=== PATIENT | female | born 1950 | race Caucasian/White ===

== ENCOUNTER → 2017-12-23 12:04 | Outpatient (CLI) | payer MEDICARE, OTHER, SELFPAY ==
--- NOTE | 2017-12-23 12:19 | CT_ITS ---
STUDY: CT ABDOMEN AND PELVIS WITHOUT CONTRAST REASON FOR EXAM: Female, 67 years old. History of hematuria and kidney stones. RADIATION DOSAGE (If Supplied By Facility): CTDIvol = ( 24.18 ) mGy, DLP = ( 1256.43 ) mGycm TECHNIQUE: Transaxial images were obtained from the dome of the diaphragm to the symphysis pubis without oral contrast, and without intravenous contrast. Sagittal and coronal images were reconstructed. Individualized dose optimization techniques were used for this CT. COMPARISON: None. FINDINGS: Focal scarring with bronchiectasis along the posterior medial aspect of the right lower lobe. The visualized portions of the heart are within normal limits. Normal liver. There are surgical clips in the gallbladder fossa consistent with a prior cholecystectomy. Normal spleen. Normal pancreas. There is a small, circumscribed, smooth, low attenuation right adrenal mass, consistent with an adrenal adenoma. This measures 1.2 cm. Normal left adrenal gland. Normal right kidney. Normal left kidney. Normal visualized stomach. Normal small intestine. There are multiple colonic diverticula consistent with diverticulosis. The appendix is visualized and appears normal. There is diffuse atherosclerotic calcification of the abdominal aorta and its major visceral branches, without a demonstrated aneurysm. Normal inferior vena cava. Normal retroperitoneum. Normal urinary bladder. There is absence of the uterus consistent with a prior hysterectomy. There is a small umbilical hernia containing fat. There are mild degenerative changes of the visualized lumbar spine. CT/Abdomen/Pelvis without Cont IMPRESSION: Scarring and bronchiectasis along the posterior medial aspect of the right lower lobe. Findings suggestive by 1.2 cm right adrenal adenoma. Sigmoid diverticulosis. Electronically Signed: Leobardo Mckenzie MD at 12:50 EDT Tel [phone], Service support ,
== END ==
PROVIDERS: Family Provider Nurse Practitioner; PCP Nurse Practitioner; Visit Provider Nurse Practitioner Gerontology
DX: R31.9 Hematuria, unspecified (principal)
CPT/HCPCS: 74176

== ENCOUNTER 2017-12-25 12:31 | Emergency (ER) | payer MEDICARE, OTHER, SELFPAY ==
[2017-12-25 12:33] VITALS: BP 170/63; PULSE 78; RESP 18; TEMP 37.6; O2SAT 91; BMI 42.9
--- NOTE | 2017-12-25 12:58 | RAD_ITS ---
STUDY: X-RAY CHEST REASON FOR EXAM: Female, 67 years old. Dyspnea and shortness of breath TECHNIQUE: Single view of the chest was obtained COMPARISON: 14/11/2016 chest radiograph. FINDINGS: No lung consolidation, pleural effusion or pneumothorax. Cardiac size mildly enlarged. Mild perihilar congestive changes. Apical lung scarring IMPRESSION: Cardiomegaly with mild perihilar congestive changes. Previously noted lung nodule is not well seen on this examination. Electronically Signed: Walter Corbin, at 14:22 EDT Tel , Service support , RAD/Chest 1 View (Portable)
--- NOTE | 2017-12-25 12:59 | EKG12_ITS ---
Test Reason : GEN ILLNESS Blood Pressure : / mmHG Vent. Rate : 072 BPM Atrial Rate : 072 BPM P-R Int : 156 ms QRS Dur : 092 ms QT Int : 424 ms P-R-T Axes : 020 -06 044 degrees QTc Int : 464 ms Normal sinus rhythm Normal ECG Confirmed by ROEL PURDY MD ([id number]), associate entertainment editor RUBI VILLATORO ([id number]) on 12/30/2017 3:06:27 PM Referred By: Yoselin Oconnell Confirmed By:ROEL PURDY MD
[2017-12-25] MEDS: Ketorolac 30 MG/ML Syringe IV (13:27)
[2017-12-25] MEDS: 0.9% Normal Saline 1,000 ML 150 ML IV (13:27)
[2017-12-25] MEDS: Ondansetron 4 MG/2 ML Vial IV (13:27)
[2017-12-25 13:39] LABS: Bacteria 0 SEEN /hpf (None Seen); Mucous, Urine 0 SEEN /hpf (<or=2+); White Blood Cells 0 SEEN /hpf (0-5)
[2017-12-25 13:41] LABS: Color, Urine Yellow (Yellow); Glucose, Dipstick 1000 mg/dl (Normal); Ketone-Dipstick Negative (Negative); Leukocyte Esterase-Dipstick 25 /ul (Negative); Nitrite-Dipstick Negative (Negative); Occult Blood-Urine Negative /ul (Negative); Protein-Dipstick 15 mg/dl (Negative); Urine Bilirubin Dipstick Negative (Negative); Urine Clarity Clear (Clear); Urine Urobilinogen Normal (Normal)
[2017-12-25 13:47] LABS: Carboxyhemoglobin Frac (CO) 2.1 % (0.0-1.5)
[2017-12-25 13:49] LABS: Red Blood Cells-Urine 0-5 SEEN /hpf (0-5); Squamous Epithelial Cells - UA 0-5 SEEN /hpf (5-10)
[2017-12-25 13:53] LABS: Absolute Lymphocyte Count 0.66 X10^3/ul (0.83-4.51); Absolute Neutrophil Count 11.5 X10^3/uL (2.0-7.7); Basophil# 0.02 X10^3/uL; Basophil% 0.2 % (0-1); Hematocrit 41.9 % (37-47); Hemoglobin 13.9 g/dl (12.0-15.0); Lymphocyte # 0.66 X10^3/ul (4.0); Lymphocyte % 5.1 % (19-41); Mean Corp Hgb Conc 33.2 g/gl (32-36); Mean Corpuscular Hgb 29.4 pg (27.0-32.0); Mean Corpuscular Volume 88.6 fL (81-99); Mean Platelet Vol. 11.3 fl (6.2-12.0); Monocyte# 0.72 X10^3/uL; Monocyte% 5.6 % (0-10); Neutrophil # 11.53 X10^3/uL (2.7-7.7); POSITIVE COUNT NO; POSITIVE DIFFERENTIAL NO; POSITIVE MORPHOLOGY NO; Platelet Count 252 K/mm3 (150-450); RBC Distribution Width CV 12.8 % (11.6-14.6); Red Blood Count 4.73 M/mm3 (4.2-5.4); White Blood Count 12.9 K/mm3 (4.4-11.0)
[2017-12-25 13:59] LABS: AST(SGOT) 25 U/L (15-37); Alanine Aminotransfer ALT/SGPT 32 U/L (13-56); Albumin, Serum 3.5 g/dL (3.2-5.0); Alkaline Phosphatase 154 U/L (45-117); Anion Gap 8 (5-15); BUN 12 mg/dL (7-18); BUN/Creat Ratio 16.6 RATIO (10-20); Bilirubin, Direct 0.13 mg/dL (0.00-0.30); Calcium,Total 9.8 mg/dL (8.5-10.1); Chloride 107 mmol/L (98-107); Creatinine, Serum 0.72 mg/dL (0.55-1.02); EST Glomerular Filtration Rate 86 mL/min (>60); Est Glom Filt Rate - Afr Amer 104 mL/min (>60); Estimated Creatinine Clearance 75.75 ml/min; Globulin 4.2 g/dL (2.2-4.2); Glucose 201 mg/dL (74-106); Lipase 126 U/L (73-393); Potassium 3.9 mmol/L (3.5-5.1); Protein, Total 7.7 g/dL (6.4-8.2); Sodium Level 140 mmol/L (136-145)
[2017-12-25 15:06] VITALS: BP 152/68; PULSE 72; RESP 15; O2SAT 95
--- NOTE | 2017-12-25 15:38 | ED.VISSUMM ---
- ER Visit Summary Date of Service: 12/25/17 Chief Complaint: Nausea, vomiting, diarrhea, headache History of Present Illness: The patient is a 67 F recently diagnosed with UTI 3 weeks ago. She is given a 10 day antibiotic. Patient states she has had nausea, vomiting, diarrhea since that time. She also complaining of headache. Patient was seen for follow-up 2 days ago and states her urine was not completely cleared but she was not given a new antibiotic. She was sent for a CT scan. This is reviewed and did not show any acute findings. Patient's mother is also ill and being seen in the. Patient is concerned for carbon monoxide exposure with both of them being ill. She states the fire department did check her house and had normal readings. Past history significant for asthma, COPD, sarcoidosis, diabetes, hypertension, high cholesterol, anxiety, and depression. Physical Examination: Blood pressure is 170/63, temperature 99.7, heart rate 78, respiratory rate 18, pulse ox 91% on room air. Patient sitting upright in bed in no acute distress. She is nontoxic appearing. Head neck examination is unremarkable. Heart is regular rate and rhythm. Lung sounds are diminished at bilateral bases. No wheezes or rhonchi noted. Abdomen is soft and nontender. Hypoactive bowel sounds are noted throughout. Test Results: Portable chest x-ray shows cardiomegaly with mild perihilar congestive changes. EKG is sinus at 72 with no sign of acute ischemia. There is nonspecific diffuse T-wave flattening. Last EKG available for comparison is from 2007. CBC was a white count 12.9 with 89% neutrophils. Chemistry studies reveal glucose of 201, otherwise normal values. LFTs and lipase are normal. Urinalysis shows 0-5 RBCs and 0-5 epithelials. No bacteria noted. Carboxyhemoglobin level is normal at 2.1. Emergency Department Course and Treatment: Patient was given IV fluids, Toradol, and Zofran. On repeat evaluation she reports her headache is significantly improved. Her nausea is also improved. Stool studies were ordered but patient has not been able to provide a sample while here. Repeat vital signs include a blood pressure 152/68 heart rate is 72. Her pulse ox is 95% on room air. At this time patient be discharged with a prescription for Zofran ODT. She is to follow-up with her primary care physician as soon as possible. Treatment Plan: [] Disposition: Discharge Impression: 1. Vomiting, improved 2. Cephalgia, improved This note was generated with [employer] dictation software. It may contain incorrect words, spelling, and punctuation that were not noted in review of the chart prior to signing ED Disposition - Plan for ED Patient: Chief Complaint: Nausea/Vomiting/Diarrhea Referrals: Dafne Jaime [Primary Care Provider] -
--- NOTE | 2017-12-25 15:42 | ED.DCSUM_ITS ---
- ER Visit Summary Date of Service: 12/25/17 Chief Complaint: Nausea, vomiting, diarrhea, headache History of Present Illness: The patient is a 67 F recently diagnosed with UTI 3 weeks ago. She is given a 10 day antibiotic. Patient states she has had nausea , vomiting, diarrhea since that time. She also complaining of headache. Patient was seen for follow-up 2 days ago and states her urine was not completely cleared but she was not given a new antibiotic. She was sent for a CT scan. This is reviewed and did not show any acute findings. Patient's mother is also ill and being seen in the. Patient is concerned for carbon monoxide exposure with both of them being ill. She states the fire department did check her house and had normal readings. Past history significant for asthma, COPD, sarcoidosis, diabetes, hypertension, high cholesterol, anxiety, and depression. Physical Examination: Blood pressure is 170/63, temperature 99.7, heart rate 78 , respiratory rate 18, pulse ox 91% on room air. Patient sitting upright in bed in no acute distress. She is nontoxic appearing. Head neck examination is unremarkable. Heart is regular rate and rhythm. Lung sounds are diminished at bilateral bases. No wheezes or rhonchi noted. Abdomen is soft and nontender. Hypoactive bowel sounds are noted throughout. Test Results: Portable chest x-ray shows cardiomegaly with mild perihilar congestive changes. EKG is sinus at 72 with no sign of acute ischemia. There is nonspecific diffuse T-wave flattening. Last EKG available for comparison is from 2007. CBC was a white count 12.9 with 89% neutrophils. Chemistry studies reveal glucose of 201, otherwise normal values. LFTs and lipase are normal. Urinalysis shows 0-5 RBCs and 0-5 epithelials. No bacteria noted. Carboxyhemoglobin level is normal at 2.1. Emergency Department Course and Treatment: Patient was given IV fluids, Toradol , and Zofran. On repeat evaluation she reports her headache is significantly improved. Her nausea is also improved. Stool studies were ordered but patient has not been able to provide a sample while here. Repeat vital signs include a blood pressure 152/68 heart rate is 72. Her pulse ox is 95% on room air. At this time patient be discharged with a prescription for Zofran ODT. She is to follow-up with her primary care physician as soon as possible. Treatment Plan: [] Disposition: Discharge Impression: 1. Vomiting, improved 2. Cephalgia, improved This note was generated with [employer] dictation software. It may contain incorrect words, spelling, and punctuation that were not noted in review of the chart prior to signing ED Disposition - Plan for ED Patient: Chief Complaint: Nausea/Vomiting/Diarrhea Referrals: Dafne Jaime [Primary Care Provider] -
--- NOTE | 2017-12-25 15:42 | ED.DEP ---
ED Disposition - Plan for ED Patient: Disposition: Home or Assisted Living Chief Complaint: Nausea/Vomiting/Diarrhea Instructions: ED Nausea Vomiting, ED Cephalgia Unspecified Prescriptions: Ondansetron [Zofran Odt] 4 mg PO Q8H PRN PRN #10 tablet PRN Reason: Nausea Referrals: Dafne Jaime [Primary Care Provider] - As soon as possible
== END 2017-12-25 16:12 | disposition home or self-care (01) ==
PROVIDERS: Emergency Provider Emergency Medicine; Family Provider Nurse Practitioner; PCP Nurse Practitioner
DX: R11.2 Nausea with vomiting, unspecified (principal); R51 Headache; R19.7 Diarrhea, unspecified; J44.9 Chronic obstructive pulmonary disease, unspecified; E11.9 Type 2 diabetes mellitus without complications; I10 Essential (primary) hypertension; E78.00 Pure hypercholesterolemia, unspecified; Z79.899 Other long term (current) drug therapy; Z87.891 Personal history of nicotine dependence
CPT/HCPCS: 71045; 80048; 80076; 81001; 82375; 83690; 85025; 93005; 96361; 96374; 96375; 99284; J7030; J2405

== ENCOUNTER 2018-01-22 19:58 | Emergency (ER) | payer MEDICARE, OTHER, SELFPAY ==
[2018-01-22 19:58] VITALS: BP 195/89; PULSE 99; RESP 18; TEMP 37.4; O2SAT 89; BMI 43.2
[2018-01-22 20:06] VITALS: O2SAT 94
--- NOTE | 2018-01-22 20:35 | EKG12_ITS ---
Test Reason : NAUSEA Blood Pressure : / mmHG Vent. Rate : 093 BPM Atrial Rate : 093 BPM P-R Int : 190 ms QRS Dur : 096 ms QT Int : 368 ms P-R-T Axes : 048 -16 027 degrees QTc Int : 457 ms Normal sinus rhythm Normal ECG Confirmed by ROEL PURDY MD ([id number]), design editor RUBI VILLATORO ([id number]) on 01/25/2018 3:09:19 PM Referred By: Confirmed By:ROEL PURDY MD
[2018-01-22] MEDS: 0.9% Normal Saline 1,000 ML 1000 ML IV (20:51)
[2018-01-22] MEDS: Ondansetron 4 MG/2 ML Vial IV (20:52)
[2018-01-22] MEDS: Ketorolac 30 MG/ML Syringe IV (20:52)
[2018-01-22 20:57] LABS: Absolute Lymphocyte Count 0.59 X10^3/ul (0.83-4.51); Absolute Neutrophil Count 8.8 X10^3/uL (2.0-7.7); Basophil# 0.02 X10^3/uL; Basophil% 0.2 % (0-1); Lymphocyte # 0.59 X10^3/ul (4.0); Lymphocyte % 6.1 % (19-41); Mean Corp Hgb Conc 33.3 g/gl (32-36); Mean Corpuscular Hgb 29.8 pg (27.0-32.0); Mean Corpuscular Volume 89.4 fL (81-99); Mean Platelet Vol. 11.1 fl (6.2-12.0); Monocyte# 0.28 X10^3/uL; Monocyte% 2.9 % (0-10); Neutrophil # 8.76 X10^3/uL (2.7-7.7); Neutrophil % 90.8 % (47-70); Platelet Count 233 K/mm3 (150-450); RBC Distribution Width CV 12.8 % (11.6-14.6); RBC Distribution Width SD 41.6 fl (35.1-43.9); White Blood Count 9.7 K/mm3 (4.4-11.0)
[2018-01-22 20:58] LABS: ALB/GLOB Ratio 0.8 RATIO (0.9-2.4); AST(SGOT) 21 U/L (15-37); Alanine Aminotransfer ALT/SGPT 24 U/L (13-56); Albumin, Serum 3.7 g/dL (3.2-5.0); Alkaline Phosphatase 122 U/L (45-117); Anion Gap 8 (5-15); BUN 13 mg/dL (7-18); BUN/Creat Ratio 16.9 RATIO (10-20); Calcium,Total 10.5 mg/dL (8.5-10.1); Chloride 102 mmol/L (98-107); Creatinine, Serum 0.77 mg/dL (0.55-1.02); Differential Indicated SCAN CRITERIA MET; EST Glomerular Filtration Rate 80 mL/min (>60); Est Glom Filt Rate - Afr Amer 97 mL/min (>60); Estimated Creatinine Clearance 68.19 ml/min; Globulin 4.4 g/dL (2.2-4.2); Glucose 203 mg/dL (74-106); Lipase 346 U/L (73-393); POSITIVE COUNT NO; POSITIVE DIFFERENTIAL YES; POSITIVE MORPHOLOGY NO; Potassium 3.8 mmol/L (3.5-5.1); Protein, Total 8.1 g/dL (6.4-8.2); Sodium Level 136 mmol/L (136-145)
[2018-01-22 21:07] LABS: Bacteria 0 SEEN /hpf (None Seen); Mucous, Urine 0 SEEN /hpf (<or=2+); Red Blood Cells-Urine 0 SEEN /hpf (0-5); Squamous Epithelial Cells - UA 0 SEEN /hpf (5-10)
[2018-01-22 21:13] LABS: Color, Urine Yellow (Yellow); Glucose, Dipstick Normal (Normal); Ketone-Dipstick 15 mg/dl (Negative); Leukocyte Esterase-Dipstick Negative /ul (Negative); Nitrite-Dipstick Negative (Negative); Occult Blood-Urine Negative /ul (Negative); Protein-Dipstick Negative (Negative); Specific Gravity, Urine 1.015 (1.002-1.030); Urine Bilirubin Dipstick Negative (Negative); Urine Clarity Clear (Clear); Urine Urobilinogen Normal (Normal)
[2018-01-22 21:35] LABS: White Blood Cells 0-5 SEEN /hpf (0-5)
[2018-01-22 21:37] LABS: Differential Comment SCANNED; Platelet Estimate ADEQUATE (ADEQ)
[2018-01-22 22:00] VITALS: BP 173/77; PULSE 94; RESP 17; O2SAT 95
[2018-01-22] MEDS: hydrALAZINE 20 MG/ML Vial IV (22:07)
[2018-01-22] MEDS: 0.9% Normal Saline 1,000 ML 125 ML IV (22:13)
[2018-01-22 22:14] VITALS: BP 148/71
--- NOTE | 2018-01-22 23:21 | ED.DCSUM_ITS ---
- ER Visit Summary Date of Service: 01/22/18 Chief Complaint: Headache and vomiting History of Present Illness: The patient is a 67 F who states that today when she got up she generally felt poor. She had a generalized headache felt nauseated. She states that she went to bed feeling okay. She notes some chills and some sweats felt like she might have some diarrhea noting very active bowel. The patient states that tonight she began retching. Squad was called. Patient notes her blood pressure is not controlled and she has been working with her doctor for this. Physical Examination: 195/89 temperature 99.4 heart rate of 99 respirations are 18 pulse ox 94% on 2 L Gen: Well-nourished well-developed patient is retching Head: Normocephalic atraumatic Eyes: Perrl EOMI ENT: TMs clear no rhinorrhea moist mucous membranes Neck: Supple no lymphadenopathy no JVD nontender CVS: Regular rate rhythm no murmurs normal S1-S2 Respiratory: No distress clear to auscultation bilaterally chest nontender Abdomen: Soft nontender nondistended normal bowel sounds no masses Back: Nontender Extremity: Nontender no edema Skin: Normal color no rash Neuro: alert orientated ?3 CN II-XII intact normal strength sensation reflexes cerebellar Test Results: CBC chemistries liver lipase negative. EKG sinus rhythm rate of 93 Emergency Department Course and Treatment: Patient received IV fluids Zofran Toradol and hydralazine. Her blood pressure is down. I think the patient is safe for discharge. Her headache is improved. She needs to speak with her doctor regarding blood pressure control. Impression: 1. Headache 2. Hypertension This note was generated with [employer] dictation software. It may contain incorrect words, spelling, and punctuation that were not noted in review of the chart prior to signing ED Disposition - Plan for ED Patient: Disposition: Home or Assisted Living Chief Complaint: Nausea/Vomiting Instructions: ED Hypertension Conf Out Of Control, ED Nausea Vomiting Prescriptions: Ondansetron [Zofran Odt] 4 mg PO Q8H PRN PRN #10 tab PRN Reason: Nausea Referrals: Dafne Jaime [Primary Care Provider] - As soon as possible
[2018-01-23] MEDS: Ondansetron 4 MG/2 ML Vial IV (00:20)
[2018-01-23 00:43] VITALS: BP 164/67; PULSE 82; RESP 18; O2SAT 96
== END 2018-01-23 00:44 | disposition home or self-care (01) ==
PROVIDERS: Emergency Provider Emergency Medicine; Family Provider Nurse Practitioner; PCP Nurse Practitioner
DX: I10 Essential (primary) hypertension (principal); R51 Headache; R11.2 Nausea with vomiting, unspecified; E78.00 Pure hypercholesterolemia, unspecified; E66.9 Obesity, unspecified; Z79.899 Other long term (current) drug therapy
CPT/HCPCS: 80053; 81001; 83690; 84484; 85025; 93005; 96361; 96374; 96375; 99285; J7030; A4216; J2405

== ENCOUNTER → 2018-05-05 06:51 | Outpatient (CLI) | payer MEDICARE, OTHER, SELFPAY ==
--- NOTE | 2018-05-05 12:57 | SPIR ---
Spirometry PFT Testing Spirometry PFT Testing: INTRODUCTION: The patient is a 67-year-old female that presents for spirometry testing secondary to a diagnosis of shortness of breath. Respiratory therapy reports good patient effort. Bronchodilators were used during testing. INTERPRETATION: Forced expiration spirometry demonstrates no evidence of a large airways obstructive ventilatory defect. There was no significant response to aerosolized bronchodilators. Spirograms are of good quality and plateau normally. IMPRESSION: Grossly normal spirometry testing.
== END ==
PROVIDERS: Family Provider Nurse Practitioner; PCP Nurse Practitioner; Visit Provider Nurse Practitioner
DX: J44.9 Chronic obstructive pulmonary disease, unspecified (principal)
CPT/HCPCS: 94060

== ENCOUNTER → 2018-05-06 14:13 | Outpatient (CLI) | payer MEDICARE, OTHER, SELFPAY ==
--- NOTE | 2018-05-06 14:20 | CT_ITS ---
STUDY: LOW DOSE CT LUNG CANCER SCREENING REASON FOR EXAM: Female, 67 years old. OBSTRUCTIVE PULMONARY DISEASE, PT STATED HX OF SMOKING UP TO 4 PACKS PER DAY X40+ years, QUIT [id number] AGO, COPD, ASTHMA RADIATION DOSAGE (If Supplied By Facility): CTDIvol = ( 3.40 ) mGy, DLP = ( 108.91 ) mGycm TECHNIQUE: No contrast was administered. Low dose technique was utilized (average mAS-38 and kVp 120). 1.25 mm axial source images with a slice interval of 1.25-mm were reconstructed in lung windows. 2.5 mm axial source images with a slice interval of 2.5-mm were reconstructed in lung windows. 5.0 mm axial source images with a slice interval of 5.0-mm were reconstructed in soft tissue windows. Nodule measured using lung windows on PACS and/or independent workstation with automated measurement of minimum and maximum diameter. Nodule measurement reported as average diameter rounded to the nearest whole number. Growth is defined as an increase ins size of greater than 1.5 mm. COMPARISON: None. NODULES: There is hyperinflation in both lungs suggesting COPD. There is no demonstrated pleural abnormality. Normal heart and pericardium. Normal mediastinum. Normal hilar regions. Normal unenhanced pulmonary arteries. Normal aorta arch and descending thoracic aorta. There are multi-level degenerative changes of the thoracic spine. There is no demonstrated abnormality of the visualized upper abdomen. CT/Chest without Contrast IMPRESSION: Lung-RADS category 2. Benign finding Recommendation: Routine screening CT scan in one year. IMPORTANT NOTES FOR USE: ACR Lung-RADS Version 1.0 Assessment Categories Release Date: October 23, 2013 Category: Coded 0-4 bases on nodule(s) with highest degree of suspicion. Negative screen is defined as categories 1 and 2; a positive screen is defined as categories 3 and 4. Category 3 and 4A nodules that are unchanged on interval CT should be coded as category 2, and individuals returned to screening in 12 months. Category 4X: Category 3 or 4 nodules with additional imaging findings that increase the suspicion of lung cancer, such as spiculation, GGN that doubles in size in 1 year, enlarged lymph notes, etc. Category Modifiers: S (significant finding unrelated to lung cancer) and C (prior history of treated lung cancer) may be added to the 0-4 Lung-RADS Electronically Signed: Marine Tolliver MD at 8:09 EST Tel , Service support ,
== END ==
PROVIDERS: Family Provider Nurse Practitioner; PCP Nurse Practitioner; Referring Provider Nurse Practitioner; Visit Provider Nurse Practitioner
DX: J44.9 Chronic obstructive pulmonary disease, unspecified (principal)
CPT/HCPCS: 71250

== ENCOUNTER → 2018-07-19 09:53 | Outpatient (CLI) | payer MEDICARE, OTHER, SELFPAY ==
--- NOTE | 2018-07-19 09:57 | BI_ITS ---
MAMMOGRAPHY - BILATERAL SCREENING REASON FOR EXAM: Female, 67 years old. Routine annual screening examination. PERTINENT HISTORY: Non-contributory. TECHNIQUE: Digital bilateral breast eris (3D mammographic acquisition) in the CC and MLO projections. 2-D mediolateral oblique (MLO) and craniocaudad (CC) views of both breasts were obtained. CAD: Full Field Digital Mammography with Computer Added Detection was performed. COMPARISON: Comparison is made with prior examination dated May 05, 2013 and April 12, 2012. FINDINGS: Breast Composition: There are scattered areas of fibroglandular density. There are no dominant masses or suspicious calcifications. Stable 5.5 mm well-defined nodule with a central fatty hilum in the mid slightly outer aspect of the right breast. This most likely represents a small lymph node. No other significant abnormalities are identified. There has been no significant change since the prior study. BI/SCREENING MAMM (CAD), BILAT IMPRESSION: Stable bilateral screening mammogram. Yearly follow-up mammogram recommended. (A) ASSESSMENT CATEGORY: BIRADS Category 2: Benign. A letter regarding these results will be sent to the patient by the facility within 30 days. Approximately 10% of breast cancers are not detected by mammography. A normal mammogram should not delay biopsy of a clinically suspicious abnormality. [id number] Electronically Signed: Leobardo Mckenzie MD at 12:35 EST Tel [phone], Service support ,
--- NOTE | 2018-07-19 10:20 | BD_ITS ---
STUDY: DUAL ENERGY X-RAY ABSORPTIOMETRY / DXA REASON FOR EXAM: Female, 67 years old. The patient is postmenopausal. Loss of height. TECHNIQUE: Bone Mineral Density (BMD) measurements of lumbar spine and bilateral hips were obtained. COMPARISON: Comparison is made with prior study dated April 12, 2012. FINDINGS: Lumbar Spine (L1-L4): g/cm2 (0.997) / T-score (-1.7) / Z-score (-0.1) Findings are suggestive of osteopenia with a moderate fracture risk. Left Femur Total: g/cm2 (1.033) / T-score (0.2) / Z-score (1.4) Left Femoral Neck: g/cm2 (0.930) / T-score (-0.8) / Z-score (0.7) Right Femur Total: g/cm2 (1.108) / T-score (0.8) / Z-score (2.0) Right Femoral Neck: g/cm2 (0.896) / T-score (-1.0) / Z-score (0.5) The T-Scores on the most recent prior examination were: Lumbar Spine (L1-L4): There has been worsening of bone density since the previous examination. Left Femur Total: which represents a worsening of 11%. Right Femur Total: which represents a worsening of 7.8%. BD/Dexa Bone Density Study IMPRESSION: The patient is considered osteopenic as outlined below according to World Arun Organization (WHO) criteria with a moderate fracture risk. There has been worsening of bone density since the previous examination. Reference Information: The T-score is the number of standard deviations above or below the standard which is normal for young adults at their peak bone mineral density. The World Health Organization (WHO) interprets the T-scores as follows: Above -1 Normal bone density Between -1 and -2.5 Osteopenia Equal to / or below -2.5 Osteoporosis As a practical clinical guideline, osteopenia may be graded as follows: Mild -1 through -1.5 Moderate -1.6 through -2.0 Severe -2.1 through -2.4 The Z-score is the number of standard deviations above or below age-matched controls. A Z-score of less than -1.5 would be considered abnormal. References: 1. NIH Osteoporosis and Related Bone Diseases http://www.osteo.org 2. International Society for Clinical Densitometry http://www.iscd.org 3. National Osteoporosis Foundation http://www.nof.org Electronically Signed: Leobardo Mckenzie MD at 11:25 EST Tel [phone], Service support ,
--- OUTSIDE RECORDS SUMMARY | 2018-09-20 11:46 | XMS RPT_ITS | Continuity of Care Document ---
:1950 Author Organization [facility] Address [address] [place] [address] Phone Care Team Providers Name Role Phone Addison LADONNADafne Unavailable Juan Catherine Unavailable Rogelio Granado Unavailable [facility] Unavailable Lindsey Cheek Unavailable Unavailable Gloria Hammer LPN Unavailable Unavailable Yuval Rodas Unavailable Unavailable SHIRA Larsen Unavailable Unavailable Unavailable Unavailable Problems Name Dates Details Acne (L70.9, 706.1) Status: Active Acute sinusitis (J01.90, 461.9) 16-Dec-2010 Status: Active Adrenal adenoma, right (D35.01, 227.0) Status: Active Allergic rhinitis (J30.9, 477.9) Status: Active Anxiety (F41.9, 300.00) Status: Active Anxiety (F41.9, 300.00) Status: Active Back pain (M54.9, 724.5) Comments: hurts with breathing inspirataion, will check ct and labs Status: Active Benign essential hypertension (I10, 401.1) Comments: chronic stable-continue present regimen Status: Active BMI 40.0-44.9, adult (Z68.41, V85.41) Status: Active BMI 45.0-49.9, adult (Z68.42, V85.42) Status: Active Bronchitis, acute (J20.9, 466.0) 15-Jul-2010 Status: Active Chronic obstructive pulmonary disease, unspecified COPD type (J44.9, 496) Comments: had PFTS in past. seen sibilia in past. Adding PFT's and to see Sibilia Status: Active Colon cancer screening (Renamed from Encounter for screening for malignant neoplasm of colon) (Z12.11, V76.51) Status: Active COPD with acute exacerbation (Renamed from Acute exacerbation of chronic obstructive airways disease) (J44.1, 491.21) Status: Active Cough (R05, 786.2) Status: Active Cough (R05, 786.2) Status: Active Cough (R05, 786.2) 25-Sep-2011 Status: Active Current nonsmoker (Z78.9, V49.89) Status: Active Deliveries (Parity) Comments: 3 Status: Active Depression (F32.9, 311) Comments: Broken hearted, Went to behavioral health she will go [facility], for counseling in 3 weeks, mom is home with her tho Status: Active Diabetes mellitus type II, controlled, with no complications (Renamed from Controlled type 2 diabetes mellitus without complication) (E11.9, 250.00) Comments: a1C improving to 6.3, continue current plan, unable to take victoza too expensive so quit taking, only on glyburide has medical mutual, not able to afford byetta. Allergic to Metformin.Has no more jardi ance left. Took mothers januvia for awhile.Adding victoza and glyburideNow sugars improving Status: Active DIABETES MELLITUS WITHOUT MENTION OF COMPLICATION; TYPE II OR UNSPECIFIED TYPE, NOT STATED UNCONTROLLED (E11.9, 250.00) Status: Active Diarrhea (R19.7, 787.91) Comments: BRAT diet take probiotic Status: Active Eczema (L30.9, 692.9) Status: Active Elevated blood pressure reading (R03.0, 796.2) Comments: on prednisone Status: Active Elevated WBC count (D72.829, 288.60) Status: Active Encounter for annual general medical examination with abnormal findings in adult (Z00.01, V70.0) Status: Active Encounter for gynecological examination without abnormal finding (Z01.419, V72.31) Status: Active Encounter for screening mammogram for breast cancer (Z12.31, V76.12) Status: Active Enlarged lymph nodes, unspecified (R59.1, 785.6) Status: Active Family history of aneurysm (Z82.49, V19.8) Status: Active Fatigue (R53.83, 780.79) Comments: Care taking of mother up at night q 2-3 hours feelings of exhaustion but sleep study machine helping Status: Active Folliculitis (L73.9, 704.8) Comments: get antibacterial soap, history of staph try chlorox bath Status: Active Hip pain, right (M25.551, 719.45) Status: Active Hypercalcemia (E83.52, 275.42) Comments: para thormone normal, check D, mammogram in process Jun Status: Active Hypercalcemia (E83.52, 275.42) Status: Active Hypercholesteremia (E78.00, 272.0) Comments: only on statin, not fenofibrate Status: Active Hypertension (I10, 401.9) Comments: stay on metoprolol and HctZ, take irbesartan 2 of 75mg Status: Active Hypoglycemia (E16.2, 251.2) Comments: came into Ov with nausea and not feeling well , BS was 66 was given glucose and IV fluid decreased victoza to .6. Status: Active Hypothyroidism (E03.9, 244.9) Comments: on synthroid Status: Active Low HDL (under 40) (E78.6, 272.5) Status: Active Meralgia paresthetica (G57.10, 355.1) Status: Active Nausea (R11.0, 787.02) Comments: in office BS 66, feeling nauseated, gave dextrose Status: Active Nausea & vomiting (R11.2, 787.01) Comments: suspect from mucus drainage Status: Active Need for prophylactic vaccination and inoculation against influenza (Z23, V04.81) Status: Active Nonsmoker (Z78.9, V49.89) Status: Active Nonsmoker (Z78.9, V49.89) Status: Active Obesity (E66.9, 278.00) Status: Active Osteopenia (M85.80, 733.90) Comments: improved Status: Active Other and unspecified hyperlipidemia (E78.5, 272.4) Status: Active Palpitations (R00.2, 785.1) Comments: doign better think anxiety -- keep working on diet and exercise Status: Active Postmenopausal (Renamed from Postmenopausal status) (Z78.0, V49.81) Status: Active Pregnancies () Comments: 3 Status: Active 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 exacerbation Status: Active Sciatica (M54.30, 724.3) Status: Active screening Status: Active screening Status: Active screening Status: Active Sleep apnea (G47.30, 780.57) Comments: seeing Sibilia to get cpap, quit breathing 109 times and turned blue with nasal cpap improving Status: Active Sleep disorder (G47.9, 780.50) Status: Active Unspecified asthma with (acute) exacerbation (J45.901, 493.92) Status: Active Unspecified Diagnosis Status: Active Unspecified Diagnosis Status: Active Unspecified Diagnosis Status: Active Unspecified Diagnosis Status: Active Unspecified Diagnosis Status: Active Unspecified Diagnosis Status: Active Urinary tract infection in female (N39.0, 599.0) Status: Active Vitamin D deficiency, unspecified (E55.9, 268.9) Comments: taking 2000 bid Status: Active Wheezing (R06.2, 786.07) Status: Active Medications Name Dates Details Albuterol Sulfate (2.5 MG/3ML) 0.083% Inhalation Nebulization Solution 1 (one) Nebulized Soln q 4-6 hours prn for 90 days Refills: 3 Ordered:18-Nov-2016 Dafne Jaime CNP, CNP, Mary E Start : 18-Nov-2016 Active CeleXA 40 MG Oral Tablet 1 (one) Tablet daily for 90 days Quantity: 90 {Tablet} Refills: 3 Ordered:17-May-2018 Dafne Jaime CNP, CNP, Mary E Start : 17-May-2018 Active Desoximetasone 0.05 % External Cream 1 Cream apply q 3 days sparingly prn for 90 days Quantity: 3 {Tube} Refills: 3 Ordered:19-Aug-2016 Dafne Jaime CNP, CNP, Mary E Start : 19-Aug-2016 Active Desoximetasone 0.05 % External Cream 1 Cream apply q 3 days sparingly prn for 90 days Quantity: 3 {Each} Refills: 1 Ordered:19-Aug-2016 Addison DOUGHERTY Dafne BOLDENpatrick DOUGHERTY Dafne Mota Start : 19-Aug-2016 Active FreeStyle Lancets Miscellaneous 1 (one) Misc Misc bid for 0 days Quantity: 180 {Strip} Refills: 3 Ordered:12-Jul-2017 Yuval Rodas Start : 12-Jul-2017 Active FreeStyle Lancets Miscellaneous 1 (one) Misc Misc bid for 0 days Quantity: 180 {QS} Refills: 3 Ordered:12-Jul-2017 Yuval Rodas Start : 12-Jul-2017 Active FreeStyle Lite Device 1 (one) Device Device bid for 0 days Quantity: 1 Kit Refills: 1 Ordered:12-Jul-2017 Yuval Rodas Start : 12-Jul-2017 Active FreeStyle Lite Test In Vitro Strip 1 (one) Strip bid for 0 days Quantity: 180 {Strip} Refills: 3 Ordered:12-Jul-2017 Addison DOUGHERTY Dafne Kriss DOUGHERTY Dafne Mota Start : 12-Jul-2017 Active FreeStyle Lite Test In Vitro Strip 1 (one) Strip bid for 0 days Quantity: 180 {Strip} Refills: 3 Ordered:12-Jul-2017 Addison DOUGHERTY Dafne Kriss DOUGHERTY Dafne Mota Start : 12-Jul-2017 Active GlyBURIDE 5 MG Oral Tablet 2 (two) Tablet BID for 90 days Quantity: 180 {QS} Refills: 3 Ordered:31-Dec-2017 Addison DOUGHERTY Dafne BOLDENpatrick DOUGHERTY Dafne Mota Start : 31-Dec-2017 Active GlyBURIDE 5 MG Oral Tablet 2 (two) Tablet BID for 0 days Quantity: 120 {Tablet} Refills: 6 Ordered:31-Dec-2017 Addison DOUGHERTY Dafne BOLDENpatrick DOUGHERTY Dafne Mota Start : 31-Dec-2017 Active HydroCHLOROthiazide 12.5 MG Oral Capsule 1 (one) Capsule qam for 90 days Quantity: 90 {Capsule} Refills: 3 Ordered:17-May-2018 Addison DOUGHERTY Dafne BOLDENpatrick DOUGHERTY Dafne Mota Start : 17-May-2018 Active Irbesartan 75 MG Oral Tablet 2 (two) Tablet qhs for 90 days Quantity: 90 {Tablet} Refills: 3 Ordered:17-May-2018 Dafne Jaime CNP, CNP, Mary E Start : 17-May-2018 Active Levothyroxine Sodium 150 MCG Oral Tablet 1 (one) Tablet daily for 90 days Quantity: 90 {Tablet} Refills: 3 Ordered:17-May-2018 Addison DOUGHERTY, Dafne Casper CNP Start : 17-May-2018 Active Levothyroxine Sodium 150 MCG Oral Tablet 1 (one) Tablet daily for 90 days Quantity: 90 {QS} Refills: 3 Ordered:17-May-2018 Dafne Jaime CNP, CNP, Mary E Start : 17-May-2018 Active Metoprolol Succinate ER 100 MG Oral Tablet Extended Release 24 Hour 1 (one) Tablet daily for 90 days Quantity: 90 {Tablet} Refills: 3 Ordered:17-May-2018 Dafne Jaime CNP, CNP, Mary E Start : 17-May-2018 Active Qvar 40 MCG/ACT Inhalation Aerosol Solution 2 (two) Puff Puff bid for 0 days Quantity: 1 {Inhaler} Refills: 3 Ordered:17-Feb-2016 Gloria Hammer LPN Start : 17-Feb-2016 Active Simvastatin 40 MG Oral Tablet 1 (one) Tablet daily for 90 days Quantity: 90 {Tablet} Refills: 3 Ordered:17-May-2018 Dafne Jaime CNP, CNP, Mary E Start : 17-May-2018 Active Simvastatin 40 MG Oral Tablet 1 (one) Tablet daily for 0 days Quantity: 90 {Tablet} Refills: 0 Ordered:17-May-2018 Dafne Jaime CNP, CNP, Mary E Start : 17-May-2018 Active Victoza 18 MG/3ML Subcutaneous Solution Pen-injector 0.6 Pre-filled Pen Syringe daily for 90 days Quantity: 1 {Box} Refills: 3 Ordered:17-May-2018 Dafne Jaime CNP, CNP, Mary E Start : 17-May-2018 Active Comments:take 0.6 Victoza 18 MG/3ML Subcutaneous Solution Pen-injector 0.6 Pre-filled Pen Syringe daily for 90 days Quantity: 1 {Box} Refills: 6 Ordered:17-May-2018 Dafne Jaime CNP, CNP, Mary E Start : 17-May-2018 Active Comments:Start 0.6mg x 1 week, then 1.2 x a week, then 1.8 daily Vitamin D3 Super Strength 2000 UNIT Oral Capsule 1 (one) Capsule bid for 90 days Quantity: 120 {Capsule} Refills: 0 Ordered:17-May-2018 Addison DOUGHERTY, Dafne Monterroso CNP, Dafne Mota Start : 17-May-2018 Active Accu-Chek Saira In Vitro Strip uad Strip bid for 0 days Quantity: 180 {Strip} Refills: 3 Ordered:27-Jan-2016 MARKIE Hayden Start : 24-Jan-2016 End : 27-Jan-2016 Inactive Accu-Chek Saira In Vitro Strip uad Strip bid for 0 days Quantity: 180 {QS} Refills: 3 Ordered:27-Jan-2016 MARKIE Hayden Start : 24-Jan-2016 End : 27-Jan-2016 Inactive AMOXIL, 875MG (Oral Tablet) 1 (one) Tablet Twice daily for 0 days Quantity: 28 {Tablet} Refills: 0 Ordered:14-Jun-2006 Belen Pickett Start : 14-Jun-2006 End : 20-Oct-2006 Inactive Atenolol 50 MG Oral Tablet 1 (one) Tablet one in am, 2 in pm for 90 days Quantity: 120 {Tablet} Refills: 3 Ordered:24-Mar-2017 Addison DOUGHERTY, Dafne Monterroso CNP, Dafne Mota Start : 24-Mar-2017 End : 24-Mar-2017 Inactive Atenolol 50 MG Oral Tablet 1 (one) Tablet one in am, 2 in pm for 90 days Quantity: 180 {Tablet} Refills: 3 Ordered:24-Mar-2017 Addison DOUGHERTY, Dafne Monterroso CNP, Dafne Mota Start : 24-Mar-2017 End : 24-Mar-2017 Inactive AUGMENTIN, 875-125MG (Oral Tablet) 1 (one) Tablet bid/PRN for 0 days Quantity: 28 {Tablet} Refills: 0 Ordered:01-Jul-2011 Ivanna Maddox Start : 31-Mar-2011 End : 01-Jul-2011 Inactive AVAPRO, 300MG (Oral Tablet) 1 Tablet Daily for 28 days Quantity: 28 {Tablet(s)} Refills: 0 Ordered:23-May-2007 Dary Solano Start : 23-May-2007 End : 23-May-2007 Inactive AVELOX, 400MG (Oral Tablet) 1 (one) Tablet Daily for 0 days Quantity: 10 {Tablet} Refills: 0 Ordered:16-Dec-2010 Virgen Real LPN Start : 15-Jul-2010 End : 16-Dec-2010 Inactive Bacitracin Zinc 500 UNIT/GM External Ointment 1 (one) Application Application daily as directed for 0 days Quantity: 5 {Applicator} Refills: 0 Ordered:19-Jan-2018 MARKIE Hayden Start : 12-Jul-2017 End : 19-Jan-2018 Inactive CEFADROXIL, 500MG (Oral Capsule) 1 (one) Capsule bid for 10 days Quantity: 20 {Capsule} Refills: 0 Ordered:15-Jun-2014 Tgezraalcon [employer]OOK SERVER, Dafne Kriss SPORTS BOOK SERVER, Radha Start : 15-Jun-2014 End : 25-Jun-2014 Inactive Cheratussin AC 100-10 MG/5ML Oral Solution 1 (one) Solution Solution 1-2 tsp every 6 hours prn for 0 days Quantity: 8 {Fluid_Ounce} Refills: 0 Ordered:27-Jan-2016 MARKIE Hayden Start : 19-Aug-2015 End : 27-Jan-2016 Inactive Comments:eight CIPRO, 500MG (Oral Tablet) 1 (one) Tablet bid for 0 days Quantity: 28 {Tablet} Refills: 0 Ordered:16-Dec-2010 Virgen Real LPN Start : 12-May-2010 End : 16-Dec-2010 Inactive CRESTOR, 10MG (Oral Tablet) 1 Tablet Daily for 28 days Quantity: 28 {Tablet} Refills: 0 Ordered:23-May-2007 Dary Solano Start : 23-May-2007 End : 23-May-2007 Inactive Comments: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 CRESTOR, 10MG (Oral Tablet) 1 tab Tablet qd for 0 days Refills: 0 Ordered:27-Jul-2008 Ivanna Maddox End : 27-Jul-2008 Inactive FENOFIBRATE MICRONIZED, 134MG (Oral Capsule) 1 qd for 0 days Refills: 0 Ordered:16-Dec-2010 Virgen Real LPN End : 16-Dec-2010 Inactive FLEXERIL, 10MG (Oral Tablet) 1 Tablet qhs prn for 0 days Quantity: 30 {Tablet} Refills: 0 Ordered:16-Dec-2010 Virgen Real LPN Start : 12-May-2010 End : 16-Dec-2010 Inactive FreeStyle Unistick II Lancets Miscellaneous 1 (one) Misc Misc bid for 0 days Quantity: 100 {Strip} Refills: 3 Ordered:19-Jan-2018 MARKIE Hayden Start : 27-Jan-2016 End : 19-Jan-2018 Inactive Irbesartan 75 MG Oral Tablet 1 (one) Tablet bid for 0 days Quantity: 180 {Tablet} Refills: 3 Ordered:09-Mar-2018 Addison DOUGHERTY, Dafne Monterroso CNP, Dafne Mota Start : 02-Feb-2018 End : 09-Mar-2018 Inactive Jardiance 10 MG Oral Tablet 1 (one) Tablet Tablet qam for 0 days Quantity: 30 {Tablet} Refills: 3 Ordered:31-Dec-2017 Addison DOUGHERTY, Dafne Monterroso CNP, Dafne Mota Start : 13-Oct-2017 End : 31-Dec-2017 Inactive Levaquin 500 MG Oral Tablet 1 Tablet qd for 10 days Quantity: 10 {Tablet} Refills: 0 Ordered:18-Nov-2016 Addison DOUGHERTY, Dafne Monterroso CNP, Dafne Mota Start : 18-Nov-2016 End : 28-Nov-2016 Inactive LEXAPRO, 10MG (Oral Tablet) 1 Tablet Daily for 0 days Quantity: 90 {Tablet} Refills: 3 Ordered:20-Oct-2006 Jackie Christina DO Start : 20-Oct-2006 End : 11-Apr-2007 Inactive Losartan Potassium 100 MG Oral Tablet 1 (one) Tablet daily for 0 days Quantity: 30 {Tablet} Refills: 3 Ordered:19-Jan-2018 MARKIE Hayden Start : 13-Oct-2017 End : 19-Jan-2018 Inactive MUCINEX, 600MG (Oral Tablet Extended Release 12 Hour) 1 (one) Tablet ER 12HR BID for 0 days Refills: 0 Ordered:19-Nov-2009 Ivanna Maddox Start : 19-Apr-2009 Inactive Nitrofurantoin Monohyd Macro 100 MG Oral Capsule 1 (one) Capsule PO BID for 10 days Quantity: 20 {Capsule} Refills: 0 Ordered:13-Dec-2017 Yoselin Oconnell Start : 13-Dec-2017 End : 23-Dec-2017 Inactive Ocuflox 0.3 % Ophthalmic Solution 1-2 Metric Drop Metric Drop Q 2hours x 2 days, and then QID x 5 days for 0 days Quantity: 1 {Bottle} Refills: 0 Ordered:19-Jan-2018 MARKIE Hayden Start : 09-Dec-2017 End : 19-Jan-2018 Inactive Pen [place] 31G X 6 MM Miscellaneous uad Misc bid for 90 days Refills: 3 Ordered:13-Oct-2017 Gloria Hammer LPN Start : 22-Jan-2016 End : 13-Oct-2017 Inactive PREDNISOLONE ACETATE, 1% (Ophthalmic Suspension) 2 (two) Drop(s) qid for 0 days Quantity: 1 {Tube(s)} Refills: 0 Ordered:25-Sep-2011 Virgen Real LPN Start : 28-Jul-2011 End : 25-Sep-2011 Inactive PREDNISONE (NIC), 10MG (Oral Tablet) 1 (one) Tablet Tablet UAD for 10 days Quantity: 20 {Tablet} Refills: 0 Ordered:19-Aug-2015 Addison DOUGHERTY, Dafne Monterroso CNP, Radha Start : 19-Aug-2015 End : 29-Aug-2015 Inactive Comments:2 tablets BID for 2 days1 tablet BID for 4 days1 tablet Qd for 4 days Prodigy Lancing Device Miscellaneous 1 (one) Misc Misc bid for 90 days Refills: 3 Ordered:27-Jan-2016 MARKIE Hayden Start : 22-Jan-2016 End : 27-Jan-2016 Inactive Comments:lancet device Prodigy No Coding Blood Gluc In Vitro Strip 1 (one) Strip Strip bid for 90 days Refills: 3 Ordered:27-Jan-2016 MARKIE Hayden Start : 22-Jan-2016 End : 27-Jan-2016 Inactive Prodigy Twist Top Lancets 28G Miscellaneous 1 (one) Misc Misc bid for 90 days Refills: 3 Ordered:27-Jan-2016 MARKIE Hayden Start : 22-Jan-2016 End : 27-Jan-2016 Inactive RELENZA DISKHALER, 5MG/BLISTER (Inhalation Aerosol Powder Breath Activated) 2 (two) Aero Pow Br Act Daily for 0 days Quantity: 1 {Aero_Pow_Br_Act} Refills: 0 Ordered:16-Dec-2010 Virgen Real LPN Start : 19-Apr-2009 End : 16-Dec-2010 Inactive Spiriva HandiHaler 18 MCG Inhalation Capsule 1 Capsule daily for 0 days Quantity: 90 {Capsule} Refills: 3 Ordered:27-Jan-2016 MARKIE Hayden Start : 24-Jan-2016 End : 27-Jan-2016 Inactive Spiriva HandiHaler 18 MCG Inhalation Capsule 1 Capsule daily for 90 days Quantity: 90 {Capsule} Refills: 3 Ordered:27-Jan-2016 MARKIE Hayden Start : 24-Jan-2016 End : 27-Jan-2016 Inactive TESSALON, 200MG (Oral Capsule) 1 (one) Capsule TID/PRN for 0 days Quantity: 30 {Capsule} Refills: 0 Ordered:19-Nov-2009 Ivanna Maddox Start : 22-Apr-2009 Inactive TRAZODONE HCL, 50MG (Oral Tablet) 1/2- 1 Tablet at hs prn for 0 days Quantity: 30 {Tablet} Refills: 3 Ordered:01-Jul-2011 Ivanna Maddox Start : 27-Aug-2010 End : 01-Jul-2011 Inactive TRICOR, 145MG (Oral Tablet) 1 tab qd for 0 days Refills: 0 Ordered:23-Oct-2008 Yoselin Larsen LPN End : 23-Oct-2008 Inactive TRICOR, 145MG (Oral Tablet) 1 Tablet daily for 0 days Quantity: 90 {Tablet} Refills: 3 Ordered:03-Feb-2012 Alisha Hanks LPN Start : 24-Aug-2011 End : 03-Feb-2012 Inactive VITAMIN D, [id number] (Oral Capsule) 1 (one) Capsule q week for 0 days Quantity: 12 {Capsule} Refills: 0 Ordered:19-Nov-2009 Ivanna Maddox Start : 19-Aug-2009 Inactive VITAMIN D3, 1000UNIT (Oral Tablet) 1 tab bid for 0 days Refills: 0 Ordered:19-Nov-2009 Kar Maddoxctive WELLBUTRIN XL, 150MG (Oral Tablet Extended Release 24 Hour) 1 Daily for 0 days Refills: 0 Ordered:27-Sep-2006 Anahi Alex DO End : 12-Mar-2006 Inactive Zithromax Z-Nic 250 MG Oral Tablet 1 (one) Tablet TAD for 0 days Quantity: 1 {Package} Refills: 0 Ordered:09-Dec-2017 Yuval Rodas Start : 13-Oct-2017 End : 09-Dec-2017 Inactive ACCU-CHEK (In Vitro Diagnostic Test) BID for 0 days Refills: 0 Ordered:06-Jul-2008 Ivanna Maddox Start : 06-Jul-2008 End : 06-Jul-2008 Discontinued Comments:This order discontinued per [facility]. ALBUTEROL, 90MCG/ACT (Inhalation Aerosol Solution) 2 Twice daily for 0 days Refills: 0 Ordered:27-Apr-2012 Ivanna Maddox End : 27-Apr-2012 Discontinued Comments:This order discontinued per [employer]. AMBIEN, 10MG (Oral Tablet) 1 Daily as needed for 0 days Refills: 0 Ordered:27-Sep-2006 Anahi Alex DO End : 11-Jun-2006 Discontinued Comments:Medication taken as needed. ASPIRIN, 325MG (Oral Tablet) 1 QD for 0 days Refills: 0 Ordered:26-Nov-2014 Ivanna Maddox End : 26-Nov-2014 Discontinued ASPIRIN, 75MG (Oral Tablet Chewable) for 0 days Refills: 0 Ordered:20-Oct-2006 Belen Pickett End : 20-Oct-2006 Discontinued Comments:wrong dose AVAPRO, 300MG (Oral Tablet) 1 tab Tablet qd for 90 days Quantity: 90 {Tablet} Refills: 1 Ordered:02-May-2013 Jackie Christina DO Start : 02-May-2013 End : 02-May-2013 Discontinued Dispense as Written Comments:MARVA DURHAM 10 MCG PEN, 10MCG/0.04ML (Subcutaneous Solution Pen-injector) 1 (one) Solution bid for 90 days Quantity: 3 {pen} Refills: 3 Ordered:27-Nov-2014 Ivanna Maddox Start : 04-Sep-2013 End : 27-Nov-2014 Discontinued BYVEL 5 MCG PEN, 5MCG/0.02ML (Subcutaneous Solution) 1 (one) Solution q 12 hr for 0 days Quantity: 3 {Solution} Refills: 3 Ordered:19-Aug-2009 Jackie Christina DO Start : 19-Aug-2009 End : 19-Aug-2009 Discontinued DIPHENHYDRAMINE HCL, 25MG (Oral Capsule) 1 Capsule qid for 0 days Quantity: 30 {Capsule} Refills: 0 Ordered:18-Mar-2012 Ivanna Maddox Start : 18-Mar-2012 End : 18-Mar-2012 Discontinued EFFEXOR, 75MG (Oral Tablet) 1 Daily for 0 days Refills: 0 Ordered:27-Sep-2006 Abi JHAVERI Anahi End : 12-Mar-2006 Discontinued Ergocalciferol 78636 UNIT Oral Capsule 1 (one) Capsule Capsule twice weekly for 0 days Quantity: 24 {QS} Refills: 0 Ordered:24-Mar-2017 Harman SILVA, Gloria Start : 21-Aug-2016 End : 24-Mar-2017 Discontinued Fenofibrate 160 MG Oral Tablet 1 (one) Tablet daily for 90 days Quantity: 90 {Tablet} Refills: 0 Ordered:10-Dec-2017 Yuval Rodas Start : 18-Oct-2017 End : 10-Dec-2017 Discontinued Fenofibrate 160 MG Oral Tablet 1 (one) Tablet daily for 90 days Quantity: 90 {Tablet} Refills: 3 Ordered:10-Dec-2017 Yuval Rodas Start : 18-Oct-2017 End : 10-Dec-2017 Discontinued Flovent HFA 110 MCG/ACT Inhalation Aerosol 2 Puff bid for 0 days Quantity: 3 {Inhaler} Refills: 2 Ordered:17-Feb-2016 Harman SILVA Gloria Start : 11-Feb-2016 End : 17-Feb-2016 Discontinued Flovent HFA 110 MCG/ACT Inhalation Aerosol 2 Puff bid for 90 days Quantity: 30 {QS} Refills: 3 Ordered:17-Feb-2016 Slanataliia SILVA, Gloria Start : 11-Feb-2016 End : 17-Feb-2016 Discontinued GUAIATUSSIN AC, 100-10MG/5ML (Oral Syrup) 1 Syrup TID prn for 0 days Quantity: 8 {Ounce(s)} Refills: 0 Ordered:18-Mar-2012 Ivanna Maddox Start : 18-Mar-2012 End : 18-Mar-2012 Discontinued Comments:eight ounces Ipratropium-Albuterol 0.5-2.5 (3) MG/3ML Inhalation Solution 1 (one) Solution Solution qid PRN for 0 days Quantity: 90 {QS} Refills: 3 Ordered:13-May-2016 Slarb RPG DEVELOPER, Gloria Start : 13-Feb-2016 End : 13-May-2016 Discontinued IRON, 345MG (PO Cap) for 0 days Refills: 0 Ordered:20-Oct-2006 Belen Pickett End : 20-Oct-2006 Discontinued LEVAQUIN, 500MG (Oral Tablet) 1 Tablet daily for 0 days Quantity: 14 {Tablet} Refills: 0 Ordered:18-Mar-2012 Ivanna Maddox Start : 18-Mar-2012 End : 18-Mar-2012 Discontinued LEVOXYL, 150MCG (Oral Tablet) 1 Tablet daily for 90 days Quantity: 90 {Tablet} Refills: 2 Ordered:01-Nov-2012 Raya Horne Start : 01-Nov-2012 End : 04-Aug-2013 Discontinued Comments:This order discontinued per [employer]. Losartan Potassium 50 MG Oral Tablet 1 (one) Tablet daily for 0 days Quantity: 30 {Tablet} Refills: 6 Ordered:31-Dec-2017 Dafne Jaime CNP, CNP Radha Start : 31-Dec-2017 End : 31-Dec-2017 Discontinued METFORMIN HCL, 500MG (Oral Tablet Extended Release 24 Hour) 3 (three) Tablet ER 24HR qd for 0 days Quantity: 90 {Tablet_ER_24HR} Refills: 3 Ordered:11-Jun-2006 Belen Pickett Start : 11-Jun-2006 End : 20-Oct-2006 Discontinued Comments:hives NASONEX, 50MCG/ACT (Nasal Suspension) 2 (two) Suspension prn for 0 days Quantity: 1 {Suspension} Refills: 0 Ordered:26-Nov-2014 Ivanna Maddox Start : 02-May-2013 End : 26-Nov-2014 Discontinued NIASPAN, 500MG (Oral Tablet Extended Release) 1 (one) Tablet ER QHS / HS for 0 days Quantity: 30 {Tablet_ER} Refills: 3 Ordered:19-Jan-2007 Ivanna Maddox Start : 19-Jan-2007 End : 18-Jul-2007 Discontinued PredniSONE 10 MG Oral Tablet 3 pills for 1 week Tablet 2 pills for 1 week 1 pill for 1 week for 0 days Quantity: 42 {Tablet} Refills: 0 Ordered:24-Mar-2017 Gloria Hammer LPN Start : 18-Nov-2016 End : 24-Mar-2017 Discontinued Comments:take with food in am PREDNISONE, 20MG (Oral Tablet) tad Tablet tad for 0 days Quantity: 20 {Tablet} Refills: 0 Ordered:26-Nov-2014 Ivanna Maddox Start : 31-Jul-2014 End : 26-Nov-2014 Discontinued Comments:2 tab bid for 2 days then 1 tab bid for 4 days then 1 tab qd for 4 days PRODIGY VOICE BLOOD GLUCOSE, w/Device (Kit) 1 (one) Kit daily for 0 days Quantity: 1 Kit Refills: 0 Ordered:31-May-2015 Farhan SHIRAVirgen Start : 29-May-2015 End : 31-May-2015 Discontinued PROMETHAZINE HCL, 25MG (Oral Tablet) 1 Tablet q6hrs prn for 0 days Quantity: 30 {Tablet} Refills: 0 Ordered:26-Nov-2014 Ivanna Maddox Start : 31-Mar-2013 End : 26-Nov-2014 Discontinued PROZAC, 40MG (Oral Capsule) 1 Daily for 0 days Refills: 0 Ordered:27-Sep-2006 Anahi Alex DO End : 12-Mar-2006 Discontinued RHINOCORT AQUA, 32MCG/ACT (Nasal Suspension) for 0 days Refills: 0 Ordered:27-Sep-2006 Anahi Alex DO End : 11-Jun-2006 Discontinued TOPROL XL, 50MG (Oral Tablet Extended Release 24 Hour) 1 Daily for 0 days Refills: 0 Ordered:27-Sep-2006 Anahi Alex DO End : 11-Jun-2006 Discontinued Tudorza Pressair 400 MCG/ACT Inhalation Aerosol Powder Breath Activated 1 (one) Puff bid for 0 days Quantity: 6 {Inhaler} Refills: 0 Ordered:13-May-2016 Slanataliia SILVAGloria Start : 11-Feb-2016 End : 13-May-2016 Discontinued VITAMIN D, 1000UNIT (Oral Tablet) 3 (three) Tablet qd for 0 days Quantity: 90 {Tablet} Refills: 0 Ordered:31-Jul-2013 Jackie Christina DO Start : 31-Jul-2013 End : 31-Jul-2013 Discontinued Allergies and Adverse Reactions Name Dates Details Erythromycin (Allergy) Status: Active Metformin HCl *ANTIDIABETICS* (Allergy) Status: Active Comments: Hives Sulfa Drugs (Allergy) Status: Active Past Medical History Name Dates Details Abdominal pain, acute, generalized (R10.84, 789.07) Status: Resolved as of 07-Dec-2008 Abdominal pain, acute, right upper quadrant (R10.11, 789.01) Comments: get ct Status: Resolved as of 07-Dec-2008 Abdominal Pain,RUQ (789.01) Status: Inactive as of 07-Apr-2017 Abnormal blood chemistry (R79.9, 790.6) Status: Inactive as of 07-Apr-2017 Abnormal glucose tolerance test (R73.09, 790.22) Status: Inactive as of 19-Nov-2009 Abnormal mammogram (R92.8, 793.80) Status: Resolved as of 22-Aug-2012 Acute conjunctivitis (H10.30, 372.00) Status: Resolved as of 19-Jan-2018 Acute exacerbation of COPD with asthma (J44.1, 493.22) 16-Dec-2010 Comments: resolved Status: Inactive as of 12-Jul-2017 Anemia (D64.9, 285.9) Status: Resolved as of 19-Aug-2009 AVULSION FRACTURE Comments: OF LAT MALLEOUSREV X-RAYS Status: Resolved as of 07-Dec-2008 BACKACHE, NOS (724.5) Status: Resolved as of 19-Jan-2018 BMI 40.0-44.9, adult (Z68.41, V85.41) Status: Inactive as of 24-Mar-2017 BMI 40.0-44.9, adult (Z68.41, V85.41) Status: Inactive as of 07-Apr-2017 BMI 45.0-49.9, adult (Z68.42, V85.42) Comments: workin diet and on victoza. Status: Inactive as of 24-Mar-2017 BMI 45.0-49.9, adult (Z68.42, V85.42) Status: Inactive as of 12-Jul-2017 Bronchitis (J40, 490) 25-Sep-2011 Comments: improving infection Status: Resolved as of 05-Apr-2012 Chest pain (R07.9, 786.59) Status: Resolved as of 09-Dec-2008 Chest pain (R07.9, 786.50) Status: Resolved as of 25-Feb-2015 Cough (R05, 786.2) Status: Inactive as of 24-Mar-2017 Dehydration (E86.0, 276.51) Status: Resolved as of 07-Dec-2008 Epistaxis (R04.0, 784.7) Status: Resolved as of 25-Feb-2015 Event monitor Status: Inactive as of 19-Nov-2009 event monitor Status: Inactive as of 07-Apr-2017 Fever, unspecified (R50.9, 780.60) Status: Resolved as of 27-Aug-2010 Flu (J11.1, 487.1) Comments: continue relenza until done Status: Resolved as of 07-May-2009 Hematuria (R31.9, 599.70) Status: Resolved as of 19-Jan-2018 leg cramps- hold crestor and tricorfor 2 weeks and call with update Status: Resolved as of 07-May-2009 Low back pain (M54.5, 724.2) Status: Resolved as of 18-Mar-2012 lung nodule - see above Status: Inactive as of 07-Apr-2017 Mastodynia (611.71) Status: Resolved as of 22-Aug-2012 Nausea (R11.0, 787.02) Status: Resolved as of 02-May-2013 Pain, flank, bilateral (R10.9, 789.09) Status: Resolved as of 19-Jan-2018 Pharyngitis, acute (J02.9, 462) 25-Sep-2009 Status: Resolved as of 19-Nov-2009 Prophylactic vaccination against streptococcus pneumoniae and influenza (Z23, V06.6) Status: Inactive as of 07-Dec-2008 Rash (R21, 782.1) Comments: sounds like by description may have been local foliculitis- now just excoritated- gave samples triple antiobitoic creme she is to call if no resolve Status: Resolved as of 07-Jan-2010 Redness of eye, left (H57.89, 379.93) Status: Resolved as of 19-Jan-2018 screen Status: Inactive as of 19-Nov-2009 screening Status: Inactive as of 07-Jan-2010 Serous conjunctivitis, unspecified laterality (H10.239, 372.01) Status: Resolved as of 18-Mar-2012 Shortness of breath on exertion (R06.02, 786.05) Status: Inactive as of 07-Apr-2017 SOB (shortness of breath) on exertion (R06.02, 786.05) Status: Resolved as of 02-May-2013 Staph infection (B95.8, 041.10) Status: Resolved as of 25-Feb-2015 Type 2 or unspecified type diabetes mellitus, uncontrolled (E11.65, 250.02) Comments: FBS 140. right now on victoza and glyyburide. talk with nurse today on diet. hga1c at goal need to loose weight. talk about diet sending to pulm rehab Status: Inactive as of 07-Apr-2017 Unspecified bacterial pneumonia (J15.9, 482.9) Comments: finish full course of antibiotics, clinical Status: Resolved as of 07-May-2009 Urinary frequency (R35.0, 788.41) Status: Resolved as of 19-Jan-2018 Urinary frequency (R35.0, 788.41) Status: Resolved as of 09-Dec-2008 Well woman exam with routine gynecological exam (Z01.419, V72.31) Status: Inactive as of 01-Jul-2011 Well woman exam with routine gynecological exam (Z01.419, V72.31) Status: Inactive as of 31-Jul-2013 Procedures Procedure Dates Details Cholecystectomy Completed Lung sx Completed Comments: 12-03-06 Date Value Details 19-Jul-2018 Dexa Bone Density Study Result: Comments: See Note; NOTES: [facility] Imaging Services [address] [place] [address] Dexa Bone Density Study MR#: [id number] Acct: [id number] Name: IMANI VINSON Rep #: [id number] : 1950 F 67 From: Leobardo Mckenzie MD PCP: Dafne Jaime NP Status: REG CLI Study: Dexa Bone Density Study Date of Exam: 07/19/18 Exam# [id number] Ordering Dr: Dafne Jaime LUNCHROOM FOOD SERVICE SUPERVISOR-Alcon STUDY: DU AL ENERGY X-RAY ABSORPTIOMETRY / DXA REASON FOR EXAM: Female, 67 years old. The patient is postmenopausal. Loss of height. TECHNIQUE: Bone Mineral Density (BMD) measurements of lumbar spine and bilate ral hips were obtained. COMPARISON: Comparison is made with prior study dated April 12, 2012. FINDINGS: Lumbar Spine (L1-L4): g/cm2 (0.997) / T-score (-1.7) / Z- score (-0.1) Findings are suggestive of osteopenia with a moderate fracture risk. Left Femur Total: g/cm2 (1.033) / T-score (0.2) / Z-score (1.4) Left Femoral Neck: g/cm2 (0.930) / T-score (-0.8) / Z-s core (0.7) Right Femur Total: g/cm2 (1.108) / T-score (0.8) / Z-score (2.0) Right Femoral Neck: g/cm2 (0.896) / T-score (-1.0) / Z-score (0.5) The T-Scores on the most recent prior examination were: L umbar Spine (L1-L4): There has been worsening of bone density since the previous examination. Left Femur Total: which represents a worsening of 11%. Right Femur Total: which represents a worsening of 7 .8%. BD/Dexa Bone Density Study IMPRESSION: The patient is considered osteopenic as outlined below according to World Arun Organization (WHO) cr iteria with a moderate fracture risk. There has been worsening of bone density since the previous examination. Reference Information: The T-score is the number of s tandard deviations above or below the standard which is normal for young adults at their peak bone mineral density. The World Health Organization (WHO) interprets the T-scores as follows: Above -1 Norm al bone density Between -1 and -2.5 Osteopenia Equal to / or below -2.5 Osteoporosis As a practical clinical guideline, osteopenia may be graded as follows: Mild - 1 through -1.5 Moderate -1.6 through - 2.0 Severe -2.1 through -2.4 The Z-score is the number of standard deviations above or below age-matched controls. A Z-score of less than -1.5 would be considered abnormal. References: 1. NIH Osteopor osis and Related Bone Diseases http://www.osteo.org 2. International Society for Clinical Densitometry http://www.iscd.org 3. National Osteoporosis Foundation http://www.nof.org Electronically Signed: Leobardo Mckenzie MD at 11:25 EST Tel [phone], Service support , CC: Dafne Jaime NP Roller Embosser: Signed 19-Jul-2018 SCREENING MAMM (CAD), BILAT Result: Comments: See Note; NOTES: [facility] Imaging Services [address] [place] [address] SCREENING MAMM (CAD), BILAT MR#: [id number] Acct: [id number] Name: IMANI VINSON Rep #: [id number] : 1950 F 67 From: Leobardo Mckenzie MD PCP: Dafne Jaime NP Status: REG CLI Study: SCREENING MAMM (CAD), BILAT Date of Exam: 07/19/18 Exam# [id number] Ordering Dr: Dafne Jaime LUNCHROOM FO[employer] SERVICE SUPERVISOR-Alcon M AMMOGRAPHY - BILATERAL SCREENING REASON FOR EXAM: Female, 67 years old. Routine annual screening examination. PERTINENT HISTORY: Non-contributory. TECHNIQUE: Digital bilateral breast eris (3D mammogr aphic acquisition) in the CC and MLO projections. 2-D mediolateral oblique (MLO) and craniocaudad (CC) views of both breasts were obtained. CAD: Full Field Digital Mammography with Computer Added Detect ion was performed. COMPARISON: Comparison is made with prior examination dated May 05, 2013 and April 12, 2012. FINDINGS: Breast Composition: There are scatte red areas of fibroglandular density. There are no dominant masses or suspicious calcifications. Stable 5.5 mm well-defined nodule with a central fatty hilum in the mid slightly outer aspect of the righ t breast. This most likely represents a small lymph node. No other significant abnormalities are identified. There has been no significant change since the prior study. ___ BI/SCREENING MAMM (CAD), BILAT IMPRESSION: Stable bilateral screening mammogram. Yearly follow-up mammogram recommended. (A) ASSESSMENT CAT EGORY: BIRADS Category 2: Benign. A letter regarding these results will be sent to the patient by the facility within 30 days. Approximately 10% of breast cancers are not detected by mammography. A nor mal mammogram should not delay biopsy of a clinically suspicious abnormality. [id number] Electronically Signed: Leobardo Mckenzie MD at 12:35 EST Tel [phone], Service support [phone], CC: Dafne Jaime NP Roller Embosser: Signed 06-May-2018 Chest without Contrast Result: Comments: See Note; NOTES: [facility] Imaging Services [address] [place] [id number] Chest without Contrast MR#: [id number] Acct: [id number] Name: IMANI VINSON Rep #: [id number] : 1950 F 67 From: Marine Tolliver MD PCP: Dafne Jaime NP Status: REG CLI Study: Chest without Contrast Date of Exam: 05/06/18 Exam# [id number] Ordering Dr: Dafne Jaime LUNCHROOM FOOD SERVICE SUPERVISOR-C STUDY: LOW DOSE CT LUNG CANCER SCREENING REASON FOR EXAM: Female, 67 years old. OBSTRUCTIVE PULMONARY DISEASE, PT STATED HX OF SMOKING UP TO 4 PACKS PER DAY X40+ years, QUIT [id number] AGO, COPD, ASTHMA RADIATION DOSAG E (If Supplied By Facility): CTDIvol = ( 3.40 ) mGy, DLP = ( 108.91 ) mGycm TECHNIQUE: No contrast was administered. Low dose technique was utilized (average mAS-38 and kVp 120). 1.25 mm axial source i mages with a slice interval of 1.25-mm were reconstructed in lung windows. 2.5 mm axial source images with a slice interval of 2.5-mm were reconstructed in lung windows. 5.0 mm axial source images with a slice interval of 5.0-mm were reconstructed in soft tissue windows. Nodule measured using lung windows on PACS and/or independent workstation with automated measurement of minimum and maximum diamete r. Nodule measurement reported as average diameter rounded to the nearest whole number. Growth is defined as an increase ins size of greater than 1.5 mm. COMPARISON: None. NODULES: There is hyperinflation in both lungs suggesting COPD. There is no demonstrated pleural abnormality. Normal heart and pericardium. Normal mediastinum. Normal hilar regions. Normal u nenhanced pulmonary arteries. Normal aorta arch and descending thoracic aorta. There are multi-level degenerative changes of the thoracic spine. There is no demonstrated abnormality of the visualized upper abdomen. CT/Chest without Contrast IMPRESSION: Lung-RADS category 2. Benign finding Recommendation: Routine screening CT scan in one year . IMPORTANT NOTES FOR USE: ACR Lung-RADS Version 1.0 Assessment Categories Release Date: October 23, 2013 Category: Coded 0-4 bases on nodule(s) with highest degree of suspicion. Negative screen is defin ed as categories 1 and 2; a positive screen is defined as categories 3 and 4. Category 3 and 4A nodules that are unchanged on interval CT should be coded as category 2, and individuals [facility] to [facility] in 12 months. Category 4X: Category 3 or 4 nodules with additional imaging findings that increase the suspicion of lung cancer, such as spiculation, GGN that doubles in size in 1 year, enlarged lym ph notes, etc. Category Modifiers: S (significant finding unrelated to lung cancer) and C (prior history of treated lung cancer) may be added to the 0-4 Lung-RADS Electronically Signed: Marine Tolliver MD at 8:09 EST Tel , Service support , CC: Dafne Jaime NP Roller Embosser: Signed 05-May-2018 Spirometry PFT Testing Result: Comments: See Note; NOTES: [facility] Pulmonary Services/Neurology [address] [place] [address] MR#: [id number] Acct: [id number] Name: IMANI VINSON Rep #: [id number] : 0 1950 67 From: Jordy Lion DO Referring Dr: Dafne Jaime NP Status: REG CLI Ordering Dr: Date: Location: N Sex: F C Spirometry PFT Testing Spirometry PFT Testing: INTRODUCTION: The patient is a 67-year-old female that presents for spirometry testing secondary to a diagnosis of shortness of breath. Respiratory therapy reports good patient effort. Bronchodilators were used during maverick ting. INTERPRETATION: Forced expiration spirometry demonstrates no evidence of a large airways obstructive ventilatory defect. There was no significant response to aerosolized bronchodilators. Spirogra ms are of good quality and plateau normally. IMPRESSION: Grossly normal spirometry testing. 05/05/18 1258 <Electronically signed by Jordy Lion DO> Date Jordy Lion DO CC: Date Dictated: 05/05/18 1257 Date Transcribed: 05/05/18 1257 Roller Embosser: WILVER Signed 25-Jan-2018 12 Lead Electrocardiogram Result: Comments: See Note; NOTES: [facility] Cardiovascular Services [address] [place] [address] 12 Lead EKG 01/22/184 MR#: [id number] Acct: [id number] Name: IMANI VINSON Naveen Re p #: [id number] : 1950 67 From: Ramiro Moreno MD Attending Dr: Status: DEP ER Ordering Dr: Tyson Hernandez DO Date: 01/22/18 Location: ED Sex: F C Admitted: Test Reason : NAUSEA Blood Pressure : / mmHG Vent. Rate : 093 BPM Atrial Rate : 093 BPM P-R Int : 190 ms QRS Dur : 096 ms QT Int : 368 ms P-R-T Axes : 048 -16 027 degrees QTc Int : 457 ms Normal sinus rhythm Normal ECG Confirmed by Elia UNGER MD, RAMIRO ([id number]), film or videotape editor RUBI VILLATORO ([id number]) on 01/25/2018 3:09:19 PM Referred By: Confirmed By:RAMIRO MORENO MD 01/25/18 1509 Date Ramiro Moreno MD CC: Dafne Jaime NP; Tyson Hernandez DO Signed 24-Jan-2018 Emergency Department Summary Result: Comments: See Note; NOTES: [facility] Medical Records Department [address] [place] [address] Emergency Department Summary 01/22/18 2318 MR#: [id number] Acct: [id number] Name: IMANI VINSON Rep #: [id number] : 1950 67 From: Tyson Hernandez DO PCP: Danfe Jaime NP Status: DEP ER - ER Visit Summary Date of Service: 01/22/18 Chief Complaint: Headache and vomiting His tory of Present Illness: The patient is a 67 F who states that today when she got up she generally felt poor. She had a generalized headache felt nauseated. She states that she went to bed feeling okay. She notes some chills and some sweats felt like she might have some diarrhea noting very active bowel. The patient states that tonight she began retching. Squad was called. Patient notes her blood pres sure is not controlled and she has been working with her doctor for this. Physical Examination: 195/89 temperature 99.4 heart rate of 99 respirations are 18 pulse ox 94% on 2 L Gen: Well-nourished well -developed patient is retching Head: Normocephalic atraumatic Eyes: Perrl EOMI ENT: TMs clear no rhinorrhea moist mucous membranes Neck: Supple no lymphadenopathy no JVD nontender CVS: Regular rate rhyt hm no murmurs normal S1-S2 Respiratory: No distress clear to auscultation bilaterally chest nontender Abdomen: Soft nontender nondistended normal bowel sounds no masses Back: Nontender Extremity: Nonten ana maría no edema Skin: Normal color no rash Neuro: alert orientated 3 CN II-XII intact normal strength sensation reflexes cerebellar Test Results: CBC chemistries liver lipase negative. EKG sinus rhythm r ate of 93 Emergency Department Course and Treatment: Patient received IV fluids Zofran Toradol and hydralazine. Her blood pressure is down. I think the patient is safe for discharge. Her headache is im proved. She needs to speak with her doctor regarding blood pressure control. Impression: 1. Headache 2. Hypertension This note was generated with ESBATech dictation software. It may contain incorrect words, spelling, and punctuation that were not noted in review of the chart prior to signing ED Disposition - Plan for ED Patient: Disposition: Home or Assisted Living Chief Complaint: Nausea/Vomitin g Instructions: ED Hypertension Conf Out Of Control, ED Nausea Vomiting Prescriptions: Ondansetron [Zofran Odt] 4 mg PO Q8H PRN PRN #10 tab PRN Reason: Nausea Referrals: Dafne Jaime [Primary Care Provide r] - As soon as possible What to do if you have Problems For any increased pain, shortness of breath, bleeding, nausea or vomiting, chest pain, or any unexpected problems, contact your Primary Care Provider. Call [facility] ([phone]) or report to the closest Emergency Room. Call 911 if necessary. 01/24/18 0026 <Electronically signed by Tyson Hernandez DO> Date _ Tyson Hernandez DO Cosigner Signature (If Indicated): Date CC: Dafne Jaime LUNCHROOM FOOD SERVICE SUPERVISOR 30-Dec-2017 12 Lead Electrocardiogram Result: Comments: See Note; NOTES: [facility] Cardiovascular Services [address] [place] [address] 12 Lead EKG 12/25/17 1326 MR#: [id number] Acct: [id number] Name: VINSONIMANISHAWNEE Tafyoa p #: [id number] : 1950 67 From: Ramiro Moreno MD Attending Dr: Status: DEP ER Ordering Dr: Ivanna Puri MD Date: 12/25/17 Location: ED Sex: F C Admitted: Test Reason : GEN ILLNESS Blood Press ure : / mmHG Vent. Rate : 072 BPM Atrial Rate : 072 BPM P-R Int : 156 ms QRS Dur : 092 ms QT Int : 424 ms P-R-T Axes : 020 -06 044 degrees QTc Int : 464 ms Normal sinus rhythm Normal ECG Confirme d by RAMIRO MORENO MD ([id number]), film or videotape editor RUBI VILLATORO ([id number]) on 12/30/2017 3:06:27 PM Referred By: Yoselin Oconnell Confirmed By:RAMIRO MORENO MD 12/30/17 1506 Date _ Ramiro Moreno MD CC: Dafne Jaime NP; Ivanna Puri MD Signed 25-Dec-2017 Emergency Department Summary Result: Comments: See Note; NOTES: [facility] Medical Records Department [address] [place] [address] Emergency Department Summary 12/25/17 1538 MR#: [id number] Acct: [id number] Name: IMANI VINSON Rep #: [id number] : 1950 67 From: Ivanna Puri MD PCP: Dafne Jaime NP Status: DEP ER - ER Visit Summary Date of Service: 12/25/17 Chief Complaint: Nausea, vomiting, diarrhe a, headache History of Present Illness: The patient is a 67 F recently diagnosed with UTI 3 weeks ago. She is given a 10 day antibiotic. Patient states she has had nausea, vomiting, diarrhea since that time. She also complaining of headache. Patient was seen for follow-up 2 days ago and states her urine was not completely cleared but she was not given a new antibiotic. She was sent for a CT scan. Thi s is reviewed and did not show any acute findings. Patient's mother is also ill and being seen in the. Patient is concerned for carbon monoxide exposure with both of them being ill. She states the fire department did check her house and had normal readings. Past history significant for asthma, COPD, sarcoidosis, diabetes, hypertension, high cholesterol, anxiety, and depression. Physical Examination: Blood pressure is 170/63, temperature 99.7, heart rate 78, respiratory rate 18, pulse ox 91% on room air. Patient sitting upright in bed in no acute distress. She is nontoxic appearing. Head neck examin ation is unremarkable. Heart is regular rate and rhythm. Lung sounds are diminished at bilateral bases. No wheezes or rhonchi noted. Abdomen is soft and nontender. Hypoactive bowel sounds are noted thro ughout. Test Results: Portable chest x-ray shows cardiomegaly with mild perihilar congestive changes. EKG is sinus at 72 with no sign of acute ischemia. There is nonspecific diffuse T-wave flattening. Last EKG available for comparison is from 2007. CBC was a white count 12.9 with 89% neutrophils. Chemistry studies reveal glucose of 201, otherwise normal values. LFTs and lipase are normal. Urinalysis shows 0-5 RBCs and 0-5 epithelials. No bacteria noted. Carboxyhemoglobin level is normal at 2.1. Emergency Department Course and Treatment: Patient was given IV fluids, Toradol, and Zofran. On repeat e valuation she reports her headache is significantly improved. Her nausea is also improved. Stool studies were ordered but patient has not been able to provide a sample while here. Repeat vital signs inc katerin rondon blood pressure 152/68 heart rate is 72. Her pulse ox is 95% on room air. At this time patient be discharged with a prescription for Zofran ODT. She is to follow-up with her primary care physician as soon as possible. Treatment Plan: [] Disposition: Discharge Impression: 1. Vomiting, improved 2. Cephalgia, improved This note was generated with ESBATech dictation software. It may contain inco rrect words, spelling, and punctuation that were not noted in review of the chart prior to signing ED Disposition - Plan for ED Patient: Chief Complaint: Nausea/Vomiting/Diarrhea Referrals: Yani Jaime [Primary Care Provider] - What to do if you have Problems For any increased pain, shortness of breath, bleeding, nausea or vomiting, chest pain, or any unexpected problems, contact your Primary Ca re Provider. Call [facility] ([phone]) or report to the closest Emergency Room. Call 911 if necessary. 12/25/17 1636 <Electronically signed by Ivanna Puri MD> Date Ivanna Puri MD Cosigner Signature (If Indicated): Date CC: Dafne Jaime NP 25-Dec-2017 Discharge Instruction Result: Comments: See Note; NOTES: [facility] Medical Records Department [address] [place] [address] Discharge Instruction 12/25/17 154 MR#: [id number] Acct: [id number] Name: IMANI VINSON Rep #: [id number] : 1950 67 From: Ivanna Puri MD PCP: Dafne Jaime NP Status: REG ER ED Disposition - Plan for ED Patient: Disposition: Home or Assisted Living Chief Complaint: Na usea/Vomiting/Diarrhea Instructions: ED Nausea Vomiting, ED Cephalgia Unspecified Prescriptions: Ondansetron [Zofran Odt] 4 mg PO Q8H PRN PRN #10 tablet PRN Reason: Nausea Referrals: Dafne Jaime [Primary Care Provider] - As soon as possible What to do if you have Problems For any increased pain, shortness of breath, bleeding, nausea or vomiting, chest pain, or any unexpected problems, contact your Primary Care Provider. Call [facility] ([phone]) or report to the closest Emergency Room. Call 911 if necessary. 12/25/17 1543 <Electronically signed by Ivanna Puri MD> D ate Ivanna Puri MD Cosigner Signature (If Indicated): Date CC: Dafne Jaime NP 25-Dec-2017 Chest 1 View (Portable) Result: Comments: See Note; NOTES: [facility] Imaging Services [address] [place] [address] Chest 1 View (Portable) MR#: [id number] Acct: [id number] Name: LEYDI VINSONSHAWNEE Hodge Rep #: [id number] : 1950 F 67 From: Walter Corbin MD PCP: Dafne Jaime NP Status: REG ER Study: Chest 1 View (Portable) Date of Exam: 12/25/17 Exam# [id number] Ordering Dr: Ivanna Puri MD STUDY: X-RAY CHEST REASON FOR EXAM: Female, 67 years old. Dyspnea and shortness of breath TECHNIQUE: Single view of the chest was obtained COMPARISON: 14/11/2016 chest radiograph. ___ FINDINGS: No lung consolidation, pleural effusion or pneumothorax. Cardiac size mildly enlarged. Mild perihilar congestive changes. Apical lung scarring IMPRESSION: Cardiomegaly with mild perihil ar congestive changes. Previously noted lung nodule is not well seen on this examination. Electronically Signed: Walter Corbin, at 14:22 EDT Tel , Service support [phone], RAD/Chest 1 View (Portable) CC: Dafne Jaime NP; Ivanna Puri MD Roller Embosser: Signed 23-Dec-2017 Abdomen/Pelvis without Cont Result: Comments: See Note; NOTES: [facility] Imaging Services [address] [place] [address] Abdomen/Pelvis without Cont MR#: [id number] Acct: [id number] Name: IMANI VINSON Naveen Rep #: [id number] : 1950 F 67 From: Leobardo Mckenzie MD PCP: Dafne Jaime NP Status: REG CLI Study: Abdomen/Pelvis without Cont Date of Exam: 12/23/17 Exam# [id number] Ordering Dr: Yoselin Oconnell [employer] STUDY: CT ABDOMEN AND PELVIS WITHOUT CONTRAST REASON FOR EXAM: Female, 67 years old. History of hematuria and kidney stones. RADIATION DOSAGE (If Supplied By Facility): CTDIvol = ( 24.18 ) mGy, DLP = ( 1256.43 ) mGycm TECHNIQUE: Transaxial images were obtained from the dome of the diaphragm to the symphysis pubis without oral contrast, and without intravenous contrast. Sagittal and coronal image s were reconstructed. Individualized dose optimization techniques were used for this CT. COMPARISON: None. FINDINGS: Focal scarring with bronchiectasis along the p osterior medial aspect of the right lower lobe. The visualized portions of the heart are within normal limits. Normal liver. There are surgical clips in the gallbladder fossa consistent with a prior ch olecystectomy. Normal spleen. Normal pancreas. There is a small, circumscribed, smooth, low attenuation right adrenal mass, consistent with an adrenal adenoma. This measures 1.2 cm. Normal left adrenal gland. Normal right kidney. Normal left kidney. Normal visualized stomach. Normal small intestine. There are multiple colonic diverticula consistent with diverticulosis. The appendix is visualized an d appears normal. There is diffuse atherosclerotic calcification of the abdominal aorta and its major visceral branches, without a demonstrated aneurysm. Normal inferior vena cava. Normal retroperitone um. Normal urinary bladder. There is absence of the uterus consistent with a prior hysterectomy. There is a small umbilical hernia containing fat. There are mild degenerative changes of the visualized lumbar spine. CT/Abdomen/Pelvis without Cont IMPRESSION: Scarring and bronchiectasis along the posterior medial aspect of the right lower lobe. Findings suggestive by 1.2 cm right adrenal adenoma. Sigmoid diverticulosis. Electronically Signed: Leobardo Mckenzie MD at 12:50 EDT Tel [phone], Service support , Fax CC: Dafne Jaime [employer]ICE SUPERVISOR; [employer] SUPER[employer]OR[employer] Oconnell Roller Embosser: Signed 12-Feb-2017 Chest without Contrast Result: Comments: See Note; NOTES: [facility] Imaging Services [address] [place] [address] Chest without Contrast MR#: [id number] Acct: [id number] Name: IMANI VINSON Rep #: [id number] : 1950 F 66 From: Ace Olivia DO PCP: Dafne Jaime Status: REG CLI Study: Chest without Contrast Date of Exam: 02/12/17 Exam# [id number] Ordering Dr: Rogelio Granado MD STUDY: CT CHES T WITHOUT CONTRAST REASON FOR EXAM: Female, 66 years old. Lung nodule, history of sarcoid. RADIATION DOSAGE (If Supplied By Facility): CTDIvol = ( 14.80 ) mGy, DLP = ( 478.52 ) mGycm TECHNIQUE: Trans axial imaging was performed without the administration of intravenous contrast material. Individualized dose optimization techniques were used for this CT. COMPARISON: 19 January 2017 PA and lateral ches t FINDINGS: Scattered punctate granulomatous changes predominantly within the lower lobes are noted. Within the region at the level of the lower thoracic spine carmelo g the superior endplate margin are multiple adjacent osteophytes likely corresponding to finding on plain film exam. There is no demonstrated pleural abnormality. Normal heart and pericardium. Normal mediastinum. Normal hilar regions. Normal unenhanced pulmonary arteries. Normal aorta arch and descending thoracic aorta. Normal osseous structures. There is no demonstrated abnormality of the visuali zed upper abdomen. CT/Chest without Contrast IMPRESSION: Granulomatous changes and multiple thoracic degenerative syndesmophyte formations likely corresponding to findings on plain film. No evidence of acute cardiopulmonary process or concerning lung nodule. Electronically Signed: Ace Olivia DO at 11:21 EDT Tel [phone], [employer] e support , CC: Dafne Jaime; Rogelio Granado MD Roller Embosser: Signed 19-Jan-2017 Chest PA and Lateral Result: Comments: See Note; NOTES: [facility] Imaging Services [address] [place] [address] Schuyler 4d Chest PA and Lateral MR#: [id number] Acct: [id number] Name: IMANI VINSON Rep #: [id number] : 1950 F 66 From: Leobardo Mckenzie MD PCP: Dafne Jaime Status: REG CLI Study: Chest PA and Lateral Date of Exam: 01/19/17 Exam# [id number] Ordering Dr: Rogelio Granado MD ST UDY: X-RAY CHEST REASON FOR EXAM: Female, 66 years old. COPD. Sarcoidosis. TECHNIQUE: PA and lateral views of the chest. COMPARISON: Comparison is made with prior study dated August 20, 2015. FINDINGS: Scattered calcified granulomas. On the lateral view, there is a 6.6 mm nodular density projected over the T11 vertebrae. This is not well seen on the frontal v iew. Correlation with a CT scan is recommended. There is no demonstrated pleural abnormality. Normal size heart. Normal mediastinum and arianne. Normal visualized pulmonary arteries. There is atherosclero tic calcification of the aortic arch with tortuosity. There are diffuse degenerative changes of the visualized thoracic spine. Normal visualized ribs, clavicles, and shoulders. There is no demonstrate d abnormality of the visualized soft tissue structures of the upper abdomen. RAD/Chest PA and Lateral IMPRESSION: Stable examination except for a 6.6 mm rounded nodular density overlying the posterior aspect of the thorax on the lateral view. Electronically Signed: Leobardo Mckenzie MD at 12:43 EDT Tel [phone], Service support [phone], CC: Dafne Jaime; Rogelio Granado MD Roller Embosser: Signed 17-Oct-2015 Spirometry ([id number]) Result: 20-Aug-2015 Chest PA and Lateral Result: Comments: See Note; NOTES: [facility] Imaging Services [address] [place] [address] Sch[address] 4d Chest PA and Lateral MR#: [id number] Acct: [id number] Name: IMANI FRASER Rep #: [id number] : 1950 F 64 From: Leobardo Mckenzie MD PCP: Jackie Christina DO Status: REG CLI Study: Chest PA and Lateral Date of Exam: 08/20/15 Exam# [id number] Ordering Dr: Dafne Jaime STUDY: X-RAY CHEST REASON FOR EXAM: Female, 64 years old. Cough. Shortness of breath. Wheezing and chest congestion. TECHNIQUE: PA and lateral views of the chest. COMPARISON: Comparison is made with prior study dated June 06, 2015. FINDINGS: Hyperinflation. Scattered calcified granulomas. There is no demonstrated pleural abnormality. Nor mal size heart. Normal mediastinum and arianne. Normal visualized pulmonary arteries. There is atherosclerotic calcification of the aortic arch with tortuosity. There are diffuse degenerative changes o f the visualized thoracic spine. Normal visualized ribs, clavicles, and shoulders. There is no demonstrated abnormality of the visualized soft tissue structures of the upper abdomen. IMPRESSION: Hyperinflation. No acute abnormality is seen. Electronically Signed: Leobardo Mckenzie MD at 13:08 EST Tel [phone], Service support [phone] , RAD/Chest PA and Lateral IMPRESSION: Hyperinflation. No acute abnormality is seen. Electronically Signed: Leobardo Mckenzie MD at 13:08 EST Tel [phone], Service support [phone], CC: Dafne Jaime; Jackie Christina DO Roller Embosser: Signed 06-Jun-2015 Chest PA and Lateral Result: Comments: See Note; NOTES: [facility] Imaging Services [address] [place] [address] Nicol[address] 4d Chest PA and Lateral MR#: [id number] Acct: [id number] Name: IMANI FRASER Rep #: [id number] : 1950 F 64 From: Leobardo Mckenzie MD PCP: Jackie Christina DO Status: REG CLI Study: Chest PA and Lateral Date of Exam: 06/06/15 Exam# [id number] Ordering Dr: Giovani Hutchins STUDY: X-RAY CHEST REASON FOR EXAM: Female, 64 years old. COPD. TECHNIQUE: PA and lateral views of the chest. COMPARISON: Comparison is made with prior study dated August 06, 2014. __ FINDINGS: Hyperinflation. Scattered calcified granulomas. There is no demonstrated pleural abnormality. There is borderline cardiomegaly. Normal mediastinum and arianne. Normal visualized pulmonary arteries. There is atherosclerotic calcification of the aortic arch . There are diffuse degenerative changes of the visualized thoracic spine. Normal visualized ri bs, clavicles, and shoulders. There is no demonstrated abnormality of the visualized soft tissue structures of the upper abdomen. IMPRESSION: Hyperinflation. Electronically Signed: Leobardo Mckenzie MD at 14:52 EST Tel [phone], Service support [phone], 0056 RAD/Chest PA and Lateral IMPRESSION: Hyp erinflation. Electronically Signed: Leobardo Mckenzie MD at 14:52 EST Tel [phone], Service support [phone], CC: Jackie Christina DO; Nga Hutchins Roller Embosser: Signed 06-Aug-2014 Chest PA and Lateral Result: Comments: See Note; NOTES: [facility] Imaging Services [address] [place] [address] Radiology Report MR#: [id number] Acct: [id number] Name: IMANI VINSON Rep #: [id number] : 1950 F 63 From: Leobardo Mckenzie MD PCP: Jackie Christina DO Status: REG CLI Study: Chest PA and Lateral Date of Exam: 08/06/14 Exam# [id number] Ordering Dr: Dafne Jaime STUDY: X-RAY CHEST REASON FOR EXAM: Female, 63 years old. Cough and chest congestion. TECHNIQUE: PA and lateral views of the chest. COMPARISON: None. FINDINGS: The graciela gs are clear and expanded. Calcified old granulomatous disease. There is no demonstrated pleural abnormality. Normal size heart. Normal mediastinum and arianne. Normal visualized pulmonary arteries. Th ere is atherosclerotic calcification of the aortic arch with tortuosity. There are diffuse degenerative changes of the visualized thoracic spine. Normal visualized ribs, clavicles, and shoulders. There is no demonstrated abnormality of the visualized soft tissue structures of the upper abdomen. IMPRESSION: No acute abnormality is seen. Electronically Si gned: Leobardo Mckenzie MD at 13:03 EST Tel [phone], Service support [phone], CC: Dafne Jaime; Jackie Christina DO Roller Embosser: Signed 05-May-2013 Bilat [employer]rn Digital & CAD Result: Comments: See Note; NOTES: [facility] Imaging Services [address] [place] [address] Breast Imaging Report MR#: [id number] Acct: [id number] Name: IMANI VINSON Rep #: [id number] : 1950 F 62 From: Leobardo Mckenzie MD PCP: Status: PRE CLI Exam# [id number] Ordering Dr: Jackie Christina DO MAMMOGRAPHY - BILATERAL SCREENING REASON FOR EXAM: Female, 62 years old. Routine annual screening examination. PERTINENT HISTORY: Non-contributory. TECHNIQUE: Digital examination. Mediolateral oblique (MLO) and craniocaudad (CC) views of both breasts were obtaine d. CAD: CAD was performed on this study. COMPARISON: Comparison is made with prior study dated April 12, 2012 and April 07, 2011. FINDINGS: The breast com position is composed of scattered fibroglandular tissues ranging from 25% to 50% of the breast. There are no dominant masses or suspicious calcifications. No other significant abnormalities are kylee ntified. There has been no significant change since the prior study. IMPRESSION: Stable bilateral screening mammogram. Yearly follow-up recommended. (A) ASSESSMENT CATEGORY: BIRADS Category 2: Benign finding(s). A letter regarding these results will be sent to the patient by the facility within 30 days. Approximately 1 0% of breast cancers are not detected by mammography. A normal mammogram should not delay biopsy of a clinically suspicious abnormality. Signed: Leobardo Mckenzie M.D. May 05, 2013 at 2:48:1 1 PM EST [phone] Electronically Signed GP/GP If you are the referring physician and would like to consult with the radiologist who provided this interpretation, please contact Leobardo thompson M.D. at [phone]. If this radiologist is unavailable, you will be directed to another radiologist to assist. If you are a patient with a question regarding this report, please contact you r referring physician directly. Professional Interpretation Provided By: [employer], Phone , These documents contain legally protected and confidential health inform ation intended only for the use of the individual or entity named above. If you are not the intended recipient, you are hereby notified that any disclosure, copying, distribution, or other use of thes e documents is strictly prohibited. If you have received this information in error, please notify the sender immediately and arrange for the return or destruction of these documents. CC: Jackie Christina DO Roller Embosser: Signed Immunization Name Dates Details Pneumococcal (2 years and up) on: 08-Jul-2006 Pneumococcal (2 years and up) on: 11-Apr-2007 Family History Unknown Family Member Name Dates Details Father Comments: HTN Status: Active Mother Comments: DM, HTN Status: Active Social History Name Dates Details No Drug Use Status: Active Non Drinker/No Alcohol Use Status: Active Tobacco use: Former smoker. Status: Active Tobacco Use Comments: Smokes 2.5 packs of cigarettes per day Status: Resolved Smoking Status Name Dates Details Former smoker Vital Signs Date Test Result Details :23 Temperature 97 f Comments: Method: Temporal Pulse 71 /min Comments: Pattern: Regular Respiration Rate 18 /min Comments: Pattern: Unlabored O2 SAT 98 % Comments: Room air BP Systolic 132 mm[Hg] Comments: Patient Position: Sitting; Cuff Location: Left Arm; Cuff Size: Standard BP Diastolic 80 mm[Hg] Comments: Patient Position: Sitting; Cuff Location: Left Arm; Cuff Size: Standard Weight 278 lb Height 65 in Body Mass Index Calculated 46.26 kg/m2 Body Surface Area Calculated 2.28 m2 :33 Temperature 98.6 f Comments: Method: Temporal Pulse 66 /min Comments: Pattern: Regular Respiration Rate 18 /min Comments: Pattern: Unlabored O2 SAT 98 % Comments: Room air BP Systolic 148 mm[Hg] Comments: Patient Position: Sitting; Cuff Location: Left Arm; Cuff Size: Standard BP Diastolic 72 mm[Hg] Comments: Patient Position: Sitting; Cuff Location: Left Arm; Cuff Size: Standard Weight 280.25 lb Height 65 in Body Mass Index Calculated 46.64 kg/m2 Body Surface Area Calculated 2.28 m2 :49 Temperature 98.5 f Comments: Method: Temporal Pulse 77 /min Comments: Pattern: Regular Respiration Rate 17 /min Comments: Pattern: Unlabored O2 SAT 96 % Comments: Room air BP Systolic 128 mm[Hg] Comments: Patient Position: Sitting; Cuff Location: Left Arm; Cuff Size: Standard BP Diastolic 70 mm[Hg] Comments: Patient Position: Sitting; Cuff Location: Left Arm; Cuff Size: Standard Weight 278.25 lb Height 65 in Body Mass Index Calculated 46.3 kg/m2 Body Surface Area Calculated 2.28 m2 :49 Pulse 88 /min Comments: Pattern: Regular Respiration Rate 19 /min Comments: Pattern: Labored O2 SAT 97 % Comments: Room air BP Systolic 146 mm[Hg] Comments: Patient Position: Sitting; Cuff Location: Left Arm; Cuff Size: Standard BP Diastolic 82 mm[Hg] Comments: Patient Position: Sitting; Cuff Location: Left Arm; Cuff Size: Standard Weight 275 lb Height 65 in Body Mass Index Calculated 45.76 kg/m2 Body Surface Area Calculated 2.26 m2 :45 Temperature 98.3 f Pulse 72 /min Comments: Pattern: Regular Respiration Rate 17 /min Comments: Pattern: Unlabored O2 SAT 98 % Comments: Room air BP Systolic 140 mm[Hg] Comments: Patient Position: Sitting; Cuff Location: Left Arm; Cuff Size: Standard BP Diastolic 78 mm[Hg] Comments: Patient Position: Sitting; Cuff Location: Left Arm; Cuff Size: Standard Weight 275 lb Height 65 in Body Mass Index Calculated 45.76 kg/m2 Body Surface Area Calculated 2.26 m2 :50 Temperature 97.4 f Comments: Method: Temporal Pulse 81 /min Comments: Pattern: Regular Respiration Rate 20 /min Comments: Pattern: Unlabored O2 SAT 94 % Comments: Room air BP Systolic 158 mm[Hg] Comments: Patient Position: Sitting; Cuff Location: Left Arm; Cuff Size: Standard BP Diastolic 70 mm[Hg] Comments: Patient Position: Sitting; Cuff Location: Left Arm; Cuff Size: Standard Weight 276.375 lb Height 65 in Body Mass Index Calculated 45.99 kg/m2 Body Surface Area Calculated 2.27 m2 :33 Weight 272.8 lb :57 Temperature 98.1 f Pulse 81 /min Comments: Pattern: Regular Respiration Rate 16 /min Comments: Pattern: Unlabored O2 SAT 97 % Comments: Room air BP Systolic 158 mm[Hg] Comments: Patient Position: Sitting; Cuff Location: Left Arm; Cuff Size: Standard BP Diastolic 78 mm[Hg] Comments: Patient Position: Sitting; Cuff Location: Left Arm; Cuff Size: Standard Weight 271 lb Height 65 in Body Mass Index Calculated 45.1 kg/m2 Body Surface Area Calculated 2.25 m2 :18 Temperature 97.2 f Pulse 73 /min Comments: Pattern: Regular Respiration Rate 17 /min Comments: Pattern: Unlabored O2 SAT 96 % Comments: Room air BP Systolic 172 mm[Hg] Comments: Patient Position: Sitting; Cuff Location: Left Arm; Cuff Size: Standard BP Diastolic 82 mm[Hg] Comments: Patient Position: Sitting; Cuff Location: Left Arm; Cuff Size: Standard Weight 271 lb Height 65 in Body Mass Index Calculated 45.1 kg/m2 Body Surface Area Calculated 2.25 m2 :32 Temperature 97.4 f Comments: Method: Temporal Pulse 72 /min Comments: Pattern: Regular Respiration Rate 18 /min Comments: Pattern: Unlabored O2 SAT 97 % Comments: Room air BP Systolic 144 mm[Hg] Comments: Patient Position: Sitting; Cuff Location: Left Arm; Cuff Size: Large BP Diastolic 94 mm[Hg] Comments: Patient Position: Sitting; Cuff Location: Left Arm; Cuff Size: Large Weight 272 lb Height 65 in Body Mass Index Calculated 45.26 kg/m2 Body Surface Area Calculated 2.25 m2 :50 Temperature 97.1 f Pulse 74 /min Comments: Pattern: Regular Respiration Rate 16 /min Comments: Pattern: Unlabored O2 SAT 95 % Comments: Room air BP Systolic 148 mm[Hg] Comments: Patient Position: Sitting; Cuff Location: Left Arm; Cuff Size: Standard BP Diastolic 82 mm[Hg] Comments: Patient Position: Sitting; Cuff Location: Left Arm; Cuff Size: Standard Weight 274 lb Height 65 in Body Mass Index Calculated 45.6 kg/m2 Body Surface Area Calculated 2.26 m2 :14 Temperature 98.9 f Pulse 63 /min Comments: Pattern: Regular Respiration Rate 17 /min Comments: Pattern: Unlabored O2 SAT 95 % Comments: Room air BP Systolic 166 mm[Hg] Comments: Patient Position: Sitting; Cuff Location: Left Arm; Cuff Size: Standard BP Diastolic 82 mm[Hg] Comments: Patient Position: Sitting; Cuff Location: Left Arm; Cuff Size: Standard Weight 274 lb Height 65 in Body Mass Index Calculated 45.6 kg/m2 Body Surface Area Calculated 2.26 m2 :23 Temperature 97.9 f Pulse 73 /min Comments: Pattern: Regular Respiration Rate 18 /min Comments: Pattern: Unlabored O2 SAT 97 % Comments: Room air BP Systolic 162 mm[Hg] Comments: Patient Position: Sitting; Cuff Location: Left Arm; Cuff Size: Standard BP Diastolic 82 mm[Hg] Comments: Patient Position: Sitting; Cuff Location: Left Arm; Cuff Size: Standard Weight 274 lb Height 65 in Body Mass Index Calculated 45.6 kg/m2 Body Surface Area Calculated 2.26 m2 :47 Temperature 98 f Pulse 68 /min Comments: Pattern: Regular O2 SAT 97 % Comments: Room air BP Systolic 140 mm[Hg] Comments: Patient Position: Sitting; Cuff Location: Left Arm; Cuff Size: Standard BP Diastolic 78 mm[Hg] Comments: Patient Position: Sitting; Cuff Location: Left Arm; Cuff Size: Standard Weight 274 lb Height 65 in Body Mass Index Calculated 45.6 kg/m2 Body Surface Area Calculated 2.26 m2 :34 Temperature 97.4 f Pulse 63 /min Comments: Pattern: Regular Respiration Rate 16 /min Comments: Pattern: Unlabored O2 SAT 97 % Comments: Room air BP Systolic 118 mm[Hg] Comments: Patient Position: Sitting; Cuff Location: Left Arm; Cuff Size: Standard BP Diastolic 80 mm[Hg] Comments: Patient Position: Sitting; Cuff Location: Left Arm; Cuff Size: Standard Weight 274 lb Height 65 in Body Mass Index Calculated 45.6 kg/m2 Body Surface Area Calculated 2.26 m2 :15 Temperature 97.6 f Pulse 88 /min Comments: Pattern: Regular Respiration Rate 16 /min Comments: Pattern: Unlabored O2 SAT 96 % Comments: Room air BP Systolic 146 mm[Hg] Comments: Patient Position: Sitting; Cuff Location: Left Arm; Cuff Size: Standard BP Diastolic 84 mm[Hg] Comments: Patient Position: Sitting; Cuff Location: Left Arm; Cuff Size: Standard Weight 276 lb Height 65 in Body Mass Index Calculated 45.93 kg/m2 Body Surface Area Calculated 2.27 m2 :31 Temperature 97.9 f Pulse 71 /min Comments: Pattern: Regular Respiration Rate 18 /min Comments: Pattern: Unlabored O2 SAT 97 % Comments: Room air BP Systolic 120 mm[Hg] Comments: Patient Position: Sitting; Cuff Location: Left Arm; Cuff Size: Standard BP Diastolic 78 mm[Hg] Comments: Patient Position: Sitting; Cuff Location: Left Arm; Cuff Size: Standard Weight 273.125 lb Height 65 in Body Mass Index Calculated 45.45 kg/m2 Body Surface Area Calculated 2.26 m2 [id number]:40 Temperature 97.1 f Pulse 68 /min Comments: Pattern: Regular Respiration Rate 18 /min Comments: Pattern: Unlabored O2 SAT 98 % Comments: Room air BP Systolic 124 mm[Hg] Comments: Patient Position: Sitting; Cuff Location: Left Arm; Cuff Size: Standard BP Diastolic 82 mm[Hg] Comments: Patient Position: Sitting; Cuff Location: Left Arm; Cuff Size: Standard Weight 265 lb Height 65 in Body Mass Index Calculated 44.1 kg/m2 Body Surface Area Calculated 2.23 m2 :07 Pulse 74 /min Comments: Pattern: Regular Respiration Rate 18 /min Comments: Pattern: Unlabored O2 SAT 97 % Comments: Room air BP Systolic 142 mm[Hg] Comments: Patient Position: Sitting; Cuff Location: Left Arm; Cuff Size: Large BP Diastolic 70 mm[Hg] Comments: Patient Position: Sitting; Cuff Location: Left Arm; Cuff Size: Large Weight 265 lb Height 65 in Body Mass Index Calculated 44.1 kg/m2 Body Surface Area Calculated 2.23 m2 :35 Temperature 97.4 f Pulse 79 /min Comments: Pattern: Regular Respiration Rate 16 /min Comments: Pattern: Unlabored O2 SAT 98 % Comments: Room air BP Systolic 124 mm[Hg] Comments: Patient Position: Sitting; Cuff Location: Left Arm; Cuff Size: Standard BP Diastolic 82 mm[Hg] Comments: Patient Position: Sitting; Cuff Location: Left Arm; Cuff Size: Standard Weight 265 lb Height 65 in Body Mass Index Calculated 44.1 kg/m2 Body Surface Area Calculated 2.23 m2 :47 Temperature 97.8 f Pulse 68 /min Comments: Pattern: Regular Respiration Rate 17 /min Comments: Pattern: Unlabored O2 SAT 98 % Comments: Room air BP Systolic 124 mm[Hg] Comments: Patient Position: Sitting; Cuff Location: Left Arm; Cuff Size: Standard BP Diastolic 80 mm[Hg] Comments: Patient Position: Sitting; Cuff Location: Left Arm; Cuff Size: Standard Weight 264 lb Height 65 in Body Mass Index Calculated 43.93 kg/m2 Body Surface Area Calculated 2.23 m2 :45 Temperature 98.2 f Pulse 72 /min Comments: Pattern: Regular Respiration Rate 16 /min Comments: Pattern: Unlabored O2 SAT 98 % Comments: Room air BP Systolic 134 mm[Hg] Comments: Patient Position: Sitting; Cuff Location: Left Arm; Cuff Size: Standard BP Diastolic 82 mm[Hg] Comments: Patient Position: Sitting; Cuff Location: Left Arm; Cuff Size: Standard Weight 260 lb Height 65 in Body Mass Index Calculated 43.27 kg/m2 Body Surface Area Calculated 2.21 m2 :39 Temperature 97 f Pulse 54 /min Comments: Pattern: Regular Respiration Rate 17 /min Comments: Pattern: Unlabored O2 SAT 98 % Comments: Room air BP Systolic 120 mm[Hg] Comments: Patient Position: Sitting; Cuff Location: Left Arm; Cuff Size: Standard BP Diastolic 78 mm[Hg] Comments: Patient Position: Sitting; Cuff Location: Left Arm; Cuff Size: Standard Weight 260 lb Height 65 in Body Mass Index Calculated 43.27 kg/m2 Body Surface Area Calculated 2.21 m2 :33 Temperature 98.2 f Comments: Method: Temporal Pulse 71 /min Comments: Pattern: Regular Respiration Rate 16 /min Comments: Pattern: Unlabored O2 SAT 95 % Comments: Room air BP Systolic 140 mm[Hg] Comments: Patient Position: Sitting; Cuff Location: Left Arm; Cuff Size: Standard BP Diastolic 70 mm[Hg] Comments: Patient Position: Sitting; Cuff Location: Left Arm; Cuff Size: Standard Weight 263 lb Height 65 in Body Mass Index Calculated 43.77 kg/m2 Body Surface Area Calculated 2.22 m2 :11 Pulse 68 /min Comments: Pattern: Regular Respiration Rate 17 /min Comments: Pattern: Unlabored O2 SAT 97 % Comments: Room air BP Systolic 128 mm[Hg] Comments: Patient Position: Sitting; Cuff Location: Left Arm; Cuff Size: Standard BP Diastolic 70 mm[Hg] Comments: Patient Position: Sitting; Cuff Location: Left Arm; Cuff Size: Standard Weight 272 lb Height 65 in Body Mass Index Calculated 45.26 kg/m2 Body Surface Area Calculated 2.25 m2 :21 Temperature 98.2 f Pulse 68 /min Comments: Pattern: Regular Respiration Rate 18 /min Comments: Pattern: Unlabored O2 SAT 98 % Comments: Room air BP Systolic 122 mm[Hg] Comments: Patient Position: Sitting; Cuff Location: Left Arm; Cuff Size: Standard BP Diastolic 80 mm[Hg] Comments: Patient Position: Sitting; Cuff Location: Left Arm; Cuff Size: Standard Weight 271.25 lb Height 65 in Body Mass Index Calculated 45.14 kg/m2 Body Surface Area Calculated 2.25 m2 :12 Temperature 98.6 f Pulse 64 /min Comments: Pattern: Regular Respiration Rate 16 /min Comments: Pattern: Unlabored O2 SAT 100 % Comments: Room air BP Systolic 116 mm[Hg] Comments: Patient Position: Sitting; Cuff Location: Left Arm; Cuff Size: Standard BP Diastolic 76 mm[Hg] Comments: Patient Position: Sitting; Cuff Location: Left Arm; Cuff Size: Standard Weight 268.5 lb Height 65 in Body Mass Index Calculated 44.68 kg/m2 Body Surface Area Calculated 2.24 m2 :26 Temperature 97.2 f Comments: Method: Tympanic Pulse 68 /min Comments: Pattern: Regular Respiration Rate 18 /min Comments: Pattern: Unlabored O2 SAT 98 % Comments: Room air BP Systolic 132 mm[Hg] Comments: Patient Position: Sitting; Cuff Location: Left Arm; Cuff Size: Standard BP Diastolic 78 mm[Hg] Comments: Patient Position: Sitting; Cuff Location: Left Arm; Cuff Size: Standard Weight 272 lb Height 65 in Body Mass Index Calculated 45.26 kg/m2 Body Surface Area Calculated 2.25 m2 :21 Temperature 97.8 f Pulse 68 /min Comments: Pattern: Regular Respiration Rate 20 /min Comments: Pattern: Unlabored O2 SAT 98 % Comments: Room air BP Systolic 118 mm[Hg] Comments: Patient Position: Sitting; Cuff Location: Left Arm; Cuff Size: Standard BP Diastolic 76 mm[Hg] Comments: Patient Position: Sitting; Cuff Location: Left Arm; Cuff Size: Standard Weight 272 lb Height 65 in Body Mass Index Calculated 45.26 kg/m2 Body Surface Area Calculated 2.25 m2 :09 Temperature 98.8 f Pulse 78 /min Comments: Pattern: Regular Respiration Rate 20 /min Comments: Pattern: Unlabored O2 SAT 98 % Comments: Room air BP Systolic 124 mm[Hg] Comments: Patient Position: Sitting; Cuff Location: Left Arm; Cuff Size: Standard BP Diastolic 82 mm[Hg] Comments: Patient Position: Sitting; Cuff Location: Left Arm; Cuff Size: Standard Weight 272 lb Height 65 in Body Mass Index Calculated 45.26 kg/m2 Body Surface Area Calculated 2.25 m2 :18 Temperature 98.5 f Comments: Method: Temporal Pulse 80 /min Comments: Pattern: Regular Respiration Rate 18 /min Comments: Pattern: Unlabored O2 SAT 95 % Comments: Room air BP Systolic 124 mm[Hg] Comments: Patient Position: Sitting; Cuff Location: Left Arm; Cuff Size: Standard BP Diastolic 76 mm[Hg] Comments: Patient Position: Sitting; Cuff Location: Left Arm; Cuff Size: Standard Weight 272 lb Height 65 in Body Mass Index Calculated 45.26 kg/m2 Body Surface Area Calculated 2.25 m2 :01 Temperature 97.9 f Comments: Method: Temporal Pulse 70 /min Comments: Pattern: Regular Respiration Rate 17 /min Comments: Pattern: Unlabored O2 SAT 97 % Comments: Room air BP Systolic 142 mm[Hg] Comments: Patient Position: Sitting; Cuff Location: Left Arm; Cuff Size: Standard BP Diastolic 82 mm[Hg] Comments: Patient Position: Sitting; Cuff Location: Left Arm; Cuff Size: Standard Weight 272 lb Height 65 in Body Mass Index Calculated 45.26 kg/m2 Body Surface Area Calculated 2.25 m2 :16 Temperature 98.2 f Comments: Method: Temporal Pulse 82 /min Comments: Pattern: Regular Respiration Rate 17 /min Comments: Pattern: Unlabored O2 SAT 96 % Comments: Room air BP Systolic 142 mm[Hg] Comments: Patient Position: Sitting; Cuff Location: Left Arm; Cuff Size: Large BP Diastolic 76 mm[Hg] Comments: Patient Position: Sitting; Cuff Location: Left Arm; Cuff Size: Large Weight 272 lb Height 65 in Body Mass Index Calculated 45.26 kg/m2 Body Surface Area Calculated 2.25 m2 :19 Temperature 97.4 f Comments: Method: Temporal Pulse 78 /min Comments: Pattern: Regular Respiration Rate 16 /min Comments: Pattern: Unlabored O2 SAT 96 % Comments: Room air BP Systolic 122 mm[Hg] Comments: Patient Position: Sitting; Cuff Location: Left Arm; Cuff Size: Large BP Diastolic 62 mm[Hg] Comments: Patient Position: Sitting; Cuff Location: Left Arm; Cuff Size: Large Weight 274 lb Height 65 in Body Mass Index Calculated 45.6 kg/m2 Body Surface Area Calculated 2.26 m2 :20 Temperature 96.3 f Pulse 85 /min Comments: Pattern: Regular Respiration Rate 18 /min Comments: Pattern: Unlabored O2 SAT 97 % Comments: Room air BP Systolic 132 mm[Hg] Comments: Patient Position: Sitting; Cuff Location: Left Arm; Cuff Size: Standard BP Diastolic 80 mm[Hg] Comments: Patient Position: Sitting; Cuff Location: Left Arm; Cuff Size: Standard Weight 271 lb Height 65 in Body Mass Index Calculated 45.1 kg/m2 Body Surface Area Calculated 2.25 m2 :32 Temperature 96.3 f Comments: Method: Oral Pulse 74 /min Comments: Pattern: Regular Respiration Rate 18 /min Comments: Pattern: Unlabored BP Systolic 134 mm[Hg] Comments: Patient Position: Sitting; Cuff Location: Left Arm; Cuff Size: Large BP Diastolic 80 mm[Hg] Comments: Patient Position: Sitting; Cuff Location: Left Arm; Cuff Size: Large Weight 274 lb Height 65 in Body Mass Index Calculated 45.6 kg/m2 Body Surface Area Calculated 2.26 m2 :33 Temperature 98 f Pulse 53 /min Comments: Pattern: Regular Respiration Rate 16 /min Comments: Pattern: Unlabored O2 SAT 98 % Comments: Room air BP Systolic 124 mm[Hg] Comments: Patient Position: Sitting; Cuff Location: Left Arm; Cuff Size: Standard BP Diastolic 82 mm[Hg] Comments: Patient Position: Sitting; Cuff Location: Left Arm; Cuff Size: Standard Weight 266 lb Height 65 in Body Mass Index Calculated 44.26 kg/m2 Body Surface Area Calculated 2.23 m2 :02 Temperature 96.3 f Comments: Method: Oral Pulse 78 /min Comments: Pattern: Regular Respiration Rate 18 /min O2 SAT 97 % Comments: Room air BP Systolic 132 mm[Hg] Comments: Patient Position: Sitting; Cuff Location: Left Arm; Cuff Size: Standard BP Diastolic 82 mm[Hg] Comments: Patient Position: Sitting; Cuff Location: Left Arm; Cuff Size: Standard Weight 266 lb Height 65 in Body Mass Index Calculated 44.26 kg/m2 Body Surface Area Calculated 2.23 m2 :36 Temperature 98.2 f Comments: Method: Oral Pulse 58 /min Comments: Pattern: Regular Respiration Rate 22 /min O2 SAT 98 % Comments: Room air BP Systolic 124 mm[Hg] Comments: Patient Position: Sitting; Cuff Location: Left Arm; Cuff Size: Standard BP Diastolic 70 mm[Hg] Comments: Patient Position: Sitting; Cuff Location: Left Arm; Cuff Size: Standard Weight 266 lb Height 65 in Body Mass Index Calculated 44.26 kg/m2 Body Surface Area Calculated 2.23 m2 :45 Temperature 99.6 f Comments: Method: Oral Pulse 69 /min Comments: Pattern: Regular Respiration Rate 18 /min Comments: Pattern: Unlabored O2 SAT 97 % Comments: Room air BP Systolic 122 mm[Hg] Comments: Patient Position: Sitting; Cuff Location: Left Arm; Cuff Size: Standard BP Diastolic 80 mm[Hg] Comments: Patient Position: Sitting; Cuff Location: Left Arm; Cuff Size: Standard Weight 266 lb Height 65 in Body Mass Index Calculated 44.26 kg/m2 Body Surface Area Calculated 2.23 m2 :48 Temperature 98.8 f Comments: Method: Oral Pulse 66 /min Comments: Pattern: Regular Respiration Rate 18 /min O2 SAT 96 % Comments: Room air BP Systolic 138 mm[Hg] Comments: Patient Position: Sitting; Cuff Location: Left Arm; Cuff Size: Standard BP Diastolic 84 mm[Hg] Comments: Patient Position: Sitting; Cuff Location: Left Arm; Cuff Size: Standard Weight 266 lb Height 65 in Body Mass Index Calculated 44.26 kg/m2 Body Surface Area Calculated 2.23 m2 :13 Temperature 98.2 f Pulse 68 /min Comments: Pattern: Regular Respiration Rate 18 /min Comments: Pattern: Unlabored BP Systolic 132 mm[Hg] Comments: Patient Position: Sitting; Cuff Location: Left Arm; Cuff Size: Large BP Diastolic 70 mm[Hg] Comments: Patient Position: Sitting; Cuff Location: Left Arm; Cuff Size: Large Weight 266 lb Height 65 in Body Mass Index Calculated 44.26 kg/m2 Body Surface Area Calculated 2.23 m2 :45 Temperature 98.5 f Pulse 72 /min Comments: Pattern: Regular Respiration Rate 18 /min Comments: Pattern: Unlabored BP Systolic 124 mm[Hg] Comments: Patient Position: Sitting; Cuff Location: Left Arm; Cuff Size: Large BP Diastolic 70 mm[Hg] Comments: Patient Position: Sitting; Cuff Location: Left Arm; Cuff Size: Large Weight 266 lb Height 65 in Body Mass Index Calculated 44.26 kg/m2 Body Surface Area Calculated 2.23 m2 :35 Temperature 98.7 f Comments: Method: Oral Pulse 72 /min Comments: Pattern: Regular Respiration Rate 18 /min O2 SAT 97 % Comments: Room air BP Systolic 130 mm[Hg] Comments: Patient Position: Sitting; Cuff Location: Left Arm; Cuff Size: Standard BP Diastolic 80 mm[Hg] Comments: Patient Position: Sitting; Cuff Location: Left Arm; Cuff Size: Standard Weight 268 lb Height 65 in Body Mass Index Calculated 44.6 kg/m2 Body Surface Area Calculated 2.24 m2 :54 Pulse 68 /min Comments: Pattern: Regular Respiration Rate 20 /min Comments: Pattern: Unlabored O2 SAT 96 % Comments: Room air BP Systolic 128 mm[Hg] Comments: Patient Position: Sitting; Cuff Location: Left Arm; Cuff Size: Large BP Diastolic 82 mm[Hg] Comments: Patient Position: Sitting; Cuff Location: Left Arm; Cuff Size: Large Weight 268 lb Height 65 in Body Mass Index Calculated 44.6 kg/m2 Body Surface Area Calculated 2.24 m2 :39 Temperature 98 f Pulse 76 /min Comments: Pattern: Regular Respiration Rate 18 /min Comments: Pattern: Unlabored BP Systolic 112 mm[Hg] Comments: Patient Position: Sitting; Cuff Location: Left Arm; Cuff Size: Large BP Diastolic 72 mm[Hg] Comments: Patient Position: Sitting; Cuff Location: Left Arm; Cuff Size: Large Weight 268 lb Height 65 in Body Mass Index Calculated 44.6 kg/m2 Body Surface Area Calculated 2.24 m2 :26 Temperature 97.7 f Pulse 64 /min Comments: Pattern: Regular Respiration Rate 18 /min Comments: Pattern: Unlabored BP Systolic 104 mm[Hg] Comments: Patient Position: Sitting; Cuff Location: Left Arm; Cuff Size: Large BP Diastolic 72 mm[Hg] Comments: Patient Position: Sitting; Cuff Location: Left Arm; Cuff Size: Large Weight 267 lb Height 65 in Body Mass Index Calculated 44.43 kg/m2 Body Surface Area Calculated 2.24 m2 :01 Temperature 98.7 f Comments: Method: Oral Pulse 64 /min Comments: Pattern: Regular Respiration Rate 17 /min BP Systolic 130 mm[Hg] Comments: Patient Position: Sitting; Cuff Location: Left Arm; Cuff Size: Standard BP Diastolic 78 mm[Hg] Comments: Patient Position: Sitting; Cuff Location: Left Arm; Cuff Size: Standard Weight 279 lb Height 65 in Body Mass Index Calculated 46.43 kg/m2 Body Surface Area Calculated 2.28 m2 :49 Temperature 98 f Pulse 88 /min Comments: Pattern: Regular Respiration Rate 18 /min Comments: Pattern: Labored O2 SAT 98 % Comments: Room air BP Systolic 132 mm[Hg] Comments: Patient Position: Sitting; Cuff Location: Left Arm; Cuff Size: Large BP Diastolic 84 mm[Hg] Comments: Patient Position: Sitting; Cuff Location: Left Arm; Cuff Size: Large Weight 279 lb Height 65 in Body Mass Index Calculated 46.43 kg/m2 Body Surface Area Calculated 2.28 m2 :42 Temperature 98.5 f Comments: Method: Oral Pulse 80 /min Comments: Pattern: Regular Respiration Rate 20 /min Comments: Pattern: Labored O2 SAT 99 % Comments: Room air BP Systolic 148 mm[Hg] Comments: Patient Position: Sitting; Cuff Location: Left Arm; Cuff Size: Large BP Diastolic 80 mm[Hg] Comments: Patient Position: Sitting; Cuff Location: Left Arm; Cuff Size: Large Weight 279 lb Height 65 in Body Mass Index Calculated 46.43 kg/m2 Body Surface Area Calculated 2.28 m2 :33 Temperature 97.5 f Pulse 68 /min Comments: Pattern: Regular Respiration Rate 18 /min Comments: Pattern: Unlabored BP Systolic 136 mm[Hg] Comments: Patient Position: Sitting; Cuff Location: Left Arm; Cuff Size: Large BP Diastolic 72 mm[Hg] Comments: Patient Position: Sitting; Cuff Location: Left Arm; Cuff Size: Large Weight 279 lb Height 65 in Body Mass Index Calculated 46.43 kg/m2 Body Surface Area Calculated 2.28 m2 :34 Temperature 97.7 f Pulse 72 /min Comments: Pattern: Regular Respiration Rate 18 /min Comments: Pattern: Unlabored BP Systolic 144 mm[Hg] Comments: Patient Position: Sitting; Cuff Location: Left Arm; Cuff Size: Large BP Diastolic 74 mm[Hg] Comments: Patient Position: Sitting; Cuff Location: Left Arm; Cuff Size: Large Weight 281 lb Height 65 in Body Mass Index Calculated 46.76 kg/m2 Body Surface Area Calculated 2.29 m2 :17 Temperature 97.6 f Pulse 64 /min Comments: Pattern: Regular Respiration Rate 18 /min Comments: Pattern: Unlabored BP Systolic 122 mm[Hg] Comments: Patient Position: Sitting; Cuff Location: Left Arm; Cuff Size: Large BP Diastolic 60 mm[Hg] Comments: Patient Position: Sitting; Cuff Location: Left Arm; Cuff Size: Large Weight 277 lb Height 65 in Body Mass Index Calculated 46.09 kg/m2 Body Surface Area Calculated 2.27 m2 :07 Pulse 70 /min Comments: Pattern: Regular Respiration Rate 20 /min Comments: Pattern: Unlabored O2 SAT 97 % Comments: Room air BP Systolic 120 mm[Hg] Comments: Patient Position: Sitting; Cuff Location: Left Arm; Cuff Size: Standard BP Diastolic 78 mm[Hg] Comments: Patient Position: Sitting; Cuff Location: Left Arm; Cuff Size: Standard Weight 278 lb Height 65 in Body Mass Index Calculated 46.26 kg/m2 Body Surface Area Calculated 2.28 m2 :00 Temperature 99.3 f Pulse 68 /min Comments: Pattern: Regular Respiration Rate 18 /min Comments: Pattern: Unlabored BP Systolic 124 mm[Hg] Comments: Patient Position: Sitting; Cuff Location: Left Arm; Cuff Size: Large BP Diastolic 76 mm[Hg] Comments: Patient Position: Sitting; Cuff Location: Left Arm; Cuff Size: Large Weight 278 lb Height 65 in Body Mass Index Calculated 46.26 kg/m2 Body Surface Area Calculated 2.28 m2 :38 Temperature 97.8 f Comments: Method: Oral Pulse 72 /min Comments: Pattern: Regular Respiration Rate 16 /min Comments: Pattern: Unlabored BP Systolic 127 mm[Hg] Comments: Patient Position: Sitting; Cuff Location: Left Arm; Cuff Size: Standard BP Diastolic 76 mm[Hg] Comments: Patient Position: Sitting; Cuff Location: Left Arm; Cuff Size: Standard Weight 270 lb Height 65 in Body Mass Index Calculated 44.93 kg/m2 Body Surface Area Calculated 2.25 m2 :13 Temperature 97.5 f Pulse 68 /min Comments: Pattern: Regular Respiration Rate 20 /min Comments: Pattern: Unlabored O2 SAT 97 % Comments: Room air BP Systolic 138 mm[Hg] Comments: Patient Position: Sitting; Cuff Location: Left Arm; Cuff Size: Large BP Diastolic 80 mm[Hg] Comments: Patient Position: Sitting; Cuff Location: Left Arm; Cuff Size: Large Weight 270 lb Height 65 in Body Mass Index Calculated 44.93 kg/m2 Body Surface Area Calculated 2.25 m2 :22 Temperature 97.2 f Comments: Method: Oral Pulse 73 /min Comments: Pattern: Regular Respiration Rate 20 /min Comments: Pattern: Unlabored O2 SAT 95 % Comments: Room air BP Systolic 126 mm[Hg] Comments: Patient Position: Sitting; Cuff Location: Left Arm; Cuff Size: Standard BP Diastolic 82 mm[Hg] Comments: Patient Position: Sitting; Cuff Location: Left Arm; Cuff Size: Standard Weight 271.125 lb Height 65 in Body Mass Index Calculated 45.12 kg/m2 Body Surface Area Calculated 2.25 m2 :49 Temperature 97.8 f Comments: Method: Oral Pulse 68 /min Comments: Pattern: Regular Respiration Rate 17 /min BP Systolic 120 mm[Hg] Comments: Patient Position: Sitting; Cuff Location: Left Arm; Cuff Size: Standard BP Diastolic 72 mm[Hg] Comments: Patient Position: Sitting; Cuff Location: Left Arm; Cuff Size: Standard Weight 271.125 lb Height 65 in Body Mass Index Calculated 45.12 kg/m2 Body Surface Area Calculated 2.25 m2 :26 Temperature 97.2 f Comments: Method: Oral Pulse 70 /min Comments: Pattern: Regular Respiration Rate 18 /min BP Systolic 122 mm[Hg] Comments: Patient Position: Sitting; Cuff Location: Left Arm; Cuff Size: Standard BP Diastolic 70 mm[Hg] Comments: Patient Position: Sitting; Cuff Location: Left Arm; Cuff Size: Standard Weight 271.125 lb Height 65 in Body Mass Index Calculated 45.12 kg/m2 Body Surface Area Calculated 2.25 m2 :30 Temperature 97.8 f Pulse 68 /min Comments: Pattern: Regular Respiration Rate 17 /min Comments: Pattern: Unlabored BP Systolic 122 mm[Hg] Comments: Patient Position: Sitting; Cuff Location: Left Arm; Cuff Size: Standard BP Diastolic 60 mm[Hg] Comments: Patient Position: Sitting; Cuff Location: Left Arm; Cuff Size: Standard Weight 271.125 lb Height 65 in Body Mass Index Calculated 45.12 kg/m2 Body Surface Area Calculated 2.25 m2 :54 Temperature 97.8 f Comments: Method: Oral Pulse 66 /min Comments: Pattern: Regular Respiration Rate 20 /min Comments: Pattern: Unlabored O2 SAT 98 % Comments: Room air BP Systolic 118 mm[Hg] Comments: Patient Position: Supine; Cuff Location: Left Arm; Cuff Size: Standard BP Diastolic 70 mm[Hg] Comments: Patient Position: Supine; Cuff Location: Left Arm; Cuff Size: Standard Weight 280 lb Height 65 in Body Mass Index Calculated 46.59 kg/m2 Body Surface Area Calculated 2.28 m2 :16 Temperature 98.4 f Comments: Method: Oral Pulse 68 /min Comments: Pattern: Regular Respiration Rate 20 /min Comments: Pattern: Unlabored O2 SAT 97 % Comments: Room air BP Systolic 122 mm[Hg] Comments: Patient Position: Sitting; Cuff Location: Left Arm; Cuff Size: Standard BP Diastolic 70 mm[Hg] Comments: Patient Position: Sitting; Cuff Location: Left Arm; Cuff Size: Standard Weight 280 lb Height 65 in Body Mass Index Calculated 46.59 kg/m2 Body Surface Area Calculated 2.28 m2 :51 Temperature 97.5 f Pulse 80 /min Comments: Pattern: Regular Respiration Rate 18 /min Comments: Pattern: Unlabored BP Systolic 120 mm[Hg] Comments: Patient Position: Sitting; Cuff Location: Left Arm; Cuff Size: Large BP Diastolic 66 mm[Hg] Comments: Patient Position: Sitting; Cuff Location: Left Arm; Cuff Size: Large Weight 280 lb Height 65 in Body Mass Index Calculated 46.59 kg/m2 Body Surface Area Calculated 2.28 m2 :06 Temperature 98.7 f Pulse 68 /min Comments: Pattern: Regular Respiration Rate 24 /min Comments: Pattern: Unlabored O2 SAT 96 % Comments: Room air BP Systolic 126 mm[Hg] Comments: Patient Position: Sitting; Cuff Location: Left Arm; Cuff Size: Large BP Diastolic 74 mm[Hg] Comments: Patient Position: Sitting; Cuff Location: Left Arm; Cuff Size: Large :59 Temperature 97.8 f Pulse 68 /min Comments: Pattern: Regular BP Systolic 122 mm[Hg] Comments: Patient Position: Sitting; Cuff Location: Left Arm; Cuff Size: Large BP Diastolic 72 mm[Hg] Comments: Patient Position: Sitting; Cuff Location: Left Arm; Cuff Size: Large :03 Temperature 96.6 f Pulse 80 /min Comments: Pattern: Regular Respiration Rate 18 /min Comments: Pattern: Unlabored BP Systolic 128 mm[Hg] Comments: Patient Position: Sitting; Cuff Location: Left Arm; Cuff Size: Standard BP Diastolic 72 mm[Hg] Comments: Patient Position: Sitting; Cuff Location: Left Arm; Cuff Size: Standard Weight 283 lb :21 Temperature 97.2 f Comments: Method: Oral Pulse 78 /min Comments: Pattern: Regular Respiration Rate 17 /min Comments: Pattern: Unlabored BP Systolic 126 mm[Hg] Comments: Patient Position: Sitting; Cuff Location: Left Arm; Cuff Size: Standard BP Diastolic 72 mm[Hg] Comments: Patient Position: Sitting; Cuff Location: Left Arm; Cuff Size: Standard Weight 280 lb :33 Temperature 97.3 f Comments: Method: Oral Pulse 70 /min Comments: Pattern: Regular Respiration Rate 17 /min Comments: Pattern: Unlabored BP Systolic 136 mm[Hg] Comments: Patient Position: Sitting; Cuff Location: Left Arm; Cuff Size: Standard BP Diastolic 74 mm[Hg] Comments: Patient Position: Sitting; Cuff Location: Left Arm; Cuff Size: Standard Weight 280 lb :33 Pulse 64 /min Comments: Pattern: Regular Respiration Rate 18 /min Comments: Pattern: Unlabored BP Systolic 116 mm[Hg] Comments: Patient Position: Sitting; Cuff Location: Left Arm; Cuff Size: Large BP Diastolic 66 mm[Hg] Comments: Patient Position: Sitting; Cuff Location: Left Arm; Cuff Size: Large Weight 280 lb :35 Temperature 96.8 f Pulse 64 /min Comments: Pattern: Regular Respiration Rate 18 /min Comments: Pattern: Unlabored BP Systolic 102 mm[Hg] Comments: Patient Position: Sitting; Cuff Location: Left Arm; Cuff Size: Large BP Diastolic 60 mm[Hg] Comments: Patient Position: Sitting; Cuff Location: Left Arm; Cuff Size: Large Weight 281 lb :38 Temperature 98.4 f Pulse 88 /min Comments: Pattern: Regular Respiration Rate 18 /min Comments: Pattern: Unlabored BP Systolic 118 mm[Hg] Comments: Patient Position: Sitting; Cuff Location: Left Arm; Cuff Size: Standard BP Diastolic 64 mm[Hg] Comments: Patient Position: Sitting; Cuff Location: Left Arm; Cuff Size: Standard :02 Temperature 97.9 f Pulse 72 /min Comments: Pattern: Regular Respiration Rate 18 /min Comments: Pattern: Unlabored BP Systolic 136 mm[Hg] Comments: Patient Position: Sitting; Cuff Location: Left Arm; Cuff Size: Standard BP Diastolic 80 mm[Hg] Comments: Patient Position: Sitting; Cuff Location: Left Arm; Cuff Size: Standard Weight 284 lb :02 Pulse 72 /min Comments: Pattern: Regular BP Systolic 124 mm[Hg] Comments: Patient Position: Sitting; Cuff Location: Left Arm; Cuff Size: Large BP Diastolic 86 mm[Hg] Comments: Patient Position: Sitting; Cuff Location: Left Arm; Cuff Size: Large Weight 0 lb Height 0 in Head Circumference 0.00 cm :17 Temperature 98.1 f Comments: Method: Undefined Pulse 72 /min Comments: Pattern: Regular Respiration Rate 18 /min Comments: Pattern: Undefined BP Systolic 122 mm[Hg] Comments: Patient Position: Sitting; Cuff Location: Left Arm; Cuff Size: Large BP Diastolic 70 mm[Hg] Comments: Patient Position: Sitting; Cuff Location: Left Arm; Cuff Size: Large Weight 279 lb Height 0 in Head Circumference 0.00 cm :54 Temperature 98.5 f Comments: Method: Oral Pulse 84 /min Comments: Pattern: Regular Respiration Rate 20 /min Comments: Pattern: Labored O2 SAT 96 % Comments: Room air BP Systolic 124 mm[Hg] Comments: Patient Position: Sitting; Cuff Location: Left Arm; Cuff Size: Large BP Diastolic 84 mm[Hg] Comments: Patient Position: Sitting; Cuff Location: Left Arm; Cuff Size: Large Weight 175 lb Height 67 in Body Mass Index Calculated 27.41 kg/m2 Body Surface Area Calculated 1.91 m2 Head Circumference 0.00 cm :38 Temperature 98.1 f Comments: Method: Oral Pulse 60 /min Comments: Pattern: Regular Respiration Rate 16 /min Comments: Pattern: Labored BP Systolic 130 mm[Hg] Comments: Patient Position: Sitting; Cuff Location: Left Arm; Cuff Size: Standard BP Diastolic 70 mm[Hg] Comments: Patient Position: Sitting; Cuff Location: Left Arm; Cuff Size: Standard Weight 175 lb Height 67 in Body Mass Index Calculated 27.41 kg/m2 Body Surface Area Calculated 1.91 m2 Head Circumference 0.00 cm :32 Temperature 99.9 f Comments: Method: Oral Pulse 74 /min Comments: Pattern: Regular Respiration Rate 16 /min Comments: Pattern: Unlabored O2 SAT 96 % Comments: Room air BP Systolic 118 mm[Hg] Comments: Patient Position: Supine; Cuff Location: Left Arm; Cuff Size: Standard BP Diastolic 78 mm[Hg] Comments: Patient Position: Supine; Cuff Location: Left Arm; Cuff Size: Standard Weight 0 lb Height 67 in Head Circumference 0.00 cm :24 Temperature 97.5 f Comments: Method: Undefined Pulse 80 /min Comments: Pattern: Regular Respiration Rate 18 /min Comments: Pattern: Undefined BP Systolic 134 mm[Hg] Comments: Patient Position: Sitting; Cuff Location: Left Arm; Cuff Size: Standard BP Diastolic 74 mm[Hg] Comments: Patient Position: Sitting; Cuff Location: Left Arm; Cuff Size: Standard Weight 276 lb Height 0 in Head Circumference 0.00 cm :59 Pulse 68 /min Comments: Pattern: Regular Respiration Rate 20 /min Comments: Pattern: Unlabored BP Systolic 122 mm[Hg] Comments: Patient Position: Sitting; Cuff Location: Left Arm; Cuff Size: Large BP Diastolic 78 mm[Hg] Comments: Patient Position: Sitting; Cuff Location: Left Arm; Cuff Size: Large Weight 278 lb Height 66.75 in Body Mass Index Calculated 43.87 kg/m2 Body Surface Area Calculated 2.32 m2 Head Circumference 0.00 cm :54 Temperature 98.2 f Comments: Method: Undefined Pulse 62 /min Comments: Pattern: Regular Respiration Rate 20 /min Comments: Pattern: Undefined O2 SAT 97 % Comments: Room air BP Systolic 132 mm[Hg] Comments: Patient Position: Sitting; Cuff Location: Left Arm; Cuff Size: Large BP Diastolic 80 mm[Hg] Comments: Patient Position: Sitting; Cuff Location: Left Arm; Cuff Size: Large Weight 0 lb Height 0 in Head Circumference 0.00 cm :04 Temperature 97.6 f Comments: Method: Undefined Pulse 66 /min Comments: Pattern: Regular Respiration Rate 18 /min Comments: Pattern: Undefined BP Systolic 124 mm[Hg] Comments: Patient Position: Sitting; Cuff Location: Left Arm; Cuff Size: Large BP Diastolic 76 mm[Hg] Comments: Patient Position: Sitting; Cuff Location: Left Arm; Cuff Size: Large Weight 272 lb Height 0 in Head Circumference 0.00 cm :17 Temperature 97.4 f Comments: Method: Oral Pulse 72 /min Comments: Pattern: Regular Respiration Rate 20 /min Comments: Pattern: Unlabored BP Systolic 122 mm[Hg] Comments: Patient Position: Sitting; Cuff Location: Right Arm; Cuff Size: Large BP Diastolic 78 mm[Hg] Comments: Patient Position: Sitting; Cuff Location: Right Arm; Cuff Size: Large Weight 272 lb Height 0 in Head Circumference 0.00 cm :26 Temperature 97.6 f Comments: Method: Undefined Pulse 68 /min Comments: Pattern: Regular Respiration Rate 18 /min Comments: Pattern: Undefined BP Systolic 138 mm[Hg] Comments: Patient Position: Sitting; Cuff Location: Right Arm; Cuff Size: Standard BP Diastolic 88 mm[Hg] Comments: Patient Position: Sitting; Cuff Location: Right Arm; Cuff Size: Standard Weight 278 lb Height 0 in Head Circumference 0.00 cm :24 Temperature 98.6 f Comments: Method: Undefined Pulse 56 /min Comments: Pattern: Regular Respiration Rate 18 /min Comments: Pattern: Undefined BP Systolic 116 mm[Hg] Comments: Patient Position: Sitting; Cuff Location: Right Arm; Cuff Size: Standard BP Diastolic 68 mm[Hg] Comments: Patient Position: Sitting; Cuff Location: Right Arm; Cuff Size: Standard Weight 288 lb Height 0 in Head Circumference 0.00 cm :58 Temperature 97.5 f Comments: Method: Oral Pulse 78 /min Comments: Pattern: Regular Respiration Rate 18 /min Comments: Pattern: Unlabored BP Systolic 118 mm[Hg] Comments: Patient Position: Sitting; Cuff Location: Left Arm; Cuff Size: Large BP Diastolic 80 mm[Hg] Comments: Patient Position: Sitting; Cuff Location: Left Arm; Cuff Size: Large Weight 0 lb Height 0 in Head Circumference 0.00 cm :32 Temperature 98 f Comments: Method: Undefined Pulse 78 /min Comments: Pattern: Regular Respiration Rate 18 /min Comments: Pattern: Undefined BP Systolic 110 mm[Hg] Comments: Patient Position: Standing; Cuff Location: Right Arm; Cuff Size: Large BP Diastolic 68 mm[Hg] Comments: Patient Position: Standing; Cuff Location: Right Arm; Cuff Size: Large Weight 288 lb Height 0 in Head Circumference 0.00 cm :38 Temperature 98.1 f Comments: Method: Oral Pulse 64 /min Comments: Pattern: Regular Respiration Rate 18 /min Comments: Pattern: Unlabored BP Systolic 116 mm[Hg] Comments: Patient Position: Sitting; Cuff Location: Right Arm; Cuff Size: Large BP Diastolic 66 mm[Hg] Comments: Patient Position: Sitting; Cuff Location: Right Arm; Cuff Size: Large Weight 290 lb Height 67 in Body Mass Index Calculated 45.42 kg/m2 Body Surface Area Calculated 2.37 m2 Head Circumference 0.00 cm :12 Temperature 98.1 f Comments: Method: Oral Pulse 68 /min Comments: Pattern: Regular Respiration Rate 20 /min Comments: Pattern: Unlabored BP Systolic 124 mm[Hg] Comments: Patient Position: Sitting; Cuff Location: Right Arm; Cuff Size: Large BP Diastolic 66 mm[Hg] Comments: Patient Position: Sitting; Cuff Location: Right Arm; Cuff Size: Large Weight 287 lb Height 67 in Body Mass Index Calculated 44.95 kg/m2 Body Surface Area Calculated 2.36 m2 Head Circumference 0.00 cm :00 Pulse 64 /min Comments: Pattern: Regular Respiration Rate 16 /min Comments: Pattern: Unlabored BP Systolic 124 mm[Hg] Comments: Patient Position: Sitting; Cuff Location: Left Arm; Cuff Size: Standard BP Diastolic 76 mm[Hg] Comments: Patient Position: Sitting; Cuff Location: Left Arm; Cuff Size: Standard Weight 291.0625 lb Height 67 in Body Mass Index Calculated 45.59 kg/m2 Body Surface Area Calculated 2.37 m2 Head Circumference 0.00 cm :09 Pulse 60 /min Comments: Pattern: Regular Respiration Rate 20 /min Comments: Pattern: Unlabored BP Systolic 138 mm[Hg] Comments: Patient Position: Sitting; Cuff Location: Left Arm; Cuff Size: Standard BP Diastolic 62 mm[Hg] Comments: Patient Position: Sitting; Cuff Location: Left Arm; Cuff Size: Standard Weight 295.4375 lb Height 67 in Body Mass Index Calculated 46.27 kg/m2 Body Surface Area Calculated 2.39 m2 Head Circumference 0.00 cm :30 Temperature 97 f Comments: Method: Oral Pulse 68 /min Comments: Pattern: Regular Respiration Rate 23 /min Comments: Pattern: Wheezing BP Systolic 134 mm[Hg] Comments: Patient Position: Sitting; Cuff Location: Left Arm; Cuff Size: Standard BP Diastolic 82 mm[Hg] Comments: Patient Position: Sitting; Cuff Location: Left Arm; Cuff Size: Standard Weight 293 lb Height 0 in Head Circumference 0.00 cm :13 Temperature 97.7 f Comments: Method: Oral Pulse 66 /min Comments: Pattern: Regular Respiration Rate 22 /min Comments: Pattern: Labored O2 SAT 98 % Comments: Room air BP Systolic 136 mm[Hg] Comments: Patient Position: Sitting; Cuff Location: Left Arm; Cuff Size: Standard BP Diastolic 84 mm[Hg] Comments: Patient Position: Sitting; Cuff Location: Left Arm; Cuff Size: Standard Weight 293 lb Height 0 in Head Circumference 0.00 cm :55 Temperature 98.2 f Comments: Method: Oral Pulse 76 /min Comments: Pattern: Regular Respiration Rate 24 /min Comments: Pattern: Wheezing O2 SAT 98 % Comments: Room air BP Systolic 136 mm[Hg] Comments: Patient Position: Sitting; Cuff Location: Right Arm; Cuff Size: Standard BP Diastolic 88 mm[Hg] Comments: Patient Position: Sitting; Cuff Location: Right Arm; Cuff Size: Standard Weight 0 lb Height 0 in Head Circumference 0.00 cm :38 Temperature 98.8 f Comments: Method: Oral Pulse 80 /min Comments: Pattern: Regular Respiration Rate 25 /min Comments: Pattern: Wheezing O2 SAT 98 % Comments: Room air BP Systolic 132 mm[Hg] Comments: Patient Position: Sitting; Cuff Location: Right Arm; Cuff Size: Standard BP Diastolic 76 mm[Hg] Comments: Patient Position: Sitting; Cuff Location: Right Arm; Cuff Size: Standard Weight 0 lb Height 0 in Head Circumference 0.00 cm :37 Temperature 97.7 f Comments: Method: Oral Pulse 68 /min Comments: Pattern: Regular Respiration Rate 20 /min Comments: Pattern: Unlabored BP Systolic 138 mm[Hg] Comments: Patient Position: Sitting; Cuff Location: Right Arm; Cuff Size: Large BP Diastolic 66 mm[Hg] Comments: Patient Position: Sitting; Cuff Location: Right Arm; Cuff Size: Large Weight 0 lb Height 0 in Head Circumference 0.00 cm :10 Temperature 98.4 f Comments: Method: Oral Pulse 72 /min Comments: Pattern: Regular Respiration Rate 20 /min Comments: Pattern: Unlabored BP Systolic 132 mm[Hg] Comments: Patient Position: Sitting; Cuff Location: Right Arm; Cuff Size: Large BP Diastolic 80 mm[Hg] Comments: Patient Position: Sitting; Cuff Location: Right Arm; Cuff Size: Large Weight 293.3125 lb Height 0 in Head Circumference 0.00 cm :15 Temperature 98.2 f Comments: Method: Oral Pulse 72 /min Comments: Pattern: Regular Respiration Rate 20 /min Comments: Pattern: Unlabored BP Systolic 120 mm[Hg] Comments: Patient Position: Sitting; Cuff Location: Left Arm; Cuff Size: Standard BP Diastolic 80 mm[Hg] Comments: Patient Position: Sitting; Cuff Location: Left Arm; Cuff Size: Standard Weight 291 lb Height 0 in Head Circumference 0.00 cm :11 Temperature 98.6 f Comments: Method: Oral Pulse 80 /min Comments: Pattern: Regular Respiration Rate 20 /min Comments: Pattern: Unlabored BP Systolic 146 mm[Hg] Comments: Patient Position: Sitting; Cuff Location: Right Arm; Cuff Size: Standard BP Diastolic 82 mm[Hg] Comments: Patient Position: Sitting; Cuff Location: Right Arm; Cuff Size: Standard Weight 0 lb Height 0 in Head Circumference 0.00 cm Results Date Description Value Details :00 CALCIFEDIOL (05776) Comments: PERFORMED BY: [employer] [place] [id number] Vitamin D, 25-Hydroxy 32.4 ng/mL (Normal) Range: 30.0-100.0 Comments: Vitamin D deficiency has been defined by the [place] ofMedicine and an Endocrine Society practice guideline as alevel of serum 25-OH vitamin D less than 20 ng/mL (1,2).The Endocrine Society went on to further define vitamin Dinsufficiency as a level between 21 and 29 ng/mL (2).1. IOM ([place] of Medicine). 2010. Dietary reference intakes for calcium and D. [place]: The National Academies Press.2. Eleni MF, Lorne NC, Dayron WALTON, et al. Evaluation, treatment, and prevention of vitamin D deficiency: an Endocrine Society clinical practice guideline. JCEM. 2010; 96(7):1911-30. 08-Gwe-850602:25 PARATHORMONE (83210) Comments: PATIENT NOT FASTINGPERFORMED BY: [employer]70 [employer] [place] [id number] PTH, Intact 36 pg/mL (Normal) Range: 15-65 8-Dby-183935:37 Lipid Panel (72995) Comments: PATIENT WAS FASTINGPERFORMED BY: [facility] SystemsCrownpoint Health Care FacilityJqyxkf2449 [facility] [id number] LDL/HDL Ratio 2.0 {ratio} (Normal) Range: 0.0-3.2 Comments: LDL/HDL Ratio Men Women 1/2 Avg.Risk 1.0 1.5 Av g.Risk 3.6 3.2 2X Avg.Risk 6.2 5.0 3X Avg.Risk 8.0 6.1 LDL Cholesterol Calc 94 mg/dL (Normal) Range: 0-99 VLDL Cholesterol Edgardo 37 mg/dL (Normal) Range: 5-40 HDL Cholesterol 46 mg/dL (Normal) Triglycerides 186 mg/dL (Abnormal) Range: 0-149 Cholesterol, Total 177 mg/dL (Normal) Range: 100-199 1-Oiw-294037:37 MICROALBUMIN: CREATININE RATIO Comments: PATIENT WAS FASTINGPERFORMED BY: [employer] Lxhjza3021 [facility] [id number] ([id number]) AND (25155) Alb/Creat Ratio 5.9 {mg/g_creat} (Normal) Range: 0.0-30.0 Comments: Normal: 0.0 - 30.0 Albuminuria: 31.0 - 300.0 Clinical albuminuria: >300.0 Albumin, Urine 7.5 ug/mL (Normal) Creatinine, Urine 127.1 mg/dL (Normal) 8-Rom-[id number]:37 TSH (45363) Comments: PATIENT WAS FASTINGPERFORMED BY: Evision SystemsVirtua VoorheesPqyjmp4930 [facility] [id number] TSH 1.970 {uIU/mL} (Normal) Range: 0.450-4.500 0-Iqy-818236:37 CBC, Platelets & Auto Diff Comments: PATIENT WAS FASTINGPERFORMED BY: Evision SystemsVirtua VoorheesQvvvyu1364 [facility] [id number] (80734) Immature Grans (Abs) 0.0 {x10E3/uL} (Normal) Range: 0.0-0.1 Immature Granulocytes 0 % (Normal) Baso (Absolute) 0.0 {x10E3/uL} (Normal) Range: 0.0-0.2 Eos (Absolute) 0.4 {x10E3/uL} (Normal) Range: 0.0-0.4 Monocytes(Absolute) 0.6 {x10E3/uL} (Normal) Range: 0.1-0.9 Lymphs (Absolute) 1.6 {x10E3/uL} (Normal) Range: 0.7-3.1 Neutrophils (Absolute) 4.5 {x10E3/uL} (Normal) Range: 1.4-7.0 Basos 1 % (Normal) Eos 6 % (Normal) Monocytes 9 % (Normal) Lymphs 22 % (Normal) Neutrophils 62 % (Normal) Platelets 315 {x10E3/uL} (Normal) Range: 150-379 RDW 13.9 % (Normal) Range: 12.3-15.4 MCHC 34.1 g/dL (Normal) Range: 31.5-35.7 MCH 30.7 pg (Normal) Range: 26.6-33.0 MCV 90 fL (Normal) Range: 79-97 Hematocrit 41.3 % (Normal) Range: 34.0-46.6 Hemoglobin 14.1 g/dL (Normal) Range: 11.1-15.9 RBC 4.60 {x10E6/uL} (Normal) Range: 3.77-5.28 WBC 7.1 {x10E3/uL} (Normal) Range: 3.4-10.8 6-Fzi-553586:37 Metabolic Panel, Comprehensive Comments: PATIENT WAS FASTINGPERFORMED BY: LabCoVirtua VoorheesHezkjx0706 [facility] [id number] (10887) ALT (SGPT) 14 [iU]/L (Normal) Range: 0-32 AST (SGOT) 14 [iU]/L (Normal) Range: 0-40 Alkaline Phosphatase 106 [iU]/L (Normal) Range: 39-117 Bilirubin, Total 0.3 mg/dL (Normal) Range: 0.0-1.2 A/G Ratio 1.7 (Normal) Range: 1.2-2.2 Globulin, Total 2.7 g/dL (Normal) Range: 1.5-4.5 Albumin 4.5 g/dL (Normal) Range: 3.6-4.8 Protein, Total 7.2 g/dL (Normal) Range: 6.0-8.5 Calcium 10.7 mg/dL (Abnormal) Range: 8.7-10.3 Carbon Dioxide, Total 26 mmol/L (Normal) Range: 20-29 Chloride 98 mmol/L (Normal) Range: 96-106 Potassium 4.6 mmol/L (Normal) Range: 3.5-5.2 Sodium 141 mmol/L (Normal) Range: 134-144 BUN/Creatinine Ratio 20 (Normal) Range: 12-28 eGFR If Africn Am 113 mL/min/1.73 (Normal) eGFR If NonAfricn Am 98 mL/min/1.73 (Normal) Creatinine 0.56 mg/dL (Abnormal) Range: 0.57-1.00 BUN 11 mg/dL (Normal) Range: 8-27 Glucose 98 mg/dL (Normal) Range: 65-99 :50 HgA1C , Office (16636) HgA1C , Office 6.4 % (Normal) Range: 4.6 - 7.1 :50 Blood Glucose , Office (01737) Blood Glucose , Office 137 (Normal) 3-Kmw-175462:51 CALCIFEDIOL (97148) Comments: PATIENT NOT FASTINGPERFORMED BY: [facility] Qpwwrs8270 [facility] [id number] Vitamin D, 25-Hydroxy 35.3 ng/mL (Normal) Range: 30.0-100.0 Comments: Vitamin D deficiency has been defined by the [place] ofMedicine and an Endocrine Society practice guideline as alevel of serum 25-OH vitamin D less than 20 ng/mL (1,2).The Endocrine Society went on to further define vitamin Dinsufficiency as a level between 21 and 29 ng/mL (2).1. IOM ([place] of Medicine). 2010. Dietary reference intakes for calcium and D. [place]: The National Academies Press.2. Eleni MF, Lorne [place], Dayron WALTON, et al. Evaluation, treatment, and prevention of vitamin D deficiency: an Endocrine Society clinical practice guideline. JCEM. 2010; 96(7):1911-30. 0-Ohs-328623:43 METANEPHRINES - URINE (38865) Comments: PATIENT NOT FASTINGPERFORMED BY: LabCoSarah [place] 247397 [facility] [id number] Metanephrine, U,24hr 120 {ug/24_hr} (Normal) Range: 45-290 Comments: (Hypertensive) >17 years 11 months: 35 - 460 Metanephrine, Ur 60 ug/L (Normal) Normetanephr.,U,24h 404 {ug/24_hr} (Normal) Range: 82-500 Comments: (Hypertensive) >17 years 11 months: 110 - 1050 Normetanephrine, Ur 202 ug/L (Normal) 1-Daz-723616:43 CATECHOLAMINES TOTAL, URINE Comments: PATIENT NOT FASTINGPERFORMED BY: [employer] [id number] Information: [id number] ([id number]) Dopamine, Ur, 24hr 356 {ug/24_hr} (Normal) Range: 0-510 Dopamine, Urine 178 ug/L (Normal) Norepinephrine,U,24h 78 {ug/24_hr} (Normal) Range: 0-135 Norepinephrine, Ur 39 ug/L (Normal) Epinephrine, U, 24hr 4 {ug/24_hr} (Normal) Range: 0-20 Epinephrine, Urine 2 ug/L (Normal) 2-Hxm-650224:43 URINE VMA (19236) Comments: PATIENT NOT FASTINGPERFORMED BY: [employer] [id number] VMA, Urine, 24hr 5.0 {mg/24_hr} (Normal) Range: 0.0-7.5 Comments: This test was developed and its performance characteristicsdetermined by [employer]. It has not been cleared or approvedby the Food and Drug Administration. VMA, Urine 2.5 mg/L (Normal) 06-Hgt-583132:44 URINE MEHREEN CULTURE-IDENTIFICATN Comments: PERFORMED BY: E[facility] SystemsVirtua VoorheesFjlkoh2286 [facility] [id number] Information: SRC:KAMI (78457) Result 1 MUG (Normal) Comments: Mixed urogenital flora1,000 Colonies/mL Urine Culture,Comprehensive Final report (Normal) 91-Udb-976195:41 Urinalysis, Office (57833) UA - LEUKOCYTE ESTERASE Moderate (Normal) UA - NITRITE Negative (Normal) URINE UROBILINGN SUNNY TIMED Normal mg/dL (Normal) UA - PROTEIN Negative mg/dL (Normal) UA - PH 6.0 (Normal) UA - BLOOD Hemolyzed Trace (Normal) UA - SPECIFIC GRAVITY 1.020 (Normal) UA - KETONES Negative mg/dL (Normal) UA - BILIRUBIN Negative (Normal) UA - GLUCOSE Negative (Normal) 50-Pjg-799920:10 CBC & PLATELETS (AUTO) Comments: PATIENT NOT FASTINGPERFORMED BY: LabCodeSquareVirtua VoorheesInngck2907 [facility] [id number] (29166) Platelets 270 {x10E3/uL} (Normal) Range: 150-379 RDW 13.8 % (Normal) Range: 12.3-15.4 MCHC 33.7 g/dL (Normal) Range: 31.5-35.7 MCH 29.7 pg (Normal) Range: 26.6-33.0 MCV 88 fL (Normal) Range: 79-97 Hematocrit 40.1 % (Normal) Range: 34.0-46.6 Hemoglobin 13.5 g/dL (Normal) Range: 11.1-15.9 RBC 4.54 {x10E6/uL} (Normal) Range: 3.77-5.28 WBC 6.8 {x10E3/uL} (Normal) Range: 3.4-10.8 28-Lsb-003988:10 RENAL FUNCTION PANEL (45787) Comments: PATIENT NOT FASTINGPERFORMED BY: LabCoVirtua VoorheesXezbzf9444 [facility] [id number] Albumin 3.8 g/dL (Normal) Range: 3.6-4.8 Phosphorus 2.2 mg/dL (Abnormal) Range: 2.5-4.5 Calcium 10.6 mg/dL (Abnormal) Range: 8.7-10.3 Carbon Dioxide, Total 26 mmol/L (Normal) Range: 20-29 Chloride 100 mmol/L (Normal) Range: 96-106 Potassium 3.9 mmol/L (Normal) Range: 3.5-5.2 Sodium 140 mmol/L (Normal) Range: 134-144 BUN/Creatinine Ratio 25 (Normal) Range: 12-28 eGFR If Africn Am 109 mL/min/1.73 (Normal) eGFR If NonAfricn Am 94 mL/min/1.73 (Normal) Creatinine 0.63 mg/dL (Normal) Range: 0.57-1.00 BUN 16 mg/dL (Normal) Range: 8-27 Glucose 133 mg/dL (Abnormal) Range: 65-99 08-Lor-693429:10 PARATHORMONE (40574) Comments: PATIENT NOT FASTINGPERFORMED BY: [facility] Cyrozp7560 [facility] [id number] PTH, Intact 32 pg/mL (Normal) Range: 15-65 90-Tro-923367:00 Urinalysis, Complete Comments: How was Urine Obtained? TECHNICAL SUPPORT SPECIALIST TO [facility] [address] [place], [address] MUCUS, URINE 0 SEEN {/hpf} (Normal) BACTERIA 0 SEEN {/hpf} (Normal) SQUAM EPI 0 SEEN {/hpf} (Normal) Range: 5-10 RBC-UA 0 SEEN {/hpf} (Normal) Range: 0-5 WBC 0-5 SEEN {/hpf} (Normal) Range: 0-5 LEUK ESTERASE Negative /ul (Normal) OCCULT BLOOD-UR Negative /ul (Normal) NITRITE UR Negative (Normal) UROBILI Normal mg/dL (Normal) PROT DIPSTX Negative mg/dL (Normal) pH UR 6.0 (Normal) Range: 5.0 - 8.0 SP.GR. DIPSTX 1.015 (Normal) Range: 1.002-1.030 KETONE UR 15 mg/dL (Abnormal) BILIRUBIN URINE Negative mg/dL (Normal) GLUCOSE, UR Normal mg/dL (Normal) CLARITY Clear (Normal) COLOR Yellow (Normal) 76-Qzi-627749:04 CBC W/Diff, Automated Comments: [facility] [address]snsfvaa6524 [facility] [place], [address] PLT EST ADEQUATE (Normal) SMEAR COMMENT SCANNED (Normal) Absolute Lymph 0.59 {X10_3/ul} (Abnormal) Range: 0.83-4.51 Absolute Neut 8.8 {X10_3/uL} (Abnormal) Range: 2.0-7.7 IM GRAN % 0.000 % (Normal) Range: 0.0-0.9 Comments: IG% - Immature Granulocytes (promyelocytes, myelocytes andmetamyelocytes) > 1% indicates that a LEFT SHIFT is Present. BASO% 0.2 % (Normal) Range: 0-1 EO% 0.0 % (Normal) Range: 0-5 MONO% 2.9 % (Normal) Range: 0-10 LY% 6.1 % (Abnormal) Range: 19-41 NEUT% 90.8 % (Abnormal) Range: 47-70 MPV 11.1 fL (Normal) Range: 6.2-12.0 PLT 233 K/mm3 (Normal) Range: 150-450 RDW SD 41.6 fL (Normal) Range: 35.1-43.9 RDW CV 12.8 % (Normal) Range: 11.6-14.6 MCHC 33.3 {g/gl} (Normal) Range: 32-36 MCH 29.8 pg (Normal) Range: 27.0-32.0 MCV 89.4 fL (Normal) Range: 81-99 HCT 42.0 % (Normal) Range: 37-47 HGB 14.0 g/dL (Normal) Range: 12.0-15.0 RBC 4.70 {M/mm3} (Normal) Range: 4.2-5.4 WBC 9.7 K/mm3 (Normal) Range: 4.4-11.0 88-Wos-393769:04 Comprehensive Metabolic Profil Comments: [facility] [address] [place], [address] GAP 8 (Normal) Range: 5-15 CO2 26.0 mmol/L (Normal) Range: 21.0-32.0 CL 102 mmol/L (Normal) Range: 98-107 K 3.8 mmol/L (Normal) Range: 3.5-5.1 NA 136 mmol/L (Normal) Range: 136-145 T BILI 0.60 mg/dL (Normal) Range: 0.20-1.00 ALT 24 U/L (Normal) Range: 13-56 ALK P 122 U/L (Abnormal) Range: 45-117 AST 21 U/L (Normal) Range: 15-37 CA 10.5 mg/dL (Abnormal) Range: 8.5-10.1 A/G 0.8 {RATIO} (Abnormal) Range: 0.9-2.4 GLOB 4.4 g/dL (Abnormal) Range: 2.2-4.2 ALB 3.7 g/dL (Normal) Range: 3.2-5.0 T PROT 8.1 g/dL (Normal) Range: 6.4-8.2 BUN/CRE 16.9 {RATIO} (Normal) Range: 10-20 Estimated CRCL 68.19 ml/min (Normal) EST GFR - AA 97 mL/min (Normal) Comments: GFR Calc EST GFR 80 mL/min (Normal) Comments: Non- GFR Calc CREAT,SERUM 0.77 mg/dL (Normal) Range: 0.55-1.02 Comments: The validity of the calculated GFR AND GFRAA in patients over70 years has not been determined. Clinical correlation isessential. BUN 13 mg/dL (Normal) Range: 7-18 GLU 203 mg/dL (Abnormal) Range: 74-106 Comments: Glucose result greater than or equal to 200 mg/dLsuggests DIABETES MELLITUS per A.D.A. criteria.Please note revised GLUCOSE reference range felmjtabt04/02/2018. 95-Yae-721247:04 Lipase Comments: [facility] [address]wrphk2995 [facility] [place], [place], [address] LIPASE 346 U/L (Normal) Range: 73-393 05-Qqk-329105:04 Troponin-I Comments: [place] [id number] [facility]. [place], [place], [address] TROPONIN-I < 0.015 ng/mL (Normal) Comments: TROPONIN-I EXPECTED VALUES <0.045 Negative 0.045 - 0.590 Consistent with Cardiac Damage > OR = 0.600 Critical Value Not every elevated troponin is indicative of PR. T hesevalues should be used with clinical judgement in examiningthe patient's clinical picture for diagnosis. To establisha diagnosis of PR versus myocardial injury, there must be ademonstrated rise and/ or fall in the troponin values, inaddition to ischemic symptoms, EKG changes, new regionalwall motion abnormality, and/or angiographical evidence. PLEASE NOTE: REFERENCE RANGES EDITED 11/08/1712-Jan-201882-Eir-390534:27 TSH (THYROID STIMULATING Comments: January 12; PATIENT WAS FASTINGPERFORMED BY: [facility]6370 [facility] [id number] HORMONE) (35149) TSH 1.920 {uIU/mL} (Normal) Range: 0.450-4.500 74-Dur-657909:27 CBC & PLATELETS (AUTO) Comments: after January 12; PATIENT WAS FASTINGPERFORMED BY: [address] [id number] Information: [id number] (76859) Platelets 288 {x10E3/uL} (Normal) Range: 150-379 RDW 13.8 % (Normal) Range: 12.3-15.4 MCHC 34.8 g/dL (Normal) Range: 31.5-35.7 MCH 30.8 pg (Normal) Range: 26.6-33.0 MCV 88 fL (Normal) Range: 79-97 Hematocrit 40.2 % (Normal) Range: 34.0-46.6 Hemoglobin 14.0 g/dL (Normal) Range: 11.1-15.9 RBC 4.55 {x10E6/uL} (Normal) Range: 3.77-5.28 WBC 6.2 {x10E3/uL} (Normal) Range: 3.4-10.8 17-Wed-986310:27 LIPID PANEL (35753) Comments: after January 12; PATIENT WAS FASTINGPERFORMED BY: [facility]vision SystemsJoel [place] [id number] [facility] [id number] LDL/HDL Ratio 2.1 {ratio} (Normal) Range: 0.0-3.2 Comments: LDL/HDL Ratio Men Women 1/2 Avg.Risk 1.0 1.5 Av g.Risk 3.6 3.2 2X Avg.Risk 6.2 5.0 3X Avg.Risk 8.0 6.1 LDL Cholesterol Calc 88 mg/dL (Normal) Range: 0-99 VLDL Cholesterol Edgardo 46 mg/dL (Abnormal) Range: 5-40 HDL Cholesterol 42 mg/dL (Normal) Triglycerides 230 mg/dL (Abnormal) Range: 0-149 Cholesterol, Total 176 mg/dL (Normal) Range: 100-199 18-Vkj-739052:27 HGB A1C (37195) Comments: do after January 12; PATIENT WAS FASTINGPERFORMED BY: [employer] [id number] Hemoglobin A1c 7.6 % (Abnormal) Range: 4.8-5.6 Comments: . Pre-diabetes: 5.7 - 6.4 Diabetes: >6.4 Glycemic control for adults with diabetes: <7.0 06-Opy-112282:30 Basic Metabolic Profile (BMP) Comments: [facility] [address] [place], [place], [id number] GAP 8 (Normal) Range: 5-15 CO2 25.0 mmol/L (Normal) Range: 21.0-32.0 CL 107 mmol/L (Normal) Range: 98-107 K 3.9 mmol/L (Normal) Range: 3.5-5.1 NA 140 mmol/L (Normal) Range: 136-145 CA 9.8 mg/dL (Normal) Range: 8.5-10.1 BUN/CRE 16.6 {RATIO} (Normal) Range: 10-20 Estimated CRCL 75.75 ml/min (Normal) EST GFR - AA 104 mL/min (Normal) Comments: GFR Calc EST GFR 86 mL/min (Normal) Comments: Non- GFR Calc CREAT,SERUM 0.72 mg/dL (Normal) Range: 0.55-1.02 Comments: The validity of the calculated GFR AND GFRAA in patients over70 years has not been determined. Clinical correlation isessential. BUN 12 mg/dL (Normal) Range: 7-18 GLU 201 mg/dL (Abnormal) Range: 74-106 Comments: Glucose result greater than or equal to 200 mg/dLsuggests DIABETES MELLITUS per A.D.A. criteria.Please note revised GLUCOSE reference range qhzvkirhs93/02/2018. 68-Wlh-352717:30 Carboxyhemoglobin Frac (CO) Comments: [facility] [address] [place], [place], [id number] COHb 2.1 % (Abnormal) Range: 0.0-1.5 Comments: * NON-SMOKER RANGE 1.6 - 5.0% * LIGHT SMOKER RANGE 5.1 - 9.0% * HEAVY SMOKER RANGE 86-Sya-768197:30 CBC W/Diff, Automated Comments: [facility] [address] [place], [place], [phone] Absolute Lymph 0.66 {X10_3/ul} (Abnormal) Range: 0.83-4.51 Absolute Neut 11.5 {X10_3/uL} (Abnormal) Range: 2.0-7.7 IM GRAN % 0.100 % (Normal) Range: 0.0-0.9 Comments: IG% - Immature Granulocytes (promyelocytes, myelocytes andmetamyelocytes) > 1% indicates that a LEFT SHIFT is Present. BASO% 0.2 % (Normal) Range: 0-1 EO% 0.0 % (Normal) Range: 0-5 MONO% 5.6 % (Normal) Range: 0-10 LY% 5.1 % (Abnormal) Range: 19-41 NEUT% 89.0 % (Abnormal) Range: 47-70 MPV 11.3 fL (Normal) Range: 6.2-12.0 PLT 252 K/mm3 (Normal) Range: 150-450 RDW SD 41.0 fL (Normal) Range: 35.1-43.9 RDW CV 12.8 % (Normal) Range: 11.6-14.6 MCHC 33.2 {g/gl} (Normal) Range: 32-36 MCH 29.4 pg (Normal) Range: 27.0-32.0 MCV 88.6 fL (Normal) Range: 81-99 HCT 41.9 % (Normal) Range: 37-47 HGB 13.9 g/dL (Normal) Range: 12.0-15.0 RBC 4.73 {M/mm3} (Normal) Range: 4.2-5.4 WBC 12.9 K/mm3 (Abnormal) Range: 4.4-11.0 81-Ztl-171975:30 Lipase Comments: [facility] [address] [place], [address] LIPASE 126 U/L (Normal) Range: 73-393 14-Iyw-760329:30 Liver Profile Comments: [facility] [address] [place], [address] D BILI 0.13 mg/dL (Normal) Range: 0.00-0.30 T BILI 0.50 mg/dL (Normal) Range: 0.20-1.00 ALT 32 U/L (Normal) Range: 13-56 ALK P 154 U/L (Abnormal) Range: 45-117 AST 25 U/L (Normal) Range: 15-37 GLOB 4.2 g/dL (Normal) Range: 2.2-4.2 ALB 3.5 g/dL (Normal) Range: 3.2-5.0 T PROT 7.7 g/dL (Normal) Range: 6.4-8.2 82-Yqy-060901:30 Urinalysis, Complete Comments: Order Date: 12/25/17How was Urine Obtained? CLEAN [facility] [address] [place], [place], [id number] MUCUS, URINE 0 SEEN {/hpf} (Normal) BACTERIA 0 SEEN {/hpf} (Normal) SQUAM EPI 0-5 SEEN {/hpf} (Normal) Range: 5-10 RBC-UA 0-5 SEEN {/hpf} (Normal) Range: 0-5 WBC 0 SEEN {/hpf} (Normal) Range: 0-5 LEUK ESTERASE 25 /ul (Abnormal) OCCULT BLOOD-UR Negative /ul (Normal) NITRITE UR Negative (Normal) UROBILI Normal mg/dL (Normal) PROT DIPSTX 15 mg/dL (Abnormal) pH UR 6.0 (Normal) Range: 5.0 - 8.0 SP.GR. DIPSTX 1.010 (Normal) Range: 1.002-1.030 KETONE UR Negative mg/dL (Normal) BILIRUBIN URINE Negative mg/dL (Normal) GLUCOSE, UR 1000 mg/dL (Abnormal) CLARITY Clear (Normal) COLOR Yellow (Normal) 55-Nnp-546907:17 Urinalysis, Office (55786) UA - LEUKOCYTE ESTERASE Negative (Normal) UA - NITRITE Negative (Normal) URINE UROBILINGN SUNNY TIMED Normal mg/dL (Normal) UA - PROTEIN Negative mg/dL (Normal) UA - PH 5.0 (Normal) Comments: 5.5 UA - BLOOD Hemolyzed Trace (Normal) UA - SPECIFIC GRAVITY 1.005 (Normal) UA - KETONES Negative mg/dL (Normal) UA - BILIRUBIN Negative (Normal) UA - GLUCOSE 500 (Abnormal) 07-Yzu-378146:15 URINE MEHREEN CULTURE-SUNNY COL Comments: PATIENT NOT FASTINGPERFORMED BY: TARAS [facility] Ztwhbn6633 [facility] [id number] Information: SRC:UC COUNT ([id number]) Result 1 MUG (Normal) Comments: Mixed urogenital flora10,000-25,000 colony forming units per mL Urine Final report (Normal) Culture,Comprehensive 20-Osb-810472:48 URINE MEHREEN CULTURE-IDENTIFICATN Comments: PATIENT NOT FASTINGPERFORMED BY: [employer] Lqhhck5620 [facility] [id number] Information: SRC:UC (85302) Antimicrobial MIHEAD (Normal) Comments: S = Susceptible; I = Intermediate; R = Resistant P = Positive; N = Negative MICS are expressed in micrograms per mL Antibiotic RSLT#1 RSLT#2 RS Susceptibility LT#3 RSLT#4Amoxicillin/Clavulanic Acid SAmpicillin RCefepime SCeftriaxone SCefuroxime SCiprofloxacin SErtapenem SGentamicin SImipenem SLevofloxacin SMeropenem SNitrofurantoin SPipera cillin/Tazobactam STetracycline RTobramycin STrimethoprim/Sulfa R Result 1 Escherichia coli Comments: Greater than 100,000 colony forming units per mL (Abnormal) Urine Final report Culture,Comprehensive (Abnormal) 55-Vvl-624360:24 Urinalysis, Office (82528) UA - LEUKOCYTE ESTERASE Small (Normal) UA - NITRITE Negative (Normal) URINE UROBILINGN SUNNY TIMED Normal mg/dL (Normal) UA - PROTEIN Trace mg/dL (Normal) UA - PH 6 (Abnormal) UA - BLOOD Hemolyzed Large (Normal) UA - SPECIFIC GRAVITY 1.015 (Normal) UA - KETONES Negative mg/dL (Normal) UA - BILIRUBIN Negative (Normal) UA - GLUCOSE 500 (Abnormal) 72-Btb-561130:33 Blood Glucose , Office (95304) Blood Glucose , Office 159 (Normal) 04-Akc-355861:33 HgA1C , Office (50015) HgA1C , Office 7.0 % (Normal) Range: 4.6 - 7.1 79-Pzt-858750:10 CBC, Platelets & Auto Diff Comments: PATIENT WAS FASTINGPERFORMED BY: [employer] Chkxin9338 [facility] [id number] (78829) Immature Grans (Abs) 0.0 {x10E3/uL} (Normal) Range: 0.0-0.1 Immature Granulocytes 0 % (Normal) Baso (Absolute) 0.1 {x10E3/uL} (Normal) Range: 0.0-0.2 Eos (Absolute) 0.5 {x10E3/uL} (Abnormal) Range: 0.0-0.4 Monocytes(Absolute) 0.7 {x10E3/uL} (Normal) Range: 0.1-0.9 Lymphs (Absolute) 1.5 {x10E3/uL} (Normal) Range: 0.7-3.1 Neutrophils (Absolute) 4.3 {x10E3/uL} (Normal) Range: 1.4-7.0 Basos 1 % (Normal) Eos 7 % (Normal) Monocytes 10 % (Normal) Lymphs 21 % (Normal) Neutrophils 61 % (Normal) Platelets 333 {x10E3/uL} (Normal) Range: 150-379 RDW 13.8 % (Normal) Range: 12.3-15.4 MCHC 34.0 g/dL (Normal) Range: 31.5-35.7 MCH 30.1 pg (Normal) Range: 26.6-33.0 MCV 89 fL (Normal) Range: 79-97 Hematocrit 42.1 % (Normal) Range: 34.0-46.6 Hemoglobin 14.3 g/dL (Normal) Range: 11.1-15.9 RBC 4.75 {x10E6/uL} (Normal) Range: 3.77-5.28 WBC 7.0 {x10E3/uL} (Normal) Range: 3.4-10.8 62-Eys-177414:10 HGB A1C (90409) Comments: PATIENT WAS FASTINGPERFORMED BY: [employer] [facility] [id number] Hemoglobin A1c 7.4 % (Abnormal) Range: 4.8-5.6 Comments: . Pre-diabetes: 5.7 - 6.4 Diabetes: >6.4 Glycemic control for adults with diabetes: <7.0 29-Okk-529968:10 LIPID PANEL (82136) Comments: PATIENT WAS FASTINGPERFORMED BY: [employer] [facility] [id number] LDL/HDL Ratio 2.4 {ratio} (Normal) Range: 0.0-3.2 Comments: LDL/HDL Ratio Men Women 1/2 Avg.Risk 1.0 1.5 Av g.Risk 3.6 3.2 2X Avg.Risk 6.2 5.0 3X Avg.Risk 8.0 6.1 LDL Cholesterol Calc 107 mg/dL (Abnormal) Range: 0-99 VLDL Cholesterol Edgardo 28 mg/dL (Normal) Range: 5-40 HDL Cholesterol 45 mg/dL (Normal) Triglycerides 138 mg/dL (Normal) Range: 0-149 Cholesterol, Total 180 mg/dL (Normal) Range: 100-199 55-Oha-970733:10 Metabolic Panel, Comprehensive Comments: PATIENT WAS FASTINGPERFORMED BY: TARAS [facility] Hjjbhu5356 [facility] [id number] (30004) ALT (SGPT) 15 [iU]/L (Normal) Range: 0-32 AST (SGOT) 20 [iU]/L (Normal) Range: 0-40 Alkaline Phosphatase 84 [iU]/L (Normal) Range: 39-117 Bilirubin, Total 0.3 mg/dL (Normal) Range: 0.0-1.2 A/G Ratio 1.6 (Normal) Range: 1.2-2.2 Globulin, Total 2.7 g/dL (Normal) Range: 1.5-4.5 Albumin 4.3 g/dL (Normal) Range: 3.6-4.8 Protein, Total 7.0 g/dL (Normal) Range: 6.0-8.5 Calcium 10.4 mg/dL (Abnormal) Range: 8.7-10.3 Carbon Dioxide, Total 24 mmol/L (Normal) Range: 18-29 Chloride 101 mmol/L (Normal) Range: 96-106 Potassium 5.0 mmol/L (Normal) Range: 3.5-5.2 Sodium 140 mmol/L (Normal) Range: 134-144 BUN/Creatinine Ratio 18 (Normal) Range: 12-28 eGFR If Africn Am 107 mL/min/1.73 (Normal) eGFR If NonAfricn Am 93 mL/min/1.73 (Normal) Creatinine 0.67 mg/dL (Normal) Range: 0.57-1.00 BUN 12 mg/dL (Normal) Range: 8-27 Glucose 141 mg/dL (Abnormal) Range: 65-99 72-Cpu-781240:10 MICROALBUMIN: CREATININE RATIO Comments: PATIENT WAS FASTINGPERFORMED BY: [facility] CorporationM[facility] Center6370 [facility] [id number] (03160) AND (45302) Alb/Creat Ratio <3.8 {mg/g_creat} (Normal) Range: 0.0-30.0 Albumin, Urine <3.0 ug/mL (Normal) Creatinine, Urine 78.1 mg/dL (Normal) 43-Myg-843473:10 TSH (02733) Comments: PATIENT WAS FASTINGPERFORMED BY: [facility] SystemsCrownpoint Health Care FacilityBnbwmk2699 [facility] [id number] TSH 2.160 {uIU/mL} (Normal) Range: 0.450-4.500 90-Rye-608824:10 URINALYSIS W/O MICRO (15110) Comments: PATIENT WAS FASTINGPERFORMED BY: [facility] SystemsVirtua VoorheesYmadkf1040 [facility] [id number] Microscopic Examination MICNIP (Normal) Comments: Microscopic not indicated and not performed. Nitrite, Urine Negative (Normal) Urobilinogen,Semi-Qn 0.2 mg/dL (Normal) Range: 0.2-1.0 Bilirubin Negative (Normal) Occult Blood Negative (Normal) Ketones Negative (Normal) Glucose 3+ (Abnormal) Protein Negative (Normal) WBC Esterase Negative (Normal) Appearance Clear (Normal) Urine-Color Yellow (Normal) pH 5.5 (Normal) Range: 5.0-7.5 Specific [place] >=1.030 (Abnormal) Range: 1.005-1.030 90-Aej-742447:17 HGB A1C (47699) Comments: today; PATIENT NOT FASTINGPERFORMED BY: [facility] CorporationM[facility] Center6370 [facility] [id number] Hemoglobin A1c 7.4 % (Abnormal) Range: 4.8-5.6 Comments: . Pre-diabetes: 5.7 - 6.4 Diabetes: >6.4 Glycemic control for adults with diabetes: <7.0 25-Zak-369095:14 TSH (THYROID STIMULATING Comments: PATIENT WAS FASTINGPERFORMED BY: [facility]6370 [facility] [id number] HORMONE) (85791) TSH 2.750 {uIU/mL} (Normal) Range: 0.450-4.500 :14 Lipid Panel (18659) Comments: PATIENT WAS FASTINGPERFORMED BY: [facility]6370 [facility] [id number] LDL/HDL Ratio 2.0 {ratio_units} (Normal) Range: 0.0-3.2 Comments: LDL/HDL Ratio Men Women 1/2 Avg.Risk 1.0 1.5 Av g.Risk 3.6 3.2 2X Avg.Risk 6.2 5.0 3X Avg.Risk 8.0 6.1 LDL Cholesterol Calc 96 mg/dL (Normal) Range: 0-99 VLDL Cholesterol Edgardo 22 mg/dL (Normal) Range: 5-40 HDL Cholesterol 49 mg/dL (Normal) Triglycerides 110 mg/dL (Normal) Range: 0-149 Cholesterol, Total 167 mg/dL (Normal) Range: 100-199 98-Tmj-054391:14 CALCIFEDIOL (22646) Comments: PATIENT WAS FASTINGPERFORMED BY: [facility]6370 [facility] [id number] Vitamin D, 25-Hydroxy 30.7 ng/mL (Normal) Range: 30.0-100.0 Comments: Vitamin D deficiency has been defined by the [place] ofMedicine and an Endocrine Society practice guideline as alevel of serum 25-OH vitamin D less than 20 ng/mL (1,2).The Endocrine Society went on to further define vitamin Dinsufficiency as a level between 21 and 29 ng/mL (2).1. IOM ([place] of Medicine). 2010. Dietary reference intakes for calcium and D. [place]: The National Academies Press.2. Eleni MF, Lorne MORTON, Dayron WALTON, et al. Evaluation, treatment, and prevention of vitamin D deficiency: an Endocrine Society clinical practice guideline. JCEM. 2010; 96(7):1911-30. 85-Ayc-130713:14 Metabolic Panel, Comprehensive Comments: PATIENT WAS FASTINGPERFORMED BY: [facility]6370 [facility] [id number] (81489) ALT (SGPT) 11 [iU]/L (Normal) Range: 0-32 AST (SGOT) 13 [iU]/L (Normal) Range: 0-40 Alkaline Phosphatase, S 65 [iU]/L (Normal) Range: 39-117 Bilirubin, Total 0.3 mg/dL (Normal) Range: 0.0-1.2 A/G Ratio 1.9 (Normal) Range: 1.2-2.2 Globulin, Total 2.2 g/dL (Normal) Range: 1.5-4.5 Albumin, Serum 4.2 g/dL (Normal) Range: 3.6-4.8 Protein, Total, Serum 6.4 g/dL (Normal) Range: 6.0-8.5 Calcium, Serum 9.9 mg/dL (Normal) Range: 8.7-10.3 Carbon Dioxide, Total 25 mmol/L (Normal) Range: 18-29 Chloride, Serum 102 mmol/L (Normal) Range: 96-106 Potassium, Serum 4.5 mmol/L (Normal) Range: 3.5-5.2 Sodium, Serum 143 mmol/L (Normal) Range: 134-144 BUN/Creatinine Ratio 23 (Normal) Range: 12-28 eGFR If Africn Am 108 mL/min/1.73 (Normal) eGFR If NonAfricn Am 94 mL/min/1.73 (Normal) Creatinine, Serum 0.66 mg/dL (Normal) Range: 0.57-1.00 BUN 15 mg/dL (Normal) Range: 8-27 Glucose, Serum 150 mg/dL (Abnormal) Range: 65-99 64-Fxg-160053:14 HGB A1C (65616) Comments: PATIENT WAS FASTINGPERFORMED BY: TARAS [facility]6370 [facility] [id number] Hemoglobin A1c 6.3 % (Abnormal) Range: 4.8-5.6 Comments: . Pre-diabetes: 5.7 - 6.4 Diabetes: >6.4 Glycemic control for adults with diabetes: <7.0; ADDENDA: OV 19-Jan-201712:28 Angiotensin Convert Enzyme Comments: [facility] (refer to report for specific site)refer to report for address and phone number JHONNY [phone] U/L (Normal) Range: 14-82 Comments: Performed at: - [facility] [id number] [place], [place] [id number] Director: Jarrell Collazo PhD, Phone: [phone]; ADDENDA: Dr Granado 78-Xgm-625604:28 Erythrocyte Sed Rate Comments: [facility] [address] [place], [place], [address] SED RATE 6 mm/h (Normal) Range: 0-30 57-Ljb-383533:35 CBC, Platelets & Auto Diff Comments: PATIENT NOT FASTINGPERFORMED BY: [facility] [address] [facility] [id number] (75396) Immature Grans (Abs) 0.0 {x10E3/uL} (Normal) Range: 0.0-0.1 Immature Granulocytes 0 % (Normal) Baso (Absolute) 0.1 {x10E3/uL} (Normal) Range: 0.0-0.2 Eos (Absolute) 0.3 {x10E3/uL} (Normal) Range: 0.0-0.4 Monocytes(Absolute) 0.5 {x10E3/uL} (Normal) Range: 0.1-0.9 Lymphs (Absolute) 1.7 {x10E3/uL} (Normal) Range: 0.7-3.1 Neutrophils (Absolute) 3.9 {x10E3/uL} (Normal) Range: 1.4-7.0 Basos 1 % (Normal) Eos 5 % (Normal) Monocytes 8 % (Normal) Lymphs 27 % (Normal) Neutrophils 59 % (Normal) Platelets 351 {x10E3/uL} (Normal) Range: 150-379 RDW 13.4 % (Normal) Range: 12.3-15.4 MCHC 33.2 g/dL (Normal) Range: 31.5-35.7 MCH 30.0 pg (Normal) Range: 26.6-33.0 MCV 90 fL (Normal) Range: 79-97 Hematocrit 41.3 % (Normal) Range: 34.0-46.6 Hemoglobin 13.7 g/dL (Normal) Range: 11.1-15.9 RBC 4.57 {x10E6/uL} (Normal) Range: 3.77-5.28 WBC 6.5 {x10E3/uL} (Normal) Range: 3.4-10.8 :35 HGB A1C (37425) Comments: PATIENT NOT FASTINGPERFORMED BY: [facility] CorporationM[facility] Center6370 [facility] [id number] Hemoglobin A1c 6.7 % (Abnormal) Range: 4.8-5.6 Comments: . Pre-diabetes: 5.7 - 6.4 Diabetes: >6.4 Glycemic control for adults with diabetes: <7.0 :35 Metabolic Panel, Basic Comments: PATIENT NOT FASTINGPERFORMED BY: [facility] SystemsVirtua VoorheesUnwxnq5223 [facility] [id number] (64414) Calcium, Serum 10.6 mg/dL (Abnormal) Range: 8.7-10.3 Carbon Dioxide, Total 24 mmol/L (Normal) Range: 18-29 Chloride, Serum 102 mmol/L (Normal) Range: 96-106 Potassium, Serum 4.4 mmol/L (Normal) Range: 3.5-5.2 Sodium, Serum 143 mmol/L (Normal) Range: 134-144 BUN/Creatinine Ratio 21 (Normal) Range: 12-28 eGFR If Africn Am 97 mL/min/1.73 (Normal) eGFR If NonAfricn Am 85 mL/min/1.73 (Normal) Creatinine, Serum 0.75 mg/dL (Normal) Range: 0.57-1.00 BUN 16 mg/dL (Normal) Range: 8-27 Glucose, Serum 85 mg/dL (Normal) Range: 65-99 :29 Microscopic Examination Comments: PATIENT WAS FASTINGPERFORMED BY: [facility]6370 [facility] [id number] Bacteria Few (Normal) Mucus Threads Present (Normal) Cast Type Hyaline casts (Normal) Casts Present {/lpf} (Abnormal) Epithelial Cells (non renal) 0-10 {/hpf} (Normal) Range: 0 - 10 RBC 0-2 {/hpf} (Normal) Range: 0 - 2 WBC 0-5 {/hpf} (Normal) Range: 0 - 5 :29 URINALYSIS (68030) Comments: PATIENT WAS FASTINGPERFORMED BY: [employer] Vzeuul0306 [facility] [id number] Microscopic Examination See below: (Normal) Comments: Microscopic was indicated and was performed. Nitrite, Urine Negative (Normal) Urobilinogen,Semi-Qn 0.2 mg/dL (Normal) Range: 0.2-1.0 Bilirubin Negative (Normal) Occult Blood Negative (Normal) Ketones Negative (Normal) Glucose Negative (Normal) Protein Trace (Normal) WBC Esterase 1+ (Abnormal) Appearance Clear (Normal) Urine-Color Yellow (Normal) pH 6.0 (Normal) Range: 5.0-7.5 Specific [place] 1.027 (Normal) Range: 1.005-1.030 :29 MICROALBUMIN: CREATININE RATIO Comments: PATIENT WAS FASTINGPERFORMED BY: [employer] Xzhkvf2006 [facility] [id number] (34276) AND (04575) Microalb/Creat Ratio 11.0 {mg/g_creat} (Normal) Range: 0.0-30.0 Microalbumin, Urine 29.4 ug/mL (Normal) Creatinine, Urine 266.4 mg/dL (Normal) :29 CALCIFEDIOL (95711) Comments: PATIENT WAS FASTINGPERFORMED BY: [employer] Lbhfgm1981 [facility] [id number] Vitamin D, 25-Hydroxy 29.5 ng/mL (Abnormal) Range: 30.0-100.0 Comments: Vitamin D deficiency has been defined by the [place] ofMedicine and an Endocrine Society practice guideline as alevel of serum 25-OH vitamin D less than 20 ng/mL (1,2).The Endocrine Society went on to further define vitamin Dinsufficiency as a level between 21 and 29 ng/mL (2).1. IOM ([place] of Medicine). 2010. Dietary reference intakes for calcium and D. [place]: The National Academies Press.2. Eleni MF, Lorne NC, Dayron WALTON, et al. Evaluation, treatment, and prevention of vitamin D deficiency: an Endocrine Society clinical practice guideline. JCEM. 2010; 96(7):7691-30. 14-Ksw-201577:29 Lipid Panel (12885) Comments: PATIENT WAS FASTINGPERFORMED BY: [facility] SystemsVirtua VoorheesNssnfp1573 [facility] [id number] LDL/HDL Ratio 1.9 {ratio_units} (Normal) Range: 0.0-3.2 Comments: LDL/HDL Ratio Men Women 1/2 Avg.Risk 1.0 1.5 Av g.Risk 3.6 3.2 2X Avg.Risk 6.2 5.0 3X Avg.Risk 8.0 6.1 LDL Cholesterol Calc 100 mg/dL (Abnormal) Range: 0-99 VLDL Cholesterol Edgardo 25 mg/dL (Normal) Range: 5-40 HDL Cholesterol 52 mg/dL (Normal) Triglycerides 125 mg/dL (Normal) Range: 0-149 Cholesterol, Total 177 mg/dL (Normal) Range: 100-199 61-Hii-739796:29 Metabolic Panel, Comprehensive Comments: PATIENT WAS FASTINGPERFORMED BY: [facility] SystemsVirtua VoorheesFpbffi7909 [facility] [id number] (13389) ALT (SGPT) 14 [iU]/L (Normal) Range: 0-32 AST (SGOT) 16 [iU]/L (Normal) Range: 0-40 Alkaline Phosphatase, S 77 [iU]/L (Normal) Range: 39-117 Bilirubin, Total 0.3 mg/dL (Normal) Range: 0.0-1.2 A/G Ratio 1.5 (Normal) Range: 1.1-2.5 Comments: Effective September 07, 2016 the reference interval for A/G Ratio will be changing to: Age Male Female 0 - 7 d ays 1.1 - 2.3 1.1 - 2.3 8 - 30 days 1.2 - 2.8 1.2 - 2.8 1 - 6 months 1.3 - 3.6 1.3 - 3.6 7 months - 5 years 1.5 - 2.6 1.5 - 2.6 > 5 years 1.2 - 2.2 1.2 - 2.2 Globulin, Total 2.8 g/dL (Normal) Range: 1.5-4.5 Albumin, Serum 4.2 g/dL (Normal) Range: 3.6-4.8 Protein, Total, Serum 7.0 g/dL (Normal) Range: 6.0-8.5 Calcium, Serum 10.6 mg/dL (Abnormal) Range: 8.7-10.3 Carbon Dioxide, Total 24 mmol/L (Normal) Range: 18-29 Chloride, Serum 100 mmol/L (Normal) Range: 96-106 Potassium, Serum 4.6 mmol/L (Normal) Range: 3.5-5.2 Sodium, Serum 143 mmol/L (Normal) Range: 134-144 BUN/Creatinine Ratio 21 (Normal) Range: 11-26 eGFR If Africn Am 108 mL/min/1.73 (Normal) eGFR If NonAfricn Am 94 mL/min/1.73 (Normal) Creatinine, Serum 0.67 mg/dL (Normal) Range: 0.57-1.00 BUN 14 mg/dL (Normal) Range: 8-27 Glucose, Serum 77 mg/dL (Normal) Range: 65-99 59-Nlx-699643:29 CBC, Platelets & Auto Diff Comments: PATIENT WAS FASTINGPERFORMED BY: [facility] Yksyxz6926 [facility] [id number] (96564) Immature Grans (Abs) 0.0 {x10E3/uL} (Normal) Range: 0.0-0.1 Immature Granulocytes 0 % (Normal) Baso (Absolute) 0.1 {x10E3/uL} (Normal) Range: 0.0-0.2 Eos (Absolute) 0.4 {x10E3/uL} (Normal) Range: 0.0-0.4 Monocytes(Absolute) 0.6 {x10E3/uL} (Normal) Range: 0.1-0.9 Lymphs (Absolute) 1.3 {x10E3/uL} (Normal) Range: 0.7-3.1 Neutrophils (Absolute) 4.3 {x10E3/uL} (Normal) Range: 1.4-7.0 Basos 1 % (Normal) Eos 7 % (Normal) Monocytes 9 % (Normal) Lymphs 19 % (Normal) Neutrophils 64 % (Normal) Platelets 384 {x10E3/uL} (Abnormal) Range: 150-379 RDW 13.3 % (Normal) Range: 12.3-15.4 MCHC 33.3 g/dL (Normal) Range: 31.5-35.7 MCH 30.2 pg (Normal) Range: 26.6-33.0 MCV 91 fL (Normal) Range: 79-97 Hematocrit 42.0 % (Normal) Range: 34.0-46.6 Hemoglobin 14.0 g/dL (Normal) Range: 11.1-15.9 RBC 4.64 {x10E6/uL} (Normal) Range: 3.77-5.28 WBC 6.6 {x10E3/uL} (Normal) Range: 3.4-10.8 :29 TSH (10135) Comments: PATIENT WAS FASTINGPERFORMED BY: [facility]6370 [facility] [id number] TSH 2.240 {uIU/mL} (Normal) Range: 0.450-4.500 :29 HGB A1C (13790) Comments: PATIENT WAS FASTINGPERFORMED BY: [facility] Yhzqyg8016 [facility] [id number] Hemoglobin A1c 6.7 % (Abnormal) Range: 4.8-5.6 Comments: . Pre-diabetes: 5.7 - 6.4 Diabetes: >6.4 Glycemic control for adults with diabetes: <7.0 :23 HGB A1C (90813) Comments: PATIENT NOT FASTINGPERFORMED BY: [facility]6370 [facility] [id number] Hemoglobin A1c 6.4 % (Abnormal) Range: 4.8-5.6 Comments: . Pre-diabetes: 5.7 - 6.4 Diabetes: >6.4 Glycemic control for adults with diabetes: <7.0 63-Zgl-177059:06 Blood Glucose , Office (88686) Blood Glucose , Office 84 (Normal) : Hemoglobin A1c 6.7 % (Abnormal) Comments: PATIENT NOT FASTINGPERFORMED BY: [facility]6370 [facility] [id number] Information: [id number] Range: 4.8-5.6 Comments: . Pre-diabetes: 5.7 - 6.4 Diabetes: >6.4 Glycemic control for adults with diabetes: <7.0 :13 HgA1C , Office (46929) HgA1C , Office 6.6 % (Normal) Range: 4.6 - 7.1 :07 Blood Glucose , Office (30525) Blood Glucose , Office 97 (Normal) :51 HgA1C , Office (91542) HgA1C , Office 6.9 % (Normal) Range: 4.6 - 7.1 :51 Blood Glucose , Office (58495) Blood Glucose , Office 129 (Normal) :35 Sputum Culture (97084) Comments: PATIENT NOT FASTINGPERFORMED BY: [employer] [facility] [id number] Information: [id number] Result 1 RRF (Normal) Comments: Routine respiratory marilin Lower Respiratory Culture Final report (Normal) :10 Rapid Flu (04783 x 2) Comments: neg Influenza A Ag neg (Normal) :31 Vitamin D Hydroxy (64176) Comments: PATIENT WAS FASTINGPERFORMED BY: [employer] Nujefa0352 [facility] [id number] Vitamin D, 25-Hydroxy 34.0 ng/mL (Normal) Range: 30.0-100.0 Comments: Vitamin D deficiency has been defined by the [place] ofTr[facility] [place] and an Endocrine Society practice guideline as alevel of serum 25-OH vitamin D less than 20 ng/mL (1,2).The Endocrine Society went on to further define vitamin Dinsufficiency as a level between 21 and 29 ng/mL (2).1. IOM ([place] of Medicine). 2010. Dietary reference intakes for calcium and D. [place]: The National Academies Press.2. Eleni MF, Lorne MORTON, Dayron WALTON, et al. Evaluation, treatment, and prevention of vitamin D deficiency: an Endocrine Society clinical practice guideline. JCEM. 2010; 96(7):1911-30. :31 Amylase (11940) Comments: PATIENT WAS FASTINGPERFORMED BY: [facility] [id number] Amylase, Serum 32 U/L (Normal) Range: 31-124 :31 Lipase ([id number]) Comments: PATIENT WAS FASTINGPERFORMED BY: [facility] [id number] Lipase, Serum 47 U/L (Normal) Range: 0-59 :31 LIPID PANEL ([id number]) Comments: PATIENT WAS FASTINGPERFORMED BY: [facility] [id number] LDL/HDL Ratio 1.7 {ratio_units} (Normal) Range: 0.0-3.2 Comments: LDL/HDL Ratio Men Women 1/2 Avg.Risk 1.0 1.5 Av g.Risk 3.6 3.2 2X Avg.Risk 6.2 5.0 3X Avg.Risk 8.0 6.1 LDL Cholesterol Calc 83 mg/dL (Normal) Range: 0-99 VLDL Cholesterol Edgardo 22 mg/dL (Normal) Range: 5-40 HDL Cholesterol 50 mg/dL (Normal) Comments: According to ATP-III Guidelines, HDL-C >59 mg/dL is considered anegative risk factor for CHD. Triglycerides 112 mg/dL (Normal) Range: 0-149 Cholesterol, Total 155 mg/dL (Normal) Range: 100-199 :31 TSH ([id number]) Comments: PATIENT WAS FASTINGPERFORMED BY: [facility] [id number] TSH 1.140 {uIU/mL} (Normal) Range: 0.450-4.500 :31 METABOLIC PANEL, Comments: PATIENT WAS FASTINGPERFORMED BY: [facility] [id number] Information: [id number] COMPREHENSIVE (24270) ALT (SGPT) 20 [iU]/L (Normal) Range: 0-32 AST (SGOT) 23 [iU]/L (Normal) Range: 0-40 Alkaline Phosphatase, S 66 [iU]/L (Normal) Range: 39-117 Bilirubin, Total 0.2 mg/dL (Normal) Range: 0.0-1.2 A/G Ratio 1.8 (Normal) Range: 1.1-2.5 Globulin, Total 2.5 g/dL (Normal) Range: 1.5-4.5 Albumin, Serum 4.5 g/dL (Normal) Range: 3.6-4.8 Protein, Total, Serum 7.0 g/dL (Normal) Range: 6.0-8.5 Calcium, Serum 10.5 mg/dL (Abnormal) Range: 8.7-10.3 Carbon Dioxide, Total 22 mmol/L (Normal) Range: 18-29 Chloride, Serum 101 mmol/L (Normal) Range: 97-108 Potassium, Serum 4.4 mmol/L (Normal) Range: 3.5-5.2 Sodium, Serum 141 mmol/L (Normal) Range: 134-144 BUN/Creatinine Ratio 17 (Normal) Range: 11-26 eGFR If Africn Am 108 mL/min/1.73 (Normal) eGFR If NonAfricn Am 94 mL/min/1.73 (Normal) Creatinine, Serum 0.69 mg/dL (Normal) Range: 0.57-1.00 BUN 12 mg/dL (Normal) Range: 8-27 Glucose, Serum 75 mg/dL (Normal) Range: 65-99 :12 HgA1C , Office (10381) HgA1C , Office 6.4 % (Normal) Range: 4.6 - 7.1 :21 HgA1C , Office (37438) HgA1C , Office 6.8 % (Normal) Range: 4.6 - 7.1 :21 Blood Glucose , Office (90023) Blood Glucose , Office 122 (Normal) :33 CBC W/Diff, Automated Comments: Test performed at:[facility] [address] [place] [address] Absolute Lymph 1.21 {X10_3/ul} (Normal) Range: 0.83-4.51 Absolute Neut 3.9 {X10_3/uL} (Normal) Range: 2.0-7.7 IM GRAN % 0.200 % (Normal) Range: 0.0-0.9 Comments: IG% - Immature Granulocytes (promyelocytes, myelocytes andmetamyelocytes) > 1% indicates that a LEFT SHIFT is Present. BASO% 0.8 % (Normal) Range: 0-1 EO% 5.0 % (Normal) Range: 0-5 MONO% 8.9 % (Normal) Range: 0-10 LY% 20.3 % (Normal) Range: 19-41 NEUT% 64.8 % (Normal) Range: 47-70 MPV 11.2 fL (Normal) Range: 6.2-12.0 PLT 330 K/mm3 (Normal) Range: 150-450 RDW SD 41.9 fL (Normal) Range: 35.1-43.9 RDW CV 12.6 % (Normal) Range: 11.6-14.6 MCHC 33.2 {g/gl} (Normal) Range: 32-36 MCH 30.3 pg (Normal) Range: 27.0-32.0 MCV 91.1 fL (Normal) Range: 81-99 HCT 39.7 % (Normal) Range: 37-47 HGB 13.2 g/dL (Normal) Range: 12.0-15.0 RBC 4.36 {M/mm3} (Normal) Range: 4.2-5.4 WBC 6.0 K/mm3 (Normal) Range: 4.4-11.0 67-Nxc-992409:33 Comprehensive Metabolic Profil Comments: Test performed at:[facility] [address] [place] [address] GAP 8 (Normal) Range: 5-15 CO2 28.0 mmol/L (Normal) Range: 21.0-32.0 CL 103 mmol/L (Normal) Range: 98-107 K 4.0 mmol/L (Normal) Range: 3.5-5.1 NA 139 mmol/L (Normal) Range: 136-145 T BILI 0.30 mg/dL (Normal) Range: 0.20-1.00 ALT 27 U/L (Normal) Range: 12-78 ALK P 61 U/L (Normal) Range: 50-136 AST 21 U/L (Normal) Range: 15-37 CA 9.8 mg/dL (Normal) Range: 8.5-10.1 A/G 1.1 {RATIO} (Normal) Range: 0.9-2.4 GLOB 3.4 g/dL (Normal) Range: 2.3-3.5 ALB 3.6 g/dL (Normal) Range: 3.4-5.0 T PROT 7.0 g/dL (Normal) Range: 6.4-8.2 BUN/CRE 17.3 {RATIO} (Normal) Range: 10-20 EST GFR - AA 101 mL/min (Normal) EST GFR 83 mL/min (Normal) CREAT,SERUM 0.75 mg/dL (Normal) Range: 0.55-1.20 Comments: Please note revised CREATININE reference range vhbneficc11/22/2015. BUN 13 mg/dL (Normal) Range: 7-18 GLU 84 mg/dL (Normal) Range: 70-110 76-Cec-393899:33 Lipid Profile Comments: Test performed at:[facility] [address] [facility] [place] [address] ; non-emergent till apt VLDL 24 mg/dL (Normal) Range: 5-40 LDL 80 mg/dL (Normal) Range: 0-130 HDL 43 mg/dL (Normal) Comments: Reference Range HDL <40 mg/dL Low HDL Cholesterol HDL >or= 60 mg/dL High HDL Cholesterol TRIG 119 mg/dL (Normal) Comments: Serum Triglycerides Reference Interval Normal <150 mg/dL Borderline high 150 - 199 mg/dL High 200 - 499 mg/dL Very High > or = 500 mg/dL CHOL 147 mg/dL (Normal) Comments: <200 mg/dL Desirable 200-240 mg/dL Borderline >240 mg/dL High Risk 27-Ndg-387035:33 Microalb:Creat Ratio,Random UR Comments: Test performed at:[facility] [address]ivtlk264[address] [facility] [place] [address] MALB:CREAT Test not performed {mg/g_CRE} (Normal) MICROALBUMIN,UR < 5.0 mg/L (Normal) UR CREAT 179.00 mg/dL (Normal) 98-Ecv-728943:33 Thyroid Stim Hormone (TSH) Comments: Test performed at:[facility] [address]qsu[address]vf[address] [facility] [place] [address] TSH 0.84 {uIU/mL} (Normal) Range: 0.358-3.74 09-Kcx-439396:33 Vitamin D,25 Hydroxy Comments: Test performed at:[facility] [address] [place], [place] [address] Vitamin D 25-OH 23.5 ng/mL (Normal) Comments: Vitamin D 25(OH) Status Range Deficiency <20 ng/mL (50nmol/L) Insuffciency 20 - 30 ng/mL (50 - 75 nmol/L) Sufficiency 30 - 100 ng/mL (75 - 250 nmol/L) Toxicity >100 ng/mL (>250 nmol/L) 3-Mdq-912429:34 HgA1C , Office (30529) HgA1C , Office 7.0 % (Normal) Range: 4.6 - 7.1 4-Acv-377871:00 CBC W/Diff, Automated Comments: Test performed at:[facility] [address] [place] [address] Absolute Lymph 2.03 {X10_3/ul} (Normal) Range: 0.83-4.51 Absolute Neut 6.1 {X10_3/uL} (Normal) Range: 2.0-7.7 IM GRAN % 0.300 % (Normal) Range: 0.0-0.9 Comments: IG% - Immature Granulocytes (promyelocytes, myelocytes andmetamyelocytes) > 1% indicates that a LEFT SHIFT is Present. BASO% 0.2 % (Normal) Range: 0-1 EO% 1.3 % (Normal) Range: 0-5 MONO% 7.9 % (Normal) Range: 0-10 LY% 22.4 % (Normal) Range: 19-41 NEUT% 67.9 % (Normal) Range: 47-70 MPV 11.1 fL (Normal) Range: 6.2-12.0 PLT 420 K/mm3 (Normal) Range: 150-450 RDW SD 39.8 fL (Normal) Range: 35.1-43.9 RDW CV 12.3 % (Normal) Range: 11.6-14.6 MCHC 34.5 {g/gl} (Normal) Range: 32-36 MCH 30.9 pg (Normal) Range: 27.0-32.0 MCV 89.6 fL (Normal) Range: 81-99 HCT 44.1 % (Normal) Range: 37-47 HGB 15.2 g/dL (Abnormal) Range: 12.0-15.0 RBC 4.92 {M/mm3} (Normal) Range: 4.2-5.4 WBC 9.1 K/mm3 (Normal) Range: 4.4-11.0 0-Mkw-714593:00 CK-MB Quantitative and Index Comments: 'TROP' Serial specimen #1, #2, #3, or #4: 1'CKMB' Serial Specimen #1, #2 or #3? 1Test performed at:[facility] [address] [place] [address] CPKMB 1.7 ng/mL (Normal) Range: 0.0-5.0 Comments: CK-MB and RI Interpretation MB Relative Index Non-AMI <or= 5 NA Indeterminate > 5 <or= 4 AMI > 5 > 4 CPK TOTAL 137 U/L (Normal) Range: 26-192 8-Cvt-484854:00 Myoglobin, Serum Comments: Test performed at:[facility] [address] [facility] [place] [address] Myoglobin, Ser 149 ng/mL (Abnormal) Range: 25-58 Comments: Performed at: [facility] [address] [id number] Director: Jonathan Majano PhD, Phone: [phone] Troponin-I Comments: 'TROP' Serial specimen #1, #2, #3, or #4: 1'CKMB' Serial Specimen #1, #2 or #3? 1Test performed at:[facility] [address] [place] [address] TROPONIN-I < 0.02 ng/mL (Normal) Comments: TROPONIN-I EXPECTED VALUES <0.05 NEGATIVE 0.06 - 0.59 AT RISK OF PR > OR = 0.60 SUGGEST PR 3-Ele-646561:46 Rapid Flu (64324 x 2) Influenza A Ag n (Normal) 89-Qxu-186837:30 Culture, Wound Comments: Test performed at:[facility] [address] [place] [address] CUW See Note (Normal) Comments: Gram StainGram Stain Rare Red Blood Cells Rare Gram positive rods Rare Gram positive cocci Rare White Blood Cells Wound CultureORGANISM 1: Staphylococcus aureusAmount Growth 1+ Stap hylococcus aureus: REACTION Benzylpenicillin NF 0.25 R Cefoxitin *NF - Clindamycin $$ <=0 .25 R Inducable Clindamycin Resistan + Erythromycin $ >=8 R Gentamicin $ <=0.5 S Levofloxacin $ 0.25 S Linezolid $$$$ 2 S Moxifloxicin *NF <=0.25 S Oxacillin NF 0.5 S Tigecycline $$$$ <=0.12 S Rifampin $$ <=0.5 S Tetracycline NF <=1 S Trimethoprim/Sulfametho $ <=10 S Vancomycin $ 1 S(NF) indicates non-formulary drug at [facility]. Approval by Infectious Disease Specialist required before non-formulary dr gerard may be ordered and/or dispensed. * CLSI guidelines does not recommend testing of cephalosporins. This interpretation is deduced from Beta- lactam/penicillin results. 43-Eke-948279:20 WCGLU 81 mg/dL (Normal) Range: 70-110 90-Qgd-496499:20 WCLIPID VLDL 34 mg/dL (Normal) Range: 5-40 LDL 99 mg/dL (Normal) Range: 0-130 HDL 45 mg/dL (Normal) Comments: Reference RangeHDL <40 mg/dL Low HDL CholesterolHDL >or= 60 mg/dL High HDL Cholesterol TRIG 171 mg/dL (Normal) Range: 0-199 Comments: Serum Triglycerides Reference IntervalNormal <150 mg/dLBorderline high 150 - 199 mg/dLHigh 200 - 499 mg/ dLVery High > or = 500 mg/dL CHOL 178 mg/dL (Normal) Comments: <200 mg/dL Rpzltcimx500-612 mg/dL Borderline>240 mg/dL High Risk 7-Vuv-635501:50 MUM < 0.80 AU (Normal) Range: 0.00-0.79 Comments: Negative < 0.80Borderline 0.80 - 1.20Positive > 1.20Note: The presence of IgM specific antibody should beinterpreted in conjunction with the patient's clinicalhistory and exposure risk when an acute infection issuspected.Performed at: [address] [id number] Director: Rafita Cruz MD, Phone: [phone] at: [place] [id number] [place] [id number] Director: Jj Caballero MD, Phone: [phone] 6-Ypj-678976:50 RUBEOG > 300.0 AU/mL (Normal) Comments: Negative <25.0Equivocal 25.0 - 29.9Positive >29.9Presence of antibodies to Rubeola is presumptive evidenceof immunity except when acute infection is suspected. 8-Rsv-348755:50 RUBG > 500.0 {IU/mL} (Normal) Comments: Antibody results Interpretation of Immune Status< 5 IU/ml Presumed Non-immune5 - < 10 IU/ml Equivocal> or = 10 IU/ml Presumed Immune :26 MICROALBUMIN: CREATININE RATIO Comments: PATIENT WAS FASTINGPERFORMED BY: [address] [id number] ([id number]) AND (72200) Microalb/Creat Ratio 3.9 {mg/g_creat} (Normal) Range: 0.0-30.0 Creatinine, Urine 177.5 mg/dL (Normal) Range: 15.0-278.0 Microalbumin, Urine 7.0 ug/mL (Normal) Range: 0.0-17.0 :26 CBC WITH MANUAL DIFF Comments: PATIENT WAS FASTINGPERFORMED BY: [address] [id number] Information: [id number] (79709) Immature Grans (Abs) 0.0 {x10E3/uL} (Normal) Range: 0.0-0.1 Immature Granulocytes 0 % (Normal) Range: 0-2 Baso (Absolute) 0.1 {x10E3/uL} (Normal) Range: 0.0-0.2 Eos (Absolute) 0.4 {x10E3/uL} (Normal) Range: 0.0-0.4 Monocytes(Absolute) 0.5 {x10E3/uL} (Normal) Range: 0.1-0.9 Lymphs (Absolute) 1.6 {x10E3/uL} (Normal) Range: 0.7-3.1 Neutrophils (Absolute) 3.4 {x10E3/uL} (Normal) Range: 1.4-7.0 Basos 1 % (Normal) Range: 0-3 Eos 6 % (Abnormal) Range: 0-5 Monocytes 9 % (Normal) Range: 4-12 Lymphs 27 % (Normal) Range: 14-46 Neutrophils 57 % (Normal) Range: 40-74 Platelets 357 {x10E3/uL} (Normal) Range: 155-379 RDW 13.7 % (Normal) Range: 12.3-15.4 MCHC 33.1 g/dL (Normal) Range: 31.5-35.7 MCH 30.5 pg (Normal) Range: 26.6-33.0 MCV 92 fL (Normal) Range: 79-97 Hematocrit 39.6 % (Normal) Range: 34.0-46.6 Hemoglobin 13.1 g/dL (Normal) Range: 11.1-15.9 RBC 4.30 {x10E6/uL} (Normal) Range: 3.77-5.28 WBC 6.0 {x10E3/uL} (Normal) Range: 3.4-10.8 :26 METABOLIC PANEL, COMPREHENSIVE Comments: PATIENT WAS FASTINGPERFORMED BY: [facility] Begbws5707 [facility] [id number] (08361) ALT (SGPT) 22 [iU]/L (Normal) Range: 0-32 AST (SGOT) 24 [iU]/L (Normal) Range: 0-40 Alkaline Phosphatase, S 52 [iU]/L (Normal) Range: 39-117 Bilirubin, Total 0.3 mg/dL (Normal) Range: 0.0-1.2 A/G Ratio 1.8 (Normal) Range: 1.1-2.5 Globulin, Total 2.4 g/dL (Normal) Range: 1.5-4.5 Albumin, Serum 4.2 g/dL (Normal) Range: 3.6-4.8 Protein, Total, Serum 6.6 g/dL (Normal) Range: 6.0-8.5 Calcium, Serum 10.0 mg/dL (Normal) Range: 8.6-10.2 Carbon Dioxide, Total 25 mmol/L (Normal) Range: 19-28 Chloride, Serum 102 mmol/L (Normal) Range: 97-108 Potassium, Serum 4.8 mmol/L (Normal) Range: 3.5-5.2 Sodium, Serum 140 mmol/L (Normal) Range: 134-144 BUN/Creatinine Ratio 15 (Normal) Range: 11-26 eGFR If Africn Am 103 mL/min/1.73 (Normal) eGFR If NonAfricn Am 89 mL/min/1.73 (Normal) Creatinine, Serum 0.73 mg/dL (Normal) Range: 0.57-1.00 BUN 11 mg/dL (Normal) Range: 8-27 Glucose, Serum 105 mg/dL (Abnormal) Range: 65-99 :26 Vitamin D Hydroxy (21916) Comments: PATIENT WAS FASTINGPERFORMED BY: [id number] [facility] [id number] Vitamin D, 25-Hydroxy 32.9 ng/mL (Normal) Range: 30.0-100.0 Comments: Vitamin D deficiency has been defined by the [place] [facility] [place] and an Endocrine Society practice guideline as alevel of serum 25-OH vitamin D less than 20 ng/mL (1,2).The Endocrine Society went on to further define vitamin Dinsufficiency as a level between 21 and 29 ng/mL (2).1. IOM ([place]argent of Medicine). 2010. Dietary reference intakes for calcium and D. [place]: The National Academies Press.2. Eleni MF, Lorne NC, Dayron WALTON, et al. Evaluation, treatment, and prevention of vitamin D deficiency: an Endocrine Society clinical practice guideline. JCEM. 2010; 96(7):1911-30. :26 LIPID PANEL (46064) Comments: PATIENT WAS FASTINGPERFORMED BY: [facility] Fkngkv[address] [facility] [id number] LDL/HDL Ratio 1.6 {ratio_units} (Normal) Range: 0.0-3.2 LDL Cholesterol Calc 74 mg/dL (Normal) Range: 0-99 HDL Cholesterol 46 mg/dL (Normal) Comments: According to ATP-III Guidelines, HDL-C >59 mg/dL is considered anegative risk factor for CHD. VLDL Cholesterol Edgardo 22 mg/dL (Normal) Range: 5-40 Triglycerides 112 mg/dL (Normal) Range: 0-149 Cholesterol, Total 142 mg/dL (Normal) Range: 100-199 :26 TSH (30852) Comments: PATIENT WAS FASTINGPERFORMED BY: Riskclick70 [facility] [id number] TSH 1.560 {uIU/mL} (Normal) Range: 0.450-4.500 4-Phu-537686:02 HgA1C , Office (00333) HgA1C , Office 6.6 % (Normal) Range: 4.6 - 7.1 1-Cjv-428009:41 HgA1C , Office (00384) HgA1C , Office 6.4 % (Normal) Range: 4.6 - 7.1 02-Hyb-632881:30 Microscopic Examination Comments: PATIENT WAS FASTINGPERFORMED BY: [id number] [facility] [id number] Bacteria Few (Normal) Mucus Threads Present (Normal) Epithelial Cells (non renal) 0-10 {/hpf} (Normal) Range: 0 - 10 RBC 0-3 {/hpf} (Normal) Range: 0 - 3 WBC 0-5 {/hpf} (Normal) Range: 0 - 5 55-Agr-122486:30 LIPID PANEL (92495) Comments: PATIENT WAS FASTINGPERFORMED BY: Page2Images6370 [facility] [id number] LDL/HDL Ratio 2.3 {ratio_units} (Normal) Range: 0.0-3.2 LDL Cholesterol Calc 103 mg/dL (Abnormal) Range: 0-99 VLDL Cholesterol Edgardo 30 mg/dL (Normal) Range: 5-40 HDL Cholesterol 45 mg/dL (Normal) Comments: According to ATP-III Guidelines, HDL-C >59 mg/dL is considered anegative risk factor for CHD. Cholesterol, Total 178 mg/dL (Normal) Range: 100-199 Triglycerides 148 mg/dL (Normal) Range: 0-149 70-Fpt-061106:30 Vitamin D Hydroxy (92283) Comments: PATIENT WAS FASTINGPERFORMED BY: [employer] Cnndyg8971 [facility] [id number] Vitamin D, 25-Hydroxy 35.6 ng/mL (Normal) Range: 30.0-100.0 Comments: Vitamin D deficiency has been defined by the [place]ent ofMedicine and an Endocrine Society practice guideline as alevel of serum 25-OH vitamin D less than 20 ng/mL (1,2).The Endocrine Society went on to further define vitamin Dinsufficiency as a level between 21 and 29 ng/mL (2).1. IOM ([place]argent of Medicine). 2010. Dietary reference intakes for calcium and D. [place]: The National Academies Press.2. Eleni MF, Lorne MORTON, Dayron WALTON, et al. Evaluation, treatment, and prevention of vitamin D deficiency: an Endocrine Society clinical practice guideline. JCEM. 2010; 96(7):1911-30. 41-Byk-545736:30 URINALYSIS, W/ MICRO (84784) Comments: PATIENT WAS FASTINGPERFORMED BY: Socialscope6370 [facility] [id number] Microscopic Examination See below: (Normal) Nitrite, Urine Negative (Normal) Bilirubin Negative (Normal) Urobilinogen,Semi-Qn 0.2 mg/dL (Normal) Range: 0.0-1.9 Occult Blood Negative (Normal) Ketones Negative (Normal) Glucose Negative (Normal) Protein Negative (Normal) WBC Esterase 1+ (Abnormal) Appearance Clear (Normal) Urine-Color Yellow (Normal) pH 5.5 (Normal) Range: 5.0-7.5 Specific [place] 1.017 (Normal) Range: 1.005-1.030 97-Pmz-328654:30 CBC WITH MANUAL DIFF Comments: PATIENT WAS FASTINGPERFORMED BY: Evision SystemsVirtua VoorheesNvnesz8335 [facility] [id number] Information: [id number] (57919) Immature Grans (Abs) 0.0 {x10E3/uL} (Normal) Range: 0.0-0.1 Immature Granulocytes 0 % (Normal) Range: 0-2 Baso (Absolute) 0.1 {x10E3/uL} (Normal) Range: 0.0-0.2 Eos (Absolute) 0.3 {x10E3/uL} (Normal) Range: 0.0-0.4 Monocytes(Absolute) 0.5 {x10E3/uL} (Normal) Range: 0.1-0.9 Lymphs (Absolute) 1.7 {x10E3/uL} (Normal) Range: 0.7-3.1 Neutrophils (Absolute) 3.6 {x10E3/uL} (Normal) Range: 1.4-7.0 Basos 2 % (Normal) Range: 0-3 Eos 5 % (Normal) Range: 0-5 Monocytes 8 % (Normal) Range: 4-12 Lymphs 27 % (Normal) Range: 14-46 Neutrophils 58 % (Normal) Range: 40-74 Platelets 382 {x10E3/uL} (Abnormal) Range: 155-379 RDW 13.3 % (Normal) Range: 12.3-15.4 MCHC 33.3 g/dL (Normal) Range: 31.5-35.7 MCH 30.4 pg (Normal) Range: 26.6-33.0 MCV 91 fL (Normal) Range: 79-97 Hematocrit 41.4 % (Normal) Range: 34.0-46.6 Hemoglobin 13.8 g/dL (Normal) Range: 11.1-15.9 RBC 4.54 {x10E6/uL} (Normal) Range: 3.77-5.28 WBC 6.2 {x10E3/uL} (Normal) Range: 3.4-10.8 60-Glu-188131:30 METABOLIC PANEL, COMPREHENSIVE Comments: PATIENT WAS FASTINGPERFORMED BY: LabCoVirtua VoorheesYndnxv2790 [facility] [id number] (44571) ALT (SGPT) 23 [iU]/L (Normal) Range: 0-32 Alkaline Phosphatase, S 67 [iU]/L (Normal) Range: 39-117 AST (SGOT) 23 [iU]/L (Normal) Range: 0-40 Bilirubin, Total 0.3 mg/dL (Normal) Range: 0.0-1.2 A/G Ratio 1.5 (Normal) Range: 1.1-2.5 Globulin, Total 2.9 g/dL (Normal) Range: 1.5-4.5 Albumin, Serum 4.3 g/dL (Normal) Range: 3.6-4.8 Protein, Total, Serum 7.2 g/dL (Normal) Range: 6.0-8.5 Calcium, Serum 10.7 mg/dL (Abnormal) Range: 8.6-10.2 Carbon Dioxide, Total 21 mmol/L (Normal) Range: 19-28 Chloride, Serum 100 mmol/L (Normal) Range: 97-108 Potassium, Serum 5.0 mmol/L (Normal) Range: 3.5-5.2 Sodium, Serum 139 mmol/L (Normal) Range: 134-144 BUN/Creatinine Ratio 19 (Normal) Range: 11-26 eGFR If Africn Am 91 mL/min/1.73 (Normal) eGFR If NonAfricn Am 79 mL/min/1.73 (Normal) Creatinine, Serum 0.81 mg/dL (Normal) Range: 0.57-1.00 BUN 15 mg/dL (Normal) Range: 8-27 Glucose, Serum 114 mg/dL (Abnormal) Range: 65-99 :35 HgA1C , Office (60684) HgA1C , Office 6.6 % (Normal) Range: 4.6 - 7.1 :41 Thin prep Pap (29102) Comments: Source.............VaginalNo. of containers..01 CYTYC Thin Prep VialPATIENT NOT FASTINGPERFORMED BY: Lab[address] [id number] Information: [id number] Pathologist provided ICD9: SPRCS (Normal) Comments: 627.3The Pap smear is a screening test designed to aid in the detection ofpremalignant and malignant conditions of the uterine cervix. It is not adiagnostic procedure and should not be used as the sole means of detectingcervical cancer. Both false-positive and false-negative reports do occur. .This liquid based ThinPrep(R) pap t est was screened with theuse of an image guided system.The HPV DNA reflex criteria were not met with this specimen resulttherefore, no HPV testing was performed. . See Note . (Normal) DIAGNOSIS: SPRCS (Normal) Comments: NEGATIVE FOR INTRAEPITHELIAL LESION AND MALIGNANCY.CELLULAR CHANGES ASSOCIATED WITH ATROPHY AND INFLAMMATION ARE PRESENT.Satisfactory for evaluation. No endocervical cells are present. This isconsiste nt with a history of hysterectomy.V72.31 ; Routine gynecological examinationGris Moreau Field Crop Farm Worker (ASCP) :36 VITAMIN B-12 (CYANOCOBALAMIN) Comments: PATIENT WAS FASTINGPERFORMED BY: [facility] TechnologiesUNC [facility] [id number] (28861) Vitamin B12 628 pg/mL (Normal) Range: 211-946 :36 LIPID PANEL (95475) Comments: PATIENT WAS FASTINGPERFORMED BY: Page2Images6370 [facility] [id number] LDL/HDL Ratio 2.2 {ratio_units} (Normal) Range: 0.0-3.2 LDL Cholesterol Calc 87 mg/dL (Normal) Range: 0-99 VLDL Cholesterol Edgardo 27 mg/dL (Normal) Range: 5-40 HDL Cholesterol 39 mg/dL (Abnormal) Comments: According to ATP-III Guidelines, HDL-C >59 mg/dL is considered anegative risk factor for CHD. Cholesterol, Total 153 mg/dL (Normal) Range: 100-199 Triglycerides 137 mg/dL (Normal) Range: 0-149 :36 Vitamin D Hydroxy (19313) Comments: PATIENT WAS FASTINGPERFORMED BY: [facility]CodeSquarerp Tqaebo9935 [facility] [id number] Vitamin D, 25-Hydroxy 31.1 ng/mL (Normal) Range: 30.0-100.0 Comments: Vitamin D deficiency has been defined by the [place]ent ofMedicine and an Endocrine Society practice guideline as alevel of serum 25-OH vitamin D less than 20 ng/mL (1,2).The Endocrine Society went on to further define vitamin Dinsufficiency as a level between 21 and 29 ng/mL (2).1. IOM (Sargent of Medicine). 2010. Dietary reference intakes for calcium and D. [place]: The National Academies Press.2. Eleni MF, Lorne MORTON, Dayron WALTON, et al. Evaluation, treatment, and prevention of vitamin D deficiency: an Endocrine Society clinical practice guideline. JCEM. 2010; 96(7):7331-30. :36 TSH (57983) Comments: PATIENT WAS FASTINGPERFORMED BY: [facility] Dbglvg4656 [facility] [facility] [place] [id number] TSH 1.510 {uIU/mL} (Normal) Range: 0.450-4.500 :36 MICROALBUMIN: CREATININE RATIO Comments: PATIENT WAS FASTINGPERFORMED BY: [facility] Vhcklx0431 [facility] [id number] (81256) AND (63083) Creatinine, Urine 212.6 mg/dL (Normal) Range: 15.0-278.0 Microalb/Creat Ratio 2.1 {mg/g_creat} (Normal) Range: 0.0-30.0 Microalbumin, Urine 4.5 ug/mL (Normal) Range: 0.0-17.0 :36 METABOLIC PANEL, Comments: PATIENT WAS FASTINGPERFORMED BY: [facility] Wcwciw4588 [facility] [id number] Information: [id number] COMPREHENSIVE (39487) ALT (SGPT) 23 [iU]/L (Normal) Range: 0-32 AST (SGOT) 25 [iU]/L (Normal) Range: 0-40 Alkaline Phosphatase, S 58 [iU]/L (Normal) Range: 42-107 Bilirubin, Total 0.3 mg/dL (Normal) Range: 0.0-1.2 A/G Ratio 1.6 (Normal) Range: 1.1-2.5 Globulin, Total 2.6 g/dL (Normal) Range: 1.5-4.5 Albumin, Serum 4.1 g/dL (Normal) Range: 3.6-4.8 Protein, Total, Serum 6.7 g/dL (Normal) Range: 6.0-8.5 Calcium, Serum 9.7 mg/dL (Normal) Range: 8.6-10.2 Carbon Dioxide, Total 20 mmol/L (Normal) Range: 19-28 Chloride, Serum 104 mmol/L (Normal) Range: 97-108 Potassium, Serum 4.5 mmol/L (Normal) Range: 3.5-5.2 Sodium, Serum 140 mmol/L (Normal) Range: 134-144 BUN/Creatinine Ratio 15 (Normal) Range: 11-26 eGFR If Africn Am 102 mL/min/1.73 (Normal) eGFR If NonAfricn Am 88 mL/min/1.73 (Normal) Creatinine, Serum 0.74 mg/dL (Normal) Range: 0.57-1.00 BUN 11 mg/dL (Normal) Range: 8-27 Glucose, Serum 160 mg/dL (Abnormal) Range: 65-99 [id number] BILAT SCRN DIGITAL & CAD Radiology Report See Note (Normal) Comments: MAMMOGRAPHY - BILATERAL SCREENING REASON FOR EXAM: Female, 61 years old. Routine annual screeningexamination. PERTINENT HISTORY: Non-contributory. TECHNIQUE: Digital examination. Med iolateral ob lique (MLO) andcraniocaudad (CC) views of both breasts were obtained. CAD: CAD wasperformed on this study. COMPARISON: Comparison is made with prior studies dated April 07nd October 16, 2008. FI NDINGS:The breast composition is composed of scattered fibroglandular densities. There are no dominant masses or suspicious calcifications. No other significant abnormalities are identified. There has been nosignificant change since the prior study. IMPRESSION:Stable bilateral screening mammogram. Yearly follow-up recommended. (A) ASSESSMENT CATEGORY:BIRADS Category 2: Benign finding(s). A lette r regarding these resultswill be sent to the patient by the facility within 30 days. Approximately 10% of breast cancers are not detected by mammography. Anormal mammogram should not delay biopsy of a clinically suspiciousabnormality. Signed:Leobardo Mckenzie M.D.April 12, 2012 at 10:58:16 AM [id number] Signed GP/GP If you are the referring physician and would like to consult w [facility] theradiologist who provided this interpretation, please contact Sudha Pritchett at [phone]. If this radiologist is unavailable, youwill be directed to another radiologist to assist. If you are a patient with a question regarding this report, pleasecontactyour referring physician directly. Professional Interpretation Provided By: Adilene, Phone , These documents contain legally protected and confidential healthinformation intended only for the use of the individual or entity namedabove. If you are not the intended recipient, you are hereby notifiedth atany disclosure, copying, distribution, or other use of these documents isstrictly prohibited. If you have received this information in error,pleasenotify the sender immediately and arrange for the ret urn or destructionofthese documents. Dictated on 04/12/12 0934 by Jonah HUTCHINSON,Steffenranscribed on 04/12/121101 by ITS IMPORTSign by Leoabrdo Mckenzie MD on 04/12/121102 Sign by: Leobardo Mckenzie MD 05-Yyd-85868:34 DEXA BONE DENSITY STUDY (HP) Radiology Report See Note (Normal) Comments: PROCEDURE: DUAL ENERGY X-RAY ABSORPTIOMETRY / DXA REASON FOR EXAM: Female, 61 years old. Osteopenia. TECHNIQUE: Bone Mineral Density (BMD) measurements of lumbar spine andbilateral hips were obtai deepak. COMPARISON: None. FINDINGS: Lumbar Spine (L1-L4): g/cm2 (1.157) / T-score (-0.1) / Z-score (1.0) Left Femur Total: g/cm2 (1.161) / T-score (1.2) / Z-score (2.1)Left Femoral Neck: g/cm2 (0.981) / T-score (-0.4) / Z-score (0.8)Right Femur Total: g/cm2 (1.202) / T-score (1.5) / Z-score (2.4)Right Femoral Neck: g/cm2 (1.024) / T- score (-0.1) / Z-score (1.1) IMPRESSION:The p atient is considered normal, as outlined below according to WorldHealth Organization (WHO) criteria. Fracture risk is low. Reference Information:The T-score is the number of standard deviations above o r below thestandard which is normal for young adults at their peak bone mineraldensity. The World Health Organization (WHO) interprets the T-scores asfollows: Above - 1 Normal bone densityBetwe en -1 and -2.5 OsteopeniaEqual to / or below -2.5 Osteoporosis As a practical clinical guideline, osteopenia may be graded as follows:Mild -1 through - 1.5Moderate -1.6 through -2.0Severe -2.1 thr ough -2.4 The Z-score is the number of standard deviations above or below age-matchedcontrols. A Z-score of less than -1.5 would be considered abnormal. References:1. NIH Osteoporosis and Related Bone Diseases http://www.osteo.org2. International Society for Clinical Densitometry http://www.iscd.org3. National Osteoporosis Foundation http://www.nof.org Signed:Leobardo Mckenzie M.D.April 12 2 at 12:31:08 PM [phone] Signed GP/GP If you are the referring physician and would like to consult with theradiologist who provided this interpretation, please contact Rashard thompson M.D. at [phone]. If this radiologist is unavailable, youwill be directed to another radiologist to assist. If you are a patient with a question regarding this report, pleasecontactyour refer ring physician directly. Professional Interpretation Provided By: [employer], Phone , These documents contain legally protected and confidential healthinformation intended only for the use of the individual or entity namedabove. If you are not the intended recipient, you are hereby notifiedthatany disclosure, copying, distribution, or other use of these documents isstric tly prohibited. If you have received this information in error,pleasenotify the sender immediately and arrange for the return or destructionofthese documents. Dictated on 04/12/12 1021 by Martin Kapoorscribed on 04/12/12 1234 by ITS IMPORTSign by Leobardo Mckenzie MD on 04/12/12 1235 Sign by: Jonah HUTCHINSONLeobardo 5-Uor-009508:25 HPV automatic Comments: Source.............Cervical;EndocervicalNo. of containers..01 CYTYC Thin Prep VialPATIENT NOT FASTINGPERFORMED BY: WB [facility] [address] [place] [id number] BY: Madi Hodge ([id number]) [facility] Jbplbaslka532 [facility] [place] [id number] Information: [id number] HPV, high-risk Negative Comments: This high-risk HPV test detects thirteen high- risk types(16/18/31/33/35/39/45/51/52/56/58/59/68) without differentiation. . (Normal) Note: PAPSMR (Normal) Comments: The Pap smear is a screening test designed to aid in the detection ofpremalignant and malignant conditions of the uterine cervix. It is not adiagnostic procedure and should not be used as the sole mean s of detectingcervical cancer. Both false-positive and false-negative reports do occur. .This liquid based ThinPrep(R) pap test w as screened with theuse of an image guided system. See Note . (Normal) DIAGNOSIS: SPRCS (Normal) Comments: NEGATIVE FOR INTRAEPITHELIAL LESION AND MALIGNANCY.CELLULAR CHANGES ASSOCIATED WITH ATROPHY ARE PRESENT.Satisfactory for evaluation. No endocervical cells are present. This isconsistent with a history of hysterectomy.V72.31 ; Routine gynecological examinationJenatalio Steven, [employer] Worker (ASCP) 52-Gbp-30005:37 Hemoglobin Glyclated (HGB A1C) Comments: PATIENT WAS FASTINGPERFORMED BY: [facility] Zsossw8777 [facility] [id number] ([id number]) Hemoglobin A1c 7.1 % (Abnormal) Range: 4.8-5.6 Comments: . Increased risk for diabetes: 5.7 - 6.4 Diabetes: >6.4 Glycemic control for adults with diabetes: <7.0 :37 TSH (19231) Comments: PATIENT WAS FASTINGPERFORMED BY: LabCoVirtua VoorheesMumjpq8623 [facility] [id number] TSH 1.790 {uIU/mL} (Normal) Range: 0.450-4.500 67-Ppk-15380:37 CBC WITH MANUAL DIFF Comments: PATIENT WAS FASTINGPERFORMED BY: LabCoVirtua VoorheesXcslrk1673 [facility] [id number] Information: [id number] (18047) Immature Grans (Abs) 0.0 {x10E3/uL} (Normal) Range: 0.0-0.1 Immature Granulocytes 0 % (Normal) Range: 0-2 Baso (Absolute) 0.1 {x10E3/uL} (Normal) Range: 0.0-0.2 Eos (Absolute) 0.3 {x10E3/uL} (Normal) Range: 0.0-0.4 Monocytes(Absolute) 0.6 {x10E3/uL} (Normal) Range: 0.1-1.0 Lymphs (Absolute) 1.5 {x10E3/uL} (Normal) Range: 0.7-4.5 Neutrophils (Absolute) 3.3 {x10E3/uL} (Normal) Range: 1.8-7.8 Basos 1 % (Normal) Range: 0-3 Eos 5 % (Normal) Range: 0-7 Monocytes 10 % (Normal) Range: 4-13 Lymphs 26 % (Normal) Range: 14-46 Neutrophils 58 % (Normal) Range: 40-74 Platelets 349 {x10E3/uL} (Normal) Range: 140-415 RDW 13.6 % (Normal) Range: 12.3-15.4 MCHC 34.4 g/dL (Normal) Range: 31.5-35.7 MCH 30.8 pg (Normal) Range: 26.6-33.0 MCV 90 fL (Normal) Range: 79-97 Hematocrit 38.4 % (Normal) Range: 34.0-46.6 Hemoglobin 13.2 g/dL (Normal) Range: 11.1-15.9 RBC 4.28 {x10E6/uL} (Normal) Range: 3.77-5.28 WBC 5.8 {x10E3/uL} (Normal) Range: 4.0-10.5 :37 MICROALBUMIN: CREATININE RATIO Comments: PATIENT WAS FASTINGPERFORMED BY: Riskclick70 [facility] [id number] ([id number]) AND (41681) Microalb/Creat Ratio 0.8 {mg/g_creat} (Normal) Range: 0.0-30.0 Microalbumin, Urine 1.4 ug/mL (Normal) Range: 0.0-17.0 Creatinine, Urine 183.1 mg/dL (Normal) Range: 15.0-278.0 :37 LIPID PANEL (94980) Comments: PATIENT WAS FASTINGPERFORMED BY: [facility]click70 [facility] [id number] LDL/HDL Ratio 1.4 {ratio_units} (Normal) Range: 0.0-3.2 LDL Cholesterol Calc 60 mg/dL (Normal) Range: 0-99 Comments: Please note reference interval change VLDL Cholesterol Edgardo 27 mg/dL (Normal) Range: 5-40 HDL Cholesterol 44 mg/dL (Normal) Comments: According to ATP-III Guidelines, HDL-C >59 mg/dL is considered anegative risk factor for CHD. Triglycerides 134 mg/dL (Normal) Range: 0-149 Comments: Please note reference interval change Cholesterol, Total 131 mg/dL (Normal) Range: 100-199 Comments: Please note reference interval change :37 METABOLIC PANEL, COMPREHENSIVE Comments: PATIENT WAS FASTINGPERFORMED BY: Page2Images6370 [facility] [id number] ([id number]) ALT (SGPT) 26 [iU]/L (Normal) Range: 0-40 AST (SGOT) 26 [iU]/L (Normal) Range: 0-40 Alkaline Phosphatase, S 61 [iU]/L (Normal) Range: 25-150 Bilirubin, Total 0.3 mg/dL (Normal) Range: 0.0-1.2 A/G Ratio 1.7 (Normal) Range: 1.1-2.5 Globulin, Total 2.5 g/dL (Normal) Range: 1.5-4.5 Albumin, Serum 4.2 g/dL (Normal) Range: 3.5-5.5 Protein, Total, Serum 6.7 g/dL (Normal) Range: 6.0-8.5 Calcium, Serum 10.3 mg/dL (Abnormal) Range: 8.7-10.2 Carbon Dioxide, Total 24 mmol/L (Normal) Range: 20-32 Chloride, Serum 101 mmol/L (Normal) Range: 97-108 Potassium, Serum 4.7 mmol/L (Normal) Range: 3.5-5.2 Sodium, Serum 139 mmol/L (Normal) Range: 134-144 BUN/Creatinine Ratio 18 (Normal) Range: 9-23 eGFR If Africn Am 95 mL/min/1.73 (Normal) eGFR If NonAfricn Am 82 mL/min/1.73 (Normal) Creatinine, Serum 0.79 mg/dL (Normal) Range: 0.57-1.00 BUN 14 mg/dL (Normal) Range: 6-24 Glucose, Serum 145 mg/dL (Abnormal) Range: 65-99 :37 Vitamin D Hydroxy (31136) Comments: PATIENT WAS FASTINGPERFORMED BY: Riskclick70 [place] [id number] Vitamin D, 25-Hydroxy 42.1 ng/mL (Normal) Range: 30.0-100.0 Comments: Vitamin D deficiency has been defined by the [place] ofMedicine and an Endocrine Society practice guideline as alevel of serum 25-OH vitamin D less than 20 ng/mL (1,2).The Endocrine Society went on to further define vitamin Dinsufficiency as a level between 21 and 29 ng/mL (2).1. IOM ([place]ent of Medicine). 2010. Dietary reference intakes for calcium and D. [place]: The National Academies Press.2. Eleni MF, Lorne NC, Dayron WALTON, et al. Evaluation, treatment, and prevention of vitamin D deficiency: an Endocrine Society clinical practice guideline. JCEM. 2010; 96(7):1911-30. :37 VITAMIN B-12 (CYANOCOBALAMIN) Comments: PATIENT WAS FASTINGPERFORMED BY: Riskclick70 [place] GmbH[place] [id number] (31956) Vitamin B12 1841 pg/mL (Abnormal) Range: 211-946 01-Lws-975047:56 CHEST WITH CONTRAST Radiology Report See Note (Normal) Comments: PROCEDURE: CT CHEST WITH CONTRAST REASON FOR EXAM: Female, 61 years old. History of sarcoidosis. RADIATION DOSAGE (If Supplied By Facility): CTDIvol = ( 31.31 ) mGy, DLP=( 1820.30 ) mGy cm TECHNIQUE : High resolution transaxial imaging was performed followingintravenous administration of 100ML ml of Isovue 300 contrast material. COMPARISON: September 21, 2008. FINDINGS: There is minimal fibrotic ch evaristo in the upper lung maharaj.. There is nodemonstrated pleural abnormality. Normal heart and pericardium. There is mild adenopathy noted in the mediastinum.. There is minimaladenopathy in both hilar regions.. Normal enhancement of the pulmonaryarteries. Normal enhanced thoracic aorta and visualized great vessels. Normal osseous structures. There is limited visualization of the liver, spleen, panc reas, adrenalglands, and abdominal aorta without a demonstrated abnormality. IMPRESSION:There is mild mediastinal adenopathy and slight hilar adenopathy andminimal fibrosis.. Signed:Marva HunterFebruary 11, 2012 at 3:53:06 PM [phone] Signed MV/MV If you are the referring physician and would like to consult with theradiologist who provided this interpretation, please co ntact Jackie No M.D. at . If this radiologist is unavailable, youwillbe directed to another radiologist to assist. If you are a patient with a question regarding this report, pleas econtactyour referring physician directly. Professional Interpretation Provided By: [employer], Phone , These documents contain legally protected and confidential healthin formation intended only for the use of the individual or entity namedabove. If you are not the intended recipient, you are hereby notifiedthatany disclosure, copying, distribution, or other use of these documents isstrictly prohibited. If you have received this information in error,pleasenotify the sender immediately and arrange for the return or destructionofthese documents. Dictated on 02/11/12 1 404 by RIGO HUTCHINSON,Chaitanyaanscribed on 02/11/121610 by ITS IMPORTSign by RIGO HUTCHINSON,JACKIE on 02/11/121611 Sign by: RIGO HUTCHINSONENZONENA 81-Kub-652387:22 CRE GFRAA 95 mL/min (Normal) GFR 78 mL/min (Normal) CREAT 0.8 mg/dL (Normal) Range: 0.6-1.0 :42 MICROALBUMIN: CREATININE RATIO Comments: PATIENT WAS FASTINGPERFORMED BY: [employer] Pkdyxw4322 [address] [facility] [id number] ([id number]) AND (24514) Creatinine, Urine 87.6 mg/dL (Normal) Range: 15.0-278.0 Microalb/Creat Ratio 1.1 {mg/g_creat} (Normal) Range: 0.0-30.0 Microalbumin, Urine 1.0 ug/mL (Normal) Range: 0.0-17.0 :42 VITAMIN B-12 (CYANOCOBALAMIN) Comments: PATIENT WAS FASTINGPERFORMED BY: Socialscope6370 [facility] [id number] ([id number]) Vitamin B12 1740 pg/mL (Abnormal) Range: 211-946 :42 CBC WITH MANUAL DIFF Comments: PATIENT WAS FASTINGPERFORMED BY: [employer] Obwnzh7226 [facility] [id number] Information: [id number] (38696) Immature Grans (Abs) 0.0 {x10E3/uL} (Normal) Range: 0.0-0.1 Immature Granulocytes 0 % (Normal) Range: 0-2 Baso (Absolute) 0.1 {x10E3/uL} (Normal) Range: 0.0-0.2 Eos (Absolute) 0.3 {x10E3/uL} (Normal) Range: 0.0-0.4 Monocytes(Absolute) 0.5 {x10E3/uL} (Normal) Range: 0.1-1.0 Lymphs (Absolute) 1.3 {x10E3/uL} (Normal) Range: 0.7-4.5 Neutrophils (Absolute) 3.2 {x10E3/uL} (Normal) Range: 1.8-7.8 Basos 2 % (Normal) Range: 0-3 Eos 6 % (Normal) Range: 0-7 Monocytes 10 % (Normal) Range: 4-13 Lymphs 24 % (Normal) Range: 14-46 Neutrophils 58 % (Normal) Range: 40-74 Platelets 383 {x10E3/uL} (Normal) Range: 140-415 RDW 13.1 % (Normal) Range: 12.3-15.4 MCHC 33.7 g/dL (Normal) Range: 31.5-35.7 MCH 30.2 pg (Normal) Range: 26.6-33.0 MCV 90 fL (Normal) Range: 79-97 Hematocrit 40.7 % (Normal) Range: 34.0-46.6 Hemoglobin 13.7 g/dL (Normal) Range: 11.1-15.9 RBC 4.54 {x10E6/uL} (Normal) Range: 3.77-5.28 WBC 5.5 {x10E3/uL} (Normal) Range: 4.0-10.5 53-Ecj-98166:42 Vitamin D Hydroxy (08382) Comments: PATIENT WAS FASTINGPERFORMED BY: [facility]6370 [facility] [id number] Vitamin D, 25-Hydroxy 32.2 ng/mL (Normal) Range: 30.0-100.0 Comments: Vitamin D deficiency has been defined by the [place]ent ofMedicine and an Endocrine Society practice guideline as alevel of serum 25-OH vitamin D less than 20 ng/mL (1,2).The Endocrine Society went on to further define vitamin Dinsufficiency as a level between 21 and 29 ng/mL (2).1. IOM ([place]ent of Medicine). 2010. Dietary reference intakes for calcium and D. [place]: The National Academies Press.2. Eleni MF, Lorne NC, Dayron WALTON, et al. Evaluation, treatment, and prevention of vitamin D deficiency: an Endocrine Society clinical practice guideline. JCEM. 2010; 96(7):1911-30. :42 LIPID PANEL (18567) Comments: PATIENT WAS FASTINGPERFORMED BY: Evision SystemsVirtua VoorheesOahheo4433 [facility] [id number] LDL/HDL Ratio 2.2 {ratio_units} (Normal) Range: 0.0-3.2 LDL Cholesterol Calc 92 mg/dL (Normal) Range: 0-99 VLDL Cholesterol Edgardo 31 mg/dL (Normal) Range: 5-40 HDL Cholesterol 41 mg/dL (Normal) Comments: According to ATP-III Guidelines, HDL-C >59 mg/dL is considered anegative risk factor for CHD. Triglycerides 155 mg/dL (Abnormal) Range: 0-149 Cholesterol, Total 164 mg/dL (Normal) Range: 100-199 :42 METABOLIC PANEL, COMPREHENSIVE Comments: PATIENT WAS FASTINGPERFORMED BY: E[facility] SystemsVirtua VoorheesOnwvgk9478 [facility] [id number] ([id number]) ALT (SGPT) 20 [iU]/L (Normal) Range: 0-32 AST (SGOT) 19 [iU]/L (Normal) Range: 0-40 Alkaline Phosphatase, S 67 [iU]/L (Normal) Range: 25-150 Bilirubin, Total 0.3 mg/dL (Normal) Range: 0.0-1.2 A/G Ratio 1.6 (Normal) Range: 1.1-2.5 Globulin, Total 2.7 g/dL (Normal) Range: 1.5-4.5 Albumin, Serum 4.3 g/dL (Normal) Range: 3.5-5.5 Protein, Total, Serum 7.0 g/dL (Normal) Range: 6.0-8.5 Calcium, Serum 10.1 mg/dL (Normal) Range: 8.7-10.2 Carbon Dioxide, Total 21 mmol/L (Normal) Range: 20-32 Chloride, Serum 101 mmol/L (Normal) Range: 97-108 Potassium, Serum 4.4 mmol/L (Normal) Range: 3.5-5.2 Sodium, Serum 136 mmol/L (Normal) Range: 134-144 BUN/Creatinine Ratio 23 (Normal) Range: 9-23 eGFR If Africn Am 110 mL/min/1.73 (Normal) eGFR If NonAfricn Am 95 mL/min/1.73 (Normal) Creatinine, Serum 0.70 mg/dL (Normal) Range: 0.57-1.00 BUN 16 mg/dL (Normal) Range: 6-24 Glucose, Serum 148 mg/dL (Abnormal) Range: 65-99 65-Krl-84003:42 TSH (34019) Comments: PATIENT WAS FASTINGPERFORMED BY: [employer] [facility]6370 [facility] [id number] TSH 2.140 {uIU/mL} (Normal) Range: 0.450-4.500 4-Hrf-890408:41 Urinalysis, Office (07240) UA - BILIRUBIN Negative (Normal) UA - BLOOD Negative (Normal) UA - GLUCOSE Negative (Normal) UA - KETONES Negative mg/dL (Normal) UA - LEUKOCYTE ESTERASE Negative (Normal) UA - NITRITE Negative (Normal) UA - PH 8.5 (Normal) UA - PROTEIN 30 mg/dL (Normal) UA - SPECIFIC GRAVITY 1.020 (Normal) URINE UROBILINGN SUNNY TIMED Normal mg/dL (Normal) 06-Mwe-124269:08 CULTURE, SPUTUM (54379) Comments: PATIENT NOT FASTINGPERFORMED BY: [employer] [facility]60 [employer]70 [facility] [id number] Information: SRC:SPT ADD [id number] Result 1 RRF (Normal) Comments: Routine respiratory marilin Lower Respiratory Culture Final report (Normal) 06-Jul-20119:24 CBCD,SMEAR DIFF RED CELL MORPH SeeNote {NORMAL} (Normal) Comments: Result: NORM C+C PLT EST SeeNote (Normal) Comments: Result: ADEQUATE EOS 6 % (Abnormal) Range: 0-5 MONOCYTE 4 % (Normal) Range: 0-10 LYMPH 25 % (Normal) Range: 19-41 SEGS 65 % (Normal) Range: 47-70 CELLS COUNTED 100 (Normal) ABSOLUTE NEUT 3.8 3/uL (Normal) Range: 2.0-7.7 PLT 308 K/mm3 (Normal) Range: 150-450 RDW 12.8 % (Normal) Range: 11.6-14.6 MCHC 34.4 g/dL (Normal) Range: 32-36 MCH 31.3 pg (Normal) Range: 27.0-32.0 MCV 90.9 fL (Normal) Range: 81-99 HCT 37.5 % (Normal) Range: 37-47 HGB 12.9 g/dL (Normal) Range: 12.0-16.0 RBC 4.12 {M/mm3} (Abnormal) Range: 4.2-5.4 WBC 5.5 K/mm3 (Normal) Range: 4.4-11.0 :24 COMP METABOLIC GAP 7 (Normal) Range: 5-15 CO2 27.0 mmol/L (Normal) Range: 21.0-32.0 CL 106 mmol/L (Normal) Range: 98-107 K 4.1 mmol/L (Normal) Range: 3.5-5.1 NA 140 mmol/L (Normal) Range: 136-145 T BILI 0.30 mg/dL (Normal) Range: 0.00-1.00 ALT 27 U/L (Normal) Range: 12-78 ALK P 68 U/L (Normal) Range: 50-136 AST 16 U/L (Normal) Range: 15-37 CA 8.9 mg/dL (Normal) Range: 8.5-10.1 A/G 0.9 {RATIO} (Normal) Range: 0.9-2.4 GLOB 3.8 g/dL (Normal) Range: 2.7-4.2 ALB 3.6 g/dL (Normal) Range: 3.4-5.0 T PROT 7.4 g/dL (Normal) Range: 6.4-8.2 BUN/CRE 21.3 {RATIO} (Abnormal) Range: 10-20 EST GFR - AA 95 mL/min (Normal) EST GFR 78 mL/min (Normal) CREAT,SERUM 0.8 mg/dL (Normal) Range: 0.6-1.0 BUN 17 mg/dL (Normal) Range: 7-18 GLU 154 mg/dL (Abnormal) Range: 70-110 Comments: Fasting Glucose result greater than or equal to 126 mg/dL suggests DIABETES MELLITUS per A.D.A. criteria. :24 LIPID VLDL 26 mg/dL (Normal) Range: 5-40 LDL 74 mg/dL (Normal) Range: 0-130 HDL 39 mg/dL (Abnormal) Comments: Reference Range HDL <40 mg/dL Low HDL Cholesterol HDL >or= 60 mg/dL High HDL Cholesterol TRIG 130 mg/dL (Normal) Comments: Serum Triglycerides Reference Interval Normal <150 mg/dL Borderline high 150 - 199 mg/dL High 200 - 499 mg/dL Very High > or = 500 mg/dL CHOL 139 mg/dL (Normal) Comments: <200 mg/dL Desirable 200-240 mg/dL Borderline >240 mg/dL High Risk :24 MICROALB:CRE UR MALB:CREAT 5.4 {mg/g_CRE} (Normal) MICROALBUMIN,UR 8.3 mg/L (Normal) UR CREAT 152.1 mg/dL (Normal) :24 TSH 1.09 {uIU/mL} (Normal) Range: 0.358-3.74 :24 VIT D,25 93940 37.4 ng/mL (Normal) Range: 30.0-100.0 Comments: Vitamin D deficiency has been defined by the Sargent ofMedicine and an Endocrine Society practice guideline as alevel of serum 25-OH vitamin D less than 20 ng/mL (1,2).The Endocrine Society went on to further define vitamin Dinsufficiency as a level between 21 and 29 ng/mL (2).1. IOM (Sargent of Medicine). 2011. Dietary reference intakes for calcium and D. [place]: The National Academies Press.2. Eleni MF, Lorne NC, Dayron WALTON, et al. Evaluation, treatment, and prevention of vitamin D deficiency: an Endocrine Society clinical practice guideline. JCEM. 2010; 96(7): 1911-30.Performed at: [facility] Lab[address] [id number] Director: Leigh Palomo MD, Phone: [phone] 9-Wvg-033113:43 Blood Glucose , Office (96381) Blood Glucose , Office 141 (Normal) 08-Kls-40689:08 BILAT SCRN DIGITAL & CAD Radiology Report See Note (Normal) Comments: MAMMOGRAPHY - BILATERAL SCREENING REASON FOR EXAM: Female, 60 years old. Routine annual screeningexamination. PERTINENT HISTORY: Non-contributory. TECHNIQUE: Digital examination. Med iolateral ob lique (MLO) andcraniocaudad (CC) views of both breasts were obtained. CAD: CAD wasperformed on this study. COMPARISON: Comparison is made with prior study dated April 09, 2008. FINDINGS:The breast c omposition is composed of scattered fibroglandular densities. There are no masses or suspicious microcalcifications. No other significant abnormalities are identified. There has been nosignificant elaine ge since the prior study. IMPRESSION:Normal bilateral screening mammogram. One year follow-up recommended. (A) ASSESSMENT CATEGORY:BIRADS Category 2: Benign finding(s). A letter regarding these resul tswill be sent to the patient by the facility within 30 days. Approximately 10% of breast cancers are not detected by mammography. Anormal mammogram should not delay biopsy of a clinically suspiciousab normality. Dictated on 04/07/11 0925 by Jonah HUTCHINSON,CirstinorieleTranscribed on 04/07/11 1031 by ITS IMPORTSign by Leobardo Mckenzie MD on 04/07/11 1032 Sign by: Leobardo Mckenzie MD 70-Gct-957892:03 Rapid Strep Test, Office (97806) Comments: neg Rapid Strep Test, Office Negative (Normal) 20-Tlz-208531:48 MEHREEN CULTURE-OTHER (97230) Comments: PATIENT NOT FASTINGPERFORMED BY: LabYvonne [place] [id number] [facility] [id number] Information: SRC:THRT [id number] Result 1 RRF (Normal) Comments: Routine respiratory marilin Upper Respiratory Culture Final report (Normal) 71-Uzj-911047:37 Rapid Strep Test, Office (95279) Rapid Strep Test, Office Negative (Normal) 53-Tsi-210260:05 Rapid Flu (98094 x 2) Influenza A Ag negative (Normal) 39-Rxe-89674:18 MICROALBUMIN: CREATININE RATIO Comments: PATIENT WAS FASTINGPERFORMED BY: LabCoJoel [place] [id number] [facility] [id number] ([id number]) AND (79212) Microalb/Creat Ratio 2.4 {mg/g_creat} (Normal) Range: 0.0-30.0 Microalbumin, Urine 4.6 ug/mL (Normal) Range: 0.0-17.0 Creatinine, Urine 189.1 mg/dL (Normal) Range: 15.0-278.0 :18 CBC WITH MANUAL DIFF Comments: PATIENT WAS FASTINGPERFORMED BY: LabCoVirtua VoorheesJmjofo4432 [facility] [id number] Information: [id number] (43331) Immature Grans (Abs) 0.0 {x10E3/uL} (Normal) Range: 0.0-0.1 Baso (Absolute) 0.1 {x10E3/uL} (Normal) Range: 0.0-0.2 Immature Granulocytes 0 % (Normal) Range: 0-1 Eos (Absolute) 0.4 {x10E3/uL} (Normal) Range: 0.0-0.4 Monocytes(Absolute) 0.7 {x10E3/uL} (Normal) Range: 0.1-1.0 Lymphs (Absolute) 1.3 {x10E3/uL} (Normal) Range: 0.7-4.5 Neutrophils (Absolute) 3.8 {x10E3/uL} (Normal) Range: 1.8-7.8 Basos 2 % (Normal) Range: 0-3 Eos 6 % (Normal) Range: 0-7 Monocytes 11 % (Normal) Range: 4-13 Lymphs 21 % (Normal) Range: 14-46 Neutrophils 60 % (Normal) Range: 40-74 Platelets 384 {x10E3/uL} (Normal) Range: 140-415 RDW 13.3 % (Normal) Range: 11.7-15.0 MCH 30.3 pg (Normal) Range: 27.0-34.0 MCHC 33.3 g/dL (Normal) Range: 32.0-36.0 MCV 91 fL (Normal) Range: 80-98 Hematocrit 41.1 % (Normal) Range: 34.0-44.0 Hemoglobin 13.7 g/dL (Normal) Range: 11.5-15.0 RBC 4.52 {x10E6/uL} (Normal) Range: 3.80-5.10 WBC 6.4 {x10E3/uL} (Normal) Range: 4.0-10.5 :18 METABOLIC PANEL, COMPREHENSIVE Comments: PATIENT WAS FASTINGPERFORMED BY: [facility]Co Ndflco1704 [address] [facility] [id number] ([id number]) ALT (SGPT) 21 [iU]/L (Normal) Range: 0-40 Alkaline Phosphatase, S 69 [iU]/L (Normal) Range: 25-150 AST (SGOT) 22 [iU]/L (Normal) Range: 0-40 A/G Ratio 1.5 (Normal) Range: 1.1-2.5 Bilirubin, Total 0.3 mg/dL (Normal) Range: 0.0-1.2 Globulin, Total 2.8 g/dL (Normal) Range: 1.5-4.5 Albumin, Serum 4.1 g/dL (Normal) Range: 3.5-5.5 Protein, Total, Serum 6.9 g/dL (Normal) Range: 6.0-8.5 Calcium, Serum 10.1 mg/dL (Normal) Range: 8.7-10.2 Carbon Dioxide, Total 23 mmol/L (Normal) Range: 20-32 Chloride, Serum 100 mmol/L (Normal) Range: 97-108 Potassium, Serum 4.6 mmol/L (Normal) Range: 3.5-5.2 BUN/Creatinine Ratio 14 (Normal) Range: 9-23 Comments: Please note reference interval change eGFR AfricanAmerican >59 mL/min/1.73 Comments: Note: Persistent reduction for 3 months or more in an eGFR<60 mL/min/1.73 m2 defines CKD. Patients with eGFR values>/=60 mL/min/1.73 m2 may also have CKD if evidence of persistentproteinuria is (Normal) present. Additional information may be found [email or web address]. Sodium, Serum 138 mmol/L (Normal) Range: 135-145 eGFR >59 mL/min/1.73 (Normal) Creatinine, Serum 0.93 mg/dL (Normal) Range: 0.57-1.00 BUN 13 mg/dL (Normal) Range: 6-24 Comments: Please note reference interval change Glucose, Serum 143 mg/dL (Abnormal) Range: 65-99 :18 Vitamin D Hydroxy (86786) Comments: PATIENT WAS FASTINGPERFORMED BY: [facility] Eahvrl1160 [facility] [id number] Vitamin D, 25-Hydroxy 38.2 ng/mL (Normal) Range: 32.0-100.0 Comments: Recent studies consider the lower limit of 32.0 ng/mL to be athreshold for optimal health.Tom SOLIS. J Nutr. 2004;135(2):317-22. :18 LIPID PANEL (41286) Comments: PATIENT WAS FASTINGPERFORMED BY: LabCoVirtua VoorheesYxukma2110 [facility] [id number] LDL Cholesterol Calc 69 mg/dL (Normal) Range: 0-99 LDL/HDL Ratio 1.7 {ratio_units} (Normal) Range: 0.0-3.2 HDL Cholesterol 40 mg/dL (Normal) Comments: According to ATP-III Guidelines, HDL-C >59 mg/dL is considered anegative risk factor for CHD. VLDL Cholesterol Edgardo 37 mg/dL (Normal) Range: 5-40 Cholesterol, Total 146 mg/dL (Normal) Range: 100-199 Triglycerides 184 mg/dL (Abnormal) Range: 0-149 :18 TSH (09030) Comments: PATIENT WAS FASTINGPERFORMED BY: [facility]6370 [facility] [id number] TSH 1.380 {uIU/mL} (Normal) Range: 0.450-4.500 :58 HgA1C , Office (01479) HgA1C , Office 6.4 % (Normal) Range: 4.6 - 7.1 :58 Blood Glucose , Office (80483) Blood Glucose , Office 146 (Normal) 97-Gnf-265083:43 L/S SPINE,MIN 4 VIEWS (MT) Radiology Report See Note (Normal) Comments: Exam Number: [id number] CLINICAL:The patient is a 59-year-old woman with a history of low back pain. Norecent injury. X-RAY EXAMINATION: LUMBAR SPINE TECHNIQUE:Five views (AP, Lateral, oblique and coned down lumbosacral) of thelumbar spine. COMPARISON: There is straightening June 14, 2008 FINDINGS:There is straightening of the lumbar l lordosis There is nodemonstrated scoliosis. There is normal ali gnment of the lumbarvertebrae. There is mild deformity of vertebral bodies related to the presence ofosteophytes.. Disk spaces are mildly decreased diffusely. This is similar to thatseen on the previous examination.. . There is mild degenerative changeof the facet joints.. There is no obvious abnormality of sacroiliac jointsthere is surgical clips in the right upper quadrant compatible withcholecystec laine. IMPRESSION:There degenerative changes of the lumbar spine. The appearance of thelumbar spine has not significantly changed compared to the previousexamination of June 14, 2008 Signed: Nilson Retana M.D.May 13, 2010 at 11:56:04 AM ESTElectronically Signed PM/PM As part of our Air Conditioning Manager Program, we request that surgical orpathologic correlation, or any additional supportive or discordantmedical history, laboratory or imaging studies be forwarded [facility], attention: Peer ReviewCoordinator. , , [address] [facility], [address] [place] [address]. Reported By: CHASTITY RETANA M.D. 58-Pyq-998957:28 Urinalysis, Office (72654) UA - BILIRUBIN Negative (Normal) UA - BLOOD Negative (Normal) UA - GLUCOSE Negative (Normal) UA - KETONES Negative mg/dL (Normal) UA - LEUKOCYTE ESTERASE Negative (Normal) UA - NITRITE Negative (Normal) UA - PH 6.0 (Normal) UA - PROTEIN Negative mg/dL (Normal) UA - SPECIFIC GRAVITY 1.025 (Normal) URINE UROBILINGN SUNNY TIMED 2 mg/dL (Normal) 06-Vfu-996647:46 Thin prep Pap (74076) Comments: Source.............VaginalLMP / Prev Treat...HystNo. of containers..01 CYTYC Thin Prep VialPERFORMED BY: [facility] [address] [id number] Information: [id number] Note: PAPSMR (Normal) Comments: The Pap smear is a screening test designed to aid in the detection ofpremalignant and malignant conditions of the uterine cervix. It is not adiagnostic procedure and should not be used as the sole mean s of detectingcervical cancer. Both false-positive and false-negative reports do occur..The HPV DNA reflex criteria were not met with this specimen resulttherefore, no HPV testing was performed.. See Note . (Normal) DIAGNOSIS: SPRCS (Normal) Comments: NEGATIVE FOR INTRAEPITHELIAL LESION AND MALIGNANCY.Satisfactory for evaluation. No endocervical cells are present. This isconsistent with a history of hysterectomy.V72.31 ; Routine gynecological exami [facility] Hospitalmarquez, [employer] Worker (ASCP) 79-Xda-173321:06 Vitamin D Hydroxy (72461) Comments: PATIENT WAS FASTINGPERFORMED BY: [facility] [id number] Vitamin D, 25-Hydroxy 26.5 ng/mL (Abnormal) Range: 32.0-100.0 Comments: Recent studies consider the lower limit of 32.0 ng/mL to be athreshold for optimal health.Tom SOLIS. J Nutr. 2004;135(2):317-22. 18-Eke-579610:06 LIPID PANEL (76820) Comments: PATIENT WAS FASTINGPERFORMED BY: [facility] [id number] LDL Cholesterol Calc 57 mg/dL (Normal) Range: 0-99 LDL/HDL Ratio 1.4 {ratio_units} (Normal) Range: 0.0-3.2 VLDL Cholesterol Edgardo 32 mg/dL (Normal) Range: 5-40 HDL Cholesterol 41 mg/dL (Normal) Comments: According to ATP-III Guidelines, HDL-C >59 mg/dL is considered anegative risk factor for CHD. Triglycerides 162 mg/dL (Abnormal) Range: 0-149 Cholesterol, Total 130 mg/dL (Normal) Range: 100-199 14-Egl-867828:06 METABOLIC PANEL, Comments: PATIENT WAS FASTINGPERFORMED BY: [employer] [facility] [id number] Information: ADD [id number] AND DRAW FEE 99 6660 COMPREHENSIVE (22817) ALT (SGPT) 23 [iU]/L (Normal) Range: 0-40 AST (SGOT) 26 [iU]/L (Normal) Range: 0-40 A/G Ratio 1.4 (Normal) Range: 1.1-2.5 Alkaline Phosphatase, S 70 [iU]/L (Normal) Range: 25-150 Bilirubin, Total 0.3 mg/dL (Normal) Range: 0.0-1.2 Albumin, Serum 4.2 g/dL (Normal) Range: 3.5-5.5 Calcium, Serum 9.8 mg/dL (Normal) Range: 8.7-10.2 Carbon Dioxide, Total 22 mmol/L (Normal) Range: 20-32 Chloride, Serum 103 mmol/L (Normal) Range: 97-108 Globulin, Total 3.0 g/dL (Normal) Range: 1.5-4.5 Potassium, Serum 4.7 mmol/L (Normal) Range: 3.5-5.2 Protein, Total, Serum 7.2 g/dL (Normal) Range: 6.0-8.5 BUN/Creatinine Ratio 21 (Normal) Range: 8-27 eGFR AfricanAmerican >59 mL/min/1.73 Comments: Note: Persistent reduction for 3 months or more in an eGFR<60 mL/min/1.73 m2 defines CKD. Patients with eGFR values>/=60 mL/min/1.73 m2 may also have CKD if evidence of persistentproteinuria is (Normal) present. Additional information may be found [email or web address]. Sodium, Serum 140 mmol/L (Normal) Range: 135-145 BUN 16 mg/dL (Normal) Range: 5-26 Creatinine, Serum 0.78 mg/dL (Normal) Range: 0.57-1.00 eGFR >59 mL/min/1.73 (Normal) Glucose, Serum 125 mg/dL (Abnormal) Range: 65-99 :20 HgA1C , Office (43095) HgA1C , Office 6.8 % (Normal) Range: 4.6 - 7.1 :20 Blood Glucose , Office (72830) Blood Glucose , Office 129 (Normal) 37-Nza-221781:38 Rapid Strep Test, Office (04133) Rapid Strep Test, Office Negative (Normal) 91-Hcd-777885:09 HgA1C , Office (63917) HgA1C , Office 6.9 % (Normal) Range: 4.6 - 7.1 94-Zvk-802594:09 Blood Glucose , Office (85478) Blood Glucose , Office 127 (Normal) :14 METABOLIC PANEL, COMPREHENSIVE Comments: PATIENT WAS FASTINGPERFORMED BY: LabCoVirtua VoorheesHyreml3316 [facility] [id number] (96302) Alkaline Phosphatase, S 60 [iU]/L (Normal) Range: 25-150 ALT (SGPT) 22 [iU]/L (Normal) Range: 0-40 AST (SGOT) 20 [iU]/L (Normal) Range: 0-40 Bilirubin, Total 0.2 mg/dL (Normal) Range: 0.1-1.2 A/G Ratio 1.4 (Normal) Range: 1.1-2.5 Albumin, Serum 4.2 g/dL (Normal) Range: 3.5-5.5 Calcium, Serum 10.1 mg/dL (Normal) Range: 8.7-10.2 Carbon Dioxide, Total 24 mmol/L (Normal) Range: 20-32 Globulin, Total 2.9 g/dL (Normal) Range: 1.5-4.5 Protein, Total, Serum 7.1 g/dL (Normal) Range: 6.0-8.5 BUN/Creatinine Ratio 25 (Normal) Range: 8-27 Chloride, Serum 103 mmol/L (Normal) Range: 97-108 Potassium, Serum 4.6 mmol/L (Normal) Range: 3.5-5.2 Sodium, Serum 139 mmol/L (Normal) Range: 135-145 BUN 20 mg/dL (Normal) Range: 5-26 Creatinine, Serum 0.80 mg/dL (Normal) Range: 0.57-1.00 eGFR >59 mL/min/1.73 (Normal) eGFR AfricanAmerican >59 mL/min/1.73 Comments: Note: Persistent reduction for 3 months or more in an eGFR<60 mL/min/1.73 m2 defines CKD. Patients with eGFR values>/=60 mL/min/1.73 m2 may also have CKD if evidence of persistentproteinuria is (Normal) present. Additional information may be found [email or web address]. Glucose, Serum 141 mg/dL (Abnormal) Range: 65-99 :14 CBC WITH MANUAL DIFF Comments: PATIENT WAS FASTINGPERFORMED BY: LabCoVirtua VoorheesYrzbqm1458 [facility] [id number] Information: [id number] (26289) Baso (Absolute) 0.0 {x10E3/uL} (Normal) Range: 0.0-0.2 Eos (Absolute) 0.0 {x10E3/uL} (Normal) Range: 0.0-0.4 Monocytes(Absolute) 0.4 {x10E3/uL} (Normal) Range: 0.1-1.0 Lymphs (Absolute) 1.7 {x10E3/uL} (Normal) Range: 0.7-4.5 Basos 0 % (Normal) Range: 0-3 Eos 0 % (Normal) Range: 0-7 Monocytes 9 % (Normal) Range: 4-13 Neutrophils (Absolute) 2.7 {x10E3/uL} (Normal) Range: 1.8-7.8 Lymphs 35 % (Normal) Range: 14-46 Neutrophils 56 % (Normal) Range: 40-74 Platelets 342 {x10E3/uL} (Normal) Range: 140-415 RDW 13.3 % (Normal) Range: 11.7-15.0 Hematocrit 37.1 % (Normal) Range: 34.0-44.0 MCH 31.1 pg (Normal) Range: 27.0-34.0 MCHC 34.6 g/dL (Normal) Range: 32.0-36.0 MCV 90 fL (Normal) Range: 80-98 Hemoglobin 12.8 g/dL (Normal) Range: 11.5-15.0 RBC 4.12 {x10E6/uL} (Normal) Range: 3.80-5.10 WBC 4.9 {x10E3/uL} (Normal) Range: 4.0-10.5 :14 MICROALBUMIN URINE QUANT Comments: PATIENT WAS FASTINGPERFORMED BY: [facility]6370 [facility] [id number] (60707) Microalb/Creat Ratio <.8 {mg/g_creat} (Normal) Range: 0.0-30.0 Microalbumin, Urine <1.0 ug/mL (Normal) Range: 0.0-17.0 Creatinine, Urine 124.3 mg/dL (Normal) Range: 15.0-278.0 :14 TSH (85867) Comments: PATIENT WAS FASTINGPERFORMED BY: [facility]6370 [facility] [id number] TSH 2.150 {uIU/mL} (Normal) Range: 0.450-4.500 Comments: Effective July 22, 2009, TSH reference interval for11 - 19 years will be changing to: 0.450 - 4.500 uIU/mLReference interval for all other ages will NOT be affected. :14 Vitamin D Hydroxy (97318) Comments: PATIENT WAS FASTINGPERFORMED BY: LabCodeSquareVirtua VoorheesIetbab2441 [facility] [id number] Vitamin D, 25-Hydroxy 26.6 ng/mL (Abnormal) Range: 32.0-100.0 Comments: Recent studies consider the lower limit of 32.0 ng/mL to be athreshold for optimal health.Tom SOLIS. J Nutr. 2004;135(2):317-22. :14 LIPID PANEL (65093) Comments: PATIENT WAS FASTINGPERFORMED BY: [facility]6370 [facility] [id number] HDL Cholesterol 42 mg/dL (Normal) Comments: According to ATP-III Guidelines, HDL-C >59 mg/dL is considered anegative risk factor for CHD. LDL Cholesterol Calc 100 mg/dL (Abnormal) Range: 0-99 LDL/HDL Ratio 2.4 {ratio_units} (Normal) Range: 0.0-3.2 Triglycerides 172 mg/dL (Abnormal) Range: 0-149 VLDL Cholesterol Edgardo 34 mg/dL (Normal) Range: 5-40 Cholesterol, Total 176 mg/dL (Normal) Range: 100-199 :07 HgA1C , Office (94756) HgA1C , Office 6.1 % (Normal) Range: 4.6 - 7.1 :07 Blood Glucose , Office (88569) Blood Glucose , Office 232 (Normal) 15-Peq-05920:25 Lower Respiratory Culture Comments: Clinical Information: SRC:SP PERFORMED BY: [facility]6370 [facility] [id number] Lower Respiratory Culture Final report (Normal) Result 1 RRF (Normal) Comments: Routine respiratory marilin :00 Influenza A, H1N1, RT PCR Comments: Clinical Information: SRC:NL PERFORMED BY: [place] [id number] [facility] [id number] Subtype Novel H1N1 by Negative (Normal) PCR Type Influenza A by Negative (Normal) PCR Viral Final report Comments: PERFORMED BY: Snatch that JerkyYvonne [place] 1046270 [facility] [id number] :00 Culture,Rapid,Influen (Normal) Comments: Negative:No Influenza A or B detected. za 92-Ehu-443672:29 CHEST, PA AND LATERAL (MT) Radiology Report See Note (Normal) Comments: Exam Number: [id number] CLINICAL:58-year-old woman with cough and shortness of breath. She also has fever. Symptoms for two days. X-RAY EXAMINATION: CHEST TECHNIQUE:PA and lateral views of the chest. C OMPARISON:Second September 2006 FINDINGS:The lungs are clear and fully expanded. There are no pleural effusions. The heart is normal in size and morphology. Normal visualized aortic arch and descending thoracic aorta. There is no demonstrated mediastinal or hilar abnormality. The visualized pulmonary arteries are normal, without pulmonary vascular congestion. The visualized osseous structures are un remarkable. IMPRESSION:No acute or active cardiopulmonary process. Reported By: ROSEMARIE ROBBINS M.D. 94-Dyz-137118:45 Rapid Strep Test, Office (29634) Comments: done ch Rapid Strep Test, Office Negative (Normal) 62-Sjp-815688:32 Rapid Flu (13220 x 2) Comments: done INFLUENZA IMMUNOASSY negative (Normal) DIRECT OPTICAL OBSERV :00 FLU A+B DIRECT See Note (Normal) Comments: Negative test results should be confirmed by culture. Order Rapid Viral Culture for Influenzae A+B (942019) if clinically indicated. INFLUENZA ANTIGEN,DIRECT Presumptive NEGATIVE for Influenza A/B Antigen (See Note) 56-Xnr-693238:04 METABOLIC PANEL, COMPREHENSIVE Comments: PATIENT WAS FASTINGPERFORMED BY: [employer] Ggeqza7707 [facility] [id number] (60088) A/G Ratio 1.6 (Normal) Range: 1.1-2.5 Albumin, Serum 4.4 g/dL (Normal) Range: 3.5-5.5 Alkaline Phosphatase, S 67 [iU]/L (Normal) Range: 25-150 ALT (SGPT) 27 [iU]/L (Normal) Range: 0-40 AST (SGOT) 29 [iU]/L (Normal) Range: 0-40 Bilirubin, Total 0.3 mg/dL (Normal) Range: 0.1-1.2 BUN 14 mg/dL (Normal) Range: 5-26 BUN/Creatinine Ratio 18 (Normal) Range: 8-27 Calcium, Serum 9.9 mg/dL (Normal) Range: 8.5-10.6 Carbon Dioxide, Total 22 mmol/L (Normal) Range: 20-32 Chloride, Serum 105 mmol/L (Normal) Range: 97-108 Creatinine, Serum 0.77 mg/dL (Normal) Range: 0.57-1.00 eGFR >59 mL/min/1.73 (Normal) eGFR AfricanAmerican >59 mL/min/1.73 Comments: Note: Persistent reduction for 3 months or more in an eGFR<60 mL/min/1.73 m2 defines CKD. Patients with eGFR values>/=60 mL/min/1.73 m2 may also have CKD if evidence of persistentproteinuria is (Normal) present. Additional information may be found [email or web address]. Globulin, Total 2.8 g/dL (Normal) Range: 1.5-4.5 Glucose, Serum 104 mg/dL (Abnormal) Range: 65-99 Potassium, Serum 4.9 mmol/L (Normal) Range: 3.5-5.2 Protein, Total, Serum 7.2 g/dL (Normal) Range: 6.0-8.5 Sodium, Serum 141 mmol/L (Normal) Range: 135-145 :04 MICROALBUMIN: CREATININE RATIO Comments: PATIENT WAS FASTINGPERFORMED BY: LabCodeSquareVirtua VoorheesHufaer5530 [facility] [id number] (32818) AND (27614) Creatinine, Urine 124.0 mg/dL (Normal) Range: 15.0-278.0 Microalb/Creat Ratio 1.5 {ug/mg_creat} (Normal) Range: 0.0-30.0 Microalbumin, Urine 1.9 ug/mL (Normal) Range: 0.0-17.0 84-Gdi-201707:04 LIPID PANEL (68654) Comments: PATIENT WAS FASTINGPERFORMED BY: [employer]6370 [address] [employer] EnergyDublin [place] [id number] Cholesterol, Total 155 mg/dL (Normal) Range: 100-199 HDL Cholesterol 44 mg/dL (Normal) Comments: According to ATP-III Guidelines, HDL-C >59 mg/dL is considered anegative risk factor for CHD. LDL Cholesterol Calc 89 mg/dL (Normal) Range: 0-99 LDL/HDL Ratio 2.0 {ratio_units} (Normal) Range: 0.0-3.2 Triglycerides 109 mg/dL (Normal) Range: 0-149 VLDL Cholesterol Edgardo 22 mg/dL (Normal) Range: 5-40 97-Ppi-161471:04 Vitamin D Hydroxy (54761) Comments: PATIENT WAS FASTINGPERFORMED BY: [employer] Ecdcfo6066 [address] [employer] Energyblin [place] [id number] Vitamin D, 25-Hydroxy 24.9 ng/mL (Abnormal) Range: 32.0-100.0 Comments: Recent studies consider the lower limit of 32.0 ng/mL to be athreshold for optimal health.Tom SOLIS. J Nutr. 2004;135(2):317-22. 48-Iaj-657332:04 C-REACTIVE PROTEIN (20484) Comments: PATIENT WAS FASTINGPERFORMED BY: [employer] [facility] Uppojr9105 [address] [facility]bl[facility] [place] [id number] C-Reactive Protein, Quant 4.4 mg/L (Normal) Range: 0.0-4.9 71-Jol-449172:04 CBC WITH MANUAL DIFF (63214) Comments: PATIENT WAS FASTINGClinical Information: ADD DRAW FEE 926519 ADD J 19178 PERFORMED BY: Snatch that JerkyCoGlideUtyawk9832 [address] [facility] Hospital[facility] PointeAdvasenseblin [place] [id number] Baso (Absolute) 0.1 {x10E3/uL} (Normal) Range: 0.0-0.2 Basos 1 % (Normal) Range: 0-3 Eos 0 % (Normal) Range: 0-7 Eos (Absolute) 0.0 {x10E3/uL} (Normal) Range: 0.0-0.4 Lymphs 31 % (Normal) Range: 14-46 Lymphs (Absolute) 1.6 {x10E3/uL} (Normal) Range: 0.7-4.5 Monocytes 9 % (Normal) Range: 4-13 Monocytes(Absolute) 0.5 {x10E3/uL} (Normal) Range: 0.1-1.0 Neutrophils 59 % (Normal) Range: 40-74 Neutrophils (Absolute) 3.0 {x10E3/uL} (Normal) Range: 1.8-7.8 Platelets 363 {x10E3/uL} (Normal) Range: 140-415 Hematocrit 38.7 % (Normal) Range: 34.0-44.0 Hemoglobin 13.3 g/dL (Normal) Range: 11.5-15.0 MCH 30.9 pg (Normal) Range: 27.0-34.0 MCHC 34.4 g/dL (Normal) Range: 32.0-36.0 MCV 90 fL (Normal) Range: 80-98 RBC 4.31 {x10E6/uL} (Normal) Range: 3.80-5.10 RDW 13.5 % (Normal) Range: 11.7-15.0 WBC 5.0 {x10E3/uL} (Normal) Range: 4.0-10.5 08-Uvd-377437:04 TSH (00463) Comments: PATIENT WAS FASTINGPERFORMED BY: LabCoVirtua VoorheesBsxnrr5102 [facility] [id number] TSH 1.151 {uIU/mL} (Normal) Range: 0.450-4.500 80-Oyn-683921:00 HgA1C , Office (97883) HgA1C , Office 6.2 % (Normal) Range: 4.6 - 7.1 48-Gra-510711:00 Blood Glucose , Office (09583) Blood Glucose , Office 132 (Normal) 23-Tqb-539241:39 ABDOMEN WITH IV CONTRAST Radiology Report See Note (Normal) Comments: Exam Number: [id number] CT ABDOMEN WITH CONTRAST CLINICAL STATEMENTRight upper quadrant abdominal pain. COMPARISON STUDIESNone. TECHNIQUERoutine CT of the abdomen was performed. The study was performed inconjunction with a CT of the chest which was dictated separately. FINDINGSThe lung bases are clear and the heart size is normal. Thegallbladder is surgically absent. The spleen is normal. The liver ismildly enlarged. The bile ducts appear within normal limits. Thepancreas is unremarkable. There is a small less than 1-cm noduleassociated with the right adrenal gland. This is unchanged comparedt o June 2006 and likely represents an incidental adenoma. Theabdominal vessels enhance appropriately. The aorta is mildlyatherosclerotic. The included segments of bowel are unremarkable. Evaluation of the bowel, however, is compromised by lack of oralcontrast. There is no intraabdominal mass or fluid collection. Thereare small mesenteric lymph nodes present which are not pathologicallyenlarged. IMPRESSION1. No acute process is shown in the upper abdomen.2. The liver appears mildly enlarged.3. The patient is status post cholecystectomy.4. There is a stable 10-mm right adrenal nodule likely related to anincidental adenoma. Reported By: EDILIA WHEELER M.D. 04-Enp-537520:38 CHEST WITH CONTRAST Radiology Report See Note (Normal) Comments: Exam Number: [id number] CT OF THE CHEST WITH CONTRAST. STATEMENTCough, shortness of breath, and right upper quadrant pain. COMPARISON STUDYChest CT October 18, 2006. TECHNIQUEFollowing the uneventful administration of 100 cc of Isovue 300,routine CT of the chest was performed. FINDINGSThe heart size is normal. There is no pericardial effusion. There ismild atherosclerotic calcification within t he aorta. The greatvessels enhance appropriately. The trachea and main bronchi arepatent. The esophagus is normal in course and caliber. There is amild pattern of mediastinal lymphadenopathy which i s improved comparedto the prior study. Thoracic inlet structures are unremarkable. Review of the lung parenchyma demonstrates stable bilateral calcifiedand noncalcified pulmonary nodules. These like ly are the sequela ofremote granulomatous disease. No acute infiltrate or consolidation. There is minimal biapical scarring. There is no pleural effusion. The chest wall structures appear intact. The re are mild degenerativechanges present in the dorsal spine. IMPRESSION No acute intrathoracic process. Stable bilateral pulmonary nodules likely from the presence of remotegranulomatous disease. N o acute superimposed process is shown. Mild interval improvement in mediastinal lymphadenopathy. Reported By: EDILIA WHEELER M.D. : ZEESHAN 35 U/L (Normal) Comments: LIVER FUNCTION: PLEASE CALL DR CHEN TAP PULLER FOR DR CHRISTINA. 46 Range: 25-115 74-Yzx-585299: C-REACTIVE PROT 13.74 mg/L (Abnormal) Comments: LIVER FUNCTION: PLEASE CALL DR CHEN TAP PULLER FOR DR CHRISTINA. 46 Range: 0.0-6.0 Comments: Test performed using the Dimension C-Reactive ProteinExtended Range assay method. This assay meets the AHA/CDC 2003 recommendations fordetermining patients at high risk for cardiovasculardisease. Reference: High risk CRP >3.0 mg/L :46 CBCD,SMEAR DIFF BAND 1 % (Normal) Range: 0-5 CELLS COUNTED 100 (Normal) EOS 7 % (Abnormal) Range: 0-5 HCT 39.0 % (Normal) Range: 37-47 HGB 13.4 g/dL (Normal) Range: 12.0-16.0 LYMPH 22 % (Normal) Range: 19-41 MCH 30.6 pg (Normal) Range: 27.0-32.0 MCHC 34.4 g/dL (Normal) Range: 32-36 MCV 89.1 fL (Normal) Range: 81-99 MONOCYTE 6 % (Normal) Range: 0-10 PLT 399 K/mm3 (Normal) Range: 150-450 PLT EST SeeNote (Normal) Comments: Result: ADEQUATE RBC 4.38 {M/mm3} (Normal) Range: 4.2-5.4 RDW 13.5 % (Normal) Range: 11.6-14.6 RED CELL MORPH SeeNote {NORMAL} (Normal) Comments: Result: NORM C+C SEGS 64 % (Normal) Range: 47-70 WBC 5.6 K/mm3 (Normal) Range: 4.4-11.0 :46 COMP METABOLIC Comments: LIVER FUNCTION: PLEASE CALL DR CHEN TAP PULLER FOR DR FUENTES A/G 1.2 {RATIO} (Normal) Range: 0.9-2.4 ALB 4.0 g/dL (Normal) Range: 3.4-5.0 ALK P 84 U/L (Normal) Range: 50-136 ALT 44 U/L (Normal) Range: 30-65 AST 28 U/L (Normal) Range: 15-37 BUN 12 mg/dL (Normal) Range: 7-18 BUN/CRE 13.3 {RATIO} (Normal) Range: 10-20 CA 9.5 mg/dL (Normal) Range: 8.5-10.1 CL 104 mmol/L (Normal) Range: 98-107 CO2 27.9 mmol/L (Normal) Range: 21.0-32.0 CREAT,SERUM 0.9 mg/dL (Normal) Range: 0.6-1.0 EST GFR 69 mL/min (Normal) EST GFR - AA 84 mL/min (Normal) GAP 8 (Normal) Range: 5-15 GLOB 3.4 g/dL (Normal) Range: 2.7-4.2 GLU 108 mg/dL (Normal) Range: 70-110 K 4.7 mmol/L (Normal) Range: 3.5-5.1 NA 140 mmol/L (Normal) Range: 136-145 T BILI 0.26 mg/dL (Normal) Range: 0.00-1.00 T PROT 7.4 g/dL (Normal) Range: 6.4-8.2 07-Fpf-468466:46 D-DIMER QUANT <200 ng/mL (Normal) Comments: NORMAL D-Dimer level indicates no DVT or PE. RESULTS CALLED TO DR CHEN 09/21/08 1704 RAD HOOD.REPORT READ BACK BY SAME . 84-Esw-327820:46 ESR SED RATE 29 mm/h (Normal) Range: 0-30 12-Smx-462009:46 LIPASE 239 U/L (Normal) Comments: LIVER FUNCTION: PLEASE CALL DR CHEN, TAP PULLER FOR DR CHRISTINA. Range: 114-286 09-Syj-804472:12 HgA1C , Office (49237) HgA1C , Office 6.1 % (Normal) Range: 4.6 - 7.1 83-Gop-039141:12 Blood Glucose , Office (06530) Blood Glucose , Office 116 (Normal) 90-Ixs-404600:48 Urine Culture,Comprehensive Comments: Clinical Information: SRC:UR PERFORMED BY: [facility]6370 [facility] [id number] Result 1 MUG (Normal) Comments: Mixed urogenital secsw028 Colonies/mL Urine Culture,Comprehensive Final report (Normal) 05-Eas-775767:31 L/S SPINE,MIN 4 VIEWS (MT) Radiology Report See Note (Normal) Comments: Exam Number: [id number] LUMBAR SPINE, 5 VIEWS CLINICAL STATEMENTFollow up bone density study, question compression of L5. COMPARISONBone Dexatometry May 03, 2008. 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 Vertebral body height andalignment appears maintained. Multilevel mild degenerative discchanges are present throughout the lumbar spine with end plateosteophyte formation present. There is mini mal concavity of the [id number] end plate likely secondary to degenerative change rather thana compression deformity. Anterior vertebral body height ismaintained. There is mild facet joint spondylosis . There isstraightening of lumbar lordosis. There is mild atheroscleroticcalcification of the aorta. IMPRESSION1. Mild multilevel degenerative disc changes present throughout theentire lumbar spine and lower dorsal spine with osteophyte formation. 2. Minimal end plate changes of the superior L5 vertebral body likelysecondary to degenerative disc change rather than compressiondeformity.3. Straig htened lumbar lordosis likely secondary to position orspasm. Reported By: EDILIA WHEELER M.D. [id number] METABOLIC PANEL, COMPREHENSIVE Comments: PATIENT WAS FASTINGPERFORMED BY: LabCoVirtua VoorheesRvmfbd5987 [facility] [id number] ([id number]) A/G Ratio 1.4 (Normal) Range: 1.1-2.5 Albumin, Serum 4.3 g/dL (Normal) Range: 3.5-5.5 Alkaline Phosphatase, S 73 [iU]/L (Normal) Range: 25-150 ALT (SGPT) 16 [iU]/L (Normal) Range: 0-40 AST (SGOT) 21 [iU]/L (Normal) Range: 0-40 Bilirubin, Total 0.2 mg/dL (Normal) Range: 0.1-1.2 BUN/Creatinine Ratio 19 (Normal) Range: 8-27 Calcium, Serum 10.0 mg/dL (Normal) Range: 8.5-10.6 Carbon Dioxide, Total 24 mmol/L (Normal) Range: 20-32 Chloride, Serum 103 mmol/L (Normal) Range: 97-108 Globulin, Total 3.0 g/dL (Normal) Range: 1.5-4.5 If -Vincentian >59 mL/min/1.73 Comments: Note: Persistent reduction for 3 months or more in an eGFR<60 mL/min/1.73 m2 defines CKD. Patients with eGFR values>/=60 mL/min/1.73 m2 may also have CKD if evidence of persistentproteinur ia is (Normal) present. Additional information may be found [email or web address]. Potassium, Serum 4.9 mmol/L (Normal) Range: 3.5-5.2 Protein, Total, Serum 7.3 g/dL (Normal) Range: 6.0-8.5 Sodium, Serum 140 mmol/L (Normal) Range: 135-145 BUN 15 mg/dL (Normal) Range: 5-26 Creatinine, Serum 0.80 mg/dL (Normal) Range: 0.57-1.00 Glom Filt Rate, Est >59 mL/min/1.73 (Normal) Glucose, Serum 136 mg/dL (Abnormal) Range: 65-99 39-Umw-36848:59 CBC WITH MANUAL DIFF ([id number]) Comments: PATIENT WAS FASTINGClinical Information: ADD DRAW FEE [id number] ADD J [id number] PERFORMED BY: LabCoVirtua VoorheesGsfkgx4646 [facility] [id number] Baso (Absolute) 0.0 {x10E3/uL} (Normal) Range: 0.0-0.2 Basos 0 % (Normal) Range: 0-3 Eos 2 % (Normal) Range: 0-7 Eos (Absolute) 0.1 {x10E3/uL} (Normal) Range: 0.0-0.4 Hematocrit 40.2 % (Normal) Range: 34.0-44.0 Hemoglobin 13.8 g/dL (Normal) Range: 11.5-15.0 Lymphs 24 % (Normal) Range: 14-46 Lymphs (Absolute) 1.6 {x10E3/uL} (Normal) Range: 0.7-4.5 MCH 30.3 pg (Normal) Range: 27.0-34.0 MCHC 34.3 g/dL (Normal) Range: 32.0-36.0 MCV 88 fL (Normal) Range: 80-98 Monocytes 8 % (Normal) Range: 4-13 Monocytes(Absolute) 0.5 {x10E3/uL} (Normal) Range: 0.1-1.0 Neutrophils 66 % (Normal) Range: 40-74 Neutrophils (Absolute) 4.4 {x10E3/uL} (Normal) Range: 1.8-7.8 Platelets 404 {x10E3/uL} (Normal) Range: 140-415 RBC 4.56 {x10E6/uL} (Normal) Range: 3.80-5.10 RDW 13.4 % (Normal) Range: 11.7-15.0 WBC 6.7 {x10E3/uL} (Normal) Range: 4.0-10.5 :59 HEPATIC FUNCTION PANEL Comments: PATIENT WAS FASTINGPERFORMED BY: [employer] [id number] [facility] [id number] ([id number]) Bilirubin, Direct 0.09 mg/dL (Normal) Range: 0.00-0.40 :59 LIPID PANEL ([id number]) Comments: PATIENT WAS FASTINGPERFORMED BY: [facility] [id number] [facility] [id number] Cholesterol, Total 156 mg/dL (Normal) Range: 100-199 HDL Cholesterol 43 mg/dL (Normal) Comments: According to ATP-III Guidelines, HDL-C >59 mg/dL is considered anegative risk factor for CHD. LDL Cholesterol Calc 77 mg/dL (Normal) Range: 0-99 LDL/HDL Ratio 1.8 {ratio_units} (Normal) Range: 0.0-3.2 Triglycerides 180 mg/dL (Abnormal) Range: 0-149 VLDL Cholesterol Edgardo 36 mg/dL (Normal) Range: 5-40 45-Ijn-191829:27 Urinalysis, Office (98121) UA - BILIRUBIN Negative (Normal) UA - BLOOD Non Hemolyzed Trace (Normal) UA - GLUCOSE Negative (Normal) UA - KETONES Negative mg/dL (Normal) UA - LEUKOCYTE ESTERASE Trace (Normal) UA - NITRITE Negative (Normal) UA - PH 5.0 (Normal) UA - PROTEIN Negative mg/dL (Normal) UA - SPECIFIC GRAVITY 1.025 (Normal) URINE UROBILINGN SUNNY TIMED Normal mg/dL (Normal) :58 DEXA BONE DENSITY STUDY () Radiology Report See Note (Normal) Comments: Exam Number: [id number] BONE DENSITOMETRY HISTORYOsteopenia. TECHNIQUE Bone densitometry of the lumbar spine and left hip was performed. Thebest criteria for evaluation of osteoporosis is the T-valu e, whichrepresents the comparison of the patient's bone mass to an expectedpeak bone mass. For most patients, the mean T-value of L1 through L4is used to evaluate the lumbar spine. Based on the newest WorldHealth Organization classifications, the hip is evaluated by utilizingthe lower of the T-value of the total hip or the T-value of thefemoral neck. FINDINGSIn this patient, the mean T-value of L1 through L4 is 0.5 which isnormal. Digital lateral view for evaluation of vertebral deformityonly raises the possibility of mild compression of the superior endplate of L5. The T value of the left fem oral neck is 0.2 which isnormal. The T-value of the total hip is 1.8 which is normal. IMPRESSIONBone densitometry of the lumbar spine and left hip is within normal limits. Reported By: CHASTITY RETANA M.D. :35 AORTA ULTRASOUND () Radiology Report See Note (Normal) Comments: Exam Number: [id number] ULTRASOUND OF ABDOMINAL AORTA HISTORYFamily history of aneurysm. High-resolution real-time sector images were obtained. The proximal aorta measures 2.7 x 2 cm which is normal. The mid aortameasures 1.8 x 2.3 cm which is normal. The distal aorta measures1.3 x 2 cm which is normal. The right proximal common iliac arterymeasures l0 x 15 mm and the left common iliac artery alison ures 9 x 16mm. The caliber is upper normal. IMPRESSION1. There is no aneurysmal dilatation of the abdominal aorta.2. Proximal iliac arteries are upper normal in size. Reported By: CHASTITY RETANA M.D. :06 URINE MEHREEN CULTURE-SUNNY COL Comments: PATIENT NOT FASTINGClinical Information: SRC:[facility] [id number] PERFORMED BY: [facility]in6370 [facility] [id number] COUNT ([id number]) Result 1 Proteus mirabilis Comments: 2,000 Colonies/mL (Normal) Result 2 BETAGB (Normal) Comments: Beta hemolytic Streptococcus, group B5,000 Colonies/mLPenicillin continues to be the drug of choice for infectionscaused by beta hemolytic streptococci in groups A,B,C and G.No penicillin resistance walton s been described among theseorganisms and surveillance for emerging resistance is notrecommended. (ANURAG Hooker. Clinical Microbiology Newsletter,1993; CLARA Washburn et al. Diagnostic Microbiology Bharath nfectious Disease, November,.) S = Susceptible; I = Intermediate; R = Resistant P = Positive; N = Negative MICS are expressed in micrograms per mL Antibioti c RSLT#1 RSLT#2 RSLT#3 RSLT#4Amoxicillin/Clavulanic Acid SAmpicillin SCefepime SCeftriaxone SCefuroxime SCephalothin SCiprofloxacin SGentamicin SImipenem SLevofloxacin SNitrofurantoin RPiperacillin/Tazobactam STetracycline RTobramycin STrimethoprim/Sulfa S Urine Final report (Normal) Culture,Comprehensive :19 HEPATIC FUNCTION PANEL Comments: PATIENT WAS FASTINGClinical Information: ADD DRAW FEE [id number] ADD J [id number] PERFORMED BY: [email or web address] [facility] [id number] ([id number]) Albumin, Serum 4.0 g/dL (Normal) Range: 3.5-5.5 Alkaline Phosphatase, S 91 [iU]/L (Normal) Range: 25-150 ALT (SGPT) 18 [iU]/L (Normal) Range: 0-40 AST (SGOT) 21 [iU]/L (Normal) Range: 0-40 Bilirubin, Direct 0.11 mg/dL (Normal) Range: 0.00-0.40 Bilirubin, Total 0.4 mg/dL (Normal) Range: 0.1-1.2 Protein, Total, Serum 6.8 g/dL (Normal) Range: 6.0-8.5 :19 LIPID PANEL ([id number]) Comments: PATIENT WAS FASTINGPERFORMED BY: [email or web address] [facility] [id number] Cholesterol, Total 159 mg/dL (Normal) Range: 100-199 HDL Cholesterol 41 mg/dL (Normal) Range: 40-59 Comments: EFFECTIVE APRIL 30, 2008 the reference interval for HDL-C will be changing to: >39 mg/dL LDL Cholesterol Calc 80 mg/dL (Normal) Range: 0-99 LDL/HDL Ratio 2.0 {ratio_units} (Normal) Range: 0.0-3.2 Triglycerides 192 mg/dL (Abnormal) Range: 0-149 VLDL Cholesterol Edgardo 38 mg/dL (Normal) Range: 5-40 85-Xzr-152713:08 Urinalysis, Office (90889) Comments: done km UA - BILIRUBIN Negative (Normal) UA - BLOOD Negative (Normal) UA - GLUCOSE Negative (Normal) UA - KETONES Negative mg/dL (Normal) UA - LEUKOCYTE ESTERASE Small (Normal) UA - NITRITE Negative (Normal) UA - PH 6.0 (Normal) UA - PROTEIN Negative mg/dL (Normal) UA - SPECIFIC GRAVITY 1.015 (Normal) URINE UROBILINGN SUNNY TIMED Normal mg/dL (Normal) 68-Qzk-58060:25 HgA1C , Office (81269) HgA1C , Office 5.7 % (Normal) Range: 4.6 - 7.1 85-Tvt-40586:25 Blood Glucose , Office (04412) Blood Glucose , Office 127 (Normal) 96-Bif-354879:47 UNILAT LT DIAG DIGITAL & CAD Radiology Report See Note (Normal) Comments: Exam Number: [id number] MAMMOGRAM, UNILATERAL LEFT DIAGNOSTIC DIGITAL AND CAD HISTORYLeft breast microcalcifications. Full field digital images were obtained in mediolateral oblique andcraniocaudal spot views. The current study is compared to the examinations of December 2000 andApril 09, 2008. There is moderately dense fibroglandular parenchyma present. There abner group of calcifications in the upper ou ter quadrant of the leftbreast. Most of these calcifications are coarse. Several of thesecalcifications can be seen on the examination of January 25, 2001. Although the number of calcifications has incre ased, thesecalcifications are most likely benign. For further evaluation, left6-month followup mammogram is recommended. IMPRESSIONThere is a group of calcifications in the upper outer quadrant of thel eft breast. Although the number of calcifications has increasedslightly, the calcifications are most likely benign. Left 6 monthfollowup mammogram is recommended. FINAL ASSESSMENTProbably benign. BIR ADs category 3. A letter regarding these results has been sent to the patient. This interpretation was rendered by a radiologist certified under theMammography Quality Standards Act of 1992 (MQSA). Th e mammograms werealso examined with computer-aided detection software ([employer], [employer] Reported By: CHASTITY RETANA M.D. :10 [facility] DIGITAL & CAD Radiology Report See Note (Normal) Comments: Exam Number: [id number] MAMMOGRAM, BILATERAL SCREENING DIGITAL AND CAD HISTORYRoutine screening. Full field digital images were obtained in mediolateral oblique andcraniocaudal projections. CAD images w ere reviewed. The current study is compared to the examination of December 2000. There is moderately dense fibroglandular parenchyma present. There isno skin thickening or retraction, architectural distort ion, ordominant mass. There are areas of asymmetric parenchymal densitywhich are stable. There is a group of calcifications in the upperouter quadrant of the left breast. There was only 1 calcificati on atthis location previously. For further evaluation, magnification spotviews and mediolateral oblique and craniocaudal projections arerecommended. IMPRESSIONThere is a cluster of calcifications in th e left breast for whichmagnification spot views are recommended. FINAL ASSESSMENTNeed additional imaging evaluation. BIRADS Category 0. A letter regarding these results has been sent to the patient. This interpretation was rendered by a radiologist certified under theMammography Quality Standards Act of 1992 (MQSA). The mammograms werealso examined with computer-aided detection software ([employer], [employer] Reported By: CHASTITY RETANA M.D. :36 HgA1C , Office (57941) HgA1C , Office 7.4 % (Abnormal) Range: 4.6 - 7.1 :36 Blood Glucose , Office (91649) Blood Glucose , Office 168 (Normal) :15 COMP METABOLIC A/G 1.1 {RATIO} (Normal) Range: 0.9-2.4 ALB 3.8 g/dL (Normal) Range: 3.4-5.0 ALK P 79 U/L (Normal) Range: 50-136 ALT 36 U/L (Normal) Range: 30-65 AST 19 U/L (Normal) Range: 15-37 BUN 17 mg/dL (Normal) Range: 7-18 BUN/CRE 18.9 {RATIO} (Normal) Range: 10-20 CA 9.5 mg/dL (Normal) Range: 8.5-10.1 CL 105 mmol/L (Normal) Range: 98-107 CO2 30.1 mmol/L (Normal) Range: 21.0-32.0 CREAT,SERUM 0.9 mg/dL (Normal) Range: 0.6-1.0 GAP 4 (Abnormal) Range: 5-15 GLOB 3.5 g/dL (Normal) Range: 2.7-4.2 GLU 170 mg/dL (Abnormal) Range: 70-110 Comments: Fasting Glucose result greater than or equal to 126 mg/dL suggests DIABETES MELLITUS per A.D.A. criteria. K 4.1 mmol/L (Normal) Range: 3.5-5.1 NA 139 mmol/L (Normal) Range: 136-145 T BILI 0.19 mg/dL (Normal) Range: 0.00-1.00 T PROT 7.3 g/dL (Normal) Range: 6.4-8.2 76-Tgb-930306:15 LIPID CHOL 165 mg/dL (Normal) Comments: <200 mg/dL Desirable 200-240 mg/dL Borderline >240 mg/dL High Risk HDL 37 mg/dL (Normal) Comments: Reference Range HDL <40 mg/dL Low HDL Cholesterol HDL >or= 60 mg/dL High HDL Cholesterol LDL 101 mg/dL (Normal) Range: 0-130 TRIG 137 mg/dL (Normal) Comments: Serum Triglycerides Reference Interval Normal <150 mg/dL Borderline high 150 - 199 mg/dL High 200 - 499 mg/dL Very High > or = 500 mg/dL VLDL 27 mg/dL (Normal) Range: 5-40 38-Vzl-737882:15 MICROALBUMIN,UR 6.7 mg/L (Normal) :15 TSH 1.71 {uIU/mL} (Normal) Range: 0.34-4.82 :46 CBC WITH MANUAL DIFF (85680) Comments: PATIENT NOT FASTINGClinical Information: ADD [id number] ADD [id number] PERFORMED BY: TARAS LabCoVirtua VoorheesRsmrgv7305 [facility] [id number] Baso (Absolute) 0.0 {x10E3/uL} (Normal) Range: 0.0-0.2 Basos 1 % (Normal) Range: 0-3 Eos 0 % (Normal) Range: 0-7 Eos (Absolute) 0.0 {x10E3/uL} (Normal) Range: 0.0-0.4 Hematocrit 41.3 % (Normal) Range: 34.0-44.0 Hemoglobin 14.3 g/dL (Normal) Range: 11.5-15.0 Lymphs 26 % (Normal) Range: 14-46 Lymphs (Absolute) 0.9 {x10E3/uL} (Normal) Range: 0.7-4.5 MCH 30.6 pg (Normal) Range: 27.0-34.0 MCHC 34.7 g/dL (Normal) Range: 32.0-36.0 MCV 88 fL (Normal) Range: 80-98 Monocytes 9 % (Normal) Range: 4-13 Monocytes(Absolute) 0.3 {x10E3/uL} (Normal) Range: 0.1-1.0 Neutrophils 64 % (Normal) Range: 40-74 Neutrophils (Absolute) 2.2 {x10E3/uL} (Normal) Range: 1.8-7.8 Platelets 298 {x10E3/uL} (Normal) Range: 140-415 RBC 4.66 {x10E6/uL} (Normal) Range: 3.80-5.10 RDW 13.5 % (Normal) Range: 11.7-15.0 WBC 3.4 {x10E3/uL} (Abnormal) Range: 4.0-10.5 :49 MYOCARD PERF SPECT REST/STRESS Radiology Report See Note (Normal) Comments: Exam Number: [id number] MYOCARDIAL PERFUSION SCAN TECHNIQUEThe patient was injected with 15 mCi of Tc99m Cardiolite andsubsequently rest SPECT Cardiolite nuclear imaging was obtained in thehorizontal karen g, vertical long, and short axes views. The patientunderwent pharmacologic (Adenosine) evaluation a peak heart rate of108 beats per minute (65 predicted maximum heart rate) with a peakblood pressure of 114/80 mmHg. The patient was injected with 44.8 mCiof Tc99m Cardiolite and subsequently rest SPECT Cardiolite nuclearimaging was obtained in the horizontal long, vertical long, and shortaxes views. G ated Cardiolite study at peak stress was obtained. INTERPRETATIONRest and stress SPECT Cardiolite nuclear imaging demonstratessignificant extracardiac/gastrointestinal tracer uptake and hepatictracer up take near the inferior segments. There appears to be at restareas of diminished tracer uptake in the mid to distalanterior/anteroseptal segments and status post stress diminishedtracer uptake, although less prominent, in similar areas. There isnotation of end systolic thickening and brightening and on the gatedCardiolite study myocardial thickening and inward wall motion. Theaforementioned changes appear somewhat similar on the resting andstress polar map images. The gated LVEF is 62%. The aforementionedchanges appear compatible with soft tissue attenuation/artifact whichappears somewhat more p rominent at rest as opposed to stress with nomyocardial perfusion changes considered diagnostic for stress inducedmyocardial ischemia. IMPRESSION1. Rest and stress SPECT Cardiolite nuclear imaging demo nstrates myocardial perfusion changes which appear compatible with soft tissue attenuation/artifact, potentially breast artifact, in portions of the anterior anteroseptal and apical areas with no myocardial perfusion changes considered diagnostic for stress induced myocardial ischemia. 2. The gated Cardiolite study reports an LVEF of 62%. Reported By: FLOR WEI M.D. :44 HgA1C , Office (67182) HgA1C , Office 7.2 % (Abnormal) Range: 4.6 - 7.1 :44 Blood Glucose , Office (73155) Blood Glucose , Office 141 (Normal) :48 HgA1C , Office (34360) HgA1C , Office 7.3 % (Abnormal) Range: 4.6 - 7.1 :47 Blood Glucose , Office (40024) Blood Glucose , Office 148 (Normal) :12 COMP METABOLIC A/G 1.0 {RATIO} (Normal) Range: 0.9-2.4 ALB 3.8 g/dL (Normal) Range: 3.4-5.0 ALK P 71 U/L (Normal) Range: 50-136 ALT 38 [iU]/L (Normal) Range: 30-65 AST 18 U/L (Normal) Range: 15-37 BUN 16 mg/dL (Normal) Range: 7-18 BUN/CRE 20.0 {RATIO} (Normal) Range: 10-20 CA 9.4 mg/dL (Normal) Range: 8.5-10.1 CL 106 mmol/L (Normal) Range: 98-107 CO2 25.9 mmol/L (Normal) Range: 21.0-32.0 Comments: Please Note Reference Interval Change CREAT,SERUM 0.8 mg/dL (Normal) Range: 0.6-1.0 GAP 9 (Normal) Range: 5-15 GLOB 3.8 g/dL (Normal) Range: 2.7-4.2 Comments: Please Note Reference Interval Change GLU 136 mg/dL (Abnormal) Range: 70-110 Comments: Fasting Glucose result greater than or equal to 126 mg/dL suggests DIABETES MELLITUS per A.D.A. criteria. K 3.9 mmol/L (Normal) Range: 3.5-5.1 NA 141 mmol/L (Normal) Range: 136-145 T BILI 0.35 mg/dL (Normal) Range: 0.00-1.00 T PROT 7.6 g/dL (Normal) Range: 6.4-8.2 54-Umy-099355:12 LIPID CHOL 171 mg/dL (Normal) Comments: <200 mg/dL Desirable 200-240 mg/dL Borderline >240 mg/dL High Risk HDL 37 mg/dL (Normal) Comments: Reference Range HDL <40 mg/dL Low HDL Cholesterol HDL >or= 60 mg/dL High HDL Cholesterol LDL 100 mg/dL (Normal) Range: 0-130 TRIG 168 mg/dL (Normal) Comments: Serum Triglycerides Reference Interval Normal <150 mg/dL Borderline high 150 - 199 mg/dL High 200 - 499 mg/dL Very High > or = 500 mg/dL VLDL 34 mg/dL (Normal) Range: 5-40 55-Zkx-407710:12 TSH 1.61 {uIU/mL} (Normal) Range: 0.34-4.82 :10 CBCD,SMEAR DIFF BASOPHIL 1 % (Normal) Range: 0-1 CELLS COUNTED 100 (Normal) EOS 6 % (Abnormal) Range: 0-5 HCT 40.2 % (Normal) Range: 37-47 HGB 13.8 Gm/dl (Normal) Range: 12.0-16.0 LYMPH 26 % (Normal) Range: 19-41 MCH 30.6 PG (Normal) Range: 27-32 MCHC 34.3 g/dL (Normal) Range: 32-36 MCV 89 fL (Normal) Range: 81-99 MONOCYTE 7 % (Normal) Range: 0-10 PLT 383 K/mm3 (Normal) Range: 150-450 PLT EST SeeNote (Normal) Comments: Result: ADEQUATE RBC 4.50 {M/mm3} (Normal) Range: 4.2-5.4 RDW 12.3 % (Normal) Range: 11.6-14.6 RED CELL MORPH SeeNote {NORMAL} (Normal) Comments: Result: NORM C+C SEGS 60 % (Normal) Range: 47-70 WBC 5.3 K/mm3 (Normal) Range: 4.4-11.0 :46 Blood Glucose , Office (85263) Blood Glucose , Office 163 (Normal) :24 HgA1C , Office (65249) HgA1C , Office 6.6 % (Normal) Range: 4.6 - 7.1 :24 Blood Glucose , Office (99036) Blood Glucose , Office low (Normal) :09 HgA1C , Office (81863) Comments: done HgA1C , Office 6.5 % (Normal) Range: 4.6 - 7.1 :09 Blood Glucose , Office (88220) Comments: done Blood Glucose , Office 161 (Normal) :37 CBCD,SMEAR DIFF BASOPHIL 3 % (Abnormal) Range: 0-1 CELLS COUNTED 100 (Normal) EOS 5 % (Normal) Range: 0-5 HCT 37.2 % (Normal) Range: 37-47 HGB 13.1 g/dL (Normal) Range: 12.0-16.0 LYMPH 34 % (Normal) Range: 19-41 MCH 30.5 pg (Normal) Range: 27.0-32.0 MCHC 35.2 g/dL (Normal) Range: 32-36 MCV 86.7 fL (Normal) Range: 81-99 MONOCYTE 7 % (Normal) Range: 0-10 PLT 360 K/mm3 (Normal) Range: 150-450 PLT EST SeeNote (Normal) Comments: Result: ADEQUATE RBC 4.28 {M/mm3} (Normal) Range: 4.2-5.4 RDW 13.5 % (Normal) Range: 11.6-14.6 RED CELL MORPH SeeNote {NORMAL} (Normal) Comments: Result: NORM C&C SEGS 51 % (Normal) Range: 47-70 WBC 4.5 K/mm3 (Normal) Range: 4.4-11.0 :37 COMP METABOLIC A/G 1.1 {RATIO} (Normal) Range: 0.9-2.4 ALB 3.6 g/dL (Normal) Range: 3.4-5.0 ALK P 71 U/L (Normal) Range: 50-136 ALT 41 [iU]/L (Normal) Range: 30-65 AST 22 U/L (Normal) Range: 15-37 BUN 18 mg/dL (Normal) Range: 7-18 BUN/CRE 22.5 {RATIO} (Abnormal) Range: 10-20 CA 8.9 mg/dL (Normal) Range: 8.5-10.1 CL 104 mmol/L (Normal) Range: 98-107 CO2 28.9 mmol/L (Normal) Range: 22.0-29.0 CREAT,SERUM 0.8 mg/dL (Normal) Range: 0.6-1.0 GAP 8 (Normal) Range: 5-15 GLOB 3.4 g/dL (Normal) Range: 2.3-3.5 GLU 134 mg/dL (Abnormal) Range: 70-110 Comments: Fasting Glucose result greater than or equal to 126 mg/dL suggests DIABETES MELLITUS per A.D.A. criteria. K 4.3 mmol/L (Normal) Range: 3.5-5.1 NA 141 mmol/L (Normal) Range: 136-145 T BILI 0.33 mg/dL (Normal) Range: 0.00-1.00 T PROT 7.0 g/dL (Normal) Range: 6.4-8.2 :37 LIPID LDL 75 mg/dL (Normal) Range: 0-130 VLDL 29 mg/dL (Normal) Range: 5-40 CHOL 139 mg/dL (Normal) Comments: <200 mg/dL Desirable 200-240 mg/dL Borderline >240 mg/dL High Risk HDL 35 mg/dL (Normal) Comments: Reference Range HDL <40 mg/dL Low HDL Cholesterol HDL >or= 60 mg/dL High HDL Cholesterol TRIG 143 mg/dL (Normal) Comments: Serum Triglycerides Reference Interval Normal <150 mg/dL Borderline high 150 - 199 mg/dL High 200 - 499 mg/dL Very High > or = 500 mg/dL :37 ROUTINE UA BILIRUBIN URINE SeeNote (Normal) Comments: Result: NEGATIVE CLARITY SeeNote (Normal) Comments: Result: SL CLOUDY COLOR YELLOW (Normal) GLUCOSE, UR SeeNote (Normal) Comments: Result: NEGATIVE KETONE UR SeeNote mg/dL (Normal) Comments: Result: NEGATIVE LEUK ESTERASE TRACE (Abnormal) NITRITE UR SeeNote (Normal) Comments: Result: NEGATIVE OCCULT BLOOD-UR SeeNote (Normal) Comments: Result: NEGATIVE pH UR 5.0 (Normal) Range: 5.0-8.0 PROT DIPSTX SeeNote (Normal) Comments: Result: NEGATIVE SP.GR. DIPSTX >=1.030 (Normal) Range: 1.002-1.030 UROBILI 0.2 EU/dl (Normal) Range: 0.2 - 1.0 :37 TSH 1.40 {uIU/mL} (Normal) Range: 0.34-4.82 :05 HgA1C , Office (96670) HgA1C , Office 7.2 % (Abnormal) Range: 4.6 - 7.1 :05 Blood Glucose , Office (41839) Blood Glucose , Office 114 (Normal) :35 BMP Comments: Precautions*: NOT APPLICABLE BUN 18 mg/dL (Normal) Range: 7-18 BUN/CRE 20.0 {RATIO} (Normal) Range: 10-20 CA 8.5 mg/dL (Normal) Range: 8.5-10.1 CL 105 mmol/L (Normal) Range: 98-107 CO2 28.1 mmol/L (Normal) Range: 22.0-29.0 CREAT,SERUM 0.9 mg/dL (Normal) Range: 0.6-1.0 GAP 7 (Normal) Range: 5-15 GLU 167 mg/dL (Abnormal) Range: 70-110 Comments: Fasting Glucose result greater than or equal to 126 mg/dL suggests DIABETES MELLITUS per A.D.A. criteria. K 4.3 mmol/L (Normal) Range: 3.5-5.1 NA 140 mmol/L (Normal) Range: 136-145 :35 CBC Comments: Precautions*: NOT APPLICABLE HCT 37.8 % (Normal) Range: 37-47 HGB 12.9 g/dL (Normal) Range: 12.0-16.0 MCH 30.0 pg (Normal) Range: 27.0-32.0 MCHC 34.2 g/dL (Normal) Range: 32-36 MCV 87.9 fL (Normal) Range: 81-99 PLT 329 K/mm3 (Normal) Range: 150-450 RBC 4.30 {M/mm3} (Normal) Range: 4.2-5.4 RDW 13.0 % (Normal) Range: 11.6-14.6 WBC 8.5 K/mm3 (Normal) Range: 4.4-11.0 :35 MG 2.6 mg/dL (Abnormal) Comments: Precautions*: NOT APPLICABLE Range: 1.5-2.2 :35 PHOS 3.5 mg/dL (Normal) Comments: Precautions*: NOT APPLICABLE Range: 2.5-4.9 :15 BMP Comments: COMMENTS: IN AMPrecautions*: NOT APPLICABLE BUN 16 mg/dL (Normal) Range: 7-18 BUN/CRE 20.0 {RATIO} (Normal) Range: 10-20 CA 9.0 mg/dL (Normal) Range: 8.5-10.1 CL 104 mmol/L (Normal) Range: 98-107 CO2 25.3 mmol/L (Normal) Range: 22.0-29.0 CREAT,SERUM 0.8 mg/dL (Normal) Range: 0.6-1.0 GAP 10 (Normal) Range: 5-15 GLU 212 mg/dL (Abnormal) Range: 70-110 Comments: Glucose result greater than or equal to 200 mg/dLsuggests DIABETES MELLITUS per A.D.A. criteria. K 4.0 mmol/L (Normal) Range: 3.5-5.1 NA 139 mmol/L (Normal) Range: 136-145 :15 CBC Comments: COMMENTS: IN AMPrecautions*: NOT APPLICABLE HCT 39.8 % (Normal) Range: 37-47 HGB 13.6 g/dL (Normal) Range: 12.0-16.0 MCH 30.2 pg (Normal) Range: 27.0-32.0 MCHC 34.2 g/dL (Normal) Range: 32-36 MCV 88.3 fL (Normal) Range: 81-99 PLT 339 K/mm3 (Normal) Range: 150-450 RBC 4.50 {M/mm3} (Normal) Range: 4.2-5.4 RDW 12.9 % (Normal) Range: 11.6-14.6 WBC 7.4 K/mm3 (Normal) Range: 4.4-11.0 6-Zqd-814737:14 CHEST, PA AND LATERAL Radiology Report See Note (Normal) Comments: Exam Number: [id number] CHEST, PA AND LATERAL HISTORYShortness of breath. FINDINGSCardiac configuration is normal. There is mild overinflation of thelungs. No acute infiltrate, effusion, or pneumothora x is identified. IMPRESSIONNo acute changes noted in the lungs. Reported By: FLOR CHOWDHURY M.D. 56-Bfu-563609:59 CHEST, PA AND LATERAL Radiology Report See Note (Normal) Comments: Exam Number: [id number] PA AND LATERAL CHEST HISTORY Being done for shortness of breath. FINDINGSCardiac configuration is upper limits of normal to mildly enlarged. No acute infiltrate, effusion, or pn eumothorax is identified.There are a few scattered densities in both lower lungs, thought to beold granulamatous changes and unchanged from 06/16/06. There are mildemphysematous changes. IMPRESSION1. Chronic changes. No acute infiltrate identified. Reported By: FLOR CHOWDHURY M.D. 77-Lxe-358530:59 JHONNY [address]959 59 U/L (Normal) Range: 12-68 Comments: Performed At: [facility] [place] [id number] 98-Gqs-513221:06 JHONNY [address] 61 U/L (Normal) Range: 12-68 84-Hgf-902188:06 REBECCA-D [id number] REBECCA-DIRECT 31 U/mL (Normal) Range: 0-99 Comments: Negative <100 Equivocal 100 - 120 Positive >120 20-Wzh-118176:06 C-REACTIVE PROT 7.75 mg/L (Abnormal) Range: 0.0-6.0 Comments: Test performed using the Dimension C-Reactive ProteinExtended Range assay method. This assay meets the AHA/CDC 2003 recommendations fordetermining patients at high risk for cardiovasculardisease. Reference: High risk CRP >3.0 mg/L 74-Kgi-946388:06 CBCD,SMEAR DIFF CELLS COUNTED 100 (Normal) EOS 2 % (Normal) Range: 0-5 HCT 37.9 % (Normal) Range: 37-47 HGB 12.8 g/dL (Normal) Range: 12.0-16.0 LYMPH 26 % (Normal) Range: 19-41 MCH 29.9 pg (Normal) Range: 27.0-32.0 MCHC 33.8 g/dL (Normal) Range: 32-36 MCV 88.4 fL (Normal) Range: 81-99 MONOCYTE 9 % (Normal) Range: 0-10 PLT 352 K/mm3 (Normal) Range: 150-450 PLT EST SeeNote (Normal) Comments: Result: ADEQUATE RBC 4.29 {M/mm3} (Normal) Range: 4.2-5.4 RDW 12.7 % (Normal) Range: 11.6-14.6 RED CELL MORPH SeeNote {NORMAL} (Normal) Comments: Result: NORM C&C SEGS 63 % (Normal) Range: 47-70 WBC 4.4 K/mm3 (Normal) Range: 4.4-11.0 75-Itx-773353:06 ESR SED RATE 5 mm/h (Normal) Range: 0-30 25-Ius-409788:06 HISTOPL [id number] SeeNote (Normal) Comments: Result: Negative [facility]formed At[facility] [id number] [place], [place] [id number] At: [address] [id number] 45-Dpx-715601:06 LDH 170 U/L (Normal) Range: 100-190 21-Mgi-352819:06 RA LATEX 6502 4.4 {IU/mL} (Normal) Range: 0.0-13.9 64-Srz-307408:49 CBCD,SMEAR DIFF CELLS COUNTED 100 (Normal) EOS 3 % (Normal) Range: 0-5 HCT 38.3 % (Normal) Range: 37-47 HGB 13.5 g/dL (Normal) Range: 12.0-16.0 LYMPH 32 % (Normal) Range: 19-41 MCH 30.5 pg (Normal) Range: 27.0-32.0 MCHC 35.1 g/dL (Normal) Range: 32-36 MCV 86.8 fL (Normal) Range: 81-99 MONOCYTE 3 % (Normal) Range: 0-10 PLT 347 K/mm3 (Normal) Range: 150-450 PLT EST SeeNote (Normal) Comments: Result: ADEQUATE RBC 4.42 {M/mm3} (Normal) Range: 4.2-5.4 RDW 12.9 % (Normal) Range: 11.6-14.6 RED CELL MORPH SeeNote {NORMAL} (Normal) Comments: Result: NORM C&C SEGS 62 % (Normal) Range: 47-70 WBC 5.2 K/mm3 (Normal) Range: 4.4-11.0 03-Vwa-303465:49 COMP METABOLIC A/G 1.0 {RATIO} (Normal) Range: 0.9-2.4 ALB 3.8 g/dL (Normal) Range: 3.4-5.0 ALK P 83 U/L (Normal) Range: 50-136 ALT 41 [iU]/L (Normal) Range: 30-65 AST 20 U/L (Normal) Range: 15-37 BUN 13 mg/dL (Normal) Range: 7-18 BUN/CRE 16.3 {RATIO} (Normal) Range: 10-20 CA 9.5 mg/dL (Normal) Range: 8.5-10.1 CL 102 mmol/L (Normal) Range: 98-107 CO2 27.7 mmol/L (Normal) Range: 22.0-29.0 CREAT,SERUM 0.8 mg/dL (Normal) Range: 0.6-1.0 GAP 7 (Normal) Range: 5-15 GLOB 4.0 g/dL (Abnormal) Range: 2.3-3.5 GLU 162 mg/dL (Abnormal) Range: 70-110 Comments: Fasting Glucose result greater than or equal to 126 mg/dL suggests DIABETES MELLITUS per A.D.A. criteria. K 4.1 mmol/L (Normal) Range: 3.5-5.1 NA 137 mmol/L (Normal) Range: 136-145 T BILI 0.30 mg/dL (Normal) Range: 0.00-1.00 T PROT 7.8 g/dL (Normal) Range: 6.4-8.2 :49 HGB A1C 8.8 % (Abnormal) Range: 4.0-6.3 Comments: The methodology of Hgb A1C has changed to Sanjay BehringDimension RXL. No significant changes in patientresults are expected. The reference range remains the same. :49 MICROALB:CRE UR MALB:CREAT 1.9 {mg/g_CRE} (Normal) MICROALBUMIN,UR 2.8 mg/L (Normal) UR CREAT 143.8 mg/dL (Normal) :49 ROUTINE UA BILIRUBIN URINE SeeNote (Normal) Comments: Result: NEGATIVE CLARITY CLEAR (Normal) COLOR YELLOW (Normal) GLUCOSE, UR SeeNote (Normal) Comments: Result: NEGATIVE KETONE UR SeeNote mg/dL (Normal) Comments: Result: NEGATIVE LEUK ESTERASE TRACE (Abnormal) NITRITE UR SeeNote (Normal) Comments: Result: NEGATIVE OCCULT BLOOD-UR SeeNote (Normal) Comments: Result: NEGATIVE pH UR 5.0 (Normal) Range: 5.0-8.0 PROT DIPSTX SeeNote (Normal) Comments: Result: NEGATIVE SP.GR. DIPSTX >=1.030 (Normal) Range: 1.002-1.030 UROBILI 0.2 EU/dl (Normal) Range: 0.2 - 1.0 :49 TSH 1.94 {uIU/mL} (Normal) Range: 0.34-4.82 :31 HgA1C , Office (59676) HgA1C , Office 7.9 % (Abnormal) Range: 4.6 - 7.1 :31 Blood Glucose , Office (00962) Blood Glucose , Office 302 (Normal) Plan of Care Name Dates Details Instructions Hypertension : Reviewed Lab Indication: Hypertension Nonsmoker : Follow up in 3 months Indication: Nonsmoker Nonsmoker : Eprescribed prescriptions (G8553) Indication: Nonsmoker BMI 45.0-49.9, adult : Follow up in 1 month Indication: BMI 45.0-49.9, adult Nonsmoker : Eprescribed prescriptions (G8553) Indication: Nonsmoker Back pain : Follow up when possible for new to medicare physical Indication: Back pain Nonsmoker : Eprescribed prescriptions (G8553) Indication: Nonsmoker BMI 45.0-49.9, adult : Follow up in 1month for new to medicare physical Indication: BMI 45.0-49.9, adult Nonsmoker : Eprescribed prescriptions (G8553) Indication: Nonsmoker BMI 45.0-49.9, adult : Follow up in 1 month Indication: BMI 45.0-49.9, adult BMI 45.0-49.9, adult : Eprescribed prescriptions (G8553) Indication: BMI 45.0-49.9, adult Nonsmoker : Follow up in 1 week Indication: Nonsmoker Nonsmoker : Eprescribed prescriptions (G8553) Indication: Nonsmoker Nonsmoker : Follow up in 2 days Indication: Nonsmoker Hypertension : Eprescribed prescriptions (G8553) Indication: Hypertension Nonsmoker : Follow up in 3 months Indication: Nonsmoker Hypothyroidism : Follow up in 3 weeks after labs Indication: Hypothyroidism Nausea : Eprescribed prescriptions (G8553) Indication: Nausea Pain, flank, bilateral : Follow up if no improvement or if symptoms worsen Indication: Pain, flank, bilateral Pain, flank, bilateral : Kidney Stones *: kidney stone Indication: Pain, flank, bilateral BMI 45.0-49.9, adult : Eprescribed prescriptions (G8553) Indication: BMI 45.0-49.9, adult Urinary tract infection in female : Urinary Tract Infection in Women *: bladder infection Indication: Urinary tract infection in female Current nonsmoker : Eprescribed prescriptions (G8553) Indication: Current nonsmoker Redness of eye, left : Follow up if no improvement or if symptoms worsen Indication: Redness of eye, left Acute conjunctivitis : *Conjunctivitis Education Indication: Acute conjunctivitis BMI 45.0-49.9, adult : Eprescribed prescriptions (G8553) Indication: BMI 45.0-49.9, adult Cough : Follow up in 3 monthsn for Welcome to Medicare PHysical Indication: Cough Diabetes mellitus type II, controlled, with no complications (Renamed from Controlled type 2 diabetes mellitus without complication) : Eprescribed prescriptions (G8553) Indication: Diabetes mellitus type II, controlled, with no complications (Renamed from Controlled type 2 diabetes mellitus without complication) Benign essential hypertension : Follow up in 3 months Indication: Benign essential hypertension Diabetes mellitus type II, controlled, with no complications (Renamed from Controlled type 2 diabetes mellitus without complication) : Eprescribed prescriptions (G8553) Indication: Diabetes mellitus type II, controlled, with no complications (Renamed from Controlled type 2 diabetes mellitus without complication) Current nonsmoker : Follow up in 3 months Indication: Current nonsmoker Sciatica : Reviewed Lab Indication: Sciatica Diabetes mellitus type II, controlled, with no complications (Renamed from Controlled type 2 diabetes mellitus without complication) : Reviewed Lab Indication: Diabetes mellitus type II, controlled, with no complications (Renamed from Controlled type 2 diabetes mellitus without complication) Vitamin D deficiency, unspecified : Reviewed Lab Indication: Vitamin D deficiency, unspecified Fatigue : Eprescribed prescriptions (G8553) Indication: Fatigue Benign essential hypertension : Follow up in 2 weeks for follow up Indication: Benign essential hypertension Benign essential hypertension : Follow up in 3 months for GEn Med Indication: Benign essential hypertension Type 2 or unspecified type diabetes mellitus, uncontrolled : Eprescribed prescriptions (G8553) Indication: Type 2 or unspecified type diabetes mellitus, uncontrolled Elevated blood pressure reading : Continue Current Prescription(s) Indication: Elevated blood pressure reading Elevated blood pressure reading : BP MONITORING - SELF Indication: Elevated blood pressure reading Current nonsmoker : Follow up if no improvement or if symptoms worsen Indication: Current nonsmoker Acute exacerbation of COPD with asthma : Continue Current Prescription(s) Indication: Acute exacerbation of COPD with asthma Nonsmoker : Follow up tomorrow, come as walk in for solumedrol Indication: Nonsmoker Cough : Eprescribed prescriptions (G8553) Indication: Cough Type 2 or unspecified type diabetes mellitus, uncontrolled : Follow up in 3 months Indication: Type 2 or unspecified type diabetes mellitus, uncontrolled Type 2 or unspecified type diabetes mellitus, uncontrolled : Eprescribed prescriptions (G8553) Indication: Type 2 or unspecified type diabetes mellitus, uncontrolled Type 2 or unspecified type diabetes mellitus, uncontrolled : Follow up in 3 months Indication: Type 2 or unspecified type diabetes mellitus, uncontrolled Type 2 or unspecified type diabetes mellitus, uncontrolled : Eprescribed prescriptions (G8553) Indication: Type 2 or unspecified type diabetes mellitus, uncontrolled Hypothyroidism : Follow up in 3 months Indication: Hypothyroidism Chronic obstructive pulmonary disease, unspecified COPD type : Follow up in 3 months Indication: Chronic obstructive pulmonary disease, unspecified COPD type Hypothyroidism : Follow up in 3 months Indication: Hypothyroidism Type 2 or unspecified type diabetes mellitus, uncontrolled : Follow up in 2 weeks Indication: Type 2 or unspecified type diabetes mellitus, uncontrolled Type 2 or unspecified type diabetes mellitus, uncontrolled : Eprescribed prescriptions (G8553) Indication: Type 2 or unspecified type diabetes mellitus, uncontrolled Acute exacerbation of COPD with asthma : Make follow up apt with Silas and Critical Care NurseMaximino on September 23 between 2- Indication: Acute exacerbation of COPD with asthma Acute exacerbation of COPD with asthma : Eprescribed prescriptions (G8553) Indication: Acute exacerbation of COPD with asthma Wheezing : Follow up in 1 week Indication: Wheezing Acute exacerbation of COPD with asthma : Eprescribed prescriptions (G8553) Indication: Acute exacerbation of COPD with asthma Cough : Follow up tomorrow, as needed Indication: Cough Cough : Follow up tomorrow, as needed Indication: Cough Acute exacerbation of COPD with asthma : Eprescribed prescriptions (G8553) Indication: Acute exacerbation of COPD with asthma Acute exacerbation of COPD with asthma : Eprescribed prescriptions (G8553) Indication: Acute exacerbation of COPD with asthma DIABETES MELLITUS WITHOUT MENTION OF COMPLICATION; TYPE II OR UNSPECIFIED TYPE, NOT STATED UNCONTROLLED : Eprescribed prescriptions (G8553) Indication: DIABETES MELLITUS WITHOUT MENTION OF COMPLICATION; TYPE II OR UNSPECIFIED TYPE, NOT STATED UNCONTROLLED Encounter for gynecological examination without abnormal finding : Self breast exam Indication: Encounter for gynecological examination without abnormal finding Encounter for gynecological examination without abnormal finding : *Well Female Maintenance ([facility]) Indication: Encounter for gynecological examination without abnormal finding Type 2 or unspecified type diabetes mellitus, uncontrolled : Eprescribed prescriptions (G8553) Indication: Type 2 or unspecified type diabetes mellitus, uncontrolled Type 2 or unspecified type diabetes mellitus, uncontrolled : Eprescribed prescriptions (G8553) Indication: Type 2 or unspecified type diabetes mellitus, uncontrolled Acute exacerbation of COPD with asthma : Follow up if no improvement or if symptoms worsen Indication: Acute exacerbation of COPD with asthma Wheezing : Follow up tomorrow, as needed Indication: Wheezing Cough : Follow up tomorrow with [facility] [place] Indication: Cough Unspecified asthma with (acute) exacerbation : Flu (Influenza) *: flu Indication: Unspecified asthma with (acute) exacerbation Unspecified asthma with (acute) exacerbation : Eprescribed prescriptions (G8553) Indication: Unspecified asthma with (acute) exacerbation Other and unspecified hyperlipidemia : Diet, Exercise, and Wt loss Indication: Other and unspecified hyperlipidemia Type 2 or unspecified type diabetes mellitus, uncontrolled : Diet, Exercise, and Wt loss Indication: Type 2 or unspecified type diabetes mellitus, uncontrolled Other and unspecified hyperlipidemia : Diet, Exercise, and Wt loss Indication: Other and unspecified hyperlipidemia Type 2 or unspecified type diabetes mellitus, uncontrolled : Diet, Exercise, and Wt loss Indication: Type 2 or unspecified type diabetes mellitus, uncontrolled Well woman exam with routine gynecological exam : Pap Test (Cervical Smear) *: cervical cancer Indication: Well woman exam with routine gynecological exam Well woman exam with routine gynecological exam : Self breast exam Indication: Well woman exam with routine gynecological exam Acute exacerbation of COPD with asthma : *Antibiotic Usage Education - Female Indication: Acute exacerbation of COPD with asthma Acute exacerbation of COPD with asthma : *Antibiotic Usage Education - Female Indication: Acute exacerbation of COPD with asthma Acute exacerbation of COPD with asthma : Solu Medrol Injection/ Education Indication: Acute exacerbation of COPD with asthma Type 2 or unspecified type diabetes mellitus, uncontrolled : Diet, Exercise, and Wt loss Indication: Type 2 or unspecified type diabetes mellitus, uncontrolled Hypertension : Diet, Exercise, and Wt loss Indication: Hypertension Other and unspecified hyperlipidemia : Diet, Exercise, and Wt loss Indication: Other and unspecified hyperlipidemia Anxiety : Anxiety: anxiety Indication: Anxiety Chronic obstructive pulmonary disease, unspecified COPD type : Chronic Obstructive Pulmonary Disease (COPD) *: breathing Indication: Chronic obstructive pulmonary disease, unspecified COPD type Well woman exam with routine gynecological exam : Pap Test (Cervical Smear) *: cervical cancer Indication: Well woman exam with routine gynecological exam Well woman exam with routine gynecological exam : Self breast exam Indication: Well woman exam with routine gynecological exam Well woman exam with routine gynecological exam : *Well Female Maintenance (KF) Indication: Well woman exam with routine gynecological exam Well woman exam with routine gynecological exam : Pap/Pelvic/Bimanual/Rectal/Breast Exam was done. Indication: Well woman exam with routine gynecological exam Chronic obstructive pulmonary disease, unspecified COPD type : Chronic Obstructive Pulmonary Disease (COPD) *: copd Indication: Chronic obstructive pulmonary disease, unspecified COPD type Acute exacerbation of COPD with asthma : *Antibiotic Usage Education - Female Indication: Acute exacerbation of COPD with asthma Cough : Follow up in 1 week Indication: Cough Bronchitis : *URI Treatment Indication: Bronchitis Bronchitis : *URI Symptoms Indication: Bronchitis Bronchitis : *Antibiotic Usage Education - Female Indication: Bronchitis Acute sinusitis : *Antibiotic Usage Education - Female Indication: Acute sinusitis Allergic rhinitis : *Antibiotic Usage Education - Female Indication: Allergic rhinitis Bronchitis, acute : *Antibiotic Usage Education - Female Indication: Bronchitis, acute Low back pain : Reviewed Diagnostic Tests Indication: Low back pain Low back pain : FOLLOW UP IN 2 WEEKS Indication: Low back pain Well woman exam with routine gynecological exam : *Colon Cancer Screening Indication: Well woman exam with routine gynecological exam Well woman exam with routine gynecological exam : *Well Female Maintenance (KF) Indication: Well woman exam with routine gynecological exam Well woman exam with routine gynecological exam : Pap/Pelvic/Bimanual/Rectal/Breast Exam was done. Indication: Well woman exam with routine gynecological exam Type 2 or unspecified type diabetes mellitus, uncontrolled : Diet, Exercise, and Wt loss Indication: Type 2 or unspecified type diabetes mellitus, uncontrolled Flu : Follow up if no improvement or worsening Indication: Flu Unspecified bacterial pneumonia : Reviewed Diagnostic Tests Indication: Unspecified bacterial pneumonia Bronchitis : *URI Treatment Indication: Bronchitis Bronchitis : Antibiotic Usage Education - Female Indication: Bronchitis Bronchitis : URI Symptoms Indication: Bronchitis Cough : Antibiotic Usage Education - Female Indication: Cough Other and unspecified hyperlipidemia : Diet and Exercise Indication: Other and unspecified hyperlipidemia BACKACHE, NOS : Antibiotic Usage Education - Female Indication: BACKACHE, NOS Diarrhea : Diarrhea Education Indication: Diarrhea Diarrhea : Abd Pain Red Flags Indication: Diarrhea Pharyngitis, acute : Antibiotic Usage Education - Female Indication: Pharyngitis, acute DIABETES MELLITUS WITHOUT MENTION OF COMPLICATION; TYPE II OR UNSPECIFIED TYPE, NOT STATED UNCONTROLLED : *Diabetes Education Indication: DIABETES MELLITUS WITHOUT MENTION OF COMPLICATION; TYPE II OR UNSPECIFIED TYPE, NOT STATED UNCONTROLLED Hypertension : Diet and Exercise Indication: Hypertension Hypothyroidism : Continue Current Prescription(s) Indication: Hypothyroidism Hypertension : Continue Current Prescription(s) Indication: Hypertension Depression : FOLLOW UP IN 3 MONTHS Indication: Depression Acute exacerbation of COPD with asthma : Solu Medrol Injection/ Education Indication: Acute exacerbation of COPD with asthma Unspecified bacterial pneumonia : Antibiotic Usage Education - Female Indication: Unspecified bacterial pneumonia SOB (shortness of breath) on exertion : Solu Medrol Injection/ Education Indication: SOB (shortness of breath) on exertion SOB (shortness of breath) on exertion : URI Symptoms Indication: SOB (shortness of breath) on exertion SOB (shortness of breath) on exertion : Antibiotic Usage Education - Female Indication: SOB (shortness of breath) on exertion Enlarged lymph nodes, unspecified : FOLLOW UP IN 3 MONTHS Indication: Enlarged lymph nodes, unspecified Acute sinusitis : FOLLOW UP - MAKE APPT AFTER DIAGNOSTIC TESTS Indication: Acute sinusitis Planned Observations Cologuard - Strool Based DNA Test, CRC SCREEN (15043)Indication: Colon cancer screening (Renamed from Encounter for screening for malignant neoplasm of colon) On: 31-Hcb-754209:45 Request Cologuard - Strool Based DNA Test, CRC SCREEN (19317)Indication: Colon cancer screening (Renamed from Encounter for screening for malignant neoplasm of colon) On: 13-Szp-333513:02 Request GLUCOSE (84225)Indication: Hypoglycemia On: 85-Hxr-930986:48 Request Cortisol,Urinary Free 24- Hour Urine (74918)Indication: Adrenal adenoma, right On: 20-Joo-648187:54 Request Catecholamines,24-Hour Urine (46951)Indication: Adrenal adenoma, right On: 42-Iog-393149:54 Request DHEA (DEHYDROEPIANDROSTERONE) (04019)Indication: Adrenal adenoma, right On: 84-Gkh-318529:51 Request METABOLIC PANEL, COMPREHENSIVE (02695)Indication: Adrenal adenoma, right On: 76-Pad-864852:51 Request LIPID PANEL (49676)Indication: Hypercholesteremia On: 07-Spn-37455:23 Request HGB A1C (98210)Indication: Diabetes mellitus type II, controlled, with no complications (Renamed from Controlled type 2 diabetes mellitus without complication) On: 17-Tuc-891662:00 Request Comments: Jun 2016 1 week before apt METABOLIC PANEL, COMPREHENSIVE (59256)Indication: Hypercalcemia On: 95-Qxp-264996:03 Request GLUCOSE (56904)Indication: Type 2 or unspecified type diabetes mellitus, uncontrolled On: 82-Nlu-983756:00 Request METABOLIC PANEL, COMPREHENSIVE (20696)Indication: Type 2 or unspecified type diabetes mellitus, uncontrolled On: :28 Request CALCIFEDIOL (11038)Indication: Vitamin D deficiency, unspecified On: :27 Request URINALYSIS, W/ MICRO (99958)Indication: Type 2 or unspecified type diabetes mellitus, uncontrolled On: :18 Request MICROALBUMIN: CREATININE RATIO (71651) AND (18266)Indication: Type 2 or unspecified type diabetes mellitus, uncontrolled On: :18 Request TSH (13243)Indication: Type 2 or unspecified type diabetes mellitus, uncontrolled On: :18 Request Lipid Panel (33795)Indication: Type 2 or unspecified type diabetes mellitus, uncontrolled On: :18 Request Metabolic Panel, Comprehensive (00363)Indication: Type 2 or unspecified type diabetes mellitus, uncontrolled On: :18 Request HGB A1C (88004)Indication: Type 2 or unspecified type diabetes mellitus, uncontrolled On: :14 Request Comments: 6.6 CBC W/AUTO DIFF WBC (98558)Indication: Hypertension On: 83-Gwj-897434:07 Request METABOLIC PANEL, COMPREHENSIVE (77176)Indication: Hypertension On: 27-Ukj-717446:07 Request Vitamin D Hydroxy (17835)Indication: Vitamin D deficiency, unspecified On: 79-Vte-876817:07 Request LIPID PANEL (24417)Indication: Other and unspecified hyperlipidemia On: 32-Iaa-760446:07 Request Vitamin D Hydroxy (51802)Indication: Vitamin D deficiency, unspecified On: :15 Request CBC with auto diff (70660)Indication: Hypertension On: :14 Request TSH (53384)Indication: Hypothyroidism On: :14 Request MICROALBUMIN: CREATININE RATIO (63228) AND (28278)Indication: Type 2 or unspecified type diabetes mellitus, uncontrolled On: :14 Request METABOLIC PANEL, COMPREHENSIVE (86354)Indication: Hypertension On: :14 Request LIPID PANEL (10865)Indication: Other and unspecified hyperlipidemia On: :13 Request MYOGLOBIN (65277)Indication: Chest pain On: :52 Request CPK MB FRACTION (57004)Indication: Chest pain On: :52 Request ASSAY, TROPONIN, QUANTITATIVE (aka Troponin I) (65497)Indication: Chest pain On: :52 Request CBC WITH MANUAL DIFF (09249)Indication: Acute exacerbation of COPD with asthma On: :52 Request CALCIFEDIOL (59892)Indication: Depression On: :50 Request Lipid Panel (98860)Indication: Other and unspecified hyperlipidemia On: :50 Request TSH (00427)Indication: Hypothyroidism On: :49 Request URINALYSIS (77357)Indication: Hypertension On: :49 Request CBC WITH MANUAL DIFF (23140)Indication: Hypertension On: :49 Request Metabolic Panel, Comprehensive (61608)Indication: Hypertension On: :49 Request CBC (AUTO) (40300)Indication: Hypercalcemia On: 6-Bpv-568755:06 Request UPEP (89724)Indication: Hypercalcemia On: 2-Mtb-420242:06 Request SPEP (31081)Indication: Hypercalcemia On: 2-Uwl-500272:06 Request SED RATE ERYTHROCYTE (17828)Indication: Hypercalcemia On: 5-Uql-174918:06 Request CALCIUM SERUM (78834)Indication: Hypercalcemia On: 5-Oix-092155:05 Request PARATHORMONE (49031)Indication: Hypercalcemia On: 9-Xqt-492761:05 Request FECAL OCCULT HGB ASSAY- tubes sent home (08360)Indication: Well woman exam with routine gynecological exam On: 84-Pnn-655059:54 Request HgA1C , Office (48448)Indication: Type 2 or unspecified type diabetes mellitus, uncontrolled On: 69-Tap-568843:45 Request CBC WITH MANUAL DIFF ([id number])Indication: Osteopenia On: 37-Uuy-758390:23 Request Vitamin D Hydroxy (53195)Indication: Vitamin D deficiency, unspecified On: 47-Cci-303493:22 Request TSH (32690)Indication: Hypothyroidism On: 51-Gwv-814008:22 Request METABOLIC PANEL, COMPREHENSIVE (96119)Indication: Sarcoidosis On: 75-Jfk-714230:21 Request Thin prep Pap (17251)Indication: Well woman exam with routine gynecological exam On: 0-Tvc-212659:16 Request FECAL OCCULT HGB ASSAY- tubes sent home (96735)Indication: Well woman exam with routine gynecological exam On: 8-Fco-996240:16 Request METABOLIC PANEL, COMPREHENSIVE (40505)Indication: Type 2 or unspecified type diabetes mellitus, uncontrolled On: 6-Raf-799179:14 Request CBC WITH MANUAL DIFF (07112)Indication: Type 2 or unspecified type diabetes mellitus, uncontrolled On: 6-Wve-504825:14 Request MICROALBUMIN: CREATININE RATIO (11076) AND (96616)Indication: Type 2 or unspecified type diabetes mellitus, uncontrolled On: 9-Nib-459158:14 Request Vitamin D Hydroxy (52726)Indication: Vitamin D deficiency, unspecified On: 9-Jfr-947790:14 Request METABOLIC PANEL, COMPREHENSIVE (00903)Indication: Benign essential hypertension On: 1-Znb-127123:14 Request TSH ([id number])Indication: Hypothyroidism On: 2-Qnq-816826:14 Request LIPID PANEL (39585)Indication: Other and unspecified hyperlipidemia On: 3-Jfb-656715:14 Request HgA1C , Office (38025)Indication: Type 2 or unspecified type diabetes mellitus, uncontrolled On: 3-Eue-605769:43 Request CBC WITH MANUAL DIFF ([id number])Indication: Benign essential hypertension On: 1-Wjg-364979:22 Request METABOLIC PANEL, COMPREHENSIVE (43372)Indication: Benign essential hypertension On: 8-Nma-239278:22 Request LIPID PANEL (89872)Indication: Other and unspecified hyperlipidemia On: 7-Sar-046599:22 Request MEHREEN CULTURE-OTHER (10190)Indication: Pharyngitis, acute On: 90-Ubi-439588:38 Request LIPID PANEL (73673)Indication: Other and unspecified hyperlipidemia On: :40 Request CBC WITH MANUAL DIFF ([id number])Indication: DIABETES MELLITUS WITHOUT MENTION OF COMPLICATION; TYPE II OR UNSPECIFIED TYPE, NOT STATED UNCONTROLLED On: :40 Request METABOLIC PANEL, COMPREHENSIVE (25913)Indication: DIABETES MELLITUS WITHOUT MENTION OF COMPLICATION; TYPE II OR UNSPECIFIED TYPE, NOT STATED UNCONTROLLED On: 44-Ztj-713249:40 Request Vitamin D Hydroxy (62133)Indication: Vitamin D deficiency, unspecified On: 90-Vwv-372393:38 Request CULTURE, SPUTUM (28748)Indication: Flu On: 57-Jxw-711149:45 Request nasal influenza swab (80040) F0Yhulmatsmk: Cough On: 3-Czn-256328:00 Request Rapid Flu (22717 x 2)Indication: Cough On: 5-Ror-078071:53 Request HEPATIC FUNCTION PANEL (15326)Indication: Other and unspecified hyperlipidemia On: :42 Request LIPID PANEL ([id number])Indication: Other and unspecified hyperlipidemia On: :42 Request Vitamin D Hydroxy (47331)Indication: Vitamin D deficiency, unspecified On: :41 Request Lipase (13346)Indication: Nausea On: :41 Request Amylase (81691)Indication: Nausea On: :41 Request C-REACTIVE PROTEIN (35678)Indication: SOB (shortness of breath) on exertion On: 76-Tlu-861300:39 Request SED RATE ERYTHROCYTE (31754)Indication: SOB (shortness of breath) on exertion On: :39 Request METABOLIC PANEL, COMPREHENSIVE (65527)Indication: SOB (shortness of breath) on exertion On: :39 Request CBC WITH MANUAL DIFF ([id number])Indication: SOB (shortness of breath) on exertion On: :39 Request D-Dimer (04044)Indication: SOB (shortness of breath) on exertion On: 68-Cny-004029:39 Request TSH ([id number])Indication: Hypothyroidism On: 59-Zab-668507:41 Request MICROALBUMIN: CREATININE RATIO (28706) AND ([id number])Indication: DIABETES MELLITUS WITHOUT MENTION OF COMPLICATION; TYPE II OR UNSPECIFIED TYPE, NOT STATED UNCONTROLLED On: 25-Wgs-051608:37 Request HEPATIC FUNCTION PANEL ([id number])Indication: Other and unspecified hyperlipidemia On: 39-Lrl-830856:37 Request LIPID PANEL ([id number])Indication: Other and unspecified hyperlipidemia On: 46-Zwv-116378:37 Request URINE MEHREEN CULTURE-SUNNY COL COUNT (47088)Indication: Urinary frequency On: 77-Pld-648563:05 Request URINE MEHREEN CULTURE-SUNNY COL COUNT ([id number])Indication: Urinary frequency On: 18-Puv-054623:05 Request URINE MEHREEN CULTURE-SUNNY COL COUNT ([id number])Indication: Urinary frequency On: 34-Noz-198702:05 Request URINE MEHREEN CULTURE-SUNNY COL COUNT ([id number])Indication: Urinary frequency On: :05 Request URINE MEHREEN CULTURE-SUNNY COL COUNT ([id number])Indication: Urinary frequency On: 35-Lhr-955053:05 Request URINE MEHREEN CULTURE-SUNNY COL COUNT ([id number])Indication: Urinary frequency On: :05 Request URINE MEHREEN CULTURE-SUNNY COL COUNT ([id number])Indication: Urinary frequency On: :05 Request MEHREEN CULTURE-OTHER ([id number])Indication: Family history of aneurysm On: 96-Bsp-191944:17 Request MICROALBUMIN URINE QUANT ([id number])Indication: Type 2 or unspecified type diabetes mellitus, uncontrolled On: 78-Qcj-53528:55 Request METABOLIC PANEL, COMPREHENSIVE (57045)Indication: Hypertension On: :54 Request TSH (08033)Indication: Hypothyroidism On: :54 Request LIPID PANEL ([id number])Indication: Other and unspecified hyperlipidemia On: :53 Request TSH ([id number])Indication: Hypothyroidism On: 83-Eow-249463:49 Request METABOLIC PANEL, COMPREHENSIVE ([id number])Indication: DIABETES MELLITUS WITHOUT MENTION OF COMPLICATION; TYPE II OR UNSPECIFIED TYPE, NOT STATED UNCONTROLLED On: 46-Kgw-575065:49 Request LIPID PANEL ([id number])Indication: DIABETES MELLITUS WITHOUT MENTION OF COMPLICATION; TYPE II OR UNSPECIFIED TYPE, NOT STATED UNCONTROLLED On: 71-Tjl-197534:49 Request CBC WITH MANUAL DIFF ([id number])Indication: Anemia On: :49 Request Rapid Strep Test, Office (83277)Indication: Pharyngitis, acute On: :27 Request Comments: neg HDL Cholesterol-Direct (66720)Indication: Low HDL (under 40) On: :41 Request Comments: DO IN 3 MO LIPID PANEL (41595)Indication: Other and unspecified hyperlipidemia On: 68-Bpv-983110:54 Request URINALYSIS W/O MICRO (59912)Indication: Hypertension On: :54 Request TSH ([id number])Indication: Hypothyroidism On: 52-Rnn-004288:54 Request METABOLIC PANEL, COMPREHENSIVE (29202)Indication: Hypertension On: 51-Lno-952922:54 Request CBC WITH MANUAL DIFF ([id number])Indication: Anemia On: :54 Request TSH ([id number])Indication: Hypothyroidism On: :59 Request URINALYSIS W/O MICRO ([id number])Indication: Type 2 or unspecified type diabetes mellitus, uncontrolled On: :59 Request CBC WITH MANUAL DIFF ([id number])Indication: Type 2 or unspecified type diabetes mellitus, uncontrolled On: :59 Request MICROALBUMIN: CREATININE RATIO (65964) AND ([id number])Indication: Type 2 or unspecified type diabetes mellitus, uncontrolled On: :58 Request METABOLIC PANEL, COMPREHENSIVE ([id number])Indication: Type 2 or unspecified type diabetes mellitus, uncontrolled On: :58 Request HgA1C , Office (45901)Indication: Abnormal glucose tolerance test On: 41-Qnr-410876:35 Request Blood Glucose , Office (65625)Indication: Abnormal glucose tolerance test On: 49-Fkp-093960:35 Request Planned Encounters Medical; 3 Month FU - On: 21-Sep-2018 13:30 [facility] Dafne Jaime CNP, CNP, Mary E Planned Procedures DEXA SCAN AXIAL SKELETON ([id number])By: On: 17-May-2018 Intent Dafne Jaime CNP, CNP, Mary E SCREENING DIGITAL TOMOSYNTHESIS OF On: 17-May-2018 Intent BREAST ([id number])By: Dafne Jaime CNP, CNP, Mary E CT - LDCT CHEST ( WITHOUT CONTRAST On: 02-May-2018 Intent )By: Dafne Jaime CNP, CNP, Mary E PFT - Before and After SpiroBy: On: 02-May-2018 Intent Dafne Jaime CNP, CNP, Mary E SIX MINUTE WALK TEST (10391)By: On: 20-Apr-2018 Intent Visit, Nurse SPIROMETRY PERFORMED ([id number])By: On: 20-Apr-2018 Intent Visit, Nurse SPIROMETRY PERFORMED ([id number])By: On: 20-Apr-2018 Intent Visit, Nurse INFUSION, NORMAL SALINE SOLUTION , On: 24-Jan-2018 Intent 1000 CC (Special Coverage Comments: lot:[id number]:IV right anticub dose:1000ml given by:carmen clemonsER, RPG DEVELOPER Instructions Apply. See MCM: 2049) (J7030)By: Dafne Jaime CNP, CNP, Mary E IV Needle placement (29986)By: On: 24-Jan-2018 Intent Dafne Jaime CNP, CNP, Mary E Radiology - Lumbar SpineBy: On: 23-Dec-[address] - Abdomen & Pelvis Stone On: 23-Dec-2017 Intent ProtocolBy: Yoselin Oconnell Comments: STAT R/O Kidney stones bilateral COMP EYE EXAMINATION, ESTAB PATIENT On: 09-Dec-2017 Intent (10701)By: Yoselin Oconnell Toradol Injection, 30 mg On: 12-Jul-2017 Intent (J1885)By: Dafne Jaime CNP, CNP, Mary E Toradol Injection, 30 mg On: 07-Apr-2017 Intent (J1885)By: Dafne Jaime CNP, CNP, Mary E Flu Vaccine (Quadrivalent) 13760Xw: On: 24-Mar-2017 Intent Dafne Jaime CNP, CNP, Mary E Toradol Injection, 30 mg On: 24-Mar-2017 Intent ([id number])By: Dafne Jaime CNP, CNP, Mary E Rocephin Injection, 2 Gram On: 18-Nov-2016 Intent ([id number])By: Dafne Jaime CNP, CNP, Mary E Aerosol Treatment ([id number])By: Addison On: 18-Nov-2016 Intent Dafne DOUGHERTY CNP, Mary E Solu -Medrol Injection, 125 mg On: 18-Nov-2016 Intent (J2930)By: Dafne Jaime CNP, CNP, Mary E MAMMOGRAM, SCREENING, BOTH BREAST On: 19-Aug-2016 Intent ([id number])By: CiesDafne rondon CNP, CNP, Mary E DEXA SCAN AXIAL SKELETON ([id number])By: On: 19-Aug-2016 Intent Dafne Jaime CNP, CNP, Mary E GROUP PULMONARY REHABILITATION WITH On: 11-Feb-2016 Intent EXERCISE ([id number])By: Dafne Jaime CNP, CNP, Mary E Six Minute Walk Assessment On: 17-Oct-2015 Intent ([id number])By: Visit, Nurse PFT - CompleteBy: Vanessa Chen MD On: 24-Sep-2015 Intent M Rocephin Injection, 2 Gram On: 21-Aug-2015 Intent (J0696)By: Dafne Jaime CNP Comments: IV 2 gramsright kuufaco10 guagetolerated welllot [id number] , Dafne SILVA CNP INFUSION, NORMAL SALINE SOLUTION , On: 21-Aug-2015 Intent 1000 CC (Special Coverage Instructions Apply. See MCM: 9) (J7030)By: Dafne Jaime CNP, CNP, Mary E Solu -Medrol Injection, 125 mg On: 21-Aug-2015 Intent (J2930)By: Dafne Jaime CNP Comments: lot [id number] 12/1824 [facility], Dafne SILVA CNP Radiology - ChestBy: Addison DOUGHERTY, On: 20-Aug-2015 Intent Dafne Durán CNP Comments: call results to MCiesa INFUSION, NORMAL SALINE SOLUTION , On: 20-Aug-2015 Intent 250 CC (J7050)By: Dafne Jaime CNP, CNP, Mary E Rocephin Injection, 2 Gram On: 20-Aug-2015 Intent (J0696)By: Dafne Jaime CNP Comments: IV 2 gramsright nepzkcs95 guagetolerated well, no redness notedlot [id number] 01/26/18asSHIRA CNP, Mary E Solu -Medrol Injection, 125 mg On: 20-Aug-2015 Intent (J2930)By: Dafne Jaime CNP Comments: SOLUMEDROLlot:[id number]:ite:lt glutroute:IMdose:125mgDEMICK, MA LADONNA, Dafne Mota Aerosol Treatment (96934)By: Deniserb On: 20-Aug-2015 Intent RPG DEVELOPER, Gloria Rocephin Injection, 2 Gram On: 19-Aug-2015 Intent (J0696)By: Dafne Jaime CNP Comments: [id number] hip, IM JM, ANNELIESE DOUGHERTY Radha Solu -Medrol Injection, 125 mg On: 19-Aug-2015 Intent (J2930)By: Dafne Jaime CNP Comments: [id number]-Y hip, IMDose-prefilled syringegiven by:DOUGLAS House signed LADONNA Dafne Mota Aerosol Treatment (76608)By: Harman On: 19-Aug-2015 Intent RPG DEVELOPER, Gloria Solu -Medrol Injection, 125 mg On: 07-Jun-2015 Intent (J2930)By: Giovani Hutchins MD Comments: [id number]-Y hip, IMDose-prefilled syringegiven by:ASHLY PERALES signed Rocephin Injection, 2 Gram On: 07-Jun-2015 Intent (J0696)By: Giovani Hutchins MD Comments: 2.9025667638e2 grams rocephin IV22G, 1 inchSite: existing lock flushed easily before and after and then d/c for the weekendTolerated: wellno redness or swelling, no s/s infiltrationML, RPG DEVELOPER INFUSION, NORMAL SALINE SOLUTION , On: 07-Jun-2015 Intent 250 CC (J7050)By: Giovani Hutchins MD INFUSION, NORMAL SALINE SOLUTION , On: 06-Jun-2015 Intent 250 CC (J7050)By: Giovani Hutchins MD Rocephin Injection, 2 Gram On: 06-Jun-2015 Intent (J0696)By: Giovani Hutchins MD Comments: [id number]. gramsIV Therapy xwjusfaay03O, 1 inchSite: R ac - lock flushed nicely and left in place for tomorrowTolerated: well x 1st attemptno redness or swelling, no s/s infiltrationML, RPG DEVELOPER Solu -Medrol Injection, 125 mg On: 06-Jun-2015 Intent (J2930)By: Giovani Hutchins MD Comments: [id number] hip, IMML, RPG DEVELOPER Radiology - ChestBy: Liset HUTCHINSON, On: 06-Jun-2015 Intent Giovani Comments: Acute execerbation of COPD?PNA Aerosol Treatment (66394)By: Liset On: 06-Jun-2015 Intent Giovani HUTCHINSON Overnight Pulse OX ([id number])By: Marquise On: 03-Jun-2015 Intent Jackie JHAVERI Six Minute Walk Assessment On: 29-May-2015 Intent ([id number])By: Jackie Christina DO Overnight Pulse OX (56604)By: Marquise On: 29-May-2015 Intent Jackie JHAVERI MAMMOGRAM, SCREENING, BOTH BREAST On: 03-May-2015 Intent ([id number])By: Jackie Christina DO Six Minute Walk Assessment On: 25-Feb-2015 Intent ([id number])By: Jackie Christina DO Overnight Pulse OX (30479)By: Marquise On: 25-Feb-2015 Jackie Mena DO BILATERAL MAMMOGRAMS ([id number])By: On: 26-Nov-2014 Intent Jackie Christina DO EKG (06664)By: Jackie Christina DO On: 26-Nov-2014 Intent Comments: ekg showed normal sinus rhythym, normal axis, no acute st/t wave changes twave inversion ant no change Solu -Medrol Injection, 125 mg On: 08-Aug-2014 Intent (J2930)By: Dafne Jaime CNP Comments: [id number], IMR hip, IMJM, ELECTRONIC CONTROLS REPAIRER SUPERVISOR SPORTS BOOK SERVERDafne Rocephin Injection, 2 Gram On: 08-Aug-2014 Intent (J0696)By: Dafne Jaime CNP Comments: 9.4817233885s7 grams IV R ac, x 1 attempt - tolerated well SHIRA Brito CNP, Mary E INFUSION, NORMAL SALINE SOLUTION , On: 08-Aug-2014 Intent 250 CC (J7050)By: Dafne Jaime CNP, CNP, Mary E IV Needle placement (31026)By: On: 07-Aug-2014 Intent Dafne Jaime CNP, CNP, Mary E Comments: 22G insyte initiated on 1st attempt w/o difficulty, no s/s redness, swelling infiltration, infusing on gravity pole at 38gtts/min, dsg dry intact, catheter removed intact- tolerated well- CTyler RPG DEVELOPER Solu -Medrol Injection, 125 mg On: 07-Aug-2014 Intent (J2930)By: Dafne Jaime CNP Comments: Lot:[id number]:12/2016Dose:125mgRoute:imSite:r armGiven By:Dafne Alejandro CNP INFUSION, NORMAL SALINE SOLUTION , On: 07-Aug-2014 Intent 250 CC (J7050)By: Dafne Jaime CNP, CNP, Mary E Rocephin Injection, 2 Gram On: 07-Aug-2014 Intent (J0696)By: Dafne Jaime CNP Comments: lot # [id number]- 02/26/2017site-R Median antecuberoute-IVdose- 2GCTyler RPG DEVELOPER Dafne DOUGHERTY Aerosol Treatment ([id number])By: Addison On: 07-Aug-2014 Intent Dafne DOUGHERTY CNP, Mary E Comments: ipitropium- tolerated well- CTyler RPG DEVELOPER Radiology - ChestBy: Addison DOUGHERTY, On: 06-Aug-2014 Intent Dafne Durán CNP Rocephin Injection, 2 Gram On: 06-Aug-2014 Intent (J0696)By: Dafne Jaime CNP, CNP, Mary E Solu -Medrol Injection, 125 mg On: 06-Aug-2014 Intent (J2930)By: Dafne Jaime CNP, CNP, Mary E Aerosol Treatment (04935)By: On: 31-Jul-2014 Intent Vanessa Chen MD Solu- Medrol Injection, 125mg On: 31-Jul-2014 Intent (J2930)By: Vanessa Chen MD Eprescribed prescriptions On: 31-Jul-2013 Intent (G8553)By: Ivanna Maddox Overnight Pulse OX ([id number])By: Fast On: 10-May-2013 Intent Jackie JHAVERI A Spirometry (55273)By: Marquise JHAVERI On: 02-May-2013 Intent Jackie Rondon Comments: good effort cure mild obst EKG (46967)By: Ivanna Maddox On: 02-May-2013 Intent Comments: ekg showed normal sinus rhythym, normal axis, no acute st/t wave changes no change in twave inversion ant Six Minute Walk Assessment On: 02-May-2013 Intent (51279)By: Jackie Christina DO Overnight Pulse OX (65694)By: Marquise On: 02-May-2013 Jackie Mena DO Eprescribed prescriptions On: 02-May-2013 Intent (G8553)By: Ivanna Maddox MAMMOGRAM, SCREENING, BOTH BREASTS On: 18-Apr-2013 Intent (42087)By: Jackie Christina DO Clinical Breast Examination On: 18-Apr-2013 Intent (G0101)By: Ivanna Maddox Solu- Medrol Injection, 125mg On: 26-Oct-2012 Intent (J2930)By: Jackie Christina DO Comments: Lot #[id number]-R hip, IMDose- prefilled syringegiven by:VANESA House signed Aerosol Treatment (58221)By: Marquise On: 26-Oct-2012 Jackie Mena DO Eprescribed prescriptions On: 26-Oct-2012 Intent (G8553)By: Ivanna Maddox Pulse Oximetry (13776)By: Tan On: 26-Oct-2012 Intent Ivanna Comments: 98% Spirometry (37186)By: Abi JHAVERI On: 06-Sep-2012 Rajesh Christian Comments: mild restrictive Aerosol Treatment (05604)By: Abi On: 06-Sep-2012 Anahi Mena DO Comments: done pt tolerated well. Albuterol 0.83%-- better a/e no wheeze Solu- Medrol Injection, 125mg On: 06-Sep-2012 Intent (J2930)By: Anahi Alex DO Comments: 2ml given im lt hip lot [id number] 04/11 Eprescribed prescriptions On: 06-Sep-2012 Intent (G8553)By: Anahi Alex DO Pulse Oximetry (95579)By: Abi On: 06-Sep-2012 Intent DO Anahi Eprescribed prescriptions On: 22-Aug-2012 Intent (G8553)By: Ivanna Maddox Overnight Pulse OX (73603)By: Marquise On: 03-May-2012 Jackie Mena DO Comments: Patient demonstrates understanding of how to operate macine. Alisha. Eprescribed prescriptions On: 27-Apr-2012 Intent (G8553)By: Ivanna Maddox Six Minute Walk Assessment On: 01-Apr-2012 Intent (78396)By: Virgen Real LPN PNEUM VAC ADLT/IMUMNOSPR, SBC/INTRM On: 18-Mar-2012 Intent (37341)By: Jackie Christina DO Comments: Lot:[id number]:08-10-13Dose:0.5 mLRoute: Site:[facility] By:FADIA signed PFT - CompleteBy: Jackie Christina DO On: 18-Mar-2012 Intent Six Minute Walk Assessment On: 18-Mar-2012 Intent ([id number])By: Jackie Christina DO Overnight Pulse OX (36874)By: Marquise On: 18-Mar-2012 Jackie eMna DO IMMUNIZ ADMNIN, 1 VAC, SNGL/COMBO On: 18-Mar-2012 Intent (18564)By: Jackie Christina DO DXA, BONE DENSITY, AXIAL SKELETON On: 18-Mar-2012 Intent (87174)By: Jackie Christina DO MAMMOGRAM, SCREENING, BOTH BREASTS On: 18-Mar-2012 Intent (17587)By: Jackie Christina DO CT - ChestBy: Jackie Christina DO On: 03-Feb-2012 Intent Solu- Medrol Injection, 125mg On: 30-Sep-2011 Intent (J2930)By: Jackie Christina DO Comments: Lot #[id number]-14/14Site-right [id number] by: Tiny Cox LPN Aerosol Treatment (46298)By: Marquise On: 30-Sep-2011 Intent Jackie JHAVERI Pulse Oximetry ([id number])By: Tan, On: 30-Sep-2011 Intent Ivanna Comments: 97% Solu -Medrol Injection, 125 mg On: 25-Sep-2011 Intent (J2930)By: Addison DOUGHERTYDafne Tggreg DOUGHERTY Dafne Mota Pulse Oximetry (28374)By: Addison On: 25-Sep-2011 Intent Dafne DOUGHERTY Tggreg DOUGHERTY Dafne Mota FLU VAC, SPLIT, >3 YEARS, INTRAMUSC On: 01-Jul-2011 Intent (78601)By: Ivanna Maddox Comments: work MAMMOGRAM, SCREENING, BOTH BREASTS On: 31-Mar-2011 Intent (57671)By: Jackie Christina DO Solu -Medrol Injection, 125 mg On: 31-Mar-2011 Intent (J2930)By: Jackie Christina DO Eprescribed prescriptions On: 31-Mar-2011 Intent (G8553)By: Jackie Christina DO Solu- Medrol Injection, 125mg On: 16-Dec-2010 Intent (J2930)By: Jackie Christina DO Comments: lot # [id number]- [id number]-VPPYGWanjwn-EUrapb- 2ML tolerated well CHenderson RPG DEVELOPER Aerosol Treatment (59072)By: Marquise On: 16-Dec-2010 Intent Jackie JHAVERI Comments: tolerated well Pulse Oximetry ([id number])By: Marquise JHAVERI On: 16-Dec-2010 Intent Jackie Rondon Comments: 96% on room air Eprescribed prescriptions On: 16-Dec-2010 Intent (G8553)By: Jackie Christina DO Pulse Oximetry (07552)By: Tan On: 15-Jul-2010 Intent Ivanna Comments: 96% TD Injection , IM (59506)By: Marquise On: 04-Jul-2010 Intent Jackie JHAVERI Comments: Lot #[id number]/12Site-R DltdDose 0.5mlgiven by: EKG (03509)By: Ivanna Maddox On: 04-Jul-2010 Intent Radiology - Lumbar SpineBy: Ciesa On: 12-May-2010 Intent Dafne DOUGHERTY TgDafne garza CNP MAMMOGRAM, SCREENING, BOTH BREASTS On: 19-Nov-2009 Intent (05705)By: Jackie Christina DO MAMMOGRAM, SCREENING, BOTH BREASTS On: 07-May-2009 Intent ([id number])By: Jackie Christina DO EKG (05842)By: Ivanna Maddox On: 07-May-2009 Intent Comments: ekg showed normal sinus rhythym, normal axis, no acute st/t wave changes Aerosol Treatment (61617)By: On: 22-Apr-2009 Intent Ivanna Aly Comments: post aerosol tx, pt states i can breath a whole lot better Radiology - Chest- PA and LatBy: On: 19-Apr-2009 Intent Anahi Alex DO Pulse Oximetry (04156)By: Addison On: 04-Apr-2009 Intent SPORTS BOOK SERVER, Radha Ciesa SPORTS BOOK SERVER, Radha Aerosol Treatment (81703)By: Marquise On: 21-Sep-[address] - ChestBy: Jackie Christina DO A On: 21-Sep-2008 Intent Comments: please also look at right upper quadrant- do stat and call wet read Pulse Oximetry (74079)By: Tan, On: 21-Sep-2008 Intent Ivanna Comments: 97% Radiology - Lumbar SpineBy: Marquise On: 14-Jun-2008 Intent Jackie JHAVERI A Comments: bone density suggest possible compression at l5 Ultrasound - AortaBy: Marquise JHAVERI, On: 24-Apr-2008 Intent Jackie Rondon Holter Moniter (36543)By: Marquise JHAVERI, On: 24-Apr-2008 Intent Jackie A EKG (34492)By: Jackie Christina DO On: 24-Apr-2008 Intent Comments: ekg showed normal sinus rhythym, normal axis, no acute st/t wave changes negative precordial t waves == no change DXA, BONE DENSITY, AXIAL SKELETON On: 24-Apr-2008 Intent (54657)By: Jackie Christina DO INFUSION, NORMAL SALINE SOLUTION , On: 09-Nov-2007 Intent 1000CC (Special Coverage Instructions Apply. See MCM: 2049) (J7050)By: Anahi Alex DO IV Needle placement (44342)By: On: 09-Nov-2007 Intent Anahi Alex DO Comments: PLACED 22 G R ANTECUBITAL - PT DENY WELLGOOD RETURN IV Infusion (88839)By: Abi JHAVERI, On: 09-Nov-2007 Intent Anahi Nuclear Stress Test/Stress On: 17-Oct-2007 Intent SPECT/AdenosineBy: Jackie Christina DO Nuclear Stress Test/Stress On: 18-Jul-2007 Intent SPECT/AdenosineBy: Jer Christina DOa Alcon EKG (14909)By: Jackie Christina DO On: 18-Jul-2007 Intent Comments: ekg showed normal sinus rhythym, normal axis, no acute st/t wave changes has neg twaves on precordium but are unchanged Pneumovax (06721)By: Marquise JHAVERI, On: 11-Apr-2007 Intent Jackie Rondon EKG (91963)By: Anahi Alex DO On: 19-Jan-2007 Intent Comments: NSR NONSPECIFIC CHANGES-- Pulse Oximetry (18118)By: Abi On: 24-Sep-2006 Intent Anahi JHAVERI Comments: 98% RA Aerosol Treatment (01838)By: Abi On: 24-Sep-2006 Anahi Mena DO Comments: AFTER AEROSOL STILL RHONCHOROUS AND WHEEZY THROUGHOUT BUT MORE AIR EXCHANGE AND PT FEEL IT HELPS Solu- Medrol Injection, 125mg On: 24-Sep-2006 Intent (J2930)By: Anahi Alex DO Rocephin Injection, 2 Gram On: 24-Sep-2006 Intent (J0696)By: Anahi Alex DO Comments: IM Solu- Medrol Injection, 125mg On: 23-Sep-2006 Intent (J2930)By: Anahi Alex DO Comments: Lot #: [id number] date: 04/05Amount given: 125 mg/2 mlRoute: IMSite given: Left glutealGiven by: Alcon Arrieta LPN Radiology - Chest- PA and LatBy: On: 23-Sep-2006 Intent Anahi Alex DO Aerosol Treatment (90029)By: Abi On: 23-Sep-2006 Anahi Mena DO Comments: after aerosol- diffuse wheeze and rhonchi lil softer-- more air exchange though Pulse Oximetry (64674)By: Armond RN, On: 23-Sep-2006 Intent Karen Comments: 98% PNEUM VAC ADLT/IMUMNOSPR, SBC/INTRM On: 08-Jul-2006 Intent (39927)By: MARKIE Hayden IMMUNIZ ADMNIN, 1 VAC, SNGL/COMBO On: 08-Jul-2006 Intent (66872)By: MARKIE Hayden Planned Medications INFUSION, NORMAL SALINE SOLUTION , 1000 CC Ordered: 24-Jan-2018 Pending Ciesa SPORTS BOOK SERVER, Radha Ciesa SPORTS BOOK SERVER, Radha INFUSION, NORMAL SALINE SOLUTION , 1000 CC Ordered: 21-Aug-2015 Pending Ciesa SPORTS BOOK SERVER, Radha Ciesa SPORTS BOOK SERVER, Radha INFUSION, NORMAL SALINE SOLUTION , 250 CC Ordered: 20-Aug-2015 Pending Ciesa SPORTS BOOK SERVER, Radha Ciesa SPORTS BOOK SERVER, Radha INFUSION, NORMAL SALINE SOLUTION , 250 CC Ordered: 07-Jun-2015 Pending Liset HUTCHINSON, Giovani INFUSION, NORMAL SALINE SOLUTION , 250 CC Ordered: 08-Aug-2014 Pending Ciesa SPORTS BOOK SERVER, Radha Ciesa SPORTS BOOK SERVER, Radha INFUSION, NORMAL SALINE SOLUTION , 250 CC Ordered: 07-Aug-2014 Pending Ciesa SPORTS BOOK SERVER, Radha Ciesa SPORTS BOOK SERVER, Radha INFUSION, NORMAL SALINE SOLUTION , 250 CC Ordered: 06-Jun-2015 Pending Giovani Hutchins MD INJECTION, CEFTRIAXONE SODIUM, PER 250 MG Ordered: 21-Aug-2015 Pending [employer], Radha Ciesa [employer], Radha INJECTION, CEFTRIAXONE SODIUM, PER 250 MG Ordered: 07-Jun-2015 Pending Giovani Hutchins MD INJECTION, CEFTRIAXONE SODIUM, PER 250 MG Ordered: 06-Jun-2015 Pending Giovani Hutchins MD INJECTION, CEFTRIAXONE SODIUM, PER 250 MG Ordered: 19-Aug-2015 Pending [employer], Radha C[employer]a [employer], Radha INJECTION, CEFTRIAXONE SODIUM, PER 250 MG Ordered: 08-Aug-2014 Pending [employer], Radha [employer], Radha INJECTION, CEFTRIAXONE SODIUM, PER 250 MG Ordered: 20-Aug-2015 Pending [employer], Radha [employer], Radha INJECTION, CEFTRIAXONE SODIUM, PER 250 MG Ordered: 07-Aug-2014 Pending [employer], Radha [employer], Radha INJECTION, CEFTRIAXONE SODIUM, PER 250 MG Ordered: 06-Aug-2014 Pending [employer], Radha [employer], Radha INJECTION, CEFTRIAXONE SODIUM, PER 250 MG Ordered: 18-Nov-2016 Pending [employer], Radha [employer], Radha INJECTION, KETOROLAC TROMETHAMINE, PER 15 MG Ordered: 24-Mar-2017 Pending [employer], Radha [employer], Radha INJECTION, KETOROLAC TROMETHAMINE, PER 15 MG Ordered: 07-Apr-2017 Pending [employer], Radha [employer]a [employer], Radha INJECTION, KETOROLAC TROMETHAMINE, PER 15 MG Ordered: 12-Jul-2017 Pending [employer], Radha [employer], Radha INJECTION, METHYLPREDNISOLONE SODIUM SUCCINATE, UP TO 125 MG Ordered: 18-Nov-2016 Pending [employer], Radha [employer], Radha INJECTION, METHYLPREDNISOLONE SODIUM SUCCINATE, UP TO 125 MG Ordered: 31-Mar-2011 Pending Fast DO, Jackie A INJECTION, METHYLPREDNISOLONE SODIUM SUCCINATE, UP TO 125 MG Ordered: 21-Aug-2015 Pending [employer], Radha [employer], Radha INJECTION, METHYLPREDNISOLONE SODIUM SUCCINATE, UP TO 125 MG Ordered: 25-Sep-2011 Pending [employer], Radha [employer], Radha INJECTION, METHYLPREDNISOLONE SODIUM SUCCINATE, UP TO 125 MG Ordered: 06-Aug-2014 Pending [employer], Radha C[employer], Radha INJECTION, METHYLPREDNISOLONE SODIUM SUCCINATE, UP TO 125 MG Ordered: 07-Jun-2015 Pending Giovani Hutchins MD INJECTION, METHYLPREDNISOLONE SODIUM SUCCINATE, UP TO 125 MG Ordered: 19-Aug-2015 Pending [employer], Dafne Mota [employer], Radha INJECTION, METHYLPREDNISOLONE SODIUM SUCCINATE, UP TO 125 MG Ordered: 31-Jul-2014 Pending Vanessa Chen MD INJECTION, METHYLPREDNISOLONE SODIUM SUCCINATE, UP TO 125 MG Ordered: 30-Sep-2011 Pending Fast DO, Jackie A INJECTION, METHYLPREDNISOLONE SODIUM SUCCINATE, UP TO 125 MG Ordered: 06-Jun-2015 Pending Giovani Hutchins MD INJECTION, METHYLPREDNISOLONE SODIUM SUCCINATE, UP TO 125 MG Ordered: 08-Aug-2014 Pending [employer], Radha [employer], Radha INJECTION, METHYLPREDNISOLONE SODIUM SUCCINATE, UP TO 125 MG Ordered: 06-Sep-2012 Pending Anahi Alex DO INJECTION, METHYLPREDNISOLONE SODIUM SUCCINATE, UP TO 125 MG Ordered: 07-Aug-2014 Pending Ciezraalcon DOUGHERTY Dafne Jaime CNP, Dafne Mota INJECTION, METHYLPREDNISOLONE SODIUM SUCCINATE, UP TO 125 MG Ordered: 26-Oct-2012 Pending Jackie Christina DO INJECTION, METHYLPREDNISOLONE SODIUM SUCCINATE, UP TO 125 MG Ordered: 20-Aug-2015 Pending Addison LADONNA, Dafne Jaime CNP, Dafne Mota INJECTION, METHYLPREDNISOLONE SODIUM SUCCINATE, UP TO 125 MG Ordered: 16-Dec-2010 Pending Jackie Christina DO Instructions Name Dates Details Nonsmoker : How to access health information online Indication: Nonsmoker Nonsmoker : How to access health information online - Detail Indication: Nonsmoker Nonsmoker : Patient Instructions Indication: Nonsmoker Nonsmoker : How to access health information online Indication: Nonsmoker Nonsmoker : How to access health information online - Detail Indication: Nonsmoker Nonsmoker : Patient Instructions Indication: Nonsmoker Nonsmoker : How to access health information online Indication: Nonsmoker Nonsmoker : How to access health information online - Detail Indication: Nonsmoker Nonsmoker : Patient Instructions Indication: Nonsmoker Nonsmoker : How to access health information online Indication: Nonsmoker Nonsmoker : How to access health information online - Detail Indication: Nonsmoker Nonsmoker : Patient Instructions Indication: Nonsmoker BMI 45.0-49.9, adult : How to access health information online Indication: BMI 45.0-49.9, adult BMI 45.0-49.9, adult : How to access health information online - Detail Indication: BMI 45.0-49.9, adult BMI 45.0-49.9, adult : Patient Instructions Indication: BMI 45.0-49.9, adult Nonsmoker : How to access health information online Indication: Nonsmoker Nonsmoker : How to access health information online - Detail Indication: Nonsmoker Nonsmoker : Patient Instructions Indication: Nonsmoker Hypertension : How to access health information online Indication: Hypertension Hypertension : How to access health information online - Detail Indication: Hypertension Nonsmoker : Patient Instructions Indication: Nonsmoker Nonsmoker : How to access health information online Indication: Nonsmoker Nonsmoker : How to access health information online - Detail Indication: Nonsmoker Nonsmoker : Patient Instructions Indication: Nonsmoker Nausea : How to access health information online Indication: Nausea Nausea : How to access health information online - Detail Indication: Nausea Hypothyroidism : Patient Instructions Indication: Hypothyroidism BMI 45.0-49.9, adult : How to access health information online Indication: BMI 45.0-49.9, adult BMI 45.0-49.9, adult : How to access health information online - Detail Indication: BMI 45.0-49.9, adult Hematuria : Patient Instructions Indication: Hematuria Current nonsmoker : How to access health information online Indication: Current nonsmoker Current nonsmoker : How to access health information online - Detail Indication: Current nonsmoker Urinary tract infection in female : Patient Instructions Indication: Urinary tract infection in female BMI 45.0-49.9, adult : How to access health information online Indication: BMI 45.0-49.9, adult BMI 45.0-49.9, adult : How to access health information online - Detail Indication: BMI 45.0-49.9, adult Redness of eye, left : Patient Instructions Indication: Redness of eye, left Diabetes mellitus type II, controlled, with no complications (Renamed from Controlled type 2 diabetes mellitus without complication) : How to access health information online Indication: Diabetes mellitus type II, controlled, with no complications (Renamed from Controlled type 2 diabetes mellitus without complication) Diabetes mellitus type II, controlled, with no complications (Renamed from Controlled type 2 diabetes mellitus without complication) : How to access health information online - Detail Indication: Diabetes mellitus type II, controlled, with no complications (Renamed from Controlled type 2 diabetes mellitus without complication) Diabetes mellitus type II, controlled, with no complications (Renamed from Controlled type 2 diabetes mellitus without complication) : Patient Instructions Indication: Diabetes mellitus type II, controlled, with no complications (Renamed from Controlled type 2 diabetes mellitus without complication) Diabetes mellitus type II, controlled, with no complications (Renamed from Controlled type 2 diabetes mellitus without complication) : How to access health information online Indication: Diabetes mellitus type II, controlled, with no complications (Renamed from Controlled type 2 diabetes mellitus without complication) Diabetes mellitus type II, controlled, with no complications (Renamed from Controlled type 2 diabetes mellitus without complication) : How to access health information online - Detail Indication: Diabetes mellitus type II, controlled, with no complications (Renamed from Controlled type 2 diabetes mellitus without complication) Diabetes mellitus type II, controlled, with no complications (Renamed from Controlled type 2 diabetes mellitus without complication) : Patient Instructions Indication: Diabetes mellitus type II, controlled, with no complications (Renamed from Controlled type 2 diabetes mellitus without complication) Fatigue : How to access health information online Indication: Fatigue Fatigue : How to access health information online - Detail Indication: Fatigue Fatigue : Patient Instructions Indication: Fatigue Type 2 or unspecified type diabetes mellitus, uncontrolled : How to access health information online Indication: Type 2 or unspecified type diabetes mellitus, uncontrolled Type 2 or unspecified type diabetes mellitus, uncontrolled : How to access health information online - Detail Indication: Type 2 or unspecified type diabetes mellitus, uncontrolled Type 2 or unspecified type diabetes mellitus, uncontrolled : Patient Instructions Indication: Type 2 or unspecified type diabetes mellitus, uncontrolled Current nonsmoker : How to access health information online Indication: Current nonsmoker Current nonsmoker : How to access health information online - Detail Indication: Current nonsmoker Current nonsmoker : Patient Instructions Indication: Current nonsmoker Cough : How to access health information online Indication: Cough Cough : How to access health information online - Detail Indication: Cough Cough : Patient Instructions Indication: Cough Type 2 or unspecified type diabetes mellitus, uncontrolled : How to access health information online Indication: Type 2 or unspecified type diabetes mellitus, uncontrolled Type 2 or unspecified type diabetes mellitus, uncontrolled : How to access health information online - Detail Indication: Type 2 or unspecified type diabetes mellitus, uncontrolled Type 2 or unspecified type diabetes mellitus, uncontrolled : Patient Instructions Indication: Type 2 or unspecified type diabetes mellitus, uncontrolled Benign essential hypertension : DISCONTINUED - BLD CNT, COMPL CBC W/AUTO DIFF WBC (00966) Indication: Benign essential hypertension Other and unspecified hyperlipidemia : DISCONTINUED - LIPID PANEL (55911) Indication: Other and unspecified hyperlipidemia Hypothyroidism : DISCONTINUED - TSH (36636) Indication: Hypothyroidism Other and unspecified hyperlipidemia : DISCONTINUED - LIPID PANEL (39732) Indication: Other and unspecified hyperlipidemia DIABETES MELLITUS WITHOUT MENTION OF COMPLICATION; TYPE II OR UNSPECIFIED TYPE, NOT STATED UNCONTROLLED : DISCONTINUED - MICROALBUMIN: CREATININE RATIO ([id number]) AND ([id number]) Indication: DIABETES MELLITUS WITHOUT MENTION OF COMPLICATION; TYPE II OR UNSPECIFIED TYPE, NOT STATED UNCONTROLLED DIABETES MELLITUS WITHOUT MENTION OF COMPLICATION; TYPE II OR UNSPECIFIED TYPE, NOT STATED UNCONTROLLED : DISCONTINUED - METABOLIC PANEL, COMPREHENSIVE ([id number]) Indication: DIABETES MELLITUS WITHOUT MENTION OF COMPLICATION; TYPE II OR UNSPECIFIED TYPE, NOT STATED UNCONTROLLED DIABETES MELLITUS WITHOUT MENTION OF COMPLICATION; TYPE II OR UNSPECIFIED TYPE, NOT STATED UNCONTROLLED : DISCONTINUED - CBC WITH MANUAL DIFF ([id number]) Indication: DIABETES MELLITUS WITHOUT MENTION OF COMPLICATION; TYPE II OR UNSPECIFIED TYPE, NOT STATED UNCONTROLLED DIABETES MELLITUS WITHOUT MENTION OF COMPLICATION; TYPE II OR UNSPECIFIED TYPE, NOT STATED UNCONTROLLED : DISCONTINUED - METABOLIC PANEL, COMPREHENSIVE ([id number]) Indication: DIABETES MELLITUS WITHOUT MENTION OF COMPLICATION; TYPE II OR UNSPECIFIED TYPE, NOT STATED UNCONTROLLED Type 2 or unspecified type diabetes mellitus, uncontrolled : How to access health information online Indication: Type 2 or unspecified type diabetes mellitus, uncontrolled Type 2 or unspecified type diabetes mellitus, uncontrolled : How to access health information online - Detail Indication: Type 2 or unspecified type diabetes mellitus, uncontrolled Type 2 or unspecified type diabetes mellitus, uncontrolled : Patient Instructions Indication: Type 2 or unspecified type diabetes mellitus, uncontrolled Type 2 or unspecified type diabetes mellitus, uncontrolled : How to access health information online Indication: Type 2 or unspecified type diabetes mellitus, uncontrolled Type 2 or unspecified type diabetes mellitus, uncontrolled : How to access health information online - Detail Indication: Type 2 or unspecified type diabetes mellitus, uncontrolled Type 2 or unspecified type diabetes mellitus, uncontrolled : Patient Instructions Indication: Type 2 or unspecified type diabetes mellitus, uncontrolled Acute exacerbation of COPD with asthma : How to access health information online Indication: Acute exacerbation of COPD with asthma Acute exacerbation of COPD with asthma : How to access health information online - Detail Indication: Acute exacerbation of COPD with asthma Acute exacerbation of COPD with asthma : Patient Instructions Indication: Acute exacerbation of COPD with asthma Acute exacerbation of COPD with asthma : How to access health information online Indication: Acute exacerbation of COPD with asthma Acute exacerbation of COPD with asthma : How to access health information online - Detail Indication: Acute exacerbation of COPD with asthma Acute exacerbation of COPD with asthma : Patient Instructions Indication: Acute exacerbation of COPD with asthma Cough : Patient Instructions Indication: Cough Acute exacerbation of COPD with asthma : How to access health information online Indication: Acute exacerbation of COPD with asthma Acute exacerbation of COPD with asthma : How to access health information online - Detail Indication: Acute exacerbation of COPD with asthma Acute exacerbation of COPD with asthma : Patient Instructions Indication: Acute exacerbation of COPD with asthma Acute exacerbation of COPD with asthma : How to access health information online Indication: Acute exacerbation of COPD with asthma Acute exacerbation of COPD with asthma : How to access health information online - Detail Indication: Acute exacerbation of COPD with asthma Acute exacerbation of COPD with asthma : Patient Instructions Indication: Acute exacerbation of COPD with asthma DIABETES MELLITUS WITHOUT MENTION OF COMPLICATION; TYPE II OR UNSPECIFIED TYPE, NOT STATED UNCONTROLLED : How to access health information online Indication: DIABETES MELLITUS WITHOUT MENTION OF COMPLICATION; TYPE II OR UNSPECIFIED TYPE, NOT STATED UNCONTROLLED DIABETES MELLITUS WITHOUT MENTION OF COMPLICATION; TYPE II OR UNSPECIFIED TYPE, NOT STATED UNCONTROLLED : How to access health information online - Detail Indication: DIABETES MELLITUS WITHOUT MENTION OF COMPLICATION; TYPE II OR UNSPECIFIED TYPE, NOT STATED UNCONTROLLED DIABETES MELLITUS WITHOUT MENTION OF COMPLICATION; TYPE II OR UNSPECIFIED TYPE, NOT STATED UNCONTROLLED : Patient Instructions Indication: DIABETES MELLITUS WITHOUT MENTION OF COMPLICATION; TYPE II OR UNSPECIFIED TYPE, NOT STATED UNCONTROLLED Encounter for gynecological examination without abnormal finding : How to access health information online Indication: Encounter for gynecological examination without abnormal finding Encounter for gynecological examination without abnormal finding : How to access health information online - Detail Indication: Encounter for gynecological examination without abnormal finding Encounter for gynecological examination without abnormal finding : Patient Instructions Indication: Encounter for gynecological examination without abnormal finding Type 2 or unspecified type diabetes mellitus, uncontrolled : How to access health information online Indication: Type 2 or unspecified type diabetes mellitus, uncontrolled Type 2 or unspecified type diabetes mellitus, uncontrolled : How to access health information online - Detail Indication: Type 2 or unspecified type diabetes mellitus, uncontrolled Type 2 or unspecified type diabetes mellitus, uncontrolled : Patient Instructions Indication: Type 2 or unspecified type diabetes mellitus, uncontrolled Type 2 or unspecified type diabetes mellitus, uncontrolled : Patient Instructions Indication: Type 2 or unspecified type diabetes mellitus, uncontrolled Unspecified asthma with (acute) exacerbation : How to access health information online Indication: Unspecified asthma with (acute) exacerbation Unspecified asthma with (acute) exacerbation : How to access health information online - Detail Indication: Unspecified asthma with (acute) exacerbation Unspecified asthma with (acute) exacerbation : Patient Instructions Indication: Unspecified asthma with (acute) exacerbation Staph infection : Patient Instructions Indication: Staph infection Type 2 or unspecified type diabetes mellitus, uncontrolled : Patient Instructions Indication: Type 2 or unspecified type diabetes mellitus, uncontrolled Type 2 or unspecified type diabetes mellitus, uncontrolled : DISCONTINUED - LIPID PANEL (76237) Indication: Type 2 or unspecified type diabetes mellitus, uncontrolled Type 2 or unspecified type diabetes mellitus, uncontrolled : Patient Instructions Indication: Type 2 or unspecified type diabetes mellitus, uncontrolled Allergic rhinitis : Patient Instructions Indication: Allergic rhinitis Well woman exam with routine gynecological exam : Patient Instructions Indication: Well woman exam with routine gynecological exam Wheezing : Patient Instructions Indication: Wheezing Acute exacerbation of COPD with asthma : Patient Instructions Indication: Acute exacerbation of COPD with asthma Hypertension : Patient Instructions Indication: Hypertension Chronic obstructive pulmonary disease, unspecified COPD type : Patient Instructions Indication: Chronic obstructive pulmonary disease, unspecified COPD type Well woman exam with routine gynecological exam : Patient Instructions Indication: Well woman exam with routine gynecological exam Meralgia paresthetica : Patient Instructions Indication: Meralgia paresthetica Encounters Annotation/Addendum On: 19-Jul-2018 12:32 [facility] End: 19-Jul-2018 12:33 Annotation/Addendum On: 08-Jul-2018 12:49 Encounter Diagnosis: Chronic obstructive pulmonary disease, unspecified COPD type End: 08-Jul-2018 12:51 [facility] Office Visit On: 22-Jun-2018 15:21 Encounter Reason: Follow up tests - Diagnostic tests include other (labs)., [ADDITIONAL REASON] Follow up for chronic medical issues - The patient feels well with no complaints End: 22-Jun-2018 16:03 , has decreased energy level and is sleeping well. Patient has been compliant with instructions. Current medication use: no side effects and compliant with dosing regimen. Patient sleeps 6 (broken) hour s per night. Nutrition: inappropriate diet and supplemental vitamins. The medical issues the patient is following up for include All identified problems below, blood sugar issues, depression, gastric re flux, high blood pressure, high cholesterol and hypothyroid. , [ADDITIONAL REASON] Hypertension - Note for Hypertension : still with BP at home diastolic 72-85 is better Systolic 157-187 Encounter Diagnosis: BMI 45.0-49.9, adult, Nonsmoker, Depression, Colon cancer screening (Renamed from Encounter for screening for malignant neoplasm of colon), Hypercalcemia, Chronic obstructive pulmonary disease, unspecified COPD type, Hypertension [facility] Office Visit On: 17-May-2018 14:32 Encounter Reason: Annual Medicare Exam - The patient had reviewed and updated the family history, medication/s, past medical history and social history. Yes the patient did have a mini mental status exam done today. The End: 17-May-2018 15:20 activities of daily living the patient needs help with are none. The patient has had urinary incontinence and driven in past 6 months, but the patient has not had fecal incontinence, missed or ran out o f medications to soon, fallen in the past 6 months, gotten lost, has a medalert necklace or bracelet, put area rugs through house or put handrails in bathroom. The patient has completed the following pr eventative measures: mammography (a few years ago and bone density). The patient does not have durable power of trial attorney or living will. The patient has noticed dissatisfaction with life, dropping activ ities and interests, feeling emptiness in life, getting bored, poor spirits most of time, feeling sad most of time, feeling helpless, staying at home rather than doing something new or going out, having problems with memory than others and lack of energy. Other providers contributing to the patient's care are purchasing analyst (dr. granado) and other: ([facility]- pt [facility] jun 01 2018). N ote for Annual Medicare Exam: Here for annual medicare examFeeling depressedEncounter Diagnosis: Nonsmoker, BMI 45.0-49.9, adult, Encounter for annual general medical examination with abnormal findings in adult, Hypercalcemia, Encounter for screening mammogram for breast cancer, Postmenopausal (Renamed from Postmenopausal status), Colon cancer screening (Renamed from Encounter for screening for malignant neoplasm of colon), Depression [facility] Office Visit On: 02-May-2018 11:33 Encounter Reason: Follow up for chronic medical issues - The patient feels well with no complaints, has decreased energy level and is sleeping well. Patient has been compliant with instructions. Current medication use: n End: 02-May-2018 12:47 o side effects and compliant with dosing regimen. Patient sleeps 6 hours per night. Nutrition: inappropriate diet and supplemental vitamins. The medical issues the patient is following up for include Al l identified problems below, blood sugar issues, depression, gastric reflux, high blood pressure, high cholesterol and hypothyroid. Note for Follow up for chronic medical issues: Has been using glucerna shakes for a meal.BP running 156/85 Encounter Diagnosis: Nonsmoker, BMI 45.0-49.9, adult, Diabetes mellitus type II, controlled, with no complications (Renamed from Controlled type 2 diabetes mellitus without complication), Chronic obstructive pulmonary disease, unspecified COPD type, Back pain [facility] Office Visit On: 20-Apr-2018 12:43 Encounter Reason: Nurse procedure visitEncounter Diagnosis: BMI 45.0-49.9, adult, Nonsmoker, Chronic obstructive pulmonary disease, unspecified COPD type End: 22-Apr-2018 14:45 [facility] Office Visit On: 09-Mar-2018 13:48 Encounter Reason: Follow up Meds - The patient feels well with minor complaints (tired and my allergies are real bad). Patient has been compliant with instructions. Current medication use: no side effects, compliant with End: 09-Mar-2018 15:09 dosing regimen and not considered effective by patient. Patient sleeps 4 (broken) hours per night.Encounter Diagnosis: Nonsmoker, BMI 45.0-49.9, adult, Hypertension [facility] Annotation/Addendum On: 02-Feb-2018 14:32 [facility] End: 02-Feb-2018 14:33 Office Visit On: 02-Feb-2018 12:36 Encounter Reason: Follow up acute care visit - The patient feeling better since last seen. Patient has been compliant with instructions. Current medication use: compliant with dosing regimen. Patient sleeps 7 hours per n End: 02-Feb-2018 14:30 ight. Impact of disease: emotional impact-mild. Nutrition: balanced diet and supplemental vitamins. The medical issues the patient is following up for include blood sugar issues and high blood pressure. Note for Follow up acute care visit: Following up from Jan 26 BP range at home 146/79 to 1175/90 has decreased victoza too without signs of hypoglycemia. Takes irbesartan in am and hctz and losartan at supper., [ADDITIONAL REASON] Follow up tests - Diagnostic tests include other. Date: (01/26/18). Encounter Diagnosis: Nonsmoker, BMI 45.0-49.9, adult, Hypertension, Vitamin D deficiency, unspecified [facility] Office Visit On: 26-Jan-2018 10:55 Encounter Reason: Follow up ER - Reason for hospitalization note: (nausea, HTN). Note for Follow up ER: took all 3 BP meds and it did not work, ongoing problem with BP and and Blood sugar. Taking boost.Took 3 BP meds t End: 26-Jan-2018 14:24 mamie at 10:52 BP 183/88 pulse 69 sugar 113Then in 2 hrs BP 181/101 pulse 71Encounter Diagnosis: BMI 45.0-49.9, adult, Nonsmoker, Hypertension, Adrenal adenoma, right, Hypercalcemia [facility] Office Visit On: 24-Jan-2018 14:39 Encounter Reason: Follow up ER - Reason for hospitalization note: (nausea, HTN). Note for Follow up ER: took all 3 BP meds and it did not workEncounter Diagnosis: Hypertension, BMI 45.0-49.9, adult, Nonsmoker, Hypercalcemia, Hypoglycemia, Nausea End: 24-Jan-2018 17:02 [facility] Office Visit On: 19-Jan-2018 13:31 Encounter Reason: Follow up acute care visit - Patient has been compliant with instructions. Current medication use: compliant with dosing regimen. Patient sleeps 7 hours per night. Impact of disease: emotional impact-mi End: 19-Jan-2018 14:30 ld. Nutrition: balanced diet and supplemental vitamins. The medical issues the patient is following up for include blood sugar issues and high blood pressure.Encounter Diagnosis: BMI 45.0-49.9, adult, Nonsmoker, Diabetes mellitus type II, controlled, with no complications (Renamed from Controlled type 2 diabetes mellitus without complication), Hypertension [facility] Office Visit On: 31-Dec-2017 13:06 Encounter Reason: Follow up ER - Reason for hospitalization note: (nausea). Current medication use: no side effects. The patient feels well with minor complaints, has decreased energy level and is sleeping well. Patient End: 31-Dec-2017 14:36 sleeps 5 hours per night. Note for Follow up ER: went to ER with 90 yo mother and both with viral illness. Was given IV fluid sent home. Mother was admitted then to F, [ADDITIONAL REASON] Diabetes Type II, Follow Up - Note for Follow up for diabetes type II: Has had uncontrolled BS and not able to afford victoza and Byetta. , [ADDITIONAL REASON] Hypertension - Note for Hypertension: was on atenolol and now off Encounter Diagnosis: BMI 45.0-49.9, adult, Nonsmoker, Nausea, Diabetes mellitus type II, controlled, with no complications (Renamed from Controlled type 2 diabetes mellitus without complication), Hypercholesteremia, Elevated WBC count, Hypertension, Depression, Hypothyroidism [facility] Annotation/Addendum On: 23-Dec-2017 14:48 Encounter Diagnosis: Adrenal adenoma, right, Back pain End: 23-Dec-2017 14:55 [facility] Office Visit On: 23-Dec-2017 11:01 Encounter Reason: Urinary Frequency - Management changes made at the last visit include adding medication. Symptoms include urinary frequency, urinary urgency, chills, low back pain and flank pain. The symptoms occur con End: 23-Dec-2017 11:46 stantly. The patient describes this as unchanged. Note for Urinary frequency: Still having urine frequency, urgency and now back pain on both sides with nausea. Lower abd pain. No blood in urine, vagi nal discharge or itching, fever or chills. Used her mothers Lidocaine back patch and that did not help.Encounter Diagnosis: Urinary frequency, BMI 45.0-49.9, adult, Current nonsmoker, Hematuria, Pain, flank, bilateral [facility] Office Visit On: 13-Dec-2017 14:22 Encounter Reason: Urinary Frequency - Symptoms include urinary frequency, urinary urgency and chills. Onset was 1 day(s) ago. Note for Urinary frequency: Symptoms started last night with urine frequency and urgency, ch End: 13-Dec-2017 15:21 ills with urination, strong odor. No blood in urine, vaginal discharge, itching, fever, abd pain or pressure, back pain, CP, SOB. Has tried drinking cranberry juice.Encounter Diagnosis: Urinary frequency, Current nonsmoker, BMI 45.0-49.9, adult, Urinary tract infection in female [facility] Lab Order On: 10-Dec-2017 7:21 Encounter Diagnosis: Hypercholesteremia End: 10-Dec-2017 7:24 [facility] Office Visit On: 09-Dec-2017 10:45 Encounter Reason: Eye Redness - Symptoms include eye redness, eye discharge and eye itching. Symptoms are located in the left eye. Onset was 4 week(s) ago. Note for Eye redness: Symptoms started about 2 weeks ago with End: 09-Dec-2017 11:32 red, itchy eye, feels like there is sand in it, crusted shut in the morning, left eyelid is red and swollen, blurry vision. Friend and friends both had pink eye right before my eye started getti ng red. Went to urgent care-was given gentamicin-not working. No pain, fever, chills, loss of vision, headache.Encounter Diagnosis: BMI 45.0-49.9, adult, Current nonsmoker, Redness of eye, left, Acute conjunctivitis [facility] Office Visit On: 13-Oct-2017 10:19 Encounter Reason: Follow up for chronic medical issues - The patient is sleeping poorly (Sees Dr. Granado). Patient has been compliant with instructions. Current medication use: no side effects and compliant with dosing End: 13-Oct-2017 11:42 regimen. Patient sleeps 6 (Very broken--cpap) hours per night. Nutrition: inappropriate diet and supplemental vitamins. The medical issues the patient is following up for include All identified problems below, blood sugar issues, depression, gastric reflux, high blood pressure, high cholesterol and hypothyroid.Encounter Diagnosis: Diabetes mellitus type II, controlled, with no complications (Renamed from Controlled type 2 diabetes mellitus without complication), Current nonsmoker, BMI 45.0-49.9, adult, Benign essential hypertension (401.1), Hypercholesteremia, Anxiety (300.00), Hypothyroidism, Cough [facility] Annotation/Addendum On: 13-Jul-2017 6:24 [facility] End: 13-Jul-2017 6:35 Office Visit On: 12-Jul-2017 14:06 Encounter Reason: Follow up for chronic medical issues - The patient feels well with minor complaints (spots on skin, right hip pain) and is sleeping poorly (Sees Dr. Granado). Patient has been compliant with instruction End: 12-Jul-2017 15:09 s. Current medication use: no side effects and compliant with dosing regimen. Patient sleeps 6 (Very broken--cpap) hours per night. Nutrition: inappropriate diet and supplemental vitamins. The medical i ssues the patient is following up for include All identified problems below, blood sugar issues, depression, gastric reflux, high blood pressure, high cholesterol and hypothyroid., [ADDITIONAL REASON] Hip Problem - Note for Hip problem: rt hip down rt thigh but not as bad as before , [ADDITIONAL REASON] Skin Lesions - Note for Skin lesions: new skin spots on abdomen and breast Encounter Diagnosis: Diabetes mellitus type II, controlled, with no complications (Renamed from Controlled type 2 diabetes mellitus without complication), Current nonsmoker, Hip pain, right, Folliculitis, Hypothyroidism, Benign essential hypertension (401.1) [facility] Office Visit On: 07-Apr-2017 12:45 Encounter Reason: Follow up tests - Diagnostic tests include other (labs)., [ADDITIONAL REASON] Sciatica - Note for Sciatica: Rt sided sciatica pain improved greatly with tordol. Encounter Diagnosis: BMI 45.0-49.9, adult, Fatigue, End: 07-Apr-2017 14:02 Current nonsmoker, Diabetes mellitus type II, controlled, with no complications (Renamed from Controlled type 2 diabetes mellitus without complication), Vitamin D deficiency, unspecified, Sciatica, Sleep apnea [facility] Office Visit On: 24-Mar-2017 13:01 Encounter Reason: Follow up for chronic medical issues - The patient feels well with minor complaints and is sleeping poorly (Sees Dr. Granado). Patient has been compliant with instructions. Current medication use: no si End: 24-Mar-2017 15:19 de effects and compliant with dosing regimen. Patient sleeps 6 (Very broken) hours per night. Nutrition: inappropriate diet and supplemental vitamins. The medical issues the patient is following up for include All identified problems below, blood sugar issues, depression, gastric reflux, high blood pressure, high cholesterol and hypothyroid. fasting blood sugars :. Note for Follow up for chronic medi edgardo issues: Has had sleep study with info of stop breathing. To get Cpap, [ADDITIONAL REASON] Sciatica - Note for Sciatica: rt sided burning rt leg down to lower calf Encounter Diagnosis: Vitamin D deficiency, unspecified, Type 2 or unspecified type diabetes mellitus, uncontrolled, BMI 40.0-44.9, adult, Sleep apnea, Sciatica, Hypothyroidism, Benign essential hypertension (401.1), Need for prophylactic vaccination and inoculation against influenza [facility] Lab Order On: 24-Nov-2016 16:56 Encounter Diagnosis: Hypercalcemia End: 24-Nov-2016 17:04 [facility] Office Visit On: 19-Nov-2016 11:00 Encounter Reason: Follow up acute care visit - The patient feels the same. Patient has been compliant with instructions.Encounter Diagnosis: BMI 40.0-44.9, adult, Current nonsmoker, Acute exacerbation of COPD with asthma, Cough, End: 19-Nov-2016 14:14 Elevated blood pressure reading [facility] Office Visit On: 18-Nov-2016 13:31 Encounter Reason: Follow up for chronic medical issues - The patient feels well with minor complaints (cough, sinus, fatigue). Patient has been compliant with instructions. Current medication use: no side effects and com End: 18-Nov-2016 14:18 pliant with dosing regimen. Patient sleeps 6 (Very broken) hours per night. Nutrition: inappropriate diet and supplemental vitamins. The medical issues the patient is following up for include All identi fied problems below, blood sugar issues, depression, gastric reflux, high blood pressure, high cholesterol and hypothyroid. fasting blood sugars :. Note for Follow up for chronic medical issues: bp up hasnt taken her bp meds until just few min ago- thinks tolerating victoza no sx in day- is takingat nightrange 88-150 fasting BS , [ADDITIONAL REASON] Cough - The cough is characterized as dry. The cough occurs all the time. The s ymptoms have been associated with headache, runny nose and wheezing, while the symptoms have not been associated with fever. Note for Cough : Everyone in household sick now I am sick , [ADDITIONAL REASON] Fatigue - Note for Fatigue: chronic fatigue Does not want to get out of bed , [ADDITIONAL REASON] Nausea - Note for Nausea: Worse nausea in am Encounter Diagnosis: BMI 40.0-44.9, adult, Benign essential hypertension (401.1), Nonsmoker, Cough, Type 2 or unspecified type diabetes mellitus, uncontrolled, COPD with acute exacerbation (Renamed from Acute exacerbation of chronic obstructive airways disease), Fatigue [facility] Lab Order On: 21-Aug-2016 13:27 Encounter Diagnosis: Vitamin D deficiency, unspecified, Type 2 or unspecified type diabetes mellitus, uncontrolled End: 21-Aug-2016 13:28 [facility] Annotation/Addendum On: 21-Aug-2016 12:26 Encounter Diagnosis: Vitamin D deficiency, unspecified End: 21-Aug-2016 12:30 [facility] Office Visit On: 19-Aug-2016 13:35 Encounter Reason: Follow up for chronic medical issues - The patient feels well with minor complaints (depression, sweating). Patient has been compliant with instructions. Current medication use: no side effects and comp End: 19-Aug-2016 14:05 liant with dosing regimen. Patient sleeps 6 hours per night. Nutrition: inappropriate diet and supplemental vitamins. The medical issues the patient is following up for include All identified problems b elow, blood sugar issues, depression, gastric reflux, high blood pressure, high cholesterol and hypothyroid. fasting blood sugars : (113-140). Note for Follow up for chronic medical issues: bp up hasn t taken her bp meds until just few min ago- thinks tolerating victoza no sx in day- is takingat nightrange 88-150 fasting BS Encounter Diagnosis: BMI 40.0-44.9, adult, Nonsmoker, Hypothyroidism, Type 2 or unspecified type diabetes mellitus, uncontrolled, Depression, Benign essential hypertension (401.1), Postmenopausal (Renamed from Postmenopausal status), Encounter for screening mammogram for breast cancer [facility] Office Visit On: 02-Jun-2016 13:22 [facility] End: 02-Jun-2016 13:24 Office Visit On: 13-May-2016 12:45 Encounter Reason: Follow up for chronic medical issues - The patient feels well with minor complaints (tiredness). Patient has been compliant with instructions. Current medication use: no side effects and compliant with End: 13-May-2016 14:24 dosing regimen. Patient sleeps 6 hours per night. Nutrition: inappropriate diet and supplemental vitamins. The medical issues the patient is following up for include All identified problems below, blood sugar issues, depression, gastric reflux, high blood pressure, high cholesterol and hypothyroid. fasting blood sugars : (130-150). Note for Follow up for chronic medical issues: bp up hasnt taken her bp meds until just few min ago- thinks tolerating victoza no sx in day- is takingat nightrange 88-150 fasting BS Encounter Diagnosis: Benign essential hypertension (401.1), Hypercholesteremia, Type 2 or unspecified type diabetes mellitus, uncontrolled, Anxiety (300.00), Vitamin D deficiency, unspecified, Current nonsmoker, BMI 40.0-44.9, adult, DIABETES MELLITUS WITHOUT MENTION OF COMPLICATION; TYPE II OR UNSPECIFIED TYPE, NOT STATED UNCONTROLLED (250.00), Other and unspecified hyperlipidemia (272.4), Hypothyroidism [facility] Phone Encounter On: 17-Feb-2016 13:03 Encounter Diagnosis: Acute exacerbation of COPD with asthma End: 17-Feb-2016 13:11 [facility] Office Visit On: 11-Feb-2016 13:08 Encounter Reason: Follow up acute care visit - The patient feeling better since last seen. Patient has been compliant with instructions.Encounter Diagnosis: Type 2 or unspecified type diabetes mellitus, uncontrolled, End: 11-Feb-2016 16:15 Chronic obstructive pulmonary disease, unspecified COPD type, Benign essential hypertension (401.1), Hypothyroidism [facility] Annotation/Addendum On: 27-Jan-2016 15:04 Encounter Diagnosis: Unspecified Diagnosis End: 27-Jan-2016 15:20 [facility] Office Visit On: 24-Jan-2016 14:32 Encounter Reason: Follow up for chronic medical issues - Patient has been compliant with instructions. Current medication use: no side effects and compliant with dosing regimen. Nutrition: inappropriate diet and suppleme End: 24-Jan-2016 15:22 ntal vitamins. The medical issues the patient is following up for include All identified problems below, blood sugar issues, depression, gastric reflux, high blood pressure, high cholesterol and hypothy roid. Note for Follow up for chronic medical issues: bp up hasnt taken her bp meds until just few min ago- thinks tolerating victoza no sx in day- is takingat nightEncounter Diagnosis: Type 2 or unspecified type diabetes mellitus, uncontrolled, Acute exacerbation of COPD with asthma, Benign essential hypertension (401.1), Anxiety, Hypothyroidism, Hypercholesteremia [facility] Office Visit On: 17-Oct-2015 11:09 Encounter Reason: Nurse procedure visit - Reason for visit: six minute walk test. Note for Nurse procedure visit: Pt is here for 6 min walk assessment d/t COPD and sob.Encounter Diagnosis: End: 17-Oct-2015 14:48 Chronic obstructive pulmonary disease, unspecified COPD type [facility] Annotation/Addendum On: 24-Sep-2015 16:21 Encounter Diagnosis: Unspecified Diagnosis End: 24-Sep-2015 16:48 [facility] Office Visit On: 24-Sep-2015 9:49 Encounter Reason: Follow up for diabetes/glucose intolerance - The patient feels well with minor complaints (some congestion back). Patient has been compliant with instructions. fasting blood sugars : (95-116).Encounter Diagnosis: End: 24-Sep-2015 16:05 Type 2 or unspecified type diabetes mellitus, uncontrolled, BMI 45.0-49.9, adult, Chronic obstructive pulmonary disease, unspecified COPD type [facility] Office Visit On: 28-Aug-2015 11:05 Encounter Reason: Follow up acute care visit - The patient feeling better since last seen (Now diarrhea) and improving. Patient has been compliant with instructions. Current medication use: no side effects and compliant End: 28-Aug-2015 11:38 with dosing regimen. Patient sleeps 5 (broken) hours per night. Nutrition: balanced diet. The medical issues the patient is following up for include asthma.Encounter Diagnosis: Acute exacerbation of COPD with asthma, Diarrhea (787.91) [facility] Visit On: 21-Aug-2015 11:18 Encounter Reason: Follow up acute care visit - The patient feeling better since last seen and improving. Patient has been compliant with instructions. Current medication use: no side effects and compliant with dosing reg End: 21-Aug-2015 12:37 imen. Patient sleeps 5 (broken) hours per night. Nutrition: inadequate caloric intake., [ADDITIONAL REASON] Follow up tests - Date: (ct scan). Encounter Diagnosis: Acute exacerbation of COPD with asthma, Wheezing (786.07) [facility] Office Visit On: 20-Aug-2015 11:13 Encounter Reason: Cough - The last clinic visit was 1 day(s) ago. Management changes made at the last visit include adding medication. Symptoms include cough, dyspnea, wheezing, runny nose and pleuritic chest pain. The c End: 20-Aug-2015 16:45 ough is described as non-productive. Cough onset was sudden 4 day(s) ago. There is no known event that preceded symptom onset. The cough occurs constantly. The episodes last for 3 days. Symptoms are reggie cribed as severe and unchanged. Symptoms are exacerbated by activity. Symptoms are not relieved by air conditioning, humidified air, warm drinks, warm weather, avoiding irritants, resting, lying down, s itting up, cough drops, cough medicine, acetaminophen, nonsteroidal anti-inflammatory drugs or inhaled bronchodilator use. Associated symptoms include headache. By report there is good compliance with t reatment. Pertinent medical history includes asthma and chronic obstructive pulmonary disease. Risk factors do not include exposure to an ill person, air pollution exposure, passive smoke exposure, smok ing, pets in the home, JHONNY inhibitor use, alcohol abuse, drug abuse, impaired immunity or missed immunizations. Previous presentation included a cough, a runny nose, dyspnea, a sore throat, muscle ache and pleuritic chest pain. Past treatment has included antibiotics. Note for Cough: similar to last time still fatigued Encounter Diagnosis: Acute exacerbation of COPD with asthma, Cough [facility] Office Visit On: 19-Aug-2015 15:33 Encounter Diagnosis: Cough End: 19-Aug-2015 15:34 [facility] Annotation/Addendum On: 19-Aug-2015 14:46 Encounter Diagnosis: Unspecified Diagnosis End: 19-Aug-2015 14:48 [facility] Office Visit On: 19-Aug-2015 14:06 Encounter Reason: Cough - The last clinic visit was 3 day(s) ago. Symptoms include cough, dyspnea, wheezing, runny nose and pleuritic chest pain. The cough is described as non-productive. Cough onset was sudden 3 day(s) End: 19-Aug-2015 14:46 ago. There is no known event that preceded symptom onset. The cough occurs constantly. The episodes last for 3 days. Symptoms are described as worsening. Symptoms are exacerbated by activity. Symptoms a re not relieved by air conditioning, humidified air, warm drinks, warm weather, avoiding irritants, resting, lying down, sitting up, cough drops, cough medicine, acetaminophen, nonsteroidal anti-inflamm atory drugs or inhaled bronchodilator use. Associated symptoms include headache. By report there is good compliance with treatment. Pertinent medical history includes asthma and chronic obstructive pulm onary disease. Risk factors do not include exposure to an ill person, air pollution exposure, passive smoke exposure, smoking, pets in the home, JHONNY inhibitor use, alcohol abuse, drug abuse, impaired im munity or missed immunizations. Previous presentation included a cough, a runny nose, dyspnea, a sore throat, muscle ache and pleuritic chest pain. Note for Cough: similar to last time Encounter Diagnosis: Cough, Acute exacerbation of COPD with asthma [facility] Office Visit On: 07-Jun-2015 8:28 Encounter Reason: Follow up acute care visit - The patient improving (aware cxr okay).Encounter Diagnosis: Acute exacerbation of COPD with asthma End: 07-Jun-2015 14:24 [facility] Office Visit On: 06-Jun-2015 10:54 Encounter Reason: Cough - Symptoms include cough and dyspnea. Cough onset was sudden 2 day(s) ago.Encounter Diagnosis: Acute exacerbation of COPD with asthma, Cough (786.2) End: 06-Jun-2015 15:06 [facility] Office Visit On: 03-Jun-2015 13:01 Encounter Diagnosis: Chronic obstructive pulmonary disease, unspecified COPD type End: 03-Jun-2015 13:27 [facility] Office Visit On: 29-May-2015 10:04 Encounter Reason: Follow up for chronic medical issues - The patient feels well with minor complaints (abdominal pain thats radiating thru to her back and around to the right side of abd- pt has a hx of different areas o End: 29-May-2015 21:18 f abdominal pain New complaint of skin lesions), has good energy level and is sleeping poorly. Patient has been compliant with instructions. Current medication use: no side effects and compliant with do sing regimen. Patient sleeps 6 hours per night. Nutrition: inappropriate diet and supplemental vitamins. The medical issues the patient is following up for include All identified problems below, blood s ugar issues, depression, gastric reflux, high blood pressure, high cholesterol and hypothyroid. Note for Follow up for chronic medical issues: bp up hasnt taken her bp meds until just few min ago- thi nks tolerating victoza no sx in day- is takingat night, [ADDITIONAL REASON] Abdominal Pain, Female - Note for Abdominal pain: has noticed on and off last 2 months- intermittent nausea- right upper radiating around back- bowels regular no blood doesnt have gb- happening 3-4 in am when gets up to go to bathroom- nearly daily - goes back to sleep and is ok- no vomit- appetite ok Encounter Diagnosis: Chronic obstructive pulmonary disease, unspecified COPD type, Benign essential hypertension (401.1), Hypothyroidism, Other and unspecified hyperlipidemia (272.4), DIABETES MELLITUS WITHOUT MENTION OF COMPLICATION; TYPE II OR UNSPECIFIED TYPE, NOT STATED UNCONTROLLED (250.00), Abdominal Pain,RUQ(789.01), Vitamin D deficiency, unspecified [facility] Office Visit On: 03-May-2015 9:14 Encounter Reason: Well Women Exam - The patient feels well with no complaints, has good energy level and is sleeping well. Pap smear: date of last pap: (03/2013). Contraceptive history: The patient is not using any metho End: 05-May-2015 21:46 d of contraception at this time. Patient does not exercise. The patient's libido is absent. The patient reports that she performs monthly self breast exam. Calcium intake includes 1200 mg with Vit D yaw ly supplement and 2 serving(s) milk daily. Previous evaluations: hysterectomy (partial hyster- still has ovaries). The patient denies the use of oral contraceptives or hormone replacement therapy. Menst ruation: Last menstrual period date: (post-arden). Note for Well Women Exam: got flu shot already- not had mammo so encoruage not due for bone density- we talked about colonoosocopy but she doesnt want to do becuase gets sick from anesthesia Encounter Diagnosis: Encounter for gynecological examination without abnormal finding, Encounter for screening mammogram for breast cancer [facility] Office Visit On: 25-Feb-2015 9:17 Encounter Reason: Follow up tests - Date: (02.18.2015)., [ADDITIONAL REASON] Follow up for chronic medical issues - The patient feels well with no complaints End: 25-Feb-2015 10:12 , has good energy level and is sleeping poorly. Patient has been compliant with instructions. Current medication use: no side effects and compliant with dosing regimen. Patient sleeps 6 hours per night. Nutrition: inappropriate diet and supplemental vitamins. The medical issues the patient is following up for include All identified problems below, blood sugar issues, depression, gastric reflux, high b lood pressure, high cholesterol and hypothyroid. Note for Follow up for chronic medical issues: bp is good and weight down 3 pounds and breathing stable and mood stable - toelrating victoza and numbrs better- no gerd Encounter Diagnosis: DIABETES MELLITUS WITHOUT MENTION OF COMPLICATION; TYPE II OR UNSPECIFIED TYPE, UNCONTROLLED (250.02), Hypothyroidism (244.9), Hypertension (401.0), Chronic Obstructive Pulmonary Disease (496.), Other and unspecified hyperlipidemia (272.4), Depression (311.), Unspecified vitamin D deficiency (268.9), Epistaxis (784.7), Chest pain, Staph infection [facility] Historical Summary On: 27-Nov-2014 16:34 Encounter Diagnosis: DIABETES MELLITUS WITHOUT MENTION OF COMPLICATION; TYPE II OR UNSPECIFIED TYPE, UNCONTROLLED (250.02) End: 27-Nov-2014 16:37 [facility] Office Visit On: 26-Nov-2014 11:23 Encounter Reason: Follow up for chronic medical issues - The patient feels well with minor complaints (Byetaa not covered anymore, needs alternative), has good energy level and is sleeping poorly (because she drinks too End: 26-Nov-2014 20:36 much fluids after 6pm and then gets up to bathroom at night). Patient has been compliant with instructions. Current medication use: no side effects and compliant with dosing regimen. Patient sleeps 6 (g ets up to the restroom at hs) hours per night. Nutrition: inappropriate diet. The medical issues the patient is following up for include All identified problems below, blood sugar issues, depression, ga stric reflux, high blood pressure, high cholesterol and hypothyroid. Note for Follow up for chronic medical issues: told her to talk with insurance and see what else cover in lieu of byeta- her mood g ood bp good - sugar little higher but not exercising like she should- no gerd and her breathingnot in a flareEncounter Diagnosis: DIABETES MELLITUS WITHOUT MENTION OF COMPLICATION; TYPE II OR UNSPECIFIED TYPE, UNCONTROLLED (250.02), Hypertension (401.0), Hypothyroidism (244.9), Chronic Obstructive Pulmonary Disease (496.), Other and unspecified hyperlipidemia (272.4), Depression (311.), Unspecified vitamin D deficiency (268.9), screening [facility] Office Visit On: 08-Aug-2014 10:30 Encounter Reason: Follow up acute care visit - The patient feeling better since last seen. Patient has been compliant with instructions. Current medication use: no side effects. Patient sleeps 6 hours per night. Impact o End: 08-Aug-2014 12:12 f disease: impact on recreation-mild. Nutrition: poor nutrition.Encounter Diagnosis: COPD WITH (ACUTE) EXACERBATION (491.21) [facility] Office Visit On: 07-Aug-2014 9:59 Encounter Reason: Follow up acute care visit - The patient feeling better since last seen and improving. Patient has been compliant with instructions. Current medication use: no side effects, compliant with dosing regime End: 07-Aug-2014 11:33 n and considered effective by patient. Patient sleeps 4 (broken) hours per night. The medical issues the patient is following up for include All identified problems below and other (copd).Encounter Diagnosis: COPD WITH (ACUTE) EXACERBATION (491.21), Cough (786.2), Wheezing (786.07) [facility] Office Visit On: 06-Aug-2014 9:29 Encounter Reason: Follow up acute care visit - The patient does not feel well, has decreased energy level and worsening. Patient has been compliant with instructions. Current medication use: no side effects, compliant wi End: 06-Aug-2014 10:30 th dosing regimen and not considered effective by patient. Patient sleeps 4 ( all broken ) hours per night. The medical issues the patient is following up for include All identified problems below and asthma.Encounter Diagnosis: COPD WITH (ACUTE) EXACERBATION (491.21), Chest pain, Cough (786.2), SARCOIDOSIS (135.) [facility] Annotation/Addendum On: 31-Jul-2014 11:25 Encounter Diagnosis: Unspecified Diagnosis End: 02-Aug-2014 8:18 [facility] Office Visit On: 31-Jul-2014 10:43 Encounter Reason: Cough - Symptoms include cough, wheezing, fever, runny nose and stuffy nose. The cough is described as barky, moist and productive. Cough onset was 2 day(s) ago. Symptoms are described as worsening. Ass End: 31-Jul-2014 11:11 ociated symptoms include postnasal drainage and headache. Current treatment includes antihistamines.Encounter Diagnosis: ASTHMA, UNSPECIFIED, WITH ACUTE EXACERBATION (493.92) [facility] Phone Encounter On: 24-Jul-2014 14:46 Encounter Diagnosis: Hypertension (401.0), Hypothyroidism (244.9), DIABETES MELLITUS WITHOUT MENTION OF COMPLICATION; TYPE II OR UNSPECIFIED TYPE, UNCONTROLLED (250.02), Other and unspecified hyperlipidemia (272.4), Depression (311.) End: 24-Jul-2014 14:50 [facility] Office Visit On: 15-Jun-2014 13:43 Encounter Reason: Skin Problems - The onset of the skin problems has been sudden and they have been occurring in a persistent pattern. The course has been increasing. The problem is characterized as a change in skin colo End: 15-Jun-2014 14:08 r. There has been associated itching and pain, while there has been no fever.Encounter Diagnosis: Staph infection [facility] Office Visit On: 31-Oct-2013 11:01 Encounter Reason: Follow up for chronic medical issues - The patient feels well with minor complaints (pt went off the asa cause was causing nose bleeds which since she has stopped it the bleeds have resolved. Wants to t End: 31-Oct-2013 11:49 alk about the measles outbreak.), has good energy level and is sleeping well. Patient has been compliant with instructions. Current medication use: no side effects and compliant with dosing regimen. Pat imelda sleeps 6 hours per night. Nutrition: inappropriate diet. The medical issues the patient is following up for include All identified problems below, blood sugar issues, depression, gastric reflux, hi gh blood pressure, high cholesterol and hypothyroid. Note for Follow up for chronic medical issues: No labs done for todays visit. States will do them this week.- she is walking and bp is good weight is stable- feels well and mood is good- sugar up little too much easter chocolate- breathing stable and palpitations- - last week 3 times- lasts for second- doing caffeine in chocolate- saw ent for nose bleeds- using saline and he took her off aspirin and has helpedEncounter Diagnosis: DIABETES MELLITUS WITHOUT MENTION OF COMPLICATION; TYPE II OR UNSPECIFIED TYPE, UNCONTROLLED (250.02), Chronic Obstructive Pulmonary Disease (496.), Unspecified vitamin D deficiency (268.9), Other and unspecified hyperlipidemia (272.4), Hypertension (401.0), Hypothyroidism (244.9), Epistaxis (784.7) [facility] Office Visit On: 31-Jul-2013 10:34 Encounter Reason: Follow up for chronic medical issues - The patient feels well with no complaints, has good energy level and is sleeping well. Patient has been compliant with instructions. Current medication use: no tatiana End: 31-Jul-2013 11:14 e effects and compliant with dosing regimen. Patient sleeps 6 hours per night. Nutrition: inappropriate diet. The medical issues the patient is following up for include All identified problems below, bl ood sugar issues, depression, gastric reflux, high blood pressure, high cholesterol and hypothyroid. Note for Follow up for chronic medical issues: weigth down 2 pounds bp is good- her lungs have been better- she isnt having the nosebleeds anym ore - mood acceptable sugar reasonable- not takng calcium supplement but is taking vit d and is drinkign water, [ADDITIONAL REASON] Follow up, Laboratory Test Results - Date: (07/28/13). Encounter Diagnosis: DIABETES MELLITUS WITHOUT MENTION OF COMPLICATION; TYPE II OR UNSPECIFIED TYPE, UNCONTROLLED (250.02), Hypertension (401.0), Hypothyroidism (244.9), Hypercalcemia(275.42), Chronic Obstructive Pulmonary Disease (496.), Unspecified vitamin D deficiency (268.9), Other and unspecified hyperlipidemia (272.4), Depression (311.) [facility] Office Visit On: 14-Jun-2013 11:27 Encounter Reason: Nurse procedure visit - Reason for visit: six minute walk test.[facility] End: 14-Jun-2013 11:51 Office Visit On: 22-May-2013 9:50 Encounter Reason: Nose bleeds - for the last week and a half and gets them several times a day always the left nostril and may last up to 1 hr long.Encounter Diagnosis: Epistaxis (784.7) End: 22-May-2013 11:00 [facility] Office Visit On: 10-May-2013 13:14 Encounter Reason: Nurse procedure visit - Reason for visit: overnight pulse oximetry.Encounter Diagnosis: COPD WITH (ACUTE) EXACERBATION (491.21) End: 10-May-2013 14:11 [facility] Office Visit On: 02-May-2013 10:31 Encounter Reason: Follow up for chronic medical issues - The patient feels well with minor complaints (cold or allergy symptoms- clear nasal drainage, watery eyes- suggested antihystamine and nasal spray- Avapro is no lo End: 02-May-2013 22:46 nger being made and she cant take the generic of it so needs alternative to avapro.), has good energy level and is sleeping well. Patient has been compliant with instructions. Current medication use: no side effects and compliant with dosing regimen. Patient sleeps 6 hours per night. Nutrition: inappropriate diet. The medical issues the patient is following up for include All identified problems below , blood sugar issues, depression, gastric reflux, high blood pressure, high cholesterol and hypothyroid. Note for Follow up for chronic medical issues: got flu vaccine- bp is good but wont be making a vapro so will need alternative - sugar reasonbale trying to keep on diet and exercise- breathing stable- and no gerd- mood been pretty good , [ADDITIONAL REASON] Follow up, Laboratory Test Results - Date: (04/03/13). Encounter Diagnosis: DIABETES MELLITUS WITHOUT MENTION OF COMPLICATION; TYPE II OR UNSPECIFIED TYPE, UNCONTROLLED (250.02), Allergic Rhinitis(477.9), Nausea (787.02), SOB (786.05), Other and unspecified hyperlipidemia (272.4), Unspecified vitamin D deficiency (268.9), Hypertension (401.0), Chronic Obstructive Pulmonary Disease (496.) [facility] Phone Encounter On: 19-Apr-2013 15:22 Encounter Diagnosis: Well Women Exam (V72.31)( Pap, Mammo, Routine Female and Dexa) (Renamed from Well Woman V72.31 (p,m,d)) End: 19-Apr-2013 15:23 [facility] Office Visit On: 18-Apr-2013 10:08 Encounter Reason: Well Women Exam - The patient feels well with no complaints, has good energy level and is sleeping well. Pap smear: date of last pap: (04/05/12). Contraceptive history: The patient is not using any metho End: 18-Apr-2013 11:04 d of contraception at this time. Patient exercises every other day. The patient's libido is absent. The patient reports that she does not perform monthly breast self exam. Calcium intake includes 1200 m g with Vit D daily supplement and >2 serving(s) milk daily. Previous evaluations: hysterectomy (partial hyster- still has ovaries). The patient denies the use of oral contraceptives or hormone replac ement therapy. Menstruation: Last menstrual period date: (post-arden).Encounter Diagnosis: Well Women Exam (V72.31)( Pap, Mammo, Routine Female and Dexa) (Renamed from Well Woman V72.31 (p,m,d)) [facility] Office Visit On: 31-Mar-2013 11:52 Encounter Reason: Nausea - Symptoms include nausea, while symptoms do not include emesis, regurgitation, abdominal pain, anorexia or bloating. Symptom onset was sudden 2 week(s) ago. There is no known event that preceded End: 31-Mar-2013 13:23 symptom onset. The symptoms occur postprandially. The patient describes this as moderate in severity and worsening. Associated symptoms include headache, while associated symptoms do not include diarrh ea, constipation, dehydration, dizziness or fatigue.Encounter Diagnosis: Nausea (787.02) [facility] Office Visit On: 26-Oct-2012 10:44 Encounter Reason: Cold Symptoms - Symptoms include nasal congestion, runny nose, hoarseness, productive cough (yellow), facial pressure, facial pain and headache, while symptoms do not include sore throat. Onset was sudd End: 27-Oct-2012 22:58 en 2 day(s) ago. The symptoms occur constantly. The patient describes this as moderate in severity and worsening. Associated symptoms include wheezing, shortness of breath, fatigue and diarrhea, while a ssociated symptoms do not include ear pain, nausea, vomiting, fever or chills. Current treatment includes cough suppressants (left over jewels-turigobertoin from previous time). Note for Cold symptoms: no itchy eyes or sneezing some watery eyes Encounter Diagnosis: Wheezing (786.07), COPD WITH (ACUTE) EXACERBATION (491.21), Allergic Rhinitis(477.9) [facility] Office Visit On: 06-Sep-2012 9:38 Encounter Reason: Cough - The last clinic visit was 3 day(s) ago. No changes in management were made at the last visit. Symptoms include cough, wheezing, runny nose and sore throat, while symptoms do not include stuffy n End: 06-Sep-2012 11:24 ose or vomiting. The cough is described as hacking and productive. Cough onset was sudden. There is no known event that preceded symptom onset. The cough occurs constantly. Symptoms are described as sev ere and worsening. Associated symptoms include postnasal drainage. The patient is not currently being treated for this problem. Note for Cough: admits to using rescue inhaler at least twice a dayEncounter Diagnosis: DIABETES MELLITUS WITHOUT MENTION OF COMPLICATION; TYPE II OR UNSPECIFIED TYPE, UNCONTROLLED (250.02), Wheezing (786.07), SOB (786.05), COPD WITH (ACUTE) EXACERBATION (491.21) [facility] Office Visit On: 22-Aug-2012 11:25 Encounter Reason: Follow up, Laboratory Test Results - Date: (08/19/12). Current symptoms/reason for visit include/s Follow up visit with no current symptoms. Note for Follow up to discuss laboratory test results: she i End: 22-Aug-2012 11:53 s feeling well good energy lungs have been better but she isnt watching diet as clse or doing exercise so bp and chol up - she is taking the meds - she is taking generic avapro- and bp up some so really have to work harder on diet and ex, [ADDITIONAL REASON] Follow up for chronic medical issues - The patient feels well with no complaints and is sleeping well. Nutrition: inappropriate diet. The medical issues the patient is following up for include blood sugar issues, depression, gastric reflux, high blood pressure, high cholesterol and hypothyroid. Note for Follow up for chronic medical issues: no gerd feeling well- occ teary but do ing ok- doesnt feel like needs to take more meds think sun will help- not getting much activity Encounter Diagnosis: Hypertension (401.0), Anxiety (300.00), SARCOIDOSIS (135.), Unspecified vitamin D deficiency (268.9), Hypothyroidism (244.9), SOB (786.05), Mastodynia (611.71), Wheezing (786.07), Other and unspecified hyperlipidemia (272.4), DIABETES MELLITUS WITHOUT MENTION OF COMPLICATION; TYPE II OR UNSPECIFIED TYPE, UNCONTROLLED (250.02), COPD WITH (ACUTE) EXACERBATION (491.21), Abnormal mammogram (793.80) [facility] Office Visit On: 03-May-2012 9:46 Encounter Reason: Nurse procedure visit - Reason for visit: overnight pulse oximetry.Encounter Diagnosis: Chronic Obstructive Pulmonary Disease (496.) End: 04-May-2012 20:20 [facility] Office Visit On: 27-Apr-2012 12:27 Encounter Reason: Follow up tests - Diagnostic tests include other (DEXA, labs) and PFTS. Date: (03/21/12). Follow up visit with no current symptoms. Note for Discuss procedure results: hadnt been using steroid inhaler End: 28-Apr-2012 20:05 she forgot about it - she occ short of breath comes and goes- not wheezing or coughing much at this point- not having lung pain nowEncounter Diagnosis: Chronic Obstructive Pulmonary Disease (496.), SARCOIDOSIS (135.), Osteopenia (733.90), Unspecified vitamin D deficiency (268.9), Hypothyroidism (244.9) [facility] Office Visit On: 05-Apr-2012 11:00 Encounter Diagnosis: Unspecified Diagnosis End: 05-Apr-2012 11:05 [facility] Office Visit On: 05-Apr-2012 10:12 Encounter Reason: Well Women Exam - The patient feels well with no complaints, has good energy level and is sleeping well. Pap smear: date of last pap: (12/2009). Contraceptive history: The patient is not using any method End: 05-Apr-2012 10:58 of contraception at this time. Patient exercises a daily (walks 3 blocks qd). The patient's libido is absent. The patient reports that she does not perform monthly breast self exam. Calcium intake incl udes 1200 mg with Vit D daily supplement and >2 serving(s) milk daily. Previous evaluations: hysterectomy (partial hyster- still has ovaries). The patient denies the use of oral contraceptives or hor ritu replacement therapy. Menstruation: Last menstrual period date: (post-arden). Note for Well Women Exam: has flu shot mammo and bone density set up- refuses colonsocopyEncounter Diagnosis: Well Women Exam (V72.31)( Pap, Mammo, Routine Female and Dexa) (Renamed from Well Woman V72.31 (p,m,d)) [facility] Office Visit On: 01-Apr-2012 12:03 Encounter Reason: Nurse procedure visit - Reason for visit: six minute walk test.Encounter Diagnosis: SARCOIDOSIS (135.), Chronic Obstructive Pulmonary Disease (496.) End: 01-Apr-2012 12:25 [facility] Office Visit On: 18-Mar-2012 11:52 Encounter Reason: Follow up tests - Diagnostic tests include CT scan (chest) and other (DEXA, Holter Monitor). Date: (02/11/12). Current symptoms include abdominal pain (right sided upper area under breast as before- no w End: 20-Mar-2012 21:17 orse). Note for Follow up tests: she didnt get labs will get next week- bp is good- ct reviewedEncounter Diagnosis: Meralgia paresthetica (355.1), SARCOIDOSIS (135.), Unspecified vitamin D deficiency (268.9), Benign essential hypertension (401.1) , DIABETES MELLITUS WITHOUT MENTION OF COMPLICATION; TYPE II OR UNSPECIFIED TYPE, UNCONTROLLED (250.02), Other and unspecified hyperlipidemia (272.4), Chronic Obstructive Pulmonary Disease (496.), screening, Osteopenia (733.90), Low back pain (724.2), Acute Conjuctivitis (372.01), Hypothyroidism (244.9) [facility] Office Visit On: 03-Feb-2012 14:27 Encounter Reason: Follow up Meds - The patient feels well with no complaints, has decreased energy level and is sleeping well (but broken up). Patient has been compliant with instructions. Current medication use: no side End: 04-Feb-2012 22:52 effects (I saw on TV that byetta could be linked to pancreatic cancer and wanted to learn more about it cause I have been on it quite a while -- that is what I wanted to discuss with her). Patient slee ps 7 (broken up -- helps with sleep aide) hours per night. Note for Follow up Meds: she has what sounds like meralgia paresthetica - she has burning not leg pain in lateral aspect of right thigh only when she walks- no weak has numb feet fromher dm but thought maybe was due to chol meds bt didnt get better so she will go back on talked about other o[ptions than byetta but she chooses to stay onEncounter Diagnosis: SARCOIDOSIS (135.), Meralgia paresthetica (355.1), DIABETES MELLITUS WITHOUT MENTION OF COMPLICATION; TYPE II OR UNSPECIFIED TYPE, UNCONTROLLED (250.02), Unspecified vitamin D deficiency (268.9), Other and unspecified hyperlipidemia (272.4), Benign essential hypertension (401.1), Hypothyroidism (244.9) [facility] Office Visit On: 30-Sep-2011 11:00 Encounter Reason: Follow up acute care visit - The patient does not feel well, has decreased energy level and worsening. Patient has been compliant with instructions. Current medication use: no side effects and compliant End: 04-Oct-2011 21:32 with dosing regimen. Patient sleeps 5 hours per night. The medical issues the patient is following up for include All identified problems below and URI. Note for Follow up acute care visit: Pt seen Marva moeller on wednesday and is still currently taking the Levaquin.- she is only doign breathing treatments twice a day-- still cough but dry- didnt take temp at home but sweats at night- wheezing cough sob fatig ue - chest tight hurts to cough- she acutally felt better until started tapering preedEncounter Diagnosis: BRONCHITIS, NOT SPECIFIED ACUTE OR CHRONIC (490.), COPD WITH (ACUTE) EXACERBATION (491.21) [facility] Office Visit On: 25-Sep-2011 9:15 Encounter Reason: Cough - The onset of the cough has been sudden. The cough is characterized as productive of mucoid sputum. The amount of sputum produced is scanty. The cough occurs all the time. The symptoms are aggra End: 25-Sep-2011 11:29 vated by supine posture. The symptoms have been associated with hoarseness, runny nose, sore throat and wheezing, while the symptoms have not been associated with fever or headache. the color of the sputum is yellowish.Encounter Diagnosis: Cough (786.2), SOB (786.05), Wheezing (786.07), BRONCHITIS, NOT SPECIFIED ACUTE OR CHRONIC (490.) [facility] Phone Encounter On: 11-Aug-2011 13:25 Encounter Diagnosis: Unspecified Diagnosis End: 11-Aug-2011 13:27 [facility] Office Visit On: 31-Jul-2011 9:42 Encounter Reason: Follow up acute care visit - The patient feeling better since last seen and improving. Patient has been compliant with instructions. Current medication use: no side effects, compliant with dosing regime End: 31-Jul-2011 10:00 n and considered effective by patient. The medical issues the patient is following up for include All identified problems below and other (conjunctivitis).Encounter Diagnosis: Acute Conjuctivitis (372.01) [facility] Office Visit On: 28-Jul-2011 9:19 Encounter Reason: Eye Redness - Symptoms include eye redness, eye pain, eye itching, eye burning, eye stinging and lacrimation. Symptoms are located in the left eye and right eye. Onset was sudden 2 month(s) ago. There i End: 28-Jul-2011 10:02 s no known event that preceded symptom onset. The symptoms occur constantly. The patient describes this as severe and worsening. Associated symptoms include photophobia, lid irritation, facial pain and facial redness, while associated symptoms do not include fever, headache or nausea. Presentation included eye pain, eye itching, lid swelling, facial rash and photophobia.Encounter Diagnosis: Acute Conjuctivitis (372.01) [facility] Office Visit On: 01-Jul-2011 14:30 Encounter Reason: Follow up for chronic medical issues - The patient feels well with no complaints, has good energy level and is sleeping well. Patient has been compliant with instructions. Current medication use: no tatiana End: 02-Jul-2011 20:42 e effects and compliant with dosing regimen. Patient sleeps 6 (with tylenol pm) hours per night. Nutrition: balanced diet, supplemental vitamins and low salt diet. The medical issues the patient is foll owing up for include All identified problems below, blood sugar issues, COPD, depression (anxiety), high blood pressure, hypothyroid and other (obesity, allergies).Encounter Diagnosis: DIABETES MELLITUS WITHOUT MENTION OF COMPLICATION; TYPE II OR UNSPECIFIED TYPE, UNCONTROLLED (250.02), Need for prophylactic vaccination and inoculation against influenza (V04.81), Unspecified vitamin D deficiency (268.9), Hypothyroidism (244.9), Other and unspecified hyperlipidemia (272.4), Benign essential hypertension (401.1), Eczema (692.9) [facility] Office Visit On: 31-Mar-2011 9:48 Encounter Reason: Cold Symptoms - Symptoms include nasal congestion, runny nose, sore throat, hoarseness, productive cough (yellow), facial pressure and facial pain, while symptoms do not include headache. Onset was sudd End: 31-Mar-2011 10:36 en 3 day(s) ago. The symptoms occur constantly. The patient describes this as moderate in severity and worsening. Associated symptoms include wheezing, shortness of breath and nausea, while associated s ymptoms do not include ear pain, vomiting, diarrhea, fever or chills. Current treatment includes non-prescription cold medication (mucinex).Encounter Diagnosis: COPD WITH (ACUTE) EXACERBATION (491.21), Acute sinusitis (461.9), screening [facility] Office Visit On: 16-Dec-2010 9:09 Encounter Reason: Sore throat - The onset of the sore throat has been sudden and has been occurring in a persistent pattern for 3 days. The course has been worsening. The symptoms have been associated with change in voic End: 16-Dec-2010 10:04 e, chills, cough (non productive), difficulty in swallowing, ear pain (bilatteral with clear drainage), recent contact with a person with sore throat, runny nose (clear) and sinus pain. Note for Sore t hroat: sick since wednesday- coughing alot - yellow sputum- not sob- not in chest yet- taking claritin with no helpEncounter Diagnosis: COPD WITH (ACUTE) EXACERBATION (491.21), Allergic Rhinitis(477.9), Acute sinusitis (461.9), Bronchitis,Acute (466.0) [facility] Office Visit On: 27-Aug-2010 10:37 Encounter Reason: Follow up Meds - The patient feels well with no complaints, has good energy level and is sleeping well (but broken up). Patient has been compliant with instructions. Current medication use: no side effe End: 27-Aug-2010 11:25 cts and compliant with dosing regimen. Patient sleeps 7 (broken up) hours per night. Note for Follow up Meds: Pt f/u on increasing celexa to 20mg qd and she states she sees alot of improvement in her anxiety issues. event monitor ok and palps improved with improve anxiety and no side effects- her vit d taking 2000 vit d bid - copugh bronchitis gone- and fever- still cant slep wake middle of night-cant stop thought, [ADDITIONAL REASON] Follow up, Laboratory Test Results - Date: (07/07/10). Encounter Diagnosis: SYMPTOM, FEVER, UNSPECIFIED (780.60), Symptom, Palpitations (785.1), Benign essential hypertension (401.1), Depression (311.), Other and unspecified hyperlipidemia (272.4), Hypothyroidism (244.9), Unspecified vitamin D deficiency (268.9) [facility] Office Visit On: 15-Jul-2010 11:59 Encounter Reason: Cold Symptoms - Symptoms include nasal congestion, runny nose, sore throat, hoarseness, productive cough, facial pressure and facial pain, while symptoms do not include headache. Onset was sudden 3 day( End: 15-Jul-2010 12:39 s) ago. 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 The symptoms occur constantly. The patient describes this as moderate in severity and worsening. A ssociated symptoms include wheezing, shortness of breath, nausea, fever and chills, while associated symptoms do not include ear pain, vomiting or diarrhea. Current treatment includes non-prescription c old medication (mucinex). Note for Cold Symptoms: Pt also has body ache.- low grade temp - alot of yellow phlegm- sore throat no walton- alot off cough- little sobEncounter Diagnosis: SYMPTOM, FEVER, UNSPECIFIED (780.60), Bronchitis,Acute (466.0) [facility] Office Visit On: 07-Jul-2010 8:47 Encounter Reason: Pt is here to get an Event monitor - d/t palpitationsEncounter Diagnosis: Symptom, Palpitations (785.1), event monitor End: 07-Jul-2010 11:45 [facility] Office Visit On: 04-Jul-2010 9:56 Encounter Reason: Follow up for chronic medical issues - The patient feels well with minor complaints (increased depression- thinks maybe needs to increase meds), has good energy level and is sleeping poorly (ongoing iss End: 04-Jul-2010 11:24 ue). Patient has been compliant with instructions. Current medication use: no side effects and compliant with dosing regimen. Patient sleeps 6 (with tylenol pm) hours per night. Nutrition: inappropriate diet, supplemental vitamins and low salt diet. The medical issues the patient is following up for include All identified problems below, blood sugar issues, COPD, depression (anxiety), high blood press ure, hypothyroid and other (obesity, allergies). Note for Follow up for chronic medical issues: she struggled some with holidaay and stress of recent move- no si- -she did start exercising though wit h treadmill- her back feeling better and didnt get mammo so encourage- her brathing has been good and shesaid she is done doing ct of chestEncounter Diagnosis: DIABETES MELLITUS WITHOUT MENTION OF COMPLICATION; TYPE II OR UNSPECIFIED TYPE, UNCONTROLLED (250.02), Benign essential hypertension (401.1), Unspecified vitamin D deficiency (268.9), Other and unspecified hyperlipidemia (272.4), Hypothyroidism (244.9), Chronic Obstructive Pulmonary Disease (496.), Depression (311.), Low back pain (724.2), Symptom, Palpitations (785.1) [facility] Office Visit On: 26-May-2010 10:14 Encounter Reason: Follow up acute care visit - The patient feeling better since last seen and improving. Patient has been compliant with instructions. Current medication use: no side effects, compliant with dosing regime End: 26-May-2010 12:18 n and considered effective by patient. Patient sleeps 6 hours per night. The medical issues the patient is following up for include All identified problems below and other (low back pain ).Encounter Diagnosis: Low back pain (724.2) [facility] Office Visit On: 12-May-2010 10:23 Encounter Reason: Flank pain - The onset of the flank pain has been sudden and has been occurring in a persistent pattern for 1 week. The course has been constant. The flank pain is described as moderate. The quality of End: 12-May-2010 11:05 the flank pain is described as a dull ache. The flank pain is described as being located in both flanks. The flank pain does not radiate. The symptoms have been associated with nausea, while the symptom s have not been associated with chills, diarrhea, dysuria, fever, frequency or hematuria.Encounter Diagnosis: Low back pain (724.2), Hypothyroidism (244.9) [facility] Phone Encounter On: 10-Feb-2010 18:12 [facility] End: 10-Feb-2010 18:13 Office Visit On: 07-Jan-2010 10:26 Encounter Reason: Well Women Exam - The patient feels well with no complaints ,has good energy level and is sleeping well. Pap smear: date of last pap: (over 4 years ago). Contraceptive history: The patient is not using End: 07-Jan-2010 11:02 any method of contraception at this time. Patient exercises a daily (walks 3 blocks qd). The patient's libido is absent. The patient reports that she does not perform monthly breast self exam. Previous evaluations: hysterectomy (partial hyster- still has ovaries). The patient denies the use of oral contraceptives or hormone replacement therapy. Encounter Diagnosis: Well Women Exam (V72.31)( Pap, Mammo, Routine Female and Dexa) (Renamed from Well Woman V72.31 (p,m,d)), Hypothyroidism (244.9) [facility] Office Visit On: 19-Nov-2009 9:17 Encounter Reason: Follow up for chronic medical issues - The patient feels well with minor complaints (rash on back of left thigh) ,has good energy level and is sleeping well. Patient has been compliant with instructions End: 19-Nov-2009 10:04 . Current medication use: no side effects and compliant with dosing regimen. Patient sleeps 6 (with tylenol pm) hours per night. Nutrition: balanced diet ,supplemental vitamins and low salt diet. The me dical issues the patient is following up for include All identified problems below ,blood sugar issues ,COPD ,depression (anxiety) ,high blood pressure ,hypothyroid and other (obesity, allergies). fasti ng blood sugars : (140's to 150's). Note for Follow up for chronic medical issues: breathing has shanon good and so is allergies- she is seeing Dr Pickett every 2 mos- for feet and is trying to exercise - she is trying to watch diet- bp is good, [ADDITIONAL REASON] Rash - The onset of the rash has been sudden and has been occurring in a persistent pattern for 2 weeks. The course has been increasing. The rash is characterized as red ,crusty and flat. The rash was first seen on the lower extremity (back of left thigh). There has been no progression. There has been associated itching and pain (sore), while there has been no chills ,fever or los s of sensation. Note for Rash: started like hive- itchy initially itchy - was using betadine on Encounter Diagnosis: DIABETES MELLITUS WITHOUT MENTION OF COMPLICATION; TYPE II OR UNSPECIFIED TYPE, UNCONTROLLED (250.02), Hypertension (401.0), Hypothyroidism (244.9), Chronic Obstructive Pulmonary Disease (496.), Depression (311.), Symptom, Palpitations (785.1), Unspecified vitamin D deficiency (268.9), Other and unspecified hyperlipidemia (272.4), screening, Rash (782.1) [facility] Office Visit On: 25-Sep-2009 15:34 Encounter Reason: Sore throat - The onset of the sore throat has been sudden and has been occurring in a persistent pattern for 2 days. The course has been worsening. The symptoms have been associated with change in voic End: 25-Sep-2009 16:20 e ,chills ,cough ,difficulty in swallowing ,purulent sputum (yellow to hernandez) ,recent contact with a person with sore throat ,runny nose ,sinus pain and swelling of neck glands, while the symptoms have not been associated with ear pain or fever. Encounter Diagnosis: ACUTE PHARYNGITIS (462.) [facility] Office Visit On: 19-Aug-2009 12:02 Encounter Reason: Follow up for chronic medical issues - The patient feels well with no complaints ,has good energy level and is sleeping well. Patient has been compliant with instructions. Current medication use: no tatiana End: 19-Aug-2009 22:31 e effects and compliant with dosing regimen. Patient sleeps 6 (with tylenol pm) hours per night. Nutrition: inappropriate diet ,supplemental vitamins and low salt diet. The medical issues the patient is following up for include All identified problems below ,blood sugar issues ,COPD ,depression (anxiety) ,high blood pressure ,hypothyroid and other (obesity, allergies). fasting blood sugars : (140's to 150's). Note for Follow up for chronic medical issues: event monitor didnt work - she tried to call them and they havent got back to her- taking tylenol pm to sleep and helps some- has only been taki ng one simvistatin and one vit d-- she has been breathing good no cough or wheeze, [ADDITIONAL REASON] Follow up, Laboratory Test Results - Date: (07/17/09). Encounter Diagnosis: DIABETES MELLITUS WITHOUT MENTION OF COMPLICATION; TYPE II OR UNSPECIFIED TYPE, UNCONTROLLED (250.02), Unspecified vitamin D deficiency (268.9), DIABETES MELLITUS WITHOUT MENTION OF COMPLICATION; TYPE II OR UNSPECIFIED TYPE, NOT STATED UNCONTR OLLED (250.00), Other and unspecified hyperlipidemia (272.4), Benign essential hypertension (401.1), Hypothyroidism (244.9), Anemia (285.9), Symptom, Palpitations (785.1), Chronic Obstructive Pulmonary Disease (496.) [facility] Historical Summary On: 24-Jul-2009 10:47 [facility] End: 24-Jul-2009 10:51 Office Visit On: 07-Jun-2009 11:38 Encounter Diagnosis: Symptom, Palpitations (785.1), Event monitor End: 07-Jun-2009 12:12 [facility] Office Visit On: 07-May-2009 11:04 Encounter Reason: Follow up for chronic medical issues - The patient feels well with no complaints ,has good energy level and is sleeping well. Patient has been compliant with instructions. Current medication use: no tatiana End: 07-May-2009 12:07 e effects and compliant with dosing regimen. Patient sleeps 6 (with tylenol pm) hours per night. Nutrition: inappropriate diet ,supplemental vitamins and low salt diet. The medical issues the patient is following up for include All identified problems below ,blood sugar issues ,COPD ,depression (anxiety) ,high blood pressure ,hypothyroid and other (obesity, allergies). fasting blood sugars : (110's to 120's). Note for Follow up for chronic medical issues: she is sleeping ok and mood is good and bp is good- and she is feeling better from the pneumoniaEncounter Diagnosis: DIABETES MELLITUS WITHOUT MENTION OF COMPLICATION; TYPE II OR UNSPECIFIED TYPE, NOT STATED UNCONTROLLED (250.00), Hypothyroidism (244.9), Hypertension (401.0), vitamin d deficiency, Other and unspecified hyperlipidemia (272.4), Chronic Obstructive Pulmonary Disease (496.), Anxiety (300.00), Osteopenia (733.90), Symptom, Palpitations (785.1), screen [facility] Office Visit On: 22-Apr-2009 15:52 Encounter Reason: Nausea - The onset of the nausea has been sudden and has been occurring in a persistent pattern for 2 days. The course has been constant. The nausea has no relationship to meals. The symptoms have no ag End: 22-Apr-2009 17:16 gravating factors. The symptoms have no relieving factors. The symptoms have been associated with fever and headache, while the symptoms have not been associated with diarrhea or vomiting (needs to). No te for Nausea: fever this am of 99.1, night before was 99.8. no vomiting just severe nausea. DENIES SHORTNESS OF BREATH. coughing up yellow-green sputum and blowing out nose.- showed me this in a napk in. has a headache to back of head and low back pain, both sides. drinking diet sprite, caffeine free diet pepsi, had some scrambled eggs this am with her byetta. Has not been able to check blood sugars past 2 days has not had the energy had some broth last night. sugar prior to this was 112-134. no diarrhea. NO tylenol today. states is urinating a darker yellow but a little less.Encounter Diagnosis: FLU (487.1), Nausea/Vomiting (787.01), Bacterial pneumonia, unspecified (482.9), Hypothyroidism (244.9) [facility] Office Visit On: 19-Apr-2009 11:32 Encounter Diagnosis: Cough (786.2), ACUTE PHARYNGITIS (462.), FLU (487.1), SARCOIDOSIS (135.) End: 19-Apr-2009 12:14 [facility] Office Visit On: 04-Apr-2009 10:52 Encounter Reason: Flu like symptoms - The onset of the flu like symptoms has been sudden and they have been occurring in a persistent pattern for days. The course has been increasing. The flu like symptoms are described End: 04-Apr-2009 12:26 as severe. Note for Flu like symptoms: Son diagnosed with [id number] Diagnosis: BRONCHITIS, NOT SPECIFIED ACUTE OR CHRONIC (490.), Cough (786.2), SOB (786.05) [facility] Office Visit On: 07-Dec-2008 9:24 Encounter Reason: Follow up Meds - The patient feels well with no complaints ,has good energy level and is sleeping well. Patient has been compliant with instructions. Current medication use: no side effects and complian End: 09-Dec-2008 19:29 t with dosing regimen. Patient sleeps 6 hours per night. Note for Follow up Meds: f/u on celexa-- she likes the celexa is sleepign all night - her mood is good- sheis happy - with this, [ADDITIONAL REASON] Follow up, Laboratory Test Results - Date: (10/23/08). Encounter Diagnosis: vitamin d deficiency, Other and unspecified hyperlipidemia (272.4), Sleep disorder (780.50), Depression (311.), Mastodynia (611.71), Acne (706.1), Premenstrual tension syndromes (625.4), SYMPTOMS INVOLVING URINARY SYSTEM; URINARY FREQUENCY (788.41), COPD WITH (ACUTE) EXACERBATION (491.21), Chest pain (786.59) [facility] Historical Summary On: 24-Oct-2008 17:50 [facility] End: 24-Oct-2008 17:51 Office Visit On: 23-Oct-2008 9:57 Encounter Reason: Follow up for chronic medical issues - The patient feels well with minor complaints ,has decreased energy level and is sleeping poorly. Patient has been compliant with instructions. Current medication u End: 23-Oct-2008 10:55 se: no side effects and compliant with dosing regimen. Patient sleeps 5 hours per night. Nutrition: balanced diet and supplemental vitamins. The medical issues the patient is following up for include Al l identified problems below ,blood sugar issues ,high blood pressure and high cholesterol. Note for Follow up for chronic medical issues: her sob and cough and abd pain and nausea resolved- bp looks g ood but weight up becuase didnt exercise while sick- breathing is good and just had pfts and sees Vannesa this month and seeing her foot doctor too, [ADDITIONAL REASON] Fatigue - The onset of the fatigue has been gradual and has been occurring in a persistent pattern for months. The course has been constant. The fatigue occurs all the time. Note for Fatigue: she cant stay asleep and so getting poor rest- up aand down -- having trouble shutting d own her brain- has racing thoughts-mood is good during the day Encounter Diagnosis: DIABETES MELLITUS WITHOUT MENTION OF COMPLICATION; TYPE II OR UNSPECIFIED TYPE, NOT STATED UNCONTROLLED (250.00), Chronic Obstructive Pulmonary Disease (496.), Hypothyroidism (244.9), Anxiety (300.00), Anemia (285.9), Hypertension (401.0), Abnormal blood chemistry (790.6), Other and unspecified hyperlipidemia (272.4), Osteopenia (733.90) [facility] Office Visit On: 21-Sep-2008 11:54 Encounter Reason: Cough - The onset of the cough has been sudden (yesterday). The cough is characterized as productive of mucopurulent sputum. The amount of sputum produced is scanty. The cough occurs all the time. The s End: 23-Sep-2008 18:31 ymptoms are aggravated by supine posture, but not by meals. The symptoms have been associated with hoarseness ,runny nose ,sore throat and wheezing, while the symptoms have not been associated with feve r or headache. the color of the sputum is yellowish. Note for Cough: hasnt taken temp - is sob- not much productive sputum yellow-- nausea- no wheezeEncounter Diagnosis: SOB (786.05), Cough (786.2), Abdominal Pain,RUQ(789.01), Nausea (787.02) [facility] Office Visit On: 27-Jul-2008 11:04 Encounter Reason: Follow up for chronic medical issues - The patient feels well with no complaints ,has good energy level and is sleeping poorly. Patient has been compliant with instructions. Current medication use: no s End: 27-Jul-2008 11:41 kylee effects and compliant with dosing regimen. Patient sleeps 5 hours per night. Nutrition: balanced diet ,supplemental vitamins and low salt diet. The medical issues the patient is following up for inc karlie All identified problems below ,blood sugar issues ,cardiac issues (palpitations) ,COPD ,depression (anxiety) ,high blood pressure ,high cholesterol ,hypothyroid ,osteoporosis/osteopenia and other ( sarcoidosis, low hdl, obesity, allergic rhintiis, anemia). fasting blood sugars : (110's) and evening sugars : (130's). Note for Follow up for chronic medical issues: saw Vannesa-- for her sarcoid and has followup cxr- and lab and pfts set up- apparently they removed the lung lesions when they did the surgery per pt-- he wants her to do exercise at [facility] and has her set up for activiity an loo ks fine to do-- her bp is good and wt is stable- mood has been better - back pain is better- breathing is better, [ADDITIONAL REASON] Follow up, Laboratory Test Results - Date: (07/23/08). Encounter Diagnosis: DIABETES MELLITUS WITHOUT MENTION OF COMPLICATION; TYPE II OR UNSPECIFIED TYPE, NOT STATED UNCONTROLLED (250.00), Other and unspecified hyperlipidemia (272.4), Depression (311.), Hypothyroidism (244.9), Chronic Obstructive Pulmonary Disease (496.), Anemia (285.9) [facility] Historical Summary On: 06-Jul-2008 8:38 [facility] End: 06-Jul-2008 8:40 Historical Summary On: 05-Jul-2008 16:26 [facility] End: 05-Jul-2008 16:33 Office Visit On: 14-Jun-2008 10:14 Encounter Reason: Follow up tests - Diagnostic tests include other (DEXA, Holter Monitor). Date: (05/01/08). Current symptoms include other (right flank discomfort). Note for Follow up tests: urine sx got better then wh End: 14-Jun-2008 11:00 en off the drug came back with low back pain - no dysuria but freq- wt down 23 pounds in 11/2 years and trying - bp is better- last year fell and hurt back- wonders if had compression back then- as her bone density is normal and is wondering if that is issue so will get xray on back- doesnt always have palpitations- lately not had- told if comes more freq - will remonuitor herEncounter Diagnosis: Hypertension (401.0), BACKACHE, NOS (724.5), Symptom, Palpitations (785.1), Other and unspecified hyperlipidemia (272.4) [facility] Office Visit On: 24-Apr-2008 9:22 Encounter Reason: Follow up for chronic medical issues - The patient feels well with no complaints ,has good energy level and is sleeping poorly (going to bathroom ). Patient has been compliant with instructions. Current End: 24-Apr-2008 13:10 medication use: no side effects and compliant with dosing regimen. Patient sleeps 5 hours per night. Nutrition: balanced diet ,supplemental vitamins and low salt diet. The medical issues the patient is following up for include All identified problems below ,blood sugar issues ,COPD (sob) ,depression (anxiety) ,high blood pressure ,high cholesterol ,hypothyroid and other (sarcoidosis, allergic rhiniti s, obesity). fasting blood sugars : (110's) ,evening sugars : (50's 90's) and weight :. Note for Follow up for chronic medical issues: wt down 10 pounds and trying 0- she is exercising-- she is off tr icor-- and leg crasmps are gone-- she still hasnt gone back to [facility] and needs to - she will make appt -- mood has been good- had screenaing ankle bone density and was abnormal-- per pt dad from ruptured aortic aneurysm, [ADDITIONAL REASON] Follow up, Diagnostic Procedure Results - Diagnostic tests include mammography (diag). Date: (04/11/08). , [ADDITIONAL REASON] Urinary problems - The onset of the urinary problems has been gradual and they h ave been occurring in a persistent pattern for years. The course has been increasing. The urinary problems are described as moderate. The urinary problem is characterized as frequency. There has been no associated fever / chills ,back pain ,nausea or blood in urine. Encounter Diagnosis: DIABETES MELLITUS WITHOUT MENTION OF COMPLICATION; TYPE II OR UNSPECIFIED TYPE, UNCONTROLLED (250.02), Osteopenia (733.90), Chronic Obstructive Pulmonary Disease (496.), Hypothyroidism (244.9), Depression (311.), Other and unspecified hyperlipidemia (272.4), Abnormal mammogram (793.80), Symptom, Palpitations (785.1), family hx of aneurysm, SYMPTOMS INVOLVING URINARY SYSTEM; URINARY FREQUENCY (788.41) [facility] Office Visit On: 23-Jan-2008 9:24 Encounter Reason: Follow up for chronic medical issues - The patient feels well with minor complaints (leg cramps) ,has good energy level and is sleeping well. Patient has been compliant with instructions. Current medica End: 23-Jan-2008 10:01 tion use: no side effects and compliant with dosing regimen. The medical issues the patient is following up for include All identified problems below ,blood sugar issues ,COPD ,depression (anxiety) ,hig h blood pressure ,high cholesterol ,hypothyroid and other (allergic rhinitis, anemia, sarcoidosis). fasting blood sugars : (150's to 170's). Note for Follow up for chronic medical issues: her wt is st able- she is trying to lose wt and having difficulty-- she is exercising-- she is doing the gazelle 25-30 min 3 x a day - diarrhea is gone and mood is stable-- , [ADDITIONAL REASON] Follow up, Laboratory Test Results - Date: (01/14/08). , [ADDITIONAL REASON] Cramping of legs - The leg cramping began suddenly and has been occurring for 8 days. The symptoms have been occurring in an intermittent pattern. The symptoms are described as a cr amping and are moderate in severity. The symptoms occur at night. There is involvement of the left calf and right calf. There are no precipitating factors. Aggravating factors include lying flat. Relief is provided by massage and other (stretching). There has been no associated chest pain ,fatigue ,numbness and tingling in toes ,calf swelling ,cough ,fever or chills. Note for Cramping of legs: when cramps - she does stretching exercises and helps- Encounter Diagnosis: DIABETES MELLITUS WITHOUT MENTION OF COMPLICATION; TYPE II OR UNSPECIFIED TYPE, UNCONTROLLED (250.02), Hypothyroidism (244.9), Diarrhea (787.91), Depression (311.), Anemia (285.9), Chronic Obstructive Pulmonary Disease (496.), Other and unspecified hyperlipidemia (272.4), SARCOIDOSIS (135.), leg cramps- hold crestor and tricorfor 2 weeks and call with update [facility] Office Visit On: 09-Nov-2007 10:53 Encounter Reason: Diarrhea - The onset of the diarrhea has been sudden and has been occurring in a persistent pattern for 3 weeks. The course has been constant. The stools are watery and mixed with blood (blood from hemo End: 09-Nov-2007 12:40 rrhoid.). The volume of the stools is large. The symptoms have been associated with abdominal pain (on right side.) ,fever (wednesday) ,nausea and weakness. Encounter Diagnosis: Diarrhea (787.91), Dehydration(276.51), Abdominal Pain,General (789.07) [facility] Office Visit On: 17-Oct-2007 9:32 Encounter Reason: Follow up for chronic medical issues - The patient feels well with no complaints ,has good energy level and is sleeping well. Patient has been compliant with instructions. Current medication use: no tataina End: 17-Oct-2007 10:04 e effects and compliant with dosing regimen. Nutrition: inappropriate diet ,supplemental vitamins and low salt diet. The medical issues the patient is following up for include All identified problems be low ,blood sugar issues ,COPD ,depression ,high blood pressure ,high cholesterol ,hypothyroid and other (obesity, anemia, allergic rhinitis). fasting blood sugars : (180's). 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: she is seeing Sibilia for her sarcoid and things are stable- she is exercsing and taking all her meds-- but her bp is good and her sugars are up a bitEncounter Diagnosis: DIABETES MELLITUS WITHOUT MENTION OF COMPLICATION; TYPE II OR UNSPECIFIED TYPE, UNCONTROLLED (250.02), Hypertension (401.0), Hypothyroidism (244.9), Other and unspecified hyperlipidemia (272.4), Depression (311.), Dyspnea, On Exertion (786.09) [facility] Office Visit On: 18-Jul-2007 9:37 Encounter Reason: Follow up for chronic medical issues - The patient feels well with no complaints ,has good energy level and is sleeping well. Patient has been compliant with instructions. Current medication use: no tatiana End: 18-Jul-2007 22:24 e effects and compliant with dosing regimen. Nutrition: inappropriate diet and no supplemental vitamins & iron. The medical issues the patient is following up for include All identified problems bel ow ,blood sugar issues ,COPD ,depression (anxiety) ,high blood pressure ,hypothyroid and other (anemia, obesity). fasting blood sugars : (140's to 175) and evening sugars : (120's to 130's). Note for Mayte curtmayo up for chronic medical issues: she couldnt take metformin - it gave her hives-- she cant afford any meds that isnt generic and she doesnt want to take insulin-- she doeswnt exercise regularly at home- no muscle weakness, [ADDITIONAL REASON] Follow up, Laboratory Test Results - Date: (07/11/07). Encounter Diagnosis: DIABETES MELLITUS WITHOUT MENTION OF COMPLICATION; TYPE II OR UNSPECIFIED TYPE, UNCONTROLLED (250.02), SARCOIDOSIS (135.), Dyspnea, On Exertion (786.09) , Benign essential hypertension (401.1), Hypothyroidism (244.9), Depression (311.), Other and unspecified hyperlipidemia (272.4) [facility] Phone Encounter On: 23-May-2007 15:37 Encounter Diagnosis: Other and unspecified hyperlipidemia (272.4), Benign essential hypertension (401.1) End: 23-May-2007 15:43 [facility] Office Visit On: 11-Apr-2007 10:12 Encounter Reason: Follow up for chronic medical issues - The patient feels well with minor complaints (sore throat) ,has good energy level and is sleeping poorly. Patient has been compliant with instructions. Current med End: 11-Apr-2007 10:53 ication use: no side effects and non-compliant with dosing regimen. Nutrition: balanced diet ,no supplemental vitamins & iron and low salt diet. The medical issues the patient is following up for in clude All identified problems below ,blood sugar issues ,COPD ,depression ,high blood pressure ,high cholesterol ,hypothyroid and other (sob, cp, anxiety). fasting blood sugars : (113 to 123). Note for Follow up for chronic medical issues: has dx of sarcoid- and went to pulm rehab for 12 weeks- no cancer- her breathign is alot better - she is not having routine low blood sugars and feels well- mood is good and off the lexapro - she weaned off and doing fine- she is forgetting niaspan- she also is having trouble falling asleep, [ADDITIONAL REASON] Sore throat - The onset of the sore throat has been sudden and has been occurrin g in a persistent pattern for 2 days. The course has been worsening. The symptoms have been associated with change in voice ,post-nasal drip ,runny nose ,sinus pain and swelling of neck glands, while th e symptoms have not been associated with chest pain ,chills ,cough ,difficulty in swallowing ,ear pain or fever. Encounter Diagnosis: DIABETES MELLITUS WITHOUT MENTION OF COMPLICATION; TYPE II OR UNSPECIFIED TYPE, NOT STATED UNCONTROLLED (250.00) , Hypothyroidism (244.9), ACUTE PHARYNGITIS (462.), Sleep disorder (780.50), SARCOIDOSIS (135.), Chronic Obstructive Pulmonary Disease (496.), Anemia (285.9) [facility] Historical Summary On: 17-Feb-2007 15:09 [facility] End: 17-Feb-2007 15:15 Office Visit On: 19-Jan-2007 14:00 Encounter Reason: Follow up for chronic medical issues - The patient feels well with minor complaints (wants her right ankle looked at also ) ,has good energy level and is sleeping well. Patient has been compliant with i End: 19-Jan-2007 16:38 nstructions. Current medication use: no side effects and compliant with dosing regimen. Patient sleeps 6 hours per night. Nutrition: balanced diet and no supplemental vitamins & iron. The medical is sues the patient is following up for include All identified problems below ,blood sugar issues ,COPD ,high blood pressure and high cholesterol. fasting blood sugars : (158 in am). Encounter Diagnosis: DIABETES MELLITUS WITHOUT MENTION OF COMPLICATION; TYPE II OR UNSPECIFIED TYPE, NOT STATED UNCONTROLLED (250.00), AVULSION FRACTURE, SARCOIDOSIS (135.), Hypertension (401.0), Low HDL (272.5), Hypothyroidism (244.9), Depression (311.), Chronic Obstructive Pulmonary Disease (496.) [facility] Office Visit On: 20-Oct-2006 12:05 Encounter Reason: Follow up for chronic medical issues - The patient feels well with no complaints ,has good energy level and is sleeping well. Patient has been compliant with instructions. Current medication use: no tatiana End: 20-Oct-2006 12:56 e effects. Patient sleeps 6 hours per night. Impact of disease: no overall impact. Nutrition: balanced diet. The medical issues the patient is following up for include All identified problems below ,blo od sugar issues ,depression ,high blood pressure ,high cholesterol and hypothyroid. fasting blood sugars : (176, 179) and evening sugars : (142). Note for Follow up for chronic medical issues: was hos pitalized for copd exac and she feels well breathing back to normal- mood is good - bs low 100--seeing sibilia and just had another cat scan to followup on lymph nodes- she dropped the lexapro to 10 mg and feels betterEncounter Diagnosis: DIABETES MELLITUS WITHOUT MENTION OF COMPLICATION; TYPE II OR UNSPECIFIED TYPE, UNCONTROLLED (250.02), Hypertension (401.0), Anxiety (300.00), Chronic Obstructive Pulmonary Disease (496.), Depression (311.), Hypothyroidism (244.9), Anemia (285.9) , Other and unspecified hyperlipidemia (272.4) [facility] Office Visit On: 04-Oct-2006 13:22 Encounter Reason: Follow up hospital - Reason for ER visit: pneumonia. The patient feels well with minor complaints (excessive fatigue) ,has decreased energy level and is sleeping well (with trazadone). Patient has been End: 04-Oct-2006 14:02 compliant with instructions. Current medication use: no side effects ,compliant with dosing regimen and considered effective by patient. Patient sleeps 6 hours per night. Impact of disease: no overall i mpact. Nutrition: balanced diet. The hospital results of the chest X-ray were Note for Follow up hospital: has appt with [facility] Diagnosis: COPD WITH (ACUTE) EXACERBATION (491.21), Bacterial pneumonia, unspecified (482.9), SOB (786.05) [facility] Office Visit On: 27-Sep-2006 10:11 Encounter Reason: Follow up acute care visit - The patient does not feel well ,has decreased energy level and worsening. Patient has been compliant (doing breathing tx q4h, prednisone feels no better) with instructions. End: 27-Sep-2006 11:14 Current medication use: no side effects and compliant with dosing regimen. Patient sleeps 4 (broken) hours per night. Impact of disease: no overall impact. Nutrition: balanced diet. The medical issues t he patient is following up for include All identified problems below and other (bronchitis). Encounter Diagnosis: COPD WITH (ACUTE) EXACERBATION (491.21), Bacterial pneumonia, unspecified (482.9), SOB (786.05), Hypertension (401.0), Hypothyroidism (244.9), DIABETES MELLITUS WITHOUT MENTION OF COMPLICATION; TYPE II OR UNSPECIFIED TYPE, UNCONTROLLED (250.02) [facility] Office Visit On: 24-Sep-2006 9:55 Encounter Reason: Follow up acute care visit - The patient feeling better since last seen. Patient has been compliant with instructions. Current medication use: experiencing side effects (Prednisone causing restlessness) End: 24-Sep-2006 16:44 . Patient sleeps 4 hours per night. Nutrition: balanced diet. The medical issues the patient is following up for include other (Exacerbated COPD, acute bronchitis). Encounter Diagnosis: COPD WITH (ACUTE) EXACERBATION (491.21), Bacterial pneumonia, unspecified (482.9) [facility] Historical Summary On: 23-Sep-2006 8:38 Encounter Reason: Cough - The onset of the cough has been acute. The cough is characterized as dry. The cough occurs all the time. The symptoms have been associated with dyspnea ,fever and wheezing. Encounter Diagnosis: End: 23-Sep-2006 10:10 COPD WITH (ACUTE) EXACERBATION (491.21), Bronchitis,Acute (466.0), SOB (786.05) [facility] Office Visit On: 26-Jul-2006 12:37 Encounter Reason: Follow up tests - Diagnostic tests include other (PET SCAN ). Date: (07/19/06- in emr.). , [ADDITIONAL REASON] Cough - The onset of the cough has been sudden. The cough is characterized as pr End: 26-Jul-2006 13:14 oductive of mucoid sputum. The amount of sputum produced is scanty. The cough occurs mainly at night. The symptoms are aggravated by supine posture. The symptoms have been associated with runny nose and sore throat, while the symptoms have not been associated with fever ,headache ,hoarseness or wheezing. the color of the sputum is yellowish. Note for Cough: for 4 days- night sweats x2 but no fever documented Encounter Diagnosis: SYMPTOMS INVOLVING CARDIOVASCULAR SYSTEM; ENLARGEMENT OF LYMPH NODES (785.6), Bronchitis,Acute (466.0) [facility] Historical Summary On: 08-Jul-2006 8:50 Encounter Diagnosis: Prophylactic vaccination against Streptococcus pneumoniae (V03.82) End: 08-Jul-2006 8:51 [facility] Office Visit On: 07-Jul-2006 10:10 Encounter Reason: Follow up tests - Diagnostic tests include CT scan (chest). Date: (07/06/06). Follow up visit with no current symptoms. Encounter Diagnosis: SYMPTOMS INVOLVING CARDIOVASCULAR SYSTEM; ENLARGEMENT OF LYMPH NODES (785.6), End: 07-Jul-2006 11:04 lung nodule - see above [facility] Historical Summary On: 05-Jul-2006 18:41 [facility] End: 05-Jul-2006 18:41 Office Visit On: 11-Jun-2006 11:13 Encounter Reason: Follow up for chronic medical issues - The patient feels well with minor complaints (Pt c/o sinus issues x 1 week). Patient has been compliant with instructions. Current medication use: no side effects. End: 14-Jun-2006 7:03 Patient sleeps 7 hours per night. Nutrition: inappropriate diet (pt states she knows that she is not eating the way she should.). The medical issues the patient is following up for include All identifi ed problems below ,blood sugar issues ,COPD ,depression ,high blood pressure and other (Elev Globulin fraction). Note for Follow up for chronic medical issues: doing better - sleeping better - now on trazadone and feeling better - ended up staying at the same place- got flu shot- she is not watching her diet or exercsing and her bs are going up, [ADDITIONAL REASON] Sinus pain - The onset of the pain has been acute and has been occurring in a pe rsistent pattern for 1 weeks. The course has been constant. The pain is characterized as moderate and a dull ache. The pain is experienced later in the day. The pain is described as being located in the right side. The symptoms are aggravated by bright light and reading. The symptoms have been associated with tenderness over sinuses. Encounter Diagnosis: Acute sinusitis (461.9), DIABETES MELLITUS WITHOUT MENTION OF COMPLICATION; TYPE II OR UNSPECIFIED TYPE, UNCONTROLLED (250.02), Benign essential hypertension (401.1), Chest pain (786.59), Chronic Obstructive Pulmonary Disease (496.), Depression (311.), Hypothyroidism (244.9) [facility] Historical Summary On: 30-Apr-2006 11:52 Encounter Diagnosis: Hypertension (401.0) End: 30-Apr-2006 11:54 [facility] Office Visit On: 12-Mar-2006 11:06 Encounter Reason: Follow up for chronic medical issues - The patient does not feel well (depressed,anxiety) ,has decreased energy level and is sleeping poorly. Patient has been compliant with instructions. Current medica End: 15-Mar-2006 8:34 tion use: experiencing side effects (went off antidepressants without tapering off of them.). Patient sleeps 3 hours per night. Nutrition: poor nutrition. The medical issues the patient is following up for include blood sugar issues ,depression ,high blood pressure and high cholesterol. , [ADDITIONAL REASON] Depression - The onset of the depression has been gradual and has been occurring in a persistent pattern for hours. The course has been increasing. The depression is described as feeling blue ,sad ,nervous and tired. 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 Note for Depression: pt has been to crisis center 3x recently. , [ADDITIONAL REASON] Anxiety - The onset of the anxiety has been sudden and has been occurring in a p ersistent pattern for hours. The course has been increasing. The anxiety is characterized as nervousness. The symptoms have been associated with chest pain ,feeling of sadness ,headache ,insomnia ,nause a ,panic attack ,suicidal thoughts and sweating. Encounter Diagnosis: Abnormal Glucose Tolerance Test (790.29) [facility] Historical Summary On: 11-Mar-2006 14:51 [facility] End: 11-Mar-2006 15:12 Payers MedicareMedical [facility]; a guarantor
--- OUTSIDE RECORDS SUMMARY | 2018-09-20 11:49 | XMS RPT_ITS | Continuity of Care Document ---
:1950 Author Organization [facility] Address [address] [place] [address] Phone Care Team Providers Name Role Phone Addison LADONNADafne Unavailable Juan Catherine Unavailable Rogelio Granado Unavailable [facility] Unavailable Lindsey Cheek Unavailable Unavailable Gloria Hammer [...] days Quantity: 1 {Box} Refills: 3 Ordered:17-May-2018 aDfne Jaime CNP, CNP, Mary E Start : [...] Quantity: 20 {Capsule} Refills: 0 Ordered:15-Jun-2014 Tgezraalcon DIVISION OPERATIONS MANAGER, Dafne Kriss DIVISION OPERATIONS MANAGER, Radha Start : 15-Jun-2014 End : 25-Jun-2014 [...] Inactive Comments:05/23/07 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, 10MG (Oral Tablet) 1 tab Tablet [...] : 09-Dec-2017 End : 19-Jan-2018 Inactive [place] 31G X 6 MM Miscellaneous uad Misc [...] 24-Aug-2011 End : 03-Feb-2012 Inactive VITAMIN D, [id number] (Oral Capsule) 1 (one) Capsule q week [...] JHAVERI Anahi End : 12-Mar-2006 Discontinued Ergocalciferol 96816 UNIT Oral Capsule 1 (one) Capsule Capsule twice weekly for 0 days Quantity: 24 {QS} Refills: 0 Ordered:24-Mar-2017 Harman SILVA, Glorai Start : 21-Aug-2016 End : 24-Mar-2017 Discontinued [...] Quantity: 90 {QS} Refills: 3 Ordered:13-May-2016 Slarb HELMET HAT PUNCHER, Gloria Start : 13-Feb-2016 End : 13-May-2016 [...] sx Completed Comments: 12-03-06 Date Value Details 06-May-2018 Chest without Contrast Result: Comments: See Note; NOTES: [facility] Imaging Services [address] [place] [address] Chest without Contrast MR#: [id number] Acct: [id number] Name: IMANI VINSON Rep #: [id number] : 1950 F 67 From: Marine Tolliver MD PCP: Dafne Jaime NP Status: REG CLI Study: Chest without Contrast Date of Exam: 05/06/18 Exam# [id number] Ordering Dr: Dafne Jaime SOFTWARE IMPLEMENTATION PROJECT MANAGER-C STUDY: LOW DOSE CT LUNG CANCER SCREENING REASON FOR EXAM: Female, 67 years old. OBSTRUCTIVE PULMONARY DISEASE, PT STATED HX OF SMOKING UP TO 4 PACKS PER DAY X40+ years, QUIT S20MARTZ AGO, COPD, ASTHMA RADIATION DOSAG E (If [...] as category 2, and individuals returned to [facility] in 12 months. Category 4X: Category [...] Service support , CC: Dafne Jaime NP Tobacco Baler: Signed 05-May-2018 Spirometry PFT Testing Result: Comments: See Note; NOTES: [facility] Pulmonary Services/Neurology [address] [place] [address] MR#: [id number] Acct: [id number] Name: IMANI VINSON Rep #: [id number] : 0 1950 67 From: Jordy Lion DO Referring Dr: Dafne Jaime NP Status: REG CLI Ordering Dr: Date: Location: [facility] Sex: F C Spirometry PFT Testing Spirometry [...] Dictated: 05/05/18 1257 Date Transcribed: 05/05/18 1257 Tobacco Baler: DB Signed 25-Jan-2018 12 Lead Electrocardiogram Result: Comments: See Note; NOTES: [facility] Cardiovascular Services [address] [place] [address] 12 Lead EKG 01/22/184 MR#: [id number] Acct: [id number] Name: IMANI VINSON Re p #: [id number] : 1950 67 From: Ramiro Moreno MD [...] Normal sinus rhythm Normal ECG Confirmed by RAMIRO MONSON MD ([id number]), make up editor RUBI VILLATORO (56) on 01/25/2018 3:09:19 PM Referred By: Confirmed By:RAMIRO MORENO MD 01/25/18 1509 Date Ramiro Moreno MD CC: Dafne Jaime NP; Tyson Hernandez DO Signed 24-Jan-2018 Emergency Department Summary Result: Comments: See Note; NOTES: [facility] Medical Records Department [address] [facility] [place] [address] Emergency Department Summary 01/22/18 2318 MR#: [id number] Acct: [id number] Name: IMANI VINSON Rep #: [id number] : 1950 67 From: Tyson Hernandez DO PCP: Dafne Jaime NP Status: DEP ER [...] 2. Hypertension This note was generated with [employer] dictation software. It may contain incorrect words, [...] your Primary Care Provider. Call [facility] ([phone]) or report to the closest Emergency Room. Call 911 if necessary. 01/24/18 0026 <Electronically signed by Tyson Hernandez DO> Date _ Tyson Hernandez DO Cosigner Signature (If Indicated): Date CC: Dafne Jaime SOFTWARE IMPLEMENTATION PROJECT MANAGER 30-Dec-2017 12 Lead Electrocardiogram Result: Comments: See Note; NOTES: [facility] Cardiovascular Services [address] [place] [address] 12 Lead EKG 12/25/17 1326 MR#: [id number] Acct: [id number] Name: IMANI VINSON p #: [id number] : 1950 67 From: Ramiro Moreno MD [...] Confirme d by RAMIRO MORENO MD ([id number]), make up editor RUBI VILLATORO (56) on 12/30/2017 3:06:27 PM Referred By: Yoselin Oconnell Confirmed By:RAMIRO MORENO MD 12/30/17 1506 Date _ Ramiro Moreno MD CC: Dafne Jaime NP; Ivanna Puri MD Signed 25-Dec-2017 Emergency Department Summary Result: Comments: See Note; NOTES: [facility] Medical Records Department [address] [place] [address] Emergency Department Summary 12/25/17 1538 MR#: [id number] Acct: [id number] Name: IMANI VINSON Rep #: [id number] : 1950 67 From: Ivanna Puri MD [...] Cephalgia, improved This note was generated with [employer] dictation software. It may contain inco rrect [...] contact your Primary Ca re Provider. Call [facility] ([phone]) or report to the closest Emergency Room. Call 911 if necessary. 12/25/17 1636 <Electronically signed by Ivanna Puri MD> Date Ivanna Puri MD Cosigner Signature (If Indicated): Date CC: Dafne Jaime NP 25-Dec-2017 Discharge Instruction Result: Comments: See Note; NOTES: [facility] Medical Records Department [address] [place] [address] Discharge Instruction 12/25/17 1542 MR#: [id number] Acct: [id number] Name: IMANI VINSON Rep #: [id number] : 1950 67 From: Ivanna Puri MD [...] your Primary Care Provider. Call [facility] ([phone]) or report to the closest Emergency Room. Call 911 if necessary. 12/25/17 1543 <Electronically signed by Ivanna Puri MD> D ate Ivanna Puri MD Cosigner Signature (If Indicated): Date CC: Dafne Jaime NP 25-Dec-2017 Chest 1 View (Portable) Result: Comments: See Note; NOTES: [facility] Imaging Services [address] [place] [address] Chest 1 View (Portable) MR#: [id number] Acct: [id number] Name: IMANI VINSON Rep #: [id number] : 1950 F 67 From: Walter Corbin MD PCP: Dafne Jaime NP Status: REG ER Study: Chest 1 View (Portable) Date of Exam: 12/25/17 Exam# [id number] Ordering Dr: Ivanna Puri MD STUDY: X-RAY [...] at 14:22 EDT Tel , Service support [phone], RAD/Chest 1 View (Portable) CC: Dafne Jaime NP; Ivanna Puri MD Tobacco Baler: Signed 23-Dec-2017 Abdomen/Pelvis without Cont Result: Comments: See Note; NOTES: [facility] Imaging Services [address] [place] [address] Abdomen/Pelvis without Cont MR#: [id number] Acct: [id number] Name: IMANI VINSON Naveen Rep #: [id number] : 1950 F 67 From: Leobardo Mckenzie MD PCP: Dafne Jaime NP Status: REG CLI Study: Abdomen/Pelvis without Cont Date of Exam: 12/23/17 Exam# [id number] Ordering Dr: Yoselin Oconnell SOFTWARE IMPLEMENTATION PROJECT MANAGER-C STUDY: CT ABDOMEN AND PELVIS WITHOUT CONTRAST [...] Leobardo Mckenzie MD at 12:50 EDT Tel [phone], Service support , Fax CC: Dafne Jaime SOFTWARE IMPLEMENTATION PROJECT MANAGER; MARCO ANTONIO Oconnell Tobacco Baler: Signed 12-Feb-2017 Chest without Contrast Result: Comments: See Note; NOTES: [facility] Imaging Services [address] [place] [address] Chest without Contrast MR#: [id number] Acct: [id number] Name: IMANI VINSON Rep #: [id number] : 1950 F 66 From: Ace Olivia DO PCP: Dafne Jaime Status: REG CLI Study: Chest without Contrast Date of Exam: 02/12/17 Exam# [id number] Ordering Dr: Rogelio Granado MD STUDY: CT [...] Ace Olivia DO at 11:21 EDT Tel [phone], Venafi e support , CC: Dafne Jaime; Rogelio Granado MD Tobacco Baler: Signed 19-Jan-2017 Chest PA and Lateral Result: Comments: See Note; NOTES: [facility] Imaging Services [address] [place] [address] Verdana 4d Chest PA and Lateral MR#: [id number] Acct: [id number] Name: IMANI VINSON Rep #: [id number] : 1950 F 66 From: Leobardo Mckenzie MD PCP: Dafne Jaime Status: REG CLI Study: Chest PA and Lateral Date of Exam: 01/19/17 Exam# [id number] Ordering Dr: Rogelio Granado MD ST UDY: [...] Leobardo Mckenzie MD at 12:43 EDT Tel [phone], Service support [phone], CC: Dafne Jaime; Rogelio Granado MD Tobacco Baler: Signed 17-Oct-2015 Spirometry (60893) Result: 20-Aug-2015 Chest PA and Lateral Result: Comments: See Note; NOTES: [facility] Imaging Services [address] [place] [address] Verdana 4d Chest PA and Lateral MR#: [id number] Acct: [id number] Name: IMANI FRASER Rep #: [id number] : 1950 F 64 From: Leobardo Mckenzie MD PCP: Jackie Christina DO Status: REG CLI Study: Chest PA and Lateral Date of Exam: 08/20/15 Exam# [id number] Ordering Dr: Dafne Jaime STUDY: X-RAY CHEST [...] Leobardo Mckenzie MD at 13:08 EST Tel [phone], Service support [phone] , RAD/Chest PA and Lateral IMPRESSION: Hyperinflation. No acute abnormality is seen. Electronically Signed: Leobardo Mckenzie MD at 13:08 EST Tel [phone], Service support [phone], CC: Dafne Jaime; Jackie Christina DO Tobacco Baler: Signed 06-Jun-2015 Chest PA and Lateral Result: Comments: See Note; NOTES: [facility] Imaging Services [address] [place] [address] Verdana 4d Chest PA and Lateral MR#: [id number] Acct: [id number] Name: IMANI FRASER Rep #: [id number] : 1950 F 64 From: Leobardo Mckenzie MD PCP: Jackie Christina DO Status: REG CLI Study: Chest PA and Lateral Date of Exam: 06/06/15 Exam# [id number] Ordering Dr: Giovani Hutchins STUDY: X-RAY CHEST [...] Leobardo Mckenzie MD at 14:52 EST Tel [phone], Service support [phone], 0056 RAD/Chest PA and Lateral IMPRESSION: Hyp erinflation. Electronically Signed: Leobardo Mckenzie MD at 14:52 EST Tel [phone], Service support [phone], CC: Jackie Christina DO; Nga Hutchins Tobacco Baler: Signed 06-Aug-2014 Chest PA and Lateral Result: Comments: See Note; NOTES: [facility] Imaging Services [address] [place] [address] Radiology Report MR#: [id number] Acct: [id number] Name: IMANI VINSON Rep #: [id number] : 1950 F 63 From: Leobardo Mckenzie MD PCP: Jackie Christina DO Status: REG CLI Study: Chest PA and Lateral Date of Exam: 08/06/14 Exam# [id number] Ordering Dr: Dafne Jaime STUDY: X-RAY CHEST [...] Leobardo Mckenzie MD at 13:03 EST Tel [phone], Service support [phone], CC: Danfe Christina DO Tobacco Baler: Signed 05-May-2013 Bilat Scrn Digital & CAD Result: Comments: See Note; NOTES: [facility] Imaging Services [address] [place] [address] Breast Imaging Report MR#: [id number] Acct: [id number] Name: VINSONIMANI HAYWOOD Rep #: [id number] : 1950 F 62 From: Leobardo Mckenzie MD PCP: Status: PRE CLI Exam# [id number] Ordering Dr: Jackie Christina DO MAMMOGRAPHY - [...] 05, 2013 at 2:48:1 1 PM EST [phone] Electronically Signed GP/GP If you are the referring physician and would like to consult with the radiologist who provided this interpretation, please contact Leobardo thompson M.D. at [phone]. If this radiologist is unavailable, you will be directed to another radiologist to assist. If you are a patient with a question regarding this report, please contact you r referring physician directly. Professional Interpretation Provided By: [employer], Phone , These documents contain legally protected [...] of these documents. CC: Jackie Christina DO Tobacco Baler: Signed Immunization Name Dates Details Pneumococcal (2 [...] kg/m2 Body Surface Area Calculated 2.25 m2 48-Jmg-898622:32 Temperature 97.4 f Comments: Method: Temporal Pulse [...] kg/m2 Body Surface Area Calculated 2.26 m2 :40 Temperature 97.1 f Pulse 68 /min Comments: [...] Results Date Description Value Details :00 CALCIFEDIOL (55334) Comments: PERFORMED BY: [employer] [place] [id number] Vitamin D, 25-Hydroxy 32.4 ng/mL (Normal) Range: 30.0-100.0 Comments: Vitamin D deficiency has been defined by the [place] ofMedicine and an Endocrine Society practice guideline as alevel of serum 25-OH vitamin D less than 20 ng/mL (1,2).The Endocrine Society went on to further define vitamin Dinsufficiency as a level between 21 and 29 ng/mL (2).1. IOM ([place] of Medicine). 2010. Dietary reference intakes for calcium and D. [place]: The National Academies Press.2. Eleni MF, Lorne NC, Dayron WALTON, et al. Evaluation, treatment, and prevention of vitamin D deficiency: an Endocrine Society clinical practice guideline. JCEM. 2010; 96(7):1911-30. 93-Rlc-148144:25 PARATHORMONE (54496) Comments: PATIENT NOT FASTINGPERFORMED BY: [employer] [place] [id number] PTH, Intact 36 pg/mL (Normal) Range: 15-65 7-Ddp-347087:37 Lipid Panel (99788) Comments: PATIENT WAS FASTINGPERFORMED BY: [facility] MexicoJlzrpw7518 [facility] [id number] LDL/HDL Ratio 2.0 {ratio} (Normal) Range: 0.0-3.2 Comments: LDL/HDL Ratio Men Women 1/2 Avg.Risk 1.0 1.5 Av g.Risk 3.6 3.2 2X Avg.Risk 6.2 5.0 3X Avg.Risk 8.0 6.1 LDL Cholesterol Calc 94 mg/dL (Normal) Range: 0-99 VLDL Cholesterol Edgardo 37 mg/dL (Normal) Range: 5-40 HDL Cholesterol 46 mg/dL (Normal) Triglycerides 186 mg/dL (Abnormal) Range: 0-149 Cholesterol, Total 177 mg/dL (Normal) Range: 100-199 6-Fsl-458552:37 MICROALBUMIN: CREATININE RATIO Comments: PATIENT WAS FASTINGPERFORMED BY: [facility]Advanced [facility] Southern New MexicoCqueaf9384 [facility] [id number] (72632) AND (94105) Alb/Creat Ratio 5.9 {mg/g_creat} (Normal) Range: 0.0-30.0 Comments: Normal: 0.0 - 30.0 Albuminuria: 31.0 - 300.0 Clinical albuminuria: >300.0 Albumin, Urine 7.5 ug/mL (Normal) Creatinine, Urine 127.1 mg/dL (Normal) 3-Rfp-355921:37 TSH (22715) Comments: PATIENT WAS FASTINGPERFORMED BY: [facility] Southern New MexicoSldltl2270 [facility] [id number] TSH 1.970 {uIU/mL} (Normal) Range: 0.450-4.500 9-Rvu-660404:37 CBC, Platelets & Auto Diff Comments: PATIENT WAS FASTINGPERFORMED BY: [facility]imotoAdvanced [facility] Southern New MexicoVjhowz0338 [facility] [id number] (69904) Immature Grans (Abs) 0.0 {x10E3/uL} (Normal) Range: [...] 3.77-5.28 WBC 7.1 {x10E3/uL} (Normal) Range: 3.4-10.8 1-Bcw-382713:37 Metabolic Panel, Comprehensive Comments: PATIENT WAS FASTINGPERFORMED BY: [facility]6370 [facility] [id number] (51622) ALT (SGPT) 14 [iU]/L (Normal) Range: 0-32 [...] (Normal) Range: 65-99 :50 HgA1C , Office (41732) HgA1C , Office 6.4 % (Normal) Range: 4.6 - 7.1 :50 Blood Glucose , Office (11716) Blood Glucose , Office 137 (Normal) :51 CALCIFEDIOL (39054) Comments: PATIENT NOT FASTINGPERFORMED BY: [facility]6370 [facility] [id number] Vitamin D, 25-Hydroxy 35.3 ng/mL (Normal) Range: 30.0-100.0 Comments: Vitamin D deficiency has been defined by the [place] of[facility], [place] and an Endocrine Society practice guideline as alevel of serum 25-OH vitamin D less than 20 ng/mL (1,2).The Endocrine Society went on to further define vitamin Dinsufficiency as a level between 21 and 29 ng/mL (2).1. IOM ([place] of Medicine). 2010. Dietary reference intakes for calcium and D. [place]: The National Academies Press.2. Eleni MF, Lorne MORTON, Dayron WALTON, et al. Evaluation, treatment, and prevention of vitamin D deficiency: an Endocrine Society clinical practice guideline. JCEM. 2010; 96(7):1911-30. 5-Xll-561028:43 METANEPHRINES - URINE (44580) Comments: PATIENT NOT FASTINGPERFORMED BY: [address] [id number] Metanephrine, U,24hr 120 {ug/24_hr} (Normal) Range: 45-290 Comments: (Hypertensive) >17 years 11 months: 35 - 460 Metanephrine, Ur 60 ug/L (Normal) Normetanephr.,U,24h 404 {ug/24_hr} (Normal) Range: 82-500 Comments: (Hypertensive) >17 years 11 months: 110 - 1050 Normetanephrine, Ur 202 ug/L (Normal) 1-Apy-219890:43 CATECHOLAMINES TOTAL, URINE Comments: PATIENT NOT FASTINGPERFORMED BY: [address] [id number] Information: [id number] (40610) Dopamine, Ur, 24hr 356 {ug/24_hr} (Normal) Range: 0-510 Dopamine, Urine 178 ug/L (Normal) Norepinephrine,U,24h 78 {ug/24_hr} (Normal) Range: 0-135 Norepinephrine, Ur 39 ug/L (Normal) Epinephrine, U, 24hr 4 {ug/24_hr} (Normal) Range: 0-20 Epinephrine, Urine 2 ug/L (Normal) 1-Wvu-192530:43 URINE VMA (30342) Comments: PATIENT NOT FASTINGPERFORMED BY: [address] [id number] VMA, Urine, 24hr 5.0 {mg/24_hr} (Normal) Range: 0.0-7.5 Comments: This test was developed and its performance characteristicsdetermined by [employer]. It has not been cleared or approvedby the Food and Drug Administration. VMA, Urine 2.5 mg/L (Normal) 60-Mrd-529013:44 URINE MEHREEN CULTURE-IDENTIFICATN Comments: PERFORMED BY: TARAS [facility]6370 [facility] [id number] Information: SRC:KAMI (35725) Result 1 MUG (Normal) Comments: Mixed urogenital flora1,000 Colonies/mL Urine Culture,Comprehensive Final report (Normal) 46-Flz-507587:41 Urinalysis, Office (81504) UA - LEUKOCYTE ESTERASE Moderate (Normal) UA - NITRITE Negative (Normal) URINE UROBILINGN SUNNY TIMED Normal mg/dL (Normal) UA - PROTEIN Negative mg/dL (Normal) UA - PH 6.0 (Normal) UA - BLOOD Hemolyzed Trace (Normal) UA - SPECIFIC GRAVITY 1.020 (Normal) UA - KETONES Negative mg/dL (Normal) UA - BILIRUBIN Negative (Normal) UA - GLUCOSE Negative (Normal) 56-Hbf-610387:10 CBC & PLATELETS (AUTO) Comments: PATIENT NOT FASTINGPERFORMED BY: [employer] LabPandora.TVLourdes Medical Center of Burlington CountyVzoamn8192 [facility] [id number] (34579) Platelets 270 {x10E3/uL} (Normal) Range: 150-379 RDW 13.8 % (Normal) Range: 12.3-15.4 MCHC 33.7 g/dL (Normal) Range: 31.5-35.7 MCH 29.7 pg (Normal) Range: 26.6-33.0 MCV 88 fL (Normal) Range: 79-97 Hematocrit 40.1 % (Normal) Range: 34.0-46.6 Hemoglobin 13.5 g/dL (Normal) Range: 11.1-15.9 RBC 4.54 {x10E6/uL} (Normal) Range: 3.77-5.28 WBC 6.8 {x10E3/uL} (Normal) Range: 3.4-10.8 12-Qli-193405:10 RENAL FUNCTION PANEL (69018) Comments: PATIENT NOT FASTINGPERFORMED BY: [facility] Uqbzzm4066 [facility] [id number] Albumin 3.8 g/dL (Normal) Range: 3.6-4.8 Phosphorus [...] 8-27 Glucose 133 mg/dL (Abnormal) Range: 65-99 46-Qpt-607056:10 PARATHORMONE (85835) Comments: PATIENT NOT FASTINGPERFORMED BY: [facility] Ytavsj8059 [facility] [id number] PTH, Intact 32 pg/mL (Normal) Range: 15-65 00-Mhr-021166:00 Urinalysis, Complete Comments: How was Urine Obtained? PHARMACY SERVICES DIRECTOR [facility] [address] [place], [address] MUCUS, URINE 0 SEEN {/hpf} [...] (Normal) CLARITY Clear (Normal) COLOR Yellow (Normal) 82-Wee-227803:04 CBC W/Diff, Automated Comments: [facility] [address] [place], [address] PLT EST ADEQUATE (Normal) SMEAR [...] 4.2-5.4 WBC 9.7 K/mm3 (Normal) Range: 4.4-11.0 11-Uyb-542940:04 Comprehensive Metabolic Profil Comments: [facility] [address] [place], [address] GAP 8 (Normal) Range: 5-15 CO2 26.0 [...] A.D.A. criteria.Please note revised GLUCOSE reference range vohvekuek62/02/2018. 80-Ker-863451:04 Lipase Comments: [facility] Mvixwokrxr8769 [facility] [place], [place], [id number] LIPASE 346 U/L (Normal) Range: 73-393 16-Yly-459775:04 Troponin-I Comments: [facility] Jnrfapuopr9547 [facility]. [place], [place], [id number] TROPONIN-I < 0.015 ng/mL (Normal) Comments: TROPONIN-I EXPECTED VALUES <0.045 Negative 0.045 - 0.590 Consistent with Cardiac Damage > OR = 0.600 Critical Value Not every elevated troponin is indicative of NM. T hesevalues should be used with clinical judgement in examiningthe patient's clinical picture for diagnosis. To establisha diagnosis of NM versus myocardial injury, there must be ademonstrated rise and/ or fall in the troponin values, inaddition to ischemic symptoms, EKG changes, new regionalwall motion abnormality, and/or angiographical evidence. PLEASE NOTE: REFERENCE RANGES EDITED 11/08/1712-Jan-201816-Cvp-820318:27 TSH (THYROID STIMULATING Comments: January 12; PATIENT WAS FASTINGPERFORMED BY: TARAS [facility]6370 [facility] [id number] HORMONE) (39890) TSH 1.920 {uIU/mL} (Normal) Range: 0.450-4.500 79-Lyo-436823:27 CBC & PLATELETS (AUTO) Comments: after January 12; PATIENT WAS FASTINGPERFORMED BY: [place] 6163370 [facility] [id number] Information: [id number] (69487) Platelets 288 {x10E3/uL} (Normal) Range: 150-379 RDW 13.8 % (Normal) Range: 12.3-15.4 MCHC 34.8 g/dL (Normal) Range: 31.5-35.7 MCH 30.8 pg (Normal) Range: 26.6-33.0 MCV 88 fL (Normal) Range: 79-97 Hematocrit 40.2 % (Normal) Range: 34.0-46.6 Hemoglobin 14.0 g/dL (Normal) Range: 11.1-15.9 RBC 4.55 {x10E6/uL} (Normal) Range: 3.77-5.28 WBC 6.2 {x10E3/uL} (Normal) Range: 3.4-10.8 24-Tvn-926315:27 LIPID PANEL (39291) Comments: after January 12; PATIENT WAS FASTINGPERFORMED BY: [facility]6370 [facility] [id number] LDL/HDL Ratio 2.1 {ratio} (Normal) Range: 0.0-3.2 Comments: LDL/HDL Ratio Men Women 1/2 Avg.Risk 1.0 1.5 Av g.Risk 3.6 3.2 2X Avg.Risk 6.2 5.0 3X Avg.Risk 8.0 6.1 LDL Cholesterol Calc 88 mg/dL (Normal) Range: 0-99 VLDL Cholesterol Edgardo 46 mg/dL (Abnormal) Range: 5-40 HDL Cholesterol 42 mg/dL (Normal) Triglycerides 230 mg/dL (Abnormal) Range: 0-149 Cholesterol, Total 176 mg/dL (Normal) Range: 100-199 00-Par-475509:27 HGB A1C (37915) Comments: do after January 12; PATIENT WAS FASTINGPERFORMED BY: [facility] Yaizgv3076 [facility] [place] [id number] Hemoglobin A1c 7.6 % (Abnormal) Range: 4.8-5.6 Comments: . Pre-diabetes: 5.7 - 6.4 Diabetes: >6.4 Glycemic control for adults with diabetes: <7.0 77-Hcm-302854:30 Basic Metabolic Profile (BMP) Comments: [facility] [address] [place], [place], [id number] GAP 8 (Normal) Range: 5-15 CO2 25.0 [...] A.D.A. criteria.Please note revised GLUCOSE reference range xeitjxnlf21/02/2018. 49-Sks-374243:30 Carboxyhemoglobin Frac (CO) Comments: [facility] [address] [place], [place], [phone] COHb 2.1 % (Abnormal) Range: 0.0-1.5 Comments: * NON-SMOKER RANGE 1.6 - 5.0% * LIGHT SMOKER RANGE 5.1 - 9.0% * HEAVY SMOKER RANGE 88-Cmh-532310:30 CBC W/Diff, Automated Comments: [facility] [address] [place], [place], [phone] Absolute Lymph 0.66 {X10_3/ul} (Abnormal) Range: 0.83-4.51 [...] 4.2-5.4 WBC 12.9 K/mm3 (Abnormal) Range: 4.4-11.0 75-Drc-434081:30 Lipase Comments: [facility] [address] [place], [place], [phone] LIPASE 126 U/L (Normal) Range: 73-393 95-Eqc-773797:30 Liver Profile Comments: [facility] [address] [place], [place], [id number] D BILI 0.13 mg/dL (Normal) Range: 0.00-0.30 T BILI 0.50 mg/dL (Normal) Range: 0.20-1.00 ALT 32 U/L (Normal) Range: 13-56 ALK P 154 U/L (Abnormal) Range: 45-117 AST 25 U/L (Normal) Range: 15-37 GLOB 4.2 g/dL (Normal) Range: 2.2-4.2 ALB 3.5 g/dL (Normal) Range: 3.2-5.0 T PROT 7.7 g/dL (Normal) Range: 6.4-8.2 85-Bta-664264:30 Urinalysis, Complete Comments: Order Date: 12/25/17How was Urine Obtained? [facility] [address] [place], [place], [id number] MUCUS, URINE 0 SEEN {/hpf} (Normal) BACTERIA [...] (Abnormal) CLARITY Clear (Normal) COLOR Yellow (Normal) 21-Ahc-091536:17 Urinalysis, Office (60657) UA - LEUKOCYTE ESTERASE Negative (Normal) UA - NITRITE Negative (Normal) URINE UROBILINGN SUNNY TIMED Normal mg/dL (Normal) UA - PROTEIN Negative mg/dL (Normal) UA - PH 5.0 (Normal) Comments: 5.5 UA - BLOOD Hemolyzed Trace (Normal) UA - SPECIFIC GRAVITY 1.005 (Normal) UA - KETONES Negative mg/dL (Normal) UA - BILIRUBIN Negative (Normal) UA - GLUCOSE 500 (Abnormal) 93-Sqa-808430:15 URINE MEHREEN CULTURE-SUNNY COL Comments: PATIENT NOT FASTINGPERFORMED BY: Animoto Dahgyl7219 [facility] [id number] Information: SRC:UC COUNT (86512) Result 1 MUG (Normal) Comments: Mixed urogenital flora10,000-25,000 colony forming units per mL Urine Final report (Normal) Culture,Comprehensive 39-Kvj-571813:48 URINE MEHREEN CULTURE-IDENTIFICATN Comments: PATIENT NOT FASTINGPERFORMED BY: Animoto Zfhnqi0420 [facility] [id number] Information: SRC:UC (41578) Antimicrobial MIHEAD (Normal) Comments: S = Susceptible; [...] mL (Abnormal) Urine Final report Culture,Comprehensive (Abnormal) 91-Ffm-778143:24 Urinalysis, Office (88615) UA - LEUKOCYTE ESTERASE Small (Normal) UA - NITRITE Negative (Normal) URINE UROBILINGN SUNNY TIMED Normal mg/dL (Normal) UA - PROTEIN Trace mg/dL (Normal) UA - PH 6 (Abnormal) UA - BLOOD Hemolyzed Large (Normal) UA - SPECIFIC GRAVITY 1.015 (Normal) UA - KETONES Negative mg/dL (Normal) UA - BILIRUBIN Negative (Normal) UA - GLUCOSE 500 (Abnormal) 53-Idr-954876:33 Blood Glucose , Office (69143) Blood Glucose , Office 159 (Normal) 50-Vgt-293200:33 HgA1C , Office (14115) HgA1C , Office 7.0 % (Normal) Range: 4.6 - 7.1 81-Ktw-757487:10 CBC, Platelets & Auto Diff Comments: PATIENT WAS FASTINGPERFORMED BY: AnimotoLourdes Medical Center of Burlington CountyXhbkqy1799 [facility] [id number] (04872) Immature Grans (Abs) 0.0 {x10E3/uL} (Normal) Range: [...] 3.77-5.28 WBC 7.0 {x10E3/uL} (Normal) Range: 3.4-10.8 62-Opy-681965:10 HGB A1C (84754) Comments: PATIENT WAS FASTINGPERFORMED BY: [facility]6370 [facility] [id number] Hemoglobin A1c 7.4 % (Abnormal) Range: 4.8-5.6 Comments: . Pre-diabetes: 5.7 - 6.4 Diabetes: >6.4 Glycemic control for adults with diabetes: <7.0 11-Mmp-067148:10 LIPID PANEL (40351) Comments: PATIENT WAS FASTINGPERFORMED BY: i-driveCoLourdes Medical Center of Burlington CountyLyoaln3919 [facility] [id number] LDL/HDL Ratio 2.4 {ratio} (Normal) Range: 0.0-3.2 Comments: LDL/HDL Ratio Men Women 1/2 Avg.Risk 1.0 1.5 Av g.Risk 3.6 3.2 2X Avg.Risk 6.2 5.0 3X Avg.Risk 8.0 6.1 LDL Cholesterol Calc 107 mg/dL (Abnormal) Range: 0-99 VLDL Cholesterol Edgardo 28 mg/dL (Normal) Range: 5-40 HDL Cholesterol 45 mg/dL (Normal) Triglycerides 138 mg/dL (Normal) Range: 0-149 Cholesterol, Total 180 mg/dL (Normal) Range: 100-199 46-Gvd-222262:10 Metabolic Panel, Comprehensive Comments: PATIENT WAS FASTINGPERFORMED BY: ConnectSolutionslin6370 [facility] [id number] (52316) ALT (SGPT) 15 [iU]/L (Normal) Range: 0-32 [...] 8-27 Glucose 141 mg/dL (Abnormal) Range: 65-99 20-Pts-032065:10 MICROALBUMIN: CREATININE RATIO Comments: PATIENT WAS FASTINGPERFORMED BY: Animoto Pskupe4820 [facility] [id number] (85951) AND (39527) Alb/Creat Ratio <3.8 {mg/g_creat} (Normal) Range: 0.0-30.0 Albumin, Urine <3.0 ug/mL (Normal) Creatinine, Urine 78.1 mg/dL (Normal) 61-Tsu-485721:10 TSH (22099) Comments: PATIENT WAS FASTINGPERFORMED BY: Animoto Qclwnf1007 [facility] [id number] TSH 2.160 {uIU/mL} (Normal) Range: 0.450-4.500 69-Hut-835112:10 URINALYSIS W/O MICRO (29282) Comments: PATIENT WAS FASTINGPERFORMED BY: AnimotoLourdes Medical Center of Burlington CountyFigxsa2492 [facility] [id number] Microscopic Examination MICNIP (Normal) Comments: Microscopic not indicated and not performed. Nitrite, Urine Negative (Normal) Urobilinogen,Semi-Qn 0.2 mg/dL (Normal) Range: 0.2-1.0 Bilirubin Negative (Normal) Occult Blood Negative (Normal) Ketones Negative (Normal) Glucose 3+ (Abnormal) Protein Negative (Normal) WBC Esterase Negative (Normal) Appearance Clear (Normal) Urine-Color Yellow (Normal) pH 5.5 (Normal) Range: 5.0-7.5 Specific [place] >=1.030 (Abnormal) Range: 1.005-1.030 02-Lcr-131964:17 HGB A1C (65588) Comments: today; PATIENT NOT FASTINGPERFORMED BY: i-driveAspirus [facility] Hospital6370 [facility] [id number] Hemoglobin A1c 7.4 % (Abnormal) Range: 4.8-5.6 Comments: . Pre-diabetes: 5.7 - 6.4 Diabetes: >6.4 Glycemic control for adults with diabetes: <7.0 09-Pns-339910:14 TSH (THYROID STIMULATING Comments: PATIENT WAS FASTINGPERFORMED BY: [facility]6370 [facility] [id number] HORMONE) (53741) TSH 2.750 {uIU/mL} (Normal) Range: 0.450-4.500 75-Kzp-210094:14 Lipid Panel (28228) Comments: PATIENT WAS FASTINGPERFORMED BY: LabAspirus [facility] Hospital6370 [facility] [id number] LDL/HDL Ratio 2.0 {ratio_units} (Normal) Range: 0.0-3.2 Comments: LDL/HDL Ratio Men Women 1/2 Avg.Risk 1.0 1.5 Av g.Risk 3.6 3.2 2X Avg.Risk 6.2 5.0 3X Avg.Risk 8.0 6.1 LDL Cholesterol Calc 96 mg/dL (Normal) Range: 0-99 VLDL Cholesterol Edgardo 22 mg/dL (Normal) Range: 5-40 HDL Cholesterol 49 mg/dL (Normal) Triglycerides 110 mg/dL (Normal) Range: 0-149 Cholesterol, Total 167 mg/dL (Normal) Range: 100-199 88-Rsb-817142:14 CALCIFEDIOL (92240) Comments: PATIENT WAS FASTINGPERFORMED BY: [facility]6370 [facility] [id number] Vitamin D, 25-Hydroxy 30.7 ng/mL (Normal) Range: 30.0-100.0 Comments: Vitamin D deficiency has been defined by the [place] ofMedicine and an Endocrine Society practice guideline as alevel of serum 25-OH vitamin D less than 20 ng/mL (1,2).The Endocrine Society went on to further define vitamin Dinsufficiency as a level between 21 and 29 ng/mL (2).1. IOM ([place] of Medicine). 2010. Dietary reference intakes for calcium and D. [place]: The National Academies Press.2. Eleni MF, Lorne MORTON, Dayron WALTON, et al. Evaluation, treatment, and prevention of vitamin D deficiency: an Endocrine Society clinical practice guideline. JCEM. 2010; 96(7):1911-30. 42-Azt-447633:14 Metabolic Panel, Comprehensive Comments: PATIENT WAS FASTINGPERFORMED BY: LabCoLourdes Medical Center of Burlington CountyPduomj3270 [facility] [id number] (70727) ALT (SGPT) 11 [iU]/L (Normal) Range: 0-32 [...] Glucose, Serum 150 mg/dL (Abnormal) Range: 65-99 37-Mqu-339159:14 HGB A1C (21584) Comments: PATIENT WAS FASTINGPERFORMED BY: LabCoSemtek Innovative Solutions Lkndes5973 [facility] [id number] Hemoglobin A1c 6.3 % (Abnormal) Range: 4.8-5.6 Comments: . Pre-diabetes: 5.7 - 6.4 Diabetes: >6.4 Glycemic control for adults with diabetes: <7.0; ADDENDA: OV 19-Jan-201712:28 Angiotensin Convert Enzyme Comments: [facility] (refer to report for specific site)refer to report for address and phone number JHONNY [phone] U/L (Normal) Range: 14-82 Comments: Performed at: - [facility] [id number] Director: Jarrell Collazo PhD, Phone: [phone]; ADDENDA: Dr Granado 96-Piy-226543:28 Erythrocyte Sed Rate Comments: [facility] Ygsheohkdj[address] [place], [place], [address] SED RATE 6 mm/h (Normal) Range: 0-30 10-Mhw-988580:35 CBC, Platelets & Auto Diff Comments: PATIENT NOT FASTINGPERFORMED BY: Lab[address] [id number] (82570) Immature Grans (Abs) 0.0 {x10E3/uL} (Normal) Range: [...] {x10E3/uL} (Normal) Range: 3.4-10.8 :35 HGB A1C (98229) Comments: PATIENT NOT FASTINGPERFORMED BY: Animoto [employer] [facility] [id number] Hemoglobin A1c 6.7 % (Abnormal) Range: 4.8-5.6 Comments: . Pre-diabetes: 5.7 - 6.4 Diabetes: >6.4 Glycemic control for adults with diabetes: <7.0 :35 Metabolic Panel, Basic Comments: PATIENT NOT FASTINGPERFORMED BY: Animoto [employer] [facility] [id number] (55605) Calcium, Serum 10.6 mg/dL (Abnormal) Range: 8.7-10.3 [...] Glucose, Serum 85 mg/dL (Normal) Range: 65-99 51-Mek-871865:29 Microscopic Examination Comments: PATIENT WAS FASTINGPERFORMED BY: AnimotoLourdes Medical Center of Burlington CountyKwdtnb9990 [facility] [id number] Bacteria Few (Normal) Mucus Threads Present (Normal) Cast Type Hyaline casts (Normal) Casts Present {/lpf} (Abnormal) Epithelial Cells (non renal) 0-10 {/hpf} (Normal) Range: 0 - 10 RBC 0-2 {/hpf} (Normal) Range: 0 - 2 WBC 0-5 {/hpf} (Normal) Range: 0 - 5 :29 URINALYSIS (57736) Comments: PATIENT WAS FASTINGPERFORMED BY: Animoto [employer] [facility] [id number] Microscopic Examination See below: (Normal) Comments: Microscopic was indicated and was performed. Nitrite, Urine Negative (Normal) Urobilinogen,Semi-Qn 0.2 mg/dL (Normal) Range: 0.2-1.0 Bilirubin Negative (Normal) Occult Blood Negative (Normal) Ketones Negative (Normal) Glucose Negative (Normal) Protein Trace (Normal) WBC Esterase 1+ (Abnormal) Appearance Clear (Normal) Urine-Color Yellow (Normal) pH 6.0 (Normal) Range: 5.0-7.5 Specific [place] 1.027 (Normal) Range: 1.005-1.030 :29 MICROALBUMIN: CREATININE RATIO Comments: PATIENT WAS FASTINGPERFORMED BY: Animoto Yllaor3341 [facility] [id number] (63379) AND (74386) Microalb/Creat Ratio 11.0 {mg/g_creat} (Normal) Range: 0.0-30.0 Microalbumin, Urine 29.4 ug/mL (Normal) Creatinine, Urine 266.4 mg/dL (Normal) :29 CALCIFEDIOL (22744) Comments: PATIENT WAS FASTINGPERFORMED BY: Animoto Puwnmu5572 [facility] [id number] Vitamin D, 25-Hydroxy 29.5 ng/mL (Abnormal) Range: 30.0-100.0 Comments: Vitamin D deficiency has been defined by the [place] ofMedicine and an Endocrine Society practice guideline as alevel of serum 25-OH vitamin D less than 20 ng/mL (1,2).The Endocrine Society went on to further define vitamin Dinsufficiency as a level between 21 and 29 ng/mL (2).1. IOM ([place]elig[place] of Medicine). 2010. Dietary reference intakes for calcium and D. [place]: The National Academies Press.2. Eleni MF, Lorne MORTON, Dayron WALTON, et al. Evaluation, treatment, and prevention of vitamin D deficiency: an Endocrine Society clinical practice guideline. JCEM. 2010; 96(7):1911-30. 84-Anj-582823:29 Lipid Panel (74978) Comments: PATIENT WAS FASTINGPERFORMED BY: AnimotoLourdes Medical Center of Burlington CountyLrlveu4896 [facility] [id number] LDL/HDL Ratio 1.9 {ratio_units} (Normal) Range: 0.0-3.2 Comments: LDL/HDL Ratio Men Women 1/2 Avg.Risk 1.0 1.5 Av g.Risk 3.6 3.2 2X Avg.Risk 6.2 5.0 3X Avg.Risk 8.0 6.1 LDL Cholesterol Calc 100 mg/dL (Abnormal) Range: 0-99 VLDL Cholesterol Edgardo 25 mg/dL (Normal) Range: 5-40 HDL Cholesterol 52 mg/dL (Normal) Triglycerides 125 mg/dL (Normal) Range: 0-149 Cholesterol, Total 177 mg/dL (Normal) Range: 100-199 :29 Metabolic Panel, Comprehensive Comments: PATIENT WAS FASTINGPERFORMED BY: AnimotoLourdes Medical Center of Burlington CountyPkeagf7587 [facility] [id number] (80000) ALT (SGPT) 14 [iU]/L (Normal) Range: 0-32 [...] Glucose, Serum 77 mg/dL (Normal) Range: 65-99 33-Scc-967608:29 CBC, Platelets & Auto Diff Comments: PATIENT WAS FASTINGPERFORMED BY: LabCoLourdes Medical Center of Burlington CountyNytkqd9377 [facility] [id number] (07939) Immature Grans (Abs) 0.0 {x10E3/uL} (Normal) Range: [...] 6.6 {x10E3/uL} (Normal) Range: 3.4-10.8 :29 TSH (02214) Comments: PATIENT WAS FASTINGPERFORMED BY: i-driveAspirus [facility] Hospital6370 [facility] [id number] TSH 2.240 {uIU/mL} (Normal) Range: 0.450-4.500 :29 HGB A1C (85955) Comments: PATIENT WAS FASTINGPERFORMED BY: i-driveAspirus [facility] Hospital6370 [facility] [id number] Hemoglobin A1c 6.7 % (Abnormal) Range: 4.8-5.6 Comments: . Pre-diabetes: 5.7 - 6.4 Diabetes: >6.4 Glycemic control for adults with diabetes: <7.0 :23 HGB A1C (85120) Comments: PATIENT NOT FASTINGPERFORMED BY: LabAspirus Iron River Hospital6370 [facility] [id number] Hemoglobin A1c 6.4 % (Abnormal) Range: 4.8-5.6 Comments: . Pre-diabetes: 5.7 - 6.4 Diabetes: >6.4 Glycemic control for adults with diabetes: <7.0 18-Ikl-242119:06 Blood Glucose , Office (73015) Blood Glucose , Office 84 (Normal) : Hemoglobin A1c 6.7 % (Abnormal) Comments: PATIENT NOT FASTINGPERFORMED BY: LabAspirus [facility] Hospital6370 [facility] [id number] Information: [id number] [id number] 13 Range: 4.8-5.6 Comments: . Pre-diabetes: 5.7 - 6.4 Diabetes: >6.4 Glycemic control for adults with diabetes: <7.0 :13 HgA1C , Office (92057) HgA1C , Office 6.6 % (Normal) Range: 4.6 - 7.1 :07 Blood Glucose , Office (91147) Blood Glucose , Office 97 (Normal) :51 HgA1C , Office (68265) HgA1C , Office 6.9 % (Normal) Range: 4.6 - 7.1 :51 Blood Glucose , Office (68688) Blood Glucose , Office 129 (Normal) :35 Sputum Culture (55760) Comments: PATIENT NOT FASTINGPERFORMED BY: i-driveAspirus [facility] Hospital6370 [facility] [id number] Information: [id number] Result 1 RRF (Normal) Comments: Routine respiratory marilin Lower Respiratory Culture Final report (Normal) :10 Rapid Flu (94920 x 2) Comments: neg Influenza A Ag neg (Normal) :31 Vitamin D Hydroxy (79642) Comments: PATIENT WAS FASTINGPERFORMED BY: [facility] Bedbqz3091 [facility] [id number] Vitamin D, 25-Hydroxy 34.0 ng/mL (Normal) Range: 30.0-100.0 Comments: Vitamin D deficiency has been defined by the [place] ofMedicine and an Endocrine Society practice guideline as alevel of serum 25-OH vitamin D less than 20 ng/mL (1,2).The Endocrine Society went on to further define vitamin Dinsufficiency as a level between 21 and 29 ng/mL (2).1. IOM ([place] of Medicine). 2010. Dietary reference intakes for calcium and D. [place]: The National Academies Press.2. Eleni MF, Lorne MORTON, Dayron WALTON, et al. Evaluation, treatment, and prevention of vitamin D deficiency: an Endocrine Society clinical practice guideline. JCEM. 2010; 96(7):1911-30. :31 Amylase (87525) Comments: PATIENT WAS FASTINGPERFORMED BY: [facility]6370 [facility] [id number] Amylase, Serum 32 U/L (Normal) Range: 31-124 :31 Lipase (16832) Comments: PATIENT WAS FASTINGPERFORMED BY: [facility] [place] [address] [id number] Lipase, Serum 47 U/L (Normal) Range: 0-59 :31 LIPID PANEL (80595) Comments: PATIENT WAS FASTINGPERFORMED BY: [facility]6370 [facility] [id number] LDL/HDL Ratio 1.7 {ratio_units} (Normal) Range: 0.0-3.2 [...] 155 mg/dL (Normal) Range: 100-199 :31 TSH (13012) Comments: PATIENT WAS FASTINGPERFORMED BY: [facility]6370 [facility] [id number] TSH 1.140 {uIU/mL} (Normal) Range: 0.450-4.500 :31 METABOLIC PANEL, Comments: PATIENT WAS FASTINGPERFORMED BY: [facility]6370 [facility] [id number] Information: [id number] COMPREHENSIVE (30788) ALT (SGPT) 20 [iU]/L (Normal) Range: 0-32 [...] (Normal) Range: 65-99 :12 HgA1C , Office (66669) HgA1C , Office 6.4 % (Normal) Range: 4.6 - 7.1 :21 HgA1C , Office (78439) HgA1C , Office 6.8 % (Normal) Range: 4.6 - 7.1 :21 Blood Glucose , Office (84179) Blood Glucose , Office 122 (Normal) :33 CBC W/Diff, Automated Comments: Test performed at:[facility] [address]qk[address] [place], [place] [address] Absolute Lymph 1.21 {X10_3/ul} (Normal) Range: 0.83-4.51 [...] 4.2-5.4 WBC 6.0 K/mm3 (Normal) Range: 4.4-11.0 07-Kpr-143302:33 Comprehensive Metabolic Profil Comments: Test performed at:[facility] Mjliividwv64[address] [place] [address] GAP 8 (Normal) Range: 5-15 CO2 28.0 [...] Comments: Please note revised CREATININE reference range eindfhntm73/22/2015. BUN 13 mg/dL (Normal) Range: 7-18 GLU 84 mg/dL (Normal) Range: 70-110 49-Wzv-873072:33 Lipid Profile Comments: Test performed at:[facility] Gvifhnpapb2114 [facility] [place] [address] ; non-emergent till apt VLDL [...] 200-240 mg/dL Borderline >240 mg/dL High Risk 23-Lrp-426925:33 Microalb:Creat Ratio,Random UR Comments: Test performed at:[facility] Dzrabbvndp3446 [facility] [place] [address] MALB:CREAT Test not performed {mg/g_CRE} (Normal) MICROALBUMIN,UR < 5.0 mg/L (Normal) UR CREAT 179.00 mg/dL (Normal) 02-Hrz-003478:33 Thyroid Stim Hormone (TSH) Comments: Test performed at:[facility] Vhwyvgfhdc3291 [facility] [place] [address] TSH 0.84 {uIU/mL} (Normal) Range: 0.358-3.74 00-Ogt-062576:33 Vitamin D,25 Hydroxy Comments: Test performed at:[facility] Oopabcansk[address] [place] [address] Vitamin D 25-OH 23.5 ng/mL (Normal) Comments: Vitamin D 25(OH) Status Range Deficiency <20 ng/mL (50nmol/L) Insuffciency 20 - 30 ng/mL (50 - 75 nmol/L) Sufficiency 30 - 100 ng/mL (75 - 250 nmol/L) Toxicity >100 ng/mL (>250 nmol/L) 9-Vdb-135366:34 HgA1C , Office (54423) HgA1C , Office 7.0 % (Normal) Range: 4.6 - 7.1 :00 CBC W/Diff, Automated Comments: Test performed at:[facility] Omvktvwfgt9563 [facility] [place] [address] Absolute Lymph 2.03 {X10_3/ul} (Normal) [...] 4.2-5.4 WBC 9.1 K/mm3 (Normal) Range: 4.4-11.0 2-Tko-948242:00 CK-MB Quantitative and Index Comments: 'TROP' Serial specimen #1, #2, #3, or #4: 1'CKMB' Serial Specimen #1, #2 or #3? 1Test performed at:[facility] [address] [place] [address] CPKMB 1.7 ng/mL (Normal) Range: 0.0-5.0 Comments: CK-MB and RI Interpretation MB Relative Index Non-AMI <or= 5 NA Indeterminate > 5 <or= 4 AMI > 5 > 4 CPK TOTAL 137 U/L (Normal) Range: 26-192 9-Wrh-054081:00 Myoglobin, Serum Comments: Test performed at:[facility] [address]tr[address] [place] [address] Myoglobin, Ser 149 ng/mL (Abnormal) Range: 25-58 Comments: Performed at: - [facility] [id number] Director: Jonathan Majano PhD, Phone: [phone] 6-Qri-665439:00 Troponin-I Comments: 'TROP' Serial specimen #1, #2, #3, or #4: 1'CKMB' Serial Specimen #1, #2 or #3? 1Test performed at:[facility] Fvtzjxls[address] [place] [address] TROPONIN-I < 0.02 ng/mL (Normal) Comments: TROPONIN-I EXPECTED VALUES <0.05 NEGATIVE 0.06 - 0.59 AT RISK OF NM > OR = 0.60 SUGGEST NM 0-Whd-421803:46 Rapid Flu (22119 x 2) Influenza A Ag n (Normal) 52-Peb-695094:30 Culture, Wound Comments: Test performed at:[facility] [address] [place] [address] CUW See Note (Normal) Comments: Gram StainGram [...] $ 1 S(NF) indicates non-formulary drug at [facility]. Approval by Infectious Disease Specialist required before non-formulary dr gerard may be ordered and/or dispensed. * CLSI guidelines does not recommend testing of cephalosporins. This interpretation is deduced from Beta- lactam/penicillin results. 38-Eqf-485870:20 WCGLU 81 mg/dL (Normal) Range: 70-110 82-Lnv-004994:20 WCLIPID VLDL 34 mg/dL (Normal) Range: 5-40 [...] CHOL 178 mg/dL (Normal) Comments: <200 mg/dL Jxqvwvdij752-080 mg/dL Borderline>240 mg/dL High Risk 8-Oyv-622831:50 MUM < 0.80 AU (Normal) Range: 0.00-0.79 Comments: Negative < 0.80Borderline 0.80 - 1.20Positive > 1.20Note: The presence of IgM specific antibody should beinterpreted in conjunction with the patient's clinicalhistory and exposure risk when an acute infection issuspected.Performed at: [address] [id number] Director: Rafita Cruz MD, Phone: [phone] at: [address] [id number] Director: Jj Caballero MD, Phone: [phone] 0-Mks-479464:50 RUBEOG > 300.0 AU/mL (Normal) Comments: Negative <25.0Equivocal 25.0 - 29.9Positive >29.9Presence of antibodies to Rubeola is presumptive evidenceof immunity except when acute infection is suspected. :50 RUBG > 500.0 {IU/mL} (Normal) Comments: Antibody results Interpretation of Immune Status< 5 IU/ml Presumed Non-immune5 - < 10 IU/ml Equivocal> or = 10 IU/ml Presumed Immune 01-Nov-20139:26 MICROALBUMIN: CREATININE RATIO Comments: PATIENT WAS FASTINGPERFORMED BY: [address] [id number] (93566) AND (48890) Microalb/Creat Ratio 3.9 {mg/g_creat} (Normal) Range: 0.0-30.0 Creatinine, Urine 177.5 mg/dL (Normal) Range: 15.0-278.0 Microalbumin, Urine 7.0 ug/mL (Normal) Range: 0.0-17.0 :26 CBC WITH MANUAL DIFF Comments: PATIENT WAS FASTINGPERFORMED BY: [address] [id number] Information: [id number] (11312) Immature Grans (Abs) 0.0 {x10E3/uL} (Normal) Range: [...] PANEL, COMPREHENSIVE Comments: PATIENT WAS FASTINGPERFORMED BY: LabCoLourdes Medical Center of Burlington CountyNudwlx1998 [facility] [id number] (91579) ALT (SGPT) 22 [iU]/L (Normal) Range: 0-32 [...] (Abnormal) Range: 65-99 :26 Vitamin D Hydroxy (12044) Comments: PATIENT WAS FASTINGPERFORMED BY: [facility]6370 [place] [id number] Vitamin D, 25-Hydroxy 32.9 ng/mL (Normal) Range: 30.0-100.0 Comments: Vitamin D deficiency has been defined by the [place] ofMedicine and an Endocrine Society practice guideline as alevel of serum 25-OH vitamin D less than 20 ng/mL (1,2).The Endocrine Society went on to further define vitamin Dinsufficiency as a level between 21 and 29 ng/mL (2).1. IOM ([place] of Medicine). 2010. Dietary reference intakes for calcium and D. [place]: The National Academies Press.2. Eleni MF, Lorne [place], Dayron WALTON, et al. Evaluation, treatment, and prevention of vitamin D deficiency: an Endocrine Society clinical practice guideline. JCEM. 2010; 96(7):1911-30. :26 LIPID PANEL (77083) Comments: PATIENT WAS FASTINGPERFORMED BY: Seguricel70 [employer] BiotecnologiaNov[facility] [id number] LDL/HDL Ratio 1.6 {ratio_units} (Normal) Range: 0.0-3.2 LDL Cholesterol Calc 74 mg/dL (Normal) Range: 0-99 HDL Cholesterol 46 mg/dL (Normal) Comments: According to ATP-III Guidelines, HDL-C >59 mg/dL is considered anegative risk factor for CHD. VLDL Cholesterol Edgardo 22 mg/dL (Normal) Range: 5-40 Triglycerides 112 mg/dL (Normal) Range: 0-149 Cholesterol, Total 142 mg/dL (Normal) Range: 100-199 :26 TSH (50487) Comments: PATIENT WAS FASTINGPERFORMED BY: Seguricel70 [facility] [id number] TSH 1.560 {uIU/mL} (Normal) Range: 0.450-4.500 8-Gws-324016:02 HgA1C , Office (46605) HgA1C , Office 6.6 % (Normal) Range: 4.6 - 7.1 :41 HgA1C , Office (57408) HgA1C , Office 6.4 % (Normal) Range: 4.6 - 7.1 84-Hpv-698512:30 Microscopic Examination Comments: PATIENT WAS FASTINGPERFORMED BY: Seguricel70 [facility] [id number] Bacteria Few (Normal) Mucus Threads Present (Normal) Epithelial Cells (non renal) 0-10 {/hpf} (Normal) Range: 0 - 10 RBC 0-3 {/hpf} (Normal) Range: 0 - 3 WBC 0-5 {/hpf} (Normal) Range: 0 - 5 :30 LIPID PANEL (48861) Comments: PATIENT WAS FASTINGPERFORMED BY: Seguricel70 [facility] [id number] LDL/HDL Ratio 2.3 {ratio_units} (Normal) Range: 0.0-3.2 LDL Cholesterol Calc 103 mg/dL (Abnormal) Range: 0-99 VLDL Cholesterol Edgardo 30 mg/dL (Normal) Range: 5-40 HDL Cholesterol 45 mg/dL (Normal) Comments: According to ATP-III Guidelines, HDL-C >59 mg/dL is considered anegative risk factor for CHD. Cholesterol, Total 178 mg/dL (Normal) Range: 100-199 Triglycerides 148 mg/dL (Normal) Range: 0-149 90-Jyz-946841:30 Vitamin D Hydroxy (09443) Comments: PATIENT WAS FASTINGPERFORMED BY: Animoto Ffzuho4877 [facility] [id number] Vitamin D, 25-Hydroxy 35.6 ng/mL (Normal) Range: 30.0-100.0 Comments: Vitamin D deficiency has been defined by the [place] ofMedicine and an Endocrine Society practice guideline as alevel of serum 25-OH vitamin D less than 20 ng/mL (1,2).The Endocrine Society went on to further define vitamin Dinsufficiency as a level between 21 and 29 ng/mL (2).1. IOM ([place] of Medicine). 2010. Dietary reference intakes for calcium and D. [place]: The National Academies Press.2. Eleni MF, Lorne NC, Dayron WALTON, et al. Evaluation, treatment, and prevention of vitamin D deficiency: an Endocrine Society clinical practice guideline. JCEM. 2010; 96(7):1911-30. 22-Vgi-470729:30 URINALYSIS, W/ MICRO (44348) Comments: PATIENT WAS FASTINGPERFORMED BY: Animoto Ztdqyi5898 [facility] [id number] Microscopic Examination See below: (Normal) Nitrite, Urine Negative (Normal) Bilirubin Negative (Normal) Urobilinogen,Semi-Qn 0.2 mg/dL (Normal) Range: 0.0-1.9 Occult Blood Negative (Normal) Ketones Negative (Normal) Glucose Negative (Normal) Protein Negative (Normal) WBC Esterase 1+ (Abnormal) Appearance Clear (Normal) Urine-Color Yellow (Normal) pH 5.5 (Normal) Range: 5.0-7.5 Specific [place] 1.017 (Normal) Range: 1.005-1.030 98-Jjz-337229:30 CBC WITH MANUAL DIFF Comments: PATIENT WAS FASTINGPERFORMED BY: [facility]6370 [facility] [id number] Information: [id number] (63833) Immature Grans (Abs) 0.0 {x10E3/uL} (Normal) Range: [...] 3.77-5.28 WBC 6.2 {x10E3/uL} (Normal) Range: 3.4-10.8 97-Szn-651840:30 METABOLIC PANEL, COMPREHENSIVE Comments: PATIENT WAS FASTINGPERFORMED BY: LabCoLourdes Medical Center of Burlington CountyGcmjvt8482 [facility] [id number] (94216) ALT (SGPT) 23 [iU]/L (Normal) Range: 0-32 [...] (Abnormal) Range: 65-99 :35 HgA1C , Office (27521) HgA1C , Office 6.6 % (Normal) Range: 4.6 - 7.1 98-Uzs-148356:41 Thin prep Pap (94768) Comments: Source.............VaginalNo. of containers..01 CYTYC Thin Prep VialPATIENT NOT FASTINGPERFORMED BY: [facility] [address] [id number] Information: [id number] Pathologist provided ICD9: SPRCS (Normal) Comments: 627.3The [...] of hysterectomy.V72.31 ; Routine gynecological examinationGris Moreau Statistical Typist (ASCP) :36 VITAMIN B-12 (CYANOCOBALAMIN) Comments: PATIENT WAS FASTINGPERFORMED BY: [employer] Tlyxbt4166 [employer] Entertainmentin [place] [id number] (93278) Vitamin B12 628 pg/mL (Normal) Range: 211-946 :36 LIPID PANEL (81246) Comments: PATIENT WAS FASTINGPERFORMED BY: [employer] LabAssembly6370 [employer] Biotecnologiablin [place] [id number] LDL/HDL Ratio 2.2 {ratio_units} (Normal) Range: 0.0-3.2 LDL Cholesterol Calc 87 mg/dL (Normal) Range: 0-99 VLDL Cholesterol Edgardo 27 mg/dL (Normal) Range: 5-40 HDL Cholesterol 39 mg/dL (Abnormal) Comments: According to ATP-III Guidelines, HDL-C >59 mg/dL is considered anegative risk factor for CHD. Cholesterol, Total 153 mg/dL (Normal) Range: 100-199 Triglycerides 137 mg/dL (Normal) Range: 0-149 :36 Vitamin D Hydroxy (51222) Comments: PATIENT WAS FASTINGPERFORMED BY: [employer] [facility] Oxmtvm6507 Whale CommunicationsGood Hope Hospitalin [place] [id number] Vitamin D, 25-Hydroxy 31.1 ng/mL (Normal) Range: 30.0-100.0 Comments: Vitamin D deficiency has been defined by the [place] ofMedicine and an Endocrine Society practice guideline as alevel of serum 25-OH vitamin D less than 20 ng/mL (1,2).The Endocrine Society went on to further define vitamin Dinsufficiency as a level between 21 and 29 ng/mL (2).1. IOM (Seligman of Medicine). 2010. Dietary reference intakes for calcium and D. [place]: The National Academies Press.2. Eleni MF, Lorne MORTON, Dayron WALTON, et al. Evaluation, treatment, and prevention of vitamin D deficiency: an Endocrine Society clinical practice guideline. JCEM. 2010; 96(7):6241-30. :36 TSH (42965) Comments: PATIENT WAS FASTINGPERFORMED BY: [employer]6370 [employer] BiotecnologiaNovant Health Rehabilitation Hospital [id number] TSH 1.510 {uIU/mL} (Normal) Range: 0.450-4.500 :36 MICROALBUMIN: CREATININE RATIO Comments: PATIENT WAS FASTINGPERFORMED BY: Animoto Tglaih9380 [employer] BiotecnologiaNovant Health Rehabilitation Hospital [id number] (74421) AND (75973) Creatinine, Urine 212.6 mg/dL (Normal) Range: 15.0-278.0 Microalb/Creat Ratio 2.1 {mg/g_creat} (Normal) Range: 0.0-30.0 Microalbumin, Urine 4.5 ug/mL (Normal) Range: 0.0-17.0 :36 METABOLIC PANEL, Comments: PATIENT WAS FASTINGPERFORMED BY: Animoto Oefgey3357 [facility] [id number] Information: [id number] COMPREHENSIVE (75971) ALT (SGPT) 23 [iU]/L (Normal) Range: 0-32 [...] Glucose, Serum 160 mg/dL (Abnormal) Range: 65-99 31-Wne-53642:34 BILAT SCRN DIGITAL & CAD Radiology Report [...] Mckenzie M.D.April 12, 2012 at 10:58:16 AM [id number] Signed GP/GP If you are the referring physician and would like to consult w [facility] theradiologist who provided this interpretation, please contact Sudha Pritchett at [phone]. If this radiologist is unavailable, youwill be [...] HUTCHINSON,Steffenranscribed on 04/12/121101 by ITS IMPORTSign by Leobardo Mckenzie MD on 04/12/121102 Sign by: Leobardo Mckenzie MD 13-Sdi-11174:34 DEXA BONE DENSITY STUDY (HP) Radiology Report [...] Mckenzie M.D.April 12 2 at 12:31:08 PM [id number] Signed GP/GP If you are the referring physician and would like to consult with theradiologist who provided this interpretation, please contact Rashard thompson M.D. at [phone]. If this radiologist is unavailable, youwill be directed to another radiologist to assist. If you are a patient with a question regarding this report, pleasecontactyour refer ring physician directly. Professional Interpretation Provided By: Thatgamecompany, Phone , These documents contain legally protected [...] destructionofthese documents. Dictated on 04/12/12 1021 by Jonah Eubanks,CristinoriAbbeyranscribed on 10/16/12 1234 by ITS IMPORTSign by Leobardo Mckenzie MD on 04/12/12 1235 Sign by: Leobardo Mckenzie MD 7-Nze-694810:25 HPV automatic Comments: Source.............Cervical;EndocervicalNo. of containers..01 CYTYC Thin Prep VialPATIENT NOT FASTINGPERFORMED BY: WB [facility] Zuvbvposgb[address] [place] [id number] BY: =Stephanie Hodge (93635) [facility] Wjuekyjobb369 [facility] [place] [id number] Information: [id number] HPV, high-risk Negative Comments: This high-risk HPV [...] history of hysterectomy.V72.31 ; Routine gynecological examinationJenatalio Steven Statistical Typist (ASCP) 55-Oaq-72576:37 Hemoglobin Glyclated (HGB A1C) Comments: PATIENT WAS FASTINGPERFORMED BY: [facility] Hzwbrp8507 [facility] [id number] (37494) Hemoglobin A1c 7.1 % (Abnormal) Range: 4.8-5.6 Comments: . Increased risk for diabetes: 5.7 - 6.4 Diabetes: >6.4 Glycemic control for adults with diabetes: <7.0 :37 TSH (66598) Comments: PATIENT WAS FASTINGPERFORMED BY: [facility]6370 [facility] [id number] TSH 1.790 {uIU/mL} (Normal) Range: 0.450-4.500 :37 CBC WITH MANUAL DIFF Comments: PATIENT WAS FASTINGPERFORMED BY: LabAsp[facility]6370 [facility] [id number] Information: [id number] (81693) Immature Grans (Abs) 0.0 {x10E3/uL} (Normal) Range: [...] CREATININE RATIO Comments: PATIENT WAS FASTINGPERFORMED BY: AnimotoAdvanced Care Hospital of Southern New MexicoEcfgtv8670 [facility] [id number] (02007) AND (99188) Microalb/Creat Ratio 0.8 {mg/g_creat} (Normal) Range: 0.0-30.0 Microalbumin, Urine 1.4 ug/mL (Normal) Range: 0.0-17.0 Creatinine, Urine 183.1 mg/dL (Normal) Range: 15.0-278.0 :37 LIPID PANEL (97916) Comments: PATIENT WAS FASTINGPERFORMED BY: [employer] Azebju9188 [facility] [id number] LDL/HDL Ratio 1.4 {ratio_units} (Normal) Range: 0.0-3.2 [...] PANEL, COMPREHENSIVE Comments: PATIENT WAS FASTINGPERFORMED BY: AnimotoLourdes Medical Center of Burlington CountyTprwbo7540 [facility] [id number] (27904) ALT (SGPT) 26 [iU]/L (Normal) Range: 0-40 [...] (Abnormal) Range: 65-99 :37 Vitamin D Hydroxy (40467) Comments: PATIENT WAS FASTINGPERFORMED BY: TARAS LabCoLourdes Medical Center of Burlington CountyRssrpi5284 [facility] [id number] Vitamin D, 25-Hydroxy 42.1 ng/mL (Normal) Range: 30.0-100.0 Comments: Vitamin D deficiency has been defined by the [place] of[facility], [place] and an Endocrine Society practice guideline as alevel of serum 25-OH vitamin D less than 20 ng/mL (1,2).The Endocrine Society went on to further define vitamin Dinsufficiency as a level between 21 and 29 ng/mL (2).1. IOM (Seligman of Medicine). 2010. Dietary reference intakes for calcium and D. [place]: The National Academies Press.2. Eleni MF, Lorne MORTON, Dayron WALTON, et al. Evaluation, treatment, and prevention of vitamin D deficiency: an Endocrine Society clinical practice guideline. JCEM. 2010; 96(7):1911-30. :37 VITAMIN B-12 (CYANOCOBALAMIN) Comments: PATIENT WAS FASTINGPERFORMED BY: LabCoLourdes Medical Center of Burlington CountyZutgix0715 Shanita Martinez [place] [id number] (99330) Vitamin B12 1841 pg/mL (Abnormal) Range: 211-946 05-Afj-994924:56 CHEST WITH CONTRAST Radiology Report See Note [...] Signed:Marva HunterFebruary 11, 2012 at 3:53:06 PM [phone] Signed MV/MV If you are the referring physician and would like to consult with theradiologist who provided this interpretation, please co ntact Jackie Sierra M.D. at . If this radiologist is unavailable, youwillbe directed to another radiologist to assist. If you are a patient with a question regarding this report, pleas econtactyour referring physician directly. Professional Interpretation Provided By: [employer], Phone , These documents contain legally protected [...] on 02/11/121610 by ITS IMPORTSign by RIGO HUTCHINSONENZOTor on 02/11/121611 Sign by: JACKIE SIERRA MD 64-Aqb-306964:22 CRE GFRAA 95 mL/min (Normal) GFR 78 mL/min (Normal) CREAT 0.8 mg/dL (Normal) Range: 0.6-1.0 :42 MICROALBUMIN: CREATININE RATIO Comments: PATIENT WAS FASTINGPERFORMED BY: Animoto Npqfxz5585 Whale CommunicationsUNC Health Wayne [id number] (13352) AND (39741) Creatinine, Urine 87.6 mg/dL (Normal) Range: 15.0-278.0 Microalb/Creat Ratio 1.1 {mg/g_creat} (Normal) Range: 0.0-30.0 Microalbumin, Urine 1.0 ug/mL (Normal) Range: 0.0-17.0 :42 VITAMIN B-12 (CYANOCOBALAMIN) Comments: PATIENT WAS FASTINGPERFORMED BY: AnimotoAdvanced Care Hospital of Southern New MexicoZlzhiw2262 [facility] [id number] (41927) Vitamin B12 1740 pg/mL (Abnormal) Range: 211-946 :42 CBC WITH MANUAL DIFF Comments: PATIENT WAS FASTINGPERFORMED BY: AnimotoLourdes Medical Center of Burlington CountyJyondh5604 [facility] [id number] Information: [id number] (05779) Immature Grans (Abs) 0.0 {x10E3/uL} (Normal) Range: [...] 3.77-5.28 WBC 5.5 {x10E3/uL} (Normal) Range: 4.0-10.5 85-Lik-78227:42 Vitamin D Hydroxy (05253) Comments: PATIENT WAS FASTINGPERFORMED BY: [facility]6370 [facility] [id number] Vitamin D, 25-Hydroxy 32.2 ng/mL (Normal) Range: 30.0-100.0 Comments: Vitamin D deficiency has been defined by the [place] ofMedicine and an Endocrine Society practice guideline as alevel of serum 25-OH vitamin D less than 20 ng/mL (1,2).The Endocrine Society went on to further define vitamin Dinsufficiency as a level between 21 and 29 ng/mL (2).1. IOM (Seligman of Medicine). 2010. Dietary reference intakes for calcium and D. [place]: The National Academies Press.2. Eleni MF, Lorne MORTON, Dayron WALTON, et al. Evaluation, treatment, and prevention of vitamin D deficiency: an Endocrine Society clinical practice guideline. JCEM. 2010; 96(7):1911-30. :42 LIPID PANEL (28510) Comments: PATIENT WAS FASTINGPERFORMED BY: ConnectSolutionslin6370 [facility] [id number] LDL/HDL Ratio 2.2 {ratio_units} (Normal) Range: 0.0-3.2 [...] PANEL, COMPREHENSIVE Comments: PATIENT WAS FASTINGPERFORMED BY: LabCoBlooieJzolqg7786 [facility] [id number] (19808) ALT (SGPT) 20 [iU]/L (Normal) Range: 0-32 [...] Glucose, Serum 148 mg/dL (Abnormal) Range: 65-99 30-Lov-57488:42 TSH (98498) Comments: PATIENT WAS FASTINGPERFORMED BY: LabCoLourdes Medical Center of Burlington CountyNgazjf9822 [facility] [id number] TSH 2.140 {uIU/mL} (Normal) Range: 0.450-4.500 5-Abm-890606:41 Urinalysis, Office (98667) UA - BILIRUBIN Negative (Normal) UA - BLOOD Negative (Normal) UA - GLUCOSE Negative (Normal) UA - KETONES Negative mg/dL (Normal) UA - LEUKOCYTE ESTERASE Negative (Normal) UA - NITRITE Negative (Normal) UA - PH 8.5 (Normal) UA - PROTEIN 30 mg/dL (Normal) UA - SPECIFIC GRAVITY 1.020 (Normal) URINE UROBILINGN SUNNY TIMED Normal mg/dL (Normal) 54-Iui-307943:08 CULTURE, SPUTUM (99756) Comments: PATIENT NOT FASTINGPERFORMED BY: LabCoLourdes Medical Center of Burlington CountyLeevnq2991 [facility] [id number] Information: SRC:SPT ADD [id number] Result 1 RRF (Normal) Comments: Routine respiratory [...] {uIU/mL} (Normal) Range: 0.358-3.74 :24 VIT D,25 41251 37.4 ng/mL (Normal) Range: 30.0-100.0 Comments: Vitamin D deficiency has been defined by the [place] ofMedicine and an Endocrine Society practice guideline as alevel of serum 25-OH vitamin D less than 20 ng/mL (1,2).The Endocrine Society went on to further define vitamin Dinsufficiency as a level between 21 and 29 ng/mL (2).1. IOM (Seligman of Medicine). 2011. Dietary reference intakes for calcium and D. [place]: The National Academies Press.2. Eleni MF, Lorne [place], Dayron WALTON, et al. Evaluation, treatment, and prevention of vitamin D deficiency: an Endocrine Society clinical practice guideline. JCEM. 2010; 96(7): 1911-30.Performed at: [facility] Lab[address] [id number] Director: Leigh Palomo MD, Phone: [phone] 8-Leq-222769:43 Blood Glucose , Office (02323) Blood Glucose , Office 141 (Normal) 35-Mep-54861:08 BILAT SCRN DIGITAL & CAD Radiology Report [...] normality. Dictated on 04/07/11 0925 by Jonah HUTCHINSON,CristinorieleTranscribed on 04/07/11 1031 by ITS IMPORTSign by Leobardo Mckenzie MD on 04/07/11 1032 Sign by: Leobardo Mckenzie MD 42-Hfs-969502:03 Rapid Strep Test, Office (27459) Comments: neg Rapid Strep Test, Office Negative (Normal) 64-Jlu-663600:48 MEHREEN CULTURE-OTHER (05124) Comments: PATIENT NOT FASTINGPERFORMED BY: LabAspirus [facility] Hospital6370 [facility] [id number] Information: SRC:THRT [id number] Result 1 RRF (Normal) Comments: Routine respiratory marilin Upper Respiratory Culture Final report (Normal) 68-Wnz-321733:37 Rapid Strep Test, Office (77673) Rapid Strep Test, Office Negative (Normal) 61-Olh-030983:05 Rapid Flu (19609 x 2) Influenza A Ag negative (Normal) 28-Msa-12610:18 MICROALBUMIN: CREATININE RATIO Comments: PATIENT WAS FASTINGPERFORMED BY: LabCoLourdes Medical Center of Burlington CountyCmjzof4787 [facility] [id number] (36587) AND (79547) Microalb/Creat Ratio 2.4 {mg/g_creat} (Normal) Range: 0.0-30.0 Microalbumin, Urine 4.6 ug/mL (Normal) Range: 0.0-17.0 Creatinine, Urine 189.1 mg/dL (Normal) Range: 15.0-278.0 :18 CBC WITH MANUAL DIFF Comments: PATIENT WAS FASTINGPERFORMED BY: [facility]6370 [facility] [id number] Information: [id number] (32751) Immature Grans (Abs) 0.0 {x10E3/uL} (Normal) Range: [...] 3.80-5.10 WBC 6.4 {x10E3/uL} (Normal) Range: 4.0-10.5 76-Hor-58084:18 METABOLIC PANEL, COMPREHENSIVE Comments: PATIENT WAS FASTINGPERFORMED BY: [facility] Eqycrl4394 [facility] [id number] (85232) ALT (SGPT) 21 [iU]/L (Normal) Range: 0-40 [...] Glucose, Serum 143 mg/dL (Abnormal) Range: 65-99 64-Tpu-19224:18 Vitamin D Hydroxy (32818) Comments: PATIENT WAS FASTINGPERFORMED BY: [facility] Ztkfpe3585 [facility] [id number] Vitamin D, 25-Hydroxy 38.2 ng/mL (Normal) Range: 32.0-100.0 Comments: Recent studies consider the lower limit of 32.0 ng/mL to be athreshold for optimal health.Tom SOLIS. J Nutr. 2004;135(2):317-22. :18 LIPID PANEL (04647) Comments: PATIENT WAS FASTINGPERFORMED BY: LabCo Sjdeit5167 [facility] [id number] LDL Cholesterol Calc 69 mg/dL (Normal) Range: 0-99 LDL/HDL Ratio 1.7 {ratio_units} (Normal) Range: 0.0-3.2 HDL Cholesterol 40 mg/dL (Normal) Comments: According to ATP-III Guidelines, HDL-C >59 mg/dL is considered anegative risk factor for CHD. VLDL Cholesterol Edgardo 37 mg/dL (Normal) Range: 5-40 Cholesterol, Total 146 mg/dL (Normal) Range: 100-199 Triglycerides 184 mg/dL (Abnormal) Range: 0-149 :18 TSH (75566) Comments: PATIENT WAS FASTINGPERFORMED BY: [facility] Fpwcdg3326 [facility] [id number] TSH 1.380 {uIU/mL} (Normal) Range: 0.450-4.500 :58 HgA1C , Office (05215) HgA1C , Office 6.4 % (Normal) Range: 4.6 - 7.1 :58 Blood Glucose , Office (42941) Blood Glucose , Office 146 (Normal) 21-Uci-355811:43 L/S SPINE,MIN 4 VIEWS (MT) Radiology Report See Note (Normal) Comments: Exam Number: [id number] CLINICAL:The patient is a 59-year-old woman with [...] ESTElectronically Signed PM/PM As part of our Developmental Writing Instructor Program, we request that surgical orpathologic correlation, or any additional supportive or discordantmedical history, laboratory or imaging studies be forwarded [facility], attention: Peer ReviewCoordinator. , , [address] [address], [address] [place] [address]. Reported By: CHASTITY RETANA M.D. 39-Aas-066062:28 Urinalysis, Office (39709) UA - BILIRUBIN Negative (Normal) UA - BLOOD Negative (Normal) UA - GLUCOSE Negative (Normal) UA - KETONES Negative mg/dL (Normal) UA - LEUKOCYTE ESTERASE Negative (Normal) UA - NITRITE Negative (Normal) UA - PH 6.0 (Normal) UA - PROTEIN Negative mg/dL (Normal) UA - SPECIFIC GRAVITY 1.025 (Normal) URINE UROBILINGN SUNNY TIMED 2 mg/dL (Normal) 99-Ops-946311:46 Thin prep Pap (55467) Comments: Source.............VaginalLMP / Prev Treat...HystNo. of containers..01 CYTYC Thin Prep VialPERFORMED BY: [facility] [address] [id number] Information: [id number] Note: PAPSMR (Normal) Comments: The Pap smear [...] ; Routine gynecological exami [facility] Hospitalmarquez Statistical Typist (ASCP) 55-Abr-218610:06 Vitamin D Hydroxy (37383) Comments: PATIENT WAS FASTINGPERFORMED BY: [facility]63Foundshopping.comNovant Health Rehabilitation Hospital [id number] Vitamin D, 25-Hydroxy 26.5 ng/mL (Abnormal) Range: 32.0-100.0 Comments: Recent studies consider the lower limit of 32.0 ng/mL to be athreshold for optimal health.Tom SOLIS. J Nutr. 2004;135(2):317-22. 91-Mvo-868649:06 LIPID PANEL (00937) Comments: PATIENT WAS FASTINGPERFORMED BY: [facility]6370 [employer] Agro BiotecnologiaNovant Health Rehabilitation Hospital [id number] LDL Cholesterol Calc 57 mg/dL (Normal) Range: 0-99 LDL/HDL Ratio 1.4 {ratio_units} (Normal) Range: 0.0-3.2 VLDL Cholesterol Edgardo 32 mg/dL (Normal) Range: 5-40 HDL Cholesterol 41 mg/dL (Normal) Comments: According to ATP-III Guidelines, HDL-C >59 mg/dL is considered anegative risk factor for CHD. Triglycerides 162 mg/dL (Abnormal) Range: 0-149 Cholesterol, Total 130 mg/dL (Normal) Range: 100-199 36-Qtz-258069:06 METABOLIC PANEL, Comments: PATIENT WAS FASTINGPERFORMED BY: [employer] Ezekga0775 [facility] [id number] Information: ADD [id number] AND DRAW FEE 99 1060 COMPREHENSIVE (66795) ALT (SGPT) 23 [iU]/L (Normal) Range: 0-40 [...] (Abnormal) Range: 65-99 :20 HgA1C , Office (58167) HgA1C , Office 6.8 % (Normal) Range: 4.6 - 7.1 :20 Blood Glucose , Office (88718) Blood Glucose , Office 129 (Normal) :38 Rapid Strep Test, Office (64659) Rapid Strep Test, Office Negative (Normal) 83-Vze-462173:09 HgA1C , Office (69407) HgA1C , Office 6.9 % (Normal) Range: 4.6 - 7.1 50-Bch-080264:09 Blood Glucose , Office (46299) Blood Glucose , Office 127 (Normal) 19-Rro-45405:14 METABOLIC PANEL, COMPREHENSIVE Comments: PATIENT WAS FASTINGPERFORMED BY: LabCoLourdes Medical Center of Burlington CountyRatzix9782 [facility] [id number] (80683) Alkaline Phosphatase, S 60 [iU]/L (Normal) Range: [...] MANUAL DIFF Comments: PATIENT WAS FASTINGPERFORMED BY: LabCoLourdes Medical Center of Burlington CountyVdivaw2639 [facility] [id number] Information: [id number] (23513) Baso (Absolute) 0.0 {x10E3/uL} (Normal) Range: 0.0-0.2 [...] URINE QUANT Comments: PATIENT WAS FASTINGPERFORMED BY: LabCoLourdes Medical Center of Burlington CountyDpcsoc0415 [facility] [id number] (86781) Microalb/Creat Ratio <.8 {mg/g_creat} (Normal) Range: 0.0-30.0 Microalbumin, Urine <1.0 ug/mL (Normal) Range: 0.0-17.0 Creatinine, Urine 124.3 mg/dL (Normal) Range: 15.0-278.0 :14 TSH (86020) Comments: PATIENT WAS FASTINGPERFORMED BY: LabCoSemtek Innovative Solutions Yzgkfu1214 [facility] [id number] TSH 2.150 {uIU/mL} (Normal) Range: 0.450-4.500 Comments: Effective July 22, 2009, TSH reference interval for11 - 19 years will be changing to: 0.450 - 4.500 uIU/mLReference interval for all other ages will NOT be affected. :14 Vitamin D Hydroxy (67664) Comments: PATIENT WAS FASTINGPERFORMED BY: [employer] Dmsbxs2175 [facility] [id number] Vitamin D, 25-Hydroxy 26.6 ng/mL (Abnormal) Range: 32.0-100.0 Comments: Recent studies consider the lower limit of 32.0 ng/mL to be athreshold for optimal health.Tom SOLIS. J Nutr. 2004;135(2):317-22. :14 LIPID PANEL (29488) Comments: PATIENT WAS FASTINGPERFORMED BY: [employer] [facility] Dlbjxx3849 [facility] [id number] HDL Cholesterol 42 mg/dL (Normal) Comments: According to ATP-III Guidelines, HDL-C >59 mg/dL is considered anegative risk factor for CHD. LDL Cholesterol Calc 100 mg/dL (Abnormal) Range: 0-99 LDL/HDL Ratio 2.4 {ratio_units} (Normal) Range: 0.0-3.2 Triglycerides 172 mg/dL (Abnormal) Range: 0-149 VLDL Cholesterol Edgardo 34 mg/dL (Normal) Range: 5-40 Cholesterol, Total 176 mg/dL (Normal) Range: 100-199 13-Ayg-985072:07 HgA1C , Office (80389) HgA1C , Office 6.1 % (Normal) Range: 4.6 - 7.1 64-Tqo-462416:07 Blood Glucose , Office (34430) Blood Glucose , Office 232 (Normal) 70-Gce-23638:25 Lower Respiratory Culture Comments: Clinical Information: SRC:SP PERFORMED BY: i-driveAspirus Iron River Hospital6370 [facility] [id number] Lower Respiratory Culture Final report (Normal) Result 1 RRF (Normal) Comments: Routine respiratory marilin :00 Influenza A, H1N1, RT PCR Comments: Clinical Information: SRC:NL PERFORMED BY: [facility]6370 [facility] [id number] Subtype Novel H1N1 by Negative (Normal) PCR Type Influenza A by Negative (Normal) PCR Viral Final report Comments: PERFORMED BY: i-driveAspirus Iron [facility] Hospital6370 [facility] [id number] Culture,Rapid,Influen (Normal) Comments: Negative:No Influenza A or B detected. za 79-Prp-835624:29 CHEST, PA AND LATERAL (MT) Radiology Report See Note (Normal) Comments: Exam Number: [id number] CLINICAL:58-year-old woman with cough and shortness of breath. She also has fever. Symptoms for two days. X-RAY EXAMINATION: CHEST TECHNIQUE:PA and lateral views of the chest. C OMPARISON:Second of September 2006 FINDINGS:The lungs are clear and [...] cardiopulmonary process. Reported By: ROSEMARIE ROBBINS M.D. 55-Apq-161281:45 Rapid Strep Test, Office (63843) Comments: done ch Rapid Strep Test, Office Negative (Normal) 17-Pta-161361:32 Rapid Flu (67845 x 2) Comments: done INFLUENZA IMMUNOASSY negative (Normal) DIRECT OPTICAL OBSERV 04-Apr-20090:00 FLU A+B DIRECT See Note (Normal) Comments: Negative test results should be confirmed by culture. Order Rapid Viral Culture for Influenzae A+B ([id number]) if clinically indicated. INFLUENZA ANTIGEN,DIRECT Presumptive NEGATIVE for Influenza A/B Antigen (See Note) 22-Jxn-928107:04 METABOLIC PANEL, COMPREHENSIVE Comments: PATIENT WAS FASTINGPERFORMED BY: TARAS [employer]70 [facility] [id number] ([id number]) A/G Ratio 1.6 (Normal) Range: 1.1-2.5 Albumin, [...] Sodium, Serum 141 mmol/L (Normal) Range: 135-145 14-Rqs-869488:04 MICROALBUMIN: CREATININE RATIO Comments: PATIENT WAS FASTINGPERFORMED BY: [employer] [facility] [id number] (96949) AND (88151) Creatinine, Urine 124.0 mg/dL (Normal) Range: 15.0-278.0 Microalb/Creat Ratio 1.5 {ug/mg_creat} (Normal) Range: 0.0-30.0 Microalbumin, Urine 1.9 ug/mL (Normal) Range: 0.0-17.0 94-Mct-860269:04 LIPID PANEL (94663) Comments: PATIENT WAS FASTINGPERFORMED BY: Animoto Smbqyc9849 [facility] [id number] Cholesterol, Total 155 mg/dL (Normal) Range: 100-199 HDL Cholesterol 44 mg/dL (Normal) Comments: According to ATP-III Guidelines, HDL-C >59 mg/dL is considered anegative risk factor for CHD. LDL Cholesterol Calc 89 mg/dL (Normal) Range: 0-99 LDL/HDL Ratio 2.0 {ratio_units} (Normal) Range: 0.0-3.2 Triglycerides 109 mg/dL (Normal) Range: 0-149 VLDL Cholesterol Edgardo 22 mg/dL (Normal) Range: 5-40 62-Mtw-289238:04 Vitamin D Hydroxy (79118) Comments: PATIENT WAS FASTINGPERFORMED BY: [facility]driveAsp[facility]6370 [facility] [id number] Vitamin D, 25-Hydroxy 24.9 ng/mL (Abnormal) Range: 32.0-100.0 Comments: Recent studies consider the lower limit of 32.0 ng/mL to be athreshold for optimal health.Tom SOLIS. J Nutr. 2004;135(2):317-22. 46-Ffn-149588:04 C-REACTIVE PROTEIN (05066) Comments: PATIENT WAS FASTINGPERFORMED BY: [facility]-driveAsp[facility]6370 [facility] [id number] C-Reactive Protein, Quant 4.4 mg/L (Normal) Range: 0.0-4.9 45-Ndm-760413:04 CBC WITH MANUAL DIFF (79943) Comments: PATIENT WAS FASTINGClinical Information: ADD DRAW FEE [id number] ADD J 82639 PERFORMED BY: [facility]Asp[facility]6370 [facility] [id number] Baso (Absolute) 0.1 {x10E3/uL} (Normal) Range: 0.0-0.2 [...] 11.7-15.0 WBC 5.0 {x10E3/uL} (Normal) Range: 4.0-10.5 66-Kqt-318138:04 TSH (03772) Comments: PATIENT WAS FASTINGPERFORMED BY: LabCoLour[facility] of Burlington CountyCevvmm3942 [facility] [id number] TSH 1.151 {uIU/mL} (Normal) Range: 0.450-4.500 22-Kzd-724539:00 HgA1C , Office (98426) HgA1C , Office 6.2 % (Normal) Range: 4.6 - 7.1 57-Pbx-613658:00 Blood Glucose , Office (45721) Blood Glucose , Office 132 (Normal) 60-Oar-118420:39 ABDOMEN WITH IV CONTRAST Radiology Report See Note (Normal) Comments: Exam Number: [id number] CT ABDOMEN WITH CONTRAST CLINICAL STATEMENTRight upper [...] anincidental adenoma. Reported By: EDILIA WHEELER M.D. 59-Zbx-530045:38 CHEST WITH CONTRAST Radiology Report See Note (Normal) Comments: Exam Number: [id number] CT OF THE CHEST WITH CONTRAST. STATEMENTCough, [...] Comments: LIVER FUNCTION: PLEASE CALL DR CHEN, CLINICAL EVALUATOR FOR DR FUENTES 46 Range: 25-115 : C-REACTIVE PROT 13.74 mg/L (Abnormal) Comments: LIVER FUNCTION: PLEASE CALL DR CHEN CLINICAL EVALUATOR FOR DR FUENTES 46 Range: 0.0-6.0 Comments: Test performed using [...] METABOLIC Comments: LIVER FUNCTION: PLEASE CALL DR CHEN, CLINICAL EVALUATOR FOR DR CHRISTINA. A/G 1.2 {RATIO} (Normal) Range: 0.9-2.4 ALB [...] T PROT 7.4 g/dL (Normal) Range: 6.4-8.2 06-Eic-576014:46 D-DIMER QUANT <200 ng/mL (Normal) Comments: NORMAL D-Dimer level indicates no DVT or PE. RESULTS CALLED TO DR CHEN 09/21/08 1704 RAD HOOD.REPORT READ BACK BY SAME . 88-Hse-742075:46 ESR SED RATE 29 mm/h (Normal) Range: 0-30 :46 LIPASE 239 U/L (Normal) Comments: LIVER FUNCTION: PLEASE CALL DR CHEN, CLINICAL EVALUATOR FOR DR CHRISTINA. Range: 114-286 16-Eis-523260:12 HgA1C , Office (43410) HgA1C , Office 6.1 % (Normal) Range: 4.6 - 7.1 45-Pvf-369450:12 Blood Glucose , Office (65078) Blood Glucose , Office 116 (Normal) 51-Oan-282948:48 Urine Culture,Comprehensive Comments: Clinical Information: SRC:UR PERFORMED BY: [facility]6370 [facility] [id number] Result 1 MUG (Normal) Comments: Mixed urogenital gutbp299 Colonies/mL Urine Culture,Comprehensive Final report (Normal) 27-Olq-129762:31 L/S SPINE,MIN 4 VIEWS (MT) Radiology Report See Note (Normal) Comments: Exam Number: [id number] LUMBAR SPINE, 5 VIEWS CLINICAL STATEMENTFollow up bone density study, question compression of L5. COMPARISONBone Dexatometry May 03, 2008. 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 Vertebral body height andalignment appears maintained. Multilevel mild degenerative discchanges are present throughout the lumbar spine with end plateosteophyte formation present. There is mini mal concavity of the R6xmrydivo end plate likely secondary to degenerative change [...] position orspasm. Reported By: EDILIA WHEELER M.D. 14-Anw-14647:59 METABOLIC PANEL, COMPREHENSIVE Comments: PATIENT WAS FASTINGPERFORMED BY: [facility]6370 [facility] [id number] ([id number]) A/G Ratio 1.4 (Normal) Range: 1.1-2.5 Albumin, [...] Total 3.0 g/dL (Normal) Range: 1.5-4.5 If -[place] >59 mL/min/1.73 Comments: Note: Persistent reduction for [...] Glucose, Serum 136 mg/dL (Abnormal) Range: 65-99 26-Pmh-29310:59 CBC WITH MANUAL DIFF (09276) Comments: PATIENT WAS FASTINGClinical Information: ADD DRAW FEE 270863 ADD J 14338 PERFORMED BY: LabCoLourdes Medical Center of Burlington CountyDhpuvo8810 [facility] [id number] Baso (Absolute) 0.0 {x10E3/uL} (Normal) Range: 0.0-0.2 [...] FUNCTION PANEL Comments: PATIENT WAS FASTINGPERFORMED BY: AnimotoLourdes Medical Center of Burlington CountyUraqmd6138 [facility] [id number] (49793) Bilirubin, Direct 0.09 mg/dL (Normal) Range: 0.00-0.40 :59 LIPID PANEL (45362) Comments: PATIENT WAS FASTINGPERFORMED BY: AdlogixLourdes Medical Center of Burlington CountyYtqdwr9625 [facility] [id number] Cholesterol, Total 156 mg/dL (Normal) Range: 100-199 HDL Cholesterol 43 mg/dL (Normal) Comments: According to ATP-III Guidelines, HDL-C >59 mg/dL is considered anegative risk factor for CHD. LDL Cholesterol Calc 77 mg/dL (Normal) Range: 0-99 LDL/HDL Ratio 1.8 {ratio_units} (Normal) Range: 0.0-3.2 Triglycerides 180 mg/dL (Abnormal) Range: 0-149 VLDL Cholesterol Edgardo 36 mg/dL (Normal) Range: 5-40 44-Kaz-507045:27 Urinalysis, Office (67706) UA - BILIRUBIN Negative (Normal) UA - [...] Report See Note (Normal) Comments: Exam Number: [id number] BONE DENSITOMETRY HISTORYOsteopenia. TECHNIQUE Bone densitometry of [...] Report See Note (Normal) Comments: Exam Number: [id number] ULTRASOUND OF ABDOMINAL AORTA HISTORYFamily history of [...] in size. Reported By: CHASTITY RETANA M.D. 83-Qxw-601186:06 URINE MEHREEN CULTURE-SUNNY COL Comments: PATIENT NOT FASTINGClinical Information: SRC:SAE ROBERTO [id number] PERFORMED BY: [facility]allin6370 [facility] [id number] COUNT ([id number]) Result 1 Proteus mirabilis Comments: 2,000 Colonies/mL [...] PATIENT WAS FASTINGClinical Information: ADD DRAW FEE 557650 ADD J 76680 PERFORMED BY: Animoto Jsbmxf4574 [facility] [id number] ([id number]) Albumin, Serum 4.0 g/dL (Normal) Range: 3.5-5.5 Alkaline Phosphatase, S 91 [iU]/L (Normal) Range: 25-150 ALT (SGPT) 18 [iU]/L (Normal) Range: 0-40 AST (SGOT) 21 [iU]/L (Normal) Range: 0-40 Bilirubin, Direct 0.11 mg/dL (Normal) Range: 0.00-0.40 Bilirubin, Total 0.4 mg/dL (Normal) Range: 0.1-1.2 Protein, Total, Serum 6.8 g/dL (Normal) Range: 6.0-8.5 :19 LIPID PANEL (27821) Comments: PATIENT WAS FASTINGPERFORMED BY: TARAS [facility] Sxhpem8319 [facility] [id number] Cholesterol, Total 159 mg/dL (Normal) Range: 100-199 HDL Cholesterol 41 mg/dL (Normal) Range: 40-59 Comments: EFFECTIVE APRIL 30, 2008 the reference interval for HDL-C will be changing to: >39 mg/dL LDL Cholesterol Calc 80 mg/dL (Normal) Range: 0-99 LDL/HDL Ratio 2.0 {ratio_units} (Normal) Range: 0.0-3.2 Triglycerides 192 mg/dL (Abnormal) Range: 0-149 VLDL Cholesterol Edgardo 38 mg/dL (Normal) Range: 5-40 19-Dgt-045795:08 Urinalysis, Office (86734) Comments: done km UA - BILIRUBIN Negative (Normal) UA - BLOOD Negative (Normal) UA - GLUCOSE Negative (Normal) UA - KETONES Negative mg/dL (Normal) UA - LEUKOCYTE ESTERASE Small (Normal) UA - NITRITE Negative (Normal) UA - PH 6.0 (Normal) UA - PROTEIN Negative mg/dL (Normal) UA - SPECIFIC GRAVITY 1.015 (Normal) URINE UROBILINGN SUNNY TIMED Normal mg/dL (Normal) 55-Jzj-56446:25 HgA1C , Office (12165) HgA1C , Office 5.7 % (Normal) Range: 4.6 - 7.1 95-Pgj-36968:25 Blood Glucose , Office (43854) Blood Glucose , Office 127 (Normal) 64-Iqr-896542:47 UNILAT LT DIAG DIGITAL & CAD Radiology Report See Note (Normal) Comments: Exam Number: [id number] MAMMOGRAM, UNILATERAL LEFT DIAGNOSTIC DIGITAL AND CAD [...] mammograms werealso examined with computer-aided detection software ([employer] Reported By: CHASTITY RETANA M.D. 43-Tce-44347:10 BILAT SCRN DIGITAL & CAD Radiology Report See Note (Normal) Comments: Exam Number: [id number] MAMMOGRAM, BILATERAL SCREENING DIGITAL AND CAD HISTORYRoutine [...] mammograms werealso examined with computer-aided detection software ([employer], [employer] Reported By: CHASTITY RETANA M.D. :36 HgA1C , Office (76512) HgA1C , Office 7.4 % (Abnormal) Range: 4.6 - 7.1 :36 Blood Glucose , Office (20544) Blood Glucose , Office 168 (Normal) 10-Yyg-572535:15 COMP METABOLIC A/G 1.1 {RATIO} (Normal) Range: [...] T PROT 7.3 g/dL (Normal) Range: 6.4-8.2 :15 LIPID CHOL 165 mg/dL (Normal) Comments: <200 [...] mg/dL VLDL 27 mg/dL (Normal) Range: 5-40 :15 MICROALBUMIN,UR 6.7 mg/L (Normal) :15 TSH 1.71 {uIU/mL} (Normal) Range: 0.34-4.82 :46 CBC WITH MANUAL DIFF (00403) Comments: PATIENT NOT FASTINGClinical Information: ADD [id number] ADD [id number] PERFORMED BY: TARAS LabCoLourdes Medical Center of Burlington CountyTqptmz5023 [facility] [id number] Baso (Absolute) 0.0 {x10E3/uL} (Normal) Range: 0.0-0.2 [...] Report See Note (Normal) Comments: Exam Number: [id number] MYOCARDIAL PERFUSION SCAN TECHNIQUEThe patient was injected [...] FLOR WEI M.D. :44 HgA1C , Office (10573) HgA1C , Office 7.2 % (Abnormal) Range: 4.6 - 7.1 :44 Blood Glucose , Office (26340) Blood Glucose , Office 141 (Normal) :48 HgA1C , Office (31309) HgA1C , Office 7.3 % (Abnormal) Range: 4.6 - 7.1 :47 Blood Glucose , Office (11768) Blood Glucose , Office 148 (Normal) 31-Bsl-019585:12 COMP METABOLIC A/G 1.0 {RATIO} (Normal) Range: [...] T PROT 7.6 g/dL (Normal) Range: 6.4-8.2 :12 LIPID CHOL 171 mg/dL (Normal) Comments: <200 [...] mg/dL VLDL 34 mg/dL (Normal) Range: 5-40 94-Uca-228316:12 TSH 1.61 {uIU/mL} (Normal) Range: 0.34-4.82 :10 [...] Range: 4.4-11.0 :46 Blood Glucose , Office (34192) Blood Glucose , Office 163 (Normal) :24 HgA1C , Office (33864) HgA1C , Office 6.6 % (Normal) Range: 4.6 - 7.1 :24 Blood Glucose , Office (39243) Blood Glucose , Office low (Normal) :09 HgA1C , Office (69607) Comments: done HgA1C , Office 6.5 % (Normal) Range: 4.6 - 7.1 :09 Blood Glucose , Office (60753) Comments: done Blood Glucose , Office 161 [...] (Normal) Range: 0.34-4.82 :05 HgA1C , Office (66258) HgA1C , Office 7.2 % (Abnormal) Range: 4.6 - 7.1 :05 Blood Glucose , Office (46117) Blood Glucose , Office 114 (Normal) :35 [...] 3.5-5.1 NA 139 mmol/L (Normal) Range: 136-145 28-Sep-20066:15 CBC Comments: COMMENTS: IN AMPrecautions*: NOT APPLICABLE HCT 39.8 % (Normal) Range: 37-47 HGB 13.6 g/dL (Normal) Range: 12.0-16.0 MCH 30.2 pg (Normal) Range: 27.0-32.0 MCHC 34.2 g/dL (Normal) Range: 32-36 MCV 88.3 fL (Normal) Range: 81-99 PLT 339 K/mm3 (Normal) Range: 150-450 RBC 4.50 {M/mm3} (Normal) Range: 4.2-5.4 RDW 12.9 % (Normal) Range: 11.6-14.6 WBC 7.4 K/mm3 (Normal) Range: 4.4-11.0 9-Biv-330430:14 CHEST, PA AND LATERAL Radiology Report See Note (Normal) Comments: Exam Number: [id number] CHEST, PA AND LATERAL HISTORYShortness of breath. FINDINGSCardiac configuration is normal. There is mild overinflation of thelungs. No acute infiltrate, effusion, or pneumothora x is identified. IMPRESSIONNo acute changes noted in the lungs. Reported By: FLOR CHOWDHURY M.D. 83-Knw-655406:59 CHEST, PA AND LATERAL Radiology Report See Note (Normal) Comments: Exam Number: [id number] PA AND LATERAL CHEST HISTORY Being done for shortness of breath. FINDINGSCardiac configuration is upper limits of normal to mildly enlarged. No acute infiltrate, effusion, or pn eumothorax is identified.There are a few scattered densities in both lower lungs, thought to beold granulamatous changes and unchanged from 06/16/06. There are mildemphysematous changes. IMPRESSION1. Chronic changes. No acute infiltrate identified. Reported By: FLOR CHOWDHUYR M.D. 45-Zcw-485988:59 JHONNY 82880 59 U/L (Normal) Range: 12-68 Comments: Performed At: [address] [id number] 51-Zvz-761735:06 JHONNY 44633 61 U/L (Normal) Range: 12-68 27-Qyi-664393:06 REBECCA-D 309205 REBECCA-DIRECT 31 U/mL (Normal) Range: 0-99 Comments: Negative <100 Equivocal 100 - 120 Positive >120 23-Alf-886338:06 C-REACTIVE PROT 7.75 mg/L (Abnormal) Range: 0.0-6.0 Comments: Test performed using the Dimension C-Reactive ProteinExtended Range assay method. This assay meets the AHA/CDC 2003 recommendations fordetermining patients at high risk for cardiovasculardisease. Reference: High risk CRP >3.0 mg/L 33-Esz-355624:06 CBCD,SMEAR DIFF CELLS COUNTED 100 (Normal) EOS [...] 47-70 WBC 4.4 K/mm3 (Normal) Range: 4.4-11.0 03-Woh-022091:06 ESR SED RATE 5 mm/h (Normal) Range: 0-30 37-Gjw-279340:06 HISTOPL [id number] SeeNote (Normal) Comments: Result: Negative Performed At: [address] [id number] At: BNLabComarely [address] [id number] 00-Kri-784533:06 LDH 170 U/L (Normal) Range: 100-190 :06 RA LATEX 6502 4.4 {IU/mL} (Normal) Range: 0.0-13.9 17-Wig-575931:49 CBCD,SMEAR DIFF CELLS COUNTED 100 (Normal) EOS [...] 47-70 WBC 5.2 K/mm3 (Normal) Range: 4.4-11.0 :49 COMP METABOLIC A/G 1.0 {RATIO} (Normal) Range: [...] (Normal) Range: 0.34-4.82 :31 HgA1C , Office (47816) HgA1C , Office 7.9 % (Abnormal) Range: 4.6 - 7.1 :31 Blood Glucose , Office (13393) Blood Glucose , Office 302 (Normal) Plan [...] Make follow up apt with [facility] SpecialistMaximino on September 23 between 2-4 Indication: Acute exacerbation of COPD with asthma [...] Wheezing Cough : Follow up tomorrow with [facility] Indication: Cough Unspecified asthma with (acute) exacerbation [...] - Strool Based DNA Test, CRC SCREEN (78652)Indication: Colon cancer screening (Renamed from Encounter for screening for malignant neoplasm of colon) On: 61-Upx-427913:45 Request Cologuard - Strool Based DNA Test, CRC SCREEN (22526)Indication: Colon cancer screening (Renamed from Encounter for screening for malignant neoplasm of colon) On: 41-Ebt-487408:02 Request GLUCOSE (59908)Indication: Hypoglycemia On: 87-Ufw-482103:48 Request Cortisol,Urinary Free 24- Hour Urine (91571)Indication: Adrenal adenoma, right On: 33-Mqw-380487:54 Request Catecholamines,24-Hour Urine (72641)Indication: Adrenal adenoma, right On: 06-Iwj-223632:54 Request DHEA (DEHYDROEPIANDROSTERONE) (71728)Indication: Adrenal adenoma, right On: 85-Svf-029863:51 Request METABOLIC PANEL, COMPREHENSIVE (86583)Indication: Adrenal adenoma, right On: 70-Twn-262178:51 Request LIPID PANEL (98772)Indication: Hypercholesteremia On: 40-Jzn-23127:23 Request HGB A1C (67447)Indication: Diabetes mellitus type II, controlled, with no complications (Renamed from Controlled type 2 diabetes mellitus without complication) On: 24-Jfb-652176:00 Request Comments: Jun 2016 1 week before apt METABOLIC PANEL, COMPREHENSIVE (12330)Indication: Hypercalcemia On: 64-Nwq-717129:03 Request GLUCOSE (15760)Indication: Type 2 or unspecified type diabetes mellitus, uncontrolled On: 47-Blt-388421:00 Request METABOLIC PANEL, COMPREHENSIVE (11451)Indication: Type 2 or unspecified type diabetes mellitus, uncontrolled On: :28 Request CALCIFEDIOL (26943)Indication: Vitamin D deficiency, unspecified On: :27 Request URINALYSIS, W/ MICRO (60602)Indication: Type 2 or unspecified type diabetes mellitus, uncontrolled On: :18 Request MICROALBUMIN: CREATININE RATIO (91205) AND (69235)Indication: Type 2 or unspecified type diabetes mellitus, uncontrolled On: :18 Request TSH (32826)Indication: Type 2 or unspecified type diabetes mellitus, uncontrolled On: :18 Request Lipid Panel (86960)Indication: Type 2 or unspecified type diabetes mellitus, uncontrolled On: :18 Request Metabolic Panel, Comprehensive (75428)Indication: Type 2 or unspecified type diabetes mellitus, uncontrolled On: :18 Request HGB A1C (70711)Indication: Type 2 or unspecified type diabetes mellitus, uncontrolled On: 37-Yry-679547:14 Request Comments: 6.6 CBC W/AUTO DIFF WBC (57950)Indication: Hypertension On: 02-Lnl-174581:07 Request METABOLIC PANEL, COMPREHENSIVE (20397)Indication: Hypertension On: 66-Hrv-779122:07 Request Vitamin D Hydroxy (26642)Indication: Vitamin D deficiency, unspecified On: 37-Yzc-494881:07 Request LIPID PANEL (11811)Indication: Other and unspecified hyperlipidemia On: 96-Ozo-218268:07 Request Vitamin D Hydroxy (80714)Indication: Vitamin D deficiency, unspecified On: :15 Request CBC with auto diff (72170)Indication: Hypertension On: :14 Request TSH (55335)Indication: Hypothyroidism On: :14 Request MICROALBUMIN: CREATININE RATIO (68295) AND (80968)Indication: Type 2 or unspecified type diabetes mellitus, uncontrolled On: :14 Request METABOLIC PANEL, COMPREHENSIVE (24858)Indication: Hypertension On: :14 Request LIPID PANEL (23107)Indication: Other and unspecified hyperlipidemia On: 4-Vmz-273305:13 Request MYOGLOBIN (10669)Indication: Chest pain On: :52 Request CPK MB FRACTION (66300)Indication: Chest pain On: :52 Request ASSAY, TROPONIN, QUANTITATIVE (aka Troponin I) (90524)Indication: Chest pain On: :52 Request CBC WITH MANUAL DIFF (97844)Indication: Acute exacerbation of COPD with asthma On: :52 Request CALCIFEDIOL (01199)Indication: Depression On: 22-Jlh-984883:50 Request Lipid Panel (39705)Indication: Other and unspecified hyperlipidemia On: :50 Request TSH (50487)Indication: Hypothyroidism On: :49 Request URINALYSIS (52265)Indication: Hypertension On: :49 Request CBC WITH MANUAL DIFF (36979)Indication: Hypertension On: :49 Request Metabolic Panel, Comprehensive (28854)Indication: Hypertension On: :49 Request CBC (AUTO) (47189)Indication: Hypercalcemia On: 4-Fky-450210:06 Request UPEP (60249)Indication: Hypercalcemia On: 9-Iji-310452:06 Request SPEP (83592)Indication: Hypercalcemia On: 0-Tjm-033832:06 Request SED RATE ERYTHROCYTE (31566)Indication: Hypercalcemia On: 9-Ruq-478363:06 Request CALCIUM SERUM (26591)Indication: Hypercalcemia On: 9-Thk-794213:05 Request PARATHORMONE (79539)Indication: Hypercalcemia On: 5-Tap-134711:05 Request FECAL OCCULT HGB ASSAY- tubes sent home (82060)Indication: Well woman exam with routine gynecological exam On: 57-Akb-079986:54 Request HgA1C , Office (16334)Indication: Type 2 or unspecified type diabetes mellitus, uncontrolled On: 80-Nau-358268:45 Request CBC WITH MANUAL DIFF (76284)Indication: Osteopenia On: 22-Qhd-697259:23 Request Vitamin D Hydroxy (65773)Indication: Vitamin D deficiency, unspecified On: 87-Brz-063211:22 Request TSH (72930)Indication: Hypothyroidism On: 28-Ygt-120979:22 Request METABOLIC PANEL, COMPREHENSIVE (10710)Indication: Sarcoidosis On: 24-Rfr-912842:21 Request Thin prep Pap (62653)Indication: Well woman exam with routine gynecological exam On: 3-Hqs-245823:16 Request FECAL OCCULT HGB ASSAY- tubes sent home (80007)Indication: Well woman exam with routine gynecological exam On: 2-Wvm-874219:16 Request METABOLIC PANEL, COMPREHENSIVE (69565)Indication: Type 2 or unspecified type diabetes mellitus, uncontrolled On: 1-Mnu-912282:14 Request CBC WITH MANUAL DIFF (69858)Indication: Type 2 or unspecified type diabetes mellitus, uncontrolled On: 3-Ghg-587576:14 Request MICROALBUMIN: CREATININE RATIO (61171) AND (16350)Indication: Type 2 or unspecified type diabetes mellitus, uncontrolled On: 4-Xha-871964:14 Request Vitamin D Hydroxy (54393)Indication: Vitamin D deficiency, unspecified On: 7-Jlh-449019:14 Request METABOLIC PANEL, COMPREHENSIVE (95373)Indication: Benign essential hypertension On: 0-Xku-064981:14 Request TSH (99648)Indication: Hypothyroidism On: 4-Sil-746331:14 Request LIPID PANEL (83008)Indication: Other and unspecified hyperlipidemia On: 4-Jmk-672621:14 Request HgA1C , Office (51754)Indication: Type 2 or unspecified type diabetes mellitus, uncontrolled On: 7-Mse-245743:43 Request CBC WITH MANUAL DIFF (98254)Indication: Benign essential hypertension On: 3-Kll-523081:22 Request METABOLIC PANEL, COMPREHENSIVE (78082)Indication: Benign essential hypertension On: 0-Dhl-673827:22 Request LIPID PANEL (56477)Indication: Other and unspecified hyperlipidemia On: 5-Idx-886690:22 Request MEHREEN CULTURE-OTHER (04860)Indication: Pharyngitis, acute On: 73-Kbo-837196:38 Request LIPID PANEL (98069)Indication: Other and unspecified hyperlipidemia On: :40 Request CBC WITH MANUAL DIFF (87311)Indication: DIABETES MELLITUS WITHOUT MENTION OF COMPLICATION; TYPE II OR UNSPECIFIED TYPE, NOT STATED UNCONTROLLED On: :40 Request METABOLIC PANEL, COMPREHENSIVE (06865)Indication: DIABETES MELLITUS WITHOUT MENTION OF COMPLICATION; TYPE II OR UNSPECIFIED TYPE, NOT STATED UNCONTROLLED On: 23-Ges-580006:40 Request Vitamin D Hydroxy (41903)Indication: Vitamin D deficiency, unspecified On: 31-Gfs-789504:38 Request CULTURE, SPUTUM (64215)Indication: Flu On: 14-Lzb-307820:45 Request nasal influenza swab (07099) M1Dwxhawppfu: Cough On: 5-Qob-641949:00 Request Rapid Flu (25670 x 2)Indication: Cough On: 6-Rbu-664009:53 Request HEPATIC FUNCTION PANEL (91756)Indication: Other and unspecified hyperlipidemia On: :42 Request LIPID PANEL (48463)Indication: Other and unspecified hyperlipidemia On: :42 Request Vitamin D Hydroxy (73946)Indication: Vitamin D deficiency, unspecified On: :41 Request Lipase (09760)Indication: Nausea On: :41 Request Amylase (53348)Indication: Nausea On: 42-Qjc-871922:41 Request C-REACTIVE PROTEIN (28874)Indication: SOB (shortness of breath) on exertion On: :39 Request SED RATE ERYTHROCYTE (42881)Indication: SOB (shortness of breath) on exertion On: :39 Request METABOLIC PANEL, COMPREHENSIVE (26121)Indication: SOB (shortness of breath) on exertion On: :39 Request CBC WITH MANUAL DIFF (81885)Indication: SOB (shortness of breath) on exertion On: :39 Request D-Dimer (51821)Indication: SOB (shortness of breath) on exertion On: :39 Request TSH (40722)Indication: Hypothyroidism On: 71-Rrw-060083:41 Request MICROALBUMIN: CREATININE RATIO (31632) AND (01260)Indication: DIABETES MELLITUS WITHOUT MENTION OF COMPLICATION; TYPE II OR UNSPECIFIED TYPE, NOT STATED UNCONTROLLED On: 44-Ipo-982337:37 Request HEPATIC FUNCTION PANEL (03609)Indication: Other and unspecified hyperlipidemia On: 73-Qvx-143702:37 Request LIPID PANEL (37976)Indication: Other and unspecified hyperlipidemia On: 34-Qaa-999194:37 Request URINE MEHREEN CULTURE-SUNNY COL COUNT (40881)Indication: Urinary frequency On: 38-Frv-832549:05 Request URINE MEHREEN CULTURE-SUNNY COL COUNT (77958)Indication: Urinary frequency On: 17-Dfa-033906:05 Request URINE MEHREEN CULTURE-SUNNY COL COUNT (68414)Indication: Urinary frequency On: 02-Shc-656022:05 Request URINE MEHREEN CULTURE-SUNNY COL COUNT (21697)Indication: Urinary frequency On: 77-Ggh-598280:05 Request URINE MEHREEN CULTURE-SUNNY COL COUNT (79168)Indication: Urinary frequency On: 01-Oqs-917415:05 Request URINE MEHREEN CULTURE-SUNNY COL COUNT (92876)Indication: Urinary frequency On: 56-Mip-186972:05 Request URINE MEHREEN CULTURE-SUNNY COL COUNT (00022)Indication: Urinary frequency On: 79-Xvc-081905:05 Request MEHREEN CULTURE-OTHER (72534)Indication: Family history of aneurysm On: 87-Ogi-005851:17 Request MICROALBUMIN URINE QUANT (12739)Indication: Type 2 or unspecified type diabetes mellitus, uncontrolled On: 67-Rol-27015:55 Request METABOLIC PANEL, COMPREHENSIVE (89009)Indication: Hypertension On: 71-Yjn-62853:54 Request TSH ([id number])Indication: Hypothyroidism On: 04-Pdr-05009:54 Request LIPID PANEL ([id number])Indication: Other and unspecified hyperlipidemia On: 73-Bef-32568:53 Request TSH ([id number])Indication: Hypothyroidism On: 66-Idy-741900:49 Request METABOLIC PANEL, COMPREHENSIVE ([id number])Indication: DIABETES MELLITUS WITHOUT MENTION OF COMPLICATION; TYPE II OR UNSPECIFIED TYPE, NOT STATED UNCONTROLLED On: 00-Kxg-447143:49 Request LIPID PANEL ([id number])Indication: DIABETES MELLITUS WITHOUT MENTION OF COMPLICATION; TYPE II OR UNSPECIFIED TYPE, NOT STATED UNCONTROLLED On: 26-Hra-860001:49 Request CBC WITH MANUAL DIFF ([id number])Indication: Anemia On: 21-Xmk-545081:49 Request Rapid Strep Test, Office ([id number])Indication: Pharyngitis, acute On: 95-Dsf-402541:27 Request Comments: neg HDL Cholesterol-Direct ([id number])Indication: Low HDL (under 40) On: 23-Vtv-985111:41 Request Comments: DO IN 3 MO LIPID PANEL ([id number])Indication: Other and unspecified hyperlipidemia On: 51-Zhd-118250:54 Request URINALYSIS W/O MICRO ([id number])Indication: Hypertension On: :54 Request TSH ([id number])Indication: Hypothyroidism On: 30-Kwx-753070:54 Request METABOLIC PANEL, COMPREHENSIVE ([id number])Indication: Hypertension On: :54 Request CBC WITH MANUAL DIFF ([id number])Indication: Anemia On: :54 Request TSH ([id number])Indication: Hypothyroidism On: :59 Request URINALYSIS W/O MICRO ([id number])Indication: Type 2 or unspecified type diabetes mellitus, uncontrolled On: :59 Request CBC WITH MANUAL DIFF ([id number])Indication: Type 2 or unspecified type diabetes mellitus, uncontrolled On: 70-Oot-06487:59 Request MICROALBUMIN: CREATININE RATIO ([id number]) AND ([id number])Indication: Type 2 or unspecified type diabetes mellitus, uncontrolled On: 38-Olu-89522:58 Request METABOLIC PANEL, COMPREHENSIVE ([id number])Indication: Type 2 or unspecified type diabetes mellitus, uncontrolled On: 56-Bqv-68358:58 Request HgA1C , Office ([id number])Indication: Abnormal glucose tolerance test On: 19-Etf-326520:35 Request Blood Glucose , Office ([id number])Indication: Abnormal glucose tolerance test On: 84-Txz-857748:35 Request Planned Encounters Medical; 3 Month FU - On: 21-Sep-2018 13:30 [facility] Dafne Jaime CNP, CNP, Mary E Planned Procedures DEXA SCAN AXIAL SKELETON ([id number])By: On: 17-May-2018 Intent Dafne Jaime CNP, CNP, Mary E SCREENING DIGITAL TOMOSYNTHESIS OF On: 17-May-2018 Intent BREAST ([id number])By: Dafne Jaime CNP, CNP, Mary E CT - LDCT CHEST ( WITHOUT CONTRAST On: 02-May-2018 Intent )By: Dafne Jaime CNP, CNP, Mary E PFT - Before and After SpiroBy: On: 02-May-2018 Intent Dafne Jaime CNP, CNP, Mary E SIX MINUTE WALK TEST ([id number])By: On: 20-Apr-2018 Intent Visit, Nurse SPIROMETRY PERFORMED ([id number])By: On: 20-Apr-2018 Intent Visit, Nurse SPIROMETRY PERFORMED ([id number])By: On: 20-Apr-2018 Intent Visit, Nurse INFUSION, NORMAL SALINE SOLUTION , On: 24-Jan-2018 Intent 1000 CC (Special Coverage Comments: lot:[id number]:IV right anticub dose:1000ml given by:carmen Shay LPN Instructions Apply. See MCM: 2049) (J7030)By: Dafne Jaime CNP, CNP, Mary E IV Needle placement ([id number])By: On: 24-Jan-2018 Intent Dafne Jaime CNP, CNP, Mary E Radiology - Lumbar SpineBy: On: 23-Dec-[address] - Abdomen & Pelvis Stone On: 23-Dec-2017 Intent ProtocolBy: Yoselin Oconnell Comments: STAT R/O Kidney stones bilateral COMP EYE EXAMINATION, ESTAB PATIENT On: 09-Dec-2017 Intent ([id number])By: Yoselin Oconnell Toradol Injection, 30 mg On: 12-Jul-2017 Intent ([id number])By: Dafne Jaime CNP, CNP, Mary E Toradol Injection, 30 mg On: 07-Apr-2017 Intent ([id number])By: Dafne Jaime CNP, CNP, Mary E Flu Vaccine (Quadrivalent) [id number]: On: 24-Mar-2017 Intent Dafne Jaime CNP, CNP, Mary E Toradol Injection, 30 mg On: 24-Mar-2017 Intent ([id number])By: Dafne Jaime CNP, CNP, Mary E Rocephin Injection, 2 Gram On: 18-Nov-2016 Intent ([id number])By: Dafne Jaime CNP, CNP, Mary E Aerosol Treatment ([id number])By: Addison On: 18-Nov-2016 Intent Dafne DOUGHERTY CNP, Mary E Solu -Medrol Injection, 125 mg On: 18-Nov-2016 Intent ([id number])By: Dafne Jaime CNP, CNP, Mary E MAMMOGRAM, SCREENING, BOTH BREAST On: 19-Aug-2016 Intent ([id number])By: Dafne Jaime CNP, CNP, Mary E DEXA SCAN AXIAL SKELETON ([id number])By: On: 19-Aug-2016 Intent Dafne Jaime CNP, CNP, Mary E GROUP PULMONARY REHABILITATION WITH On: 11-Feb-2016 Intent EXERCISE ([id number])By: Dafne Jaime CNP, CNP, Mary E Six Minute Walk Assessment On: 17-Oct-2015 Intent ([id number])By: Visit, Nurse PFT - CompleteBy: Vanessa Chen MD On: 24-Sep-2015 Intent M Rocephin Injection, 2 Gram On: 21-Aug-2015 Intent (J0696)By: Dafne Jaime CNP Comments: IV 2 gramsright [id number] guagetolerated welllot [id number] , Dafne SILVA CNP INFUSION, NORMAL SALINE SOLUTION , On: 21-Aug-2015 Intent 1000 CC (Special Coverage Instructions Apply. See MCM: 2049) (J7030)By: Dafne Jaime CNP, CNP, Mary E Solu -Medrol Injection, 125 mg On: 21-Aug-2015 Intent (J2930)By: Dafne Jaime CNP Comments: lot [id number] 12/1824 mcgIMright gmas, Dafne SILVA CNP Radiology - ChestBy: Addison DOUGHERTY, On: 20-Aug-2015 Intent Dafne Durán CNP Comments: call results to MCiesa INFUSION, NORMAL SALINE SOLUTION , On: 20-Aug-2015 Intent 250 CC ([id number])By: Dafne Jaime CNP, CNP, Mary E Rocephin Injection, 2 Gram On: 20-Aug-2015 Intent (J0696)By: Dafne Jaime CNP Comments: IV 2 gramsright oavjadk99 guagetolerated well, no redness notedlot [id number] 01/26/18as, Dafne SILVA CNP Solu -Medrol Injection, 125 mg On: 20-Aug-2015 Intent (J2930)By: Dafne Jaime CNP Comments: SOLUMEDROLlot:[id number]:ite:lt glutroute:IMdose:125mgDEMICK, MA DIVISION OPERATIONS MANAGER, Dafne Mota Aerosol Treatment ([id number])By: Harman On: 20-Aug-2015 Intent HELMET HAT PUNCHER, Gloria Rocephin Injection, 2 Gram On: 19-Aug-2015 Intent (J0696)By: Dafne Jaime CNP Comments: [id number] hip, IM JM, ANNELIESE DOUGHERTY, Dafne Mota Solu -Medrol Injection, 125 mg On: 19-Aug-2015 Intent (J2930)By: Dafne Jaime CNP Comments: [id number]-N hip, IMDose-prefilled syringegiven by:DOUGLAS House signed Dafne DOUGHERTY Aerosol Treatment ([id number])By: Harman On: 19-Aug-2015 Intent HELMET HAT PUNCHER, Gloria Solu -Medrol Injection, 125 mg On: 07-Jun-2015 Intent (J2930)By: Giovani Hutchins MD Comments: [id number]-E hip, IMDose-prefilled syringegiven by:ASHLY PERALES signed Rocephin Injection, 2 Gram On: 07-Jun-2015 Intent (J0696)By: Giovani Hutchins MD Comments: 2.1135358711x2 grams rocephin IV22G, 1 inchSite: existing lock flushed easily before and after and then d/c for the weekendTolerated: wellno redness or swelling, no s/s infiltrationML, HELMET HAT PUNCHER INFUSION, NORMAL SALINE SOLUTION , On: 07-Jun-2015 Intent 250 CC ([id number])By: Giovani Hutchins MD INFUSION, NORMAL SALINE SOLUTION , On: 06-Jun-2015 Intent 250 CC ([id number])By: Giovani Hutchins MD Rocephin Injection, 2 Gram On: 06-Jun-2015 Intent (J0696)By: Giovani Hutchins MD Comments: 569290z0.00147 gramsIV Therapy izzmvaxmu05V, 1 inchSite: R ac - lock flushed nicely and left in place for tomorrowTolerated: well x 1st attemptno redness or swelling, no s/s infiltrationML, HELMET HAT PUNCHER Solu -Medrol Injection, 125 mg On: 06-Jun-2015 Intent (J2930)By: Giovani Hutchins MD Comments: [id number] hip, IMML, HELMET HAT PUNCHER Radiology - ChestBy: Liset HUTCHINSON, On: 06-Jun-2015 Intent Giovani Comments: Acute execerbation of COPD?PNA Aerosol Treatment (35950)By: Liset On: 06-Jun-2015 Intent Giovani HUTCHINSON Overnight Pulse OX ([id number])By: Marquise On: 03-Jun-2015 Intent Jackie JHAVERI Six Minute Walk Assessment On: 29-May-2015 Intent ([id number])By: Jackie Christina DO Overnight Pulse OX (90109)By: Marquise On: 29-May-2015 Intent Jackie JHAVERI MAMMOGRAM, SCREENING, BOTH BREAST On: 03-May-2015 Intent ([id number])By: Jackie Christina DO Six Minute Walk Assessment On: 25-Feb-2015 Intent ([id number])By: Jackie Christina DO Overnight Pulse OX (80129)By: Marquise On: 25-Feb-2015 Jackie Mena DO BILATERAL MAMMOGRAMS ([id number])By: On: 26-Nov-2014 Intent Jackie Christina DO EKG (59312)By: Jackie Christina DO On: 26-Nov-2014 Intent Comments: ekg showed normal sinus rhythym, normal axis, no acute st/t wave changes twave inversion ant no change Solu -Medrol Injection, 125 mg On: 08-Aug-2014 Intent (J2930)By: Dafne Jaime CNP Comments: [id number], IMR hip, IMJM, MAGISTRATE Dafne DOUGHERTY Rocephin Injection, 2 Gram On: 08-Aug-2014 Intent (J0696)By: Dafne Jaime CNP Comments: 9.6058462134u9 grams IV R ac, x 1 attempt - tolerated well SHIRA Brito CNP, Mary E INFUSION, NORMAL SALINE SOLUTION , On: 08-Aug-2014 Intent 250 CC (J7050)By: Dafne Jaime CNP, CNP, Mary E IV Needle placement (98709)By: On: 07-Aug-2014 Intent Dafne Jaime CNP, CNP, Mary E Comments: 22G insyte initiated on 1st attempt w/o difficulty, no s/s redness, swelling infiltration, infusing on gravity pole at 38gtts/min, dsg dry intact, catheter removed intact- tolerated well- CTyler HELMET HAT PUNCHER Solu -Medrol Injection, 125 mg On: 07-Aug-2014 Intent (J2930)By: Dafne Jaime CNP Comments: Lot:[id number]:12/2016Dose:125mgRoute:imSite:r armGiven By:Dafne Alejandro CNP INFUSION, NORMAL SALINE SOLUTION , On: 07-Aug-2014 Intent 250 CC (J7050)By: Dafne Jaime CNP, CNP Radha Rocephin Injection, 2 Gram On: 07-Aug-2014 Intent (J0696)By: Dafne Jaime CNP Comments: lot # [id number]- 02/26/2017site-R Median antecuberoute-IVdose- 2GCTyler HELMET HAT PUNCHER Dafne DOUGHERTY Aerosol Treatment ([id number])By: Addison On: 07-Aug-2014 Intent Dafne DOUGHERTY CNP Radha Comments: ipitropium- tolerated well- CTyler HELMET HAT PUNCHER Radiology - ChestBy: Addison DOUGHERTY, On: 06-Aug-2014 Intent Dafne Durán CNP Rocephin Injection, 2 Gram On: 06-Aug-2014 Intent (J0696)By: Dafne Jaime CNP, CNP, Mary E Solu -Medrol Injection, 125 mg On: 06-Aug-2014 Intent (J2930)By: Dafne Jaime CNP, CNP Radha Aerosol Treatment ([id number])By: On: 31-Jul-2014 Intent Vanessa Chen MD Solu- Medrol Injection, 125mg On: 31-Jul-2014 Intent (J2930)By: Vanessa Chen MD Eprescribed prescriptions On: 31-Jul-2013 Intent (G8553)By: Ivanna Maddox Overnight Pulse OX (46028)By: Marquise On: 10-May-2013 Jackie Mena DO Spirometry (13877)By: Marquise JHAVERI, On: 02-May-2013 Intent Jackie Rondon Comments: good effort cure mild obst EKG (86158)By: Ivanna Maddox On: 02-May-2013 Intent Comments: ekg showed normal sinus rhythym, normal axis, no acute st/t wave changes no change in twave inversion ant Six Minute Walk Assessment On: 02-May-2013 Intent (16864)By: Jackie Christina DO Overnight Pulse OX (97698)By: Marquise On: 02-May-2013 Jackie Mena DO Eprescribed prescriptions On: 02-May-2013 Intent (G8553)By: Ivanna Maddox MAMMOGRAM, SCREENING, BOTH BREASTS On: 18-Apr-2013 Intent ([id number])By: Jackie Christina DO Clinical Breast Examination On: 18-Apr-2013 Intent (G0101)By: Ivanna Maddox Solu- Medrol Injection, 125mg On: 26-Oct-2012 Intent (J2930)By: Jackie Christina DO Comments: Lot #[id number]-R hip, IMDose- prefilled syringegiven by:VANESA House signed Aerosol Treatment (71521)By: Marquise On: 26-Oct-2012 Jackie Mena DO Eprescribed prescriptions On: 26-Oct-2012 Intent (G8553)By: Ivanna Maddox Pulse Oximetry (71476)By: Tan On: 26-Oct-2012 Rajesh Goncalves Comments: 98% Spirometry (77271)By: Abi JHAVERI On: 06-Sep-2012 Rajesh Christian Comments: mild restrictive Aerosol Treatment (92428)By: Abi On: 06-Sep-2012 Anahi Mena DO Comments: done pt tolerated well. Albuterol 0.83%-- better a/e no wheeze Solu- Medrol Injection, 125mg On: 06-Sep-2012 Intent (J2930)By: Anahi Alex DO Comments: 2ml given im lt hip lot [id number] exp 04/11 Eprescribed prescriptions On: 06-Sep-2012 Intent (G8553)By: Anahi Alex DO Pulse Oximetry (79347)By: Abi On: 06-Sep-2012 Intent Anahi JHAVERI Eprescribed prescriptions On: 22-Aug-2012 Intent (G8553)By: Ivanna Maddox Overnight Pulse OX (15820)By: Marquise On: 03-May-2012 Jackie Mena DO Comments: Patient demonstrates understanding of how to operate [place]rivera. Alisha. Eprescribed prescriptions On: 27-Apr-2012 Intent (G8553)By: Ivanna Maddox Six Minute Walk Assessment On: 01-Apr-2012 Intent (09214)By: Virgen Real LPN PNEUM VAC ADLT/IMUMNOSPR, SBC/INTRM On: 18-Mar-2012 Intent (43405)By: Jackie Christina DO Comments: Lot:[id number]:08-10-13Dose:0.5 mLRoute: Site:[facility] By:FADIA signed PFT - CompleteBy: Jackie Christina DO On: 18-Mar-2012 Intent Six Minute Walk Assessment On: 18-Mar-2012 Intent (55432)By: Jackie Christina DO Overnight Pulse OX (76179)By: Marquise On: 18-Mar-2012 Jackie Mena DO IMMUNIZ ADMNIN, 1 VAC, SNGL/COMBO On: 18-Mar-2012 Intent (31168)By: Jackie Christina DO DXA, BONE DENSITY, AXIAL SKELETON On: 18-Mar-2012 Intent (88933)By: Jackie Christina DO MAMMOGRAM, SCREENING, BOTH BREASTS On: 18-Mar-2012 Intent (12364)By: Jackie Christina DO CT - ChestBy: Jackie Christina DO On: 03-Feb-2012 Intent Solu- Medrol Injection, 125mg On: 30-Sep-2011 Intent (J2930)By: Jackie Christina DO Comments: Lot #[id number]-right [id number] by: Tiny Cox LPN Aerosol Treatment (06829)By: Marquise On: 30-Sep-2011 Intent DO, Jackie A Pulse Oximetry (26806)By: Tan On: 30-Sep-2011 Intent Ivanna Comments: 97% Solu -Medrol Injection, 125 mg On: 25-Sep-2011 Intent (J2930)By: Dafne Jaime CNP, CNP Radha Pulse Oximetry (23629)By: Addison On: 25-Sep-2011 Intent LADONNA RadhaDafne Redd CNP FLU VAC, SPLIT, >3 YEARS, INTRAMUSC On: 01-Jul-2011 Intent (60464)By: Ivanna Maddox Comments: work MAMMOGRAM, SCREENING, BOTH BREASTS On: 31-Mar-2011 Intent (28523)By: Jackie Christina DO Solu -Medrol Injection, 125 mg On: 31-Mar-2011 Intent (J2930)By: Jackie Christina DO Eprescribed prescriptions On: 31-Mar-2011 Intent (G8553)By: Jackie Christina DO Solu- Medrol Injection, 125mg On: 16-Dec-2010 Intent (J2930)By: Jackie Christina DO Comments: lot # [id number]- [id number]-SENOCCtvllh-IVohqr- 2ML tolerated well CHenderson HELMET HAT PUNCHER Aerosol Treatment (25245)By: Marquise On: 16-Dec-2010 Jackie Mena DO Comments: tolerated well Pulse Oximetry (93332)By: Marquise JHAVERI On: 16-Dec-2010 Intent Jackie Rondon Comments: 96% on room air Eprescribed prescriptions On: 16-Dec-2010 Intent (G8553)By: Jackie Christina DO Pulse Oximetry (10901)By: Tan On: 15-Jul-2010 Intent Ivanna Comments: 96% TD Injection , IM (49658)By: Marquise On: 04-Jul-2010 Intent Jackie JHAVERI Comments: Lot #[id number]-2/12Site-R DltdDose 0.5mlgiven by:UDAY EKG (99029)By: Ivanna Maddox On: 04-Jul-2010 Intent Radiology - Lumbar SpineBy: Ciesa On: 12-May-2010 Intent LADONNA RadhaNakul Jaime CNP Radha MAMMOGRAM, SCREENING, BOTH BREASTS On: 19-Nov-2009 Intent (15613)By: Jackie Christina DO MAMMOGRAM, SCREENING, BOTH BREASTS On: 07-May-2009 Intent ([id number])By: Jackie Christina DO EKG (34307)By: Ivanna Maddox On: 07-May-2009 Intent Comments: ekg showed normal sinus rhythym, normal axis, no acute st/t wave changes Aerosol Treatment (37495)By: On: 22-Apr-2009 Intent Ivanna Aly Comments: post aerosol tx, pt states i can breath a whole lot better Radiology - Chest- PA and LatBy: On: 19-Apr-2009 Intent Anahi Alxe DO Pulse Oximetry (54311)By: Addison On: 04-Apr-2009 Intent LADONNA Radha Cigreg DIVISION OPERATIONS MANAGER, Radha Aerosol Treatment (26724)By: Marquise On: 21-Sep-[address] - ChestBy: Jackie Christina DO On: 21-Sep-2008 Intent Comments: please also look at right upper quadrant- do stat and call wet read Pulse Oximetry (28651)By: Tan, On: 21-Sep-2008 Intent Ivanna Comments: 97% Radiology - Lumbar SpineBy: Marquise On: 14-Jun-2008 Intent Jackie JHAVERI Comments: bone density suggest possible compression at l5 Ultrasound - AortaBy: Marquise JHAVERI, On: 24-Apr-2008 Intent Jackie Rondon Holter Moniter ([id number])By: Marquise JHAVERI, On: 24-Apr-2008 Intent Jackie A EKG (32478)By: Jackie Christina DO On: 24-Apr-2008 Intent Comments: ekg showed normal sinus rhythym, normal axis, no acute st/t wave changes negative precordial t waves == no change DXA, BONE DENSITY, AXIAL SKELETON On: 24-Apr-2008 Intent (87922)By: Jackie Christina DO INFUSION, NORMAL SALINE SOLUTION , On: 09-Nov-2007 Intent 1000CC (Special Coverage Instructions Apply. See MCM: 2049) (J7050)By: Anahi Alex DO IV Needle placement (91841)By: On: 09-Nov-2007 Intent Anahi Alex DO Comments: PLACED 22 G R ANTECUBITAL - PT DENY WELLGOOD RETURN IV Infusion (03399)By: Abi JHAVERI, On: 09-Nov-2007 Rajesh Christian Nuclear Stress Test/Stress On: 17-Oct-2007 Intent SPECT/AdenosineBy: Jackie Christina DO Nuclear Stress Test/Stress On: 18-Jul-2007 Intent SPECT/AdenosineBy: Jer Christina DOa A EKG (63309)By: Jackie Christina DO On: 18-Jul-2007 Intent Comments: ekg showed normal sinus rhythym, normal axis, no acute st/t wave changes has neg twaves on precordium but are unchanged Pneumovax (57028)By: Marquise JHAVERI, On: 11-Apr-2007 Intent Jackie Rondon EKG (77037)By: Anahi Alex DO On: 19-Jan-2007 Intent Comments: NSR NONSPECIFIC CHANGES-- Pulse Oximetry (68497)By: Abi On: 24-Sep-2006 Intent Anahi JHAVERI Comments: 98% RA Aerosol Treatment ([id number])By: Abi On: 24-Sep-2006 Anahi Mena DO Comments: [...] 23-Sep-2006 Intent Anahi Alex DO Aerosol Treatment (51583)By: Abi On: 23-Sep-2006 Anahi Mena DO Comments: after aerosol- diffuse wheeze and rhonchi lil softer-- more air exchange though Pulse Oximetry (41467)By: Armond RN, On: 23-Sep-2006 Intent Karen Comments: 98% PNEUM VAC ADLT/IMUMNOSPR, SBC/INTRM On: 08-Jul-2006 Intent (27622)By: MARKIE Hayden IMMUNIZ ADMNIN, 1 VAC, SNGL/COMBO On: 08-Jul-2006 Intent (40051)By: MARKIE Hayden Planned Medications INFUSION, NORMAL SALINE SOLUTION , 1000 CC Ordered: 24-Jan-2018 Pending Ciesa DIVISION OPERATIONS MANAGER, Radha Ciesa DIVISION OPERATIONS MANAGER, Radha INFUSION, NORMAL SALINE SOLUTION , 1000 CC Ordered: 21-Aug-2015 Pending Ciesa DIVISION OPERATIONS MANAGER, Radha Ciesa DIVISION OPERATIONS MANAGER, Radha INFUSION, NORMAL SALINE SOLUTION , 250 CC Ordered: 20-Aug-2015 Pending Ciesa DIVISION OPERATIONS MANAGER, Radha Ciesa DIVISION OPERATIONS MANAGER, Radha INFUSION, NORMAL SALINE SOLUTION , 250 CC Ordered: 07-Jun-2015 Pending Liset HUTCHINSON, Giovani INFUSION, NORMAL SALINE SOLUTION , 250 CC Ordered: 08-Aug-2014 Pending Ciesa DIVISION OPERATIONS MANAGER, Radha Ciesa DIVISION OPERATIONS MANAGER, Radha INFUSION, NORMAL SALINE SOLUTION , 250 CC Ordered: 07-Aug-2014 Pending Ciesa DIVISION OPERATIONS MANAGER, Radha Ciesa DIVISION OPERATIONS MANAGER, Radha INFUSION, NORMAL SALINE SOLUTION , 250 CC Ordered: 06-Jun-2015 Pending Giovani Hutchins MD INJECTION, CEFTRIAXONE SODIUM, PER 250 MG Ordered: 21-Aug-2015 Pending Ciesa DIVISION OPERATIONS MANAGER, Radha Ciesa DIVISION OPERATIONS MANAGER, Radha INJECTION, CEFTRIAXONE SODIUM, PER 250 MG Ordered: 07-Jun-2015 Pending Giovani Hutchins MD INJECTION, CEFTRIAXONE SODIUM, PER 250 MG Ordered: 06-Jun-2015 Pending Giovani Hutchins MD INJECTION, CEFTRIAXONE SODIUM, PER 250 MG Ordered: 19-Aug-2015 Pending Ciesa DIVISION OPERATIONS MANAGER, Radha Ciesa DIVISION OPERATIONS MANAGER, Radha INJECTION, CEFTRIAXONE SODIUM, PER 250 MG Ordered: 08-Aug-2014 Pending Ciesa DIVISION OPERATIONS MANAGER, Radha Ciesa DIVISION OPERATIONS MANAGER, Radha INJECTION, CEFTRIAXONE SODIUM, PER 250 MG Ordered: 20-Aug-2015 Pending Ciesa DIVISION OPERATIONS MANAGER, Radha Ciesa DIVISION OPERATIONS MANAGER, Radha INJECTION, CEFTRIAXONE SODIUM, PER 250 MG Ordered: 07-Aug-2014 Pending Ciesa DIVISION OPERATIONS MANAGER, Radha Ciesa DIVISION OPERATIONS MANAGER, Radha INJECTION, CEFTRIAXONE SODIUM, PER 250 MG Ordered: 06-Aug-2014 Pending Ciesa DIVISION OPERATIONS MANAGER, Radha Ciesa DIVISION OPERATIONS MANAGER, Radha INJECTION, CEFTRIAXONE SODIUM, PER 250 MG Ordered: 18-Nov-2016 Pending Tgesa DIVISION OPERATIONS MANAGER, Dafne Acevedoa DIVISION OPERATIONS MANAGER, Radha INJECTION, KETOROLAC TROMETHAMINE, PER 15 MG Ordered: 24-Mar-2017 Pending Ciesa DIVISION OPERATIONS MANAGER, Radha Tgesa DIVISION OPERATIONS MANAGER, Radha INJECTION, KETOROLAC TROMETHAMINE, PER 15 MG Ordered: 07-Apr-2017 Pending Ciesa DIVISION OPERATIONS MANAGER, Dafne Acevedoa DIVISION OPERATIONS MANAGER, Radha INJECTION, KETOROLAC TROMETHAMINE, PER 15 MG Ordered: 12-Jul-2017 Pending Ciesa DIVISION OPERATIONS MANAGER, Radha Ciesa DIVISION OPERATIONS MANAGER, Radha INJECTION, METHYLPREDNISOLONE SODIUM SUCCINATE, UP TO 125 MG Ordered: 18-Nov-2016 Pending Curtisa DIVISION OPERATIONS MANAGER, Radha Tgesa DIVISION OPERATIONS MANAGER, Radha INJECTION, METHYLPREDNISOLONE SODIUM SUCCINATE, UP TO 125 MG Ordered: 31-Mar-2011 Pending Marquise DO, Jackie A INJECTION, METHYLPREDNISOLONE SODIUM SUCCINATE, UP TO 125 MG Ordered: 21-Aug-2015 Pending Curtisa DIVISION OPERATIONS MANAGER, Dafne Acevedoa DIVISION OPERATIONS MANAGER, Radha INJECTION, METHYLPREDNISOLONE SODIUM SUCCINATE, UP TO 125 MG Ordered: 25-Sep-2011 Pending Ciesa DIVISION OPERATIONS MANAGER, Dafne Acevedoa DIVISION OPERATIONS MANAGER, Radha INJECTION, METHYLPREDNISOLONE SODIUM SUCCINATE, UP TO 125 MG Ordered: 06-Aug-2014 Pending Curtisa DIVISION OPERATIONS MANAGER, Radha Curtisa DIVISION OPERATIONS MANAGER, Radha INJECTION, METHYLPREDNISOLONE SODIUM SUCCINATE, UP TO 125 MG Ordered: 07-Jun-2015 Pending Giovani Hutchins MD INJECTION, METHYLPREDNISOLONE SODIUM SUCCINATE, UP TO 125 MG Ordered: 19-Aug-2015 Pending Ciezraa DIVISION OPERATIONS MANAGER, Dafne Acevedoa DIVISION OPERATIONS MANAGER, Radha INJECTION, METHYLPREDNISOLONE SODIUM SUCCINATE, UP TO 125 MG Ordered: 31-Jul-2014 Pending Kita HUTCHINSON, Vanessa M INJECTION, METHYLPREDNISOLONE SODIUM SUCCINATE, UP TO 125 MG Ordered: 30-Sep-2011 Pending Marquise DO, Jackie A INJECTION, METHYLPREDNISOLONE SODIUM SUCCINATE, UP TO 125 MG Ordered: 06-Jun-2015 Pending Giovani Hutchins MD INJECTION, METHYLPREDNISOLONE SODIUM SUCCINATE, UP TO 125 MG Ordered: 08-Aug-2014 Pending Ciesa DIVISION OPERATIONS MANAGER, Radha Ciesa DIVISION OPERATIONS MANAGER, Radha INJECTION, METHYLPREDNISOLONE SODIUM SUCCINATE, UP TO 125 MG Ordered: 06-Sep-2012 Pending Anahi Alex DO INJECTION, METHYLPREDNISOLONE SODIUM SUCCINATE, UP TO 125 MG Ordered: 07-Aug-2014 Pending Dafne Jaime CNP, CNP, Dafne Mota INJECTION, METHYLPREDNISOLONE SODIUM SUCCINATE, UP TO 125 MG Ordered: 26-Oct-2012 Pending Jackie Christina DO A INJECTION, METHYLPREDNISOLONE SODIUM SUCCINATE, UP TO 125 MG Ordered: 20-Aug-2015 Pending Addison DIVISION OPERATIONS MANAGERDafne CNP, Dafne Mota INJECTION, METHYLPREDNISOLONE SODIUM SUCCINATE, UP TO 125 MG Ordered: 16-Dec-2010 Pending Marquise DO Jackie A Instructions Name Dates Details Nonsmoker : How [...] BLD CNT, COMPL CBC W/AUTO DIFF WBC (70843) Indication: Benign essential hypertension Other and unspecified hyperlipidemia : DISCONTINUED - LIPID PANEL (38265) Indication: Other and unspecified hyperlipidemia Hypothyroidism : DISCONTINUED - TSH (81376) Indication: Hypothyroidism Other and unspecified hyperlipidemia : DISCONTINUED - LIPID PANEL (12571) Indication: Other and unspecified hyperlipidemia DIABETES MELLITUS WITHOUT MENTION OF COMPLICATION; TYPE II OR UNSPECIFIED TYPE, NOT STATED UNCONTROLLED : DISCONTINUED - MICROALBUMIN: CREATININE RATIO (39957) AND (52797) Indication: DIABETES MELLITUS WITHOUT MENTION OF COMPLICATION; TYPE II OR UNSPECIFIED TYPE, NOT STATED UNCONTROLLED DIABETES MELLITUS WITHOUT MENTION OF COMPLICATION; TYPE II OR UNSPECIFIED TYPE, NOT STATED UNCONTROLLED : DISCONTINUED - METABOLIC PANEL, COMPREHENSIVE (03120) Indication: DIABETES MELLITUS WITHOUT MENTION OF COMPLICATION; TYPE II OR UNSPECIFIED TYPE, NOT STATED UNCONTROLLED DIABETES MELLITUS WITHOUT MENTION OF COMPLICATION; TYPE II OR UNSPECIFIED TYPE, NOT STATED UNCONTROLLED : DISCONTINUED - CBC WITH MANUAL DIFF ([id number]) Indication: DIABETES MELLITUS WITHOUT MENTION OF COMPLICATION; TYPE II OR UNSPECIFIED TYPE, NOT STATED UNCONTROLLED DIABETES MELLITUS WITHOUT MENTION OF COMPLICATION; TYPE II OR UNSPECIFIED TYPE, NOT STATED UNCONTROLLED : DISCONTINUED - METABOLIC PANEL, COMPREHENSIVE ([id number]) Indication: DIABETES MELLITUS WITHOUT MENTION OF COMPLICATION; [...] mellitus, uncontrolled : DISCONTINUED - LIPID PANEL ([id number]) Indication: Type 2 or unspecified type diabetes [...] Instructions Indication: Meralgia paresthetica Encounters Annotation/Addendum On: 08-Jul-2018 12:49 Encounter Diagnosis: Chronic [...] patient does not have durable power of trust and estates attorney or living will. The patient has noticed dissatisfaction with life, dropping activ ities and interests, feeling emptiness in life, getting bored, poor spirits most of time, feeling sad most of time, feeling helpless, staying at home rather than doing something new or going out, having problems with memory than others and lack of energy. Other providers contributing to the patient's care are pipe bending machine operator (dr. granado) and other: ([facility]- pt see's eye jun 01 2018). N [...] effects and compliant with dosing regimen. Pat ient sleeps 6 hours per night. Nutrition: inappropriate [...] Current treatment includes cough suppressants (left over jewels-tussin from previous time). Note for Cold symptoms: [...] for Flu like symptoms: Son diagnosed with [id number] Diagnosis: BRONCHITIS, NOT SPECIFIED ACUTE OR CHRONIC [...] the patient is following up for inc lude All identified problems below ,blood sugar issues [...] he wants her to do exercise at [employer] and has her set up for activiity [...] instructions. Current medication use: no tatiana End: 17-Oct-2007 10:04 e effects and compliant with dosing regimen. Nutrition: inappropriate diet ,supplemental vitamins and low salt diet. The medical issues the patient is following up for include All identified problems be low ,blood sugar issues ,COPD ,depression ,high blood pressure ,high cholesterol ,hypothyroid and other (obesity, anemia, allergic rhinitis). fasting blood sugars : (180's). Note for Follow up for utilization review rn ayana medical issues: she is seeing Vannesa for her sarcoid and things are stable- [...] : (120's to 130's). Note for Mayte pastor up for chronic medical issues: she couldnt [...] for Follow up hospital: has appt with Vannesa Slaughter Diagnosis: COPD WITH (ACUTE) EXACERBATION (491.21), [...] dchild) ,depression in the past ,difficulty sleeping ,cash checker awakening ,episodes of spontaneous crying ,excessive sweating [...] Internal Medicine End: 11-Mar-2006 15:12 Payers MedicareMedical [employer] Vinson; a guarantor
--- OUTSIDE RECORDS SUMMARY | 2018-09-20 11:51 | XMS RPT_ITS | Continuity of Care Document ---
:1950 Author Organization [facility] Address [address] [place] [address] Phone Care Team Providers Name Role Phone Dafne Jaime CNP Unavailable Juan Catherine Unavailable Rogelio Granado Unavailable Lindsey Cheek Unavailable Unavailable Slarb SKI LIFT ATTENDANTGloria Unavailable Unavailable Yuval Rodas Unavailable Unavailable ROLLY LarsenN Yoselin Unavailable Unavailable Unavailable Unavailable Problems Name Dates [...] PFT's and to see Sibilia Status: Active COPD with acute exacerbation (Renamed from Acute exacerbation of chronic obstructive airways disease) (J44.1, 491.21) Status: Active Cough (R05, 786.2) 25-Sep-2011 Status: Active Cough (R05, 786.2) Status: Active Cough (R05, 786.2) Status: Active Current nonsmoker (Z78.9, V49.89) Status: Active Deliveries (Parity) Comments: 3 Status: Active Depression (F32.9, 311) Comments: chronic stable-continue present regimen Status: Active Diabetes mellitus type II, controlled, [...] count (D72.829, 288.60) Status: Active Encounter for gynecological examination without [...] (M25.551, 719.45) Status: Active Hypercalcemia (E83.52, 275.42) Status: Active Hypercalcemia (E83.52, 275.42) Status: Active [...] prn for 90 days Refills: 3 Ordered:18-Nov-2016 Addison DOUGHERTY Dafne Kriss DOUGHERTY Dafne Mota Start : 18-Nov-2016 Active CeleXA 40 MG Oral Tablet 1 (one) Tablet daily for 30 days Quantity: 30 {Tablet} Refills: 3 Ordered:08-Mar-2018 Addison DOUGHERTY Dafne Kriss DOUGHERTY Dafne Mota Start : 08-Mar-2018 Active Desoximetasone 0.05 % External Cream 1 Cream apply q 3 days sparingly prn for 90 days Quantity: 3 {Each} Refills: 1 Ordered:19-Aug-2016 Addison DOUGHERTY Dafne Kriss DOUGHERTY Dafne Mota Start : 19-Aug-2016 Active Desoximetasone 0.05 % External Cream 1 Cream apply q 3 days sparingly prn for 90 days Quantity: 3 {Tube} Refills: 3 Ordered:19-Aug-2016 Dafne Jaime CNP, CNP Dafne Mota Start : 19-Aug-2016 Active FreeStyle [...] {Strip} Refills: 3 Ordered:12-Jul-2017 Addison DOUGHERTY Dafne Lewalcon DOUGHERTY Dafne Mota Start : 12-Jul-2017 Active FreeStyle Lite Test In Vitro Strip 1 (one) Strip bid for 0 days Quantity: 180 {Strip} Refills: 3 Ordered:12-Jul-2017 Addison DOUGHERTY Dafne BOLDENpatrick DOUGHERTY Dafne Mota Start : 12-Jul-2017 Active GlyBURIDE 5 MG Oral Tablet 2 (two) Tablet BID for 0 days Quantity: 120 {Tablet} Refills: 6 Ordered:31-Dec-2017 Addison DOUGHERTY Dafne Lewalcon DOUGHERTY Dafne Mota Start : 31-Dec-2017 Active GlyBURIDE 5 MG Oral Tablet 2 (two) Tablet BID for 90 days Quantity: 180 {QS} Refills: 3 Ordered:31-Dec-2017 Addison DOUGHERTY Dafne Monterroso LADONNA Dafne Mota Start : 31-Dec-2017 Active HydroCHLOROthiazide 12.5 MG Oral Capsule 1 (one) Capsule qam for 0 days Quantity: 90 {Capsule} Refills: 3 Ordered:02-Feb-2018 Addison DOUGHERTY Dafne Lewalcon DOUGHERTY Dafne Mota Start : 02-Feb-2018 Active Irbesartan 75 MG Oral Tablet 2 (two) Tablet qhs for 0 days Quantity: 60 {Tablet} Refills: 11 Ordered:09-Mar-2018 Addison DOUGHERTY Dafne Monterroso LADONNA Dafne Mota Start : 09-Mar-2018 Active Levothyroxine Sodium 150 MCG Oral Tablet 1 (one) Tablet daily for 30 days Quantity: 30 {Tablet} Refills: 3 Ordered:11-Apr-2018 Addison DOUGHERTY Dafne Lewalcon DOUGHERTY Dafne Mota Start : 11-Apr-2018 Active Levothyroxine Sodium 150 MCG Oral Tablet 1 (one) Tablet daily for 90 days Quantity: 90 {QS} Refills: 3 Ordered:11-Apr-2018 Dafne Jaime CNP, CNP, Mary E Start : 11-Apr-2018 Active Metoprolol Succinate ER 100 MG Oral Tablet Extended Release 24 Hour 1 (one) Tablet daily for 0 days Quantity: 30 {Tablet} Refills: 3 Ordered:08-Mar-2018 Addison DOUGHERTY, Dafne Casper CNP Start : 08-Mar-2018 Active Qvar 40 MCG/ACT Inhalation Aerosol Solution 2 (two) Puff Puff bid for 0 days Quantity: 1 {Inhaler} Refills: 3 Ordered:17-Feb-2016 Deniserb SHIRAGloria Start : 17-Feb-2016 Active Simvastatin 40 MG Oral Tablet 1 (one) Tablet daily for 0 days Quantity: 90 {Tablet} Refills: 0 Ordered:28-Mar-2018 Addison DOUGHERTY, Dafne Casper CNP Start : 28-Mar-2018 Active Simvastatin 40 MG Oral Tablet 1 (one) Tablet daily for 30 days Quantity: 30 {Tablet} Refills: 3 Ordered:28-Mar-2018 Addison DOUGHERTY, Dafne Casper CNP Start : 28-Mar-2018 Active Victoza 18 MG/3ML Subcutaneous Solution Pen-injector 0.6 Pre-filled Pen Syringe daily for 90 days Quantity: 1 {Box} Refills: 3 Ordered:25-Jan-2018 Dafne Jaime CNP, CNP, Mary E Start : 25-Jan-2018 Active Comments:take 0.6 Victoza 18 MG/3ML Subcutaneous Solution Pen-injector 0.6 Pre-filled Pen Syringe daily for 90 days Quantity: 1 {Box} Refills: 6 Ordered:25-Jan-2018 Dafne Jaime CNP, CNP, Mary E Start : 25-Jan-2018 Active Comments:Start 0.6mg x 1 week, then 1.2 x a week, then 1.8 daily Vitamin D3 Super Strength 2000 UNIT Oral Capsule 1 (one) Capsule Capsule bid for 0 days Quantity: 60 {Capsule} Refills: 0 Ordered:02-Feb-2018 Addison DOUGHERTY, Dafne Casper CNP Start : 02-Feb-2018 Active Accu-Chek Saira In Vitro Strip uad [...] days Quantity: 120 {Tablet} Refills: 3 Ordered:24-Mar-2017 Curtisa FURNITURE UPHOLSTERER APPRENTICE, Dafne Lewa FURNITURE UPHOLSTERER APPRENTICE, Radha Start : 24-Mar-2017 End : 24-Mar-2017 Inactive Atenolol 50 MG Oral Tablet 1 (one) Tablet one in am, 2 in pm for 90 days Quantity: 180 {Tablet} Refills: 3 Ordered:24-Mar-2017 Ciezraa FURNITURE UPHOLSTERER APPRENTICE, [facility] Radha Start : 24-Mar-2017 End : 24-Mar-2017 Inactive [...] days Quantity: 20 {Capsule} Refills: 0 Ordered:15-Jun-2014 Addison DOUGHERTY, Dafne Monterroso LADONNA, Dafne Mota Start : 15-Jun-2014 End : 25-Jun-2014 Inactive [...] Inactive Comments:05/23/07 samples up front for pt pick up man/ko CRESTOR, 10MG (Oral Tablet) 1 tab Tablet [...] Ordered:09-Mar-2018 Addison DOUGHERTY, Dafne Monterroso CNP, Dafne Mtoa Start : 02-Feb-2018 End : 09-Mar-2018 Inactive [...] : 09-Dec-2017 End : 19-Jan-2018 Inactive Pen Oneill 31G X 6 MM Miscellaneous uad Misc [...] days Quantity: 20 {Tablet} Refills: 0 Ordered:19-Aug-2015 Tggreg FURNITURE UPHOLSTERER APPRENTICE, Dafne Kriss DOUGHERTY, Radha Start : 19-Aug-2015 End : 29-Aug-2015 [...] 24-Aug-2011 End : 03-Feb-2012 Inactive VITAMIN D, 47381BYOK (Oral Capsule) 1 (one) Capsule q week [...] Start : 04-Sep-2013 End : 27-Nov-2014 Discontinued BYETTA 5 MCG PEN, 5MCG/0.02ML (Subcutaneous Solution) 1 [...] Anahi Alex DO End : 12-Mar-2006 Discontinued Ergocalciferol 84415 UNIT Oral Capsule 1 (one) Capsule Capsule twice weekly for 0 days Quantity: 24 {QS} Refills: 0 Ordered:24-Mar-2017 Slarb Gloria SILVA Start : 21-Aug-2016 End : 24-Mar-2017 Discontinued [...] days Quantity: 3 {Inhaler} Refills: 2 Ordered:17-Feb-2016 Slarb SKI LIFT ATTENDANT, Gloria Start : 11-Feb-2016 End : 17-Feb-2016 Discontinued Flovent HFA 110 MCG/ACT Inhalation Aerosol 2 Puff bid for 90 days Quantity: 30 {QS} Refills: 3 Ordered:17-Feb-2016 Slarb SKI LIFT ATTENDANT, Gloria Start : 11-Feb-2016 End : 17-Feb-2016 Discontinued GUAIATUSSIN AC, 100-10MG/5ML (Oral Syrup) 1 Syrup TID prn for 0 days Quantity: 8 {Ounce(s)} Refills: 0 Ordered:18-Mar-2012 Ivanna Maddox Start : 18-Mar-2012 End : 18-Mar-2012 Discontinued Comments:eight ounces Ipratropium-Albuterol 0.5-2.5 (3) MG/3ML Inhalation Solution 1 (one) Solution Solution qid PRN for 0 days Quantity: 90 {QS} Refills: 3 Ordered:13-May-2016 Slarb SKI LIFT ATTENDANT, Gloria Start : 13-Feb-2016 End : 13-May-2016 [...] days Quantity: 30 {Tablet} Refills: 6 Ordered:31-Dec-2017 Addison FURNITURE UPHOLSTERER APPRENTICE, Dafne Monterroso FURNITURE UPHOLSTERER APPRENTICE, Dafne Mota Start : 31-Dec-2017 End : 31-Dec-2017 Discontinued METFORMIN HCL, 500MG (Oral Tablet Extended Release 24 Hour) 3 (three) Tablet ER 24HR qd for 0 days Quantity: 90 {Tablet_ER_24HR} Refills: 3 Ordered:11-Jun-2006 Piyush Belen Start : 11-Jun-2006 End : 20-Oct-2006 Discontinued [...] days Quantity: 1 Kit Refills: 0 Ordered:31-May-2015 Virgen Real LPN Start : 29-May-2015 End : 31-May-2015 Discontinued [...] days Quantity: 6 {Inhaler} Refills: 0 Ordered:13-May-2016 Slarb Gloria SILVA Start : 11-Feb-2016 End : 13-May-2016 Discontinued VITAMIN D, 1000UNIT (Oral Tablet) 3 (three) Tablet qd for 0 days Quantity: 90 {Tablet} Refills: 0 Ordered:31-Jul-2013 Marquise Jackie Start : 31-Jul-2013 End : 31-Jul-2013 Discontinued [...] as of 07-Apr-2017 Abnormal glucose tolerance test (R73.02, 790.22) Status: Inactive as of 19-Nov-2009 Abnormal [...] as of 07-Jan-2010 Redness of eye, left (H57.8, 379.93) Status: Resolved as of 19-Jan-2018 screen [...] sx Completed Comments: 12-03-06 Date Value Details 25-Jan-2018 12 Lead Electrocardiogram Result: Comments: See Note; NOTES: [facility] Cardiovascular Services [address] [place] [address] 12 Lead EKG 01/22/18 2044 MR#: [id number] Acct: [id number] Name: IMANI VINSON Lottie p #: [id number] : 1950 67 From: Ramiro Moreno MD [...] ECG Confirmed by Elia UNGER MD, RAMIRO ([id number]), graphics editor RUBI VILLATORO (56) on 01/25/2018 3:09:19 PM Referred By: Confirmed By:RAMIRO MORENO MD 01/25/18 1509 Date Ramiro Moreno MD CC: Dafne Jaime EKG MANAGER; Tyson Hernandez DO Signed 24-Jan-2018 Emergency Department Summary Result: Comments: See Note; NOTES: [facility] Medical Records Department [address] [place] [address] Emergency Department Summary 01/22/18 2318 MR#: [id number] Acct: [id number] Name: IMANI VINSON Rep #: [id number] : 1950 67 From: Tyson Hernandez DO [...] 2. Hypertension This note was generated with Valneva dictation software. It may contain incorrect words, [...] your Primary Care Provider. Call [facility] ([phone]) or report to the closest Emergency Room. Call 911 if necessary. 01/24/18 0026 <Electronically signed by Tyson Hernandez DO> Date _ Tyson Hernandez DO Cosigner Signature (If Indicated): Date CC: Dafne Jaime EKG MANAGER 30-Dec-2017 12 Lead Electrocardiogram Result: Comments: See Note; NOTES: [facility] Cardiovascular Services [address] [place] [address] 12 Lead EKG 12/25/17 1326 MR#: [id number] Acct: [id number] Name: IMANI VINSON Lottie leach #: [id number] : 1950 67 From: Ramiro Moreno MD [...] Confirme d by RAMIRO MORENO MD ([id number]), graphics editor RUBI VILLATORO (56) on 12/30/2017 3:06:27 PM Referred By: Yoselin Oconnell Confirmed By:RAMIRO MORENO MD 12/30/17 1506 Date _ Ramiro Moreno MD CC: Dafne Jaime NP; Ivanna Puri MD Signed 25-Dec-2017 Emergency Department Summary Result: Comments: See Note; NOTES: [facility] Medical Records Department [address] [place] [address] Emergency Department Summary 12/25/17 1538 MR#: [id number] Acct: [id number] Name: IMANI VINSON Rep #: [id number] : 1950 67 From: Ivanna Puri MD [...] Cephalgia, improved This note was generated with Valneva dictation software. It may contain inco rrect [...] contact your Primary Ca re Provider. Call [facility] ([phone]) or report to the closest Emergency Room. Call 911 if necessary. 12/25/17 1636 <Electronically signed by Ivanna Puri MD> Date Ivanna Puri MD Cosigner Signature (If Indicated): Date CC: Dafne Addison BRUNNER 25-Dec-2017 Discharge Instruction Result: Comments: See Note; NOTES: [facility] Medical Records Department [address] [facility] [place] [address] Discharge Instruction 12/25/17 1542 MR#: [id number] Acct: [id number] Name: IMANI VINSON Rep #: [id number] : 1950 67 From: Ivanna Puri MD [...] your Primary Care Provider. Call [facility] ([phone]) or report to the closest Emergency Room. Call 911 if necessary. 12/25/17 1543 <Electronically signed by Ivanna Puri MD> D ate Ivanna Puri MD Cosigner Signature (If Indicated): Date CC: Dafne Jaime NP 25-Dec-2017 Chest 1 View (Portable) Result: Comments: See Note; NOTES: [facility] Imaging Services [address] [place] [address] Chest 1 View (Portable) MR#: [id number] Acct: [id number] Name: IMANI VINSON Rep #: [id number] : 1950 F 67 From: Walter Corbin MD PCP: Dafne Jaime NP Status: REG ER Study: Chest 1 View (Portable) Date of Exam: 12/25/17 Exam# [id number] Ordering Dr: Ivanna Puri MD STUDY: X-RAY [...] seen on this examination. Electronically Signed: Walter Emerald, at 14:22 EDT Tel , Service support [phone], RAD/Chest 1 View (Portable) CC: Dafne Jaime NP; Ivanna Puri MD Rf Test Engineer: Signed 23-Dec-2017 Abdomen/Pelvis without Cont Result: Comments: See Note; NOTES: [facility] Imaging Services [address] [place] [address] Abdomen/Pelvis without Cont MR#: [id number] Acct: [id number] Name: IMANI VINSON Rep #: [id number] : 1950 F 67 From: Leobardo Mckenzie MD PCP: Dafne Jaime NP Status: REG CLI Study: Abdomen/Pelvis without Cont Date of Exam: 12/23/17 Exam# [id number] Ordering Dr: Yoselin Oconnell EKG MANAGER-C STUDY: CT ABDOMEN AND PELVIS WITHOUT [...] Leobardo Mckenzie MD at 12:50 EDT Tel [phone], Service support , Fax CC: Dafne Jaime NP; MARCO ANTONIO Oconnell Rf Test Engineer: Signed 12-Feb-2017 Chest without Contrast Result: Comments: See Note; NOTES: [facility] Imaging Services [address] [place] [address] Chest without Contrast MR#: [id number] Acct: [id number] Name: IMANI VINSON Naveen Rep #: [id number] : 1950 F 66 From: Ace Olivia DO PCP: Dafne Jaime Status: REG CLI Study: Chest without Contrast Date of Exam: 02/12/17 Exam# [id number] Ordering Dr: Rogelio Granado MD STUDY: CT [...] Ace Olivia DO at 11:21 EDT Tel [phone], [employer] e support , CC: Dafne Jaime; Rogelio Granado MD Rf Test Engineer: Signed 19-Jan-2017 Chest PA and Lateral Result: Comments: See Note; NOTES: [facility] Imaging Services [address] [place] [address] Verdana 4d Chest PA and Lateral MR#: [id number] Acct: [id number] Name: IMANI VINSON Rep #: [id number] : 1950 F 66 From: Leobardo Mckenzie MD PCP: Dafne Jaime Status: REG CLI Study: Chest PA and Lateral Date of Exam: 01/19/17 Exam# [id number] Ordering Dr: Rogelio Granado MD UDY: X-RAY CHEST REASON FOR EXAM: Female, [...] Leobardo Mckenzie MD at 12:43 EDT Tel [phone], Service support [phone], CC: Dafne Jaime; Rogelio Granado MD Rf Test Engineer: Signed 17-Oct-2015 Spirometry (80212) Result: 20-Aug-2015 Chest PA and Lateral Result: Comments: See Note; NOTES: [facility] Imaging Services [address] [place] [address] Verdana 4d Chest PA and Lateral MR#: [id number] Acct: [id number] Name: IMANI FRASER Rep #: [id number] : 1950 F 64 From: Leobardo Mckenzie MD PCP: Jackie Christina DO Status: REG CLI Study: Chest PA and Lateral Date of Exam: 08/20/15 Exam# [id number] Ordering Dr: Dafne Jaime STUDY: X-RAY CHEST [...] Leobardo Mckenzie MD at 13:08 EST Tel [phone], Service support [phone] , RAD/Chest PA and Lateral IMPRESSION: Hyperinflation. No acute abnormality is seen. Electronically Signed: Leobardo Mckenzie MD at 13:08 EST Tel [phone], Service support [phone], CC: Dafne Jaime; Jackie Christina DO Rf Test Engineer: Signed 06-Jun-2015 Chest PA and Lateral Result: Comments: See Note; NOTES: [facility] Imaging Services [address] [place] [address] Verdana 4d Chest PA and Lateral MR#: [id number] Acct: [id number] Name: IMANI FRASER Rep #: [id number] : 1950 F 64 From: Leobardo Mckenzie MD PCP: Jackie Christina DO Status: REG CLI Study: Chest PA and Lateral Date of Exam: 06/06/15 Exam# [id number] Ordering Dr: Giovani Hutchins STUDY: X-RAY CHEST [...] Leobardo Mckenzie MD at 14:52 EST Tel [phone], Service support [phone], 0056 RAD/Chest PA and Lateral IMPRESSION: Hyp erinflation. Electronically Signed: Leobardo Mckenzie MD at 14:52 EST Tel [phone], Service support [phone], CC: Jackie Hutchins Rf Test Engineer: Signed 06-Aug-2014 Chest PA and Lateral Result: Comments: See Note; NOTES: [facility] Imaging Services [address] [place] [address] Radiology Report MR#: [id number] Acct: [id number] Name: IMANI VINSON Rep #: [id number] : 1950 F 63 From: Leobardo Mckenzie MD PCP: Jackie Christina DO Status: REG CLI Study: Chest PA and Lateral Date of Exam: 08/06/14 Exam# [id number] Ordering Dr: Dafne Jaime STUDY: X-RAY CHEST [...] Leobardo Mckenzie MD at 13:03 EST Tel [phone], Service support [phone], CC: Dafne Jaime; Jackie Christina DO Rf Test Engineer: Signed 05-May-2013 Bilat [employer] Digital & CAD Result: Comments: See Note; NOTES: [facility] Imaging Services [address] [place] [address] Breast Imaging Report MR#: [id number] Acct: [id number] Name: IMANI VINSON Rep #: [id number] : 1950 F 62 From: Leobardo Mckenzie MD PCP: Status: PRE CLI Exam# [id number] Ordering Dr: Jackie Christina DO MAMMOGRAPHY - [...] 05, 2013 at 2:48:1 1 PM EST [phone] Electronically Signed GP/GP If you are the referring physician and would like to consult with the radiologist who provided this interpretation, please contact Leobardo thompson M.D. at [phone]. If this radiologist is unavailable, you will be directed to another radiologist to assist. If you are a patient with a question regarding this report, please contact you r referring physician directly. Professional Interpretation Provided By: [employer], Phone , These documents contain legally protected [...] of these documents. CC: Jackie Christina DO Rf Test Engineer: Signed Immunization Name Dates Details Pneumococcal (2 [...] smoker Vital Signs Date Test Result Details :49 Temperature 98.5 f Comments: Method: Temporal [...] kg/m2 Body Surface Area Calculated 2.23 m2 23-Anu-441288:47 Temperature 97.8 f Pulse 68 /min Comments: [...] kg/m2 Body Surface Area Calculated 2.23 m2 49-Wxg-145076:35 Temperature 98.7 f Comments: Method: Oral Pulse [...] Calculated 2.36 m2 Head Circumference 0.00 cm 10-Uch-827090:00 Pulse 64 /min Comments: Pattern: Regular Respiration [...] 0.00 cm Results Date Description Value Details :50 HgA1C , Office (66753) HgA1C , Office 6.4 % (Normal) Range: 4.6 - 7.1 :50 Blood Glucose , Office (97495) Blood Glucose , Office 137 (Normal) :51 CALCIFEDIOL (50376) Comments: PATIENT NOT FASTINGPERFORMED BY: [facility] [id number] Vitamin D, 25-Hydroxy 35.3 ng/mL (Normal) Range: 30.0-100.0 Comments: Vitamin D deficiency has been defined by the [place] ofMedicine and an Endocrine Society practice guideline as alevel of serum 25-OH vitamin D less than 20 ng/mL (1,2).The Endocrine Society went on to further define vitamin Dinsufficiency as a level between 21 and 29 ng/mL (2).1. IOM ([place] of Medicine). 2010. Dietary reference intakes for calcium and D. [place]: The National Academies Press.2. Eleni MF, Lorne MORTON, Dayron WALTON, et al. Evaluation, treatment, and prevention of vitamin D deficiency: an Endocrine Society clinical practice guideline. JCEM. 2010; 96(7):1911-30. 4-Sxl-157990:43 METANEPHRINES - URINE (28090) Comments: PATIENT NOT FASTINGPERFORMED BY: [address] [id number] Metanephrine, U,24hr 120 {ug/24_hr} (Normal) Range: 45-290 Comments: (Hypertensive) >17 years 11 months: 35 - 460 Metanephrine, Ur 60 ug/L (Normal) Normetanephr.,U,24h 404 {ug/24_hr} (Normal) Range: 82-500 Comments: (Hypertensive) >17 years 11 months: 110 - 1050 Normetanephrine, Ur 202 ug/L (Normal) 5-Xxi-844205:43 CATECHOLAMINES TOTAL, URINE Comments: PATIENT NOT FASTINGPERFORMED BY: [address] [id number] Information: [id number] (15692) Dopamine, Ur, 24hr 356 {ug/24_hr} (Normal) Range: 0-510 Dopamine, Urine 178 ug/L (Normal) Norepinephrine,U,24h 78 {ug/24_hr} (Normal) Range: 0-135 Norepinephrine, Ur 39 ug/L (Normal) Epinephrine, U, 24hr 4 {ug/24_hr} (Normal) Range: 0-20 Epinephrine, Urine 2 ug/L (Normal) 4-Bds-889776:43 URINE VMA (10441) Comments: PATIENT NOT FASTINGPERFORMED BY: [address] [id number] VMA, Urine, 24hr 5.0 {mg/24_hr} (Normal) Range: 0.0-7.5 Comments: This test was developed and its performance characteristicsdetermined by [employer] [employer] [facility]. It has not been cleared or approvedby the Food and Drug Administration. VMA, Urine 2.5 mg/L (Normal) 14-Gtm-752295:44 URINE MEHREEN CULTURE-IDENTIFICATN Comments: PERFORMED BY: [employer] [facility] [id number] Information: SRC:UC (46588) Result 1 MUG (Normal) Comments: Mixed urogenital flora1,000 Colonies/mL Urine Culture,Comprehensive Final report (Normal) 22-Hok-024469:41 Urinalysis, Office (05110) UA - LEUKOCYTE ESTERASE Moderate (Normal) UA - NITRITE Negative (Normal) URINE UROBILINGN SUNNY TIMED Normal mg/dL (Normal) UA - PROTEIN Negative mg/dL (Normal) UA - PH 6.0 (Normal) UA - BLOOD Hemolyzed Trace (Normal) UA - SPECIFIC GRAVITY 1.020 (Normal) UA - KETONES Negative mg/dL (Normal) UA - BILIRUBIN Negative (Normal) UA - GLUCOSE Negative (Normal) 87-Ieb-519048:10 CBC & PLATELETS (AUTO) Comments: PATIENT NOT FASTINGPERFORMED BY: [facility] [id number] (95748) Platelets 270 {x10E3/uL} (Normal) Range: 150-379 RDW 13.8 % (Normal) Range: 12.3-15.4 MCHC 33.7 g/dL (Normal) Range: 31.5-35.7 MCH 29.7 pg (Normal) Range: 26.6-33.0 MCV 88 fL (Normal) Range: 79-97 Hematocrit 40.1 % (Normal) Range: 34.0-46.6 Hemoglobin 13.5 g/dL (Normal) Range: 11.1-15.9 RBC 4.54 {x10E6/uL} (Normal) Range: 3.77-5.28 WBC 6.8 {x10E3/uL} (Normal) Range: 3.4-10.8 24-Djs-096713:10 RENAL FUNCTION PANEL (50383) Comments: PATIENT NOT FASTINGPERFORMED BY: [employer] Skmiwi3999 [facility] [id number] Albumin 3.8 g/dL (Normal) Range: 3.6-4.8 Phosphorus [...] 8-27 Glucose 133 mg/dL (Abnormal) Range: 65-99 55-Hmr-825774:10 PARATHORMONE (79035) Comments: PATIENT NOT FASTINGPERFORMED BY: [facility] [id number] [facility] [id number] PTH, Intact 32 pg/mL (Normal) Range: 15-65 23-Vqy-691761:00 Urinalysis, Complete Comments: How was Urine Obtained? MANAGER ANALYTICAL TO [facility] [address] [place], [place], [id number] MUCUS, URINE 0 SEEN {/hpf} (Normal) BACTERIA [...] (Normal) CLARITY Clear (Normal) COLOR Yellow (Normal) 37-Boe-828288:04 CBC W/Diff, Automated Comments: [facility] [address] [place], [place], [id number] PLT EST ADEQUATE (Normal) SMEAR COMMENT SCANNED [...] 4.2-5.4 WBC 9.7 K/mm3 (Normal) Range: 4.4-11.0 86-Fkx-604190:04 Comprehensive Metabolic Profil Comments: [facility] [id number] [place], [place], [id number] GAP 8 (Normal) Range: 5-15 CO2 26.0 [...] A.D.A. criteria.Please note revised GLUCOSE reference range fnjzhmpke49/02/2018. 98-Fhd-882683:04 Lipase Comments: [facility] [address] [facility]. [place], [place], [id number] LIPASE 346 U/L (Normal) Range: 73-393 82-Cul-991829:04 Troponin-I Comments: [facility] [address] [facility]. [place], [place], [id number] TROPONIN-I < 0.015 ng/mL (Normal) Comments: TROPONIN-I EXPECTED VALUES <0.045 Negative 0.045 - 0.590 Consistent with Cardiac Damage > OR = 0.600 Critical Value Not every elevated troponin is indicative of CO. T hesevalues should be used with clinical judgement in examiningthe patient's clinical picture for diagnosis. To establisha diagnosis of CO versus myocardial injury, there must be ademonstrated rise and/ or fall in the troponin values, inaddition to ischemic symptoms, EKG changes, new regionalwall motion abnormality, and/or angiographical evidence. PLEASE NOTE: REFERENCE RANGES EDITED 11/08/1712-Jan-201827-Kkh-049513:27 TSH (THYROID STIMULATING Comments: January 12; PATIENT WAS FASTINGPERFORMED BY: [facility] [id number] HORMONE) (07205) TSH 1.920 {uIU/mL} (Normal) Range: 0.450-4.500 54-Mtb-868537:27 CBC & PLATELETS (AUTO) Comments: after January 12; PATIENT WAS FASTINGPERFORMED BY: [employer] [facility] [id number] Information: [id number] (89042) Platelets 288 {x10E3/uL} (Normal) Range: 150-379 RDW 13.8 % (Normal) Range: 12.3-15.4 MCHC 34.8 g/dL (Normal) Range: 31.5-35.7 MCH 30.8 pg (Normal) Range: 26.6-33.0 MCV 88 fL (Normal) Range: 79-97 Hematocrit 40.2 % (Normal) Range: 34.0-46.6 Hemoglobin 14.0 g/dL (Normal) Range: 11.1-15.9 RBC 4.55 {x10E6/uL} (Normal) Range: 3.77-5.28 WBC 6.2 {x10E3/uL} (Normal) Range: 3.4-10.8 54-Xyf-582417:27 LIPID PANEL (79058) Comments: after January 12; PATIENT WAS FASTINGPERFORMED BY: [facility] [id number] LDL/HDL Ratio 2.1 {ratio} (Normal) Range: 0.0-3.2 Comments: LDL/HDL Ratio Men Women 1/2 Avg.Risk 1.0 1.5 Av g.Risk 3.6 3.2 2X Avg.Risk 6.2 5.0 3X Avg.Risk 8.0 6.1 LDL Cholesterol Calc 88 mg/dL (Normal) Range: 0-99 VLDL Cholesterol Edgardo 46 mg/dL (Abnormal) Range: 5-40 HDL Cholesterol 42 mg/dL (Normal) Triglycerides 230 mg/dL (Abnormal) Range: 0-149 Cholesterol, Total 176 mg/dL (Normal) Range: 100-199 34-Tvy-722881:27 HGB A1C (15101) Comments: do after January 12; PATIENT WAS FASTINGPERFORMED BY: [facility] Qhsngj7891 [facility] [id number] Hemoglobin A1c 7.6 % (Abnormal) Range: 4.8-5.6 Comments: . Pre-diabetes: 5.7 - 6.4 Diabetes: >6.4 Glycemic control for adults with diabetes: <7.0 95-Gxq-351315:30 Basic Metabolic Profile (BMP) Comments: [facility] [address] [place], [place], [address] GAP 8 (Normal) Range: 5-15 CO2 25.0 [...] A.D.A. criteria.Please note revised GLUCOSE reference range /02/2018. 72-Pru-990974:30 Carboxyhemoglobin Frac (CO) Comments: [facility] [address] [place], [place], [address] COHb 2.1 % (Abnormal) Range: 0.0-1.5 Comments: * NON-SMOKER RANGE 1.6 - 5.0% * LIGHT SMOKER RANGE 5.1 - 9.0% * HEAVY SMOKER RANGE :30 CBC W/Diff, Automated Comments: [facility] [address] [place], [place], [address] Absolute Lymph 0.66 {X10_3/ul} (Abnormal) Range: 0.83-4.51 [...] 4.2-5.4 WBC 12.9 K/mm3 (Abnormal) Range: 4.4-11.0 22-Xpc-515963:30 Lipase Comments: [facility] [address] [place], [place], [address] LIPASE 126 U/L (Normal) Range: 73-393 91-Fof-622287:30 Liver Profile Comments: [facility] [address], [address] D BILI 0.13 mg/dL (Normal) Range: 0.00-0.30 T BILI 0.50 mg/dL (Normal) Range: 0.20-1.00 ALT 32 U/L (Normal) Range: 13-56 ALK P 154 U/L (Abnormal) Range: 45-117 AST 25 U/L (Normal) Range: 15-37 GLOB 4.2 g/dL (Normal) Range: 2.2-4.2 ALB 3.5 g/dL (Normal) Range: 3.2-5.0 T PROT 7.7 g/dL (Normal) Range: 6.4-8.2 46-Ewp-201152:30 Urinalysis, Complete Comments: Order Date: 12/25/17How was Urine Obtained? CLEAN [facility] [address] [place], [address] MUCUS, URINE 0 SEEN {/hpf} [...] (Abnormal) CLARITY Clear (Normal) COLOR Yellow (Normal) 88-Epe-300457:17 Urinalysis, Office (01690) UA - LEUKOCYTE ESTERASE Negative (Normal) UA - NITRITE Negative (Normal) URINE UROBILINGN SUNNY TIMED Normal mg/dL (Normal) UA - PROTEIN Negative mg/dL (Normal) UA - PH 5.0 (Normal) Comments: 5.5 UA - BLOOD Hemolyzed Trace (Normal) UA - SPECIFIC GRAVITY 1.005 (Normal) UA - KETONES Negative mg/dL (Normal) UA - BILIRUBIN Negative (Normal) UA - GLUCOSE 500 (Abnormal) 29-Mzs-702534:15 URINE MEHREEN CULTURE-SUNNY COL Comments: PATIENT NOT FASTINGPERFORMED BY: [employer] LabKashmir Luxury Hairrp Sfddpb5355 G2 [facility] [id number] Information: SRC: COUNT ([id number]) Result 1 MUG (Normal) Comments: Mixed urogenital flora10,000-25,000 colony forming units per mL Urine Final report (Normal) Culture,Comprehensive 42-Aml-921976:48 URINE MEHREEN CULTURE-IDENTIFICATN Comments: PATIENT NOT FASTINGPERFORMED BY: [employer] [facility]rp Wavzxp0739 [facility]SimpleAt[facility] [id number] Information: SRC: ([id number]) Antimicrobial MIHEAD (Normal) Comments: S = Susceptible; [...] mL (Abnormal) Urine Final report Culture,Comprehensive (Abnormal) 68-Svm-195080:24 Urinalysis, Office (49754) UA - LEUKOCYTE ESTERASE Small (Normal) UA - NITRITE Negative (Normal) URINE UROBILINGN SUNNY TIMED Normal mg/dL (Normal) UA - PROTEIN Trace mg/dL (Normal) UA - PH 6 (Abnormal) UA - BLOOD Hemolyzed Large (Normal) UA - SPECIFIC GRAVITY 1.015 (Normal) UA - KETONES Negative mg/dL (Normal) UA - BILIRUBIN Negative (Normal) UA - GLUCOSE 500 (Abnormal) 58-Ley-356160:33 Blood Glucose , Office (12422) Blood Glucose , Office 159 (Normal) 02-Lgq-550134:33 HgA1C , Office (37206) HgA1C , Office 7.0 % (Normal) Range: 4.6 - 7.1 94-Lxj-043867:10 CBC, Platelets & Auto Diff Comments: PATIENT WAS FASTINGPERFORMED BY: LabCoCooper University HospitalHinjrc8975 [facility] [id number] ([id number]) Immature Grans (Abs) 0.0 {x10E3/uL} (Normal) Range: [...] 3.77-5.28 WBC 7.0 {x10E3/uL} (Normal) Range: 3.4-10.8 12-Vql-474110:10 HGB A1C (92417) Comments: PATIENT WAS FASTINGPERFORMED BY: [facility]6370 [facility] [id number] Hemoglobin A1c 7.4 % (Abnormal) Range: 4.8-5.6 Comments: . Pre-diabetes: 5.7 - 6.4 Diabetes: >6.4 Glycemic control for adults with diabetes: <7.0 67-Tcu-247191:10 LIPID PANEL (13124) Comments: PATIENT WAS FASTINGPERFORMED BY: [facility]6370 [facility] [id number] LDL/HDL Ratio 2.4 {ratio} (Normal) Range: 0.0-3.2 Comments: LDL/HDL Ratio Men Women 1/2 Avg.Risk 1.0 1.5 Av g.Risk 3.6 3.2 2X Avg.Risk 6.2 5.0 3X Avg.Risk 8.0 6.1 LDL Cholesterol Calc 107 mg/dL (Abnormal) Range: 0-99 VLDL Cholesterol Edgardo 28 mg/dL (Normal) Range: 5-40 HDL Cholesterol 45 mg/dL (Normal) Triglycerides 138 mg/dL (Normal) Range: 0-149 Cholesterol, Total 180 mg/dL (Normal) Range: 100-199 80-Wil-955675:10 Metabolic Panel, Comprehensive Comments: PATIENT WAS FASTINGPERFORMED BY: [facility]6370 [facility] [id number] ([id number]) ALT (SGPT) 15 [iU]/L (Normal) Range: 0-32 [...] 8-27 Glucose 141 mg/dL (Abnormal) Range: 65-99 29-Kfo-603240:10 MICROALBUMIN: CREATININE RATIO Comments: PATIENT WAS FASTINGPERFORMED BY: [facility] [id number] (59062) AND (28663) Alb/Creat Ratio <3.8 {mg/g_creat} (Normal) Range: 0.0-30.0 Albumin, Urine <3.0 ug/mL (Normal) Creatinine, Urine 78.1 mg/dL (Normal) 41-Ccj-112200:10 TSH (10220) Comments: PATIENT WAS FASTINGPERFORMED BY: [facility]6370 [facility] [id number] TSH 2.160 {uIU/mL} (Normal) Range: 0.450-4.500 15-Yxt-960276:10 URINALYSIS W/O MICRO (56165) Comments: PATIENT WAS FASTINGPERFORMED BY: [facility] [id number] Microscopic Examination MICNIP (Normal) Comments: Microscopic not indicated and not performed. Nitrite, Urine Negative (Normal) Urobilinogen,Semi-Qn 0.2 mg/dL (Normal) Range: 0.2-1.0 Bilirubin Negative (Normal) Occult Blood Negative (Normal) Ketones Negative (Normal) Glucose 3+ (Abnormal) Protein Negative (Normal) WBC Esterase Negative (Normal) Appearance Clear (Normal) Urine-Color Yellow (Normal) pH 5.5 (Normal) Range: 5.0-7.5 Specific Custer >=1.030 (Abnormal) Range: 1.005-1.030 15-Kuv-042703:17 HGB A1C (90987) Comments: today; PATIENT NOT FASTINGPERFORMED BY: [facility] Veprxu4460 [facility] [id number] Hemoglobin A1c 7.4 % (Abnormal) Range: 4.8-5.6 Comments: . Pre-diabetes: 5.7 - 6.4 Diabetes: >6.4 Glycemic control for adults with diabetes: <7.0 62-Ymw-427040:14 TSH (THYROID STIMULATING Comments: PATIENT WAS FASTINGPERFORMED BY: [facility] Gckdpf2077 [address] [facility] [place] [id number] HORMONE) (09614) TSH 2.750 {uIU/mL} (Normal) Range: 0.450-4.500 80-Phk-929908:14 Lipid Panel (54538) Comments: PATIENT WAS FASTINGPERFORMED BY: [facility] Fqxwcx5103 [facility] [id number] LDL/HDL Ratio 2.0 {ratio_units} (Normal) Range: 0.0-3.2 Comments: LDL/HDL Ratio Men Women 1/2 Avg.Risk 1.0 1.5 Av g.Risk 3.6 3.2 2X Avg.Risk 6.2 5.0 3X Avg.Risk 8.0 6.1 LDL Cholesterol Calc 96 mg/dL (Normal) Range: 0-99 VLDL Cholesterol Edgardo 22 mg/dL (Normal) Range: 5-40 HDL Cholesterol 49 mg/dL (Normal) Triglycerides 110 mg/dL (Normal) Range: 0-149 Cholesterol, Total 167 mg/dL (Normal) Range: 100-199 02-Oiy-777554:14 CALCIFEDIOL (67981) Comments: PATIENT WAS FASTINGPERFORMED BY: [facility] Bqsnkb0241 [facility] [id number] Vitamin D, 25-Hydroxy 30.7 ng/mL (Normal) Range: 30.0-100.0 Comments: Vitamin D deficiency has been defined by the [place] of[place]icine and an Endocrine Society practice guideline as alevel of serum 25-OH vitamin D less than 20 ng/mL (1,2).The Endocrine Society went on to further define vitamin Dinsufficiency as a level between 21 and 29 ng/mL (2).1. IOM ([place] of Medicine). 2010. Dietary reference intakes for calcium and D. [place]: The National Academies Press.2. Eleni MF, Lorne MORTON, Dayron WALTON, et al. Evaluation, treatment, and prevention of vitamin D deficiency: an Endocrine Society clinical practice guideline. JCEM. 2010; 96(7):1911-30. 23-Itx-570425:14 Metabolic Panel, Comprehensive Comments: PATIENT WAS FASTINGPERFORMED BY: LabCoCooper University HospitalIzdtdl6275 [facility] [id number] (93458) ALT (SGPT) 11 [iU]/L (Normal) Range: 0-32 [...] Glucose, Serum 150 mg/dL (Abnormal) Range: 65-99 86-Jjh-374467:14 HGB A1C (65907) Comments: PATIENT WAS FASTINGPERFORMED BY: [facility]6370 [facility] [id number] Hemoglobin A1c 6.3 % (Abnormal) Range: 4.8-5.6 Comments: . Pre-diabetes: 5.7 - 6.4 Diabetes: >6.4 Glycemic control for adults with diabetes: <7.0; ADDENDA: OV 19-Jan-201712:28 Angiotensin Convert Enzyme Comments: [facility] (refer to report for specific site)refer to report for address and phone number [phone] U/L (Normal) Range: 14-82 Comments: Performed at: [address] [id number] Director: Jarrell Collazo PhD, Phone: [phone]; ADDENDA: Dr Granado 32-Kag-237685:28 Erythrocyte Sed Rate Comments: [facility] [address] [place], [place], [address] SED RATE 6 mm/h (Normal) Range: 0-30 99-Wqc-979889:35 CBC, Platelets & Auto Diff Comments: PATIENT NOT FASTINGPERFORMED BY: Lab[address] [id number] (90512) Immature Grans (Abs) 0.0 {x10E3/uL} (Normal) Range: [...] 3.77-5.28 WBC 6.5 {x10E3/uL} (Normal) Range: 3.4-10.8 16-Hyg-697061:35 HGB A1C (33598) Comments: PATIENT NOT FASTINGPERFORMED BY: [facility]6370 [facility] [id number] Hemoglobin A1c 6.7 % (Abnormal) Range: 4.8-5.6 Comments: . Pre-diabetes: 5.7 - 6.4 Diabetes: >6.4 Glycemic control for adults with diabetes: <7.0 :35 Metabolic Panel, Basic Comments: PATIENT NOT FASTINGPERFORMED BY: amcure70 [facility] [id number] (38072) Calcium, Serum 10.6 mg/dL (Abnormal) Range: 8.7-10.3 [...] Glucose, Serum 85 mg/dL (Normal) Range: 65-99 71-Mhd-818699:29 Microscopic Examination Comments: PATIENT WAS FASTINGPERFORMED BY: [employer] CenterRehoboth McKinley Christian Health Care ServicesPezenm8927 [facility] [id number] Bacteria Few (Normal) Mucus Threads Present (Normal) Cast Type Hyaline casts (Normal) Casts Present {/lpf} (Abnormal) Epithelial Cells (non renal) 0-10 {/hpf} (Normal) Range: 0 - 10 RBC 0-2 {/hpf} (Normal) Range: 0 - 2 WBC 0-5 {/hpf} (Normal) Range: 0 - 5 :29 URINALYSIS (44230) Comments: PATIENT WAS FASTINGPERFORMED BY: [facility]Select [facility]6370 [facility] [id number] Microscopic Examination See below: (Normal) Comments: Microscopic was indicated and was performed. Nitrite, Urine Negative (Normal) Urobilinogen,Semi-Qn 0.2 mg/dL (Normal) Range: 0.2-1.0 Bilirubin Negative (Normal) Occult Blood Negative (Normal) Ketones Negative (Normal) Glucose Negative (Normal) Protein Trace (Normal) WBC Esterase 1+ (Abnormal) Appearance Clear (Normal) Urine-Color Yellow (Normal) pH 6.0 (Normal) Range: 5.0-7.5 Specific Custer 1.027 (Normal) Range: 1.005-1.030 :29 MICROALBUMIN: CREATININE RATIO Comments: PATIENT WAS FASTINGPERFORMED BY: [facility]6370 [facility] [id number] (07107) AND (36176) Microalb/Creat Ratio 11.0 {mg/g_creat} (Normal) Range: 0.0-30.0 Microalbumin, Urine 29.4 ug/mL (Normal) Creatinine, Urine 266.4 mg/dL (Normal) : CALCIFEDIOL (71529) Comments: PATIENT WAS FASTINGPERFORMED BY: [facility]6370 [facility] [id number] Vitamin D, 25-Hydroxy 29.5 ng/mL (Abnormal) Range: 30.0-100.0 Comments: Vitamin D deficiency has been defined by the [place] of[place]icine and an Endocrine Society practice guideline as alevel of serum 25-OH vitamin D less than 20 ng/mL (1,2).The Endocrine Society went on to further define vitamin Dinsufficiency as a level between 21 and 29 ng/mL (2).1. IOM ([place] of [place]). 2010. Dietary reference intakes for calcium and D. [place]: The National Academies Press.2. Eleni MF, Lorne MORTON, Dayron WALTON, et al. Evaluation, treatment, and prevention of vitamin D deficiency: an Endocrine Society clinical practice guideline. JCEM. 2010; 96(9):0441-30. 78-Xlk-245017:29 Lipid Panel (34231) Comments: PATIENT WAS FASTINGPERFORMED BY: [facility]tapAt[facility] [id number] LDL/HDL Ratio 1.9 {ratio_units} (Normal) Range: 0.0-3.2 [...] Panel, Comprehensive Comments: PATIENT WAS FASTINGPERFORMED BY: amcure70 G2 [facility]UNC [facility] [id number] (28542) ALT (SGPT) 14 [iU]/L (Normal) Range: 0-32 [...] Glucose, Serum 77 mg/dL (Normal) Range: 65-99 56-Ceo-539674:29 CBC, Platelets & Auto Diff Comments: PATIENT WAS FASTINGPERFORMED BY: LabCoCooper University HospitalEkofsd5089 [facility] [id number] (13069) Immature Grans (Abs) 0.0 {x10E3/uL} (Normal) Range: [...] 6.6 {x10E3/uL} (Normal) Range: 3.4-10.8 :29 TSH (96402) Comments: PATIENT WAS FASTINGPERFORMED BY: [employer] Ljtacu2463 [facility] [id number] TSH 2.240 {uIU/mL} (Normal) Range: 0.450-4.500 :29 HGB A1C (10348) Comments: PATIENT WAS FASTINGPERFORMED BY: [employer] [facility] CenterCooper University HospitalVljowy[address] [place] [address] [id number] Hemoglobin A1c 6.7 % (Abnormal) Range: 4.8-5.6 Comments: . Pre-diabetes: 5.7 - 6.4 Diabetes: >6.4 Glycemic control for adults with diabetes: <7.0 :23 HGB A1C (29086) Comments: PATIENT NOT FASTINGPERFORMED BY: [facility]WireSelect [facility]6370 [facility] [id number] Hemoglobin A1c 6.4 % (Abnormal) Range: 4.8-5.6 Comments: . Pre-diabetes: 5.7 - 6.4 Diabetes: >6.4 Glycemic control for adults with diabetes: <7.0 :06 Blood Glucose , Office (40344) Blood Glucose , Office 84 (Normal) : Hemoglobin A1c 6.7 % (Abnormal) Comments: PATIENT NOT FASTINGPERFORMED BY: [facility]6370 [facility] [id number] Information: [id number] Range: 4.8-5.6 Comments: . Pre-diabetes: 5.7 - 6.4 Diabetes: >6.4 Glycemic control for adults with diabetes: <7.0 :13 HgA1C , Office (38145) HgA1C , Office 6.6 % (Normal) Range: 4.6 - 7.1 :07 Blood Glucose , Office (58509) Blood Glucose , Office 97 (Normal) :51 HgA1C , Office (71695) HgA1C , Office 6.9 % (Normal) Range: 4.6 - 7.1 :51 Blood Glucose , Office (93029) Blood Glucose , Office 129 (Normal) 58-Avk-326060:35 Sputum Culture (87261) Comments: PATIENT NOT FASTINGPERFORMED BY: [address] [id number] Information: [id number] Result 1 RRF (Normal) Comments: Routine respiratory marilin Lower Respiratory Culture Final report (Normal) :10 Rapid Flu (85085 x 2) Comments: neg Influenza A Ag neg (Normal) 0-Axa-291078:31 Vitamin D Hydroxy (01721) Comments: PATIENT WAS FASTINGPERFORMED BY: LabSelect [facility]ty [facility]aw6370 [facility] [id number] Vitamin D, 25-Hydroxy 34.0 ng/mL (Normal) Range: 30.0-100.0 Comments: Vitamin D deficiency has been defined by the [place] of[place]icine and an Endocrine Society practice guideline as alevel of serum 25-OH vitamin D less than 20 ng/mL (1,2).The Endocrine Society went on to further define vitamin Dinsufficiency as a level between 21 and 29 ng/mL (2).1. IOM ([place] of [place]). 2010. Dietary reference intakes for calcium and D. [place]: The National Academies Press.2. Eleni MF, Lorne MORTON, Dayron WALTON, et al. Evaluation, treatment, and prevention of vitamin D deficiency: an Endocrine Society clinical practice guideline. JCEM. 2010; 96(7):1911-30. :31 Amylase (17623) Comments: PATIENT WAS FASTINGPERFORMED BY: [facility] Oxwjsn7136 [facility] [id number] Amylase, Serum 32 U/L (Normal) Range: 31-124 :31 Lipase (42174) Comments: PATIENT WAS FASTINGPERFORMED BY: LabKashmir Lux[facility] Hair Zhfsqd7560 [facility] [id number] Lipase, Serum 47 U/L (Normal) Range: 0-59 :31 LIPID PANEL (75888) Comments: PATIENT WAS FASTINGPERFORMED BY: LabKashmir [facility] Hairrp Orhizl9131 [facility] [id number] LDL/HDL Ratio 1.7 {ratio_units} (Normal) Range: 0.0-3.2 [...] 155 mg/dL (Normal) Range: 100-199 :31 TSH (71426) Comments: PATIENT WAS FASTINGPERFORMED BY: [facility] Ykfqnx1386 [facility] [id number] TSH 1.140 {uIU/mL} (Normal) Range: 0.450-4.500 :31 METABOLIC PANEL, Comments: PATIENT WAS FASTINGPERFORMED BY: [facility] Amrqis6424 Shanita MishraUNC Health Johnston [id number] Information: [id number] COMPREHENSIVE (78963) ALT (SGPT) 20 [iU]/L (Normal) Range: 0-32 [...] (Normal) Range: 65-99 :12 HgA1C , Office (62163) HgA1C , Office 6.4 % (Normal) Range: 4.6 - 7.1 :21 HgA1C , Office (39372) HgA1C , Office 6.8 % (Normal) Range: 4.6 - 7.1 :21 Blood Glucose , Office (22677) Blood Glucose , Office 122 (Normal) 00-Hmh-487333:33 CBC W/Diff, Automated Comments: Test performed at:[facility] [address]xfql[address] [place] [address] Absolute Lymph 1.21 {X10_3/ul} (Normal) [...] 4.2-5.4 WBC 6.0 K/mm3 (Normal) Range: 4.4-11.0 82-Pcl-958573:33 Comprehensive Metabolic Profil Comments: Test performed at:[facility] Z[address]gnblgljf[address] [place] [address] GAP 8 (Normal) Range: 5-15 CO2 28.0 [...] Comments: Please note revised CREATININE reference range ykkyuqqzh60/22/2015. BUN 13 mg/dL (Normal) Range: 7-18 GLU 84 mg/dL (Normal) Range: 70-110 94-Zom-100743:33 Lipid Profile Comments: Test performed at:[facility] [address] [place], [place] [address] ; non-emergent till apt VLDL 24 mg/dL [...] 200-240 mg/dL Borderline >240 mg/dL High Risk 59-Uft-529978:33 Microalb:Creat Ratio,Random UR Comments: Test performed at:[facility] Mcphloxpxd8538 [place] [address] MALB:CREAT Test not performed {mg/g_CRE} (Normal) MICROALBUMIN,UR < 5.0 mg/L (Normal) UR CREAT 179.00 mg/dL (Normal) 10-Foo-868775:33 Thyroid Stim Hormone (TSH) Comments: Test performed at:[facility] [address] [place] [address] TSH 0.84 {uIU/mL} (Normal) Range: 0.358-3.74 76-Ymz-009157:33 Vitamin D,25 Hydroxy Comments: Test performed at:[facility] Ehcyhdacta[address] [place] [address] Vitamin D 25-OH 23.5 ng/mL (Normal) Comments: Vitamin D 25(OH) Status Range Deficiency <20 ng/mL (50nmol/L) Insuffciency 20 - 30 ng/mL (50 - 75 nmol/L) Sufficiency 30 - 100 ng/mL (75 - 250 nmol/L) Toxicity >100 ng/mL (>250 nmol/L) 8-Cim-605434:34 HgA1C , Office (38476) HgA1C , Office 7.0 % (Normal) Range: 4.6 - 7.1 7-Mez-711557:00 CBC W/Diff, Automated Comments: Test performed at:[facility] [address] [place] [address] Absolute Lymph 2.03 {X10_3/ul} (Normal) Range: [...] 4.2-5.4 WBC 9.1 K/mm3 (Normal) Range: 4.4-11.0 7-Vwn-396014:00 CK-MB Quantitative and Index Comments: 'TROP' Serial specimen #1, #2, #3, or #4: 1'CKMB' Serial Specimen #1, #2 or #3? 1Test performed at:[facility] [address] [place] [address] CPKMB 1.7 ng/mL (Normal) Range: 0.0-5.0 Comments: CK-MB and RI Interpretation MB Relative Index Non-AMI <or= 5 NA Indeterminate > 5 <or= 4 AMI > 5 > 4 CPK TOTAL 137 U/L (Normal) Range: 26-192 2-Nji-698942:00 Myoglobin, Serum Comments: Test performed at:[facility] Mincmlpwws9974 [facility] [place] [address] Myoglobin, Ser 149 ng/mL (Abnormal) Range: 25-58 Comments: Performed at: [facility] Lab[address] [id number] Director: Jonathan Majano PhD, Phone: [phone] 2-Faw-000461:00 Troponin-I Comments: 'TROP' Serial specimen #1, #2, #3, or #4: 1'CKMB' Serial Specimen #1, #2 or #3? 1Test performed at:[facility] [address]lc[address] [place], [place] [address] TROPONIN-I < 0.02 ng/mL (Normal) Comments: TROPONIN-I EXPECTED VALUES <0.05 NEGATIVE 0.06 - 0.59 AT RISK OF CO > OR = 0.60 SUGGEST CO 1-Crx-147199:46 Rapid Flu (57465 x 2) Influenza A Ag n (Normal) 61-Hul-671567:30 Culture, Wound Comments: Test performed at:[facility] [address] [place] [address] CUW See Note (Normal) Comments: Gram StainGram [...] interpretation is deduced from Beta- lactam/penicillin results. 17-Bbu-787397:20 WCGLU 81 mg/dL (Normal) Range: 70-110 71-Wgp-436513:20 WCLIPID VLDL 34 mg/dL (Normal) Range: 5-40 [...] CHOL 178 mg/dL (Normal) Comments: <200 mg/dL Uxpcowahw461-951 mg/dL Borderline>240 mg/dL High Risk 9-Lpz-928417:50 MUM < 0.80 AU (Normal) Range: 0.00-0.79 Comments: Negative < 0.80Borderline 0.80 - 1.20Positive > 1.20Note: The presence of IgM specific antibody should beinterpreted in conjunction with the patient's clinicalhistory and exposure risk when an acute infection issuspected.Performed at: [facility] Photo [employer] [address] [id number] Director: Rafita Cruz MD, Phone: [phone] at: [facility] SkyWire[address] [id number] Director: Jj Caballero MD, Phone: [phone] 9-Odp-806728:50 RUBEOG > 300.0 AU/mL (Normal) Comments: Negative <25.0Equivocal 25.0 - 29.9Positive >29.9Presence of antibodies to Rubeola is presumptive evidenceof immunity except when acute infection is suspected. 8-Kpw-770134:50 RUBG > 500.0 {IU/mL} (Normal) Comments: Antibody results Interpretation of Immune Status< 5 IU/ml Presumed Non-immune5 - < 10 IU/ml Equivocal> or = 10 IU/ml Presumed Immune :26 MICROALBUMIN: CREATININE RATIO Comments: PATIENT WAS FASTINGPERFORMED BY: [facility] [id number] (56921) AND (33214) Microalb/Creat Ratio 3.9 {mg/g_creat} (Normal) Range: 0.0-30.0 Creatinine, Urine 177.5 mg/dL (Normal) Range: 15.0-278.0 Microalbumin, Urine 7.0 ug/mL (Normal) Range: 0.0-17.0 :26 CBC WITH MANUAL DIFF Comments: PATIENT WAS FASTINGPERFORMED BY: LabCoCooper University HospitalPakhap5529 [facility] [id number] Information: [id number] (14887) Immature Grans (Abs) 0.0 {x10E3/uL} (Normal) Range: [...] PANEL, COMPREHENSIVE Comments: PATIENT WAS FASTINGPERFORMED BY: [facility]CoCo[facility] HospitalZfeowj1548 [facility] [id number] (01252) ALT (SGPT) 22 [iU]/L (Normal) Range: 0-32 [...] Glucose, Serum 105 mg/dL (Abnormal) Range: 65-99 01-Nov-20139:26 Vitamin D Hydroxy (53219) Comments: PATIENT WAS FASTINGPERFORMED BY: [facility] [facility] [id number] Vitamin D, 25-Hydroxy 32.9 ng/mL (Normal) Range: 30.0-100.0 Comments: Vitamin D deficiency has been defined by the [place] [employer] and an Endocrine Society practice guideline as alevel of serum 25-OH vitamin D less than 20 ng/mL (1,2).The Endocrine Society went on to further define vitamin Dinsufficiency as a level between 21 and 29 ng/mL (2).1. IOM ([place] [employer]). 2010. Dietary reference intakes for calcium and D. [place]: The National Academies Press.2. Eleni CRAVEN, [place], Dayron WALTON, et al. Evaluation, treatment, and prevention of vitamin D deficiency: an Endocrine Society clinical practice guideline. JCEM. 2010; 96(7):1911-30. :26 LIPID PANEL (27850) Comments: PATIENT WAS FASTINGPERFORMED BY: [facility] [id number] [facility] [id number] LDL/HDL Ratio 1.6 {ratio_units} (Normal) Range: 0.0-3.2 LDL Cholesterol Calc 74 mg/dL (Normal) Range: 0-99 HDL Cholesterol 46 mg/dL (Normal) Comments: According to ATP-III Guidelines, HDL-C >59 mg/dL is considered anegative risk factor for CHD. VLDL Cholesterol Edgardo 22 mg/dL (Normal) Range: 5-40 Triglycerides 112 mg/dL (Normal) Range: 0-149 Cholesterol, Total 142 mg/dL (Normal) Range: 100-199 :26 TSH (70876) Comments: PATIENT WAS FASTINGPERFORMED BY: [employer] Vefroa5024 [facility] [id number] TSH 1.560 {uIU/mL} (Normal) Range: 0.450-4.500 6-Lwa-432856:02 HgA1C , Office (34682) HgA1C , Office 6.6 % (Normal) Range: 4.6 - 7.1 :41 HgA1C , Office (19673) HgA1C , Office 6.4 % (Normal) Range: 4.6 - 7.1 43-Pla-810432:30 Microscopic Examination Comments: PATIENT WAS FASTINGPERFORMED BY: [employer] Cdpfst3203 [facility] [id number] Bacteria Few (Normal) Mucus Threads Present (Normal) Epithelial Cells (non renal) 0-10 {/hpf} (Normal) Range: 0 - 10 RBC 0-3 {/hpf} (Normal) Range: 0 - 3 WBC 0-5 {/hpf} (Normal) Range: 0 - 5 :30 LIPID PANEL (60062) Comments: PATIENT WAS FASTINGPERFORMED BY: [employer] CenterCooper University HospitalSnwwwh0118 [facility] [id number] LDL/HDL Ratio 2.3 {ratio_units} (Normal) Range: 0.0-3.2 LDL Cholesterol Calc 103 mg/dL (Abnormal) Range: 0-99 VLDL Cholesterol Edgardo 30 mg/dL (Normal) Range: 5-40 HDL Cholesterol 45 mg/dL (Normal) Comments: According to ATP-III Guidelines, HDL-C >59 mg/dL is considered anegative risk factor for CHD. Cholesterol, Total 178 mg/dL (Normal) Range: 100-199 Triglycerides 148 mg/dL (Normal) Range: 0-149 63-Zfv-386838:30 Vitamin D Hydroxy (57176) Comments: PATIENT WAS FASTINGPERFORMED BY: [employer] Wjwaca0494 [facility] [id number] Vitamin D, 25-Hydroxy 35.6 ng/mL (Normal) Range: 30.0-100.0 Comments: Vitamin D deficiency has been defined by the [place] ofThe Metro[facility] Systemcine and an Endocrine Society practice guideline as alevel of serum 25-OH vitamin D less than 20 ng/mL (1,2).The Endocrine Society went on to further define vitamin Dinsufficiency as a level between 21 and 29 ng/mL (2).1. IOM ([place] of Medicine). 2010. Dietary reference intakes for calcium and D. [place]: The National Academies Press.2. Eleni MF, Lorne MORTON, Dayron WALTON, et al. Evaluation, treatment, and prevention of vitamin D deficiency: an Endocrine Society clinical practice guideline. JCEM. 2010; 96(7):1911-30. 87-Wnj-980546:30 URINALYSIS, W/ MICRO (74674) Comments: PATIENT WAS FASTINGPERFORMED BY: [facility]Co Jojqem1158 [facility] [id number] Microscopic Examination See below: (Normal) Nitrite, Urine Negative (Normal) Bilirubin Negative (Normal) Urobilinogen,Semi-Qn 0.2 mg/dL (Normal) Range: 0.0-1.9 Occult Blood Negative (Normal) Ketones Negative (Normal) Glucose Negative (Normal) Protein Negative (Normal) WBC Esterase 1+ (Abnormal) Appearance Clear (Normal) Urine-Color Yellow (Normal) pH 5.5 (Normal) Range: 5.0-7.5 Specific Custer 1.017 (Normal) Range: 1.005-1.030 :30 CBC WITH MANUAL DIFF Comments: PATIENT WAS FASTINGPERFORMED BY: [facility]6370 [facility] [id number] Information: [id number] (04041) Immature Grans (Abs) 0.0 {x10E3/uL} (Normal) Range: [...] 3.77-5.28 WBC 6.2 {x10E3/uL} (Normal) Range: 3.4-10.8 71-Hde-230500:30 METABOLIC PANEL, COMPREHENSIVE Comments: PATIENT WAS FASTINGPERFORMED BY: CB [facility] Ykdddi9614 Shanita MishraUnc [facility] [place] [place] [id number] (22400) ALT (SGPT) 23 [iU]/L (Normal) Range: 0-32 [...] (Abnormal) Range: 65-99 :35 HgA1C , Office (25541) HgA1C , Office 6.6 % (Normal) Range: 4.6 - 7.1 27-Aye-135323:41 Thin prep Pap (85686) Comments: Source.............VaginalNo. of containers..01 CYTYC Thin Prep VialPATIENT NOT FASTINGPERFORMED BY: [facility] [address] [facility] DAWNA [id number] Information: [id number] Pathologist provided ICD9: SPRCS (Normal) Comments: 627.3The [...] of hysterectomy.V72.31 ; Routine gynecological examinationGris Moreau Brake Repairer Bus (ASCP) :36 VITAMIN B-12 (CYANOCOBALAMIN) Comments: PATIENT WAS FASTINGPERFORMED BY: [employer] [place] [id number] (20199) Vitamin B12 628 pg/mL (Normal) Range: 211-946 :36 LIPID PANEL (17266) Comments: PATIENT WAS FASTINGPERFORMED BY: [employer] [place] [id number] LDL/HDL Ratio 2.2 {ratio_units} (Normal) Range: 0.0-3.2 LDL Cholesterol Calc 87 mg/dL (Normal) Range: 0-99 VLDL Cholesterol Edgardo 27 mg/dL (Normal) Range: 5-40 HDL Cholesterol 39 mg/dL (Abnormal) Comments: According to ATP-III Guidelines, HDL-C >59 mg/dL is considered anegative risk factor for CHD. Cholesterol, Total 153 mg/dL (Normal) Range: 100-199 Triglycerides 137 mg/dL (Normal) Range: 0-149 :36 Vitamin D Hydroxy (43752) Comments: PATIENT WAS FASTINGPERFORMED BY: [place] [id number] Vitamin D, 25-Hydroxy 31.1 ng/mL (Normal) Range: 30.0-100.0 Comments: Vitamin D deficiency has been defined by the [place] of[place]icine and an Endocrine Society practice guideline as alevel of serum 25-OH vitamin D less than 20 ng/mL (1,2).The Endocrine Society went on to further define vitamin Dinsufficiency as a level between 21 and 29 ng/mL (2).1. IOM ([place] of Medicine). 2010. Dietary reference intakes for calcium and D. [place]: The National Academies Press.2. Eleni MF, Lorne MORTON, Dayron WALTON, et al. Evaluation, treatment, and prevention of vitamin D deficiency: an Endocrine Society clinical practice guideline. JCEM. 2010; 96(7):1911-30. :36 TSH (35644) Comments: PATIENT WAS FASTINGPERFORMED BY: [employer] LabJumpLinc Vijdts8737 [employer] [id number] TSH 1.510 {uIU/mL} (Normal) Range: 0.450-4.500 :36 MICROALBUMIN: CREATININE RATIO Comments: PATIENT WAS FASTINGPERFORMED BY: [employer] [facility] Kfukzb6215 [employer] [id number] (43793) AND (38611) Creatinine, Urine 212.6 mg/dL (Normal) Range: 15.0-278.0 Microalb/Creat Ratio 2.1 {mg/g_creat} (Normal) Range: 0.0-30.0 Microalbumin, Urine 4.5 ug/mL (Normal) Range: 0.0-17.0 :36 METABOLIC PANEL, Comments: PATIENT WAS FASTINGPERFORMED BY: [employer] [facility] Ueaaum3070 [employer] [id number] Information: [id number] COMPREHENSIVE (01788) ALT (SGPT) 23 [iU]/L (Normal) Range: 0-32 [...] Glucose, Serum 160 mg/dL (Abnormal) Range: 65-99 75-Siv-53792:34 BILAT SCRN DIGITAL & CAD Radiology Report [...] Mckenzie M.D.April 12, 2012 at 10:58:16 AM [phone] Signed GP/GP If you are the referring physician and would like to consult w [facility] theradiologist who provided this interpretation, please contact Sudha Pritchett at [phone]. If this radiologist is unavailable, youwill be directed to another radiologist to assist. If you are a patient with a question regarding this report, pleasecontactyour referring physician directly. Professional Interpretation Provided By: [employer], Phone , These documents contain legally protected [...] destructionofthese documents. Dictated on 04/12/12 0934 by Steffen Mckenzie MDranscribed on 04/12/12 1102 by ITS IMPORTSign by Leobardo Mckenzie MD on 04/12/12 1103 Sign by: Leobardo Mckenzie MD 87-Vmi-96772:34 DEXA BONE DENSITY STUDY (HP) Radiology Report [...] Mckenzie M.D.April 12 2 at 12:31:08 PM [id number] Signed GP/GP If you are the referring physician and would like to consult with theradiologist who provided this interpretation, please contact Rashard thompson M.D. at [phone]. If this radiologist is unavailable, youwill be directed to another radiologist to assist. If you are a patient with a question regarding this report, pleasecontactyour refer ring physician directly. Professional Interpretation Provided By: [employer], Phone , These documents contain legally protected [...] destructionofthese documents. Dictated on 04/12/12 1021 by Steffen Kapoorranscribed on 04/12/12 1234 by ITS IMPORTSign by Leobardo Mckenzie MD on 04/12/12 1235 Sign by: Leobardo Mckenzie MD 0-Ble-173884:25 HPV automatic Comments: Source.............Cervical;EndocervicalNo. of containers..01 CYTYC Thin Prep VialPATIENT NOT FASTINGPERFORMED BY: WB [facility] [address] [place] [id number] BY: =G L (29451) [facility] Wmuysxwtou172 [facility] [place] [id number] Information: [id number] HPV, high-risk Negative Comments: This high-risk HPV [...] a history of hysterectomy.V72.31 ; Routine gynecological examinationJennifer [place], Brake Repairer Bus (ASCP) :37 Hemoglobin Glyclated (HGB A1C) Comments: PATIENT WAS FASTINGPERFORMED BY: [facility]6370 [facility] [id number] (03478) Hemoglobin A1c 7.1 % (Abnormal) Range: 4.8-5.6 Comments: . Increased risk for diabetes: 5.7 - 6.4 Diabetes: >6.4 Glycemic control for adults with diabetes: <7.0 :37 TSH (33132) Comments: PATIENT WAS FASTINGPERFORMED BY: [facility] Svhswt7863 [facility] [id number] TSH 1.790 {uIU/mL} (Normal) Range: 0.450-4.500 :37 CBC WITH MANUAL DIFF Comments: PATIENT WAS FASTINGPERFORMED BY: [facility]6370 [facility] [id number] Information: [id number] (87309) Immature Grans (Abs) 0.0 {x10E3/uL} (Normal) Range: [...] CREATININE RATIO Comments: PATIENT WAS FASTINGPERFORMED BY: [facility]tapAt[facility] [id number] (38098) AND (15245) Microalb/Creat Ratio 0.8 {mg/g_creat} (Normal) Range: 0.0-30.0 Microalbumin, Urine 1.4 ug/mL (Normal) Range: 0.0-17.0 Creatinine, Urine 183.1 mg/dL (Normal) Range: 15.0-278.0 :37 LIPID PANEL (15130) Comments: PATIENT WAS FASTINGPERFORMED BY: [employer] [facility] [id number] LDL/HDL Ratio 1.4 {ratio_units} (Normal) Range: 0.0-3.2 [...] PANEL, COMPREHENSIVE Comments: PATIENT WAS FASTINGPERFORMED BY: [facility] miradio.fmUNC Health Johnston [id number] (98561) ALT (SGPT) 26 [iU]/L (Normal) Range: 0-40 [...] Glucose, Serum 145 mg/dL (Abnormal) Range: 65-99 55-Cyy-13187:37 Vitamin D Hydroxy (34395) Comments: PATIENT WAS FASTINGPERFORMED BY: [facility]6370 [facility] [id number] Vitamin D, 25-Hydroxy 42.1 ng/mL (Normal) Range: 30.0-100.0 Comments: Vitamin D deficiency has been defined by the [place] ofMedicine and an Endocrine Society practice guideline as alevel of serum 25-OH vitamin D less than 20 ng/mL (1,2).The Endocrine Society went on to further define vitamin Dinsufficiency as a level between 21 and 29 ng/mL (2).1. IOM ([place] of Medicine). 2010. Dietary reference intakes for calcium and D. [place]: The National Academies Press.2. Eleni MF, Lorne [place], Dayron WALTON, et al. Evaluation, treatment, and prevention of vitamin D deficiency: an Endocrine Society clinical practice guideline. JCEM. 2010; 96(7):1911-30. 21-Wyu-73042:37 VITAMIN B-12 (CYANOCOBALAMIN) Comments: PATIENT WAS FASTINGPERFORMED BY: [facility]6370 [facility] [id number] (93312) Vitamin B12 1841 pg/mL (Abnormal) Range: 211-946 11-Uon-586295:56 CHEST WITH CONTRAST Radiology Report See Note [...] Signed:Marva HunterFebruary 11, 2012 at 3:53:06 PM [phone] Signed MV/MV If you are the referring [...] HUTCHINSON,Chaitanyaanscribed on 02/11/121610 by ITS IMPORTSign by JACKIE SIERRA MD on 02/11/121611 Sign by: JACKIE SIERRA MD 57-Tkg-417086:22 CRE GFRAA 95 mL/min (Normal) GFR 78 mL/min (Normal) CREAT 0.8 mg/dL (Normal) Range: 0.6-1.0 :42 MICROALBUMIN: CREATININE RATIO Comments: PATIENT WAS FASTINGPERFORMED BY: [employer] Bxgaaz0782 [facility]SimpleAt[facility] [id number] (94516) AND (79395) Creatinine, Urine 87.6 mg/dL (Normal) Range: 15.0-278.0 Microalb/Creat Ratio 1.1 {mg/g_creat} (Normal) Range: 0.0-30.0 Microalbumin, Urine 1.0 ug/mL (Normal) Range: 0.0-17.0 :42 VITAMIN B-12 (CYANOCOBALAMIN) Comments: PATIENT WAS FASTINGPERFORMED BY: amcure70 [facility]SimpleAt[facility] [id number] (31811) Vitamin B12 1740 pg/mL (Abnormal) Range: 211-946 :42 CBC WITH MANUAL DIFF Comments: PATIENT WAS FASTINGPERFORMED BY: amcure70 PaySimpleAt[facility] [id number] Information: [id number] (30866) Immature Grans (Abs) 0.0 {x10E3/uL} (Normal) Range: [...] 3.77-5.28 WBC 5.5 {x10E3/uL} (Normal) Range: 4.0-10.5 57-Bcb-67912:42 Vitamin D Hydroxy (42270) Comments: PATIENT WAS FASTINGPERFORMED BY: LabCoCooper University HospitalNgboql6596 [facility] [id number] Vitamin D, 25-Hydroxy 32.2 ng/mL (Normal) Range: 30.0-100.0 Comments: Vitamin D deficiency has been defined by the [place] ofMedicine and an Endocrine Society practice guideline as alevel of serum 25-OH vitamin D less than 20 ng/mL (1,2).The Endocrine Society went on to further define vitamin Dinsufficiency as a level between 21 and 29 ng/mL (2).1. IOM ([place] of [place]). 2010. Dietary reference intakes for calcium and D. [place]: The National AcademU*tique Press.2. Eleni MF, Lorne MORTON, Dayron WALTON, et al. Evaluation, treatment, and prevention of vitamin D deficiency: an Endocrine Society clinical practice guideline. JCEM. 2010; 96(7):1911-30. :42 LIPID PANEL (56644) Comments: PATIENT WAS FASTINGPERFORMED BY: amcure70 [facility] [id number] LDL/HDL Ratio 2.2 {ratio_units} (Normal) Range: 0.0-3.2 [...] PANEL, COMPREHENSIVE Comments: PATIENT WAS FASTINGPERFORMED BY: [employer]6370 [facility] [id number] (70430) ALT (SGPT) 20 [iU]/L (Normal) Range: 0-32 [...] Glucose, Serum 148 mg/dL (Abnormal) Range: 65-99 55-Rct-47172:42 TSH (14828) Comments: PATIENT WAS FASTINGPERFORMED BY: [employer] [facility] [id number] TSH 2.140 {uIU/mL} (Normal) Range: 0.450-4.500 9-Bce-182457:41 Urinalysis, Office (63224) UA - BILIRUBIN Negative (Normal) UA - BLOOD Negative (Normal) UA - GLUCOSE Negative (Normal) UA - KETONES Negative mg/dL (Normal) UA - LEUKOCYTE ESTERASE Negative (Normal) UA - NITRITE Negative (Normal) UA - PH 8.5 (Normal) UA - PROTEIN 30 mg/dL (Normal) UA - SPECIFIC GRAVITY 1.020 (Normal) URINE UROBILINGN SUNNY TIMED Normal mg/dL (Normal) 68-Pvt-446790:08 CULTURE, SPUTUM (31951) Comments: PATIENT NOT FASTINGPERFORMED BY: [employer] LabKashmir Luxury HairRehoboth McKinley Christian Health Care ServicesMnmsff9767 [facility] [id number] Information: SRC:SPT ADD [id number] Result 1 RRF (Normal) Comments: Routine respiratory [...] {uIU/mL} (Normal) Range: 0.358-3.74 :24 VIT D,25 72714 37.4 ng/mL (Normal) Range: 30.0-100.0 Comments: Vitamin D deficiency has been defined by the [place] ofThe [facility] Systemcine and an Endocrine Society practice guideline as alevel of serum 25-OH vitamin D less than 20 ng/mL (1,2).The Endocrine Society went on to further define vitamin Dinsufficiency as a level between 21 and 29 ng/mL (2).1. IOM ([place] of [place]). 2011. Dietary reference intakes for calcium and D. [place]: The National Academies Press.2. Eleni CRAVEN, Lorne MORTON, Dayron WALTON, et al. Evaluation, treatment, and prevention of vitamin D deficiency: an Endocrine Society clinical practice guideline. JCEM. 2010; 96(7): 1911-30.Performed at: [address], [place], [place] [address]Dwb Director: Leigh Palomo MD, Phone: [phone] 4-Hlr-088764:43 Blood Glucose , Office (66262) Blood Glucose , Office 141 (Normal) 98-Hfp-34227:08 BILAT SCRN DIGITAL & CAD Radiology Report [...] normality. Dictated on 04/07/11 0925 by Jonah HUTCHINSON,NailaeleTranscribed on 04/07/11 1031 by ITS IMPORTSign by Leobardo Mckenzie MD on 04/07/11 1032 Sign by: Leobardo Mckenzie MD 91-Udb-150642:03 Rapid Strep Test, Office (48410) Comments: neg Rapid Strep Test, Office Negative (Normal) 19-Vad-405167:48 MEHREEN CULTURE-OTHER (25495) Comments: PATIENT NOT FASTINGPERFORMED BY: [facility] Vhquqo7036 [facility] [id number] Information: SRC:THRT [id number] Result 1 RRF (Normal) Comments: Routine respiratory marilin Upper Respiratory Culture Final report (Normal) 77-Dma-218205:37 Rapid Strep Test, Office (68727) Rapid Strep Test, Office Negative (Normal) 79-Qbi-536702:05 Rapid Flu (92798 x 2) Influenza A Ag negative (Normal) :18 MICROALBUMIN: CREATININE RATIO Comments: PATIENT WAS FASTINGPERFORMED BY: [employer] CenterCooper University HospitalXepcnr5914 [facility] [id number] (42363) AND (39345) Microalb/Creat Ratio 2.4 {mg/g_creat} (Normal) Range: 0.0-30.0 Microalbumin, Urine 4.6 ug/mL (Normal) Range: 0.0-17.0 Creatinine, Urine 189.1 mg/dL (Normal) Range: 15.0-278.0 :18 CBC WITH MANUAL DIFF Comments: PATIENT WAS FASTINGPERFORMED BY: [employer] CenterCooper University HospitalRijcjm6444 [facility] [id number] Information: [id number] (45931) Immature Grans (Abs) 0.0 {x10E3/uL} (Normal) Range: [...] 3.80-5.10 WBC 6.4 {x10E3/uL} (Normal) Range: 4.0-10.5 74-Pgp-68721:18 METABOLIC PANEL, COMPREHENSIVE Comments: PATIENT WAS FASTINGPERFORMED BY: [facility]6370 [facility] [id number] (54394) ALT (SGPT) 21 [iU]/L (Normal) Range: 0-40 [...] (Abnormal) Range: 65-99 :18 Vitamin D Hydroxy (43520) Comments: PATIENT WAS FASTINGPERFORMED BY: amcure70 G2 [facility]dUNC [facility] [id number] Vitamin D, 25-Hydroxy 38.2 ng/mL (Normal) Range: 32.0-100.0 Comments: Recent studies consider the lower limit of 32.0 ng/mL to be athreshold for optimal health.Tom SOLIS. J Nutr. 2004;135(2):317-22. :18 LIPID PANEL (95038) Comments: PATIENT WAS FASTINGPERFORMED BY: G[employer]ness6370 PaySimpleAtrium [facility] [id number] LDL Cholesterol Calc 69 mg/dL (Normal) Range: 0-99 LDL/HDL Ratio 1.7 {ratio_units} (Normal) Range: 0.0-3.2 HDL Cholesterol 40 mg/dL (Normal) Comments: According to ATP-III Guidelines, HDL-C >59 mg/dL is considered anegative risk factor for CHD. VLDL Cholesterol Edgardo 37 mg/dL (Normal) Range: 5-40 Cholesterol, Total 146 mg/dL (Normal) Range: 100-199 Triglycerides 184 mg/dL (Abnormal) Range: 0-149 :18 TSH (05748) Comments: PATIENT WAS FASTINGPERFORMED BY: G[employer]ness6370 [facility] [id number] TSH 1.380 {uIU/mL} (Normal) Range: 0.450-4.500 :58 HgA1C , Office (36260) HgA1C , Office 6.4 % (Normal) Range: 4.6 - 7.1 :58 Blood Glucose , Office (00901) Blood Glucose , Office 146 (Normal) 72-Ylg-466482:43 L/S SPINE,MIN 4 VIEWS (MT) Radiology Report See Note (Normal) Comments: Exam Number: [id number] CLINICAL:The patient is a 59-year-old woman with [...] ESTElectronically Signed PM/PM As part of our Textile Machine Operator Program, we request that surgical orpathologic correlation, or any additional supportive or discordantmedical history, laboratory or imaging studies be forwarded [facility], attention: Peer ReviewCoordinator. , , [address] [address], [address] [place] [address]. Reported By: CHASTITY RETANA M.D. 58-Zcy-498544:28 Urinalysis, Office (75454) UA - BILIRUBIN Negative (Normal) UA - BLOOD Negative (Normal) UA - GLUCOSE Negative (Normal) UA - KETONES Negative mg/dL (Normal) UA - LEUKOCYTE ESTERASE Negative (Normal) UA - NITRITE Negative (Normal) UA - PH 6.0 (Normal) UA - PROTEIN Negative mg/dL (Normal) UA - SPECIFIC GRAVITY 1.025 (Normal) URINE UROBILINGN SUNNY TIMED 2 mg/dL (Normal) 72-Opd-803017:46 Thin prep Pap (09395) Comments: Source.............VaginalLMP / Prev Treat...HystNo. of containers..01 CYTYC Thin Prep VialPERFORMED BY: [facility] Akcecbinon209 [place] [facility] DAWNA [id number] Information: [id number] Note: PAPSMR (Normal) Comments: The Pap smear [...] history of hysterectomy.V72.31 ; Routine gynecological exami [facility] Luis, Brake Repairer Bus (ASCP) 22-Qeb-485124:06 Vitamin D Hydroxy (48330) Comments: PATIENT WAS FASTINGPERFORMED BY: [employer] Qbwkmj1220 [facility] [id number] Vitamin D, 25-Hydroxy 26.5 ng/mL (Abnormal) Range: 32.0-100.0 Comments: Recent studies consider the lower limit of 32.0 ng/mL to be athreshold for optimal health.Tom SOLIS. J Nutr. 2004;135(2):317-22. 33-Kpj-896124:06 LIPID PANEL (97012) Comments: PATIENT WAS FASTINGPERFORMED BY: LabKashmir [employer] Hair Qrhntk3947 [facility] SpringsTARGET BRAZILAtrium Health Waxhaw [id number] LDL Cholesterol Calc 57 mg/dL (Normal) Range: 0-99 LDL/HDL Ratio 1.4 {ratio_units} (Normal) Range: 0.0-3.2 VLDL Cholesterol Edgardo 32 mg/dL (Normal) Range: 5-40 HDL Cholesterol 41 mg/dL (Normal) Comments: According to ATP-III Guidelines, HDL-C >59 mg/dL is considered anegative risk factor for CHD. Triglycerides 162 mg/dL (Abnormal) Range: 0-149 Cholesterol, Total 130 mg/dL (Normal) Range: 100-199 71-Uof-435893:06 METABOLIC PANEL, Comments: PATIENT WAS FASTINGPERFORMED BY: TARAS [facility] Ymwqip2806 [facility] [id number] Information: ADD [id number] AND DRAW FEE 99 [id number] COMPREHENSIVE (15074) ALT (SGPT) 23 [iU]/L (Normal) Range: 0-40 [...] (Abnormal) Range: 65-99 :20 HgA1C , Office (58166) HgA1C , Office 6.8 % (Normal) Range: 4.6 - 7.1 :20 Blood Glucose , Office (58518) Blood Glucose , Office 129 (Normal) 69-Vlr-754931:38 Rapid Strep Test, Office (87835) Rapid Strep Test, Office Negative (Normal) :09 HgA1C , Office (00690) HgA1C , Office 6.9 % (Normal) Range: 4.6 - 7.1 :09 Blood Glucose , Office (07077) Blood Glucose , Office 127 (Normal) :14 METABOLIC PANEL, COMPREHENSIVE Comments: PATIENT WAS FASTINGPERFORMED BY: LabCoCooper University HospitalSsezpj2572 [facility] [id number] (40876) Alkaline Phosphatase, S 60 [iU]/L (Normal) Range: [...] Glucose, Serum 141 mg/dL (Abnormal) Range: 65-99 81-Ure-45840:14 CBC WITH MANUAL DIFF Comments: PATIENT WAS FASTINGPERFORMED BY: [facility]Select [facility]6370 [facility] [id number] Information: [id number] (60424) Baso (Absolute) 0.0 {x10E3/uL} (Normal) Range: 0.0-0.2 [...] URINE QUANT Comments: PATIENT WAS FASTINGPERFORMED BY: [employer] [facility] CenterCooper University HospitalSlbzrn1058 [facility] [id number] (18761) Microalb/Creat Ratio <.8 {mg/g_creat} (Normal) Range: 0.0-30.0 Microalbumin, Urine <1.0 ug/mL (Normal) Range: 0.0-17.0 Creatinine, Urine 124.3 mg/dL (Normal) Range: 15.0-278.0 :14 TSH (34968) Comments: PATIENT WAS FASTINGPERFORMED BY: [employer] Pcatvs2613 [facility] [id number] TSH 2.150 {uIU/mL} (Normal) Range: 0.450-4.500 Comments: Effective July 22, 2009, TSH reference interval for11 - 19 years will be changing to: 0.450 - 4.500 uIU/mLReference interval for all other ages will NOT be affected. :14 Vitamin D Hydroxy (48365) Comments: PATIENT WAS FASTINGPERFORMED BY: [employer] CenterCooper University HospitalAneecx6679 [facility] [id number] Vitamin D, 25-Hydroxy 26.6 ng/mL (Abnormal) Range: 32.0-100.0 Comments: Recent studies consider the lower limit of 32.0 ng/mL to be athreshold for optimal health.Tom SOLIS. J Nutr. 2004;135(2):317-22. :14 LIPID PANEL (07161) Comments: PATIENT WAS FASTINGPERFORMED BY: [employer] CenterCooper University HospitalKjbjtd8286 [facility] [id number] HDL Cholesterol 42 mg/dL (Normal) Comments: According to ATP-III Guidelines, HDL-C >59 mg/dL is considered anegative risk factor for CHD. LDL Cholesterol Calc 100 mg/dL (Abnormal) Range: 0-99 LDL/HDL Ratio 2.4 {ratio_units} (Normal) Range: 0.0-3.2 Triglycerides 172 mg/dL (Abnormal) Range: 0-149 VLDL Cholesterol Edgardo 34 mg/dL (Normal) Range: 5-40 Cholesterol, Total 176 mg/dL (Normal) Range: 100-199 :07 HgA1C , Office (84674) HgA1C , Office 6.1 % (Normal) Range: 4.6 - 7.1 :07 Blood Glucose , Office (80856) Blood Glucose , Office 232 (Normal) 82-Wie-27698:25 Lower Respiratory Culture Comments: Clinical Information: SRC:SP PERFORMED BY: [employer] Qzehbs9734 [facility] [id number] Lower Respiratory Culture Final report (Normal) Result 1 RRF (Normal) Comments: Routine respiratory marilin 89-Som-332342:00 Influenza A, H1N1, RT PCR Comments: Clinical Information: SRC:NL PERFORMED BY: [employer]6370 [facility] [id number] Subtype Novel H1N1 by Negative (Normal) PCR Type Influenza A by Negative (Normal) PCR Viral Final report Comments: PERFORMED BY: [employer] [address] [id number] Culture,Rapid,Influen (Normal) Comments: Negative:No Influenza A or B detected. 29-Lol-523972:29 CHEST, PA AND LATERAL (MT) Radiology Report See Note (Normal) Comments: Exam Number: [id number] CLINICAL:58-year-old woman with cough and shortness of [...] cardiopulmonary process. Reported By: ROSEMARIE ROBBINS M.D. 20-Dgw-336393:45 Rapid Strep Test, Office (16608) Comments: done Rapid Strep Test, Office Negative (Normal) 50-Tuv-797708:32 Rapid Flu (79429 x 2) Comments: done INFLUENZA IMMUNOASSY negative (Normal) DIRECT OPTICAL OBSERV 04-Apr-20090:00 FLU A+B DIRECT See Note (Normal) Comments: Negative test results should be confirmed by culture. Order Rapid Viral Culture for Influenzae A+B ([id number]) if clinically indicated. INFLUENZA ANTIGEN,DIRECT Presumptive NEGATIVE for Influenza A/B Antigen (See Note) 95-Fob-004395:04 METABOLIC PANEL, COMPREHENSIVE Comments: PATIENT WAS FASTINGPERFORMED BY: LabCoCooper [facility] HospitalGsrmro6054 [facility] [id number] (93313) A/G Ratio 1.6 (Normal) Range: 1.1-2.5 Albumin, [...] Sodium, Serum 141 mmol/L (Normal) Range: 135-145 97-Xke-085198:04 MICROALBUMIN: CREATININE RATIO Comments: PATIENT WAS FASTINGPERFORMED BY: [facility] Diehl51 GiveUNC [facility] [id number] (05614) AND (56376) Creatinine, Urine 124.0 mg/dL (Normal) Range: 15.0-278.0 Microalb/Creat Ratio 1.5 {ug/mg_creat} (Normal) Range: 0.0-30.0 Microalbumin, Urine 1.9 ug/mL (Normal) Range: 0.0-17.0 :04 LIPID PANEL (43195) Comments: PATIENT WAS FASTINGPERFORMED BY: [facility] [id number] Cholesterol, Total 155 mg/dL (Normal) Range: 100-199 HDL Cholesterol 44 mg/dL (Normal) Comments: According to ATP-III Guidelines, HDL-C >59 mg/dL is considered anegative risk factor for CHD. LDL Cholesterol Calc 89 mg/dL (Normal) Range: 0-99 LDL/HDL Ratio 2.0 {ratio_units} (Normal) Range: 0.0-3.2 Triglycerides 109 mg/dL (Normal) Range: 0-149 VLDL Cholesterol Edgardo 22 mg/dL (Normal) Range: 5-40 :04 Vitamin D Hydroxy (92256) Comments: PATIENT WAS FASTINGPERFORMED BY: [employer] Gxhusd2514 [facility] [id number] Vitamin D, 25-Hydroxy 24.9 ng/mL (Abnormal) Range: 32.0-100.0 Comments: Recent studies consider the lower limit of 32.0 ng/mL to be athreshold for optimal health.Tom SOLIS. J Nutr. 2004;135(2):317-22. :04 C-REACTIVE PROTEIN (01096) Comments: PATIENT WAS FASTINGPERFORMED BY: TARAS [employer]6370 [facility] [id number] C-Reactive Protein, Quant 4.4 mg/L (Normal) Range: 0.0-4.9 :04 CBC WITH MANUAL DIFF (34387) Comments: PATIENT WAS FASTINGClinical Information: ADD DRAW FEE 050150 ADD J [id number] PERFORMED BY: [employer] Qpgklp9528 [facility] [id number] Baso (Absolute) 0.1 {x10E3/uL} (Normal) Range: 0.0-0.2 [...] 11.7-15.0 WBC 5.0 {x10E3/uL} (Normal) Range: 4.0-10.5 36-Emj-456092:04 TSH (26496) Comments: PATIENT WAS FASTINGPERFORMED BY: [employer]70 [facility] [id number] TSH 1.151 {uIU/mL} (Normal) Range: 0.450-4.500 17-Fzw-880558:00 HgA1C , Office (45957) HgA1C , Office 6.2 % (Normal) Range: 4.6 - 7.1 53-Ybc-983944:00 Blood Glucose , Office (98423) Blood Glucose , Office 132 (Normal) 47-Evv-147091:39 ABDOMEN WITH IV CONTRAST Radiology Report See Note (Normal) Comments: Exam Number: [id number] CT ABDOMEN WITH CONTRAST CLINICAL STATEMENTRight upper [...] anincidental adenoma. Reported By: EDILIA WHEELER M.D. 79-Tfw-488362:38 CHEST WITH CONTRAST Radiology Report See Note (Normal) Comments: Exam Number: [id number] CT OF THE CHEST WITH CONTRAST. STATEMENTCough, [...] Comments: LIVER FUNCTION: PLEASE CALL DR CHEN, [employer] CAR MECH[employer]IC FOR DR FUENTES 46 Range: 25-115 96-Uew-281925: C-REACTIVE PROT 13.74 mg/L (Abnormal) Comments: LIVER FUNCTION: PLEASE CALL DR CHEN [employer] FOR DR FUENTES 46 Range: 0.0-6.0 Comments: Test performed using the Dimension C-Reactive ProteinExtended Range assay method. This assay meets the AHA/CDC 2003 recommendations fordetermining patients at high risk for cardiovasculardisease. Reference: High risk CRP >3.0 mg/L 82-Mky-526340:46 CBCD,SMEAR DIFF BAND 1 % (Normal) Range: [...] 47-70 WBC 5.6 K/mm3 (Normal) Range: 4.4-11.0 07-Uad-944475:46 COMP METABOLIC Comments: LIVER FUNCTION: PLEASE CALL DR CHEN, [employer]EIGN CAR MECH[employer]IC FOR DR CHRISTINA. A/G 1.2 {RATIO} (Normal) [...] T PROT 7.4 g/dL (Normal) Range: 6.4-8.2 :46 D-DIMER QUANT <200 ng/mL (Normal) Comments: NORMAL D-Dimer level indicates no DVT or PE. RESULTS CALLED TO DR CHEN 09/21/08 170RAD ARGUELLES.REPORT READ BACK BY SAME . 55-Sjq-552238:46 ESR SED RATE 29 mm/h (Normal) Range: 0-30 :46 LIPASE 239 U/L (Normal) Comments: LIVER FUNCTION: PLEASE CALL DR CHEN, [employer]EIGN CAR MECH[employer]IC FOR DR CHRISTINA. Range: 114-286 36-Oqd-072795:12 HgA1C , Office (68043) HgA1C , Office 6.1 % (Normal) Range: 4.6 - 7.1 37-Psx-794172:12 Blood Glucose , Office (03088) Blood Glucose , Office 116 (Normal) 26-Ezp-840384:48 Urine Culture,Comprehensive Comments: Clinical Information: SRC:UR PERFORMED BY: [facility] CenterCooper University HospitalXdbnnj9275 [facility] [id number] Result 1 MUG (Normal) Comments: Mixed urogenital Colonies/mL Urine Culture,Comprehensive Final report (Normal) 71-Fel-839199:31 L/S SPINE,MIN 4 VIEWS (MT) Radiology Report See Note (Normal) Comments: Exam Number: [id number] LUMBAR SPINE, 5 VIEWS CLINICAL STATEMENTFollow up bone density study, question compression of L5. COMPARISONBone Dexatometry May 03, 2008. 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 Vertebral body height andalignment appears maintained. Multilevel mild degenerative discchanges are present throughout the lumbar spine with end plateosteophyte formation present. There is mini mal concavity of the J4yqylpqii end plate likely secondary to degenerative change [...] position orspasm. Reported By: EDILIA WHEELER M.D. 96-Lse-96629:59 METABOLIC PANEL, COMPREHENSIVE Comments: PATIENT WAS FASTINGPERFORMED BY: [facility]WireSelect [facility] Hospital-Saginaw6370 [facility] [id number] (14672) A/G Ratio 1.4 (Normal) Range: 1.1-2.5 Albumin, [...] Total 3.0 g/dL (Normal) Range: 1.5-4.5 If -Bulgarian >59 mL/min/1.73 Comments: Note: Persistent reduction for [...] Glucose, Serum 136 mg/dL (Abnormal) Range: 65-99 93-Clu-43022:59 CBC WITH MANUAL DIFF (79784) Comments: PATIENT WAS FASTINGClinical Information: ADD DRAW FEE 483073 ADD J [id number] PERFORMED BY: Lab[address] [id number] Baso (Absolute) 0.0 {x10E3/uL} (Normal) Range: 0.0-0.2 [...] FUNCTION PANEL Comments: PATIENT WAS FASTINGPERFORMED BY: [facility] CenterCooper University HospitalVsrhti5805 [facility] [id number] (35707) Bilirubin, Direct 0.09 mg/dL (Normal) Range: 0.00-0.40 :59 LIPID PANEL (07307) Comments: PATIENT WAS FASTINGPERFORMED BY: [facility] CenterCooper University HospitalCcobkk5162 [facility] [id number] Cholesterol, Total 156 mg/dL (Normal) Range: 100-199 HDL Cholesterol 43 mg/dL (Normal) Comments: According to ATP-III Guidelines, HDL-C >59 mg/dL is considered anegative risk factor for CHD. LDL Cholesterol Calc 77 mg/dL (Normal) Range: 0-99 LDL/HDL Ratio 1.8 {ratio_units} (Normal) Range: 0.0-3.2 Triglycerides 180 mg/dL (Abnormal) Range: 0-149 VLDL Cholesterol Edgardo 36 mg/dL (Normal) Range: 5-40 47-Vhk-707114:27 Urinalysis, Office (88154) UA - BILIRUBIN Negative (Normal) UA - [...] Report See Note (Normal) Comments: Exam Number: [id number] BONE DENSITOMETRY HISTORYOsteopenia. TECHNIQUE Bone densitometry of [...] Report See Note (Normal) Comments: Exam Number: [id number] ULTRASOUND OF ABDOMINAL AORTA HISTORYFamily history of [...] in size. Reported By: CHASTITY RETANA M.D. 37-Tbl-629211:06 URINE MEHREEN CULTURE-SUNNY COL Comments: PATIENT NOT FASTINGClinical Information: SRC:UR ADD [id number] PERFORMED BY: Rayn Diehl miradio.fmUNC Health Johnston [id number] COUNT (64384) Result 1 Proteus mirabilis Comments: 2,000 Colonies/mL [...] STrimethoprim/Sulfa S Urine Final report (Normal) Culture,Comprehensive 25-Vuw-18222:19 HEPATIC FUNCTION PANEL Comments: PATIENT WAS FASTINGClinical Information: ADD DRAW FEE 451120 ADD J [id number] PERFORMED BY: [employer]ox miradio.fmUNC Health Johnston [id number] (51390) Albumin, Serum 4.0 g/dL (Normal) Range: 3.5-5.5 Alkaline Phosphatase, S 91 [iU]/L (Normal) Range: 25-150 ALT (SGPT) 18 [iU]/L (Normal) Range: 0-40 AST (SGOT) 21 [iU]/L (Normal) Range: 0-40 Bilirubin, Direct 0.11 mg/dL (Normal) Range: 0.00-0.40 Bilirubin, Total 0.4 mg/dL (Normal) Range: 0.1-1.2 Protein, Total, Serum 6.8 g/dL (Normal) Range: 6.0-8.5 :19 LIPID PANEL (96493) Comments: PATIENT WAS FASTINGPERFORMED BY: LabCoCooper University HospitalVzrsxv6458 [facility] [id number] Cholesterol, Total 159 mg/dL (Normal) Range: 100-199 HDL Cholesterol 41 mg/dL (Normal) Range: 40-59 Comments: EFFECTIVE APRIL 30, 2008 the reference interval for HDL-C will be changing to: >39 mg/dL LDL Cholesterol Calc 80 mg/dL (Normal) Range: 0-99 LDL/HDL Ratio 2.0 {ratio_units} (Normal) Range: 0.0-3.2 Triglycerides 192 mg/dL (Abnormal) Range: 0-149 VLDL Cholesterol Edgardo 38 mg/dL (Normal) Range: 5-40 75-Jby-159770:08 Urinalysis, Office (88457) Comments: done km UA - BILIRUBIN Negative (Normal) UA - BLOOD Negative (Normal) UA - GLUCOSE Negative (Normal) UA - KETONES Negative mg/dL (Normal) UA - LEUKOCYTE ESTERASE Small (Normal) UA - NITRITE Negative (Normal) UA - PH 6.0 (Normal) UA - PROTEIN Negative mg/dL (Normal) UA - SPECIFIC GRAVITY 1.015 (Normal) URINE UROBILINGN SUNNY TIMED Normal mg/dL (Normal) :25 HgA1C , Office (80614) HgA1C , Office 5.7 % (Normal) Range: 4.6 - 7.1 :25 Blood Glucose , Office (49195) Blood Glucose , Office 127 (Normal) 23-Ugx-170994:47 UNILAT LT DIAG DIGITAL & CAD Radiology Report See Note (Normal) Comments: Exam Number: [id number] MAMMOGRAM, UNILATERAL LEFT DIAGNOSTIC DIGITAL AND CAD [...] mammograms werealso examined with computer-aided detection software ([employer] Reported By: CHASTITY RETANA M.D. 51-Rgx-47307:10 [facility] DIGITAL & CAD Radiology Report See Note (Normal) Comments: Exam Number: [id number] MAMMOGRAM, BILATERAL SCREENING DIGITAL AND CAD HISTORYRoutine [...] mammograms werealso examined with computer-aided detection software ([employer] Reported By: CHASTITY RETANA M.D. :36 HgA1C , Office (96055) HgA1C , Office 7.4 % (Abnormal) Range: 4.6 - 7.1 :36 Blood Glucose , Office (71719) Blood Glucose , Office 168 (Normal) :15 [...] Range: 5-40 :15 MICROALBUMIN,UR 6.7 mg/L (Normal) 50-Nux-898521:15 TSH 1.71 {uIU/mL} (Normal) Range: 0.34-4.82 :46 CBC WITH MANUAL DIFF (69483) Comments: PATIENT NOT FASTINGClinical Information: ADD [id number] ADD [id number] PERFORMED BY: LabSelect [facility]ty Hospital-Saginaw6370 [facility] [id number] Baso (Absolute) 0.0 {x10E3/uL} (Normal) Range: 0.0-0.2 [...] Report See Note (Normal) Comments: Exam Number: [id number] MYOCARDIAL PERFUSION SCAN TECHNIQUEThe patient was injected [...] FLOR WEI M.D. :44 HgA1C , Office (50910) HgA1C , Office 7.2 % (Abnormal) Range: 4.6 - 7.1 :44 Blood Glucose , Office (03097) Blood Glucose , Office 141 (Normal) :48 HgA1C , Office (75732) HgA1C , Office 7.3 % (Abnormal) Range: 4.6 - 7.1 :47 Blood Glucose , Office (19508) Blood Glucose , Office 148 (Normal) :12 [...] mg/dL VLDL 34 mg/dL (Normal) Range: 5-40 :12 TSH 1.61 {uIU/mL} (Normal) Range: 0.34-4.82 74-Btf-031209:10 CBCD,SMEAR DIFF BASOPHIL 1 % (Normal) Range: [...] Range: 4.4-11.0 :46 Blood Glucose , Office (02849) Blood Glucose , Office 163 (Normal) :24 HgA1C , Office (33831) HgA1C , Office 6.6 % (Normal) Range: 4.6 - 7.1 :24 Blood Glucose , Office (44136) Blood Glucose , Office low (Normal) :09 HgA1C , Office (91518) Comments: done HgA1C , Office 6.5 % (Normal) Range: 4.6 - 7.1 :09 Blood Glucose , Office (67045) Comments: done Blood Glucose , Office 161 [...] (Normal) Range: 0.34-4.82 :05 HgA1C , Office (36876) HgA1C , Office 7.2 % (Abnormal) Range: 4.6 - 7.1 02-Qhd-675253:05 Blood Glucose , Office (24186) Blood Glucose , Office 114 (Normal) :35 [...] 11.6-14.6 WBC 7.4 K/mm3 (Normal) Range: 4.4-11.0 :14 CHEST, PA AND LATERAL Radiology Report See Note (Normal) Comments: Exam Number: [id number] CHEST, PA AND LATERAL HISTORYShortness of breath. FINDINGSCardiac configuration is normal. There is mild overinflation of thelungs. No acute infiltrate, effusion, or pneumothora x is identified. IMPRESSIONNo acute changes noted in the lungs. Reported By: FLOR CHOWDHURY M.D. 10-Vhr-763094:59 CHEST, PA AND LATERAL Radiology Report See Note (Normal) Comments: Exam Number: [id number] PA AND LATERAL CHEST HISTORY Being done [...] infiltrate identified. Reported By: FLOR CHOWDHURY M.D. 30-Ujv-956749:59 JHONNY 62691 59 U/L (Normal) Range: - Comments: Performed At: [address] [id number] 84-Zmd-747031:06 JHONNY [address]605 61 U/L (Normal) Range: -09-Jul-200610:06 REBECCA-D 490987 REBECCA-DIRECT 31 U/mL (Normal) Range: 0-99 Comments: Negative <100 Equivocal 100 - 120 Positive >120 51-Tuu-651775:06 C-REACTIVE PROT 7.75 mg/L (Abnormal) Range: 0.0-6.0 Comments: Test performed using the Dimension C-Reactive ProteinExtended Range assay method. This assay meets the AHA/CDC 2003 recommendations fordetermining patients at high risk for cardiovasculardisease. Reference: High risk CRP >3.0 mg/L 17-Daq-058405:06 CBCD,SMEAR DIFF CELLS COUNTED 100 (Normal) EOS [...] 47-70 WBC 4.4 K/mm3 (Normal) Range: 4.4-11.0 09-Uff-145981:06 ESR SED RATE 5 mm/h (Normal) Range: 0-30 69-Qym-047499:06 HISTOPL 474631 SeeNote (Normal) Comments: Result: Negative Performed At: [facility] Mrwzyb9829 [place], [place] [id number] At: [facility] [address] [id number] :06 LDH 170 U/L (Normal) Range: 100-190 59-Rtj-083143:06 RA LATEX 6502 4.4 {IU/mL} (Normal) Range: 0.0-13.9 :49 CBCD,SMEAR DIFF CELLS COUNTED 100 (Normal) EOS [...] methodology of Hgb A1C has changed to Wilkinson BehringDimension RXL. No significant changes in patientresults [...] (Normal) Range: 0.34-4.82 :31 HgA1C , Office (79477) HgA1C , Office 7.9 % (Abnormal) Range: 4.6 - 7.1 :31 Blood Glucose , Office (77818) Blood Glucose , Office 302 (Normal) Plan of Care Name Dates Details Instructions Back pain : Follow up when possible [...] Make follow up apt with [facility] EngineerMaxim[facility] on September 23 between 2-4 Indication: Acute [...] Wheezing Cough : Follow up tomorrow with [facility] Indication: Cough Unspecified asthma with (acute) [...] DIAGNOSTIC TESTS Indication: Acute sinusitis Planned Observations Lipid Panel (05858)Indication: Diabetes mellitus type II, controlled, with no complications (Renamed from Controlled type 2 diabetes mellitus without complication) On: :31 Request MICROALBUMIN: CREATININE RATIO (80942) AND (98403)Indication: Diabetes mellitus type II, controlled, with no complications (Renamed from Controlled type 2 diabetes mellitus without complication) On: :30 Request TSH (16604)Indication: Diabetes mellitus type II, controlled, with no complications (Renamed from Controlled type 2 diabetes mellitus without complication) On: :30 Request CBC, Platelets & Auto Diff (64705)Indication: Diabetes mellitus type II, controlled, with no complications (Renamed from Controlled type 2 diabetes mellitus without complication) On: :30 Request Metabolic Panel, Comprehensive (94578)Indication: Diabetes mellitus type II, controlled, with no complications (Renamed from Controlled type 2 diabetes mellitus without complication) On: 1-Hha-185891:30 Request GLUCOSE (68074)Indication: Hypoglycemia On: 24-Uct-586958:48 Request Cortisol,Urinary Free 24- Hour Urine (34244)Indication: Adrenal adenoma, right On: 62-Nwa-671476:54 Request Catecholamines,24-Hour Urine (51288)Indication: Adrenal adenoma, right On: 65-Aox-245387:54 Request DHEA (DEHYDROEPIANDROSTERONE) (15225)Indication: Adrenal adenoma, right On: 00-Dsd-800427:51 Request METABOLIC PANEL, COMPREHENSIVE (37615)Indication: Adrenal adenoma, right On: 11-Vox-773301:51 Request LIPID PANEL (79860)Indication: Hypercholesteremia On: 78-Ism-38240:23 Request HGB A1C (67318)Indication: Diabetes mellitus type II, controlled, with no complications (Renamed from Controlled type 2 diabetes mellitus without complication) On: 22-Gjx-581580:00 Request Comments: Jun 2016 1 week before apt METABOLIC PANEL, COMPREHENSIVE (71037)Indication: Hypercalcemia On: 58-Idg-753683:03 Request GLUCOSE (65656)Indication: Type 2 or unspecified type diabetes mellitus, uncontrolled On: 98-Rqj-930657:00 Request METABOLIC PANEL, COMPREHENSIVE (11103)Indication: Type 2 or unspecified type diabetes mellitus, uncontrolled On: 39-Qlf-109222:28 Request CALCIFEDIOL (27184)Indication: Vitamin D deficiency, unspecified On: :27 Request URINALYSIS, W/ MICRO (71428)Indication: Type 2 or unspecified type diabetes mellitus, uncontrolled On: 79-Hbz-382523:18 Request MICROALBUMIN: CREATININE RATIO (00219) AND (35527)Indication: Type 2 or unspecified type diabetes mellitus, uncontrolled On: 06-Muw-971182:18 Request TSH (66825)Indication: Type 2 or unspecified type diabetes mellitus, uncontrolled On: 87-Aov-884112:18 Request Lipid Panel (15564)Indication: Type 2 or unspecified type diabetes mellitus, uncontrolled On: 65-Mfg-415395:18 Request Metabolic Panel, Comprehensive (91377)Indication: Type 2 or unspecified type diabetes mellitus, uncontrolled On: 99-Dqg-397854:18 Request HGB A1C (59508)Indication: Type 2 or unspecified type diabetes mellitus, uncontrolled On: 49-Qcf-973009:14 Request Comments: 6.6 CBC W/AUTO DIFF WBC (83598)Indication: Hypertension On: :07 Request METABOLIC PANEL, COMPREHENSIVE (92531)Indication: Hypertension On: :07 Request Vitamin D Hydroxy (11778)Indication: Vitamin D deficiency, unspecified On: 70-Cvr-464577:07 Request LIPID PANEL (97492)Indication: Other and unspecified hyperlipidemia On: :07 Request Vitamin D Hydroxy (97344)Indication: Vitamin D deficiency, unspecified On: :15 Request CBC with auto diff (89021)Indication: Hypertension On: :14 Request TSH (07799)Indication: Hypothyroidism On: :14 Request MICROALBUMIN: CREATININE RATIO (83512) AND (93458)Indication: Type 2 or unspecified type diabetes mellitus, uncontrolled On: :14 Request METABOLIC PANEL, COMPREHENSIVE (04301)Indication: Hypertension On: :14 Request LIPID PANEL (27892)Indication: Other and unspecified hyperlipidemia On: :13 Request MYOGLOBIN (49481)Indication: Chest pain On: :52 Request CPK MB FRACTION (09514)Indication: Chest pain On: :52 Request ASSAY, TROPONIN, QUANTITATIVE (aka Troponin I) (22620)Indication: Chest pain On: :52 Request CBC WITH MANUAL DIFF (65667)Indication: Acute exacerbation of COPD with asthma On: 06-Aug-20149:52 Request CALCIFEDIOL (51386)Indication: Depression On: 85-Ore-876611:50 Request Lipid Panel (22812)Indication: Other and unspecified hyperlipidemia On: 82-Vym-081985:50 Request TSH (88993)Indication: Hypothyroidism On: 32-Tka-589236:49 Request URINALYSIS (19644)Indication: Hypertension On: 53-Psl-418590:49 Request CBC WITH MANUAL DIFF (77124)Indication: Hypertension On: 17-Tug-661180:49 Request Metabolic Panel, Comprehensive (02910)Indication: Hypertension On: 38-Cie-712798:49 Request CBC (AUTO) (83937)Indication: Hypercalcemia On: 9-Jpp-193179:06 Request UPEP (88805)Indication: Hypercalcemia On: 3-Ats-124026:06 Request SPEP (88913)Indication: Hypercalcemia On: 9-Dbo-805929:06 Request SED RATE ERYTHROCYTE (79971)Indication: Hypercalcemia On: 3-Jca-209092:06 Request CALCIUM SERUM (30551)Indication: Hypercalcemia On: 3-Xjx-098189:05 Request PARATHORMONE (55198)Indication: Hypercalcemia On: 4-Rfa-143182:05 Request FECAL OCCULT HGB ASSAY- tubes sent home (03198)Indication: Well woman exam with routine gynecological exam On: 20-Gfb-214824:54 Request HgA1C , Office (15865)Indication: Type 2 or unspecified type diabetes mellitus, uncontrolled On: 73-Lhj-214290:45 Request CBC WITH MANUAL DIFF (29875)Indication: Osteopenia On: 76-Hyj-824807:23 Request Vitamin D Hydroxy (55243)Indication: Vitamin D deficiency, unspecified On: 11-Urh-965074:22 Request TSH (22925)Indication: Hypothyroidism On: :22 Request METABOLIC PANEL, COMPREHENSIVE (28738)Indication: Sarcoidosis On: :21 Request Thin prep Pap (29943)Indication: Well woman exam with routine gynecological exam On: 9-Oju-045937:16 Request FECAL OCCULT HGB ASSAY- tubes sent home (78911)Indication: Well woman exam with routine gynecological exam On: 5-Hvz-216173:16 Request METABOLIC PANEL, COMPREHENSIVE (47247)Indication: Type 2 or unspecified type diabetes mellitus, uncontrolled On: 8-Lhv-256168:14 Request CBC WITH MANUAL DIFF (70927)Indication: Type 2 or unspecified type diabetes mellitus, uncontrolled On: 0-Dnc-639091:14 Request MICROALBUMIN: CREATININE RATIO (13652) AND (15903)Indication: Type 2 or unspecified type diabetes mellitus, uncontrolled On: 7-Hxd-718281:14 Request Vitamin D Hydroxy (58349)Indication: Vitamin D deficiency, unspecified On: 0-Rlg-166223:14 Request METABOLIC PANEL, COMPREHENSIVE (45680)Indication: Benign essential hypertension On: 3-Rqz-525895:14 Request TSH (10949)Indication: Hypothyroidism On: 5-Mij-525181:14 Request LIPID PANEL (18347)Indication: Other and unspecified hyperlipidemia On: 2-Ggb-225882:14 Request HgA1C , Office (16064)Indication: Type 2 or unspecified type diabetes mellitus, uncontrolled On: 9-Ywc-244966:43 Request CBC WITH MANUAL DIFF (06700)Indication: Benign essential hypertension On: 4-Qow-136831:22 Request METABOLIC PANEL, COMPREHENSIVE (55786)Indication: Benign essential hypertension On: 8-Uwp-605048:22 Request LIPID PANEL (10819)Indication: Other and unspecified hyperlipidemia On: 6-Oku-192022:22 Request MEHREEN CULTURE-OTHER (87919)Indication: Pharyngitis, acute On: 12-Pan-409636:38 Request LIPID PANEL (06537)Indication: Other and unspecified hyperlipidemia On: :40 Request CBC WITH MANUAL DIFF (67383)Indication: DIABETES MELLITUS WITHOUT MENTION OF COMPLICATION; TYPE II OR UNSPECIFIED TYPE, NOT STATED UNCONTROLLED On: :40 Request METABOLIC PANEL, COMPREHENSIVE (82825)Indication: DIABETES MELLITUS WITHOUT MENTION OF COMPLICATION; TYPE II OR UNSPECIFIED TYPE, NOT STATED UNCONTROLLED On: 82-Jwc-472739:40 Request Vitamin D Hydroxy (66011)Indication: Vitamin D deficiency, unspecified On: :38 Request CULTURE, SPUTUM (79986)Indication: Flu On: 34-Ywj-176902:45 Request nasal influenza swab (26715) E6Pptwpuzosc: Cough On: 5-Uyy-426272:00 Request Rapid Flu (47343 x 2)Indication: Cough On: 0-Rfl-458551:53 Request HEPATIC FUNCTION PANEL (84033)Indication: Other and unspecified hyperlipidemia On: 64-Tap-52861:42 Request LIPID PANEL (15034)Indication: Other and unspecified hyperlipidemia On: :42 Request Vitamin D Hydroxy (70112)Indication: Vitamin D deficiency, unspecified On: :41 Request Lipase (28694)Indication: Nausea On: 45-Wdr-298799:41 Request Amylase (33517)Indication: Nausea On: 89-Tdf-851679:41 Request C-REACTIVE PROTEIN (13717)Indication: SOB (shortness of breath) on exertion On: :39 Request SED RATE ERYTHROCYTE (43072)Indication: SOB (shortness of breath) on exertion On: :39 Request METABOLIC PANEL, COMPREHENSIVE (98139)Indication: SOB (shortness of breath) on exertion On: :39 Request CBC WITH MANUAL DIFF (17447)Indication: SOB (shortness of breath) on exertion On: 47-Nib-954966:39 Request D-Dimer (37912)Indication: SOB (shortness of breath) on exertion On: 74-Vor-867747:39 Request TSH (02831)Indication: Hypothyroidism On: 70-Iug-519611:41 Request MICROALBUMIN: CREATININE RATIO (84478) AND (74694)Indication: DIABETES MELLITUS WITHOUT MENTION OF COMPLICATION; TYPE II OR UNSPECIFIED TYPE, NOT STATED UNCONTROLLED On: 97-Crj-465372:37 Request HEPATIC FUNCTION PANEL (57916)Indication: Other and unspecified hyperlipidemia On: 39-Rig-388956:37 Request LIPID PANEL (85510)Indication: Other and unspecified hyperlipidemia On: 38-Dlp-979394:37 Request URINE MEHREEN CULTURE-SUNNY COL COUNT ([id number])Indication: Urinary frequency On: 64-Tcc-615288:05 Request URINE MEHREEN CULTURE-SUNNY COL COUNT ([id number])Indication: Urinary frequency On: 09-Twr-062136:05 Request URINE MEHREEN CULTURE-SUNNY COL COUNT ([id number])Indication: Urinary frequency On: 29-Izc-847549:05 Request URINE MEHREEN CULTURE-SUNNY COL COUNT ([id number])Indication: Urinary frequency On: 45-Bco-752573:05 Request URINE MEHREEN CULTURE-SUNNY COL COUNT ([id number])Indication: Urinary frequency On: 72-Fvt-547517:05 Request URINE MEHREEN CULTURE-SUNNY COL COUNT ([id number])Indication: Urinary frequency On: 79-Egg-584356:05 Request URINE MEHREEN CULTURE-SUNNY COL COUNT ([id number])Indication: Urinary frequency On: 08-Zpg-761722:05 Request MEHREEN CULTURE-OTHER ([id number])Indication: Family history of aneurysm On: 92-Uud-727146:17 Request MICROALBUMIN URINE QUANT ([id number])Indication: Type 2 or unspecified type diabetes mellitus, uncontrolled On: 83-Gle-75018:55 Request METABOLIC PANEL, COMPREHENSIVE ([id number])Indication: Hypertension On: :54 Request TSH ([id number])Indication: Hypothyroidism On: 37-Zff-92767:54 Request LIPID PANEL ([id number])Indication: Other and unspecified hyperlipidemia On: 91-Zsk-23684:53 Request TSH ([id number])Indication: Hypothyroidism On: 40-Nwa-851710:49 Request METABOLIC PANEL, COMPREHENSIVE ([id number])Indication: DIABETES MELLITUS WITHOUT MENTION OF COMPLICATION; TYPE II OR UNSPECIFIED TYPE, NOT STATED UNCONTROLLED On: 77-Bqc-874241:49 Request LIPID PANEL ([id number])Indication: DIABETES MELLITUS WITHOUT MENTION OF COMPLICATION; TYPE II OR UNSPECIFIED TYPE, NOT STATED UNCONTROLLED On: 20-Uxn-133941:49 Request CBC WITH MANUAL DIFF ([id number])Indication: Anemia On: :49 Request Rapid Strep Test, Office ([id number])Indication: Pharyngitis, acute On: 59-Xtd-024588:27 Request Comments: neg HDL Cholesterol-Direct ([id number])Indication: Low HDL (under 40) On: 36-Joh-450930:41 Request Comments: DO IN 3 MO LIPID PANEL ([id number])Indication: Other and unspecified hyperlipidemia On: :54 Request URINALYSIS W/O MICRO ([id number])Indication: Hypertension On: :54 Request TSH ([id number])Indication: Hypothyroidism On: :54 Request METABOLIC PANEL, COMPREHENSIVE ([id number])Indication: Hypertension On: :54 Request CBC WITH MANUAL DIFF ([id number])Indication: Anemia On: 24-Wic-652577:54 Request TSH ([id number])Indication: Hypothyroidism On: :59 Request URINALYSIS W/O MICRO ([id number])Indication: Type 2 or unspecified type diabetes mellitus, uncontrolled On: :59 Request CBC WITH MANUAL DIFF ([id number])Indication: Type 2 or unspecified type diabetes mellitus, uncontrolled On: :59 Request MICROALBUMIN: CREATININE RATIO ([id number]) AND ([id number])Indication: Type 2 or unspecified type diabetes mellitus, uncontrolled On: :58 Request METABOLIC PANEL, COMPREHENSIVE ([id number])Indication: Type 2 or unspecified type diabetes mellitus, uncontrolled On: :58 Request HgA1C , Office ([id number])Indication: Abnormal glucose tolerance test On: :35 Request Blood Glucose , Office ([id number])Indication: Abnormal glucose tolerance test On: 68-Gzw-465630:35 Request Planned Encounters Medical; [facility] Medicare Physical - On: 17-May-2018 14:30 [facility] CiDafne garza CNP, CNP, Mary E Planned Procedures CT - LDCT CHEST ( WITHOUT CONTRAST On: 02-May-2018 Intent )By: Dafne Jaime CNP, CNP, Mary E PFT - Before and After SpiroBy: On: 02-May-2018 Intent Dafne Jaime CNP, CNP, Mary E SIX MINUTE WALK TEST ([id number])By: On: 20-Apr-2018 Intent Visit, Nurse SPIROMETRY PERFORMED ([id number])By: On: 20-Apr-2018 Intent Visit, Nurse SPIROMETRY PERFORMED ([id number])By: On: 20-Apr-2018 Intent Visit, Nurse INFUSION, NORMAL SALINE SOLUTION , On: 24-Jan-2018 Intent 1000 CC (Special Coverage Comments: lot:[id number]:IV right anticub dose:1000ml given by:carmen Shay LPN Instructions Apply. See MCM: 2049) (J7030)By: Dafne Jaime CNP, CNP, Mary E IV Needle placement ([id number])By: On: 24-Jan-2018 Intent Dafne Jaime CNP, CNP, Mary E Radiology - Lumbar SpineBy: On: 23-Dec-[address] - Abdomen & Pelvis Stone On: 23-Dec-2017 Intent ProtocolBy: Yoselin Oconnell Comments: STAT R/O Kidney stones bilateral COMP EYE EXAMINATION, ESTAB PATIENT On: 09-Dec-2017 Intent ([id number])By: Yoselin Oconnell Toradol Injection, 30 mg On: 12-Jul-2017 Intent ([id number])By: Dafne Jaime CNP, CNP, Mary E Toradol Injection, 30 mg On: 07-Apr-2017 Intent ([id number])By: Dafne Jaime CNP, CNP, Mary E Flu Vaccine (Quadrivalent) 75232Nc: On: 24-Mar-2017 Intent Dafne Jaime CNP, CNP, Mary E Toradol Injection, 30 mg On: 24-Mar-2017 Intent ([id number])By: Dafne Jaime CNP, CNP, Mary E Rocephin Injection, 2 Gram On: 18-Nov-2016 Intent ([id number])By: Dafne Jaime CNP, CNP, Mary E Aerosol Treatment ([id number])By: Addison On: 18-Nov-2016 Intent Dafne DOUGHERTY CNP, Mary E Solu -Medrol Injection, 125 mg On: 18-Nov-2016 Intent ([id number])By: Dafne Jaime CNP, CNP, Mary E MAMMOGRAM, SCREENING, BOTH BREAST On: 19-Aug-2016 Intent ([id number])By: Dafne Jaime CNP, CNP, Mary E DEXA SCAN AXIAL SKELETON ([id number])By: On: 19-Aug-2016 Intent Dafne Jaime CNP, CNP, Mary E GROUP PULMONARY REHABILITATION WITH On: 11-Feb-2016 Intent EXERCISE ([id number])By: Dafne Jaime CNP, CNP, Mary E Six Minute Walk Assessment On: 17-Oct-2015 Intent ([id number])By: Visit, Nurse PFT - CompleteBy: Vanessa Chen MD On: 24-Sep-2015 Intent M Rocephin Injection, 2 Gram On: 21-Aug-2015 Intent ([id number])By: Dafne Jaime CNP Comments: IV 2 gramsright [id number] guagetolerated welllot [id number] 02/12as, Dafne SILVA CNP INFUSION, NORMAL SALINE SOLUTION , On: 21-Aug-2015 Intent 1000 CC (Special Coverage Instructions Apply. See MCM: 2049) (J7030)By: Dafne Jaime CNP, CNP, Mary E Solu -Medrol Injection, 125 mg On: 21-Aug-2015 Intent (J2930)By: Dafne Jaime CNP Comments: lot [id number] 12/1824 mcgIMright gmas, SKI LIFT ATTENDANT Dafne DOUGHERTY Radiology - ChestBy: Addison DOUGHERTY, On: 20-Aug-2015 Intent Dafne Durán CNP Comments: call results to MCiesa INFUSION, NORMAL SALINE SOLUTION , On: 20-Aug-2015 Intent 250 CC ([id number])By: Dafne Jaime CNP, CNP, Mary E Rocephin Injection, 2 Gram On: 20-Aug-2015 Intent (J0696)By: Dafne Jaime CNP Comments: IV 2 gramsright [id number] guagetolerated well, no redness notedlot [id number] 01/26/18asSHIRA CNP Radha Solu -Medrol Injection, 125 mg On: 20-Aug-2015 Intent (J2930)By: Dafne Jaime CNP Comments: SOLUMEDROLlot:[id number]:ite:lt glutroute:IMdose:125mgDEMICK, LINDA DOUGHERTY Radha Aerosol Treatment ([id number])By: Slarb On: 20-Aug-2015 Intent SKI LIFT ATTENDANT, Gloria Rocephin Injection, 2 Gram On: 19-Aug-2015 Intent ([id number])By: Dafne Jaime CNP Comments: [id number] hip, IM JM, ANNELIESE DOUGHERTY Radha Solu -Medrol Injection, 125 mg On: 19-Aug-2015 Intent (J2930)By: Dafne Jaime CNP Comments: [id number]-H hip, IMDose-prefilled syringegiven by:DOUGLAS House signed LADONNA Dafne Mota Aerosol Treatment ([id number])By: Harman On: 19-Aug-2015 Intent SKI LIFT ATTENDANT, Gloria Solu -Medrol Injection, 125 mg On: 07-Jun-2015 Intent ([id number])By: Giovani Hutchins MD Comments: [id number]-W hip, IMDose-prefilled syringegiven by:ASHLY PERALES signed Rocephin Injection, 2 Gram On: 07-Jun-2015 Intent (J0696)By: Giovani Hutchins MD Comments: 2.7317617140r2 grams rocephin IV22G, 1 inchSite: existing lock flushed easily before and after and then d/c for the weekendTolerated: wellno redness or swelling, no s/s infiltrationML, SKI LIFT ATTENDANT INFUSION, NORMAL SALINE SOLUTION , On: 07-Jun-2015 Intent 250 CC ([id number])By: Giovani Hutchins MD INFUSION, NORMAL SALINE SOLUTION , On: 06-Jun-2015 Intent 250 CC ([id number])By: Giovani Hutchins MD Rocephin Injection, 2 Gram On: 06-Jun-2015 Intent (J0696)By: Giovani Hutchins MD Comments: [id number] gramsIV Therapy vrhdzhqcn34F, 1 inchSite: R ac - lock flushed nicely and left in place for tomorrowTolerated: well x 1st attemptno redness or swelling, no s/s infiltrationML, SKI LIFT ATTENDANT Solu -Medrol Injection, 125 mg On: 06-Jun-2015 Intent (J2930)By: Giovani Hutchins MD Comments: [id number] hip, IMML, SKI LIFT ATTENDANT Radiology - ChestBy: Liset HUTCHINSON, On: 06-Jun-2015 Intent Giovani Comments: Acute execerbation of COPD?PNA Aerosol Treatment (84753)By: Liset On: 06-Jun-2015 Intent Giovani HUTCHINSON Overnight Pulse OX ([id number])By: Marquise On: 03-Jun-2015 Jackie Mena DO Six Minute Walk Assessment On: 29-May-2015 Intent (77868)By: Jackie Christina DO Overnight Pulse OX ([id number])By: Marquise On: 29-May-2015 Jackie Mena DO MAMMOGRAM, SCREENING, BOTH BREAST On: 03-May-2015 Intent ([id number])By: Jackie Christina DO Six Minute Walk Assessment On: 25-Feb-2015 Intent ([id number])By: Jackie Christina DO Overnight Pulse OX ([id number])By: Marquise On: 25-Feb-2015 Jackie Mena DO BILATERAL MAMMOGRAMS ([id number])By: On: 26-Nov-2014 Intent Jackie Christina DO EKG (55616)By: Jackie Christina DO On: 26-Nov-2014 Intent Comments: ekg showed normal sinus rhythym, normal axis, no acute st/t wave changes twave inversion ant no change Solu -Medrol Injection, 125 mg On: 08-Aug-2014 Intent (J2930)By: Dafne Jaime CNP Comments: [id number], IMR hip, IMJM, CONCRETE BOOM PUMP OPERATOR Dafne DOUGHERTY Rocephin Injection, 2 Gram On: 08-Aug-2014 Intent (J0696)By: Dafne Jaime CNP Comments: 9.0433064678g7 grams IV R ac, x 1 attempt - tolerated well Alisha, SKI LIFT ATTENDANT Dafne DOUGHERTY INFUSION, NORMAL SALINE SOLUTION , On: 08-Aug-2014 Intent 250 CC (J7050)By: Dafne Jaime CNP, CNP, Mary E IV Needle placement (76676)By: On: 07-Aug-2014 Intent Dafne Jaime CNP, CNP, Mary E Comments: 22G insyte initiated on 1st attempt w/o difficulty, no s/s redness, swelling infiltration, infusing on gravity pole at 38gtts/min, dsg dry intact, catheter removed intact- tolerated well- CTyler SKI LIFT ATTENDANT Solu -Medrol Injection, 125 mg On: 07-Aug-2014 Intent (J2930)By: Dafne Jaime CNP Comments: Lot:[id number]:12/2016Dose:125mgRoute:imSite:r armGiven By:FADIA signed Dafne DOUGHERTY INFUSION, NORMAL SALINE SOLUTION , On: 07-Aug-2014 Intent 250 CC (J7050)By: Dafne Jaime CNP, CNP, Mary E Rocephin Injection, 2 Gram On: 07-Aug-2014 Intent (J0696)By: Dafne Jaime CNP Comments: lot # [id number]- 02/26/2017site-R Median antecuberoute-IVdose- 2GCTyler SKI LIFT ATTENDANT Dfane DOUGHERTY Aerosol Treatment ([id number])By: Addison On: 07-Aug-2014 Intent Dafne DOUGHERTY CNP, Mary E Comments: ipitropium- tolerated well- CTyler SKI LIFT ATTENDANT Radiology - ChestBy: Addison DOUGHERTY, On: 06-Aug-2014 Intent Dafne Durán CNP Rocephin Injection, 2 Gram On: 06-Aug-2014 Intent (J0696)By: Dafne Jaime CNP, CNP, Mary E Solu -Medrol Injection, 125 mg On: 06-Aug-2014 Intent (J2930)By: Dafne Jaime CNP, CNP, Mary E Aerosol Treatment ([id number])By: On: 31-Jul-2014 Intent Vanessa Chen MD Solu- Medrol Injection, 125mg On: 31-Jul-2014 Intent (J2930)By: Vanessa Chen MD Eprescribed prescriptions On: 31-Jul-2013 Intent (G8553)By: Ivanna Maddox Overnight Pulse OX (07808)By: Marquise On: 10-May-2013 Intent Jackie JHAVERI Spirometry ([id number])By: Marquise JHAEVRI, On: 02-May-2013 Intent Jackie Rondon Comments: good effort cure mild obst EKG (74782)By: Ivanna Maddox On: 02-May-2013 Intent Comments: ekg showed normal sinus rhythym, normal axis, no acute st/t wave changes no change in twave inversion ant Six Minute Walk Assessment On: 02-May-2013 Intent ([id number])By: Jackie Christina DO Overnight Pulse OX (22075)By: Marquise On: 02-May-2013 Jackie Mena DO Eprescribed prescriptions On: 02-May-2013 Intent (G8553)By: Ivanna Maddox MAMMOGRAM, SCREENING, BOTH BREASTS On: 18-Apr-2013 Intent ([id number])By: Jackie Christina DO Clinical Breast Examination On: 18-Apr-2013 Intent (G0101)By: Ivanna Maddox Solu- Medrol Injection, 125mg On: 26-Oct-2012 Intent (J2930)By: Jackie Christina DO Comments: Lot #[id number]-R hip, IMDose- prefilled syringegiven by:VANESA House signed Aerosol Treatment (74304)By: Marquise On: 26-Oct-2012 Jackie Mena DO Eprescribed prescriptions On: 26-Oct-2012 Intent (G8553)By: Ivanna Maddox Pulse Oximetry (36793)By: Tan On: 26-Oct-2012 Rajesh Goncalves Comments: 98% Spirometry (70268)By: Abi JHAVERI On: 06-Sep-2012 Rajesh Christian Comments: mild restrictive Aerosol Treatment (30630)By: Abi On: 06-Sep-2012 Anahi Mena DO Comments: done pt tolerated well. Albuterol 0.83%-- better a/e no wheeze Solu- Medrol Injection, 125mg On: 06-Sep-2012 Intent (J2930)By: Anahi Alex DO Comments: 2ml given im lt hip lot [id number] exp 04/11 Eprescribed prescriptions On: 06-Sep-2012 Intent (G8553)By: Anahi Alex DO Pulse Oximetry (98591)By: Abi On: 06-Sep-2012 Anahi Mena DO Eprescribed prescriptions On: 22-Aug-2012 Intent (G8553)By: Ivanna Maddox Overnight Pulse OX (53493)By: Marquise On: 03-May-2012 Jackie Mena DO Comments: Patient demonstrates understanding of how to operate macine. Alisha. Eprescribed prescriptions On: 27-Apr-2012 Intent (G8553)By: Ivanna Maddox Six Minute Walk Assessment On: 01-Apr-2012 Intent (05795)By: Virgen Real LPN PNEUM VAC ADLT/IMUMNOSPR, SBC/INTRM On: 18-Mar-2012 Intent ([id number])By: Jackie Christina DO Comments: Lot:[id number]:08-10-13Dose:0.5 mLRoute: Site:[facility] By:FADIA signed PFT - CompleteBy: Jackie Christina DO On: 18-Mar-2012 Intent Six Minute Walk Assessment On: 18-Mar-2012 Intent (60170)By: Jackie Christina DO Overnight Pulse OX (86095)By: Marquise On: 18-Mar-2012 Jackie Mena DO IMMUNIZ ADMNIN, 1 VAC, SNGL/COMBO On: 18-Mar-2012 Intent (53421)By: Jackie Christina DO DXA, BONE DENSITY, AXIAL SKELETON On: 18-Mar-2012 Intent ([id number])By: Jackie Christina DO MAMMOGRAM, SCREENING, BOTH BREASTS On: 18-Mar-2012 Intent (16529)By: Jackie Christina DO CT - ChestBy: Jackie Christina DO On: 03-Feb-2012 Intent Solu- Medrol Injection, 125mg On: 30-Sep-2011 Intent (J2930)By: Jackie Christina DO Comments: Lot #[id number]-right [id number] by: Tiny Cox, SKI LIFT ATTENDANT Aerosol Treatment (35412)By: Marquise On: 30-Sep-2011 Jackie Mena DO Pulse Oximetry (99475)By: Tan On: 30-Sep-2011 Intent Ivanna Comments: 97% Solu -Medrol Injection, 125 mg On: 25-Sep-2011 Intent (J2930)By: Addison DOUGHERTY, Dafne Acevedoa LADONNA, Radha Pulse Oximetry ([id number])By: Addison On: 25-Sep-2011 Intent FURNITURE UPHOLSTERER APPRENTICE, Radha Tgezraa FURNITURE UPHOLSTERER APPRENTICE, Radha FLU VAC, SPLIT, >3 YEARS, INTRAMUSC On: 01-Jul-2011 Intent (62293)By: Ivanna Maddox Comments: work MAMMOGRAM, SCREENING, BOTH BREASTS On: 31-Mar-2011 Intent (89748)By: Jackie Christina DO Solu -Medrol Injection, 125 mg On: 31-Mar-2011 Intent (J2930)By: Jackie Christina DO Eprescribed prescriptions On: 31-Mar-2011 Intent (G8553)By: Jackie Christina DO Solu- Medrol Injection, 125mg On: 16-Dec-2010 Intent (J2930)By: Jackie Christina DO Comments: lot # [id number]- [id number]-HBFITAjeueu-SQgodb- 2ML tolerated well Lenny SKI LIFT ATTENDANT Aerosol Treatment (62972)By: Marquise On: 16-Dec-2010 Intent Jackie JHAVERI Comments: tolerated well Pulse Oximetry ([id number])By: Marquise JHAVERI On: 16-Dec-2010 Intent Jackie Rondon Comments: 96% on room air Eprescribed prescriptions On: 16-Dec-2010 Intent (G8553)By: Jackie Christina DO Pulse Oximetry (32612)By: Tan On: 15-Jul-2010 Intent Ivanna Comments: 96% TD Injection , IM (19873)By: Marquise On: 04-Jul-2010 Intent Jackie JHAVERI Comments: Lot #[id number]/12Site-R DltdDose 0.5mlgiven by:UDAY EKG (54628)By: Ivanna Maddox On: 04-Jul-2010 Intent Radiology - Lumbar SpineBy: Addison On: 12-May-2010 Intent Dafne DOUGHERTY CNP, Dafne Mota MAMMOGRAM, SCREENING, BOTH BREASTS On: 19-Nov-2009 Intent ([id number])By: Jer Christina DOa A MAMMOGRAM, SCREENING, BOTH BREASTS On: 07-May-2009 Intent (29765)By: Marquise JHAVERI Jackie A EKG (22936)By: Ivanna Maddox On: 07-May-2009 Intent Comments: ekg showed normal sinus rhythym, normal axis, no acute st/t wave changes Aerosol Treatment (43713)By: On: 22-Apr-2009 Intent Ivanna Aly Comments: post aerosol tx, pt states i can breath a whole lot better Radiology - Chest- PA and LatBy: On: 19-Apr-2009 Intent Anahi Alex DO Pulse Oximetry (14548)By: Addison On: 04-Apr-2009 Intent Dafne DOUGHERTY CNP, Mary E Aerosol Treatment (07086)By: Marquise On: 21-Sep-[address] - ChestBy: Jackie Christina DO A On: 21-Sep-2008 Intent Comments: please also look at right upper quadrant- do stat and call wet read Pulse Oximetry (45173)By: Tan On: 21-Sep-2008 Intent Ivanna Comments: 97% Radiology - Lumbar SpineBy: Marquise On: 14-Jun-2008 Intent DO Jackie A Comments: bone density suggest possible compression at l5 Ultrasound - AortaBy: Marquise JHAVERI, On: 24-Apr-2008 Intent Jackie A Holter Moniter (88401)By: Marquise JHAVERI, On: 24-Apr-2008 Intent Jackie A EKG (90604)By: Jackie Christina DO A On: 24-Apr-2008 Intent Comments: ekg showed normal sinus rhythym, normal axis, no acute st/t wave changes negative precordial t waves == no change DXA, BONE DENSITY, AXIAL SKELETON On: 24-Apr-2008 Intent (36796)By: Jackie Christina DO INFUSION, NORMAL SALINE SOLUTION , On: 09-Nov-2007 Intent 1000CC (Special Coverage Instructions Apply. See MCM: 2049) (J7050)By: Anahi Alex DO IV Needle placement (53333)By: On: 09-Nov-2007 Intent Anahi Alex DO Comments: PLACED 22 G R ANTECUBITAL - PT DENY WELLGOOD RETURN IV Infusion (90025)By: Abi JHAVERI, On: 09-Nov-2007 Intent Anahi Nuclear Stress Test/Stress On: 17-Oct-2007 Intent SPECT/AdenosineBy: Jackie Christina DO Nuclear Stress Test/Stress On: 18-Jul-2007 Intent SPECT/AdenosineBy: Jackie Christina DO EKG (06664)By: Jackie Christina DO On: 18-Jul-2007 Intent Comments: ekg showed normal sinus rhythym, normal axis, no acute st/t wave changes has neg twaves on precordium but are unchanged Pneumovax (80423)By: Marquise JHAVERI, On: 11-Apr-2007 Intent Jackie Rondon EKG (15312)By: Anahi Alex DO On: 19-Jan-2007 Intent Comments: NSR NONSPECIFIC CHANGES-- Pulse Oximetry (18212)By: Abi On: 24-Sep-2006 Anahi Mena DO Comments: 98% RA Aerosol Treatment (25174)By: Abi On: 24-Sep-2006 Anahi Mena DO Comments: AFTER AEROSOL STILL RHONCHOROUS AND WHEEZY THROUGHOUT BUT MORE AIR EXCHANGE AND PT FEEL IT HELPS Solu- Medrol Injection, 125mg On: 24-Sep-2006 Intent (J2930)By: Aanhi Alex DO Rocephin Injection, 2 Gram On: 24-Sep-2006 Intent (J0696)By: Anahi Alex DO Comments: IM Solu- Medrol Injection, 125mg On: 23-Sep-2006 Intent (J2930)By: Anahi Alex DO Comments: Lot #: [id number] date: 04/05Amount given: 125 mg/2 mlRoute: IMSite given: Left glutealGiven by: Alcon Arrieta LPN Radiology - Chest- PA and LatBy: On: 23-Sep-2006 Intent Anahi Alex DO Aerosol Treatment (30643)By: Abi On: 23-Sep-2006 Intent Anahi JHAVERI Comments: after aerosol- diffuse wheeze and rhonchi lil softer-- more air exchange though Pulse Oximetry (40389)By: Armond RN, On: 23-Sep-2006 Intent Karen Comments: 98% PNEUM VAC ADLT/IMUMNOSPR, SBC/INTRM On: 08-Jul-2006 Intent (68053)By: MARKIE Hayden IMMUNIZ ADMNIN, 1 VAC, SNGL/COMBO On: 08-Jul-2006 Intent (63667)By: MARKIE Hayden Planned Medications INFUSION, NORMAL SALINE SOLUTION , 1000 CC Ordered: 24-Jan-2018 Pending Ciesa FURNITURE UPHOLSTERER APPRENTICE, Radha Ciesa FURNITURE UPHOLSTERER APPRENTICE, Radha INFUSION, NORMAL SALINE SOLUTION , 1000 CC Ordered: 21-Aug-2015 Pending Ciesa FURNITURE UPHOLSTERER APPRENTICE, Radha Ciesa FURNITURE UPHOLSTERER APPRENTICE, Radha INFUSION, NORMAL SALINE SOLUTION , 250 CC Ordered: 20-Aug-2015 Pending Ciesa FURNITURE UPHOLSTERER APPRENTICE, Radha Ciesa FURNITURE UPHOLSTERER APPRENTICE, Radha INFUSION, NORMAL SALINE SOLUTION , 250 CC Ordered: 07-Jun-2015 Pending Liset HUTCHINSON Giovani INFUSION, NORMAL SALINE SOLUTION , 250 CC Ordered: 08-Aug-2014 Pending Ciesa FURNITURE UPHOLSTERER APPRENTICE, Radha Ciesa FURNITURE UPHOLSTERER APPRENTICE, Radha INFUSION, NORMAL SALINE SOLUTION , 250 CC Ordered: 07-Aug-2014 Pending Ciesa FURNITURE UPHOLSTERER APPRENTICE, Radha Ciesa FURNITURE UPHOLSTERER APPRENTICE, Radha INFUSION, NORMAL SALINE SOLUTION , 250 CC Ordered: 06-Jun-2015 Pending Giovani Hutchins MD INJECTION, CEFTRIAXONE SODIUM, PER 250 MG Ordered: 21-Aug-2015 Pending Ciesa FURNITURE UPHOLSTERER APPRENTICE, Radha Ciesa FURNITURE UPHOLSTERER APPRENTICE, Radha INJECTION, CEFTRIAXONE SODIUM, PER 250 MG Ordered: 07-Jun-2015 Pending Giovani Hutchins MD INJECTION, CEFTRIAXONE SODIUM, PER 250 MG Ordered: 06-Jun-2015 Pending Giovani Hutchins MD INJECTION, CEFTRIAXONE SODIUM, PER 250 MG Ordered: 19-Aug-2015 Pending Ciesa FURNITURE UPHOLSTERER APPRENTICE, Radha Ciesa FURNITURE UPHOLSTERER APPRENTICE, Radha INJECTION, CEFTRIAXONE SODIUM, PER 250 MG Ordered: 08-Aug-2014 Pending Ciesa FURNITURE UPHOLSTERER APPRENTICE, Radha Ciesa FURNITURE UPHOLSTERER APPRENTICE, Radha INJECTION, CEFTRIAXONE SODIUM, PER 250 MG Ordered: 20-Aug-2015 Pending Curtisa FURNITURE UPHOLSTERER APPRENTICEDafneesa FURNITURE UPHOLSTERER APPRENTICE, Radha INJECTION, CEFTRIAXONE SODIUM, PER 250 MG Ordered: 07-Aug-2014 Pending Curtisa FURNITURE UPHOLSTERER APPRENTICE, Dafne Acevedoa FURNITURE UPHOLSTERER APPRENTICE, Radha INJECTION, CEFTRIAXONE SODIUM, PER 250 MG Ordered: 06-Aug-2014 Pending Tgesa FURNITURE UPHOLSTERER APPRENTICE, Dafne Masesa FURNITURE UPHOLSTERER APPRENTICE, Radha INJECTION, CEFTRIAXONE SODIUM, PER 250 MG Ordered: 18-Nov-2016 Pending Curtisa FURNITURE UPHOLSTERER APPRENTICE, Dafne Acevedoa FURNITURE UPHOLSTERER APPRENTICE, Radha INJECTION, KETOROLAC TROMETHAMINE, PER 15 MG Ordered: 24-Mar-2017 Pending Tgesa FURNITURE UPHOLSTERER APPRENTICE, Dafne Mota Ciesa FURNITURE UPHOLSTERER APPRENTICE, Radha INJECTION, KETOROLAC TROMETHAMINE, PER 15 MG Ordered: 07-Apr-2017 Pending Curtisa FURNITURE UPHOLSTERER APPRENTICE, Dafne Acevedoa FURNITURE UPHOLSTERER APPRENTICE, Radha INJECTION, KETOROLAC TROMETHAMINE, PER 15 MG Ordered: 12-Jul-2017 Pending Curtisa FURNITURE UPHOLSTERER APPRENTICEDafnea FURNITURE UPHOLSTERER APPRENTICE, Radha INJECTION, METHYLPREDNISOLONE SODIUM SUCCINATE, UP TO 125 MG Ordered: 18-Nov-2016 Pending Curtisa FURNITURE UPHOLSTERER APPRENTICEDafnea FURNITURE UPHOLSTERER APPRENTICE, Radha INJECTION, METHYLPREDNISOLONE SODIUM SUCCINATE, UP TO 125 MG Ordered: 31-Mar-2011 Pending Fast DO, Jackie A INJECTION, METHYLPREDNISOLONE SODIUM SUCCINATE, UP TO 125 MG Ordered: 21-Aug-2015 Pending Curtisa Dafne DOUGHERTYa FURNITURE UPHOLSTERER APPRENTICE, Radha INJECTION, METHYLPREDNISOLONE SODIUM SUCCINATE, UP TO 125 MG Ordered: 25-Sep-2011 Pending Curtisa FURNITURE UPHOLSTERER APPRENTICEDafnea FURNITURE UPHOLSTERER APPRENTICE, Radha INJECTION, METHYLPREDNISOLONE SODIUM SUCCINATE, UP TO 125 MG Ordered: 06-Aug-2014 Pending Curtisa FURNITURE UPHOLSTERER APPRENTICEDafnea FURNITURE UPHOLSTERER APPRENTICE, Radha INJECTION, METHYLPREDNISOLONE SODIUM SUCCINATE, UP TO 125 MG Ordered: 07-Jun-2015 Pending Liset HUTCHINSON, Giovani INJECTION, METHYLPREDNISOLONE SODIUM SUCCINATE, UP TO 125 MG Ordered: 19-Aug-2015 Pending Tgesa FURNITURE UPHOLSTERER APPRENTICE, Dafne Mota Ciezraa FURNITURE UPHOLSTERER APPRENTICE, Radha INJECTION, METHYLPREDNISOLONE SODIUM SUCCINATE, UP TO 125 MG Ordered: 31-Jul-2014 Pending Kita HUTCHINSON, Vanessa Durham INJECTION, METHYLPREDNISOLONE SODIUM SUCCINATE, UP TO 125 MG Ordered: 30-Sep-2011 Pending Fast DO, Jackie A INJECTION, METHYLPREDNISOLONE SODIUM SUCCINATE, UP TO 125 MG Ordered: 06-Jun-2015 Pending Giovani Hutchins MD INJECTION, METHYLPREDNISOLONE SODIUM SUCCINATE, UP TO 125 MG Ordered: 08-Aug-2014 Pending Ciezraa FURNITURE UPHOLSTERER APPRENTICE Radha Ciezraa FURNITURE UPHOLSTERER APPRENTICE, Radha INJECTION, METHYLPREDNISOLONE SODIUM SUCCINATE, UP TO 125 MG Ordered: 06-Sep-2012 Pending Ailin Alex DOhleen INJECTION, METHYLPREDNISOLONE SODIUM SUCCINATE, UP TO 125 MG Ordered: 07-Aug-2014 Pending Ciesa FURNITURE UPHOLSTERER APPRENTICE, Radha Ciesa FURNITURE UPHOLSTERER APPRENTICE, Radha INJECTION, METHYLPREDNISOLONE SODIUM SUCCINATE, UP TO 125 MG Ordered: 26-Oct-2012 Pending Fast DO, Jackie A INJECTION, METHYLPREDNISOLONE SODIUM SUCCINATE, UP TO 125 MG Ordered: 20-Aug-2015 Pending Ciesa FURNITURE UPHOLSTERER APPRENTICE, Dafne Mota Ciezraa FURNITURE UPHOLSTERER APPRENTICE, Radha INJECTION, METHYLPREDNISOLONE SODIUM SUCCINATE, UP TO 125 MG Ordered: 16-Dec-2010 Pending Fast DO, Jackie A Instructions Name Dates Details Nonsmoker [...] BLD CNT, COMPL CBC W/AUTO DIFF WBC (33085) Indication: Benign essential hypertension Other and unspecified hyperlipidemia : DISCONTINUED - LIPID PANEL (50694) Indication: Other and unspecified hyperlipidemia Hypothyroidism : DISCONTINUED - TSH (31628) Indication: Hypothyroidism Other and unspecified hyperlipidemia : DISCONTINUED - LIPID PANEL (37851) Indication: Other and unspecified hyperlipidemia DIABETES MELLITUS WITHOUT MENTION OF COMPLICATION; TYPE II OR UNSPECIFIED TYPE, NOT STATED UNCONTROLLED : DISCONTINUED - MICROALBUMIN: CREATININE RATIO (41087) AND (19516) Indication: DIABETES MELLITUS WITHOUT MENTION OF COMPLICATION; TYPE II OR UNSPECIFIED TYPE, NOT STATED UNCONTROLLED DIABETES MELLITUS WITHOUT MENTION OF COMPLICATION; TYPE II OR UNSPECIFIED TYPE, NOT STATED UNCONTROLLED : DISCONTINUED - METABOLIC PANEL, COMPREHENSIVE ([id number]) Indication: DIABETES MELLITUS WITHOUT MENTION OF COMPLICATION; TYPE II OR UNSPECIFIED TYPE, NOT STATED UNCONTROLLED DIABETES MELLITUS WITHOUT MENTION OF COMPLICATION; TYPE II OR UNSPECIFIED TYPE, NOT STATED UNCONTROLLED : DISCONTINUED - CBC WITH MANUAL DIFF ([id number]) Indication: DIABETES MELLITUS WITHOUT MENTION OF COMPLICATION; TYPE II OR UNSPECIFIED TYPE, NOT STATED UNCONTROLLED DIABETES MELLITUS WITHOUT MENTION OF COMPLICATION; TYPE II OR UNSPECIFIED TYPE, NOT STATED UNCONTROLLED : DISCONTINUED - METABOLIC PANEL, COMPREHENSIVE ([id number]) Indication: DIABETES MELLITUS WITHOUT MENTION OF COMPLICATION; [...] mellitus, uncontrolled : DISCONTINUED - LIPID PANEL ([id number]) Indication: Type 2 or unspecified type diabetes [...] : Patient Instructions Indication: Meralgia paresthetica Encounters Office Visit On: 02-May-2018 11:33 Encounter Reason: [...] The symptoms occur con End: 23-Dec-2017 11:46 caio. The patient describes this as unchanged. Note [...] 22:52 effects (I saw on TV that carolina could be linked to pancreatic cancer and [...] back on talked about other o[ptions than carolina but she chooses to stay onEncounter Diagnosis: [...] ,supplemental vitamins and low salt diet. The ut dical issues the patient is following up [...] for Flu like symptoms: Son diagnosed with [id number] Diagnosis: BRONCHITIS, NOT SPECIFIED ACUTE OR CHRONIC [...] he wants her to do exercise at [employer] and has her set up for activiity [...] : (180's). 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
--- OUTSIDE RECORDS SUMMARY | 2018-09-20 11:54 | XMS RPT_ITS | Continuity of Care Document ---
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 CRESTOR, 10MG (Oral Tablet) 1 tab Tablet [...] : 09-Dec-2017 End : 19-Jan-2018 Inactive Pen [place] 31G X 6 MM Miscellaneous uad Misc [...] 24-Aug-2011 End : 03-Feb-2012 Inactive VITAMIN D, 30496IQSL (Oral Capsule) 1 (one) Capsule q week [...] JHAVERI Anahi End : 12-Mar-2006 Discontinued Ergocalciferol 48624 UNIT Oral Capsule 1 (one) Capsule Capsule [...] Quantity: 90 {QS} Refills: 3 Ordered:13-May-2016 Slarb INTERNET WEBMASTER, Gloria Start : 13-Feb-2016 End : 13-May-2016 Discontinued IRON, 345MG (PO Cap) for 0 days Refills: 0 Ordered:20-Oct-2006 Belen Pickett End : 20-Oct-2006 Discontinued LEVAQUIN, 500MG (Oral Tablet) 1 Tablet daily for 0 days Quantity: 14 {Tablet} Refills: 0 Ordered:18-Mar-2012 Iavnna Maddox Start : 18-Mar-2012 End : 18-Mar-2012 [...] without Contrast Result: Comments: See Note; NOTES: [facility] Imaging Services [address] [place] [address] Chest without Contrast MR#: [id number] Acct: [id number] Name: IMANI VINSON Rep #: [id number] : 1950 F 67 From: Marine Tolliver MD PCP: Dafne Jaime NP Status: REG CLI Study: Chest without Contrast Date of Exam: 05/06/18 Exam# [id number] Ordering Dr: Dafne Jaime CAPACITOR PACK PRESS OPERATOR-C STUDY: LOW DOSE CT LUNG CANCER SCREENING REASON FOR EXAM: Female, 67 years old. OBSTRUCTIVE PULMONARY DISEASE, PT STATED HX OF SMOKING UP TO 4 PACKS PER DAY X40+ years, QUIT [id number] AGO, COPD, ASTHMA RADIATION DOSAG E (If [...] as category 2, and individuals returned to [facility] in 12 months. Category 4X: Category 3 [...] Tel , Service support , CC: Dafne Jiame NP Property Inspector: Signed 05-May-2018 Spirometry PFT Testing Result: Comments: See Note; NOTES: [facility] Pulmonary Services/Neurology [address] [place] [address] MR#: [id number] Acct: [id number] Name: IMANI VINSON Rep #: [id number] : 0 1950 67 From: Jordy Lion DO Referring Dr: Dafne Jaime NP Status: REG CLI Ordering Dr: Date: Location: [facility] Sex: F C Spirometry PFT Testing Spirometry [...] Dictated: 05/05/18 1257 Date Transcribed: 05/05/18 1257 Property Inspector: DB Signed 25-Jan-2018 12 Lead Electrocardiogram Result: Comments: See Note; NOTES: [facility] Cardiovascular Services [address] [place] [address] 12 Lead EKG 01/22/184 MR#: [id number] Acct: [id number] Name: IMANI VINSON Re p #: [id number] : 1950 67 From: Ramiro Moreno MD [...] ECG Confirmed by RAMIRO MONSON MD ([id number]), society editor RUBI VILLATORO ([id number]) on 01/25/2018 3:09:19 PM Referred By: Confirmed By:RAMIRO MORENO MD 01/25/18 1509 Date Ramiro Moreno MD CC: Dafne Jaime NP; Tyson Hernandez DO Signed 24-Jan-2018 Emergency Department Summary Result: Comments: See Note; NOTES: [facility] Medical Records Department [address] [place] [address] Emergency Department Summary 01/22/18 2318 MR#: [id number] Acct: [id number] Name: IMANI VINSON Rep #: [id number] : 1950 67 From: Tyson Hernandez DO [...] 2. Hypertension This note was generated with [employer] dictation software. It may contain incorrect words, [...] your Primary Care Provider. Call [facility] ([phone]) or report to the closest Emergency Room. Call 911 if necessary. 01/24/18 0026 <Electronically signed by Tyson Hernandez DO> Date _ Tyson Hernandez DO Cosigner Signature (If Indicated): Date CC: Dafne Jaime CAPACITOR PACK PRESS OPERATOR 30-Dec-2017 12 Lead Electrocardiogram Result: Comments: See Note; NOTES: [facility] Cardiovascular Services [address] [place] [address] 12 Lead EKG 12/25/17 1326 MR#: [id number] Acct: [id number] Name: IMANI VINSON p #: [id number] : 1950 67 From: Ramiro Moreno MD [...] Confirme d by RAMIRO MORENO MD ([id number]), society editor RUBI VILLATORO (56) on 12/30/2017 3:06:27 PM Referred By: Yoselin Oconnell Confirmed By:RAMIRO MORENO MD 12/30/17 1506 Date _ Ramiro Moreno MD CC: Dafne Jaime NP; Ivanna Puri MD Signed 25-Dec-2017 Emergency Department Summary Result: Comments: See Note; NOTES: [facility] Medical Records Department [address] [place] [address] Emergency Department Summary 12/25/17 1538 MR#: [id number] Acct: [id number] Name: IMANI VINSON Rep #: [id number] : 1950 67 From: Ivanna Puri MD [...] Cephalgia, improved This note was generated with [employer] dictation software. It may contain inco rrect [...] contact your Primary Ca re Provider. Call [facility] ([phone]) or report to the closest Emergency Room. Call 911 if necessary. 12/25/17 1636 <Electronically signed by Ivanna Puri MD> Date Ivanna Puri MD Cosigner Signature (If Indicated): Date CC: Dafne Jaime NP 25-Dec-2017 Discharge Instruction Result: Comments: See Note; NOTES: [facility] Medical Records Department [address] [place] [address] Discharge Instruction 12/25/17 1542 MR#: [id number] Acct: [id number] Name: IMANI VINSON Rep #: [id number] : 1950 67 From: Ivanna Puri MD [...] your Primary Care Provider. Call [facility] ([phone]) or report to the closest Emergency Room. Call 911 if necessary. 12/25/17 1543 <Electronically signed by Ivanna Puri MD> D ate Ivanna Puri MD Cosigner Signature (If Indicated): Date CC: Dafne Jaime NP 25-Dec-2017 Chest 1 View (Portable) Result: Comments: See Note; NOTES: [facility] Imaging Services [address] [place] [address] Chest 1 View (Portable) MR#: [id number] Acct: [id number] Name: IMANI VINSON Rep #: [id number] : 1950 F 67 From: Walter Corbin MD PCP: Dafne Jaime NP Status: REG ER Study: Chest 1 View (Portable) Date of Exam: 12/25/17 Exam# [id number] Ordering Dr: Ivanna Puri MD STUDY: X-RAY [...] at 14:22 EDT Tel , Service support [phone], RAD/Chest 1 View (Portable) CC: Dafne Jaime NP; Ivanna Puri MD Property Inspector: Signed 23-Dec-2017 Abdomen/Pelvis without Cont Result: Comments: See Note; NOTES: [facility] Imaging Services [address] [place] [address] Abdomen/Pelvis without Cont MR#: [id number] Acct: [id number] Name: IMANI VINSON Naveen Rep #: [id number] : 1950 F 67 From: Leobardo Mckenzie MD PCP: Dafne Jaime NP Status: REG CLI Study: Abdomen/Pelvis without Cont Date of Exam: 12/23/17 Exam# [id number] Ordering Dr: Yoselin Oconnell CAPACITOR PACK PRESS OPERATOR-C STUDY: CT ABDOMEN AND PELVIS WITHOUT CONTRAST [...] Leobardo Mckenzie MD at 12:50 EDT Tel [phone], Service support , Fax CC: Dafne Jaime CAPACITOR PACK PRESS OPERATOR; MARCO ANTONIO Oconnell Property Inspector: Signed 12-Feb-2017 Chest without Contrast Result: Comments: See Note; NOTES: [facility] Imaging Services [address] [place] [address] Chest without Contrast MR#: [id number] Acct: [id number] Name: IMANI VINSON Rep #: [id number] : 1950 F 66 From: Ace Olivia DO PCP: Dafne Jaime Status: REG CLI Study: Chest without Contrast Date of Exam: 02/12/17 Exam# [id number] Ordering Dr: Rogelio Granado MD STUDY: CT [...] Ace Olivia DO at 11:21 EDT Tel [phone], [employer] e support , CC: Dafne Jaime; Rogelio Granado MD Property Inspector: Signed 19-Jan-2017 Chest PA and Lateral Result: Comments: See Note; NOTES: [facility] Imaging Services [address] [place] [address] Verdana 4d Chest PA and Lateral MR#: [id number] Acct: [id number] Name: IMANI VINSON Rep #: [id number] : 1950 F 66 From: Leobardo Mckenzie MD PCP: Dafne Jaime Status: REG CLI Study: Chest PA and Lateral Date of Exam: 01/19/17 Exam# [id number] Ordering Dr: Rogelio Granado MD ST UDY: [...] Leobardo Mckenzie MD at 12:43 EDT Tel [phone], Service support [phone], CC: Dafne Jaime; Rogelio Granado MD Property Inspector: Signed 17-Oct-2015 Spirometry (75020) Result: 20-Aug-2015 Chest PA and Lateral Result: Comments: See Note; NOTES: [facility] Imaging Services [address] [place] [address] Verdana 4d Chest PA and Lateral MR#: [id number] Acct: [id number] Name: IMANI FRASER Rep #: [id number] : 1950 F 64 From: Leobardo Mckenzie MD PCP: Jackie Christina DO Status: REG CLI Study: Chest PA and Lateral Date of Exam: 08/20/15 Exam# [id number] Ordering Dr: Dafne Jaime STUDY: X-RAY CHEST [...] Leobardo Mckenzie MD at 13:08 EST Tel [phone], Service support [phone] , RAD/Chest PA and Lateral IMPRESSION: Hyperinflation. No acute abnormality is seen. Electronically Signed: Leobardo Mckenzie MD at 13:08 EST Tel [phone], Service support [phone], CC: Dafne Jaime; Jackie Christina DO Property Inspector: Signed 06-Jun-2015 Chest PA and Lateral Result: Comments: See Note; NOTES: [facility] Imaging Services [address] [place] [address] Verdana 4d Chest PA and Lateral MR#: [id number] Acct: [id number] Name: IMANI FRASER Rep #: [id number] : 1950 F 64 From: Leobardo Mckenzie MD PCP: Jackie Christina DO Status: REG CLI Study: Chest PA and Lateral Date of Exam: 06/06/15 Exam# [id number] Ordering Dr: Giovani Hutchins STUDY: X-RAY CHEST [...] Leobardo Mckenzie MD at 14:52 EST Tel [phone], Service support [phone], 0056 RAD/Chest PA and Lateral IMPRESSION: Hyp erinflation. Electronically Signed: Leobardo Mckenzie MD at 14:52 EST Tel [phone], Service support [phone], CC: Jackie Christina DO; Nga Hutchins Property Inspector: Signed 06-Aug-2014 Chest PA and Lateral Result: Comments: See Note; NOTES: [facility] Imaging Services [address] [place] [address] Radiology Report MR#: [id number] Acct: [id number] Name: IMANI VINSON Rep #: [id number] : 1950 F 63 From: Leobardo Mckenzie MD PCP: Jackie Christina DO Status: REG CLI Study: Chest PA and Lateral Date of Exam: 08/06/14 Exam# [id number] Ordering Dr: Dafne Jaime STUDY: X-RAY CHEST [...] Leobardo Mckenzie MD at 13:03 EST Tel [phone], Service support [phone], CC: Dafne Christina DO Property Inspector: Signed 05-May-2013 Bilat Scrn Digital & CAD Result: Comments: See Note; NOTES: [facility] Imaging Services [address] [place] [address] Breast Imaging Report MR#: [id number] Acct: [id number] Name: VINSONIMANI HAYWOOD Rep #: [id number] : 1950 F 62 From: Leobardo Mckenzie MD PCP: Status: PRE CLI Exam# [id number] Ordering Dr: Jackie Christina DO MAMMOGRAPHY - [...] 05, 2013 at 2:48:1 1 PM EST [phone] Electronically Signed GP/GP If you are the referring physician and would like to consult with the radiologist who provided this interpretation, please contact Leobardo thompson M.D. at [phone]. If this radiologist is unavailable, you will be directed to another radiologist to assist. If you are a patient with a question regarding this report, please contact you r referring physician directly. Professional Interpretation Provided By: [employer], Phone , These documents contain legally protected [...] of these documents. CC: Jackie Christina DO Property Inspector: Signed Immunization Name Dates Details Pneumococcal (2 [...] kg/m2 Body Surface Area Calculated 2.25 m2 53-Ica-173084:32 Temperature 97.4 f Comments: Method: Temporal Pulse [...] 0.00 cm Results Date Description Value Details 41-Evw-018501:25 PARATHORMONE (68692) Comments: PATIENT NOT FASTINGPERFORMED BY: [employer] [facility] [id number] PTH, Intact 36 pg/mL (Normal) Range: 15-65 2-Wsm-117793:37 Lipid Panel (40251) Comments: PATIENT WAS FASTINGPERFORMED BY: [employer] [facility] [id number] LDL/HDL Ratio 2.0 {ratio} (Normal) Range: 0.0-3.2 Comments: LDL/HDL Ratio Men Women 1/2 Avg.Risk 1.0 1.5 Av g.Risk 3.6 3.2 2X Avg.Risk 6.2 5.0 3X Avg.Risk 8.0 6.1 LDL Cholesterol Calc 94 mg/dL (Normal) Range: 0-99 VLDL Cholesterol Edgardo 37 mg/dL (Normal) Range: 5-40 HDL Cholesterol 46 mg/dL (Normal) Triglycerides 186 mg/dL (Abnormal) Range: 0-149 Cholesterol, Total 177 mg/dL (Normal) Range: 100-199 6-Gti-081702:37 MICROALBUMIN: CREATININE RATIO Comments: PATIENT WAS FASTINGPERFORMED BY: [facility] [facility] [id number] (38540) AND (17772) Alb/Creat Ratio 5.9 {mg/g_creat} (Normal) Range: 0.0-30.0 Comments: Normal: 0.0 - 30.0 Albuminuria: 31.0 - 300.0 Clinical albuminuria: >300.0 Albumin, Urine 7.5 ug/mL (Normal) Creatinine, Urine 127.1 mg/dL (Normal) 4-Ztg-793138:37 TSH (75134) Comments: PATIENT WAS FASTINGPERFORMED BY: [facility] [facility] [id number] TSH 1.970 {uIU/mL} (Normal) Range: 0.450-4.500 9-Bgp-082341:37 CBC, Platelets & Auto Diff Comments: PATIENT WAS FASTINGPERFORMED BY: [facility] [facility] [id number] (84980) Immature Grans (Abs) 0.0 {x10E3/uL} (Normal) Range: [...] 3.77-5.28 WBC 7.1 {x10E3/uL} (Normal) Range: 3.4-10.8 0-Hll-600462:37 Metabolic Panel, Comprehensive Comments: PATIENT WAS FASTINGPERFORMED BY: [facility]Co[facility] CenterGhtexb0195 [facility] [id number] (16716) ALT (SGPT) 14 [iU]/L (Normal) Range: 0-32 [...] 8-27 Glucose 98 mg/dL (Normal) Range: 65-99 5-Vnr-210076:50 HgA1C , Office (94534) HgA1C , Office 6.4 % (Normal) Range: 4.6 - 7.1 5-Exr-328451:50 Blood Glucose , Office (97685) Blood Glucose , Office 137 (Normal) 5-Zmy-243533:51 CALCIFEDIOL (97426) Comments: PATIENT NOT FASTINGPERFORMED BY: [facility] Wnzely[address] [place] [id number] Vitamin D, 25-Hydroxy 35.3 ng/mL (Normal) Range: 30.0-100.0 Comments: Vitamin D deficiency has been defined by the [place] ofMedicine and an Endocrine Society practice guideline as alevel of serum 25-OH vitamin D less than 20 ng/mL (1,2).The Endocrine Society went on to further define vitamin Dinsufficiency as a level between 21 and 29 ng/mL (2).1. IOM ([place] of Medicine). 2010. Dietary reference intakes for calcium and D. [place]: The National Academies Press.2. Eleni MF, Lorne MORTON, Dayron WALTON, et al. Evaluation, treatment, and prevention of vitamin D deficiency: an Endocrine Society clinical practice guideline. JCEM. 2010; 96(7):1911-30. 0-Pxl-570183:43 METANEPHRINES - URINE (70714) Comments: PATIENT NOT FASTINGPERFORMED BY: [facility]Co[facility] 874[address] [facility] [id number] Metanephrine, U,24hr 120 {ug/24_hr} (Normal) Range: 45-290 Comments: (Hypertensive) >17 years 11 months: 35 - 460 Metanephrine, Ur 60 ug/L (Normal) Normetanephr.,U,24h 404 {ug/24_hr} (Normal) Range: 82-500 Comments: (Hypertensive) >17 years 11 months: 110 - 1050 Normetanephrine, Ur 202 ug/L (Normal) 0-Fxq-145538:43 CATECHOLAMINES TOTAL, URINE Comments: PATIENT NOT FASTINGPERFORMED BY: [address] [id number] Information: [id number] (16097) Dopamine, Ur, 24hr 356 {ug/24_hr} (Normal) Range: 0-510 Dopamine, Urine 178 ug/L (Normal) Norepinephrine,U,24h 78 {ug/24_hr} (Normal) Range: 0-135 Norepinephrine, Ur 39 ug/L (Normal) Epinephrine, U, 24hr 4 {ug/24_hr} (Normal) Range: 0-20 Epinephrine, Urine 2 ug/L (Normal) 8-Ncq-379114:43 URINE VMA (98449) Comments: PATIENT NOT FASTINGPERFORMED BY: [address] [id number] VMA, Urine, 24hr 5.0 {mg/24_hr} (Normal) Range: 0.0-7.5 Comments: This test was developed and its performance characteristicsdetermined by [employer]. It has not been cleared or approvedby the Food and Drug Administration. VMA, Urine 2.5 mg/L (Normal) 01-Uju-466146:44 URINE MEHREEN CULTURE-IDENTIFICATN Comments: PERFORMED BY: [facility]vePalisades [facility] CenterJbldqm4[address] [facility] [id number] Information: SRC:UC (58662) Result 1 MUG (Normal) Comments: Mixed urogenital flora1,000 Colonies/mL Urine Culture,Comprehensive Final report (Normal) 14-Eai-095867:41 Urinalysis, Office (67555) UA - LEUKOCYTE ESTERASE Moderate (Normal) UA - NITRITE Negative (Normal) URINE UROBILINGN SUNNY TIMED Normal mg/dL (Normal) UA - PROTEIN Negative mg/dL (Normal) UA - PH 6.0 (Normal) UA - BLOOD Hemolyzed Trace (Normal) UA - SPECIFIC GRAVITY 1.020 (Normal) UA - KETONES Negative mg/dL (Normal) UA - BILIRUBIN Negative (Normal) UA - GLUCOSE Negative (Normal) 77-Ctn-710166:10 CBC & PLATELETS (AUTO) Comments: PATIENT NOT FASTINGPERFORMED BY: [facility]vePalisades Medical CenterDtetlb3091 [facility] [id number] (59755) Platelets 270 {x10E3/uL} (Normal) Range: 150-379 RDW 13.8 % (Normal) Range: 12.3-15.4 MCHC 33.7 g/dL (Normal) Range: 31.5-35.7 MCH 29.7 pg (Normal) Range: 26.6-33.0 MCV 88 fL (Normal) Range: 79-97 Hematocrit 40.1 % (Normal) Range: 34.0-46.6 Hemoglobin 13.5 g/dL (Normal) Range: 11.1-15.9 RBC 4.54 {x10E6/uL} (Normal) Range: 3.77-5.28 WBC 6.8 {x10E3/uL} (Normal) Range: 3.4-10.8 52-Kld-084127:10 RENAL FUNCTION PANEL (70984) Comments: PATIENT NOT FASTINGPERFORMED BY: [facility] [facility] [id number] Albumin 3.8 g/dL (Normal) Range: 3.6-4.8 Phosphorus [...] 8-27 Glucose 133 mg/dL (Abnormal) Range: 65-99 02-Kmr-997606:10 PARATHORMONE (51540) Comments: PATIENT NOT FASTINGPERFORMED BY: [facility] [facility] [id number] PTH, Intact 32 pg/mL (Normal) Range: 15-65 45-Atw-121060:00 Urinalysis, Complete Comments: How was Urine Obtained? DIRECTOR OF ENGINEERING TO [facility] [address] [place], [address] MUCUS, URINE 0 SEEN {/hpf} (Normal) BACTERIA [...] (Normal) CLARITY Clear (Normal) COLOR Yellow (Normal) 90-Zrt-332860:04 CBC W/Diff, Automated Comments: [facility] [address] [place], [address] PLT EST ADEQUATE (Normal) SMEAR COMMENT SCANNED [...] 4.2-5.4 WBC 9.7 K/mm3 (Normal) Range: 4.4-11.0 28-Fis-468052:04 Comprehensive Metabolic Profil Comments: [facility] [address] [place], [place], [id number] GAP 8 (Normal) Range: 5-15 CO2 26.0 [...] A.D.A. criteria.Please note revised GLUCOSE reference range lfqkyibjl23/02/2018. 90-Tyk-485274:04 Lipase Comments: [facility] [address] [place], [address] LIPASE 346 U/L (Normal) Range: 73-393 44-Qws-553128:04 Troponin-I Comments: [facility] [address] [place], [address] TROPONIN-I < 0.015 ng/mL (Normal) Comments: TROPONIN-I EXPECTED VALUES <0.045 Negative 0.045 - 0.590 Consistent with Cardiac Damage > OR = 0.600 Critical Value Not every elevated troponin is indicative of ID. T hesevalues should be used with clinical judgement in examiningthe patient's clinical picture for diagnosis. To establisha diagnosis of ID versus myocardial injury, there must be ademonstrated rise and/ or fall in the troponin values, inaddition to ischemic symptoms, EKG changes, new regionalwall motion abnormality, and/or angiographical evidence. PLEASE NOTE: REFERENCE RANGES EDITED 11/08/1712-Jan-201895-Oyw-066544:27 TSH (THYROID STIMULATING Comments: January 12; PATIENT WAS FASTINGPERFORMED BY: [employer] [facility] [id number] HORMONE) (59464) TSH 1.920 {uIU/mL} (Normal) Range: 0.450-4.500 15-Cck-637705:27 CBC & PLATELETS (AUTO) Comments: after January 12; PATIENT WAS FASTINGPERFORMED BY: [employer] [facility] [id number] Information: [id number] (45354) Platelets 288 {x10E3/uL} (Normal) Range: 150-379 RDW 13.8 % (Normal) Range: 12.3-15.4 MCHC 34.8 g/dL (Normal) Range: 31.5-35.7 MCH 30.8 pg (Normal) Range: 26.6-33.0 MCV 88 fL (Normal) Range: 79-97 Hematocrit 40.2 % (Normal) Range: 34.0-46.6 Hemoglobin 14.0 g/dL (Normal) Range: 11.1-15.9 RBC 4.55 {x10E6/uL} (Normal) Range: 3.77-5.28 WBC 6.2 {x10E3/uL} (Normal) Range: 3.4-10.8 32-Nak-775263:27 LIPID PANEL (53126) Comments: after January 12; PATIENT WAS FASTINGPERFORMED BY: SvervePalisades Medical CenterUykkbo68[address] [facility] [id number] LDL/HDL Ratio 2.1 {ratio} (Normal) Range: 0.0-3.2 Comments: LDL/HDL Ratio Men Women 1/2 Avg.Risk 1.0 1.5 Av g.Risk 3.6 3.2 2X Avg.Risk 6.2 5.0 3X Avg.Risk 8.0 6.1 LDL Cholesterol Calc 88 mg/dL (Normal) Range: 0-99 VLDL Cholesterol Edgardo 46 mg/dL (Abnormal) Range: 5-40 HDL Cholesterol 42 mg/dL (Normal) Triglycerides 230 mg/dL (Abnormal) Range: 0-149 Cholesterol, Total 176 mg/dL (Normal) Range: 100-199 85-Sut-672123:27 HGB A1C (08244) Comments: do after January 12; PATIENT WAS FASTINGPERFORMED BY: [facility] HospitalMicrobio PharmaPalisades Medical CenterKovnxp24[address] [facility] [id number] Hemoglobin A1c 7.6 % (Abnormal) Range: 4.8-5.6 Comments: . Pre-diabetes: 5.7 - 6.4 Diabetes: >6.4 Glycemic control for adults with diabetes: <7.0 45-Szt-460802:30 Basic Metabolic Profile (BMP) Comments: [facility] [address] [place], [address] GAP 8 (Normal) Range: 5-15 CO2 25.0 [...] A.D.A. criteria.Please note revised GLUCOSE reference range mehvfixun53/02/2018. 46-Bxp-830595:30 Carboxyhemoglobin Frac (CO) Comments: [facility] [address] [place], [place], [id number] COHb 2.1 % (Abnormal) Range: 0.0-1.5 Comments: * NON-SMOKER RANGE 1.6 - 5.0% * LIGHT SMOKER RANGE 5.1 - 9.0% * HEAVY SMOKER RANGE 98-Yhk-996990:30 CBC W/Diff, Automated Comments: [facility] [address]ow[address]agth[address]188 [facility] [place], [place], [address] Absolute Lymph 0.66 {X10_3/ul} (Abnormal) Range: 0.83-4.51 [...] 4.2-5.4 WBC 12.9 K/mm3 (Abnormal) Range: 4.4-11.0 56-Ghe-654092:30 Lipase Comments: [facility] [address] [place], [place], [phone] LIPASE 126 U/L (Normal) Range: 73-393 97-Cpb-540975:30 Liver Profile Comments: [facility] [address] [place], [place], [phone] D BILI 0.13 mg/dL (Normal) Range: 0.00-0.30 T BILI 0.50 mg/dL (Normal) Range: 0.20-1.00 ALT 32 U/L (Normal) Range: 13-56 ALK P 154 U/L (Abnormal) Range: 45-117 AST 25 U/L (Normal) Range: 15-37 GLOB 4.2 g/dL (Normal) Range: 2.2-4.2 ALB 3.5 g/dL (Normal) Range: 3.2-5.0 T PROT 7.7 g/dL (Normal) Range: 6.4-8.2 87-Tud-126743:30 Urinalysis, Complete Comments: Order Date: 12/25/17How was Urine Obtained? [facility] [address] [place] [address], [id number] MUCUS, URINE 0 SEEN {/hpf} (Normal) BACTERIA [...] (Abnormal) CLARITY Clear (Normal) COLOR Yellow (Normal) 46-Hio-278231:17 Urinalysis, Office (38165) UA - LEUKOCYTE ESTERASE Negative (Normal) UA - NITRITE Negative (Normal) URINE UROBILINGN SUNNY TIMED Normal mg/dL (Normal) UA - PROTEIN Negative mg/dL (Normal) UA - PH 5.0 (Normal) Comments: 5.5 UA - BLOOD Hemolyzed Trace (Normal) UA - SPECIFIC GRAVITY 1.005 (Normal) UA - KETONES Negative mg/dL (Normal) UA - BILIRUBIN Negative (Normal) UA - GLUCOSE 500 (Abnormal) 15-Mnx-503688:15 URINE MEHREEN CULTURE-SUNNY COL Comments: PATIENT NOT FASTINGPERFORMED BY: [facility] [id number] Information: SRC:UC COUNT (59569) Result 1 MUG (Normal) Comments: Mixed urogenital flora10,000-25,000 colony forming units per mL Urine Final report (Normal) Culture,Comprehensive 24-Cwa-800434:48 URINE MEHREEN CULTURE-IDENTIFICATN Comments: PATIENT NOT FASTINGPERFORMED BY: [employer] LabMicrobio Pharmarp Ykowxc8527 [facility]imoLev[facility] [id number] Information: SRC:UC (64396) Antimicrobial MIHEAD (Normal) Comments: S = Susceptible; [...] mL (Abnormal) Urine Final report Culture,Comprehensive (Abnormal) 01-Aia-603999:24 Urinalysis, Office (85541) UA - LEUKOCYTE ESTERASE Small (Normal) UA - NITRITE Negative (Normal) URINE UROBILINGN SUNNY TIMED Normal mg/dL (Normal) UA - PROTEIN Trace mg/dL (Normal) UA - PH 6 (Abnormal) UA - BLOOD Hemolyzed Large (Normal) UA - SPECIFIC GRAVITY 1.015 (Normal) UA - KETONES Negative mg/dL (Normal) UA - BILIRUBIN Negative (Normal) UA - GLUCOSE 500 (Abnormal) 31-Efa-409547:33 Blood Glucose , Office (66237) Blood Glucose , Office 159 (Normal) 10-Enj-633592:33 HgA1C , Office (62412) HgA1C , Office 7.0 % (Normal) Range: 4.6 - 7.1 98-Nmo-992931:10 CBC, Platelets & Auto Diff Comments: PATIENT WAS FASTINGPERFORMED BY: [facility] Hhzwrj6585 [facility] [id number] (60108) Immature Grans (Abs) 0.0 {x10E3/uL} (Normal) Range: [...] 3.77-5.28 WBC 7.0 {x10E3/uL} (Normal) Range: 3.4-10.8 61-Sql-759745:10 HGB A1C (50286) Comments: PATIENT WAS FASTINGPERFORMED BY: TARAS Copiny [facility] [id number] Hemoglobin A1c 7.4 % (Abnormal) Range: 4.8-5.6 Comments: . Pre-diabetes: 5.7 - 6.4 Diabetes: >6.4 Glycemic control for adults with diabetes: <7.0 :10 LIPID PANEL (98879) Comments: PATIENT WAS FASTINGPERFORMED BY: TARAS Copiny [facility] [id number] LDL/HDL Ratio 2.4 {ratio} (Normal) Range: 0.0-3.2 Comments: LDL/HDL Ratio Men Women 1/2 Avg.Risk 1.0 1.5 Av g.Risk 3.6 3.2 2X Avg.Risk 6.2 5.0 3X Avg.Risk 8.0 6.1 LDL Cholesterol Calc 107 mg/dL (Abnormal) Range: 0-99 VLDL Cholesterol Edgardo 28 mg/dL (Normal) Range: 5-40 HDL Cholesterol 45 mg/dL (Normal) Triglycerides 138 mg/dL (Normal) Range: 0-149 Cholesterol, Total 180 mg/dL (Normal) Range: 100-199 :10 Metabolic Panel, Comprehensive Comments: PATIENT WAS FASTINGPERFORMED BY: [employer] [facility] [id number] (21675) ALT (SGPT) 15 [iU]/L (Normal) Range: 0-32 [...] 8-27 Glucose 141 mg/dL (Abnormal) Range: 65-99 85-Gia-690684:10 MICROALBUMIN: CREATININE RATIO Comments: PATIENT WAS FASTINGPERFORMED BY: Sverve Irzsnk2128 [facility] [id number] (42112) AND (55654) Alb/Creat Ratio <3.8 {mg/g_creat} (Normal) Range: 0.0-30.0 Albumin, Urine <3.0 ug/mL (Normal) Creatinine, Urine 78.1 mg/dL (Normal) 69-Nsz-710686:10 TSH (15627) Comments: PATIENT WAS FASTINGPERFORMED BY: [email or web address]]Hysyup6778 [address] [facility] [id number] TSH 2.160 {uIU/mL} (Normal) Range: 0.450-4.500 67-Tnc-154797:10 URINALYSIS W/O MICRO (79376) Comments: PATIENT WAS FASTINGPERFORMED BY: SvervePalisades Medical CenterObkonx6345 [facility] [id number] Microscopic Examination MICNIP (Normal) Comments: Microscopic not indicated and not performed. Nitrite, Urine Negative (Normal) Urobilinogen,Semi-Qn 0.2 mg/dL (Normal) Range: 0.2-1.0 Bilirubin Negative (Normal) Occult Blood Negative (Normal) Ketones Negative (Normal) Glucose 3+ (Abnormal) Protein Negative (Normal) WBC Esterase Negative (Normal) Appearance Clear (Normal) Urine-Color Yellow (Normal) pH 5.5 (Normal) Range: 5.0-7.5 Specific [place] >=1.030 (Abnormal) Range: 1.005-1.030 21-Wag-826968:17 HGB A1C (95057) Comments: today; PATIENT NOT FASTINGPERFORMED BY: SvervePalisades Medical CenterSibnyy2199 [facility] [id number] Hemoglobin A1c 7.4 % (Abnormal) Range: 4.8-5.6 Comments: . Pre-diabetes: 5.7 - 6.4 Diabetes: >6.4 Glycemic control for adults with diabetes: <7.0 65-Iml-408839:14 TSH (THYROID STIMULATING Comments: PATIENT WAS FASTINGPERFORMED BY: Bio[facility]ivC[place] 0279270 [facility] [id number] HORMONE) (83084) TSH 2.750 {uIU/mL} (Normal) Range: 0.450-4.500 16-Uky-023535:14 Lipid Panel (08609) Comments: PATIENT WAS FASTINGPERFORMED BY: [employer] [id number] LDL/HDL Ratio 2.0 {ratio_units} (Normal) Range: 0.0-3.2 Comments: LDL/HDL Ratio Men Women 1/2 Avg.Risk 1.0 1.5 Av g.Risk 3.6 3.2 2X Avg.Risk 6.2 5.0 3X Avg.Risk 8.0 6.1 LDL Cholesterol Calc 96 mg/dL (Normal) Range: 0-99 VLDL Cholesterol Edgardo 22 mg/dL (Normal) Range: 5-40 HDL Cholesterol 49 mg/dL (Normal) Triglycerides 110 mg/dL (Normal) Range: 0-149 Cholesterol, Total 167 mg/dL (Normal) Range: 100-199 36-Wzz-173376:14 CALCIFEDIOL (15851) Comments: PATIENT WAS FASTINGPERFORMED BY: [facility] [facility] [id number] Vitamin D, 25-Hydroxy 30.7 ng/mL (Normal) Range: 30.0-100.0 Comments: Vitamin D deficiency has been defined by the [place] ofMedicine and an Endocrine Society practice guideline as alevel of serum 25-OH vitamin D less than 20 ng/mL (1,2).The Endocrine Society went on to further define vitamin Dinsufficiency as a level between 21 and 29 ng/mL (2).1. IOM ([place] of Medicine). 2010. Dietary reference intakes for calcium and D. [place]: The National Academies Press.2. Eleni MF, Lorne MORTON, Dayron WALTON, et al. Evaluation, treatment, and prevention of vitamin D deficiency: an Endocrine Society clinical practice guideline. JCEM. 2010; 96(7):1911-30. 56-Mrm-548613:14 Metabolic Panel, Comprehensive Comments: PATIENT WAS FASTINGPERFORMED BY: [facility] HospitalCoPalisades Medical CenterGfaujt9615 [facility] [id number] (44050) ALT (SGPT) 11 [iU]/L (Normal) Range: 0-32 [...] Glucose, Serum 150 mg/dL (Abnormal) Range: 65-99 20-Ttw-103070:14 HGB A1C (68135) Comments: PATIENT WAS FASTINGPERFORMED BY: [address] [id number] Hemoglobin A1c 6.3 % (Abnormal) Range: 4.8-5.6 Comments: . Pre-diabetes: 5.7 - 6.4 Diabetes: >6.4 Glycemic control for adults with diabetes: <7.0; ADDENDA: OV 19-Jan-201712:28 Angiotensin Convert Enzyme Comments: [facility] (refer to report for specific site)refer to report for address and phone number JHONNY [phone] 51 U/L (Normal) Range: 14-82 Comments: Performed at: [address] [id number] Director: Jarrell Collazo PhD, Phone: [phone]; ADDENDA: Dr Granado 62-Eib-822839:28 Erythrocyte Sed Rate Comments: [facility] Nmoemoeddm[address] [place], [address] SED RATE 6 mm/h (Normal) Range: 0-30 81-Thl-786143:35 CBC, Platelets & Auto Diff Comments: PATIENT NOT FASTINGPERFORMED BY: [address] [id number] (30780) Immature Grans (Abs) 0.0 {x10E3/uL} (Normal) Range: [...] 3.77-5.28 WBC 6.5 {x10E3/uL} (Normal) Range: 3.4-10.8 39-Ack-603119:35 HGB A1C (94086) Comments: PATIENT NOT FASTINGPERFORMED BY: LabMicrobio PharmaPalisades Medical CenterZpeqon1254 [facility] [id number] Hemoglobin A1c 6.7 % (Abnormal) Range: 4.8-5.6 Comments: . Pre-diabetes: 5.7 - 6.4 Diabetes: >6.4 Glycemic control for adults with diabetes: <7.0 :35 Metabolic Panel, Basic Comments: PATIENT NOT FASTINGPERFORMED BY: LabMicrobio PharmaAmanda Ville [id number] [facility] [id number] (09749) Calcium, Serum 10.6 mg/dL (Abnormal) Range: 8.7-10.3 [...] Microscopic Examination Comments: PATIENT WAS FASTINGPERFORMED BY: [facility] [id number] Bacteria Few (Normal) Mucus Threads Present (Normal) Cast Type Hyaline casts (Normal) Casts Present {/lpf} (Abnormal) Epithelial Cells (non renal) 0-10 {/hpf} (Normal) Range: 0 - 10 RBC 0-2 {/hpf} (Normal) Range: 0 - 2 WBC 0-5 {/hpf} (Normal) Range: 0 - 5 :29 URINALYSIS (31562) Comments: PATIENT WAS FASTINGPERFORMED BY: [employer] [facility] [id number] Microscopic Examination See below: (Normal) Comments: Microscopic was indicated and was performed. Nitrite, Urine Negative (Normal) Urobilinogen,Semi-Qn 0.2 mg/dL (Normal) Range: 0.2-1.0 Bilirubin Negative (Normal) Occult Blood Negative (Normal) Ketones Negative (Normal) Glucose Negative (Normal) Protein Trace (Normal) WBC Esterase 1+ (Abnormal) Appearance Clear (Normal) Urine-Color Yellow (Normal) pH 6.0 (Normal) Range: 5.0-7.5 Specific [place] 1.027 (Normal) Range: 1.005-1.030 :29 MICROALBUMIN: CREATININE RATIO Comments: PATIENT WAS FASTINGPERFORMED BY: [employer] [facility] [id number] (06087) AND (97150) Microalb/Creat Ratio 11.0 {mg/g_creat} (Normal) Range: 0.0-30.0 Microalbumin, Urine 29.4 ug/mL (Normal) Creatinine, Urine 266.4 mg/dL (Normal) :29 CALCIFEDIOL (89300) Comments: PATIENT WAS FASTINGPERFORMED BY: [facility] [facility] [id number] Vitamin D, 25-Hydroxy 29.5 ng/mL (Abnormal) Range: 30.0-100.0 Comments: Vitamin D deficiency has been defined by the [place] ofMedicine and an Endocrine Society practice guideline as alevel of serum 25-OH vitamin D less than 20 ng/mL (1,2).The Endocrine Society went on to further define vitamin Dinsufficiency as a level between 21 and 29 ng/mL (2).1. IOM ([place] of Medicine). 2010. Dietary reference intakes for calcium and D. [place]: The National Academies Press.2. Eleni MF, Lorne NC, Dayron WALTON, et al. Evaluation, treatment, and prevention of vitamin D deficiency: an Endocrine Society clinical practice guideline. JCEM. 2010; 96(7):1911-30. :29 Lipid Panel (46530) Comments: PATIENT WAS FASTINGPERFORMED BY: [facility] [facility] [id number] LDL/HDL Ratio 1.9 {ratio_units} (Normal) Range: 0.0-3.2 Comments: LDL/HDL Ratio Men Women 1/2 Avg.Risk 1.0 1.5 Av g.Risk 3.6 3.2 2X Avg.Risk 6.2 5.0 3X Avg.Risk 8.0 6.1 LDL Cholesterol Calc 100 mg/dL (Abnormal) Range: 0-99 VLDL Cholesterol Edgardo 25 mg/dL (Normal) Range: 5-40 HDL Cholesterol 52 mg/dL (Normal) Triglycerides 125 mg/dL (Normal) Range: 0-149 Cholesterol, Total 177 mg/dL (Normal) Range: 100-199 45-Epx-097188:29 Metabolic Panel, Comprehensive Comments: PATIENT WAS FASTINGPERFORMED BY: LabCoPalisades Medical CenterAwzjog1137 [facility] [id number] (54370) ALT (SGPT) 14 [iU]/L (Normal) Range: 0-32 [...] Glucose, Serum 77 mg/dL (Normal) Range: 65-99 54-Uhv-666635:29 CBC, Platelets & Auto Diff Comments: PATIENT WAS FASTINGPERFORMED BY: SvervePalisades Medical CenterRhxmqk4461 [facility] [id number] (96629) Immature Grans (Abs) 0.0 {x10E3/uL} (Normal) Range: [...] 3.77-5.28 WBC 6.6 {x10E3/uL} (Normal) Range: 3.4-10.8 96-Nnl-485370:29 TSH (00027) Comments: PATIENT WAS FASTINGPERFORMED BY: LabCoPalisades Medical CenterIcgawr3906 [facility] [id number] TSH 2.240 {uIU/mL} (Normal) Range: 0.450-4.500 :29 HGB A1C (54594) Comments: PATIENT WAS FASTINGPERFORMED BY: [facility]Det[facility] [facility] [id number] Hemoglobin A1c 6.7 % (Abnormal) Range: 4.8-5.6 Comments: . Pre-diabetes: 5.7 - 6.4 Diabetes: >6.4 Glycemic control for adults with diabetes: <7.0 :23 HGB A1C (73648) Comments: PATIENT NOT FASTINGPERFORMED BY: [place] 7419670 [facility] [id number] Hemoglobin A1c 6.4 % (Abnormal) Range: 4.8-5.6 Comments: . Pre-diabetes: 5.7 - 6.4 Diabetes: >6.4 Glycemic control for adults with diabetes: <7.0 :06 Blood Glucose , Office (15212) Blood Glucose , Office 84 (Normal) : Hemoglobin A1c 6.7 % (Abnormal) Comments: PATIENT NOT FASTINGPERFORMED BY: [employer] [id number] Information: [id number] [id number] Range: 4.8-5.6 Comments: . Pre-diabetes: 5.7 - 6.4 Diabetes: >6.4 Glycemic control for adults with diabetes: <7.0 :13 HgA1C , Office (79256) HgA1C , Office 6.6 % (Normal) Range: 4.6 - 7.1 :07 Blood Glucose , Office (28698) Blood Glucose , Office 97 (Normal) :51 HgA1C , Office (51507) HgA1C , Office 6.9 % (Normal) Range: 4.6 - 7.1 :51 Blood Glucose , Office (15807) Blood Glucose , Office 129 (Normal) :35 Sputum Culture (20940) Comments: PATIENT NOT FASTINGPERFORMED BY: [address] [id number] Information: [id number] Result 1 RRF (Normal) Comments: Routine respiratory marilin Lower Respiratory Culture Final report (Normal) 47-Ipk-744576:10 Rapid Flu (00466 x 2) Comments: neg Influenza A Ag neg (Normal) 4-Orl-795819:31 Vitamin D Hydroxy (08135) Comments: PATIENT WAS FASTINGPERFORMED BY: eTukTuk[address] [place] [id number] Vitamin D, 25-Hydroxy 34.0 ng/mL (Normal) Range: 30.0-100.0 Comments: Vitamin D deficiency has been defined by the [place] ofMedicine and an Endocrine Society practice guideline as alevel of serum 25-OH vitamin D less than 20 ng/mL (1,2).The Endocrine Society went on to further define vitamin Dinsufficiency as a level between 21 and 29 ng/mL (2).1. IOM ([place] of Medicine). 2010. Dietary reference intakes for calcium and D. [place]: The National Academies Press.2. Eleni MF, Lorne MORTON, Dayron WALTON, et al. Evaluation, treatment, and prevention of vitamin D deficiency: an Endocrine Society clinical practice guideline. JCEM. 2010; 96(7):1911-30. 5-Prc-511794:31 Amylase (63415) Comments: PATIENT WAS FASTINGPERFORMED BY: [employer] Rwszvg2708 [place] [id number] Amylase, Serum 32 U/L (Normal) Range: 31-124 2-Uqx-842135:31 Lipase (27215) Comments: PATIENT WAS FASTINGPERFORMED BY: [employer] Vlpjic4893 [address] [place] [id number] Lipase, Serum 47 U/L (Normal) Range: 0-59 5-Ckv-309132:31 LIPID PANEL (40658) Comments: PATIENT WAS FASTINGPERFORMED BY: [employer] Xpmhyb6650 [address] [place] [id number] LDL/HDL Ratio 1.7 {ratio_units} (Normal) Range: 0.0-3.2 [...] Cholesterol, Total 155 mg/dL (Normal) Range: 100-199 1-Bpd-707739:31 TSH (57916) Comments: PATIENT WAS FASTINGPERFORMED BY: [facility] Tfxmhw3839 [facility] [id number] TSH 1.140 {uIU/mL} (Normal) Range: 0.450-4.500 :31 METABOLIC PANEL, Comments: PATIENT WAS FASTINGPERFORMED BY: LabCoPalisades Medical CenterLebcyo1651 [facility] [id number] Information: [id number] COMPREHENSIVE (54166) ALT (SGPT) 20 [iU]/L (Normal) Range: 0-32 [...] (Normal) Range: 65-99 :12 HgA1C , Office (45565) HgA1C , Office 6.4 % (Normal) Range: 4.6 - 7.1 :21 HgA1C , Office (12547) HgA1C , Office 6.8 % (Normal) Range: 4.6 - 7.1 :21 Blood Glucose , Office (97018) Blood Glucose , Office 122 (Normal) :33 CBC W/Diff, Automated Comments: Test performed at:[facility] Ijfutrjwdt[address] [place], [place] [id number] Absolute Lymph 1.21 {X10_3/ul} (Normal) Range: 0.83-4.51 [...] 4.2-5.4 WBC 6.0 K/mm3 (Normal) Range: 4.4-11.0 47-Afd-536531:33 Comprehensive Metabolic Profil Comments: Test performed at:[facility] Tbexfrhfhh3306 [facility]. [place], [place] [id number] GAP 8 (Normal) Range: 5-15 CO2 28.0 [...] Comments: Please note revised CREATININE reference range zhodndeox45/22/2015. BUN 13 mg/dL (Normal) Range: 7-18 GLU 84 mg/dL (Normal) Range: 70-110 92-Wkk-586174:33 Lipid Profile Comments: Test performed at:[facility] Iclbrxyovr5379 [facility] [place] [address] ; non-emergent till apt VLDL [...] 200-240 mg/dL Borderline >240 mg/dL High Risk 17-Xnf-163194:33 Microalb:Creat Ratio,Random UR Comments: Test performed at:[facility] Qofxtgfaiw[address] [place] [address] MALB:CREAT Test not performed {mg/g_CRE} (Normal) MICROALBUMIN,UR < 5.0 mg/L (Normal) UR CREAT 179.00 mg/dL (Normal) 83-Tpi-770206:33 Thyroid Stim Hormone (TSH) Comments: Test performed at:[facility] V[address] [place] [address] TSH 0.84 {uIU/mL} (Normal) Range: 0.358-3.74 78-Gqw-891883:33 Vitamin D,25 Hydroxy Comments: Test performed at:[facility] Azhzjbrryt[address] [place] [address] Vitamin D 25-OH 23.5 ng/mL (Normal) Comments: Vitamin D 25(OH) Status Range Deficiency <20 ng/mL (50nmol/L) Insuffciency 20 - 30 ng/mL (50 - 75 nmol/L) Sufficiency 30 - 100 ng/mL (75 - 250 nmol/L) Toxicity >100 ng/mL (>250 nmol/L) 8-Usc-979343:34 HgA1C , Office (64912) HgA1C , Office 7.0 % (Normal) Range: 4.6 - 7.1 0-Slw-938066:00 CBC W/Diff, Automated Comments: Test performed at:[facility] Asniuaeeeu0628 [facility] [place] [address] Absolute Lymph 2.03 {X10_3/ul} (Normal) [...] 4.2-5.4 WBC 9.1 K/mm3 (Normal) Range: 4.4-11.0 7-Mdd-130851:00 CK-MB Quantitative and Index Comments: 'TROP' Serial specimen #1, #2, #3, or #4: 1'CKMB' Serial Specimen #1, #2 or #3? 1Test performed at:[facility] Vqyuvfnteu9324 [facility] [place] [address] CPKMB 1.7 ng/mL (Normal) Range: 0.0-5.0 Comments: CK-MB and RI Interpretation MB Relative Index Non-AMI <or= 5 NA Indeterminate > 5 <or= 4 AMI > 5 > 4 CPK TOTAL 137 U/L (Normal) Range: 26-192 9-Goa-668868:00 Myoglobin, Serum Comments: Test performed at:[facility] [address] [place], [place] [id number] Myoglobin, Ser 149 ng/mL (Abnormal) Range: 25-58 Comments: Performed at: [facility] Lab[address] [id number] Director: Jonathan Majano PhD, Phone: [phone] 6-Ytd-359269:00 Troponin-I Comments: 'TROP' Serial specimen #1, #2, #3, or #4: 1'CKMB' Serial Specimen #1, #2 or #3? 1Test performed at:[facility] [address] [place] [address] TROPONIN-I < 0.02 ng/mL (Normal) Comments: TROPONIN-I EXPECTED VALUES <0.05 NEGATIVE 0.06 - 0.59 AT RISK OF ID > OR = 0.60 SUGGEST ID 2-Xwd-[id number]:46 Rapid Flu (68897 x 2) Influenza A Ag n (Normal) 58-Wfa-374413:30 Culture, Wound Comments: Test performed at:[facility] [address] [place] [address] CUW See Note (Normal) Comments: Gram StainGram [...] $ 1 S(NF) indicates non-formulary drug at [facility]. Approval by Infectious Disease Specialist required before non-formulary dr gerard may be ordered and/or dispensed. * CLSI guidelines does not recommend testing of cephalosporins. This interpretation is deduced from Beta- lactam/penicillin results. 27-Qlv-536375:20 WCGLU 81 mg/dL (Normal) Range: 70-110 87-Tka-167310:20 WCLIPID VLDL 34 mg/dL (Normal) Range: 5-40 [...] CHOL 178 mg/dL (Normal) Comments: <200 mg/dL Ljhrprirz277-823 mg/dL Borderline>240 mg/dL High Risk 5-Lek-477359:50 MUM < 0.80 AU (Normal) Range: 0.00-0.79 Comments: Negative < 0.80Borderline 0.80 - 1.20Positive > 1.20Note: The presence of IgM specific antibody should beinterpreted in conjunction with the patient's clinicalhistory and exposure risk when an acute infection issuspected.Performed at: - [employer] [id number] Director: Rafita Cruz MD, Phone: [phone] at: [facility] Lab[address] [id number] Director: Jj Caballero MD, Phone: [phone] 1-Yjz-769320:50 RUBEOG > 300.0 AU/mL (Normal) Comments: Negative <25.0Equivocal 25.0 - 29.9Positive >29.9Presence of antibodies to Rubeola is presumptive evidenceof immunity except when acute infection is suspected. 8-Cyn-541971:50 RUBG > 500.0 {IU/mL} (Normal) Comments: Antibody results Interpretation of Immune Status< 5 IU/ml Presumed Non-immune5 - < 10 IU/ml Equivocal> or = 10 IU/ml Presumed Immune :26 MICROALBUMIN: CREATININE RATIO Comments: PATIENT WAS FASTINGPERFORMED BY: SvervePalisades Medical CenterVrwirh0674 [facility] [id number] (01023) AND (50251) Microalb/Creat Ratio 3.9 {mg/g_creat} (Normal) Range: 0.0-30.0 Creatinine, Urine 177.5 mg/dL (Normal) Range: 15.0-278.0 Microalbumin, Urine 7.0 ug/mL (Normal) Range: 0.0-17.0 :26 CBC WITH MANUAL DIFF Comments: PATIENT WAS FASTINGPERFORMED BY: SvervePalisades Medical CenterRfcdyu8082 [facility] [id number] Information: [id number] (18247) Immature Grans (Abs) 0.0 {x10E3/uL} (Normal) Range: [...] 3.77-5.28 WBC 6.0 {x10E3/uL} (Normal) Range: 3.4-10.8 01-Nov-20139:26 METABOLIC PANEL, COMPREHENSIVE Comments: PATIENT WAS FASTINGPERFORMED BY: LabCoPalisades Medical CenterPytcfe2098 [facility] [id number] (71760) ALT (SGPT) 22 [iU]/L (Normal) Range: 0-32 [...] (Abnormal) Range: 65-99 :26 Vitamin D Hydroxy (39853) Comments: PATIENT WAS FASTINGPERFORMED BY: e[employer]ukTuk[address] [facility] [id number] Vitamin D, 25-Hydroxy 32.9 ng/mL (Normal) Range: 30.0-100.0 Comments: Vitamin D deficiency has been defined by the [place] ofMccullough-Hyde Memorial Hospitalcine and an Endocrine Society practice guideline as alevel of serum 25-OH vitamin D less than 20 ng/mL (1,2).The Endocrine Society went on to further define vitamin Dinsufficiency as a level between 21 and 29 ng/mL (2).1. IOM ([place] of Medicine). 2010. Dietary reference intakes for calcium and D. [place]: The National Academies Press.2. Eleni MF, Lorne MORTON, Dayron WALTON, et al. Evaluation, treatment, and prevention of vitamin D deficiency: an Endocrine Society clinical practice guideline. JCEM. 2010; 96(7):1911-30. :26 LIPID PANEL (14083) Comments: PATIENT WAS FASTINGPERFORMED BY: eTukTuk[address] [facility] [id number] LDL/HDL Ratio 1.6 {ratio_units} (Normal) Range: 0.0-3.2 LDL Cholesterol Calc 74 mg/dL (Normal) Range: 0-99 HDL Cholesterol 46 mg/dL (Normal) Comments: According to ATP-III Guidelines, HDL-C >59 mg/dL is considered anegative risk factor for CHD. VLDL Cholesterol Edgardo 22 mg/dL (Normal) Range: 5-40 Triglycerides 112 mg/dL (Normal) Range: 0-149 Cholesterol, Total 142 mg/dL (Normal) Range: 100-199 :26 TSH (36736) Comments: PATIENT WAS FASTINGPERFORMED BY: e[employer]uk[employer]uk[address] [facility] [id number] TSH 1.560 {uIU/mL} (Normal) Range: 0.450-4.500 2-Jgt-050217:02 HgA1C , Office (42758) HgA1C , Office 6.6 % (Normal) Range: 4.6 - 7.1 7-Yiz-619187:41 HgA1C , Office (82075) HgA1C , Office 6.4 % (Normal) Range: 4.6 - 7.1 27-Fsr-781895:30 Microscopic Examination Comments: PATIENT WAS FASTINGPERFORMED BY: [facility] [facility] [id number] Bacteria Few (Normal) Mucus Threads Present (Normal) Epithelial Cells (non renal) 0-10 {/hpf} (Normal) Range: 0 - 10 RBC 0-3 {/hpf} (Normal) Range: 0 - 3 WBC 0-5 {/hpf} (Normal) Range: 0 - 5 94-Uos-511732:30 LIPID PANEL (37773) Comments: PATIENT WAS FASTINGPERFORMED BY: SvervePalisades Medical CenterYzjszp1962 [facility] [id number] LDL/HDL Ratio 2.3 {ratio_units} (Normal) Range: 0.0-3.2 LDL Cholesterol Calc 103 mg/dL (Abnormal) Range: 0-99 VLDL Cholesterol Edgardo 30 mg/dL (Normal) Range: 5-40 HDL Cholesterol 45 mg/dL (Normal) Comments: According to ATP-III Guidelines, HDL-C >59 mg/dL is considered anegative risk factor for CHD. Cholesterol, Total 178 mg/dL (Normal) Range: 100-199 Triglycerides 148 mg/dL (Normal) Range: 0-149 71-Zzl-594337:30 Vitamin D Hydroxy (45972) Comments: PATIENT WAS FASTINGPERFORMED BY: [facility] Kwaukp1428 [facility] [id number] Vitamin D, 25-Hydroxy 35.6 ng/mL (Normal) Range: 30.0-100.0 Comments: Vitamin D deficiency has been defined by the [place] ofMedicine and an Endocrine Society practice guideline as alevel of serum 25-OH vitamin D less than 20 ng/mL (1,2).The Endocrine Society went on to further define vitamin Dinsufficiency as a level between 21 and 29 ng/mL (2).1. IOM ([place] of Medicine). 2010. Dietary reference intakes for calcium and D. [place]: The National Academies Press.2. Eleni MF, Lorne MORTON, Dayron WALTON, et al. Evaluation, treatment, and prevention of vitamin D deficiency: an Endocrine Society clinical practice guideline. JCEM. 2010; 96(7):1911-30. 03-Fbc-615091:30 URINALYSIS, W/ MICRO (06963) Comments: PATIENT WAS FASTINGPERFORMED BY: SvervePalisades Medical CenterPcnafy3371 [facility] [id number] Microscopic Examination See below: (Normal) Nitrite, Urine Negative (Normal) Bilirubin Negative (Normal) Urobilinogen,Semi-Qn 0.2 mg/dL (Normal) Range: 0.0-1.9 Occult Blood Negative (Normal) Ketones Negative (Normal) Glucose Negative (Normal) Protein Negative (Normal) WBC Esterase 1+ (Abnormal) Appearance Clear (Normal) Urine-Color Yellow (Normal) pH 5.5 (Normal) Range: 5.0-7.5 Specific [place] 1.017 (Normal) Range: 1.005-1.030 [id number] CBC WITH MANUAL DIFF Comments: PATIENT WAS FASTINGPERFORMED BY: [facility] [facility] [id number] Information: [id number] ([id number]) Immature Grans (Abs) 0.0 {x10E3/uL} (Normal) Range: [...] 3.77-5.28 WBC 6.2 {x10E3/uL} (Normal) Range: 3.4-10.8 [id number]-[id number] METABOLIC PANEL, COMPREHENSIVE Comments: PATIENT WAS FASTINGPERFORMED BY: LabCoPalisades Medical CenterMqtvir16[address] [facility] [id number] (09860) ALT (SGPT) 23 [iU]/L (Normal) Range: 0-32 [...] (Abnormal) Range: 65-99 :35 HgA1C , Office (23783) HgA1C , Office 6.6 % (Normal) Range: 4.6 - 7.1 85-Fum-008585:41 Thin prep Pap (56210) Comments: Source.............VaginalNo. of containers..01 CYTYC Thin Prep VialPATIENT NOT FASTINGPERFORMED BY: Sverve[address] [id number] Information: [id number] Pathologist provided ICD9: SPRCS (Normal) Comments: 627.3The [...] of hysterectomy.V72.31 ; Routine gynecological examinationGris Moreau Metal Neutralizer (ASCP) 03-Apr-20139:36 VITAMIN B-12 (CYANOCOBALAMIN) Comments: PATIENT WAS FASTINGPERFORMED BY: Sverve [facility] [id number] (23043) Vitamin B12 628 pg/mL (Normal) Range: 211-946 :36 LIPID PANEL (55108) Comments: PATIENT WAS FASTINGPERFORMED BY: InstaclustrLevine [facility] Hospital [id number] LDL/HDL Ratio 2.2 {ratio_units} (Normal) Range: 0.0-3.2 LDL Cholesterol Calc 87 mg/dL (Normal) Range: 0-99 VLDL Cholesterol Edgardo 27 mg/dL (Normal) Range: 5-40 HDL Cholesterol 39 mg/dL (Abnormal) Comments: According to ATP-III Guidelines, HDL-C >59 mg/dL is considered anegative risk factor for CHD. Cholesterol, Total 153 mg/dL (Normal) Range: 100-199 Triglycerides 137 mg/dL (Normal) Range: 0-149 :36 Vitamin D Hydroxy (77894) Comments: PATIENT WAS FASTINGPERFORMED BY: MTX Connect [employer] [facility] [id number] Vitamin D, 25-Hydroxy 31.1 ng/mL (Normal) Range: 30.0-100.0 Comments: Vitamin D deficiency has been defined by the [place] ofM[facility] Hospitalcine and an Endocrine Society practice guideline as alevel of serum 25-OH vitamin D less than 20 ng/mL (1,2).The Endocrine Society went on to further define vitamin Dinsufficiency as a level between 21 and 29 ng/mL (2).1. IOM ([place] of Medicine). 2010. Dietary reference intakes for calcium and D. [place]: The National Academies Press.2. Eleni MF, Lorne NC, Dayron WALTON, et al. Evaluation, treatment, and prevention of vitamin D deficiency: an Endocrine Society clinical practice guideline. JCEM. 2010; 96(7):1911-30. :36 TSH (10566) Comments: PATIENT WAS FASTINGPERFORMED BY: [facility] [[email or web address]]Cjklul0148 [facility] [id number] TSH 1.510 {uIU/mL} (Normal) Range: 0.450-4.500 :36 MICROALBUMIN: CREATININE RATIO Comments: PATIENT WAS FASTINGPERFORMED BY: MTX Connect Krpaix79[address] [facility] [id number] (67108) AND (03261) Creatinine, Urine 212.6 mg/dL (Normal) Range: 15.0-278.0 Microalb/Creat Ratio 2.1 {mg/g_creat} (Normal) Range: 0.0-30.0 Microalbumin, Urine 4.5 ug/mL (Normal) Range: 0.0-17.0 :36 METABOLIC PANEL, Comments: PATIENT WAS FASTINGPERFORMED BY: LabCoPalisades Medical CenterNqiloe6750 [address] [place] [id number] Information: [id number] COMPREHENSIVE (17448) ALT (SGPT) 23 [iU]/L (Normal) Range: 0-32 [...] Glucose, Serum 160 mg/dL (Abnormal) Range: 65-99 :34 BILAT SCRN DIGITAL & CAD Radiology Report [...] Mckenzie M.D.April 12, 2012 at 10:58:16 AM [id number] Signed GP/GP If you are the referring physician and would like to consult w [facility] theradiologist who provided this interpretation, please contact Sudha Pritchett at [phone]. If this radiologist is unavailable, youwill be directed to another radiologist to assist. If you are a patient with a question regarding this report, pleasecontactyour referring physician directly. Professional Interpretation Provided By: Intron[employer], Phone , These documents contain legally protected [...] destructionofthese documents. Dictated on 04/12/12 0934 by Martin Mckenzie MDscribed on 04/12/12 110 by ITS IMPORTSign by Leobardo Mckenzie MD on 04/12/12 110 Sign by: Jonah HUTCHINSON,Leobardo 73-Gnu-95663:34 DEXA BONE DENSITY STUDY (HP) Radiology Report [...] Mckenzie M.D.April 12 2 at 12:31:08 PM [id number] Signed GP/GP If you are the referring physician and would like to consult with theradiologist who provided this interpretation, please contact Rashard thompson M.D. at [phone]. If this radiologist is unavailable, youwill be directed to another radiologist to assist. If you are a patient with a question regarding this report, pleasecontactyour refer ring physician directly. Professional Interpretation Provided By: [employer], Phone , These documents contain legally protected [...] 04/12/12 1235 Sign by: Leobardo Mckenzie MD 6-Cre-310633:25 HPV automatic Comments: Source.............Cervical;EndocervicalNo. of containers..01 CYTYC Thin Prep VialPATIENT NOT FASTINGPERFORMED BY: WB [facility] Bkcrjrtkis786 [facility] [id number] BY: =Stephanie Hodge (88443) [facility] Ffpfbkmouw620 [facility] [id number] Information: [id number] HPV, high-risk Negative Comments: This high-risk HPV [...] a history of hysterectomy.V72.31 ; Routine gynecological examinationIvanna Steven Metal Neutralizer (ASCP) :37 Hemoglobin Glyclated (HGB A1C) Comments: PATIENT WAS FASTINGPERFORMED BY: SvervePalisades Medical CenterUzikuo9731 [facility] [id number] (60921) Hemoglobin A1c 7.1 % (Abnormal) Range: 4.8-5.6 Comments: . Increased risk for diabetes: 5.7 - 6.4 Diabetes: >6.4 Glycemic control for adults with diabetes: <7.0 :37 TSH (69245) Comments: PATIENT WAS FASTINGPERFORMED BY: LabMicrobio PharmaPalisades Medical CenterOtahqq1286 [facility] [id number] TSH 1.790 {uIU/mL} (Normal) Range: 0.450-4.500 :37 CBC WITH MANUAL DIFF Comments: PATIENT WAS FASTINGPERFORMED BY: LabMicrobio PharmaPalisades Medical CenterFqhuch3521 [facility] [id number] Information: [id number] (98728) Immature Grans (Abs) 0.0 {x10E3/uL} (Normal) Range: [...] CREATININE RATIO Comments: PATIENT WAS FASTINGPERFORMED BY: MTX ConnectThree [facility] [[email or web address]]Cylhgz2851 [facility] [id number] (83060) AND (25292) Microalb/Creat Ratio 0.8 {mg/g_creat} (Normal) Range: 0.0-30.0 Microalbumin, Urine 1.4 ug/mL (Normal) Range: 0.0-17.0 Creatinine, Urine 183.1 mg/dL (Normal) Range: 15.0-278.0 :37 LIPID PANEL (50894) Comments: PATIENT WAS FASTINGPERFORMED BY: [facility]veThree [facility] [[email or web address]]Qeuxrf3281 [facility] [id number] LDL/HDL Ratio 1.4 {ratio_units} (Normal) Range: 0.0-3.2 [...] 100-199 Comments: Please note reference interval change 22-Xzj-55908:37 METABOLIC PANEL, COMPREHENSIVE Comments: PATIENT WAS FASTINGPERFORMED BY: LabCoPalisades Medical CenterVhcryt9068 [facility] [id number] (51131) ALT (SGPT) 26 [iU]/L (Normal) Range: 0-40 [...] (Abnormal) Range: 65-99 :37 Vitamin D Hydroxy (44171) Comments: PATIENT WAS FASTINGPERFORMED BY: BioMotivSaint Luke'S North Hospital–SmithvilleYhnfqc1240 [facility] [id number] Vitamin D, 25-Hydroxy 42.1 ng/mL (Normal) Range: 30.0-100.0 Comments: Vitamin D deficiency has been defined by the [place] ofMedicine and an Endocrine Society practice guideline as alevel of serum 25-OH vitamin D less than 20 ng/mL (1,2).The Endocrine Society went on to further define vitamin Dinsufficiency as a level between 21 and 29 ng/mL (2).1. IOM ([place] of Medicine). 2010. Dietary reference intakes for calcium and D. [place]: The National Academies Press.2. Eleni MF, Lorne MORTON, Dayron WALTON, et al. Evaluation, treatment, and prevention of vitamin D deficiency: an Endocrine Society clinical practice guideline. JCEM. 2010; 96(7):1911-30. :37 VITAMIN B-12 (CYANOCOBALAMIN) Comments: PATIENT WAS FASTINGPERFORMED BY: SvervePalisades Medical CenterNpvhrk6753 [facility] [id number] (58975) Vitamin B12 1841 pg/mL (Abnormal) Range: 211-946 :56 CHEST WITH CONTRAST Radiology Report See Note [...] Signed:Marva HunterFebruary 11, 2012 at 3:53:06 PM [id number] Signed MV/MV If you are the referring physician and would like to consult with theradiologist who provided this interpretation, please co ntact Jackie Sierra M.D. at . If this radiologist is unavailable, youwillbe directed to another radiologist to assist. If you are a patient with a question regarding this report, pleas econtactyour referring physician directly. Professional Interpretation Provided By: [employer], Phone , These documents contain legally protected [...] documents. Dictated on 02/11/12 1 404 by DENNY SIERRA MDUSTranscribed on 02/11/12 1611 by ITS IMPORTSign by JACKIE SIERRA MD on 02/11/12 1612 Sign by: JACKIE SIERRA MD 91-Fhj-160593:22 CRE GFRAA 95 mL/min (Normal) GFR 78 mL/min (Normal) CREAT 0.8 mg/dL (Normal) Range: 0.6-1.0 79-Olq-01586:42 MICROALBUMIN: CREATININE RATIO Comments: PATIENT WAS FASTINGPERFORMED BY: LabDet[facility] Hospital[address] [facility] [id number] (54463) AND (03768) Creatinine, Urine 87.6 mg/dL (Normal) Range: 15.0-278.0 Microalb/Creat Ratio 1.1 {mg/g_creat} (Normal) Range: 0.0-30.0 Microalbumin, Urine 1.0 ug/mL (Normal) Range: 0.0-17.0 :42 VITAMIN B-12 (CYANOCOBALAMIN) Comments: PATIENT WAS FASTINGPERFORMED BY: SvervePalisades Medical CenterMbazhs5202 [facility] [id number] (84435) Vitamin B12 1740 pg/mL (Abnormal) Range: 211-946 :42 CBC WITH MANUAL DIFF Comments: PATIENT WAS FASTINGPERFORMED BY: Sverve Vnhwcc5[address] [facility] [id number] Information: [id number] (74700) Immature Grans (Abs) 0.0 {x10E3/uL} (Normal) Range: [...] 3.77-5.28 WBC 5.5 {x10E3/uL} (Normal) Range: 4.0-10.5 :42 Vitamin D Hydroxy (48800) Comments: PATIENT WAS FASTINGPERFORMED BY: LabCoPalisades Medical CenterVmdbyn1044 [facility] [id number] Vitamin D, 25-Hydroxy 32.2 ng/mL (Normal) Range: 30.0-100.0 Comments: Vitamin D deficiency has been defined by the [place] ofM[facility] Hospitalcine and an Endocrine Society practice guideline as alevel of serum 25-OH vitamin D less than 20 ng/mL (1,2).The Endocrine Society went on to further define vitamin Dinsufficiency as a level between 21 and 29 ng/mL (2).1. IOM ([place] of Medicine). 2010. Dietary reference intakes for calcium and D. [place]: The National Academies Press.2. Eleni MF, Lorne NC, Dayron WALTON, et al. Evaluation, treatment, and prevention of vitamin D deficiency: an Endocrine Society clinical practice guideline. JCEM. 2010; 96(7):1911-30. :42 LIPID PANEL (48656) Comments: PATIENT WAS FASTINGPERFORMED BY: LabCoPalisades Medical CenterKyoskj6092 [facility] [id number] LDL/HDL Ratio 2.2 {ratio_units} (Normal) Range: 0.0-3.2 [...] PANEL, COMPREHENSIVE Comments: PATIENT WAS FASTINGPERFORMED BY: LabCoPalisades Medical CenterPblaur3062 [facility] [id number] (45154) ALT (SGPT) 20 [iU]/L (Normal) Range: 0-32 [...] Glucose, Serum 148 mg/dL (Abnormal) Range: 65-99 68-Irx-57457:42 TSH (65994) Comments: PATIENT WAS FASTINGPERFORMED BY: LabCoPalisades Medical CenterHzgicm7618 [facility] [id number] TSH 2.140 {uIU/mL} (Normal) Range: 0.450-4.500 3-Jcm-899372:41 Urinalysis, Office (07716) UA - BILIRUBIN Negative (Normal) UA - BLOOD Negative (Normal) UA - GLUCOSE Negative (Normal) UA - KETONES Negative mg/dL (Normal) UA - LEUKOCYTE ESTERASE Negative (Normal) UA - NITRITE Negative (Normal) UA - PH 8.5 (Normal) UA - PROTEIN 30 mg/dL (Normal) UA - SPECIFIC GRAVITY 1.020 (Normal) URINE UROBILINGN SUNNY TIMED Normal mg/dL (Normal) 22-Wea-788518:08 CULTURE, SPUTUM (63939) Comments: PATIENT NOT FASTINGPERFORMED BY: TARAS [facility] Sdmydt3138 [facility] [id number] Information: SRC:SPT ADD [id number] Result 1 RRF (Normal) Comments: Routine respiratory marilin Lower Respiratory Culture Final report (Normal) :24 CBCD,SMEAR DIFF RED CELL MORPH SeeNote {NORMAL} [...] {uIU/mL} (Normal) Range: 0.358-3.74 :24 VIT D,25 70352 37.4 ng/mL (Normal) Range: 30.0-100.0 Comments: Vitamin D deficiency has been defined by the [place] ofMedicine and an Endocrine Society practice guideline as alevel of serum 25-OH vitamin D less than 20 ng/mL (1,2).The Endocrine Society went on to further define vitamin Dinsufficiency as a level between 21 and 29 ng/mL (2).1. IOM ([place] of Medicine). 2011. Dietary reference intakes for calcium and D. [place]: The National Academies Press.2. Eleni MF, Lorne MORTON, Dayron WALTON, et al. Evaluation, treatment, and prevention of vitamin D deficiency: an Endocrine Society clinical practice guideline. JCEM. 2010; 96(7): 1911-30.Performed at: [address] [id number] Director: Leigh Palomo MD, Phone: [phone] 1-Meu-152714:43 Blood Glucose , Office (79027) Blood Glucose , Office 141 (Normal) 50-Hwj-60063:08 BILAT SCRN DIGITAL & CAD Radiology Report [...] a clinically suspiciousab normality. Dictated on 04/07/11 6473 by Jonah HUTCHINSON,GabrieleTranscribed on 04/07/11 1031 by ITS IMPORTSign by Leobardo Mckenzie MD on 04/07/11 1032 Sign by: Leobardo Mckenzie MD 34-Usc-630186:03 Rapid Strep Test, Office (20848) Comments: neg Rapid Strep Test, Office Negative (Normal) 25-Jwy-166123:48 MEHREEN CULTURE-OTHER (52663) Comments: PATIENT NOT FASTINGPERFORMED BY: LabMicrobio PharmaPalisades Medical CenterObrtxa8776 [facility] [id number] Information: SRC:THRT [id number] Result 1 RRF (Normal) Comments: Routine respiratory marilin Upper Respiratory Culture Final report (Normal) 37-Dya-404748:37 Rapid Strep Test, Office (98803) Rapid Strep Test, Office Negative (Normal) 03-Hho-488970:05 Rapid Flu (56488 x 2) Influenza A Ag negative (Normal) 28-Pvc-84264:18 MICROALBUMIN: CREATININE RATIO Comments: PATIENT WAS FASTINGPERFORMED BY: SvervePalisades Medical CenterKtnokr1792 [facility] [id number] (90176) AND (31232) Microalb/Creat Ratio 2.4 {mg/g_creat} (Normal) Range: 0.0-30.0 Microalbumin, Urine 4.6 ug/mL (Normal) Range: 0.0-17.0 Creatinine, Urine 189.1 mg/dL (Normal) Range: 15.0-278.0 :18 CBC WITH MANUAL DIFF Comments: PATIENT WAS FASTINGPERFORMED BY: SvervePalisades Medical CenterUixzjo4620 [facility] [id number] Information: [id number] (19032) Immature Grans (Abs) 0.0 {x10E3/uL} (Normal) Range: [...] 3.80-5.10 WBC 6.4 {x10E3/uL} (Normal) Range: 4.0-10.5 66-Ijt-74388:18 METABOLIC PANEL, COMPREHENSIVE Comments: PATIENT WAS FASTINGPERFORMED BY: LabCoPalisades Medical CenterDazyza9111 [facility] [id number] (01845) ALT (SGPT) 21 [iU]/L (Normal) Range: 0-40 [...] (Abnormal) Range: 65-99 :18 Vitamin D Hydroxy (35114) Comments: PATIENT WAS FASTINGPERFORMED BY: eTukTuk[address] [facility] [id number] Vitamin D, 25-Hydroxy 38.2 ng/mL (Normal) Range: 32.0-100.0 Comments: Recent studies consider the lower limit of 32.0 ng/mL to be athreshold for optimal health.Tom SOLIS. J Nutr. 2004;135(2):317-22. :18 LIPID PANEL (59512) Comments: PATIENT WAS FASTINGPERFORMED BY: eTukTuk[address] [facility] [id number] LDL Cholesterol Calc 69 mg/dL (Normal) Range: 0-99 LDL/HDL Ratio 1.7 {ratio_units} (Normal) Range: 0.0-3.2 HDL Cholesterol 40 mg/dL (Normal) Comments: According to ATP-III Guidelines, HDL-C >59 mg/dL is considered anegative risk factor for CHD. VLDL Cholesterol Edgardo 37 mg/dL (Normal) Range: 5-40 Cholesterol, Total 146 mg/dL (Normal) Range: 100-199 Triglycerides 184 mg/dL (Abnormal) Range: 0-149 :18 TSH (89919) Comments: PATIENT WAS FASTINGPERFORMED BY: LabCoPalisades Medical CenterWqvpod6990 [facility] [id number] TSH 1.380 {uIU/mL} (Normal) Range: 0.450-4.500 :58 HgA1C , Office (36577) HgA1C , Office 6.4 % (Normal) Range: 4.6 - 7.1 :58 Blood Glucose , Office (51863) Blood Glucose , Office 146 (Normal) 20-Cyn-638318:43 L/S SPINE,MIN 4 VIEWS (MT) Radiology Report See Note (Normal) Comments: Exam Number: [id number] CLINICAL:The patient is a 59-year-old woman with [...] ESTElectronically Signed PM/PM As part of our Mathematics Instructor Program, we request that surgical orpathologic correlation, or any additional supportive or discordantmedical history, laboratory or imaging studies be forwarded [facility], attention: Peer ReviewCoordinator. , , [address] [facility], [address] [place] [address]. Reported By: CHASTITY RETANA M.D. 79-Dzf-678619:28 Urinalysis, Office (02182) UA - BILIRUBIN Negative (Normal) UA - BLOOD Negative (Normal) UA - GLUCOSE Negative (Normal) UA - KETONES Negative mg/dL (Normal) UA - LEUKOCYTE ESTERASE Negative (Normal) UA - NITRITE Negative (Normal) UA - PH 6.0 (Normal) UA - PROTEIN Negative mg/dL (Normal) UA - SPECIFIC GRAVITY 1.025 (Normal) URINE UROBILINGN SUNNY TIMED 2 mg/dL (Normal) 05-Mpl-100600:46 Thin prep Pap (99828) Comments: Source.............VaginalLMP / Prev Treat...HystNo. of containers..01 CYTYC Thin Prep VialPERFORMED BY: [facility] [address] [id number] Information: [id number] Note: PAPSMR (Normal) Comments: The Pap smear [...] gynecological exami [facility] Luis, Metal Neutralizer (ASCP) 95-Dqa-654760:06 Vitamin D Hydroxy (60974) Comments: PATIENT WAS FASTINGPERFORMED BY: [facility] Llznqk0854 [facility] [id number] Vitamin D, 25-Hydroxy 26.5 ng/mL (Abnormal) Range: 32.0-100.0 Comments: Recent studies consider the lower limit of 32.0 ng/mL to be athreshold for optimal health.Tom SOLIS. J Nutr. 2004;135(2):317-22. 09-Pyk-512354:06 LIPID PANEL (78163) Comments: PATIENT WAS FASTINGPERFORMED BY: eTukTuk[address] [facility] [id number] LDL Cholesterol Calc 57 mg/dL (Normal) Range: 0-99 LDL/HDL Ratio 1.4 {ratio_units} (Normal) Range: 0.0-3.2 VLDL Cholesterol Edgardo 32 mg/dL (Normal) Range: 5-40 HDL Cholesterol 41 mg/dL (Normal) Comments: According to ATP-III Guidelines, HDL-C >59 mg/dL is considered anegative risk factor for CHD. Triglycerides 162 mg/dL (Abnormal) Range: 0-149 Cholesterol, Total 130 mg/dL (Normal) Range: 100-199 62-Bmi-655836:06 METABOLIC PANEL, Comments: PATIENT WAS FASTINGPERFORMED BY: BoostUp LabCoSpoqaCvqkiy7186 [facility] [id number] Information: ADD [id number] AND DRAW FEE 99 6660 COMPREHENSIVE (47173) ALT (SGPT) 23 [iU]/L (Normal) Range: 0-40 [...] (Abnormal) Range: 65-99 :20 HgA1C , Office (30974) HgA1C , Office 6.8 % (Normal) Range: 4.6 - 7.1 :20 Blood Glucose , Office (72790) Blood Glucose , Office 129 (Normal) 21-Gkh-460824:38 Rapid Strep Test, Office (87173) Rapid Strep Test, Office Negative (Normal) :09 HgA1C , Office (20530) HgA1C , Office 6.9 % (Normal) Range: 4.6 - 7.1 :09 Blood Glucose , Office (53136) Blood Glucose , Office 127 (Normal) :14 METABOLIC PANEL, COMPREHENSIVE Comments: PATIENT WAS FASTINGPERFORMED BY: LabCoPalisades Medical CenterAsoxit3347 [facility] [id number] (75860) Alkaline Phosphatase, S 60 [iU]/L (Normal) Range: [...] Glucose, Serum 141 mg/dL (Abnormal) Range: 65-99 81-Qpd-14822:14 CBC WITH MANUAL DIFF Comments: PATIENT WAS FASTINGPERFORMED BY: LabDet[facility] Hospital[address] [facility] [id number] Information: [id number] (09342) Baso (Absolute) 0.0 {x10E3/uL} (Normal) Range: 0.0-0.2 [...] URINE QUANT Comments: PATIENT WAS FASTINGPERFORMED BY: AppliLogLev[facility] [id number] (39692) Microalb/Creat Ratio <.8 {mg/g_creat} (Normal) Range: 0.0-30.0 Microalbumin, Urine <1.0 ug/mL (Normal) Range: 0.0-17.0 Creatinine, Urine 124.3 mg/dL (Normal) Range: 15.0-278.0 :14 TSH (50898) Comments: PATIENT WAS FASTINGPERFORMED BY: eTukTuk6370 [facility]imoLev[facility] [id number] TSH 2.150 {uIU/mL} (Normal) Range: 0.450-4.500 Comments: Effective July 22, 2009, TSH reference interval for11 - 19 years will be changing to: 0.450 - 4.500 uIU/mLReference interval for all other ages will NOT be affected. :14 Vitamin D Hydroxy (18357) Comments: PATIENT WAS FASTINGPERFORMED BY: AppliLogLev[facility] [id number] Vitamin D, 25-Hydroxy 26.6 ng/mL (Abnormal) Range: 32.0-100.0 Comments: Recent studies consider the lower limit of 32.0 ng/mL to be athreshold for optimal health.Tom SOLIS. J Nutr. 2004;135(2):317-22. :14 LIPID PANEL (52936) Comments: PATIENT WAS FASTINGPERFORMED BY: [facility] [facility] [id number] HDL Cholesterol 42 mg/dL (Normal) Comments: According to ATP-III Guidelines, HDL-C >59 mg/dL is considered anegative risk factor for CHD. LDL Cholesterol Calc 100 mg/dL (Abnormal) Range: 0-99 LDL/HDL Ratio 2.4 {ratio_units} (Normal) Range: 0.0-3.2 Triglycerides 172 mg/dL (Abnormal) Range: 0-149 VLDL Cholesterol Edgardo 34 mg/dL (Normal) Range: 5-40 Cholesterol, Total 176 mg/dL (Normal) Range: 100-199 32-Jqx-605832:07 HgA1C , Office (35190) HgA1C , Office 6.1 % (Normal) Range: 4.6 - 7.1 40-Imu-787142:07 Blood Glucose , Office (47168) Blood Glucose , Office 232 (Normal) 68-Mfa-35532:25 Lower Respiratory Culture Comments: Clinical Information: SRC:SP PERFORMED BY: [facility] [facility] [id number] Lower Respiratory Culture Final report (Normal) Result 1 RRF (Normal) Comments: Routine respiratory marilin 69-Yez-814265:00 Influenza A, H1N1, RT PCR Comments: Clinical Information: SRC:NL PERFORMED BY: [facility] [facility] [id number] Subtype Novel H1N1 by Negative (Normal) PCR Type Influenza A by Negative (Normal) PCR Viral Final report Comments: PERFORMED BY: [facility] [facility] [id number] Culture,Rapid,Influen (Normal) Comments: Negative:No Influenza A or B detected. za 19-Scc-912882:29 CHEST, PA AND LATERAL (MT) Radiology Report See Note (Normal) Comments: Exam Number: [id number] CLINICAL:58-year-old woman with cough and shortness of [...] cardiopulmonary process. Reported By: ROSEMARIE ROBBINS M.D. 76-Pgi-257522:45 Rapid Strep Test, Office (94243) Comments: done Rapid Strep Test, Office Negative (Normal) 28-Fnd-785322:32 Rapid Flu (53076 x 2) Comments: done INFLUENZA IMMUNOASSY negative (Normal) DIRECT OPTICAL OBSERV 04-Apr-20090:00 FLU A+B DIRECT See Note (Normal) Comments: Negative test results should be confirmed by culture. Order Rapid Viral Culture for Influenzae A+B ([id number]) if clinically indicated. INFLUENZA ANTIGEN,DIRECT Presumptive NEGATIVE for Influenza A/B Antigen (See Note) 08-Wtb-132342:04 METABOLIC PANEL, COMPREHENSIVE Comments: PATIENT WAS FASTINGPERFORMED BY: LabCoPalisades Medical CenterHtqckm2856 [facility] [id number] (95710) A/G Ratio 1.6 (Normal) Range: 1.1-2.5 Albumin, [...] Sodium, Serum 141 mmol/L (Normal) Range: 135-145 49-Gsl-743653:04 MICROALBUMIN: CREATININE RATIO Comments: PATIENT WAS FASTINGPERFORMED BY: Truminim70 [facility]imoLev[facility] [id number] (24476) AND (46993) Creatinine, Urine 124.0 mg/dL (Normal) Range: 15.0-278.0 Microalb/Creat Ratio 1.5 {ug/mg_creat} (Normal) Range: 0.0-30.0 Microalbumin, Urine 1.9 ug/mL (Normal) Range: 0.0-17.0 53-Goa-391884:04 LIPID PANEL (52850) Comments: PATIENT WAS FASTINGPERFORMED BY: Truminim70 [facility]imoLev[facility] [id number] Cholesterol, Total 155 mg/dL (Normal) Range: 100-199 HDL Cholesterol 44 mg/dL (Normal) Comments: According to ATP-III Guidelines, HDL-C >59 mg/dL is considered anegative risk factor for CHD. LDL Cholesterol Calc 89 mg/dL (Normal) Range: 0-99 LDL/HDL Ratio 2.0 {ratio_units} (Normal) Range: 0.0-3.2 Triglycerides 109 mg/dL (Normal) Range: 0-149 VLDL Cholesterol Edgardo 22 mg/dL (Normal) Range: 5-40 :04 Vitamin D Hydroxy (98165) Comments: PATIENT WAS FASTINGPERFORMED BY: [facility] [facility] Otxzxm7266 [address]hl RoadDublin [place] [id number] Vitamin D, 25-Hydroxy 24.9 ng/mL (Abnormal) Range: 32.0-100.0 Comments: Recent studies consider the lower limit of 32.0 ng/mL to be athreshold for optimal health.Tom SOLIS. J Nutr. 2004;135(2):317-22. 14-Hzs-537459:04 C-REACTIVE PROTEIN (84167) Comments: PATIENT WAS FASTINGPERFORMED BY: [facility] [address] [place] [id number] C-Reactive Protein, Quant 4.4 mg/L (Normal) Range: 0.0-4.9 :04 CBC WITH MANUAL DIFF (93350) Comments: PATIENT WAS FASTINGClinical Information: ADD DRAW FEE [id number] ADD J 08943 PERFORMED BY: [facility] [facility] [place] [id number] Baso (Absolute) 0.1 {x10E3/uL} (Normal) Range: 0.0-0.2 [...] 11.7-15.0 WBC 5.0 {x10E3/uL} (Normal) Range: 4.0-10.5 57-Syz-749909:04 TSH (25037) Comments: PATIENT WAS FASTINGPERFORMED BY: [facility] [facility] [id number] TSH 1.151 {uIU/mL} (Normal) Range: 0.450-4.500 31-Tpu-417693:00 HgA1C , Office (95143) HgA1C , Office 6.2 % (Normal) Range: 4.6 - 7.1 68-Efb-105683:00 Blood Glucose , Office (25264) Blood Glucose , Office 132 (Normal) 60-Qzz-596467:39 ABDOMEN WITH IV CONTRAST Radiology Report See Note (Normal) Comments: Exam Number: [id number] CT ABDOMEN WITH CONTRAST CLINICAL STATEMENTRight upper [...] right adrenal gland. This is unchanged comparedt June 2006 and likely represents an incidental [...] anincidental adenoma. Reported By: EDILIA WHEELER M.D. 99-Cwx-929849:38 CHEST WITH CONTRAST Radiology Report See Note (Normal) Comments: Exam Number: [id number] CT OF THE CHEST WITH CONTRAST. STATEMENTCough, [...] mediastinal lymphadenopathy. Reported By: EDILIA WHEELER M.D. 38-Pgp-089384: ZEESHAN 35 U/L (Normal) Comments: LIVER FUNCTION: PLEASE CALL DR CHEN, IT PORTFOLIO MANAGER FOR DR FUENTES 46 Range: 25-115 03-Nff-663985: C-REACTIVE PROT 13.74 mg/L (Abnormal) Comments: LIVER FUNCTION: PLEASE CALL DR CHEN IT PORTFOLIO MANAGER FOR DR FUENTES 46 Range: 0.0-6.0 Comments: Test performed using the Dimension C-Reactive ProteinExtended Range assay method. This assay meets the AHA/CDC 2003 recommendations fordetermining patients at high risk for cardiovasculardisease. Reference: High risk CRP >3.0 mg/L 08-Thr-685839:46 CBCD,SMEAR DIFF BAND 1 % (Normal) Range: [...] 47-70 WBC 5.6 K/mm3 (Normal) Range: 4.4-11.0 79-Hrd-702760:46 COMP METABOLIC Comments: LIVER FUNCTION: PLEASE CALL DR CHEN, IT PORTFOLIO MANAGER FOR DR CHRISTINA. A/G 1.2 {RATIO} (Normal) [...] T PROT 7.4 g/dL (Normal) Range: 6.4-8.2 57-Euy-257433:46 D-DIMER QUANT <200 ng/mL (Normal) Comments: NORMAL D-Dimer level indicates no DVT or PE. RESULTS CALLED TO DR CHEN 09/21/08 1704 RAD HOOD.REPORT READ BACK BY SAME . :46 ESR SED RATE 29 mm/h (Normal) Range: 0-30 :46 LIPASE 239 U/L (Normal) Comments: LIVER FUNCTION: PLEASE CALL DR CHEN, IT PORTFOLIO MANAGER FOR DR CHRISTINA. Range: 114-286 27-Gxw-984681:12 HgA1C , Office (73745) HgA1C , Office 6.1 % (Normal) Range: 4.6 - 7.1 46-Hst-857911:12 Blood Glucose , Office (43732) Blood Glucose , Office 116 (Normal) 30-Rbz-397601:48 Urine Culture,Comprehensive Comments: Clinical Information: SRC:UR PERFORMED BY: [place] [id number] [facility] [id number] Result 1 MUG (Normal) Comments: Mixed urogenital [id number] Colonies/mL Urine Culture,Comprehensive Final report (Normal) 53-Rwu-074281:31 L/S SPINE,MIN 4 VIEWS (MT) Radiology Report See Note (Normal) Comments: Exam Number: [id number] LUMBAR SPINE, 5 VIEWS CLINICAL STATEMENTFollow up bone density study, question compression of L5. COMPARISONBone Dexatometry May 03, 2008. 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 Vertebral body height andalignment appears maintained. Multilevel mild degenerative discchanges are present throughout the lumbar spine with end plateosteophyte formation present. There is mini mal concavity of the Z5qouxnhtd end plate likely secondary to degenerative change [...] position orspasm. Reported By: EDILIA WHEELER M.D. 12-Jbz-24790:59 METABOLIC PANEL, COMPREHENSIVE Comments: PATIENT WAS FASTINGPERFORMED BY: [facility] [facility] [id number] (01266) A/G Ratio 1.4 (Normal) Range: 1.1-2.5 Albumin, [...] Total 3.0 g/dL (Normal) Range: 1.5-4.5 If -Moroccan >59 mL/min/1.73 Comments: Note: Persistent reduction for [...] Glucose, Serum 136 mg/dL (Abnormal) Range: 65-99 :59 CBC WITH MANUAL DIFF (10607) Comments: PATIENT WAS FASTINGClinical Information: ADD DRAW FEE 697056 ADD J 10047 PERFORMED BY: TARAS [facility] [id number] Baso (Absolute) 0.0 {x10E3/uL} (Normal) Range: 0.0-0.2 [...] FUNCTION PANEL Comments: PATIENT WAS FASTINGPERFORMED BY: TARAS [employer] [facility] [id number] (85583) Bilirubin, Direct 0.09 mg/dL (Normal) Range: 0.00-0.40 :59 LIPID PANEL (39583) Comments: PATIENT WAS FASTINGPERFORMED BY: TARAS [facility] Jzbqpr[address] [facility] [id number] Cholesterol, Total 156 mg/dL (Normal) Range: 100-199 HDL Cholesterol 43 mg/dL (Normal) Comments: According to ATP-III Guidelines, HDL-C >59 mg/dL is considered anegative risk factor for CHD. LDL Cholesterol Calc 77 mg/dL (Normal) Range: 0-99 LDL/HDL Ratio 1.8 {ratio_units} (Normal) Range: 0.0-3.2 Triglycerides 180 mg/dL (Abnormal) Range: 0-149 VLDL Cholesterol Edgardo 36 mg/dL (Normal) Range: 5-40 12-Iiu-570389:27 Urinalysis, Office (06459) UA - BILIRUBIN Negative (Normal) UA - BLOOD Non Hemolyzed Trace (Normal) UA - GLUCOSE Negative (Normal) UA - KETONES Negative mg/dL (Normal) UA - LEUKOCYTE ESTERASE Trace (Normal) UA - NITRITE Negative (Normal) UA - PH 5.0 (Normal) UA - PROTEIN Negative mg/dL (Normal) UA - SPECIFIC GRAVITY 1.025 (Normal) URINE UROBILINGN SUNNY TIMED Normal mg/dL (Normal) :58 DEXA BONE DENSITY STUDY (HP) Radiology Report See Note (Normal) Comments: Exam Number: [id number] BONE DENSITOMETRY HISTORYOsteopenia. TECHNIQUE Bone densitometry of [...] normal limits. Reported By: CHASTITY RETANA M.D. 03-Eyq-62159:35 AORTA ULTRASOUND () Radiology Report See Note (Normal) Comments: Exam Number: [id number] ULTRASOUND OF ABDOMINAL AORTA HISTORYFamily history of [...] in size. Reported By: CHASTITY RETANA M.D. 92-Muq-017567:06 URINE MEHREEN CULTURE-SUNNY COL Comments: PATIENT NOT FASTINGClinical Information: SRC:[facility] [id number] PERFORMED BY: [facility] [facility] [id number] COUNT (76537) Result 1 Proteus mirabilis Comments: 2,000 Colonies/mL [...] PATIENT WAS FASTINGClinical Information: ADD DRAW FEE 534776 ADD J 66548 PERFORMED BY: [employer] [facility] [id number] (58189) Albumin, Serum 4.0 g/dL (Normal) Range: 3.5-5.5 Alkaline Phosphatase, S 91 [iU]/L (Normal) Range: 25-150 ALT (SGPT) 18 [iU]/L (Normal) Range: 0-40 AST (SGOT) 21 [iU]/L (Normal) Range: 0-40 Bilirubin, Direct 0.11 mg/dL (Normal) Range: 0.00-0.40 Bilirubin, Total 0.4 mg/dL (Normal) Range: 0.1-1.2 Protein, Total, Serum 6.8 g/dL (Normal) Range: 6.0-8.5 :19 LIPID PANEL (52721) Comments: PATIENT WAS FASTINGPERFORMED BY: [facility] [facility] [id number] Cholesterol, Total 159 mg/dL (Normal) Range: 100-199 HDL Cholesterol 41 mg/dL (Normal) Range: 40-59 Comments: EFFECTIVE APRIL 30, 2008 the reference interval for HDL-C will be changing to: >39 mg/dL LDL Cholesterol Calc 80 mg/dL (Normal) Range: 0-99 LDL/HDL Ratio 2.0 {ratio_units} (Normal) Range: 0.0-3.2 Triglycerides 192 mg/dL (Abnormal) Range: 0-149 VLDL Cholesterol Edgardo 38 mg/dL (Normal) Range: 5-40 98-Ecd-337172:08 Urinalysis, Office (69179) Comments: done km UA - BILIRUBIN Negative (Normal) UA - BLOOD Negative (Normal) UA - GLUCOSE Negative (Normal) UA - KETONES Negative mg/dL (Normal) UA - LEUKOCYTE ESTERASE Small (Normal) UA - NITRITE Negative (Normal) UA - PH 6.0 (Normal) UA - PROTEIN Negative mg/dL (Normal) UA - SPECIFIC GRAVITY 1.015 (Normal) URINE UROBILINGN SUNNY TIMED Normal mg/dL (Normal) 99-Cwi-12635:25 HgA1C , Office (86598) HgA1C , Office 5.7 % (Normal) Range: 4.6 - 7.1 :25 Blood Glucose , Office (33502) Blood Glucose , Office 127 (Normal) 69-Own-167135:47 UNILAT LT DIAG DIGITAL & CAD Radiology Report See Note (Normal) Comments: Exam Number: [id number] MAMMOGRAM, UNILATERAL LEFT DIAGNOSTIC DIGITAL AND CAD HISTORYLeft breast microcalcifications. Full field digital images were obtained in mediolateral oblique andcraniocaudal spot views. The current [facility] There is moderately dense fibroglandular parenchyma present. [...] mammograms werealso examined with computer-aided detection software ([employer], [employer] Reported By: CHASTITY RETANA M.D. 06-Lrf-43979:10 BILAT SCRN DIGITAL & CAD Radiology Report See Note (Normal) Comments: Exam Number: [id number] MAMMOGRAM, BILATERAL SCREENING DIGITAL AND CAD HISTORYRoutine [...] mammograms werealso examined with computer-aided detection software ([employer], [employer], [employer] Reported By: CHASTITY RETANA M.D. :36 HgA1C , Office (66202) HgA1C , Office 7.4 % (Abnormal) Range: 4.6 - 7.1 :36 Blood Glucose , Office (02586) Blood Glucose , Office 168 (Normal) 45-Mbq-950241:15 COMP METABOLIC A/G 1.1 {RATIO} (Normal) Range: [...] T PROT 7.3 g/dL (Normal) Range: 6.4-8.2 72-Fho-217131:15 LIPID CHOL 165 mg/dL (Normal) Comments: <200 [...] mg/dL VLDL 27 mg/dL (Normal) Range: 5-40 90-Cax-146259:15 MICROALBUMIN,UR 6.7 mg/L (Normal) 32-Sxj-140590:15 TSH 1.71 {uIU/mL} (Normal) Range: 0.34-4.82 66-Rzu-071228:46 CBC WITH MANUAL DIFF (74629) Comments: PATIENT NOT FASTINGClinical Information: ADD [id number] ADD [id number] PERFORMED BY: [place] [id number] [facility] [id number] Baso (Absolute) 0.0 {x10E3/uL} (Normal) Range: 0.0-0.2 [...] Report See Note (Normal) Comments: Exam Number: [id number] MYOCARDIAL PERFUSION SCAN TECHNIQUEThe patient was injected [...] FLOR WEI M.D. :44 HgA1C , Office (28669) HgA1C , Office 7.2 % (Abnormal) Range: 4.6 - 7.1 :44 Blood Glucose , Office (99736) Blood Glucose , Office 141 (Normal) :48 HgA1C , Office (27037) HgA1C , Office 7.3 % (Abnormal) Range: 4.6 - 7.1 :47 Blood Glucose , Office (87051) Blood Glucose , Office 148 (Normal) 36-Pig-396014:12 COMP METABOLIC A/G 1.0 {RATIO} (Normal) Range: [...] T PROT 7.6 g/dL (Normal) Range: 6.4-8.2 32-Ool-358285:12 LIPID CHOL 171 mg/dL (Normal) Comments: <200 [...] mg/dL VLDL 34 mg/dL (Normal) Range: 5-40 73-Uij-852065:12 TSH 1.61 {uIU/mL} (Normal) Range: 0.34-4.82 44-Fvp-922725:10 CBCD,SMEAR DIFF BASOPHIL 1 % (Normal) Range: [...] Range: 4.4-11.0 :46 Blood Glucose , Office (36257) Blood Glucose , Office 163 (Normal) :24 HgA1C , Office (22918) HgA1C , Office 6.6 % (Normal) Range: 4.6 - 7.1 :24 Blood Glucose , Office (78994) Blood Glucose , Office low (Normal) :09 HgA1C , Office (24945) Comments: done HgA1C , Office 6.5 % (Normal) Range: 4.6 - 7.1 :09 Blood Glucose , Office (80062) Comments: done Blood Glucose , Office 161 [...] (Normal) Range: 0.34-4.82 :05 HgA1C , Office (79913) HgA1C , Office 7.2 % (Abnormal) Range: 4.6 - 7.1 :05 Blood Glucose , Office (95811) Blood Glucose , Office 114 (Normal) :35 [...] 11.6-14.6 WBC 7.4 K/mm3 (Normal) Range: 4.4-11.0 4-Qrc-505219:14 CHEST, PA AND LATERAL Radiology Report See Note (Normal) Comments: Exam Number: [id number] CHEST, PA AND LATERAL HISTORYShortness of breath. FINDINGSCardiac configuration is normal. There is mild overinflation of thelungs. No acute infiltrate, effusion, or pneumothora x is identified. IMPRESSIONNo acute changes noted in the lungs. Reported By: FLOR CHOWDHURY M.D. 29-Jts-586091:59 CHEST, PA AND LATERAL Radiology Report See Note (Normal) Comments: Exam Number: [id number] PA AND LATERAL CHEST HISTORY Being done [...] infiltrate identified. Reported By: FLOR CHOWDHURY M.D. 13-Ldn-261307:59 JHONNY 11607 59 U/L (Normal) Range: - Comments: Performed At: [address] [id number] 10-Yol-725315:06 JHONNY 00848 61 U/L (Normal) Range: -09-Jul-200610:06 REBECCA-D 197051 REBECCA-DIRECT 31 U/mL (Normal) Range: 0-99 Comments: Negative <100 Equivocal 100 - 120 Positive >120 09-Wjw-969264:06 C-REACTIVE PROT 7.75 mg/L (Abnormal) Range: 0.0-6.0 Comments: Test performed using the Dimension C-Reactive ProteinExtended Range assay method. This assay meets the AHA/CDC 2003 recommendations fordetermining patients at high risk for cardiovasculardisease. Reference: High risk CRP >3.0 mg/L 61-Vmt-929249:06 CBCD,SMEAR DIFF CELLS COUNTED 100 (Normal) EOS [...] 47-70 WBC 4.4 K/mm3 (Normal) Range: 4.4-11.0 46-Gck-705469:06 ESR SED RATE 5 mm/h (Normal) Range: 0-30 87-Ohr-122120:06 HISTOPL 642187 SeeNote (Normal) Comments: Result: Negative Performed At: [facility] Hcoxfb[address] [place], [place] [id number] At: [facility] [address] [id number] 14-Xik-533912:06 LDH 170 U/L (Normal) Range: 100-190 :06 RA LATEX 6502 4.4 {IU/mL} (Normal) Range: 0.0-13.9 08-Rma-232108:49 CBCD,SMEAR DIFF CELLS COUNTED 100 (Normal) EOS [...] methodology of Hgb A1C has changed to [place] BehringDimension RXL. No significant changes in patientresults are expected. The reference range remains the same. :49 MICROALB:CRE UR MALB:CREAT 1.9 {mg/g_CRE} (Normal) MICROALBUMIN,UR 2.8 mg/L (Normal) UR CREAT 143.8 mg/dL (Normal) 82-Zni-725772:49 ROUTINE UA BILIRUBIN URINE SeeNote (Normal) Comments: [...] :49 TSH 1.94 {uIU/mL} (Normal) Range: 0.34-4.82 84-Yjq-158146:31 HgA1C , Office (59579) HgA1C , Office 7.9 % (Abnormal) Range: 4.6 - 7.1 :31 Blood Glucose , Office (82037) Blood Glucose , Office 302 (Normal) Plan [...] Make follow up apt with [facility] on September 23 between 2-4 Indication: Acute [...] without abnormal finding : *Well Female Maintenance ([facility]) Indication: Encounter for gynecological examination without abnormal [...] Wheezing Cough : Follow up tomorrow with [facility] Indication: Cough Unspecified asthma with (acute) [...] DIAGNOSTIC TESTS Indication: Acute sinusitis Planned Observations CALCIFEDIOL (23881)Indication: Hypercalcemia On: 99-Nzr-455248:48 Request Cologuard - Strool Based DNA Test, CRC SCREEN (14451)Indication: Colon cancer screening (Renamed from Encounter for screening for malignant neoplasm of colon) On: 89-Fxt-554030:45 Request Cologuard - Strool Based DNA Test, CRC SCREEN (38659)Indication: Colon cancer screening (Renamed from Encounter for screening for malignant neoplasm of colon) On: 42-Vqq-289165:02 Request GLUCOSE (80528)Indication: Hypoglycemia On: 89-Qbs-904341:48 Request Cortisol,Urinary Free 24- Hour Urine (74909)Indication: Adrenal adenoma, right On: :54 Request Catecholamines,24-Hour Urine (90236)Indication: Adrenal adenoma, right On: :54 Request DHEA (DEHYDROEPIANDROSTERONE) (61995)Indication: Adrenal adenoma, right On: :51 Request METABOLIC PANEL, COMPREHENSIVE (42347)Indication: Adrenal adenoma, right On: :51 Request LIPID PANEL (51571)Indication: Hypercholesteremia On: 37-Pio-41573:23 Request HGB A1C (68570)Indication: Diabetes mellitus type II, controlled, with no complications (Renamed from Controlled type 2 diabetes mellitus without complication) On: 90-Ebz-782785:00 Request Comments: Jun 2016 1 week before apt METABOLIC PANEL, COMPREHENSIVE (57495)Indication: Hypercalcemia On: 79-Dqr-801932:03 Request GLUCOSE (57052)Indication: Type 2 or unspecified type diabetes mellitus, uncontrolled On: 67-Upd-951079:00 Request METABOLIC PANEL, COMPREHENSIVE (97813)Indication: Type 2 or unspecified type diabetes mellitus, uncontrolled On: 85-Llm-339805:28 Request CALCIFEDIOL (85154)Indication: Vitamin D deficiency, unspecified On: 87-Ccm-915467:27 Request URINALYSIS, W/ MICRO (22722)Indication: Type 2 or unspecified type diabetes mellitus, uncontrolled On: 78-Lgu-119939:18 Request MICROALBUMIN: CREATININE RATIO (68385) AND (00298)Indication: Type 2 or unspecified type diabetes mellitus, uncontrolled On: :18 Request TSH (33983)Indication: Type 2 or unspecified type diabetes mellitus, uncontrolled On: :18 Request Lipid Panel (48569)Indication: Type 2 or unspecified type diabetes mellitus, uncontrolled On: :18 Request Metabolic Panel, Comprehensive (21168)Indication: Type 2 or unspecified type diabetes mellitus, uncontrolled On: 56-Tyl-269379:18 Request HGB A1C (85963)Indication: Type 2 or unspecified type diabetes mellitus, uncontrolled On: 64-Sza-564656:14 Request Comments: 6.6 CBC W/AUTO DIFF WBC (98979)Indication: Hypertension On: :07 Request METABOLIC PANEL, COMPREHENSIVE (96652)Indication: Hypertension On: : Request Vitamin D Hydroxy (91393)Indication: Vitamin D deficiency, unspecified On: 91-Hhp-325520: Request LIPID PANEL (55279)Indication: Other and unspecified hyperlipidemia On: 29-Vxs-977158: Request Vitamin D Hydroxy (02116)Indication: Vitamin D deficiency, unspecified On: :15 Request CBC with auto diff (30264)Indication: Hypertension On: 3-Xeq-351219:14 Request TSH (20237)Indication: Hypothyroidism On: :14 Request MICROALBUMIN: CREATININE RATIO (87503) AND (00071)Indication: Type 2 or unspecified type diabetes mellitus, uncontrolled On: 2-Mfm-009568:14 Request METABOLIC PANEL, COMPREHENSIVE (05578)Indication: Hypertension On: 4-Nyw-695565:14 Request LIPID PANEL (61668)Indication: Other and unspecified hyperlipidemia On: 1-Thn-713042:13 Request MYOGLOBIN (12052)Indication: Chest pain On: :52 Request CPK MB FRACTION (23506)Indication: Chest pain On: :52 Request ASSAY, TROPONIN, QUANTITATIVE (aka Troponin I) (57321)Indication: Chest pain On: :52 Request CBC WITH MANUAL DIFF (81743)Indication: Acute exacerbation of COPD with asthma On: :52 Request CALCIFEDIOL (66897)Indication: Depression On: 70-Gkl-606291:50 Request Lipid Panel (42049)Indication: Other and unspecified hyperlipidemia On: 39-Syu-451430:50 Request TSH (85864)Indication: Hypothyroidism On: 61-Vxa-162616:49 Request URINALYSIS (73546)Indication: Hypertension On: 76-Xkd-599999:49 Request CBC WITH MANUAL DIFF (82417)Indication: Hypertension On: :49 Request Metabolic Panel, Comprehensive (02189)Indication: Hypertension On: :49 Request CBC (AUTO) (04238)Indication: Hypercalcemia On: 4-Owo-461397:06 Request UPEP (38884)Indication: Hypercalcemia On: 5-Pdh-028302:06 Request SPEP (25229)Indication: Hypercalcemia On: 1-Nam-328559:06 Request SED RATE ERYTHROCYTE (82571)Indication: Hypercalcemia On: 8-Grn-332859:06 Request CALCIUM SERUM (62965)Indication: Hypercalcemia On: 0-Ebu-745132:05 Request PARATHORMONE (98963)Indication: Hypercalcemia On: :05 Request FECAL OCCULT HGB ASSAY- tubes sent home (42341)Indication: Well woman exam with routine gynecological exam On: 46-Ngi-414928:54 Request HgA1C , Office (27689)Indication: Type 2 or unspecified type diabetes mellitus, uncontrolled On: 33-Uzq-686837:45 Request CBC WITH MANUAL DIFF (96755)Indication: Osteopenia On: 76-Zjf-615790:23 Request Vitamin D Hydroxy (02112)Indication: Vitamin D deficiency, unspecified On: 48-Mwt-341263:22 Request TSH (53841)Indication: Hypothyroidism On: 63-Ymr-823822:22 Request METABOLIC PANEL, COMPREHENSIVE (24055)Indication: Sarcoidosis On: 14-Rqn-441166:21 Request Thin prep Pap (76923)Indication: Well woman exam with routine gynecological exam On: 7-Juf-678126:16 Request FECAL OCCULT HGB ASSAY- tubes sent home (41930)Indication: Well woman exam with routine gynecological exam On: 6-Piw-614996:16 Request METABOLIC PANEL, COMPREHENSIVE (50840)Indication: Type 2 or unspecified type diabetes mellitus, uncontrolled On: 4-Dhn-565820:14 Request CBC WITH MANUAL DIFF (14240)Indication: Type 2 or unspecified type diabetes mellitus, uncontrolled On: 4-Noe-067380:14 Request MICROALBUMIN: CREATININE RATIO (85462) AND (65372)Indication: Type 2 or unspecified type diabetes mellitus, uncontrolled On: 9-Nrs-233439:14 Request Vitamin D Hydroxy (66281)Indication: Vitamin D deficiency, unspecified On: 3-Wva-671586:14 Request METABOLIC PANEL, COMPREHENSIVE (78701)Indication: Benign essential hypertension On: 6-Hmw-457215:14 Request TSH (97376)Indication: Hypothyroidism On: 5-Ehp-318685:14 Request LIPID PANEL (45580)Indication: Other and unspecified hyperlipidemia On: :14 Request HgA1C , Office (92497)Indication: Type 2 or unspecified type diabetes mellitus, uncontrolled On: 8-Mqw-008288:43 Request CBC WITH MANUAL DIFF (54105)Indication: Benign essential hypertension On: :22 Request METABOLIC PANEL, COMPREHENSIVE (06040)Indication: Benign essential hypertension On: :22 Request LIPID PANEL (26049)Indication: Other and unspecified hyperlipidemia On: :22 Request MEHREEN CULTURE-OTHER (11460)Indication: Pharyngitis, acute On: 91-Stc-078252:38 Request LIPID PANEL (65383)Indication: Other and unspecified hyperlipidemia On: :40 Request CBC WITH MANUAL DIFF (90776)Indication: DIABETES MELLITUS WITHOUT MENTION OF COMPLICATION; TYPE II OR UNSPECIFIED TYPE, NOT STATED UNCONTROLLED On: :40 Request METABOLIC PANEL, COMPREHENSIVE (13485)Indication: DIABETES MELLITUS WITHOUT MENTION OF COMPLICATION; TYPE II OR UNSPECIFIED TYPE, NOT STATED UNCONTROLLED On: 64-Kmm-228085:40 Request Vitamin D Hydroxy (13950)Indication: Vitamin D deficiency, unspecified On: 84-Wld-630863:38 Request CULTURE, SPUTUM (16886)Indication: Flu On: 46-Ctj-504078:45 Request nasal influenza swab (91718) D2Ayxzetjckx: Cough On: 5-Saw-508581:00 Request Rapid Flu (69182 x 2)Indication: Cough On: 7-Fto-730798:53 Request HEPATIC FUNCTION PANEL (35645)Indication: Other and unspecified hyperlipidemia On: :42 Request LIPID PANEL (12612)Indication: Other and unspecified hyperlipidemia On: :42 Request Vitamin D Hydroxy (52744)Indication: Vitamin D deficiency, unspecified On: :41 Request Lipase (13612)Indication: Nausea On: :41 Request Amylase (24211)Indication: Nausea On: :41 Request C-REACTIVE PROTEIN (16113)Indication: SOB (shortness of breath) on exertion On: :39 Request SED RATE ERYTHROCYTE (45548)Indication: SOB (shortness of breath) on exertion On: :39 Request METABOLIC PANEL, COMPREHENSIVE (64730)Indication: SOB (shortness of breath) on exertion On: :39 Request CBC WITH MANUAL DIFF (05361)Indication: SOB (shortness of breath) on exertion On: :39 Request D-Dimer (04475)Indication: SOB (shortness of breath) on exertion On: :39 Request TSH (67481)Indication: Hypothyroidism On: :41 Request MICROALBUMIN: CREATININE RATIO (64132) AND (56972)Indication: DIABETES MELLITUS WITHOUT MENTION OF COMPLICATION; TYPE II OR UNSPECIFIED TYPE, NOT STATED UNCONTROLLED On: :37 Request HEPATIC FUNCTION PANEL (99901)Indication: Other and unspecified hyperlipidemia On: :37 Request LIPID PANEL (33366)Indication: Other and unspecified hyperlipidemia On: :37 Request URINE MEHREEN CULTURE-SUNNY COL COUNT (12503)Indication: Urinary frequency On: 40-Ubj-423899:05 Request URINE MEHREEN CULTURE-SUNNY COL COUNT (15491)Indication: Urinary frequency On: 08-Yqc-056754:05 Request URINE MEHREEN CULTURE-SUNNY COL COUNT (54813)Indication: Urinary frequency On: 19-Cnf-938643:05 Request URINE MEHREEN CULTURE-SUNNY COL COUNT (06798)Indication: Urinary frequency On: 17-Yfw-040654:05 Request URINE MEHREEN CULTURE-SUNNY COL COUNT (51764)Indication: Urinary frequency On: 73-Lve-151577:05 Request URINE MEHREEN CULTURE-SUNNY COL COUNT (20117)Indication: Urinary frequency On: 56-Uku-998267:05 Request URINE MEHREEN CULTURE-SUNNY COL COUNT (68603)Indication: Urinary frequency On: 60-Fle-355711:05 Request MEHREEN CULTURE-OTHER (22528)Indication: Family history of aneurysm On: 41-Nub-116852:17 Request MICROALBUMIN URINE QUANT (35471)Indication: Type 2 or unspecified type diabetes mellitus, uncontrolled On: 19-Pry-19277:55 Request METABOLIC PANEL, COMPREHENSIVE (82671)Indication: Hypertension On: 48-Exi-83159:54 Request TSH (98632)Indication: Hypothyroidism On: :54 Request LIPID PANEL (54417)Indication: Other and unspecified hyperlipidemia On: :53 Request TSH (43906)Indication: Hypothyroidism On: 38-Dpj-807704:49 Request METABOLIC PANEL, COMPREHENSIVE (40601)Indication: DIABETES MELLITUS WITHOUT MENTION OF COMPLICATION; TYPE II OR UNSPECIFIED TYPE, NOT STATED UNCONTROLLED On: 75-Rlq-414468:49 Request LIPID PANEL (29284)Indication: DIABETES MELLITUS WITHOUT MENTION OF COMPLICATION; TYPE II OR UNSPECIFIED TYPE, NOT STATED UNCONTROLLED On: 24-Jrr-613257:49 Request CBC WITH MANUAL DIFF (40265)Indication: Anemia On: 07-Gzu-695461:49 Request Rapid Strep Test, Office (12087)Indication: Pharyngitis, acute On: 40-Qep-469844:27 Request Comments: neg HDL Cholesterol-Direct ([id number])Indication: Low HDL (under 40) On: 21-Uxi-328679:41 Request Comments: DO IN 3 MO LIPID PANEL ([id number])Indication: Other and unspecified hyperlipidemia On: 70-Rob-592608:54 Request URINALYSIS W/O MICRO ([id number])Indication: Hypertension On: 37-Clk-196547:54 Request TSH ([id number])Indication: Hypothyroidism On: 44-Cse-426818:54 Request METABOLIC PANEL, COMPREHENSIVE ([id number])Indication: Hypertension On: 05-Fvy-655037:54 Request CBC WITH MANUAL DIFF ([id number])Indication: Anemia On: 23-Qze-608184:54 Request TSH ([id number])Indication: Hypothyroidism On: :59 Request URINALYSIS W/O MICRO ([id number])Indication: Type 2 or unspecified type diabetes mellitus, uncontrolled On: :59 Request CBC WITH MANUAL DIFF ([id number])Indication: Type 2 or unspecified type diabetes mellitus, uncontrolled On: :59 Request MICROALBUMIN: CREATININE RATIO ([id number]) AND (85876)Indication: Type 2 or unspecified type diabetes mellitus, uncontrolled On: :58 Request METABOLIC PANEL, COMPREHENSIVE ([id number])Indication: Type 2 or unspecified type diabetes mellitus, uncontrolled On: :58 Request HgA1C , Office ([id number])Indication: Abnormal glucose tolerance test On: :35 Request Blood Glucose , Office ([id number])Indication: Abnormal glucose tolerance test On: 42-Quv-595947:35 Request Planned Encounters Medical; 3 Month FU - On: 21-Sep-2018 13:30 [facility] Dafne Jaime CNP, CNP, Mary E Planned Procedures DEXA SCAN AXIAL SKELETON ([id number])By: On: 17-May-2018 Intent Dafne Jaime CNP, CNP, Mary E SCREENING DIGITAL TOMOSYNTHESIS OF On: 17-May-2018 Intent BREAST ([id number])By: Dafne Jaime CNP, CNP, Mary E CT - LDCT CHEST ( WITHOUT CONTRAST On: 02-May-2018 Intent )By: Dafne Jaime CNP, CNP, Mary E PFT - Before and After SpiroBy: On: 02-May-2018 Intent Dafne Jaime CNP, CNP, Mary E SIX MINUTE WALK TEST ([id number])By: On: 20-Apr-2018 Intent Visit, Nurse SPIROMETRY PERFORMED ([id number])By: On: 20-Apr-2018 Intent Visit, Nurse SPIROMETRY PERFORMED ([id number])By: On: 20-Apr-2018 Intent Visit, Nurse INFUSION, NORMAL SALINE SOLUTION , On: 24-Jan-2018 Intent 1000 CC (Special Coverage Comments: lot:[id number]:IV right anticub dose:1000ml given by:carmen Shay LPN Instructions Apply. See MCM: 2049) (J7030)By: Dafne Jaime CNP, CNP, Mary E IV Needle placement (85115)By: On: 24-Jan-2018 Intent Dafne Jaime CNP, CNP, Mary E Radiology - Lumbar SpineBy: On: 23-Dec-[address] - Abdomen & Pelvis Stone On: 23-Dec-2017 Intent ProtocolBy: Yoselin Oconnell Comments: STAT R/O Kidney stones bilateral COMP EYE EXAMINATION, ESTAB PATIENT On: 09-Dec-2017 Intent ([id number])By: Yoselin Oconnell Toradol Injection, 30 mg On: 12-Jul-2017 Intent (J1885)By: Dafne Jaime CNP, CNP, Mary E Toradol Injection, 30 mg On: 07-Apr-2017 Intent (J1885)By: Dafne Jaime CNP, CNP, Mary E Flu Vaccine (Quadrivalent) [id number]: On: 24-Mar-2017 Intent Dafne Jaime CNP, CNP, Mary E Toradol Injection, 30 mg On: 24-Mar-2017 Intent (J1885)By: Dafne Jaime CNP, CNP, Mary E Rocephin Injection, 2 Gram On: 18-Nov-2016 Intent ([id number])By: Dafne Jaime CNP, CNP, Mary E Aerosol Treatment ([id number])By: Addison On: 18-Nov-2016 Intent Dafne DOUGHERTY CNP, Mary E Solu -Medrol Injection, 125 mg On: 18-Nov-2016 Intent ([id number])By: Dafne Jaime CNP, CNP, Mary E MAMMOGRAM, SCREENING, BOTH BREAST On: 19-Aug-2016 Intent ([id number])By: Dafne Jaime CNP, CNP, Mary E DEXA SCAN AXIAL SKELETON ([id number])By: On: 19-Aug-2016 Intent Dafne Jaime CNP, CNP, Mary E GROUP PULMONARY REHABILITATION WITH On: 11-Feb-2016 Intent EXERCISE ([id number])By: Dafne Jaime CNP, CNP, Mary E Six Minute Walk Assessment On: 17-Oct-2015 Intent ([id number])By: Visit, Nurse PFT - CompleteBy: Vanessa Chen MD On: 24-Sep-2015 Intent M Rocephin Injection, 2 Gram On: 21-Aug-2015 Intent (J0696)By: Dafne Jaime CNP Comments: IV 2 gramsright guagetolerated welllot [id number] 8/18as, 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 See MCM: 204) (J7030)By: Dafne Jaime CNP, CNP Radha Solu -Medrol Injection, 125 mg On: 21-Aug-2015 Intent (J2930)By: Dafne Jaime CNP Comments: lot [id number] 12/1824 mcgIMright gmas, Dafne SILVA CNP Radiology - ChestBy: Addison DOUGHERTY, On: 20-Aug-2015 Intent Dafne Druán CNP Comments: [facility] INFUSION, NORMAL SALINE SOLUTION , On: 20-Aug-2015 Intent 250 CC (J7050)By: Dafne Jaime CNP, CNP, Mary E Rocephin Injection, 2 Gram On: 20-Aug-2015 Intent (J0696)By: Dafne Jaime CNP Comments: IV 2 gramsright lyejvvf86 guagetolerated well, no redness notedlot [id number] 01/26/18as, SHIRA DOUGHERTY Radha Solu -Medrol Injection, 125 mg On: 20-Aug-2015 Intent (J2930)By: Dafne Jaime CNP Comments: SOLUMEDROLlot:[id number]:ite:lt glutroute:IMdose:125mgDEMICLINDA Pino CNP, Mary E Aerosol Treatment (07632)By: Slarb On: 20-Aug-2015 Intent Gloria SILVA Rocephin Injection, 2 Gram On: 19-Aug-2015 Intent (J0696)By: Dafne Jaime CNP Comments: [id number] hip, IM JM, CLINICAL ANALYST LADONNA Radha Solu -Medrol Injection, 125 mg On: 19-Aug-2015 Intent (J2930)By: Dafne Jaime CNP Comments: [id number] hip, IMDose-prefilled syringegiven by:DOUGLAS House CNP, Mary E Aerosol Treatment ([id number])By: Harman On: 19-Aug-2015 Intent INTERNET WEBMASTER, Gloria Solu -Medrol Injection, 125 mg On: 07-Jun-2015 Intent (J2930)By: Giovani Hutchins MD Comments: [id number]-Z hip, IMDose-prefilled syringegiven by:ASHLY PERALES signed Rocephin Injection, 2 Gram On: 07-Jun-2015 Intent (J0696)By: Giovani Hutchins MD Comments: 2.9033892778n0 grams rocephin IV22G, 1 inchSite: existing lock flushed easily before and after and then d/c for the weekendTolerated: wellno redness or swelling, no s/s infiltrationML, INTERNET WEBMASTER INFUSION, NORMAL SALINE SOLUTION , On: 07-Jun-2015 Intent 250 CC (J7050)By: Giovani Hutchins MD INFUSION, NORMAL SALINE SOLUTION , On: 06-Jun-2015 Intent 250 CC ([id number])By: Giovani Hutchins MD Rocephin Injection, 2 Gram On: 06-Jun-2015 Intent (J0696)By: Giovani Hutchins MD Comments: [id number] gramsIV Therapy lkgkigoir43H, 1 inchSite: R ac - lock flushed nicely and left in place for tomorrowTolerated: well x 1st attemptno redness or swelling, no s/s infiltrationML, INTERNET WEBMASTER Solu -Medrol Injection, 125 mg On: 06-Jun-2015 Intent (J2930)By: Giovani Hutchins MD Comments: [id number] hip, IMML, INTERNET WEBMASTER Radiology - ChestBy: Liset HUTCHINSON, On: 06-Jun-2015 Intent Giovani Comments: Acute execerbation of COPD?PNA Aerosol Treatment ([id number])By: Liset On: 06-Jun-2015 Intent Giovani HUTCHINSON Overnight Pulse OX (18180)By: Marquise On: 03-Jun-2015 Intent Jackie JHAVERI A Six Minute Walk Assessment On: 29-May-2015 Intent (44550)By: Jackie Christina DO Overnight Pulse OX ([id number])By: Marquise On: 29-May-2015 Intent Jackie JHAVERI A MAMMOGRAM, SCREENING, BOTH BREAST On: 03-May-2015 Intent ([id number])By: Jackie Christina DO Six Minute Walk Assessment On: 25-Feb-2015 Intent ([id number])By: Jackie Christina DO Overnight Pulse OX (29136)By: Marquise On: 25-Feb-2015 Jackie Mena DO BILATERAL MAMMOGRAMS ([id number])By: On: 26-Nov-2014 Intent Jackie Christina DO EKG (21358)By: Jackie Christina DO On: 26-Nov-2014 Intent Comments: ekg showed normal sinus rhythym, normal axis, no acute st/t wave changes twave inversion ant no change Solu -Medrol Injection, 125 mg On: 08-Aug-2014 Intent (J2930)By: Dafne Jaime CNP Comments: [id number], IMR hip, IMJM, CLINICAL ANALYST Dafne DOUGHERTY Rocephin Injection, 2 Gram On: 08-Aug-2014 Intent (J0696)By: Dafne Jaime CNP Comments: 9.0159268269q9 grams IV R ac, x 1 attempt - tolerated well Alisha, INTERNET WEBMASTER Dafne DOUGHERTY INFUSION, NORMAL SALINE SOLUTION , On: 08-Aug-2014 Intent 250 CC (J7050)By: Dafne Jaime CNP, CNP, Mary E IV Needle placement (50867)By: On: 07-Aug-2014 Intent Dafne Jaime CNP, CNP, Mary E Comments: 22G insyte initiated on 1st attempt w/o difficulty, no s/s redness, swelling infiltration, infusing on gravity pole at 38gtts/min, dsg dry intact, catheter removed intact- tolerated well- CTyler INTERNET WEBMASTER Solu -Medrol Injection, 125 mg On: 07-Aug-2014 Intent (J2930)By: Dafne Jaime CNP Comments: Lot:[id number]:12/2016Dose:125mgRoute:imSite:r armGiven By:Dafne Alejandro CNP INFUSION, NORMAL SALINE SOLUTION , On: 07-Aug-2014 Intent 250 CC (J7050)By: Dafne Jaime CNP, CNP, Mary E Rocephin Injection, 2 Gram On: 07-Aug-2014 Intent (J0696)By: Dafne Jaime CNP Comments: lot # [id number]- 02/26/2017site-R Median antecuberoute-IVdose- 2GCTyler INTERNET WEBMASTER LADONNA Dafne Mota Aerosol Treatment (69616)By: Addison On: 07-Aug-2014 Intent Dafne DOUGHERTY Addison TAILER OUT Dafne Mota Comments: ipitropium- tolerated well- CTyler INTERNET WEBMASTER Radiology - ChestBy: Addison DOUGHERTY, On: 06-Aug-2014 Intent RadhaNaklu Jaime CNP Dafne Mota Rocephin Injection, 2 Gram On: 06-Aug-2014 Intent (J0696)By: Addison DOUGHERTY RadhaNakul Jaime CNP Dafne Mota Solu -Medrol Injection, 125 mg On: 06-Aug-2014 Intent (J2930)By: Addison DOUGHERTY Dafne Mota Addison DOUGHERTY Dafne Mota Aerosol Treatment (09770)By: On: 31-Jul-2014 Intent Vanessa Chen MD Solu- Medrol Injection, 125mg On: 31-Jul-2014 Intent (J2930)By: Vanessa Chen MD Eprescribed prescriptions On: 31-Jul-2013 Intent (G8553)By: Ivanna Maddox Overnight Pulse OX (44177)By: Marquise On: 10-May-2013 Intent Jackie JHAVERI Spirometry (71905)By: Marquise JHAVERI, On: 02-May-2013 Intent Jackie Rondon Comments: good effort cure mild obst EKG (81067)By: Ivanna Maddox On: 02-May-2013 Intent Comments: ekg showed normal sinus rhythym, normal axis, no acute st/t wave changes no change in twave inversion ant Six Minute Walk Assessment On: 02-May-2013 Intent (47476)By: Jackie Christina DO Overnight Pulse OX (03978)By: Marquise On: 02-May-2013 Jackie Mena DO Eprescribed prescriptions On: 02-May-2013 Intent (G8553)By: Ivanna Maddox MAMMOGRAM, SCREENING, BOTH BREASTS On: 18-Apr-2013 Intent (83258)By: Jackie Christina DO Clinical Breast Examination On: 18-Apr-2013 Intent (G0101)By: Ivanna Maddox Solu- Medrol Injection, 125mg On: 26-Oct-2012 Intent (J2930)By: Jackie Christina DO Comments: Lot #[id number]-R hip, IMDose- prefilled syringegiven by:VANESA House signed Aerosol Treatment (73068)By: Marquise On: 26-Oct-2012 Jackie Mena DO Eprescribed prescriptions On: 26-Oct-2012 Intent (G8553)By: Ivanna Maddox Pulse Oximetry (75818)By: Tan, On: 26-Oct-2012 Intent Ivanna Comments: 98% Spirometry (66310)By: Abi JHAVERI On: 06-Sep-2012 Rajesh Christian Comments: mild restrictive Aerosol Treatment (27951)By: Abi On: 06-Sep-2012 Anahi Mena DO Comments: done pt tolerated well. Albuterol 0.83%-- better a/e no wheeze Solu- Medrol Injection, 125mg On: 06-Sep-2012 Intent (J2930)By: Anahi Alex DO Comments: 2ml given im lt hip lot [id number] exp 04/11 Eprescribed prescriptions On: 06-Sep-2012 Intent (G8553)By: Anahi Alex DO Pulse Oximetry (05103)By: Abi On: 06-Sep-2012 Anahi Mena DO Eprescribed prescriptions On: 22-Aug-2012 Intent (G8553)By: Ivanna Maddox Overnight Pulse OX (68895)By: Marquise On: 03-May-2012 Jackie Mena DO Comments: Patient demonstrates understanding of how to operate macine. Alisha. Eprescribed prescriptions On: 27-Apr-2012 Intent (G8553)By: Ivanna Maddox Six Minute Walk Assessment On: 01-Apr-2012 Intent (03038)By: Virgen Real LPN PNEUM VAC ADLT/IMUMNOSPR, SBC/INTRM On: 18-Mar-2012 Intent (48941)By: Jackie Christina DO Comments: Lot:[id number]:08-10-13Dose:0.5 mLRoute: Site:[facility] By:FADIA signed PFT - CompleteBy: Jackie Christina DO On: 18-Mar-2012 Intent Six Minute Walk Assessment On: 18-Mar-2012 Intent (80291)By: Jackie Christina DO Overnight Pulse OX (89251)By: Marquise On: 18-Mar-2012 Intent Jackie JHAVERI IMMUNIZ ADMNIN, 1 VAC, SNGL/COMBO On: 18-Mar-2012 Intent (19696)By: Jackie Christina DO DXA, BONE DENSITY, AXIAL SKELETON On: 18-Mar-2012 Intent (39731)By: Jackie Christina DO MAMMOGRAM, SCREENING, BOTH BREASTS On: 18-Mar-2012 Intent (28315)By: Jackie Christina DO CT - ChestBy: Jackie Christina DO On: 03-Feb-2012 Intent Solu- Medrol Injection, 125mg On: 30-Sep-2011 Intent (J2930)By: Jackie Christina DO Comments: Lot #[id number]/14Site-right [id number] by: Tiny Cox LPN Aerosol Treatment (22188)By: Marquise On: 30-Sep-2011 Intent Jackie JHAVERI Pulse Oximetry (15671)By: Tan On: 30-Sep-2011 Intent Ivanna Comments: 97% Solu -Medrol Injection, 125 mg On: 25-Sep-2011 Intent (J2930)By: Dafne Jaime CNP, CNP, Radha Pulse Oximetry (26680)By: Addison On: 25-Sep-2011 Intent TAILER OUT, Radha Addison DOUGHERTY, Radha FLU VAC, SPLIT, >3 YEARS, INTRAMUSC On: 01-Jul-2011 Intent (17011)By: Ivanna Maddox Comments: work MAMMOGRAM, SCREENING, BOTH BREASTS On: 31-Mar-2011 Intent (37377)By: Jackie Christina DO Solu -Medrol Injection, 125 mg On: 31-Mar-2011 Intent (J2930)By: Jackie Christina DO Eprescribed prescriptions On: 31-Mar-2011 Intent (Stephanie8553)By: Jackie Christina DO Solu- Medrol Injection, 125mg On: 16-Dec-2010 Intent (J2930)By: Jackie Christina DO Comments: lot # [id number]- [id number]-WIpxzc- 2ML tolerated well CHenderson INTERNET WEBMASTER Aerosol Treatment (11847)By: Marquise On: 16-Dec-2010 Intent Jackie JHAVERI Comments: tolerated well Pulse Oximetry (57498)By: Marquise JHAVERI, On: 16-Dec-2010 Intent Jackie Rondon Comments: 96% on room air Eprescribed prescriptions On: 16-Dec-2010 Intent (G8553)By: Jackie Christina DO Pulse Oximetry (19867)By: Tan, On: 15-Jul-2010 Intent Ivanna Comments: 96% TD Injection , IM (59502)By: Marquise On: 04-Jul-2010 Intent Jackie JHAVERI Comments: Lot #[id number]/12Site-R DltdDose 0.5mlgiven by: EKG (49298)By: Ivanna Maddox On: 04-Jul-2010 Intent Radiology - Lumbar SpineBy: Addison On: 12-May-2010 Intent Dafne DOUGHERTY CNP, Mary E MAMMOGRAM, SCREENING, BOTH BREASTS On: 19-Nov-2009 Intent (10855)By: Jackie Christina DO MAMMOGRAM, SCREENING, BOTH BREASTS On: 07-May-2009 Intent (86860)By: Jackie Christina DO EKG (21574)By: Ivanna Maddox On: 07-May-2009 Intent Comments: ekg showed normal sinus rhythym, normal axis, no acute st/t wave changes Aerosol Treatment (09146)By: On: 22-Apr-2009 Intent Ivanna Aly Comments: post aerosol tx, pt states i can breath a whole lot better Radiology - Chest- PA and LatBy: On: 19-Apr-2009 Intent Anahi Alex DO Pulse Oximetry (34319)By: Addison On: 04-Apr-2009 Intent Dafne DOUGHERTY CNP, Mary E Aerosol Treatment (69290)By: Marquise On: 21-Sep-2008 Intent Jer JHAVERIa A CT - ChestBy: Marquise JHAVERI Jackie A On: 21-Sep-2008 Intent Comments: please also look at right upper quadrant- do stat and call wet read Pulse Oximetry (12410)By: Tan On: 21-Sep-2008 Intent Ivanna Comments: 97% Radiology - Lumbar SpineBy: Marquise On: 14-Jun-2008 Intent DO Jackie A Comments: bone density suggest possible compression at l5 Ultrasound - AortaBy: Marquise JHAVERI, On: 24-Apr-2008 Intent Jackie A Holter Moniter (49500)By: Marquise JHAVERI, On: 24-Apr-2008 Intent Jackie A EKG (50642)By: Jackie Christina DO On: 24-Apr-2008 Intent Comments: ekg showed normal sinus rhythym, normal axis, no acute st/t wave changes negative precordial t waves == no change DXA, BONE DENSITY, AXIAL SKELETON On: 24-Apr-2008 Intent (98305)By: Jackie Christina DO INFUSION, NORMAL SALINE SOLUTION , On: 09-Nov-2007 Intent 1000CC (Special Coverage Instructions Apply. See MCM: 2049) (J7050)By: Anahi Alex DO IV Needle placement (34257)By: On: 09-Nov-2007 Intent Anahi Alex DO Comments: PLACED 22 G R ANTECUBITAL - PT DENY WELLGOOD RETURN IV Infusion (34433)By: Abi JHAVERI, On: 09-Nov-2007 Intent Anahi Nuclear Stress Test/Stress On: 17-Oct-2007 Intent SPECT/AdenosineBy: Jackie Christina DO Nuclear Stress Test/Stress On: 18-Jul-2007 Intent SPECT/AdenosineBy: Jer Christina DOa A EKG (86294)By: Jer Christina DOa Alcon On: 18-Jul-2007 Intent Comments: ekg showed normal sinus rhythym, normal axis, no acute st/t wave changes has neg twaves on precordium but are unchanged Pneumovax (53445)By: Marquise JHAVERI, On: 11-Apr-2007 Intent Jackie A EKG (01852)By: Anahi Alex DO On: 19-Jan-2007 Intent Comments: NSR NONSPECIFIC CHANGES-- Pulse Oximetry (63764)By: Abi On: 24-Sep-2006 Anahi Mena DO Comments: 98% RA Aerosol Treatment (48026)By: Abi On: 24-Sep-2006 Anahi Mena DO Comments: [...] 23-Sep-2006 Intent Anahi Alex DO Aerosol Treatment (06531)By: Abi On: 23-Sep-2006 Anahi Mena DO Comments: after aerosol- diffuse wheeze and rhonchi lil softer-- more air exchange though Pulse Oximetry (98529)By: Armond RN, On: 23-Sep-2006 Intent Karen Comments: 98% PNEUM VAC ADLT/IMUMNOSPR, SBC/INTRM On: 08-Jul-2006 Intent (31224)By: MARKIE Hayden IMMUNIZ ADMNIN, 1 VAC, SNGL/COMBO On: 08-Jul-2006 Intent (31251)By: MARKIE Hayden Planned Medications INFUSION, NORMAL SALINE SOLUTION , 1000 CC Ordered: 24-Jan-2018 Pending Ciesa TAILER OUT, Radha Ciesa TAILER OUT, Radha INFUSION, NORMAL SALINE SOLUTION , 1000 CC Ordered: 21-Aug-2015 Pending Ciesa TAILER OUT, Radha Ciesa TAILER OUT, Radha INFUSION, NORMAL SALINE SOLUTION , 250 CC Ordered: 20-Aug-2015 Pending Ciesa TAILER OUT, Radha Ciesa TAILER OUT, Radha INFUSION, NORMAL SALINE SOLUTION , 250 CC Ordered: 07-Jun-2015 Pending Giovani Hutchins MD INFUSION, NORMAL SALINE SOLUTION , 250 CC Ordered: 08-Aug-2014 Pending Ciezraa TAILER OUTDafne Ciesa TAILER OUT, Radha INFUSION, NORMAL SALINE SOLUTION , 250 CC Ordered: 07-Aug-2014 Pending Curtisa TAILER OUT, Radha Ciesa TAILER OUT, Radha INFUSION, NORMAL SALINE SOLUTION , 250 CC Ordered: 06-Jun-2015 Pending Jamaal Hutchins MDeen INJECTION, CEFTRIAXONE SODIUM, PER 250 MG Ordered: 21-Aug-2015 Pending Ciezraa TAILER OUT, Dafne Mota Ciesa TAILER OUT, Radha INJECTION, CEFTRIAXONE SODIUM, PER 250 MG Ordered: 07-Jun-2015 Pending Liset HUTCHINSON Giovani INJECTION, CEFTRIAXONE SODIUM, PER 250 MG Ordered: 06-Jun-2015 Pending Giovani Hutchins MD INJECTION, CEFTRIAXONE SODIUM, PER 250 MG Ordered: 19-Aug-2015 Pending Curtisa TAILER OUT, Radha Ciesa TAILER OUT, Radha INJECTION, CEFTRIAXONE SODIUM, PER 250 MG Ordered: 08-Aug-2014 Pending Ciezraa TAILER OUT, Dafne Mota Ciesa TAILER OUT, Radha INJECTION, CEFTRIAXONE SODIUM, PER 250 MG Ordered: 20-Aug-2015 Pending Ciezraa TAILER OUT, Radha Ciesa TAILER OUT, Radha INJECTION, CEFTRIAXONE SODIUM, PER 250 MG Ordered: 07-Aug-2014 Pending Ciesa TAILER OUT, Dafne Mota Ciesa TAILER OUT, Radha INJECTION, CEFTRIAXONE SODIUM, PER 250 MG Ordered: 06-Aug-2014 Pending Ciesa TAILER OUT, Radha Ciesa TAILER OUT, Radha INJECTION, CEFTRIAXONE SODIUM, PER 250 MG Ordered: 18-Nov-2016 Pending Ciesa TAILER OUT, Dafne Mota Ciesa TAILER OUT, Radha INJECTION, KETOROLAC TROMETHAMINE, PER 15 MG Ordered: 24-Mar-2017 Pending Ciesa TAILER OUT, Radha Ciesa TAILER OUT, Radha INJECTION, KETOROLAC TROMETHAMINE, PER 15 MG Ordered: 07-Apr-2017 Pending Ciesa TAILER OUT, Radha Ciesa TAILER OUT, Radha INJECTION, KETOROLAC TROMETHAMINE, PER 15 MG Ordered: 12-Jul-2017 Pending Ciesa TAILER OUT, Radha Ciesa TAILER OUT, Radha INJECTION, METHYLPREDNISOLONE SODIUM SUCCINATE, UP TO 125 MG Ordered: 18-Nov-2016 Pending Ciesa TAILER OUT, Radha Ciesa TAILER OUT, Radha INJECTION, METHYLPREDNISOLONE SODIUM SUCCINATE, UP TO 125 MG Ordered: 31-Mar-2011 Pending Fast DO, Jackie A INJECTION, METHYLPREDNISOLONE SODIUM SUCCINATE, UP TO 125 MG Ordered: 21-Aug-2015 Pending Ciesa TAILER OUT, Radha Ciesa TAILER OUT, Radha INJECTION, METHYLPREDNISOLONE SODIUM SUCCINATE, UP TO 125 MG Ordered: 25-Sep-2011 Pending Ciesa TAILER OUT, Radha Ciesa TAILER OUT, Radha INJECTION, METHYLPREDNISOLONE SODIUM SUCCINATE, UP TO 125 MG Ordered: 06-Aug-2014 Pending Ciesa TAILER OUT, Radha Ciesa TAILER OUT, Radha INJECTION, METHYLPREDNISOLONE SODIUM SUCCINATE, UP TO 125 MG Ordered: 07-Jun-2015 Pending Liset HUTCHINSON, Giovani INJECTION, METHYLPREDNISOLONE SODIUM SUCCINATE, UP TO 125 MG Ordered: 19-Aug-2015 Pending Ciesa TAILER OUT, Radha Ciesa TAILER OUT, Radha INJECTION, METHYLPREDNISOLONE SODIUM SUCCINATE, UP TO 125 MG Ordered: 31-Jul-2014 Pending Kita HUTCHINSON, Vanessa M INJECTION, METHYLPREDNISOLONE SODIUM SUCCINATE, UP TO 125 MG Ordered: 30-Sep-2011 Pending Fast DO, Jackie A INJECTION, METHYLPREDNISOLONE SODIUM SUCCINATE, UP TO 125 MG Ordered: 06-Jun-2015 Pending Liset HUTCHINSON, Giovani INJECTION, METHYLPREDNISOLONE SODIUM SUCCINATE, UP TO 125 MG Ordered: 08-Aug-2014 Pending Ciesa TAILER OUT, Radha Ciesa TAILER OUT, Radha INJECTION, METHYLPREDNISOLONE SODIUM SUCCINATE, UP TO 125 MG Ordered: 06-Sep-2012 Pending Abi JHAVERI, Anahi INJECTION, METHYLPREDNISOLONE SODIUM SUCCINATE, UP TO 125 MG Ordered: 07-Aug-2014 Pending Ciesa TAILER OUT, Radha Ciesa TAILER OUT, Radha INJECTION, METHYLPREDNISOLONE SODIUM SUCCINATE, UP TO 125 MG Ordered: 26-Oct-2012 Pending Fast DO Jackie A INJECTION, METHYLPREDNISOLONE SODIUM SUCCINATE, UP TO 125 MG Ordered: 20-Aug-2015 Pending Ciesa TAILER OUT, Radha Ciesa TAILER OUT, Radha INJECTION, METHYLPREDNISOLONE SODIUM SUCCINATE, UP TO 125 MG Ordered: 16-Dec-2010 Pending Fast DO Jackie A Instructions Name Dates Details [...] BLD CNT, COMPL CBC W/AUTO DIFF WBC (57488) Indication: Benign essential hypertension Other and unspecified hyperlipidemia : DISCONTINUED - LIPID PANEL (92420) Indication: Other and unspecified hyperlipidemia Hypothyroidism : DISCONTINUED - TSH (21153) Indication: Hypothyroidism Other and unspecified hyperlipidemia : DISCONTINUED - LIPID PANEL (30338) Indication: Other and unspecified hyperlipidemia DIABETES MELLITUS WITHOUT MENTION OF COMPLICATION; TYPE II OR UNSPECIFIED TYPE, NOT STATED UNCONTROLLED : DISCONTINUED - MICROALBUMIN: CREATININE RATIO (21156) AND (15051) Indication: DIABETES MELLITUS WITHOUT MENTION OF COMPLICATION; TYPE II OR UNSPECIFIED TYPE, NOT STATED UNCONTROLLED DIABETES MELLITUS WITHOUT MENTION OF COMPLICATION; TYPE II OR UNSPECIFIED TYPE, NOT STATED UNCONTROLLED : DISCONTINUED - METABOLIC PANEL, COMPREHENSIVE (84227) Indication: DIABETES MELLITUS WITHOUT MENTION OF COMPLICATION; TYPE II OR UNSPECIFIED TYPE, NOT STATED UNCONTROLLED DIABETES MELLITUS WITHOUT MENTION OF COMPLICATION; TYPE II OR UNSPECIFIED TYPE, NOT STATED UNCONTROLLED : DISCONTINUED - CBC WITH MANUAL DIFF (64684) Indication: DIABETES MELLITUS WITHOUT MENTION OF COMPLICATION; TYPE II OR UNSPECIFIED TYPE, NOT STATED UNCONTROLLED DIABETES MELLITUS WITHOUT MENTION OF COMPLICATION; TYPE II OR UNSPECIFIED TYPE, NOT STATED UNCONTROLLED : DISCONTINUED - METABOLIC PANEL, COMPREHENSIVE (11276) Indication: DIABETES MELLITUS WITHOUT MENTION OF COMPLICATION; [...] mellitus, uncontrolled : DISCONTINUED - LIPID PANEL (08119) Indication: Type 2 or unspecified type diabetes [...] Indication: Meralgia paresthetica Encounters Office Visit On: 22-Jun-2018 15:21 Encounter Reason: [...] 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 The patient has noticed dissatisfaction with life, dropping activ ities and interests, feeling emptiness in life, getting bored, poor spirits most of time, feeling sad most of time, feeling helpless, staying at home rather than doing something new or going out, having problems with memory than others and lack of energy. Other providers contributing to the patient's care are deckhand (dr. granado) and other: ([facility]- pt see's eye jun 01 2018). N [...] sent home. Mother was admitted then to [facility], [ADDITIONAL REASON] Diabetes Type II, Follow Up [...] effects and compliant with dosing regimen. Pat alexisnt sleeps 6 hours per night. Nutrition: inappropriate [...] Mammo, Routine Female and Dexa) (Renamed from [employer] V72.31 (p,m,d)) End: 19-Apr-2013 15:23 Comprehensive Internal [...] Mammo, Routine Female and Dexa) (Renamed from [employer] V72.31 (p,m,d)) Comprehensive Internal Medicine Office Visit [...] and she is feeling better from the pneumoniaEncmartin [facility]uther [facility] - [facility] Diagnosis: DIABETES MELLITUS WITHOUT MENTION OF COMPLICATION; [...] some scrambled eggs this am with her carolina. Has not been able to check blood [...] for Flu like symptoms: Son diagnosed with [id number] Diagnosis: BRONCHITIS, NOT SPECIFIED ACUTE OR CHRONIC [...] issues the patient is following up for red conklin All identified problems below ,blood sugar issues [...] he wants her to do exercise at [employer] and has her set up for activiity [...] : (180's). 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
--- OUTSIDE RECORDS SUMMARY | 2018-09-20 11:57 | XMS RPT_ITS | Continuity of Care Document ---
:1950 Author Organization [facility] Address [address] [place] [address] Phone Care Team Providers Name Role Phone Addison LADONNADafne Unavailable Juan Catherine Unavailable Rogelio Granado Unavailable [facility] Unavailable Lindsey Cheek Unavailable Unavailable Gloria Hammer [...] Status: Active Depression (F32.9, 311) Comments: Broken hearted loss of caring Status: Active Diabetes mellitus type II, controlled, [...] days Quantity: 3 {Each} Refills: 1 Ordered:19-Aug-2016 Dafne Jaime CNP, CNP Radha Start : 19-Aug-2016 Active FreeStyle Lancets Miscellaneous [...] days Quantity: 180 {Strip} Refills: 3 Ordered:12-Jul-2017 Tgezraalcon DOUGHERTY Dafne Monterroso LADONNADafne Start : 12-Jul-2017 Active FreeStyle Lite Test In Vitro Strip 1 (one) Strip bid for 0 days Quantity: 180 {Strip} Refills: 3 Ordered:12-Jul-2017 Tgezraalcon DOUGHERTY Dafne Monterroso LADONNADafne Start : 12-Jul-2017 Active GlyBURIDE 5 MG Oral Tablet 2 (two) Tablet BID for 90 days Quantity: 180 {QS} Refills: 3 Ordered:31-Dec-2017 Addison LADONNA Dafne Monterroso MEDIA MONITORDafne Start : 31-Dec-2017 Active GlyBURIDE 5 MG Oral Tablet 2 (two) Tablet BID for 0 days Quantity: 120 {Tablet} Refills: 6 Ordered:31-Dec-2017 Tgezraalcon DOUGHERTY Dafne Monterroso LADONNA Dafne Mota Start : 31-Dec-2017 Active HydroCHLOROthiazide 12.5 MG Oral Capsule 1 (one) Capsule qam for 90 days Quantity: 90 {Capsule} Refills: 3 Ordered:17-May-2018 Tgezraalcon DOUGHERTY Dafne Monterroso LADONNADafne Start : 17-May-2018 Active Irbesartan 75 MG Oral Tablet 2 (two) Tablet qhs for 90 days Quantity: 90 {Tablet} Refills: 3 Ordered:17-May-2018 Tgezraalcon DOUGHERTY Dafne Monterroso LADONNADafne Start : 17-May-2018 Active Levothyroxine Sodium 150 MCG Oral Tablet 1 (one) Tablet daily for 90 days Quantity: 90 {Tablet} Refills: 3 Ordered:17-May-2018 Addison DOUGHERTY, Dafne Casper CNP Start : 17-May-2018 Active Levothyroxine Sodium 150 MCG Oral Tablet 1 (one) Tablet daily for 90 days Quantity: 90 {QS} Refills: 3 Ordered:17-May-2018 Addison DOUGHERTY, Dafne Monterroso CNP, Dafne Mota Start : 17-May-2018 Active Metoprolol Succinate ER 100 MG Oral Tablet Extended Release 24 Hour 1 (one) Tablet daily for 90 days Quantity: 90 {Tablet} Refills: 3 Ordered:17-May-2018 Addison DOUGHERTY, Dafne Monterroso CNP, Dafne Mota Start : 17-May-2018 Active Qvar 40 MCG/ACT Inhalation Aerosol Solution 2 (two) Puff Puff bid for 0 days Quantity: 1 {Inhaler} Refills: 3 Ordered:17-Feb-2016 Slarb SHIRAGloria Start : 17-Feb-2016 Active Simvastatin 40 MG Oral Tablet 1 (one) Tablet daily for 90 days Quantity: 90 {Tablet} Refills: 3 Ordered:17-May-2018 Addison DOUGHERTY, Dafne Monterroso CNP, Dafne Mota Start : 17-May-2018 Active Simvastatin 40 MG Oral Tablet 1 (one) Tablet daily for 0 days Quantity: 90 {Tablet} Refills: 0 Ordered:17-May-2018 Addison DOUGHERTY, Dafne Monterroso CNP, Dafne Mota Start : 17-May-2018 Active Victoza 18 MG/3ML Subcutaneous Solution Pen-injector 0.6 Pre-filled Pen Syringe daily for 90 days Quantity: 1 {Box} Refills: 3 Ordered:17-May-2018 Addison DOUGHERTY, Dafne Casper CNP Start : 17-May-2018 Active Comments:take 0.6 Victoza 18 MG/3ML Subcutaneous Solution Pen-injector 0.6 Pre-filled Pen Syringe daily for 90 days Quantity: 1 {Box} Refills: 6 Ordered:17-May-2018 Addison DOUGHERTY, Dafne Casper CNP Start : 17-May-2018 Active Comments:Start 0.6mg x [...] days Quantity: 180 {Strip} Refills: 3 Ordered:27-Jan-2016 ANASTASIA HaydenAINE Start : 24-Jan-2016 End : 27-Jan-2016 Inactive [...] days Quantity: 5 {Applicator} Refills: 0 Ordered:19-Jan-2018 MARIKE Hayden Start : 12-Jul-2017 End : 19-Jan-2018 Inactive CEFADROXIL, 500MG (Oral Capsule) 1 (one) Capsule bid for 10 days Quantity: 20 {Capsule} Refills: 0 Ordered:15-Jun-2014 Addison MEDIA MONITOR, Dafne Monterroso MEDIA MONITOR, Radha Start : 15-Jun-2014 End : 25-Jun-2014 [...] Inactive Comments:05/23/07 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, 10MG (Oral Tablet) 1 tab [...] 3 Ordered:31-Dec-2017 Addison DOUGHERTY, Dafne Monterroso CNP, Radha Start : 13-Oct-2017 End : 31-Dec-2017 Inactive [...] : 09-Dec-2017 End : 19-Jan-2018 Inactive Pen [place] 31G X 6 MM Miscellaneous uad Misc [...] days Quantity: 20 {Tablet} Refills: 0 Ordered:19-Aug-2015 Dafne Jaime CNP, CNP, Mary E Start : 19-Aug-2015 End : 29-Aug-2015 Inactive [...] 24-Aug-2011 End : 03-Feb-2012 Inactive VITAMIN D, 65447ITWC (Oral Capsule) 1 (one) Capsule q week [...] days Quantity: 3 {Solution} Refills: 3 Ordered:19-Aug-2009 Marquise JHAVERI Jackie A Start : 19-Aug-2009 End : 19-Aug-2009 Discontinued DIPHENHYDRAMINE HCL, 25MG (Oral Capsule) 1 Capsule qid for 0 days Quantity: 30 {Capsule} Refills: 0 Ordered:18-Mar-2012 Ivanna Maddox Start : 18-Mar-2012 End : 18-Mar-2012 Discontinued EFFEXOR, 75MG (Oral Tablet) 1 Daily for 0 days Refills: 0 Ordered:27-Sep-2006 Anahi Alex DO End : 12-Mar-2006 Discontinued Ergocalciferol 68820 UNIT Oral Capsule 1 (one) Capsule Capsule twice weekly for 0 days Quantity: 24 {QS} Refills: 0 Ordered:24-Mar-2017 Harman SILVA Gloria Start : 21-Aug-2016 End : 24-Mar-2017 [...] days Quantity: 30 {QS} Refills: 3 Ordered:17-Feb-2016 Harman SILVA Gloria Start : 11-Feb-2016 End : 17-Feb-2016 Discontinued GUAIATUSSIN AC, 100-10MG/5ML (Oral Syrup) 1 Syrup TID prn for 0 days Quantity: 8 {Ounce(s)} Refills: 0 Ordered:18-Mar-2012 Ivanna Maddox Start : 18-Mar-2012 End : 18-Mar-2012 Discontinued Comments:eight ounces Ipratropium-Albuterol 0.5-2.5 (3) MG/3ML Inhalation Solution 1 (one) Solution Solution qid PRN for 0 days Quantity: 90 {QS} Refills: 3 Ordered:13-May-2016 Deniserb SHIRA Gloria Start : 13-Feb-2016 End : 13-May-2016 [...] Quantity: 30 {Tablet} Refills: 6 Ordered:31-Dec-2017 Addison MEDIA MONITOR, Dafne Monterroso MEDIA MONITOR, Radha Start : 31-Dec-2017 End : 31-Dec-2017 [...] days Quantity: 42 {Tablet} Refills: 0 Ordered:24-Mar-2017 SlaGloria william LPN Start : 18-Nov-2016 End : 24-Mar-2017 [...] days Quantity: 6 {Inhaler} Refills: 0 Ordered:13-May-2016 Gloria Hammer LPN Start : 11-Feb-2016 End : 13-May-2016 Discontinued [...] without Contrast Result: Comments: See Note; NOTES: [facility] Imaging Services [address] [place] [address] Chest without Contrast MR#: [id number] Acct: [id number] Name: IMANI VINSON Rep #: [id number] : 1950 F 67 From: Marine Tolliver MD PCP: Dafne Jaime NP Status: REG CLI Study: Chest without Contrast Date of Exam: 05/06/18 Exam# [id number] Ordering Dr: Dafne Jaime CARDIOLOGY CONSULTANT-C STUDY: LOW DOSE CT LUNG CANCER SCREENING REASON FOR EXAM: Female, 67 years old. OBSTRUCTIVE PULMONARY DISEASE, PT STATED HX OF SMOKING UP TO 4 PACKS PER DAY X40+ years, QUIT [id number] AGO, COPD, ASTHMA RADIATION DOSAG E (If [...] as category 2, and individuals returned to [facility] in 12 months. Category 4X: Category [...] Service support , CC: Dafne Jaime NP Project Mgr: Signed 05-May-2018 Spirometry PFT Testing Result: Comments: See Note; NOTES: [facility] Pulmonary Services/Neurology [address] [place] [address] MR#: [id number] Acct: [id number] Name: IMANI VINSON Rep #: [id number] : 0 1950 67 From: Jordy Lion DO Referring Dr: Dafne Jaime NP Status: REG CLI Ordering Dr: Date: Location: [facility] Sex: F C Spirometry PFT Testing Spirometry [...] Dictated: 05/05/18 1257 Date Transcribed: 05/05/18 1257 Project Mgr: DB Signed 25-Jan-2018 12 Lead Electrocardiogram Result: Comments: See Note; NOTES: [facility] Cardiovascular Services [address] [facility] [place] [address] 12 Lead EKG 01/22/184 MR#: [id number] Acct: [id number] Name: IMANI VINSON Naveen Re p #: [id number] : 1950 67 From: Ramiro Moreno MD [...] Confirmed by Elia UNGER MD, RAMIRO ([id number]), commissioning editor RUBI VILLATORO ([id number]) on 01/25/2018 3:09:19 PM Referred By: PEÑA Confirmed By:RAMIRO MORENO MD 01/25/18 1509 Date Ramiro Moreno MD CC: Dafne Jaime NP; Tyson Hernandez DO Signed 24-Jan-2018 Emergency Department Summary Result: Comments: See Note; NOTES: [facility] Medical Records Department [address] [place] [address] Emergency Department Summary 01/22/18 2318 MR#: [id number] Acct: [id number] Name: IMANI VINSON Rep #: [id number] : 1950 67 From: Tyson Hernandez DO [...] 2. Hypertension This note was generated with [employer] dictation software. It may contain incorrect words, [...] PRN #10 tab PRN Reason: Nausea Referrals: Dfane Jaime [Primary Care Provide r] - As soon as possible What to do if you have Problems For any increased pain, shortness of breath, bleeding, nausea or vomiting, chest pain, or any unexpected problems, contact your Primary Care Provider. Call Doctors Registry ([phone]) or report to the closest Emergency Room. Call 911 if necessary. 01/24/18 0026 <Electronically signed by Tyson Hernandez DO> Date _ Tyson Hernandez DO Cosigner Signature (If Indicated): Date CC: Dafne Jaime CARDIOLOGY CONSULTANT 30-Dec-2017 12 Lead Electrocardiogram Result: Comments: See Note; NOTES: [facility] Cardiovascular Services [address] [place] [address] 12 Lead EKG 12/25/17 1326 MR#: [id number] Acct: [id number] Name: IMANI VINSON Naveen leach #: [id number] : 1950 67 From: Ramiro Moreno MD [...] Confirme d by RAMIRO MORENO MD ([id number]), commissioning editor RUBI VILLATORO (56) on 12/30/2017 3:06:27 PM Referred By: Yoselin Oconnell Confirmed By:RAMIRO MORENO MD 12/30/17 1506 Date _ Ramiro Moreno MD CC: Dafne Jaime NP; Ivanna Puri MD Signed 25-Dec-2017 Emergency Department Summary Result: Comments: See Note; NOTES: [facility] Medical Records Department [facility] [place] [address] Emergency Department Summary 12/25/17 1538 MR#: [id number] Acct: [id number] Name: IMANI VINSON Rep #: [id number] : 1950 67 From: Ivanna Puri MD [...] while here. Repeat vital signs inc katerin a blood pressure 152/68 heart rate is 72. Her pulse ox is 95% on room air. At this time patient be discharged with a prescription for Zofran ODT. She is to follow-up with her primary care physician as soon as possible. Treatment Plan: [] Disposition: Discharge Impression: 1. Vomiting, improved 2. Cephalgia, improved This note was generated with [employer] dictation software. It may contain inco rrect [...] contact your Primary Ca re Provider. Call [facility] Registry ([phone]) or report to the closest Emergency Room. Call 911 if necessary. 12/25/17 2664 <Electronically signed by Ivanna Puri MD> Date Ivanna Puri MD Cosigner Signature (If Indicated): Date CC: Dafne Jaime NP 25-Dec-2017 Discharge Instruction Result: Comments: See Note; NOTES: [facility] Medical Records Department [address] [place] [address] Discharge Instruction 12/25/17 1542 MR#: [id number] Acct: [id number] Name: IMANI VINSON Rep #: [id number] : 1950 67 From: Ivanna Puri MD [...] your Primary Care Provider. Call Doctors Registry ([phone]) or report to the closest Emergency Room. Call 911 if necessary. 12/25/17 154 <Electronically signed by Ivanna Puri MD> D ate Ivanna Puri MD Cosigner Signature (If Indicated): Date CC: Dafne Jaime NP 25-Dec-2017 Chest 1 View (Portable) Result: Comments: See Note; NOTES: [facility] Imaging Services [address] [place] [address] Chest 1 View (Portable) MR#: [id number] Acct: [id number] Name: IMANI VINSON Rep #: [id number] : 1950 F 67 From: Walter Corbin MD PCP: Dafne Jaime NP Status: REG ER Study: Chest 1 View (Portable) Date of Exam: 12/25/17 Exam# [id number] Ordering Dr: Ivanna Puri MD STUDY: X-RAY [...] at 14:22 EDT Tel , Service support [phone], RAD/Chest 1 View (Portable) CC: Dafne Jaime NP; Ivanna Puri MD Project Mgr: Signed 23-Dec-2017 Abdomen/Pelvis without Cont Result: Comments: See Note; NOTES: [facility] Imaging Services [address] [place] [address] Abdomen/Pelvis without Cont MR#: [id number] Acct: [id number] Name: IMANI VINSON Rep #: [id number] : 1950 F 67 From: Leobardo Mckenzie MD PCP: Dafne Jaime NP Status: REG CLI Study: Abdomen/Pelvis without Cont Date of Exam: 12/23/17 Exam# [id number] Ordering Dr: Oconnell, Yoselin CARDIOLOGY CONSULTANT-C STUDY: CT ABDOMEN AND PELVIS WITHOUT CONTRAST [...] Leobardo Mckenzie MD at 12:50 EDT Tel [phone], Service support , Fax CC: Dafne Jaime NP; CARDIOLOGY CONSULTANTRhonda Oconnell Project Mgr: Signed 12-Feb-2017 Chest without Contrast Result: Comments: See Note; NOTES: [facility] Imaging Services [address] [place] [address] Chest without Contrast MR#: [id number] Acct: [id number] Name: IMANI VINSON Rep #: [id number] : 1950 F 66 From: Ace Olivia DO PCP: Dafne Jaime Status: REG CLI Study: Chest without Contrast Date of Exam: 02/12/17 Exam# [id number] Ordering Dr: Rogelio Granado MD STUDY: CT [...] Ace Olivia DO at 11:21 EDT Tel [phone], [employer] e support , CC: Dafne Jaime; Rogelio Granado MD Project Mgr: Signed 19-Jan-2017 Chest PA and Lateral Result: Comments: See Note; NOTES: [facility] Imaging Services [address] [place] [address] Schuyler 4d Chest PA and Lateral MR#: [id number] Acct: [id number] Name: IMANI VINSON Rep #: [id number] : 1950 F 66 From: Leobardo Mckenzie MD PCP: Dafne Jaime Status: REG CLI Study: Chest PA and Lateral Date of Exam: 01/19/17 Exam# [id number] Ordering Dr: Rogelio Granado MD ST UDY: [...] Leobardo Mckenzie MD at 12:43 EDT Tel [phone], Service support [phone], CC: Dafne Jaime; Rogelio Granado MD Project Mgr: Signed 17-Oct-2015 Spirometry (02000) Result: 20-Aug-2015 Chest PA and Lateral Result: Comments: See Note; NOTES: [facility] Imaging Services [address] [place] [address] Schuyler 4d Chest PA and Lateral MR#: [id number] Acct: [id number] Name: IMANI FRASER Rep #: [id number] : 1950 F 64 From: Leobardo Mckenzie MD PCP: Jackie Christina DO Status: REG CLI Study: Chest PA and Lateral Date of Exam: 08/20/15 Exam# [id number] Ordering Dr: Dafne Jaime STUDY: X-RAY CHEST [...] Leobardo Mckenzie MD at 13:08 EST Tel [phone], Service support [phone] , RAD/Chest PA and Lateral IMPRESSION: Hyperinflation. No acute abnormality is seen. Electronically Signed: Leobardo Mckenzie MD at 13:08 EST Tel [phone], Service support [phone], CC: Dafne Christina DO Project Mgr: Signed 06-Jun-2015 Chest PA and Lateral Result: Comments: See Note; NOTES: [facility] Imaging Services [address] [place] [address] Nicoledana 4d Chest PA and Lateral MR#: [id number] Acct: [id number] Name: IMANI FRASER Rep #: [id number] : 1950 F 64 From: Leobardo Mckenzie MD PCP: Jackie Christina DO Status: REG CLI Study: Chest PA and Lateral Date of Exam: 06/06/15 Exam# [id number] Ordering Dr: Giovani Hutchins STUDY: X-RAY CHEST [...] Leobardo Mckenzie MD at 14:52 EST Tel [phone], Service support [phone], 0056 RAD/Chest PA and Lateral IMPRESSION: Hyp erinflation. Electronically Signed: Leobardo Mckenzie MD at 14:52 EST Tel [phone], Service support [phone], CC: Jackie Christina DO; Nga Hutchins Project Mgr: Signed 06-Aug-2014 Chest PA and Lateral Result: Comments: See Note; NOTES: [facility] Imaging Services [address] [place] [address] Radiology Report MR#: [id number] Acct: [id number] Name: IMANI VINSON Rep #: [id number] : 1950 F 63 From: Leobardo Mckenzie MD PCP: Jackie Christina DO Status: REG CLI Study: Chest PA and Lateral Date of Exam: 08/06/14 Exam# [id number] Ordering Dr: Dafne Jaime STUDY: X-RAY CHEST [...] Leobardo Mckenzie MD at 13:03 EST Tel [phone], Service support [phone], CC: Dafne Jaime; Jackie Christina DO Project Mgr: Signed 05-May-2013 Bilat Scrn Digital & CAD Result: Comments: See Note; NOTES: [facility] Imaging Services [address] [place] [address] Breast Imaging Report MR#: [id number] Acct: [id number] Name: IMANI VINSON Naveen Rep #: [id number] : 1950 F 62 From: Leobardo Mckenzie MD PCP: Status: PRE CLI Exam# [id number] Ordering Dr: Fast, Jackie DO MAMMOGRAPHY - BILATERAL SCREENING REASON FOR [...] 05, 2013 at 2:48:1 1 PM EST [phone] Electronically Signed GP/GP If you are the referring physician and would like to consult with the radiologist who provided this interpretation, please contact Leobardo thompson M.D. at [phone]. If this radiologist is unavailable, you will be directed to another radiologist to assist. If you are a patient with a question regarding this report, please contact you r referring physician directly. Professional Interpretation Provided By: [employer], Phone , These documents contain legally protected [...] of these documents. CC: Jackie Christina DO Project Mgr: Signed Immunization Name Dates Details Pneumococcal (2 [...] smoker Vital Signs Date Test Result Details 32-Gpe-942490:33 Temperature 98.6 f Comments: Method: Temporal Pulse [...] kg/m2 Body Surface Area Calculated 2.28 m2 10-Jer-435137:33 Temperature 97.5 f Pulse 68 /min Comments: [...] 0.00 cm Results Date Description Value Details :37 Lipid Panel (62516) Comments: PATIENT WAS FASTINGPERFORMED BY: [facility]ene[facility] [id number] LDL/HDL Ratio 2.0 {ratio} (Normal) Range: 0.0-3.2 Comments: LDL/HDL Ratio Men Women 1/2 Avg.Risk 1.0 1.5 Av g.Risk 3.6 3.2 2X Avg.Risk 6.2 5.0 3X Avg.Risk 8.0 6.1 LDL Cholesterol Calc 94 mg/dL (Normal) Range: 0-99 VLDL Cholesterol Edgardo 37 mg/dL (Normal) Range: 5-40 HDL Cholesterol 46 mg/dL (Normal) Triglycerides 186 mg/dL (Abnormal) Range: 0-149 Cholesterol, Total 177 mg/dL (Normal) Range: 100-199 5-Kxt-759129:37 MICROALBUMIN: CREATININE RATIO Comments: PATIENT WAS FASTINGPERFORMED BY: [facility] [id number] (65563) AND (04027) Alb/Creat Ratio 5.9 {mg/g_creat} (Normal) Range: 0.0-30.0 Comments: Normal: 0.0 - 30.0 Albuminuria: 31.0 - 300.0 Clinical albuminuria: >300.0 Albumin, Urine 7.5 ug/mL (Normal) Creatinine, Urine 127.1 mg/dL (Normal) 2-Gzg-587038:37 TSH (11316) Comments: PATIENT WAS FASTINGPERFORMED BY: [facility] Kmudxl9[address] [facility] [id number] TSH 1.970 {uIU/mL} (Normal) Range: 0.450-4.500 8-Bdu-311117:37 CBC, Platelets & Auto Diff Comments: PATIENT WAS FASTINGPERFORMED BY: [facility] [id number] (93809) Immature Grans (Abs) 0.0 {x10E3/uL} (Normal) Range: [...] 3.77-5.28 WBC 7.1 {x10E3/uL} (Normal) Range: 3.4-10.8 6-Bbd-098134:37 Metabolic Panel, Comprehensive Comments: PATIENT WAS FASTINGPERFORMED BY: [facility] MarltonXkrkcc9386 Shanita Man [facility] [id number] (60043) ALT (SGPT) 14 [iU]/L (Normal) Range: 0-32 [...] 8-27 Glucose 98 mg/dL (Normal) Range: 65-99 2-Sdt-613572:50 HgA1C , Office (79850) HgA1C , Office 6.4 % (Normal) Range: 4.6 - 7.1 2-Tli-716531:50 Blood Glucose , Office (17704) Blood Glucose , Office 137 (Normal) 8-Zzf-333331:51 CALCIFEDIOL (42160) Comments: PATIENT NOT FASTINGPERFORMED BY: [facility] [facility] [id number] Vitamin D, 25-Hydroxy 35.3 ng/mL (Normal) Range: 30.0-100.0 Comments: Vitamin D deficiency has been defined by the [place] of[place] and an Endocrine Society practice guideline as alevel of serum 25-OH vitamin D less than 20 ng/mL (1,2).The Endocrine Society went on to further define vitamin Dinsufficiency as a level between 21 and 29 ng/mL (2).1. IOM ([place] [employer]). 2010. Dietary reference intakes for calcium and D. [place]: The National Academies Press.2. Eleni MF, Lorne MORTON, AlishaBill WALTON et al. Evaluation, treatment, and prevention of vitamin D deficiency: an Endocrine Society clinical practice guideline. JCEM. 2010; 96(7):1911-30. 3-Esk-612343:43 METANEPHRINES - URINE (21324) Comments: PATIENT NOT FASTINGPERFORMED BY: [address] [id number] Metanephrine, U,24hr 120 {ug/24_hr} (Normal) Range: 45-290 Comments: (Hypertensive) >17 years 11 months: 35 - 460 Metanephrine, Ur 60 ug/L (Normal) Normetanephr.,U,24h 404 {ug/24_hr} (Normal) Range: 82-500 Comments: (Hypertensive) >17 years 11 months: 110 - 1050 Normetanephrine, Ur 202 ug/L (Normal) 2-Gfy-120494:43 CATECHOLAMINES TOTAL, URINE Comments: PATIENT NOT FASTINGPERFORMED BY: [address] [id number] Information: [id number] (16714) Dopamine, Ur, 24hr 356 {ug/24_hr} (Normal) Range: 0-510 Dopamine, Urine 178 ug/L (Normal) Norepinephrine,U,24h 78 {ug/24_hr} (Normal) Range: 0-135 Norepinephrine, Ur 39 ug/L (Normal) Epinephrine, U, 24hr 4 {ug/24_hr} (Normal) Range: 0-20 Epinephrine, Urine 2 ug/L (Normal) 6-Tgw-082972:43 URINE VMA (75024) Comments: PATIENT NOT FASTINGPERFORMED BY: [address] [id number] VMA, Urine, 24hr 5.0 {mg/24_hr} (Normal) Range: 0.0-7.5 Comments: This test was developed and its performance characteristicsdetermined by [facility]. It has not been cleared or approvedby the Food and Drug Administration. VMA, Urine 2.5 mg/L (Normal) 54-Bjh-422969:44 URINE MEHREEN CULTURE-IDENTIFICATN Comments: PERFORMED BY: [facility] Tlxsjn[address] [facility] [id number] Information: SRC:UC (96897) Result 1 MUG (Normal) Comments: Mixed urogenital flora1,000 Colonies/mL Urine Culture,Comprehensive Final report (Normal) 52-Mhl-222799:41 Urinalysis, Office (29817) UA - LEUKOCYTE ESTERASE Moderate (Normal) UA - NITRITE Negative (Normal) URINE UROBILINGN USNNY TIMED Normal mg/dL (Normal) UA - PROTEIN Negative mg/dL (Normal) UA - PH 6.0 (Normal) UA - BLOOD Hemolyzed Trace (Normal) UA - SPECIFIC GRAVITY 1.020 (Normal) UA - KETONES Negative mg/dL (Normal) UA - BILIRUBIN Negative (Normal) UA - GLUCOSE Negative (Normal) 75-Bku-673070:10 CBC & PLATELETS (AUTO) Comments: PATIENT NOT FASTINGPERFORMED BY: [facility] [facility] [id number] (07894) Platelets 270 {x10E3/uL} (Normal) Range: 150-379 RDW 13.8 % (Normal) Range: 12.3-15.4 MCHC 33.7 g/dL (Normal) Range: 31.5-35.7 MCH 29.7 pg (Normal) Range: 26.6-33.0 MCV 88 fL (Normal) Range: 79-97 Hematocrit 40.1 % (Normal) Range: 34.0-46.6 Hemoglobin 13.5 g/dL (Normal) Range: 11.1-15.9 RBC 4.54 {x10E6/uL} (Normal) Range: 3.77-5.28 WBC 6.8 {x10E3/uL} (Normal) Range: 3.4-10.8 68-Tja-202599:10 RENAL FUNCTION PANEL (66853) Comments: PATIENT NOT FASTINGPERFORMED BY: [id number] [facility] [id number] Albumin 3.8 g/dL (Normal) Range: 3.6-4.8 Phosphorus [...] 8-27 Glucose 133 mg/dL (Abnormal) Range: 65-99 64-Mut-160930:10 PARATHORMONE (46646) Comments: PATIENT NOT FASTINGPERFORMED BY: [facility] [address]izl[address] [facility] [id number] PTH, Intact 32 pg/mL (Normal) Range: 15-65 14-Ect-491959:00 Urinalysis, Complete Comments: How was Urine Obtained? RETAIL SALES ASSOCIATE [facility] [address] [place], [address] MUCUS, URINE 0 SEEN {/hpf} [...] (Normal) CLARITY Clear (Normal) COLOR Yellow (Normal) 54-Qdg-348026:04 CBC W/Diff, Automated Comments: [facility] [address] [place], [address] PLT EST ADEQUATE (Normal) SMEAR [...] 4.2-5.4 WBC 9.7 K/mm3 (Normal) Range: 4.4-11.0 84-Xez-019301:04 Comprehensive Metabolic Profil Comments: [facility] [address] [place], [address] GAP 8 (Normal) Range: 5-15 CO2 26.0 [...] A.D.A. criteria.Please note revised GLUCOSE reference range foteueeov91/02/2018. 86-Tgy-818419:04 Lipase Comments: [facility] [address] [place], [place], [id number] LIPASE 346 U/L (Normal) Range: 73-393 86-Wgo-985150:04 Troponin-I Comments: [facility] [address] [place], [place], [id number] TROPONIN-I < 0.015 ng/mL (Normal) Comments: TROPONIN-I EXPECTED VALUES <0.045 Negative 0.045 - 0.590 Consistent with Cardiac Damage > OR = 0.600 Critical Value Not every elevated troponin is indicative of PA. T hesevalues should be used with clinical judgement in examiningthe patient's clinical picture for diagnosis. To establisha diagnosis of PA versus myocardial injury, there must be ademonstrated rise and/ or fall in the troponin values, inaddition to ischemic symptoms, EKG changes, new regionalwall motion abnormality, and/or angiographical evidence. PLEASE NOTE: REFERENCE RANGES EDITED 11/08/1712-Jan-201889-Frf-109732:27 TSH (THYROID STIMULATING Comments: January 12; PATIENT WAS FASTINGPERFORMED BY: iSirona Uazqee5234 [facility] [id number] HORMONE) (48017) TSH 1.920 {uIU/mL} (Normal) Range: 0.450-4.500 74-Rsg-781713:27 CBC & PLATELETS (AUTO) Comments: after January 12; PATIENT WAS FASTINGPERFORMED BY: iSironaVirtua MarltonGoeolw9392 [facility] [id number] Information: [id number] (18345) Platelets 288 {x10E3/uL} (Normal) Range: 150-379 RDW 13.8 % (Normal) Range: 12.3-15.4 MCHC 34.8 g/dL (Normal) Range: 31.5-35.7 MCH 30.8 pg (Normal) Range: 26.6-33.0 MCV 88 fL (Normal) Range: 79-97 Hematocrit 40.2 % (Normal) Range: 34.0-46.6 Hemoglobin 14.0 g/dL (Normal) Range: 11.1-15.9 RBC 4.55 {x10E6/uL} (Normal) Range: 3.77-5.28 WBC 6.2 {x10E3/uL} (Normal) Range: 3.4-10.8 92-Twm-829223:27 LIPID PANEL (29704) Comments: after January 12; PATIENT WAS FASTINGPERFORMED BY: iSironaVirtua MarltonNoiyim3040 [facility] [id number] LDL/HDL Ratio 2.1 {ratio} (Normal) Range: 0.0-3.2 Comments: LDL/HDL Ratio Men Women 1/2 Avg.Risk 1.0 1.5 Av g.Risk 3.6 3.2 2X Avg.Risk 6.2 5.0 3X Avg.Risk 8.0 6.1 LDL Cholesterol Calc 88 mg/dL (Normal) Range: 0-99 VLDL Cholesterol Edgardo 46 mg/dL (Abnormal) Range: 5-40 HDL Cholesterol 42 mg/dL (Normal) Triglycerides 230 mg/dL (Abnormal) Range: 0-149 Cholesterol, Total 176 mg/dL (Normal) Range: 100-199 42-Fvg-917039:27 HGB A1C (76549) Comments: do after January 12; PATIENT WAS FASTINGPERFORMED BY: [facility] Dprmko3299 Shanita Man [facility] [id number] Hemoglobin A1c 7.6 % (Abnormal) Range: 4.8-5.6 Comments: . Pre-diabetes: 5.7 - 6.4 Diabetes: >6.4 Glycemic control for adults with diabetes: <7.0 83-Cur-742109:30 Basic Metabolic Profile (BMP) Comments: [facility] [address] [place], [address] GAP 8 (Normal) Range: 5-15 CO2 25.0 [...] A.D.A. criteria.Please note revised GLUCOSE reference range ityhhmstm79/02/2018. 01-Fbl-154889:30 Carboxyhemoglobin Frac (CO) Comments: [facility] [address] [place], [place], [id number] COHb 2.1 % (Abnormal) Range: 0.0-1.5 Comments: * NON-SMOKER RANGE 1.6 - 5.0% * LIGHT SMOKER RANGE 5.1 - 9.0% * HEAVY SMOKER RANGE 52-Hlt-838461:30 CBC W/Diff, Automated Comments: [facility] [address] [place], [address] Absolute Lymph 0.66 {X10_3/ul} (Abnormal) Range: 0.83-4.51 [...] 4.2-5.4 WBC 12.9 K/mm3 (Abnormal) Range: 4.4-11.0 90-Ikf-202704:30 Lipase Comments: [facility] [address] [place], [address] LIPASE 126 U/L (Normal) Range: 73-393 18-Hkn-947481:30 Liver Profile Comments: [facility] Y[address]wh[address] [place], [address] D BILI 0.13 mg/dL (Normal) Range: 0.00-0.30 T BILI 0.50 mg/dL (Normal) Range: 0.20-1.00 ALT 32 U/L (Normal) Range: 13-56 ALK P 154 U/L (Abnormal) Range: 45-117 AST 25 U/L (Normal) Range: 15-37 GLOB 4.2 g/dL (Normal) Range: 2.2-4.2 ALB 3.5 g/dL (Normal) Range: 3.2-5.0 T PROT 7.7 g/dL (Normal) Range: 6.4-8.2 73-Ved-895594:30 Urinalysis, Complete Comments: Order Date: 12/25/17How was Urine Obtained? [facility] Ifbbbpoqya[address] [place], [place], [id number] MUCUS, URINE 0 SEEN {/hpf} (Normal) BACTERIA [...] (Abnormal) CLARITY Clear (Normal) COLOR Yellow (Normal) 03-Jvq-668535:17 Urinalysis, Office (82757) UA - LEUKOCYTE ESTERASE Negative (Normal) UA - NITRITE Negative (Normal) URINE UROBILINGN SUNNY TIMED Normal mg/dL (Normal) UA - PROTEIN Negative mg/dL (Normal) UA - PH 5.0 (Normal) Comments: 5.5 UA - BLOOD Hemolyzed Trace (Normal) UA - SPECIFIC GRAVITY 1.005 (Normal) UA - KETONES Negative mg/dL (Normal) UA - BILIRUBIN Negative (Normal) UA - GLUCOSE 500 (Abnormal) 31-Iep-816576:15 URINE MEHREEN CULTURE-SUNNY COL Comments: PATIENT NOT FASTINGPERFORMED BY: [facility] Tuxveu7796 [facility] [id number] Information: SRC:UC COUNT ([id number]) Result 1 MUG (Normal) Comments: Mixed urogenital flora10,000-25,000 colony forming units per mL Urine Final report (Normal) Culture,Comprehensive 27-Qrp-080944:48 URINE MEHREEN CULTURE-IDENTIFICATN Comments: PATIENT NOT FASTINGPERFORMED BY: [facility] Kzshic3252 [facility] [id number] Information: SRC: ([id number]) Antimicrobial MIHEAD (Normal) Comments: S = Susceptible; [...] mL (Abnormal) Urine Final report Culture,Comprehensive (Abnormal) 34-Xck-616369:24 Urinalysis, Office (90094) UA - LEUKOCYTE ESTERASE Small (Normal) UA - NITRITE Negative (Normal) URINE UROBILINGN SUNNY TIMED Normal mg/dL (Normal) UA - PROTEIN Trace mg/dL (Normal) UA - PH 6 (Abnormal) UA - BLOOD Hemolyzed Large (Normal) UA - SPECIFIC GRAVITY 1.015 (Normal) UA - KETONES Negative mg/dL (Normal) UA - BILIRUBIN Negative (Normal) UA - GLUCOSE 500 (Abnormal) 86-Vrn-249985:33 Blood Glucose , Office (02892) Blood Glucose , Office 159 (Normal) 90-Nyj-412184:33 HgA1C , Office (38945) HgA1C , Office 7.0 % (Normal) Range: 4.6 - 7.1 05-Fdl-777323:10 CBC, Platelets & Auto Diff Comments: PATIENT WAS FASTINGPERFORMED BY: [facility]aInscription House Health CenterPuodzp4096 [facility] [id number] (91626) Immature Grans (Abs) 0.0 {x10E3/uL} (Normal) Range: [...] 3.77-5.28 WBC 7.0 {x10E3/uL} (Normal) Range: 3.4-10.8 11-Scs-707227:10 HGB A1C (64198) Comments: PATIENT WAS FASTINGPERFORMED BY: iSirona Vjpqfn8364 [facility] [id number] Hemoglobin A1c 7.4 % (Abnormal) Range: 4.8-5.6 Comments: . Pre-diabetes: 5.7 - 6.4 Diabetes: >6.4 Glycemic control for adults with diabetes: <7.0 97-Hnp-256215:10 LIPID PANEL (31349) Comments: PATIENT WAS FASTINGPERFORMED BY: StreamStar6370 [facility] [id number] LDL/HDL Ratio 2.4 {ratio} (Normal) Range: 0.0-3.2 Comments: LDL/HDL Ratio Men Women 1/2 Avg.Risk 1.0 1.5 Av g.Risk 3.6 3.2 2X Avg.Risk 6.2 5.0 3X Avg.Risk 8.0 6.1 LDL Cholesterol Calc 107 mg/dL (Abnormal) Range: 0-99 VLDL Cholesterol Edgardo 28 mg/dL (Normal) Range: 5-40 HDL Cholesterol 45 mg/dL (Normal) Triglycerides 138 mg/dL (Normal) Range: 0-149 Cholesterol, Total 180 mg/dL (Normal) Range: 100-199 12-Fht-549785:10 Metabolic Panel, Comprehensive Comments: PATIENT WAS FASTINGPERFORMED BY: RCT Logiclin6370 [facility] [id number] (44065) ALT (SGPT) 15 [iU]/L (Normal) Range: 0-32 [...] 8-27 Glucose 141 mg/dL (Abnormal) Range: 65-99 06-Xrb-323801:10 MICROALBUMIN: CREATININE RATIO Comments: PATIENT WAS FASTINGPERFORMED BY: Aidhenscorner [facility] [id number] (38639) AND (77187) Alb/Creat Ratio <3.8 {mg/g_creat} (Normal) Range: 0.0-30.0 Albumin, Urine <3.0 ug/mL (Normal) Creatinine, Urine 78.1 mg/dL (Normal) 76-Vpy-425529:10 TSH (70034) Comments: PATIENT WAS FASTINGPERFORMED BY: Polwire70 [facility] [id number] TSH 2.160 {uIU/mL} (Normal) Range: 0.450-4.500 67-Ikd-406905:10 URINALYSIS W/O MICRO (48236) Comments: PATIENT WAS FASTINGPERFORMED BY: Aidhenscorner [facility] [id number] Microscopic Examination MICNIP (Normal) Comments: Microscopic not indicated and not performed. Nitrite, Urine Negative (Normal) Urobilinogen,Semi-Qn 0.2 mg/dL (Normal) Range: 0.2-1.0 Bilirubin Negative (Normal) Occult Blood Negative (Normal) Ketones Negative (Normal) Glucose 3+ (Abnormal) Protein Negative (Normal) WBC Esterase Negative (Normal) Appearance Clear (Normal) Urine-Color Yellow (Normal) pH 5.5 (Normal) Range: 5.0-7.5 Specific Amelia >=1.030 (Abnormal) Range: 1.005-1.030 46-Lrg-316284:17 HGB A1C (29401) Comments: today; PATIENT NOT FASTINGPERFORMED BY: [facility]6370 [facility] [id number] Hemoglobin A1c 7.4 % (Abnormal) Range: 4.8-5.6 Comments: . Pre-diabetes: 5.7 - 6.4 Diabetes: >6.4 Glycemic control for adults with diabetes: <7.0 80-Fgm-168327:14 TSH (THYROID STIMULATING Comments: PATIENT WAS FASTINGPERFORMED BY: [place] 6326670 [facility] [id number] HORMONE) (34643) TSH 2.750 {uIU/mL} (Normal) Range: 0.450-4.500 64-Asm-970137:14 Lipid Panel (82401) Comments: PATIENT WAS FASTINGPERFORMED BY: [facility]6370 [facility] [id number] LDL/HDL Ratio 2.0 {ratio_units} (Normal) Range: 0.0-3.2 Comments: LDL/HDL Ratio Men Women 1/2 Avg.Risk 1.0 1.5 Av g.Risk 3.6 3.2 2X Avg.Risk 6.2 5.0 3X Avg.Risk 8.0 6.1 LDL Cholesterol Calc 96 mg/dL (Normal) Range: 0-99 VLDL Cholesterol Edgardo 22 mg/dL (Normal) Range: 5-40 HDL Cholesterol 49 mg/dL (Normal) Triglycerides 110 mg/dL (Normal) Range: 0-149 Cholesterol, Total 167 mg/dL (Normal) Range: 100-199 57-Fjc-418421:14 CALCIFEDIOL (00239) Comments: PATIENT WAS FASTINGPERFORMED BY: [facility]6370 [facility] [id number] Vitamin D, 25-Hydroxy 30.7 ng/mL (Normal) Range: 30.0-100.0 Comments: Vitamin D deficiency has been defined by the [place] of[place]icine and an Endocrine Society practice guideline as alevel of serum 25-OH vitamin D less than 20 ng/mL (1,2).The Endocrine Society went on to further define vitamin Dinsufficiency as a level between 21 and 29 ng/mL (2).1. IOM ([place] of Medicine). 2010. Dietary reference intakes for calcium and D. [place]: The National Academies Press.2. Eleni MF, Lorne MORTON, Dayron WALTON, et al. Evaluation, treatment, and prevention of vitamin D deficiency: an Endocrine Society clinical practice guideline. JCEM. 2010; 96(7):1911-30. 49-Dya-135569:14 Metabolic Panel, Comprehensive Comments: PATIENT WAS FASTINGPERFORMED BY: [facility] [id number] (95889) ALT (SGPT) 11 [iU]/L (Normal) Range: 0-32 [...] Glucose, Serum 150 mg/dL (Abnormal) Range: 65-99 76-Hkn-614947:14 HGB A1C (80094) Comments: PATIENT WAS FASTINGPERFORMED BY: Polwire70 [facility] [id number] Hemoglobin A1c 6.3 % (Abnormal) Range: 4.8-5.6 Comments: . Pre-diabetes: 5.7 - 6.4 Diabetes: >6.4 Glycemic control for adults with diabetes: <7.0; ADDENDA: TADEO 19-Jan-201712:28 Angiotensin Convert Enzyme Comments: [facility] (refer to report for specific site)refer to report for address and phone number JHONNY [phone] U/L (Normal) Range: 14-82 Comments: Performed at: - [facility] [id number] Director: Jarrell Collazo PhD, Phone: [phone]; ADDENDA: Dr Granado 85-Hcj-019003:28 Erythrocyte Sed Rate Comments: [facility] [address] [place], [address] SED RATE 6 mm/h (Normal) Range: 0-30 30-Qwi-632005:35 CBC, Platelets & Auto Diff Comments: PATIENT NOT FASTINGPERFORMED BY: [facility] [address] [id number] (76296) Immature Grans (Abs) 0.0 {x10E3/uL} (Normal) Range: [...] 3.77-5.28 WBC 6.5 {x10E3/uL} (Normal) Range: 3.4-10.8 63-Pbh-354520:35 HGB A1C (54698) Comments: PATIENT NOT FASTINGPERFORMED BY: [facility] [id number] Hemoglobin A1c 6.7 % (Abnormal) Range: 4.8-5.6 Comments: . Pre-diabetes: 5.7 - 6.4 Diabetes: >6.4 Glycemic control for adults with diabetes: <7.0 :35 Metabolic Panel, Basic Comments: PATIENT NOT FASTINGPERFORMED BY: [facility] [id number] (30847) Calcium, Serum 10.6 mg/dL (Abnormal) Range: 8.7-10.3 [...] Glucose, Serum 85 mg/dL (Normal) Range: 65-99 54-Yir-731611:29 Microscopic Examination Comments: PATIENT WAS FASTINGPERFORMED BY: [facility] [id number] Bacteria Few (Normal) Mucus Threads Present (Normal) Cast Type Hyaline casts (Normal) Casts Present {/lpf} (Abnormal) Epithelial Cells (non renal) 0-10 {/hpf} (Normal) Range: 0 - 10 RBC 0-2 {/hpf} (Normal) Range: 0 - 2 WBC 0-5 {/hpf} (Normal) Range: 0 - 5 :29 URINALYSIS (11232) Comments: PATIENT WAS FASTINGPERFORMED BY: [facility] [id number] Microscopic Examination See below: (Normal) Comments: Microscopic was indicated and was performed. Nitrite, Urine Negative (Normal) Urobilinogen,Semi-Qn 0.2 mg/dL (Normal) Range: 0.2-1.0 Bilirubin Negative (Normal) Occult Blood Negative (Normal) Ketones Negative (Normal) Glucose Negative (Normal) Protein Trace (Normal) WBC Esterase 1+ (Abnormal) Appearance Clear (Normal) Urine-Color Yellow (Normal) pH 6.0 (Normal) Range: 5.0-7.5 Specific Amelia 1.027 (Normal) Range: 1.005-1.030 :29 MICROALBUMIN: CREATININE RATIO Comments: PATIENT WAS FASTINGPERFORMED BY: [facility] [id number] (31990) AND (54596) Microalb/Creat Ratio 11.0 {mg/g_creat} (Normal) Range: 0.0-30.0 Microalbumin, Urine 29.4 ug/mL (Normal) Creatinine, Urine 266.4 mg/dL (Normal) 53-Vgd-230695:29 CALCIFEDIOL (60369) Comments: PATIENT WAS FASTINGPERFORMED BY: Polwire70 [facility] [id number] Vitamin D, 25-Hydroxy 29.5 ng/mL (Abnormal) Range: 30.0-100.0 Comments: Vitamin D deficiency has been defined by the [place] ofMedicine and an Endocrine Society practice guideline as alevel of serum 25-OH vitamin D less than 20 ng/mL (1,2).The Endocrine Society went on to further define vitamin Dinsufficiency as a level between 21 and 29 ng/mL (2).1. IOM ([place] of Medicine). 2010. Dietary reference intakes for calcium and D. [place]: The National Academies Press.2. Eleni MF, Lorne MORTON, Dayron WALTON, et al. Evaluation, treatment, and prevention of vitamin D deficiency: an Endocrine Society clinical practice guideline. JCEM. 2010; 96(7):1911-30. 33-Tdf-243466:29 Lipid Panel (48911) Comments: PATIENT WAS FASTINGPERFORMED BY: iSironaVirtua MarltonTubbjz7976 [facility] [id number] LDL/HDL Ratio 1.9 {ratio_units} (Normal) Range: 0.0-3.2 [...] Panel, Comprehensive Comments: PATIENT WAS FASTINGPERFORMED BY: iSironaVirtua MarltonKuzvff8814 [facility] [id number] (26677) ALT (SGPT) 14 [iU]/L (Normal) Range: 0-32 [...] Glucose, Serum 77 mg/dL (Normal) Range: 65-99 44-Xgi-037328:29 CBC, Platelets & Auto Diff Comments: PATIENT WAS FASTINGPERFORMED BY: LabCoVirtua MarltonMwkrly1581 [facility] [id number] (32668) Immature Grans (Abs) 0.0 {x10E3/uL} (Normal) Range: [...] 6.6 {x10E3/uL} (Normal) Range: 3.4-10.8 :29 TSH (20579) Comments: PATIENT WAS FASTINGPERFORMED BY: iSironaVirtua MarltonVloyun1620 [facility] [id number] TSH 2.240 {uIU/mL} (Normal) Range: 0.450-4.500 :29 HGB A1C (81259) Comments: PATIENT WAS FASTINGPERFORMED BY: [facility]6370 [facility] [id number] Hemoglobin A1c 6.7 % (Abnormal) Range: 4.8-5.6 Comments: . Pre-diabetes: 5.7 - 6.4 Diabetes: >6.4 Glycemic control for adults with diabetes: <7.0 14-Xat-886984:23 HGB A1C (91247) Comments: PATIENT NOT FASTINGPERFORMED BY: [facility]6370 [facility] [id number] Hemoglobin A1c 6.4 % (Abnormal) Range: 4.8-5.6 Comments: . Pre-diabetes: 5.7 - 6.4 Diabetes: >6.4 Glycemic control for adults with diabetes: <7.0 77-Tsv-007463:06 Blood Glucose , Office (59488) Blood Glucose , Office 84 (Normal) : Hemoglobin A1c 6.7 % (Abnormal) Comments: PATIENT NOT FASTINGPERFORMED BY: [facility]6370 [facility] [id number] Information: [id number] [id number] Range: 4.8-5.6 Comments: . Pre-diabetes: 5.7 - 6.4 Diabetes: >6.4 Glycemic control for adults with diabetes: <7.0 :13 HgA1C , Office (81618) HgA1C , Office 6.6 % (Normal) Range: 4.6 - 7.1 :07 Blood Glucose , Office (56766) Blood Glucose , Office 97 (Normal) :51 HgA1C , Office (75735) HgA1C , Office 6.9 % (Normal) Range: 4.6 - 7.1 :51 Blood Glucose , Office (65277) Blood Glucose , Office 129 (Normal) 87-Nqn-385957:35 Sputum Culture (62261) Comments: PATIENT NOT FASTINGPERFORMED BY: [facility]6370 [facility] [id number] Information: [id number] Result 1 RRF (Normal) Comments: Routine respiratory marilin Lower Respiratory Culture Final report (Normal) :10 Rapid Flu (09514 x 2) Comments: neg Influenza A Ag neg (Normal) 4-Rxd-254303:31 Vitamin D Hydroxy (75148) Comments: PATIENT WAS FASTINGPERFORMED BY: [facility]6370 [facility] [id number] Vitamin D, 25-Hydroxy 34.0 ng/mL (Normal) Range: 30.0-100.0 Comments: Vitamin D deficiency has been defined by the [place] ofMedicine and an Endocrine Society practice guideline as alevel of serum 25-OH vitamin D less than 20 ng/mL (1,2).The Endocrine Society went on to further define vitamin Dinsufficiency as a level between 21 and 29 ng/mL (2).1. IOM ([place] of Medicine). 2010. Dietary reference intakes for calcium and D. [place]: The National Academies Press.2. Eleni MF, Lorne MORTON, Dayron WALTON, et al. Evaluation, treatment, and prevention of vitamin D deficiency: an Endocrine Society clinical practice guideline. JCEM. 2010; 96(7):1911-30. :31 Amylase (17699) Comments: PATIENT WAS FASTINGPERFORMED BY: [facility] Oismkk2750 [address] [facility] [place] [id number] Amylase, Serum 32 U/L (Normal) Range: 31-124 :31 Lipase (01199) Comments: PATIENT WAS FASTINGPERFORMED BY: [facility] Tpxpuw4690 [facility] [facility] [place] [id number] Lipase, Serum 47 U/L (Normal) Range: 0-59 :31 LIPID PANEL (20408) Comments: PATIENT WAS FASTINGPERFORMED BY: [facility] Jmmrpm4098 [address] [facility] HospitalChu [facility]Central [facility] [id number] LDL/HDL Ratio 1.7 {ratio_units} (Normal) Range: 0.0-3.2 [...] 155 mg/dL (Normal) Range: 100-199 :31 TSH (74158) Comments: PATIENT WAS FASTINGPERFORMED BY: [facility] Zsfioo5028 Die[address] [facility] [place] [id number] TSH 1.140 {uIU/mL} (Normal) Range: 0.450-4.500 :31 METABOLIC PANEL, Comments: PATIENT WAS FASTINGPERFORMED BY: [facility] Phubcr6806 [address] [facility] [id number] Information: [id number] [facility] (45436) ALT (SGPT) 20 [iU]/L (Normal) Range: 0-32 [...] (Normal) Range: 65-99 :12 HgA1C , Office (64890) HgA1C , Office 6.4 % (Normal) Range: 4.6 - 7.1 :21 HgA1C , Office (12705) HgA1C , Office 6.8 % (Normal) Range: 4.6 - 7.1 :21 Blood Glucose , Office (13195) Blood Glucose , Office 122 (Normal) :33 CBC W/Diff, Automated Comments: Test performed at:[facility] Xzulkdgksk[address] [place] [address] Absolute Lymph 1.21 {X10_3/ul} (Normal) [...] 4.2-5.4 WBC 6.0 K/mm3 (Normal) Range: 4.4-11.0 24-Qdk-765317:33 Comprehensive Metabolic Profil Comments: Test performed at:[facility] Whwbeabzec1743 [facility] [place] [address] GAP 8 (Normal) Range: 5-15 [...] Comments: Please note revised CREATININE reference range gfruzevxw86/22/2015. BUN 13 mg/dL (Normal) Range: 7-18 GLU 84 mg/dL (Normal) Range: 70-110 73-Sjs-310471:33 Lipid Profile Comments: Test performed at:[facility] [address] [place] [address] ; non-emergent till apt VLDL [...] 200-240 mg/dL Borderline >240 mg/dL High Risk 17-Ujv-544050:33 Microalb:Creat Ratio,Random UR Comments: Test performed at:[facility] Toqjitnpmf7033 [facility] [place] [address] MALB:CREAT Test not performed {mg/g_CRE} (Normal) MICROALBUMIN,UR < 5.0 mg/L (Normal) UR CREAT 179.00 mg/dL (Normal) 97-Xvl-112812:33 Thyroid Stim Hormone (TSH) Comments: Test performed at:[facility] [address]hs[address] [place] [address] TSH 0.84 {uIU/mL} (Normal) Range: 0.358-3.74 96-Eye-353057:33 Vitamin D,25 Hydroxy Comments: Test performed at:[facility] [address] [place] [address] Vitamin D 25-OH 23.5 ng/mL (Normal) Comments: Vitamin D 25(OH) Status Range Deficiency <20 ng/mL (50nmol/L) Insuffciency 20 - 30 ng/mL (50 - 75 nmol/L) Sufficiency 30 - 100 ng/mL (75 - 250 nmol/L) Toxicity >100 ng/mL (>250 nmol/L) 8-Ttx-957881:34 HgA1C , Office (22839) HgA1C , Office 7.0 % (Normal) Range: 4.6 - 7.1 6-Jvx-799469:00 CBC W/Diff, Automated Comments: Test performed at:[facility] Fqy[address] [place] [address] Absolute Lymph 2.03 {X10_3/ul} (Normal) Range: [...] 4.2-5.4 WBC 9.1 K/mm3 (Normal) Range: 4.4-11.0 7-Jgs-635172:00 CK-MB Quantitative and Index Comments: 'TROP' Serial specimen #1, #2, #3, or #4: 1'CKMB' Serial Specimen #1, #2 or #3? 1Test performed at:[facility] [address] [place] [address] CPKMB 1.7 ng/mL (Normal) Range: 0.0-5.0 Comments: CK-MB and RI Interpretation MB Relative Index Non-AMI <or= 5 NA Indeterminate > 5 <or= 4 AMI > 5 > 4 CPK TOTAL 137 U/L (Normal) Range: 26-192 7-Gyt-370478:00 Myoglobin, Serum Comments: Test performed at:[facility] [address] [place] [address] Myoglobin, Ser 149 ng/mL (Abnormal) Range: 25-58 Comments: Performed at: - [facility] [id number] Director: Jonathan Majano PhD, Phone: [phone] 5-Lms-944845:00 Troponin-I Comments: 'TROP' Serial specimen #1, #2, #3, or #4: 1'CKMB' Serial Specimen #1, #2 or #3? 1Test performed at:[facility] [address] [place] [address] TROPONIN-I < 0.02 ng/mL (Normal) Comments: TROPONIN-I EXPECTED VALUES <0.05 NEGATIVE 0.06 - 0.59 AT RISK OF PA > OR = 0.60 SUGGEST PA 4-San-691925:46 Rapid Flu (13376 x 2) Influenza A Ag n (Normal) 08-Hzh-158024:30 Culture, Wound Comments: Test performed at:[facility] [address]dpuhah[address] [place] [address] CUW See Note (Normal) Comments: Gram StainGram [...] S(NF) indicates non-formulary drug at [facility]. Approval by Infectious Disease Specialist required before non-formulary dr rajani may be ordered and/or dispensed. * CLSI guidelines does not recommend testing of cephalosporins. This interpretation is deduced from Beta- lactam/penicillin results. 07-Aca-895695:20 WCGLU 81 mg/dL (Normal) Range: 70-110 81-Xnk-879017:20 WCLIPID VLDL 34 mg/dL (Normal) Range: 5-40 [...] CHOL 178 mg/dL (Normal) Comments: <200 mg/dL Bqhihxwpy498-134 mg/dL Borderline>240 mg/dL High Risk 8-Lsh-250304:50 MUM < 0.80 AU (Normal) Range: 0.00-0.79 Comments: Negative < 0.80Borderline 0.80 - 1.20Positive > 1.20Note: The presence of IgM specific antibody should beinterpreted in conjunction with the patient's clinicalhistory and exposure risk when an acute infection issuspected.Performed at: [facility] [address] [id number] Director: Rafita Cruz MD, Phone: [phone] at: [address] [id number] Director: Jj Caballero MD, Phone: [phone] 7-Rhp-197427:50 RUBEOG > 300.0 AU/mL (Normal) Comments: Negative <25.0Equivocal 25.0 - 29.9Positive >29.9Presence of antibodies to Rubeola is presumptive evidenceof immunity except when acute infection is suspected. [id number] RUBG > 500.0 {IU/mL} (Normal) Comments: Antibody results Interpretation of Immune Status< 5 IU/ml Presumed Non-immune5 - < 10 IU/ml Equivocal> or = 10 IU/ml Presumed Immune 01-Nov-20139:26 MICROALBUMIN: CREATININE RATIO Comments: PATIENT WAS FASTINGPERFORMED BY: [facility] [id number] ([id number]) AND ([id number]) Microalb/Creat Ratio 3.9 {mg/g_creat} (Normal) Range: 0.0-30.0 Creatinine, Urine 177.5 mg/dL (Normal) Range: 15.0-278.0 Microalbumin, Urine 7.0 ug/mL (Normal) Range: 0.0-17.0 :26 CBC WITH MANUAL DIFF Comments: PATIENT WAS FASTINGPERFORMED BY: [address] [id number] Information: [id number] ([id number]) Immature Grans (Abs) 0.0 {x10E3/uL} (Normal) Range: [...] COMPREHENSIVE Comments: PATIENT WAS FASTINGPERFORMED BY: [id number] [id number] ([id number]) ALT (SGPT) 22 [iU]/L (Normal) Range: 0-32 [...] (Abnormal) Range: 65-99 :26 Vitamin D Hydroxy (20980) Comments: PATIENT WAS FASTINGPERFORMED BY: LabCoVirtua MarltonSeybaw8964 [facility] [id number] Vitamin D, 25-Hydroxy 32.9 ng/mL (Normal) Range: 30.0-100.0 Comments: Vitamin D deficiency has been defined by the [place] ofMedicine and an Endocrine Society practice guideline as alevel of serum 25-OH vitamin D less than 20 ng/mL (1,2).The Endocrine Society went on to further define vitamin Dinsufficiency as a level between 21 and 29 ng/mL (2).1. IOM ([place] of Medicine). 2010. Dietary reference intakes for calcium and D. [place]: The National Academies Press.2. Eleni MF, Lorne NC, Dayron WALTON, et al. Evaluation, treatment, and prevention of vitamin D deficiency: an Endocrine Society clinical practice guideline. JCEM. 2010; 96(7):1911-30. :26 LIPID PANEL (26440) Comments: PATIENT WAS FASTINGPERFORMED BY: LabCoInscription House Health CenterFdvyez2107 [facility] [id number] LDL/HDL Ratio 1.6 {ratio_units} (Normal) Range: 0.0-3.2 LDL Cholesterol Calc 74 mg/dL (Normal) Range: 0-99 HDL Cholesterol 46 mg/dL (Normal) Comments: According to ATP-III Guidelines, HDL-C >59 mg/dL is considered anegative risk factor for CHD. VLDL Cholesterol Edgardo 22 mg/dL (Normal) Range: 5-40 Triglycerides 112 mg/dL (Normal) Range: 0-149 Cholesterol, Total 142 mg/dL (Normal) Range: 100-199 :26 TSH (29474) Comments: PATIENT WAS FASTINGPERFORMED BY: [facility] Atjnvu5594 [facility] [id number] TSH 1.560 {uIU/mL} (Normal) Range: 0.450-4.500 8-Gou-028886:02 HgA1C , Office (62839) HgA1C , Office 6.6 % (Normal) Range: 4.6 - 7.1 :41 HgA1C , Office (83982) HgA1C , Office 6.4 % (Normal) Range: 4.6 - 7.1 20-Vkf-553569:30 Microscopic Examination Comments: PATIENT WAS FASTINGPERFORMED BY: [facility] Nnbgdh8859 [facility] [id number] Bacteria Few (Normal) Mucus Threads Present (Normal) Epithelial Cells (non renal) 0-10 {/hpf} (Normal) Range: 0 - 10 RBC 0-3 {/hpf} (Normal) Range: 0 - 3 WBC 0-5 {/hpf} (Normal) Range: 0 - 5 13-Ojd-296479:30 LIPID PANEL (89357) Comments: PATIENT WAS FASTINGPERFORMED BY: [facility] Ikkykj5608 [facility] [id number] LDL/HDL Ratio 2.3 {ratio_units} (Normal) Range: 0.0-3.2 LDL Cholesterol Calc 103 mg/dL (Abnormal) Range: 0-99 VLDL Cholesterol Edgardo 30 mg/dL (Normal) Range: 5-40 HDL Cholesterol 45 mg/dL (Normal) Comments: According to ATP-III Guidelines, HDL-C >59 mg/dL is considered anegative risk factor for CHD. Cholesterol, Total 178 mg/dL (Normal) Range: 100-199 Triglycerides 148 mg/dL (Normal) Range: 0-149 88-Pma-529564:30 Vitamin D Hydroxy (63255) Comments: PATIENT WAS FASTINGPERFORMED BY: iSironaVirtua MarltonThaxfg7846 [facility] [id number] Vitamin D, 25-Hydroxy 35.6 ng/mL (Normal) Range: 30.0-100.0 Comments: Vitamin D deficiency has been defined by the [place] ofMedicine and an Endocrine Society practice guideline as alevel of serum 25-OH vitamin D less than 20 ng/mL (1,2).The Endocrine Society went on to further define vitamin Dinsufficiency as a level between 21 and 29 ng/mL (2).1. IOM ([place] of Medicine). 2010. Dietary reference intakes for calcium and D. [place]: The National Academies Press.2. Eleni MF, Lorne NC, Dayron WALTON, et al. Evaluation, treatment, and prevention of vitamin D deficiency: an Endocrine Society clinical practice guideline. JCEM. 2010; 96(7):1911-30. 37-Bff-426726:30 URINALYSIS, W/ MICRO (09922) Comments: PATIENT WAS FASTINGPERFORMED BY: LabBardakovkaVirtua MarltonPycrvu6543 [facility] [id number] Microscopic Examination See below: (Normal) Nitrite, Urine Negative (Normal) Bilirubin Negative (Normal) Urobilinogen,Semi-Qn 0.2 mg/dL (Normal) Range: 0.0-1.9 Occult Blood Negative (Normal) Ketones Negative (Normal) Glucose Negative (Normal) Protein Negative (Normal) WBC Esterase 1+ (Abnormal) Appearance Clear (Normal) Urine-Color Yellow (Normal) pH 5.5 (Normal) Range: 5.0-7.5 Specific Amelia 1.017 (Normal) Range: 1.005-1.030 52-Ufz-817735:30 CBC WITH MANUAL DIFF Comments: PATIENT WAS FASTINGPERFORMED BY: LabCoVirtua MarltonJabifo9466 [facility] [id number] Information: [id number] (29672) Immature Grans (Abs) 0.0 {x10E3/uL} (Normal) Range: [...] 3.77-5.28 WBC 6.2 {x10E3/uL} (Normal) Range: 3.4-10.8 :30 METABOLIC PANEL, COMPREHENSIVE Comments: PATIENT WAS FASTINGPERFORMED BY: LabCoVirtua MarltonDfgupo0208 [facility] [id number] (11649) ALT (SGPT) 23 [iU]/L (Normal) Range: 0-32 [...] (Abnormal) Range: 65-99 :35 HgA1C , Office (55283) HgA1C , Office 6.6 % (Normal) Range: 4.6 - 7.1 :41 Thin prep Pap (34339) Comments: Source.............VaginalNo. of containers..01 CYTYC Thin Prep VialPATIENT NOT FASTINGPERFORMED BY: [facility] [address] [id number] Information: [id number] Pathologist provided ICD9: SPRCS (Normal) Comments: 627.3The [...] of hysterectomy.V72.31 ; Routine gynecological examinationGris Moreau Facilities Locator (ASCP) :36 VITAMIN B-12 (CYANOCOBALAMIN) Comments: PATIENT WAS FASTINGPERFORMED BY: [employer] [place] [id number] (91668) Vitamin B12 628 pg/mL (Normal) Range: 211-946 :36 LIPID PANEL (45219) Comments: PATIENT WAS FASTINGPERFORMED BY: 4meee63[place] [id number] LDL/HDL Ratio 2.2 {ratio_units} (Normal) Range: 0.0-3.2 LDL Cholesterol Calc 87 mg/dL (Normal) Range: 0-99 VLDL Cholesterol Edgardo 27 mg/dL (Normal) Range: 5-40 HDL Cholesterol 39 mg/dL (Abnormal) Comments: According to ATP-III Guidelines, HDL-C >59 mg/dL is considered anegative risk factor for CHD. Cholesterol, Total 153 mg/dL (Normal) Range: 100-199 Triglycerides 137 mg/dL (Normal) Range: 0-149 :36 Vitamin D Hydroxy (26713) Comments: PATIENT WAS FASTINGPERFORMED BY: Polwire70 [facility] HoldingCentral [facility]arnett Hospital [id number] Vitamin D, 25-Hydroxy 31.1 ng/mL (Normal) Range: 30.0-100.0 Comments: Vitamin D deficiency has been defined by the [place] ofMedicine and an Endocrine Society practice guideline as alevel of serum 25-OH vitamin D less than 20 ng/mL (1,2).The Endocrine Society went on to further define vitamin Dinsufficiency as a level between 21 and 29 ng/mL (2).1. IOM ([place] of Medicine). 2010. Dietary reference intakes for calcium and D. [place]: The National Academies Press.2. Eleni MF, Lorne MORTON, Dayron WALTON, et al. Evaluation, treatment, and prevention of vitamin D deficiency: an Endocrine Society clinical practice guideline. JCEM. 2010; 96(7):1911-30. :36 TSH (46830) Comments: PATIENT WAS FASTINGPERFORMED BY: [employer]70 [facility] HoldingCentral [facility]arn[facility] Hospital [id number] TSH 1.510 {uIU/mL} (Normal) Range: 0.450-4.500 :36 MICROALBUMIN: CREATININE RATIO Comments: PATIENT WAS FASTINGPERFORMED BY: Polwire70 ShareSDKAtrium Health Anson [id number] (95621) AND (31633) Creatinine, Urine 212.6 mg/dL (Normal) Range: 15.0-278.0 Microalb/Creat Ratio 2.1 {mg/g_creat} (Normal) Range: 0.0-30.0 Microalbumin, Urine 4.5 ug/mL (Normal) Range: 0.0-17.0 :36 METABOLIC PANEL, Comments: PATIENT WAS FASTINGPERFORMED BY: [employer]70 [facility] [id number] Information: [id number] COMPREHENSIVE (20471) ALT (SGPT) 23 [iU]/L (Normal) Range: 0-32 [...] Glucose, Serum 160 mg/dL (Abnormal) Range: 65-99 90-Zyb-56239:34 BILAT SCRN DIGITAL & CAD Radiology Report [...] Mckenzie M.D.April 12, 2012 at 10:58:16 AM [id number] Signed GP/GP If you are the referring physician and would like to consult w [facility] theradiologist who provided this interpretation, please contact Sudha Pritchett at [phone]. If this radiologist is unavailable, youwill be directed to another radiologist to assist. If you are a patient with a question regarding this report, pleasecontactyour referring physician directly. Professional Interpretation Provided By: [employer], Phone , These documents contain legally protected [...] 04/12/12 1103 Sign by: Leobardo Mckenzie MD 68-Lwz-48387:34 DEXA BONE DENSITY STUDY (HP) Radiology Report [...] Mckenzie M.D.April 12 2 at 12:31:08 PM [phone] Signed GP/GP If you are the referring physician and would like to consult with theradiologist who provided this interpretation, please contact Rashard thompson M.D. at [phone]. If this radiologist is unavailable, youwill be directed to another radiologist to assist. If you are a patient with a question regarding this report, pleasecontactyour refer ring physician directly. Professional Interpretation Provided By: [employer], Phone , These documents contain legally protected [...] 04/12/12 1235 Sign by: Leobardo Mckenzie MD 1-Gfh-334216:25 HPV automatic Comments: Source.............Cervical;EndocervicalNo. of containers..01 CYTYC Thin Prep VialPATIENT NOT FASTINGPERFORMED BY: WB [facility] Kzclqttcrt143 [facility] [place] [id number] BY: Madi Hodge (10467) [facility] Vavkpebknt878 [facility] [place] [id number] Information: [id number] HPV, high-risk Negative Comments: This high-risk HPV [...] of hysterectomy.V72.31 ; Routine gynecological examinationJenatalio Steven Facilities Locator (ASCP) 72-Fdm-13969:37 Hemoglobin Glyclated (HGB A1C) Comments: PATIENT WAS FASTINGPERFORMED BY: [facility]Asc[facility]6370 [facility] [id number] (93733) Hemoglobin A1c 7.1 % (Abnormal) Range: 4.8-5.6 Comments: . Increased risk for diabetes: 5.7 - 6.4 Diabetes: >6.4 Glycemic control for adults with diabetes: <7.0 :37 TSH (90592) Comments: PATIENT WAS FASTINGPERFORMED BY: [facility]6370 [facility] [id number] TSH 1.790 {uIU/mL} (Normal) Range: 0.450-4.500 :37 CBC WITH MANUAL DIFF Comments: PATIENT WAS FASTINGPERFORMED BY: [facility]6370 [facility] [id number] Information: [id number] (15291) Immature Grans (Abs) 0.0 {x10E3/uL} (Normal) Range: [...] CREATININE RATIO Comments: PATIENT WAS FASTINGPERFORMED BY: BiosceptreInscription House Health CenterCxhqme6722 [facility] [id number] (05932) AND (78520) Microalb/Creat Ratio 0.8 {mg/g_creat} (Normal) Range: 0.0-30.0 Microalbumin, Urine 1.4 ug/mL (Normal) Range: 0.0-17.0 Creatinine, Urine 183.1 mg/dL (Normal) Range: 15.0-278.0 :37 LIPID PANEL (69706) Comments: PATIENT WAS FASTINGPERFORMED BY: BiosceptreVirtua MarltonBtlnfr9227 [facility] [id number] LDL/HDL Ratio 1.4 {ratio_units} (Normal) Range: 0.0-3.2 [...] PANEL, COMPREHENSIVE Comments: PATIENT WAS FASTINGPERFORMED BY: BiosceptreVirtua MarltonZubixb7750 [facility] [id number] (31927) ALT (SGPT) 26 [iU]/L (Normal) Range: 0-40 [...] Glucose, Serum 145 mg/dL (Abnormal) Range: 65-99 11-Bqd-28882:37 Vitamin D Hydroxy (86986) Comments: PATIENT WAS FASTINGPERFORMED BY: [facility]6370 [facility] [id number] Vitamin D, 25-Hydroxy 42.1 ng/mL (Normal) Range: 30.0-100.0 Comments: Vitamin D deficiency has been defined by the [place] ofMedicine and an Endocrine Society practice guideline as alevel of serum 25-OH vitamin D less than 20 ng/mL (1,2).The Endocrine Society went on to further define vitamin Dinsufficiency as a level between 21 and 29 ng/mL (2).1. IOM ([place] of Medicine). 2010. Dietary reference intakes for calcium and D. [place]: The National Academies Press.2. Eleni MF, Lorne MORTON, Dayron WALTON, et al. Evaluation, treatment, and prevention of vitamin D deficiency: an Endocrine Society clinical practice guideline. JCEM. 2010; 96(7):1911-30. :37 VITAMIN B-12 (CYANOCOBALAMIN) Comments: PATIENT WAS FASTINGPERFORMED BY: [facility] Entqtn7271 Shanita Martinez [place] [id number] (52567) Vitamin B12 1841 pg/mL (Abnormal) Range: 211-946 27-Dul-202804:56 CHEST WITH CONTRAST Radiology Report See Note [...] Signed:Marva HunterFebruary 11, 2012 at 3:53:06 PM [phone] Signed MV/MV If you are the referring physician and would like to consult with theradiologist who provided this interpretation, please co ntact Jackie Sierra M.D. at . If this radiologist is unavailable, youwillbe directed to another radiologist to assist. If you are a patient with a question regarding this report, pleas econtactyour referring physician directly. Professional Interpretation Provided By: [employer], Phone , These documents contain legally protected [...] documents. Dictated on 02/11/12 1 404 by Naty SIERRA MDcribed on 02/11/121610 by ITS IMPORTSign by JACKIE SIERRA MD on 02/11/121611 Sign by: JACKIE SIERRA MD 65-Dqn-758607:22 CRE GFRAA 95 mL/min (Normal) GFR 78 mL/min (Normal) CREAT 0.8 mg/dL (Normal) Range: 0.6-1.0 :42 MICROALBUMIN: CREATININE RATIO Comments: PATIENT WAS FASTINGPERFORMED BY: iSironaVirtua MarltonOzqkad8972 [facility] [id number] (61284) AND (11718) Creatinine, Urine 87.6 mg/dL (Normal) Range: 15.0-278.0 Microalb/Creat Ratio 1.1 {mg/g_creat} (Normal) Range: 0.0-30.0 Microalbumin, Urine 1.0 ug/mL (Normal) Range: 0.0-17.0 :42 VITAMIN B-12 (CYANOCOBALAMIN) Comments: PATIENT WAS FASTINGPERFORMED BY: iSironaVirtua MarltonFjdvyq2777 [facility] [id number] (94954) Vitamin B12 1740 pg/mL (Abnormal) Range: 211-946 :42 CBC WITH MANUAL DIFF Comments: PATIENT WAS FASTINGPERFORMED BY: iSironaVirtua MarltonEbevii8653 [facility] [id number] Information: [id number] (51994) Immature Grans (Abs) 0.0 {x10E3/uL} (Normal) Range: [...] 3.77-5.28 WBC 5.5 {x10E3/uL} (Normal) Range: 4.0-10.5 36-Erx-31356:42 Vitamin D Hydroxy (68320) Comments: PATIENT WAS FASTINGPERFORMED BY: [facility]6370 [facility] [id number] Vitamin D, 25-Hydroxy 32.2 ng/mL (Normal) Range: 30.0-100.0 Comments: Vitamin D deficiency has been defined by the [place] of[place]icine and an Endocrine Society practice guideline as alevel of serum 25-OH vitamin D less than 20 ng/mL (1,2).The Endocrine Society went on to further define vitamin Dinsufficiency as a level between 21 and 29 ng/mL (2).1. IOM ([place] of Medicine). 2010. Dietary reference intakes for calcium and D. [place]: The National Academies Press.2. Eleni MF, Lorne MORTON, Dayron WALTON, et al. Evaluation, treatment, and prevention of vitamin D deficiency: an Endocrine Society clinical practice guideline. JCEM. 2010; 96(7):1911-30. :42 LIPID PANEL (42815) Comments: PATIENT WAS FASTINGPERFORMED BY: 4meee6370 [facility] [id number] LDL/HDL Ratio 2.2 {ratio_units} (Normal) Range: 0.0-3.2 [...] PANEL, COMPREHENSIVE Comments: PATIENT WAS FASTINGPERFORMED BY: 4meee6370 [facility] [id number] (99238) ALT (SGPT) 20 [iU]/L (Normal) Range: 0-32 [...] Glucose, Serum 148 mg/dL (Abnormal) Range: 65-99 15-Yiy-80975:42 TSH (09905) Comments: PATIENT WAS FASTINGPERFORMED BY: [facility] Ap[facility]a [facility] [id number] TSH 2.140 {uIU/mL} (Normal) Range: 0.450-4.500 7-Lmm-473226:41 Urinalysis, Office (36955) UA - BILIRUBIN Negative (Normal) UA - BLOOD Negative (Normal) UA - GLUCOSE Negative (Normal) UA - KETONES Negative mg/dL (Normal) UA - LEUKOCYTE ESTERASE Negative (Normal) UA - NITRITE Negative (Normal) UA - PH 8.5 (Normal) UA - PROTEIN 30 mg/dL (Normal) UA - SPECIFIC GRAVITY 1.020 (Normal) URINE UROBILINGN SUNNY TIMED Normal mg/dL (Normal) 37-Xyt-485599:08 CULTURE, SPUTUM (63962) Comments: PATIENT NOT FASTINGPERFORMED BY: BiosceptreVirtua MarltonFrzyoq5097 [facility] [id number] Information: SRC:SPT ADD [id number] Result 1 RRF (Normal) Comments: Routine respiratory [...] {uIU/mL} (Normal) Range: 0.358-3.74 :24 VIT D,25 77158 37.4 ng/mL (Normal) Range: 30.0-100.0 Comments: Vitamin D deficiency has been defined by the [place] of[place]icine and an Endocrine Society practice guideline as alevel of serum 25-OH vitamin D less than 20 ng/mL (1,2).The Endocrine Society went on to further define vitamin Dinsufficiency as a level between 21 and 29 ng/mL (2).1. IOM ([place] of Medicine). 2011. Dietary reference intakes for calcium and D. [place]: The National Academies Press.2. Eleni MF, Lorne NC, Dayron WALTON, et al. Evaluation, treatment, and prevention of vitamin D deficiency: an Endocrine Society clinical practice guideline. JCEM. 2010; 96(7): 1911-30.Performed at: [address] [id number] Director: Leigh Palomo MD, Phone: [phone] 0-Gzw-300349:43 Blood Glucose , Office (44671) Blood Glucose , Office 141 (Normal) 10-Jsy-21655:08 BILAT SCRN DIGITAL & CAD Radiology Report [...] suspiciousab normality. Dictated on 04/07/11 0925 by Steffen Mckenzie MDranscribed on 04/07/11 1031 by ITS IMPORTSign by Leobardo Mckenzie MD on 04/07/11 1032 Sign by: Leobardo Mckenzie MD 24-Wyh-222206:03 Rapid Strep Test, Office (69970) Comments: neg Rapid Strep Test, Office Negative (Normal) 73-Xpk-340550:48 MEHREEN CULTURE-OTHER (31945) Comments: PATIENT NOT FASTINGPERFORMED BY: [facility]6370 [facility] [id number] Information: SRC:THRT [id number] Result 1 RRF (Normal) Comments: Routine respiratory marilin Upper Respiratory Culture Final report (Normal) 92-Gwm-020646:37 Rapid Strep Test, Office (55314) Rapid Strep Test, Office Negative (Normal) 87-Bsx-482739:05 Rapid Flu (25914 x 2) Influenza A Ag negative (Normal) :18 MICROALBUMIN: CREATININE RATIO Comments: PATIENT WAS FASTINGPERFORMED BY: Bios[facility]re Estnes2173 [facility] [id number] (85143) AND (80407) Microalb/Creat Ratio 2.4 {mg/g_creat} (Normal) Range: 0.0-30.0 Microalbumin, Urine 4.6 ug/mL (Normal) Range: 0.0-17.0 Creatinine, Urine 189.1 mg/dL (Normal) Range: 15.0-278.0 :18 CBC WITH MANUAL DIFF Comments: PATIENT WAS FASTINGPERFORMED BY: [employer] Uvrkqp9641 [facility] [id number] Information: [id number] (46731) Immature Grans (Abs) 0.0 {x10E3/uL} (Normal) Range: [...] COMPREHENSIVE Comments: PATIENT WAS FASTINGPERFORMED BY: LabCoVirtua MarltonDzmult0431 [facility] [id number] (66616) ALT (SGPT) 21 [iU]/L (Normal) Range: 0-40 [...] (Abnormal) Range: 65-99 :18 Vitamin D Hydroxy (44407) Comments: PATIENT WAS FASTINGPERFORMED BY: iSirona Orlmoz0744 [facility] [id number] Vitamin D, 25-Hydroxy 38.2 ng/mL (Normal) Range: 32.0-100.0 Comments: Recent studies consider the lower limit of 32.0 ng/mL to be athreshold for optimal health.Tom SOLIS. J Nutr. 2004;135(2):317-22. :18 LIPID PANEL (54187) Comments: PATIENT WAS FASTINGPERFORMED BY: iSirona Oexgju8333 [facility] [id number] LDL Cholesterol Calc 69 mg/dL (Normal) Range: 0-99 LDL/HDL Ratio 1.7 {ratio_units} (Normal) Range: 0.0-3.2 HDL Cholesterol 40 mg/dL (Normal) Comments: According to ATP-III Guidelines, HDL-C >59 mg/dL is considered anegative risk factor for CHD. VLDL Cholesterol Edgardo 37 mg/dL (Normal) Range: 5-40 Cholesterol, Total 146 mg/dL (Normal) Range: 100-199 Triglycerides 184 mg/dL (Abnormal) Range: 0-149 :18 TSH (30488) Comments: PATIENT WAS FASTINGPERFORMED BY: LabCoVirtua MarltonWcypnf9001 [facility] [id number] TSH 1.380 {uIU/mL} (Normal) Range: 0.450-4.500 :58 HgA1C , Office (29520) HgA1C , Office 6.4 % (Normal) Range: 4.6 - 7.1 :58 Blood Glucose , Office (35207) Blood Glucose , Office 146 (Normal) 48-Ugp-506373:43 L/S SPINE,MIN 4 VIEWS (MT) Radiology Report See Note (Normal) Comments: Exam Number: [id number] CLINICAL:The patient is a 59-year-old woman with [...] ESTElectronically Signed PM/PM As part of our Land [employer]r Program, we request that surgical orpathologic correlation, or any additional supportive or discordantmedical history, laboratory or imaging studies be forwarded [facility], attention: Peer ReviewCoordinator. , , [address], [address] [place] [address]. Reported By: CHASTITY RETANA M.D. 47-Ike-203489:28 Urinalysis, Office (42318) UA - BILIRUBIN Negative (Normal) UA - BLOOD Negative (Normal) UA - GLUCOSE Negative (Normal) UA - KETONES Negative mg/dL (Normal) UA - LEUKOCYTE ESTERASE Negative (Normal) UA - NITRITE Negative (Normal) UA - PH 6.0 (Normal) UA - PROTEIN Negative mg/dL (Normal) UA - SPECIFIC GRAVITY 1.025 (Normal) URINE UROBILINGN SUNNY TIMED 2 mg/dL (Normal) 50-Ytk-383825:46 Thin prep Pap (31573) Comments: Source.............VaginalLMP / Prev Treat...HystNo. of containers..01 CYTYC Thin Prep VialPERFORMED BY: [facility] Tulphqnnle104 [place] TONEY [id number] Information: [id number] Note: PAPSMR (Normal) Comments: The Pap smear [...] history of hysterectomy.V72.31 ; Routine gynecological exami [facility] Facilities Locator (ASCP) 26-Mme-887121:06 Vitamin D Hydroxy (28798) Comments: PATIENT WAS FASTINGPERFORMED BY: LabCoVirtua MarltonIfhakl7458 [facility] [id number] Vitamin D, 25-Hydroxy 26.5 ng/mL (Abnormal) Range: 32.0-100.0 Comments: Recent studies consider the lower limit of 32.0 ng/mL to be athreshold for optimal health.Tom SOLIS. J Nutr. 2004;135(2):317-22. 29-Unj-214970:06 LIPID PANEL (34658) Comments: PATIENT WAS FASTINGPERFORMED BY: [facility] Bicugj0518 [facility] [id number] LDL Cholesterol Calc 57 mg/dL (Normal) Range: 0-99 LDL/HDL Ratio 1.4 {ratio_units} (Normal) Range: 0.0-3.2 VLDL Cholesterol Edgardo 32 mg/dL (Normal) Range: 5-40 HDL Cholesterol 41 mg/dL (Normal) Comments: According to ATP-III Guidelines, HDL-C >59 mg/dL is considered anegative risk factor for CHD. Triglycerides 162 mg/dL (Abnormal) Range: 0-149 Cholesterol, Total 130 mg/dL (Normal) Range: 100-199 48-Coj-875807:06 METABOLIC PANEL, Comments: PATIENT WAS FASTINGPERFORMED BY: [facility] Fcomzm9492 [facility]ita [facility] [id number] Information: ADD [id number] AND DRAW FEE 99 6660 COMPREHENSIVE (75715) ALT (SGPT) 23 [iU]/L (Normal) Range: 0-40 [...] (Abnormal) Range: 65-99 :20 HgA1C , Office (61801) HgA1C , Office 6.8 % (Normal) Range: 4.6 - 7.1 :20 Blood Glucose , Office (54912) Blood Glucose , Office 129 (Normal) 27-Ero-550027:38 Rapid Strep Test, Office (75864) Rapid Strep Test, Office Negative (Normal) :09 HgA1C , Office (26781) HgA1C , Office 6.9 % (Normal) Range: 4.6 - 7.1 :09 Blood Glucose , Office (44549) Blood Glucose , Office 127 (Normal) :14 METABOLIC PANEL, COMPREHENSIVE Comments: PATIENT WAS FASTINGPERFORMED BY: LabCoVirtua MarltonXtdeey9329 [facility] [id number] (21888) Alkaline Phosphatase, S 60 [iU]/L (Normal) Range: [...] Glucose, Serum 141 mg/dL (Abnormal) Range: 65-99 51-Lln-15373:14 CBC WITH MANUAL DIFF Comments: PATIENT WAS FASTINGPERFORMED BY: [facility]Asc[facility]6370 [facility] [id number] Information: [id number] (10237) Baso (Absolute) 0.0 {x10E3/uL} (Normal) Range: 0.0-0.2 [...] URINE QUANT Comments: PATIENT WAS FASTINGPERFORMED BY: 4meee6370 [facility] [id number] (89899) Microalb/Creat Ratio <.8 {mg/g_creat} (Normal) Range: 0.0-30.0 Microalbumin, Urine <1.0 ug/mL (Normal) Range: 0.0-17.0 Creatinine, Urine 124.3 mg/dL (Normal) Range: 15.0-278.0 :14 TSH (19524) Comments: PATIENT WAS FASTINGPERFORMED BY: 4meee6370 [facility] [id number] TSH 2.150 {uIU/mL} (Normal) Range: 0.450-4.500 Comments: Effective July 22, 2009, TSH reference interval for11 - 19 years will be changing to: 0.450 - 4.500 uIU/mLReference interval for all other ages will NOT be affected. :14 Vitamin D Hydroxy (76279) Comments: PATIENT WAS FASTINGPERFORMED BY: 4meee6370 [facility] [id number] Vitamin D, 25-Hydroxy 26.6 ng/mL (Abnormal) Range: 32.0-100.0 Comments: Recent studies consider the lower limit of 32.0 ng/mL to be athreshold for optimal health.Tom SOLIS. J Nutr. 2004;135(2):317-22. :14 LIPID PANEL (64085) Comments: PATIENT WAS FASTINGPERFORMED BY: 4meee6370 [facility] [facility] [id number] HDL Cholesterol 42 mg/dL (Normal) Comments: According to ATP-III Guidelines, HDL-C >59 mg/dL is considered anegative risk factor for CHD. LDL Cholesterol Calc 100 mg/dL (Abnormal) Range: 0-99 LDL/HDL Ratio 2.4 {ratio_units} (Normal) Range: 0.0-3.2 Triglycerides 172 mg/dL (Abnormal) Range: 0-149 VLDL Cholesterol Edgardo 34 mg/dL (Normal) Range: 5-40 Cholesterol, Total 176 mg/dL (Normal) Range: 100-199 67-Vkt-152530:07 HgA1C , Office (34159) HgA1C , Office 6.1 % (Normal) Range: 4.6 - 7.1 23-Ffw-028703:07 Blood Glucose , Office (58747) Blood Glucose , Office 232 (Normal) 31-Yfj-36133:25 Lower Respiratory Culture Comments: Clinical Information: SRC:SP PERFORMED BY: [employer] [id number] Lower Respiratory Culture Final report (Normal) Result 1 RRF (Normal) Comments: Routine respiratory marilin :00 Influenza A, H1N1, RT PCR Comments: Clinical Information: SRC:NL PERFORMED BY: [address] [id number] Subtype Novel H1N1 by Negative (Normal) PCR Type Influenza A by Negative (Normal) PCR Viral Final report Comments: PERFORMED BY: [employer] [id number] :00 Culture,Rapid,Influen (Normal) Comments: Negative:No Influenza A or B detected. za 56-Wgc-571438:29 CHEST, PA AND LATERAL (MT) Radiology Report See Note (Normal) Comments: Exam Number: [id number] CLINICAL:58-year-old woman with cough and shortness of [...] cardiopulmonary process. Reported By: ROSEMARIE ROBBINS M.D. 97-Dil-926937:45 Rapid Strep Test, Office (49400) Comments: done ch Rapid Strep Test, Office Negative (Normal) 00-Asn-828389:32 Rapid Flu (02886 x 2) Comments: done ch INFLUENZA IMMUNOASSY negative (Normal) DIRECT OPTICAL OBSERV 04-Apr-20090:00 FLU A+B DIRECT See Note (Normal) Comments: Negative test results should be confirmed by culture. Order Rapid Viral Culture for Influenzae A+B (410506) if clinically indicated. INFLUENZA ANTIGEN,DIRECT Presumptive NEGATIVE for Influenza A/B Antigen (See Note) 80-Pop-693702:04 METABOLIC PANEL, COMPREHENSIVE Comments: PATIENT WAS FASTINGPERFORMED BY: [facility] [facility] [id number] (05661) A/G Ratio 1.6 (Normal) Range: 1.1-2.5 Albumin, [...] Sodium, Serum 141 mmol/L (Normal) Range: 135-145 71-Bno-820394:04 MICROALBUMIN: CREATININE RATIO Comments: PATIENT WAS FASTINGPERFORMED BY: [facility] BeneChill [facility] [id number] (25265) AND (56846) Creatinine, Urine 124.0 mg/dL (Normal) Range: 15.0-278.0 Microalb/Creat Ratio 1.5 {ug/mg_creat} (Normal) Range: 0.0-30.0 Microalbumin, Urine 1.9 ug/mL (Normal) Range: 0.0-17.0 :04 LIPID PANEL (21445) Comments: PATIENT WAS FASTINGPERFORMED BY: Aidhenscorner [facility] [id number] Cholesterol, Total 155 mg/dL (Normal) Range: 100-199 HDL Cholesterol 44 mg/dL (Normal) Comments: According to ATP-III Guidelines, HDL-C >59 mg/dL is considered anegative risk factor for CHD. LDL Cholesterol Calc 89 mg/dL (Normal) Range: 0-99 LDL/HDL Ratio 2.0 {ratio_units} (Normal) Range: 0.0-3.2 Triglycerides 109 mg/dL (Normal) Range: 0-149 VLDL Cholesterol Edgardo 22 mg/dL (Normal) Range: 5-40 :04 Vitamin D Hydroxy (72384) Comments: PATIENT WAS FASTINGPERFORMED BY: [facility] Ehspaw[address] [facility] [id number] Vitamin D, 25-Hydroxy 24.9 ng/mL (Abnormal) Range: 32.0-100.0 Comments: Recent studies consider the lower limit of 32.0 ng/mL to be athreshold for optimal health.Tom SOLIS. J Nutr. 2004;135(2):317-22. :04 C-REACTIVE PROTEIN (89935) Comments: PATIENT WAS FASTINGPERFORMED BY: [facility] Hwcbfs33[address] [facility] [id number] C-Reactive Protein, Quant 4.4 mg/L (Normal) Range: 0.0-4.9 :04 CBC WITH MANUAL DIFF (45990) Comments: PATIENT WAS FASTINGClinical Information: ADD DRAW FEE 562416 ADD J 02624 PERFORMED BY: TARAS [facility] Zzfpuo[address] [facility] [id number] Baso (Absolute) 0.1 {x10E3/uL} (Normal) Range: 0.0-0.2 [...] 11.7-15.0 WBC 5.0 {x10E3/uL} (Normal) Range: 4.0-10.5 98-Tlg-115960:04 TSH (21869) Comments: PATIENT WAS FASTINGPERFORMED BY: [facility] Fdsxff3509 [facility] [id number] TSH 1.151 {uIU/mL} (Normal) Range: 0.450-4.500 69-Heu-886415:00 HgA1C , Office (88753) HgA1C , Office 6.2 % (Normal) Range: 4.6 - 7.1 08-Cgj-989771:00 Blood Glucose , Office (12495) Blood Glucose , Office 132 (Normal) 14-Dqd-619455:39 ABDOMEN WITH IV CONTRAST Radiology Report See Note (Normal) Comments: Exam Number: [id number] CT ABDOMEN WITH CONTRAST CLINICAL STATEMENTRight upper [...] anincidental adenoma. Reported By: EDILIA WHEELER M.D. 39-Sdm-708607:38 CHEST WITH CONTRAST Radiology Report See Note (Normal) Comments: Exam Number: [id number] CT OF THE CHEST WITH CONTRAST. STATEMENTCough, [...] Comments: LIVER FUNCTION: PLEASE CALL DR CHEN, HEAVY DUTY PRESS OPERATOR FOR DR FUENTES 46 Range: 25-115 : C-REACTIVE PROT 13.74 mg/L (Abnormal) Comments: LIVER FUNCTION: PLEASE CALL DR CHEN HEAVY DUTY PRESS OPERATOR FOR DR FUENTES 46 Range: 0.0-6.0 Comments: [...] 47-70 WBC 5.6 K/mm3 (Normal) Range: 4.4-11.0 13-Nzr-239463:46 COMP METABOLIC Comments: LIVER FUNCTION: PLEASE CALL DR CHEN, HEAVY DUTY PRESS OPERATOR FOR DR CHRISTINA. A/G 1.2 {RATIO} (Normal) [...] T PROT 7.4 g/dL (Normal) Range: 6.4-8.2 85-Vfg-018140:46 D-DIMER QUANT <200 ng/mL (Normal) Comments: NORMAL D-Dimer level indicates no DVT or PE. RESULTS CALLED TO DR CHEN 09/21/08 RAD SINGLETON.REPORT READ BACK BY SAME . :46 ESR SED RATE 29 mm/h (Normal) Range: 0-30 :46 LIPASE 239 U/L (Normal) Comments: LIVER FUNCTION: PLEASE CALL DR CHEN, HEAVY DUTY PRESS OPERATOR FOR DR CHRISTINA. Range: 114-286 37-Umb-895562:12 HgA1C , Office (58031) HgA1C , Office 6.1 % (Normal) Range: 4.6 - 7.1 74-Rxr-441004:12 Blood Glucose , Office (66942) Blood Glucose , Office 116 (Normal) 22-Iuv-525263:48 Urine Culture,Comprehensive Comments: Clinical Information: SRC:UR PERFORMED BY: [facility] [facility] [id number] Result 1 MUG (Normal) Comments: Mixed urogenital [id number] Colonies/mL Urine Culture,Comprehensive Final report (Normal) 95-Scr-700905:31 L/S SPINE,MIN 4 VIEWS (MT) Radiology Report See Note (Normal) Comments: Exam Number: [id number] LUMBAR SPINE, 5 VIEWS CLINICAL STATEMENTFollow up bone density study, question compression of L5. COMPARISONBone Dexatometry May 03, 2008. 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 Vertebral body height andalignment appears maintained. Multilevel mild degenerative discchanges are present throughout the lumbar spine with end plateosteophyte formation present. There is mini mal concavity of the B2yermhvua end plate likely secondary to degenerative change [...] position orspasm. Reported By: EDILIA WHEELER M.D. 29-Hdl-18973:59 METABOLIC PANEL, COMPREHENSIVE Comments: PATIENT WAS FASTINGPERFORMED BY: [facility] [facility] [id number] (27303) A/G Ratio 1.4 (Normal) Range: 1.1-2.5 Albumin, [...] Total 3.0 g/dL (Normal) Range: 1.5-4.5 If -Faroese >59 mL/min/1.73 Comments: Note: Persistent reduction for [...] Glucose, Serum 136 mg/dL (Abnormal) Range: 65-99 14-Xms-74000:59 CBC WITH MANUAL DIFF (22099) Comments: PATIENT WAS FASTINGClinical Information: ADD DRAW FEE 397030 ADD J 64220 PERFORMED BY: [facility]CoV[facility] MarltonGxvokx0184 [facility] [id number] Baso (Absolute) 0.0 {x10E3/uL} (Normal) Range: 0.0-0.2 [...] FUNCTION PANEL Comments: PATIENT WAS FASTINGPERFORMED BY: [employer] Obhrtf[address] [facility] [id number] (78617) Bilirubin, Direct 0.09 mg/dL (Normal) Range: 0.00-0.40 :59 LIPID PANEL (77614) Comments: PATIENT WAS FASTINGPERFORMED BY: [employer] Pebkga08[address] [facility] [id number] Cholesterol, Total 156 mg/dL (Normal) Range: 100-199 HDL Cholesterol 43 mg/dL (Normal) Comments: According to ATP-III Guidelines, HDL-C >59 mg/dL is considered anegative risk factor for CHD. LDL Cholesterol Calc 77 mg/dL (Normal) Range: 0-99 LDL/HDL Ratio 1.8 {ratio_units} (Normal) Range: 0.0-3.2 Triglycerides 180 mg/dL (Abnormal) Range: 0-149 VLDL Cholesterol Edgardo 36 mg/dL (Normal) Range: 5-40 35-Pbw-820645:27 Urinalysis, Office (60579) UA - BILIRUBIN Negative (Normal) UA - [...] Report See Note (Normal) Comments: Exam Number: [id number] BONE DENSITOMETRY HISTORYOsteopenia. TECHNIQUE Bone densitometry of [...] Report See Note (Normal) Comments: Exam Number: [id number] ULTRASOUND OF ABDOMINAL AORTA HISTORYFamily history of [...] in size. Reported By: CHASTITY RETANA M.D. 73-Zjr-713846:06 URINE MEHREEN CULTURE-SUNNY COL Comments: PATIENT NOT FASTINGClinical Information: SRC:UR ADD [id number] PERFORMED BY: [employer] Cwetlp4763 [facility] [id number] COUNT (92886) Result 1 Proteus mirabilis Comments: 2,000 Colonies/mL [...] STrimethoprim/Sulfa S Urine Final report (Normal) Culture,Comprehensive 13-Skl-33192:19 HEPATIC FUNCTION PANEL Comments: PATIENT WAS FASTINGClinical Information: ADD DRAW FEE 222692 ADD J 08863 PERFORMED BY: [employer] Vhlzvg8118 [facility] [id number] (97154) Albumin, Serum 4.0 g/dL (Normal) Range: 3.5-5.5 Alkaline Phosphatase, S 91 [iU]/L (Normal) Range: 25-150 ALT (SGPT) 18 [iU]/L (Normal) Range: 0-40 AST (SGOT) 21 [iU]/L (Normal) Range: 0-40 Bilirubin, Direct 0.11 mg/dL (Normal) Range: 0.00-0.40 Bilirubin, Total 0.4 mg/dL (Normal) Range: 0.1-1.2 Protein, Total, Serum 6.8 g/dL (Normal) Range: 6.0-8.5 :19 LIPID PANEL (99501) Comments: PATIENT WAS FASTINGPERFORMED BY: [facility] Veqjgk0513 [facility] [id number] Cholesterol, Total 159 mg/dL (Normal) Range: 100-199 HDL Cholesterol 41 mg/dL (Normal) Range: 40-59 Comments: EFFECTIVE APRIL 30, 2008 the reference interval for HDL-C will be changing to: >39 mg/dL LDL Cholesterol Calc 80 mg/dL (Normal) Range: 0-99 LDL/HDL Ratio 2.0 {ratio_units} (Normal) Range: 0.0-3.2 Triglycerides 192 mg/dL (Abnormal) Range: 0-149 VLDL Cholesterol Edgardo 38 mg/dL (Normal) Range: 5-40 23-Hem-166582:08 Urinalysis, Office (09599) Comments: done km UA - BILIRUBIN Negative (Normal) UA - BLOOD Negative (Normal) UA - GLUCOSE Negative (Normal) UA - KETONES Negative mg/dL (Normal) UA - LEUKOCYTE ESTERASE Small (Normal) UA - NITRITE Negative (Normal) UA - PH 6.0 (Normal) UA - PROTEIN Negative mg/dL (Normal) UA - SPECIFIC GRAVITY 1.015 (Normal) URINE UROBILINGN SUNNY TIMED Normal mg/dL (Normal) :25 HgA1C , Office (14161) HgA1C , Office 5.7 % (Normal) Range: 4.6 - 7.1 :25 Blood Glucose , Office (26185) Blood Glucose , Office 127 (Normal) 08-Tvf-853524:47 UNILAT LT DIAG DIGITAL & CAD Radiology Report See Note (Normal) Comments: Exam Number: [id number] MAMMOGRAM, UNILATERAL LEFT DIAGNOSTIC DIGITAL AND CAD [...] mammograms werealso examined with computer-aided detection software ([employer], [employer] Reported By: CHASTITY RETANA M.D. :10 BILAT SCRN DIGITAL & CAD Radiology Report See Note (Normal) Comments: Exam Number: [id number] MAMMOGRAM, BILATERAL SCREENING DIGITAL AND CAD HISTORYRoutine [...] mammograms werealso examined with computer-aided detection software ([employer] Reported By: CHASTITY RETANA M.D. :36 HgA1C , Office (59335) HgA1C , Office 7.4 % (Abnormal) Range: 4.6 - 7.1 :36 Blood Glucose , Office (22290) Blood Glucose , Office 168 (Normal) :15 [...] Range: 5-40 :15 MICROALBUMIN,UR 6.7 mg/L (Normal) 53-Zac-051898:15 TSH 1.71 {uIU/mL} (Normal) Range: 0.34-4.82 :46 CBC WITH MANUAL DIFF (79004) Comments: PATIENT NOT FASTINGClinical Information: ADD [id number] ADD [id number] PERFORMED BY: [facility] MarltonHwzdlw6491 [facility] [id number] Baso (Absolute) 0.0 {x10E3/uL} (Normal) Range: 0.0-0.2 [...] Report See Note (Normal) Comments: Exam Number: [id number] MYOCARDIAL PERFUSION SCAN TECHNIQUEThe patient was injected [...] FLOR WEI M.D. :44 HgA1C , Office (73705) HgA1C , Office 7.2 % (Abnormal) Range: 4.6 - 7.1 :44 Blood Glucose , Office (99614) Blood Glucose , Office 141 (Normal) :48 HgA1C , Office (94868) HgA1C , Office 7.3 % (Abnormal) Range: 4.6 - 7.1 :47 Blood Glucose , Office (04424) Blood Glucose , Office 148 (Normal) :12 [...] mg/dL VLDL 34 mg/dL (Normal) Range: 5-40 61-Dgz-144149:12 TSH 1.61 {uIU/mL} (Normal) Range: 0.34-4.82 :10 [...] Range: 4.4-11.0 :46 Blood Glucose , Office (49157) Blood Glucose , Office 163 (Normal) :24 HgA1C , Office (37462) HgA1C , Office 6.6 % (Normal) Range: 4.6 - 7.1 :24 Blood Glucose , Office (19431) Blood Glucose , Office low (Normal) :09 HgA1C , Office (17720) Comments: done HgA1C , Office 6.5 % (Normal) Range: 4.6 - 7.1 :09 Blood Glucose , Office (91259) Comments: done Blood Glucose , Office 161 [...] 47-70 WBC 4.5 K/mm3 (Normal) Range: 4.4-11.0 87-Eqt-77053:37 COMP METABOLIC A/G 1.1 {RATIO} (Normal) Range: [...] (Normal) Range: 0.34-4.82 :05 HgA1C , Office (97308) HgA1C , Office 7.2 % (Abnormal) Range: 4.6 - 7.1 :05 Blood Glucose , Office (39887) Blood Glucose , Office 114 (Normal) :35 [...] 11.6-14.6 WBC 7.4 K/mm3 (Normal) Range: 4.4-11.0 7-Cry-514733:14 CHEST, PA AND LATERAL Radiology Report See Note (Normal) Comments: Exam Number: [id number] CHEST, PA AND LATERAL HISTORYShortness of breath. FINDINGSCardiac configuration is normal. There is mild overinflation of thelungs. No acute infiltrate, effusion, or pneumothora x is identified. IMPRESSIONNo acute changes noted in the lungs. Reported By: FLOR CHOWDHURY M.D. 68-Bub-387148:59 CHEST, PA AND LATERAL Radiology Report See Note (Normal) Comments: Exam Number: [id number] PA AND LATERAL CHEST HISTORY Being done [...] infiltrate identified. Reported By: FLOR CHOWDHURY M.D. 25-Knp-523900:59 JHONNY 19795 59 U/L (Normal) Range: - Comments: Performed At: [facility] [place] [address] [id number] 40-Mqi-190248:06 JHONNY 89714 61 U/L (Normal) Range: 12-68 66-Rod-818815:06 REBECCA-D 754176 REBECCA-DIRECT 31 U/mL (Normal) Range: 0-99 Comments: Negative <100 Equivocal 100 - 120 Positive >120 :06 C-REACTIVE PROT 7.75 mg/L (Abnormal) Range: 0.0-6.0 Comments: Test performed using the Dimension C-Reactive ProteinExtended Range assay method. This assay meets the AHA/CDC 2003 recommendations fordetermining patients at high risk for cardiovasculardisease. Reference: High risk CRP >3.0 mg/L :06 CBCD,SMEAR DIFF CELLS COUNTED 100 (Normal) EOS [...] 47-70 WBC 4.4 K/mm3 (Normal) Range: 4.4-11.0 :06 ESR SED RATE 5 mm/h (Normal) Range: 0-30 29-Xqq-315275:06 HISTOPL 442715 SeeNote (Normal) Comments: Result: Negative Performed At: [facility] [address]uczez[address] [place], [place] [id number] At: [facility] [address]zgpdiw[address] [place], [place] [id number] :06 LDH 170 U/L (Normal) Range: 100-190 :06 [...] methodology of Hgb A1C has changed to [place] BehringDimension RXL. No significant changes in patientresults [...] (Normal) Range: 0.34-4.82 :31 HgA1C , Office (06661) HgA1C , Office 7.9 % (Abnormal) Range: 4.6 - 7.1 :31 Blood Glucose , Office (71450) Blood Glucose , Office 302 (Normal) Plan of Care Name Dates Details Instructions BMI 45.0-49.9, adult : Follow up in [...] Make follow up apt with [facility] and Social PsychologistMaximino on September 23 between 2-4 Indication: Acute [...] Wheezing Cough : Follow [facility] tomorrow with [facility] Indication: Cough Unspecified asthma with (acute) exacerbation [...] DIAGNOSTIC TESTS Indication: Acute sinusitis Planned Observations PARATHORMONE (37666)Indication: Hypercalcemia On: 89-Wgk-714920:12 Request Cologuard - Strool Based DNA Test, CRC SCREEN (31939)Indication: Colon cancer screening (Renamed from Encounter for screening for malignant neoplasm of colon) On: 40-Mcc-039913:02 Request GLUCOSE (45287)Indication: Hypoglycemia On: 83-Dxq-760021:48 Request Cortisol,Urinary Free 24- Hour Urine (09180)Indication: Adrenal adenoma, right On: 48-Fkh-058148:54 Request Catecholamines,24-Hour Urine (15123)Indication: Adrenal adenoma, right On: 56-Msi-867900:54 Request DHEA (DEHYDROEPIANDROSTERONE) (95959)Indication: Adrenal adenoma, right On: 78-Vkr-354052:51 Request METABOLIC PANEL, COMPREHENSIVE (18858)Indication: Adrenal adenoma, right On: 90-Cgt-605008:51 Request LIPID PANEL (54947)Indication: Hypercholesteremia On: 49-Mmk-74485:23 Request HGB A1C (52485)Indication: Diabetes mellitus type II, controlled, with no complications (Renamed from Controlled type 2 diabetes mellitus without complication) On: 82-Rxk-927114:00 Request Comments: Jun 2016 1 week before apt METABOLIC PANEL, COMPREHENSIVE (13350)Indication: Hypercalcemia On: 88-Qry-668200:03 Request GLUCOSE (61266)Indication: Type 2 or unspecified type diabetes mellitus, uncontrolled On: 35-Cgl-646320:00 Request METABOLIC PANEL, COMPREHENSIVE (32000)Indication: Type 2 or unspecified type diabetes mellitus, uncontrolled On: :28 Request CALCIFEDIOL (36171)Indication: Vitamin D deficiency, unspecified On: :27 Request URINALYSIS, W/ MICRO (47942)Indication: Type 2 or unspecified type diabetes mellitus, uncontrolled On: :18 Request MICROALBUMIN: CREATININE RATIO (33172) AND (21878)Indication: Type 2 or unspecified type diabetes mellitus, uncontrolled On: :18 Request TSH (51638)Indication: Type 2 or unspecified type diabetes mellitus, uncontrolled On: :18 Request Lipid Panel (06771)Indication: Type 2 or unspecified type diabetes mellitus, uncontrolled On: :18 Request Metabolic Panel, Comprehensive (28202)Indication: Type 2 or unspecified type diabetes mellitus, uncontrolled On: :18 Request HGB A1C (26960)Indication: Type 2 or unspecified type diabetes mellitus, uncontrolled On: 31-Sfe-607903:14 Request Comments: 6.6 CBC W/AUTO DIFF WBC (09095)Indication: Hypertension On: 70-Tad-064747:07 Request METABOLIC PANEL, COMPREHENSIVE (60786)Indication: Hypertension On: 39-Lnq-016637:07 Request Vitamin D Hydroxy (64426)Indication: Vitamin D deficiency, unspecified On: 46-Ghk-333458:07 Request LIPID PANEL (50535)Indication: Other and unspecified hyperlipidemia On: 56-Fan-824747:07 Request Vitamin D Hydroxy (72059)Indication: Vitamin D deficiency, unspecified On: :15 Request CBC with auto diff (24142)Indication: Hypertension On: 5-Yhu-429607:14 Request TSH (78126)Indication: Hypothyroidism On: :14 Request MICROALBUMIN: CREATININE RATIO (13825) AND (74691)Indication: Type 2 or unspecified type diabetes mellitus, uncontrolled On: :14 Request METABOLIC PANEL, COMPREHENSIVE (97342)Indication: Hypertension On: :14 Request LIPID PANEL (64042)Indication: Other and unspecified hyperlipidemia On: :13 Request MYOGLOBIN (55813)Indication: Chest pain On: :52 Request CPK MB FRACTION (63982)Indication: Chest pain On: :52 Request ASSAY, TROPONIN, QUANTITATIVE (aka Troponin I) (85287)Indication: Chest pain On: :52 Request CBC WITH MANUAL DIFF (67506)Indication: Acute exacerbation of COPD with asthma On: :52 Request CALCIFEDIOL (82622)Indication: Depression On: 53-Jpw-796515:50 Request Lipid Panel (66831)Indication: Other and unspecified hyperlipidemia On: :50 Request TSH (71657)Indication: Hypothyroidism On: :49 Request URINALYSIS (27639)Indication: Hypertension On: :49 Request CBC WITH MANUAL DIFF (10413)Indication: Hypertension On: :49 Request Metabolic Panel, Comprehensive (54696)Indication: Hypertension On: :49 Request CBC (AUTO) (97171)Indication: Hypercalcemia On: 0-Rbp-859758:06 Request UPEP (04332)Indication: Hypercalcemia On: 2-Rjo-882262:06 Request SPEP (99970)Indication: Hypercalcemia On: 2-Iru-074457:06 Request SED RATE ERYTHROCYTE (97849)Indication: Hypercalcemia On: 5-Slb-876176:06 Request CALCIUM SERUM (25889)Indication: Hypercalcemia On: 2-Tmh-279958:05 Request PARATHORMONE (82053)Indication: Hypercalcemia On: 6-Oyr-933142:05 Request FECAL OCCULT HGB ASSAY- tubes sent home (78665)Indication: Well woman exam with routine gynecological exam On: 85-Lji-417458:54 Request HgA1C , Office (82348)Indication: Type 2 or unspecified type diabetes mellitus, uncontrolled On: 19-Aid-535840:45 Request CBC WITH MANUAL DIFF (35164)Indication: Osteopenia On: 53-Ujx-310477:23 Request Vitamin D Hydroxy (05722)Indication: Vitamin D deficiency, unspecified On: 73-Soz-004178:22 Request TSH (52244)Indication: Hypothyroidism On: 31-Pvv-508708:22 Request METABOLIC PANEL, COMPREHENSIVE (32073)Indication: Sarcoidosis On: 52-Xna-000781:21 Request Thin prep Pap (20274)Indication: Well woman exam with routine gynecological exam On: 4-Toz-947892:16 Request FECAL OCCULT HGB ASSAY- tubes sent home (63879)Indication: Well woman exam with routine gynecological exam On: 5-Wmp-474860:16 Request METABOLIC PANEL, COMPREHENSIVE (45216)Indication: Type 2 or unspecified type diabetes mellitus, uncontrolled On: 1-Czt-964912:14 Request CBC WITH MANUAL DIFF (47019)Indication: Type 2 or unspecified type diabetes mellitus, uncontrolled On: 5-Ecq-252441:14 Request MICROALBUMIN: CREATININE RATIO (08054) AND (29852)Indication: Type 2 or unspecified type diabetes mellitus, uncontrolled On: 4-Puh-175340:14 Request Vitamin D Hydroxy (51885)Indication: Vitamin D deficiency, unspecified On: 6-Bbs-754783:14 Request METABOLIC PANEL, COMPREHENSIVE (87711)Indication: Benign essential hypertension On: 6-Gjh-682720:14 Request TSH (63512)Indication: Hypothyroidism On: 9-Jlz-665161:14 Request LIPID PANEL (09490)Indication: Other and unspecified hyperlipidemia On: 6-Jcp-136654:14 Request HgA1C , Office (87209)Indication: Type 2 or unspecified type diabetes mellitus, uncontrolled On: 5-Spg-628038:43 Request CBC WITH MANUAL DIFF (37160)Indication: Benign essential hypertension On: 7-Elr-635212:22 Request METABOLIC PANEL, COMPREHENSIVE (13777)Indication: Benign essential hypertension On: 2-Fzo-893043:22 Request LIPID PANEL (79459)Indication: Other and unspecified hyperlipidemia On: 5-Vzj-572457:22 Request MEHREEN CULTURE-OTHER (13139)Indication: Pharyngitis, acute On: 48-Kqd-545114:38 Request LIPID PANEL (42475)Indication: Other and unspecified hyperlipidemia On: :40 Request CBC WITH MANUAL DIFF (35895)Indication: DIABETES MELLITUS WITHOUT MENTION OF COMPLICATION; TYPE II OR UNSPECIFIED TYPE, NOT STATED UNCONTROLLED On: :40 Request METABOLIC PANEL, COMPREHENSIVE (47121)Indication: DIABETES MELLITUS WITHOUT MENTION OF COMPLICATION; TYPE II OR UNSPECIFIED TYPE, NOT STATED UNCONTROLLED On: 22-Myb-871071:40 Request Vitamin D Hydroxy (77979)Indication: Vitamin D deficiency, unspecified On: 65-Czo-089447:38 Request CULTURE, SPUTUM (67639)Indication: Flu On: 32-Osc-209701:45 Request nasal influenza swab (12165) K9Ehqilckabo: Cough On: 8-Kgp-611974:00 Request Rapid Flu (04275 x 2)Indication: Cough On: 2-Big-133836:53 Request HEPATIC FUNCTION PANEL (54299)Indication: Other and unspecified hyperlipidemia On: :42 Request LIPID PANEL (27997)Indication: Other and unspecified hyperlipidemia On: :42 Request Vitamin D Hydroxy (50194)Indication: Vitamin D deficiency, unspecified On: :41 Request Lipase (02286)Indication: Nausea On: :41 Request Amylase (59932)Indication: Nausea On: 09-Xjb-232466:41 Request C-REACTIVE PROTEIN (87928)Indication: SOB (shortness of breath) on exertion On: :39 Request SED RATE ERYTHROCYTE (65437)Indication: SOB (shortness of breath) on exertion On: :39 Request METABOLIC PANEL, COMPREHENSIVE (02698)Indication: SOB (shortness of breath) on exertion On: :39 Request CBC WITH MANUAL DIFF (92586)Indication: SOB (shortness of breath) on exertion On: :39 Request D-Dimer (84476)Indication: SOB (shortness of breath) on exertion On: :39 Request TSH (43958)Indication: Hypothyroidism On: 86-Kje-126710:41 Request MICROALBUMIN: CREATININE RATIO (20391) AND (28688)Indication: DIABETES MELLITUS WITHOUT MENTION OF COMPLICATION; TYPE II OR UNSPECIFIED TYPE, NOT STATED UNCONTROLLED On: 70-Suo-044382:37 Request HEPATIC FUNCTION PANEL (35516)Indication: Other and unspecified hyperlipidemia On: 34-Img-899774:37 Request LIPID PANEL (28701)Indication: Other and unspecified hyperlipidemia On: 79-Wgh-440348:37 Request URINE MEHREEN CULTURE-SUNNY COL COUNT (88805)Indication: Urinary frequency On: 24-Qxa-503321:05 Request URINE MEHREEN CULTURE-SUNNY COL COUNT (08934)Indication: Urinary frequency On: 05-Dxd-278087:05 Request URINE MEHREEN CULTURE-SUNNY COL COUNT ([id number])Indication: Urinary frequency On: 12-Wac-149261:05 Request URINE MEHREEN CULTURE-SUNNY COL COUNT ([id number])Indication: Urinary frequency On: 29-Loh-198767:05 Request URINE MEHREEN CULTURE-SUNNY COL COUNT ([id number])Indication: Urinary frequency On: 56-Htg-244859:05 Request URINE MEHREEN CULTURE-SUNNY COL COUNT ([id number])Indication: Urinary frequency On: 15-Yek-970376:05 Request URINE MEHREEN CULTURE-SUNNY COL COUNT ([id number])Indication: Urinary frequency On: 85-Gjz-952416:05 Request MEHREEN CULTURE-OTHER ([id number])Indication: Family history of aneurysm On: 57-Bmz-883625:17 Request MICROALBUMIN URINE QUANT ([id number])Indication: Type 2 or unspecified type diabetes mellitus, uncontrolled On: 55-Mhq-82550:55 Request METABOLIC PANEL, COMPREHENSIVE ([id number])Indication: Hypertension On: 60-Rvf-47804:54 Request TSH ([id number])Indication: Hypothyroidism On: 94-Niq-66395:54 Request LIPID PANEL (03213)Indication: Other and unspecified hyperlipidemia On: 08-Slw-34082:53 Request TSH ([id number])Indication: Hypothyroidism On: 16-Pxx-798549:49 Request METABOLIC PANEL, COMPREHENSIVE ([id number])Indication: DIABETES MELLITUS WITHOUT MENTION OF COMPLICATION; TYPE II OR UNSPECIFIED TYPE, NOT STATED UNCONTROLLED On: 09-Hhj-264443:49 Request LIPID PANEL ([id number])Indication: DIABETES MELLITUS WITHOUT MENTION OF COMPLICATION; TYPE II OR UNSPECIFIED TYPE, NOT STATED UNCONTROLLED On: 22-Ego-848589:49 Request CBC WITH MANUAL DIFF ([id number])Indication: Anemia On: 09-Ref-611974:49 Request Rapid Strep Test, Office ([id number])Indication: Pharyngitis, acute On: 41-Wiu-599586:27 Request Comments: neg HDL Cholesterol-Direct (41065)Indication: Low HDL (under 40) On: 03-Dmq-453981:41 Request Comments: DO IN 3 MO LIPID PANEL (53812)Indication: Other and unspecified hyperlipidemia On: :54 Request URINALYSIS W/O MICRO ([id number])Indication: Hypertension On: :54 Request TSH ([id number])Indication: Hypothyroidism On: :54 Request METABOLIC PANEL, COMPREHENSIVE ([id number])Indication: Hypertension On: :54 Request CBC WITH MANUAL DIFF ([id number])Indication: Anemia On: :54 Request TSH ([id number])Indication: Hypothyroidism On: :59 Request URINALYSIS W/O MICRO ([id number])Indication: Type 2 or unspecified type diabetes mellitus, uncontrolled On: :59 Request CBC WITH MANUAL DIFF ([id number])Indication: Type 2 or unspecified type diabetes mellitus, uncontrolled On: :59 Request MICROALBUMIN: CREATININE RATIO ([id number]) AND ([id number])Indication: Type 2 or unspecified type diabetes mellitus, uncontrolled On: 37-Ojg-93535:58 Request METABOLIC PANEL, COMPREHENSIVE ([id number])Indication: Type 2 or unspecified type diabetes mellitus, uncontrolled On: :58 Request HgA1C , Office ([id number])Indication: Abnormal glucose tolerance test On: 30-Vav-148011:35 Request Blood Glucose , Office ([id number])Indication: Abnormal glucose tolerance test On: 53-Law-343133:35 Request Planned Encounters Medical; 1 Month FU - On: 22-Jun-2018 15:15 [facility] Dafne Jaime CNP, CNP, Mary E Planned Procedures DEXA SCAN AXIAL SKELETON ([id number])By: On: 17-May-2018 Intent Dafne Jaime CNP, CNP, Mary E SCREENING DIGITAL TOMOSYNTHESIS OF On: 17-May-2018 Intent BREAST ([id number])By: Dafne Jaime CNP, CNP, Mary E CT - LDCT CHEST ( WITHOUT CONTRAST On: 02-May-2018 Intent )By: Dafne Jaime CNP, CNP, Mary E PFT - Before and After SpiroBy: On: 02-May-2018 Intent Dafne Jaime CNP, CNP, Mary E SIX MINUTE WALK TEST ([id number])By: On: 20-Apr-2018 Intent Visit, Nurse SPIROMETRY PERFORMED ([id number])By: On: 20-Apr-2018 Intent Visit, Nurse SPIROMETRY PERFORMED ([id number])By: On: 20-Apr-2018 Intent Visit, Nurse INFUSION, NORMAL SALINE SOLUTION , On: 24-Jan-2018 Intent 1000 CC (Special Coverage Comments: lot:[id number]:IV right anticub dose:1000ml given by:carmen Shay LPN Instructions Apply. See MCM: 2049) ([id number])By: Dafne Jaime CNP, CNP, Mary E IV Needle placement ([id number])By: On: 24-Jan-2018 Intent Dafne Jaime CNP, CNP, Mary E Radiology - Lumbar SpineBy: On: 23-Dec-[address] - Abdomen & Pelvis Stone On: 23-Dec-2017 Intent ProtocolBy: Yoselin Oconnell Comments: STAT R/O Kidney stones bilateral COMP EYE EXAMINATION, ESTAB PATIENT On: 09-Dec-2017 Intent ([id number])By: Yoselin Oconnell Toradol Injection, 30 mg On: 12-Jul-2017 Intent ([id number])By: Dafne Jaime CNP, CNP, Mary E Toradol Injection, 30 mg On: 07-Apr-2017 Intent ([id number])By: Dafne Jaime CNP, CNP, Mary E Flu Vaccine (Quadrivalent) 94546Cg: On: 24-Mar-2017 Intent Dafne Jaime CNP, CNP, Mary E Toradol Injection, 30 mg On: 24-Mar-2017 Intent ([id number])By: Dafne Jaime CNP, CNP, Mary E Rocephin Injection, 2 Gram On: 18-Nov-2016 Intent ([id number])By: Dafne Jaime CNP, CNP, Mary E Aerosol Treatment ([id number])By: Addison On: 18-Nov-2016 Intent Dafne DOUGHERTY CNP, Mary E Solu -Medrol Injection, 125 mg On: 18-Nov-2016 Intent ([id number])By: Ciesa MEDIA MONITOR, Radha Ciesa MEDIA MONITOR, Radha MAMMOGRAM, SCREENING, BOTH BREAST On: 19-Aug-2016 Intent ([id number])By: Dafne Jaime CNP, CNP, Mary E DEXA SCAN AXIAL SKELETON ([id number])By: On: 19-Aug-2016 Intent Dafne Jaime CNP, CNP, Mary E GROUP PULMONARY REHABILITATION WITH On: 11-Feb-2016 Intent EXERCISE ([id number])By: Dafne Jaime CNP, CNP, Mary E Six Minute Walk Assessment On: 17-Oct-2015 Intent ([id number])By: Visit, Nurse PFT - CompleteBy: Vanessa Chen MD On: 24-Sep-2015 Intent M Rocephin Injection, 2 Gram On: 21-Aug-2015 Intent (J0696)By: Dafne Jaime CNP Comments: IV 2 gramsright rbascqo23 guagetolerated welllot [id number] 02/12as, Dafne SILVA CNP INFUSION, NORMAL SALINE SOLUTION , On: 21-Aug-2015 Intent 1000 CC (Special Coverage Instructions Apply. See MCM: 2049) (J7030)By: Dafne Jaime CNP, CNP, Mary E Solu -Medrol Injection, 125 mg On: 21-Aug-2015 Intent (J2930)By: Dafne Jaime CNP Comments: lot [id number] 12/1824 mcgIMright gmas, Dafne SILVA CNP Radiology - ChestBy: Addison DOUGHERTY, On: 20-Aug-2015 Intent Dafne Durán CNP Comments: call results to MCiesa INFUSION, NORMAL SALINE SOLUTION , On: 20-Aug-2015 Intent 250 CC ([id number])By: Dafne Jaime CNP, CNP, Mary E Rocephin Injection, 2 Gram On: 20-Aug-2015 Intent (J0696)By: Dafne Jaime CNP Comments: IV 2 gramsright mannmec78 guagetolerated well, no redness notedlot [id number] 01/26/18as, Dafne SILVA CNP Solu -Medrol Injection, 125 mg On: 20-Aug-2015 Intent (J2930)By: Dafne Jaime CNP Comments: Vincent:[id number]:ite:lt glutroute:IMdose:125mgDEMICK, MA MEDIA MONITOR, Dafne Mota Aerosol Treatment ([id number])By: Harman On: 20-Aug-2015 Intent AIRPORT GUIDE, Gloria Rocephin Injection, 2 Gram On: 19-Aug-2015 Intent ([id number])By: Dafne Jaime CNP Comments: [id number] hip, IM JM, ANNELIESE DOUGHERTY, Dafne Mota Solu -Medrol Injection, 125 mg On: 19-Aug-2015 Intent (J2930)By: Dafne Jaime CNP Comments: [id number] hip, IMDose-prefilled syringegiven by:DOUGLAS House Dafne DOUGHERTY Aerosol Treatment ([id number])By: Harman On: 19-Aug-2015 Intent AIRPORT GUIDE, Gloria Solu -Medrol Injection, 125 mg On: 07-Jun-2015 Intent (J2930)By: Giovani Hutchins MD Comments: [id number]-U hip, IMDose-prefilled syringegiven by:ASHLY PERALES signed Rocephin Injection, 2 Gram On: 07-Jun-2015 Intent (J0696)By: Giovani Hutchins MD Comments: 2.1561804426u5 grams rocephin IV22G, 1 inchSite: existing lock flushed easily before and after and then d/c for the weekendTolerated: wellno redness or swelling, no s/s infiltrationML, AIRPORT GUIDE INFUSION, NORMAL SALINE SOLUTION , On: 07-Jun-2015 Intent 250 CC ([id number])By: Giovani Hutchins MD INFUSION, NORMAL SALINE SOLUTION , On: 06-Jun-2015 Intent 250 CC (J7050)By: Giovani Hutchins MD Rocephin Injection, 2 Gram On: 06-Jun-2015 Intent (J0696)By: Giovani Hutchins MD Comments: 489904z8.70644 gramsIV Therapy ptyfvgjaw55K, 1 inchSite: R ac - lock flushed nicely and left in place for tomorrowTolerated: well x 1st attemptno redness or swelling, no s/s infiltrationMARKIE, AIRPORT GUIDE Solu -Medrol Injection, 125 mg On: 06-Jun-2015 Intent (J2930)By: Giovani Hutchins MD Comments: [id number] hip, IMML, AIRPORT GUIDE Radiology - ChestBy: Liset HUTCHINSON, On: 06-Jun-2015 Intent Giovani Comments: Acute execerbation of COPD?PNA Aerosol Treatment (42052)By: Liset On: 06-Jun-2015 Intent Giovani HUTCHINSON Overnight Pulse OX (13409)By: Marquise On: 03-Jun-2015 Intent Jackie JHAVERI Six Minute Walk Assessment On: 29-May-2015 Intent (22401)By: Jackie Christina DO Overnight Pulse OX (21231)By: Marquise On: 29-May-2015 Jackie Mena DO MAMMOGRAM, SCREENING, BOTH BREAST On: 03-May-2015 Intent (76371)By: Jackie Christina DO Six Minute Walk Assessment On: 25-Feb-2015 Intent (84249)By: Jackie Christina DO Overnight Pulse OX (12911)By: Marquise On: 25-Feb-2015 Jackie Mena DO BILATERAL MAMMOGRAMS ([id number])By: On: 26-Nov-2014 Intent Jackie Christina DO EKG (06873)By: Jackie Christina DO On: 26-Nov-2014 Intent Comments: ekg showed normal sinus rhythym, normal axis, no acute st/t wave changes twave inversion ant no change Solu -Medrol Injection, 125 mg On: 08-Aug-2014 Intent (J2930)By: Dafne Jaime CNP Comments: [id number], IMR hip, IMJM, TARE MAN Dafne DOUGHERYT Rocephin Injection, 2 Gram On: 08-Aug-2014 Intent (J0696)By: Dafne Jaime CNP Comments: 9.1321987301q7 grams IV R ac, x 1 attempt - tolerated well SHIRA Brito CNP, Mary E INFUSION, NORMAL SALINE SOLUTION , On: 08-Aug-2014 Intent 250 CC (J7050)By: Dafne Jaime CNP, CNP, Mary E IV Needle placement (33447)By: On: 07-Aug-2014 Intent Dafne Jaime CNP, CNP, Mary E Comments: 22G insyte initiated on 1st attempt w/o difficulty, no s/s redness, swelling infiltration, infusing on gravity pole at 38gtts/min, dsg dry intact, catheter removed intact- tolerated well- CTyler AIRPORT GUIDE Solu -Medrol Injection, 125 mg On: 07-Aug-2014 Intent (J2930)By: Dafne Jaime CNP Comments: Lot:[id number]:12/2016Dose:125mgRoute:imSite:r armGiven By:FADIA signed Dafne DOUGHERTY INFUSION, NORMAL SALINE SOLUTION , On: 07-Aug-2014 Intent 250 CC (J7050)By: Dafne Jaime CNP, CNP, Mary E Rocephin Injection, 2 Gram On: 07-Aug-2014 Intent (J0696)By: Dafne Jaime CNP Comments: lot # [id number]- 02/26/2017site-R Median antecuberoute-IVdose- 2GCTyler AIRPORT GUIDE Dafne DOUGHERTY Aerosol Treatment (40014)By: Addison On: 07-Aug-2014 Intent Dafne DOUGHERTY CNP, Mary E Comments: ipitropium- tolerated well- CTyler AIRPORT GUIDE Radiology - ChestBy: Addison DOUGHERTY, On: 06-Aug-2014 Intent Dafne Durán CNP Rocephin Injection, 2 Gram On: 06-Aug-2014 Intent (J0696)By: Dafne Jaime CNP, CNP, Mary E Solu -Medrol Injection, 125 mg On: 06-Aug-2014 Intent (J2930)By: Dafne Jaime CNP, CNP, Mary E Aerosol Treatment ([id number])By: On: 31-Jul-2014 Intent Vanesas Chen MD Solu- Medrol Injection, 125mg On: 31-Jul-2014 Intent (J2930)By: Vanessa Chen MD Eprescribed prescriptions On: 31-Jul-2013 Intent (G8553)By: Ivanna Maddox Overnight Pulse OX (21800)By: Marquise On: 10-May-2013 Jackie Mena DO Spirometry (53337)By: Marquise JHAVERI, On: 02-May-2013 Rajesh Rondon Comments: good effort cure mild obst EKG (77922)By: Ivanna Maddox On: 02-May-2013 Intent Comments: ekg showed normal sinus rhythym, normal axis, no acute st/t wave changes no change in twave inversion ant Six Minute Walk Assessment On: 02-May-2013 Intent ([id number])By: Jackie Christina DO Overnight Pulse OX (39001)By: Marquise On: 02-May-2013 Jackie Mena DO Eprescribed prescriptions On: 02-May-2013 Intent (G8553)By: Ivanna Maddox MAMMOGRAM, SCREENING, BOTH BREASTS On: 18-Apr-2013 Intent (90827)By: Jackie Christina DO Clinical Breast Examination On: 18-Apr-2013 Intent (G0101)By: Ivanna Maddox Solu- Medrol Injection, 125mg On: 26-Oct-2012 Intent (J2930)By: Jackie Christina DO Comments: Lot #[id number]-R hip, IMDose- prefilled syringegiven by:VANESA House signed Aerosol Treatment (80486)By: Marquise On: 26-Oct-2012 Jackie Mena DO Eprescribed prescriptions On: 26-Oct-2012 Intent (G8553)By: Ivanna Maddox Pulse Oximetry (02047)By: Tan On: 26-Oct-2012 Rajesh Goncalves Comments: 98% Spirometry (41275)By: Abi JHAVERI On: 06-Sep-2012 Rajesh Christian Comments: mild restrictive Aerosol Treatment (62128)By: Abi On: 06-Sep-2012 Anahi Mena DO Comments: done pt tolerated well. Albuterol 0.83%-- better a/e no wheeze Solu- Medrol Injection, 125mg On: 06-Sep-2012 Intent (J2930)By: Anahi Alex DO Comments: 2ml given im lt hip lot [id number] exp 04/11 Eprescribed prescriptions On: 06-Sep-2012 Intent (G8553)By: Anahi Alex DO Pulse Oximetry (81964)By: Abi On: 06-Sep-2012 Anahi Mena DO Eprescribed prescriptions On: 22-Aug-2012 Intent (G8553)By: Ivanna Maddox Overnight Pulse OX (10087)By: Marquise On: 03-May-2012 Intent Jackie JHAVERI Comments: Patient demonstrates understanding of how to operate macrivera. Alisha. Eprescribed prescriptions On: 27-Apr-2012 Intent (G8553)By: Ivanna Maddox Six Minute Walk Assessment On: 01-Apr-2012 Intent (91093)By: Virgen Real LPN PNEUM VAC ADLT/IMUMNOSPR, SBC/INTRM On: 18-Mar-2012 Intent (71472)By: Jackie Christina DO Comments: Lot:[id number]:08-10-13Dose:0.5 mLRoute: Site: devikaHarmans By:FADIA signed PFT - CompleteBy: Jackie Christina DO On: 18-Mar-2012 Intent Six Minute Walk Assessment On: 18-Mar-2012 Intent (08184)By: Jackie Christina DO Overnight Pulse OX (95992)By: Marquise On: 18-Mar-2012 Jackie Mena DO IMMUNIZ ADMNIN, 1 VAC, SNGL/COMBO On: 18-Mar-2012 Intent (53538)By: Jackie Christina DO DXA, BONE DENSITY, AXIAL SKELETON On: 18-Mar-2012 Intent (03698)By: Jackie Christina DO MAMMOGRAM, SCREENING, BOTH BREASTS On: 18-Mar-2012 Intent (18457)By: Jackie Christina DO CT - ChestBy: Jackie Christina DO On: 03-Feb-2012 Intent Solu- Medrol Injection, 125mg On: 30-Sep-2011 Intent (J2930)By: Jackie Christina DO Comments: Lot #[id number]/14Site-right xhqPkza633uocostd by: Tiny Cox LPN Aerosol Treatment (34501)By: Marquise On: 30-Sep-2011 Jackie Mena DO Pulse Oximetry (56194)By: Tan On: 30-Sep-2011 Intent Ivanna Comments: 97% Solu -Medrol Injection, 125 mg On: 25-Sep-2011 Intent (J2930)By: Dafne Jaime CNP, CNP, Mary E Pulse Oximetry (37309)By: Addison On: 25-Sep-2011 Intent Dafne DOUGHERTY CNP, Mary E FLU VAC, SPLIT, >3 YEARS, INTRAMUSC On: 01-Jul-2011 Intent (08480)By: Ivanna Maddox Comments: work MAMMOGRAM, SCREENING, BOTH BREASTS On: 31-Mar-2011 Intent (39225)By: Jackie Christina DO Solu -Medrol Injection, 125 mg On: 31-Mar-2011 Intent (J2930)By: Jackie Christina DO Eprescribed prescriptions On: 31-Mar-2011 Intent (G8553)By: Jackie Christina DO Solu- Medrol Injection, 125mg On: 16-Dec-2010 Intent (J2930)By: Jackie Christina DO Comments: lot # [id number]- [id number]-LOIWTKofbls-LCrdtw- 2ML tolerated well CHenderson AIRPORT GUIDE Aerosol Treatment (55148)By: Marquise On: 16-Dec-2010 Intent Jackie JHAVERI Comments: tolerated well Pulse Oximetry (53078)By: Marquise JHAVERI On: 16-Dec-2010 Intent Jackie Rondon Comments: 96% on room air Eprescribed prescriptions On: 16-Dec-2010 Intent (G8553)By: Jackie Christina DO Pulse Oximetry (55276)By: Tan On: 15-Jul-2010 Intent Ivanna Comments: 96% TD Injection , IM (80220)By: Marquise On: 04-Jul-2010 Jackie Mena DO Comments: Lot #[id number]/12Site-R DltdDose 0.5mlgiven by:UDAY EKG (81150)By: Ivanna Maddox On: 04-Jul-2010 Intent Radiology - Lumbar SpineBy: Addison On: 12-May-2010 Intent LADONNA RadhaDafne Redd CNP MAMMOGRAM, SCREENING, BOTH BREASTS On: 19-Nov-2009 Intent (81194)By: Jackie Christina DO MAMMOGRAM, SCREENING, BOTH BREASTS On: 07-May-2009 Intent (88042)By: Jackie Christina DO EKG (15038)By: Ivanna Maddox On: 07-May-2009 Intent Comments: ekg showed normal sinus rhythym, normal axis, no acute st/t wave changes Aerosol Treatment (91488)By: On: 22-Apr-2009 Intent Ivanna Aly Comments: post aerosol tx, pt states i can breath a whole lot better Radiology - Chest- PA and LatBy: On: 19-Apr-2009 Intent Anahi Alex DO Pulse Oximetry (33194)By: Addison On: 04-Apr-2009 Intent Dafne DOUGHERTY Addison Dafne DOUGHERTY Aerosol Treatment (14182)By: Marquise On: 21-Sep-[address] - ChestBy: Jackie Christina DO On: 21-Sep-2008 Intent Comments: please also look at right upper quadrant- do stat and call wet read Pulse Oximetry (56350)By: Tan, On: 21-Sep-2008 Intent Ivanna Comments: 97% Radiology - Lumbar SpineBy: Marquise On: 14-Jun-2008 Intent Jackie JHAVERI Comments: bone density suggest possible compression at l5 Ultrasound - AortaBy: Marquise JHAVERI, On: 24-Apr-2008 Intent Jackie Rondon Holter Moniter (13303)By: Marquise JHAVERI, On: 24-Apr-2008 Intent Jackie A EKG (31528)By: Jackie Christina DO On: 24-Apr-2008 Intent Comments: ekg showed normal sinus rhythym, normal axis, no acute st/t wave changes negative precordial t waves == no change DXA, BONE DENSITY, AXIAL SKELETON On: 24-Apr-2008 Intent (30099)By: Jackie Christina DO INFUSION, NORMAL SALINE SOLUTION , On: 09-Nov-2007 Intent 1000CC (Special Coverage Instructions Apply. See MCM: 2049) (J7050)By: Anahi Alex DO IV Needle placement (22548)By: On: 09-Nov-2007 Intent Anahi Alex DO Comments: PLACED 22 G R ANTECUBITAL - PT DENY WELLGOOD RETURN IV Infusion (18613)By: Abi JHAVERI, On: 09-Nov-2007 Intent Anahi Nuclear Stress Test/Stress On: 17-Oct-2007 Intent SPECT/AdenosineBy: Jackie Christina DO Nuclear Stress Test/Stress On: 18-Jul-2007 Intent SPECT/AdenosineBy: Jer Christina DOa Alcon EKG (75500)By: Jackie Christina DO On: 18-Jul-2007 Intent Comments: ekg showed normal sinus rhythym, normal axis, no acute st/t wave changes has neg twaves on precordium but are unchanged Pneumovax (04167)By: Marquise JHAVERI, On: 11-Apr-2007 Intent Jackie Rondon EKG (86013)By: Anahi Alex DO On: 19-Jan-2007 Intent Comments: NSR NONSPECIFIC CHANGES-- Pulse Oximetry (85825)By: Abi On: 24-Sep-2006 Intent Anahi JHAEVRI Comments: 98% RA Aerosol Treatment (47207)By: Abi On: 24-Sep-2006 Anahi Mena DO Comments: [...] 23-Sep-2006 Intent Anahi Alex DO Aerosol Treatment (42343)By: Abi On: 23-Sep-2006 Anahi Mena DO Comments: after aerosol- diffuse wheeze and rhonchi lil softer-- more air exchange though Pulse Oximetry (92922)By: Armond RN, On: 23-Sep-2006 Intent Karen Comments: 98% PNEUM VAC ADLT/IMUMNOSPR, SBC/INTRM On: 08-Jul-2006 Intent (84340)By: MARKIE Hayden IMMUNIZ ADMNIN, 1 VAC, SNGL/COMBO On: 08-Jul-2006 Intent (21730)By: MARKIE Hayden Planned Medications INFUSION, NORMAL SALINE SOLUTION , 1000 CC Ordered: 24-Jan-2018 Pending Ciesa MEDIA MONITOR, Radha Ciesa MEDIA MONITOR, Radha INFUSION, NORMAL SALINE SOLUTION , 1000 CC Ordered: 21-Aug-2015 Pending Ciesa MEDIA MONITOR, Radha Ciesa MEDIA MONITOR, Radha INFUSION, NORMAL SALINE SOLUTION , 250 CC Ordered: 20-Aug-2015 Pending Ciesa MEDIA MONITOR, Radha Ciesa MEDIA MONITOR, Radha INFUSION, NORMAL SALINE SOLUTION , 250 CC Ordered: 07-Jun-2015 Pending Giovani Hutchins MD INFUSION, NORMAL SALINE SOLUTION , 250 CC Ordered: 08-Aug-2014 Pending Ciesa MEDIA MONITOR, Radha Ciesa MEDIA MONITOR, Radha INFUSION, NORMAL SALINE SOLUTION , 250 CC Ordered: 07-Aug-2014 Pending Ciesa MEDIA MONITOR, Radha Ciesa MEDIA MONITOR, Radha INFUSION, NORMAL SALINE SOLUTION , 250 CC Ordered: 06-Jun-2015 Pending Giovani Hutchins MD INJECTION, CEFTRIAXONE SODIUM, PER 250 MG Ordered: 21-Aug-2015 Pending Ciesa MEDIA MONITOR, Radha Ciesa MEDIA MONITOR, Radha INJECTION, CEFTRIAXONE SODIUM, PER 250 MG Ordered: 07-Jun-2015 Pending Giovani Hutchins MD INJECTION, CEFTRIAXONE SODIUM, PER 250 MG Ordered: 06-Jun-2015 Pending Giovani Hutchins MD INJECTION, CEFTRIAXONE SODIUM, PER 250 MG Ordered: 19-Aug-2015 Pending Ciesa MEDIA MONITOR, Radha Ciesa MEDIA MONITOR, Radha INJECTION, CEFTRIAXONE SODIUM, PER 250 MG Ordered: 08-Aug-2014 Pending Ciesa MEDIA MONITOR, Radha Ciesa MEDIA MONITOR, Radha INJECTION, CEFTRIAXONE SODIUM, PER 250 MG Ordered: 20-Aug-2015 Pending Ciesa MEDIA MONITOR, Radha Ciesa MEDIA MONITOR, Radha INJECTION, CEFTRIAXONE SODIUM, PER 250 MG Ordered: 07-Aug-2014 Pending Ciesa MEDIA MONITOR, Radha Ciesa MEDIA MONITOR, Radha INJECTION, CEFTRIAXONE SODIUM, PER 250 MG Ordered: 06-Aug-2014 Pending Ciesa MEDIA MONITOR, Dafne Acevedoa MEDIA MONITOR, Radha INJECTION, CEFTRIAXONE SODIUM, PER 250 MG Ordered: 18-Nov-2016 Pending Curtisa MEDIA MONITOR, Dafne Masesa MEDIA MONITOR, Radha INJECTION, KETOROLAC TROMETHAMINE, PER 15 MG Ordered: 24-Mar-2017 Pending Ciesa MEDIA MONITOR, Radha Ciesa MEDIA MONITOR, Radha INJECTION, KETOROLAC TROMETHAMINE, PER 15 MG Ordered: 07-Apr-2017 Pending Tgesa MEDIA MONITOR, Radha Ciesa MEDIA MONITOR, Radha INJECTION, KETOROLAC TROMETHAMINE, PER 15 MG Ordered: 12-Jul-2017 Pending Tgesa MEDIA MONITOR, Radha Ciesa MEDIA MONITOR, Radha INJECTION, METHYLPREDNISOLONE SODIUM SUCCINATE, UP TO 125 MG Ordered: 18-Nov-2016 Pending Curtisa MEDIA MONITOR, Radha Ciesa MEDIA MONITOR, Radha INJECTION, METHYLPREDNISOLONE SODIUM SUCCINATE, UP TO 125 MG Ordered: 31-Mar-2011 Pending Fast DO, Jackie A INJECTION, METHYLPREDNISOLONE SODIUM SUCCINATE, UP TO 125 MG Ordered: 21-Aug-2015 Pending Curtisa MEDIA MONITOR, Dafne Acevedoa MEDIA MONITOR, Radha INJECTION, METHYLPREDNISOLONE SODIUM SUCCINATE, UP TO 125 MG Ordered: 25-Sep-2011 Pending Tgesa MEDIA MONITOR, Dafne Masesa MEDIA MONITOR, Radha INJECTION, METHYLPREDNISOLONE SODIUM SUCCINATE, UP TO 125 MG Ordered: 06-Aug-2014 Pending Curtisa MEDIA MONITOR, Radha Curtisa MEDIA MONITOR, Radha INJECTION, METHYLPREDNISOLONE SODIUM SUCCINATE, UP TO 125 MG Ordered: 07-Jun-2015 Pending Giovani Hutchins MD INJECTION, METHYLPREDNISOLONE SODIUM SUCCINATE, UP TO 125 MG Ordered: 19-Aug-2015 Pending Curtisa MEDIA MONITOR, Dafne Acevedoa MEDIA MONITOR, Radha INJECTION, METHYLPREDNISOLONE SODIUM SUCCINATE, UP TO 125 MG Ordered: 31-Jul-2014 Pending Vanessa Chen MD M INJECTION, METHYLPREDNISOLONE SODIUM SUCCINATE, UP TO 125 MG Ordered: 30-Sep-2011 Pending Fast DO, Jackie A INJECTION, METHYLPREDNISOLONE SODIUM SUCCINATE, UP TO 125 MG Ordered: 06-Jun-2015 Pending Giovani Hutchins MD INJECTION, METHYLPREDNISOLONE SODIUM SUCCINATE, UP TO 125 MG Ordered: 08-Aug-2014 Pending Ciesa MEDIA MONITOR, Radha Ciesa MEDIA MONITOR, Radha INJECTION, METHYLPREDNISOLONE SODIUM SUCCINATE, UP TO 125 MG Ordered: 06-Sep-2012 Pending Anahi Alex DO INJECTION, METHYLPREDNISOLONE SODIUM SUCCINATE, UP TO 125 MG Ordered: 07-Aug-2014 Pending Curtisalcon DOUGHERTYDafne CNP, Dafne Mota INJECTION, METHYLPREDNISOLONE SODIUM SUCCINATE, UP TO 125 MG Ordered: 26-Oct-2012 Pending Jackie Christina DO A INJECTION, METHYLPREDNISOLONE SODIUM SUCCINATE, UP TO 125 MG Ordered: 20-Aug-2015 Pending Curtisalcon DOUGHERTYDafne CNP, Dafne Mota INJECTION, METHYLPREDNISOLONE SODIUM SUCCINATE, UP TO 125 MG Ordered: 16-Dec-2010 Pending Marquise JHAVERI Jackie A Instructions Name Dates Details Nonsmoker [...] BLD CNT, COMPL CBC W/AUTO DIFF WBC (38106) Indication: Benign essential hypertension Other and unspecified hyperlipidemia : DISCONTINUED - LIPID PANEL (03061) Indication: Other and unspecified hyperlipidemia Hypothyroidism : DISCONTINUED - TSH (39325) Indication: Hypothyroidism Other and unspecified hyperlipidemia : DISCONTINUED - LIPID PANEL (61339) Indication: Other and unspecified hyperlipidemia DIABETES MELLITUS WITHOUT MENTION OF COMPLICATION; TYPE II OR UNSPECIFIED TYPE, NOT STATED UNCONTROLLED : DISCONTINUED - MICROALBUMIN: CREATININE RATIO (26944) AND (87067) Indication: DIABETES MELLITUS WITHOUT MENTION OF COMPLICATION; TYPE II OR UNSPECIFIED TYPE, NOT STATED UNCONTROLLED DIABETES MELLITUS WITHOUT MENTION OF COMPLICATION; TYPE II OR UNSPECIFIED TYPE, NOT STATED UNCONTROLLED : DISCONTINUED - METABOLIC PANEL, COMPREHENSIVE ([id number]) Indication: DIABETES MELLITUS WITHOUT MENTION OF COMPLICATION; TYPE II OR UNSPECIFIED TYPE, NOT STATED UNCONTROLLED DIABETES MELLITUS WITHOUT MENTION OF COMPLICATION; TYPE II OR UNSPECIFIED TYPE, NOT STATED UNCONTROLLED : DISCONTINUED - CBC WITH MANUAL DIFF ([id number]) Indication: DIABETES MELLITUS WITHOUT MENTION OF COMPLICATION; TYPE II OR UNSPECIFIED TYPE, NOT STATED UNCONTROLLED DIABETES MELLITUS WITHOUT MENTION OF COMPLICATION; TYPE II OR UNSPECIFIED TYPE, NOT STATED UNCONTROLLED : DISCONTINUED - METABOLIC PANEL, COMPREHENSIVE ([id number]) Indication: DIABETES MELLITUS WITHOUT MENTION OF COMPLICATION; [...] mellitus, uncontrolled : DISCONTINUED - LIPID PANEL ([id number]) Indication: Type 2 or unspecified type diabetes [...] Indication: Meralgia paresthetica Encounters Office Visit On: 17-May-2018 14:32 Encounter Reason: [...] patient does not have durable power of assistant prosecuting attorney or living will. The patient has noticed dissatisfaction with life, dropping activ ities and interests, feeling emptiness in life, getting bored, poor spirits most of time, feeling sad most of time, feeling helpless, staying at home rather than doing something new or going out, having problems with memory than others and lack of energy. Other providers contributing to the patient's care are community development planner (dr. granado) and other: ([facility]- pt see's eye jun 01 [...] Mother was admitted then to [facility], [ADDITIONAL REASON] Diabetes Type II, Follow Up [...] Mammo, Routine Female and Dexa) (Renamed from [email or web address] V72.31 (p,m,d)) End: 19-Apr-2013 15:23 [facility] [...] Mammo, Routine Female and Dexa) (Renamed from [employer] V72.31 (p,m,d)) [facility] [...] and she is feeling better from the [facility] Diagnosis: DIABETES MELLITUS WITHOUT MENTION OF COMPLICATION; [...] for Flu like symptoms: Son diagnosed with [id number] Diagnosis: BRONCHITIS, NOT SPECIFIED ACUTE OR CHRONIC [...] the patient is following up for inc katerin All identified problems below ,blood sugar issues [...] he wants her to do exercise at [employer] and has her set up for activiity [...] : (180's). 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
--- OUTSIDE RECORDS SUMMARY | 2018-09-20 12:00 | XMS RPT_ITS | Continuity of Care Document ---
:1950 Author Organization [facility] Address [address] [place] [address] Phone Care Team Providers Name Role Phone Dafne Jaime CNP Unavailable Juan Catherine Unavailable Rogelio Granado Unavailable Lindsey Cheek Unavailable Unavailable Slarb LAND LEVELERGloria Unavailable Unavailable Yuval Rodas Unavailable Unavailable ROLLY [...] for 90 days Refills: 3 Ordered:18-Nov-2016 Addison DOUGHERYT Dafne Kriss DOUGHERTY Dafne Mota Start : [...] Refills: 1 Ordered:19-Aug-2016 Addison DOUGHERTY Dafne Kriss DOUHGERTY Dafne Mota Start : 19-Aug-2016 Active Desoximetasone [...] Quantity: 120 {Tablet} Refills: 3 Ordered:24-Mar-2017 Curtisa WIRE STRAIGHTENER, Dafne Lewa WIRE STRAIGHTENER, Radha Start : 24-Mar-2017 End : 24-Mar-2017 Inactive Atenolol 50 MG Oral Tablet 1 (one) Tablet one in am, 2 in pm for 90 days Quantity: 180 {Tablet} Refills: 3 Ordered:24-Mar-2017 Ciezraa WIRE STRAIGHTENER, [facility] Start : 24-Mar-2017 End : 24-Mar-2017 [...] Inactive Comments:05/23/07 samples up front for pt bulk picker/ko CRESTOR, 10MG (Oral Tablet) 1 tab [...] : 09-Dec-2017 End : 19-Jan-2018 Inactive Pen [place] 31G X 6 MM Miscellaneous uad Misc [...] Quantity: 20 {Tablet} Refills: 0 Ordered:19-Aug-2015 Tggreg WIRE STRAIGHTENER, Dafne Kriss DOUGHERTY, Radha Start : 19-Aug-2015 [...] 24-Aug-2011 End : 03-Feb-2012 Inactive VITAMIN D, 06571OAGM (Oral Capsule) 1 (one) Capsule q week [...] Alex DO End : 12-Mar-2006 Discontinued Ergocalciferol 97656 UNIT Oral Capsule 1 (one) Capsule Capsule [...] Quantity: 3 {Inhaler} Refills: 2 Ordered:17-Feb-2016 Slarb LAND LEVELER, Gloria Start : 11-Feb-2016 End : 17-Feb-2016 Discontinued Flovent HFA 110 MCG/ACT Inhalation Aerosol 2 Puff bid for 90 days Quantity: 30 {QS} Refills: 3 Ordered:17-Feb-2016 Slarb LAND LEVELER, Gloria Start : 11-Feb-2016 End : 17-Feb-2016 Discontinued GUAIATUSSIN AC, 100-10MG/5ML (Oral Syrup) 1 Syrup TID prn for 0 days Quantity: 8 {Ounce(s)} Refills: 0 Ordered:18-Mar-2012 Ivanna Maddox Start : 18-Mar-2012 End : 18-Mar-2012 Discontinued Comments:eight ounces Ipratropium-Albuterol 0.5-2.5 (3) MG/3ML Inhalation Solution 1 (one) Solution Solution qid PRN for 0 days Quantity: 90 {QS} Refills: 3 Ordered:13-May-2016 Slarb LAND LEVELER, Gloria Start : 13-Feb-2016 End : 13-May-2016 [...] Quantity: 30 {Tablet} Refills: 6 Ordered:31-Dec-2017 Addison WIRE STRAIGHTENER, Dafne Monterroso WIRE STRAIGHTENER, Dafne Mota Start : 31-Dec-2017 End : [...] Lead Electrocardiogram Result: Comments: See Note; NOTES: [facility] Cardiovascular Services [address] [place] [address] 12 Lead EKG 01/22/18 2044 MR#: [id number] Acct: [id number] Name: IMANI VINSON Lottie p #: [id number] : 1950 67 From: Ramiro Moreno MD [...] Confirmed by Elia UNGER MD, RAMIRO ([id number]), fan mail editor RUBI VILLATORO (56) on 01/25/2018 3:09:19 PM Referred By: Confirmed By:RAMIRO MORENO MD 01/25/18 1509 Date Ramiro Moreno MD CC: Dafne Jaime BODY COMPONENT ENGINEER; Tyson Hernandez DO Signed 24-Jan-2018 Emergency Department Summary Result: Comments: See Note; NOTES: [facility] Medical Records Department [address] [place] [address] Emergency Department Summary 01/22/18 2318 MR#: [id number] Acct: [id number] Name: IMANI VINSON Rep #: [id number] : 1950 67 From: Tyson Hernandez DO [...] 2. Hypertension This note was generated with [employer] dictation software. It may contain incorrect words, [...] your Primary Care Provider. Call [facility] ([phone]) or report to the closest Emergency Room. Call 911 if necessary. 01/24/18 0026 <Electronically signed by Tyson Hernandez DO> Date _ Tyson Hernandez DO Cosigner Signature (If Indicated): Date CC: Dafne Jaime BODY COMPONENT ENGINEER 30-Dec-2017 12 Lead Electrocardiogram Result: Comments: See Note; NOTES: [facility] Cardiovascular Services [address] [place] [address] 12 Lead EKG 12/25/17 1326 MR#: [id number] Acct: [id number] Name: IMANI VINSON Lottie leach #: [id number] : 1950 67 From: Ramiro Moreno MD [...] Confirme d by RAMIRO MORENO MD ([id number]), fan mail editor RUBI VILLATORO (56) on 12/30/2017 3:06:27 PM Referred By: Yoselin Oconnell Confirmed By:RAMIRO MORENO MD 12/30/17 1506 Date _ Ramiro Moreno MD CC: Dafne Jaime NP; Ivanna Puri MD Signed 25-Dec-2017 Emergency Department Summary Result: Comments: See Note; NOTES: [facility] Medical Records Department [address] [place] [address] Emergency Department Summary 12/25/17 1538 MR#: [id number] Acct: [id number] Name: IMANI VINSON Rep #: [id number] : 1950 67 From: Ivanna Puri MD [...] Cephalgia, improved This note was generated with [employer] dictation software. It may contain inco rrect [...] Primary Ca re Provider. Call [facility] ([phone]) or report to the closest Emergency Room. Call 911 if necessary. 12/25/17 1636 <Electronically signed by Ivanna Puri MD> Date Ivanna Puri MD Cosigner Signature (If Indicated): Date CC: Dafne Addison BRUNNER 25-Dec-2017 Discharge Instruction Result: Comments: See Note; NOTES: [facility] Medical Records Department [address] [facility] [place] [address] Discharge Instruction 12/25/17 1542 MR#: [id number] Acct: [id number] Name: IMANI VINSON Rep #: [id number] : 1950 67 From: Ivanna Puri MD [...] your Primary Care Provider. Call [facility] ([phone]) or report to the closest Emergency Room. Call 911 if necessary. 12/25/17 1543 <Electronically signed by Ivanna Puri MD> D ate Ivanna Puri MD Cosigner Signature (If Indicated): Date CC: Dafne Jaime NP 25-Dec-2017 Chest 1 View (Portable) Result: Comments: See Note; NOTES: [facility] Imaging Services [address] [place] [address] Chest 1 View (Portable) MR#: [id number] Acct: [id number] Name: IMANI VINSON Rep #: [id number] : 1950 F 67 From: Walter Corbin MD PCP: Dafne Jaime NP Status: REG ER Study: Chest 1 View (Portable) Date of Exam: 12/25/17 Exam# [id number] Ordering Dr: Ivanna Puri MD STUDY: X-RAY [...] at 14:22 EDT Tel , Service support [phone], RAD/Chest 1 View (Portable) CC: Dafne Jaime NP; Ivanna Puri MD Telephone Clerk Telegraph Office: Signed 23-Dec-2017 Abdomen/Pelvis without Cont Result: Comments: See Note; NOTES: [facility] Imaging Services [address] [place] [address] Abdomen/Pelvis without Cont MR#: [id number] Acct: [id number] Name: IMANI VINSON Rep #: [id number] : 1950 F 67 From: Leobardo Mckenzie MD PCP: Dafne Jaime NP Status: REG CLI Study: Abdomen/Pelvis without Cont Date of Exam: 12/23/17 Exam# [id number] Ordering Dr: Yoselin Oconnell BODY COMPONENT ENGINEER-C STUDY: CT ABDOMEN AND PELVIS WITHOUT CONTRAST [...] Leobardo Mckenzie MD at 12:50 EDT Tel [phone], Service support , Fax CC: Dafne Jaime NP; MARCO ANTONIO Oconnell Telephone Clerk Telegraph Office: Signed 12-Feb-2017 Chest without Contrast Result: Comments: See Note; NOTES: [facility] Imaging Services [address] [place] [address] Chest without Contrast MR#: [id number] Acct: [id number] Name: IMANI VINSON Naveen Rep #: [id number] : 1950 F 66 From: Ace Olivia DO PCP: Dafne Jaime Status: REG CLI Study: Chest without Contrast Date of Exam: 02/12/17 Exam# [id number] Ordering Dr: Rogelio Granado MD STUDY: CT [...] Ace Olivia DO at 11:21 EDT Tel [phone], [employer] e support , CC: Dafne Jaime; Rogelio Granado MD Telephone Clerk Telegraph Office: Signed 19-Jan-2017 Chest PA and Lateral Result: Comments: See Note; NOTES: [facility] Imaging Services [address] [place] [address] Verdana 4d Chest PA and Lateral MR#: [id number] Acct: [id number] Name: IMANI VINSON Rep #: [id number] : 1950 F 66 From: Leobardo Mckenzie MD PCP: Dafne Jaime Status: REG CLI Study: Chest PA and Lateral Date of Exam: 01/19/17 Exam# [id number] Ordering Dr: Rogelio Granado MD UDY: X-RAY [...] Leobardo Mckenzie MD at 12:43 EDT Tel [phone], Service support [phone], CC: Dafne Jaime; Rogelio Granado MD Telephone Clerk Telegraph Office: Signed 17-Oct-2015 Spirometry (89384) Result: 20-Aug-2015 Chest PA and Lateral Result: Comments: See Note; NOTES: [facility] Imaging Services [address] [place] [address] Verdana 4d Chest PA and Lateral MR#: [id number] Acct: [id number] Name: IMANI FRASER Rep #: [id number] : 1950 F 64 From: Leobardo Mckenzie MD PCP: Jackie Christina DO Status: REG CLI Study: Chest PA and Lateral Date of Exam: 08/20/15 Exam# [id number] Ordering Dr: Dafne Jaime STUDY: X-RAY CHEST [...] Leobardo Mckenzie MD at 13:08 EST Tel [phone], Service support [phone] , RAD/Chest PA and Lateral IMPRESSION: Hyperinflation. No acute abnormality is seen. Electronically Signed: Leobardo Mckenzie MD at 13:08 EST Tel [phone], Service support [phone], CC: Dafne Jaime; Jackie Christina DO Telephone Clerk Telegraph Office: Signed 06-Jun-2015 Chest PA and Lateral Result: Comments: See Note; NOTES: [facility] Imaging Services [address] [place] [address] Verdana 4d Chest PA and Lateral MR#: [id number] Acct: [id number] Name: IMANI FRASER Rep #: [id number] : 1950 F 64 From: Leobardo Mckenzie MD PCP: Jackie Christina DO Status: REG CLI Study: Chest PA and Lateral Date of Exam: 06/06/15 Exam# [id number] Ordering Dr: Giovani Hutchins STUDY: X-RAY CHEST [...] Leobardo Mckenzie MD at 14:52 EST Tel [phone], Service support [phone], 0056 RAD/Chest PA and Lateral IMPRESSION: Hyp erinflation. Electronically Signed: Leobardo Mckenzie MD at 14:52 EST Tel [phone], Service support [phone], CC: Jackie Hutchins Telephone Clerk Telegraph Office: Signed 06-Aug-2014 Chest PA and Lateral Result: Comments: See Note; NOTES: [facility] Imaging Services [address] [place] [address] Radiology Report MR#: [id number] Acct: [id number] Name: IMANI VINSON Rep #: [id number] : 1950 F 63 From: Leobardo Mckenzie MD PCP: Jackie Christina DO Status: REG CLI Study: Chest PA and Lateral Date of Exam: 08/06/14 Exam# [id number] Ordering Dr: Dafne Jaime STUDY: X-RAY CHEST [...] Leobardo Mckenzie MD at 13:03 EST Tel [phone], Service support [phone], CC: Dafne Jaime; Jackie Christina DO Telephone Clerk Telegraph Office: Signed 05-May-2013 [employer] CAD Result: Comments: See Note; NOTES: [facility] Imaging Services [address] [place] [address] Breast Imaging Report MR#: [id number] Acct: [id number] Name: IMANI VINSON Rep #: [id number] : 1950 F 62 From: Leobardo Mckenzie MD PCP: Status: PRE CLI Exam# [id number] Ordering Dr: Jackie Christina DO MAMMOGRAPHY - [...] 05, 2013 at 2:48:1 1 PM EST [phone] Electronically Signed GP/GP If you are the referring physician and would like to consult with the radiologist who provided this interpretation, please contact Leobardo thompson M.D. at [phone]. If this radiologist is unavailable, you will be directed to another radiologist to assist. If you are a patient with a question regarding this report, please contact you r referring physician directly. Professional Interpretation Provided By: [employer], Phone , These documents contain legally protected [...] of these documents. CC: Jackie Christina DO Telephone Clerk Telegraph Office: Signed Immunization Name Dates Details Pneumococcal (2 [...] kg/m2 Body Surface Area Calculated 2.23 m2 63-Vqw-971336:47 Temperature 97.8 f Pulse 68 /min Comments: [...] kg/m2 Body Surface Area Calculated 2.23 m2 03-Ykn-828694:35 Temperature 98.7 f Comments: Method: Oral Pulse [...] Calculated 2.36 m2 Head Circumference 0.00 cm 08-Keu-524966:00 Pulse 64 /min Comments: Pattern: Regular Respiration [...] Description Value Details :50 HgA1C , Office (49635) HgA1C , Office 6.4 % (Normal) Range: 4.6 - 7.1 :50 Blood Glucose , Office (81926) Blood Glucose , Office 137 (Normal) :51 CALCIFEDIOL (47772) Comments: PATIENT NOT FASTINGPERFORMED BY: [facility] Hospital[facility]8447 [facility] [id number] Vitamin D, 25-Hydroxy 35.3 ng/mL (Normal) Range: 30.0-100.0 Comments: Vitamin D deficiency has been defined by the [place] ofMedicine and an Endocrine Society practice guideline as alevel of serum 25-OH vitamin D less than 20 ng/mL (1,2).The Endocrine Society went on to further define vitamin Dinsufficiency as a level between 21 and 29 ng/mL (2).1. IOM ([place] of Medicine). 2010. Dietary reference intakes for calcium and D. [place]: The National Academies Press.2. Eleni MF, Lorne MORTON, Dayron WALTON, et al. Evaluation, treatment, and prevention of vitamin D deficiency: an Endocrine Society clinical practice guideline. JCEM. 2010; 96(7):1911-30. 1-Uwo-140897:43 METANEPHRINES - URINE (76506) Comments: PATIENT NOT FASTINGPERFORMED BY: [address] [id number] Metanephrine, U,24hr 120 {ug/24_hr} (Normal) Range: 45-290 Comments: (Hypertensive) >17 years 11 months: 35 - 460 Metanephrine, Ur 60 ug/L (Normal) Normetanephr.,U,24h 404 {ug/24_hr} (Normal) Range: 82-500 Comments: (Hypertensive) >17 years 11 months: 110 - 1050 Normetanephrine, Ur 202 ug/L (Normal) 2-Ovi-263634:43 CATECHOLAMINES TOTAL, URINE Comments: PATIENT NOT FASTINGPERFORMED BY: [address] [id number] Information: [id number] (17600) Dopamine, Ur, 24hr 356 {ug/24_hr} (Normal) Range: 0-510 Dopamine, Urine 178 ug/L (Normal) Norepinephrine,U,24h 78 {ug/24_hr} (Normal) Range: 0-135 Norepinephrine, Ur 39 ug/L (Normal) Epinephrine, U, 24hr 4 {ug/24_hr} (Normal) Range: 0-20 Epinephrine, Urine 2 ug/L (Normal) 3-Kop-191091:43 URINE VMA (26490) Comments: PATIENT NOT FASTINGPERFORMED BY: [address] [id number] VMA, Urine, 24hr 5.0 {mg/24_hr} (Normal) Range: 0.0-7.5 Comments: This test was developed and its performance characteristicsdetermined by [employer]. It has not been cleared or approvedby the Food and Drug Administration. VMA, Urine 2.5 mg/L (Normal) 28-Vyz-297443:44 URINE MEHREEN CULTURE-IDENTIFICATN Comments: PERFORMED BY: [employer] [facility] [id number] Information: SRC:UC (76600) Result 1 MUG (Normal) Comments: Mixed urogenital flora1,000 Colonies/mL Urine Culture,Comprehensive Final report (Normal) 36-Rfp-077201:41 Urinalysis, Office (04129) UA - LEUKOCYTE ESTERASE Moderate (Normal) UA - NITRITE Negative (Normal) URINE UROBILINGN SUNNY TIMED Normal mg/dL (Normal) UA - PROTEIN Negative mg/dL (Normal) UA - PH 6.0 (Normal) UA - BLOOD Hemolyzed Trace (Normal) UA - SPECIFIC GRAVITY 1.020 (Normal) UA - KETONES Negative mg/dL (Normal) UA - BILIRUBIN Negative (Normal) UA - GLUCOSE Negative (Normal) 73-Njz-811339:10 CBC & PLATELETS (AUTO) Comments: PATIENT NOT FASTINGPERFORMED BY: [employer] [facility] [id number] (23546) Platelets 270 {x10E3/uL} (Normal) Range: 150-379 RDW 13.8 % (Normal) Range: 12.3-15.4 MCHC 33.7 g/dL (Normal) Range: 31.5-35.7 MCH 29.7 pg (Normal) Range: 26.6-33.0 MCV 88 fL (Normal) Range: 79-97 Hematocrit 40.1 % (Normal) Range: 34.0-46.6 Hemoglobin 13.5 g/dL (Normal) Range: 11.1-15.9 RBC 4.54 {x10E6/uL} (Normal) Range: 3.77-5.28 WBC 6.8 {x10E3/uL} (Normal) Range: 3.4-10.8 34-Ufc-167655:10 RENAL FUNCTION PANEL (04758) Comments: PATIENT NOT FASTINGPERFORMED BY: [employer] Onkjgj8164 [facility] [id number] Albumin 3.8 g/dL (Normal) Range: 3.6-4.8 Phosphorus [...] 8-27 Glucose 133 mg/dL (Abnormal) Range: 65-99 79-Ulz-888811:10 PARATHORMONE (82593) Comments: PATIENT NOT FASTINGPERFORMED BY: [facility] Kgplhu5486 [facility] [id number] PTH, Intact 32 pg/mL (Normal) Range: 15-65 51-Duy-099173:00 Urinalysis, Complete Comments: How was Urine Obtained? COURT WORKER TO [facility] [address] [place], [place], [id number] MUCUS, URINE 0 SEEN {/hpf} (Normal) BACTERIA [...] (Normal) CLARITY Clear (Normal) COLOR Yellow (Normal) 84-Zhz-579960:04 CBC W/Diff, Automated Comments: [facility] [address] [place], [place], [id number] PLT EST ADEQUATE (Normal) SMEAR COMMENT SCANNED [...] 4.2-5.4 WBC 9.7 K/mm3 (Normal) Range: 4.4-11.0 29-Hmr-024595:04 Comprehensive Metabolic Profil Comments: [facility] [address] [place], [place], [id number] GAP 8 (Normal) Range: 5-15 CO2 26.0 [...] criteria.Please note revised GLUCOSE reference range /02/2018. 32-Yqj-499465:04 Lipase Comments: [facility] [address] [facility] [place], [place], [id number] LIPASE 346 U/L (Normal) Range: 73-393 41-Udu-161518:04 Troponin-I Comments: [facility] [address]hg[address] [facility] [place], [place], [address] TROPONIN-I < 0.015 ng/mL (Normal) Comments: TROPONIN-I EXPECTED VALUES <0.045 Negative 0.045 - 0.590 Consistent with Cardiac Damage > OR = 0.600 Critical Value Not every elevated troponin is indicative of UT. T hesevalues should be used with clinical judgement in examiningthe patient's clinical picture for diagnosis. To establisha diagnosis of UT versus myocardial injury, there must be ademonstrated rise and/ or fall in the troponin values, inaddition to ischemic symptoms, EKG changes, new regionalwall motion abnormality, and/or angiographical evidence. PLEASE NOTE: REFERENCE RANGES EDITED 11/08/1712-Jan-201871-Usk-143322:27 TSH (THYROID STIMULATING Comments: January 12; PATIENT WAS FASTINGPERFORMED BY: [employer] [facility] [id number] HORMONE) (73522) TSH 1.920 {uIU/mL} (Normal) Range: 0.450-4.500 25-Cil-403346:27 CBC & PLATELETS (AUTO) Comments: after January 12; PATIENT WAS FASTINGPERFORMED BY: [employer]70 [facility] [id number] Information: [id number],C40967 (93573) Platelets 288 {x10E3/uL} (Normal) Range: 150-379 RDW 13.8 % (Normal) Range: 12.3-15.4 MCHC 34.8 g/dL (Normal) Range: 31.5-35.7 MCH 30.8 pg (Normal) Range: 26.6-33.0 MCV 88 fL (Normal) Range: 79-97 Hematocrit 40.2 % (Normal) Range: 34.0-46.6 Hemoglobin 14.0 g/dL (Normal) Range: 11.1-15.9 RBC 4.55 {x10E6/uL} (Normal) Range: 3.77-5.28 WBC 6.2 {x10E3/uL} (Normal) Range: 3.4-10.8 25-Api-917372:27 LIPID PANEL (25232) Comments: after January 12; PATIENT WAS FASTINGPERFORMED BY: [facility] [id number] LDL/HDL Ratio 2.1 {ratio} (Normal) Range: 0.0-3.2 Comments: LDL/HDL Ratio Men Women 1/2 Avg.Risk 1.0 1.5 Av g.Risk 3.6 3.2 2X Avg.Risk 6.2 5.0 3X Avg.Risk 8.0 6.1 LDL Cholesterol Calc 88 mg/dL (Normal) Range: 0-99 VLDL Cholesterol Edgardo 46 mg/dL (Abnormal) Range: 5-40 HDL Cholesterol 42 mg/dL (Normal) Triglycerides 230 mg/dL (Abnormal) Range: 0-149 Cholesterol, Total 176 mg/dL (Normal) Range: 100-199 52-Acj-664207:27 HGB A1C (43246) Comments: do after January 12; PATIENT WAS FASTINGPERFORMED BY: [facility] Dpmbpz7582 [facility] [id number] Hemoglobin A1c 7.6 % (Abnormal) Range: 4.8-5.6 Comments: . Pre-diabetes: 5.7 - 6.4 Diabetes: >6.4 Glycemic control for adults with diabetes: <7.0 60-Sfu-076303:30 Basic Metabolic Profile (BMP) Comments: [facility] [address] [place], [place], [phone] GAP 8 (Normal) Range: 5-15 CO2 25.0 [...] A.D.A. criteria.Please note revised GLUCOSE reference range oefguhbvj25/02/2018. 59-Txd-784080:30 Carboxyhemoglobin Frac (CO) Comments: [facility] [address] [place], [place], [address] COHb 2.1 % (Abnormal) Range: 0.0-1.5 Comments: * NON-SMOKER RANGE 1.6 - 5.0% * LIGHT SMOKER RANGE 5.1 - 9.0% * HEAVY SMOKER RANGE :30 CBC W/Diff, Automated Comments: [facility] [address] [place], [place], [address] Absolute Lymph 0.66 {X10_3/ul} (Abnormal) Range: 0.83-4.51 [...] 4.2-5.4 WBC 12.9 K/mm3 (Abnormal) Range: 4.4-11.0 91-Pxf-546690:30 Lipase Comments: [facility] [address] [place], [place], [address] LIPASE 126 U/L (Normal) Range: 73-393 71-Qmw-990151:30 Liver Profile Comments: [facility] [address] [place], [address] D BILI 0.13 mg/dL (Normal) Range: 0.00-0.30 T BILI 0.50 mg/dL (Normal) Range: 0.20-1.00 ALT 32 U/L (Normal) Range: 13-56 ALK P 154 U/L (Abnormal) Range: 45-117 AST 25 U/L (Normal) Range: 15-37 GLOB 4.2 g/dL (Normal) Range: 2.2-4.2 ALB 3.5 g/dL (Normal) Range: 3.2-5.0 T PROT 7.7 g/dL (Normal) Range: 6.4-8.2 29-Jps-629170:30 Urinalysis, Complete Comments: Order Date: 12/25/17How was Urine Obtained? CLEAN [facility] [address] [place], [address] MUCUS, URINE 0 SEEN {/hpf} [...] (Abnormal) CLARITY Clear (Normal) COLOR Yellow (Normal) 92-Xsb-656050:17 Urinalysis, Office (05138) UA - LEUKOCYTE ESTERASE Negative (Normal) UA - NITRITE Negative (Normal) URINE UROBILINGN SUNNY TIMED Normal mg/dL (Normal) UA - PROTEIN Negative mg/dL (Normal) UA - PH 5.0 (Normal) Comments: 5.5 UA - BLOOD Hemolyzed Trace (Normal) UA - SPECIFIC GRAVITY 1.005 (Normal) UA - KETONES Negative mg/dL (Normal) UA - BILIRUBIN Negative (Normal) UA - GLUCOSE 500 (Abnormal) 72-Wba-802801:15 URINE MEHREEN CULTURE-SUNNY COL Comments: PATIENT NOT FASTINGPERFORMED BY: [employer] [facility] Phwgcm3281 [facility]At[facility] [id number] Information: SRC: COUNT (22527) Result 1 MUG (Normal) Comments: Mixed urogenital flora10,000-25,000 colony forming units per mL Urine Final report (Normal) Culture,Comprehensive 92-Eqg-727831:48 URINE MEHREEN CULTURE-IDENTIFICATN Comments: PATIENT NOT FASTINGPERFORMED BY: [employer] [facility] Vjvdbb1065 [facility] [id number] Information: SRC: (70567) Antimicrobial MIHEAD (Normal) Comments: S = Susceptible; [...] mL (Abnormal) Urine Final report Culture,Comprehensive (Abnormal) 16-Qiu-200678:24 Urinalysis, Office (71499) UA - LEUKOCYTE ESTERASE Small (Normal) UA - NITRITE Negative (Normal) URINE UROBILINGN SUNNY TIMED Normal mg/dL (Normal) UA - PROTEIN Trace mg/dL (Normal) UA - PH 6 (Abnormal) UA - BLOOD Hemolyzed Large (Normal) UA - SPECIFIC GRAVITY 1.015 (Normal) UA - KETONES Negative mg/dL (Normal) UA - BILIRUBIN Negative (Normal) UA - GLUCOSE 500 (Abnormal) 37-Qfo-151396:33 Blood Glucose , Office (18514) Blood Glucose , Office 159 (Normal) 57-Bzl-924454:33 HgA1C , Office (82483) HgA1C , Office 7.0 % (Normal) Range: 4.6 - 7.1 64-Fau-560746:10 CBC, Platelets & Auto Diff Comments: PATIENT WAS FASTINGPERFORMED BY: [facility] HospitalCtpety3307 [facility] [id number] (23583) Immature Grans (Abs) 0.0 {x10E3/uL} (Normal) Range: [...] 3.77-5.28 WBC 7.0 {x10E3/uL} (Normal) Range: 3.4-10.8 90-Vpb-911019:10 HGB A1C (34531) Comments: PATIENT WAS FASTINGPERFORMED BY: [facility] [facility] [id number] Hemoglobin A1c 7.4 % (Abnormal) Range: 4.8-5.6 Comments: . Pre-diabetes: 5.7 - 6.4 Diabetes: >6.4 Glycemic control for adults with diabetes: <7.0 72-Uil-109203:10 LIPID PANEL (70046) Comments: PATIENT WAS FASTINGPERFORMED BY: [facility] [facility] [id number] LDL/HDL Ratio 2.4 {ratio} (Normal) Range: 0.0-3.2 Comments: LDL/HDL Ratio Men Women 1/2 Avg.Risk 1.0 1.5 Av g.Risk 3.6 3.2 2X Avg.Risk 6.2 5.0 3X Avg.Risk 8.0 6.1 LDL Cholesterol Calc 107 mg/dL (Abnormal) Range: 0-99 VLDL Cholesterol Edgardo 28 mg/dL (Normal) Range: 5-40 HDL Cholesterol 45 mg/dL (Normal) Triglycerides 138 mg/dL (Normal) Range: 0-149 Cholesterol, Total 180 mg/dL (Normal) Range: 100-199 [id number] Metabolic Panel, Comprehensive Comments: PATIENT WAS FASTINGPERFORMED BY: [id number] [facility] [id number] ([id number]) ALT (SGPT) 15 [iU]/L (Normal) Range: 0-32 [...] 8-27 Glucose 141 mg/dL (Abnormal) Range: 65-99 [id number]-Pux-[id number]:10 MICROALBUMIN: CREATININE RATIO Comments: PATIENT WAS FASTINGPERFORMED BY: [email or web address] [id number] ([id number]) AND (26164) Alb/Creat Ratio <3.8 {mg/g_creat} (Normal) Range: 0.0-30.0 Albumin, Urine <3.0 ug/mL (Normal) Creatinine, Urine 78.1 mg/dL (Normal) 47-Etm-973866:10 TSH (17229) Comments: PATIENT WAS FASTINGPERFORMED BY: [employer]6370 [facility] [id number] TSH 2.160 {uIU/mL} (Normal) Range: 0.450-4.500 64-Hpf-396630:10 URINALYSIS W/O MICRO (59930) Comments: PATIENT WAS FASTINGPERFORMED BY: [employer]io [facility] [id number] Microscopic Examination MICNIP (Normal) Comments: Microscopic not indicated and not performed. Nitrite, Urine Negative (Normal) Urobilinogen,Semi-Qn 0.2 mg/dL (Normal) Range: 0.2-1.0 Bilirubin Negative (Normal) Occult Blood Negative (Normal) Ketones Negative (Normal) Glucose 3+ (Abnormal) Protein Negative (Normal) WBC Esterase Negative (Normal) Appearance Clear (Normal) Urine-Color Yellow (Normal) pH 5.5 (Normal) Range: 5.0-7.5 Specific Caldwell >=1.030 (Abnormal) Range: 1.005-1.030 28-Vkh-084391:17 HGB A1C (15124) Comments: today; PATIENT NOT FASTINGPERFORMED BY: [facility] Xlytkh0472 [facility] [id number] Hemoglobin A1c 7.4 % (Abnormal) Range: 4.8-5.6 Comments: . Pre-diabetes: 5.7 - 6.4 Diabetes: >6.4 Glycemic control for adults with diabetes: <7.0 51-Onp-521000:14 TSH (THYROID STIMULATING Comments: PATIENT WAS FASTINGPERFORMED BY: [facility] Rhtpzc13[address] [facility] [place] [id number] HORMONE) (76761) TSH 2.750 {uIU/mL} (Normal) Range: 0.450-4.500 12-Cqy-962473:14 Lipid Panel (97907) Comments: PATIENT WAS FASTINGPERFORMED BY: [facility] Mhhoay4052 [facility] [id number] LDL/HDL Ratio 2.0 {ratio_units} (Normal) Range: 0.0-3.2 Comments: LDL/HDL Ratio Men Women 1/2 Avg.Risk 1.0 1.5 Av g.Risk 3.6 3.2 2X Avg.Risk 6.2 5.0 3X Avg.Risk 8.0 6.1 LDL Cholesterol Calc 96 mg/dL (Normal) Range: 0-99 VLDL Cholesterol Edgardo 22 mg/dL (Normal) Range: 5-40 HDL Cholesterol 49 mg/dL (Normal) Triglycerides 110 mg/dL (Normal) Range: 0-149 Cholesterol, Total 167 mg/dL (Normal) Range: 100-199 64-Coy-214163:14 CALCIFEDIOL (80479) Comments: PATIENT WAS FASTINGPERFORMED BY: [facility] Gvoprb0641 [facility] [id number] Vitamin D, 25-Hydroxy 30.7 ng/mL (Normal) Range: 30.0-100.0 Comments: Vitamin D deficiency has been defined by the Wallace ofMedicine and an Endocrine Society practice guideline as alevel of serum 25-OH vitamin D less than 20 ng/mL (1,2).The Endocrine Society went on to further define vitamin Dinsufficiency as a level between 21 and 29 ng/mL (2).1. IOM (Wallace of Medicine). 2010. Dietary reference intakes for calcium and D. [place]: The National Academies Press.2. Eleni MF, Lorne MORTON, Dayron WALTON, et al. Evaluation, treatment, and prevention of vitamin D deficiency: an Endocrine Society clinical practice guideline. JCEM. 2010; 96(7):1911-30. 71-Fnb-805100:14 Metabolic Panel, Comprehensive Comments: PATIENT WAS FASTINGPERFORMED BY: LabCoSt. [facility]'s Wayne HospitalFslbpj9602 [facility] [id number] (33353) ALT (SGPT) 11 [iU]/L (Normal) Range: 0-32 [...] Glucose, Serum 150 mg/dL (Abnormal) Range: 65-99 12-Stp-180876:14 HGB A1C (10943) Comments: PATIENT WAS FASTINGPERFORMED BY: [facility]6370 [facility] [id number] Hemoglobin A1c 6.3 % (Abnormal) Range: 4.8-5.6 Comments: . Pre-diabetes: 5.7 - 6.4 Diabetes: >6.4 Glycemic control for adults with diabetes: <7.0; ADDENDA: OV 19-Jan-201712:28 Angiotensin Convert Enzyme Comments: [facility] (refer to report for specific site)refer to report for address and phone number JHONNY [phone] U/L (Normal) Range: 14-82 Comments: Performed at: [address] [id number] Director: Jarrell Collazo PhD, Phone: [phone]; ADDENDA: Dr Granado 07-Ikg-028727:28 Erythrocyte Sed Rate Comments: [facility] Uyywrgsjlj2371 [place], [place], [id number] SED RATE 6 mm/h (Normal) Range: 0-30 98-Wzh-385474:35 CBC, Platelets & Auto Diff Comments: PATIENT NOT FASTINGPERFORMED BY: Lab[address] [id number] (74871) Immature Grans (Abs) 0.0 {x10E3/uL} (Normal) Range: [...] 3.77-5.28 WBC 6.5 {x10E3/uL} (Normal) Range: 3.4-10.8 15-Fwo-666176:35 HGB A1C (02918) Comments: PATIENT NOT FASTINGPERFORMED BY: [employer]6370 [facility] [id number] Hemoglobin A1c 6.7 % (Abnormal) Range: 4.8-5.6 Comments: . Pre-diabetes: 5.7 - 6.4 Diabetes: >6.4 Glycemic control for adults with diabetes: <7.0 :35 Metabolic Panel, Basic Comments: PATIENT NOT FASTINGPERFORMED BY: [employer]70 [facility] [id number] (01817) Calcium, Serum 10.6 mg/dL (Abnormal) Range: 8.7-10.3 [...] Glucose, Serum 85 mg/dL (Normal) Range: 65-99 48-Ruu-896290:29 Microscopic Examination Comments: PATIENT WAS FASTINGPERFORMED BY: EnventumDzilth-Na-O-Dith-Hle Health CenterWoxsic7416 [facility] [id number] Bacteria Few (Normal) Mucus Threads Present (Normal) Cast Type Hyaline casts (Normal) Casts Present {/lpf} (Abnormal) Epithelial Cells (non renal) 0-10 {/hpf} (Normal) Range: 0 - 10 RBC 0-2 {/hpf} (Normal) Range: 0 - 2 WBC 0-5 {/hpf} (Normal) Range: 0 - 5 :29 URINALYSIS (65973) Comments: PATIENT WAS FASTINGPERFORMED BY: [facility]6370 [facility] [id number] Microscopic Examination See below: (Normal) Comments: Microscopic was indicated and was performed. Nitrite, Urine Negative (Normal) Urobilinogen,Semi-Qn 0.2 mg/dL (Normal) Range: 0.2-1.0 Bilirubin Negative (Normal) Occult Blood Negative (Normal) Ketones Negative (Normal) Glucose Negative (Normal) Protein Trace (Normal) WBC Esterase 1+ (Abnormal) Appearance Clear (Normal) Urine-Color Yellow (Normal) pH 6.0 (Normal) Range: 5.0-7.5 Specific Caldwell 1.027 (Normal) Range: 1.005-1.030 :29 MICROALBUMIN: CREATININE RATIO Comments: PATIENT WAS FASTINGPERFORMED BY: [facility].comCore[facility]6370 [facility] [id number] (41313) AND (01597) Microalb/Creat Ratio 11.0 {mg/g_creat} (Normal) Range: 0.0-30.0 Microalbumin, Urine 29.4 ug/mL (Normal) Creatinine, Urine 266.4 mg/dL (Normal) : CALCIFEDIOL (24914) Comments: PATIENT WAS FASTINGPERFORMED BY: [facility]6[address] [facility] [id number] Vitamin D, 25-Hydroxy 29.5 ng/mL (Abnormal) Range: 30.0-100.0 Comments: Vitamin D deficiency has been defined by the Wallace ofMedicine and an Endocrine Society practice guideline as alevel of serum 25-OH vitamin D less than 20 ng/mL (1,2).The Endocrine Society went on to further define vitamin Dinsufficiency as a level between 21 and 29 ng/mL (2).1. IOM (Wallace of Medicine). 2010. Dietary reference intakes for calcium and D. [place]: The National Academies Press.2. Eleni MF, Lorne MORTON, Dayron WALTON, et al. Evaluation, treatment, and prevention of vitamin D deficiency: an Endocrine Society clinical practice guideline. JCEM. 2010; 96(2):3441-30. 63-Eom-243983:29 Lipid Panel (81832) Comments: PATIENT WAS FASTINGPERFORMED BY: [facility] [id number] LDL/HDL Ratio 1.9 {ratio_units} (Normal) Range: 0.0-3.2 [...] Panel, Comprehensive Comments: PATIENT WAS FASTINGPERFORMED BY: [employer]70 [facility]pmaticAt[facility] [id number] (20766) ALT (SGPT) 14 [iU]/L (Normal) Range: 0-32 [...] Glucose, Serum 77 mg/dL (Normal) Range: 65-99 08-Acj-513909:29 CBC, Platelets & Auto Diff Comments: PATIENT WAS FASTINGPERFORMED BY: LabCoSt. Joseph's [facility] HospitalJtczof9397 [facility] [id number] (10957) Immature Grans (Abs) 0.0 {x10E3/uL} (Normal) Range: [...] 6.6 {x10E3/uL} (Normal) Range: 3.4-10.8 :29 TSH (23718) Comments: PATIENT WAS FASTINGPERFORMED BY: [employer] Dyzvhy3387 [facility] [id number] TSH 2.240 {uIU/mL} (Normal) Range: 0.450-4.500 :29 HGB A1C (67566) Comments: PATIENT WAS FASTINGPERFORMED BY: EnventumSt. Joseph's Wayne HospitalDojyge65[address] [place] [address] [id number] Hemoglobin A1c 6.7 % (Abnormal) Range: 4.8-5.6 Comments: . Pre-diabetes: 5.7 - 6.4 Diabetes: >6.4 Glycemic control for adults with diabetes: <7.0 :23 HGB A1C (42703) Comments: PATIENT NOT FASTINGPERFORMED BY: [facility]comCore[facility]6370 [facility] [id number] Hemoglobin A1c 6.4 % (Abnormal) Range: 4.8-5.6 Comments: . Pre-diabetes: 5.7 - 6.4 Diabetes: >6.4 Glycemic control for adults with diabetes: <7.0 :06 Blood Glucose , Office (66239) Blood Glucose , Office 84 (Normal) : Hemoglobin A1c 6.7 % (Abnormal) Comments: PATIENT NOT FASTINGPERFORMED BY: [facility]6370 [facility] [id number] Information: [id number] [id number] Range: 4.8-5.6 Comments: . Pre-diabetes: 5.7 - 6.4 Diabetes: >6.4 Glycemic control for adults with diabetes: <7.0 :13 HgA1C , Office (35094) HgA1C , Office 6.6 % (Normal) Range: 4.6 - 7.1 :07 Blood Glucose , Office (80027) Blood Glucose , Office 97 (Normal) :51 HgA1C , Office (56181) HgA1C , Office 6.9 % (Normal) Range: 4.6 - 7.1 :51 Blood Glucose , Office (17031) Blood Glucose , Office 129 (Normal) 62-Bmh-371025:35 Sputum Culture (71406) Comments: PATIENT NOT FASTINGPERFORMED BY: [address] [id number] Information: [id number] Result 1 RRF (Normal) Comments: Routine respiratory marilin Lower Respiratory Culture Final report (Normal) :10 Rapid Flu (72880 x 2) Comments: neg Influenza A Ag neg (Normal) 8-Uwp-526958:31 Vitamin D Hydroxy (29512) Comments: PATIENT WAS FASTINGPERFORMED BY: LabCorewell Health [facility] Hospital6370 [facility] [id number] Vitamin D, 25-Hydroxy 34.0 ng/mL (Normal) Range: 30.0-100.0 Comments: Vitamin D deficiency has been defined by the Wallace ofMedicine and an Endocrine Society practice guideline as alevel of serum 25-OH vitamin D less than 20 ng/mL (1,2).The Endocrine Society went on to further define vitamin Dinsufficiency as a level between 21 and 29 ng/mL (2).1. IOM (Wallace of Medicine). 2010. Dietary reference intakes for calcium and D. [place]: The National Academies Press.2. Eleni MF, Lorne MORTON, Dayron WALTON, et al. Evaluation, treatment, and prevention of vitamin D deficiency: an Endocrine Society clinical practice guideline. JCEM. 2010; 96(7):1911-30. :31 Amylase (98913) Comments: PATIENT WAS FASTINGPERFORMED BY: [facility] Ymbapk7588 [facility] [id number] Amylase, Serum 32 U/L (Normal) Range: 31-124 :31 Lipase (67473) Comments: PATIENT WAS FASTINGPERFORMED BY: LabPharmAbcine Zqppus9425 [facility] [id number] Lipase, Serum 47 U/L (Normal) Range: 0-59 :31 LIPID PANEL (09904) Comments: PATIENT WAS FASTINGPERFORMED BY: LabPharmAbcinerp Hwwhkn6193 [facility] [id number] LDL/HDL Ratio 1.7 {ratio_units} (Normal) Range: 0.0-3.2 [...] 155 mg/dL (Normal) Range: 100-199 :31 TSH (02307) Comments: PATIENT WAS FASTINGPERFORMED BY: [facility] Vtbudb4047 [facility] [id number] TSH 1.140 {uIU/mL} (Normal) Range: 0.450-4.500 :31 METABOLIC PANEL, Comments: PATIENT WAS FASTINGPERFORMED BY: [facility] Emsgtu4027 Shanita MishraAtrium Health Harrisburg [id number] Information: [id number] COMPREHENSIVE (74064) ALT (SGPT) 20 [iU]/L (Normal) Range: 0-32 [...] (Normal) Range: 65-99 :12 HgA1C , Office (14771) HgA1C , Office 6.4 % (Normal) Range: 4.6 - 7.1 :21 HgA1C , Office (71059) HgA1C , Office 6.8 % (Normal) Range: 4.6 - 7.1 :21 Blood Glucose , Office (64805) Blood Glucose , Office 122 (Normal) 16-Ofw-410006:33 CBC W/Diff, Automated Comments: Test performed at:[facility] [address] [place] [address] Absolute Lymph 1.21 {X10_3/ul} (Normal) [...] 4.2-5.4 WBC 6.0 K/mm3 (Normal) Range: 4.4-11.0 99-Ses-466012:33 Comprehensive Metabolic Profil Comments: Test performed at:[facility] [address]ib[address]xerpc[address] [place] [address] GAP 8 (Normal) Range: 5-15 [...] Comments: Please note revised CREATININE reference range hvlcfenoh06/22/2015. BUN 13 mg/dL (Normal) Range: 7-18 GLU 84 mg/dL (Normal) Range: 70-110 32-Uza-785676:33 Lipid Profile Comments: Test performed at:[facility] [address] [place], [place] [id number] ; non-emergent till apt VLDL 24 mg/dL [...] 200-240 mg/dL Borderline >240 mg/dL High Risk 66-Qvl-423475:33 Microalb:Creat Ratio,Random UR Comments: Test performed at:[facility] Eqzyrguwuj[address] [place] [address] MALB:CREAT Test not performed {mg/g_CRE} (Normal) MICROALBUMIN,UR < 5.0 mg/L (Normal) UR CREAT 179.00 mg/dL (Normal) 40-Mnr-516020:33 Thyroid Stim Hormone (TSH) Comments: Test performed at:[facility] Rte[address]ib[address]me[address] [place] [address] TSH 0.84 {uIU/mL} (Normal) Range: 0.358-3.74 38-Zvo-732696:33 Vitamin D,25 Hydroxy Comments: Test performed at:[facility] Gjibrlukao[address] [place] [address] Vitamin D 25-OH 23.5 ng/mL (Normal) Comments: Vitamin D 25(OH) Status Range Deficiency <20 ng/mL (50nmol/L) Insuffciency 20 - 30 ng/mL (50 - 75 nmol/L) Sufficiency 30 - 100 ng/mL (75 - 250 nmol/L) Toxicity >100 ng/mL (>250 nmol/L) 5-Xxr-179367:34 HgA1C , Office (09561) HgA1C , Office 7.0 % (Normal) Range: 4.6 - 7.1 0-Mkx-580417:00 CBC W/Diff, Automated Comments: Test performed at:[facility] Cq[address] [place] [address] Absolute Lymph 2.03 {X10_3/ul} (Normal) Range: [...] 4.2-5.4 WBC 9.1 K/mm3 (Normal) Range: 4.4-11.0 7-Nhs-281073:00 CK-MB Quantitative and Index Comments: 'TROP' Serial specimen #1, #2, #3, or #4: 1'CKMB' Serial Specimen #1, #2 or #3? 1Test performed at:[facility] [address] [place] [address] CPKMB 1.7 ng/mL (Normal) Range: 0.0-5.0 Comments: CK-MB and RI Interpretation MB Relative Index Non-AMI <or= 5 NA Indeterminate > 5 <or= 4 AMI > 5 > 4 CPK TOTAL 137 U/L (Normal) Range: 26-192 2-Cio-898043:00 Myoglobin, Serum Comments: Test performed at:[facility] Ydvsspyzcq7517 [place] [address] Myoglobin, Ser 149 ng/mL (Abnormal) Range: 25-58 Comments: Performed at: [facility] Lab[address] [id number] Director: Jonathan Majano PhD, Phone: [phone] 2-Dak-683850:00 Troponin-I Comments: 'TROP' Serial specimen #1, #2, #3, or #4: 1'CKMB' Serial Specimen #1, #2 or #3? 1Test performed at:[facility] [address] [place], [place] [address] TROPONIN-I < 0.02 ng/mL (Normal) Comments: TROPONIN-I EXPECTED VALUES <0.05 NEGATIVE 0.06 - 0.59 AT RISK OF UT > OR = 0.60 SUGGEST UT 1-Muf-876283:46 Rapid Flu (35007 x 2) Influenza A Ag n (Normal) 86-Uio-245682:30 Culture, Wound Comments: Test performed at:[facility] [address] [place] [address] CUW See Note (Normal) Comments: Gram StainGram [...] $ 1 S(NF) indicates non-formulary drug at [facility]. Approval by Infectious Disease Specialist required before non-formulary dr gerard may be ordered and/or dispensed. * CLSI guidelines does not recommend testing of cephalosporins. This interpretation is deduced from Beta- lactam/penicillin results. 90-Wjl-130088:20 WCGLU 81 mg/dL (Normal) Range: 70-110 49-Klv-092289:20 WCLIPID VLDL 34 mg/dL (Normal) Range: 5-40 [...] CHOL 178 mg/dL (Normal) Comments: <200 mg/dL Welwrpgxm638-880 mg/dL Borderline>240 mg/dL High Risk 9-Ydw-565611:50 MUM < 0.80 AU (Normal) Range: 0.00-0.79 Comments: Negative < 0.80Borderline 0.80 - 1.20Positive > 1.20Note: The presence of IgM specific antibody should beinterpreted in conjunction with the patient's clinicalhistory and exposure risk when an acute infection issuspected.Performed at: [facility] [employer] [address] [id number] Director: Rafita Cruz MD, Phone: [phone] at: [facility] [employer] [id number] Director: Jj Caballero MD, Phone: [phone] 2-Ahf-302215:50 RUBEOG > 300.0 AU/mL (Normal) Comments: Negative <25.0Equivocal 25.0 - 29.9Positive >29.9Presence of antibodies to Rubeola is presumptive evidenceof immunity except when acute infection is suspected. 6-Hha-962652:50 RUBG > 500.0 {IU/mL} (Normal) Comments: Antibody results Interpretation of Immune Status< 5 IU/ml Presumed Non-immune5 - < 10 IU/ml Equivocal> or = 10 IU/ml Presumed Immune :26 MICROALBUMIN: CREATININE RATIO Comments: PATIENT WAS FASTINGPERFORMED BY: En[employer]um[address] [id number] (35667) AND (20844) Microalb/Creat Ratio 3.9 {mg/g_creat} (Normal) Range: 0.0-30.0 Creatinine, Urine 177.5 mg/dL (Normal) Range: 15.0-278.0 Microalbumin, Urine 7.0 ug/mL (Normal) Range: 0.0-17.0 :26 CBC WITH MANUAL DIFF Comments: PATIENT WAS FASTINGPERFORMED BY: LabCoSt. Joseph's [facility] HospitalApmaiq9159 [facility] [id number] Information: [id number] (60118) Immature Grans (Abs) 0.0 {x10E3/uL} (Normal) Range: [...] PANEL, COMPREHENSIVE Comments: PATIENT WAS FASTINGPERFORMED BY: LabCoSt. Joseph's Wayne HospitalEtdlry6847 [facility] [id number] (11598) ALT (SGPT) 22 [iU]/L (Normal) Range: 0-32 [...] (Abnormal) Range: 65-99 01-Nov-20139:26 Vitamin D Hydroxy (89217) Comments: PATIENT WAS FASTINGPERFORMED BY: [facility] [id number] Vitamin D, 25-Hydroxy 32.9 ng/mL (Normal) Range: 30.0-100.0 Comments: Vitamin D deficiency has been defined by the Wallace ofMedicine and an Endocrine Society practice guideline as alevel of serum 25-OH vitamin D less than 20 ng/mL (1,2).The Endocrine Society went on to further define vitamin Dinsufficiency as a level between 21 and 29 ng/mL (2).1. IOM (Wallace of Medicine). 2010. Dietary reference intakes for calcium and D. [place]: The National Academies Press.2. Eleni CRAVEN, Lorne NC, Dayron WALTON, et al. Evaluation, treatment, and prevention of vitamin D deficiency: an Endocrine Society clinical practice guideline. JCEM. 2010; 96(7):1911-30. :26 LIPID PANEL (56408) Comments: PATIENT WAS FASTINGPERFORMED BY: [employer] Ohaczz1732 Tira WirelessYadkin [facility] Hospital [id number] LDL/HDL Ratio 1.6 {ratio_units} (Normal) Range: 0.0-3.2 LDL Cholesterol Calc 74 mg/dL (Normal) Range: 0-99 HDL Cholesterol 46 mg/dL (Normal) Comments: According to ATP-III Guidelines, HDL-C >59 mg/dL is considered anegative risk factor for CHD. VLDL Cholesterol Edgardo 22 mg/dL (Normal) Range: 5-40 Triglycerides 112 mg/dL (Normal) Range: 0-149 Cholesterol, Total 142 mg/dL (Normal) Range: 100-199 :26 TSH (93493) Comments: PATIENT WAS FASTINGPERFORMED BY: [employer] Xhzkzz3308 [facility] WirelessY[facility] [id number] TSH 1.560 {uIU/mL} (Normal) Range: 0.450-4.500 5-Xqa-780513:02 HgA1C , Office (35599) HgA1C , Office 6.6 % (Normal) Range: 4.6 - 7.1 :41 HgA1C , Office (84073) HgA1C , Office 6.4 % (Normal) Range: 4.6 - 7.1 98-Gzb-732484:30 Microscopic Examination Comments: PATIENT WAS FASTINGPERFORMED BY: [employer] Rfvylo1822 [facility] [id number] Bacteria Few (Normal) Mucus Threads Present (Normal) Epithelial Cells (non renal) 0-10 {/hpf} (Normal) Range: 0 - 10 RBC 0-3 {/hpf} (Normal) Range: 0 - 3 WBC 0-5 {/hpf} (Normal) Range: 0 - 5 :30 LIPID PANEL (77959) Comments: PATIENT WAS FASTINGPERFORMED BY: EnventumSt. Joseph's Wayne HospitalSobjfu8086 [facility] [id number] LDL/HDL Ratio 2.3 {ratio_units} (Normal) Range: 0.0-3.2 LDL Cholesterol Calc 103 mg/dL (Abnormal) Range: 0-99 VLDL Cholesterol Edgardo 30 mg/dL (Normal) Range: 5-40 HDL Cholesterol 45 mg/dL (Normal) Comments: According to ATP-III Guidelines, HDL-C >59 mg/dL is considered anegative risk factor for CHD. Cholesterol, Total 178 mg/dL (Normal) Range: 100-199 Triglycerides 148 mg/dL (Normal) Range: 0-149 41-Cyw-008723:30 Vitamin D Hydroxy (68093) Comments: PATIENT WAS FASTINGPERFORMED BY: [employer] Opfnoi6980 [facility] [id number] Vitamin D, 25-Hydroxy 35.6 ng/mL (Normal) Range: 30.0-100.0 Comments: Vitamin D deficiency has been defined by the Wallace ofKnox Community Hospitalcine and an Endocrine Society practice guideline as alevel of serum 25-OH vitamin D less than 20 ng/mL (1,2).The Endocrine Society went on to further define vitamin Dinsufficiency as a level between 21 and 29 ng/mL (2).1. IOM (Wallace of Medicine). 2010. Dietary reference intakes for calcium and D. [place]: The National Academies Press.2. Eleni MF, Lorne MORTON, Dayron WALTON, et al. Evaluation, treatment, and prevention of vitamin D deficiency: an Endocrine Society clinical practice guideline. JCEM. 2010; 96(7):1911-30. 97-Yqu-998261:30 URINALYSIS, W/ MICRO (45459) Comments: PATIENT WAS FASTINGPERFORMED BY: [facility] Urerql5911 [facility] [id number] Microscopic Examination See below: (Normal) Nitrite, Urine Negative (Normal) Bilirubin Negative (Normal) Urobilinogen,Semi-Qn 0.2 mg/dL (Normal) Range: 0.0-1.9 Occult Blood Negative (Normal) Ketones Negative (Normal) Glucose Negative (Normal) Protein Negative (Normal) WBC Esterase 1+ (Abnormal) Appearance Clear (Normal) Urine-Color Yellow (Normal) pH 5.5 (Normal) Range: 5.0-7.5 Specific Caldwell 1.017 (Normal) Range: 1.005-1.030 :30 CBC WITH MANUAL DIFF Comments: PATIENT WAS FASTINGPERFORMED BY: LabCorewell Health [facility] Hospital6370 [facility] [id number] Information: [id number] (05037) Immature Grans (Abs) 0.0 {x10E3/uL} (Normal) Range: [...] 3.77-5.28 WBC 6.2 {x10E3/uL} (Normal) Range: 3.4-10.8 67-Clr-242921:30 METABOLIC PANEL, COMPREHENSIVE Comments: PATIENT WAS FASTINGPERFORMED BY: CB [facility] Zlqoph7130 Shanita MishraFormerly [facility] Healthandres [place] [id number] (95218) ALT (SGPT) 23 [iU]/L (Normal) Range: 0-32 [...] (Abnormal) Range: 65-99 :35 HgA1C , Office (70678) HgA1C , Office 6.6 % (Normal) Range: 4.6 - 7.1 86-Rmx-285533:41 Thin prep Pap (35702) Comments: Source.............VaginalNo. of containers..01 CYTYC Thin Prep VialPATIENT NOT FASTINGPERFORMED BY: [facility] [address] [facility] DAWNA [id number] Information: [id number] Pathologist provided ICD9: SPRCS (Normal) Comments: 627.3The [...] of hysterectomy.V72.31 ; Routine gynecological examinationGris Moreau Solution Lead (ASCP) :36 VITAMIN B-12 (CYANOCOBALAMIN) Comments: PATIENT WAS FASTINGPERFORMED BY: [employer] [place] [id number] (79896) Vitamin B12 628 pg/mL (Normal) Range: 211-946 :36 LIPID PANEL (85147) Comments: PATIENT WAS FASTINGPERFORMED BY: [employer] [place] [id number] LDL/HDL Ratio 2.2 {ratio_units} (Normal) Range: 0.0-3.2 LDL Cholesterol Calc 87 mg/dL (Normal) Range: 0-99 VLDL Cholesterol Edgardo 27 mg/dL (Normal) Range: 5-40 HDL Cholesterol 39 mg/dL (Abnormal) Comments: According to ATP-III Guidelines, HDL-C >59 mg/dL is considered anegative risk factor for CHD. Cholesterol, Total 153 mg/dL (Normal) Range: 100-199 Triglycerides 137 mg/dL (Normal) Range: 0-149 :36 Vitamin D Hydroxy (30058) Comments: PATIENT WAS FASTINGPERFORMED BY: [employer] [place] [id number] Vitamin D, 25-Hydroxy 31.1 ng/mL (Normal) Range: 30.0-100.0 Comments: Vitamin D deficiency has been defined by the Wallace ofMedicine and an Endocrine Society practice guideline as alevel of serum 25-OH vitamin D less than 20 ng/mL (1,2).The Endocrine Society went on to further define vitamin Dinsufficiency as a level between 21 and 29 ng/mL (2).1. IOM (Wallace of Medicine). 2010. Dietary reference intakes for calcium and D. [place]: The National Academies Press.2. Eleni MF, Lorne MORTON, Dayron WALTON, et al. Evaluation, treatment, and prevention of vitamin D deficiency: an Endocrine Society clinical practice guideline. JCEM. 2010; 96(7):1911-30. :36 TSH (15907) Comments: PATIENT WAS FASTINGPERFORMED BY: [employer] Kcexkk7396 T[employer] Wirelessblin [place] [id number] TSH 1.510 {uIU/mL} (Normal) Range: 0.450-4.500 :36 MICROALBUMIN: CREATININE RATIO Comments: PATIENT WAS FASTINGPERFORMED BY: [facility] Kdfulw8058 [address] [place] [id number] ([id number]) AND (25608) Creatinine, Urine 212.6 mg/dL (Normal) Range: 15.0-278.0 Microalb/Creat Ratio 2.1 {mg/g_creat} (Normal) Range: 0.0-30.0 Microalbumin, Urine 4.5 ug/mL (Normal) Range: 0.0-17.0 :36 METABOLIC PANEL, Comments: PATIENT WAS FASTINGPERFORMED BY: [facility] Rlrzmw75[address] [place] [id number] Information: [id number] COMPREHENSIVE (04198) ALT (SGPT) 23 [iU]/L (Normal) Range: 0-32 [...] Glucose, Serum 160 mg/dL (Abnormal) Range: 65-99 27-Bos-16920:34 BILAT SCRN DIGITAL & CAD Radiology Report [...] Mckenzie M.D.April 12, 2012 at 10:58:16 AM [id number] Signed GP/GP If you are the referring physician and would like to consult w [facility] theradiologist who provided this interpretation, please contact Sudha Pritchett at [phone]. If this radiologist is unavailable, youwill be directed to another radiologist to assist. If you are a patient with a question regarding this report, pleasecontactyour referring physician directly. Professional Interpretation Provided By: [employer], Phone , These documents contain legally protected [...] 04/12/12 1103 Sign by: Leobardo Mckenzie MD 61-Rst-66195:34 DEXA BONE DENSITY STUDY (HP) Radiology Report [...] Mckenzie M.D.April 12 2 at 12:31:08 PM [id number] Signed GP/GP If you are the referring physician and would like to consult with theradiologist who provided this interpretation, please contact Rashard thompson M.D. at [phone]. If this radiologist is unavailable, youwill be directed to another radiologist to assist. If you are a patient with a question regarding this report, pleasecontactyour refer ring physician directly. Professional Interpretation Provided By: [employer], Phone , These documents contain legally protected [...] 04/12/12 1235 Sign by: Leobardo Mckenzie MD 9-Gzv-214946:25 HPV automatic Comments: Source.............Cervical;EndocervicalNo. of containers..01 CYTYC Thin Prep VialPATIENT NOT FASTINGPERFORMED BY: WB [facility] [address] [place] [id number] BY: =G L (91884) [facility] Jmuujfbglh967 [facility] [place] [id number] Information: [id number] HPV, high-risk Negative Comments: This high-risk HPV [...] history of hysterectomy.V72.31 ; Routine gynecological examinationJennifer [place], Solution Lead (ASCP) :37 Hemoglobin Glyclated (HGB A1C) Comments: PATIENT WAS FASTINGPERFORMED BY: [facility]6[address] [facility] [id number] (14793) Hemoglobin A1c 7.1 % (Abnormal) Range: 4.8-5.6 Comments: . Increased risk for diabetes: 5.7 - 6.4 Diabetes: >6.4 Glycemic control for adults with diabetes: <7.0 :37 TSH (90132) Comments: PATIENT WAS FASTINGPERFORMED BY: LabCo Bedhjd5098 [facility] [id number] TSH 1.790 {uIU/mL} (Normal) Range: 0.450-4.500 :37 CBC WITH MANUAL DIFF Comments: PATIENT WAS FASTINGPERFORMED BY: [facility] [facility] [id number] Information: [id number] (19560) Immature Grans (Abs) 0.0 {x10E3/uL} (Normal) Range: [...] CREATININE RATIO Comments: PATIENT WAS FASTINGPERFORMED BY: [facility] [id number] (26892) AND (01503) Microalb/Creat Ratio 0.8 {mg/g_creat} (Normal) Range: 0.0-30.0 Microalbumin, Urine 1.4 ug/mL (Normal) Range: 0.0-17.0 Creatinine, Urine 183.1 mg/dL (Normal) Range: 15.0-278.0 :37 LIPID PANEL (03957) Comments: PATIENT WAS FASTINGPERFORMED BY: [employer]It [facility] [id number] LDL/HDL Ratio 1.4 {ratio_units} (Normal) Range: 0.0-3.2 [...] PANEL, COMPREHENSIVE Comments: PATIENT WAS FASTINGPERFORMED BY: [employer]nap[employer]io Diehl CustExAtrium Health [facility]burg [id number] (53253) ALT (SGPT) 26 [iU]/L (Normal) Range: 0-40 [...] Glucose, Serum 145 mg/dL (Abnormal) Range: 65-99 88-Ama-46430:37 Vitamin D Hydroxy (59479) Comments: PATIENT WAS FASTINGPERFORMED BY: [facility] [facility] [id number] Vitamin D, 25-Hydroxy 42.1 ng/mL (Normal) Range: 30.0-100.0 Comments: Vitamin D deficiency has been defined by the Wallace ofMedicine and an Endocrine Society practice guideline as alevel of serum 25-OH vitamin D less than 20 ng/mL (1,2).The Endocrine Society went on to further define vitamin Dinsufficiency as a level between 21 and 29 ng/mL (2).1. IOM (Wallace of Medicine). 2010. Dietary reference intakes for calcium and D. [place]: The National Academies Press.2. Eleni MF, Lorne NC, Dayron WALTON, et al. Evaluation, treatment, and prevention of vitamin D deficiency: an Endocrine Society clinical practice guideline. JCEM. 2010; 96(7):1911-30. 71-Xrs-69030:37 VITAMIN B-12 (CYANOCOBALAMIN) Comments: PATIENT WAS FASTINGPERFORMED BY: [facility] [facility] [id number] (42705) Vitamin B12 1841 pg/mL (Abnormal) Range: 211-946 33-Vhj-508700:56 CHEST WITH CONTRAST Radiology Report See Note [...] Signed:Marva HunterFebruary 11, 2012 at 3:53:06 PM [id number] Signed MV/MV If you are the referring [...] on 02/11/121611 Sign by: JACKIE SIERRA MD 94-Yyb-615290:22 CRE GFRAA 95 mL/min (Normal) GFR 78 mL/min (Normal) CREAT 0.8 mg/dL (Normal) Range: 0.6-1.0 :42 MICROALBUMIN: CREATININE RATIO Comments: PATIENT WAS FASTINGPERFORMED BY: [employer] Oegqsb2040 [place] WirelessYadkin [facility] [id number] ([id number]) AND (79203) Creatinine, Urine 87.6 mg/dL (Normal) Range: 15.0-278.0 Microalb/Creat Ratio 1.1 {mg/g_creat} (Normal) Range: 0.0-30.0 Microalbumin, Urine 1.0 ug/mL (Normal) Range: 0.0-17.0 :42 VITAMIN B-12 (CYANOCOBALAMIN) Comments: PATIENT WAS FASTINGPERFORMED BY: [employer]70 Tira WirelessYad[facility] [id number] (61189) Vitamin B12 1740 pg/mL (Abnormal) Range: 211-946 :42 CBC WITH MANUAL DIFF Comments: PATIENT WAS FASTINGPERFORMED BY: [employer]70 [facility] WirelessYad[facility] Hospital [id number] Information: [id number] (46597) Immature Grans (Abs) 0.0 {x10E3/uL} (Normal) Range: [...] 3.77-5.28 WBC 5.5 {x10E3/uL} (Normal) Range: 4.0-10.5 94-Vry-37561:42 Vitamin D Hydroxy (94167) Comments: PATIENT WAS FASTINGPERFORMED BY: LabCoSt. [facility]'s [facility] HospitalConclf3554 [facility] [id number] Vitamin D, 25-Hydroxy 32.2 ng/mL (Normal) Range: 30.0-100.0 Comments: Vitamin D deficiency has been defined by the Wallace ofMedicine and an Endocrine Society practice guideline as alevel of serum 25-OH vitamin D less than 20 ng/mL (1,2).The Endocrine Society went on to further define vitamin Dinsufficiency as a level between 21 and 29 ng/mL (2).1. IOM (Wallace of Medicine). 2010. Dietary reference intakes for calcium and D. [place]: The National AcademVanceInfo Technologies Press.2. Eleni MF, Lorne MORTON, Dayron WALTON, et al. Evaluation, treatment, and prevention of vitamin D deficiency: an Endocrine Society clinical practice guideline. JCEM. 2010; 96(7):1911-30. :42 LIPID PANEL (84670) Comments: PATIENT WAS FASTINGPERFORMED BY: [employer]70 [facility] [id number] LDL/HDL Ratio 2.2 {ratio_units} (Normal) Range: 0.0-3.2 [...] PANEL, COMPREHENSIVE Comments: PATIENT WAS FASTINGPERFORMED BY: [employer]6[address] [facility] [id number] (68120) ALT (SGPT) 20 [iU]/L (Normal) Range: 0-32 [...] Glucose, Serum 148 mg/dL (Abnormal) Range: 65-99 85-Glu-65517:42 TSH (77533) Comments: PATIENT WAS FASTINGPERFORMED BY: [employer] [facility] [id number] TSH 2.140 {uIU/mL} (Normal) Range: 0.450-4.500 7-Jex-605088:41 Urinalysis, Office (09644) UA - BILIRUBIN Negative (Normal) UA - BLOOD Negative (Normal) UA - GLUCOSE Negative (Normal) UA - KETONES Negative mg/dL (Normal) UA - LEUKOCYTE ESTERASE Negative (Normal) UA - NITRITE Negative (Normal) UA - PH 8.5 (Normal) UA - PROTEIN 30 mg/dL (Normal) UA - SPECIFIC GRAVITY 1.020 (Normal) URINE UROBILINGN SUNNY TIMED Normal mg/dL (Normal) 82-Frz-578553:08 CULTURE, SPUTUM (97730) Comments: PATIENT NOT FASTINGPERFORMED BY: [facility] LabPharmAbcineDzilth-Na-O-Dith-Hle Health CenterDnetvy6397 [facility] [id number] Information: SRC:SPT ADD [id number] Result 1 RRF (Normal) Comments: Routine respiratory [...] {uIU/mL} (Normal) Range: 0.358-3.74 :24 VIT D,25 91466 37.4 ng/mL (Normal) Range: 30.0-100.0 Comments: Vitamin D deficiency has been defined by the Wallace ofKnox Community Hospitalcine and an Endocrine Society practice guideline as alevel of serum 25-OH vitamin D less than 20 ng/mL (1,2).The Endocrine Society went on to further define vitamin Dinsufficiency as a level between 21 and 29 ng/mL (2).1. IOM (Wallace of Medicine). 2011. Dietary reference intakes for calcium and D. [place]: The National Academies Press.2. Eleni CRAVEN, Lorne MORTON, Dayron WALTON, et al. Evaluation, treatment, and prevention of vitamin D deficiency: an Endocrine Society clinical practice guideline. JCEM. 2010; 96(7): 1911-30.Performed at: [address], [place], [place] [id number] Director: Leigh Palomo MD, Phone: [phone] 5-Dtk-874050:43 Blood Glucose , Office (94402) Blood Glucose , Office 141 (Normal) 22-Obm-02576:08 BILAT SCRN DIGITAL & CAD Radiology Report [...] 04/07/11 1032 Sign by: Leobardo Mckenzie MD 02-Ffz-086890:03 Rapid Strep Test, Office (73893) Comments: neg Rapid Strep Test, Office Negative (Normal) 85-Aam-663319:48 MEHREEN CULTURE-OTHER (01213) Comments: PATIENT NOT FASTINGPERFORMED BY: [facility] Tchcci9076 [facility] [id number] Information: SRC:THRT [id number] Result 1 RRF (Normal) Comments: Routine respiratory marilin Upper Respiratory Culture Final report (Normal) 49-Ign-788498:37 Rapid Strep Test, Office (75206) Rapid Strep Test, Office Negative (Normal) 16-Bpz-651337:05 Rapid Flu (59384 x 2) Influenza A Ag negative (Normal) :18 MICROALBUMIN: CREATININE RATIO Comments: PATIENT WAS FASTINGPERFORMED BY: EnventumSt. Joseph's Wayne HospitalFsbhxw8282 [facility] [id number] (62786) AND (08376) Microalb/Creat Ratio 2.4 {mg/g_creat} (Normal) Range: 0.0-30.0 Microalbumin, Urine 4.6 ug/mL (Normal) Range: 0.0-17.0 Creatinine, Urine 189.1 mg/dL (Normal) Range: 15.0-278.0 :18 CBC WITH MANUAL DIFF Comments: PATIENT WAS FASTINGPERFORMED BY: EnventumSt. Joseph's Wayne HospitalPvcflf3647 [facility] [id number] Information: [id number] (52205) Immature Grans (Abs) 0.0 {x10E3/uL} (Normal) Range: [...] 3.80-5.10 WBC 6.4 {x10E3/uL} (Normal) Range: 4.0-10.5 48-Vqf-09324:18 METABOLIC PANEL, COMPREHENSIVE Comments: PATIENT WAS FASTINGPERFORMED BY: LabCore[facility]6[address] [facility] [id number] (86242) ALT (SGPT) 21 [iU]/L (Normal) Range: 0-40 [...] (Abnormal) Range: 65-99 :18 Vitamin D Hydroxy (14174) Comments: PATIENT WAS FASTINGPERFORMED BY: [employer]70 PrepmaticAtrium Health [facility]burg [id number] Vitamin D, 25-Hydroxy 38.2 ng/mL (Normal) Range: 32.0-100.0 Comments: Recent studies consider the lower limit of 32.0 ng/mL to be athreshold for optimal health.Tom SOLIS. J Nutr. 2004;135(2):317-22. :18 LIPID PANEL (80162) Comments: PATIENT WAS FASTINGPERFORMED BY: [employer]6370 [address] WirelessYadkin [facility] Hospital [id number] LDL Cholesterol Calc 69 mg/dL (Normal) Range: 0-99 LDL/HDL Ratio 1.7 {ratio_units} (Normal) Range: 0.0-3.2 HDL Cholesterol 40 mg/dL (Normal) Comments: According to ATP-III Guidelines, HDL-C >59 mg/dL is considered anegative risk factor for CHD. VLDL Cholesterol Edgardo 37 mg/dL (Normal) Range: 5-40 Cholesterol, Total 146 mg/dL (Normal) Range: 100-199 Triglycerides 184 mg/dL (Abnormal) Range: 0-149 :18 TSH (08462) Comments: PATIENT WAS FASTINGPERFORMED BY: [employer] [facility] [id number] TSH 1.380 {uIU/mL} (Normal) Range: 0.450-4.500 :58 HgA1C , Office (71330) HgA1C , Office 6.4 % (Normal) Range: 4.6 - 7.1 :58 Blood Glucose , Office (40915) Blood Glucose , Office 146 (Normal) 32-Uci-046268:43 L/S SPINE,MIN 4 VIEWS (MT) Radiology Report See Note (Normal) Comments: Exam Number: [id number] CLINICAL:The patient is a 59-year-old woman with [...] ESTElectronically Signed PM/PM As part of our Accounting Machine Mechanic Program, we request that surgical orpathologic correlation, or any additional supportive or discordantmedical history, laboratory or imaging studies be forwarded [facility], attention: Peer ReviewCoordinator. , , [address], [address] [place] [address]. Reported By: CHASTITY RETANA M.D. 42-Qtj-617854:28 Urinalysis, Office (74599) UA - BILIRUBIN Negative (Normal) UA - BLOOD Negative (Normal) UA - GLUCOSE Negative (Normal) UA - KETONES Negative mg/dL (Normal) UA - LEUKOCYTE ESTERASE Negative (Normal) UA - NITRITE Negative (Normal) UA - PH 6.0 (Normal) UA - PROTEIN Negative mg/dL (Normal) UA - SPECIFIC GRAVITY 1.025 (Normal) URINE UROBILINGN SUNNY TIMED 2 mg/dL (Normal) 33-Rcr-685956:46 Thin prep Pap (26377) Comments: Source.............VaginalLMP / Prev Treat...HystNo. of containers..01 CYTYC Thin Prep VialPERFORMED BY: LabCo Vodeatinet082 [facility] DAWNA [id number] Information: [id number] Note: PAPSMR (Normal) Comments: The Pap smear [...] of hysterectomy.V72.31 ; Routine gynecological exami [facility] Luis, Solution Lead (ASCP) 68-Rgo-413252:06 Vitamin D Hydroxy (34672) Comments: PATIENT WAS FASTINGPERFORMED BY: [employer] Ivzsct3822 [facility] [id number] Vitamin D, 25-Hydroxy 26.5 ng/mL (Abnormal) Range: 32.0-100.0 Comments: Recent studies consider the lower limit of 32.0 ng/mL to be athreshold for optimal health.Tom SOLIS. J Nutr. 2004;135(2):317-22. 42-Xec-917219:06 LIPID PANEL (59929) Comments: PATIENT WAS FASTINGPERFORMED BY: LabPharmAbcine Aszvpa0987 [facility] CenterGeneriMedYadkin Valley [facility] [id number] LDL Cholesterol Calc 57 mg/dL (Normal) Range: 0-99 LDL/HDL Ratio 1.4 {ratio_units} (Normal) Range: 0.0-3.2 VLDL Cholesterol Edgardo 32 mg/dL (Normal) Range: 5-40 HDL Cholesterol 41 mg/dL (Normal) Comments: According to ATP-III Guidelines, HDL-C >59 mg/dL is considered anegative risk factor for CHD. Triglycerides 162 mg/dL (Abnormal) Range: 0-149 Cholesterol, Total 130 mg/dL (Normal) Range: 100-199 95-Une-532698:06 METABOLIC PANEL, Comments: PATIENT WAS FASTINGPERFORMED BY: TARAS [facility] Xotwss5285 [facility] [id number] Information: ADD [id number] AND DRAW FEE 99 [id number] COMPREHENSIVE (39890) ALT (SGPT) 23 [iU]/L (Normal) Range: 0-40 [...] (Abnormal) Range: 65-99 :20 HgA1C , Office (14939) HgA1C , Office 6.8 % (Normal) Range: 4.6 - 7.1 :20 Blood Glucose , Office (36470) Blood Glucose , Office 129 (Normal) 24-Lwr-456590:38 Rapid Strep Test, Office (68765) Rapid Strep Test, Office Negative (Normal) :09 HgA1C , Office (26766) HgA1C , Office 6.9 % (Normal) Range: 4.6 - 7.1 :09 Blood Glucose , Office (18154) Blood Glucose , Office 127 (Normal) :14 METABOLIC PANEL, COMPREHENSIVE Comments: PATIENT WAS FASTINGPERFORMED BY: LabCoSt. Joseph's [facility] HospitalDzybmb0918 [facility] [id number] (26845) Alkaline Phosphatase, S 60 [iU]/L (Normal) Range: [...] Glucose, Serum 141 mg/dL (Abnormal) Range: 65-99 90-Zgw-37817:14 CBC WITH MANUAL DIFF Comments: PATIENT WAS FASTINGPERFORMED BY: LabCorewell Health [facility] Hospital6370 [facility] [id number] Information: [id number] (81809) Baso (Absolute) 0.0 {x10E3/uL} (Normal) Range: 0.0-0.2 [...] URINE QUANT Comments: PATIENT WAS FASTINGPERFORMED BY: EnventumSt. Joseph's Wayne HospitalRlmjyr1207 [facility] [id number] (55007) Microalb/Creat Ratio <.8 {mg/g_creat} (Normal) Range: 0.0-30.0 Microalbumin, Urine <1.0 ug/mL (Normal) Range: 0.0-17.0 Creatinine, Urine 124.3 mg/dL (Normal) Range: 15.0-278.0 :14 TSH (42920) Comments: PATIENT WAS FASTINGPERFORMED BY: [employer] Eyrkcm3751 [facility] [id number] TSH 2.150 {uIU/mL} (Normal) Range: 0.450-4.500 Comments: Effective July 22, 2009, TSH reference interval for11 - 19 years will be changing to: 0.450 - 4.500 uIU/mLReference interval for all other ages will NOT be affected. :14 Vitamin D Hydroxy (23816) Comments: PATIENT WAS FASTINGPERFORMED BY: EnventumSt. Joseph's Wayne HospitalYeftax8739 [facility] [id number] Vitamin D, 25-Hydroxy 26.6 ng/mL (Abnormal) Range: 32.0-100.0 Comments: Recent studies consider the lower limit of 32.0 ng/mL to be athreshold for optimal health.Tom SOLIS. J Nutr. 2004;135(2):317-22. :14 LIPID PANEL (71046) Comments: PATIENT WAS FASTINGPERFORMED BY: EnventumSt. Joseph's Wayne HospitalEmyxyz1309 [facility] [id number] HDL Cholesterol 42 mg/dL (Normal) Comments: According to ATP-III Guidelines, HDL-C >59 mg/dL is considered anegative risk factor for CHD. LDL Cholesterol Calc 100 mg/dL (Abnormal) Range: 0-99 LDL/HDL Ratio 2.4 {ratio_units} (Normal) Range: 0.0-3.2 Triglycerides 172 mg/dL (Abnormal) Range: 0-149 VLDL Cholesterol Edgardo 34 mg/dL (Normal) Range: 5-40 Cholesterol, Total 176 mg/dL (Normal) Range: 100-199 :07 HgA1C , Office (34818) HgA1C , Office 6.1 % (Normal) Range: 4.6 - 7.1 :07 Blood Glucose , Office (69158) Blood Glucose , Office 232 (Normal) 76-Szt-00320:25 Lower Respiratory Culture Comments: Clinical Information: SRC:SP PERFORMED BY: [employer] Qzukif8643 [facility] [id number] Lower Respiratory Culture Final report (Normal) Result 1 RRF (Normal) Comments: Routine respiratory marilin 48-Dcm-454507:00 Influenza A, H1N1, RT PCR Comments: Clinical Information: SRC:NL PERFORMED BY: Voxylin6370 [facility] [id number] Subtype Novel H1N1 by Negative (Normal) PCR Type Influenza A by Negative (Normal) PCR Viral Final report Comments: PERFORMED BY: Voxy[address] [id number] Culture,Rapid,Influen (Normal) Comments: Negative:No Influenza A or B detected. 92-Dls-415271:29 CHEST, PA AND LATERAL (MT) Radiology Report See Note (Normal) Comments: Exam Number: [id number] CLINICAL:58-year-old woman with cough and shortness of [...] cardiopulmonary process. Reported By: ROSEMARIE ROBBINS M.D. 18-Cpo-890771:45 Rapid Strep Test, Office (76454) Comments: done Rapid Strep Test, Office Negative (Normal) 58-Ilg-930905:32 Rapid Flu (29467 x 2) Comments: done INFLUENZA IMMUNOASSY negative (Normal) DIRECT OPTICAL OBSERV 04-Apr-20090:00 FLU A+B DIRECT See Note (Normal) Comments: Negative test results should be confirmed by culture. Order Rapid Viral Culture for Influenzae A+B (029344) if clinically indicated. INFLUENZA ANTIGEN,DIRECT Presumptive NEGATIVE for Influenza A/B Antigen (See Note) 03-Yrp-069225:04 METABOLIC PANEL, COMPREHENSIVE Comments: PATIENT WAS FASTINGPERFORMED BY: LabCoSt. Joseph's Wayne HospitalSnwvzb6342 [facility] [id number] (31585) A/G Ratio 1.6 (Normal) Range: 1.1-2.5 Albumin, [...] Sodium, Serum 141 mmol/L (Normal) Range: 135-145 85-Cho-681673:04 MICROALBUMIN: CREATININE RATIO Comments: PATIENT WAS FASTINGPERFORMED BY: Datasnap.[employer] DiehlInteractive Mobile AdvertisingAtrium Health Harrisburg [id number] (69667) AND (03834) Creatinine, Urine 124.0 mg/dL (Normal) Range: 15.0-278.0 Microalb/Creat Ratio 1.5 {ug/mg_creat} (Normal) Range: 0.0-30.0 Microalbumin, Urine 1.9 ug/mL (Normal) Range: 0.0-17.0 :04 LIPID PANEL (26424) Comments: PATIENT WAS FASTINGPERFORMED BY: Datasnap.io [facility] [id number] Cholesterol, Total 155 mg/dL (Normal) Range: 100-199 HDL Cholesterol 44 mg/dL (Normal) Comments: According to ATP-III Guidelines, HDL-C >59 mg/dL is considered anegative risk factor for CHD. LDL Cholesterol Calc 89 mg/dL (Normal) Range: 0-99 LDL/HDL Ratio 2.0 {ratio_units} (Normal) Range: 0.0-3.2 Triglycerides 109 mg/dL (Normal) Range: 0-149 VLDL Cholesterol Edgardo 22 mg/dL (Normal) Range: 5-40 :04 Vitamin D Hydroxy (80973) Comments: PATIENT WAS FASTINGPERFORMED BY: [employer] Fsrpzy4025 [facility] [id number] Vitamin D, 25-Hydroxy 24.9 ng/mL (Abnormal) Range: 32.0-100.0 Comments: Recent studies consider the lower limit of 32.0 ng/mL to be athreshold for optimal health.Tom SOLIS. J Nutr. 2004;135(2):317-22. :04 C-REACTIVE PROTEIN (62511) Comments: PATIENT WAS FASTINGPERFORMED BY: TARAS Context app6370 [facility] [id number] C-Reactive Protein, Quant 4.4 mg/L (Normal) Range: 0.0-4.9 :04 CBC WITH MANUAL DIFF (22327) Comments: PATIENT WAS FASTINGClinical Information: ADD DRAW FEE 060228 ADD J 97310 PERFORMED BY: [employer] Wkdfzh3844 [facility] [id number] Baso (Absolute) 0.1 {x10E3/uL} (Normal) Range: 0.0-0.2 [...] 11.7-15.0 WBC 5.0 {x10E3/uL} (Normal) Range: 4.0-10.5 97-Yzf-678331:04 TSH (63346) Comments: PATIENT WAS FASTINGPERFORMED BY: Dezide70 [facility] [id number] TSH 1.151 {uIU/mL} (Normal) Range: 0.450-4.500 66-Xer-963837:00 HgA1C , Office (36879) HgA1C , Office 6.2 % (Normal) Range: 4.6 - 7.1 91-Mif-487214:00 Blood Glucose , Office (12506) Blood Glucose , Office 132 (Normal) 40-Ebo-860003:39 ABDOMEN WITH IV CONTRAST Radiology Report See Note (Normal) Comments: Exam Number: [id number] CT ABDOMEN WITH CONTRAST CLINICAL STATEMENTRight upper [...] anincidental adenoma. Reported By: EDILIA WHEELER M.D. 86-Ssj-819384:38 CHEST WITH CONTRAST Radiology Report See Note (Normal) Comments: Exam Number: [id number] CT OF THE CHEST WITH CONTRAST. STATEMENTCough, [...] Comments: LIVER FUNCTION: PLEASE CALL DR CHEN, SILL WORKER FOR DR FUENTES 46 Range: 25-115 71-Hml-559933: C-REACTIVE PROT 13.74 mg/L (Abnormal) Comments: LIVER FUNCTION: PLEASE CALL DR CHEN SILL WORKER FOR DR FUENTES 46 Range: 0.0-6.0 Comments: Test performed using the Dimension C-Reactive ProteinExtended Range assay method. This assay meets the AHA/CDC 2003 recommendations fordetermining patients at high risk for cardiovasculardisease. Reference: High risk CRP >3.0 mg/L 23-Uho-851203:46 CBCD,SMEAR DIFF BAND 1 % (Normal) Range: [...] 47-70 WBC 5.6 K/mm3 (Normal) Range: 4.4-11.0 95-Tdx-033823:46 COMP METABOLIC Comments: LIVER FUNCTION: PLEASE CALL DR CHEN, SILL WORKER FOR DR CHRISTINA. A/G 1.2 {RATIO} (Normal) [...] 170RAD ARGUELLES.REPORT READ BACK BY SAME . 09-Axf-596636:46 ESR SED RATE 29 mm/h (Normal) Range: 0-30 :46 LIPASE 239 U/L (Normal) Comments: LIVER FUNCTION: PLEASE CALL DR CHEN, SILL WORKER FOR DR CHRISTINA. Range: 114-286 11-Cjv-047516:12 HgA1C , Office (81290) HgA1C , Office 6.1 % (Normal) Range: 4.6 - 7.1 37-Hue-856621:12 Blood Glucose , Office (93056) Blood Glucose , Office 116 (Normal) 62-Yem-517672:48 Urine Culture,Comprehensive Comments: Clinical Information: SRC:UR PERFORMED BY: EnventumSt. Joseph's Wayne HospitalZlhtmx9453 [facility] [id number] Result 1 MUG (Normal) Comments: Mixed urogenital ibmpo813 Colonies/mL Urine Culture,Comprehensive Final report (Normal) 91-Eyb-301102:31 L/S SPINE,MIN 4 VIEWS (MT) Radiology Report See Note (Normal) Comments: Exam Number: [id number] LUMBAR SPINE, 5 VIEWS CLINICAL STATEMENTFollow up bone density study, question compression of L5. COMPARISONBone Dexatometry May 03, 2008. 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 Vertebral body height andalignment appears maintained. Multilevel mild degenerative discchanges are present throughout the lumbar spine with end plateosteophyte formation present. There is mini mal concavity of the L4rowhqiyn end plate likely secondary to degenerative change [...] secondary to position orspasm. Reported By: EDILIA WHEEELR M.D. 16-Txs-18965:59 METABOLIC PANEL, COMPREHENSIVE Comments: PATIENT WAS FASTINGPERFORMED BY: Chinac.comCorewell Health [facility] Hospital6370 [facility] [id number] (84678) A/G Ratio 1.4 (Normal) Range: 1.1-2.5 Albumin, [...] Total 3.0 g/dL (Normal) Range: 1.5-4.5 If -Samoan >59 mL/min/1.73 Comments: Note: Persistent reduction for [...] Glucose, Serum 136 mg/dL (Abnormal) Range: 65-99 12-Jce-17709:59 CBC WITH MANUAL DIFF (70226) Comments: PATIENT WAS FASTINGClinical Information: ADD DRAW FEE 189814 ADD J [id number] PERFORMED BY: Lab[address] [id number] Baso (Absolute) 0.0 {x10E3/uL} (Normal) Range: 0.0-0.2 [...] FUNCTION PANEL Comments: PATIENT WAS FASTINGPERFORMED BY: [facility]umSt[facility] HospitalUxfavg4875 [facility] [id number] (01543) Bilirubin, Direct 0.09 mg/dL (Normal) Range: 0.00-0.40 :59 LIPID PANEL (36335) Comments: PATIENT WAS FASTINGPERFORMED BY: [facility]ventumSt. [facility] HospitalYsdbsx9838 [facility] [id number] Cholesterol, Total 156 mg/dL (Normal) Range: 100-199 HDL Cholesterol 43 mg/dL (Normal) Comments: According to ATP-III Guidelines, HDL-C >59 mg/dL is considered anegative risk factor for CHD. LDL Cholesterol Calc 77 mg/dL (Normal) Range: 0-99 LDL/HDL Ratio 1.8 {ratio_units} (Normal) Range: 0.0-3.2 Triglycerides 180 mg/dL (Abnormal) Range: 0-149 VLDL Cholesterol Edgardo 36 mg/dL (Normal) Range: 5-40 50-Kmb-363099:27 Urinalysis, Office (24756) UA - BILIRUBIN Negative (Normal) UA - [...] Report See Note (Normal) Comments: Exam Number: [id number] BONE DENSITOMETRY HISTORYOsteopenia. TECHNIQUE Bone densitometry of [...] Report See Note (Normal) Comments: Exam Number: [id number] ULTRASOUND OF ABDOMINAL AORTA HISTORYFamily history of [...] in size. Reported By: CHASTITY RETANA M.D. 33-Yro-164378:06 URINE MEHREEN CULTURE-SUNNY COL Comments: PATIENT NOT FASTINGClinical Information: SRC:UR ADD [id number] PERFORMED BY: [employer] [facility]hl [facility]ustExAt[facility] [id number] COUNT ([id number]) Result 1 Proteus mirabilis Comments: 2,000 Colonies/mL [...] STrimethoprim/Sulfa S Urine Final report (Normal) Culture,Comprehensive 15-Baq-59706:19 HEPATIC FUNCTION PANEL Comments: PATIENT WAS FASTINGClinical Information: ADD DRAW FEE [id number] ADD J 33635 PERFORMED BY: T[facility]MR[employer] CustExAt[facility] [id number] (00542) Albumin, Serum 4.0 g/dL (Normal) Range: 3.5-5.5 Alkaline Phosphatase, S 91 [iU]/L (Normal) Range: 25-150 ALT (SGPT) 18 [iU]/L (Normal) Range: 0-40 AST (SGOT) 21 [iU]/L (Normal) Range: 0-40 Bilirubin, Direct 0.11 mg/dL (Normal) Range: 0.00-0.40 Bilirubin, Total 0.4 mg/dL (Normal) Range: 0.1-1.2 Protein, Total, Serum 6.8 g/dL (Normal) Range: 6.0-8.5 :19 LIPID PANEL (55606) Comments: PATIENT WAS FASTINGPERFORMED BY: LabCoSt. [facility] HospitalMtfwji5149 [facility] [id number] Cholesterol, Total 159 mg/dL (Normal) Range: 100-199 HDL Cholesterol 41 mg/dL (Normal) Range: 40-59 Comments: EFFECTIVE APRIL 30, 2008 the reference interval for HDL-C will be changing to: >39 mg/dL LDL Cholesterol Calc 80 mg/dL (Normal) Range: 0-99 LDL/HDL Ratio 2.0 {ratio_units} (Normal) Range: 0.0-3.2 Triglycerides 192 mg/dL (Abnormal) Range: 0-149 VLDL Cholesterol Edgardo 38 mg/dL (Normal) Range: 5-40 77-Bgl-892857:08 Urinalysis, Office (94375) Comments: done km UA - BILIRUBIN Negative (Normal) UA - BLOOD Negative (Normal) UA - GLUCOSE Negative (Normal) UA - KETONES Negative mg/dL (Normal) UA - LEUKOCYTE ESTERASE Small (Normal) UA - NITRITE Negative (Normal) UA - PH 6.0 (Normal) UA - PROTEIN Negative mg/dL (Normal) UA - SPECIFIC GRAVITY 1.015 (Normal) URINE UROBILINGN SUNNY TIMED Normal mg/dL (Normal) :25 HgA1C , Office (07589) HgA1C , Office 5.7 % (Normal) Range: 4.6 - 7.1 :25 Blood Glucose , Office (70523) Blood Glucose , Office 127 (Normal) 41-Rfp-135202:47 UNILAT LT DIAG DIGITAL & CAD Radiology Report See Note (Normal) Comments: Exam Number: [id number] MAMMOGRAM, UNILATERAL LEFT DIAGNOSTIC DIGITAL AND CAD [...] mammograms werealso examined with computer-aided detection software ([employer].). Reported By: CHASTITY RETANA M.D. 38-Pbg-78304:10 [facility] DIGITAL & CAD Radiology Report See Note (Normal) Comments: Exam Number: [id number] MAMMOGRAM, BILATERAL SCREENING DIGITAL AND CAD HISTORYRoutine [...] mammograms werealso examined with computer-aided detection software ([employer] Reported By: CHASTITY RETANA M.D. :36 HgA1C , Office (67959) HgA1C , Office 7.4 % (Abnormal) Range: 4.6 - 7.1 :36 Blood Glucose , Office (19212) Blood Glucose , Office 168 (Normal) :15 [...] Range: 5-40 :15 MICROALBUMIN,UR 6.7 mg/L (Normal) 30-Gnw-568553:15 TSH 1.71 {uIU/mL} (Normal) Range: 0.34-4.82 :46 CBC WITH MANUAL DIFF (15839) Comments: PATIENT NOT FASTINGClinical Information: ADD [id number] ADD [id number] PERFORMED BY: [facility]6370 [facility] [id number] Baso (Absolute) 0.0 {x10E3/uL} (Normal) Range: 0.0-0.2 [...] Report See Note (Normal) Comments: Exam Number: [id number] MYOCARDIAL PERFUSION SCAN TECHNIQUEThe patient was injected [...] FLOR WEI M.D. :44 HgA1C , Office (21097) HgA1C , Office 7.2 % (Abnormal) Range: 4.6 - 7.1 :44 Blood Glucose , Office (62732) Blood Glucose , Office 141 (Normal) :48 HgA1C , Office (08661) HgA1C , Office 7.3 % (Abnormal) Range: 4.6 - 7.1 :47 Blood Glucose , Office (69991) Blood Glucose , Office 148 (Normal) :12 [...] :12 TSH 1.61 {uIU/mL} (Normal) Range: 0.34-4.82 36-Szy-566560:10 CBCD,SMEAR DIFF BASOPHIL 1 % (Normal) Range: [...] Range: 4.4-11.0 :46 Blood Glucose , Office (63524) Blood Glucose , Office 163 (Normal) :24 HgA1C , Office (21950) HgA1C , Office 6.6 % (Normal) Range: 4.6 - 7.1 :24 Blood Glucose , Office (06797) Blood Glucose , Office low (Normal) :09 HgA1C , Office (28667) Comments: done HgA1C , Office 6.5 % (Normal) Range: 4.6 - 7.1 :09 Blood Glucose , Office (61902) Comments: done Blood Glucose , Office 161 [...] (Normal) Range: 0.34-4.82 :05 HgA1C , Office (31581) HgA1C , Office 7.2 % (Abnormal) Range: 4.6 - 7.1 90-Mqp-694679:05 Blood Glucose , Office (14260) Blood Glucose , Office 114 (Normal) :35 [...] Report See Note (Normal) Comments: Exam Number: [id number] CHEST, PA AND LATERAL HISTORYShortness of breath. FINDINGSCardiac configuration is normal. There is mild overinflation of thelungs. No acute infiltrate, effusion, or pneumothora x is identified. IMPRESSIONNo acute changes noted in the lungs. Reported By: FLOR CHOWDHURY M.D. 03-Nvj-400912:59 CHEST, PA AND LATERAL Radiology Report See Note (Normal) Comments: Exam Number: [id number] PA AND LATERAL CHEST HISTORY Being done [...] infiltrate identified. Reported By: FLOR CHOWDHURY M.D. 63-Ydq-418605:59 JHONNY 18078 59 U/L (Normal) Range: - Comments: Performed At: [address] [id number] 47-Wel-429560:06 JHONNY 89104 61 U/L (Normal) Range: -09-Jul-200610:06 REBECCA-D 657297 REBECCA-DIRECT 31 U/mL (Normal) Range: 0-99 Comments: Negative <100 Equivocal 100 - 120 Positive >120 79-Uvg-033635:06 C-REACTIVE PROT 7.75 mg/L (Abnormal) Range: 0.0-6.0 Comments: Test performed using the Dimension C-Reactive ProteinExtended Range assay method. This assay meets the AHA/CDC 2003 recommendations fordetermining patients at high risk for cardiovasculardisease. Reference: High risk CRP >3.0 mg/L 68-Ovz-004045:06 CBCD,SMEAR DIFF CELLS COUNTED 100 (Normal) EOS [...] 47-70 WBC 4.4 K/mm3 (Normal) Range: 4.4-11.0 99-Lzq-944273:06 ESR SED RATE 5 mm/h (Normal) Range: 0-30 69-Cdv-253807:06 HISTOPL 793508 SeeNote (Normal) Comments: Result: Negative Performed At: [facility] [place], [place] [id number] At: [facility] [address] [id number] LDH 170 U/L (Normal) Range: 100-190 91-Rvg-060581:06 RA LATEX 6502 4.4 {IU/mL} (Normal) Range: [...] methodology of Hgb A1C has changed to Schleicher BehringDimension RXL. No significant changes in patientresults [...] (Normal) Range: 0.34-4.82 :31 HgA1C , Office (40582) HgA1C , Office 7.9 % (Abnormal) Range: 4.6 - 7.1 :31 Blood Glucose , Office (37829) Blood Glucose , Office 302 (Normal) Plan [...] Make follow up apt with Silas and Osd ClerkMaximino on September 23 between 2-4 Indication: Acute [...] Wheezing Cough : Follow up tomorrow with [facility] Indication: Cough Unspecified asthma with (acute) exacerbation [...] Indication: Acute sinusitis Planned Observations Lipid Panel (06754)Indication: Diabetes mellitus type II, controlled, with no complications (Renamed from Controlled type 2 diabetes mellitus without complication) On: :31 Request MICROALBUMIN: CREATININE RATIO (23091) AND (12223)Indication: Diabetes mellitus type II, controlled, with no complications (Renamed from Controlled type 2 diabetes mellitus without complication) On: :30 Request TSH (76948)Indication: Diabetes mellitus type II, controlled, with no complications (Renamed from Controlled type 2 diabetes mellitus without complication) On: :30 Request CBC, Platelets & Auto Diff (96283)Indication: Diabetes mellitus type II, controlled, with no complications (Renamed from Controlled type 2 diabetes mellitus without complication) On: :30 Request Metabolic Panel, Comprehensive (66761)Indication: Diabetes mellitus type II, controlled, with no complications (Renamed from Controlled type 2 diabetes mellitus without complication) On: 5-Qcc-721665:30 Request GLUCOSE (19636)Indication: Hypoglycemia On: 07-Gcq-080496:48 Request Cortisol,Urinary Free 24- Hour Urine (16686)Indication: Adrenal adenoma, right On: 28-Vfm-904927:54 Request Catecholamines,24-Hour Urine (41233)Indication: Adrenal adenoma, right On: 62-Rbt-254900:54 Request DHEA (DEHYDROEPIANDROSTERONE) (44182)Indication: Adrenal adenoma, right On: 90-Urr-971813:51 Request METABOLIC PANEL, COMPREHENSIVE (20035)Indication: Adrenal adenoma, right On: 03-Uty-638395:51 Request LIPID PANEL (04129)Indication: Hypercholesteremia On: 12-Bkj-04163:23 Request HGB A1C (80087)Indication: Diabetes mellitus type II, controlled, with no complications (Renamed from Controlled type 2 diabetes mellitus without complication) On: 69-Mbu-882007:00 Request Comments: Jun 2016 1 week before apt METABOLIC PANEL, COMPREHENSIVE (15700)Indication: Hypercalcemia On: 20-Ppz-821204:03 Request GLUCOSE (26447)Indication: Type 2 or unspecified type diabetes mellitus, uncontrolled On: 21-Zkb-940588:00 Request METABOLIC PANEL, COMPREHENSIVE (80587)Indication: Type 2 or unspecified type diabetes mellitus, uncontrolled On: 43-Gku-751722:28 Request CALCIFEDIOL (09803)Indication: Vitamin D deficiency, unspecified On: :27 Request URINALYSIS, W/ MICRO (03685)Indication: Type 2 or unspecified type diabetes mellitus, uncontrolled On: 88-Ucf-919454:18 Request MICROALBUMIN: CREATININE RATIO (20236) AND (96027)Indication: Type 2 or unspecified type diabetes mellitus, uncontrolled On: 71-Ysv-547042:18 Request TSH (30524)Indication: Type 2 or unspecified type diabetes mellitus, uncontrolled On: 03-Mfz-039548:18 Request Lipid Panel (59869)Indication: Type 2 or unspecified type diabetes mellitus, uncontrolled On: 73-Sei-107925:18 Request Metabolic Panel, Comprehensive (43818)Indication: Type 2 or unspecified type diabetes mellitus, uncontrolled On: 42-Ayi-799914:18 Request HGB A1C (87260)Indication: Type 2 or unspecified type diabetes mellitus, uncontrolled On: 80-Dnn-783049:14 Request Comments: 6.6 CBC W/AUTO DIFF WBC (41357)Indication: Hypertension On: :07 Request METABOLIC PANEL, COMPREHENSIVE (00620)Indication: Hypertension On: :07 Request Vitamin D Hydroxy (68861)Indication: Vitamin D deficiency, unspecified On: 74-Isj-698903:07 Request LIPID PANEL (47930)Indication: Other and unspecified hyperlipidemia On: :07 Request Vitamin D Hydroxy (94933)Indication: Vitamin D deficiency, unspecified On: :15 Request CBC with auto diff (31633)Indication: Hypertension On: :14 Request TSH (96903)Indication: Hypothyroidism On: :14 Request MICROALBUMIN: CREATININE RATIO (47179) AND (35871)Indication: Type 2 or unspecified type diabetes mellitus, uncontrolled On: :14 Request METABOLIC PANEL, COMPREHENSIVE (48979)Indication: Hypertension On: :14 Request LIPID PANEL (11473)Indication: Other and unspecified hyperlipidemia On: :13 Request MYOGLOBIN (23344)Indication: Chest pain On: :52 Request CPK MB FRACTION (17974)Indication: Chest pain On: :52 Request ASSAY, TROPONIN, QUANTITATIVE (aka Troponin I) (10847)Indication: Chest pain On: :52 Request CBC WITH MANUAL DIFF (95769)Indication: Acute exacerbation of COPD with asthma On: 06-Aug-20149:52 Request CALCIFEDIOL (68251)Indication: Depression On: 73-Mmf-055942:50 Request Lipid Panel (36063)Indication: Other and unspecified hyperlipidemia On: 81-Lup-778584:50 Request TSH (94466)Indication: Hypothyroidism On: 85-Ylu-897833:49 Request URINALYSIS (45564)Indication: Hypertension On: 29-Enn-867921:49 Request CBC WITH MANUAL DIFF (29472)Indication: Hypertension On: 35-Jdw-347244:49 Request Metabolic Panel, Comprehensive (05745)Indication: Hypertension On: 55-Dcg-971816:49 Request CBC (AUTO) (46305)Indication: Hypercalcemia On: 7-Uvx-054230:06 Request UPEP (91020)Indication: Hypercalcemia On: 2-Fps-599399:06 Request SPEP (78076)Indication: Hypercalcemia On: 0-Czu-851251:06 Request SED RATE ERYTHROCYTE (47797)Indication: Hypercalcemia On: 7-Sql-271508:06 Request CALCIUM SERUM (62507)Indication: Hypercalcemia On: 8-Vxa-001464:05 Request PARATHORMONE (61018)Indication: Hypercalcemia On: 3-Gym-096721:05 Request FECAL OCCULT HGB ASSAY- tubes sent home (17712)Indication: Well woman exam with routine gynecological exam On: 30-Huf-123861:54 Request HgA1C , Office (66238)Indication: Type 2 or unspecified type diabetes mellitus, uncontrolled On: 78-Qch-712705:45 Request CBC WITH MANUAL DIFF (00427)Indication: Osteopenia On: 33-Ymi-958030:23 Request Vitamin D Hydroxy (51830)Indication: Vitamin D deficiency, unspecified On: 47-Ltc-443386:22 Request TSH (78302)Indication: Hypothyroidism On: :22 Request METABOLIC PANEL, COMPREHENSIVE (86005)Indication: Sarcoidosis On: :21 Request Thin prep Pap (97270)Indication: Well woman exam with routine gynecological exam On: 4-Dna-900401:16 Request FECAL OCCULT HGB ASSAY- tubes sent home (79244)Indication: Well woman exam with routine gynecological exam On: 4-Zmk-983099:16 Request METABOLIC PANEL, COMPREHENSIVE (92115)Indication: Type 2 or unspecified type diabetes mellitus, uncontrolled On: 1-Iep-477358:14 Request CBC WITH MANUAL DIFF (04896)Indication: Type 2 or unspecified type diabetes mellitus, uncontrolled On: 9-Mqt-678135:14 Request MICROALBUMIN: CREATININE RATIO (48230) AND (63549)Indication: Type 2 or unspecified type diabetes mellitus, uncontrolled On: 5-Oln-836619:14 Request Vitamin D Hydroxy (88171)Indication: Vitamin D deficiency, unspecified On: 2-Tvg-073827:14 Request METABOLIC PANEL, COMPREHENSIVE (49966)Indication: Benign essential hypertension On: 3-Cnc-591045:14 Request TSH (05372)Indication: Hypothyroidism On: 3-Whz-237301:14 Request LIPID PANEL (80828)Indication: Other and unspecified hyperlipidemia On: 1-Chp-685511:14 Request HgA1C , Office (92304)Indication: Type 2 or unspecified type diabetes mellitus, uncontrolled On: 9-Esu-428395:43 Request CBC WITH MANUAL DIFF (82506)Indication: Benign essential hypertension On: 2-Bkh-426450:22 Request METABOLIC PANEL, COMPREHENSIVE (81664)Indication: Benign essential hypertension On: 1-Dtz-846921:22 Request LIPID PANEL (85736)Indication: Other and unspecified hyperlipidemia On: 6-Uvd-174859:22 Request MEHREEN CULTURE-OTHER (37793)Indication: Pharyngitis, acute On: 43-Zzc-557719:38 Request LIPID PANEL (30908)Indication: Other and unspecified hyperlipidemia On: :40 Request CBC WITH MANUAL DIFF (63220)Indication: DIABETES MELLITUS WITHOUT MENTION OF COMPLICATION; TYPE II OR UNSPECIFIED TYPE, NOT STATED UNCONTROLLED On: :40 Request METABOLIC PANEL, COMPREHENSIVE (94871)Indication: DIABETES MELLITUS WITHOUT MENTION OF COMPLICATION; TYPE II OR UNSPECIFIED TYPE, NOT STATED UNCONTROLLED On: 16-Otk-298620:40 Request Vitamin D Hydroxy (09875)Indication: Vitamin D deficiency, unspecified On: :38 Request CULTURE, SPUTUM (53229)Indication: Flu On: 53-Znu-655970:45 Request nasal influenza swab (60161) R9Nychnyuxjn: Cough On: 0-Nxr-953541:00 Request Rapid Flu (70555 x 2)Indication: Cough On: 3-Vys-184287:53 Request HEPATIC FUNCTION PANEL (07080)Indication: Other and unspecified hyperlipidemia On: 20-Boc-45373:42 Request LIPID PANEL (73902)Indication: Other and unspecified hyperlipidemia On: :42 Request Vitamin D Hydroxy (45275)Indication: Vitamin D deficiency, unspecified On: :41 Request Lipase (96999)Indication: Nausea On: 36-Ybd-904605:41 Request Amylase (38913)Indication: Nausea On: 01-Pke-703868:41 Request C-REACTIVE PROTEIN (60202)Indication: SOB (shortness of breath) on exertion On: :39 Request SED RATE ERYTHROCYTE (62111)Indication: SOB (shortness of breath) on exertion On: :39 Request METABOLIC PANEL, COMPREHENSIVE (67746)Indication: SOB (shortness of breath) on exertion On: :39 Request CBC WITH MANUAL DIFF (51194)Indication: SOB (shortness of breath) on exertion On: 41-Khj-275299:39 Request D-Dimer (17569)Indication: SOB (shortness of breath) on exertion On: 97-Qyf-705542:39 Request TSH (10445)Indication: Hypothyroidism On: 79-Efl-417736:41 Request MICROALBUMIN: CREATININE RATIO (13258) AND (69037)Indication: DIABETES MELLITUS WITHOUT MENTION OF COMPLICATION; TYPE II OR UNSPECIFIED TYPE, NOT STATED UNCONTROLLED On: 66-Rrf-308880:37 Request HEPATIC FUNCTION PANEL (75177)Indication: Other and unspecified hyperlipidemia On: 34-Zsf-519373:37 Request LIPID PANEL (00456)Indication: Other and unspecified hyperlipidemia On: 37-Jic-502958:37 Request URINE MEHREEN CULTURE-SUNNY COL COUNT (65646)Indication: Urinary frequency On: 54-Uff-423862:05 Request URINE MEHREEN CULTURE-SUNNY COL COUNT (34257)Indication: Urinary frequency On: 92-Wyz-571000:05 Request URINE MEHREEN CULTURE-SUNNY COL COUNT (91642)Indication: Urinary frequency On: 00-Bkp-862313:05 Request URINE MEHREEN CULTURE-SUNNY COL COUNT (87994)Indication: Urinary frequency On: 46-Xei-880808:05 Request URINE MEHREEN CULTURE-SUNNY COL COUNT (33154)Indication: Urinary frequency On: 44-Qgd-878392:05 Request URINE MEHREEN CULTURE-SUNNY COL COUNT (48229)Indication: Urinary frequency On: 68-Guv-810493:05 Request URINE MEHREEN CULTURE-SUNNY COL COUNT (93617)Indication: Urinary frequency On: 59-Ltd-128610:05 Request MEHREEN CULTURE-OTHER (53335)Indication: Family history of aneurysm On: 15-Lwb-683840:17 Request MICROALBUMIN URINE QUANT (18624)Indication: Type 2 or unspecified type diabetes mellitus, uncontrolled On: 89-All-12720:55 Request METABOLIC PANEL, COMPREHENSIVE (99805)Indication: Hypertension On: :54 Request TSH (53050)Indication: Hypothyroidism On: 79-Tmk-67971:54 Request LIPID PANEL (24462)Indication: Other and unspecified hyperlipidemia On: 33-Pbj-54410:53 Request TSH (42398)Indication: Hypothyroidism On: 69-Sdq-695619:49 Request METABOLIC PANEL, COMPREHENSIVE (50729)Indication: DIABETES MELLITUS WITHOUT MENTION OF COMPLICATION; TYPE II OR UNSPECIFIED TYPE, NOT STATED UNCONTROLLED On: 80-Cnc-067162:49 Request LIPID PANEL (88969)Indication: DIABETES MELLITUS WITHOUT MENTION OF COMPLICATION; TYPE II OR UNSPECIFIED TYPE, NOT STATED UNCONTROLLED On: 67-Cxn-425366:49 Request CBC WITH MANUAL DIFF (15866)Indication: Anemia On: :49 Request Rapid Strep Test, Office (89288)Indication: Pharyngitis, acute On: 51-Qsh-597966:27 Request Comments: neg HDL Cholesterol-Direct (15596)Indication: Low HDL (under 40) On: 39-Bui-710817:41 Request Comments: DO IN 3 MO LIPID PANEL (45131)Indication: Other and unspecified hyperlipidemia On: :54 Request URINALYSIS W/O MICRO (11987)Indication: Hypertension On: :54 Request TSH (52819)Indication: Hypothyroidism On: :54 Request METABOLIC PANEL, COMPREHENSIVE (72575)Indication: Hypertension On: :54 Request CBC WITH MANUAL DIFF (30554)Indication: Anemia On: 50-Boz-168312:54 Request TSH (26097)Indication: Hypothyroidism On: :59 Request URINALYSIS W/O MICRO (92543)Indication: Type 2 or unspecified type diabetes mellitus, uncontrolled On: :59 Request CBC WITH MANUAL DIFF (46214)Indication: Type 2 or unspecified type diabetes mellitus, uncontrolled On: :59 Request MICROALBUMIN: CREATININE RATIO (16041) AND (38827)Indication: Type 2 or unspecified type diabetes mellitus, uncontrolled On: :58 Request METABOLIC PANEL, COMPREHENSIVE (76964)Indication: Type 2 or unspecified type diabetes mellitus, uncontrolled On: :58 Request HgA1C , Office (51686)Indication: Abnormal glucose tolerance test On: :35 Request Blood Glucose , Office (26054)Indication: Abnormal glucose tolerance test On: 83-Wor-008971:35 Request Planned Encounters Medical; [facility] Medicare Physical - On: 17-May-2018 14:30 [facility] CiDafne garza CNP, CNP, Mary E Planned Procedures CT - LDCT CHEST ( WITHOUT CONTRAST On: 02-May-2018 Intent )By: Dafne Jaime CNP, CNP, Mary E PFT - Before and After SpiroBy: On: 02-May-2018 Intent Dafne Jaime CNP, CNP, Mary E SIX MINUTE WALK TEST (78999)By: On: 20-Apr-2018 Intent Visit, Nurse SPIROMETRY PERFORMED (65562)By: On: 20-Apr-2018 Intent Visit, Nurse SPIROMETRY PERFORMED (40892)By: On: 20-Apr-2018 Intent Visit, Nurse INFUSION, NORMAL SALINE SOLUTION , On: 24-Jan-2018 Intent 1000 CC (Special Coverage Comments: lot:[id number]:IV right anticub dose:1000ml given by:carmen Shay LPN Instructions Apply. See MCM: 2049) (J7030)By: Dafne Jaime CNP, CNP, Mary E IV Needle placement (47634)By: On: 24-Jan-2018 Intent Dafne Jaime CNP, CNP, Mary E Radiology - Lumbar SpineBy: On: 23-Dec-[address] - Abdomen & Pelvis Stone On: 23-Dec-2017 Intent ProtocolBy: Yoselin Oconnell Comments: STAT R/O Kidney stones bilateral COMP EYE EXAMINATION, ESTAB PATIENT On: 09-Dec-2017 Intent (69149)By: Yoselin Oconnell Toradol Injection, 30 mg On: 12-Jul-2017 Intent (J1885)By: Dafne Jaime CNP, CNP, Mary E Toradol Injection, 30 mg On: 07-Apr-2017 Intent (J1885)By: Dafne Jaime CNP, CNP, Mary E Flu Vaccine (Quadrivalent) 93700Ns: On: 24-Mar-2017 Intent Dafne Jaime CNP, CNP, Mary E Toradol Injection, 30 mg On: 24-Mar-2017 Intent (J1885)By: Dafne Jaime CNP, CNP, Mary E Rocephin Injection, 2 Gram On: 18-Nov-2016 Intent (J0696)By: Dafne Jaime CNP, CNP, Mary E Aerosol Treatment (85820)By: Addison On: 18-Nov-2016 Intent Dafne DOUGHERTY CNP, Mary E Solu -Medrol Injection, 125 mg On: 18-Nov-2016 Intent (J2930)By: Dafne Jaime CNP, CNP, Mary E MAMMOGRAM, SCREENING, BOTH BREAST On: 19-Aug-2016 Intent (27320)By: Dafne Jaime CNP, CNP, Mary E DEXA SCAN AXIAL SKELETON (70054)By: On: 19-Aug-2016 Intent Dafne Jaime CNP, CNP, Mary E GROUP PULMONARY REHABILITATION WITH On: 11-Feb-2016 Intent EXERCISE (62585)By: Dafne Jaime CNP, CNP, Mary E Six Minute Walk Assessment On: 17-Oct-2015 Intent (09347)By: Visit, Nurse PFT - CompleteBy: Vanessa Chen MD On: 24-Sep-2015 Intent M Rocephin Injection, 2 Gram On: 21-Aug-2015 Intent (J0696)By: Dafne Jaime CNP Comments: IV 2 gramsright ylzydgs09 guagetolerated welllot [id number] 02/12as, Dafne SILVA CNP INFUSION, NORMAL SALINE SOLUTION , On: 21-Aug-2015 Intent 1000 CC (Special Coverage Instructions Apply. See MCM: 2049) (J7030)By: Dafne Jaime CNP, CNP, Mary E Solu -Medrol Injection, 125 mg On: 21-Aug-2015 Intent (J2930)By: Dafne Jiame CNP Comments: lot [id number] 12/1824 mcgIMright gmas, LAND LEVELER Dafne DOUGHERTY Radiology - ChestBy: Addison DOUGHERTY, On: 20-Aug-2015 Intent Dafne Durán CNP Comments: call results to MCiesa INFUSION, NORMAL SALINE SOLUTION , On: 20-Aug-2015 Intent 250 CC (J7050)By: Dafne Jaime CNP, CNP, Mary E Rocephin Injection, 2 Gram On: 20-Aug-2015 Intent (J0696)By: Dafne Jaime CNP Comments: IV 2 gramsright irhiumf07 guagetolerated well, no redness notedlot [id number] 01/26/18asSHIRA CNP Radha Solu -Medrol Injection, 125 mg On: 20-Aug-2015 Intent (J2930)By: Dafne Jaime CNP Comments: SOLUMEDROLlot:[id number]:ite:lt glutroute:IMdose:125mgDEMICK, LINDA DOUGHERTY Radha Aerosol Treatment (51820)By: Slarb On: 20-Aug-2015 Intent LAND LEVELER, Gloria Rocephin Injection, 2 Gram On: 19-Aug-2015 Intent (J0696)By: Dafne Jaime CNP Comments: [id number] hip, IM JM, ANNELIESE DOUGHERTY Radha Solu -Medrol Injection, 125 mg On: 19-Aug-2015 Intent (J2930)By: Dafne Jaime CNP Comments: [id number] hip, IMDose-prefilled syringegiven by:DOUGLAS House signed LADONNA Dafne Mota Aerosol Treatment (00332)By: Harman On: 19-Aug-2015 Intent LAND LEVELER, Gloria Solu -Medrol Injection, 125 mg On: 07-Jun-2015 Intent (J2930)By: Giovani Hutchins MD Comments: [id number] hip, IMDose-prefilled syringegiven by:ASHLY PERALES signed Rocephin Injection, 2 Gram On: 07-Jun-2015 Intent ([id number])By: Giovani Hutchins MD Comments: [id number] grams rocephin IV22G, 1 inchSite: existing lock flushed easily before and after and then d/c for the weekendTolerated: wellno redness or swelling, no s/s infiltrationML, LAND LEVELER INFUSION, NORMAL SALINE SOLUTION , On: 07-Jun-2015 Intent 250 CC ([id number])By: Giovani Hutchins MD INFUSION, NORMAL SALINE SOLUTION , On: 06-Jun-2015 Intent 250 CC ([id number])By: Giovani Hutchins MD Rocephin Injection, 2 Gram On: 06-Jun-2015 Intent (J0696)By: Giovani Hutchins MD Comments: [id number] gramsIV Therapy llelotdsd92I, 1 inchSite: R ac - lock flushed nicely and left in place for tomorrowTolerated: well x 1st attemptno redness or swelling, no s/s infiltrationML, LAND LEVELER Solu -Medrol Injection, 125 mg On: 06-Jun-2015 Intent (J2930)By: Giovani Hutchins MD Comments: [id number] hip, IMML, LAND LEVELER Radiology - ChestBy: Liset HUTCHINSON, On: 06-Jun-2015 Intent Giovani Comments: Acute execerbation of COPD?PNA Aerosol Treatment ([id number])By: Liset On: 06-Jun-2015 Intent Giovani HUTCHINSON Overnight Pulse OX ([id number])By: Marquise On: 03-Jun-2015 Jackie Mena DO Six Minute Walk Assessment On: 29-May-2015 Intent ([id number])By: Jackie Christina DO Overnight Pulse OX ([id number])By: Marquise On: 29-May-2015 Jackie Mena DO MAMMOGRAM, SCREENING, BOTH BREAST On: 03-May-2015 Intent ([id number])By: Jackie Christina DO Six Minute Walk Assessment On: 25-Feb-2015 Intent ([id number])By: Jackie Christina DO Overnight Pulse OX ([id number])By: Marquise On: 25-Feb-2015 Jackie Mena DO BILATERAL MAMMOGRAMS ([id number])By: On: 26-Nov-2014 Intent Jackie Christina DO EKG (27548)By: Jackie Christina DO On: 26-Nov-2014 Intent Comments: ekg showed normal sinus rhythym, normal axis, no acute st/t wave changes twave inversion ant no change Solu -Medrol Injection, 125 mg On: 08-Aug-2014 Intent (J2930)By: Dafne Jaime CNP Comments: [id number], IMR hip, IMJM, SEAM RUBBER Dafne DOUGHERTY Rocephin Injection, 2 Gram On: 08-Aug-2014 Intent (J0696)By: Dafne Jaime CNP Comments: 9.8109403923x2 grams IV R ac, x 1 attempt - tolerated well Alisha, LAND LEVELER Dafne DOUGHERTY INFUSION, NORMAL SALINE SOLUTION , On: 08-Aug-2014 Intent 250 CC (J7050)By: Dafne Jaime CNP, CNP, Mary E IV Needle placement (23464)By: On: 07-Aug-2014 Intent Dafne Jaime CNP, CNP, Mary E Comments: 22G insyte initiated on 1st attempt w/o difficulty, no s/s redness, swelling infiltration, infusing on gravity pole at 38gtts/min, dsg dry intact, catheter removed intact- tolerated well- CTyler LAND LEVELER Solu -Medrol Injection, 125 mg On: 07-Aug-2014 Intent (J2930)By: Dafne Jaime CNP Comments: Lot:[id number]:12/2016Dose:125mgRoute:imSite:r armGiven By:FADIA signed Dafne DOUGHERTY INFUSION, NORMAL SALINE SOLUTION , On: 07-Aug-2014 Intent 250 CC (J7050)By: Dafne Jaime CNP, CNP, Mary E Rocephin Injection, 2 Gram On: 07-Aug-2014 Intent (J0696)By: Dafne Jaime CNP Comments: lot # [id number]- 02/26/2017site-R Median antecuberoute-IVdose- 2GCTyler LAND LEVELER Dafne DOUGHERTY Aerosol Treatment ([id number])By: Addison On: 07-Aug-2014 Intent Dafne DOUGHERTY CNP, Mary E Comments: ipitropium- tolerated well- CTyler LAND LEVELER Radiology - ChestBy: Addison DOUGHERTY, On: 06-Aug-2014 Intent Dafne Durán CNP Rocephin Injection, 2 Gram On: 06-Aug-2014 Intent (J0696)By: Dafne Jaime CNP, CNP, Mary E Solu -Medrol Injection, 125 mg On: 06-Aug-2014 Intent (J2930)By: Dafne Jaime CNP, CNP, Mary E Aerosol Treatment ([id number])By: On: 31-Jul-2014 Intent Vanessa Chen MD Solu- Medrol Injection, 125mg On: 31-Jul-2014 Intent (J2930)By: Vanessa Chen MD Eprescribed prescriptions On: 31-Jul-2013 Intent (G8553)By: Ivanna Maddox Overnight Pulse OX ([id number])By: Marquise On: 10-May-2013 Intent Jackie JHAVERI Spirometry ([id number])By: Marquise JHAVERI, On: 02-May-2013 Intent Jackie Rondon Comments: good effort cure mild obst EKG ([id number])By: Ivanna Maddox On: 02-May-2013 Intent Comments: ekg showed normal sinus rhythym, normal axis, no acute st/t wave changes no change in twave inversion ant Six Minute Walk Assessment On: 02-May-2013 Intent (28339)By: Jackie Christina DO Overnight Pulse OX ([id number])By: Marquise On: 02-May-2013 Jackie Mena DO Eprescribed prescriptions On: 02-May-2013 Intent (G8553)By: Ivanna Maddox MAMMOGRAM, SCREENING, BOTH BREASTS On: 18-Apr-2013 Intent ([id number])By: Jackie Christina DO Clinical Breast Examination On: 18-Apr-2013 Intent (G0101)By: Ivanna Maddox Solu- Medrol Injection, 125mg On: 26-Oct-2012 Intent (J2930)By: Jackie Christina DO Comments: Lot #[id number]-R hip, IMDose- prefilled syringegiven by:VANESA House signed Aerosol Treatment (82132)By: Marquise On: 26-Oct-2012 Jackie Mena DO Eprescribed prescriptions On: 26-Oct-2012 Intent (G8553)By: Ivanna Maddox Pulse Oximetry (99768)By: Tan On: 26-Oct-2012 Rajesh Goncalves Comments: 98% Spirometry (28680)By: Abi JHAVERI On: 06-Sep-2012 Rajesh Christian Comments: mild restrictive Aerosol Treatment (38435)By: Abi On: 06-Sep-2012 Anahi Mena DO Comments: done pt tolerated well. Albuterol 0.83%-- better a/e no wheeze Solu- Medrol Injection, 125mg On: 06-Sep-2012 Intent (J2930)By: Anahi Alex DO Comments: 2ml given im lt hip lot [id number] exp 04/11 Eprescribed prescriptions On: 06-Sep-2012 Intent (G8553)By: Anahi Alex DO Pulse Oximetry (62957)By: Abi On: 06-Sep-2012 Anahi Mena DO Eprescribed prescriptions On: 22-Aug-2012 Intent (G8553)By: Ivanna Maddox Overnight Pulse OX ([id number])By: Marquise On: 03-May-2012 Jackie Mena DO Comments: Patient demonstrates understanding of how to operate macine. Alisha. Eprescribed prescriptions On: 27-Apr-2012 Intent (G8553)By: Ivanna Maddox Six Minute Walk Assessment On: 01-Apr-2012 Intent (83623)By: Virgen Real LPN PNEUM VAC ADLT/IMUMNOSPR, SBC/INTRM On: 18-Mar-2012 Intent (87335)By: Jackie Christina DO Comments: Lot:[id number]:08-10-13Dose:0.5 mLRoute: Site:[facility] By:FADIA signed PFT - CompleteBy: Jackie Christina DO On: 18-Mar-2012 Intent Six Minute Walk Assessment On: 18-Mar-2012 Intent (12831)By: Jackie Christina DO Overnight Pulse OX (80389)By: Marquise On: 18-Mar-2012 Jackie Mena DO IMMUNIZ ADMNIN, 1 VAC, SNGL/COMBO On: 18-Mar-2012 Intent (99597)By: Jackie Christina DO DXA, BONE DENSITY, AXIAL SKELETON On: 18-Mar-2012 Intent ([id number])By: Jackie Christina DO MAMMOGRAM, SCREENING, BOTH BREASTS On: 18-Mar-2012 Intent (53120)By: Jackie Christina DO CT - ChestBy: Jackie Christina DO On: 03-Feb-2012 Intent Solu- Medrol Injection, 125mg On: 30-Sep-2011 Intent (J2930)By: Jackie Christina DO Comments: Lot #[id number]-right [id number] by: Tiny Cox, LAND LEVELER Aerosol Treatment ([id number])By: Marquise On: 30-Sep-2011 Jackie Mena DO Pulse Oximetry (24434)By: Tan On: 30-Sep-2011 Intent Ivanna Comments: 97% Solu -Medrol Injection, 125 mg On: 25-Sep-2011 Intent (J2930)By: Addison DOUGHERTY, Dafne Acevedoa LADONNA, Radha Pulse Oximetry (24643)By: Addison On: 25-Sep-2011 Intent WIRE STRAIGHTENER, Radha Tgezraa WIRE STRAIGHTENER, Radha FLU VAC, SPLIT, >3 YEARS, INTRAMUSC On: 01-Jul-2011 Intent ([id number])By: Ivanna Maddox Comments: work MAMMOGRAM, SCREENING, BOTH BREASTS On: 31-Mar-2011 Intent (44356)By: Jackie Christina DO Solu -Medrol Injection, 125 mg On: 31-Mar-2011 Intent (J2930)By: Jackie Christina DO Eprescribed prescriptions On: 31-Mar-2011 Intent (G8553)By: Jackie Christina DO Solu- Medrol Injection, 125mg On: 16-Dec-2010 Intent (J2930)By: Jackie Christina DO Comments: lot # [id number]- [id number]- 2ML tolerated well Lenny LAND LEVELER Aerosol Treatment (97337)By: Marquise On: 16-Dec-2010 Intent Jackie JHAVERI Comments: tolerated well Pulse Oximetry (10856)By: Marquise JHAVERI On: 16-Dec-2010 Intent Jackie Rondon Comments: 96% on room air Eprescribed prescriptions On: 16-Dec-2010 Intent (G8553)By: Jackie Christina DO Pulse Oximetry (49413)By: Tan On: 15-Jul-2010 Intent Ivanna Comments: 96% TD Injection , IM (57098)By: Marquise On: 04-Jul-2010 Intent Jackie JHAVERI Comments: Lot #[id number]/12Site-R DltdDose 0.5mlgiven by:UDAY EKG (12202)By: Ivanna Maddox On: 04-Jul-2010 Intent Radiology - Lumbar SpineBy: Addison On: 12-May-2010 Intent Dafne DOUGHERTY CNP, Dafne Mota MAMMOGRAM, SCREENING, BOTH BREASTS On: 19-Nov-2009 Intent ([id number])By: Jer Christina DOa A MAMMOGRAM, SCREENING, BOTH BREASTS On: 07-May-2009 Intent (70665)By: Marquise JHAVERI Jackie A EKG (13919)By: Ivanna Maddox On: 07-May-2009 Intent Comments: ekg showed normal sinus rhythym, normal axis, no acute st/t wave changes Aerosol Treatment (35331)By: On: 22-Apr-2009 Intent Ivanna Aly Comments: post aerosol tx, pt states i can breath a whole lot better Radiology - Chest- PA and LatBy: On: 19-Apr-2009 Intent Anahi Alex DO Pulse Oximetry (03596)By: Addison On: 04-Apr-2009 Intent Dafne DOUGHERTY CNP, Mary E Aerosol Treatment (36665)By: Marquise On: 21-Sep-[address] - ChestBy: Jackie Christina DO A On: 21-Sep-2008 Intent Comments: please also look at right upper quadrant- do stat and call wet read Pulse Oximetry (05657)By: Tan On: 21-Sep-2008 Intent Ivanna Comments: 97% Radiology - Lumbar SpineBy: Marquise On: 14-Jun-2008 Intent DO Jackie A Comments: bone density suggest possible compression at l5 Ultrasound - AortaBy: Marquise JHAVERI, On: 24-Apr-2008 Intent Jackie A Holter Moniter ([id number])By: Marquise JHAVERI, On: 24-Apr-2008 Intent Jackie A EKG (26013)By: Jackie Christina DO A On: 24-Apr-2008 Intent Comments: ekg showed normal sinus rhythym, normal axis, no acute st/t wave changes negative precordial t waves == no change DXA, BONE DENSITY, AXIAL SKELETON On: 24-Apr-2008 Intent (81623)By: Jackie Christina DO INFUSION, NORMAL SALINE SOLUTION , On: 09-Nov-2007 Intent 1000CC (Special Coverage Instructions Apply. See MCM: 2049) (J7050)By: Anahi Alex DO IV Needle placement (11911)By: On: 09-Nov-2007 Intent Anahi Alex DO Comments: PLACED 22 G R ANTECUBITAL - PT DENY WELLGOOD RETURN IV Infusion (05656)By: Abi JHAVERI, On: 09-Nov-2007 Intent Anahi Nuclear Stress Test/Stress On: 17-Oct-2007 Intent SPECT/AdenosineBy: Jackie Christina DO Nuclear Stress Test/Stress On: 18-Jul-2007 Intent SPECT/AdenosineBy: Jackie Christina DO EKG (92154)By: Jackie Christina DO On: 18-Jul-2007 Intent Comments: ekg showed normal sinus rhythym, normal axis, no acute st/t wave changes has neg twaves on precordium but are unchanged Pneumovax (69504)By: Marquise JHAVERI, On: 11-Apr-2007 Intent Jackie Rondon EKG (42253)By: Anahi Alex DO On: 19-Jan-2007 Intent Comments: NSR NONSPECIFIC CHANGES-- Pulse Oximetry (46589)By: Abi On: 24-Sep-2006 Anahi Mena DO Comments: 98% RA Aerosol Treatment (42106)By: Abi On: 24-Sep-2006 Anahi Mena DO Comments: [...] 23-Sep-2006 Intent Anahi Alex DO Aerosol Treatment (09008)By: Abi On: 23-Sep-2006 Intent Anahi JHAVERI Comments: after aerosol- diffuse wheeze and rhonchi lil softer-- more air exchange though Pulse Oximetry (04331)By: Armond RN, On: 23-Sep-2006 Intent Karen Comments: 98% PNEUM VAC ADLT/IMUMNOSPR, SBC/INTRM On: 08-Jul-2006 Intent (63666)By: MARKIE Hayden IMMUNIZ ADMNIN, 1 VAC, SNGL/COMBO On: 08-Jul-2006 Intent (15892)By: MARKIE Hayden Planned Medications INFUSION, NORMAL SALINE SOLUTION , 1000 CC Ordered: 24-Jan-2018 Pending Ciesa WIRE STRAIGHTENER, Radha Ciesa WIRE STRAIGHTENER, Radha INFUSION, NORMAL SALINE SOLUTION , 1000 CC Ordered: 21-Aug-2015 Pending Ciesa WIRE STRAIGHTENER, Radha Ciesa WIRE STRAIGHTENER, Radha INFUSION, NORMAL SALINE SOLUTION , 250 CC Ordered: 20-Aug-2015 Pending Ciesa WIRE STRAIGHTENER, Radha Ciesa WIRE STRAIGHTENER, Radha INFUSION, NORMAL SALINE SOLUTION , 250 CC Ordered: 07-Jun-2015 Pending Liset HUTCHINSON Giovani INFUSION, NORMAL SALINE SOLUTION , 250 CC Ordered: 08-Aug-2014 Pending Ciesa WIRE STRAIGHTENER, Radha Ciesa WIRE STRAIGHTENER, Radha INFUSION, NORMAL SALINE SOLUTION , 250 CC Ordered: 07-Aug-2014 Pending Ciesa WIRE STRAIGHTENER, Radha Ciesa WIRE STRAIGHTENER, Radha INFUSION, NORMAL SALINE SOLUTION , 250 CC Ordered: 06-Jun-2015 Pending Giovani Hutchins MD INJECTION, CEFTRIAXONE SODIUM, PER 250 MG Ordered: 21-Aug-2015 Pending Ciesa WIRE STRAIGHTENER, Radha Ciesa WIRE STRAIGHTENER, Radha INJECTION, CEFTRIAXONE SODIUM, PER 250 MG Ordered: 07-Jun-2015 Pending Giovani Hutchins MD INJECTION, CEFTRIAXONE SODIUM, PER 250 MG Ordered: 06-Jun-2015 Pending Giovani Hutchins MD INJECTION, CEFTRIAXONE SODIUM, PER 250 MG Ordered: 19-Aug-2015 Pending Ciesa WIRE STRAIGHTENER, Radha Ciesa WIRE STRAIGHTENER, Radha INJECTION, CEFTRIAXONE SODIUM, PER 250 MG Ordered: 08-Aug-2014 Pending Ciesa WIRE STRAIGHTENER, Radha Ciesa WIRE STRAIGHTENER, Radha INJECTION, CEFTRIAXONE SODIUM, PER 250 MG Ordered: 20-Aug-2015 Pending Curtisa WIRE STRAIGHTENERDafneesa WIRE STRAIGHTENER, Radha INJECTION, CEFTRIAXONE SODIUM, PER 250 MG Ordered: 07-Aug-2014 Pending Curtisa WIRE STRAIGHTENER, Dafne Acevedoa WIRE STRAIGHTENER, Radha INJECTION, CEFTRIAXONE SODIUM, PER 250 MG Ordered: 06-Aug-2014 Pending Tgesa WIRE STRAIGHTENER, Dafne Masesa WIRE STRAIGHTENER, Radah INJECTION, CEFTRIAXONE SODIUM, PER 250 MG Ordered: 18-Nov-2016 Pending Curtisa WIRE STRAIGHTENER, Dafne Acevedoa WIRE STRAIGHTENER, Radha INJECTION, KETOROLAC TROMETHAMINE, PER 15 MG Ordered: 24-Mar-2017 Pending Tgesa WIRE STRAIGHTENER, Dafne Mota Ciesa WIRE STRAIGHTENER, Radha INJECTION, KETOROLAC TROMETHAMINE, PER 15 MG Ordered: 07-Apr-2017 Pending Curtisa WIRE STRAIGHTENER, Dafne Acevedoa WIRE STRAIGHTENER, Radha INJECTION, KETOROLAC TROMETHAMINE, PER 15 MG Ordered: 12-Jul-2017 Pending Curtisa WIRE STRAIGHTENERDafnea WIRE STRAIGHTENER, Radha INJECTION, METHYLPREDNISOLONE SODIUM SUCCINATE, UP TO 125 MG Ordered: 18-Nov-2016 Pending Curtisa WIRE STRAIGHTENERDafnea WIRE STRAIGHTENER, Radha INJECTION, METHYLPREDNISOLONE SODIUM SUCCINATE, UP TO 125 MG Ordered: 31-Mar-2011 Pending Fast DO, Jackie A INJECTION, METHYLPREDNISOLONE SODIUM SUCCINATE, UP TO 125 MG Ordered: 21-Aug-2015 Pending Curtisa Dafne DOUGHERTYa WIRE STRAIGHTENER, Radha INJECTION, METHYLPREDNISOLONE SODIUM SUCCINATE, UP TO 125 MG Ordered: 25-Sep-2011 Pending Curtisa WIRE STRAIGHTENERDafnea WIRE STRAIGHTENER, Radha INJECTION, METHYLPREDNISOLONE SODIUM SUCCINATE, UP TO 125 MG Ordered: 06-Aug-2014 Pending Curtisa WIRE STRAIGHTENERDafnea WIRE STRAIGHTENER, Radha INJECTION, METHYLPREDNISOLONE SODIUM SUCCINATE, UP TO 125 MG Ordered: 07-Jun-2015 Pending Liset HUTCHINSON, Giovani INJECTION, METHYLPREDNISOLONE SODIUM SUCCINATE, UP TO 125 MG Ordered: 19-Aug-2015 Pending Tgesa WIRE STRAIGHTENER, Dafne Mota Ciezraa WIRE STRAIGHTENER, Radha INJECTION, METHYLPREDNISOLONE SODIUM SUCCINATE, UP TO 125 MG Ordered: 31-Jul-2014 Pending Kita HUTCHINSON, Vanessa Durham INJECTION, METHYLPREDNISOLONE SODIUM SUCCINATE, UP TO 125 MG Ordered: 30-Sep-2011 Pending Fast DO, Jackie A INJECTION, METHYLPREDNISOLONE SODIUM SUCCINATE, UP TO 125 MG Ordered: 06-Jun-2015 Pending Giovani Hutchins MD INJECTION, METHYLPREDNISOLONE SODIUM SUCCINATE, UP TO 125 MG Ordered: 08-Aug-2014 Pending Ciezraa WIRE STRAIGHTENER Radha Ciezraa WIRE STRAIGHTENER, Radha INJECTION, METHYLPREDNISOLONE SODIUM SUCCINATE, UP TO 125 MG Ordered: 06-Sep-2012 Pending Ailin Alex DOhleen INJECTION, METHYLPREDNISOLONE SODIUM SUCCINATE, UP TO 125 MG Ordered: 07-Aug-2014 Pending Ciesa WIRE STRAIGHTENER, Radha Ciesa WIRE STRAIGHTENER, Radha INJECTION, METHYLPREDNISOLONE SODIUM SUCCINATE, UP TO 125 MG Ordered: 26-Oct-2012 Pending Fast DO, Jackie A INJECTION, METHYLPREDNISOLONE SODIUM SUCCINATE, UP TO 125 MG Ordered: 20-Aug-2015 Pending Ciesa WIRE STRAIGHTENER, Dafne Mota Ciezraa WIRE STRAIGHTENER, Radha INJECTION, METHYLPREDNISOLONE SODIUM SUCCINATE, UP TO [...] BLD CNT, COMPL CBC W/AUTO DIFF WBC (60186) Indication: Benign essential hypertension Other and unspecified hyperlipidemia : DISCONTINUED - LIPID PANEL (80115) Indication: Other and unspecified hyperlipidemia Hypothyroidism : DISCONTINUED - TSH (73466) Indication: Hypothyroidism Other and unspecified hyperlipidemia : DISCONTINUED - LIPID PANEL (15284) Indication: Other and unspecified hyperlipidemia DIABETES MELLITUS WITHOUT MENTION OF COMPLICATION; TYPE II OR UNSPECIFIED TYPE, NOT STATED UNCONTROLLED : DISCONTINUED - MICROALBUMIN: CREATININE RATIO (70145) AND (90949) Indication: DIABETES MELLITUS WITHOUT MENTION OF COMPLICATION; TYPE II OR UNSPECIFIED TYPE, NOT STATED UNCONTROLLED DIABETES MELLITUS WITHOUT MENTION OF COMPLICATION; TYPE II OR UNSPECIFIED TYPE, NOT STATED UNCONTROLLED : DISCONTINUED - METABOLIC PANEL, COMPREHENSIVE (34098) Indication: DIABETES MELLITUS WITHOUT MENTION OF COMPLICATION; TYPE II OR UNSPECIFIED TYPE, NOT STATED UNCONTROLLED DIABETES MELLITUS WITHOUT MENTION OF COMPLICATION; TYPE II OR UNSPECIFIED TYPE, NOT STATED UNCONTROLLED : DISCONTINUED - CBC WITH MANUAL DIFF (67508) Indication: DIABETES MELLITUS WITHOUT MENTION OF COMPLICATION; TYPE II OR UNSPECIFIED TYPE, NOT STATED UNCONTROLLED DIABETES MELLITUS WITHOUT MENTION OF COMPLICATION; TYPE II OR UNSPECIFIED TYPE, NOT STATED UNCONTROLLED : DISCONTINUED - METABOLIC PANEL, COMPREHENSIVE (34239) Indication: DIABETES MELLITUS WITHOUT MENTION OF COMPLICATION; [...] mellitus, uncontrolled : DISCONTINUED - LIPID PANEL (06975) Indication: Type 2 or unspecified type diabetes [...] ,supplemental vitamins and low salt diet. The vt dical issues the patient is following up [...] for Flu like symptoms: Son diagnosed with [id number] Diagnosis: BRONCHITIS, NOT SPECIFIED ACUTE OR CHRONIC [...] he wants her to do exercise at [facility] and has her set up for activiity [...] : (180's). Note for Follow up for director digital ayana medical issues: she is seeing Sibilia [...] dchild) ,depression in the past ,difficulty sleeping ,cardiology nurse awakening ,episodes of spontaneous crying ,excessive sweating [...] Payers MedicareMedical Mutual of OhioImani Vinson; alcon guarantor"
--- OUTSIDE RECORDS SUMMARY | 2018-09-20 12:02 | XMS RPT_ITS | Continuity of Care Document ---
:1950 Author Organization [facility] Address [address] [place] [address] Phone Care Team Providers Name Role Phone Dafne Jaime CNP Unavailable Juan Catherine Unavailable Rogelio Granado Unavailable Lindsey Cheek Unavailable Unavailable Slarb IT TECHNICAL SPECIALISTGloria Unavailable Unavailable Yuval Rodas Unavailable Unavailable ROLLY [...] Ordered:31-Dec-2017 Addison DOUGHERTY Dafne Monterroso LADONNA Dafne Moat Start : 31-Dec-2017 Active HydroCHLOROthiazide 12.5 MG [...] Quantity: 120 {Tablet} Refills: 3 Ordered:24-Mar-2017 Curtisa EPIC ANALYST, Dafne Lewa EPIC ANALYST, Radha Start : 24-Mar-2017 End : 24-Mar-2017 Inactive Atenolol 50 MG Oral Tablet 1 (one) Tablet one in am, 2 in pm for 90 days Quantity: 180 {Tablet} Refills: 3 Ordered:24-Mar-2017 Ciezraa EPIC ANALYST, [facility] Start : 24-Mar-2017 End : [...] Inactive Comments: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, 10MG (Oral Tablet) 1 tab [...] : 09-Dec-2017 End : 19-Jan-2018 Inactive [place] 31G X 6 MM Miscellaneous uad Misc [...] Quantity: 20 {Tablet} Refills: 0 Ordered:19-Aug-2015 Tggreg EPIC ANALYST, Dafne Kriss DOUGHERTY, Radha Start : 19-Aug-2015 [...] for 0 days Refills: 0 Ordered:23-Oct-2008 Yoselin Larsne LPN End : 23-Oct-2008 Inactive TRICOR, 145MG (Oral Tablet) 1 Tablet daily for 0 days Quantity: 90 {Tablet} Refills: 3 Ordered:03-Feb-2012 Alisha Hanks LPN Start : 24-Aug-2011 End : 03-Feb-2012 Inactive VITAMIN D, 34250EELG (Oral Capsule) 1 (one) Capsule q week [...] Alex DO End : 12-Mar-2006 Discontinued Ergocalciferol 98074 UNIT Oral Capsule 1 (one) Capsule Capsule [...] Quantity: 3 {Inhaler} Refills: 2 Ordered:17-Feb-2016 Slarb IT TECHNICAL SPECIALIST, Gloria Start : 11-Feb-2016 End : 17-Feb-2016 Discontinued Flovent HFA 110 MCG/ACT Inhalation Aerosol 2 Puff bid for 90 days Quantity: 30 {QS} Refills: 3 Ordered:17-Feb-2016 Slarb IT TECHNICAL SPECIALIST, Gloria Start : 11-Feb-2016 End : 17-Feb-2016 Discontinued GUAIATUSSIN AC, 100-10MG/5ML (Oral Syrup) 1 Syrup TID prn for 0 days Quantity: 8 {Ounce(s)} Refills: 0 Ordered:18-Mar-2012 Ivanna Maddox Start : 18-Mar-2012 End : 18-Mar-2012 Discontinued Comments:eight ounces Ipratropium-Albuterol 0.5-2.5 (3) MG/3ML Inhalation Solution 1 (one) Solution Solution qid PRN for 0 days Quantity: 90 {QS} Refills: 3 Ordered:13-May-2016 Slarb IT TECHNICAL SPECIALIST, Gloria Start : 13-Feb-2016 End : 13-May-2016 [...] Quantity: 30 {Tablet} Refills: 6 Ordered:31-Dec-2017 Addison EPIC ANALYST, Dafne Monterroso EPIC ANALYST, Dafne Mota Start : 31-Dec-2017 End : [...] Lead Electrocardiogram Result: Comments: See Note; NOTES: [facility] Cardiovascular Services [address] [place] [address] 12 Lead EKG 01/22/18 2044 MR#: [id number] Acct: [id number] Name: IMANI VINSON Lottie p #: [id number] : 1950 67 From: Ramiro Moreno MD [...] Confirmed by Elia UNGER MD, RAMIRO ([id number]), editor managing director RUBI VILLATORO ([id number]) on 01/25/2018 3:09:19 PM Referred By: Confirmed By:RAMIRO MORENO MD 01/25/18 1509 Date Ramiro Moreno MD CC: Dafne Jaime JETTING MACHINE OPERATOR; Tyson Hernandez DO Signed 24-Jan-2018 Emergency Department Summary Result: Comments: See Note; NOTES: [facility] Medical Records Department [address] [place] [address] Emergency Department Summary 01/22/18 2318 MR#: [id number] Acct: [id number] Name: IMANI VINSON Rep #: [id number] : 1950 67 From: Tyson Hernandez DO [...] 2. Hypertension This note was generated with Proterra dictation software. It may contain incorrect words, [...] your Primary Care Provider. Call [facility] ([phone]) or report to the closest Emergency Room. Call 911 if necessary. 01/24/18 0026 <Electronically signed by Tyson Hernandez DO> Date _ Tyson Hernandez DO Cosigner Signature (If Indicated): Date CC: Dafne Jaime JETTING MACHINE OPERATOR 30-Dec-2017 12 Lead Electrocardiogram Result: Comments: See Note; NOTES: [facility] Cardiovascular Services [address] [place] [address] 12 Lead EKG 12/25/17 1326 MR#: [id number] Acct: [id number] Name: IMANI VINSON Lottie leach #: [id number] : 1950 67 From: Ramiro Moreno MD [...] Confirme d by RAMIRO MORENO MD ([id number]), editor managing director RUBI VILLATORO ([id number]) on 12/30/2017 3:06:27 PM Referred By: Yoselin Oconnell Confirmed By:RAMIRO MORENO MD 12/30/17 1506 Date _ Ramiro Moreno MD CC: Dafne Jaime NP; Ivanna Puri MD Signed 25-Dec-2017 Emergency Department Summary Result: Comments: See Note; NOTES: [facility] Medical Records Department [address] [place] [address] Emergency Department Summary 12/25/17 1538 MR#: [id number] Acct: [id number] Name: IMANI VINSON Rep #: [id number] : 1950 67 From: Ivanna Puri MD [...] Cephalgia, improved This note was generated with Proterra dictation software. It may contain inco rrect [...] Primary Ca re Provider. Call [facility] ([phone]) or report to the closest Emergency Room. Call 911 if necessary. 12/25/17 1636 <Electronically signed by Ivanna Puri MD> Date Ivanna Puri MD Cosigner Signature (If Indicated): Date CC: Dafne Addison BRUNNER 25-Dec-2017 Discharge Instruction Result: Comments: See Note; NOTES: [facility] Medical Records Department [address] [place] [address] Discharge Instruction 12/25/17 1542 MR#: [id number] Acct: [id number] Name: IMANI VINSON Rep #: [id number] : 1950 67 From: Ivanna Puri MD [...] your Primary Care Provider. Call [facility] ([phone]) or report to the closest Emergency Room. Call 911 if necessary. 12/25/17 1543 <Electronically signed by Ivanna Puri MD> D ate Ivanna Puri MD Cosigner Signature (If Indicated): Date CC: Dafne Jaime NP 25-Dec-2017 Chest 1 View (Portable) Result: Comments: See Note; NOTES: [facility] Imaging Services [address] [place] [address] Chest 1 View (Portable) MR#: [id number] Acct: [id number] Name: IMANI VINSON Rep #: [id number] : 1950 F 67 From: Walter Corbin MD PCP: Dafne Jaime NP Status: REG ER Study: Chest 1 View (Portable) Date of Exam: 12/25/17 Exam# [id number] Ordering Dr: Ivanna Puri MD STUDY: X-RAY [...] at 14:22 EDT Tel , Service support [phone], RAD/Chest 1 View (Portable) CC: Dafne Jaime NP; Ivanna Puri MD Book Trimmer: Signed 23-Dec-2017 Abdomen/Pelvis without Cont Result: Comments: See Note; NOTES: [facility] Imaging Services [address] [place] [address] Abdomen/Pelvis without Cont MR#: [id number] Acct: [id number] Name: IMANI VINSON Rep #: [id number] : 1950 F 67 From: Leobardo Mckenzie MD PCP: Dafne Jaime NP Status: REG CLI Study: Abdomen/Pelvis without Cont Date of Exam: 12/23/17 Exam# [id number] Ordering Dr: Yoselin Oconnell JETTING MACHINE OPERATOR-C STUDY: CT ABDOMEN AND PELVIS WITHOUT [...] Leobardo Mckenzie MD at 12:50 EDT Tel [phone], Service support , Fax CC: Dafne Jaime NP; MARCO ANTONIO Oconnell Book Trimmer: Signed 12-Feb-2017 Chest without Contrast Result: Comments: See Note; NOTES: [facility] Imaging Services [address] [place] [address] Chest without Contrast MR#: [id number] Acct: [id number] Name: IMANI VINSON Naveen Rep #: [id number] : 1950 F 66 From: Ace Olivia DO PCP: Dafne Jaime Status: REG CLI Study: Chest without Contrast Date of Exam: 02/12/17 Exam# [id number] Ordering Dr: Rogelio Granado MD STUDY: CT [...] Ace Olivia DO at 11:21 EDT Tel [phone], [employer] e support , CC: Dafne Jaime; Rogelio Granado MD Book Trimmer: Signed 19-Jan-2017 Chest PA and Lateral Result: Comments: See Note; NOTES: [facility] Imaging Services [address] [place] [address] Verdana 4d Chest PA and Lateral MR#: [id number] Acct: [id number] Name: IMANI VINSON Rep #: [id number] : 1950 F 66 From: Leobardo Mckenzie MD PCP: Dafne Jaime Status: REG CLI Study: Chest PA and Lateral Date of Exam: 01/19/17 Exam# [id number] Ordering Dr: Rogelio Granado MD UDY: X-RAY [...] Leobardo Mckenzie MD at 12:43 EDT Tel [phone], Service support [phone], CC: Dafne Jaime; Rogelio Granado MD Book Trimmer: Signed 17-Oct-2015 Spirometry (77592) Result: 20-Aug-2015 Chest PA and Lateral Result: Comments: See Note; NOTES: [facility] Imaging Services [address] [place] [address] Verdana 4d Chest PA and Lateral MR#: [id number] Acct: [id number] Name: IMANI FRASER Rep #: [id number] : 1950 F 64 From: Leobardo Mckenzie MD PCP: Jackie Christina DO Status: REG CLI Study: Chest PA and Lateral Date of Exam: 08/20/15 Exam# [id number] Ordering Dr: Dafne Jaime STUDY: X-RAY CHEST [...] Leobardo Mckenzie MD at 13:08 EST Tel [phone], Service support [phone] , RAD/Chest PA and Lateral IMPRESSION: Hyperinflation. No acute abnormality is seen. Electronically Signed: Leobardo Mckenzie MD at 13:08 EST Tel [phone], Service support [phone], CC: Dafne Jaime; Jackie Christina DO Book Trimmer: Signed 06-Jun-2015 Chest PA and Lateral Result: Comments: See Note; NOTES: [facility] Imaging Services [address] [place] [address] Verdana 4d Chest PA and Lateral MR#: [id number] Acct: [id number] Name: IMANI FRASER Rep #: [id number] : 1950 F 64 From: Leobardo Mckenzie MD PCP: Jackie Christina DO Status: REG CLI Study: Chest PA and Lateral Date of Exam: 06/06/15 Exam# [id number] Ordering Dr: Giovani Hutchins STUDY: X-RAY CHEST [...] Leobardo Mckenzie MD at 14:52 EST Tel [phone], Service support [phone], 0056 RAD/Chest PA and Lateral IMPRESSION: Hyp erinflation. Electronically Signed: Leobardo Mckenzie MD at 14:52 EST Tel [phone], Service support [phone], CC: Jackie Hutchins Book Trimmer: Signed 06-Aug-2014 Chest PA and Lateral Result: Comments: See Note; NOTES: [facility] Imaging Services [address] [place] [address] Radiology Report MR#: [id number] Acct: [id number] Name: IMANI VINSON Rep #: [id number] : 1950 F 63 From: Leobardo Mckenzie MD PCP: Jackie Christina DO Status: REG CLI Study: Chest PA and Lateral Date of Exam: 08/06/14 Exam# [id number] Ordering Dr: Dafne Jaime STUDY: X-RAY CHEST [...] Leobardo Mckenzie MD at 13:03 EST Tel [phone], Service support [phone], CC: Dafne Jaime; Jackie Christina DO Book Trimmer: Signed 05-May-2013 Bilat Scrn Digital & CAD Result: Comments: See Note; NOTES: [facility] Imaging Services [address] [place] [address] Breast Imaging Report MR#: [id number] Acct: [id number] Name: IMANI VINSON Rep #: [id number] : 1950 F 62 From: Leobardo Mckenzie MD PCP: Status: PRE CLI Exam# [id number] Ordering Dr: Jackie Christina DO MAMMOGRAPHY - [...] 05, 2013 at 2:48:1 1 PM EST [phone] Electronically Signed GP/GP If you are the referring physician and would like to consult with the radiologist who provided this interpretation, please contact Leobardo thompson M.D. at [phone]. If this radiologist is unavailable, you will be directed to another radiologist to assist. If you are a patient with a question regarding this report, please contact you r referring physician directly. Professional Interpretation Provided By: [employer], Phone , These documents contain legally protected [...] of these documents. CC: Jackie Christina DO Book Trimmer: Signed Immunization Name Dates Details Pneumococcal (2 [...] kg/m2 Body Surface Area Calculated 2.23 m2 95-Xrx-547910:47 Temperature 97.8 f Pulse 68 /min Comments: [...] kg/m2 Body Surface Area Calculated 2.23 m2 14-Cfj-754162:35 Temperature 98.7 f Comments: Method: Oral Pulse [...] Calculated 2.36 m2 Head Circumference 0.00 cm 26-Ylf-334641:00 Pulse 64 /min Comments: Pattern: Regular Respiration [...] Description Value Details :50 HgA1C , Office (04415) HgA1C , Office 6.4 % (Normal) Range: 4.6 - 7.1 :50 Blood Glucose , Office (31771) Blood Glucose , Office 137 (Normal) :51 CALCIFEDIOL (37595) Comments: PATIENT NOT FASTINGPERFORMED BY: [facility] Center[facility]umzfn7342 [facility] [id number] Vitamin D, 25-Hydroxy 35.3 ng/mL (Normal) Range: 30.0-100.0 Comments: Vitamin D deficiency has been defined by the [place] ofMedicine and an Endocrine Society practice guideline as alevel of serum 25-OH vitamin D less than 20 ng/mL (1,2).The Endocrine Society went on to further define vitamin Dinsufficiency as a level between 21 and 29 ng/mL (2).1. IOM ([place] of Medicine). 2010. Dietary reference intakes for calcium and D. [place]: The National Academies Press.2. Eleni MF, Lorne MORTON, Dayron WALTON, et al. Evaluation, treatment, and prevention of vitamin D deficiency: an Endocrine Society clinical practice guideline. JCEM. 2010; 96(7):1911-30. 2-Erh-533538:43 METANEPHRINES - URINE (57118) Comments: PATIENT NOT FASTINGPERFORMED BY: [address] [id number] Metanephrine, U,24hr 120 {ug/24_hr} (Normal) Range: 45-290 Comments: (Hypertensive) >17 years 11 months: 35 - 460 Metanephrine, Ur 60 ug/L (Normal) Normetanephr.,U,24h 404 {ug/24_hr} (Normal) Range: 82-500 Comments: (Hypertensive) >17 years 11 months: 110 - 1050 Normetanephrine, Ur 202 ug/L (Normal) 2-Pdm-909029:43 CATECHOLAMINES TOTAL, URINE Comments: PATIENT NOT FASTINGPERFORMED BY: [address] [id number] Information: [id number] (60130) Dopamine, Ur, 24hr 356 {ug/24_hr} (Normal) Range: 0-510 Dopamine, Urine 178 ug/L (Normal) Norepinephrine,U,24h 78 {ug/24_hr} (Normal) Range: 0-135 Norepinephrine, Ur 39 ug/L (Normal) Epinephrine, U, 24hr 4 {ug/24_hr} (Normal) Range: 0-20 Epinephrine, Urine 2 ug/L (Normal) 2-Poa-609478:43 URINE VMA (05904) Comments: PATIENT NOT FASTINGPERFORMED BY: [address] [id number] VMA, Urine, 24hr 5.0 {mg/24_hr} (Normal) Range: 0.0-7.5 Comments: This test was developed and its performance characteristicsdetermined by [employer]. It has not been cleared or approvedby the Food and Drug Administration. VMA, Urine 2.5 mg/L (Normal) 43-Dzu-827234:44 URINE MEHREEN CULTURE-IDENTIFICATN Comments: PERFORMED BY: [employer] [facility] [id number] Information: SRC:UC (38312) Result 1 MUG (Normal) Comments: Mixed urogenital flora1,000 Colonies/mL Urine Culture,Comprehensive Final report (Normal) 26-Wji-686119:41 Urinalysis, Office (80859) UA - LEUKOCYTE ESTERASE Moderate (Normal) UA - NITRITE Negative (Normal) URINE UROBILINGN SUNNY TIMED Normal mg/dL (Normal) UA - PROTEIN Negative mg/dL (Normal) UA - PH 6.0 (Normal) UA - BLOOD Hemolyzed Trace (Normal) UA - SPECIFIC GRAVITY 1.020 (Normal) UA - KETONES Negative mg/dL (Normal) UA - BILIRUBIN Negative (Normal) UA - GLUCOSE Negative (Normal) 12-Agz-678350:10 CBC & PLATELETS (AUTO) Comments: PATIENT NOT FASTINGPERFORMED BY: [employer]) [facility] [id number] (42176) Platelets 270 {x10E3/uL} (Normal) Range: 150-379 RDW 13.8 % (Normal) Range: 12.3-15.4 MCHC 33.7 g/dL (Normal) Range: 31.5-35.7 MCH 29.7 pg (Normal) Range: 26.6-33.0 MCV 88 fL (Normal) Range: 79-97 Hematocrit 40.1 % (Normal) Range: 34.0-46.6 Hemoglobin 13.5 g/dL (Normal) Range: 11.1-15.9 RBC 4.54 {x10E6/uL} (Normal) Range: 3.77-5.28 WBC 6.8 {x10E3/uL} (Normal) Range: 3.4-10.8 47-Qcu-589865:10 RENAL FUNCTION PANEL (19346) Comments: PATIENT NOT FASTINGPERFORMED BY: [employer] Wpftbr5667 [facility] [id number] Albumin 3.8 g/dL (Normal) Range: 3.6-4.8 Phosphorus [...] 8-27 Glucose 133 mg/dL (Abnormal) Range: 65-99 31-Oih-875491:10 PARATHORMONE (68854) Comments: PATIENT NOT FASTINGPERFORMED BY: [facility] Fjntuy6221 [facility] [id number] PTH, Intact 32 pg/mL (Normal) Range: 15-65 22-Fwd-179010:00 Urinalysis, Complete Comments: How was Urine Obtained? PARK SUPERINTENDENT TO [facility] [address] [place], [place], [address] MUCUS, URINE 0 SEEN {/hpf} (Normal) BACTERIA [...] (Normal) CLARITY Clear (Normal) COLOR Yellow (Normal) 61-Dzq-865078:04 CBC W/Diff, Automated Comments: [facility] [address] [place], [place], [address] PLT EST ADEQUATE (Normal) SMEAR COMMENT SCANNED [...] 4.2-5.4 WBC 9.7 K/mm3 (Normal) Range: 4.4-11.0 71-Gih-143760:04 Comprehensive Metabolic Profil Comments: [facility] [address] [place], [place], [address] GAP 8 (Normal) Range: 5-15 CO2 26.0 [...] A.D.A. criteria.Please note revised GLUCOSE reference range daagmcehb67/02/2018. 64-Vty-884440:04 Lipase Comments: [facility] [address] [facility]. [place], [place], [address] LIPASE 346 U/L (Normal) Range: 73-393 25-Kjp-944624:04 Troponin-I Comments: [facility] [address] [facility] [place], [place], [address] TROPONIN-I < 0.015 ng/mL (Normal) Comments: TROPONIN-I EXPECTED VALUES <0.045 Negative 0.045 - 0.590 Consistent with Cardiac Damage > OR = 0.600 Critical Value Not every elevated troponin is indicative of IL. T hesevalues should be used with clinical judgement in examiningthe patient's clinical picture for diagnosis. To establisha diagnosis of IL versus myocardial injury, there must be ademonstrated rise and/ or fall in the troponin values, inaddition to ischemic symptoms, EKG changes, new regionalwall motion abnormality, and/or angiographical evidence. PLEASE NOTE: REFERENCE RANGES EDITED 11/08/1712-Jan-201821-Ten-934139:27 TSH (THYROID STIMULATING Comments: January 12; PATIENT WAS FASTINGPERFORMED BY: [employer] [facility] [employer]) [facility] [id number] HORMONE) (26895) TSH 1.920 {uIU/mL} (Normal) Range: 0.450-4.500 36-Ase-411145:27 CBC & PLATELETS (AUTO) Comments: after January 12; PATIENT WAS FASTINGPERFORMED BY: kaufDA70 [facility] [id number] Information: [id number] (36707) Platelets 288 {x10E3/uL} (Normal) Range: 150-379 RDW 13.8 % (Normal) Range: 12.3-15.4 MCHC 34.8 g/dL (Normal) Range: 31.5-35.7 MCH 30.8 pg (Normal) Range: 26.6-33.0 MCV 88 fL (Normal) Range: 79-97 Hematocrit 40.2 % (Normal) Range: 34.0-46.6 Hemoglobin 14.0 g/dL (Normal) Range: 11.1-15.9 RBC 4.55 {x10E6/uL} (Normal) Range: 3.77-5.28 WBC 6.2 {x10E3/uL} (Normal) Range: 3.4-10.8 22-Zwl-558946:27 LIPID PANEL (81133) Comments: after January 12; PATIENT WAS FASTINGPERFORMED BY: [employer] [facility] [employer]) [facility] [id number] LDL/HDL Ratio 2.1 {ratio} (Normal) Range: 0.0-3.2 Comments: LDL/HDL Ratio Men Women 1/2 Avg.Risk 1.0 1.5 Av g.Risk 3.6 3.2 2X Avg.Risk 6.2 5.0 3X Avg.Risk 8.0 6.1 LDL Cholesterol Calc 88 mg/dL (Normal) Range: 0-99 VLDL Cholesterol Edgardo 46 mg/dL (Abnormal) Range: 5-40 HDL Cholesterol 42 mg/dL (Normal) Triglycerides 230 mg/dL (Abnormal) Range: 0-149 Cholesterol, Total 176 mg/dL (Normal) Range: 100-199 05-Nvq-773076:27 HGB A1C (99073) Comments: do after January 12; PATIENT WAS FASTINGPERFORMED BY: [facility] Qsvxwz9693 [facility] [id number] Hemoglobin A1c 7.6 % (Abnormal) Range: 4.8-5.6 Comments: . Pre-diabetes: 5.7 - 6.4 Diabetes: >6.4 Glycemic control for adults with diabetes: <7.0 36-Owq-445996:30 Basic Metabolic Profile (BMP) Comments: [facility] [address] [place], [place], [address] GAP 8 (Normal) Range: 5-15 CO2 25.0 [...] A.D.A. criteria.Please note revised GLUCOSE reference range gbagwnqbd57/02/2018. 45-Svh-473531:30 Carboxyhemoglobin Frac (CO) Comments: [facility] [address] [place], [place], [address] COHb 2.1 % (Abnormal) Range: 0.0-1.5 Comments: * NON-SMOKER RANGE 1.6 - 5.0% * LIGHT SMOKER RANGE 5.1 - 9.0% * HEAVY SMOKER RANGE :30 CBC W/Diff, Automated Comments: [facility] [address] [place], [place], [address] Absolute Lymph 0.66 {X10_3/ul} (Abnormal) Range: 0.83-4.51 [...] 4.2-5.4 WBC 12.9 K/mm3 (Abnormal) Range: 4.4-11.0 58-Qfg-342692:30 Lipase Comments: [facility] [address] [place], [place], [address] LIPASE 126 U/L (Normal) Range: 73-393 76-Vsf-353013:30 Liver Profile Comments: [facility] [address] [place], [address] D BILI 0.13 mg/dL (Normal) Range: 0.00-0.30 T BILI 0.50 mg/dL (Normal) Range: 0.20-1.00 ALT 32 U/L (Normal) Range: 13-56 ALK P 154 U/L (Abnormal) Range: 45-117 AST 25 U/L (Normal) Range: 15-37 GLOB 4.2 g/dL (Normal) Range: 2.2-4.2 ALB 3.5 g/dL (Normal) Range: 3.2-5.0 T PROT 7.7 g/dL (Normal) Range: 6.4-8.2 87-Oya-780066:30 Urinalysis, Complete Comments: Order Date: 12/25/17How was Urine Obtained? CLEAN [facility] [address] [place], [address] MUCUS, URINE 0 SEEN {/hpf} [...] (Abnormal) CLARITY Clear (Normal) COLOR Yellow (Normal) 11-Qsp-249470:17 Urinalysis, Office (31048) UA - LEUKOCYTE ESTERASE Negative (Normal) UA - NITRITE Negative (Normal) URINE UROBILINGN SUNNY TIMED Normal mg/dL (Normal) UA - PROTEIN Negative mg/dL (Normal) UA - PH 5.0 (Normal) Comments: 5.5 UA - BLOOD Hemolyzed Trace (Normal) UA - SPECIFIC GRAVITY 1.005 (Normal) UA - KETONES Negative mg/dL (Normal) UA - BILIRUBIN Negative (Normal) UA - GLUCOSE 500 (Abnormal) 77-Zgp-216255:15 URINE MEHREEN CULTURE-SUNNY COL Comments: PATIENT NOT FASTINGPERFORMED BY: [employer] Yrloqd6369 [facility] [id number] Information: SRC: COUNT ([id number]) Result 1 MUG (Normal) Comments: Mixed urogenital flora10,000-25,000 colony forming units per mL Urine Final report (Normal) Culture,Comprehensive 08-Ovy-124586:48 URINE MEHREEN CULTURE-IDENTIFICATN Comments: PATIENT NOT FASTINGPERFORMED BY: [employer] Smhnea5668 [facility] [id number] Information: SRC: ([id number]) Antimicrobial MIHEAD (Normal) Comments: S = Susceptible; [...] mL (Abnormal) Urine Final report Culture,Comprehensive (Abnormal) 54-Xkz-437969:24 Urinalysis, Office (31323) UA - LEUKOCYTE ESTERASE Small (Normal) UA - NITRITE Negative (Normal) URINE UROBILINGN SUNNY TIMED Normal mg/dL (Normal) UA - PROTEIN Trace mg/dL (Normal) UA - PH 6 (Abnormal) UA - BLOOD Hemolyzed Large (Normal) UA - SPECIFIC GRAVITY 1.015 (Normal) UA - KETONES Negative mg/dL (Normal) UA - BILIRUBIN Negative (Normal) UA - GLUCOSE 500 (Abnormal) 63-Bui-349213:33 Blood Glucose , Office (12039) Blood Glucose , Office 159 (Normal) 66-Kdk-719786:33 HgA1C , Office (46536) HgA1C , Office 7.0 % (Normal) Range: 4.6 - 7.1 84-Dww-673812:10 CBC, Platelets & Auto Diff Comments: PATIENT WAS FASTINGPERFORMED BY: [facility] CenterTlfneg6317 [facility] [id number] (36987) Immature Grans (Abs) 0.0 {x10E3/uL} (Normal) Range: [...] 3.77-5.28 WBC 7.0 {x10E3/uL} (Normal) Range: 3.4-10.8 95-Arp-053122:10 HGB A1C (35594) Comments: PATIENT WAS FASTINGPERFORMED BY: [facility]6370 [facility] [id number] Hemoglobin A1c 7.4 % (Abnormal) Range: 4.8-5.6 Comments: . Pre-diabetes: 5.7 - 6.4 Diabetes: >6.4 Glycemic control for adults with diabetes: <7.0 17-Abb-674479:10 LIPID PANEL (82152) Comments: PATIENT WAS FASTINGPERFORMED BY: [facility] [id number] LDL/HDL Ratio 2.4 {ratio} (Normal) Range: 0.0-3.2 Comments: LDL/HDL Ratio Men Women 1/2 Avg.Risk 1.0 1.5 Av g.Risk 3.6 3.2 2X Avg.Risk 6.2 5.0 3X Avg.Risk 8.0 6.1 LDL Cholesterol Calc 107 mg/dL (Abnormal) Range: 0-99 VLDL Cholesterol Edgardo 28 mg/dL (Normal) Range: 5-40 HDL Cholesterol 45 mg/dL (Normal) Triglycerides 138 mg/dL (Normal) Range: 0-149 Cholesterol, Total 180 mg/dL (Normal) Range: 100-199 [id number] Metabolic Panel, Comprehensive Comments: PATIENT WAS FASTINGPERFORMED BY: [facility] [facility] [id number] ([id number]) ALT (SGPT) 15 [iU]/L (Normal) Range: 0-32 [...] 8-27 Glucose 141 mg/dL (Abnormal) Range: 65-99 [id number] MICROALBUMIN: CREATININE RATIO Comments: PATIENT WAS FASTINGPERFORMED BY: TOTEMS (formerly Nitrogram) [facility] [id number] (45131) AND (75883) Alb/Creat Ratio <3.8 {mg/g_creat} (Normal) Range: 0.0-30.0 Albumin, Urine <3.0 ug/mL (Normal) Creatinine, Urine 78.1 mg/dL (Normal) 82-Awt-067570:10 TSH (36488) Comments: PATIENT WAS FASTINGPERFORMED BY: TAKO6370 [facility] [id number] TSH 2.160 {uIU/mL} (Normal) Range: 0.450-4.500 54-Ree-123220:10 URINALYSIS W/O MICRO (83079) Comments: PATIENT WAS FASTINGPERFORMED BY: [employer] (formerly Nitro[employer]) [facility] [id number] Microscopic Examination MICNIP (Normal) Comments: Microscopic not indicated and not performed. Nitrite, Urine Negative (Normal) Urobilinogen,Semi-Qn 0.2 mg/dL (Normal) Range: 0.2-1.0 Bilirubin Negative (Normal) Occult Blood Negative (Normal) Ketones Negative (Normal) Glucose 3+ (Abnormal) Protein Negative (Normal) WBC Esterase Negative (Normal) Appearance Clear (Normal) Urine-Color Yellow (Normal) pH 5.5 (Normal) Range: 5.0-7.5 Specific [place] >=1.030 (Abnormal) Range: 1.005-1.030 41-Lqn-467987:17 HGB A1C (04656) Comments: today; PATIENT NOT FASTINGPERFORMED BY: LabCo Egscvm2389 [facility] [id number] Hemoglobin A1c 7.4 % (Abnormal) Range: 4.8-5.6 Comments: . Pre-diabetes: 5.7 - 6.4 Diabetes: >6.4 Glycemic control for adults with diabetes: <7.0 44-Qjo-463145:14 TSH (THYROID STIMULATING Comments: PATIENT WAS FASTINGPERFORMED BY: [facility] Ftizkf[address] [facility] [place] [id number] HORMONE) (70815) TSH 2.750 {uIU/mL} (Normal) Range: 0.450-4.500 89-Gcp-903303:14 Lipid Panel (04743) Comments: PATIENT WAS FASTINGPERFORMED BY: [facility] Kxqoto3394 [facility] [id number] LDL/HDL Ratio 2.0 {ratio_units} (Normal) Range: 0.0-3.2 Comments: LDL/HDL Ratio Men Women 1/2 Avg.Risk 1.0 1.5 Av g.Risk 3.6 3.2 2X Avg.Risk 6.2 5.0 3X Avg.Risk 8.0 6.1 LDL Cholesterol Calc 96 mg/dL (Normal) Range: 0-99 VLDL Cholesterol Edgardo 22 mg/dL (Normal) Range: 5-40 HDL Cholesterol 49 mg/dL (Normal) Triglycerides 110 mg/dL (Normal) Range: 0-149 Cholesterol, Total 167 mg/dL (Normal) Range: 100-199 53-Bho-355042:14 CALCIFEDIOL (48384) Comments: PATIENT WAS FASTINGPERFORMED BY: [facility] Fijipr2915 [facility] [id number] Vitamin D, 25-Hydroxy 30.7 ng/mL (Normal) Range: 30.0-100.0 Comments: Vitamin D deficiency has been defined by the [place] ofMedicine and an Endocrine Society practice guideline as alevel of serum 25-OH vitamin D less than 20 ng/mL (1,2).The Endocrine Society went on to further define vitamin Dinsufficiency as a level between 21 and 29 ng/mL (2).1. IOM ([place] of Medicine). 2010. Dietary reference intakes for calcium and D. [place]: The National Academies Press.2. Eleni MF, Lorne MORTON, Dayron WALTON, et al. Evaluation, treatment, and prevention of vitamin D deficiency: an Endocrine Society clinical practice guideline. JCEM. 2010; 96(7):1911-30. 69-Fch-890617:14 Metabolic Panel, Comprehensive Comments: PATIENT WAS FASTINGPERFORMED BY: LabCoSt. Lawrence Rehabilitation CenterQfpmeb5993 [facility] [id number] (36743) ALT (SGPT) 11 [iU]/L (Normal) Range: 0-32 [...] Glucose, Serum 150 mg/dL (Abnormal) Range: 65-99 62-Pti-862112:14 HGB A1C (11706) Comments: PATIENT WAS FASTINGPERFORMED BY: [facility]6370 [facility] [id number] Hemoglobin A1c 6.3 % (Abnormal) Range: 4.8-5.6 Comments: . Pre-diabetes: 5.7 - 6.4 Diabetes: >6.4 Glycemic control for adults with diabetes: <7.0; ADDENDA: OV 19-Jan-201712:28 Angiotensin Convert Enzyme Comments: [facility] (refer to report for specific site)refer to report for address and phone number JHONNY [phone] U/L (Normal) Range: 14-82 Comments: Performed at: [address] [id number] Director: Jarrell Collazo PhD, Phone: [phone]; ADDENDA: Dr Granado 20-Mjh-610333:28 Erythrocyte Sed Rate Comments: [facility] Svgnvciara6494 [place], [place], [id number] SED RATE 6 mm/h (Normal) Range: 0-30 53-Nxv-767611:35 CBC, Platelets & Auto Diff Comments: PATIENT NOT FASTINGPERFORMED BY: [address] [id number] (19077) Immature Grans (Abs) 0.0 {x10E3/uL} (Normal) Range: [...] 3.77-5.28 WBC 6.5 {x10E3/uL} (Normal) Range: 3.4-10.8 08-Aia-011705:35 HGB A1C (21533) Comments: PATIENT NOT FASTINGPERFORMED BY: TAKO6370 [facility] [id number] Hemoglobin A1c 6.7 % (Abnormal) Range: 4.8-5.6 Comments: . Pre-diabetes: 5.7 - 6.4 Diabetes: >6.4 Glycemic control for adults with diabetes: <7.0 :35 Metabolic Panel, Basic Comments: PATIENT NOT FASTINGPERFORMED BY: kaufDA70 [facility] [id number] (77013) Calcium, Serum 10.6 mg/dL (Abnormal) Range: 8.7-10.3 [...] Glucose, Serum 85 mg/dL (Normal) Range: 65-99 15-Fga-061641:29 Microscopic Examination Comments: PATIENT WAS FASTINGPERFORMED BY: BlueNote NetworksLovelace Rehabilitation HospitalFosfqz0420 [facility] [id number] Bacteria Few (Normal) Mucus Threads Present (Normal) Cast Type Hyaline casts (Normal) Casts Present {/lpf} (Abnormal) Epithelial Cells (non renal) 0-10 {/hpf} (Normal) Range: 0 - 10 RBC 0-2 {/hpf} (Normal) Range: 0 - 2 WBC 0-5 {/hpf} (Normal) Range: 0 - 5 :29 URINALYSIS (77432) Comments: PATIENT WAS FASTINGPERFORMED BY: InCortaWalter P. [facility]uther [facility] Hospital6370 [facility] [id number] Microscopic Examination See below: (Normal) Comments: Microscopic was indicated and was performed. Nitrite, Urine Negative (Normal) Urobilinogen,Semi-Qn 0.2 mg/dL (Normal) Range: 0.2-1.0 Bilirubin Negative (Normal) Occult Blood Negative (Normal) Ketones Negative (Normal) Glucose Negative (Normal) Protein Trace (Normal) WBC Esterase 1+ (Abnormal) Appearance Clear (Normal) Urine-Color Yellow (Normal) pH 6.0 (Normal) Range: 5.0-7.5 Specific [place] 1.027 (Normal) Range: 1.005-1.030 :29 MICROALBUMIN: CREATININE RATIO Comments: PATIENT WAS FASTINGPERFORMED BY: InCortaWalter P. Reuther Psych[facility] Hospital6370 [facility] [id number] (88448) AND (94357) Microalb/Creat Ratio 11.0 {mg/g_creat} (Normal) Range: 0.0-30.0 Microalbumin, Urine 29.4 ug/mL (Normal) Creatinine, Urine 266.4 mg/dL (Normal) : CALCIFEDIOL (97467) Comments: PATIENT WAS FASTINGPERFORMED BY: [facility]6370 [facility] [id number] Vitamin D, 25-Hydroxy 29.5 ng/mL (Abnormal) Range: 30.0-100.0 Comments: Vitamin D deficiency has been defined by the [place] ofMedicine and an Endocrine Society practice guideline as alevel of serum 25-OH vitamin D less than 20 ng/mL (1,2).The Endocrine Society went on to further define vitamin Dinsufficiency as a level between 21 and 29 ng/mL (2).1. IOM ([place] of Medicine). 2010. Dietary reference intakes for calcium and D. [place]: The National Academies Press.2. Eleni MF, Lorne MORTON, Dayron WALTON, et al. Evaluation, treatment, and prevention of vitamin D deficiency: an Endocrine Society clinical practice guideline. JCEM. 2010; 96(2):2311-30. 29-Syv-060412:29 Lipid Panel (01647) Comments: PATIENT WAS FASTINGPERFORMED BY: Momo NetworksErlanger [facility] Hospital [id number] LDL/HDL Ratio 1.9 {ratio_units} (Normal) Range: 0.0-3.2 [...] Panel, Comprehensive Comments: PATIENT WAS FASTINGPERFORMED BY: kaufDA70 SecureWatersFormerly [facility] [id number] (06846) ALT (SGPT) 14 [iU]/L (Normal) Range: 0-32 [...] Glucose, Serum 77 mg/dL (Normal) Range: 65-99 06-Xrh-900685:29 CBC, Platelets & Auto Diff Comments: PATIENT WAS FASTINGPERFORMED BY: LabCoSt. Lawrence Rehabilitation CenterBnbjlz9058 [facility] [id number] (64125) Immature Grans (Abs) 0.0 {x10E3/uL} (Normal) Range: [...] 6.6 {x10E3/uL} (Normal) Range: 3.4-10.8 :29 TSH (49745) Comments: PATIENT WAS FASTINGPERFORMED BY: [employer] Hrlcvj6416 [facility] [id number] TSH 2.240 {uIU/mL} (Normal) Range: 0.450-4.500 :29 HGB A1C (21606) Comments: PATIENT WAS FASTINGPERFORMED BY: BlueNote NetworksSt. Lawrence Rehabilitation CenterNnvypc[address] [place] [address] [id number] Hemoglobin A1c 6.7 % (Abnormal) Range: 4.8-5.6 Comments: . Pre-diabetes: 5.7 - 6.4 Diabetes: >6.4 Glycemic control for adults with diabetes: <7.0 :23 HGB A1C (42218) Comments: PATIENT NOT FASTINGPERFORMED BY: InCortaWalter P. [facility] Hospital6370 [facility] [id number] Hemoglobin A1c 6.4 % (Abnormal) Range: 4.8-5.6 Comments: . Pre-diabetes: 5.7 - 6.4 Diabetes: >6.4 Glycemic control for adults with diabetes: <7.0 :06 Blood Glucose , Office (17568) Blood Glucose , Office 84 (Normal) : Hemoglobin A1c 6.7 % (Abnormal) Comments: PATIENT NOT FASTINGPERFORMED BY: [facility]6370 [facility] [id number] Information: [id number] 13 Range: 4.8-5.6 Comments: . Pre-diabetes: 5.7 - 6.4 Diabetes: >6.4 Glycemic control for adults with diabetes: <7.0 :13 HgA1C , Office (41477) HgA1C , Office 6.6 % (Normal) Range: 4.6 - 7.1 :07 Blood Glucose , Office (40710) Blood Glucose , Office 97 (Normal) :51 HgA1C , Office (39628) HgA1C , Office 6.9 % (Normal) Range: 4.6 - 7.1 :51 Blood Glucose , Office (80024) Blood Glucose , Office 129 (Normal) 15-Bld-048203:35 Sputum Culture (84024) Comments: PATIENT NOT FASTINGPERFORMED BY: [address] [id number] Information: [id number] Result 1 RRF (Normal) Comments: Routine respiratory marilin Lower Respiratory Culture Final report (Normal) :10 Rapid Flu (90714 x 2) Comments: neg Influenza A Ag neg (Normal) 3-Pby-914130:31 Vitamin D Hydroxy (91920) Comments: PATIENT WAS FASTINGPERFORMED BY: LabWalter P. [facility] Hospital6370 [facility] [id number] Vitamin D, 25-Hydroxy 34.0 ng/mL (Normal) Range: 30.0-100.0 Comments: Vitamin D deficiency has been defined by the [place] ofMedicine and an Endocrine Society practice guideline as alevel of serum 25-OH vitamin D less than 20 ng/mL (1,2).The Endocrine Society went on to further define vitamin Dinsufficiency as a level between 21 and 29 ng/mL (2).1. IOM ([place] of Medicine). 2010. Dietary reference intakes for calcium and D. [place]: The National Academies Press.2. Eleni MF, Lorne MORTON, Dayron WALTON, et al. Evaluation, treatment, and prevention of vitamin D deficiency: an Endocrine Society clinical practice guideline. JCEM. 2010; 96(7):1911-30. :31 Amylase (64608) Comments: PATIENT WAS FASTINGPERFORMED BY: [facility] Bqomjx5855 [facility] [id number] Amylase, Serum 32 U/L (Normal) Range: 31-124 :31 Lipase (92474) Comments: PATIENT WAS FASTINGPERFORMED BY: LabMaeglin Software Xfseqh5840 [facility] [id number] Lipase, Serum 47 U/L (Normal) Range: 0-59 :31 LIPID PANEL (38574) Comments: PATIENT WAS FASTINGPERFORMED BY: LabMaeglin Softwarerp Jdnlmt4141 [facility] [id number] LDL/HDL Ratio 1.7 {ratio_units} (Normal) Range: 0.0-3.2 [...] 155 mg/dL (Normal) Range: 100-199 :31 TSH (31711) Comments: PATIENT WAS FASTINGPERFORMED BY: [facility] Rebweo5406 [facility] [id number] TSH 1.140 {uIU/mL} (Normal) Range: 0.450-4.500 :31 METABOLIC PANEL, Comments: PATIENT WAS FASTINGPERFORMED BY: [facility] Enyfmp1868 Shanita MishraFormerly [facility] [id number] Information: [id number] COMPREHENSIVE (61204) ALT (SGPT) 20 [iU]/L (Normal) Range: 0-32 [...] (Normal) Range: 65-99 :12 HgA1C , Office (36899) HgA1C , Office 6.4 % (Normal) Range: 4.6 - 7.1 :21 HgA1C , Office (35236) HgA1C , Office 6.8 % (Normal) Range: 4.6 - 7.1 :21 Blood Glucose , Office (75532) Blood Glucose , Office 122 (Normal) 18-Wyw-053657:33 CBC W/Diff, Automated Comments: Test performed at:[facility] [address]ql[address] [place] [address] Absolute Lymph 1.21 {X10_3/ul} (Normal) [...] 4.2-5.4 WBC 6.0 K/mm3 (Normal) Range: 4.4-11.0 53-Tfd-263665:33 Comprehensive Metabolic Profil Comments: Test performed at:[facility] Ffgrrxggir[address] [place] [address] GAP 8 (Normal) Range: 5-15 [...] Comments: Please note revised CREATININE reference range ytqlyqtpb47/22/2015. BUN 13 mg/dL (Normal) Range: 7-18 GLU 84 mg/dL (Normal) Range: 70-110 28-Wwp-709750:33 Lipid Profile Comments: Test performed at:[facility] [address] [place], [place] [id number] ; non-emergent till apt VLDL 24 mg/dL [...] 200-240 mg/dL Borderline >240 mg/dL High Risk 59-Vik-930161:33 Microalb:Creat Ratio,Random UR Comments: Test performed at:[facility] Vmyxwnuikr9[address] [place] [address] MALB:CREAT Test not performed {mg/g_CRE} (Normal) MICROALBUMIN,UR < 5.0 mg/L (Normal) UR CREAT 179.00 mg/dL (Normal) 17-Ymb-867727:33 Thyroid Stim Hormone (TSH) Comments: Test performed at:[facility] S[address] [place] [address] TSH 0.84 {uIU/mL} (Normal) Range: 0.358-3.74 25-Rjl-788578:33 Vitamin D,25 Hydroxy Comments: Test performed at:[facility] Koct[address] [place] [address] Vitamin D 25-OH 23.5 ng/mL (Normal) Comments: Vitamin D 25(OH) Status Range Deficiency <20 ng/mL (50nmol/L) Insuffciency 20 - 30 ng/mL (50 - 75 nmol/L) Sufficiency 30 - 100 ng/mL (75 - 250 nmol/L) Toxicity >100 ng/mL (>250 nmol/L) 8-Mhf-485294:34 HgA1C , Office (73697) HgA1C , Office 7.0 % (Normal) Range: 4.6 - 7.1 1-Bnq-496202:00 CBC W/Diff, Automated Comments: Test performed at:[facility] Axgewnegx[address] [place] [address] Absolute Lymph 2.03 {X10_3/ul} (Normal) Range: [...] 4.2-5.4 WBC 9.1 K/mm3 (Normal) Range: 4.4-11.0 4-Acx-799526:00 CK-MB Quantitative and Index Comments: 'TROP' Serial specimen #1, #2, #3, or #4: 1'CKMB' Serial Specimen #1, #2 or #3? 1Test performed at:[facility] [address] [place] [address] CPKMB 1.7 ng/mL (Normal) Range: 0.0-5.0 Comments: CK-MB and RI Interpretation MB Relative Index Non-AMI <or= 5 NA Indeterminate > 5 <or= 4 AMI > 5 > 4 CPK TOTAL 137 U/L (Normal) Range: 26-192 1-Rkd-090308:00 Myoglobin, Serum Comments: Test performed at:[facility] Kpqmtqehhy7916 [facility] [place] [address] Myoglobin, Ser 149 ng/mL (Abnormal) Range: 25-58 Comments: Performed at: [facility] [address] [id number] Director: Jonathan Majano PhD, Phone: [phone] 8-Unh-547253:00 Troponin-I Comments: 'TROP' Serial specimen #1, #2, #3, or #4: 1'CKMB' Serial Specimen #1, #2 or #3? 1Test performed at:[facility] Ajxkicllau[address] [place], [place] [address] TROPONIN-I < 0.02 ng/mL (Normal) Comments: TROPONIN-I EXPECTED VALUES <0.05 NEGATIVE 0.06 - 0.59 AT RISK OF [place] > OR = 0.60 SUGGEST [place] 8-Xhy-559653:46 Rapid Flu (89313 x 2) Influenza A Ag n (Normal) 76-Ptn-117795:30 Culture, Wound Comments: Test performed at:[facility] Kjfvdjrrik[address] [place] [address] CUW See Note (Normal) Comments: Gram StainGram [...] $ 1 S(NF) indicates non-formulary drug at [facility]. Approval by Infectious Disease Specialist required before non-formulary dr gearrd may be ordered and/or dispensed. * CLSI guidelines does not recommend testing of cephalosporins. This interpretation is deduced from Beta- lactam/penicillin results. 11-Qxz-337017:20 WCGLU 81 mg/dL (Normal) Range: 70-110 44-Poc-363889:20 WCLIPID VLDL 34 mg/dL (Normal) Range: 5-40 [...] CHOL 178 mg/dL (Normal) Comments: <200 mg/dL Bzeuwqyml526-368 mg/dL Borderline>240 mg/dL High Risk 6-Eak-425885:50 MUM < 0.80 AU (Normal) Range: 0.00-0.79 Comments: Negative < 0.80Borderline 0.80 - 1.20Positive > 1.20Note: The presence of IgM specific antibody should beinterpreted in conjunction with the patient's clinicalhistory and exposure risk when an acute infection issuspected.Performed at: [facility] Geno [address] [id number] Director: Rafita Cruz MD, Phone: [phone] at: [facility] InCorta[address] [id number] Director: Jj Caballero MD, Phone: [phone] 4-Qnf-260490:50 RUBEOG > 300.0 AU/mL (Normal) Comments: Negative <25.0Equivocal 25.0 - 29.9Positive >29.9Presence of antibodies to Rubeola is presumptive evidenceof immunity except when acute infection is suspected. 5-Oma-828599:50 RUBG > 500.0 {IU/mL} (Normal) Comments: Antibody results Interpretation of Immune Status< 5 IU/ml Presumed Non-immune5 - < 10 IU/ml Equivocal> or = 10 IU/ml Presumed Immune :26 MICROALBUMIN: CREATININE RATIO Comments: PATIENT WAS FASTINGPERFORMED BY: [employer] [id number] (56446) AND (72435) Microalb/Creat Ratio 3.9 {mg/g_creat} (Normal) Range: 0.0-30.0 Creatinine, Urine 177.5 mg/dL (Normal) Range: 15.0-278.0 Microalbumin, Urine 7.0 ug/mL (Normal) Range: 0.0-17.0 :26 CBC WITH MANUAL DIFF Comments: PATIENT WAS FASTINGPERFORMED BY: LabCoSt. Lawrence Rehabilitation CenterYiecwy9828 [facility] [id number] Information: [id number] (37272) Immature Grans (Abs) 0.0 {x10E3/uL} (Normal) Range: [...] COMPREHENSIVE Comments: PATIENT WAS FASTINGPERFORMED BY: LabCoSt. Lawrence Rehabilitation CenterQfpkbv3438 [facility] [id number] (70013) ALT (SGPT) 22 [iU]/L (Normal) Range: 0-32 [...] (Abnormal) Range: 65-99 01-Nov-20139:26 Vitamin D Hydroxy (66802) Comments: PATIENT WAS FASTINGPERFORMED BY: [facility]6370 [facility] [id number] Vitamin D, 25-Hydroxy 32.9 ng/mL (Normal) Range: 30.0-100.0 Comments: Vitamin D deficiency has been defined by the [place] ofMedicine and an Endocrine Society practice guideline as alevel of serum 25-OH vitamin D less than 20 ng/mL (1,2).The Endocrine Society went on to further define vitamin Dinsufficiency as a level between 21 and 29 ng/mL (2).1. IOM ([place] of Medicine). 2010. Dietary reference intakes for calcium and D. [place]: The National Academies Press.2. Eleni CRAVEN, Lorne [place], Dayron WALTON, et al. Evaluation, treatment, and prevention of vitamin D deficiency: an Endocrine Society clinical practice guideline. JCEM. 2010; 96(7):1911-30. :26 LIPID PANEL (20773) Comments: PATIENT WAS FASTINGPERFORMED BY: Ahandyhand Vssefl9444 giddyErlanger [facility] Hospital [id number] LDL/HDL Ratio 1.6 {ratio_units} (Normal) Range: 0.0-3.2 LDL Cholesterol Calc 74 mg/dL (Normal) Range: 0-99 HDL Cholesterol 46 mg/dL (Normal) Comments: According to ATP-III Guidelines, HDL-C >59 mg/dL is considered anegative risk factor for CHD. VLDL Cholesterol Edgardo 22 mg/dL (Normal) Range: 5-40 Triglycerides 112 mg/dL (Normal) Range: 0-149 Cholesterol, Total 142 mg/dL (Normal) Range: 100-199 :26 TSH (73509) Comments: PATIENT WAS FASTINGPERFORMED BY: [employer] Nofwry5376 giddyErlanger [facility] Hospital [id number] TSH 1.560 {uIU/mL} (Normal) Range: 0.450-4.500 9-Zux-544474:02 HgA1C , Office (87189) HgA1C , Office 6.6 % (Normal) Range: 4.6 - 7.1 :41 HgA1C , Office (06747) HgA1C , Office 6.4 % (Normal) Range: 4.6 - 7.1 39-Asx-341447:30 Microscopic Examination Comments: PATIENT WAS FASTINGPERFORMED BY: [employer] Spaqlq4200 [facility] [id number] Bacteria Few (Normal) Mucus Threads Present (Normal) Epithelial Cells (non renal) 0-10 {/hpf} (Normal) Range: 0 - 10 RBC 0-3 {/hpf} (Normal) Range: 0 - 3 WBC 0-5 {/hpf} (Normal) Range: 0 - 5 :30 LIPID PANEL (12583) Comments: PATIENT WAS FASTINGPERFORMED BY: BlueNote NetworksSt. Lawrence Rehabilitation CenterYinuwq7737 [facility] [id number] LDL/HDL Ratio 2.3 {ratio_units} (Normal) Range: 0.0-3.2 LDL Cholesterol Calc 103 mg/dL (Abnormal) Range: 0-99 VLDL Cholesterol Edgardo 30 mg/dL (Normal) Range: 5-40 HDL Cholesterol 45 mg/dL (Normal) Comments: According to ATP-III Guidelines, HDL-C >59 mg/dL is considered anegative risk factor for CHD. Cholesterol, Total 178 mg/dL (Normal) Range: 100-199 Triglycerides 148 mg/dL (Normal) Range: 0-149 15-Rpo-626650:30 Vitamin D Hydroxy (64405) Comments: PATIENT WAS FASTINGPERFORMED BY: [employer] Hqcldu7141 [facility] [id number] Vitamin D, 25-Hydroxy 35.6 ng/mL (Normal) Range: 30.0-100.0 Comments: Vitamin D deficiency has been defined by the [place] ofPromedica Flower Hospitalcine and an Endocrine Society practice guideline as alevel of serum 25-OH vitamin D less than 20 ng/mL (1,2).The Endocrine Society went on to further define vitamin Dinsufficiency as a level between 21 and 29 ng/mL (2).1. IOM ([place] of Medicine). 2010. Dietary reference intakes for calcium and D. [place]: The National Academies Press.2. Eleni MF, Lorne MORTON, Dayron WALTON, et al. Evaluation, treatment, and prevention of vitamin D deficiency: an Endocrine Society clinical practice guideline. JCEM. 2010; 96(7):1911-30. 89-Bnn-377027:30 URINALYSIS, W/ MICRO (69460) Comments: PATIENT WAS FASTINGPERFORMED BY: LabCo Ahlahj9509 [facility] [id number] Microscopic Examination See below: (Normal) Nitrite, Urine Negative (Normal) Bilirubin Negative (Normal) Urobilinogen,Semi-Qn 0.2 mg/dL (Normal) Range: 0.0-1.9 Occult Blood Negative (Normal) Ketones Negative (Normal) Glucose Negative (Normal) Protein Negative (Normal) WBC Esterase 1+ (Abnormal) Appearance Clear (Normal) Urine-Color Yellow (Normal) pH 5.5 (Normal) Range: 5.0-7.5 Specific [place] 1.017 (Normal) Range: 1.005-1.030 :30 CBC WITH MANUAL DIFF Comments: PATIENT WAS FASTINGPERFORMED BY: LabWalter P. [facility] Hospital6370 [facility] [id number] Information: [id number] (82655) Immature Grans (Abs) 0.0 {x10E3/uL} (Normal) Range: [...] 3.77-5.28 WBC 6.2 {x10E3/uL} (Normal) Range: 3.4-10.8 17-Mqx-569502:30 METABOLIC PANEL, COMPREHENSIVE Comments: PATIENT WAS FASTINGPERFORMED BY: CB [facility] Vckxsr0266 Shanita MishraEcu Health North Hospitalandres [place] [id number] (16980) ALT (SGPT) 23 [iU]/L (Normal) Range: 0-32 [...] (Abnormal) Range: 65-99 :35 HgA1C , Office (06383) HgA1C , Office 6.6 % (Normal) Range: 4.6 - 7.1 35-Zlc-654529:41 Thin prep Pap (80185) Comments: Source.............VaginalNo. of containers..01 CYTYC Thin Prep VialPATIENT NOT FASTINGPERFORMED BY: [facility] [address] [facility]iscoates[facility] DAWNA [id number] Information: [id number] Pathologist provided ICD9: SPRCS (Normal) Comments: 627.3The [...] of hysterectomy.V72.31 ; Routine gynecological examinationGris Moreau Twister Tender Paper (ASCP) :36 VITAMIN B-12 (CYANOCOBALAMIN) Comments: PATIENT WAS FASTINGPERFORMED BY: [place] [id number] (07096) Vitamin B12 628 pg/mL (Normal) Range: 211-946 :36 LIPID PANEL (50751) Comments: PATIENT WAS FASTINGPERFORMED BY: [place] [id number] LDL/HDL Ratio 2.2 {ratio_units} (Normal) Range: 0.0-3.2 LDL Cholesterol Calc 87 mg/dL (Normal) Range: 0-99 VLDL Cholesterol Edgardo 27 mg/dL (Normal) Range: 5-40 HDL Cholesterol 39 mg/dL (Abnormal) Comments: According to ATP-III Guidelines, HDL-C >59 mg/dL is considered anegative risk factor for CHD. Cholesterol, Total 153 mg/dL (Normal) Range: 100-199 Triglycerides 137 mg/dL (Normal) Range: 0-149 :36 Vitamin D Hydroxy (69263) Comments: PATIENT WAS FASTINGPERFORMED BY: [employer] NetworksP[employer] [place] [id number] Vitamin D, 25-Hydroxy 31.1 ng/mL (Normal) Range: 30.0-100.0 Comments: Vitamin D deficiency has been defined by the [place] ofMedicine and an Endocrine Society practice guideline as alevel of serum 25-OH vitamin D less than 20 ng/mL (1,2).The Endocrine Society went on to further define vitamin Dinsufficiency as a level between 21 and 29 ng/mL (2).1. IOM ([place] of Medicine). 2010. Dietary reference intakes for calcium and D. [place]: The National Academies Press.2. Eleni MF, Lorne MORTON, Dayron WALTON, et al. Evaluation, treatment, and prevention of vitamin D deficiency: an Endocrine Society clinical practice guideline. JCEM. 2010; 96(7):1911-30. :36 TSH (36352) Comments: PATIENT WAS FASTINGPERFORMED BY: [employer] Kcepqe8822 giddyblin [place] [id number] TSH 1.510 {uIU/mL} (Normal) Range: 0.450-4.500 :36 MICROALBUMIN: CREATININE RATIO Comments: PATIENT WAS FASTINGPERFORMED BY: [employer] [facility] Htoang1969 [place] [id number] (65235) AND (93257) Creatinine, Urine 212.6 mg/dL (Normal) Range: 15.0-278.0 Microalb/Creat Ratio 2.1 {mg/g_creat} (Normal) Range: 0.0-30.0 Microalbumin, Urine 4.5 ug/mL (Normal) Range: 0.0-17.0 :36 METABOLIC PANEL, Comments: PATIENT WAS FASTINGPERFORMED BY: [employer] [facility] Ulyyrx1535 [place] [id number] Information: [id number] COMPREHENSIVE (26795) ALT (SGPT) 23 [iU]/L (Normal) Range: 0-32 [...] Glucose, Serum 160 mg/dL (Abnormal) Range: 65-99 29-Jfo-20239:34 BILAT SCRN DIGITAL & CAD Radiology Report [...] Mckenzie M.D.April 12, 2012 at 10:58:16 AM [id number] Signed GP/GP If you are the referring physician and would like to consult w [facility] theradiologist who provided this interpretation, please contact Sudha Pritchett at [phone]. If this radiologist is unavailable, youwill be directed to another radiologist to assist. If you are a patient with a question regarding this report, pleasecontactyour referring physician directly. Professional Interpretation Provided By: [employer], Phone , These documents contain legally protected [...] 04/12/12 1103 Sign by: Leobardo Mckenzie MD 85-Rub-36493:34 DEXA BONE DENSITY STUDY (HP) Radiology Report [...] Mckenzie M.D.April 12 2 at 12:31:08 PM [id number] Signed GP/GP If you are the referring physician and would like to consult with theradiologist who provided this interpretation, please contact Rashard thompson M.D. at [phone]. If this radiologist is unavailable, youwill be directed to another radiologist to assist. If you are a patient with a question regarding this report, pleasecontactyour refer ring physician directly. Professional Interpretation Provided By: [employer], Phone , These documents contain legally protected [...] 04/12/12 1235 Sign by: Leobardo Mckenzie MD 4-Jzy-101957:25 HPV automatic Comments: Source.............Cervical;EndocervicalNo. of containers..01 CYTYC Thin Prep VialPATIENT NOT FASTINGPERFORMED BY: WB [facility] [address] [place] [id number] BY: =G L (08185) [facility] Gdgtpsrzbd605 [facility] [place] [id number] Information: [id number] HPV, high-risk Negative Comments: This high-risk HPV [...] history of hysterectomy.V72.31 ; Routine gynecological examinationJennifer [place], Twister Tender Paper (ASCP) :37 Hemoglobin Glyclated (HGB A1C) Comments: PATIENT WAS FASTINGPERFORMED BY: [facility]Wal[facility] [id number] (25752) Hemoglobin A1c 7.1 % (Abnormal) Range: 4.8-5.6 Comments: . Increased risk for diabetes: 5.7 - 6.4 Diabetes: >6.4 Glycemic control for adults with diabetes: <7.0 :37 TSH (55764) Comments: PATIENT WAS FASTINGPERFORMED BY: LabCo Dgudzo1683 [facility] [id number] TSH 1.790 {uIU/mL} (Normal) Range: 0.450-4.500 :37 CBC WITH MANUAL DIFF Comments: PATIENT WAS FASTINGPERFORMED BY: [facility]Wal[facility] [id number] Information: [id number] (12577) Immature Grans (Abs) 0.0 {x10E3/uL} (Normal) Range: [...] CREATININE RATIO Comments: PATIENT WAS FASTINGPERFORMED BY: Momo NetworksErlanger [facility] Hospital [id number] (68462) AND (90735) Microalb/Creat Ratio 0.8 {mg/g_creat} (Normal) Range: 0.0-30.0 Microalbumin, Urine 1.4 ug/mL (Normal) Range: 0.0-17.0 Creatinine, Urine 183.1 mg/dL (Normal) Range: 15.0-278.0 :37 LIPID PANEL (01837) Comments: PATIENT WAS FASTINGPERFORMED BY: [employer] [facility] [id number] LDL/HDL Ratio 1.4 {ratio_units} (Normal) Range: 0.0-3.2 [...] PANEL, COMPREHENSIVE Comments: PATIENT WAS FASTINGPERFORMED BY: [employer]S (formerly [employer]) Diehl MyTwinPlaceFormerly [facility] [id number] (15297) ALT (SGPT) 26 [iU]/L (Normal) Range: 0-40 [...] Glucose, Serum 145 mg/dL (Abnormal) Range: 65-99 00-Pbj-30068:37 Vitamin D Hydroxy (10611) Comments: PATIENT WAS FASTINGPERFORMED BY: [facility]6[address] [facility] [id number] Vitamin D, 25-Hydroxy 42.1 ng/mL (Normal) Range: 30.0-100.0 Comments: Vitamin D deficiency has been defined by the [place] ofMedicine and an Endocrine Society practice guideline as alevel of serum 25-OH vitamin D less than 20 ng/mL (1,2).The Endocrine Society went on to further define vitamin Dinsufficiency as a level between 21 and 29 ng/mL (2).1. IOM ([place] of Medicine). 2010. Dietary reference intakes for calcium and D. [place]: The National Academies Press.2. Eleni MF, Lorne [place], Dayron WALTON, et al. Evaluation, treatment, and prevention of vitamin D deficiency: an Endocrine Society clinical practice guideline. JCEM. 2010; 96(7):1911-30. 92-Afv-30343:37 VITAMIN B-12 (CYANOCOBALAMIN) Comments: PATIENT WAS FASTINGPERFORMED BY: [facility]Wal[facility] [id number] (81534) Vitamin B12 1841 pg/mL (Abnormal) Range: 211-946 21-Mdi-953654:56 CHEST WITH CONTRAST Radiology Report See Note [...] Signed:Marva HunterFebruary 11, 2012 at 3:53:06 PM [id number] Signed MV/MV If you are the referring [...] on 02/11/121611 Sign by: JACKIE SIERRA MD 22-Zdo-004644:22 CRE GFRAA 95 mL/min (Normal) GFR 78 mL/min (Normal) CREAT 0.8 mg/dL (Normal) Range: 0.6-1.0 :42 MICROALBUMIN: CREATININE RATIO Comments: PATIENT WAS FASTINGPERFORMED BY: Ahandyhand Bewndl1363 [facility]iddyErl[facility] [id number] (31778) AND (13082) Creatinine, Urine 87.6 mg/dL (Normal) Range: 15.0-278.0 Microalb/Creat Ratio 1.1 {mg/g_creat} (Normal) Range: 0.0-30.0 Microalbumin, Urine 1.0 ug/mL (Normal) Range: 0.0-17.0 :42 VITAMIN B-12 (CYANOCOBALAMIN) Comments: PATIENT WAS FASTINGPERFORMED BY: kaufDA70 giddyErlanger [facility] [id number] (61838) Vitamin B12 1740 pg/mL (Abnormal) Range: 211-946 :42 CBC WITH MANUAL DIFF Comments: PATIENT WAS FASTINGPERFORMED BY: kaufDA70 giddyErlanger [facility] Hospital [id number] Information: [id number] (73720) Immature Grans (Abs) 0.0 {x10E3/uL} (Normal) Range: [...] 3.77-5.28 WBC 5.5 {x10E3/uL} (Normal) Range: 4.0-10.5 31-Fsu-75810:42 Vitamin D Hydroxy (27163) Comments: PATIENT WAS FASTINGPERFORMED BY: LabCoSt. Lawrence Rehabilitation CenterSeihnr9605 [facility] [id number] Vitamin D, 25-Hydroxy 32.2 ng/mL (Normal) Range: 30.0-100.0 Comments: Vitamin D deficiency has been defined by the [place] ofMedicine and an Endocrine Society practice guideline as alevel of serum 25-OH vitamin D less than 20 ng/mL (1,2).The Endocrine Society went on to further define vitamin Dinsufficiency as a level between 21 and 29 ng/mL (2).1. IOM ([place] of Medicine). 2010. Dietary reference intakes for calcium and D. [place]: The National AcademCourtagen Life Sciences Press.2. Eleni MF, Lorne MORTON, Dayron WALTON, et al. Evaluation, treatment, and prevention of vitamin D deficiency: an Endocrine Society clinical practice guideline. JCEM. 2010; 96(7):1911-30. :42 LIPID PANEL (90921) Comments: PATIENT WAS FASTINGPERFORMED BY: kaufDA70 [facility] [id number] LDL/HDL Ratio 2.2 {ratio_units} (Normal) Range: 0.0-3.2 [...] PANEL, COMPREHENSIVE Comments: PATIENT WAS FASTINGPERFORMED BY: TAKO6370 [facility] [id number] (35595) ALT (SGPT) 20 [iU]/L (Normal) Range: 0-32 [...] Glucose, Serum 148 mg/dL (Abnormal) Range: 65-99 82-Yhn-83695:42 TSH (02947) Comments: PATIENT WAS FASTINGPERFORMED BY: [employer] [facility] [id number] TSH 2.140 {uIU/mL} (Normal) Range: 0.450-4.500 0-Sqv-391182:41 Urinalysis, Office (88689) UA - BILIRUBIN Negative (Normal) UA - BLOOD Negative (Normal) UA - GLUCOSE Negative (Normal) UA - KETONES Negative mg/dL (Normal) UA - LEUKOCYTE ESTERASE Negative (Normal) UA - NITRITE Negative (Normal) UA - PH 8.5 (Normal) UA - PROTEIN 30 mg/dL (Normal) UA - SPECIFIC GRAVITY 1.020 (Normal) URINE UROBILINGN SUNNY TIMED Normal mg/dL (Normal) 01-Ytv-540363:08 CULTURE, SPUTUM (22800) Comments: PATIENT NOT FASTINGPERFORMED BY: [employer] LabMaeglin SoftwareLovelace Rehabilitation HospitalYozuap3073 [facility] [id number] Information: SRC:SPT ADD [id number] Result 1 RRF (Normal) Comments: Routine respiratory [...] {uIU/mL} (Normal) Range: 0.358-3.74 :24 VIT D,25 93252 37.4 ng/mL (Normal) Range: 30.0-100.0 Comments: Vitamin D deficiency has been defined by the [place] ofPromedica Flower Hospitalcine and an Endocrine Society practice guideline as alevel of serum 25-OH vitamin D less than 20 ng/mL (1,2).The Endocrine Society went on to further define vitamin Dinsufficiency as a level between 21 and 29 ng/mL (2).1. IOM ([place] of Medicine). 2011. Dietary reference intakes for calcium and D. [place]: The National Academies Press.2. Eleni CRAVEN, Lorne MORTON, Dayron WALTON, et al. Evaluation, treatment, and prevention of vitamin D deficiency: an Endocrine Society clinical practice guideline. JCEM. 2010; 96(7): 1911-30.Performed at: [address], [place], [place] [address]Per Director: Leigh Palomo MD, Phone: [phone] 9-Tlg-450620:43 Blood Glucose , Office (44961) Blood Glucose , Office 141 (Normal) 57-Apn-83838:08 BILAT SCRN DIGITAL & CAD Radiology Report [...] 04/07/11 1032 Sign by: Leobardo Mckenzie MD 54-Tid-421454:03 Rapid Strep Test, Office (28644) Comments: neg Rapid Strep Test, Office Negative (Normal) 45-Tod-605747:48 MEHREEN CULTURE-OTHER (10370) Comments: PATIENT NOT FASTINGPERFORMED BY: [facility] Zxxabf5137 [facility] [id number] Information: SRC:THRT [id number] Result 1 RRF (Normal) Comments: Routine respiratory marilin Upper Respiratory Culture Final report (Normal) 89-Doy-695499:37 Rapid Strep Test, Office (66465) Rapid Strep Test, Office Negative (Normal) 33-Nwz-443926:05 Rapid Flu (82570 x 2) Influenza A Ag negative (Normal) :18 MICROALBUMIN: CREATININE RATIO Comments: PATIENT WAS FASTINGPERFORMED BY: BlueNote NetworksSt. Lawrence Rehabilitation CenterHvnboh8695 [facility] [id number] (73265) AND (60339) Microalb/Creat Ratio 2.4 {mg/g_creat} (Normal) Range: 0.0-30.0 Microalbumin, Urine 4.6 ug/mL (Normal) Range: 0.0-17.0 Creatinine, Urine 189.1 mg/dL (Normal) Range: 15.0-278.0 :18 CBC WITH MANUAL DIFF Comments: PATIENT WAS FASTINGPERFORMED BY: BlueNote NetworksSt. Lawrence Rehabilitation CenterBjwckf4400 [facility] [id number] Information: [id number] (48981) Immature Grans (Abs) 0.0 {x10E3/uL} (Normal) Range: [...] 3.80-5.10 WBC 6.4 {x10E3/uL} (Normal) Range: 4.0-10.5 91-Aeg-76551:18 METABOLIC PANEL, COMPREHENSIVE Comments: PATIENT WAS FASTINGPERFORMED BY: LabWal[facility] P. [facility]6370 [facility] [id number] (42552) ALT (SGPT) 21 [iU]/L (Normal) Range: 0-40 [...] (Abnormal) Range: 65-99 :18 Vitamin D Hydroxy (72907) Comments: PATIENT WAS FASTINGPERFORMED BY: kaufDA70 SecureWatersFormerly [facility] [id number] Vitamin D, 25-Hydroxy 38.2 ng/mL (Normal) Range: 32.0-100.0 Comments: Recent studies consider the lower limit of 32.0 ng/mL to be athreshold for optimal health.Tom SOLIS. J Nutr. 2004;135(2):317-22. :18 LIPID PANEL (93041) Comments: PATIENT WAS FASTINGPERFORMED BY: TAKO6370 giddyErlanger [facility] [id number] LDL Cholesterol Calc 69 mg/dL (Normal) Range: 0-99 LDL/HDL Ratio 1.7 {ratio_units} (Normal) Range: 0.0-3.2 HDL Cholesterol 40 mg/dL (Normal) Comments: According to ATP-III Guidelines, HDL-C >59 mg/dL is considered anegative risk factor for CHD. VLDL Cholesterol Edgardo 37 mg/dL (Normal) Range: 5-40 Cholesterol, Total 146 mg/dL (Normal) Range: 100-199 Triglycerides 184 mg/dL (Abnormal) Range: 0-149 :18 TSH (06295) Comments: PATIENT WAS FASTINGPERFORMED BY: TAKO6370 [facility] [id number] TSH 1.380 {uIU/mL} (Normal) Range: 0.450-4.500 :58 HgA1C , Office (96677) HgA1C , Office 6.4 % (Normal) Range: 4.6 - 7.1 :58 Blood Glucose , Office (01888) Blood Glucose , Office 146 (Normal) 08-Qcd-580625:43 L/S SPINE,MIN 4 VIEWS (MT) Radiology Report See Note (Normal) Comments: Exam Number: [id number] CLINICAL:The patient is a 59-year-old woman with [...] ESTElectronically Signed PM/PM As part of our [employer] Consultant Program, we request that surgical orpathologic correlation, or any additional supportive or discordantmedical history, laboratory or imaging studies be forwarded [facility], attention: Peer ReviewCoordinator. , , [address] [facility] [facility], [address] [place] [address]. Reported By: CHASTITY RETANA M.D. 56-Plo-709137:28 Urinalysis, Office (99245) UA - BILIRUBIN Negative (Normal) UA - BLOOD Negative (Normal) UA - GLUCOSE Negative (Normal) UA - KETONES Negative mg/dL (Normal) UA - LEUKOCYTE ESTERASE Negative (Normal) UA - NITRITE Negative (Normal) UA - PH 6.0 (Normal) UA - PROTEIN Negative mg/dL (Normal) UA - SPECIFIC GRAVITY 1.025 (Normal) URINE UROBILINGN SUNNY TIMED 2 mg/dL (Normal) 32-Cac-556348:46 Thin prep Pap (34615) Comments: Source.............VaginalLMP / Prev Treat...HystNo. of containers..01 CYTYC Thin Prep VialPERFORMED BY: LabCo Lcursbnnwi539 [place] [facility]jer[facility] DAWNA [id number] Information: [id number] Note: PAPSMR (Normal) Comments: The Pap smear [...] history of hysterectomy.V72.31 ; Routine gynecological exami [facility] Luis, Tw[employer] Tender Paper (ASCP) 01-Lup-239340:06 Vitamin D Hydroxy (69800) Comments: PATIENT WAS FASTINGPERFORMED BY: [employer] Btxush9942 [facility] [id number] Vitamin D, 25-Hydroxy 26.5 ng/mL (Abnormal) Range: 32.0-100.0 Comments: Recent studies consider the lower limit of 32.0 ng/mL to be athreshold for optimal health.Tom SOLIS. J Nutr. 2004;135(2):317-22. 25-Cen-591438:06 LIPID PANEL (15069) Comments: PATIENT WAS FASTINGPERFORMED BY: LabMaeglin Software Uoilng2475 [facility] CenterLookletErlanger [facility] [id number] LDL Cholesterol Calc 57 mg/dL (Normal) Range: 0-99 LDL/HDL Ratio 1.4 {ratio_units} (Normal) Range: 0.0-3.2 VLDL Cholesterol Edgardo 32 mg/dL (Normal) Range: 5-40 HDL Cholesterol 41 mg/dL (Normal) Comments: According to ATP-III Guidelines, HDL-C >59 mg/dL is considered anegative risk factor for CHD. Triglycerides 162 mg/dL (Abnormal) Range: 0-149 Cholesterol, Total 130 mg/dL (Normal) Range: 100-199 10-Bra-037131:06 METABOLIC PANEL, Comments: PATIENT WAS FASTINGPERFORMED BY: TARAS [facility] Uvgdsp0684 [facility] [id number] Information: ADD [id number] AND DRAW FEE 99 6660 COMPREHENSIVE (45824) ALT (SGPT) 23 [iU]/L (Normal) Range: 0-40 [...] (Abnormal) Range: 65-99 :20 HgA1C , Office (16518) HgA1C , Office 6.8 % (Normal) Range: 4.6 - 7.1 :20 Blood Glucose , Office (81816) Blood Glucose , Office 129 (Normal) 63-Vke-320881:38 Rapid Strep Test, Office (86119) Rapid Strep Test, Office Negative (Normal) :09 HgA1C , Office (15287) HgA1C , Office 6.9 % (Normal) Range: 4.6 - 7.1 :09 Blood Glucose , Office (24632) Blood Glucose , Office 127 (Normal) :14 METABOLIC PANEL, COMPREHENSIVE Comments: PATIENT WAS FASTINGPERFORMED BY: LabCoSt. Lawrence Rehabilitation CenterUcbutt5560 [facility] [id number] (65970) Alkaline Phosphatase, S 60 [iU]/L (Normal) Range: [...] Glucose, Serum 141 mg/dL (Abnormal) Range: 65-99 76-Ltf-84593:14 CBC WITH MANUAL DIFF Comments: PATIENT WAS FASTINGPERFORMED BY: LabWalter P. [facility]uther [facility] Hospital6370 [facility] [id number] Information: [id number] (66996) Baso (Absolute) 0.0 {x10E3/uL} (Normal) Range: 0.0-0.2 [...] URINE QUANT Comments: PATIENT WAS FASTINGPERFORMED BY: BlueNote NetworksSt. Lawrence Rehabilitation CenterDbylsz4294 [facility] [id number] (98264) Microalb/Creat Ratio <.8 {mg/g_creat} (Normal) Range: 0.0-30.0 Microalbumin, Urine <1.0 ug/mL (Normal) Range: 0.0-17.0 Creatinine, Urine 124.3 mg/dL (Normal) Range: 15.0-278.0 :14 TSH (32627) Comments: PATIENT WAS FASTINGPERFORMED BY: [employer] Nknnrr6181 [facility] [id number] TSH 2.150 {uIU/mL} (Normal) Range: 0.450-4.500 Comments: Effective July 22, 2009, TSH reference interval for11 - 19 years will be changing to: 0.450 - 4.500 uIU/mLReference interval for all other ages will NOT be affected. :14 Vitamin D Hydroxy (95833) Comments: PATIENT WAS FASTINGPERFORMED BY: BlueNote NetworksSt. Lawrence Rehabilitation CenterCpesyn5076 [facility] [id number] Vitamin D, 25-Hydroxy 26.6 ng/mL (Abnormal) Range: 32.0-100.0 Comments: Recent studies consider the lower limit of 32.0 ng/mL to be athreshold for optimal health.Tom SOLIS. J Nutr. 2004;135(2):317-22. :14 LIPID PANEL (73086) Comments: PATIENT WAS FASTINGPERFORMED BY: BlueNote NetworksSt. Lawrence Rehabilitation CenterRfcgez4064 [facility] [id number] HDL Cholesterol 42 mg/dL (Normal) Comments: According to ATP-III Guidelines, HDL-C >59 mg/dL is considered anegative risk factor for CHD. LDL Cholesterol Calc 100 mg/dL (Abnormal) Range: 0-99 LDL/HDL Ratio 2.4 {ratio_units} (Normal) Range: 0.0-3.2 Triglycerides 172 mg/dL (Abnormal) Range: 0-149 VLDL Cholesterol Edgardo 34 mg/dL (Normal) Range: 5-40 Cholesterol, Total 176 mg/dL (Normal) Range: 100-199 :07 HgA1C , Office (99616) HgA1C , Office 6.1 % (Normal) Range: 4.6 - 7.1 :07 Blood Glucose , Office (62118) Blood Glucose , Office 232 (Normal) 65-Rnj-28143:25 Lower Respiratory Culture Comments: Clinical Information: SRC:SP PERFORMED BY: Ahandyhand Jlcibl9301 [facility] [id number] Lower Respiratory Culture Final report (Normal) Result 1 RRF (Normal) Comments: Routine respiratory marilin 93-Inl-625528:00 Influenza A, H1N1, RT PCR Comments: Clinical Information: SRC:NL PERFORMED BY: ShopVisiblelin6370 [facility] [id number] Subtype Novel H1N1 by Negative (Normal) PCR Type Influenza A by Negative (Normal) PCR Viral Final report Comments: PERFORMED BY: ShopVisible[address] [id number] Culture,Rapid,Influen (Normal) Comments: Negative:No Influenza A or B detected. 31-Yjh-956216:29 CHEST, PA AND LATERAL (MT) Radiology Report See Note (Normal) Comments: Exam Number: [id number] CLINICAL:58-year-old woman with cough and shortness of [...] cardiopulmonary process. Reported By: ROSEMARIE ROBBINS M.D. 15-Bba-437467:45 Rapid Strep Test, Office (55481) Comments: done Rapid Strep Test, Office Negative (Normal) 66-Dcp-527966:32 Rapid Flu (01939 x 2) Comments: done INFLUENZA IMMUNOASSY negative (Normal) DIRECT OPTICAL OBSERV 04-Apr-20090:00 FLU A+B DIRECT See Note (Normal) Comments: Negative test results should be confirmed by culture. Order Rapid Viral Culture for Influenzae A+B (570794) if clinically indicated. INFLUENZA ANTIGEN,DIRECT Presumptive NEGATIVE for Influenza A/B Antigen (See Note) 99-Afk-570294:04 METABOLIC PANEL, COMPREHENSIVE Comments: PATIENT WAS FASTINGPERFORMED BY: LabCoSt. Lawrence Rehabilitation CenterPkqcju6241 [facility] [id number] (58292) A/G Ratio 1.6 (Normal) Range: 1.1-2.5 Albumin, [...] Sodium, Serum 141 mmol/L (Normal) Range: 135-145 26-Ajp-583676:04 MICROALBUMIN: CREATININE RATIO Comments: PATIENT WAS FASTINGPERFORMED BY: T[employer]EMS (formerly [employer]) DiehliwocaFormerly [facility] [id number] (35349) AND (76318) Creatinine, Urine 124.0 mg/dL (Normal) Range: 15.0-278.0 Microalb/Creat Ratio 1.5 {ug/mg_creat} (Normal) Range: 0.0-30.0 Microalbumin, Urine 1.9 ug/mL (Normal) Range: 0.0-17.0 :04 LIPID PANEL (91202) Comments: PATIENT WAS FASTINGPERFORMED BY: [employer] (formerly [employer]) [facility] [id number] Cholesterol, Total 155 mg/dL (Normal) Range: 100-199 HDL Cholesterol 44 mg/dL (Normal) Comments: According to ATP-III Guidelines, HDL-C >59 mg/dL is considered anegative risk factor for CHD. LDL Cholesterol Calc 89 mg/dL (Normal) Range: 0-99 LDL/HDL Ratio 2.0 {ratio_units} (Normal) Range: 0.0-3.2 Triglycerides 109 mg/dL (Normal) Range: 0-149 VLDL Cholesterol Edgardo 22 mg/dL (Normal) Range: 5-40 :04 Vitamin D Hydroxy (37964) Comments: PATIENT WAS FASTINGPERFORMED BY: Ahandyhand Bumqvi3987 [facility] [id number] Vitamin D, 25-Hydroxy 24.9 ng/mL (Abnormal) Range: 32.0-100.0 Comments: Recent studies consider the lower limit of 32.0 ng/mL to be athreshold for optimal health.Tom SOLIS. J Nutr. 2004;135(2):317-22. :04 C-REACTIVE PROTEIN (72342) Comments: PATIENT WAS FASTINGPERFORMED BY: TARAS SolarReserve6370 [facility] [id number] C-Reactive Protein, Quant 4.4 mg/L (Normal) Range: 0.0-4.9 :04 CBC WITH MANUAL DIFF (65316) Comments: PATIENT WAS FASTINGClinical Information: ADD DRAW FEE 343735 ADD J 39755 PERFORMED BY: [employer] Sbjhvv7903 [facility] [id number] Baso (Absolute) 0.1 {x10E3/uL} (Normal) Range: 0.0-0.2 [...] 11.7-15.0 WBC 5.0 {x10E3/uL} (Normal) Range: 4.0-10.5 47-Kfu-304225:04 TSH (28495) Comments: PATIENT WAS FASTINGPERFORMED BY: [employer] Mobile70 [facility] [id number] TSH 1.151 {uIU/mL} (Normal) Range: 0.450-4.500 94-Jwd-297831:00 HgA1C , Office (42996) HgA1C , Office 6.2 % (Normal) Range: 4.6 - 7.1 31-Czl-476497:00 Blood Glucose , Office (68403) Blood Glucose , Office 132 (Normal) 71-Eij-453877:39 ABDOMEN WITH IV CONTRAST Radiology Report See Note (Normal) Comments: Exam Number: [id number] CT ABDOMEN WITH CONTRAST CLINICAL STATEMENTRight upper [...] anincidental adenoma. Reported By: EDILIA WHEELER M.D. 22-Vuh-881772:38 CHEST WITH CONTRAST Radiology Report See Note (Normal) Comments: Exam Number: [id number] CT OF THE CHEST WITH CONTRAST. STATEMENTCough, [...] Comments: LIVER FUNCTION: PLEASE CALL DR CHEN, CASH ANALYST FOR DR FUENTES 46 Range: 25-115 03-Bxq-875714: C-REACTIVE PROT 13.74 mg/L (Abnormal) Comments: LIVER FUNCTION: PLEASE CALL DR CHEN CASH ANALYST FOR DR FUENTES 46 Range: 0.0-6.0 Comments: Test performed using the Dimension C-Reactive ProteinExtended Range assay method. This assay meets the AHA/CDC 2003 recommendations fordetermining patients at high risk for cardiovasculardisease. Reference: High risk CRP >3.0 mg/L 17-Hqk-062230:46 CBCD,SMEAR DIFF BAND 1 % (Normal) Range: [...] 47-70 WBC 5.6 K/mm3 (Normal) Range: 4.4-11.0 35-Fnl-355225:46 COMP METABOLIC Comments: LIVER FUNCTION: PLEASE CALL DR CHEN, CASH ANALYST FOR DR CHRISTINA. A/G 1.2 {RATIO} (Normal) [...] 170RAD ARGUELLES.REPORT READ BACK BY SAME . 81-Snv-235986:46 ESR SED RATE 29 mm/h (Normal) Range: 0-30 :46 LIPASE 239 U/L (Normal) Comments: LIVER FUNCTION: PLEASE CALL DR CHEN, CASH ANALYST FOR DR CHRISTINA. Range: 114-286 55-Tzl-752218:12 HgA1C , Office (72197) HgA1C , Office 6.1 % (Normal) Range: 4.6 - 7.1 47-Wtl-992776:12 Blood Glucose , Office (99922) Blood Glucose , Office 116 (Normal) 91-Krk-754898:48 Urine Culture,Comprehensive Comments: Clinical Information: SRC:UR PERFORMED BY: BlueNote NetworksSt. Lawrence Rehabilitation CenterUnngak8671 [facility] [id number] Result 1 MUG (Normal) Comments: Mixed urogenital zgirp244 Colonies/mL Urine Culture,Comprehensive Final report (Normal) 85-Sya-867372:31 L/S SPINE,MIN 4 VIEWS (MT) Radiology Report See Note (Normal) Comments: Exam Number: [id number] LUMBAR SPINE, 5 VIEWS CLINICAL STATEMENTFollow up bone density study, question compression of L5. COMPARISONBone Dexatometry May 03, 2008. 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 Vertebral body height andalignment appears maintained. Multilevel mild degenerative discchanges are present throughout the lumbar spine with end plateosteophyte formation present. There is mini mal concavity of the F0rrgwuuvw end plate likely secondary to degenerative change [...] position orspasm. Reported By: EDILIA WHEELER M.D. 67-Xzu-80875:59 METABOLIC PANEL, COMPREHENSIVE Comments: PATIENT WAS FASTINGPERFORMED BY: InCortaWalter P. [facility]uther [facility] Hospital6370 [facility] [id number] (04336) A/G Ratio 1.4 (Normal) Range: 1.1-2.5 Albumin, [...] Total 3.0 g/dL (Normal) Range: 1.5-4.5 If -British >59 mL/min/1.73 Comments: Note: Persistent reduction for [...] Glucose, Serum 136 mg/dL (Abnormal) Range: 65-99 48-Adk-12273:59 CBC WITH MANUAL DIFF (96524) Comments: PATIENT WAS FASTINGClinical Information: ADD DRAW FEE [id number] ADD J [id number] PERFORMED BY: Lab[address] [id number] Baso (Absolute) 0.0 {x10E3/uL} (Normal) Range: 0.0-0.2 [...] FUNCTION PANEL Comments: PATIENT WAS FASTINGPERFORMED BY: BlueNote NetworksSt. Lawrence Rehabilitation CenterOpfdyq9928 [facility] [id number] (72139) Bilirubin, Direct 0.09 mg/dL (Normal) Range: 0.00-0.40 :59 LIPID PANEL (97834) Comments: PATIENT WAS FASTINGPERFORMED BY: BlueNote NetworksSt. Lawrence Rehabilitation CenterIwkrfr8035 [facility] [id number] Cholesterol, Total 156 mg/dL (Normal) Range: 100-199 HDL Cholesterol 43 mg/dL (Normal) Comments: According to ATP-III Guidelines, HDL-C >59 mg/dL is considered anegative risk factor for CHD. LDL Cholesterol Calc 77 mg/dL (Normal) Range: 0-99 LDL/HDL Ratio 1.8 {ratio_units} (Normal) Range: 0.0-3.2 Triglycerides 180 mg/dL (Abnormal) Range: 0-149 VLDL Cholesterol Edgardo 36 mg/dL (Normal) Range: 5-40 61-Lyj-275517:27 Urinalysis, Office (92940) UA - BILIRUBIN Negative (Normal) UA - [...] Report See Note (Normal) Comments: Exam Number: [id number] BONE DENSITOMETRY HISTORYOsteopenia. TECHNIQUE Bone densitometry of [...] Report See Note (Normal) Comments: Exam Number: [id number] ULTRASOUND OF ABDOMINAL AORTA HISTORYFamily history of [...] in size. Reported By: CHASTITY RETANA M.D. 76-Hlk-084787:06 URINE MEHREEN CULTURE-SUNNY COL Comments: PATIENT NOT FASTINGClinical Information: SRC:UR ADD [id number] PERFORMED BY: [employer] Dihel MyTwinPlaceFormerly [facility] [id number] COUNT ([id number]) Result 1 Proteus mirabilis Comments: 2,000 Colonies/mL [...] STrimethoprim/Sulfa S Urine Final report (Normal) Culture,Comprehensive 61-Plq-30239:19 HEPATIC FUNCTION PANEL Comments: PATIENT WAS FASTINGClinical Information: ADD DRAW FEE [id number] ADD J [id number] PERFORMED BY: [employer] MyTwinPlaceFormerly [facility] [id number] ([id number]) Albumin, Serum 4.0 g/dL (Normal) Range: 3.5-5.5 Alkaline Phosphatase, S 91 [iU]/L (Normal) Range: 25-150 ALT (SGPT) 18 [iU]/L (Normal) Range: 0-40 AST (SGOT) 21 [iU]/L (Normal) Range: 0-40 Bilirubin, Direct 0.11 mg/dL (Normal) Range: 0.00-0.40 Bilirubin, Total 0.4 mg/dL (Normal) Range: 0.1-1.2 Protein, Total, Serum 6.8 g/dL (Normal) Range: 6.0-8.5 :19 LIPID PANEL (76232) Comments: PATIENT WAS FASTINGPERFORMED BY: LabCoSt. Lawrence Rehabilitation CenterIgkvsu8202 [facility] [id number] Cholesterol, Total 159 mg/dL (Normal) Range: 100-199 HDL Cholesterol 41 mg/dL (Normal) Range: 40-59 Comments: EFFECTIVE APRIL 30, 2008 the reference interval for HDL-C will be changing to: >39 mg/dL LDL Cholesterol Calc 80 mg/dL (Normal) Range: 0-99 LDL/HDL Ratio 2.0 {ratio_units} (Normal) Range: 0.0-3.2 Triglycerides 192 mg/dL (Abnormal) Range: 0-149 VLDL Cholesterol Edgardo 38 mg/dL (Normal) Range: 5-40 37-Ett-487519:08 Urinalysis, Office (88663) Comments: done km UA - BILIRUBIN Negative (Normal) UA - BLOOD Negative (Normal) UA - GLUCOSE Negative (Normal) UA - KETONES Negative mg/dL (Normal) UA - LEUKOCYTE ESTERASE Small (Normal) UA - NITRITE Negative (Normal) UA - PH 6.0 (Normal) UA - PROTEIN Negative mg/dL (Normal) UA - SPECIFIC GRAVITY 1.015 (Normal) URINE UROBILINGN SUNNY TIMED Normal mg/dL (Normal) :25 HgA1C , Office (45558) HgA1C , Office 5.7 % (Normal) Range: 4.6 - 7.1 :25 Blood Glucose , Office (49445) Blood Glucose , Office 127 (Normal) 99-Yjv-325257:47 UNILAT LT DIAG DIGITAL & CAD Radiology Report See Note (Normal) Comments: Exam Number: [id number] MAMMOGRAM, UNILATERAL LEFT DIAGNOSTIC DIGITAL AND CAD [...] mammograms werealso examined with computer-aided detection software ([employer] Reported By: CHASTITY RETANA M.D. 18-Ppu-38664:10 [facility] DIGITAL & CAD Radiology Report See Note (Normal) Comments: Exam Number: [id number] MAMMOGRAM, BILATERAL SCREENING DIGITAL AND CAD HISTORYRoutine [...] mammograms werealso examined with computer-aided detection software ([employer] Reported By: CHASTITY RETANA M.D. :36 HgA1C , Office (17330) HgA1C , Office 7.4 % (Abnormal) Range: 4.6 - 7.1 :36 Blood Glucose , Office (89980) Blood Glucose , Office 168 (Normal) :15 [...] Range: 5-40 :15 MICROALBUMIN,UR 6.7 mg/L (Normal) 00-Jri-774931:15 TSH 1.71 {uIU/mL} (Normal) Range: 0.34-4.82 :46 CBC WITH MANUAL DIFF (15029) Comments: PATIENT NOT FASTINGClinical Information: ADD [id number] ADD [id number] PERFORMED BY: [facility]Wal[facility]6370 [facility] [id number] Baso (Absolute) 0.0 {x10E3/uL} (Normal) Range: 0.0-0.2 [...] Report See Note (Normal) Comments: Exam Number: [id number] MYOCARDIAL PERFUSION SCAN TECHNIQUEThe patient was injected [...] FLOR WEI M.D. :44 HgA1C , Office (79106) HgA1C , Office 7.2 % (Abnormal) Range: 4.6 - 7.1 :44 Blood Glucose , Office (01202) Blood Glucose , Office 141 (Normal) :48 HgA1C , Office (39165) HgA1C , Office 7.3 % (Abnormal) Range: 4.6 - 7.1 :47 Blood Glucose , Office (05875) Blood Glucose , Office 148 (Normal) :12 [...] :12 TSH 1.61 {uIU/mL} (Normal) Range: 0.34-4.82 23-Wes-749432:10 CBCD,SMEAR DIFF BASOPHIL 1 % (Normal) Range: [...] Range: 4.4-11.0 :46 Blood Glucose , Office (23641) Blood Glucose , Office 163 (Normal) :24 HgA1C , Office (81152) HgA1C , Office 6.6 % (Normal) Range: 4.6 - 7.1 :24 Blood Glucose , Office (33295) Blood Glucose , Office low (Normal) :09 HgA1C , Office (57297) Comments: done HgA1C , Office 6.5 % (Normal) Range: 4.6 - 7.1 :09 Blood Glucose , Office (08544) Comments: done Blood Glucose , Office 161 [...] (Normal) Range: 0.34-4.82 :05 HgA1C , Office (63164) HgA1C , Office 7.2 % (Abnormal) Range: 4.6 - 7.1 04-Xco-329444:05 Blood Glucose , Office (78607) Blood Glucose , Office 114 (Normal) :35 [...] Report See Note (Normal) Comments: Exam Number: [id number] CHEST, PA AND LATERAL HISTORYShortness of breath. FINDINGSCardiac configuration is normal. There is mild overinflation of thelungs. No acute infiltrate, effusion, or pneumothora x is identified. IMPRESSIONNo acute changes noted in the lungs. Reported By: FLOR CHOWDHURY M.D. 16-Qrx-560196:59 CHEST, PA AND LATERAL Radiology Report See Note (Normal) Comments: Exam Number: [id number] PA AND LATERAL CHEST HISTORY Being done [...] infiltrate identified. Reported By: FLOR CHOWDHURY M.D. 15-Evn-142169:59 JHONNY 27546 59 U/L (Normal) Range: - Comments: Performed At: [address] [id number] 60-Izw-658235:06 JHONNY [address] 61 U/L (Normal) Range: -09-Jul-200610:06 REBECCA-D 761480 REBECCA-DIRECT 31 U/mL (Normal) Range: 0-99 Comments: Negative <100 Equivocal 100 - 120 Positive >120 94-Zbj-625224:06 C-REACTIVE PROT 7.75 mg/L (Abnormal) Range: 0.0-6.0 Comments: Test performed using the Dimension C-Reactive ProteinExtended Range assay method. This assay meets the AHA/CDC 2003 recommendations fordetermining patients at high risk for cardiovasculardisease. Reference: High risk CRP >3.0 mg/L 71-Mod-713338:06 CBCD,SMEAR DIFF CELLS COUNTED 100 (Normal) EOS [...] 47-70 WBC 4.4 K/mm3 (Normal) Range: 4.4-11.0 04-Bbt-598854:06 ESR SED RATE 5 mm/h (Normal) Range: 0-30 46-Wgr-097699:06 HISTOPL 579917 SeeNote (Normal) Comments: Result: Negative Performed At: [facility] [address] [place], [place] [id number] At: [facility] [address] [id number] :06 LDH 170 U/L (Normal) Range: 100-190 67-Jgn-764222:06 RA LATEX 6502 4.4 {IU/mL} (Normal) Range: [...] methodology of Hgb A1C has changed to Gates BehringDimension RXL. No significant changes in patientresults [...] (Normal) Range: 0.34-4.82 :31 HgA1C , Office (09495) HgA1C , Office 7.9 % (Abnormal) Range: 4.6 - 7.1 :31 Blood Glucose , Office (35484) Blood Glucose , Office 302 (Normal) Plan [...] Make follow up apt with Silas and Ethnographic Materials ConservatorMaximino on September 23 between 2-4 Indication: Acute [...] Wheezing Cough : Follow up tomorrow with [facility] Indication: Cough Unspecified asthma with (acute) [...] Indication: Acute sinusitis Planned Observations Lipid Panel (78897)Indication: Diabetes mellitus type II, controlled, with no complications (Renamed from Controlled type 2 diabetes mellitus without complication) On: :31 Request MICROALBUMIN: CREATININE RATIO (72327) AND (24231)Indication: Diabetes mellitus type II, controlled, with no complications (Renamed from Controlled type 2 diabetes mellitus without complication) On: :30 Request TSH (42042)Indication: Diabetes mellitus type II, controlled, with no complications (Renamed from Controlled type 2 diabetes mellitus without complication) On: :30 Request CBC, Platelets & Auto Diff (07340)Indication: Diabetes mellitus type II, controlled, with no complications (Renamed from Controlled type 2 diabetes mellitus without complication) On: :30 Request Metabolic Panel, Comprehensive (45228)Indication: Diabetes mellitus type II, controlled, with no complications (Renamed from Controlled type 2 diabetes mellitus without complication) On: 7-Zzk-462071:30 Request GLUCOSE (40451)Indication: Hypoglycemia On: 28-Fsf-947393:48 Request Cortisol,Urinary Free 24- Hour Urine (72103)Indication: Adrenal adenoma, right On: 50-Yym-828751:54 Request Catecholamines,24-Hour Urine (98993)Indication: Adrenal adenoma, right On: 73-Ara-665921:54 Request DHEA (DEHYDROEPIANDROSTERONE) (85980)Indication: Adrenal adenoma, right On: 99-Rlr-227116:51 Request METABOLIC PANEL, COMPREHENSIVE (06226)Indication: Adrenal adenoma, right On: 54-Nwl-440311:51 Request LIPID PANEL (67613)Indication: Hypercholesteremia On: 48-Efi-54223:23 Request HGB A1C (68801)Indication: Diabetes mellitus type II, controlled, with no complications (Renamed from Controlled type 2 diabetes mellitus without complication) On: 31-Kxp-686470:00 Request Comments: Jun 2016 1 week before apt METABOLIC PANEL, COMPREHENSIVE (18746)Indication: Hypercalcemia On: 56-Euj-028917:03 Request GLUCOSE (79406)Indication: Type 2 or unspecified type diabetes mellitus, uncontrolled On: 76-Zaj-407263:00 Request METABOLIC PANEL, COMPREHENSIVE (13511)Indication: Type 2 or unspecified type diabetes mellitus, uncontrolled On: 70-Yjk-148301:28 Request CALCIFEDIOL (43782)Indication: Vitamin D deficiency, unspecified On: :27 Request URINALYSIS, W/ MICRO (08139)Indication: Type 2 or unspecified type diabetes mellitus, uncontrolled On: 19-Qxb-842171:18 Request MICROALBUMIN: CREATININE RATIO (22996) AND (06255)Indication: Type 2 or unspecified type diabetes mellitus, uncontrolled On: 10-Qvi-337524:18 Request TSH (49877)Indication: Type 2 or unspecified type diabetes mellitus, uncontrolled On: 14-Slj-317380:18 Request Lipid Panel (53722)Indication: Type 2 or unspecified type diabetes mellitus, uncontrolled On: 97-Doh-328481:18 Request Metabolic Panel, Comprehensive (54259)Indication: Type 2 or unspecified type diabetes mellitus, uncontrolled On: 30-Hnr-162971:18 Request HGB A1C (91806)Indication: Type 2 or unspecified type diabetes mellitus, uncontrolled On: 80-Pwe-131499:14 Request Comments: 6.6 CBC W/AUTO DIFF WBC (20154)Indication: Hypertension On: :07 Request METABOLIC PANEL, COMPREHENSIVE (82592)Indication: Hypertension On: :07 Request Vitamin D Hydroxy (31992)Indication: Vitamin D deficiency, unspecified On: 92-Odd-380535:07 Request LIPID PANEL (23612)Indication: Other and unspecified hyperlipidemia On: :07 Request Vitamin D Hydroxy (67642)Indication: Vitamin D deficiency, unspecified On: :15 Request CBC with auto diff (46305)Indication: Hypertension On: :14 Request TSH (14010)Indication: Hypothyroidism On: :14 Request MICROALBUMIN: CREATININE RATIO (04826) AND (49262)Indication: Type 2 or unspecified type diabetes mellitus, uncontrolled On: :14 Request METABOLIC PANEL, COMPREHENSIVE (50841)Indication: Hypertension On: :14 Request LIPID PANEL (65656)Indication: Other and unspecified hyperlipidemia On: :13 Request MYOGLOBIN (99203)Indication: Chest pain On: :52 Request CPK MB FRACTION (91999)Indication: Chest pain On: :52 Request ASSAY, TROPONIN, QUANTITATIVE (aka Troponin I) (92159)Indication: Chest pain On: :52 Request CBC WITH MANUAL DIFF (05494)Indication: Acute exacerbation of COPD with asthma On: 06-Aug-20149:52 Request CALCIFEDIOL (13586)Indication: Depression On: 38-Drd-865716:50 Request Lipid Panel (41766)Indication: Other and unspecified hyperlipidemia On: 54-Omh-361287:50 Request TSH (65914)Indication: Hypothyroidism On: 49-Ltn-365891:49 Request URINALYSIS (93179)Indication: Hypertension On: 14-Fbc-070032:49 Request CBC WITH MANUAL DIFF (87386)Indication: Hypertension On: 45-Ghf-479264:49 Request Metabolic Panel, Comprehensive (86999)Indication: Hypertension On: 25-Bzu-619226:49 Request CBC (AUTO) (98279)Indication: Hypercalcemia On: 9-Ykc-087175:06 Request UPEP (78612)Indication: Hypercalcemia On: 7-Hqm-515419:06 Request SPEP (83146)Indication: Hypercalcemia On: 2-Lux-244499:06 Request SED RATE ERYTHROCYTE (35840)Indication: Hypercalcemia On: 7-Pbf-509003:06 Request CALCIUM SERUM (46352)Indication: Hypercalcemia On: 0-Zeh-777275:05 Request PARATHORMONE (75176)Indication: Hypercalcemia On: 1-Vvu-884920:05 Request FECAL OCCULT HGB ASSAY- tubes sent home (65888)Indication: Well woman exam with routine gynecological exam On: 35-Pzb-922170:54 Request HgA1C , Office (53151)Indication: Type 2 or unspecified type diabetes mellitus, uncontrolled On: 88-Jkb-854412:45 Request CBC WITH MANUAL DIFF (93896)Indication: Osteopenia On: 14-Goc-631209:23 Request Vitamin D Hydroxy (42097)Indication: Vitamin D deficiency, unspecified On: 26-Qzd-228555:22 Request TSH (44544)Indication: Hypothyroidism On: :22 Request METABOLIC PANEL, COMPREHENSIVE (18032)Indication: Sarcoidosis On: :21 Request Thin prep Pap (41609)Indication: Well woman exam with routine gynecological exam On: 5-Gpj-807144:16 Request FECAL OCCULT HGB ASSAY- tubes sent home (95981)Indication: Well woman exam with routine gynecological exam On: 7-Kdd-555353:16 Request METABOLIC PANEL, COMPREHENSIVE (34025)Indication: Type 2 or unspecified type diabetes mellitus, uncontrolled On: 1-Iwy-109759:14 Request CBC WITH MANUAL DIFF (93583)Indication: Type 2 or unspecified type diabetes mellitus, uncontrolled On: 1-Rfr-396160:14 Request MICROALBUMIN: CREATININE RATIO (45964) AND (14968)Indication: Type 2 or unspecified type diabetes mellitus, uncontrolled On: 7-Zlm-458457:14 Request Vitamin D Hydroxy (71679)Indication: Vitamin D deficiency, unspecified On: 4-Xkm-277106:14 Request METABOLIC PANEL, COMPREHENSIVE (63467)Indication: Benign essential hypertension On: 7-Mjd-966348:14 Request TSH (43709)Indication: Hypothyroidism On: 1-Kwf-019192:14 Request LIPID PANEL (13448)Indication: Other and unspecified hyperlipidemia On: 6-Xnv-886530:14 Request HgA1C , Office (87543)Indication: Type 2 or unspecified type diabetes mellitus, uncontrolled On: 4-Sxn-929685:43 Request CBC WITH MANUAL DIFF (70963)Indication: Benign essential hypertension On: 9-Qyf-563278:22 Request METABOLIC PANEL, COMPREHENSIVE (77499)Indication: Benign essential hypertension On: 2-Xrf-866364:22 Request LIPID PANEL (53564)Indication: Other and unspecified hyperlipidemia On: 9-Bhk-627496:22 Request MEHREEN CULTURE-OTHER (16122)Indication: Pharyngitis, acute On: 89-Mft-067377:38 Request LIPID PANEL (20432)Indication: Other and unspecified hyperlipidemia On: :40 Request CBC WITH MANUAL DIFF (94388)Indication: DIABETES MELLITUS WITHOUT MENTION OF COMPLICATION; TYPE II OR UNSPECIFIED TYPE, NOT STATED UNCONTROLLED On: :40 Request METABOLIC PANEL, COMPREHENSIVE (04011)Indication: DIABETES MELLITUS WITHOUT MENTION OF COMPLICATION; TYPE II OR UNSPECIFIED TYPE, NOT STATED UNCONTROLLED On: 42-Ieb-148183:40 Request Vitamin D Hydroxy (22857)Indication: Vitamin D deficiency, unspecified On: :38 Request CULTURE, SPUTUM (18515)Indication: Flu On: 73-Srf-492558:45 Request nasal influenza swab (12458) P3Uvsnqzreoi: Cough On: 1-Omt-969725:00 Request Rapid Flu (94359 x 2)Indication: Cough On: 1-Euc-380080:53 Request HEPATIC FUNCTION PANEL (96225)Indication: Other and unspecified hyperlipidemia On: 50-Lqe-39991:42 Request LIPID PANEL (44317)Indication: Other and unspecified hyperlipidemia On: :42 Request Vitamin D Hydroxy (94272)Indication: Vitamin D deficiency, unspecified On: :41 Request Lipase (55419)Indication: Nausea On: 01-Fpb-762775:41 Request Amylase (95041)Indication: Nausea On: 35-Zcg-396384:41 Request C-REACTIVE PROTEIN (46192)Indication: SOB (shortness of breath) on exertion On: :39 Request SED RATE ERYTHROCYTE (47056)Indication: SOB (shortness of breath) on exertion On: :39 Request METABOLIC PANEL, COMPREHENSIVE (92988)Indication: SOB (shortness of breath) on exertion On: :39 Request CBC WITH MANUAL DIFF (27682)Indication: SOB (shortness of breath) on exertion On: 50-Xoe-470374:39 Request D-Dimer (43962)Indication: SOB (shortness of breath) on exertion On: 90-Uty-562512:39 Request TSH (65303)Indication: Hypothyroidism On: 36-Xxy-774171:41 Request MICROALBUMIN: CREATININE RATIO (08024) AND (02429)Indication: DIABETES MELLITUS WITHOUT MENTION OF COMPLICATION; TYPE II OR UNSPECIFIED TYPE, NOT STATED UNCONTROLLED On: 36-Gto-669523:37 Request HEPATIC FUNCTION PANEL (31391)Indication: Other and unspecified hyperlipidemia On: 30-Euy-797383:37 Request LIPID PANEL (88161)Indication: Other and unspecified hyperlipidemia On: 18-Mpv-653749:37 Request URINE MEHREEN CULTURE-SUNNY COL COUNT (86564)Indication: Urinary frequency On: 69-Vqf-133280:05 Request URINE MEHREEN CULTURE-SUNNY COL COUNT (58092)Indication: Urinary frequency On: 45-Sra-126829:05 Request URINE MEHREEN CULTURE-SUNNY COL COUNT (00801)Indication: Urinary frequency On: 66-Kjj-051194:05 Request URINE MEHREEN CULTURE-SUNNY COL COUNT (65753)Indication: Urinary frequency On: 12-Kgn-194515:05 Request URINE MEHREEN CULTURE-SUNNY COL COUNT (29267)Indication: Urinary frequency On: 88-Lot-511090:05 Request URINE MEHREEN CULTURE-SUNNY COL COUNT (56097)Indication: Urinary frequency On: 73-Xrd-195589:05 Request URINE MEHREEN CULTURE-SUNNY COL COUNT (85886)Indication: Urinary frequency On: 89-Qkv-110061:05 Request MEHREEN CULTURE-OTHER (00317)Indication: Family history of aneurysm On: 23-Tbt-700980:17 Request MICROALBUMIN URINE QUANT (60540)Indication: Type 2 or unspecified type diabetes mellitus, uncontrolled On: 95-Rfz-09357:55 Request METABOLIC PANEL, COMPREHENSIVE (09113)Indication: Hypertension On: :54 Request TSH (04834)Indication: Hypothyroidism On: 77-Zfh-09118:54 Request LIPID PANEL (88950)Indication: Other and unspecified hyperlipidemia On: 57-Eme-15069:53 Request TSH (24933)Indication: Hypothyroidism On: 18-Nyq-574592:49 Request METABOLIC PANEL, COMPREHENSIVE (96296)Indication: DIABETES MELLITUS WITHOUT MENTION OF COMPLICATION; TYPE II OR UNSPECIFIED TYPE, NOT STATED UNCONTROLLED On: 88-Ggq-356630:49 Request LIPID PANEL (94599)Indication: DIABETES MELLITUS WITHOUT MENTION OF COMPLICATION; TYPE II OR UNSPECIFIED TYPE, NOT STATED UNCONTROLLED On: 01-Sov-117307:49 Request CBC WITH MANUAL DIFF (24747)Indication: Anemia On: :49 Request Rapid Strep Test, Office (19392)Indication: Pharyngitis, acute On: 40-Mxk-412962:27 Request Comments: neg HDL Cholesterol-Direct (96150)Indication: Low HDL (under 40) On: 52-Tvh-299042:41 Request Comments: DO IN 3 MO LIPID PANEL (82364)Indication: Other and unspecified hyperlipidemia On: :54 Request URINALYSIS W/O MICRO (40032)Indication: Hypertension On: :54 Request TSH (50908)Indication: Hypothyroidism On: :54 Request METABOLIC PANEL, COMPREHENSIVE (08943)Indication: Hypertension On: :54 Request CBC WITH MANUAL DIFF (05007)Indication: Anemia On: 12-Oae-936250:54 Request TSH (42940)Indication: Hypothyroidism On: :59 Request URINALYSIS W/O MICRO (04189)Indication: Type 2 or unspecified type diabetes mellitus, uncontrolled On: :59 Request CBC WITH MANUAL DIFF (47941)Indication: Type 2 or unspecified type diabetes mellitus, uncontrolled On: :59 Request MICROALBUMIN: CREATININE RATIO (76010) AND (08027)Indication: Type 2 or unspecified type diabetes mellitus, uncontrolled On: :58 Request METABOLIC PANEL, COMPREHENSIVE (77208)Indication: Type 2 or unspecified type diabetes mellitus, uncontrolled On: :58 Request HgA1C , Office (69743)Indication: Abnormal glucose tolerance test On: :35 Request Blood Glucose , Office (23906)Indication: Abnormal glucose tolerance test On: 65-Nvx-423360:35 Request Planned Encounters Medical; [facility] Medicare Physical - On: 17-May-2018 14:30 [facility] CiDafne garza CNP, CNP, Mary E Planned Procedures CT - LDCT CHEST ( WITHOUT CONTRAST On: 02-May-2018 Intent )By: Dafne Jaime CNP, CNP, Mary E PFT - Before and After SpiroBy: On: 02-May-2018 Intent Dafne Jaime CNP, CNP, Mary E SIX MINUTE WALK TEST (81897)By: On: 20-Apr-2018 Intent Visit, Nurse SPIROMETRY PERFORMED (57363)By: On: 20-Apr-2018 Intent Visit, Nurse SPIROMETRY PERFORMED (81004)By: On: 20-Apr-2018 Intent Visit, Nurse INFUSION, NORMAL SALINE SOLUTION , On: 24-Jan-2018 Intent 1000 CC (Special Coverage Comments: lot:[id number]:39-6-0590fwq:IV right anticub dose:1000ml given by:carmen Shay LPN Instructions Apply. See MCM: 2049) (J7030)By: Dafne Jaime CNP, CNP, Mary E IV Needle placement (20616)By: On: 24-Jan-2018 Intent Dafne Jaime CNP, CNP, Mary E Radiology - Lumbar SpineBy: On: 23-Dec-[address] - Abdomen & Pelvis Stone On: 23-Dec-2017 Intent ProtocolBy: Yoselin Oconnell Comments: STAT R/O Kidney stones bilateral COMP EYE EXAMINATION, ESTAB PATIENT On: 09-Dec-2017 Intent (85439)By: Yoselin Oconnell Toradol Injection, 30 mg On: 12-Jul-2017 Intent (J1885)By: Dafne Jaime CNP, CNP, Mary E Toradol Injection, 30 mg On: 07-Apr-2017 Intent (J1885)By: Dafne Jaime CNP, CNP, Mary E Flu Vaccine (Quadrivalent) 25783By: On: 24-Mar-2017 Intent Dafne Jaime CNP, CNP, Mary E Toradol Injection, 30 mg On: 24-Mar-2017 Intent (J1885)By: Dafne Jaime CNP, CNP, Mary E Rocephin Injection, 2 Gram On: 18-Nov-2016 Intent (J0696)By: Dafne Jaime CNP, CNP, Mary E Aerosol Treatment (43955)By: Addison On: 18-Nov-2016 Intent Dafne DOUGHERTY CNP, Mary E Solu -Medrol Injection, 125 mg On: 18-Nov-2016 Intent (J2930)By: Dafne Jaime CNP, CNP, Mary E MAMMOGRAM, SCREENING, BOTH BREAST On: 19-Aug-2016 Intent (29086)By: Dafne Jaime CNP, CNP, Mary E DEXA SCAN AXIAL SKELETON (95216)By: On: 19-Aug-2016 Intent Dafne Jaime CNP, CNP, Mary E GROUP PULMONARY REHABILITATION WITH On: 11-Feb-2016 Intent EXERCISE (83836)By: Dafne Jaime CNP, CNP, Mary E Six Minute Walk Assessment On: 17-Oct-2015 Intent (13753)By: Visit, Nurse PFT - CompleteBy: Vanessa Chen MD On: 24-Sep-2015 Intent M Rocephin Injection, 2 Gram On: 21-Aug-2015 Intent (J0696)By: Dafne Jaime CNP Comments: IV 2 gramsright agfsvjf60 guagetolerated welllot [id number] 02/12as, Dafne SILVA CNP INFUSION, NORMAL SALINE SOLUTION , On: 21-Aug-2015 Intent 1000 CC (Special Coverage Instructions Apply. See MCM: 2049) (J7030)By: Dafne Jaime CNP, CNP, Mary E Solu -Medrol Injection, 125 mg On: 21-Aug-2015 Intent (J2930)By: Dafne Jaime CNP Comments: lot [id number] 12/1824 mcgIMright gmas, IT TECHNICAL SPECIALIST Dafne DOUGHERTY Radiology - ChestBy: Addison DOUGHERTY, On: 20-Aug-2015 Intent Dafne Durán CNP Comments: call results to MCiesa INFUSION, NORMAL SALINE SOLUTION , On: 20-Aug-2015 Intent 250 CC (J7050)By: Dafne Jaime CNP, CNP, Mary E Rocephin Injection, 2 Gram On: 20-Aug-2015 Intent (J0696)By: Dafne Jaime CNP Comments: IV 2 gramsright [id number] guagetolerated well, no redness notedlot [id number] 01/26/18asSHIRA CNP Radha Solu -Medrol Injection, 125 mg On: 20-Aug-2015 Intent (J2930)By: Dafne Jaime CNP Comments: SOLUMEDROLlot:[id number]:ite:lt glutroute:IMdose:125mgDEMICK, LINDA DOUGHERTY Radha Aerosol Treatment (81809)By: Slarb On: 20-Aug-2015 Intent IT TECHNICAL SPECIALIST, Gloria Rocephin Injection, 2 Gram On: 19-Aug-2015 Intent (J0696)By: Dafne Jaime CNP Comments: [id number] hip, IM JM, ANNELIESE DOUGHERTY Radha Solu -Medrol Injection, 125 mg On: 19-Aug-2015 Intent (J2930)By: Dafne Jaime CNP Comments: [id number] hip, IMDose-prefilled syringegiven by:DOUGLAS House signed LADONNA Dafne Mota Aerosol Treatment (30669)By: Harman On: 19-Aug-2015 Intent IT TECHNICAL SPECIALIST, Gloria Solu -Medrol Injection, 125 mg On: 07-Jun-2015 Intent (J2930)By: Giovani Hutchins MD Comments: [id number] hip, IMDose-prefilled syringegiven by:ASHLY PERALES signed Rocephin Injection, 2 Gram On: 07-Jun-2015 Intent ([id number])By: Giovani Hutchins MD Comments: 2.4339439774x3 grams rocephin IV22G, 1 inchSite: existing lock flushed easily before and after and then d/c for the weekendTolerated: wellno redness or swelling, no s/s infiltrationML, IT TECHNICAL SPECIALIST INFUSION, NORMAL SALINE SOLUTION , On: 07-Jun-2015 Intent 250 CC ([id number])By: Giovani Hutchins MD INFUSION, NORMAL SALINE SOLUTION , On: 06-Jun-2015 Intent 250 CC ([id number])By: Giovnai Hutchins MD Rocephin Injection, 2 Gram On: 06-Jun-2015 Intent (J0696)By: Giovani Hutchins MD Comments: [id number] gramsIV Therapy ktaburely53T, 1 inchSite: R ac - lock flushed nicely and left in place for tomorrowTolerated: well x 1st attemptno redness or swelling, no s/s infiltrationML, IT TECHNICAL SPECIALIST Solu -Medrol Injection, 125 mg On: 06-Jun-2015 Intent (J2930)By: Giovani Hutchins MD Comments: [id number] hip, IMML, IT TECHNICAL SPECIALIST Radiology - ChestBy: Liset HUTCHINSON, On: 06-Jun-2015 Intent Giovani Comments: Acute execerbation of COPD?PNA Aerosol Treatment ([id number])By: Liset On: 06-Jun-2015 Intent Giovani HUTCHINSON Overnight Pulse OX ([id number])By: Marquise On: 03-Jun-2015 Jackie Mena DO Six Minute Walk Assessment On: 29-May-2015 Intent ([id number])By: Jackie Christina DO Overnight Pulse OX ([id number])By: Marquise On: 29-May-2015 Jackie Mena DO MAMMOGRAM, SCREENING, BOTH BREAST On: 03-May-2015 Intent ([id number])By: Jackie Christina DO Six Minute Walk Assessment On: 25-Feb-2015 Intent ([id number])By: Jackie Chrsitina DO Overnight Pulse OX ([id number])By: Marquise On: 25-Feb-2015 Jackie Mena DO BILATERAL MAMMOGRAMS ([id number])By: On: 26-Nov-2014 Intent Jackie Christina DO EKG ([id number])By: Jackie Christina DO On: 26-Nov-2014 Intent Comments: ekg showed normal sinus rhythym, normal axis, no acute st/t wave changes twave inversion ant no change Solu -Medrol Injection, 125 mg On: 08-Aug-2014 Intent (J2930)By: Dafne Jaime CNP Comments: [id number], IMR hip, IMJM, BUSINESS EXCELLENCE MANAGER Dafne DOUGHERTY Rocephin Injection, 2 Gram On: 08-Aug-2014 Intent (J0696)By: Dafne Jaime CNP Comments: 9.0440150383u2 grams IV R ac, x 1 attempt - tolerated well Alisha, IT TECHNICAL SPECIALIST Dafne DOUGHERTY INFUSION, NORMAL SALINE SOLUTION , On: 08-Aug-2014 Intent 250 CC (J7050)By: Dafne Jaime CNP, CNP, Mary E IV Needle placement ([id number])By: On: 07-Aug-2014 Intent Dafne Jaime CNP, CNP, Mary E Comments: 22G insyte initiated on 1st attempt w/o difficulty, no s/s redness, swelling infiltration, infusing on gravity pole at 38gtts/min, dsg dry intact, catheter removed intact- tolerated well- CTyler IT TECHNICAL SPECIALIST Solu -Medrol Injection, 125 mg On: 07-Aug-2014 Intent (J2930)By: Dafne Jaime CNP Comments: Lot:[id number]:12/2016Dose:125mgRoute:imSite:r armGiven By:FADIA signed Dafne DOUGHERTY INFUSION, NORMAL SALINE SOLUTION , On: 07-Aug-2014 Intent 250 CC (J7050)By: Dafne Jaime CNP, CNP, Mary E Rocephin Injection, 2 Gram On: 07-Aug-2014 Intent (J0696)By: Dafne Jaime CNP Comments: lot # [id number]- 02/26/2017site-R Median antecuberoute-IVdose- 2GCTyler IT TECHNICAL SPECIALIST Dafne DOUGHERTY Aerosol Treatment ([id number])By: Addison On: 07-Aug-2014 Intent Dafne DOUGHERTY CNP, Mary E Comments: ipitropium- tolerated well- CTyler IT TECHNICAL SPECIALIST Radiology - ChestBy: Addison DOUGHERTY, On: 06-Aug-2014 Intent Dafne Durán CNP Rocephin Injection, 2 Gram On: 06-Aug-2014 Intent ([id number])By: Dafne Jaime CNP, CNP, Mary E Solu -Medrol Injection, 125 mg On: 06-Aug-2014 Intent (J2930)By: Dafne Jaime CNP, CNP, Mary E Aerosol Treatment ([id number])By: On: 31-Jul-2014 Intent Vanessa Chen MD Solu- Medrol Injection, 125mg On: 31-Jul-2014 Intent (J2930)By: Vanessa Chen MD Eprescribed prescriptions On: 31-Jul-2013 Intent (G8553)By: Ivanna Maddox Overnight Pulse OX ([id number])By: Marquise On: 10-May-2013 Intent Jackie JHAVERI Spirometry (51475)By: Marquise JHAVERI, On: 02-May-2013 Intent Jackie Rondon Comments: good effort cure mild obst EKG (15160)By: Ivanna Maddox On: 02-May-2013 Intent Comments: ekg showed normal sinus rhythym, normal axis, no acute st/t wave changes no change in twave inversion ant Six Minute Walk Assessment On: 02-May-2013 Intent ([id number])By: Jackie Christina DO Overnight Pulse OX ([id number])By: Marquise On: 02-May-2013 Jackie Mena DO Eprescribed prescriptions On: 02-May-2013 Intent (G8553)By: Ivanna Maddox MAMMOGRAM, SCREENING, BOTH BREASTS On: 18-Apr-2013 Intent ([id number])By: Jackie Christina DO Clinical Breast Examination On: 18-Apr-2013 Intent (G0101)By: Ivanna Maddox Solu- Medrol Injection, 125mg On: 26-Oct-2012 Intent (J2930)By: Jackie Christina DO Comments: Lot #[id number]-R hip, IMDose- prefilled syringegiven by:VANESA House signed Aerosol Treatment (15287)By: Marquise On: 26-Oct-2012 Jackie Mena DO Eprescribed prescriptions On: 26-Oct-2012 Intent (G8553)By: Ivanna Maddox Pulse Oximetry ([id number])By: Tan On: 26-Oct-2012 Rajesh Goncalves Comments: 98% Spirometry (33759)By: Abi JHAVERI On: 06-Sep-2012 Rajesh Christian Comments: mild restrictive Aerosol Treatment (44950)By: Abi On: 06-Sep-2012 Anahi Mena DO Comments: done pt tolerated well. Albuterol 0.83%-- better a/e no wheeze Solu- Medrol Injection, 125mg On: 06-Sep-2012 Intent (J2930)By: Anahi Alex DO Comments: 2ml given im lt hip lot [id number] exp 04/11 Eprescribed prescriptions On: 06-Sep-2012 Intent (G8553)By: Anahi Alex DO Pulse Oximetry (84653)By: Abi On: 06-Sep-2012 Anahi Mena DO Eprescribed prescriptions On: 22-Aug-2012 Intent (G8553)By: Ivanna Maddox Overnight Pulse OX ([id number])By: Marquise On: 03-May-2012 Jackie Mena DO Comments: Patient demonstrates understanding of how to operate macine. Alisha. Eprescribed prescriptions On: 27-Apr-2012 Intent (G8553)By: Ivanna Maddox Six Minute Walk Assessment On: 01-Apr-2012 Intent (01547)By: Virgen Real LPN PNEUM VAC ADLT/IMUMNOSPR, SBC/INTRM On: 18-Mar-2012 Intent (08783)By: Jackie Christina DO Comments: Lot:[id number]:08-10-13Dose:0.5 mLRoute: Site:[facility] By:FADIA signed PFT - CompleteBy: Jackie Christina DO On: 18-Mar-2012 Intent Six Minute Walk Assessment On: 18-Mar-2012 Intent ([id number])By: Jackie Christina DO Overnight Pulse OX (60875)By: Marquise On: 18-Mar-2012 Jackie Mena DO IMMUNIZ ADMNIN, 1 VAC, SNGL/COMBO On: 18-Mar-2012 Intent ([id number])By: Jackie Christina DO DXA, BONE DENSITY, AXIAL SKELETON On: 18-Mar-2012 Intent (96735)By: Jackie Christina DO MAMMOGRAM, SCREENING, BOTH BREASTS On: 18-Mar-2012 Intent ([id number])By: Jackie Christina DO CT - ChestBy: Jackie Christina DO On: 03-Feb-2012 Intent Solu- Medrol Injection, 125mg On: 30-Sep-2011 Intent (J2930)By: Jackie Christina DO Comments: Lot #[id number]-right [id number] by: Tiny Cox, IT TECHNICAL SPECIALIST Aerosol Treatment (36818)By: Marquise On: 30-Sep-2011 Jackie Mena DO Pulse Oximetry (27427)By: Tan On: 30-Sep-2011 Intent Ivanna Comments: 97% Solu -Medrol Injection, 125 mg On: 25-Sep-2011 Intent (J2930)By: Addison DOUGHERTY, Dafne Acevedoa LADONNA, Radha Pulse Oximetry (45148)By: Addison On: 25-Sep-2011 Intent EPIC ANALYST, Radha Tgezraa EPIC ANALYST, Radha FLU VAC, SPLIT, >3 YEARS, INTRAMUSC On: 01-Jul-2011 Intent ([id number])By: Ivanna Maddox Comments: work MAMMOGRAM, SCREENING, BOTH BREASTS On: 31-Mar-2011 Intent ([id number])By: Jackie Christina DO Solu -Medrol Injection, 125 mg On: 31-Mar-2011 Intent (J2930)By: Jackie Christina DO Eprescribed prescriptions On: 31-Mar-2011 Intent (G8553)By: Jackie Christina DO Solu- Medrol Injection, 125mg On: 16-Dec-2010 Intent (J2930)By: Jackie Christina DO Comments: lot # [id number]- [id number]-IFtrcl- 2ML tolerated well Lenny IT TECHNICAL SPECIALIST Aerosol Treatment (45069)By: Marquise On: 16-Dec-2010 Intent Jackie JHAVERI Comments: tolerated well Pulse Oximetry (23259)By: Marquise JHAVERI On: 16-Dec-2010 Intent Jackie Rondon Comments: 96% on room air Eprescribed prescriptions On: 16-Dec-2010 Intent (G8553)By: Jackie Christina DO Pulse Oximetry (03262)By: Tan On: 15-Jul-2010 Intent Ivanna Comments: 96% TD Injection , IM (09562)By: Marquise On: 04-Jul-2010 Intent Jackie JHAVERI Comments: Lot #[id number]/12Site-R DltdDose 0.5mlgiven by:UDAY EKG (14128)By: Ivanna Maddox On: 04-Jul-2010 Intent Radiology - Lumbar SpineBy: Addison On: 12-May-2010 Intent Dafne DOUGHERTY CNP, Dafne Mota MAMMOGRAM, SCREENING, BOTH BREASTS On: 19-Nov-2009 Intent ([id number])By: Jer Christina DOa A MAMMOGRAM, SCREENING, BOTH BREASTS On: 07-May-2009 Intent ([id number])By: Marquise JHAVERI Jackie A EKG (16260)By: Ivanna Maddox On: 07-May-2009 Intent Comments: ekg showed normal sinus rhythym, normal axis, no acute st/t wave changes Aerosol Treatment (16477)By: On: 22-Apr-2009 Intent Ivanna Aly Comments: post aerosol tx, pt states i can breath a whole lot better Radiology - Chest- PA and LatBy: On: 19-Apr-2009 Intent Anahi Alex DO Pulse Oximetry (35819)By: Addison On: 04-Apr-2009 Intent Dafne DOUGHERTY CNP, Mary E Aerosol Treatment ([id number])By: Marquise On: 21-Sep-[address] - ChestBy: Jackie Christina DO A On: 21-Sep-2008 Intent Comments: please also look at right upper quadrant- do stat and call wet read Pulse Oximetry ([id number])By: Tan On: 21-Sep-2008 Intent Ivanna Comments: 97% Radiology - Lumbar SpineBy: Marquise On: 14-Jun-2008 Intent DO Jackie A Comments: bone density suggest possible compression at l5 Ultrasound - AortaBy: Marquise JHAVERI, On: 24-Apr-2008 Intent Jackie A Holter Moniter ([id number])By: Marquise JHAVERI, On: 24-Apr-2008 Intent Jackie A EKG (07949)By: Jackie Christina DO A On: 24-Apr-2008 Intent Comments: ekg showed normal sinus rhythym, normal axis, no acute st/t wave changes negative precordial t waves == no change DXA, BONE DENSITY, AXIAL SKELETON On: 24-Apr-2008 Intent (45060)By: Jackie Christina DO INFUSION, NORMAL SALINE SOLUTION , On: 09-Nov-2007 Intent 1000CC (Special Coverage Instructions Apply. See MCM: 2049) (J7050)By: Anahi Alex DO IV Needle placement (40015)By: On: 09-Nov-2007 Intent Anahi Alex DO Comments: PLACED 22 G R ANTECUBITAL - PT DENY WELLGOOD RETURN IV Infusion (32024)By: Abi JHAVERI, On: 09-Nov-2007 Intent Anahi Nuclear Stress Test/Stress On: 17-Oct-2007 Intent SPECT/AdenosineBy: Jackie Christina DO Nuclear Stress Test/Stress On: 18-Jul-2007 Intent SPECT/AdenosineBy: Jackie Christina DO EKG (05675)By: Jackie Christina DO On: 18-Jul-2007 Intent Comments: ekg showed normal sinus rhythym, normal axis, no acute st/t wave changes has neg twaves on precordium but are unchanged Pneumovax (04661)By: Marquise JHAVERI, On: 11-Apr-2007 Intent Jackie Rondon EKG (95455)By: Anahi Alex DO On: 19-Jan-2007 Intent Comments: NSR NONSPECIFIC CHANGES-- Pulse Oximetry (54442)By: Abi On: 24-Sep-2006 Anahi Mena DO Comments: 98% RA Aerosol Treatment (59181)By: Abi On: 24-Sep-2006 Anahi Mena DO Comments: [...] 23-Sep-2006 Intent Anahi Alex DO Aerosol Treatment (51260)By: Abi On: 23-Sep-2006 Intent Anahi JHAVERI Comments: after aerosol- diffuse wheeze and rhonchi lil softer-- more air exchange though Pulse Oximetry (77842)By: Armond RN, On: 23-Sep-2006 Intent Karen Comments: 98% PNEUM VAC ADLT/IMUMNOSPR, SBC/INTRM On: 08-Jul-2006 Intent (60787)By: MARKIE Hayden IMMUNIZ ADMNIN, 1 VAC, SNGL/COMBO On: 08-Jul-2006 Intent (43558)By: MARKIE Hayden Planned Medications INFUSION, NORMAL SALINE SOLUTION , 1000 CC Ordered: 24-Jan-2018 Pending Ciesa EPIC ANALYST, Radha Ciesa EPIC ANALYST, Radha INFUSION, NORMAL SALINE SOLUTION , 1000 CC Ordered: 21-Aug-2015 Pending Ciesa EPIC ANALYST, Radha Ciesa EPIC ANALYST, Radha INFUSION, NORMAL SALINE SOLUTION , 250 CC Ordered: 20-Aug-2015 Pending Ciesa EPIC ANALYST, Radha Ciesa EPIC ANALYST, Radha INFUSION, NORMAL SALINE SOLUTION , 250 CC Ordered: 07-Jun-2015 Pending Liset HUTCHINSON Giovani INFUSION, NORMAL SALINE SOLUTION , 250 CC Ordered: 08-Aug-2014 Pending Ciesa EPIC ANALYST, Radha Ciesa EPIC ANALYST, Radha INFUSION, NORMAL SALINE SOLUTION , 250 CC Ordered: 07-Aug-2014 Pending Ciesa EPIC ANALYST, Radha Ciesa EPIC ANALYST, Radha INFUSION, NORMAL SALINE SOLUTION , 250 CC Ordered: 06-Jun-2015 Pending Giovani Hutchins MD INJECTION, CEFTRIAXONE SODIUM, PER 250 MG Ordered: 21-Aug-2015 Pending Ciesa EPIC ANALYST, Radha Ciesa EPIC ANALYST, Radha INJECTION, CEFTRIAXONE SODIUM, PER 250 MG Ordered: 07-Jun-2015 Pending Giovani Hutchins MD INJECTION, CEFTRIAXONE SODIUM, PER 250 MG Ordered: 06-Jun-2015 Pending Giovani Hutchins MD INJECTION, CEFTRIAXONE SODIUM, PER 250 MG Ordered: 19-Aug-2015 Pending Ciesa EPIC ANALYST, Radha Ciesa EPIC ANALYST, Radha INJECTION, CEFTRIAXONE SODIUM, PER 250 MG Ordered: 08-Aug-2014 Pending Ciesa EPIC ANALYST, Radha Ciesa EPIC ANALYST, Radha INJECTION, CEFTRIAXONE SODIUM, PER 250 MG Ordered: 20-Aug-2015 Pending Curtisa EPIC ANALYSTDafneesa EPIC ANALYST, Radha INJECTION, CEFTRIAXONE SODIUM, PER 250 MG Ordered: 07-Aug-2014 Pending Curtisa EPIC ANALYST, Dafne Acevedoa EPIC ANALYST, Radha INJECTION, CEFTRIAXONE SODIUM, PER 250 MG Ordered: 06-Aug-2014 Pending Tgesa EPIC ANALYST, Dafne Masesa EPIC ANALYST, Radha INJECTION, CEFTRIAXONE SODIUM, PER 250 MG Ordered: 18-Nov-2016 Pending Curtisa EPIC ANALYST, Dafne Acevedoa EPIC ANALYST, Radha INJECTION, KETOROLAC TROMETHAMINE, PER 15 MG Ordered: 24-Mar-2017 Pending Tgesa EPIC ANALYST, Dafne Mota Ciesa EPIC ANALYST, Radha INJECTION, KETOROLAC TROMETHAMINE, PER 15 MG Ordered: 07-Apr-2017 Pending Curtisa EPIC ANALYST, Dafne Acevedoa EPIC ANALYST, Radha INJECTION, KETOROLAC TROMETHAMINE, PER 15 MG Ordered: 12-Jul-2017 Pending Curtisa EPIC ANALYSTDafnea EPIC ANALYST, Radha INJECTION, METHYLPREDNISOLONE SODIUM SUCCINATE, UP TO 125 MG Ordered: 18-Nov-2016 Pending Curtisa EPIC ANALYSTDafnea EPIC ANALYST, Radha INJECTION, METHYLPREDNISOLONE SODIUM SUCCINATE, UP TO 125 MG Ordered: 31-Mar-2011 Pending Fast DO, Jackie A INJECTION, METHYLPREDNISOLONE SODIUM SUCCINATE, UP TO 125 MG Ordered: 21-Aug-2015 Pending Curtisa Dafne DOUGHERTYa EPIC ANALYST, Radha INJECTION, METHYLPREDNISOLONE SODIUM SUCCINATE, UP TO 125 MG Ordered: 25-Sep-2011 Pending Curtisa EPIC ANALYSTDafnea EPIC ANALYST, Radha INJECTION, METHYLPREDNISOLONE SODIUM SUCCINATE, UP TO 125 MG Ordered: 06-Aug-2014 Pending Curtisa EPIC ANALYSTDafnea EPIC ANALYST, Radha INJECTION, METHYLPREDNISOLONE SODIUM SUCCINATE, UP TO 125 MG Ordered: 07-Jun-2015 Pending Liset HUTCHINSON, Giovani INJECTION, METHYLPREDNISOLONE SODIUM SUCCINATE, UP TO 125 MG Ordered: 19-Aug-2015 Pending Tgesa EPIC ANALYST, Dafne Mota Ciezraa EPIC ANALYST, Radha INJECTION, METHYLPREDNISOLONE SODIUM SUCCINATE, UP TO 125 MG Ordered: 31-Jul-2014 Pending Kita HUTCHINSON, Vanessa Durham INJECTION, METHYLPREDNISOLONE SODIUM SUCCINATE, UP TO 125 MG Ordered: 30-Sep-2011 Pending Fast DO, Jackie A INJECTION, METHYLPREDNISOLONE SODIUM SUCCINATE, UP TO 125 MG Ordered: 06-Jun-2015 Pending Giovani Hutchins MD INJECTION, METHYLPREDNISOLONE SODIUM SUCCINATE, UP TO 125 MG Ordered: 08-Aug-2014 Pending Ciezraa EPIC ANALYST Radha Ciezraa EPIC ANALYST, Radha INJECTION, METHYLPREDNISOLONE SODIUM SUCCINATE, UP TO 125 MG Ordered: 06-Sep-2012 Pending Ailin Alex DOhleen INJECTION, METHYLPREDNISOLONE SODIUM SUCCINATE, UP TO 125 MG Ordered: 07-Aug-2014 Pending Ciesa EPIC ANALYST, Radha Ciesa EPIC ANALYST, Radha INJECTION, METHYLPREDNISOLONE SODIUM SUCCINATE, UP TO 125 MG Ordered: 26-Oct-2012 Pending Fast DO, Jackie A INJECTION, METHYLPREDNISOLONE SODIUM SUCCINATE, UP TO 125 MG Ordered: 20-Aug-2015 Pending Ciesa EPIC ANALYST, Dafne Mota Ciezraa EPIC ANALYST, Radha INJECTION, METHYLPREDNISOLONE SODIUM SUCCINATE, UP TO [...] BLD CNT, COMPL CBC W/AUTO DIFF WBC (39540) Indication: Benign essential hypertension Other and unspecified hyperlipidemia : DISCONTINUED - LIPID PANEL (06721) Indication: Other and unspecified hyperlipidemia Hypothyroidism : DISCONTINUED - TSH (45174) Indication: Hypothyroidism Other and unspecified hyperlipidemia : DISCONTINUED - LIPID PANEL (88220) Indication: Other and unspecified hyperlipidemia DIABETES MELLITUS WITHOUT MENTION OF COMPLICATION; TYPE II OR UNSPECIFIED TYPE, NOT STATED UNCONTROLLED : DISCONTINUED - MICROALBUMIN: CREATININE RATIO (64250) AND (30304) Indication: DIABETES MELLITUS WITHOUT MENTION OF COMPLICATION; TYPE II OR UNSPECIFIED TYPE, NOT STATED UNCONTROLLED DIABETES MELLITUS WITHOUT MENTION OF COMPLICATION; TYPE II OR UNSPECIFIED TYPE, NOT STATED UNCONTROLLED : DISCONTINUED - METABOLIC PANEL, COMPREHENSIVE (39453) Indication: DIABETES MELLITUS WITHOUT MENTION OF COMPLICATION; TYPE II OR UNSPECIFIED TYPE, NOT STATED UNCONTROLLED DIABETES MELLITUS WITHOUT MENTION OF COMPLICATION; TYPE II OR UNSPECIFIED TYPE, NOT STATED UNCONTROLLED : DISCONTINUED - CBC WITH MANUAL DIFF (31054) Indication: DIABETES MELLITUS WITHOUT MENTION OF COMPLICATION; TYPE II OR UNSPECIFIED TYPE, NOT STATED UNCONTROLLED DIABETES MELLITUS WITHOUT MENTION OF COMPLICATION; TYPE II OR UNSPECIFIED TYPE, NOT STATED UNCONTROLLED : DISCONTINUED - METABOLIC PANEL, COMPREHENSIVE (29815) Indication: DIABETES MELLITUS WITHOUT MENTION OF COMPLICATION; [...] mellitus, uncontrolled : DISCONTINUED - LIPID PANEL (63095) Indication: Type 2 or unspecified type diabetes [...] ,supplemental vitamins and low salt diet. The or dical issues the patient is following up [...] for Flu like symptoms: Son diagnosed with [id number] Diagnosis: BRONCHITIS, NOT SPECIFIED ACUTE OR CHRONIC [...] he wants her to do exercise at [employer] and has her set up for activiity [...] : (180's). 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
--- OUTSIDE RECORDS SUMMARY | 2018-09-20 12:05 | XMS RPT_ITS | Continuity of Care Document ---
:1950 Author Organization [facility] Address [address] [place] [address] Phone Care Team Providers Name Role Phone Dafne Jaime CNP Unavailable Juan Catherine Unavailable Rogelio Granado Unavailable Lindsey Cheek Unavailable Unavailable Slarb [employer], Gloria Unavailable Unavailable Yuval Rodas Unavailable Unavailable Long [employer], Alisha Hodge Unavailable Unavailable Messenger, [employer] SERVICES Yoselin Unavailable Unavailable Unavailable Unavailable Problems Name Dates Details Acne (L70.9, 706.1) Status: Active Acute sinusitis (J01.90, 461.9) 16-Dec-2010 Status: Active Adrenal adenoma, right (D35.01, 227.0) Status: Active Allergic rhinitis (J30.9, 477.9) Status: Active Anxiety (F41.9, 300.00) Status: Active Anxiety (F41.9, 300.00) Status: Active Back pain (M54.9, 724.5) Status: Active Benign essential hypertension (I10, 401.1) Comments: chronic stable-continue present regimen Status: Active BMI 40.0-44.9, adult (Z68.41, V85.41) Status: Active BMI 45.0-49.9, adult (Z68.42, V85.42) Status: Active Bronchitis, acute (J20.9, 466.0) 15-Jul-2010 Status: Active Chronic obstructive pulmonary disease, unspecified COPD type (J44.9, 496) Comments: had PFTS in past. seen sibilia in past. will get back pulm to Dr. catherine. would like to get execising again can get abck to pulm rehab Status: Active COPD with acute exacerbation (Renamed [...] days Quantity: 3 {Tube} Refills: 3 Ordered:19-Aug-2016 Addison DOUGHERTY Dafne Kriss DOUGHERTY Dafne Moat Start : 19-Aug-2016 Active FreeStyle Lancets Miscellaneous [...] {QS} Refills: 3 Ordered:31-Dec-2017 Addison DOUGHERTY Dafne Lewalcon DOUGHERTY Dafne Mota Start : 31-Dec-2017 Active HydroCHLOROthiazide 12.5 MG Oral Capsule 1 (one) Capsule qam for 0 days Quantity: 90 {Capsule} Refills: 3 Ordered:02-Feb-2018 Addison DOUGHERTY Dafne BOLDENpatrick DOUGHERTY Dafne Mota Start : 02-Feb-2018 Active Irbesartan 75 MG Oral Tablet 2 (two) Tablet qhs for 0 days Quantity: 60 {Tablet} Refills: 11 Ordered:09-Mar-2018 Addison DOUGHERTY Dafne BOLDENpatrick DOUGHERTY Dafne Mota Start : 09-Mar-2018 Active Levothyroxine Sodium 150 MCG Oral Tablet 1 (one) Tablet daily for 30 days Quantity: 30 {Tablet} Refills: 3 Ordered:11-Apr-2018 Addison DOUGHETRY Dafne Lewalcon DOUGHERTY Dafne Mota Start : 11-Apr-2018 Active Levothyroxine Sodium 150 MCG Oral Tablet 1 (one) Tablet daily for 90 days Quantity: 90 {QS} Refills: 3 Ordered:11-Apr-2018 Addison DOUGHERTY, Dafne Casper CNP Start : 11-Apr-2018 Active Metoprolol Succinate ER 100 MG Oral Tablet Extended Release 24 Hour 1 (one) Tablet daily for 0 days Quantity: 30 {Tablet} Refills: 3 Ordered:08-Mar-2018 Addison DOUGHERTY, Dafne Casper CNP Start : 08-Mar-2018 Active Qvar 40 MCG/ACT Inhalation Aerosol Solution 2 (two) Puff Puff bid for 0 days Quantity: 1 {Inhaler} Refills: 3 Ordered:17-Feb-2016 Slarb Gloria SILVA Start : 17-Feb-2016 Active Simvastatin 40 MG [...] days Quantity: 1 {Box} Refills: 3 Ordered:25-Jan-2018 Addison DOUGHERTY, Dafne Casper CNP Start : 25-Jan-2018 Active Comments:take 0.6 Victoza 18 MG/3ML Subcutaneous Solution Pen-injector 0.6 Pre-filled Pen Syringe daily for 90 days Quantity: 1 {Box} Refills: 6 Ordered:25-Jan-2018 Addison DOUGHERTY, Dafne Casper CNP Start : 25-Jan-2018 Active Comments:Start 0.6mg x [...] Quantity: 120 {Tablet} Refills: 3 Ordered:24-Mar-2017 Curtisa SUPERVISOR [employer]SEMBLY, [facility] Radha Start : 24-Mar-2017 End : 24-Mar-2017 Inactive Atenolol 50 MG Oral Tablet 1 (one) Tablet one in am, 2 in pm for 90 days Quantity: 180 {Tablet} Refills: 3 Ordered:24-Mar-2017 Curtisa SUPERVISOR [employer]SEMBLY, [facility]afne VipinAsc[facility], Radha Start : 24-Mar-2017 [...] Quantity: 20 {Capsule} Refills: 0 Ordered:15-Jun-2014 Addison SUPERVISOR [employer] ASSEMBLY, Dafne Monterroso SUPERVISOR [employer] ASSEMBLY, Radha Start : 15-Jun-2014 End : 25-Jun-2014 [...] Inactive Comments:05/23/07 samples up front for pt machine pecan picker/ko CRESTOR, 10MG (Oral Tablet) 1 tab [...] days Quantity: 90 {Tablet} Refills: 3 Ordered:20-Oct-2006 Marquise Jackie Start : 20-Oct-2006 End : 11-Apr-2007 Inactive [...] : 09-Dec-2017 End : 19-Jan-2018 Inactive Pen Carmi 31G X 6 MM Miscellaneous uad Misc [...] days Quantity: 20 {Tablet} Refills: 0 Ordered:19-Aug-2015 Tgezraalcon DOUGHERTY Dafne Kriss DOUGHERTY, Radha Start : 19-Aug-2015 [...] 24-Aug-2011 End : 03-Feb-2012 Inactive VITAMIN D, 77510XNZF (Oral Capsule) 1 (one) Capsule q week for 0 days Quantity: 12 {Capsule} Refills: 0 Ordered:19-Nov-2009 Ivanna Maddox Start : 19-Aug-2009 Inactive VITAMIN D3, 1000UNIT (Oral Tablet) 1 tab bid for 0 days Refills: 0 Ordered:19-Nov-2009 Kar Maddoxctive WELLBUTRIN XL, 150MG (Oral Tablet Extended Release 24 Hour) 1 Daily for 0 days Refills: 0 Ordered:27-Sep-2006 Abi JHAVERI Anahi End : 12-Mar-2006 Inactive Zithromax Z-Nic 250 [...] Alex DO End : 12-Mar-2006 Discontinued Ergocalciferol 56664 UNIT Oral Capsule 1 (one) Capsule Capsule [...] Quantity: 3 {Inhaler} Refills: 2 Ordered:17-Feb-2016 Slarb [employer], Gloria Start : 11-Feb-2016 End : 17-Feb-2016 Discontinued Flovent HFA 110 MCG/ACT Inhalation Aerosol 2 Puff bid for 90 days Quantity: 30 {QS} Refills: 3 Ordered:17-Feb-2016 Slarb [employer], Gloria Start : 11-Feb-2016 End : 17-Feb-2016 Discontinued GUAIATUSSIN AC, 100-10MG/5ML (Oral Syrup) 1 Syrup TID prn for 0 days Quantity: 8 {Ounce(s)} Refills: 0 Ordered:18-Mar-2012 Ivanna Maddox Start : 18-Mar-2012 End : 18-Mar-2012 Discontinued Comments:eight ounces Ipratropium-Albuterol 0.5-2.5 (3) MG/3ML Inhalation Solution 1 (one) Solution Solution qid PRN for 0 days Quantity: 90 {QS} Refills: 3 Ordered:13-May-2016 Slarb [employer], Gloria Start : 13-Feb-2016 End : 13-May-2016 [...] Quantity: 30 {Tablet} Refills: 6 Ordered:31-Dec-2017 Addison DOUGHERTY, Dafne Monterroso CNP, Dafne Mota Start : 31-Dec-2017 End : 31-Dec-2017 Discontinued METFORMIN HCL, 500MG (Oral Tablet Extended Release 24 Hour) 3 (three) Tablet ER 24HR qd for 0 days Quantity: 90 {Tablet_ER_24HR} Refills: 3 Ordered:11-Jun-2006 PiyushBelen Start : 11-Jun-2006 End : 20-Oct-2006 Discontinued [...] days Quantity: 6 {Inhaler} Refills: 0 Ordered:13-May-2016 SlaGloria william LPN Start : 11-Feb-2016 End : 13-May-2016 [...] Lead Electrocardiogram Result: Comments: See Note; NOTES: [facility] Cardiovascular Services [address] [place] [address] 12 Lead EKG 01/22/184 MR#: [id number] Acct: [id number] Name: IMANI VINSON haylee #: [id number] : 1950 67 From: Ramiro Moreno MD [...] ECG Confirmed by RAMIRO MONSON MD ([id number]), publications editor RUBI VILLATORO (56) on 01/25/2018 3:09:19 PM Referred By: Confirmed By:RAMIRO MORENO MD 01/25/18 1509 Date Ramiro Moreno MD CC: Dafne Jaime ROOM MANAGER; Tyson Hernandez DO Signed 24-Jan-2018 Emergency Department Summary Result: Comments: See Note; NOTES: [facility] Medical Records Department [address] [place] [address] Emergency Department Summary 01/22/18 2318 MR#: [id number] Acct: [id number] Name: IMANI VINSON Rep #: [id number] : 1950 67 From: Tyson Hernandez DO [...] 2. Hypertension This note was generated with Cars[employer] dictation software. It may contain incorrect words, [...] your Primary Care Provider. Call [facility] ([phone]) or report to the closest Emergency Room. Call 911 if necessary. 01/24/18 0026 <Electronically signed by Tyson Hernandez DO> Date _ Tyson Hernandez DO Cosigner Signature (If Indicated): Date CC: Dafne Jaime ROOM MANAGER 30-Dec-2017 12 Lead Electrocardiogram Result: Comments: See Note; NOTES: [facility] Cardiovascular Services [address] [place] [address] 12 Lead EKG 12/25/17 1326 MR#: [id number] Acct: [id number] Name: IMANI VINSON Lottie leach #: [id number] : 1950 67 From: Ramiro Moreno MD [...] sinus rhythm Normal ECG Confirme d by RAJWINDER HUTCHINSON, RAMIRO ([id number]), publications editor RUBI VILLATORO (56) on 12/30/2017 3:06:27 PM Referred By: Yoselin Oconnell Confirmed By:RAMIRO MORENO MD 12/30/17 1506 Date _ Ramiro Moreno MD CC: Dafne Jaime NP; Ivanna Puri MD Signed 25-Dec-2017 Emergency Department Summary Result: Comments: See Note; NOTES: [facility] Medical Records Department [address] [place] [address] Emergency Department Summary 12/25/17 1538 MR#: [id number] Acct: [id number] Name: IMANI VINSON Rep #: [id number] : 1950 67 From: Ivanna Puri MD [...] Cephalgia, improved This note was generated with Cars[employer] dictation software. It may contain inco rrect [...] Primary Ca re Provider. Call [facility] ([phone]) or report to the closest Emergency Room. Call 911 if necessary. 12/25/17 1636 <Electronically signed by Ivanna Puri MD> Date Ivanna Puri MD Cosigner Signature (If Indicated): Date CC: Dafne Addison BRUNNER 25-Dec-2017 Discharge Instruction Result: Comments: See Note; NOTES: [facility] Medical Records Department [address] [place] [address] Discharge Instruction 12/25/17 1542 MR#: [id number] Acct: [id number] Name: IMANI VINSON Rep #: [id number] : 1950 67 From: Ivanna Puri MD [...] your Primary Care Provider. Call [facility] ([phone]) or report to the closest Emergency Room. Call 911 if necessary. 12/25/17 1543 <Electronically signed by Ivanna Puri MD> D ate Ivanna Puri MD Cosigner Signature (If Indicated): Date CC: Dafne Jaime NP 25-Dec-2017 Chest 1 View (Portable) Result: Comments: See Note; NOTES: [facility] Imaging Services [address] [place] [address] Chest 1 View (Portable) MR#: [id number] Acct: [id number] Name: IMANI VINSON Rep #: [id number] : 1950 F 67 From: Walter Corbin MD PCP: Dafne Jaime NP Status: REG ER Study: Chest 1 View (Portable) Date of Exam: 12/25/17 Exam# [id number] Ordering Dr: Ivanan Puri MD STUDY: X-RAY CHEST REASON FOR [...] at 14:22 EDT Tel , Service support [phone], RAD/Chest 1 View (Portable) CC: Dafne Jaime NP; Ivanna Puri MD [employer] Dispatcher: Signed 23-Dec-2017 Abdomen/Pelvis without Cont Result: Comments: See Note; NOTES: [facility] Imaging Services [address] [place] [address] Abdomen/Pelvis without Cont MR#: [id number] Acct: [id number] Name: IMANI VINSON Rep #: [id number] : 1950 F 67 From: Leobardo Mckenzie MD PCP: Dafne Jaime NP Status: REG CLI Study: Abdomen/Pelvis without Cont Date of Exam: 12/23/17 Exam# [id number] Ordering Dr: Yoselin Oconnell ROOM MANAGER-C STUDY: CT ABDOMEN AND PELVIS WITHOUT [...] Leobardo Mckenzie MD at 12:50 EDT Tel [phone], Service support , Fax CC: Dafne Jaime NP; MARCO ANTONIO Oconnell [employer] Dispatcher: Signed 12-Feb-2017 Chest without Contrast Result: Comments: See Note; NOTES: [facility] Imaging Services [address] [place] [address] Chest without Contrast MR#: [id number] Acct: [id number] Name: IMANI VINSON Rep #: [id number] : 1950 F 66 From: Ace Olivia DO PCP: Dafne Jaime Status: REG CLI Study: Chest without Contrast Date of Exam: 02/12/17 Exam# [id number] Ordering Dr: Rogelio Granado MD STUDY: CT [...] Ace Olivia DO at 11:21 EDT Tel [phone], Workspace support , CC: Dafne Jaime; Rogelio Granado MD [employer] Dispatcher: Signed 19-Jan-2017 Chest PA and Lateral Result: Comments: See Note; NOTES: [facility] Imaging Services [address] [place] [address] Verdana 4d Chest PA and Lateral MR#: [id number] Acct: [id number] Name: IMANI VINSON Maikel Rep #: [id number] : 1950 F 66 From: Leobardo Mckenzie MD PCP: Dafne Jaime Status: REG CLI Study: Chest PA and Lateral Date of Exam: 01/19/17 Exam# [id number] Ordering Dr: Rogelio Granado MD ST UDY: [...] Leobardo Mckenzie MD at 12:43 EDT Tel [phone], Service support [phone], CC: Dafne Jaime; Rogelio Granado MD [employer] Dispatcher: Signed 17-Oct-2015 Spirometry (11820) Result: 20-Aug-2015 Chest PA and Lateral Result: Comments: See Note; NOTES: [facility] Imaging Services [address] [place] [address] Verdana 4d Chest PA and Lateral MR#: [id number] Acct: [id number] Name: DESIRAE TamayoIMANI Rep #: [id number] : 1950 F 64 From: Leobardo Mckenzie MD PCP: Jackie Christina DO Status: REG CLI Study: Chest PA and Lateral Date of Exam: 08/20/15 Exam# [id number] Ordering Dr: Dafne Jaime STUDY: X-RAY CHEST [...] Leobardo Mckenzie MD at 13:08 EST Tel [phone], Service support [phone] , RAD/Chest PA and Lateral IMPRESSION: Hyperinflation. No acute abnormality is seen. Electronically Signed: Leobardo Mckenzie MD at 13:08 EST Tel [phone], Service support [phone], CC: Dafne Jaime; Jackie Christina DO [employer] Dispatcher: Signed 06-Jun-2015 Chest PA and Lateral Result: Comments: See Note; NOTES: [facility] Imaging Services [address] [place] [address] Verdana 4d Chest PA and Lateral MR#: [id number] Acct: [id number] Name: IMANI FRASER Rep #: [id number] : 1950 F 64 From: Leobardo Mckenzie MD PCP: Jackie Christina DO Status: REG CLI Study: Chest PA and Lateral Date of Exam: 06/06/15 Exam# [id number] Ordering Dr: Giovani Hutchins STUDY: X-RAY CHEST [...] Leobardo Mckenzie MD at 14:52 EST Tel [phone], Service support [phone], 0056 RAD/Chest PA and Lateral IMPRESSION: Hyp erinflation. Electronically Signed: Leobardo Mckenzie MD at 14:52 EST Tel [phone], Service support [phone], CC: Jackie Christina DO; Nga Hutchins [employer] Dispatcher: Signed 06-Aug-2014 Chest PA and Lateral Result: Comments: See Note; NOTES: [facility] Imaging Services [address] [place] [address] Radiology Report MR#: [id number] Acct: [id number] Name: IMANI VINSON Rep #: [id number] : 1950 F 63 From: Leobardo Mckenize MD PCP: Jackie Christina DO Status: REG CLI Study: Chest PA and Lateral Date of Exam: 08/06/14 Exam# [id number] Ordering Dr: Dafne Jaime STUDY: X-RAY CHEST [...] Leobardo Mckenzie MD at 13:03 EST Tel [phone], Service support [phone], CC: Dafne Jaime; Jackie Christina DO [employer] Dispatcher: Signed 05-May-2013 Bilat Scrn Digital & CAD Result: Comments: See Note; NOTES: [facility] Imaging Services [address] [place] [address] Breast Imaging Report MR#: [id number] Acct: [id number] Name: IMANI VINSON Rep #: [id number] : 1950 F 62 From: Leobardo Mckenzie MD PCP: Status: PRE CLI Exam# [id number] Ordering Dr: Jackie Christina DO MAMMOGRAPHY - [...] 05, 2013 at 2:48:1 1 PM EST [phone] Electronically Signed GP/GP If you are the referring physician and would like to consult with the radiologist who provided this interpretation, please contact Leobardo thompson M.D. at [phone]. If this radiologist is unavailable, you will be directed to another radiologist to assist. If you are a patient with a question regarding this report, please contact you r referring physician directly. Professional Interpretation Provided By: [employer], Phone , These documents contain legally protected [...] of these documents. CC: Jackie Christina DO [employer] Dispatcher: Signed Immunization Name Dates Details Pneumococcal (2 [...] Vital Signs Date Test Result Details :49 Pulse 88 /min Comments: Pattern: Regular [...] kg/m2 Body Surface Area Calculated 2.26 m2 64-Mhg-432772:40 Temperature 97.1 f Pulse 68 /min Comments: [...] kg/m2 Body Surface Area Calculated 2.23 m2 55-Kuw-020496:07 Pulse 74 /min Comments: Pattern: Regular Respiration [...] 0.00 cm Results Date Description Value Details 4-Nuz-814108:51 CALCIFEDIOL (62899) Comments: PATIENT NOT FASTINGPERFORMED BY: [facility] Xpazuk5141 [facility] [id number] Vitamin D, 25-Hydroxy 35.3 ng/mL (Normal) Range: 30.0-100.0 Comments: Vitamin D deficiency has been defined by the [place] ofMedicine and an Endocrine Society practice guideline as alevel of serum 25-OH vitamin D less than 20 ng/mL (1,2).The Endocrine Society went on to further define vitamin Dinsufficiency as a level between 21 and 29 ng/mL (2).1. IOM ([place] of Medicine). 2010. Dietary reference intakes for calcium and D. [place]: The National Academies Press.2. Eleni MF, Lorne MORTON, Dayron WALTON, et al. Evaluation, treatment, and prevention of vitamin D deficiency: an Endocrine Society clinical practice guideline. JCEM. 2010; 96(7):1911-30. 1-Bfn-856115:43 METANEPHRINES - URINE (11450) Comments: PATIENT NOT FASTINGPERFORMED BY: [facility] Juobwbabav4332 [facility] [id number] Metanephrine, U,24hr 120 {ug/24_hr} (Normal) Range: 45-290 Comments: (Hypertensive) >17 years 11 months: 35 - 460 Metanephrine, Ur 60 ug/L (Normal) Normetanephr.,U,24h 404 {ug/24_hr} (Normal) Range: 82-500 Comments: (Hypertensive) >17 years 11 months: 110 - 1050 Normetanephrine, Ur 202 ug/L (Normal) 6-Qde-985372:43 CATECHOLAMINES TOTAL, URINE Comments: PATIENT NOT FASTINGPERFORMED BY: [address] [id number] Information: [id number] (45666) Dopamine, Ur, 24hr 356 {ug/24_hr} (Normal) Range: 0-510 Dopamine, Urine 178 ug/L (Normal) Norepinephrine,U,24h 78 {ug/24_hr} (Normal) Range: 0-135 Norepinephrine, Ur 39 ug/L (Normal) Epinephrine, U, 24hr 4 {ug/24_hr} (Normal) Range: 0-20 Epinephrine, Urine 2 ug/L (Normal) 9-Myt-432771:43 URINE VMA (00427) Comments: PATIENT NOT FASTINGPERFORMED BY: [address] [id number] VMA, Urine, 24hr 5.0 {mg/24_hr} (Normal) Range: 0.0-7.5 Comments: This test was developed and its performance characteristicsdetermined by [employer]. It has not been cleared or approvedby the Food and Drug Administration. VMA, Urine 2.5 mg/L (Normal) 99-Uci-843904:44 URINE MEHREEN CULTURE-IDENTIFICATN Comments: PERFORMED BY: [facility] [facility] [id number] Information: SRC:KAMI (70173) Result 1 MUG (Normal) Comments: Mixed urogenital flora1,000 Colonies/mL Urine Culture,Comprehensive Final report (Normal) 52-Jxc-377452:41 Urinalysis, Office (58096) UA - LEUKOCYTE ESTERASE Moderate (Normal) UA - NITRITE Negative (Normal) URINE UROBILINGN SUNNY TIMED Normal mg/dL (Normal) UA - PROTEIN Negative mg/dL (Normal) UA - PH 6.0 (Normal) UA - BLOOD Hemolyzed Trace (Normal) UA - SPECIFIC GRAVITY 1.020 (Normal) UA - KETONES Negative mg/dL (Normal) UA - BILIRUBIN Negative (Normal) UA - GLUCOSE Negative (Normal) :10 CBC & PLATELETS (AUTO) Comments: PATIENT NOT FASTINGPERFORMED BY: [facility]6[address] [facility] [id number] (62038) Platelets 270 {x10E3/uL} (Normal) Range: 150-379 RDW 13.8 % (Normal) Range: 12.3-15.4 MCHC 33.7 g/dL (Normal) Range: 31.5-35.7 MCH 29.7 pg (Normal) Range: 26.6-33.0 MCV 88 fL (Normal) Range: 79-97 Hematocrit 40.1 % (Normal) Range: 34.0-46.6 Hemoglobin 13.5 g/dL (Normal) Range: 11.1-15.9 RBC 4.54 {x10E6/uL} (Normal) Range: 3.77-5.28 WBC 6.8 {x10E3/uL} (Normal) Range: 3.4-10.8 81-Ihz-390545:10 RENAL FUNCTION PANEL (63647) Comments: PATIENT NOT FASTINGPERFORMED BY: [facility]6[address] [facility] [id number] Albumin 3.8 g/dL (Normal) Range: 3.6-4.8 Phosphorus [...] 8-27 Glucose 133 mg/dL (Abnormal) Range: 65-99 03-Fey-442170:10 PARATHORMONE (85123) Comments: PATIENT NOT FASTINGPERFORMED BY: [facility] Sijnar[address] [place] [place] [id number] PTH, Intact 32 pg/mL (Normal) Range: 15-65 88-Jak-576819:00 Urinalysis, Complete Comments: How was Urine Obtained? HAZARDOUS W[facility] [address] [place], [place], [phone] MUCUS, URINE 0 SEEN {/hpf} (Normal) BACTERIA [...] (Normal) CLARITY Clear (Normal) COLOR Yellow (Normal) 28-Nah-521390:04 CBC W/Diff, Automated Comments: [facility] [address] [place], [place], [phone] PLT EST ADEQUATE (Normal) SMEAR COMMENT SCANNED [...] 4.2-5.4 WBC 9.7 K/mm3 (Normal) Range: 4.4-11.0 59-Ysp-416674:04 Comprehensive Metabolic Profil Comments: [facility] [address] [place], [address] GAP 8 (Normal) Range: 5-15 CO2 26.0 [...] A.D.A. criteria.Please note revised GLUCOSE reference range jwsskgmiq41/02/2018. 64-Pwe-195549:04 Lipase Comments: [facility] S[address]axfcgmy[address] [facility] [place], [address] LIPASE 346 U/L (Normal) Range: 73-393 51-Uwz-100684:04 Troponin-I Comments: [facility] [address]wsjon[address] [facility]. [place], [place], [address] TROPONIN-I < 0.015 ng/mL (Normal) Comments: TROPONIN-I EXPECTED VALUES <0.045 Negative 0.045 - 0.590 Consistent with Cardiac Damage > OR = 0.600 Critical Value Not every elevated troponin is indicative of FL. T hesevalues should be used with clinical judgement in examiningthe patient's clinical picture for diagnosis. To establisha diagnosis of FL versus myocardial injury, there must be ademonstrated rise and/ or fall in the troponin values, inaddition to ischemic symptoms, EKG changes, new regionalwall motion abnormality, and/or angiographical evidence. PLEASE NOTE: REFERENCE RANGES EDITED 11/08/1712-Jan-201838-Gju-115273:27 TSH (THYROID STIMULATING Comments: January 12; PATIENT WAS FASTINGPERFORMED BY: [facility] Hamilton[facility]ipbii7405 [facility] [id number] HORMONE) (90183) TSH 1.920 {uIU/mL} (Normal) Range: 0.450-4.500 75-Dcg-740963:27 CBC & PLATELETS (AUTO) Comments: after January 12; PATIENT WAS FASTINGPERFORMED BY: [facility] [place] [facility] [id number] Information: [id number] (03276) Platelets 288 {x10E3/uL} (Normal) Range: 150-379 RDW 13.8 % (Normal) Range: 12.3-15.4 MCHC 34.8 g/dL (Normal) Range: 31.5-35.7 MCH 30.8 pg (Normal) Range: 26.6-33.0 MCV 88 fL (Normal) Range: 79-97 Hematocrit 40.2 % (Normal) Range: 34.0-46.6 Hemoglobin 14.0 g/dL (Normal) Range: 11.1-15.9 RBC 4.55 {x10E6/uL} (Normal) Range: 3.77-5.28 WBC 6.2 {x10E3/uL} (Normal) Range: 3.4-10.8 26-Pqi-985616:27 LIPID PANEL (16214) Comments: after January 12; PATIENT WAS FASTINGPERFORMED BY: [facility] HamiltonLdvxsy8369 [facility] [id number] LDL/HDL Ratio 2.1 {ratio} (Normal) Range: 0.0-3.2 Comments: LDL/HDL Ratio Men Women 1/2 Avg.Risk 1.0 1.5 Av g.Risk 3.6 3.2 2X Avg.Risk 6.2 5.0 3X Avg.Risk 8.0 6.1 LDL Cholesterol Calc 88 mg/dL (Normal) Range: 0-99 VLDL Cholesterol Edgardo 46 mg/dL (Abnormal) Range: 5-40 HDL Cholesterol 42 mg/dL (Normal) Triglycerides 230 mg/dL (Abnormal) Range: 0-149 Cholesterol, Total 176 mg/dL (Normal) Range: 100-199 24-Ecj-528958:27 HGB A1C (20846) Comments: do after January 12; PATIENT WAS FASTINGPERFORMED BY: [facility] HamiltonRfqrtm5101 [facility] [id number] Hemoglobin A1c 7.6 % (Abnormal) Range: 4.8-5.6 Comments: . Pre-diabetes: 5.7 - 6.4 Diabetes: >6.4 Glycemic control for adults with diabetes: <7.0 64-Vol-863832:30 Basic Metabolic Profile (BMP) Comments: [facility] [address] [place], [place], [phone] GAP 8 (Normal) Range: 5-15 CO2 25.0 [...] A.D.A. criteria.Please note revised GLUCOSE reference range kbuhvxrll45/02/2018. 34-Rdl-023268:30 Carboxyhemoglobin Frac (CO) Comments: [facility] [address] [place], [place], [phone] COHb 2.1 % (Abnormal) Range: 0.0-1.5 Comments: * NON-SMOKER RANGE 1.6 - 5.0% * LIGHT SMOKER RANGE 5.1 - 9.0% * HEAVY SMOKER RANGE 08-Vgs-097475:30 CBC W/Diff, Automated Comments: [facility] [address] [place], [place], [phone] Absolute Lymph 0.66 {X10_3/ul} (Abnormal) Range: 0.83-4.51 [...] 4.2-5.4 WBC 12.9 K/mm3 (Abnormal) Range: 4.4-11.0 41-Dbt-329005:30 Lipase Comments: [facility] Iegbiwmpyv8247 [facility]. [place], [place], [address] LIPASE 126 U/L (Normal) Range: 73-393 40-Brf-688211:30 Liver Profile Comments: [facility] [address] [place], [place], [address] D BILI 0.13 mg/dL (Normal) Range: 0.00-0.30 T BILI 0.50 mg/dL (Normal) Range: 0.20-1.00 ALT 32 U/L (Normal) Range: 13-56 ALK P 154 U/L (Abnormal) Range: 45-117 AST 25 U/L (Normal) Range: 15-37 GLOB 4.2 g/dL (Normal) Range: 2.2-4.2 ALB 3.5 g/dL (Normal) Range: 3.2-5.0 T PROT 7.7 g/dL (Normal) Range: 6.4-8.2 72-Quh-078514:30 Urinalysis, Complete Comments: Order Date: 12/25/17How was Urine Obtained? CLEAN [facility] Wcltqvrxwj[address] [place], [place], [id number] MUCUS, URINE 0 SEEN {/hpf} (Normal) BACTERIA [...] (Abnormal) CLARITY Clear (Normal) COLOR Yellow (Normal) 25-Wzb-795339:17 Urinalysis, Office (22321) UA - LEUKOCYTE ESTERASE Negative (Normal) UA - NITRITE Negative (Normal) URINE UROBILINGN SUNNY TIMED Normal mg/dL (Normal) UA - PROTEIN Negative mg/dL (Normal) UA - PH 5.0 (Normal) Comments: 5.5 UA - BLOOD Hemolyzed Trace (Normal) UA - SPECIFIC GRAVITY 1.005 (Normal) UA - KETONES Negative mg/dL (Normal) UA - BILIRUBIN Negative (Normal) UA - GLUCOSE 500 (Abnormal) 53-Zrw-984122:15 URINE MEHREEN CULTURE-SUNNY COL Comments: PATIENT NOT FASTINGPERFORMED BY: [facility] Alesfw1760 [facility] [id number] Information: SRC:UC COUNT ([id number]) Result 1 MUG (Normal) Comments: Mixed urogenital flora10,000-25,000 colony forming units per mL Urine Final report (Normal) Culture,Comprehensive 35-Qgr-601376:48 URINE MEHREEN CULTURE-IDENTIFICATN Comments: PATIENT NOT FASTINGPERFORMED BY: LocBoxSierra Vista HospitalTzcwld8516 [facility] [id number] Information: SRC: ([id number]) Antimicrobial MIHEAD (Normal) Comments: S = Susceptible; [...] mL (Abnormal) Urine Final report Culture,Comprehensive (Abnormal) 05-Hcb-856436:24 Urinalysis, Office (85335) UA - LEUKOCYTE ESTERASE Small (Normal) UA - NITRITE Negative (Normal) URINE UROBILINGN SUNNY TIMED Normal mg/dL (Normal) UA - PROTEIN Trace mg/dL (Normal) UA - PH 6 (Abnormal) UA - BLOOD Hemolyzed Large (Normal) UA - SPECIFIC GRAVITY 1.015 (Normal) UA - KETONES Negative mg/dL (Normal) UA - BILIRUBIN Negative (Normal) UA - GLUCOSE 500 (Abnormal) 09-Mjl-193262:33 Blood Glucose , Office (51060) Blood Glucose , Office 159 (Normal) 32-Ura-743018:33 HgA1C , Office (89049) HgA1C , Office 7.0 % (Normal) Range: 4.6 - 7.1 34-Ynj-206505:10 CBC, Platelets & Auto Diff Comments: PATIENT WAS FASTINGPERFORMED BY: [facility] [place]6370 [facility] [id number] (72734) Immature Grans (Abs) 0.0 {x10E3/uL} (Normal) Range: [...] 3.77-5.28 WBC 7.0 {x10E3/uL} (Normal) Range: 3.4-10.8 04-Tfc-831987:10 HGB A1C (23446) Comments: PATIENT WAS FASTINGPERFORMED BY: Unilife Corporationlin6370 [facility] [id number] Hemoglobin A1c 7.4 % (Abnormal) Range: 4.8-5.6 Comments: . Pre-diabetes: 5.7 - 6.4 Diabetes: >6.4 Glycemic control for adults with diabetes: <7.0 :10 LIPID PANEL (39729) Comments: PATIENT WAS FASTINGPERFORMED BY: [facility] Ttzyag8747 [facility] [id number] LDL/HDL Ratio 2.4 {ratio} (Normal) Range: 0.0-3.2 Comments: LDL/HDL Ratio Men Women 1/2 Avg.Risk 1.0 1.5 Av g.Risk 3.6 3.2 2X Avg.Risk 6.2 5.0 3X Avg.Risk 8.0 6.1 LDL Cholesterol Calc 107 mg/dL (Abnormal) Range: 0-99 VLDL Cholesterol Edgardo 28 mg/dL (Normal) Range: 5-40 HDL Cholesterol 45 mg/dL (Normal) Triglycerides 138 mg/dL (Normal) Range: 0-149 Cholesterol, Total 180 mg/dL (Normal) Range: 100-199 12-Hxx-426365:10 Metabolic Panel, Comprehensive Comments: PATIENT WAS FASTINGPERFORMED BY: [facility] Ncpeiu6485 [facility] [id number] (98029) ALT (SGPT) 15 [iU]/L (Normal) Range: 0-32 [...] 8-27 Glucose 141 mg/dL (Abnormal) Range: 65-99 63-Icf-428860:10 MICROALBUMIN: CREATININE RATIO Comments: PATIENT WAS FASTINGPERFORMED BY: [place] 2657470 [facility] [id number] (18932) AND (55178) Alb/Creat Ratio <3.8 {mg/g_creat} (Normal) Range: 0.0-30.0 Albumin, Urine <3.0 ug/mL (Normal) Creatinine, Urine 78.1 mg/dL (Normal) 45-Wks-129325:10 TSH (96524) Comments: PATIENT WAS FASTINGPERFORMED BY: [place] 2657470 [facility] [id number] TSH 2.160 {uIU/mL} (Normal) Range: 0.450-4.500 78-Qrh-506153:10 URINALYSIS W/O MICRO (09486) Comments: PATIENT WAS FASTINGPERFORMED BY: [facility]6370 [facility] [id number] Microscopic Examination MICNIP (Normal) Comments: Microscopic not indicated and not performed. Nitrite, Urine Negative (Normal) Urobilinogen,Semi-Qn 0.2 mg/dL (Normal) Range: 0.2-1.0 Bilirubin Negative (Normal) Occult Blood Negative (Normal) Ketones Negative (Normal) Glucose 3+ (Abnormal) Protein Negative (Normal) WBC Esterase Negative (Normal) Appearance Clear (Normal) Urine-Color Yellow (Normal) pH 5.5 (Normal) Range: 5.0-7.5 Specific [place] >=1.030 (Abnormal) Range: 1.005-1.030 76-Gtl-403124:17 HGB A1C (71380) Comments: today; PATIENT NOT FASTINGPERFORMED BY: [facility]6370 [facility] [id number] Hemoglobin A1c 7.4 % (Abnormal) Range: 4.8-5.6 Comments: . Pre-diabetes: 5.7 - 6.4 Diabetes: >6.4 Glycemic control for adults with diabetes: <7.0 55-Wsm-814530:14 TSH (THYROID STIMULATING Comments: PATIENT WAS FASTINGPERFORMED BY: [place] 2657470 [facility] [id number] HORMONE) (61413) TSH 2.750 {uIU/mL} (Normal) Range: 0.450-4.500 83-Itv-988617:14 Lipid Panel (82973) Comments: PATIENT WAS FASTINGPERFORMED BY: LocBox Yaqowk0973 [facility] [id number] LDL/HDL Ratio 2.0 {ratio_units} (Normal) Range: 0.0-3.2 Comments: LDL/HDL Ratio Men Women 1/2 Avg.Risk 1.0 1.5 Av g.Risk 3.6 3.2 2X Avg.Risk 6.2 5.0 3X Avg.Risk 8.0 6.1 LDL Cholesterol Calc 96 mg/dL (Normal) Range: 0-99 VLDL Cholesterol Edgardo 22 mg/dL (Normal) Range: 5-40 HDL Cholesterol 49 mg/dL (Normal) Triglycerides 110 mg/dL (Normal) Range: 0-149 Cholesterol, Total 167 mg/dL (Normal) Range: 100-199 :14 CALCIFEDIOL (39302) Comments: PATIENT WAS FASTINGPERFORMED BY: [facility] [place]6370 [facility] [id number] Vitamin D, 25-Hydroxy 30.7 ng/mL (Normal) Range: 30.0-100.0 Comments: Vitamin D deficiency has been defined by the [place] of[facility] and an Endocrine Society practice guideline as alevel of serum 25-OH vitamin D less than 20 ng/mL (1,2).The Endocrine Society went on to further define vitamin Dinsufficiency as a level between 21 and 29 ng/mL (2).1. IOM ([place] of Medicine). 2010. Dietary reference intakes for calcium and D. [place]: The National Academies Press.2. Eleni MF, Lorne NC, Dayron WALTON, et al. Evaluation, treatment, and prevention of vitamin D deficiency: an Endocrine Society clinical practice guideline. JCEM. 2010; 96(7):1911-30. :14 Metabolic Panel, Comprehensive Comments: PATIENT WAS FASTINGPERFORMED BY: LocBox Rmzbah1601 [facility] [id number] (23240) ALT (SGPT) 11 [iU]/L (Normal) Range: 0-32 [...] Glucose, Serum 150 mg/dL (Abnormal) Range: 65-99 77-Cet-300870:14 HGB A1C (57816) Comments: PATIENT WAS FASTINGPERFORMED BY: [address] [id number] Hemoglobin A1c 6.3 % (Abnormal) Range: 4.8-5.6 Comments: . Pre-diabetes: 5.7 - 6.4 Diabetes: >6.4 Glycemic control for adults with diabetes: <7.0; ADDENDA: OV 19-Jan-201712:28 Angiotensin Convert Enzyme Comments: [facility] (refer to report for specific site)refer to report for address and phone number [phone] U/L (Normal) Range: 14-82 Comments: Performed at: [address] [id number] Director: Jarrell Collazo PhD, Phone: [phone]; ADDENDA: Dr Granado 62-Kiv-588088:28 Erythrocyte Sed Rate Comments: [facility] Ooxosejryl[address] [place], [place], [address] SED RATE 6 mm/h (Normal) Range: 0-30 28-Nfv-360869:35 CBC, Platelets & Auto Diff Comments: PATIENT NOT FASTINGPERFORMED BY: [facility]CoRobert [facility] at HamiltonIhsbfp9588 [facility] [id number] (16612) Immature Grans (Abs) 0.0 {x10E3/uL} (Normal) Range: [...] 3.77-5.28 WBC 6.5 {x10E3/uL} (Normal) Range: 3.4-10.8 02-Vlq-203656:35 HGB A1C (11545) Comments: PATIENT NOT FASTINGPERFORMED BY: LocBoxSierra Vista HospitalMuvbks7983 [facility] [id number] Hemoglobin A1c 6.7 % (Abnormal) Range: 4.8-5.6 Comments: . Pre-diabetes: 5.7 - 6.4 Diabetes: >6.4 Glycemic control for adults with diabetes: <7.0 71-Gis-048082:35 Metabolic Panel, Basic Comments: PATIENT NOT FASTINGPERFORMED BY: LocBoxSierra Vista HospitalHjyuse3078 [facility] [id number] (19491) Calcium, Serum 10.6 mg/dL (Abnormal) Range: 8.7-10.3 [...] Glucose, Serum 85 mg/dL (Normal) Range: 65-99 36-Kmk-332979:29 Microscopic Examination Comments: PATIENT WAS FASTINGPERFORMED BY: LocBox Jpdlrd5939 [facility] [id number] Bacteria Few (Normal) Mucus Threads Present (Normal) Cast Type Hyaline casts (Normal) Casts Present {/lpf} (Abnormal) Epithelial Cells (non renal) 0-10 {/hpf} (Normal) Range: 0 - 10 RBC 0-2 {/hpf} (Normal) Range: 0 - 2 WBC 0-5 {/hpf} (Normal) Range: 0 - 5 26-Foq-070680:29 URINALYSIS (17734) Comments: PATIENT WAS FASTINGPERFORMED BY: LocBox Nftayp8902 [facility] [id number] Microscopic Examination See below: (Normal) Comments: Microscopic was indicated and was performed. Nitrite, Urine Negative (Normal) Urobilinogen,Semi-Qn 0.2 mg/dL (Normal) Range: 0.2-1.0 Bilirubin Negative (Normal) Occult Blood Negative (Normal) Ketones Negative (Normal) Glucose Negative (Normal) Protein Trace (Normal) WBC Esterase 1+ (Abnormal) Appearance Clear (Normal) Urine-Color Yellow (Normal) pH 6.0 (Normal) Range: 5.0-7.5 Specific [place] 1.027 (Normal) Range: 1.005-1.030 :29 MICROALBUMIN: CREATININE RATIO Comments: PATIENT WAS FASTINGPERFORMED BY: [place] [id number] (47122) AND (45749) Microalb/Creat Ratio 11.0 {mg/g_creat} (Normal) Range: 0.0-30.0 Microalbumin, Urine 29.4 ug/mL (Normal) Creatinine, Urine 266.4 mg/dL (Normal) :29 CALCIFEDIOL (93635) Comments: PATIENT WAS FASTINGPERFORMED BY: Polyera6370 [facility]cloudSaint [facility] [id number] Vitamin D, 25-Hydroxy 29.5 ng/mL (Abnormal) Range: 30.0-100.0 Comments: Vitamin D deficiency has been defined by the [place] ofMedicine and an Endocrine Society practice guideline as alevel of serum 25-OH vitamin D less than 20 ng/mL (1,2).The Endocrine Society went on to further define vitamin Dinsufficiency as a level between 21 and 29 ng/mL (2).1. IOM ([place] of Medicine). 2010. Dietary reference intakes for calcium and D. [place]: The National Academies Press.2. Eleni MF, Lorne NC, Dayron WALTON, et al. Evaluation, treatment, and prevention of vitamin D deficiency: an Endocrine Society clinical practice guideline. JCEM. 2010; 96(7):1911-30. :29 Lipid Panel (11926) Comments: PATIENT WAS FASTINGPERFORMED BY: S[facility]bleFormerly [facility] [id number] LDL/HDL Ratio 1.9 {ratio_units} (Normal) Range: 0.0-3.2 Comments: LDL/HDL Ratio Men Women 1/2 Avg.Risk 1.0 1.5 Av g.Risk 3.6 3.2 2X Avg.Risk 6.2 5.0 3X Avg.Risk 8.0 6.1 LDL Cholesterol Calc 100 mg/dL (Abnormal) Range: 0-99 VLDL Cholesterol Edgardo 25 mg/dL (Normal) Range: 5-40 HDL Cholesterol 52 mg/dL (Normal) Triglycerides 125 mg/dL (Normal) Range: 0-149 Cholesterol, Total 177 mg/dL (Normal) Range: 100-199 27-Exi-808622:29 Metabolic Panel, Comprehensive Comments: PATIENT WAS FASTINGPERFORMED BY: [facility] Pyyzzy3613 [facility] [id number] (98538) ALT (SGPT) 14 [iU]/L (Normal) Range: 0-32 [...] Glucose, Serum 77 mg/dL (Normal) Range: 65-99 48-Men-848013:29 CBC, Platelets & Auto Diff Comments: PATIENT WAS FASTINGPERFORMED BY: [facility] Yjtefn2968 [facility] [id number] (49689) Immature Grans (Abs) 0.0 {x10E3/uL} (Normal) Range: [...] 6.6 {x10E3/uL} (Normal) Range: 3.4-10.8 :29 TSH (47402) Comments: PATIENT WAS FASTINGPERFORMED BY: [facility] [place]6370 [facility] [id number] TSH 2.240 {uIU/mL} (Normal) Range: 0.450-4.500 :29 HGB A1C (44419) Comments: PATIENT WAS FASTINGPERFORMED BY: [facility] [place]6370 [facility] [id number] Hemoglobin A1c 6.7 % (Abnormal) Range: 4.8-5.6 Comments: . Pre-diabetes: 5.7 - 6.4 Diabetes: >6.4 Glycemic control for adults with diabetes: <7.0 74-Gco-620149:23 HGB A1C (10111) Comments: PATIENT NOT FASTINGPERFORMED BY: [facility] [place]6370 [facility] [id number] Hemoglobin A1c 6.4 % (Abnormal) Range: 4.8-5.6 Comments: . Pre-diabetes: 5.7 - 6.4 Diabetes: >6.4 Glycemic control for adults with diabetes: <7.0 :06 Blood Glucose , Office (09524) Blood Glucose , Office 84 (Normal) : Hemoglobin A1c 6.7 % (Abnormal) Comments: PATIENT NOT FASTINGPERFORMED BY: [facility] [place]6370 [facility] [id number] Information: [id number] FEE [id number] 13 Range: 4.8-5.6 Comments: . Pre-diabetes: 5.7 - 6.4 Diabetes: >6.4 Glycemic control for adults with diabetes: <7.0 :13 HgA1C , Office (41568) HgA1C , Office 6.6 % (Normal) Range: 4.6 - 7.1 :07 Blood Glucose , Office (19777) Blood Glucose , Office 97 (Normal) :51 HgA1C , Office (86368) HgA1C , Office 6.9 % (Normal) Range: 4.6 - 7.1 :51 Blood Glucose , Office (32858) Blood Glucose , Office 129 (Normal) :35 Sputum Culture (11308) Comments: PATIENT NOT FASTINGPERFORMED BY: Conservis Dpeumr5852 [place] [id number] Information: [id number] Result 1 RRF (Normal) Comments: Routine respiratory marilin Lower Respiratory Culture Final report (Normal) :10 Rapid Flu (95238 x 2) Comments: neg Influenza A Ag neg (Normal) :31 Vitamin D Hydroxy (64201) Comments: PATIENT WAS FASTINGPERFORMED BY: Conservisrp Hfteac1749 [facility] [place] [id number] Vitamin D, 25-Hydroxy 34.0 ng/mL (Normal) Range: 30.0-100.0 Comments: Vitamin D deficiency has been defined by the [place] ofMedicine and an Endocrine Society practice guideline as alevel of serum 25-OH vitamin D less than 20 ng/mL (1,2).The Endocrine Society went on to further define vitamin Dinsufficiency as a level between 21 and 29 ng/mL (2).1. IOM ([place] of Medicine). 2010. Dietary reference intakes for calcium and D. [place]: The National Academies Press.2. Eleni MF, Lorne NC, Dayron WALTON, et al. Evaluation, treatment, and prevention of vitamin D deficiency: an Endocrine Society clinical practice guideline. JCEM. 2010; 96(7):1911-30. :31 Amylase (54843) Comments: PATIENT WAS FASTINGPERFORMED BY: [employer] [facility] Tuycqm3561 Diehl [facility] HospitalDublin [place] [id number] Amylase, Serum 32 U/L (Normal) Range: 31-124 :31 Lipase (71187) Comments: PATIENT WAS FASTINGPERFORMED BY: [facility]6370 [facility] [id number] Lipase, Serum 47 U/L (Normal) Range: 0-59 :31 LIPID PANEL (76723) Comments: PATIENT WAS FASTINGPERFORMED BY: [facility]6370 [facility] [id number] LDL/HDL Ratio 1.7 {ratio_units} (Normal) Range: 0.0-3.2 [...] Cholesterol, Total 155 mg/dL (Normal) Range: 100-199 3-Bgz-528950:31 TSH (89502) Comments: PATIENT WAS FASTINGPERFORMED BY: [facility]6370 [facility] [id number] TSH 1.140 {uIU/mL} (Normal) Range: 0.450-4.500 9-Qic-697062:31 METABOLIC PANEL, Comments: PATIENT WAS FASTINGPERFORMED BY: [facility]6370 [facility] [id number] Information: [id number] COMPREHENSIVE (37351) ALT (SGPT) 20 [iU]/L (Normal) Range: 0-32 [...] (Normal) Range: 65-99 :12 HgA1C , Office (68654) HgA1C , Office 6.4 % (Normal) Range: 4.6 - 7.1 :21 HgA1C , Office (54987) HgA1C , Office 6.8 % (Normal) Range: 4.6 - 7.1 :21 Blood Glucose , Office (83294) Blood Glucose , Office 122 (Normal) :33 CBC W/Diff, Automated Comments: Test performed at:[facility] Aodksonfcm[address] [place] [address] Absolute Lymph 1.21 {X10_3/ul} (Normal) Range: 0.83-4.51 [...] 4.2-5.4 WBC 6.0 K/mm3 (Normal) Range: 4.4-11.0 17-Iip-547911:33 Comprehensive Metabolic Profil Comments: Test performed at:[facility] Hbpjsvdmfq0793 [place], [place] [address] GAP 8 (Normal) Range: 5-15 CO2 28.0 [...] Comments: Please note revised CREATININE reference range jewvvhsdq24/22/2015. BUN 13 mg/dL (Normal) Range: 7-18 GLU 84 mg/dL (Normal) Range: 70-110 81-Jtu-578742:33 Lipid Profile Comments: Test performed at:[facility] [address] [place] [address] ; non-emergent till apt VLDL [...] 200-240 mg/dL Borderline >240 mg/dL High Risk 42-Mqm-162716:33 Microalb:Creat Ratio,Random UR Comments: Test performed at:[facility] Qfwbgbmebj0639 [facility] [place] [address] MALB:CREAT Test not performed {mg/g_CRE} (Normal) MICROALBUMIN,UR < 5.0 mg/L (Normal) UR CREAT 179.00 mg/dL (Normal) 97-Gvz-930551:33 Thyroid Stim Hormone (TSH) Comments: Test performed at:[facility] [address] [place] [address] TSH 0.84 {uIU/mL} (Normal) Range: 0.358-3.74 35-Fng-784902:33 Vitamin D,25 Hydroxy Comments: Test performed at:[facility] [address] [place] [address] Vitamin D 25-OH 23.5 ng/mL (Normal) Comments: Vitamin D 25(OH) Status Range Deficiency <20 ng/mL (50nmol/L) Insuffciency 20 - 30 ng/mL (50 - 75 nmol/L) Sufficiency 30 - 100 ng/mL (75 - 250 nmol/L) Toxicity >100 ng/mL (>250 nmol/L) 7-Rzm-660556:34 HgA1C , Office (07399) HgA1C , Office 7.0 % (Normal) Range: 4.6 - 7.1 9-Eku-595151:00 CBC W/Diff, Automated Comments: Test performed at:[facility] Jdokpcljrd35[address] [place] [address] Absolute Lymph 2.03 {X10_3/ul} (Normal) [...] 4.2-5.4 WBC 9.1 K/mm3 (Normal) Range: 4.4-11.0 7-Afr-774718:00 CK-MB Quantitative and Index Comments: 'TROP' Serial specimen #1, #2, #3, or #4: 1'CKMB' Serial Specimen #1, #2 or #3? 1Test performed at:[facility] [address] [place] [address] CPKMB 1.7 ng/mL (Normal) Range: 0.0-5.0 Comments: CK-MB and RI Interpretation MB Relative Index Non-AMI <or= 5 NA Indeterminate > 5 <or= 4 AMI > 5 > 4 CPK TOTAL 137 U/L (Normal) Range: 26-192 2-Eyx-918389:00 Myoglobin, Serum Comments: Test performed at:[facility] [address] [place] [address] Myoglobin, Ser 149 ng/mL (Abnormal) Range: 25-58 Comments: Performed at: [facility] LabCoAaron [place] [id number] Director: Jonathan Majano PhD, Phone: [phone] 5-Fbv-033704:00 Troponin-I Comments: 'TROP' Serial specimen #1, #2, #3, or #4: 1'CKMB' Serial Specimen #1, #2 or #3? 1Test performed at:[facility] [address] [place] [address] TROPONIN-I < 0.02 ng/mL (Normal) Comments: TROPONIN-I EXPECTED VALUES <0.05 NEGATIVE 0.06 - 0.59 AT RISK OF FL > OR = 0.60 SUGGEST FL 8-Azd-830921:46 Rapid Flu (68106 x 2) Influenza A Ag n (Normal) 02-Yfg-690399:30 Culture, Wound Comments: Test performed at:[facility] [address] [place] [address] CUW See Note (Normal) Comments: [...] S(NF) indicates non-formulary drug at [facility]. Approval by Infectious Disease Specialist required before non-formulary dr rajani may be ordered and/or dispensed. * CLSI guidelines does not recommend testing of cephalosporins. This interpretation is deduced from Beta- lactam/penicillin results. 95-Fmo-696342:20 WCGLU 81 mg/dL (Normal) Range: 70-110 44-Luw-497093:20 WCLIPID VLDL 34 mg/dL (Normal) Range: 5-40 [...] CHOL 178 mg/dL (Normal) Comments: <200 mg/dL Xesrbrztm080-575 mg/dL Borderline>240 mg/dL High Risk 8-Wtt-303198:50 MUM < 0.80 AU (Normal) Range: 0.00-0.79 Comments: Negative < 0.80Borderline 0.80 - 1.20Positive > 1.20Note: The presence of IgM specific antibody should beinterpreted in conjunction with the patient's clinicalhistory and exposure risk when an acute infection issuspected.Performed at: [address] [id number] Director: Rafita Cruz MD, Phone: [phone] at: [address] [id number] Director: Jj Caballero MD, Phone: [phone] 0-Pbf-487898:50 RUBEOG > 300.0 AU/mL (Normal) Comments: Negative <25.0Equivocal 25.0 - 29.9Positive >29.9Presence of antibodies to Rubeola is presumptive evidenceof immunity except when acute infection is suspected. 9-Kki-150571:50 RUBG > 500.0 {IU/mL} (Normal) Comments: Antibody results Interpretation of Immune Status< 5 IU/ml Presumed Non-immune5 - < 10 IU/ml Equivocal> or = 10 IU/ml Presumed Immune 01-Nov-20139:26 MICROALBUMIN: CREATININE RATIO Comments: PATIENT WAS FASTINGPERFORMED BY: LocBoxRobert Wood Johnson [facility] Hospital at HamiltonWcosvv3348 [facility] [id number] (36684) AND (97119) Microalb/Creat Ratio 3.9 {mg/g_creat} (Normal) Range: 0.0-30.0 Creatinine, Urine 177.5 mg/dL (Normal) Range: 15.0-278.0 Microalbumin, Urine 7.0 ug/mL (Normal) Range: 0.0-17.0 :26 CBC WITH MANUAL DIFF Comments: PATIENT WAS FASTINGPERFORMED BY: [facility] CenterButtonRobert Wood Johnson [facility] Hospital at HamiltonZkusru2573 [facility] [id number] Information: [id number] (60567) Immature Grans (Abs) 0.0 {x10E3/uL} (Normal) Range: [...] PANEL, COMPREHENSIVE Comments: PATIENT WAS FASTINGPERFORMED BY: LabCoRobert Wood Johnson [facility] Hospital at HamiltonCnpgpw0669 [facility] [id number] (81712) ALT (SGPT) 22 [iU]/L (Normal) Range: 0-32 [...] (Abnormal) Range: 65-99 :26 Vitamin D Hydroxy (11389) Comments: PATIENT WAS FASTINGPERFORMED BY: CancerIQ70 MarkadoFormerly [facility] [id number] Vitamin D, 25-Hydroxy 32.9 ng/mL (Normal) Range: 30.0-100.0 Comments: Vitamin D deficiency has been defined by the [place] ofMedicine and an Endocrine Society practice guideline as alevel of serum 25-OH vitamin D less than 20 ng/mL (1,2).The Endocrine Society went on to further define vitamin Dinsufficiency as a level between 21 and 29 ng/mL (2).1. IOM ([place] of Medicine). 2010. Dietary reference intakes for calcium and D. [place]: The National Academies Press.2. Eleni MF, Lorne NC, Dayron WALTON, et al. Evaluation, treatment, and prevention of vitamin D deficiency: an Endocrine Society clinical practice guideline. JCEM. 2010; 96(7):1911-30. :26 LIPID PANEL (57171) Comments: PATIENT WAS FASTINGPERFORMED BY: [facility] Zywhhu0497 [facility] [id number] LDL/HDL Ratio 1.6 {ratio_units} (Normal) Range: 0.0-3.2 LDL Cholesterol Calc 74 mg/dL (Normal) Range: 0-99 HDL Cholesterol 46 mg/dL (Normal) Comments: According to ATP-III Guidelines, HDL-C >59 mg/dL is considered anegative risk factor for CHD. VLDL Cholesterol Edgardo 22 mg/dL (Normal) Range: 5-40 Triglycerides 112 mg/dL (Normal) Range: 0-149 Cholesterol, Total 142 mg/dL (Normal) Range: 100-199 :26 TSH (73005) Comments: PATIENT WAS FASTINGPERFORMED BY: Q.branch [facility] [id number] TSH 1.560 {uIU/mL} (Normal) Range: 0.450-4.500 7-Lqe-037458:02 HgA1C , Office (75073) HgA1C , Office 6.6 % (Normal) Range: 4.6 - 7.1 9-Gbc-462430:41 HgA1C , Office (95357) HgA1C , Office 6.4 % (Normal) Range: 4.6 - 7.1 83-Udf-813166:30 Microscopic Examination Comments: PATIENT WAS FASTINGPERFORMED BY: Polyera6370 [facility] [id number] Bacteria Few (Normal) Mucus Threads Present (Normal) Epithelial Cells (non renal) 0-10 {/hpf} (Normal) Range: 0 - 10 RBC 0-3 {/hpf} (Normal) Range: 0 - 3 WBC 0-5 {/hpf} (Normal) Range: 0 - 5 [id number] LIPID PANEL (75884) Comments: PATIENT WAS FASTINGPERFORMED BY: [id number] [id number] LDL/HDL Ratio 2.3 {ratio_units} (Normal) Range: 0.0-3.2 LDL Cholesterol Calc 103 mg/dL (Abnormal) Range: 0-99 VLDL Cholesterol Edgardo 30 mg/dL (Normal) Range: 5-40 HDL Cholesterol 45 mg/dL (Normal) Comments: According to ATP-III Guidelines, HDL-C >59 mg/dL is considered anegative risk factor for CHD. Cholesterol, Total 178 mg/dL (Normal) Range: 100-199 Triglycerides 148 mg/dL (Normal) Range: 0-149 [id number] Vitamin D Hydroxy (10462) Comments: PATIENT WAS FASTINGPERFORMED BY: Q.branch [facility] [id number] Vitamin D, 25-Hydroxy 35.6 ng/mL (Normal) Range: 30.0-100.0 Comments: Vitamin D deficiency has been defined by the [place] of[place]icine and an Endocrine Society practice guideline as alevel of serum 25-OH vitamin D less than 20 ng/mL (1,2).The Endocrine Society went on to further define vitamin Dinsufficiency as a level between 21 and 29 ng/mL (2).1. IOM ([place] of [employer]). 2010. Dietary reference intakes for calcium and D. [place]: The National Academies Press.2. Eleni MF, Lorne NC, Dayron WALTON, et al. Evaluation, treatment, and prevention of vitamin D deficiency: an Endocrine Society clinical practice guideline. JCEM. 2010; 96(7):1911-30. 14-Qvf-771570:30 URINALYSIS, W/ MICRO (50094) Comments: PATIENT WAS FASTINGPERFORMED BY: Cancer[facility] [place] [id number] Microscopic Examination See below: (Normal) Nitrite, Urine Negative (Normal) Bilirubin Negative (Normal) Urobilinogen,Semi-Qn 0.2 mg/dL (Normal) Range: 0.0-1.9 Occult Blood Negative (Normal) Ketones Negative (Normal) Glucose Negative (Normal) Protein Negative (Normal) WBC Esterase 1+ (Abnormal) Appearance Clear (Normal) Urine-Color Yellow (Normal) pH 5.5 (Normal) Range: 5.0-7.5 Specific [place] 1.017 (Normal) Range: 1.005-1.030 87-Kus-808446:30 CBC WITH MANUAL DIFF Comments: PATIENT WAS FASTINGPERFORMED BY: Polyera6370 MarkadoFormerly [facility] [id number] Information: [id number] (99718) Immature Grans (Abs) 0.0 {x10E3/uL} (Normal) Range: [...] 3.77-5.28 WBC 6.2 {x10E3/uL} (Normal) Range: 3.4-10.8 99-Utu-864722:30 METABOLIC PANEL, COMPREHENSIVE Comments: PATIENT WAS FASTINGPERFORMED BY: [facility]6370 [facility] [id number] (28770) ALT (SGPT) 23 [iU]/L (Normal) Range: 0-32 [...] (Abnormal) Range: 65-99 :35 HgA1C , Office (29642) HgA1C , Office 6.6 % (Normal) Range: 4.6 - 7.1 :41 Thin prep Pap (62462) Comments: Source.............VaginalNo. of containers..01 CYTYC Thin Prep VialPATIENT NOT FASTINGPERFORMED BY: [facility] [address] [id number] Information: [id number] Pathologist provided ICD9: SPRCS (Normal) Comments: 627.3The [...] of hysterectomy.V72.31 ; Routine gynecological examinationGris Moreau Warehouse Logistics Manager (ASCP) :36 VITAMIN B-12 (CYANOCOBALAMIN) Comments: PATIENT WAS FASTINGPERFORMED BY: [facility] [address] [facility]in [place] [id number] (97284) Vitamin B12 628 pg/mL (Normal) Range: 211-946 :36 LIPID PANEL (80214) Comments: PATIENT WAS FASTINGPERFORMED BY: [facility] Hjsiog9857 [facility] [id number] LDL/HDL Ratio 2.2 {ratio_units} (Normal) Range: 0.0-3.2 LDL Cholesterol Calc 87 mg/dL (Normal) Range: 0-99 VLDL Cholesterol Edgardo 27 mg/dL (Normal) Range: 5-40 HDL Cholesterol 39 mg/dL (Abnormal) Comments: According to ATP-III Guidelines, HDL-C >59 mg/dL is considered anegative risk factor for CHD. Cholesterol, Total 153 mg/dL (Normal) Range: 100-199 Triglycerides 137 mg/dL (Normal) Range: 0-149 :36 Vitamin D Hydroxy (72279) Comments: PATIENT WAS FASTINGPERFORMED BY: [facility] Dxkgmo8615 [facility] [id number] Vitamin D, 25-Hydroxy 31.1 ng/mL (Normal) Range: 30.0-100.0 Comments: Vitamin D deficiency has been defined by the [place] of[place]icine and an Endocrine Society practice guideline as alevel of serum 25-OH vitamin D less than 20 ng/mL (1,2).The Endocrine Society went on to further define vitamin Dinsufficiency as a level between 21 and 29 ng/mL (2).1. IOM ([place] of [employer]). 2010. Dietary reference intakes for calcium and D. [place]: The National Academies Press.2. Eleni MF, Lorne MORTON, Dayron WALTON, et al. Evaluation, treatment, and prevention of vitamin D deficiency: an Endocrine Society clinical practice guideline. JCEM. 2010; 96(7):1911-30. :36 TSH (82098) Comments: PATIENT WAS FASTINGPERFORMED BY: [facility] [place]6370 [facility] [id number] TSH 1.510 {uIU/mL} (Normal) Range: 0.450-4.500 :36 MICROALBUMIN: CREATININE RATIO Comments: PATIENT WAS FASTINGPERFORMED BY: [facility] [place]6370 [facility] [id number] (03609) AND (17892) Creatinine, Urine 212.6 mg/dL (Normal) Range: 15.0-278.0 Microalb/Creat Ratio 2.1 {mg/g_creat} (Normal) Range: 0.0-30.0 Microalbumin, Urine 4.5 ug/mL (Normal) Range: 0.0-17.0 :36 METABOLIC PANEL, Comments: PATIENT WAS FASTINGPERFORMED BY: LocBoxRobert Wood Johnson University Hospital at HamiltonPonscr8345 [facility] [id number] Information: [id number] [facility] (41285) ALT (SGPT) 23 [iU]/L (Normal) Range: 0-32 [...] Glucose, Serum 160 mg/dL (Abnormal) Range: 65-99 21-Ujy-65064:34 BILAT SCRN DIGITAL & CAD Radiology Report [...] Mckenzie M.D.April 12, 2012 at 10:58:16 AM [id number] Signed GP/GP If you are the referring physician and would like to consult w [facility] theradiologist who provided this interpretation, please contact Sudha Pritchett at [phone]. If this radiologist is unavailable, youwill be directed to another radiologist to assist. If you are a patient with a question regarding this report, pleasecontactyour referring physician directly. Professional Interpretation Provided By: [employer], Phone , These documents contain legally protected [...] 0934 by Steffen Mckenzie MDranscribed on 04/12/12 110 by ITS IMPORTSign by Leobardo Mckenzie MD on 04/12/12 1103 Sign by: Leobardo Mckenzie MD 42-Vgv-88738:34 DEXA BONE DENSITY STUDY (HP) Radiology Report [...] Mckenzie M.D.April 12 2 at 12:31:08 PM [phone] Signed GP/GP If you are the referring physician and would like to consult with theradiologist who provided this interpretation, please contact Rashard thompson M.D. at [phone]. If this radiologist is unavailable, youwill be directed to another radiologist to assist. If you are a patient with a question regarding this report, pleasecontactyour refer ring physician directly. Professional Interpretation Provided By: [employer], Phone , These documents contain legally protected [...] destructionofthese documents. Dictated on 04/12/12 1021 by Ruben Kapoorribed on 04/12/12 1234 by ITS IMPORTSign by Leobardo Mckenzie MD on 04/12/12 1235 Sign by: Leobardo Mckenzie MD 2-Mpd-646639:25 HPV automatic Comments: Source.............Cervical;EndocervicalNo. of containers..01 CYTYC Thin Prep VialPATIENT NOT FASTINGPERFORMED BY: WB [facility] Lenny [place] [id number] BY: Madi Hodge (20313) Alicia Feldman [place] [id number] Information: [id number] HPV, high-risk Negative Comments: This high-risk HPV [...] of hysterectomy.V72.31 ; Routine gynecological examinationIvanna Steven Warehouse Logistics Manager (ASCP) :37 Hemoglobin Glyclated (HGB A1C) Comments: PATIENT WAS FASTINGPERFORMED BY: [facility] Tchskk3763 [facility] [id number] (78023) Hemoglobin A1c 7.1 % (Abnormal) Range: 4.8-5.6 Comments: . Increased risk for diabetes: 5.7 - 6.4 Diabetes: >6.4 Glycemic control for adults with diabetes: <7.0 :37 TSH (36046) Comments: PATIENT WAS FASTINGPERFORMED BY: [facility] Ggebgz0655 [facility] [id number] TSH 1.790 {uIU/mL} (Normal) Range: 0.450-4.500 :37 CBC WITH MANUAL DIFF Comments: PATIENT WAS FASTINGPERFORMED BY: LocBoxRobert Wood Johnson [facility] Hospital at HamiltonMryehn8537 [facility] [id number] Information: [id number] (25137) Immature Grans (Abs) 0.0 {x10E3/uL} (Normal) Range: [...] CREATININE RATIO Comments: PATIENT WAS FASTINGPERFORMED BY: LocBoxRobert Wood Johnson [facility] Hospital at HamiltonAivaxe4019 [facility] [id number] (95228) AND (08093) Microalb/Creat Ratio 0.8 {mg/g_creat} (Normal) Range: 0.0-30.0 Microalbumin, Urine 1.4 ug/mL (Normal) Range: 0.0-17.0 Creatinine, Urine 183.1 mg/dL (Normal) Range: 15.0-278.0 :37 LIPID PANEL (14489) Comments: PATIENT WAS FASTINGPERFORMED BY: LocBoxRobert Wood Johnson [facility] Hospital at HamiltonHlpsvf2754 [facility] [id number] LDL/HDL Ratio 1.4 {ratio_units} (Normal) Range: 0.0-3.2 [...] PANEL, COMPREHENSIVE Comments: PATIENT WAS FASTINGPERFORMED BY: LocBoxRobert Wood Johnson [facility] Hospital at HamiltonEivmet8413 [facility] [id number] (34887) ALT (SGPT) 26 [iU]/L (Normal) Range: 0-40 [...] (Abnormal) Range: 65-99 :37 Vitamin D Hydroxy (30162) Comments: PATIENT WAS FASTINGPERFORMED BY: [facility]70 [facility] [id number] Vitamin D, 25-Hydroxy 42.1 ng/mL (Normal) Range: 30.0-100.0 Comments: Vitamin D deficiency has been defined by the [place] of[place]icine and an Endocrine Society practice guideline as alevel of serum 25-OH vitamin D less than 20 ng/mL (1,2).The Endocrine Society went on to further define vitamin Dinsufficiency as a level between 21 and 29 ng/mL (2).1. IOM ([place] of [place]). 2010. Dietary reference intakes for calcium and D. [place]: The National Academies Press.2. Eleni MF, Lorne MORTON, Dayron WALTON, et al. Evaluation, treatment, and prevention of vitamin D deficiency: an Endocrine Society clinical practice guideline. JCEM. 2010; 96(7):1911-30. :37 VITAMIN B-12 (CYANOCOBALAMIN) Comments: PATIENT WAS FASTINGPERFORMED BY: ConservisSierra Vista HospitalIdaqei3689 [facility] [id number] (50989) Vitamin B12 1841 pg/mL (Abnormal) Range: 211-946 [...] Signed:Marva HunterFebruary 11, 2012 at 3:53:06 PM [id number] Signed MV/MV If you are the referring physician and would like to consult with theradiologist who provided this interpretation, please co ntact Jackie Sierra M.D. at . If this radiologist is unavailable, youwillbe directed to another radiologist to assist. If you are a patient with a question regarding this report, pleas econtactyour referring physician directly. Professional Interpretation Provided By: [employer], Phone , These documents contain legally protected [...] 1 404 by Naty SIERRA MDcribed on 02/11/12 1611 by ITS IMPORTSign by JACKIE SIERRA MD on 02/11/12 1612 Sign by: JACKIE SIERRA MD :22 CRE GFRAA 95 mL/min (Normal) GFR 78 mL/min (Normal) CREAT 0.8 mg/dL (Normal) Range: 0.6-1.0 :42 MICROALBUMIN: CREATININE RATIO Comments: PATIENT WAS FASTINGPERFORMED BY: LocBox Tgaify3091 [facility] [id number] (46518) AND (04848) Creatinine, Urine 87.6 mg/dL (Normal) Range: 15.0-278.0 Microalb/Creat Ratio 1.1 {mg/g_creat} (Normal) Range: 0.0-30.0 Microalbumin, Urine 1.0 ug/mL (Normal) Range: 0.0-17.0 :42 VITAMIN B-12 (CYANOCOBALAMIN) Comments: PATIENT WAS FASTINGPERFORMED BY: LocBoxRobert Wood Johnson [facility] Hospital at HamiltonWvcckq9442 [facility] [id number] (49970) Vitamin B12 1740 pg/mL (Abnormal) Range: 211-946 :42 CBC WITH MANUAL DIFF Comments: PATIENT WAS FASTINGPERFORMED BY: LocBoxRobert Wood Johnson [facility] Hospital at HamiltonKgotzi4909 [facility] [id number] Information: [id number] (31220) Immature Grans (Abs) 0.0 {x10E3/uL} (Normal) Range: [...] (Normal) Range: 4.0-10.5 :42 Vitamin D Hydroxy (31323) Comments: PATIENT WAS FASTINGPERFORMED BY: [employer] [facility] [id number] Vitamin D, 25-Hydroxy 32.2 ng/mL (Normal) Range: 30.0-100.0 Comments: Vitamin D deficiency has been defined by the [place] ofReg[facility] and an Endocrine Society practice guideline as alevel of serum 25-OH vitamin D less than 20 ng/mL (1,2).The Endocrine Society went on to further define vitamin Dinsufficiency as a level between 21 and 29 ng/mL (2).1. IOM ([place] of [place]). 2010. Dietary reference intakes for calcium and D. [place]: The National Academies Press.2. Eleni MF, Lorne NC, Dayron WALTON, et al. Evaluation, treatment, and prevention of vitamin D deficiency: an Endocrine Society clinical practice guideline. JCEM. 2010; 96(7):1911-30. :42 LIPID PANEL (54953) Comments: PATIENT WAS FASTINGPERFORMED BY: Gear EnergyDublin [place] [id number] LDL/HDL Ratio 2.2 {ratio_units} (Normal) Range: 0.0-3.2 LDL Cholesterol Calc 92 mg/dL (Normal) Range: 0-99 VLDL Cholesterol Edgardo 31 mg/dL (Normal) Range: 5-40 HDL Cholesterol 41 mg/dL (Normal) Comments: According to ATP-III Guidelines, HDL-C >59 mg/dL is considered anegative risk factor for CHD. Triglycerides 155 mg/dL (Abnormal) Range: 0-149 Cholesterol, Total 164 mg/dL (Normal) Range: 100-199 44-Mlg-99502:42 METABOLIC PANEL, COMPREHENSIVE Comments: PATIENT WAS FASTINGPERFORMED BY: TARAS [facility] Jovtkj1708 [facility] [id number] (82874) ALT (SGPT) 20 [iU]/L (Normal) Range: 0-32 [...] Glucose, Serum 148 mg/dL (Abnormal) Range: 65-99 28-Voj-97086:42 TSH (51244) Comments: PATIENT WAS FASTINGPERFORMED BY: LocBoxRobert Wood Johnson [facility] Hospital at HamiltonSbhujz1889 [facility] [id number] TSH 2.140 {uIU/mL} (Normal) Range: 0.450-4.500 1-Ebb-598926:41 Urinalysis, Office (16751) UA - BILIRUBIN Negative (Normal) UA - BLOOD Negative (Normal) UA - GLUCOSE Negative (Normal) UA - KETONES Negative mg/dL (Normal) UA - LEUKOCYTE ESTERASE Negative (Normal) UA - NITRITE Negative (Normal) UA - PH 8.5 (Normal) UA - PROTEIN 30 mg/dL (Normal) UA - SPECIFIC GRAVITY 1.020 (Normal) URINE UROBILINGN SUNNY TIMED Normal mg/dL (Normal) 78-Shx-722161:08 CULTURE, SPUTUM (63231) Comments: PATIENT NOT FASTINGPERFORMED BY: [facility] Uvlnzp9934 [facility] [id number] Information: SRC:SPT ADD [id number] Result 1 RRF (Normal) Comments: Routine respiratory [...] {uIU/mL} (Normal) Range: 0.358-3.74 :24 VIT D,25 03268 37.4 ng/mL (Normal) Range: 30.0-100.0 Comments: Vitamin D deficiency has been defined by the [place] of[place]icine and an Endocrine Society practice guideline as alevel of serum 25-OH vitamin D less than 20 ng/mL (1,2).The Endocrine Society went on to further define vitamin Dinsufficiency as a level between 21 and 29 ng/mL (2).1. IOM ([place] of [place]). 2011. Dietary reference intakes for calcium and D. [place]: The National Academies Press.2. Eleni MF, Lorne NC, Alisha-Andre WALTON, et al. Evaluation, treatment, and prevention of vitamin D deficiency: an Endocrine Society clinical practice guideline. JCEM. 2010; 96(7): 1911-30.Performed at: [address] [id number] Director: Leigh Palomo MD, Phone: [phone] 5-Duc-620977:43 Blood Glucose , Office (59523) Blood Glucose , Office 141 (Normal) 71-Reo-75300:08 BILAT SCRN DIGITAL & CAD Radiology Report [...] 04/07/11 0925 by Jonah HUTCHINSON,CristinorieleTranscribed on 04/07/11 103 by ITS IMPORTSign by Jonah HUTCHINSON,Leobardo on 04/07/111031 Sign by: Leobardo Mckenzie MD 96-Qzw-396291:03 Rapid Strep Test, Office (08336) Comments: neg Rapid Strep Test, Office Negative (Normal) 47-Wsr-721928:48 MEHREEN CULTURE-OTHER (32573) Comments: PATIENT NOT FASTINGPERFORMED BY: [facility] Zutzzo2821 [facility] [id number] Information: SRC:ANTONIOT [id number] Result 1 RRF (Normal) Comments: Routine respiratory marilin Upper Respiratory Culture Final report (Normal) 99-Avg-243225:37 Rapid Strep Test, Office (71390) Rapid Strep Test, Office Negative (Normal) 41-Kls-515900:05 Rapid Flu (28386 x 2) Influenza A Ag negative (Normal) :18 MICROALBUMIN: CREATININE RATIO Comments: PATIENT WAS FASTINGPERFORMED BY: [facility] Ypygjs0903 [facility] [id number] (31490) AND (29898) Microalb/Creat Ratio 2.4 {mg/g_creat} (Normal) Range: 0.0-30.0 Microalbumin, Urine 4.6 ug/mL (Normal) Range: 0.0-17.0 Creatinine, Urine 189.1 mg/dL (Normal) Range: 15.0-278.0 :18 CBC WITH MANUAL DIFF Comments: PATIENT WAS FASTINGPERFORMED BY: LabCoRobert Wood Johnson University Hospital at HamiltonRsxxyl2064 [facility] [id number] Information: [id number] (89435) Immature Grans (Abs) 0.0 {x10E3/uL} (Normal) Range: [...] PANEL, COMPREHENSIVE Comments: PATIENT WAS FASTINGPERFORMED BY: LabCoRobert Wood Johnson University Hospital at HamiltonFawryv6028 [facility] [id number] (60105) ALT (SGPT) 21 [iU]/L (Normal) Range: 0-40 [...] Glucose, Serum 143 mg/dL (Abnormal) Range: 65-99 30-Jmq-51331:18 Vitamin D Hydroxy (94083) Comments: PATIENT WAS FASTINGPERFORMED BY: LabCoRobert Wood Johnson University Hospital at HamiltonByddwa6653 [facility] [id number] Vitamin D, 25-Hydroxy 38.2 ng/mL (Normal) Range: 32.0-100.0 Comments: Recent studies consider the lower limit of 32.0 ng/mL to be athreshold for optimal health.Tom SOLIS. J Nutr. 2004;135(2):317-22. :18 LIPID PANEL (02694) Comments: PATIENT WAS FASTINGPERFORMED BY: LocBoxRobert Wood Johnson University Hospital at HamiltonAyuxeo4875 [facility] [id number] LDL Cholesterol Calc 69 mg/dL (Normal) Range: 0-99 LDL/HDL Ratio 1.7 {ratio_units} (Normal) Range: 0.0-3.2 HDL Cholesterol 40 mg/dL (Normal) Comments: According to ATP-III Guidelines, HDL-C >59 mg/dL is considered anegative risk factor for CHD. VLDL Cholesterol Edgardo 37 mg/dL (Normal) Range: 5-40 Cholesterol, Total 146 mg/dL (Normal) Range: 100-199 Triglycerides 184 mg/dL (Abnormal) Range: 0-149 :18 TSH (12300) Comments: PATIENT WAS FASTINGPERFORMED BY: LabCoRobert Wood Johnson [facility] Hospital at HamiltonQtwgdc9596 [facility] [id number] TSH 1.380 {uIU/mL} (Normal) Range: 0.450-4.500 :58 HgA1C , Office (03516) HgA1C , Office 6.4 % (Normal) Range: 4.6 - 7.1 :58 Blood Glucose , Office (79697) Blood Glucose , Office 146 (Normal) 94-Ngx-780996:43 L/S SPINE,MIN 4 VIEWS (MT) Radiology Report See Note (Normal) Comments: Exam Number: [id number] CLINICAL:The patient is a 59-year-old woman with [...] ESTElectronically Signed PM/PM As part of our Supply Assistant Program, we request that surgical orpathologic correlation, or any additional supportive or discordantmedical history, laboratory or imaging studies be forwarded [facility], attention: Peer ReviewCoordinator. , , [address], [address] [place] [address]. Reported By: CHASTITY RETANA M.D. 11-Ach-991767:28 Urinalysis, Office (70775) UA - BILIRUBIN Negative (Normal) UA - BLOOD Negative (Normal) UA - GLUCOSE Negative (Normal) UA - KETONES Negative mg/dL (Normal) UA - LEUKOCYTE ESTERASE Negative (Normal) UA - NITRITE Negative (Normal) UA - PH 6.0 (Normal) UA - PROTEIN Negative mg/dL (Normal) UA - SPECIFIC GRAVITY 1.025 (Normal) URINE UROBILINGN SUNNY TIMED 2 mg/dL (Normal) 45-Utv-627530:46 Thin prep Pap (55656) Comments: Source.............VaginalLMP / Prev Treat...HystNo. of containers..01 CYTYC Thin Prep VialPERFORMED BY: [facility] [address] [id number] Information: [id number] Note: PAPSMR (Normal) Comments: The Pap smear [...] history of hysterectomy.V72.31 ; Routine gynecological exami [facility] Luis Warehouse Logistics Manager (ASCP) 03-Bmb-611517:06 Vitamin D Hydroxy (04964) Comments: PATIENT WAS FASTINGPERFORMED BY: Polyera6370 [facility]hl [facility]EC[facility] [id number] Vitamin D, 25-Hydroxy 26.5 ng/mL (Abnormal) Range: 32.0-100.0 Comments: Recent studies consider the lower limit of 32.0 ng/mL to be athreshold for optimal health.Tom SOLIS. J Nutr. 2004;135(2):317-22. 31-Qka-580302:06 LIPID PANEL (15375) Comments: PATIENT WAS FASTINGPERFORMED BY: Polyera6370 MarkadoFormerly [facility] [id number] LDL Cholesterol Calc 57 mg/dL (Normal) Range: 0-99 LDL/HDL Ratio 1.4 {ratio_units} (Normal) Range: 0.0-3.2 VLDL Cholesterol Edgardo 32 mg/dL (Normal) Range: 5-40 HDL Cholesterol 41 mg/dL (Normal) Comments: According to ATP-III Guidelines, HDL-C >59 mg/dL is considered anegative risk factor for CHD. Triglycerides 162 mg/dL (Abnormal) Range: 0-149 Cholesterol, Total 130 mg/dL (Normal) Range: 100-199 58-Oej-204541:06 METABOLIC PANEL, Comments: PATIENT WAS FASTINGPERFORMED BY: [employer]era6370 [facility] [id number] Information: ADD [id number] AND DRAW FEE 99 5485 COMPREHENSIVE (99871) ALT (SGPT) 23 [iU]/L (Normal) Range: 0-40 [...] (Abnormal) Range: 65-99 :20 HgA1C , Office (34538) HgA1C , Office 6.8 % (Normal) Range: 4.6 - 7.1 :20 Blood Glucose , Office (54534) Blood Glucose , Office 129 (Normal) :38 Rapid Strep Test, Office (04669) Rapid Strep Test, Office Negative (Normal) :09 HgA1C , Office (76343) HgA1C , Office 6.9 % (Normal) Range: 4.6 - 7.1 :09 Blood Glucose , Office (99236) Blood Glucose , Office 127 (Normal) :14 METABOLIC PANEL, COMPREHENSIVE Comments: PATIENT WAS FASTINGPERFORMED BY: [facility]Box Irerqo4442 [facility] [id number] (78434) Alkaline Phosphatase, S 60 [iU]/L (Normal) Range: [...] MANUAL DIFF Comments: PATIENT WAS FASTINGPERFORMED BY: [facility] Fsnpso7191 [facility] [id number] Information: [id number] (29268) Baso (Absolute) 0.0 {x10E3/uL} (Normal) Range: 0.0-0.2 [...] URINE QUANT Comments: PATIENT WAS FASTINGPERFORMED BY: [facility]6370 [facility] [id number] (93527) Microalb/Creat Ratio <.8 {mg/g_creat} (Normal) Range: 0.0-30.0 Microalbumin, Urine <1.0 ug/mL (Normal) Range: 0.0-17.0 Creatinine, Urine 124.3 mg/dL (Normal) Range: 15.0-278.0 :14 TSH (18394) Comments: PATIENT WAS FASTINGPERFORMED BY: [facility] Vtedoo8838 [facility] [id number] TSH 2.150 {uIU/mL} (Normal) Range: 0.450-4.500 Comments: Effective July 22, 2009, TSH reference interval for11 - 19 years will be changing to: 0.450 - 4.500 uIU/mLReference interval for all other ages will NOT be affected. 77-Rgd-90848:14 Vitamin D Hydroxy (39704) Comments: PATIENT WAS FASTINGPERFORMED BY: [facility] Pdfrfw9166 [facility] [id number] Vitamin D, 25-Hydroxy 26.6 ng/mL (Abnormal) Range: 32.0-100.0 Comments: Recent studies consider the lower limit of 32.0 ng/mL to be athreshold for optimal health.Tom SOLIS. J Nutr. 2004;135(2):317-22. :14 LIPID PANEL (77713) Comments: PATIENT WAS FASTINGPERFORMED BY: [employer] Vbyrjh1753 [facility] [id number] HDL Cholesterol 42 mg/dL (Normal) Comments: According to ATP-III Guidelines, HDL-C >59 mg/dL is considered anegative risk factor for CHD. LDL Cholesterol Calc 100 mg/dL (Abnormal) Range: 0-99 LDL/HDL Ratio 2.4 {ratio_units} (Normal) Range: 0.0-3.2 Triglycerides 172 mg/dL (Abnormal) Range: 0-149 VLDL Cholesterol Edgardo 34 mg/dL (Normal) Range: 5-40 Cholesterol, Total 176 mg/dL (Normal) Range: 100-199 42-Eob-229138:07 HgA1C , Office (70867) HgA1C , Office 6.1 % (Normal) Range: 4.6 - 7.1 :07 Blood Glucose , Office (75679) Blood Glucose , Office 232 (Normal) 62-Wnx-14940:25 Lower Respiratory Culture Comments: Clinical Information: SRC:SP PERFORMED BY: [facility]6370 [facility] [id number] Lower Respiratory Culture Final report (Normal) Result 1 RRF (Normal) Comments: Routine respiratory marilin :00 Influenza A, H1N1, RT PCR Comments: Clinical Information: SRC:NL PERFORMED BY: [place] 2657470 [facility] [id number] Subtype Novel H1N1 by Negative (Normal) PCR Type Influenza A by Negative (Normal) PCR Viral Final report Comments: PERFORMED BY: [address] [id number] :00 Culture,Rapid,Influen (Normal) Comments: Negative:No Influenza A or B detected. za 31-Uya-046228:29 CHEST, PA AND LATERAL (MT) Radiology Report See Note (Normal) Comments: Exam Number: [id number] CLINICAL:58-year-old woman with cough and shortness of [...] cardiopulmonary process. Reported By: ROSEMARIE ROBBINS M.D. 11-Gih-983607:45 Rapid Strep Test, Office (45026) Comments: done Rapid Strep Test, Office Negative (Normal) 17-Psw-542757:32 Rapid Flu (23462 x 2) Comments: done INFLUENZA IMMUNOASSY negative (Normal) DIRECT OPTICAL OBSERV :00 FLU A+B DIRECT See Note (Normal) Comments: Negative test results should be confirmed by culture. Order Rapid Viral Culture for Influenzae A+B (238833) if clinically indicated. INFLUENZA ANTIGEN,DIRECT Presumptive NEGATIVE for Influenza A/B Antigen (See Note) 13-Hzu-461978:04 METABOLIC PANEL, COMPREHENSIVE Comments: PATIENT WAS FASTINGPERFORMED BY: [place] [id number] [facility] [id number] (20300) A/G Ratio 1.6 (Normal) Range: 1.1-2.5 Albumin, [...] Sodium, Serum 141 mmol/L (Normal) Range: 135-145 69-Jft-580212:04 MICROALBUMIN: CREATININE RATIO Comments: PATIENT WAS FASTINGPERFORMED BY: [facility]Robert [facility] HamiltonMbcqsq3406 [facility] [id number] ([id number]) AND (37353) Creatinine, Urine 124.0 mg/dL (Normal) Range: 15.0-278.0 Microalb/Creat Ratio 1.5 {ug/mg_creat} (Normal) Range: 0.0-30.0 Microalbumin, Urine 1.9 ug/mL (Normal) Range: 0.0-17.0 :04 LIPID PANEL (99717) Comments: PATIENT WAS FASTINGPERFORMED BY: LocBox Crquxb7915 [facility] [id number] Cholesterol, Total 155 mg/dL (Normal) Range: 100-199 HDL Cholesterol 44 mg/dL (Normal) Comments: According to ATP-III Guidelines, HDL-C >59 mg/dL is considered anegative risk factor for CHD. LDL Cholesterol Calc 89 mg/dL (Normal) Range: 0-99 LDL/HDL Ratio 2.0 {ratio_units} (Normal) Range: 0.0-3.2 Triglycerides 109 mg/dL (Normal) Range: 0-149 VLDL Cholesterol Edgardo 22 mg/dL (Normal) Range: 5-40 :04 Vitamin D Hydroxy (58295) Comments: PATIENT WAS FASTINGPERFORMED BY: [facility] Yjdzda2054 [facility] [id number] Vitamin D, 25-Hydroxy 24.9 ng/mL (Abnormal) Range: 32.0-100.0 Comments: Recent studies consider the lower limit of 32.0 ng/mL to be athreshold for optimal health.Tom SOLIS. J Nutr. 2004;135(2):317-22. :04 C-REACTIVE PROTEIN (32800) Comments: PATIENT WAS FASTINGPERFORMED BY: [facility] Xtcwif6006 [facility] [id number] C-Reactive Protein, Quant 4.4 mg/L (Normal) Range: 0.0-4.9 56-Qpb-522123:04 CBC WITH MANUAL DIFF (43323) Comments: PATIENT WAS FASTINGClinical Information: ADD DRAW FEE 256896 ADD J 58487 PERFORMED BY: [facility] Tbyung8240 [facility] [id number] Baso (Absolute) 0.1 {x10E3/uL} (Normal) Range: 0.0-0.2 [...] 11.7-15.0 WBC 5.0 {x10E3/uL} (Normal) Range: 4.0-10.5 92-Aep-308010:04 TSH (34072) Comments: PATIENT WAS FASTINGPERFORMED BY: LabCoRobert [facility] at HamiltonOkgfbi8145 [facility] [id number] TSH 1.151 {uIU/mL} (Normal) Range: 0.450-4.500 56-Vvk-638512:00 HgA1C , Office (37846) HgA1C , Office 6.2 % (Normal) Range: 4.6 - 7.1 98-Hmr-543033:00 Blood Glucose , Office (32790) Blood Glucose , Office 132 (Normal) 09-Izg-369120:39 ABDOMEN WITH IV CONTRAST Radiology Report See Note (Normal) Comments: Exam Number: [id number] CT ABDOMEN WITH CONTRAST CLINICAL STATEMENTRight upper [...] anincidental adenoma. Reported By: EDILIA WHEELER M.D. 41-Ksi-335112:38 CHEST WITH CONTRAST Radiology Report See Note (Normal) Comments: Exam Number: [id number] CT OF THE CHEST WITH CONTRAST. STATEMENTCough, [...] mediastinal lymphadenopathy. Reported By: EDILIA WHEELER M.D. 04-Dnq-047564: ZEESHAN 35 U/L (Normal) Comments: LIVER FUNCTION: PLEASE CALL DR CHEN, FARM CONSULTANT FOR DR CHRISTINA. 46 Range: 25-115 28-Qbx-103417: C-REACTIVE PROT 13.74 mg/L (Abnormal) Comments: LIVER FUNCTION: PLEASE CALL DR CHEN, FARM CONSULTANT FOR DR CHRISTINA. 46 Range: 0.0-6.0 Comments: [...] 47-70 WBC 5.6 K/mm3 (Normal) Range: 4.4-11.0 23-Avk-678383:46 COMP METABOLIC Comments: LIVER FUNCTION: PLEASE CALL DR CHEN, FARM CONSULTANT FOR DR CHRISTINA. A/G 1.2 {RATIO} (Normal) [...] T PROT 7.4 g/dL (Normal) Range: 6.4-8.2 28-Btk-037153:46 D-DIMER QUANT <200 ng/mL (Normal) Comments: NORMAL D-Dimer level indicates no DVT or PE. RESULTS CALLED TO DR CHEN 09/21/08 1704 RAD HOOD.REPORT READ BACK BY SAME . 44-Mwa-590248:46 ESR SED RATE 29 mm/h (Normal) Range: 0-30 :46 LIPASE 239 U/L (Normal) Comments: LIVER FUNCTION: PLEASE CALL DR CHEN, FARM CONSULTANT FOR DR CHRISTINA. Range: 114-286 87-Otf-690877:12 HgA1C , Office (40166) HgA1C , Office 6.1 % (Normal) Range: 4.6 - 7.1 40-Aie-518235:12 Blood Glucose , Office (53979) Blood Glucose , Office 116 (Normal) 78-Bya-830764:48 Urine Culture,Comprehensive Comments: Clinical Information: SRC:UR PERFORMED BY: [facility]CoRobert [facility] at HamiltonXnwohd5752 [facility] [id number] Result 1 MUG (Normal) Comments: Mixed urogenital qqkim465 Colonies/mL Urine Culture,Comprehensive Final report (Normal) 50-Ovw-611402:31 L/S SPINE,MIN 4 VIEWS (MT) Radiology Report See Note (Normal) Comments: Exam Number: [id number] LUMBAR SPINE, 5 VIEWS CLINICAL STATEMENTFollow up bone density study, question compression of L5. COMPARISONBone Dexatometry May 03, 2008. 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 Vertebral body height andalignment appears maintained. Multilevel mild degenerative discchanges are present throughout the lumbar spine with end plateosteophyte formation present. There is mini mal concavity of the F3popxvoom end plate likely secondary to degenerative change [...] position orspasm. Reported By: EDILIA WHEELER M.D. 91-Vkh-01854:59 METABOLIC PANEL, COMPREHENSIVE Comments: PATIENT WAS FASTINGPERFORMED BY: [facility] [place]6370 [facility] [id number] (05321) A/G Ratio 1.4 (Normal) Range: 1.1-2.5 Albumin, [...] Total 3.0 g/dL (Normal) Range: 1.5-4.5 If -Nepalese >59 mL/min/1.73 Comments: Note: Persistent reduction for [...] Glucose, Serum 136 mg/dL (Abnormal) Range: 65-99 26-Eei-61709:59 CBC WITH MANUAL DIFF (48882) Comments: PATIENT WAS FASTINGClinical Information: ADD DRAW FEE 134763 ADD J 44658 PERFORMED BY: [facility] Mfopld0125 [facility] [id number] Baso (Absolute) 0.0 {x10E3/uL} (Normal) Range: 0.0-0.2 [...] FUNCTION PANEL Comments: PATIENT WAS FASTINGPERFORMED BY: LocBoxRobert [facility] Johnson [facility] at HamiltonTotesl6405 [facility] [id number] (93972) Bilirubin, Direct 0.09 mg/dL (Normal) Range: 0.00-0.40 :59 LIPID PANEL (98305) Comments: PATIENT WAS FASTINGPERFORMED BY: [facility] Mwoqvf0532 [facility] [id number] Cholesterol, Total 156 mg/dL (Normal) Range: 100-199 HDL Cholesterol 43 mg/dL (Normal) Comments: According to ATP-III Guidelines, HDL-C >59 mg/dL is considered anegative risk factor for CHD. LDL Cholesterol Calc 77 mg/dL (Normal) Range: 0-99 LDL/HDL Ratio 1.8 {ratio_units} (Normal) Range: 0.0-3.2 Triglycerides 180 mg/dL (Abnormal) Range: 0-149 VLDL Cholesterol Edgardo 36 mg/dL (Normal) Range: 5-40 03-Osj-666563:27 Urinalysis, Office (90761) UA - BILIRUBIN Negative (Normal) UA - [...] Report See Note (Normal) Comments: Exam Number: [id number] BONE DENSITOMETRY HISTORYOsteopenia. TECHNIQUE Bone densitometry of [...] normal limits. Reported By: CHASTITY RETANA M.D. 60-Ovb-82158:35 AORTA ULTRASOUND () Radiology Report See Note (Normal) Comments: Exam Number: [id number] ULTRASOUND OF ABDOMINAL AORTA HISTORYFamily history of [...] in size. Reported By: CHASTITY RETANA M.D. 22-Ocb-046339:06 URINE MEHREEN CULTURE-SUNNY COL Comments: PATIENT NOT FASTINGClinical Information: SRC:UR ADD [id number] PERFORMED BY: LabCoRobert [facility] at HamiltonZkyekc1243 [facility] [id number] COUNT (99329) Result 1 Proteus mirabilis Comments: 2,000 Colonies/mL [...] PATIENT WAS FASTINGClinical Information: ADD DRAW FEE 826182 ADD J 58646 PERFORMED BY: [facility]keebleFormerly [facility] [id number] (31918) Albumin, Serum 4.0 g/dL (Normal) Range: 3.5-5.5 Alkaline Phosphatase, S 91 [iU]/L (Normal) Range: 25-150 ALT (SGPT) 18 [iU]/L (Normal) Range: 0-40 AST (SGOT) 21 [iU]/L (Normal) Range: 0-40 Bilirubin, Direct 0.11 mg/dL (Normal) Range: 0.00-0.40 Bilirubin, Total 0.4 mg/dL (Normal) Range: 0.1-1.2 Protein, Total, Serum 6.8 g/dL (Normal) Range: 6.0-8.5 :19 LIPID PANEL (62468) Comments: PATIENT WAS FASTINGPERFORMED BY: [facility]70 [facility]Former[facility] [id number] Cholesterol, Total 159 mg/dL (Normal) Range: 100-199 HDL Cholesterol 41 mg/dL (Normal) Range: 40-59 Comments: EFFECTIVE APRIL 30, 2008 the reference interval for HDL-C will be changing to: >39 mg/dL LDL Cholesterol Calc 80 mg/dL (Normal) Range: 0-99 LDL/HDL Ratio 2.0 {ratio_units} (Normal) Range: 0.0-3.2 Triglycerides 192 mg/dL (Abnormal) Range: 0-149 VLDL Cholesterol Edgardo 38 mg/dL (Normal) Range: 5-40 19-Qvl-024531:08 Urinalysis, Office (36640) Comments: done km UA - BILIRUBIN Negative (Normal) UA - BLOOD Negative (Normal) UA - GLUCOSE Negative (Normal) UA - KETONES Negative mg/dL (Normal) UA - LEUKOCYTE ESTERASE Small (Normal) UA - NITRITE Negative (Normal) UA - PH 6.0 (Normal) UA - PROTEIN Negative mg/dL (Normal) UA - SPECIFIC GRAVITY 1.015 (Normal) URINE UROBILINGN SUNNY TIMED Normal mg/dL (Normal) 59-Deu-60266:25 HgA1C , Office (43099) HgA1C , Office 5.7 % (Normal) Range: 4.6 - 7.1 73-Cnh-28086:25 Blood Glucose , Office (47000) Blood Glucose , Office 127 (Normal) 28-Caz-243242:47 UNILAT LT DIAG DIGITAL & CAD Radiology Report See Note (Normal) Comments: Exam Number: [id number] MAMMOGRAM, UNILATERAL LEFT DIAGNOSTIC DIGITAL AND CAD [...] mammograms werealso examined with computer-aided detection software ([employer], [employer] Reported By: CHASTITY RETANA M.D. :10 [facility] DIGITAL & CAD Radiology Report See Note (Normal) Comments: Exam Number: [id number] MAMMOGRAM, BILATERAL SCREENING DIGITAL AND CAD HISTORYRoutine [...] mammograms werealso examined with computer-aided detection software ([employer], [employer] Reported By: CHASTITY RETANA M.D. :36 HgA1C , Office (22653) HgA1C , Office 7.4 % (Abnormal) Range: 4.6 - 7.1 :36 Blood Glucose , Office (70736) Blood Glucose , Office 168 (Normal) 35-Uad-368592:15 COMP METABOLIC A/G 1.1 {RATIO} (Normal) Range: [...] T PROT 7.3 g/dL (Normal) Range: 6.4-8.2 41-Kzq-413923:15 LIPID CHOL 165 mg/dL (Normal) Comments: <200 [...] mg/dL VLDL 27 mg/dL (Normal) Range: 5-40 21-Mzn-790634:15 MICROALBUMIN,UR 6.7 mg/L (Normal) 47-Gyk-077887:15 TSH 1.71 {uIU/mL} (Normal) Range: 0.34-4.82 21-Vqz-819103:46 CBC WITH MANUAL DIFF (01692) Comments: PATIENT NOT FASTINGClinical Information: ADD [id number] ADD [id number] PERFORMED BY: [facility] CenterCo[address] [id number] Baso (Absolute) 0.0 {x10E3/uL} (Normal) Range: 0.0-0.2 [...] 11.7-15.0 WBC 3.4 {x10E3/uL} (Abnormal) Range: 4.0-10.5 91-Nio-50500:49 MYOCARD PERF SPECT REST/STRESS Radiology Report See Note (Normal) Comments: Exam Number: [id number] MYOCARDIAL PERFUSION SCAN TECHNIQUEThe patient was injected [...] FLOR WEI M.D. :44 HgA1C , Office (01741) HgA1C , Office 7.2 % (Abnormal) Range: 4.6 - 7.1 :44 Blood Glucose , Office (52253) Blood Glucose , Office 141 (Normal) :48 HgA1C , Office (33322) HgA1C , Office 7.3 % (Abnormal) Range: 4.6 - 7.1 :47 Blood Glucose , Office (39651) Blood Glucose , Office 148 (Normal) :12 [...] T PROT 7.6 g/dL (Normal) Range: 6.4-8.2 01-Keu-955909:12 LIPID CHOL 171 mg/dL (Normal) Comments: <200 [...] mg/dL VLDL 34 mg/dL (Normal) Range: 5-40 70-Zqb-612668:12 TSH 1.61 {uIU/mL} (Normal) Range: 0.34-4.82 74-Xse-767595:10 CBCD,SMEAR DIFF BASOPHIL 1 % (Normal) Range: [...] Range: 4.4-11.0 :46 Blood Glucose , Office (01354) Blood Glucose , Office 163 (Normal) :24 HgA1C , Office (07170) HgA1C , Office 6.6 % (Normal) Range: 4.6 - 7.1 :24 Blood Glucose , Office (13339) Blood Glucose , Office low (Normal) :09 HgA1C , Office (20740) Comments: done HgA1C , Office 6.5 % (Normal) Range: 4.6 - 7.1 :09 Blood Glucose , Office (37895) Comments: done Blood Glucose , Office 161 [...] (Normal) Range: 0.34-4.82 :05 HgA1C , Office (86351) HgA1C , Office 7.2 % (Abnormal) Range: 4.6 - 7.1 :05 Blood Glucose , Office (08555) Blood Glucose , Office 114 (Normal) :35 [...] 11.6-14.6 WBC 7.4 K/mm3 (Normal) Range: 4.4-11.0 4-Kic-713036:14 CHEST, PA AND LATERAL Radiology Report See Note (Normal) Comments: Exam Number: [id number] CHEST, PA AND LATERAL HISTORYShortness of breath. FINDINGSCardiac configuration is normal. There is mild overinflation of thelungs. No acute infiltrate, effusion, or pneumothora x is identified. IMPRESSIONNo acute changes noted in the lungs. Reported By: FLOR CHOWDHURY M.D. 02-Ttt-530188:59 CHEST, PA AND LATERAL Radiology Report See Note (Normal) Comments: Exam Number: [id number] PA AND LATERAL CHEST HISTORY Being done [...] infiltrate identified. Reported By: FLOR CHOWDHURY M.D. 26-Ygw-388539:59 JHONNY 50154 59 U/L (Normal) Range: - Comments: Performed At: [address] [id number] 81-Omm-525998:06 JHONNY 22421 61 U/L (Normal) Range: 12-68 00-Ode-490186:06 REBECCA-D 392554 REBECCA-DIRECT 31 U/mL (Normal) Range: 0-99 Comments: Negative <100 Equivocal 100 - 120 Positive >120 19-Ddx-751198:06 C-REACTIVE PROT 7.75 mg/L (Abnormal) Range: 0.0-6.0 Comments: Test performed using the Dimension C-Reactive ProteinExtended Range assay method. This assay meets the AHA/CDC 2003 recommendations fordetermining patients at high risk for cardiovasculardisease. Reference: High risk CRP >3.0 mg/L 73-Psl-869427:06 CBCD,SMEAR DIFF CELLS COUNTED 100 (Normal) EOS [...] 47-70 WBC 4.4 K/mm3 (Normal) Range: 4.4-11.0 89-Czk-124422:06 ESR SED RATE 5 mm/h (Normal) Range: 0-30 15-Sit-097474:06 HISTOPL 639780 SeeNote (Normal) Comments: Result: Negative Performed At: [facility] Ykneop49[address] [place], [place] [id number] At: [facility] [address]pie[address] [place], [place] [id number] 11-Bsa-963644:06 LDH 170 U/L (Normal) Range: 100-190 63-Adg-607432:06 RA LATEX 6502 4.4 {IU/mL} (Normal) Range: 0.0-13.9 74-Szm-177020:49 CBCD,SMEAR DIFF CELLS COUNTED 100 (Normal) EOS [...] 47-70 WBC 5.2 K/mm3 (Normal) Range: 4.4-11.0 34-Mck-785489:49 COMP METABOLIC A/G 1.0 {RATIO} (Normal) Range: [...] (Normal) Range: 0.34-4.82 :31 HgA1C , Office (26878) HgA1C , Office 7.9 % (Abnormal) Range: 4.6 - 7.1 :31 Blood Glucose , Office (22687) Blood Glucose , Office 302 (Normal) Plan [...] Make follow up apt with Silas and Customer Relations CoordinatorMaximino on September 23 between 2-4 Indication: Acute [...] without abnormal finding : *Well Female Maintenance ([facility]) Indication: Encounter for gynecological examination without abnormal [...] Wheezing Cough : Follow up tomorrow with [facility] Indication: Cough Unspecified asthma with (acute) exacerbation [...] DIAGNOSTIC TESTS Indication: Acute sinusitis Planned Observations GLUCOSE (10308)Indication: Hypoglycemia On: 71-Pyc-925205:48 Request Cortisol,Urinary Free 24- Hour Urine (88862)Indication: Adrenal adenoma, right On: :54 Request Catecholamines,24-Hour Urine (49484)Indication: Adrenal adenoma, right On: :54 Request DHEA (DEHYDROEPIANDROSTERONE) (43539)Indication: Adrenal adenoma, right On: :51 Request METABOLIC PANEL, COMPREHENSIVE (88005)Indication: Adrenal adenoma, right On: :51 Request LIPID PANEL (99691)Indication: Hypercholesteremia On: :23 Request HGB A1C (51590)Indication: Diabetes mellitus type II, controlled, with no complications (Renamed from Controlled type 2 diabetes mellitus without complication) On: 33-Qcs-249842:00 Request Comments: Jun 2016 1 week before apt METABOLIC PANEL, COMPREHENSIVE (64885)Indication: Hypercalcemia On: 62-Iao-686658:03 Request GLUCOSE (15060)Indication: Type 2 or unspecified type diabetes mellitus, uncontrolled On: 33-Fsj-798900:00 Request METABOLIC PANEL, COMPREHENSIVE (00676)Indication: Type 2 or unspecified type diabetes mellitus, uncontrolled On: 07-Vgx-194291:28 Request CALCIFEDIOL (12098)Indication: Vitamin D deficiency, unspecified On: 58-Bpl-873619:27 Request URINALYSIS, W/ MICRO (16982)Indication: Type 2 or unspecified type diabetes mellitus, uncontrolled On: 86-Unu-217880:18 Request MICROALBUMIN: CREATININE RATIO (15478) AND (05678)Indication: Type 2 or unspecified type diabetes mellitus, uncontrolled On: :18 Request TSH (39210)Indication: Type 2 or unspecified type diabetes mellitus, uncontrolled On: 30-Cyi-853201:18 Request Lipid Panel (36310)Indication: Type 2 or unspecified type diabetes mellitus, uncontrolled On: :18 Request Metabolic Panel, Comprehensive (52780)Indication: Type 2 or unspecified type diabetes mellitus, uncontrolled On: 16-Fbw-576429:18 Request HGB A1C (91377)Indication: Type 2 or unspecified type diabetes mellitus, uncontrolled On: 01-Acx-923477:14 Request Comments: 6.6 CBC W/AUTO DIFF WBC (87474)Indication: Hypertension On: 82-Mub-652896:07 Request METABOLIC PANEL, COMPREHENSIVE (62399)Indication: Hypertension On: 49-Ytl-136525:07 Request Vitamin D Hydroxy (73456)Indication: Vitamin D deficiency, unspecified On: : Request LIPID PANEL (20034)Indication: Other and unspecified hyperlipidemia On: 30-Haf-479346:07 Request Vitamin D Hydroxy (95699)Indication: Vitamin D deficiency, unspecified On: :15 Request CBC with auto diff (69462)Indication: Hypertension On: :14 Request TSH (18910)Indication: Hypothyroidism On: :14 Request MICROALBUMIN: CREATININE RATIO (35341) AND (12897)Indication: Type 2 or unspecified type diabetes mellitus, uncontrolled On: :14 Request METABOLIC PANEL, COMPREHENSIVE (57876)Indication: Hypertension On: :14 Request LIPID PANEL (70781)Indication: Other and unspecified hyperlipidemia On: :13 Request MYOGLOBIN (28139)Indication: Chest pain On: 06-Aug-20149:52 Request CPK MB FRACTION (30458)Indication: Chest pain On: :52 Request ASSAY, TROPONIN, QUANTITATIVE (aka Troponin I) (35849)Indication: Chest pain On: :52 Request CBC WITH MANUAL DIFF (96871)Indication: Acute exacerbation of COPD with asthma On: :52 Request CALCIFEDIOL (95719)Indication: Depression On: 74-Gqq-159613:50 Request Lipid Panel (99217)Indication: Other and unspecified hyperlipidemia On: 09-Eyt-407467:50 Request TSH (16781)Indication: Hypothyroidism On: 79-Zip-356230:49 Request URINALYSIS (16753)Indication: Hypertension On: :49 Request CBC WITH MANUAL DIFF (16161)Indication: Hypertension On: 02-Ctp-199722:49 Request Metabolic Panel, Comprehensive (56831)Indication: Hypertension On: :49 Request CBC (AUTO) (52525)Indication: Hypercalcemia On: 0-Gui-877656:06 Request UPEP (54126)Indication: Hypercalcemia On: 2-Atn-419287:06 Request SPEP (08966)Indication: Hypercalcemia On: 2-Edm-318126:06 Request SED RATE ERYTHROCYTE (41512)Indication: Hypercalcemia On: 0-Plc-253334:06 Request CALCIUM SERUM (99454)Indication: Hypercalcemia On: 0-Oig-611500:05 Request PARATHORMONE (59601)Indication: Hypercalcemia On: 9-Klx-534812:05 Request FECAL OCCULT HGB ASSAY- tubes sent home (10855)Indication: Well woman exam with routine gynecological exam On: 39-Dux-065297:54 Request HgA1C , Office (73721)Indication: Type 2 or unspecified type diabetes mellitus, uncontrolled On: 47-Cwi-109170:45 Request CBC WITH MANUAL DIFF (34126)Indication: Osteopenia On: 36-Mea-087913:23 Request Vitamin D Hydroxy (05037)Indication: Vitamin D deficiency, unspecified On: 42-Qpg-207528:22 Request TSH (18630)Indication: Hypothyroidism On: 91-Dxv-594907:22 Request METABOLIC PANEL, COMPREHENSIVE (56424)Indication: Sarcoidosis On: 88-Oxo-286819:21 Request Thin prep Pap (67863)Indication: Well woman exam with routine gynecological exam On: 5-Ysv-541720:16 Request FECAL OCCULT HGB ASSAY- tubes sent home (66204)Indication: Well woman exam with routine gynecological exam On: 2-Lia-890943:16 Request METABOLIC PANEL, COMPREHENSIVE (71091)Indication: Type 2 or unspecified type diabetes mellitus, uncontrolled On: 6-Eio-270311:14 Request CBC WITH MANUAL DIFF (77701)Indication: Type 2 or unspecified type diabetes mellitus, uncontrolled On: 9-Rgb-865234:14 Request MICROALBUMIN: CREATININE RATIO (04031) AND (05129)Indication: Type 2 or unspecified type diabetes mellitus, uncontrolled On: 1-Ctq-578448:14 Request Vitamin D Hydroxy (98298)Indication: Vitamin D deficiency, unspecified On: 9-Sij-512291:14 Request METABOLIC PANEL, COMPREHENSIVE (14583)Indication: Benign essential hypertension On: 8-Byp-937180:14 Request TSH (54872)Indication: Hypothyroidism On: 6-Pbh-190007:14 Request LIPID PANEL (67250)Indication: Other and unspecified hyperlipidemia On: 4-Pip-412316:14 Request HgA1C , Office (84537)Indication: Type 2 or unspecified type diabetes mellitus, uncontrolled On: 4-Tza-672167:43 Request CBC WITH MANUAL DIFF (57341)Indication: Benign essential hypertension On: :22 Request METABOLIC PANEL, COMPREHENSIVE (57876)Indication: Benign essential hypertension On: 4-Kml-350502:22 Request LIPID PANEL (77484)Indication: Other and unspecified hyperlipidemia On: :22 Request MEHREEN CULTURE-OTHER (86931)Indication: Pharyngitis, acute On: 54-Iyy-298310:38 Request LIPID PANEL (00167)Indication: Other and unspecified hyperlipidemia On: :40 Request CBC WITH MANUAL DIFF (94094)Indication: DIABETES MELLITUS WITHOUT MENTION OF COMPLICATION; TYPE II OR UNSPECIFIED TYPE, NOT STATED UNCONTROLLED On: :40 Request METABOLIC PANEL, COMPREHENSIVE (70172)Indication: DIABETES MELLITUS WITHOUT MENTION OF COMPLICATION; TYPE II OR UNSPECIFIED TYPE, NOT STATED UNCONTROLLED On: 65-Shw-852269:40 Request Vitamin D Hydroxy (61613)Indication: Vitamin D deficiency, unspecified On: 97-Jkw-500437:38 Request CULTURE, SPUTUM (67667)Indication: Flu On: 29-Zdc-996783:45 Request nasal influenza swab (43593) I1Jfqhuofvuz: Cough On: 2-Yju-424435:00 Request Rapid Flu (80614 x 2)Indication: Cough On: 9-Bav-470583:53 Request HEPATIC FUNCTION PANEL (36173)Indication: Other and unspecified hyperlipidemia On: :42 Request LIPID PANEL (17359)Indication: Other and unspecified hyperlipidemia On: :42 Request Vitamin D Hydroxy (20081)Indication: Vitamin D deficiency, unspecified On: :41 Request Lipase (78627)Indication: Nausea On: 15-Ypv-336240:41 Request Amylase (88771)Indication: Nausea On: 88-Kgh-099372:41 Request C-REACTIVE PROTEIN (77040)Indication: SOB (shortness of breath) on exertion On: 48-Cri-320107:39 Request SED RATE ERYTHROCYTE (53402)Indication: SOB (shortness of breath) on exertion On: :39 Request METABOLIC PANEL, COMPREHENSIVE (73236)Indication: SOB (shortness of breath) on exertion On: :39 Request CBC WITH MANUAL DIFF (19142)Indication: SOB (shortness of breath) on exertion On: :39 Request D-Dimer (55906)Indication: SOB (shortness of breath) on exertion On: :39 Request TSH (01047)Indication: Hypothyroidism On: 74-Tul-834422:41 Request MICROALBUMIN: CREATININE RATIO (41148) AND (91188)Indication: DIABETES MELLITUS WITHOUT MENTION OF COMPLICATION; TYPE II OR UNSPECIFIED TYPE, NOT STATED UNCONTROLLED On: :37 Request HEPATIC FUNCTION PANEL (73353)Indication: Other and unspecified hyperlipidemia On: :37 Request LIPID PANEL (50914)Indication: Other and unspecified hyperlipidemia On: 42-Pxm-703449:37 Request URINE MEHREEN CULTURE-SUNNY COL COUNT (16000)Indication: Urinary frequency On: 55-Ixn-556087:05 Request URINE MEHREEN CULTURE-SUNNY COL COUNT (23958)Indication: Urinary frequency On: 02-Sjo-194401:05 Request URINE MEHREEN CULTURE-SUNNY COL COUNT (02621)Indication: Urinary frequency On: 33-Thi-385557:05 Request URINE MEHREEN CULTURE-SUNNY COL COUNT (63468)Indication: Urinary frequency On: 89-Nem-594221:05 Request URINE MEHREEN CULTURE-SUNNY COL COUNT (10516)Indication: Urinary frequency On: 06-Szl-416610:05 Request URINE MEHREEN CULTURE-SUNNY COL COUNT (71617)Indication: Urinary frequency On: 87-Smp-198835:05 Request URINE MEHREEN CULTURE-SUNNY COL COUNT (69926)Indication: Urinary frequency On: 08-Res-755580:05 Request MEHREEN CULTURE-OTHER (75461)Indication: Family history of aneurysm On: 06-Bif-953535:17 Request MICROALBUMIN URINE QUANT (55691)Indication: Type 2 or unspecified type diabetes mellitus, uncontrolled On: 15-Ajj-68197:55 Request METABOLIC PANEL, COMPREHENSIVE (77406)Indication: Hypertension On: :54 Request TSH (59037)Indication: Hypothyroidism On: :54 Request LIPID PANEL (43798)Indication: Other and unspecified hyperlipidemia On: :53 Request TSH (74095)Indication: Hypothyroidism On: :49 Request METABOLIC PANEL, COMPREHENSIVE ([id number])Indication: DIABETES MELLITUS WITHOUT MENTION OF COMPLICATION; TYPE II OR UNSPECIFIED TYPE, NOT STATED UNCONTROLLED On: :49 Request LIPID PANEL ([id number])Indication: DIABETES MELLITUS WITHOUT MENTION OF COMPLICATION; TYPE II OR UNSPECIFIED TYPE, NOT STATED UNCONTROLLED On: :49 Request CBC WITH MANUAL DIFF ([id number])Indication: Anemia On: :49 Request Rapid Strep Test, Office ([id number])Indication: Pharyngitis, acute On: :27 Request Comments: neg HDL Cholesterol-Direct ([id number])Indication: Low HDL (under 40) On: :41 Request Comments: DO IN 3 MO LIPID PANEL ([id number])Indication: Other and unspecified hyperlipidemia On: :54 Request URINALYSIS W/O MICRO ([id number])Indication: Hypertension On: :54 Request TSH ([id number])Indication: Hypothyroidism On: :54 Request METABOLIC PANEL, COMPREHENSIVE ([id number])Indication: Hypertension On: :54 Request CBC WITH MANUAL DIFF ([id number])Indication: Anemia On: :54 Request TSH ([id number])Indication: Hypothyroidism On: :59 Request URINALYSIS W/O MICRO ([id number])Indication: Type 2 or unspecified type diabetes mellitus, uncontrolled On: :59 Request CBC WITH MANUAL DIFF ([id number])Indication: Type 2 or unspecified type diabetes mellitus, uncontrolled On: :59 Request MICROALBUMIN: CREATININE RATIO ([id number]) AND ([id number])Indication: Type 2 or unspecified type diabetes mellitus, uncontrolled On: :58 Request METABOLIC PANEL, COMPREHENSIVE ([id number])Indication: Type 2 or unspecified type diabetes mellitus, uncontrolled On: :58 Request HgA1C , Office ([id number])Indication: Abnormal glucose tolerance test On: 94-Iao-414412:35 Request Blood Glucose , Office ([id number])Indication: Abnormal glucose tolerance test On: 35-Lht-790735:35 Request Planned Encounters Medical; 3 Month FU - On: 02-May-2018 11:30 [facility] Dafne Jaime CNP, CNP, Mary E Planned Procedures SIX MINUTE WALK TEST ([id number])By: On: 20-Apr-2018 Intent Visit, Nurse SPIROMETRY PERFORMED ([id number])By: On: 20-Apr-2018 Intent Visit, Nurse SPIROMETRY PERFORMED ([id number])By: On: 20-Apr-2018 Intent Visit, Nurse INFUSION, NORMAL SALINE SOLUTION , On: 24-Jan-2018 Intent 1000 CC (Special Coverage Comments: lot:[id number]:IV right anticub dose:1000ml given by:carmen Shay LPN Instructions Apply. See MCM: 2049) (J7030)By: Dafne Jaime CNP, CNP, Mary E IV Needle placement ([id number])By: On: 24-Jan-2018 Intent Dafne Jaime CNP, CNP, Mary E Radiology - Lumbar SpineBy: On: 23-Dec-[address] - Abdomen & Pelvis Stone On: 23-Dec-2017 Intent ProtocolBy: Yoselin Oconnell Comments: STAT R/O Kidney stones bilateral COMP EYE EXAMINATION, ESTAB PATIENT On: 09-Dec-2017 Intent ([id number])By: Yoselin Oconnell Toradol Injection, 30 mg On: 12-Jul-2017 Intent (J1885)By: Dafne Jaime CNP, CNP, Mary E Toradol Injection, 30 mg On: 07-Apr-2017 Intent (J1885)By: Dafne Jaime CNP, CNP, Mary E Flu Vaccine (Quadrivalent) 22237Mi: On: 24-Mar-2017 Intent Dafne Jaime CNP, CNP, Mary E Toradol Injection, 30 mg On: 24-Mar-2017 Intent (J1885)By: Dafne Jaime CNP, CNP, Mary E Rocephin Injection, 2 Gram On: 18-Nov-2016 Intent ([id number])By: Dafne Jaime CNP, CNP, Mary E Aerosol Treatment ([id number])By: Addison On: 18-Nov-2016 Intent Dafne DOUGHERTY CNP, Mary E Solu -Medrol Injection, 125 mg On: 18-Nov-2016 Intent ([id number])By: Dafne Jaime CNP, CNP, Mary E MAMMOGRAM, SCREENING, BOTH BREAST On: 19-Aug-2016 Intent ([id number])By: Dafne Jaime CNP, CNP, Mary E DEXA SCAN AXIAL SKELETON ([id number])By: On: 19-Aug-2016 Intent Dafne Jaime CNP, CNP, Mary E GROUP PULMONARY REHABILITATION WITH On: 11-Feb-2016 Intent EXERCISE ([id number])By: Dafne Jaime CNP, CNP, Mary E Six Minute Walk Assessment On: 17-Oct-2015 Intent ([id number])By: Visit, Nurse PFT - CompleteBy: Vanessa Chen MD On: 24-Sep-2015 Intent M Rocephin Injection, 2 Gram On: 21-Aug-2015 Intent (J0696)By: Dafne Jaime CNP Comments: IV 2 gramsright [id number] guagetolerated welllot [id number] 02/12as, Dafne SILVA CNP INFUSION, NORMAL SALINE SOLUTION , On: 21-Aug-2015 Intent 1000 CC (Special Coverage Instructions Apply. See MCM: 2049) (J7030)By: Dafne Jaime CNP, CNP, Mary E Solu -Medrol Injection, 125 mg On: 21-Aug-2015 Intent (J2930)By: Dafne Jaime CNP Comments: lot [id number] 12/1824 mcgIMright gmas, Dafne SILVA CNP Radiology - ChestBy: Addison DOUGHERTY, On: 20-Aug-2015 Intent Dafne Durán CNP Comments: call results to MCiesa INFUSION, NORMAL SALINE SOLUTION , On: 20-Aug-2015 Intent 250 CC ([id number])By: Dafne Jaime CNP, CNP, Mary E Rocephin Injection, 2 Gram On: 20-Aug-2015 Intent (J0696)By: Dafne Jaime CNP Comments: IV 2 gramsright [id number] guagetolerated well, no redness notedlot [id number] 01/26/18asSHIRA CNP, Mary E Solu -Medrol Injection, 125 mg On: 20-Aug-2015 Intent (J2930)By: Dafne Jaime CNP Comments: SOLUMEDROLlot:[id number]:ite:lt glutroute:IMdose:125mgDEMICK, Dafne MCKEON CNP Aerosol Treatment (10631)By: Slarb On: 20-Aug-2015 Intent [employer], Gloria Rocephin Injection, 2 Gram On: 19-Aug-2015 Intent (J0696)By: Dafne Jaime CNP Comments: [id number] hip, IM JM, ANNELIESE DOUGHERTY Radha Solu -Medrol Injection, 125 mg On: 19-Aug-2015 Intent (J2930)By: Dafne Jaime CNP Comments: [id number]-T hip, IMDose-prefilled syringegiven by:DOUGLAS House signed LADONNA Radha Aerosol Treatment ([id number])By: Harman On: 19-Aug-2015 Intent [employer], Gloria Solu -Medrol Injection, 125 mg On: 07-Jun-2015 Intent (J2930)By: Giovani Hutchins MD Comments: [id number]-E hip, IMDose-prefilled syringegiven by:ASHLY PERALES signed Rocephin Injection, 2 Gram On: 07-Jun-2015 Intent (J0696)By: Giovani Hutchins MD Comments: [id number] grams rocephin IV22G, 1 inchSite: existing lock flushed easily before and after and then d/c for the weekendTolerated: wellno redness or swelling, no s/s infiltrationML, [employer] INFUSION, NORMAL SALINE SOLUTION , On: 07-Jun-2015 Intent 250 CC ([id number])By: Giovani Hutchins MD INFUSION, NORMAL SALINE SOLUTION , On: 06-Jun-2015 Intent 250 CC ([id number])By: Giovani Hutchins MD Rocephin Injection, 2 Gram On: 06-Jun-2015 Intent (J0696)By: Giovani Hutchins MD Comments: 195262s7.75462 gramsIV Therapy uxaoipsjb38N, 1 inchSite: R ac - lock flushed nicely and left in place for tomorrowTolerated: well x 1st attemptno redness or swelling, no s/s infiltrationML, [employer] Solu -Medrol Injection, 125 mg On: 06-Jun-2015 Intent (J2930)By: Giovani Hutchins MD Comments: [id number] hip, IMML, [employer] Radiology - ChestBy: Liset HUTCHINSON, On: 06-Jun-2015 Intent Giovani Comments: Acute execerbation of COPD?PNA Aerosol Treatment ([id number])By: Liset On: 06-Jun-2015 Giovani Mena MD Overnight Pulse OX ([id number])By: Marquise On: 03-Jun-2015 Jackie Mena DO Six Minute Walk Assessment On: 29-May-2015 Intent ([id number])By: Jackie Christina DO Overnight Pulse OX ([id number])By: Marquise On: 29-May-2015 Jackie Mena DO MAMMOGRAM, SCREENING, BOTH BREAST On: 03-May-2015 Intent ([id number])By: Jackie Christina DO Six Minute Walk Assessment On: 25-Feb-2015 Intent (55391)By: Jackie Christina DO Overnight Pulse OX ([id number])By: Marquise On: 25-Feb-2015 Jackie Mena DO BILATERAL MAMMOGRAMS ([id number])By: On: 26-Nov-2014 Intent Jackie Christina DO EKG ([id number])By: Jackie Christina DO On: 26-Nov-2014 Intent Comments: ekg showed normal sinus rhythym, normal axis, no acute st/t wave changes twave inversion ant no change Solu -Medrol Injection, 125 mg On: 08-Aug-2014 Intent (J2930)By: Dafne Jaime CNP Comments: [id number], IMR hip, IMJM, 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 Dafne DOUGHERTY Rocephin Injection, 2 Gram On: 08-Aug-2014 Intent (J0696)By: Dafne Jaime CNP Comments: .[id number] grams IV R ac, x 1 attempt - tolerated well Alisha, [employer] Dafne DOUGHERTY INFUSION, NORMAL SALINE SOLUTION , On: 08-Aug-2014 Intent 250 CC (J7050)By: Dafne Jaime CNP, CNP, Mary E IV Needle placement ([id number])By: On: 07-Aug-2014 Intent Dafne Jaime CNP, CNP, Mary E Comments: 22G insyte initiated on 1st attempt w/o difficulty, no s/s redness, swelling infiltration, infusing on gravity pole at 38gtts/min, dsg dry intact, catheter removed intact- tolerated well- CTyler [employer] Solu -Medrol Injection, 125 mg On: 07-Aug-2014 Intent (J2930)By: Dafne Jaime CNP Comments: Lot:[id number]:12/2016Dose:125mgRoute:imSite:r armGiven By:Dafne Alejandro CNP INFUSION, NORMAL SALINE SOLUTION , On: 07-Aug-2014 Intent 250 CC (J7050)By: Dafne Jaime CNP, CNP, Mary E Rocephin Injection, 2 Gram On: 07-Aug-2014 Intent (J0696)By: Dafne Jaime CNP Comments: lot # [id number]- 02/26/2017site-R Median antecuberoute-IVdose- 2GCTyler [employer] Dafne DOUGHERTY Aerosol Treatment ([id number])By: Addison On: 07-Aug-2014 Intent Dafne DOUGHERTY CNP, Mary E Comments: ipitropium- tolerated well- CTyler [employer] Radiology - ChestBy: Addison DOUGHERTY, On: 06-Aug-2014 Intent Dafne Durán CNP Rocephin Injection, 2 Gram On: 06-Aug-2014 Intent (J0696)By: Dafne Jaime CNP, CNP, Mary E Solu -Medrol Injection, 125 mg On: 06-Aug-2014 Intent (J2930)By: Dafne Jaime CNP, CNP, Mary E Aerosol Treatment ([id number])By: On: 31-Jul-2014 Intent Vanessa Chen MD Solu- Medrol Injection, 125mg On: 31-Jul-2014 Intent (J2930)By: Vanessa Chen MD Eprescribed prescriptions On: 31-Jul-2013 Intent (G8553)By: Ivanna Maddox Overnight Pulse OX ([id number])By: Marquise On: 10-May-2013 Jackie Mena DO Spirometry (49824)By: Marquise JHAVERI, On: 02-May-2013 Intent Jackie Rondon Comments: good effort cure mild obst EKG (09156)By: Ivanna Maddox On: 02-May-2013 Intent Comments: ekg showed normal sinus rhythym, normal axis, no acute st/t wave changes no change in twave inversion ant Six Minute Walk Assessment On: 02-May-2013 Intent ([id number])By: Jackie Christina DO Overnight Pulse OX (15084)By: Marquise On: 02-May-2013 Jackie Mena DO Eprescribed prescriptions On: 02-May-2013 Intent (G8553)By: Ivanna Maddox MAMMOGRAM, SCREENING, BOTH BREASTS On: 18-Apr-2013 Intent ([id number])By: Jackie Christina DO Clinical Breast Examination On: 18-Apr-2013 Intent (G0101)By: Ivanna Maddox Solu- Medrol Injection, 125mg On: 26-Oct-2012 Intent (J2930)By: Jackie Christina DO Comments: Lot #[id number]-R hip, IMDose- prefilled syringegiven by:VANESA House signed Aerosol Treatment (94288)By: Marquise On: 26-Oct-2012 Jackie Mena DO Eprescribed prescriptions On: 26-Oct-2012 Intent (G8553)By: Ivanna Maddox Pulse Oximetry (95199)By: Tan On: 26-Oct-2012 Rajesh Goncalves Comments: 98% Spirometry (52311)By: Abi JHAVERI On: 06-Sep-2012 Intent Anahi Comments: mild restrictive Aerosol Treatment (17964)By: Abi On: 06-Sep-2012 Anahi Mena DO Comments: done pt tolerated well. Albuterol 0.83%-- better a/e no wheeze Solu- Medrol Injection, 125mg On: 06-Sep-2012 Intent (J2930)By: Anahi Alex DO Comments: 2ml given im lt hip lot [id number] exp 04/11 Eprescribed prescriptions On: 06-Sep-2012 Intent (G8553)By: Anahi Alex DO Pulse Oximetry (37202)By: Abi On: 06-Sep-2012 Anahi Mena DO Eprescribed prescriptions On: 22-Aug-2012 Intent (G8553)By: Ivanna Maddox Overnight Pulse OX (59063)By: Marquise On: 03-May-2012 Jackie Mena DO Comments: Patient demonstrates understanding of how to operate macine. Alisha. Eprescribed prescriptions On: 27-Apr-2012 Intent (G8553)By: Ivanna Maddox Six Minute Walk Assessment On: 01-Apr-2012 Intent (60159)By: Virgen Real LPN PNEUM VAC ADLT/IMUMNOSPR, SBC/INTRM On: 18-Mar-2012 Intent (25216)By: Jackie Christina DO Comments: Lot:[id number]:08-10-13Dose:0.5 mLRoute:IM Site:[facility] By:FADIA signed PFT - CompleteBy: Jackie Christina DO On: 18-Mar-2012 Intent Six Minute Walk Assessment On: 18-Mar-2012 Intent (98367)By: Jackie Christina DO Overnight Pulse OX (97783)By: Marquise On: 18-Mar-2012 Jackie Mena DO IMMUNIZ ADMNIN, 1 VAC, SNGL/COMBO On: 18-Mar-2012 Intent (63361)By: Jackie Christina DO DXA, BONE DENSITY, AXIAL SKELETON On: 18-Mar-2012 Intent ([id number])By: Jackie Christina DO MAMMOGRAM, SCREENING, BOTH BREASTS On: 18-Mar-2012 Intent (50547)By: Jackie Christina DO CT - ChestBy: Jackie Christina DO On: 03-Feb-2012 Intent Solu- Medrol Injection, 125mg On: 30-Sep-2011 Intent (J2930)By: Jackie Christina DO Comments: Lot #[id number]/14Site-right [id number] by: Tiny Cox, [employer] Aerosol Treatment (60383)By: Marquise On: 30-Sep-2011 Intent Jackie JHAVERI Pulse Oximetry (31123)By: Tan On: 30-Sep-2011 Intent Ivanna Comments: 97% Solu -Medrol Injection, 125 mg On: 25-Sep-2011 Intent (J2930)By: Addison DOUGHERTY, Dafne Acevedoa LADONNA, Radha Pulse Oximetry (60750)By: Addison On: 25-Sep-2011 Intent SUPERVISOR [employer]SEM[employer]Y, Radha Curtisa SUPERVISOR [employer]SEM[employer], Radha FLU VAC, SPLIT, >3 YEARS, INTRAMUSC On: 01-Jul-2011 Intent (18615)By: Ivanna Maddox Comments: work MAMMOGRAM, SCREENING, BOTH BREASTS On: 31-Mar-2011 Intent (26839)By: Jackie Christina DO Solu -Medrol Injection, 125 mg On: 31-Mar-2011 Intent (J2930)By: Jackie Christina DO Eprescribed prescriptions On: 31-Mar-2011 Intent (G8553)By: Jackie Christina DO Solu- Medrol Injection, 125mg On: 16-Dec-2010 Intent (J2930)By: Jackie Christina DO Comments: lot # [id number]- [id number]- 2ML tolerated well Lenny [employer] Aerosol Treatment (99048)By: Marquise On: 16-Dec-2010 Intent Jackie JHAVERI Comments: tolerated well Pulse Oximetry (13890)By: Marquise JHAVERI On: 16-Dec-2010 Intent Jackie Rondon Comments: 96% on room air Eprescribed prescriptions On: 16-Dec-2010 Intent (G8553)By: Jackie Christina DO Pulse Oximetry (43209)By: Tan On: 15-Jul-2010 Intent Ivanna Comments: 96% TD Injection , IM (54751)By: Marquise On: 04-Jul-2010 Intent DO, Jackie A Comments: Lot #[id number]/12Site-R DltdDose 0.5mlgiven by:UDAY EKG (15701)By: Ivanna Maddox On: 04-Jul-2010 Intent Radiology - Lumbar SpineBy: Ciesa On: 12-May-2010 Intent Dafne DOUGHERTY CNP, Radha MAMMOGRAM, SCREENING, BOTH BREASTS On: 19-Nov-2009 Intent (25747)By: Jer Christina DOa A MAMMOGRAM, SCREENING, BOTH BREASTS On: 07-May-2009 Intent (70759)By: Marquise JHAVERI Jackie A EKG (82794)By: Ivanna Maddox On: 07-May-2009 Intent Comments: ekg showed normal sinus rhythym, normal axis, no acute st/t wave changes Aerosol Treatment (98547)By: On: 22-Apr-2009 Intent Ivanna Aly Comments: post aerosol tx, pt states i can breath a whole lot better Radiology - Chest- PA and LatBy: On: 19-Apr-2009 Intent Anahi Alex DO Pulse Oximetry (94097)By: Addison On: 04-Apr-2009 Intent Dafne DOUGHERTY CNP, Dafne Mota Aerosol Treatment (71396)By: Marquise On: 21-Sep-2008 Intent Jackie JHAVERI A CT - ChestBy: Marquise JHAVERI Jackie A On: 21-Sep-2008 Intent Comments: please also look at right upper quadrant- do stat and call wet read Pulse Oximetry (04730)By: Tan On: 21-Sep-2008 Intent Ivanna Comments: 97% Radiology - Lumbar SpineBy: Marquise On: 14-Jun-2008 Intent DO Jackie A Comments: bone density suggest possible compression at l5 Ultrasound - AortaBy: Marquise JHAVERI, On: 24-Apr-2008 Intent Jackie A Holter Moniter ([id number])By: Marquise JHAVERI, On: 24-Apr-2008 Intent Jackie A EKG (32421)By: Marquise JHAVERI Jackie A On: 24-Apr-2008 Intent Comments: ekg showed normal sinus rhythym, normal axis, no acute st/t wave changes negative precordial t waves == no change DXA, BONE DENSITY, AXIAL SKELETON On: 24-Apr-2008 Intent (34689)By: Jackie Christina DO INFUSION, NORMAL SALINE SOLUTION , On: 09-Nov-2007 Intent 1000CC (Special Coverage Instructions Apply. See MCM: 2049) (J7050)By: Anahi Alex DO IV Needle placement (01545)By: On: 09-Nov-2007 Intent Anahi Alex DO Comments: PLACED 22 G R ANTECUBITAL - PT DENY WELLGOOD RETURN IV Infusion (09130)By: Abi JHAVERI, On: 09-Nov-2007 Intent Anahi Nuclear Stress Test/Stress On: 17-Oct-2007 Intent SPECT/AdenosineBy: Jackie Christina DO Nuclear Stress Test/Stress On: 18-Jul-2007 Intent SPECT/AdenosineBy: Jackie Christina DO EKG (75182)By: Jackie Christina DO On: 18-Jul-2007 Intent Comments: ekg showed normal sinus rhythym, normal axis, no acute st/t wave changes has neg twaves on precordium but are unchanged Pneumovax (34076)By: Marquise JHAVERI, On: 11-Apr-2007 Intent Jackie Rondon EKG (16172)By: Anahi Alex DO On: 19-Jan-2007 Intent Comments: NSR NONSPECIFIC CHANGES-- Pulse Oximetry (58419)By: Abi On: 24-Sep-2006 Intent Anahi JHAVERI Comments: 98% RA Aerosol Treatment (60074)By: Abi On: 24-Sep-2006 Anahi Mena DO Comments: [...] 23-Sep-2006 Intent Anahi Alex DO Aerosol Treatment (04427)By: Abi On: 23-Sep-2006 Intent Anahi JHAVERI Comments: after aerosol- diffuse wheeze and rhonchi lil softer-- more air exchange though Pulse Oximetry (07759)By: Armond RN, On: 23-Sep-2006 Intent Karen Comments: 98% PNEUM VAC ADLT/IMUMNOSPR, SBC/INTRM On: 08-Jul-2006 Intent (26127)By: MARKIE Hayden IMMUNIZ ADMNIN, 1 VAC, SNGL/COMBO On: 08-Jul-2006 Intent (61605)By: MARKIE Hayden Planned Medications INFUSION, NORMAL SALINE SOLUTION , 1000 CC Ordered: 24-Jan-2018 Pending Ciesa SUPER[employer]OR [employer], Radha Ciesa [employer]PER[employer]OR [employer], Radha INFUSION, NORMAL SALINE SOLUTION , 1000 CC Ordered: 21-Aug-2015 Pending Ciesa [employer], Radha Ciesa [employer]PER[employer], Radha INFUSION, NORMAL SALINE SOLUTION , 250 CC Ordered: 20-Aug-2015 Pending Ciesa [employer], Radha Ciesa [employer]PER[employer], Radha INFUSION, NORMAL SALINE SOLUTION , 250 CC Ordered: 07-Jun-2015 Pending Giovani Hutchins MD INFUSION, NORMAL SALINE SOLUTION , 250 CC Ordered: 08-Aug-2014 Pending Ciesa [employer]PER[employer], Radha Ciesa SUPER[employer]OR [employer], Radha INFUSION, NORMAL SALINE SOLUTION , 250 CC Ordered: 07-Aug-2014 Pending Ciesa SUPER[employer]OR [employer], Radha Ciesa SUPER[employer]OR [employer], Radha INFUSION, NORMAL SALINE SOLUTION , 250 CC Ordered: 06-Jun-2015 Pending Giovani Hutchins MD INJECTION, CEFTRIAXONE SODIUM, PER 250 MG Ordered: 21-Aug-2015 Pending Ciesa SUPER[employer]OR [employer], Radha Ciesa SUPER[employer]OR [employer], Radha INJECTION, CEFTRIAXONE SODIUM, PER 250 MG Ordered: 07-Jun-2015 Pending Giovani Hutchins MD INJECTION, CEFTRIAXONE SODIUM, PER 250 MG Ordered: 06-Jun-2015 Pending Giovani Hutchins MD INJECTION, CEFTRIAXONE SODIUM, PER 250 MG Ordered: 19-Aug-2015 Pending Ciesa SUPERVISOR [employer], Radha Ciesa SUPERVISOR [employer], Radha INJECTION, CEFTRIAXONE SODIUM, PER 250 MG Ordered: 08-Aug-2014 Pending Ciesa SUPERVISOR [employer]Y, Radha Ciesa SUPERVISOR [employer], Radha INJECTION, CEFTRIAXONE SODIUM, PER 250 MG Ordered: 20-Aug-2015 Pending Ciesa SUPER[employer]OR [employer], Radha Ciesa SUPERVISOR [employer], Radha INJECTION, CEFTRIAXONE SODIUM, PER 250 MG Ordered: 07-Aug-2014 Pending Ciesa SUPERVISOR [employer] ASSEMBLY, Radha Ciesa SUPERVISOR [employer] ASSEM[employer]Y, Radha INJECTION, CEFTRIAXONE SODIUM, PER 250 MG Ordered: 06-Aug-2014 Pending Ciesa SUPERVISOR [employer] LINK ASSEMBLY, Radha Ciesa SUPERVISOR [employer] LINK ASSEMBLY, Radha INJECTION, CEFTRIAXONE SODIUM, PER 250 MG Ordered: 18-Nov-2016 Pending Ciesa SUPERVISOR [employer] LINK ASSEMBLY, Radha Ciesa SUPERVISOR [employer] L[employer]SEM[employer]Y, Radha INJECTION, KETOROLAC TROMETHAMINE, PER 15 MG Ordered: 24-Mar-2017 Pending Ciesa SUPERVISOR [employer] LINK ASSEMBLY, Radha Ciesa SUPERVISOR [employer] LINK ASSEMBLY, Radha INJECTION, KETOROLAC TROMETHAMINE, PER 15 MG Ordered: 07-Apr-2017 Pending Ciesa SUPERVISOR [employer] LINK ASSEMBLY, Radha Ciesa SUPERVISOR [employer] ASSEM[employer]Y, Radha INJECTION, KETOROLAC TROMETHAMINE, PER 15 MG Ordered: 12-Jul-2017 Pending Ciesa SUPERVISOR [employer] LINK ASSEMBLY, Radha Ciesa SUPERVISOR [employer] LINK ASSEM[employer]Y, Radha INJECTION, METHYLPREDNISOLONE SODIUM SUCCINATE, UP TO 125 MG Ordered: 18-Nov-2016 Pending Ciesa SUPERVISOR [employer] L[employer] AS[employer]BLY, Radha Ciesa SUPERVISOR [employer], Radha INJECTION, METHYLPREDNISOLONE SODIUM SUCCINATE, UP TO 125 MG Ordered: 31-Mar-2011 Pending Jackie Christina DO INJECTION, METHYLPREDNISOLONE SODIUM SUCCINATE, UP TO 125 MG Ordered: 21-Aug-2015 Pending Ciesa SUPERVISOR [employer] LINK ASSEMBLY, Radha Ciesa SUPERVISOR [employer] AS[employer], Radha INJECTION, METHYLPREDNISOLONE SODIUM SUCCINATE, UP TO 125 MG Ordered: 25-Sep-2011 Pending Ciesa SUPERVISOR [employer] LINK ASSEMBLY, Radha Ciesa SUPERVISOR [employer] LINK ASSEMBLY, Radha INJECTION, METHYLPREDNISOLONE SODIUM SUCCINATE, UP TO 125 MG Ordered: 06-Aug-2014 Pending Ciesa SUPERVISOR [employer] LINK ASSEMBLY, Radha Ciesa SUPERVISOR [employer] LINK ASSEM[employer]Y, Radha INJECTION, METHYLPREDNISOLONE SODIUM SUCCINATE, UP TO 125 MG Ordered: 07-Jun-2015 Pending Liset HUTCHINSON, Giovani INJECTION, METHYLPREDNISOLONE SODIUM SUCCINATE, UP TO 125 MG Ordered: 19-Aug-2015 Pending Ciesa SUPERVISOR [employer] LINK ASSEMBLY, Radha Ciesa SUPERVISOR [employer] LINK ASSEM[employer]Y, Radha INJECTION, METHYLPREDNISOLONE SODIUM SUCCINATE, UP TO 125 MG Ordered: 31-Jul-2014 Pending Kita HUTCHINSON, Vanessa Durham INJECTION, METHYLPREDNISOLONE SODIUM SUCCINATE, UP TO 125 MG Ordered: 30-Sep-2011 Pending Fast DO, Jackie A INJECTION, METHYLPREDNISOLONE SODIUM SUCCINATE, UP TO 125 MG Ordered: 06-Jun-2015 Pending Liset HUTCHINSON, Giovani INJECTION, METHYLPREDNISOLONE SODIUM SUCCINATE, UP TO 125 MG Ordered: 08-Aug-2014 Pending Ciesa SUPERVISOR [employer] LINK ASSEMBLY, Radha Ciesa SUPERVISOR [employer] L[employer] AS[employer]Y, Radha INJECTION, METHYLPREDNISOLONE SODIUM SUCCINATE, UP TO 125 MG Ordered: 06-Sep-2012 Pending Abi JHAVERI, Anahi INJECTION, METHYLPREDNISOLONE SODIUM SUCCINATE, UP TO 125 MG Ordered: 07-Aug-2014 Pending Ciesa SUPERVISOR [employer] LINK ASSEMBLY, Radha Ciesa SUPERVISOR [employer] ASSEM[employer]Y, Radha INJECTION, METHYLPREDNISOLONE SODIUM SUCCINATE, UP TO 125 MG Ordered: 26-Oct-2012 Pending Fast DO, Jackie A INJECTION, METHYLPREDNISOLONE SODIUM SUCCINATE, UP TO 125 MG Ordered: 20-Aug-2015 Pending Ciesa SUPERVISOR [employer] LINK ASSEMBLY, Radha Ciesa SUPERVISOR [employer] LINK ASSEMBLY, Radha INJECTION, METHYLPREDNISOLONE SODIUM SUCCINATE, UP TO [...] BLD CNT, COMPL CBC W/AUTO DIFF WBC (47615) Indication: Benign essential hypertension Other and unspecified hyperlipidemia : DISCONTINUED - LIPID PANEL (79803) Indication: Other and unspecified hyperlipidemia Hypothyroidism : DISCONTINUED - TSH (28708) Indication: Hypothyroidism Other and unspecified hyperlipidemia : DISCONTINUED - LIPID PANEL (10978) Indication: Other and unspecified hyperlipidemia DIABETES MELLITUS WITHOUT MENTION OF COMPLICATION; TYPE II OR UNSPECIFIED TYPE, NOT STATED UNCONTROLLED : DISCONTINUED - MICROALBUMIN: CREATININE RATIO (58299) AND (28797) Indication: DIABETES MELLITUS WITHOUT MENTION OF COMPLICATION; TYPE II OR UNSPECIFIED TYPE, NOT STATED UNCONTROLLED DIABETES MELLITUS WITHOUT MENTION OF COMPLICATION; TYPE II OR UNSPECIFIED TYPE, NOT STATED UNCONTROLLED : DISCONTINUED - METABOLIC PANEL, COMPREHENSIVE (76532) Indication: DIABETES MELLITUS WITHOUT MENTION OF COMPLICATION; TYPE II OR UNSPECIFIED TYPE, NOT STATED UNCONTROLLED DIABETES MELLITUS WITHOUT MENTION OF COMPLICATION; TYPE II OR UNSPECIFIED TYPE, NOT STATED UNCONTROLLED : DISCONTINUED - CBC WITH MANUAL DIFF (15512) Indication: DIABETES MELLITUS WITHOUT MENTION OF COMPLICATION; TYPE II OR UNSPECIFIED TYPE, NOT STATED UNCONTROLLED DIABETES MELLITUS WITHOUT MENTION OF COMPLICATION; TYPE II OR UNSPECIFIED TYPE, NOT STATED UNCONTROLLED : DISCONTINUED - METABOLIC PANEL, COMPREHENSIVE ([id number]) Indication: DIABETES MELLITUS WITHOUT MENTION OF COMPLICATION; [...] mellitus, uncontrolled : DISCONTINUED - LIPID PANEL (80735) Indication: Type 2 or unspecified type diabetes [...] Indication: Meralgia paresthetica Encounters Office Visit On: 20-Apr-2018 12:43 Encounter Reason: [...] and she is feeling better [facility] Diagnosis: DIABETES MELLITUS WITHOUT MENTION OF COMPLICATION; [...] for Flu like symptoms: Son diagnosed with [id number] Diagnosis: BRONCHITIS, NOT SPECIFIED ACUTE OR CHRONIC [...] patient is following up for include Al maikel identified problems below ,blood sugar issues ,high [...] he wants her to do exercise at [employer] and has her set up for activiity [...] she is exercising-- she is doing the [facility] Stay [place] 25-30 min 3 x a day - [...] : (180's). 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
--- OUTSIDE RECORDS SUMMARY | 2018-09-20 12:08 | XMS RPT_ITS | Continuity of Care Document ---
:1950 Author Organization [facility] Address [address] [place] [address] Phone Care Team Providers Name Role Phone Addison LADONNADafne Unavailable Juan Catherine Unavailable Rogelio Granado Unavailable Lindsey Cheek Unavailable Unavailable SlaGloria william LPN Unavailable Unavailable Yuval Rodas Unavailable Unavailable [...] Refills: 1 Ordered:19-Aug-2016 Dafne Jaime CNP, CNP Dafne Mota Start : 19-Aug-2016 Active Desoximetasone [...] days Quantity: 28 {Tablet} Refills: 0 Ordered:14-Jun-2006 PiyushBelen Start : 14-Jun-2006 End : 20-Oct-2006 Inactive Atenolol 50 MG Oral Tablet 1 (one) Tablet one in am, 2 in pm for 90 days Quantity: 120 {Tablet} Refills: 3 Ordered:24-Mar-2017 Tgezraa CHICKEN CATCHER, [facility] Start : 24-Mar-2017 End : 24-Mar-2017 Inactive Atenolol 50 MG Oral Tablet 1 (one) Tablet one in am, 2 in pm for 90 days Quantity: 180 {Tablet} Refills: 3 Ordered:24-Mar-2017 Tgezraa CHICKEN CATCHER, [facility] Radha Start : 24-Mar-2017 End : [...] days Quantity: 20 {Capsule} Refills: 0 Ordered:15-Jun-2014 Curtisa CHICKEN CATCHER, Dafne Monterroso CHICKEN CATCHER, Radha Start : 15-Jun-2014 End : 25-Jun-2014 [...] Inactive Comments:05/23/07 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, 10MG (Oral Tablet) 1 tab Tablet [...] : 09-Dec-2017 End : 19-Jan-2018 Inactive Pen Burna 31G X 6 MM Miscellaneous uad Misc [...] Quantity: 20 {Tablet} Refills: 0 Ordered:19-Aug-2015 Tggreg CHICKEN CATCHER, Dafne Kriss [place], Radha Start : 19-Aug-2015 [...] 24-Aug-2011 End : 03-Feb-2012 Inactive VITAMIN D, 19617PFRX (Oral Capsule) 1 (one) Capsule q week [...] Alex DO End : 12-Mar-2006 Discontinued Ergocalciferol 26066 UNIT Oral Capsule 1 (one) Capsule Capsule twice weekly for 0 days Quantity: 24 {QS} Refills: 0 Ordered:24-Mar-2017 Gloria Hammer LPN Start : 21-Aug-2016 End : 24-Mar-2017 Discontinued [...] Quantity: 3 {Inhaler} Refills: 2 Ordered:17-Feb-2016 Slarb LITHOGRAPHIC PRESS OPERATOR APPRENTICE, Gloria Start : 11-Feb-2016 End : 17-Feb-2016 Discontinued Flovent HFA 110 MCG/ACT Inhalation Aerosol 2 Puff bid for 90 days Quantity: 30 {QS} Refills: 3 Ordered:17-Feb-2016 Slarb LITHOGRAPHIC PRESS OPERATOR APPRENTICE, Gloria Start : 11-Feb-2016 End : 17-Feb-2016 Discontinued GUAIATUSSIN AC, 100-10MG/5ML (Oral Syrup) 1 Syrup TID prn for 0 days Quantity: 8 {Ounce(s)} Refills: 0 Ordered:18-Mar-2012 Ivanna Maddox Start : 18-Mar-2012 End : 18-Mar-2012 Discontinued Comments:eight ounces Ipratropium-Albuterol 0.5-2.5 (3) MG/3ML Inhalation Solution 1 (one) Solution Solution qid PRN for 0 days Quantity: 90 {QS} Refills: 3 Ordered:13-May-2016 Slarb LITHOGRAPHIC PRESS OPERATOR APPRENTICE, Gloria Start : 13-Feb-2016 End : 13-May-2016 [...] Quantity: 30 {Tablet} Refills: 6 Ordered:31-Dec-2017 Addison CHICKEN CATCHER, Dafne Monterroso CNP, Dafne Mota Start : [...] days Quantity: 30 {Tablet} Refills: 0 Ordered:26-Nov-2014 AngieIvanna kearns Start : 31-Mar-2013 End : 26-Nov-2014 Discontinued [...] Lead Electrocardiogram Result: Comments: See Note; NOTES: [facility] Cardiovascular Services [address] [place] [address] 12 Lead EKG 01/22/18 2044 MR#: [id number] Acct: [id number] Name: IMANI VINSON Lottie p #: [id number] : 1950 67 From: Ramiro Moreno MD [...] Confirmed by Elia UNGER MD, RAMIRO ([id number]), purchase request editor RUBI VILLATORO ([id number]) on 01/25/2018 3:09:19 PM Referred By: Confirmed By:RAMIRO MORENO MD 01/25/18 1509 Date Ramiro Moreno MD CC: Dafne Jaime LOAN INSPECTOR; Tyson Hernandez DO Signed 24-Jan-2018 Emergency Department Summary Result: Comments: See Note; NOTES: [facility] Medical Records Department [address] [place] [address] Emergency Department Summary 01/22/18 2318 MR#: [id number] Acct: [id number] Name: IMANI VINSON Rep #: [id number] : 1950 67 From: Tyson Hernandez DO [...] 2. Hypertension This note was generated with [employer] dictation software. It may contain incorrect words, [...] your Primary Care Provider. Call [facility] ([phone]) or report to the closest Emergency Room. Call 911 if necessary. 01/24/18 0026 <Electronically signed by Tyson Hernandez DO> Date _ Tyson Hernandez DO Cosigner Signature (If Indicated): Date CC: Dafne Jaime LOAN INSPECTOR 30-Dec-2017 12 Lead Electrocardiogram Result: Comments: See Note; NOTES: [facility] Cardiovascular Services [address] [place] [address] 12 Lead EKG 12/25/17 1326 MR#: [id number] Acct: [id number] Name: IMANI VINSON Lottie p #: [id number] : 1950 67 From: Ramiro Moreno MD [...] Confirme d by RAMIRO MORENO MD ([id number]), purchase request editor RUBI VILLATORO ([id number]) on 12/30/2017 3:06:27 PM Referred By: Yoselin Oconnell Confirmed By:RAMIRO MORENO MD 12/30/17 1506 Date _ Ramiro Moreno MD CC: Dafne Jaime NP; Ivanna Puri MD Signed 25-Dec-2017 Emergency Department Summary Result: Comments: See Note; NOTES: [facility] Medical Records Department [address] [place] [address] Emergency Department Summary 12/25/17 1538 MR#: [id number] Acct: [id number] Name: IMANI VINSON Rep #: [id number] : 1950 67 From: Ivanna Puri MD [...] Cephalgia, improved This note was generated with [employer] dictation software. It may contain inco rrect [...] Primary Ca re Provider. Call [facility] ([phone]) or report to the closest Emergency Room. Call 911 if necessary. 12/25/17 1636 <Electronically signed by Ivanna Puri MD> Date Ivanna Puri MD Cosigner Signature (If Indicated): Date CC: Dafne Jaime NP 25-Dec-2017 Discharge Instruction Result: Comments: See Note; NOTES: [facility] Medical Records Department [address] [place] [address] Discharge Instruction 12/25/17 1542 MR#: [id number] Acct: [id number] Name: IMANI VINSON Rep #: [id number] : 1950 67 From: Ivanna Puri MD [...] your Primary Care Provider. Call [facility] ([phone]) or report to the closest Emergency Room. Call 911 if necessary. 12/25/17 1543 <Electronically signed by Ivanna Puri MD> D ate Ivanna Puri MD Cosigner Signature (If Indicated): Date CC: Dafne Jaime NP 25-Dec-2017 Chest 1 View (Portable) Result: Comments: See Note; NOTES: [facility] Imaging Services [address] [place] [address] Chest 1 View (Portable) MR#: [id number] Acct: [id number] Name: IMANI VINSON Rep #: [id number] : 1950 F 67 From: Walter Corbin MD PCP: Dafne Jaime NP Status: REG ER Study: Chest 1 View (Portable) Date of Exam: 12/25/17 Exam# [id number] Ordering Dr: Ivanna Puri MD STUDY: X-RAY [...] at 14:22 EDT Tel , Service support [phone], RAD/Chest 1 View (Portable) CC: Dafne Jaime NP; Ivanna Puri MD Motor Vehicle Dispatcher: Signed 23-Dec-2017 Abdomen/Pelvis without Cont Result: Comments: See Note; NOTES: [facility] Imaging Services [address] [place] [address] Abdomen/Pelvis without Cont MR#: [id number] Acct: [id number] Name: IMANI VINSON Rep #: [id number] : 1950 F 67 From: Leobardo Mckenzie MD PCP: Dafne Jaime NP Status: REG CLI Study: Abdomen/Pelvis without Cont Date of Exam: 12/23/17 Exam# [id number] Ordering Dr: Yoselin Oconnell LOAN INSPECTOR-C STUDY: CT ABDOMEN AND PELVIS WITHOUT CONTRAST [...] Leobardo Mckenzie MD at 12:50 EDT Tel [phone], Service support , Fax CC: Dafne Jaime NP; MARCO ANTONIO Oconnell Motor Vehicle Dispatcher: Signed 12-Feb-2017 Chest without Contrast Result: Comments: See Note; NOTES: [facility] Imaging Services [address] [place] [address] Chest without Contrast MR#: [id number] Acct: [id number] Name: IMANI VINSON Naveen Rep #: [id number] : 1950 F 66 From: Ace Olivia DO PCP: Dafne Jaime Status: REG CLI Study: Chest without Contrast Date of Exam: 02/12/17 Exam# [id number] Ordering Dr: Rogelio Granado MD STUDY: CT [...] Ace Olivia DO at 11:21 EDT Tel [phone], Eduora support , CC: Dafne Jaime; Rogelio Granado MD Motor Vehicle Dispatcher: Signed 19-Jan-2017 Chest PA and Lateral Result: Comments: See Note; NOTES: [facility] Imaging Services [address] [place] [address] Verdana 4d Chest PA and Lateral MR#: [id number] Acct: [id number] Name: IMANI VINSON Naveen Rep #: [id number] : 1950 F 66 From: Leobardo Mckenzie MD PCP: Dafne Jaime Status: REG CLI Study: Chest PA and Lateral Date of Exam: 01/19/17 Exam# [id number] Ordering Dr: Rogelio Granado MD ST UDY: [...] Leobardo Mckenzie MD at 12:43 EDT Tel [phone], Service support [phone], CC: Dafne Jaime; Rogelio Granado MD Motor Vehicle Dispatcher: Signed 17-Oct-2015 Spirometry (95954) Result: 20-Aug-2015 Chest PA and Lateral Result: Comments: See Note; NOTES: [facility] Imaging Services [address] [place] [address] Verdana 4d Chest PA and Lateral MR#: [id number] Acct: [id number] Name: IMANI FRASER Rep #: [id number] : 1950 F 64 From: Leobardo Mckenzie MD PCP: Jackie Christina DO Status: REG CLI Study: Chest PA and Lateral Date of Exam: 08/20/15 Exam# [id number] Ordering Dr: Dafne Jaime STUDY: X-RAY CHEST [...] Leobardo Mckenzie MD at 13:08 EST Tel [phone], Service support [phone] , RAD/Chest PA and Lateral IMPRESSION: Hyperinflation. No acute abnormality is seen. Electronically Signed: Leobardo Mckenzie MD at 13:08 EST Tel [phone], Service support [phone], CC: Dafne Jaime; Jackie Christina DO Motor Vehicle Dispatcher: Signed 06-Jun-2015 Chest PA and Lateral Result: Comments: See Note; NOTES: [facility] Imaging Services [address] [place] [address] Verdana 4d Chest PA and Lateral MR#: [id number] Acct: [id number] Name: IMANI FRASER Rep #: [id number] : 1950 F 64 From: Leobardo Mckenzie MD PCP: Jackie Christina DO Status: REG CLI Study: Chest PA and Lateral Date of Exam: 06/06/15 Exam# [id number] Ordering Dr: Giovani Hutchins STUDY: X-RAY CHEST [...] Leobardo Mckenzie MD at 14:52 EST Tel [phone], Service support [phone], 0056 RAD/Chest PA and Lateral IMPRESSION: Hyp erinflation. Electronically Signed: Leobardo Mckenzie MD at 14:52 EST Tel [phone], Service support [phone], CC: Jackie Hutchins Motor Vehicle Dispatcher: Signed 06-Aug-2014 Chest PA and Lateral Result: Comments: See Note; NOTES: [facility] Imaging Services [address] [place] [address] Radiology Report MR#: [id number] Acct: [id number] Name: IMANI VINSON Rep #: [id number] : 1950 F 63 From: Leobardo Mckenzie MD PCP: Jackie Christina DO Status: REG CLI Study: Chest PA and Lateral Date of Exam: 08/06/14 Exam# [id number] Ordering Dr: Dafne Jaime STUDY: X-RAY CHEST [...] Leobardo Mckenzie MD at 13:03 EST Tel [phone], Service support [phone], CC: Dafne Jaime; Jackie Christina DO Motor Vehicle Dispatcher: Signed 05-May-2013 Bilat [employer] Digital & CAD Result: Comments: See Note; NOTES: [facility] Imaging Services [address] [place] [address] Breast Imaging Report MR#: [id number] Acct: [id number] Name: IMANI VINSON Rep #: [id number] : 1950 F 62 From: Leobardo Mckenzie MD PCP: Status: PRE CLI Exam# [id number] Ordering Dr: Jackie Christina DO MAMMOGRAPHY - [...] 05, 2013 at 2:48:1 1 PM EST [phone] Electronically Signed GP/GP If you are the referring physician and would like to consult with the radiologist who provided this interpretation, please contact Leobardo thompson M.D. at [phone]. If this radiologist is unavailable, you will be directed to another radiologist to assist. If you are a patient with a question regarding this report, please contact you r referring physician directly. Professional Interpretation Provided By: [employer], Phone , These documents contain legally protected [...] of these documents. CC: Jackie Christina DO Motor Vehicle Dispatcher: Signed Immunization Name Dates Details Pneumococcal [...] smoker Vital Signs Date Test Result Details :50 Temperature 97.4 f Comments: Method: Temporal [...] kg/m2 Body Surface Area Calculated 2.24 m2 : Temperature 98.7 f Comments: Method: Oral Pulse [...] 0.00 cm Results Date Description Value Details 3-Xfd-565116:51 CALCIFEDIOL (91108) Comments: PATIENT NOT FASTINGPERFORMED BY: [facility] Ajqqzw1735 [facility] [id number] Vitamin D, 25-Hydroxy 35.3 ng/mL (Normal) Range: 30.0-100.0 Comments: Vitamin D deficiency has been defined by the Old[employer]ams ofMedicine and an Endocrine Society practice guideline as alevel of serum 25-OH vitamin D less than 20 ng/mL (1,2).The Endocrine Society went on to further define vitamin Dinsufficiency as a level between 21 and 29 ng/mL (2).1. IOM ([employer] of Medicine). 2010. Dietary reference intakes for calcium and D. [place]: The National Academies Press.2. Eleni MF, Lorne MORTON, Dayron WALTON, et al. Evaluation, treatment, and prevention of vitamin D deficiency: an Endocrine Society clinical practice guideline. JCEM. 2010; 96(7):1911-30. 4-Vss-775848:43 METANEPHRINES - URINE (66162) Comments: PATIENT NOT FASTINGPERFORMED BY: [employer] [facility] Pfyohzmbvl3735 [facility] [id number] Metanephrine, U,24hr 120 {ug/24_hr} (Normal) Range: 45-290 Comments: (Hypertensive) >17 years 11 months: 35 - 460 Metanephrine, Ur 60 ug/L (Normal) Normetanephr.,U,24h 404 {ug/24_hr} (Normal) Range: 82-500 Comments: (Hypertensive) >17 years 11 months: 110 - 1050 Normetanephrine, Ur 202 ug/L (Normal) 7-Umn-824842:43 CATECHOLAMINES TOTAL, URINE Comments: PATIENT NOT FASTINGPERFORMED BY: [employer] [facility] [address] [id number] Information: [id number] (93877) Dopamine, Ur, 24hr 356 {ug/24_hr} (Normal) Range: 0-510 Dopamine, Urine 178 ug/L (Normal) Norepinephrine,U,24h 78 {ug/24_hr} (Normal) Range: 0-135 Norepinephrine, Ur 39 ug/L (Normal) Epinephrine, U, 24hr 4 {ug/24_hr} (Normal) Range: 0-20 Epinephrine, Urine 2 ug/L (Normal) 9-Npt-801188:43 URINE VMA (79793) Comments: PATIENT NOT FASTINGPERFORMED BY: [facility]1447 [facility] [id number] VMA, Urine, 24hr 5.0 {mg/24_hr} (Normal) Range: 0.0-7.5 Comments: This test was developed and its performance characteristicsdetermined by [employer]. It has not been cleared or approvedby the Food and Drug Administration. VMA, Urine 2.5 mg/L (Normal) 82-Ohx-907434:44 URINE MEHREEN CULTURE-IDENTIFICATN Comments: PERFORMED BY: [facility]6370 [facility] [id number] Information: SRC: ([id number]) Result 1 MUG (Normal) Comments: Mixed urogenital flora1,000 Colonies/mL Urine Culture,Comprehensive Final report (Normal) 41-Lnq-653971:41 Urinalysis, Office (09660) UA - LEUKOCYTE ESTERASE Moderate (Normal) UA - NITRITE Negative (Normal) URINE UROBILINGN SUNNY TIMED Normal mg/dL (Normal) UA - PROTEIN Negative mg/dL (Normal) UA - PH 6.0 (Normal) UA - BLOOD Hemolyzed Trace (Normal) UA - SPECIFIC GRAVITY 1.020 (Normal) UA - KETONES Negative mg/dL (Normal) UA - BILIRUBIN Negative (Normal) UA - GLUCOSE Negative (Normal) 80-Jyn-111846:10 CBC & PLATELETS (AUTO) Comments: PATIENT NOT FASTINGPERFORMED BY: [facility] [id number] (30953) Platelets 270 {x10E3/uL} (Normal) Range: 150-379 RDW 13.8 % (Normal) Range: 12.3-15.4 MCHC 33.7 g/dL (Normal) Range: 31.5-35.7 MCH 29.7 pg (Normal) Range: 26.6-33.0 MCV 88 fL (Normal) Range: 79-97 Hematocrit 40.1 % (Normal) Range: 34.0-46.6 Hemoglobin 13.5 g/dL (Normal) Range: 11.1-15.9 RBC 4.54 {x10E6/uL} (Normal) Range: 3.77-5.28 WBC 6.8 {x10E3/uL} (Normal) Range: 3.4-10.8 79-Tiw-061005:10 RENAL FUNCTION PANEL (17393) Comments: PATIENT NOT FASTINGPERFORMED BY: [facility]6370 [facility] [id number] Albumin 3.8 g/dL (Normal) Range: 3.6-4.8 Phosphorus [...] 8-27 Glucose 133 mg/dL (Abnormal) Range: 65-99 64-Rzk-848665:10 PARATHORMONE (16486) Comments: PATIENT NOT FASTINGPERFORMED BY: [facility] HospitalQxsmqe2786 [facility] [id number] PTH, Intact 32 pg/mL (Normal) Range: 15-65 32-Wfq-698418:00 Urinalysis, Complete Comments: How was Urine Obtained? EXPRESS MANAGER TO [facility] [address] [place], [address] MUCUS, URINE 0 SEEN {/hpf} (Normal) BACTERIA [...] (Normal) CLARITY Clear (Normal) COLOR Yellow (Normal) :04 CBC W/Diff, Automated Comments: [facility] [address] [place], [place], [id number] PLT EST ADEQUATE (Normal) SMEAR COMMENT SCANNED [...] 4.2-5.4 WBC 9.7 K/mm3 (Normal) Range: 4.4-11.0 35-Ehx-782774:04 Comprehensive Metabolic Profil Comments: [facility] [address] [place], [place], [id number] GAP 8 (Normal) Range: 5-15 CO2 26.0 [...] A.D.A. criteria.Please note revised GLUCOSE reference range etbtqwths22/02/2018. 24-Mxg-590873:04 Lipase Comments: [facility] [address] [place], [id number] LIPASE 346 U/L (Normal) Range: 73-393 97-Kou-473181:04 Troponin-I Comments: [facility] [address] [place], [address] TROPONIN-I < 0.015 ng/mL (Normal) Comments: TROPONIN-I EXPECTED VALUES <0.045 Negative 0.045 - 0.590 Consistent with Cardiac Damage > OR = 0.600 Critical Value Not every elevated troponin is indicative of CT. T hesevalues should be used with clinical judgement in examiningthe patient's clinical picture for diagnosis. To establisha diagnosis of CT versus myocardial injury, there must be ademonstrated rise and/ or fall in the troponin values, inaddition to ischemic symptoms, EKG changes, new regionalwall motion abnormality, and/or angiographical evidence. PLEASE NOTE: REFERENCE RANGES EDITED 11/08/1712-Jan-201813-Jam-214770:27 TSH (THYROID STIMULATING Comments: January 12; PATIENT WAS FASTINGPERFORMED BY: [facility] [employer]70 [facility] [id number] HORMONE) (31153) TSH 1.920 {uIU/mL} (Normal) Range: 0.450-4.500 08-Kme-530966:27 CBC & PLATELETS (AUTO) Comments: after January 12; PATIENT WAS FASTINGPERFORMED BY: [facility] Rjsxto5127 [facility] [id number] Information: [id number] (49419) Platelets 288 {x10E3/uL} (Normal) Range: 150-379 RDW 13.8 % (Normal) Range: 12.3-15.4 MCHC 34.8 g/dL (Normal) Range: 31.5-35.7 MCH 30.8 pg (Normal) Range: 26.6-33.0 MCV 88 fL (Normal) Range: 79-97 Hematocrit 40.2 % (Normal) Range: 34.0-46.6 Hemoglobin 14.0 g/dL (Normal) Range: 11.1-15.9 RBC 4.55 {x10E6/uL} (Normal) Range: 3.77-5.28 WBC 6.2 {x10E3/uL} (Normal) Range: 3.4-10.8 52-Eeb-438781:27 LIPID PANEL (67887) Comments: after January 12; PATIENT WAS FASTINGPERFORMED BY: [facility] HospitalEaijpp9710 [facility] [id number] LDL/HDL Ratio 2.1 {ratio} (Normal) Range: 0.0-3.2 Comments: LDL/HDL Ratio Men Women 1/2 Avg.Risk 1.0 1.5 Av g.Risk 3.6 3.2 2X Avg.Risk 6.2 5.0 3X Avg.Risk 8.0 6.1 LDL Cholesterol Calc 88 mg/dL (Normal) Range: 0-99 VLDL Cholesterol Edgardo 46 mg/dL (Abnormal) Range: 5-40 HDL Cholesterol 42 mg/dL (Normal) Triglycerides 230 mg/dL (Abnormal) Range: 0-149 Cholesterol, Total 176 mg/dL (Normal) Range: 100-199 23-Cpv-578361:27 HGB A1C (53521) Comments: do after January 12; PATIENT WAS FASTINGPERFORMED BY: [facility] Tbzpib0403 [facility] [id number] Hemoglobin A1c 7.6 % (Abnormal) Range: 4.8-5.6 Comments: . Pre-diabetes: 5.7 - 6.4 Diabetes: >6.4 Glycemic control for adults with diabetes: <7.0 23-Nzm-045839:30 Basic Metabolic Profile (BMP) Comments: [facility] [address] [place], [address] GAP 8 (Normal) Range: 5-15 CO2 25.0 [...] A.D.A. criteria.Please note revised GLUCOSE reference range iovtneavj35/02/2018. 44-Nxa-478420:30 Carboxyhemoglobin Frac (CO) Comments: [facility] [address] [place], [place], [address] COHb 2.1 % (Abnormal) Range: 0.0-1.5 Comments: * NON-SMOKER RANGE 1.6 - 5.0% * LIGHT SMOKER RANGE 5.1 - 9.0% * HEAVY SMOKER RANGE 91-Van-715278:30 CBC W/Diff, Automated Comments: [facility] [address] [place], [place], [address] Absolute Lymph 0.66 {X10_3/ul} (Abnormal) Range: 0.83-4.51 [...] 4.2-5.4 WBC 12.9 K/mm3 (Abnormal) Range: 4.4-11.0 40-Ghx-767541:30 Lipase Comments: [facility] [address] [place], [place], [address] LIPASE 126 U/L (Normal) Range: 73-393 47-Inr-432478:30 Liver Profile Comments: [address] [place], [place], [id number] D BILI 0.13 mg/dL (Normal) Range: 0.00-0.30 T BILI 0.50 mg/dL (Normal) Range: 0.20-1.00 ALT 32 U/L (Normal) Range: 13-56 ALK P 154 U/L (Abnormal) Range: 45-117 AST 25 U/L (Normal) Range: 15-37 GLOB 4.2 g/dL (Normal) Range: 2.2-4.2 ALB 3.5 g/dL (Normal) Range: 3.2-5.0 T PROT 7.7 g/dL (Normal) Range: 6.4-8.2 68-Xix-268559:30 Urinalysis, Complete Comments: Order Date: 12/25/17How was Urine Obtained? CLEAN [facility] [address] [place], [place], [id number] MUCUS, URINE 0 SEEN {/hpf} (Normal) BACTERIA [...] (Abnormal) CLARITY Clear (Normal) COLOR Yellow (Normal) 37-Kir-678599:17 Urinalysis, Office (93647) UA - LEUKOCYTE ESTERASE Negative (Normal) UA - NITRITE Negative (Normal) URINE UROBILINGN SUNNY TIMED Normal mg/dL (Normal) UA - PROTEIN Negative mg/dL (Normal) UA - PH 5.0 (Normal) Comments: 5.5 UA - BLOOD Hemolyzed Trace (Normal) UA - SPECIFIC GRAVITY 1.005 (Normal) UA - KETONES Negative mg/dL (Normal) UA - BILIRUBIN Negative (Normal) UA - GLUCOSE 500 (Abnormal) 07-Had-258804:15 URINE MEHREEN CULTURE-SUNNY COL Comments: PATIENT NOT FASTINGPERFORMED BY: [facility] [id number] Information: SRC:UC COUNT ([id number]) Result 1 MUG (Normal) Comments: Mixed urogenital flora10,000-25,000 colony forming units per mL Urine Final report (Normal) Culture,Comprehensive 88-Azu-962542:48 URINE MEHREEN CULTURE-IDENTIFICATN Comments: PATIENT NOT FASTINGPERFORMED BY: [employer] [facility] [id number] Information: SRC: ([id number]) Antimicrobial MIHEAD (Normal) Comments: S = Susceptible; [...] mL (Abnormal) Urine Final report Culture,Comprehensive (Abnormal) 10-Crt-671457:24 Urinalysis, Office (97583) UA - LEUKOCYTE ESTERASE Small (Normal) UA - NITRITE Negative (Normal) URINE UROBILINGN SUNNY TIMED Normal mg/dL (Normal) UA - PROTEIN Trace mg/dL (Normal) UA - PH 6 (Abnormal) UA - BLOOD Hemolyzed Large (Normal) UA - SPECIFIC GRAVITY 1.015 (Normal) UA - KETONES Negative mg/dL (Normal) UA - BILIRUBIN Negative (Normal) UA - GLUCOSE 500 (Abnormal) 65-Hkn-176921:33 Blood Glucose , Office (97281) Blood Glucose , Office 159 (Normal) 39-Zin-627687:33 HgA1C , Office (14709) HgA1C , Office 7.0 % (Normal) Range: 4.6 - 7.1 71-Vne-315403:10 CBC, Platelets & Auto Diff Comments: PATIENT WAS FASTINGPERFORMED BY: [facility] HospitalRttbnh3645 [facility] [id number] (40422) Immature Grans (Abs) 0.0 {x10E3/uL} (Normal) Range: [...] 3.77-5.28 WBC 7.0 {x10E3/uL} (Normal) Range: 3.4-10.8 :10 HGB A1C (04465) Comments: PATIENT WAS FASTINGPERFORMED BY: [employer]70 [facility] [id number] Hemoglobin A1c 7.4 % (Abnormal) Range: 4.8-5.6 Comments: . Pre-diabetes: 5.7 - 6.4 Diabetes: >6.4 Glycemic control for adults with diabetes: <7.0 :10 LIPID PANEL (21005) Comments: PATIENT WAS FASTINGPERFORMED BY: [employer]70 [facility] [id number] LDL/HDL Ratio 2.4 {ratio} (Normal) Range: 0.0-3.2 [...] Panel, Comprehensive Comments: PATIENT WAS FASTINGPERFORMED BY: [employer] Qhkolp3696 [facility] [id number] (88480) ALT (SGPT) 15 [iU]/L (Normal) Range: 0-32 [...] 8-27 Glucose 141 mg/dL (Abnormal) Range: 65-99 57-Vba-155872:10 MICROALBUMIN: CREATININE RATIO Comments: PATIENT WAS FASTINGPERFORMED BY: [employer] [facility]hl [facility] [id number] (78504) AND (33608) Alb/Creat Ratio <3.8 {mg/g_creat} (Normal) Range: 0.0-30.0 Albumin, Urine <3.0 ug/mL (Normal) Creatinine, Urine 78.1 mg/dL (Normal) 64-Kbo-845221:10 TSH (82369) Comments: PATIENT WAS FASTINGPERFORMED BY: [employer] Logxrz5385 [facility] [id number] TSH 2.160 {uIU/mL} (Normal) Range: 0.450-4.500 40-Cez-628830:10 URINALYSIS W/O MICRO (55013) Comments: PATIENT WAS FASTINGPERFORMED BY: [employer] Kikidb6874 [facility] [id number] Microscopic Examination MICNIP (Normal) Comments: Microscopic not indicated and not performed. Nitrite, Urine Negative (Normal) Urobilinogen,Semi-Qn 0.2 mg/dL (Normal) Range: 0.2-1.0 Bilirubin Negative (Normal) Occult Blood Negative (Normal) Ketones Negative (Normal) Glucose 3+ (Abnormal) Protein Negative (Normal) WBC Esterase Negative (Normal) Appearance Clear (Normal) Urine-Color Yellow (Normal) pH 5.5 (Normal) Range: 5.0-7.5 Specific Edwall >=1.030 (Abnormal) Range: 1.005-1.030 93-Bdk-224851:17 HGB A1C (73725) Comments: today; PATIENT NOT FASTINGPERFORMED BY: Xiant[address] [id number] Hemoglobin A1c 7.4 % (Abnormal) Range: 4.8-5.6 Comments: . Pre-diabetes: 5.7 - 6.4 Diabetes: >6.4 Glycemic control for adults with diabetes: <7.0 80-Xtf-082228:14 TSH (THYROID STIMULATING Comments: PATIENT WAS FASTINGPERFORMED BY: Xiant[address] [id number] HORMONE) (25710) TSH 2.750 {uIU/mL} (Normal) Range: 0.450-4.500 53-Ipa-734707:14 Lipid Panel (74954) Comments: PATIENT WAS FASTINGPERFORMED BY: Xiant[address] [id number] LDL/HDL Ratio 2.0 {ratio_units} (Normal) Range: 0.0-3.2 Comments: LDL/HDL Ratio Men Women 1/2 Avg.Risk 1.0 1.5 Av g.Risk 3.6 3.2 2X Avg.Risk 6.2 5.0 3X Avg.Risk 8.0 6.1 LDL Cholesterol Calc 96 mg/dL (Normal) Range: 0-99 VLDL Cholesterol Edgardo 22 mg/dL (Normal) Range: 5-40 HDL Cholesterol 49 mg/dL (Normal) Triglycerides 110 mg/dL (Normal) Range: 0-149 Cholesterol, Total 167 mg/dL (Normal) Range: 100-199 38-Ihw-921082:14 CALCIFEDIOL (21912) Comments: PATIENT WAS FASTINGPERFORMED BY: [address] RoadDublin [place] [id number] Vitamin D, 25-Hydroxy 30.7 ng/mL (Normal) Range: 30.0-100.0 Comments: Vitamin D deficiency has been defined by the Oldhams ofMedicine and an Endocrine Society practice guideline as alevel of serum 25-OH vitamin D less than 20 ng/mL (1,2).The Endocrine Society went on to further define vitamin Dinsufficiency as a level between 21 and 29 ng/mL (2).1. IOM (Oldhams of Medicine). 2010. Dietary reference intakes for calcium and D. [place]: The National Academies Press.2. Eleni MF, Lorne MORTON, Dayron WALTON, et al. Evaluation, treatment, and prevention of vitamin D deficiency: an Endocrine Society clinical practice guideline. JCEM. 2010; 96(7):1911-30. 75-Qdk-292598:14 Metabolic Panel, Comprehensive Comments: PATIENT WAS FASTINGPERFORMED BY: LabMyMedMatchWeisman Children's Rehabilitation HospitalOdaefl1782 [facility] [id number] (56725) ALT (SGPT) 11 [iU]/L (Normal) Range: 0-32 [...] Glucose, Serum 150 mg/dL (Abnormal) Range: 65-99 04-Tjg-499232:14 HGB A1C (12169) Comments: PATIENT WAS FASTINGPERFORMED BY: Xiant[address] [id number] Hemoglobin A1c 6.3 % (Abnormal) Range: 4.8-5.6 Comments: . Pre-diabetes: 5.7 - 6.4 Diabetes: >6.4 Glycemic control for adults with diabetes: <7.0; ADDENDA: OV 19-Jan-201712:28 Angiotensin Convert Enzyme Comments: [facility] (refer to report for specific site)refer to report for address and phone number JHONNY [phone] 51 U/L (Normal) Range: 14-82 Comments: Performed at: [address] [id number] Director: Jarrell Collazo PhD, Phone: [phone]; ADDENDA: Dr Granado 48-Neq-941142:28 Erythrocyte Sed Rate Comments: [facility] [address] [place], [place], [address] SED RATE 6 mm/h (Normal) Range: 0-30 82-Fkj-418775:35 CBC, Platelets & Auto Diff Comments: PATIENT NOT FASTINGPERFORMED BY: [address] [id number] (31732) Immature Grans (Abs) 0.0 {x10E3/uL} (Normal) Range: [...] 3.77-5.28 WBC 6.5 {x10E3/uL} (Normal) Range: 3.4-10.8 09-Wnf-810763:35 HGB A1C (26228) Comments: PATIENT NOT FASTINGPERFORMED BY: EnergyWeb SolutionsWeisman Children's Rehabilitation HospitalNwoesa1081 [facility] [id number] Hemoglobin A1c 6.7 % (Abnormal) Range: 4.8-5.6 Comments: . Pre-diabetes: 5.7 - 6.4 Diabetes: >6.4 Glycemic control for adults with diabetes: <7.0 39-Tox-069190:35 Metabolic Panel, Basic Comments: PATIENT NOT FASTINGPERFORMED BY: EnergyWeb SolutionsWeisman Children's Rehabilitation HospitalAobmit7890 [facility] [id number] (56692) Calcium, Serum 10.6 mg/dL (Abnormal) Range: 8.7-10.3 [...] Microscopic Examination Comments: PATIENT WAS FASTINGPERFORMED BY: [employer] [id number] Bacteria Few (Normal) Mucus Threads Present (Normal) Cast Type Hyaline casts (Normal) Casts Present {/lpf} (Abnormal) Epithelial Cells (non renal) 0-10 {/hpf} (Normal) Range: 0 - 10 RBC 0-2 {/hpf} (Normal) Range: 0 - 2 WBC 0-5 {/hpf} (Normal) Range: 0 - 5 :29 URINALYSIS (81851) Comments: PATIENT WAS FASTINGPERFORMED BY: Didasco63YouBeauty [place] [id number] Microscopic Examination See below: (Normal) Comments: Microscopic was indicated and was performed. Nitrite, Urine Negative (Normal) Urobilinogen,Semi-Qn 0.2 mg/dL (Normal) Range: 0.2-1.0 Bilirubin Negative (Normal) Occult Blood Negative (Normal) Ketones Negative (Normal) Glucose Negative (Normal) Protein Trace (Normal) WBC Esterase 1+ (Abnormal) Appearance Clear (Normal) Urine-Color Yellow (Normal) pH 6.0 (Normal) Range: 5.0-7.5 Specific Edwall 1.027 (Normal) Range: 1.005-1.030 :29 MICROALBUMIN: CREATININE RATIO Comments: PATIENT WAS FASTINGPERFORMED BY: [employer] [place] [id number] (87714) AND (61350) Microalb/Creat Ratio 11.0 {mg/g_creat} (Normal) Range: 0.0-30.0 Microalbumin, Urine 29.4 ug/mL (Normal) Creatinine, Urine 266.4 mg/dL (Normal) 85-Ajr-294440:29 CALCIFEDIOL (57752) Comments: PATIENT WAS FASTINGPERFORMED BY: [employer] Ainoxz7007 [facility] [id number] Vitamin D, 25-Hydroxy 29.5 ng/mL (Abnormal) Range: 30.0-100.0 Comments: Vitamin D deficiency has been defined by the Oldhams ofLouis Stokes [facility] Medical Centercine and an Endocrine Society practice guideline as alevel of serum 25-OH vitamin D less than 20 ng/mL (1,2).The Endocrine Society went on to further define vitamin Dinsufficiency as a level between 21 and 29 ng/mL (2).1. IOM (Oldhams of Medicine). 2010. Dietary reference intakes for calcium and D. [place]: The National Academies Press.2. Eleni MF, Lorne MORTON, Dayron WALTON, et al. Evaluation, treatment, and prevention of vitamin D deficiency: an Endocrine Society clinical practice guideline. JCEM. 2010; 96(7):1911-30. 33-Kdg-139127:29 Lipid Panel (73206) Comments: PATIENT WAS FASTINGPERFORMED BY: TripleGift6370 [facility] [id number] LDL/HDL Ratio 1.9 {ratio_units} (Normal) Range: 0.0-3.2 [...] Panel, Comprehensive Comments: PATIENT WAS FASTINGPERFORMED BY: [employer] Gqianw4611 [facility] [id number] (85597) ALT (SGPT) 14 [iU]/L (Normal) Range: 0-32 [...] Glucose, Serum 77 mg/dL (Normal) Range: 65-99 20-Nqj-033517:29 CBC, Platelets & Auto Diff Comments: PATIENT WAS FASTINGPERFORMED BY: LabCoWeisman Children's Rehabilitation HospitalPgmjeb7179 [facility] [id number] (20749) Immature Grans (Abs) 0.0 {x10E3/uL} (Normal) Range: [...] 3.77-5.28 WBC 6.6 {x10E3/uL} (Normal) Range: 3.4-10.8 74-Owa-267842:29 TSH (78982) Comments: PATIENT WAS FASTINGPERFORMED BY: LabCoWeisman Children's Rehabilitation HospitalMqttrm2460 [facility] [id number] TSH 2.240 {uIU/mL} (Normal) Range: 0.450-4.500 67-Arz-262290:29 HGB A1C (55069) Comments: PATIENT WAS FASTINGPERFORMED BY: LabCoWeisman Children's Rehabilitation HospitalPwmdky8403 [facility] [id number] Hemoglobin A1c 6.7 % (Abnormal) Range: 4.8-5.6 Comments: . Pre-diabetes: 5.7 - 6.4 Diabetes: >6.4 Glycemic control for adults with diabetes: <7.0 25-Phr-482294:23 HGB A1C (03827) Comments: PATIENT NOT FASTINGPERFORMED BY: PrestoBox[address] [id number] Hemoglobin A1c 6.4 % (Abnormal) Range: 4.8-5.6 Comments: . Pre-diabetes: 5.7 - 6.4 Diabetes: >6.4 Glycemic control for adults with diabetes: <7.0 :06 Blood Glucose , Office (34879) Blood Glucose , Office 84 (Normal) : Hemoglobin A1c 6.7 % (Abnormal) Comments: PATIENT NOT FASTINGPERFORMED BY: [address] [id number] Information: [id number] FEE [id number] Range: 4.8-5.6 Comments: . Pre-diabetes: 5.7 - 6.4 Diabetes: >6.4 Glycemic control for adults with diabetes: <7.0 :13 HgA1C , Office (51115) HgA1C , Office 6.6 % (Normal) Range: 4.6 - 7.1 :07 Blood Glucose , Office (81448) Blood Glucose , Office 97 (Normal) :51 HgA1C , Office (02777) HgA1C , Office 6.9 % (Normal) Range: 4.6 - 7.1 :51 Blood Glucose , Office (64647) Blood Glucose , Office 129 (Normal) 18-Kpu-231014:35 Sputum Culture (29467) Comments: PATIENT NOT FASTINGPERFORMED BY: [address] [id number] Information: [id number] Result 1 RRF (Normal) Comments: Routine respiratory marilin Lower Respiratory Culture Final report (Normal) :10 Rapid Flu (22369 x 2) Comments: neg Influenza A Ag neg (Normal) 4-Wts-714808:31 Vitamin D Hydroxy (56265) Comments: PATIENT WAS FASTINGPERFORMED BY: [address] StreetDublin [place] [id number] Vitamin D, 25-Hydroxy 34.0 ng/mL (Normal) Range: 30.0-100.0 Comments: Vitamin D deficiency has been defined by the Oldhams ofMedicine and an Endocrine Society practice guideline as alevel of serum 25-OH vitamin D less than 20 ng/mL (1,2).The Endocrine Society went on to further define vitamin Dinsufficiency as a level between 21 and 29 ng/mL (2).1. IOM (Oldhams of Medicine). 2010. Dietary reference intakes for calcium and D. [place]: The National AcademNovalux Press.2. Eleni MF, Lorne MORTON, Dayron WALTON, et al. Evaluation, treatment, and prevention of vitamin D deficiency: an Endocrine Society clinical practice guideline. JCEM. 2010; 96(7):1911-30. 0-Sjj-238717:31 Amylase (58953) Comments: PATIENT WAS FASTINGPERFORMED BY: LabMyMedMatch Celdka3821 [facility] [id number] Amylase, Serum 32 U/L (Normal) Range: 31-124 8-Kdv-995855:31 Lipase (22178) Comments: PATIENT WAS FASTINGPERFORMED BY: LabCo Inqlgg6053 [facility] [id number] Lipase, Serum 47 U/L (Normal) Range: 0-59 9-Usv-949890:31 LIPID PANEL (32517) Comments: PATIENT WAS FASTINGPERFORMED BY: LabCo Ilcvpa9024 [facility] [id number] LDL/HDL Ratio 1.7 {ratio_units} (Normal) Range: 0.0-3.2 [...] 155 mg/dL (Normal) Range: 100-199 :31 TSH (95119) Comments: PATIENT WAS FASTINGPERFORMED BY: LabCoWeisman Children's Rehabilitation HospitalBlrofb2651 [facility] [id number] TSH 1.140 {uIU/mL} (Normal) Range: 0.450-4.500 0-Ktp-956970:31 METABOLIC PANEL, Comments: PATIENT WAS FASTINGPERFORMED BY: LabCoWeisman Children's Rehabilitation HospitalMkdpxm1619 [facility] [id number] Information: [id number] COMPREHENSIVE (01582) ALT (SGPT) 20 [iU]/L (Normal) Range: 0-32 [...] (Normal) Range: 65-99 :12 HgA1C , Office (13330) HgA1C , Office 6.4 % (Normal) Range: 4.6 - 7.1 :21 HgA1C , Office (46643) HgA1C , Office 6.8 % (Normal) Range: 4.6 - 7.1 :21 Blood Glucose , Office (05841) Blood Glucose , Office 122 (Normal) :33 CBC W/Diff, Automated Comments: Test performed at:[facility] [address] [place] [address] Absolute Lymph 1.21 {X10_3/ul} (Normal) Range: 0.83-4.51 [...] 4.2-5.4 WBC 6.0 K/mm3 (Normal) Range: 4.4-11.0 33-Knm-826068:33 Comprehensive Metabolic Profil Comments: Test performed at:[facility] Avfpvwpnus[address] [place] [address] GAP 8 (Normal) Range: 5-15 [...] Comments: Please note revised CREATININE reference range pfmnilekk90/22/2015. BUN 13 mg/dL (Normal) Range: 7-18 GLU 84 mg/dL (Normal) Range: 70-110 46-Rzl-160961:33 Lipid Profile Comments: Test performed at:[facility] [address] [place] [id number] ; non-emergent till apt VLDL 24 mg/dL [...] 200-240 mg/dL Borderline >240 mg/dL High Risk 23-Upp-053286:33 Microalb:Creat Ratio,Random UR Comments: Test performed at:[facility] [address] [place] [address] MALB:CREAT Test not performed {mg/g_CRE} (Normal) MICROALBUMIN,UR < 5.0 mg/L (Normal) UR CREAT 179.00 mg/dL (Normal) 65-Gbc-282217:33 Thyroid Stim Hormone (TSH) Comments: Test performed at:[facility] [address] [place] [address] TSH 0.84 {uIU/mL} (Normal) Range: 0.358-3.74 84-Bxk-183818:33 Vitamin D,25 Hydroxy Comments: Test performed at:[facility] M[address]aghulzm[address] [place] [address] Vitamin D 25-OH 23.5 ng/mL (Normal) Comments: Vitamin D 25(OH) Status Range Deficiency <20 ng/mL (50nmol/L) Insuffciency 20 - 30 ng/mL (50 - 75 nmol/L) Sufficiency 30 - 100 ng/mL (75 - 250 nmol/L) Toxicity >100 ng/mL (>250 nmol/L) 6-Pry-746987:34 HgA1C , Office (75044) HgA1C , Office 7.0 % (Normal) Range: 4.6 - 7.1 :00 CBC W/Diff, Automated Comments: Test performed at:[facility] [address] [place] [address] Absolute Lymph 2.03 {X10_3/ul} (Normal) Range: [...] 4.2-5.4 WBC 9.1 K/mm3 (Normal) Range: 4.4-11.0 1-Wgx-438961:00 CK-MB Quantitative and Index Comments: 'TROP' Serial specimen #1, #2, #3, or #4: 1'CKMB' Serial Specimen #1, #2 or #3? 1Test performed at:[facility] Vwufzdnhno6593 [facility] [place] [address] CPKMB 1.7 ng/mL (Normal) Range: 0.0-5.0 Comments: CK-MB and RI Interpretation MB Relative Index Non-AMI <or= 5 NA Indeterminate > 5 <or= 4 AMI > 5 > 4 CPK TOTAL 137 U/L (Normal) Range: 26-192 5-Yaj-357333:00 Myoglobin, Serum Comments: Test performed at:[facility] Ifmxchodmd3030 [facility] [place] [address] Myoglobin, Ser 149 ng/mL (Abnormal) Range: 25-58 Comments: Performed at: [facility] [id number] Director: Jonathan Majano PhD, Phone: [phone] 3-Hvo-883267:00 Troponin-I Comments: 'TROP' Serial specimen #1, #2, #3, or #4: 1'CKMB' Serial Specimen #1, #2 or #3? 1Test performed at:[facility] Ogleypnszu0317 [facility] [place] [address] TROPONIN-I < 0.02 ng/mL (Normal) Comments: TROPONIN-I EXPECTED VALUES <0.05 NEGATIVE 0.06 - 0.[address] > OR = 0.[address] 8-Wyi-915076:46 Rapid Flu (57555 x 2) Influenza A Ag n (Normal) 66-Zzz-246023:30 Culture, Wound Comments: Test performed at:[facility] Ietqbptlyd4399 [facility]. [place], [place] [id number] CUW See Note (Normal) Comments: Gram StainGram [...] $ 1 S(NF) indicates non-formulary drug at [facility]. Approval by Infectious Disease Specialist required before non-formulary dr gerard may be ordered and/or dispensed. * CLSI guidelines does not recommend testing of cephalosporins. This interpretation is deduced from Beta- lactam/penicillin results. 02-Osi-108777:20 WCGLU 81 mg/dL (Normal) Range: 70-110 36-Und-830311:20 WCLIPID VLDL 34 mg/dL (Normal) Range: 5-40 [...] CHOL 178 mg/dL (Normal) Comments: <200 mg/dL Chbncwmye568-514 mg/dL Borderline>240 mg/dL High Risk 2-Ify-031831:50 MUM < 0.80 AU (Normal) Range: 0.00-0.79 Comments: Negative < 0.80Borderline 0.80 - 1.20Positive > 1.20Note: The presence of IgM specific antibody should beinterpreted in conjunction with the patient's clinicalhistory and exposure risk when an acute infection issuspected.Performed at: [facility] [address] [id number] Director: Rafita Cruz MD, Phone: [phone] at: [address] [id number] Director: Jj Caballero MD, Phone: [phone] 3-Yxu-212285:50 RUBEOG > 300.0 AU/mL (Normal) Comments: Negative <25.0Equivocal 25.0 - 29.9Positive >29.9Presence of antibodies to Rubeola is presumptive evidenceof immunity except when acute infection is suspected. 3-Ovq-380666:50 RUBG > 500.0 {IU/mL} (Normal) Comments: Antibody results Interpretation of Immune Status< 5 IU/ml Presumed Non-immune5 - < 10 IU/ml Equivocal> or = 10 IU/ml Presumed Immune 01-Nov-20139:26 MICROALBUMIN: CREATININE RATIO Comments: PATIENT WAS FASTINGPERFORMED BY: [address] [id number] (88809) AND (71617) Microalb/Creat Ratio 3.9 {mg/g_creat} (Normal) Range: 0.0-30.0 Creatinine, Urine 177.5 mg/dL (Normal) Range: 15.0-278.0 Microalbumin, Urine 7.0 ug/mL (Normal) Range: 0.0-17.0 :26 CBC WITH MANUAL DIFF Comments: PATIENT WAS FASTINGPERFORMED BY: [place] 5662670 [facility] [id number] Information: [id number] (53324) Immature Grans (Abs) 0.0 {x10E3/uL} (Normal) Range: [...] PANEL, COMPREHENSIVE Comments: PATIENT WAS FASTINGPERFORMED BY: [facility]SpringCritical [facility] hospital [id number] (57668) ALT (SGPT) 22 [iU]/L (Normal) Range: 0-32 [...] (Abnormal) Range: 65-99 :26 Vitamin D Hydroxy (16943) Comments: PATIENT WAS FASTINGPERFORMED BY: TripleGift6370 [facility] [id number] Vitamin D, 25-Hydroxy 32.9 ng/mL (Normal) Range: 30.0-100.0 Comments: Vitamin D deficiency has been defined by the Oldhams ofMedicine and an Endocrine Society practice guideline as alevel of serum 25-OH vitamin D less than 20 ng/mL (1,2).The Endocrine Society went on to further define vitamin Dinsufficiency as a level between 21 and 29 ng/mL (2).1. IOM (Oldhams of Medicine). 2010. Dietary reference intakes for calcium and D. [place]: The National Academies Press.2. Eleni MF, Lorne MORTON, Dayron WALTON, et al. Evaluation, treatment, and prevention of vitamin D deficiency: an Endocrine Society clinical practice guideline. JCEM. 2010; 96(7):1911-30. :26 LIPID PANEL (60129) Comments: PATIENT WAS FASTINGPERFORMED BY: [facility] MediaFlag[facility] [id number] LDL/HDL Ratio 1.6 {ratio_units} (Normal) Range: 0.0-3.2 LDL Cholesterol Calc 74 mg/dL (Normal) Range: 0-99 HDL Cholesterol 46 mg/dL (Normal) Comments: According to ATP-III Guidelines, HDL-C >59 mg/dL is considered anegative risk factor for CHD. VLDL Cholesterol Edgardo 22 mg/dL (Normal) Range: 5-40 Triglycerides 112 mg/dL (Normal) Range: 0-149 Cholesterol, Total 142 mg/dL (Normal) Range: 100-199 :26 TSH (39087) Comments: PATIENT WAS FASTINGPERFORMED BY: [facility]EXCritical access hospital [id number] TSH 1.560 {uIU/mL} (Normal) Range: 0.450-4.500 1-Iwu-323691:02 HgA1C , Office (92123) HgA1C , Office 6.6 % (Normal) Range: 4.6 - 7.1 9-Lpr-250528:41 HgA1C , Office (36896) HgA1C , Office 6.4 % (Normal) Range: 4.6 - 7.1 85-Loa-524148:30 Microscopic Examination Comments: PATIENT WAS FASTINGPERFORMED BY: YASA MotorsCone Health [facility] [id number] Bacteria Few (Normal) Mucus Threads Present (Normal) Epithelial Cells (non renal) 0-10 {/hpf} (Normal) Range: 0 - 10 RBC 0-3 {/hpf} (Normal) Range: 0 - 3 WBC 0-5 {/hpf} (Normal) Range: 0 - 5 85-Cfc-584263:30 LIPID PANEL (90796) Comments: PATIENT WAS FASTINGPERFORMED BY: [employer] Hmugfj4486 [place] Solutionsbl[place] [id number] LDL/HDL Ratio 2.3 {ratio_units} (Normal) Range: 0.0-3.2 LDL Cholesterol Calc 103 mg/dL (Abnormal) Range: 0-99 VLDL Cholesterol Edgardo 30 mg/dL (Normal) Range: 5-40 HDL Cholesterol 45 mg/dL (Normal) Comments: According to ATP-III Guidelines, HDL-C >59 mg/dL is considered anegative risk factor for CHD. Cholesterol, Total 178 mg/dL (Normal) Range: 100-199 Triglycerides 148 mg/dL (Normal) Range: 0-149 85-Dzy-928006:30 Vitamin D Hydroxy (29070) Comments: PATIENT WAS FASTINGPERFORMED BY: [employer] Qpncgq7850 [facility] SolutionsC[facility] [id number] Vitamin D, 25-Hydroxy 35.6 ng/mL (Normal) Range: 30.0-100.0 Comments: Vitamin D deficiency has been defined by the Oldhams ofMedicine and an Endocrine Society practice guideline as alevel of serum 25-OH vitamin D less than 20 ng/mL (1,2).The Endocrine Society went on to further define vitamin Dinsufficiency as a level between 21 and 29 ng/mL (2).1. IOM (Oldhams of Medicine). 2010. Dietary reference intakes for calcium and D. [place]: The National Academies Press.2. Eleni MF, Lorne NC, Dayron WALTON, et al. Evaluation, treatment, and prevention of vitamin D deficiency: an Endocrine Society clinical practice guideline. JCEM. 2010; 96(7):1911-30. 52-Hyo-873343:30 URINALYSIS, W/ MICRO (81906) Comments: PATIENT WAS FASTINGPERFORMED BY: [employer] Adswsi3726 [address] Nev[facility] NetworksC[facility] [id number] Microscopic Examination See below: (Normal) Nitrite, Urine Negative (Normal) Bilirubin Negative (Normal) Urobilinogen,Semi-Qn 0.2 mg/dL (Normal) Range: 0.0-1.9 Occult Blood Negative (Normal) Ketones Negative (Normal) Glucose Negative (Normal) Protein Negative (Normal) WBC Esterase 1+ (Abnormal) Appearance Clear (Normal) Urine-Color Yellow (Normal) pH 5.5 (Normal) Range: 5.0-7.5 Specific Edwall 1.017 (Normal) Range: 1.005-1.030 46-Umv-640047:30 CBC WITH MANUAL DIFF Comments: PATIENT WAS FASTINGPERFORMED BY: LabCoWeisman Children's Rehabilitation HospitalNmzafd6544 [facility] [id number] Information: [id number] (24009) Immature Grans (Abs) 0.0 {x10E3/uL} (Normal) Range: [...] 3.77-5.28 WBC 6.2 {x10E3/uL} (Normal) Range: 3.4-10.8 52-Mxt-534459:30 METABOLIC PANEL, COMPREHENSIVE Comments: PATIENT WAS FASTINGPERFORMED BY: LabCoWeisman Children's Rehabilitation HospitalXxfjzm8997 [facility] [id number] (93382) ALT (SGPT) 23 [iU]/L (Normal) Range: 0-32 [...] Glucose, Serum 114 mg/dL (Abnormal) Range: 65-99 7-Cpa-750525:35 HgA1C , Office (73161) HgA1C , Office 6.6 % (Normal) Range: 4.6 - 7.1 69-Hrg-113322:41 Thin prep Pap (36495) Comments: Source.............VaginalNo. of containers..01 CYTYC Thin Prep VialPATIENT NOT FASTINGPERFORMED BY: [employer] Ednzmwojbu439 [place] [facility] WWin[place] [id number] Information: [id number] Pathologist provided ICD9: SPRCS (Normal) Comments: 627.3The [...] of hysterectomy.V72.31 ; Routine gynecological examinationGris Moreau Color Shop Helper (ASCP) 03-Apr-20139:36 VITAMIN B-12 (CYANOCOBALAMIN) Comments: PATIENT WAS FASTINGPERFORMED BY: TripleGift6370 ALKILU EnterprisesCritical access hospital [id number] (68098) Vitamin B12 628 pg/mL (Normal) Range: 211-946 03-Apr-20139:36 LIPID PANEL (37738) Comments: PATIENT WAS FASTINGPERFORMED BY: TripleGift6370 ALKILU EnterprisesCritical access hospital [id number] LDL/HDL Ratio 2.2 {ratio_units} (Normal) Range: 0.0-3.2 LDL Cholesterol Calc 87 mg/dL (Normal) Range: 0-99 VLDL Cholesterol Edgardo 27 mg/dL (Normal) Range: 5-40 HDL Cholesterol 39 mg/dL (Abnormal) Comments: According to ATP-III Guidelines, HDL-C >59 mg/dL is considered anegative risk factor for CHD. Cholesterol, Total 153 mg/dL (Normal) Range: 100-199 Triglycerides 137 mg/dL (Normal) Range: 0-149 :36 Vitamin D Hydroxy (46179) Comments: PATIENT WAS FASTINGPERFORMED BY: TripleGift6370 [address] [facility]in [place] [id number] Vitamin D, 25-Hydroxy 31.1 ng/mL (Normal) Range: 30.0-100.0 Comments: Vitamin D deficiency has been defined by the Oldhams ofMedicine and an Endocrine Society practice guideline as alevel of serum 25-OH vitamin D less than 20 ng/mL (1,2).The Endocrine Society went on to further define vitamin Dinsufficiency as a level between 21 and 29 ng/mL (2).1. IOM (Oldhams of Medicine). 2010. Dietary reference intakes for calcium and D. [place]: The National Academies Press.2. Eleni MF, Lorne NC, Dayron WALTON, et al. Evaluation, treatment, and prevention of vitamin D deficiency: an Endocrine Society clinical practice guideline. JCEM. 2010; 96(7):1911-30. :36 TSH (39498) Comments: PATIENT WAS FASTINGPERFORMED BY: [employer] Brujoh0928 [facility] [id number] TSH 1.510 {uIU/mL} (Normal) Range: 0.450-4.500 :36 MICROALBUMIN: CREATININE RATIO Comments: PATIENT WAS FASTINGPERFORMED BY: [employer] Pdkryc0221 [facility] [id number] (91338) AND (81645) Creatinine, Urine 212.6 mg/dL (Normal) Range: 15.0-278.0 Microalb/Creat Ratio 2.1 {mg/g_creat} (Normal) Range: 0.0-30.0 Microalbumin, Urine 4.5 ug/mL (Normal) Range: 0.0-17.0 :36 METABOLIC PANEL, Comments: PATIENT WAS FASTINGPERFORMED BY: [employer] Iimypo1284 [facility] [id number] Information: [id number] COMPREHENSIVE (75582) ALT (SGPT) 23 [iU]/L (Normal) Range: 0-32 [...] Glucose, Serum 160 mg/dL (Abnormal) Range: 65-99 47-Bla-22888:34 BILAT SCRN DIGITAL & CAD Radiology Report [...] Mckenzie M.D.April 12, 2012 at 10:58:16 AM [id number] Signed GP/GP If you are the referring physician and would like to consult w [facility] theradiologist who provided this interpretation, please contact Sudha Pritchett at [phone]. If this radiologist is unavailable, youwill be directed to another radiologist to assist. If you are a patient with a question regarding this report, pleasecontactyour referring physician directly. Professional Interpretation Provided By: [employer], Phone , These documents contain legally protected [...] 04/12/12 1103 Sign by: Leobardo Mckenzie MD 22-Bzf-95814:34 DEXA BONE DENSITY STUDY (HP) Radiology Report [...] Mckenzie M.D.April 12 2 at 12:31:08 PM [phone] Signed GP/GP If you are the referring physician and would like to consult with theradiologist who provided this interpretation, please contact Rashard thompson M.D. at [phone]. If this radiologist is unavailable, youwill be directed to another radiologist to assist. If you are a patient with a question regarding this report, pleasecontactyour refer ring physician directly. Professional Interpretation Provided By: Adilene, [...] 04/12/12 1235 Sign by: Leobardo Mckenzie MD 4-Vfh-347815:25 HPV automatic Comments: Source.............Cervical;EndocervicalNo. of containers..01 CYTYC Thin Prep VialPATIENT NOT FASTINGPERFORMED BY: WB [facility] [address] [id number] BY: =G L (89881) [facility] Qbzmwgywqo651 [facility] [id number] Information: [id number] HPV, high-risk Negative Comments: This high-risk HPV [...] a history of hysterectomy.V72.31 ; Routine gynecological examinationJennkonrad Steven Color Shop Helper (ASCP) :37 Hemoglobin Glyclated (HGB A1C) Comments: PATIENT WAS FASTINGPERFORMED BY: [facility] Kbofkq3300 [facility] [id number] (88515) Hemoglobin A1c 7.1 % (Abnormal) Range: 4.8-5.6 Comments: . Increased risk for diabetes: 5.7 - 6.4 Diabetes: >6.4 Glycemic control for adults with diabetes: <7.0 :37 TSH (94195) Comments: PATIENT WAS FASTINGPERFORMED BY: [facility] Lzybyr9628 [facility] [id number] TSH 1.790 {uIU/mL} (Normal) Range: 0.450-4.500 :37 CBC WITH MANUAL DIFF Comments: PATIENT WAS FASTINGPERFORMED BY: LabCoWeisman Children's Rehabilitation HospitalKkynkf1559 [facility] [id number] Information: [id number] (54100) Immature Grans (Abs) 0.0 {x10E3/uL} (Normal) Range: [...] CREATININE RATIO Comments: PATIENT WAS FASTINGPERFORMED BY: [employer]70 [facility] [id number] (84232) AND (22276) Microalb/Creat Ratio 0.8 {mg/g_creat} (Normal) Range: 0.0-30.0 Microalbumin, Urine 1.4 ug/mL (Normal) Range: 0.0-17.0 Creatinine, Urine 183.1 mg/dL (Normal) Range: 15.0-278.0 :37 LIPID PANEL (83218) Comments: PATIENT WAS FASTINGPERFORMED BY: Aunt Kitchenlin6370 [facility] [id number] LDL/HDL Ratio 1.4 {ratio_units} (Normal) Range: 0.0-3.2 [...] PANEL, COMPREHENSIVE Comments: PATIENT WAS FASTINGPERFORMED BY: [employer]70 [facility] [id number] (96560) ALT (SGPT) 26 [iU]/L (Normal) Range: 0-40 [...] (Abnormal) Range: 65-99 :37 Vitamin D Hydroxy (19065) Comments: PATIENT WAS FASTINGPERFORMED BY: Didasco6370 [facility] EnterprisesCritical access hospital [id number] Vitamin D, 25-Hydroxy 42.1 ng/mL (Normal) Range: 30.0-100.0 Comments: Vitamin D deficiency has been defined by the Oldhams ofMedicine and an Endocrine Society practice guideline as alevel of serum 25-OH vitamin D less than 20 ng/mL (1,2).The Endocrine Society went on to further define vitamin Dinsufficiency as a level between 21 and 29 ng/mL (2).1. IOM (Oldhams of Medicine). 2010. Dietary reference intakes for calcium and D. [place]: The National Academies Press.2. Eleni MF, Lorne MORTON, Dayron WALTON, et al. Evaluation, treatment, and prevention of vitamin D deficiency: an Endocrine Society clinical practice guideline. JCEM. 2010; 96(7):1911-30. 52-Tvg-14230:37 VITAMIN B-12 (CYANOCOBALAMIN) Comments: PATIENT WAS FASTINGPERFORMED BY: LabCoWeisman Children's Rehabilitation HospitalHtuxzz7646 [facility] [id number] (47002) Vitamin B12 1841 pg/mL (Abnormal) Range: 211-946 32-Mjz-032546:56 CHEST WITH CONTRAST Radiology Report See Note [...] Signed:Marva HunterFebruary 11, 2012 at 3:53:06 PM [phone] Signed MV/MV If you are the referring physician and would like to consult with theradiologist who provided this interpretation, please co ntact Jackie Sierra M.D. at . If this radiologist is unavailable, youwillbe directed to another radiologist to assist. If you are a patient with a question regarding this report, pleisabella econtactyour referring physician directly. Professional Interpretation Provided By: [employer], Phone , These documents contain legally protected [...] documents. Dictated on 02/11/12 1 404 by Chaitanya SIERRA MDanscribed on 02/11/12 1611 by ITS IMPORTSign by JACKIE SIERRA MD on 02/11/12 161 Sign by: JACKIE SIERRA MD :22 CRE GFRAA 95 mL/min (Normal) GFR 78 mL/min (Normal) CREAT 0.8 mg/dL (Normal) Range: 0.6-1.0 :42 MICROALBUMIN: CREATININE RATIO Comments: PATIENT WAS FASTINGPERFORMED BY: LabCoWe[facility] Rehabilitation HospitalHxixyy1794 [facility] [id number] (13300) AND (69535) Creatinine, Urine 87.6 mg/dL (Normal) Range: 15.0-278.0 Microalb/Creat Ratio 1.1 {mg/g_creat} (Normal) Range: 0.0-30.0 Microalbumin, Urine 1.0 ug/mL (Normal) Range: 0.0-17.0 :42 VITAMIN B-12 (CYANOCOBALAMIN) Comments: PATIENT WAS FASTINGPERFORMED BY: [facility]CoWe[facility] Rehabilitation HospitalCgkmia1519 [facility] [id number] (14422) Vitamin B12 1740 pg/mL (Abnormal) Range: 211-946 62-Ids-43509:42 CBC WITH MANUAL DIFF Comments: PATIENT WAS FASTINGPERFORMED BY: [facility]CoWe[facility] Rehabilitation HospitalWawhde8024 [facility] [id number] Information: [id number] (21965) Immature Grans (Abs) 0.0 {x10E3/uL} (Normal) Range: [...] (Normal) Range: 4.0-10.5 :42 Vitamin D Hydroxy (26587) Comments: PATIENT WAS FASTINGPERFORMED BY: [employer] Msexcn7571 [facility] [id number] Vitamin D, 25-Hydroxy 32.2 ng/mL (Normal) Range: 30.0-100.0 Comments: Vitamin D deficiency has been defined by the Oldhams ofMedicine and an Endocrine Society practice guideline as alevel of serum 25-OH vitamin D less than 20 ng/mL (1,2).The Endocrine Society went on to further define vitamin Dinsufficiency as a level between 21 and 29 ng/mL (2).1. IOM (Oldhams of Medicine). 2010. Dietary reference intakes for calcium and D. [place]: The National Academies Press.2. Eleni MF, Lorne MORTON, Dayron WALTON, et al. Evaluation, treatment, and prevention of vitamin D deficiency: an Endocrine Society clinical practice guideline. JCEM. 2010; 96(7):1911-30. :42 LIPID PANEL (33986) Comments: PATIENT WAS FASTINGPERFORMED BY: TripleGift6370 [facility] [id number] LDL/HDL Ratio 2.2 {ratio_units} (Normal) Range: 0.0-3.2 [...] PANEL, COMPREHENSIVE Comments: PATIENT WAS FASTINGPERFORMED BY: [employer] Bgcavc7527 [facility] [id number] (21463) ALT (SGPT) 20 [iU]/L (Normal) Range: 0-32 [...] Glucose, Serum 148 mg/dL (Abnormal) Range: 65-99 29-Otm-73693:42 TSH (17053) Comments: PATIENT WAS FASTINGPERFORMED BY: [employer] Pldmjc6038 [facility] [id number] TSH 2.140 {uIU/mL} (Normal) Range: 0.450-4.500 0-Qrk-256303:41 Urinalysis, Office (60144) UA - BILIRUBIN Negative (Normal) UA - BLOOD Negative (Normal) UA - GLUCOSE Negative (Normal) UA - KETONES Negative mg/dL (Normal) UA - LEUKOCYTE ESTERASE Negative (Normal) UA - NITRITE Negative (Normal) UA - PH 8.5 (Normal) UA - PROTEIN 30 mg/dL (Normal) UA - SPECIFIC GRAVITY 1.020 (Normal) URINE UROBILINGN SUNNY TIMED Normal mg/dL (Normal) 52-Vfr-662154:08 CULTURE, SPUTUM (88424) Comments: PATIENT NOT FASTINGPERFORMED BY: Aunt Kitchenlin6370 [facility] [id number] Information: SRC:SPT ADD [id number] Result 1 RRF (Normal) Comments: Routine respiratory [...] {uIU/mL} (Normal) Range: 0.358-3.74 :24 VIT D,25 55302 37.4 ng/mL (Normal) Range: 30.0-100.0 Comments: Vitamin D deficiency has been defined by the Oldhams ofMedicine and an Endocrine Society practice guideline as alevel of serum 25-OH vitamin D less than 20 ng/mL (1,2).The Endocrine Society went on to further define vitamin Dinsufficiency as a level between 21 and 29 ng/mL (2).1. IOM (Oldhams of Medicine). 2011. Dietary reference intakes for calcium and D. [place]: The National Academies Press.2. Eleni MF, Lorne [place], Dayron WALTON, et al. Evaluation, treatment, and prevention of vitamin D deficiency: an Endocrine Society clinical practice guideline. JCEM. 2010; 96(7): 1911-30.Performed at: [facility] Lab[address] [id number] Director: Leigh Palomo MD, Phone: [phone] 4-Tfo-755593:43 Blood Glucose , Office (47072) Blood Glucose , Office 141 (Normal) 65-Huw-67681:08 BILAT SCRN DIGITAL & CAD Radiology Report [...] suspiciousab normality. Dictated on 04/07/11 0925 by Martin Mckenzie MDscribed on 04/07/111030 by ITS IMPORTSign by Leobardo Mckenzie MD on 04/07/111031 Sign by: Leobardo Mckenzie MD 27-Qly-995872:03 Rapid Strep Test, Office (96520) Comments: neg Rapid Strep Test, Office Negative (Normal) 89-Wap-876343:48 MEHREEN CULTURE-OTHER (75333) Comments: PATIENT NOT FASTINGPERFORMED BY: [employer] Pubhbq9034 [facility] [id number] Information: SRC:DEBRA [id number] Result 1 RRF (Normal) Comments: Routine respiratory marilin Upper Respiratory Culture Final report (Normal) 56-Slp-344530:37 Rapid Strep Test, Office (08674) Rapid Strep Test, Office Negative (Normal) 38-Mxm-581885:05 Rapid Flu (92546 x 2) Influenza A Ag negative (Normal) 08-Odn-95339:18 MICROALBUMIN: CREATININE RATIO Comments: PATIENT WAS FASTINGPERFORMED BY: [employer]70 [facility] [id number] (57470) AND (48504) Microalb/Creat Ratio 2.4 {mg/g_creat} (Normal) Range: 0.0-30.0 Microalbumin, Urine 4.6 ug/mL (Normal) Range: 0.0-17.0 Creatinine, Urine 189.1 mg/dL (Normal) Range: 15.0-278.0 :18 CBC WITH MANUAL DIFF Comments: PATIENT WAS FASTINGPERFORMED BY: XiantWeisman Children's Rehabilitation HospitalLyfwvg5273 [facility] [id number] Information: [id number] (11183) Immature Grans (Abs) 0.0 {x10E3/uL} (Normal) Range: [...] 3.80-5.10 WBC 6.4 {x10E3/uL} (Normal) Range: 4.0-10.5 57-Stj-97006:18 METABOLIC PANEL, COMPREHENSIVE Comments: PATIENT WAS FASTINGPERFORMED BY: LabCoWe[facility] Rehabilitation HospitalRzrscs3099 [facility] [id number] (09825) ALT (SGPT) 21 [iU]/L (Normal) Range: 0-40 [...] (Abnormal) Range: 65-99 :18 Vitamin D Hydroxy (95263) Comments: PATIENT WAS FASTINGPERFORMED BY: Didasco6370 [facility] [id number] Vitamin D, 25-Hydroxy 38.2 ng/mL (Normal) Range: 32.0-100.0 Comments: Recent studies consider the lower limit of 32.0 ng/mL to be athreshold for optimal health.Tom SOLIS. J Nutr. 2004;135(2):317-22. :18 LIPID PANEL (46528) Comments: PATIENT WAS FASTINGPERFORMED BY: Didasco6370 [facility] [id number] LDL Cholesterol Calc 69 mg/dL (Normal) Range: 0-99 LDL/HDL Ratio 1.7 {ratio_units} (Normal) Range: 0.0-3.2 HDL Cholesterol 40 mg/dL (Normal) Comments: According to ATP-III Guidelines, HDL-C >59 mg/dL is considered anegative risk factor for CHD. VLDL Cholesterol Edgardo 37 mg/dL (Normal) Range: 5-40 Cholesterol, Total 146 mg/dL (Normal) Range: 100-199 Triglycerides 184 mg/dL (Abnormal) Range: 0-149 :18 TSH (34365) Comments: PATIENT WAS FASTINGPERFORMED BY: [facility] Vxhalq5053 [facility] [id number] TSH 1.380 {uIU/mL} (Normal) Range: 0.450-4.500 :58 HgA1C , Office (92460) HgA1C , Office 6.4 % (Normal) Range: 4.6 - 7.1 :58 Blood Glucose , Office (06034) Blood Glucose , Office 146 (Normal) 88-Zls-483699:43 L/S SPINE,MIN 4 VIEWS (MT) Radiology Report See Note (Normal) Comments: Exam Number: [id number] CLINICAL:The patient is a 59-year-old woman with [...] ESTElectronically Signed PM/PM As part of our Manager Games Program, we request that surgical orpathologic correlation, or any additional supportive or discordantmedical history, laboratory or imaging studies be forwarded toRadimayo clinic health [facility], attention: Peer ReviewCoordinator. , , [address], [address] [place] [address]. Reported By: CHASTITY RETANA M.D. 12-Ekf-844884:28 Urinalysis, Office (65244) UA - BILIRUBIN Negative (Normal) UA - BLOOD Negative (Normal) UA - GLUCOSE Negative (Normal) UA - KETONES Negative mg/dL (Normal) UA - LEUKOCYTE ESTERASE Negative (Normal) UA - NITRITE Negative (Normal) UA - PH 6.0 (Normal) UA - PROTEIN Negative mg/dL (Normal) UA - SPECIFIC GRAVITY 1.025 (Normal) URINE UROBILINGN SUNNY TIMED 2 mg/dL (Normal) 48-Dkp-593557:46 Thin prep Pap (47972) Comments: Source.............VaginalLMP / Prev Treat...HystNo. of containers..01 CYTYC Thin Prep VialPERFORMED BY: [employer] [address] [id number] Information: [id number] Note: PAPSMR (Normal) Comments: The Pap smear [...] history of hysterectomy.V72.31 ; Routine gynecological exami [facility] Luis, Color Shop Helper (ASCP) 06-Bbx-019135:06 Vitamin D Hydroxy (23681) Comments: PATIENT WAS FASTINGPERFORMED BY: [employer]Gift6370 [facility] [id number] Vitamin D, 25-Hydroxy 26.5 ng/mL (Abnormal) Range: 32.0-100.0 Comments: Recent studies consider the lower limit of 32.0 ng/mL to be athreshold for optimal health.Tom SOLIS. J Nutr. 2004;135(2):317-22. 53-Imi-556886:06 LIPID PANEL (05798) Comments: PATIENT WAS FASTINGPERFORMED BY: TARAS [employer]6370 [facility] [id number] LDL Cholesterol Calc 57 mg/dL (Normal) Range: 0-99 LDL/HDL Ratio 1.4 {ratio_units} (Normal) Range: 0.0-3.2 VLDL Cholesterol Edgardo 32 mg/dL (Normal) Range: 5-40 HDL Cholesterol 41 mg/dL (Normal) Comments: According to ATP-III Guidelines, HDL-C >59 mg/dL is considered anegative risk factor for CHD. Triglycerides 162 mg/dL (Abnormal) Range: 0-149 Cholesterol, Total 130 mg/dL (Normal) Range: 100-199 30-Zsw-008857:06 METABOLIC PANEL, Comments: PATIENT WAS FASTINGPERFORMED BY: TARAS TripleGift6370 [facility] [id number] Information: ADD [id number] AND DRAW FEE 99 6660 COMPREHENSIVE (40018) ALT (SGPT) 23 [iU]/L (Normal) Range: 0-40 [...] (Abnormal) Range: 65-99 :20 HgA1C , Office (75116) HgA1C , Office 6.8 % (Normal) Range: 4.6 - 7.1 :20 Blood Glucose , Office (70564) Blood Glucose , Office 129 (Normal) 11-Kda-422925:38 Rapid Strep Test, Office (92859) Rapid Strep Test, Office Negative (Normal) :09 HgA1C , Office (60521) HgA1C , Office 6.9 % (Normal) Range: 4.6 - 7.1 :09 Blood Glucose , Office (41929) Blood Glucose , Office 127 (Normal) :14 METABOLIC PANEL, COMPREHENSIVE Comments: PATIENT WAS FASTINGPERFORMED BY: LabCoWe[facility] Rehabilitation HospitalCslwjb9520 [facility] [id number] (99870) Alkaline Phosphatase, S 60 [iU]/L (Normal) Range: [...] Glucose, Serum 141 mg/dL (Abnormal) Range: 65-99 24-Laj-99211:14 CBC WITH MANUAL DIFF Comments: PATIENT WAS FASTINGPERFORMED BY: LabCoWe[facility] Rehabilitation HospitalLlxxan5555 [facility] [id number] Information: [id number] (37871) Baso (Absolute) 0.0 {x10E3/uL} (Normal) Range: 0.0-0.2 [...] URINE QUANT Comments: PATIENT WAS FASTINGPERFORMED BY: SHEEXCritical access hospital [id number] (91030) Microalb/Creat Ratio <.8 {mg/g_creat} (Normal) Range: 0.0-30.0 Microalbumin, Urine <1.0 ug/mL (Normal) Range: 0.0-17.0 Creatinine, Urine 124.3 mg/dL (Normal) Range: 15.0-278.0 :14 TSH (84765) Comments: PATIENT WAS FASTINGPERFORMED BY: [employer]70 [facility] [id number] TSH 2.150 {uIU/mL} (Normal) Range: 0.450-4.500 Comments: Effective July 22, 2009, TSH reference interval for11 - 19 years will be changing to: 0.450 - 4.500 uIU/mLReference interval for all other ages will NOT be affected. :14 Vitamin D Hydroxy (18583) Comments: PATIENT WAS FASTINGPERFORMED BY: YASA MotorsCone [facility] [id number] Vitamin D, 25-Hydroxy 26.6 ng/mL (Abnormal) Range: 32.0-100.0 Comments: Recent studies consider the lower limit of 32.0 ng/mL to be athreshold for optimal health.Tom SOLIS. J Nutr. 2005 Jul;135(2):317-22. 89-Ziz-67960:14 LIPID PANEL (58607) Comments: PATIENT WAS FASTINGPERFORMED BY: [place] 5662670 [facility] [id number] HDL Cholesterol 42 mg/dL (Normal) Comments: According to ATP-III Guidelines, HDL-C >59 mg/dL is considered anegative risk factor for CHD. LDL Cholesterol Calc 100 mg/dL (Abnormal) Range: 0-99 LDL/HDL Ratio 2.4 {ratio_units} (Normal) Range: 0.0-3.2 Triglycerides 172 mg/dL (Abnormal) Range: 0-149 VLDL Cholesterol Edgardo 34 mg/dL (Normal) Range: 5-40 Cholesterol, Total 176 mg/dL (Normal) Range: 100-199 :07 HgA1C , Office (01332) HgA1C , Office 6.1 % (Normal) Range: 4.6 - 7.1 :07 Blood Glucose , Office (97152) Blood Glucose , Office 232 (Normal) :25 Lower Respiratory Culture Comments: Clinical Information: SRC:SP PERFORMED BY: [address] [id number] Lower Respiratory Culture Final report (Normal) Result 1 RRF (Normal) Comments: Routine respiratory marilin :00 Influenza A, H1N1, RT PCR Comments: Clinical Information: SRC:NL PERFORMED BY: [address] [id number] Subtype Novel H1N1 by Negative (Normal) PCR Type Influenza A by Negative (Normal) PCR Viral Final report Comments: PERFORMED BY: [address] [id number] :00 Culture,Rapid,Influen (Normal) Comments: Negative:No Influenza A or B detected. za :29 CHEST, PA AND LATERAL (MT) Radiology Report See Note (Normal) Comments: Exam Number: [id number] CLINICAL:58-year-old woman with cough and shortness of [...] cardiopulmonary process. Reported By: ROSEMARIE ROBBINS M.D. 49-Rey-990526:45 Rapid Strep Test, Office (49225) Comments: done Rapid Strep Test, Office Negative (Normal) 01-Kfk-628272:32 Rapid Flu (37323 x 2) Comments: done INFLUENZA IMMUNOASSY negative (Normal) DIRECT OPTICAL OBSERV 04-Apr-20090:00 FLU A+B DIRECT See Note (Normal) Comments: Negative test results should be confirmed by culture. Order Rapid Viral Culture for Influenzae A+B (556032) if clinically indicated. INFLUENZA ANTIGEN,DIRECT Presumptive NEGATIVE for Influenza A/B Antigen (See Note) 25-Vwn-457035:04 METABOLIC PANEL, COMPREHENSIVE Comments: PATIENT WAS FASTINGPERFORMED BY: LabCoWeisman Children's Rehabilitation HospitalIleamr7703 [facility] [id number] (87918) A/G Ratio 1.6 (Normal) Range: 1.1-2.5 Albumin, [...] CREATININE RATIO Comments: PATIENT WAS FASTINGPERFORMED BY: SHEEXCritical access hospital [id number] (38320) AND (35954) Creatinine, Urine 124.0 mg/dL (Normal) Range: 15.0-278.0 Microalb/Creat Ratio 1.5 {ug/mg_creat} (Normal) Range: 0.0-30.0 Microalbumin, Urine 1.9 ug/mL (Normal) Range: 0.0-17.0 :04 LIPID PANEL (60126) Comments: PATIENT WAS FASTINGPERFORMED BY: YASA MotorsC[facility] [id number] Cholesterol, Total 155 mg/dL (Normal) Range: 100-199 HDL Cholesterol 44 mg/dL (Normal) Comments: According to ATP-III Guidelines, HDL-C >59 mg/dL is considered anegative risk factor for CHD. LDL Cholesterol Calc 89 mg/dL (Normal) Range: 0-99 LDL/HDL Ratio 2.0 {ratio_units} (Normal) Range: 0.0-3.2 Triglycerides 109 mg/dL (Normal) Range: 0-149 VLDL Cholesterol Edgardo 22 mg/dL (Normal) Range: 5-40 :04 Vitamin D Hydroxy (23587) Comments: PATIENT WAS FASTINGPERFORMED BY: SHEEXCritical access hospital [id number] Vitamin D, 25-Hydroxy 24.9 ng/mL (Abnormal) Range: 32.0-100.0 Comments: Recent studies consider the lower limit of 32.0 ng/mL to be athreshold for optimal health.Tom SOLIS. J Nutr. 2004;135(2):317-22. :04 C-REACTIVE PROTEIN (14391) Comments: PATIENT WAS FASTINGPERFORMED BY: [facility] Uxtkdt9090 [facility] HospitalOndaxblin [place] [id number] C-Reactive Protein, Quant 4.4 mg/L (Normal) Range: 0.0-4.9 :04 CBC WITH MANUAL DIFF (04619) Comments: PATIENT WAS FASTINGClinical Information: ADD DRAW FEE 983202 ADD J 35178 PERFORMED BY: [employer] [facility] Leklcz4029 [facility] [id number] Baso (Absolute) 0.1 {x10E3/uL} (Normal) Range: 0.0-0.2 [...] 11.7-15.0 WBC 5.0 {x10E3/uL} (Normal) Range: 4.0-10.5 86-Bcg-576879:04 TSH (75983) Comments: PATIENT WAS FASTINGPERFORMED BY: LabCoWeisman [facility] Rehabilitation HospitalHheunu8280 [facility] [id number] TSH 1.151 {uIU/mL} (Normal) Range: 0.450-4.500 75-Suy-410835:00 HgA1C , Office (38764) HgA1C , Office 6.2 % (Normal) Range: 4.6 - 7.1 20-Dqb-494559:00 Blood Glucose , Office (91723) Blood Glucose , Office 132 (Normal) 40-Fhd-301956:39 ABDOMEN WITH IV CONTRAST Radiology Report See Note (Normal) Comments: Exam Number: [id number] CT ABDOMEN WITH CONTRAST CLINICAL STATEMENTRight upper [...] anincidental adenoma. Reported By: EDILIA WHEELER M.D. 67-Vke-744862:38 CHEST WITH CONTRAST Radiology Report See Note (Normal) Comments: Exam Number: [id number] CT OF THE CHEST WITH CONTRAST. STATEMENTCough, [...] mediastinal lymphadenopathy. Reported By: EDILIA WHEELER M.D. 84-Kze-174336: ZEESHAN 35 U/L (Normal) Comments: LIVER FUNCTION: PLEASE CALL DR CHEN, EQUITY STRUCTURER FOR DR CHRISTINA. 46 Range: 25-115 93-Jpz-198944: C-REACTIVE PROT 13.74 mg/L (Abnormal) Comments: LIVER FUNCTION: PLEASE CALL DR CHEN, EQUITY STRUCTURER FOR DR CHRISTINA. 46 Range: 0.0-6.0 Comments: Test performed using the Dimension C-Reactive ProteinExtended Range assay method. This assay meets the AHA/CDC 2003 recommendations fordetermining patients at high risk for cardiovasculardisease. Reference: High risk CRP >3.0 mg/L 03-Snw-976247:46 CBCD,SMEAR DIFF BAND 1 % (Normal) Range: [...] 47-70 WBC 5.6 K/mm3 (Normal) Range: 4.4-11.0 04-Ncb-846463:46 COMP METABOLIC Comments: LIVER FUNCTION: PLEASE CALL DR CHEN, EQUITY STRUCTURER FOR DR CHRISTINA. A/G 1.2 {RATIO} (Normal) [...] T PROT 7.4 g/dL (Normal) Range: 6.4-8.2 40-Pfa-101676:46 D-DIMER QUANT <200 ng/mL (Normal) Comments: NORMAL D-Dimer level indicates no DVT or PE. RESULTS CALLED TO DR CHEN 09/21/08 RAD SINGLETON.REPORT READ BACK BY SAME . :46 ESR SED RATE 29 mm/h (Normal) Range: 0-30 :46 LIPASE 239 U/L (Normal) Comments: LIVER FUNCTION: PLEASE CALL DR CHEN, EQUITY STRUCTURER FOR DR CHRISTINA. Range: 114-286 26-Row-305128:12 HgA1C , Office (16105) HgA1C , Office 6.1 % (Normal) Range: 4.6 - 7.1 69-Gjk-040461:12 Blood Glucose , Office (48663) Blood Glucose , Office 116 (Normal) 46-Uqt-180499:48 Urine Culture,Comprehensive Comments: Clinical Information: SRC:UR PERFORMED BY: [facility]6370 [facility] [id number] Result 1 MUG (Normal) Comments: Mixed urogenital exdzt133 Colonies/mL Urine Culture,Comprehensive Final report (Normal) 44-Jkj-607937:31 L/S SPINE,MIN 4 VIEWS (MT) Radiology Report See Note (Normal) Comments: Exam Number: [id number] LUMBAR SPINE, 5 VIEWS CLINICAL STATEMENTFollow up bone density study, question compression of L5. COMPARISONBone Dexatometry May 03, 2008. 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 Vertebral body height andalignment appears maintained. Multilevel mild degenerative discchanges are present throughout the lumbar spine with end plateosteophyte formation present. There is mini mal concavity of the B6rsccrzdb end plate likely secondary to degenerative change [...] position orspasm. Reported By: EDILIA WHEELER M.D. :59 METABOLIC PANEL, COMPREHENSIVE Comments: PATIENT WAS FASTINGPERFORMED BY: LabCoWeisman [facility] Rehabilitation HospitalQahqey5061 [facility] [id number] (27092) A/G Ratio 1.4 (Normal) Range: 1.1-2.5 Albumin, [...] Total 3.0 g/dL (Normal) Range: 1.5-4.5 If -Serbian >59 mL/min/1.73 Comments: Note: Persistent reduction for [...] Range: 65-99 :59 CBC WITH MANUAL DIFF (07503) Comments: PATIENT WAS FASTINGClinical Information: ADD DRAW FEE [id number] ADD J 21602 PERFORMED BY: TARAS Xiant [id number] [facility] [id number] Baso (Absolute) 0.0 {x10E3/uL} (Normal) Range: 0.0-0.2 [...] FUNCTION PANEL Comments: PATIENT WAS FASTINGPERFORMED BY: [employer]iant [id number] [facility] [id number] (23235) Bilirubin, Direct 0.09 mg/dL (Normal) Range: 0.00-0.40 :59 LIPID PANEL (27039) Comments: PATIENT WAS FASTINGPERFORMED BY: [facility]iant Newvbn5613 [facility] [id number] Cholesterol, Total 156 mg/dL (Normal) Range: 100-199 HDL Cholesterol 43 mg/dL (Normal) Comments: According to ATP-III Guidelines, HDL-C >59 mg/dL is considered anegative risk factor for CHD. LDL Cholesterol Calc 77 mg/dL (Normal) Range: 0-99 LDL/HDL Ratio 1.8 {ratio_units} (Normal) Range: 0.0-3.2 Triglycerides 180 mg/dL (Abnormal) Range: 0-149 VLDL Cholesterol Edgardo 36 mg/dL (Normal) Range: 5-40 95-Krq-786158:27 Urinalysis, Office (97769) UA - BILIRUBIN Negative (Normal) UA - [...] Report See Note (Normal) Comments: Exam Number: [id number] BONE DENSITOMETRY HISTORYOsteopenia. TECHNIQUE Bone densitometry of [...] Report See Note (Normal) Comments: Exam Number: [id number] ULTRASOUND OF ABDOMINAL AORTA HISTORYFamily history of [...] in size. Reported By: CHASTITY RETANA M.D. 85-Bbe-971910:06 URINE MEHREEN CULTURE-SUNNY COL Comments: PATIENT NOT FASTINGClinical Information: SRC:UR ADD [id number] PERFORMED BY: [facility] [id number] [facility] [id number] COUNT (49922) Result 1 Proteus mirabilis Comments: 2,000 Colonies/mL (Normal) Result 2 BETAGB (Normal) Comments: Beta hemolytic Streptococcus, group B5,000 Colonies/mLPenicillin continues to be the drug of choice for infectionscaused by beta hemolytic streptococci in groups A,B,C and G.No penicillin resistance walton s been described among theseorganisms and surveillance for emerging resistance is notrecommended. (ANURAG Hooker. Clinical Microbiology Newsletter,1993; CLARA Washburn, et al. Diagnostic Microbiology Bharath nfectious Disease, November,.) S = Susceptible; I = Intermediate; R = Resistant P = Positive; N = Negative MICS are expressed in micrograms per mL Antibioti c RSLT#1 RSLT#2 RSLT#3 RSLT#4Amoxicillin/Clavulanic Acid SAmpicillin SCefepime SCeftriaxone SCefuroxime SCephalothin SCiprofloxacin SGentamicin SImipenem SLevofloxacin SNitrofurantoin RPiperacillin/Tazobactam STetracycline RTobramycin STrimethoprim/Sulfa S Urine Final report (Normal) Culture,Comprehensive 58-Cno-30286:19 HEPATIC FUNCTION PANEL Comments: PATIENT WAS FASTINGClinical Information: ADD DRAW FEE [id number] ADD J 60704 PERFORMED BY: EnergyWeb SolutionsDzilth-Na-O-Dith-Hle Health CenterIzpuqi4255 [facility] [id number] (38799) Albumin, Serum 4.0 g/dL (Normal) Range: 3.5-5.5 Alkaline Phosphatase, S 91 [iU]/L (Normal) Range: 25-150 ALT (SGPT) 18 [iU]/L (Normal) Range: 0-40 AST (SGOT) 21 [iU]/L (Normal) Range: 0-40 Bilirubin, Direct 0.11 mg/dL (Normal) Range: 0.00-0.40 Bilirubin, Total 0.4 mg/dL (Normal) Range: 0.1-1.2 Protein, Total, Serum 6.8 g/dL (Normal) Range: 6.0-8.5 :19 LIPID PANEL (35169) Comments: PATIENT WAS FASTINGPERFORMED BY: [employer]70 [facility] [id number] Cholesterol, Total 159 mg/dL (Normal) Range: 100-199 HDL Cholesterol 41 mg/dL (Normal) Range: 40-59 Comments: EFFECTIVE APRIL 30, 2008 the reference interval for HDL-C will be changing to: >39 mg/dL LDL Cholesterol Calc 80 mg/dL (Normal) Range: 0-99 LDL/HDL Ratio 2.0 {ratio_units} (Normal) Range: 0.0-3.2 Triglycerides 192 mg/dL (Abnormal) Range: 0-149 VLDL Cholesterol Edgardo 38 mg/dL (Normal) Range: 5-40 39-Dmb-398141:08 Urinalysis, Office (78970) Comments: done km UA - BILIRUBIN Negative (Normal) UA - BLOOD Negative (Normal) UA - GLUCOSE Negative (Normal) UA - KETONES Negative mg/dL (Normal) UA - LEUKOCYTE ESTERASE Small (Normal) UA - NITRITE Negative (Normal) UA - PH 6.0 (Normal) UA - PROTEIN Negative mg/dL (Normal) UA - SPECIFIC GRAVITY 1.015 (Normal) URINE UROBILINGN SUNNY TIMED Normal mg/dL (Normal) :25 HgA1C , Office (86071) HgA1C , Office 5.7 % (Normal) Range: 4.6 - 7.1 19-Zgr-06769:25 Blood Glucose , Office (87997) Blood Glucose , Office 127 (Normal) 04-Ydd-117684:47 UNILAT LT DIAG DIGITAL & CAD Radiology Report See Note (Normal) Comments: Exam Number: [id number] MAMMOGRAM, UNILATERAL LEFT DIAGNOSTIC DIGITAL AND CAD [...] mammograms werealso examined with computer-aided detection software ([employer], [employer] Reported By: CHASTITY RETANA M.D. 88-Twv-71535:10 [facility] Report See Note (Normal) Comments: Exam Number: [id number] MAMMOGRAM, BILATERAL SCREENING DIGITAL AND CAD HISTORYRoutine [...] mammograms werealso examined with computer-aided detection software ([employer] Reported By: CHASTITY RETANA M.D. :36 HgA1C , Office (09659) HgA1C , Office 7.4 % (Abnormal) Range: 4.6 - 7.1 :36 Blood Glucose , Office (77682) Blood Glucose , Office 168 (Normal) 51-Cdv-948782:15 COMP METABOLIC A/G 1.1 {RATIO} (Normal) Range: [...] Range: 0.34-4.82 :46 CBC WITH MANUAL DIFF (41025) Comments: PATIENT NOT FASTINGClinical Information: ADD [id number] ADD [id number] PERFORMED BY: [facility]We[facility] HospitalJkttlh3486 [facility] [id number] Baso (Absolute) 0.0 {x10E3/uL} (Normal) Range: 0.0-0.2 [...] 11.7-15.0 WBC 3.4 {x10E3/uL} (Abnormal) Range: 4.0-10.5 16-Sox-11890:49 MYOCARD PERF SPECT REST/STRESS Radiology Report See Note (Normal) Comments: Exam Number: [id number] MYOCARDIAL PERFUSION SCAN TECHNIQUEThe patient was injected [...] FLOR WEI M.D. :44 HgA1C , Office (20391) HgA1C , Office 7.2 % (Abnormal) Range: 4.6 - 7.1 :44 Blood Glucose , Office (36140) Blood Glucose , Office 141 (Normal) :48 HgA1C , Office (64695) HgA1C , Office 7.3 % (Abnormal) Range: 4.6 - 7.1 :47 Blood Glucose , Office (00225) Blood Glucose , Office 148 (Normal) :12 [...] :12 TSH 1.61 {uIU/mL} (Normal) Range: 0.34-4.82 69-Vie-490424:10 CBCD,SMEAR DIFF BASOPHIL 1 % (Normal) Range: [...] Range: 4.4-11.0 :46 Blood Glucose , Office (44285) Blood Glucose , Office 163 (Normal) :24 HgA1C , Office (34831) HgA1C , Office 6.6 % (Normal) Range: 4.6 - 7.1 :24 Blood Glucose , Office (60418) Blood Glucose , Office low (Normal) :09 HgA1C , Office (48335) Comments: done HgA1C , Office 6.5 % (Normal) Range: 4.6 - 7.1 :09 Blood Glucose , Office (67400) Comments: done Blood Glucose , Office 161 [...] (Normal) Range: 0.34-4.82 :05 HgA1C , Office (11775) HgA1C , Office 7.2 % (Abnormal) Range: 4.6 - 7.1 :05 Blood Glucose , Office (48697) Blood Glucose , Office 114 (Normal) :35 [...] Report See Note (Normal) Comments: Exam Number: [id number] CHEST, PA AND LATERAL HISTORYShortness of breath. FINDINGSCardiac configuration is normal. There is mild overinflation of thelungs. No acute infiltrate, effusion, or pneumothora x is identified. IMPRESSIONNo acute changes noted in the lungs. Reported By: FLOR CHOWDHURY M.D. 14-Mfp-234522:59 CHEST, PA AND LATERAL Radiology Report See Note (Normal) Comments: Exam Number: [id number] PA AND LATERAL CHEST HISTORY Being done [...] infiltrate identified. Reported By: FLOR CHOWDHURY M.D. 19-Uxn-228151:59 JHONNY 63721 59 U/L (Normal) Range: - Comments: Performed At: [address] [id number] 48-Mjm-333091:06 JHONNY 00655 61 U/L (Normal) Range: -09-Jul-200610:06 REBECCA-D 773799 REBECCA-DIRECT 31 U/mL (Normal) Range: 0-99 Comments: Negative <100 Equivocal 100 - 120 Positive >120 43-Bll-392591:06 C-REACTIVE PROT 7.75 mg/L (Abnormal) Range: 0.0-6.0 Comments: Test performed using the Dimension C-Reactive ProteinExtended Range assay method. This assay meets the AHA/CDC 2003 recommendations fordetermining patients at high risk for cardiovasculardisease. Reference: High risk CRP >3.0 mg/L 93-Unz-068084:06 CBCD,SMEAR DIFF CELLS COUNTED 100 (Normal) EOS [...] SED RATE 5 mm/h (Normal) Range: 0-30 :06 HISTOPL 907610 SeeNote (Normal) Comments: Result: Negative Performed At: [facility] [place], [place] [id number] At: [facility] [address]cebply[address] [place], [place] [id number] :06 LDH 170 U/L (Normal) Range: 100-190 :06 RA LATEX 6502 4.4 {IU/mL} (Normal) Range: 0.0-13.9 93-Mcj-468086:49 CBCD,SMEAR DIFF CELLS COUNTED 100 (Normal) EOS [...] (Normal) Range: 0.34-4.82 :31 HgA1C , Office (47893) HgA1C , Office 7.9 % (Abnormal) Range: 4.6 - 7.1 :31 Blood Glucose , Office (68711) Blood Glucose , Office 302 (Normal) Plan [...] up tomorrow, come as walk in for [facility] Indication: Nonsmoker Cough : Eprescribed prescriptions (G8553) [...] Make follow up apt with Silas and Commercial Sales ManagerMaximino on September 23 between 2-4 Indication: Acute [...] Wheezing Cough : Follow up tomorrow with [facility] Indication: Cough Unspecified asthma with (acute) [...] TESTS Indication: Acute sinusitis Planned Observations GLUCOSE (47278)Indication: Hypoglycemia On: 58-Baw-981453:48 Request Cortisol,Urinary Free 24- Hour Urine (36596)Indication: Adrenal adenoma, right On: 43-Uyr-797704:54 Request Catecholamines,24-Hour Urine (80032)Indication: Adrenal adenoma, right On: 68-Ydj-477034:54 Request DHEA (DEHYDROEPIANDROSTERONE) (00536)Indication: Adrenal adenoma, right On: 21-Air-866546:51 Request METABOLIC PANEL, COMPREHENSIVE (69272)Indication: Adrenal adenoma, right On: 68-Mrj-026775:51 Request LIPID PANEL (73454)Indication: Hypercholesteremia On: 80-Ndo-79427:23 Request HGB A1C (86845)Indication: Diabetes mellitus type II, controlled, with no complications (Renamed from Controlled type 2 diabetes mellitus without complication) On: 69-Qbe-533696:00 Request Comments: Jun 2016 1 week before apt METABOLIC PANEL, COMPREHENSIVE (70462)Indication: Hypercalcemia On: 85-Meg-349715:03 Request GLUCOSE (74129)Indication: Type 2 or unspecified type diabetes mellitus, uncontrolled On: 45-Xae-872900:00 Request METABOLIC PANEL, COMPREHENSIVE (09869)Indication: Type 2 or unspecified type diabetes mellitus, uncontrolled On: :28 Request CALCIFEDIOL (26620)Indication: Vitamin D deficiency, unspecified On: :27 Request URINALYSIS, W/ MICRO (49439)Indication: Type 2 or unspecified type diabetes mellitus, uncontrolled On: :18 Request MICROALBUMIN: CREATININE RATIO (40832) AND (13559)Indication: Type 2 or unspecified type diabetes mellitus, uncontrolled On: :18 Request TSH (48119)Indication: Type 2 or unspecified type diabetes mellitus, uncontrolled On: :18 Request Lipid Panel (95643)Indication: Type 2 or unspecified type diabetes mellitus, uncontrolled On: :18 Request Metabolic Panel, Comprehensive (85143)Indication: Type 2 or unspecified type diabetes mellitus, uncontrolled On: :18 Request HGB A1C (14416)Indication: Type 2 or unspecified type diabetes mellitus, uncontrolled On: :14 Request Comments: 6.6 CBC W/AUTO DIFF WBC (14606)Indication: Hypertension On: :07 Request METABOLIC PANEL, COMPREHENSIVE (06083)Indication: Hypertension On: 08-Oub-555070:07 Request Vitamin D Hydroxy (57659)Indication: Vitamin D deficiency, unspecified On: 66-Oxl-299550:07 Request LIPID PANEL (96816)Indication: Other and unspecified hyperlipidemia On: 93-Tnc-706736:07 Request Vitamin D Hydroxy (67579)Indication: Vitamin D deficiency, unspecified On: :15 Request CBC with auto diff (50540)Indication: Hypertension On: :14 Request TSH (80132)Indication: Hypothyroidism On: :14 Request MICROALBUMIN: CREATININE RATIO (67237) AND (21512)Indication: Type 2 or unspecified type diabetes mellitus, uncontrolled On: :14 Request METABOLIC PANEL, COMPREHENSIVE (16377)Indication: Hypertension On: :14 Request LIPID PANEL (36473)Indication: Other and unspecified hyperlipidemia On: :13 Request MYOGLOBIN (14992)Indication: Chest pain On: :52 Request CPK MB FRACTION (61831)Indication: Chest pain On: :52 Request ASSAY, TROPONIN, QUANTITATIVE (aka Troponin I) (23733)Indication: Chest pain On: :52 Request CBC WITH MANUAL DIFF (14523)Indication: Acute exacerbation of COPD with asthma On: :52 Request CALCIFEDIOL (56168)Indication: Depression On: :50 Request Lipid Panel (37320)Indication: Other and unspecified hyperlipidemia On: :50 Request TSH (34912)Indication: Hypothyroidism On: :49 Request URINALYSIS (22069)Indication: Hypertension On: :49 Request CBC WITH MANUAL DIFF (75037)Indication: Hypertension On: :49 Request Metabolic Panel, Comprehensive (87454)Indication: Hypertension On: :49 Request CBC (AUTO) (05612)Indication: Hypercalcemia On: 5-Nhy-978548:06 Request UPEP (02250)Indication: Hypercalcemia On: 4-Tvr-487526:06 Request SPEP (49213)Indication: Hypercalcemia On: 5-Qqx-456466:06 Request SED RATE ERYTHROCYTE (68592)Indication: Hypercalcemia On: 4-Tfj-079947:06 Request CALCIUM SERUM (97311)Indication: Hypercalcemia On: 9-Xfl-638849:05 Request PARATHORMONE (32417)Indication: Hypercalcemia On: 5-Hls-544085:05 Request FECAL OCCULT HGB ASSAY- tubes sent home (00018)Indication: Well woman exam with routine gynecological exam On: 79-Plk-086184:54 Request HgA1C , Office (40693)Indication: Type 2 or unspecified type diabetes mellitus, uncontrolled On: 78-Gvg-183471:45 Request CBC WITH MANUAL DIFF (35339)Indication: Osteopenia On: 39-Pbi-490598:23 Request Vitamin D Hydroxy (77228)Indication: Vitamin D deficiency, unspecified On: 00-Etb-088645:22 Request TSH (46215)Indication: Hypothyroidism On: 88-Tru-205632:22 Request METABOLIC PANEL, COMPREHENSIVE (28495)Indication: Sarcoidosis On: 60-Xxw-667900:21 Request Thin prep Pap (62766)Indication: Well woman exam with routine gynecological exam On: 8-Oig-542815:16 Request FECAL OCCULT HGB ASSAY- tubes sent home (24338)Indication: Well woman exam with routine gynecological exam On: 1-Jyv-004197:16 Request METABOLIC PANEL, COMPREHENSIVE (09228)Indication: Type 2 or unspecified type diabetes mellitus, uncontrolled On: 4-Fyc-967351:14 Request CBC WITH MANUAL DIFF (25881)Indication: Type 2 or unspecified type diabetes mellitus, uncontrolled On: 3-Ilc-018235:14 Request MICROALBUMIN: CREATININE RATIO (31471) AND (72311)Indication: Type 2 or unspecified type diabetes mellitus, uncontrolled On: 6-Ild-821003:14 Request Vitamin D Hydroxy (97063)Indication: Vitamin D deficiency, unspecified On: 9-Jft-096981:14 Request METABOLIC PANEL, COMPREHENSIVE (54301)Indication: Benign essential hypertension On: 2-Whn-031386:14 Request TSH (95812)Indication: Hypothyroidism On: 1-Azv-893246:14 Request LIPID PANEL (30616)Indication: Other and unspecified hyperlipidemia On: 8-Xna-518491:14 Request HgA1C , Office (10339)Indication: Type 2 or unspecified type diabetes mellitus, uncontrolled On: 8-Nht-866779:43 Request CBC WITH MANUAL DIFF (52309)Indication: Benign essential hypertension On: 7-Xhl-430948:22 Request METABOLIC PANEL, COMPREHENSIVE (55765)Indication: Benign essential hypertension On: 6-Lob-821064:22 Request LIPID PANEL (56505)Indication: Other and unspecified hyperlipidemia On: 7-Kab-369843:22 Request MEHREEN CULTURE-OTHER (46334)Indication: Pharyngitis, acute On: 47-Lca-053982:38 Request LIPID PANEL (38784)Indication: Other and unspecified hyperlipidemia On: :40 Request CBC WITH MANUAL DIFF (88608)Indication: DIABETES MELLITUS WITHOUT MENTION OF COMPLICATION; TYPE II OR UNSPECIFIED TYPE, NOT STATED UNCONTROLLED On: :40 Request METABOLIC PANEL, COMPREHENSIVE (64759)Indication: DIABETES MELLITUS WITHOUT MENTION OF COMPLICATION; TYPE II OR UNSPECIFIED TYPE, NOT STATED UNCONTROLLED On: 94-Acs-629239:40 Request Vitamin D Hydroxy (68421)Indication: Vitamin D deficiency, unspecified On: 20-Osd-061525:38 Request CULTURE, SPUTUM (57945)Indication: Flu On: 34-Fqh-511064:45 Request nasal influenza swab (37788) M3Jfplbuvkiw: Cough On: 4-Bpy-965338:00 Request Rapid Flu (10435 x 2)Indication: Cough On: 4-Gha-624514:53 Request HEPATIC FUNCTION PANEL (09879)Indication: Other and unspecified hyperlipidemia On: :42 Request LIPID PANEL (89128)Indication: Other and unspecified hyperlipidemia On: :42 Request Vitamin D Hydroxy (67192)Indication: Vitamin D deficiency, unspecified On: :41 Request Lipase (75373)Indication: Nausea On: :41 Request Amylase (90657)Indication: Nausea On: :41 Request C-REACTIVE PROTEIN (28542)Indication: SOB (shortness of breath) on exertion On: 96-Iiv-394017:39 Request SED RATE ERYTHROCYTE (72955)Indication: SOB (shortness of breath) on exertion On: :39 Request METABOLIC PANEL, COMPREHENSIVE (81396)Indication: SOB (shortness of breath) on exertion On: :39 Request CBC WITH MANUAL DIFF (41530)Indication: SOB (shortness of breath) on exertion On: :39 Request D-Dimer (82985)Indication: SOB (shortness of breath) on exertion On: :39 Request TSH (17649)Indication: Hypothyroidism On: 91-Zxq-188586:41 Request MICROALBUMIN: CREATININE RATIO (36633) AND (85790)Indication: DIABETES MELLITUS WITHOUT MENTION OF COMPLICATION; TYPE II OR UNSPECIFIED TYPE, NOT STATED UNCONTROLLED On: 61-Vik-079122:37 Request HEPATIC FUNCTION PANEL (63476)Indication: Other and unspecified hyperlipidemia On: 55-Zmg-029665:37 Request LIPID PANEL (88945)Indication: Other and unspecified hyperlipidemia On: 78-Atk-972421:37 Request URINE MEHREEN CULTURE-SUNNY COL COUNT (67021)Indication: Urinary frequency On: 73-Emr-760671:05 Request URINE MEHREEN CULTURE-SUNNY COL COUNT (77039)Indication: Urinary frequency On: 30-Ngr-351754:05 Request URINE MEHREEN CULTURE-SUNNY COL COUNT (23920)Indication: Urinary frequency On: 61-Pkt-964056:05 Request URINE MEHREEN CULTURE-SUNNY COL COUNT (53745)Indication: Urinary frequency On: :05 Request URINE MEHREEN CULTURE-SUNNY COL COUNT (55281)Indication: Urinary frequency On: 61-Wur-944329:05 Request URINE MEHREEN CULTURE-SUNNY COL COUNT (90136)Indication: Urinary frequency On: :05 Request URINE MEHREEN CULTURE-SUNNY COL COUNT (72710)Indication: Urinary frequency On: :05 Request MEHREEN CULTURE-OTHER (52657)Indication: Family history of aneurysm On: 87-Ejv-793975:17 Request MICROALBUMIN URINE QUANT (74684)Indication: Type 2 or unspecified type diabetes mellitus, uncontrolled On: 78-Hgh-33454:55 Request METABOLIC PANEL, COMPREHENSIVE (46995)Indication: Hypertension On: :54 Request TSH (91593)Indication: Hypothyroidism On: :54 Request LIPID PANEL (68507)Indication: Other and unspecified hyperlipidemia On: 85-Awa-35856:53 Request TSH (37023)Indication: Hypothyroidism On: 61-Mfe-540849:49 Request METABOLIC PANEL, COMPREHENSIVE (44102)Indication: DIABETES MELLITUS WITHOUT MENTION OF COMPLICATION; TYPE II OR UNSPECIFIED TYPE, NOT STATED UNCONTROLLED On: 68-Kxa-629830:49 Request LIPID PANEL (63461)Indication: DIABETES MELLITUS WITHOUT MENTION OF COMPLICATION; TYPE II OR UNSPECIFIED TYPE, NOT STATED UNCONTROLLED On: 32-Yul-965418:49 Request CBC WITH MANUAL DIFF (30772)Indication: Anemia On: :49 Request Rapid Strep Test, Office (94193)Indication: Pharyngitis, acute On: :27 Request Comments: neg HDL Cholesterol-Direct (23912)Indication: Low HDL (under 40) On: 43-Oab-041943:41 Request Comments: DO IN 3 MO LIPID PANEL (92783)Indication: Other and unspecified hyperlipidemia On: :54 Request URINALYSIS W/O MICRO (50760)Indication: Hypertension On: :54 Request TSH (53238)Indication: Hypothyroidism On: 70-Tnx-237437:54 Request METABOLIC PANEL, COMPREHENSIVE (59614)Indication: Hypertension On: :54 Request CBC WITH MANUAL DIFF (68271)Indication: Anemia On: :54 Request TSH (14101)Indication: Hypothyroidism On: :59 Request URINALYSIS W/O MICRO (98241)Indication: Type 2 or unspecified type diabetes mellitus, uncontrolled On: :59 Request CBC WITH MANUAL DIFF (17749)Indication: Type 2 or unspecified type diabetes mellitus, uncontrolled On: :59 Request MICROALBUMIN: CREATININE RATIO (36251) AND (91202)Indication: Type 2 or unspecified type diabetes mellitus, uncontrolled On: :58 Request METABOLIC PANEL, COMPREHENSIVE (75249)Indication: Type 2 or unspecified type diabetes mellitus, uncontrolled On: :58 Request HgA1C , Office (00535)Indication: Abnormal glucose tolerance test On: 27-Vxb-445051:35 Request Blood Glucose , Office (85237)Indication: Abnormal glucose tolerance test On: 40-Age-657726:35 Request Planned Encounters Medical; 1 Month FU - On: 13-Apr-2018 13:45 [facility] Dafne Jaime CNP, CNP, Mary E Medical; Walk Assessment - On: 20-Apr-2018 13:00 [facility] Visit, Nurse Medical; 3 Month FU - On: 02-May-2018 11:30 [facility] Dafne Jaime CNP, CNP, Mary E Planned Procedures INFUSION, NORMAL SALINE On: 24-Jan-2018 Intent SOLUTION , 1000 CC Comments: lot:[id number]:[id number]:IV right anticub dose:1000ml given by:carmen Shay LPN (Special Coverage Instructions Apply. See MCM: 2049) (J7030)By: Dafne Jaime CNP, CNP, Mary E IV Needle placement On: 24-Jan-2018 Intent (68001)By: Dafne Jaime CNP, CNP, Mary E Radiology - Lumbar On: 23-Dec-2017 Intent SpineBy: Yoselin Oconnell CT - Abdomen & Pelvis On: 23-Dec-2017 Intent Stone ProtocolBy: Anish, Comments: STAT R/O Kidney stones bilateral Yoselin COMP EYE EXAMINATION, On: 09-Dec-2017 Intent ESTAB PATIENT (08201)By: Yoselin Oconnell Toradol Injection, 30 mg On: 12-Jul-2017 Intent (J1885)By: Dafne Jaime CNP, CNP, Mary E Toradol Injection, 30 mg On: 07-Apr-2017 Intent (J1885)By: Dafne Jaime CNP, CNP, Mary E Flu Vaccine (Quadrivalent) On: 24-Mar-2017 Intent 29811Yt: Dafne Jaime CNP, CNP, Mary E Toradol Injection, 30 mg On: 24-Mar-2017 Intent (J1885)By: Dafne Jaime CNP, CNP, Mary E Rocephin Injection, 2 Gram On: 18-Nov-2016 Intent (J0696)By: Dafne Jaime CNP, CNP, Mary E Aerosol Treatment On: 18-Nov-2016 Intent (14641)By: Dafne Jaime CNP, CNP, Mary E Solu -Medrol Injection, On: 18-Nov-2016 Intent 125 mg (J2930)By: Dafne Jaime CNP, CNP, Mary E MAMMOGRAM, SCREENING, BOTH On: 19-Aug-2016 Intent BREAST (36419)By: Dafne Jaime CNP, CNP, Mary E DEXA SCAN AXIAL SKELETON On: 19-Aug-2016 Intent (44738)By: Dafne Jaime CNP, CNP, Mary E GROUP PULMONARY On: 11-Feb-2016 Intent REHABILITATION WITH EXERCISE (77398)By: Dafne Jaime CNP, CNP, Mary E Six Minute Walk Assessment On: 17-Oct-2015 Intent (27995)By: Visit, Nurse PFT - CompleteBy: Kita On: 24-Sep-2015 Intent Vanessa HUTCHINSON Rocephin Injection, 2 Gram On: 21-Aug-2015 Intent (J0696)By: Addison DOUGHERTY, Comments: IV 2 gramsright [id number] guagetolerated welllot [id number] 02/12as, LITHOGRAPHIC PRESS OPERATOR APPRENTICE Dafne Jaime LADONNA, Radha INFUSION, NORMAL SALINE On: 21-Aug-2015 Intent SOLUTION , 1000 CC (Special Coverage Instructions Apply. See MCM: 2048) (J7030)By: Dafne Jaime CNP, CNP, Radha Solu -Medrol Injection, On: 21-Aug-2015 Intent 125 mg (J2930)By: Addison Comments: lot [id number] 12/1824 mcgIMright gmas, LITHOGRAPHIC PRESS OPERATOR APPRENTICE LADONNA, Radha Ciezraalcon DOUGHERTY, Radha Radiology - ChestBy: Addison On: 20-Aug-2015 Intent LADONNA Radha Tgezraalcon DOUGHERTY, Comments: call results to [facility] Dafne Mota INFUSION, NORMAL SALINE On: 20-Aug-2015 Intent SOLUTION , 250 CC (J7050)By: Dafne Jaime CNP, CNP, Radha Rocephin Injection, 2 Gram On: 20-Aug-2015 Intent (J0696)By: Addison DOUGHERTY, Comments: IV 2 gramsright qmxaerh44 guagetolerated well, no redness notedlot [id number] 01/26/18as, LITHOGRAPHIC PRESS OPERATOR APPRENTICE Dafne Mota Tggreg LADONNA, Dafne Mota Solu -Medrol Injection, On: 20-Aug-2015 Intent 125 mg (J2930)By: Addison Comments: SOLUMEDROLlot:[id number]:ite:lt glutroute:IMdose:125mgDEMICK, LINDA DOUGHERTY, Dafne Jaime LADONNA, Radha Aerosol Treatment On: 20-Aug-2015 Intent (27189)By: Slarb LITHOGRAPHIC PRESS OPERATOR APPRENTICE, Gloria Rocephin Injection, 2 Gram On: 19-Aug-2015 Intent (J0696)By: Addison DOUGHERTY, Comments: [id number] hip, IM JM, CAPTAIN CANNERY TENDER Dafne Jaime CHICKEN CATCHER, Radha Solu -Medrol Injection, On: 19-Aug-2015 Intent 125 mg (J2930)By: Ciesa Comments: [id number]-Z hip, IMDose-prefilled syringegiven by:DOUGLAS House signed LADONNA, Dafne Mota Addison DOUGHERTY, Dafne Mota Aerosol Treatment On: 19-Aug-2015 Intent (18083)By: Gloria Hammer LPN Solu -Medrol Injection, On: 07-Jun-2015 Intent 125 mg (J2930)By: Liset Comments: [id number]-E hip, IMDose-prefilled syringegiven by:ASHLY PERALES signed Giovani HUTCHINSON Rocephin Injection, 2 Gram On: 07-Jun-2015 Intent (J0696)By: Liset HUTCHINSON, Comments: [id number] grams rocephin IV22G, 1 inchSite: existing lock flushed easily before and after and then d/c for the weekendTolerated: wellno redness or swelling, no s/s infiltrationML, LITHOGRAPHIC PRESS OPERATOR APPRENTICE Giovani INFUSION, NORMAL SALINE On: 07-Jun-2015 Intent SOLUTION , 250 CC ([id number])By: Giovani Hutchins MD INFUSION, NORMAL SALINE On: 06-Jun-2015 Intent SOLUTION , 250 CC ([id number])By: Giovani Hutchins MD Rocephin Injection, 2 Gram On: 06-Jun-2015 Intent ([id number])By: Liset HUTCHINSON, Comments: [id number] gramsIV Therapy [id number], 1 inchSite: R ac - lock flushed nicely and left in place for tomorrowTolerated: well x 1st attemptno redness or swelling, no s/s infiltrationML, LITHOGRAPHIC PRESS OPERATOR APPRENTICE Giovani Solu -Medrol Injection, On: 06-Jun-2015 Intent 125 mg ([id number])By: Liset Comments: [id number] hip, IMMLSHIRA MD, [facility] - ChestBy: Liset On: 06-Jun-2015 Intent Giovani HUTCHINSON Comments: Acute execerbation of COPD?PNA Aerosol Treatment On: 06-Jun-2015 Intent ([id number])By: Giovani Hutchins MD Overnight Pulse OX On: 03-Jun-2015 Intent ([id number])By: Jackie Christina DO Six Minute Walk Assessment On: 29-May-2015 Intent ([id number])By: Jackie Christina DO Overnight Pulse OX On: 29-May-2015 Intent ([id number])By: Jackie Christina DO MAMMOGRAM, SCREENING, BOTH On: 03-May-2015 Intent BREAST ([id number])By: Jackie Christina DO Six Minute Walk Assessment On: 25-Feb-2015 Intent ([id number])By: Jackie Christina DO Overnight Pulse OX On: 25-Feb-2015 Intent ([id number])By: Jackie Christina DO BILATERAL MAMMOGRAMS On: 26-Nov-2014 Intent (60135)By: Jackie Christina DO EKG ([id number])By: Marquise JHAVERI, On: 26-Nov-2014 Intent Jackie Rondon Comments: ekg showed normal sinus rhythym, normal axis, no acute st/t wave changes twave inversion ant no change Solu -Medrol Injection, On: 08-Aug-2014 Intent 125 mg ([id number])By: Addison Comments: [id number], IMR hip, IMJM, ANNELIESE DOUGHERTY, Dafne Durán CNP Rocephin Injection, 2 Gram On: 08-Aug-2014 Intent ([id number])By: Addison DOUGHERTY, Comments: [id number] grams IV R ac, x 1 attempt - tolerated well Alisha, LITHOGRAPHIC PRESS OPERATOR APPRENTICE Dafne Durán CNP INFUSION, NORMAL SALINE On: 08-Aug-2014 Intent SOLUTION , 250 CC ([id number])By: Dafne Jaime CNP, CNP, Mary E IV Needle placement On: 07-Aug-2014 Intent ([id number])By: Dafne Jaime CNP Comments: 22G insyte initiated on 1st attempt w/o difficulty, no s/s redness, swelling infiltration, infusing on gravity pole at 38gtts/min, dsg dry intact, catheter removed intact- tolerated well- CTyler LITHOGRAPHIC PRESS OPERATOR APPRENTICE E Dafne Jaime CNP Solu -Medrol Injection, On: 07-Aug-2014 Intent 125 mg ([id number])By: Addison Comments: Lot:[id number]:12/2016Dose:125mgRoute:imSite:r armGiven By:Dafne Alejandro CNP, CNP, Mary E INFUSION, NORMAL SALINE On: 07-Aug-2014 Intent SOLUTION , 250 CC ([id number])By: Addison DOUGHERTY RadhaDafne Redd CNP Rocephin Injection, 2 Gram On: 07-Aug-2014 Intent ([id number])By: Addison DOUGHERTY, Comments: lot # [id number]- 02/26/2017site-R Median antecuberoute-IVdose- 2GCTyler LITHOGRAPHIC PRESS OPERATOR APPRENTICE RadhaDafne Redd CNP Aerosol Treatment On: 07-Aug-2014 Intent ([id number])By: Dafne Jaime CNP Comments: ipitropium- tolerated well- CTyler LITHOGRAPHIC PRESS OPERATOR APPRENTICE E Dafne Jaime CNP Radiology - ChestBy: Addison On: 06-Aug-2014 Intent LADONNA RadhaNakul Jaime CNP Radha Rocephin Injection, 2 Gram On: 06-Aug-2014 Intent ([id number])By: Dafne Jaime CNP, CNP, Mary E Solu -Medrol Injection, On: 06-Aug-2014 Intent 125 mg ([id number])By: Dafne Jaime CNP, CNP Rdaha Aerosol Treatment On: 31-Jul-2014 Intent ([id number])By: Vanessa Chen MD Solu- Medrol Injection, On: 31-Jul-2014 Intent 125mg (J2930)By: Vanessa Chen MD Eprescribed prescriptions On: 31-Jul-2013 Intent (G8553)By: Ivanna Maddox Overnight Pulse OX On: 10-May-2013 Intent ([id number])By: Jackie Christina DO Spirometry (41558)By: On: 02-May-2013 Intent Jackie Christina DO Comments: good effort cure mild obst EKG (96549)By: Tan, On: 02-May-2013 Intent Ivanna Comments: ekg showed normal sinus rhythym, normal axis, no acute st/t wave changes no change in twave inversion ant Six Minute Walk Assessment On: 02-May-2013 Intent (97039)By: Jackie Christina DO Overnight Pulse OX On: 02-May-2013 Intent ([id number])By: Fast DO, Jackie A Eprescribed prescriptions On: 02-May-2013 Intent (G8553)By: Ivanna Maddox MAMMOGRAM, SCREENING, BOTH On: 18-Apr-2013 Intent BREASTS ([id number])By: Jackie Christina DO Clinical Breast On: 18-Apr-2013 Intent Examination (G0101)By: Ivanna Maddox Solu- Medrol Injection, On: 26-Oct-2012 Intent 125mg ([id number])By: Marquise JHAVERI, Comments: Lot #[id number]-R hip, IMDose-prefilled syringegiven by:VANESA House signed Jackie A Aerosol Treatment On: 26-Oct-2012 Intent (30767)By: Jackie Christina DO Eprescribed prescriptions On: 26-Oct-2012 Intent (G8553)By: Ivanna Maddox Pulse Oximetry (38058)By: On: 26-Oct-2012 Intent Ivanna Maddox Comments: 98% Spirometry (48063)By: On: 06-Sep-2012 Intent Anahi Alex DO Comments: mild restrictive Aerosol Treatment On: 06-Sep-2012 Intent (40354)By: Abi JHAVERI, Comments: done pt tolerated well. Albuterol 0.83%-- better a/e no wheeze Anahi Solu- Medrol Injection, On: 06-Sep-2012 Intent 125mg ([id number])By: Abi Comments: 2ml given im lt hip lot [id number] exp 04/11 Anahi JHAVERI Eprescribed prescriptions On: 06-Sep-2012 Intent (G8553)By: Anahi Alex DO Pulse Oximetry (76010)By: On: 06-Sep-2012 Intent Anahi Alex DO Eprescribed prescriptions On: 22-Aug-2012 Intent (G8553)By: Ivanna Maddox Overnight Pulse OX On: 03-May-2012 Intent (74034)By: Jackie Christina DO Comments: Patient demonstrates understanding of how to operate macine. Alisha. A Eprescribed prescriptions On: 27-Apr-2012 Intent (G8553)By: Ivanna Maddox Six Minute Walk Assessment On: 01-Apr-2012 Intent (84368)By: Karon Real LPNe PNEUM VAC ADLT/IMUMNOSPR, On: 18-Mar-2012 Intent SBC/INTRM (25474)By: Marquise Comments: Lot:[id number]:08-10-13Dose:0.5 mLRoute:IM Site:[facility] By:Jackie Alejandro DO PFT - CompleteBy: Marquise JHAVERI, On: 18-Mar-2012 Intent Jackie Rondon Six Minute Walk Assessment On: 18-Mar-2012 Intent (14186)By: Jackie Christina DO Overnight Pulse OX On: 18-Mar-2012 Intent (44733)By: Jackie Christina DO IMMUNIZ ADMNIN, 1 VAC, On: 18-Mar-2012 Intent SNGL/COMBO ([id number])By: Jackie Christina DO DXA, BONE DENSITY, AXIAL On: 18-Mar-2012 Intent SKELETON (63537)By: Jackie Christina DO MAMMOGRAM, SCREENING, BOTH On: 18-Mar-2012 Intent BREASTS ([id number])By: Jackie Christina DO CT - ChestBy: Marquise JHAVERI, On: 03-Feb-2012 Intent Jackie A Solu- Medrol Injection, On: 30-Sep-2011 Intent 125mg (J2930)By: Marquise JHAVERI, Comments: Lot #[id number]/14Site-right [id number] by: SHIRA Anderson Aerosol Treatment On: 30-Sep-2011 Intent ([id number])By: Jackei Christina DO Pulse Oximetry (50405)By: On: 30-Sep-2011 Intent Ivanna Maddox Comments: 97% Solu -Medrol Injection, On: 25-Sep-2011 Intent 125 mg (J2930)By: Dafne Jaime CNP, CNP, Mary E Pulse Oximetry (70957)By: On: 25-Sep-2011 Intent Dafne Jaime CNP, CNP, Mary E FLU VAC, SPLIT, >3 YEARS, On: 01-Jul-2011 Intent INTRAMUSC (55746)By: Comments: Ivanna Minor MAMMOGRAM, SCREENING, BOTH On: 31-Mar-2011 Intent BREASTS (39223)By: Jackie Christina DO Solu -Medrol Injection, On: 31-Mar-2011 Intent 125 mg (J2930)By: Jackie Christina DO Eprescribed prescriptions On: 31-Mar-2011 Intent (G8553)By: Jackie Christina DO Solu- Medrol Injection, On: 16-Dec-2010 Intent 125mg (J2930)By: Marquise JHAVERI, Comments: lot # [id number]- [id number]-CLLNEMfongr-HAnapy- 2ML tolerated well CHenderson LITHOGRAPHIC PRESS OPERATOR APPRENTICE Jackie A Aerosol Treatment On: 16-Dec-2010 Intent (04105)By: Jackie Christina DO Comments: tolerated well A Pulse Oximetry (68717)By: On: 16-Dec-2010 Intent Jackie Christina DO Comments: 96% on room air Eprescribed prescriptions On: 16-Dec-2010 Intent (G8553)By: Jackie Christina DO Pulse Oximetry (01194)By: On: 15-Jul-2010 Intent Ivanna Maddox Comments: 96% TD Injection , IM On: 04-Jul-2010 Intent (97110)By: Jackie Christina DO Comments: Lot #[id number]-R DltdDose 0.5mlgiven by:UDAY Rondon EKG (57336)By: Tan, On: 04-Jul-2010 Intent Ivanna Radiology - Lumbar On: 12-May-2010 Intent SpineBy: Ciesa CHICKEN CATCHER, Radha Ciesa CHICKEN CATCHER, Radha MAMMOGRAM, SCREENING, BOTH On: 19-Nov-2009 Intent BREASTS (68107)By: Jackie Christina DO MAMMOGRAM, SCREENING, BOTH On: 07-May-2009 Intent BREASTS (76215)By: Jackie Christina DO EKG (46270)By: Tan On: 07-May-2009 Intent Ivanna Comments: ekg showed normal sinus rhythym, normal axis, no acute st/t wave changes Aerosol Treatment On: 22-Apr-2009 Intent (96682)By: Jermain, Comments: post aerosol tx, pt states i can breath a whole lot better Ivanna Radiology - Chest- PA and On: 19-Apr-2009 Intent LatBy: Anahi Alex DO Pulse Oximetry ([id number])By: On: 04-Apr-2009 Intent Ciesa CHICKEN CATCHER, Radha Ciesa CHICKEN CATCHER, Radha Aerosol Treatment On: 21-Sep-2008 Intent ([id number])By: Jackie Christina DO CT - ChestBy: Marquise JHAVERI, On: 21-Sep-2008 Intent Jackie A Comments: please also look at right upper quadrant- do stat and call wet read Pulse Oximetry ([id number])By: On: 21-Sep-2008 Intent Ivanna Maddox Comments: 97% Radiology - Lumbar On: 14-Jun-2008 Intent SpineBy: Jackie Christina DO Comments: bone density suggest possible compression at l5 Ultrasound - AortaBy: Marquise On: 24-Apr-2008 Intent Jackie JHAVERI Holter Moniter (03402)By: On: 24-Apr-2008 Intent Jackie Christina DO EKG (84379)By: Marquise JHAVERI, On: 24-Apr-2008 Intent Jackie A Comments: ekg showed normal sinus rhythym, normal axis, no acute st/t wave changes negative precordial t waves == no change DXA, BONE DENSITY, AXIAL On: 24-Apr-2008 Intent SKELETON (38147)By: Jackie Christina DO INFUSION, NORMAL SALINE On: 09-Nov-2007 Intent SOLUTION , 1000CC (Special Coverage Instructions Apply. See MCM: 2049) (J7050)By: Anahi Alex DO IV Needle placement On: 09-Nov-2007 Intent ([id number])By: Abi JHAVERI, Comments: PLACED 22 G R ANTECUBITAL - PT DENY WELLGOOD RETURN Anahi IV Infusion (70747)By: On: 09-Nov-2007 Intent Anahi Alex DO Nuclear Stress Test/Stress On: 17-Oct-2007 Intent SPECT/AdenosineBy: Jackie Christina DO Nuclear Stress Test/Stress On: 18-Jul-2007 Intent SPECT/AdenosineBy: Jackie Christina DO EKG (54619)By: Marquise JHAVERI, On: 18-Jul-2007 Intent Jackie A Comments: ekg showed normal sinus rhythym, normal axis, no acute st/t wave changes has neg twaves on precordium but are unchanged Pneumovax (60079)By: Fast On: 11-Apr-2007 Intent Jackie JHAVERI EKG (32589)By: Abi JHAVERI, On: 19-Jan-2007 Intent Anahi Comments: NSR NONSPECIFIC CHANGES-- Pulse Oximetry (23701)By: On: 24-Sep-2006 Intent Anahi Alex DO Comments: 98% RA Aerosol Treatment On: 24-Sep-2006 Intent (40995)By: Abi JHAVERI, Comments: AFTER AEROSOL STILL RHONCHOROUS AND WHEEZY THROUGHOUT BUT MORE AIR EXCHANGE AND PT FEEL IT HELPS Anahi Solu- Medrol Injection, On: 24-Sep-2006 Intent 125mg (J2930)By: Anahi Alex DO Rocephin Injection, 2 Gram On: 24-Sep-2006 Intent (J0696)By: Abi JHAVERI, Comments: IM Anahi Solu- Medrol Injection, On: 23-Sep-2006 Intent 125mg ([id number])By: Abi Comments: Lot #: [id number] date: 04/05Amount given: 125 mg/2 mlRoute: IMSite given: Left glutealGiven by: Alcon Arrieta LPN DO, [facility] - Chest- PA and On: 23-Sep-2006 Intent LatBy: Anahi Alex DO Aerosol Treatment On: 23-Sep-2006 Intent (15241)By: Abi JHAVERI, Comments: after aerosol- diffuse wheeze and rhonchi lil softer-- more air exchange though Anahi Pulse Oximetry ([id number])By: On: 23-Sep-2006 Intent Mast Karen FRAGOSO Comments: 98% PNEUM VAC ADLT/IMUMNOSPR, On: 08-Jul-2006 Intent SBC/INTRM ([id number])By: MARKIE Hayden IMMUNIZ ADMNIN, 1 VAC, On: 08-Jul-2006 Intent SNGL/COMBO (78114)By: MARKIE Hayden Planned Medications INFUSION, NORMAL SALINE SOLUTION , 1000 CC Ordered: 24-Jan-2018 Pending Ciesa Dafne DOUGHERTYesa LADONNA, Radha INFUSION, NORMAL SALINE SOLUTION , 1000 CC Ordered: 21-Aug-2015 Pending Ciesa CHICKEN CATCHERDafne Ciesalcon DOUGHERTY, Radha INFUSION, NORMAL SALINE SOLUTION , 250 CC Ordered: 20-Aug-2015 Pending Ciesa CHICKEN CATCHER, Radha Ciesa CHICKEN CATCHER, Radha INFUSION, NORMAL SALINE SOLUTION , 250 CC Ordered: 07-Jun-2015 Pending Giovani Hutchins MD INFUSION, NORMAL SALINE SOLUTION , 250 CC Ordered: 08-Aug-2014 Pending Ciesa CHICKEN CATCHER, Radha Ciesa CHICKEN CATCHER, Radha INFUSION, NORMAL SALINE SOLUTION , 250 CC Ordered: 07-Aug-2014 Pending Ciesa CHICKEN CATCHER, Radha Ciesa CHICKEN CATCHER, Radha INFUSION, NORMAL SALINE SOLUTION , 250 CC Ordered: 06-Jun-2015 Pending Giovani Hutchins MD INJECTION, CEFTRIAXONE SODIUM, PER 250 MG Ordered: 21-Aug-2015 Pending Ciesa CHICKEN CATCHER, Radha Ciesa CHICKEN CATCHER, Radha INJECTION, CEFTRIAXONE SODIUM, PER 250 MG Ordered: 07-Jun-2015 Pending Giovani Hutchins MD INJECTION, CEFTRIAXONE SODIUM, PER 250 MG Ordered: 06-Jun-2015 Pending Giovani Hutchins MD INJECTION, CEFTRIAXONE SODIUM, PER 250 MG Ordered: 19-Aug-2015 Pending Ciesa CHICKEN CATCHER, Radha Ciesa CHICKEN CATCHER, Radha INJECTION, CEFTRIAXONE SODIUM, PER 250 MG Ordered: 08-Aug-2014 Pending Ciesa CHICKEN CATCHER, Radha Ciesa CHICKEN CATCHER, Radha INJECTION, CEFTRIAXONE SODIUM, PER 250 MG Ordered: 20-Aug-2015 Pending Ciesa CHICKEN CATCHER, Radha Ciesa CHICKEN CATCHER, Radha INJECTION, CEFTRIAXONE SODIUM, PER 250 MG Ordered: 07-Aug-2014 Pending Ciesa CHICKEN CATCHER, Radha Ciesa CHICKEN CATCHER, Radha INJECTION, CEFTRIAXONE SODIUM, PER 250 MG Ordered: 06-Aug-2014 Pending Ciesa CHICKEN CATCHER, Radha Ciesa CHICKEN CATCHER, Radha INJECTION, CEFTRIAXONE SODIUM, PER 250 MG Ordered: 18-Nov-2016 Pending Ciesa CHICKEN CATCHER, Radha Ciesa CHICKEN CATCHER, Radha INJECTION, KETOROLAC TROMETHAMINE, PER 15 MG Ordered: 24-Mar-2017 Pending Ciesa CHICKEN CATCHER, Radha Ciesa CHICKEN CATCHER, Radha INJECTION, KETOROLAC TROMETHAMINE, PER 15 MG Ordered: 07-Apr-2017 Pending Ciesa CHICKEN CATCHER, Radha Ciesa CHICKEN CATCHER, Radha INJECTION, KETOROLAC TROMETHAMINE, PER 15 MG Ordered: 12-Jul-2017 Pending Ciesa CHICKEN CATCHER, Radha Ciesa CHICKEN CATCHER, Radha INJECTION, METHYLPREDNISOLONE SODIUM SUCCINATE, UP TO 125 MG Ordered: 18-Nov-2016 Pending Ciesa CHICKEN CATCHER, Radha Ciesa CHICKEN CATCHER, Radha INJECTION, METHYLPREDNISOLONE SODIUM SUCCINATE, UP TO 125 MG Ordered: 31-Mar-2011 Pending Fast DO, Jackie A INJECTION, METHYLPREDNISOLONE SODIUM SUCCINATE, UP TO 125 MG Ordered: 21-Aug-2015 Pending Ciesa CHICKEN CATCHER, Radha Ciesa CHICKEN CATCHER, Radha INJECTION, METHYLPREDNISOLONE SODIUM SUCCINATE, UP TO 125 MG Ordered: 25-Sep-2011 Pending Ciesa CHICKEN CATCHER, Radha Ciesa CHICKEN CATCHER, Radha INJECTION, METHYLPREDNISOLONE SODIUM SUCCINATE, UP TO 125 MG Ordered: 06-Aug-2014 Pending Ciesa CHICKEN CATCHER, Radha Ciesa CHICKEN CATCHER, Radha INJECTION, METHYLPREDNISOLONE SODIUM SUCCINATE, UP TO 125 MG Ordered: 07-Jun-2015 Pending Liset HUTCHINSON, Giovani INJECTION, METHYLPREDNISOLONE SODIUM SUCCINATE, UP TO 125 MG Ordered: 19-Aug-2015 Pending Ciesa CHICKEN CATCHER, Radha Ciesa CHICKEN CATCHER, Radha INJECTION, METHYLPREDNISOLONE SODIUM SUCCINATE, UP TO 125 MG Ordered: 31-Jul-2014 Pending Kita HUTCHINSON, Vanessa M INJECTION, METHYLPREDNISOLONE SODIUM SUCCINATE, UP TO 125 MG Ordered: 30-Sep-2011 Pending Fast DO, Jackie A INJECTION, METHYLPREDNISOLONE SODIUM SUCCINATE, UP TO 125 MG Ordered: 06-Jun-2015 Pending Liset HUTCHINSON, Giovani INJECTION, METHYLPREDNISOLONE SODIUM SUCCINATE, UP TO 125 MG Ordered: 08-Aug-2014 Pending Ciesa CHICKEN CATCHER, Radha Ciesa CHICKEN CATCHER, Radha INJECTION, METHYLPREDNISOLONE SODIUM SUCCINATE, UP TO 125 MG Ordered: 06-Sep-2012 Pending Anahi Alex DO INJECTION, METHYLPREDNISOLONE SODIUM SUCCINATE, UP TO 125 MG Ordered: 07-Aug-2014 Pending Ciesa CHICKEN CATCHER, Radha Ciesa CHICKEN CATCHER, Radha INJECTION, METHYLPREDNISOLONE SODIUM SUCCINATE, UP TO 125 MG Ordered: 26-Oct-2012 Pending Fast DO, Jackie A INJECTION, METHYLPREDNISOLONE SODIUM SUCCINATE, UP TO 125 MG Ordered: 20-Aug-2015 Pending Ciesa CHICKEN CATCHER, Radha Ciesa CHICKEN CATCHER, Radha INJECTION, METHYLPREDNISOLONE SODIUM SUCCINATE, UP TO [...] BLD CNT, COMPL CBC W/AUTO DIFF WBC (63280) Indication: Benign essential hypertension Other and unspecified hyperlipidemia : DISCONTINUED - LIPID PANEL (01931) Indication: Other and unspecified hyperlipidemia Hypothyroidism : DISCONTINUED - TSH (95633) Indication: Hypothyroidism Other and unspecified hyperlipidemia : DISCONTINUED - LIPID PANEL (64968) Indication: Other and unspecified hyperlipidemia DIABETES MELLITUS WITHOUT MENTION OF COMPLICATION; TYPE II OR UNSPECIFIED TYPE, NOT STATED UNCONTROLLED : DISCONTINUED - MICROALBUMIN: CREATININE RATIO (34949) AND (63621) Indication: DIABETES MELLITUS WITHOUT MENTION OF COMPLICATION; TYPE II OR UNSPECIFIED TYPE, NOT STATED UNCONTROLLED DIABETES MELLITUS WITHOUT MENTION OF COMPLICATION; TYPE II OR UNSPECIFIED TYPE, NOT STATED UNCONTROLLED : DISCONTINUED - METABOLIC PANEL, COMPREHENSIVE (28813) Indication: DIABETES MELLITUS WITHOUT MENTION OF COMPLICATION; TYPE II OR UNSPECIFIED TYPE, NOT STATED UNCONTROLLED DIABETES MELLITUS WITHOUT MENTION OF COMPLICATION; TYPE II OR UNSPECIFIED TYPE, NOT STATED UNCONTROLLED : DISCONTINUED - CBC WITH MANUAL DIFF (62073) Indication: DIABETES MELLITUS WITHOUT MENTION OF COMPLICATION; TYPE II OR UNSPECIFIED TYPE, NOT STATED UNCONTROLLED DIABETES MELLITUS WITHOUT MENTION OF COMPLICATION; TYPE II OR UNSPECIFIED TYPE, NOT STATED UNCONTROLLED : DISCONTINUED - METABOLIC PANEL, COMPREHENSIVE (39264) Indication: DIABETES MELLITUS WITHOUT MENTION OF COMPLICATION; [...] mellitus, uncontrolled : DISCONTINUED - LIPID PANEL (47094) Indication: Type 2 or unspecified type diabetes [...] Indication: Meralgia paresthetica Encounters Office Visit On: 09-Mar-2018 13:48 Encounter Reason: [...] sent home. Mother was admitted then to [facility], [ADDITIONAL REASON] Diabetes Type II, Follow [...] last night with urine frequency and urgency, End: 13-Dec-2017 15:21 ills with urination, strong [...] On: 13-Jul-2017 6:24 [facility] End: 16-Madi-2018 6:35 Office Visit On: 12-Jul-2017 14:06 Encounter [...] side effects and compliant with dosing regimen. Lesli segura sleeps 6 hours per night. Nutrition: inappropriate [...] no side effects- her vit d taking 1999 vit d bid - copugh bronchitis gone- [...] ,supplemental vitamins and low salt diet. The wv dical issues the patient is following up [...] for Flu like symptoms: Son diagnosed with [id number] Diagnosis: BRONCHITIS, NOT SPECIFIED ACUTE OR CHRONIC [...] he wants her to do exercise at [employer] and has her set up for activiity [...] : (180's). 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
--- OUTSIDE RECORDS SUMMARY | 2018-09-20 12:11 | XMS RPT_ITS | Continuity of Care Document ---
:1950 Author Organization [facility] Address [address] [place] [address] Phone Care Team Providers Name Role Phone [...] Refills: 3 Ordered:31-Dec-2017 Addison DOUGHERTY Dafne Lewalcon DOUGHERYT Dafne Mota Start : 31-Dec-2017 Active GlyBURIDE 5 MG Oral Tablet 2 (two) Tablet BID for 0 days Quantity: 120 {Tablet} Refills: 6 Ordered:31-Dec-2017 Addison DOUGHERTY Dafne Monterroso LADONNA Dafne [...] 0 days Quantity: 30 {Tablet} Refills: 0 Ordered:16-Mar-2018 Addison DOUGHERTY Dafne Lewalcon DOUGHERTY Dafne Mota Start : 16-Mar-2018 Active Levothyroxine Sodium 150 MCG Oral Tablet 1 (one) Tablet daily for 90 days Quantity: 90 {QS} Refills: 3 Ordered:16-Mar-2018 Dafne Jaime CNP, CNP, Mary E Start : 16-Mar-2018 Active Metoprolol Succinate ER 100 MG Oral [...] Quantity: 180 {Tablet} Refills: 3 Ordered:24-Mar-2017 Tgezraa BENCH SCIENTIST, [facility], Radha Start : 24-Mar-2017 End : 24-Mar-2017 Inactive Atenolol 50 MG Oral Tablet 1 (one) Tablet one in am, 2 in pm for 90 days Quantity: 120 {Tablet} Refills: 3 Ordered:24-Mar-2017 Tgezraa BENCH SCIENTIST, Dafne [facility], Radha Start : 24-Mar-2017 End : 24-Mar-2017 [...] Quantity: 20 {Capsule} Refills: 0 Ordered:15-Jun-2014 Curtisa BENCH SCIENTIST, Dafne Monterroso BENCH SCIENTIST, Radha Start : 15-Jun-2014 End : 25-Jun-2014 [...] Inactive Comments:05/23/07 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, 10MG (Oral Tablet) 1 [...] : 09-Dec-2017 End : 19-Jan-2018 Inactive [place] 31G X 6 MM Miscellaneous uad Misc [...] Quantity: 20 {Tablet} Refills: 0 Ordered:19-Aug-2015 Tggreg BENCH SCIENTIST, Dafne Kriss DOUGHERTY, Radha Start : 19-Aug-2015 [...] qd for 0 days Refills: 0 Ordered:23-Oct-2008 Yoslein Larsen LPN End : 23-Oct-2008 Inactive TRICOR, 145MG (Oral Tablet) 1 Tablet daily for 0 days Quantity: 90 {Tablet} Refills: 3 Ordered:03-Feb-2012 Alisha Hanks LPN Start : 24-Aug-2011 End : 03-Feb-2012 Inactive VITAMIN D, 22631LRPI (Oral Capsule) 1 (one) Capsule q week [...] Alex DO End : 12-Mar-2006 Discontinued Ergocalciferol 04947 UNIT Oral Capsule 1 (one) Capsule Capsule [...] Quantity: 3 {Inhaler} Refills: 2 Ordered:17-Feb-2016 Slarb COMMUNICATIONS PROJECT MANAGER, Gloria Start : 11-Feb-2016 End : 17-Feb-2016 Discontinued Flovent HFA 110 MCG/ACT Inhalation Aerosol 2 Puff bid for 90 days Quantity: 30 {QS} Refills: 3 Ordered:17-Feb-2016 Slarb COMMUNICATIONS PROJECT MANAGER, Gloria Start : 11-Feb-2016 End : 17-Feb-2016 Discontinued GUAIATUSSIN AC, 100-10MG/5ML (Oral Syrup) 1 Syrup TID prn for 0 days Quantity: 8 {Ounce(s)} Refills: 0 Ordered:18-Mar-2012 Ivanna Maddox Start : 18-Mar-2012 End : 18-Mar-2012 Discontinued Comments:eight ounces Ipratropium-Albuterol 0.5-2.5 (3) MG/3ML Inhalation Solution 1 (one) Solution Solution qid PRN for 0 days Quantity: 90 {QS} Refills: 3 Ordered:13-May-2016 Slarb COMMUNICATIONS PROJECT MANAGER, Gloria Start : 13-Feb-2016 End : 13-May-2016 [...] Quantity: 30 {Tablet} Refills: 6 Ordered:31-Dec-2017 Addison BENCH SCIENTIST, Dafne Monterroso CNP, Dafne Mota Start : [...] Lead Electrocardiogram Result: Comments: See Note; NOTES: [facility] Cardiovascular Services [address] [place] [address] 12 Lead EKG 01/22/18 2044 MR#: [id number] Acct: [id number] Name: IMANI VINSON Lottie p #: [id number] : 1950 67 From: Ramiro Moreno MD [...] Confirmed by Elia UNGER MD, RAMIRO ([id number]), rewrite editor RUBI VILLATORO ([id number]) on 01/25/2018 3:09:19 PM Referred By: Confirmed By:RAMIRO MORENO MD 01/25/18 1509 Date Ramiro Moreno MD CC: Dafne Jaime FUEL RETROFITTING TECHNICIAN; Tyson Hernandez DO Signed 24-Jan-2018 Emergency Department Summary Result: Comments: See Note; NOTES: [facility] Medical Records Department [address] [place] [address] Emergency Department Summary 01/22/18 2318 MR#: [id number] Acct: [id number] Name: IMANI VINSON Rep #: [id number] : 1950 67 From: Tysno Hernandez DO PCP: Dafne Jaime NP Status: [...] 2. Hypertension This note was generated with [employer] dictation software. It may contain incorrect words, [...] your Primary Care Provider. Call [facility] ([phone]) or report to the closest Emergency Room. Call 911 if necessary. 01/24/18 0026 <Electronically signed by Tyson Hernandez DO> Date _ Tyson Hernandez DO Cosigner Signature (If Indicated): Date CC: Dafne Jaime FUEL RETROFITTING TECHNICIAN 30-Dec-2017 12 Lead Electrocardiogram Result: Comments: See Note; NOTES: [facility] Cardiovascular Services [address] [place] [address] 12 Lead EKG 12/25/17 1326 MR#: [id number] Acct: [id number] Name: IMANI VINSON Lottie p #: [id number] : 1950 67 From: Ramiro Mroeno MD Attending Dr: Status: DEP ER Ordering [...] Confirme d by RAMIRO MORENO MD ([id number]), rewrite editor RUBI VILLATORO ([id number]) on 12/30/2017 3:06:27 PM Referred By: Yoselin Oconnell Confirmed By:RAMIRO MORENO MD 12/30/17 1506 Date _ Ramiro Moreno MD CC: Dafne Jaime NP; Ivanna Puri MD Signed 25-Dec-2017 Emergency Department Summary Result: Comments: See Note; NOTES: [facility] Medical Records Department [address] [place] [address] Emergency Department Summary 12/25/17 1538 MR#: [id number] Acct: [id number] Name: IMANI VINSON Rep #: [id number] : 1950 67 From: Ivanna Puri MD [...] Cephalgia, improved This note was generated with [employer] dictation software. It may contain inco rrect [...] Primary Ca re Provider. Call [facility] ([phone]) or report to the closest Emergency Room. Call 911 if necessary. 12/25/17 1636 <Electronically signed by Ivanna Puri MD> Date Ivanna Puri MD Cosigner Signature (If Indicated): Date CC: Dafne Jaime NP 25-Dec-2017 Discharge Instruction Result: Comments: See Note; NOTES: [facility] Medical Records Department [address] [place] [address] Discharge Instruction 12/25/17 1542 MR#: [id number] Acct: [id number] Name: IMANI VINSON Rep #: [id number] : 1950 67 From: Ivanna Puri MD [...] your Primary Care Provider. Call [facility] ([phone]) or report to the closest Emergency Room. Call 911 if necessary. 12/25/17 1543 <Electronically signed by Ivanna Puri MD> D ate Ivanna Puri MD Cosigner Signature (If Indicated): Date CC: Dafne Jaime NP 25-Dec-2017 Chest 1 View (Portable) Result: Comments: See Note; NOTES: [facility] Imaging Services [address] [place] [address] Chest 1 View (Portable) MR#: [id number] Acct: [id number] Name: IMANI VINSON Rep #: [id number] : 1950 F 67 From: Walter Corbin MD PCP: Dafne Jaime NP Status: REG ER Study: Chest 1 View (Portable) Date of Exam: 12/25/17 Exam# [id number] Ordering Dr: Ivanna Puri MD STUDY: X-RAY [...] at 14:22 EDT Tel , Service support [phone], RAD/Chest 1 View (Portable) CC: Dafne Jaime NP; Ivanna Puri MD [employer]: Signed 23-Dec-2017 Abdomen/Pelvis without Cont Result: Comments: See Note; NOTES: [facility] Imaging Services [address] [place] [address] Abdomen/Pelvis without Cont MR#: [id number] Acct: [id number] Name: IMANI VINSON Rep #: [id number] : 1950 F 67 From: Leobardo Mckenzie MD PCP: Dafne Jaime NP Status: REG CLI Study: Abdomen/Pelvis without Cont Date of Exam: 12/23/17 Exam# [id number] Ordering Dr: Yoselin Oconnell FUEL RETROFITTING TECHNICIAN-C STUDY: CT ABDOMEN AND PELVIS WITHOUT CONTRAST [...] Leobardo Mckenzie MD at 12:50 EDT Tel [phone], Service support , Fax CC: Dafne Jaime NP; MARCO ANTONIO Oconnell [employer]: Signed 12-Feb-2017 Chest without Contrast Result: Comments: See Note; NOTES: [facility] Imaging Services [address] [place] [address] Chest without Contrast MR#: [id number] Acct: [id number] Name: IMANI VINSON Naveen Rep #: [id number] : 1950 F 66 From: Ace Olivia DO PCP: Dafne Jaime Status: REG CLI Study: Chest without Contrast Date of Exam: 02/12/17 Exam# [id number] Ordering Dr: Rogelio Granado MD STUDY: CT [...] Ace Olivia DO at 11:21 EDT Tel [phone], Close support , CC: Dafne Jaime; Rogelio Granado MD [employer]: Signed 19-Jan-2017 Chest PA and Lateral Result: Comments: See Note; NOTES: [facility] Imaging Services [address] [place] [address] Verdana 4d Chest PA and Lateral MR#: [id number] Acct: [id number] Name: IMANI VINSON Naveen Rep #: [id number] : 1950 F 66 From: Leobardo Mckenzie MD PCP: Dafne Jaime Status: REG CLI Study: Chest PA and Lateral Date of Exam: 01/19/17 Exam# [id number] Ordering Dr: Rogelio Granado MD ST UDY: [...] Leobardo Mckenzie MD at 12:43 EDT Tel [phone], Service support [phone], CC: Dafne Jaime; Rogelio Granado MD [employer]: Signed 17-Oct-2015 Spirometry (45878) Result: 20-Aug-2015 Chest PA and Lateral Result: Comments: See Note; NOTES: [facility] Imaging Services [address] [place] [address] Verdana 4d Chest PA and Lateral MR#: [id number] Acct: [id number] Name: IMANI FRASER Rep #: [id number] : 1950 F 64 From: Leobardo Mckenzie MD PCP: Jackie Christina DO Status: REG CLI Study: Chest PA and Lateral Date of Exam: 08/20/15 Exam# [id number] Ordering Dr: Dafne Jaime STUDY: X-RAY CHEST [...] Leobardo Mckenzie MD at 13:08 EST Tel [phone], Service support [phone] , RAD/Chest PA and Lateral IMPRESSION: Hyperinflation. No acute abnormality is seen. Electronically Signed: Leobardo Mckenzie MD at 13:08 EST Tel [phone], Service support [phone], CC: Dafne Jaime; Jackie Christina DO [employer]: Signed 06-Jun-2015 Chest PA and Lateral Result: Comments: See Note; NOTES: [facility] Imaging Services [address] [place] [address] Verdana 4d Chest PA and Lateral MR#: [id number] Acct: [id number] Name: IMANI FRASER Rep #: [id number] : 1950 F 64 From: Leobardo Mckenzie MD PCP: Jackie Christina DO Status: REG CLI Study: Chest PA and Lateral Date of Exam: 06/06/15 Exam# [id number] Ordering Dr: Giovani Hutchins STUDY: X-RAY CHEST [...] Leobardo Mckenzie MD at 14:52 EST Tel [phone], Service support [phone], 0056 RAD/Chest PA and Lateral IMPRESSION: Hyp erinflation. Electronically Signed: Leobardo Mckenzie MD at 14:52 EST Tel [phone], Service support [phone], CC: Jackie Hutchins [employer]: Signed 06-Aug-2014 Chest PA and Lateral Result: Comments: See Note; NOTES: [facility] Imaging Services [address] [place] [address] Radiology Report MR#: [id number] Acct: [id number] Name: IMANI VINSON Rep #: [id number] : 1950 F 63 From: Leobardo Mckenzie MD PCP: Jackie Christina DO Status: REG CLI Study: Chest PA and Lateral Date of Exam: 08/06/14 Exam# [id number] Ordering Dr: Dafne Jaime STUDY: X-RAY CHEST [...] Leobardo Mckenzie MD at 13:03 EST Tel [phone], Service support [phone], CC: Dafne Jaime; Jackie Christina DO [employer]: Signed 05-May-2013 Bilat Scrn Digital & CAD Result: Comments: See Note; NOTES: [facility] Imaging Services [address] [place] [address] Breast Imaging Report MR#: [id number] Acct: [id number] Name: IMANI VINSON Rep #: [id number] : 1950 F 62 From: Leobardo Mckenzie MD PCP: Status: PRE CLI Exam# [id number] Ordering Dr: Jackie Christina DO MAMMOGRAPHY - [...] 05, 2013 at 2:48:1 1 PM EST [phone] Electronically Signed GP/GP If you are the referring physician and would like to consult with the radiologist who provided this interpretation, please contact Leobardo thompson M.D. at [phone]. If this radiologist is unavailable, you will be directed to another radiologist to assist. If you are a patient with a question regarding this report, please contact you r referring physician directly. Professional Interpretation Provided By: [employer], Phone , These documents contain legally protected [...] of these documents. CC: Jackie Christina DO [employer]: Signed Immunization Name Dates Details Pneumococcal (2 [...] 0.00 cm Results Date Description Value Details 5-Ccw-560175:51 CALCIFEDIOL (01028) Comments: PATIENT NOT FASTINGPERFORMED BY: [facility] Hhmeif9482 [facility] [id number] Vitamin D, 25-Hydroxy 35.3 ng/mL (Normal) Range: 30.0-100.0 Comments: Vitamin D deficiency has been defined by the [place] of[place]icine and an Endocrine Society practice guideline as alevel of serum 25-OH vitamin D less than 20 ng/mL (1,2).The Endocrine Society went on to further define vitamin Dinsufficiency as a level between 21 and 29 ng/mL (2).1. IOM ([place] of Medicine). 2010. Dietary reference intakes for calcium and D. [place]: The National Academies Press.2. Eleni MF, Lorne MORTON, Dayron WALTON, et al. Evaluation, treatment, and prevention of vitamin D deficiency: an Endocrine Society clinical practice guideline. JCEM. 2010; 96(7):1911-30. 6-Yti-335348:43 METANEPHRINES - URINE (36972) Comments: PATIENT NOT FASTINGPERFORMED BY: [facility] Krvgqyxtpx4353 [facility] [id number] Metanephrine, U,24hr 120 {ug/24_hr} (Normal) Range: 45-290 Comments: (Hypertensive) >17 years 11 months: 35 - 460 Metanephrine, Ur 60 ug/L (Normal) Normetanephr.,U,24h 404 {ug/24_hr} (Normal) Range: 82-500 Comments: (Hypertensive) >17 years 11 months: 110 - 1050 Normetanephrine, Ur 202 ug/L (Normal) 8-Gci-241474:43 CATECHOLAMINES TOTAL, URINE Comments: PATIENT NOT FASTINGPERFORMED BY: [facility] [address] [id number] Information: [id number] (58663) Dopamine, Ur, 24hr 356 {ug/24_hr} (Normal) Range: 0-510 Dopamine, Urine 178 ug/L (Normal) Norepinephrine,U,24h 78 {ug/24_hr} (Normal) Range: 0-135 Norepinephrine, Ur 39 ug/L (Normal) Epinephrine, U, 24hr 4 {ug/24_hr} (Normal) Range: 0-20 Epinephrine, Urine 2 ug/L (Normal) 5-Vmd-480491:43 URINE VMA (58120) Comments: PATIENT NOT FASTINGPERFORMED BY: MICHAEL [facility]1447 [facility] [id number] VMA, Urine, 24hr 5.0 {mg/24_hr} (Normal) Range: 0.0-7.5 Comments: This test was developed and its performance characteristicsdetermined by [employer]. It has not been cleared or approvedby the Food and Drug Administration. VMA, Urine 2.5 mg/L (Normal) 74-Qre-741761:44 URINE MEHREEN CULTURE-IDENTIFICATN Comments: PERFORMED BY: [facility]6370 [facility] [id number] Information: SRC: ([id number]) Result 1 MUG (Normal) Comments: Mixed urogenital flora1,000 Colonies/mL Urine Culture,Comprehensive Final report (Normal) 80-Jlq-917863:41 Urinalysis, Office (08030) UA - LEUKOCYTE ESTERASE Moderate (Normal) UA - NITRITE Negative (Normal) URINE UROBILINGN SUNNY TIMED Normal mg/dL (Normal) UA - PROTEIN Negative mg/dL (Normal) UA - PH 6.0 (Normal) UA - BLOOD Hemolyzed Trace (Normal) UA - SPECIFIC GRAVITY 1.020 (Normal) UA - KETONES Negative mg/dL (Normal) UA - BILIRUBIN Negative (Normal) UA - GLUCOSE Negative (Normal) 87-Miw-350955:10 CBC & PLATELETS (AUTO) Comments: PATIENT NOT FASTINGPERFORMED BY: [facility]6370 [facility] [id number] (84524) Platelets 270 {x10E3/uL} (Normal) Range: 150-379 RDW 13.8 % (Normal) Range: 12.3-15.4 MCHC 33.7 g/dL (Normal) Range: 31.5-35.7 MCH 29.7 pg (Normal) Range: 26.6-33.0 MCV 88 fL (Normal) Range: 79-97 Hematocrit 40.1 % (Normal) Range: 34.0-46.6 Hemoglobin 13.5 g/dL (Normal) Range: 11.1-15.9 RBC 4.54 {x10E6/uL} (Normal) Range: 3.77-5.28 WBC 6.8 {x10E3/uL} (Normal) Range: 3.4-10.8 67-Ryv-751970:10 RENAL FUNCTION PANEL (69531) Comments: PATIENT NOT FASTINGPERFORMED BY: [facility]6370 [facility] [id number] Albumin 3.8 g/dL (Normal) Range: 3.6-4.8 Phosphorus [...] 8-27 Glucose 133 mg/dL (Abnormal) Range: 65-99 08-Qql-371284:10 PARATHORMONE (73416) Comments: PATIENT NOT FASTINGPERFORMED BY: [facility]CoRobert [facility] HospitalLblscq7601 [facility] [id number] PTH, Intact 32 pg/mL (Normal) Range: 15-65 32-Mqf-069101:00 Urinalysis, Complete Comments: How was Urine Obtained? 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, [address] MUCUS, URINE 0 SEEN {/hpf} (Normal) BACTERIA [...] Yellow (Normal) :04 CBC W/Diff, Automated Comments: [facility] [address] [place], [place], [address] PLT EST ADEQUATE (Normal) SMEAR COMMENT SCANNED [...] 4.2-5.4 WBC 9.7 K/mm3 (Normal) Range: 4.4-11.0 19-Krj-478414:04 Comprehensive Metabolic Profil Comments: [facility] [address] [place], [place], [phone] GAP 8 (Normal) Range: 5-15 CO2 26.0 [...] A.D.A. criteria.Please note revised GLUCOSE reference range pqnlsaeqe71/02/2018. 02-Umr-126238:04 Lipase Comments: [facility] [address] [place], [phone] LIPASE 346 U/L (Normal) Range: 73-393 88-Eik-229363:04 Troponin-I Comments: [facility] [address] [place], [address] TROPONIN-I < 0.015 ng/mL (Normal) Comments: TROPONIN-I EXPECTED VALUES <0.045 Negative 0.045 - 0.590 Consistent with Cardiac Damage > OR = 0.600 Critical Value Not every elevated troponin is indicative of DE. T hesevalues should be used with clinical judgement in examiningthe patient's clinical picture for diagnosis. To establisha diagnosis of DE versus myocardial injury, there must be ademonstrated rise and/ or fall in the troponin values, inaddition to ischemic symptoms, EKG changes, new regionalwall motion abnormality, and/or angiographical evidence. PLEASE NOTE: REFERENCE RANGES EDITED 11/08/1712-Jan-201829-Rxj-792464:27 TSH (THYROID STIMULATING Comments: January 12; PATIENT WAS FASTINGPERFORMED BY: [facility] LabCoiPayment70 [facility] [id number] HORMONE) (09981) TSH 1.920 {uIU/mL} (Normal) Range: 0.450-4.500 52-Qyz-703510:27 CBC & PLATELETS (AUTO) Comments: after January 12; PATIENT WAS FASTINGPERFORMED BY: [facility] Holmqc7917 [facility] [id number] Information: [id number] (57920) Platelets 288 {x10E3/uL} (Normal) Range: 150-379 RDW 13.8 % (Normal) Range: 12.3-15.4 MCHC 34.8 g/dL (Normal) Range: 31.5-35.7 MCH 30.8 pg (Normal) Range: 26.6-33.0 MCV 88 fL (Normal) Range: 79-97 Hematocrit 40.2 % (Normal) Range: 34.0-46.6 Hemoglobin 14.0 g/dL (Normal) Range: 11.1-15.9 RBC 4.55 {x10E6/uL} (Normal) Range: 3.77-5.28 WBC 6.2 {x10E3/uL} (Normal) Range: 3.4-10.8 18-Xno-692776:27 LIPID PANEL (74770) Comments: after January 12; PATIENT WAS FASTINGPERFORMED BY: [facility]CoRobert [facility] Johnson University HospitalEglzoi1720 [facility] [id number] LDL/HDL Ratio 2.1 {ratio} (Normal) Range: 0.0-3.2 Comments: LDL/HDL Ratio Men Women 1/2 Avg.Risk 1.0 1.5 Av g.Risk 3.6 3.2 2X Avg.Risk 6.2 5.0 3X Avg.Risk 8.0 6.1 LDL Cholesterol Calc 88 mg/dL (Normal) Range: 0-99 VLDL Cholesterol Edgardo 46 mg/dL (Abnormal) Range: 5-40 HDL Cholesterol 42 mg/dL (Normal) Triglycerides 230 mg/dL (Abnormal) Range: 0-149 Cholesterol, Total 176 mg/dL (Normal) Range: 100-199 21-Kfq-466977:27 HGB A1C (56729) Comments: do after January 12; PATIENT WAS FASTINGPERFORMED BY: [facility] Nibals2362 [facility] [id number] Hemoglobin A1c 7.6 % (Abnormal) Range: 4.8-5.6 Comments: . Pre-diabetes: 5.7 - 6.4 Diabetes: >6.4 Glycemic control for adults with diabetes: <7.0 11-Lpg-836031:30 Basic Metabolic Profile (BMP) Comments: [facility] [address] [place], [address] GAP 8 (Normal) Range: 5-15 CO2 25.0 [...] A.D.A. criteria.Please note revised GLUCOSE reference range ombrtblas15/02/2018. 80-Qte-399736:30 Carboxyhemoglobin Frac (CO) Comments: [facility] [address] [place], [place], [address] COHb 2.1 % (Abnormal) Range: 0.0-1.5 Comments: * NON-SMOKER RANGE 1.6 - 5.0% * LIGHT SMOKER RANGE 5.1 - 9.0% * HEAVY SMOKER RANGE 97-Zxv-616259:30 CBC W/Diff, Automated Comments: [facility] [address] [place], [place], [address] Absolute Lymph 0.66 {X10_3/ul} (Abnormal) Range: 0.83-4.51 [...] 4.2-5.4 WBC 12.9 K/mm3 (Abnormal) Range: 4.4-11.0 83-Uoz-342446:30 Lipase Comments: [facility] [address] [place], [place], [address] LIPASE 126 U/L (Normal) Range: 73-393 06-Thv-962839:30 Liver Profile Comments: [address] [place], [place], [id number] D BILI 0.13 mg/dL (Normal) Range: 0.00-0.30 T BILI 0.50 mg/dL (Normal) Range: 0.20-1.00 ALT 32 U/L (Normal) Range: 13-56 ALK P 154 U/L (Abnormal) Range: 45-117 AST 25 U/L (Normal) Range: 15-37 GLOB 4.2 g/dL (Normal) Range: 2.2-4.2 ALB 3.5 g/dL (Normal) Range: 3.2-5.0 T PROT 7.7 g/dL (Normal) Range: 6.4-8.2 46-Pof-311593:30 Urinalysis, Complete Comments: Order Date: 12/25/17How was Urine Obtained? CLEAN [facility] [address] [place], [place], [phone] MUCUS, URINE 0 SEEN {/hpf} (Normal) BACTERIA [...] (Abnormal) CLARITY Clear (Normal) COLOR Yellow (Normal) 62-Idp-307355:17 Urinalysis, Office (66639) UA - LEUKOCYTE ESTERASE Negative (Normal) UA - NITRITE Negative (Normal) URINE UROBILINGN SUNNY TIMED Normal mg/dL (Normal) UA - PROTEIN Negative mg/dL (Normal) UA - PH 5.0 (Normal) Comments: 5.5 UA - BLOOD Hemolyzed Trace (Normal) UA - SPECIFIC GRAVITY 1.005 (Normal) UA - KETONES Negative mg/dL (Normal) UA - BILIRUBIN Negative (Normal) UA - GLUCOSE 500 (Abnormal) 80-Fcf-165773:15 URINE MEHREEN CULTURE-SUNNY COL Comments: PATIENT NOT FASTINGPERFORMED BY: [facility] [id number] Information: SRC:UC COUNT (84158) Result 1 MUG (Normal) Comments: Mixed urogenital flora10,000-25,000 colony forming units per mL Urine Final report (Normal) Culture,Comprehensive 61-Xle-669382:48 URINE MEHREEN CULTURE-IDENTIFICATN Comments: PATIENT NOT FASTINGPERFORMED BY: ShepHertzrp [facility]Nov[facility] [id number] Information: SRC: ([id number]) Antimicrobial MIHEAD (Normal) Comments: S = Susceptible; [...] mL (Abnormal) Urine Final report Culture,Comprehensive (Abnormal) 07-Yrn-520573:24 Urinalysis, Office (62657) UA - LEUKOCYTE ESTERASE Small (Normal) UA - NITRITE Negative (Normal) URINE UROBILINGN SUNNY TIMED Normal mg/dL (Normal) UA - PROTEIN Trace mg/dL (Normal) UA - PH 6 (Abnormal) UA - BLOOD Hemolyzed Large (Normal) UA - SPECIFIC GRAVITY 1.015 (Normal) UA - KETONES Negative mg/dL (Normal) UA - BILIRUBIN Negative (Normal) UA - GLUCOSE 500 (Abnormal) 71-Edu-001376:33 Blood Glucose , Office (07991) Blood Glucose , Office 159 (Normal) 52-Qvq-195096:33 HgA1C , Office (18994) HgA1C , Office 7.0 % (Normal) Range: 4.6 - 7.1 31-Yat-852326:10 CBC, Platelets & Auto Diff Comments: PATIENT WAS FASTINGPERFORMED BY: LabCoRobert [facility] Johnson University HospitalDlmyog0547 [facility] [id number] (58931) Immature Grans (Abs) 0.0 {x10E3/uL} (Normal) Range: [...] {x10E3/uL} (Normal) Range: 3.4-10.8 :10 HGB A1C (58205) Comments: PATIENT WAS FASTINGPERFORMED BY: [employer]70 [facility] [id number] Hemoglobin A1c 7.4 % (Abnormal) Range: 4.8-5.6 Comments: . Pre-diabetes: 5.7 - 6.4 Diabetes: >6.4 Glycemic control for adults with diabetes: <7.0 :10 LIPID PANEL (96152) Comments: PATIENT WAS FASTINGPERFORMED BY: [employer]70 [facility] [id number] LDL/HDL Ratio 2.4 {ratio} (Normal) Range: 0.0-3.2 [...] Panel, Comprehensive Comments: PATIENT WAS FASTINGPERFORMED BY: [facility] Mowskw4308 [facility] [id number] (71029) ALT (SGPT) 15 [iU]/L (Normal) Range: 0-32 [...] 8-27 Glucose 141 mg/dL (Abnormal) Range: 65-99 24-Npr-065779:10 MICROALBUMIN: CREATININE RATIO Comments: PATIENT WAS FASTINGPERFORMED BY: [place] [id number] ([id number]) AND ([id number]) Alb/Creat Ratio <3.8 {mg/g_creat} (Normal) Range: 0.0-30.0 Albumin, Urine <3.0 ug/mL (Normal) Creatinine, Urine 78.1 mg/dL (Normal) [id number]-Jho-428102:10 TSH ([id number]) Comments: PATIENT WAS FASTINGPERFORMED BY: [facility] [id number] [facility] [id number] TSH 2.160 {uIU/mL} (Normal) Range: 0.450-4.500 39-Nib-678200:10 URINALYSIS W/O MICRO (77210) Comments: PATIENT WAS FASTINGPERFORMED BY: ShepHertz Wdmvum3072 [facility] [id number] Microscopic Examination MICNIP (Normal) Comments: Microscopic not indicated and not performed. Nitrite, Urine Negative (Normal) Urobilinogen,Semi-Qn 0.2 mg/dL (Normal) Range: 0.2-1.0 Bilirubin Negative (Normal) Occult Blood Negative (Normal) Ketones Negative (Normal) Glucose 3+ (Abnormal) Protein Negative (Normal) WBC Esterase Negative (Normal) Appearance Clear (Normal) Urine-Color Yellow (Normal) pH 5.5 (Normal) Range: 5.0-7.5 Specific [place] >=1.030 (Abnormal) Range: 1.005-1.030 14-Rdy-525132:17 HGB A1C (98159) Comments: today; PATIENT NOT FASTINGPERFORMED BY: EverythingMe[address] [id number] Hemoglobin A1c 7.4 % (Abnormal) Range: 4.8-5.6 Comments: . Pre-diabetes: 5.7 - 6.4 Diabetes: >6.4 Glycemic control for adults with diabetes: <7.0 09-Cip-015525:14 TSH (THYROID STIMULATING Comments: PATIENT WAS FASTINGPERFORMED BY: EverythingMe[address] [id number] HORMONE) (25819) TSH 2.750 {uIU/mL} (Normal) Range: 0.450-4.500 26-Aoo-700089:14 Lipid Panel (84756) Comments: PATIENT WAS FASTINGPERFORMED BY: EverythingMe[address] [id number] LDL/HDL Ratio 2.0 {ratio_units} (Normal) Range: 0.0-3.2 Comments: LDL/HDL Ratio Men Women 1/2 Avg.Risk 1.0 1.5 Av g.Risk 3.6 3.2 2X Avg.Risk 6.2 5.0 3X Avg.Risk 8.0 6.1 LDL Cholesterol Calc 96 mg/dL (Normal) Range: 0-99 VLDL Cholesterol Edgardo 22 mg/dL (Normal) Range: 5-40 HDL Cholesterol 49 mg/dL (Normal) Triglycerides 110 mg/dL (Normal) Range: 0-149 Cholesterol, Total 167 mg/dL (Normal) Range: 100-199 94-Mff-278428:14 CALCIFEDIOL (71331) Comments: PATIENT WAS FASTINGPERFORMED BY: [address]ublin [place] [id number] Vitamin D, 25-Hydroxy 30.7 ng/mL (Normal) Range: 30.0-100.0 Comments: Vitamin D deficiency has been defined by the [place] of[place]icine and an Endocrine Society practice guideline as alevel of serum 25-OH vitamin D less than 20 ng/mL (1,2).The Endocrine Society went on to further define vitamin Dinsufficiency as a level between 21 and 29 ng/mL (2).1. IOM ([place] of Medicine). 2010. Dietary reference intakes for calcium and D. [place]: The National Academies Press.2. Eleni MF, Lorne MORTON, Dayron WALTON, et al. Evaluation, treatment, and prevention of vitamin D deficiency: an Endocrine Society clinical practice guideline. JCEM. 2010; 96(7):1911-30. 77-Gpz-161771:14 Metabolic Panel, Comprehensive Comments: PATIENT WAS FASTINGPERFORMED BY: LabYoujiaRobert Wood Johnson University HospitalDtgpsl3333 [facility] [id number] (07343) ALT (SGPT) 11 [iU]/L (Normal) Range: 0-32 [...] Glucose, Serum 150 mg/dL (Abnormal) Range: 65-99 08-Ujx-499423:14 HGB A1C (65598) Comments: PATIENT WAS FASTINGPERFORMED BY: EverythingMe[address] [id number] Hemoglobin A1c 6.3 % (Abnormal) Range: 4.8-5.6 Comments: . Pre-diabetes: 5.7 - 6.4 Diabetes: >6.4 Glycemic control for adults with diabetes: <7.0; ADDENDA: OV 19-Jan-201712:28 Angiotensin Convert Enzyme Comments: [facility] (refer to report for specific site)refer to report for address and phone number [phone] 51 U/L (Normal) Range: 14-82 Comments: Performed at: [address] [id number] Director: Jarrell Collazo PhD, Phone: [phone]; ADDENDA: Dr Granado 64-Abn-252074:28 Erythrocyte Sed Rate Comments: [facility] [address] [place], [place], [address] SED RATE 6 mm/h (Normal) Range: 0-30 26-Vjn-875707:35 CBC, Platelets & Auto Diff Comments: PATIENT NOT FASTINGPERFORMED BY: [address] [id number] (84665) Immature Grans (Abs) 0.0 {x10E3/uL} (Normal) Range: [...] 3.77-5.28 WBC 6.5 {x10E3/uL} (Normal) Range: 3.4-10.8 16-Ncw-134239:35 HGB A1C (69389) Comments: PATIENT NOT FASTINGPERFORMED BY: ShepHertzRobert Wood Johnson University HospitalCqtupo3937 [facility] [id number] Hemoglobin A1c 6.7 % (Abnormal) Range: 4.8-5.6 Comments: . Pre-diabetes: 5.7 - 6.4 Diabetes: >6.4 Glycemic control for adults with diabetes: <7.0 59-Qga-387134:35 Metabolic Panel, Basic Comments: PATIENT NOT FASTINGPERFORMED BY: ShepHertzRobert Wood Johnson University HospitalLkcyng7093 [facility] [id number] (62906) Calcium, Serum 10.6 mg/dL (Abnormal) Range: 8.7-10.3 [...] Microscopic Examination Comments: PATIENT WAS FASTINGPERFORMED BY: [place] [id number] Bacteria Few (Normal) Mucus Threads Present (Normal) Cast Type Hyaline casts (Normal) Casts Present {/lpf} (Abnormal) Epithelial Cells (non renal) 0-10 {/hpf} (Normal) Range: 0 - 10 RBC 0-2 {/hpf} (Normal) Range: 0 - 2 WBC 0-5 {/hpf} (Normal) Range: 0 - 5 :29 URINALYSIS (99891) Comments: PATIENT WAS FASTINGPERFORMED BY: [employer] [id number] Microscopic Examination See below: (Normal) Comments: Microscopic was indicated and was performed. Nitrite, Urine Negative (Normal) Urobilinogen,Semi-Qn 0.2 mg/dL (Normal) Range: 0.2-1.0 Bilirubin Negative (Normal) Occult Blood Negative (Normal) Ketones Negative (Normal) Glucose Negative (Normal) Protein Trace (Normal) WBC Esterase 1+ (Abnormal) Appearance Clear (Normal) Urine-Color Yellow (Normal) pH 6.0 (Normal) Range: 5.0-7.5 Specific [place] 1.027 (Normal) Range: 1.005-1.030 :29 MICROALBUMIN: CREATININE RATIO Comments: PATIENT WAS FASTINGPERFORMED BY: [place] [id number] (35794) AND (58165) Microalb/Creat Ratio 11.0 {mg/g_creat} (Normal) Range: 0.0-30.0 Microalbumin, Urine 29.4 ug/mL (Normal) Creatinine, Urine 266.4 mg/dL (Normal) 81-Qpp-383905:29 CALCIFEDIOL (82409) Comments: PATIENT WAS FASTINGPERFORMED BY: EverythingMe Hrszfg0129 [facility] [id number] Vitamin D, 25-Hydroxy 29.5 ng/mL (Abnormal) Range: 30.0-100.0 Comments: Vitamin D deficiency has been defined by the [place] ofThe Jewish Hospitalcine and an Endocrine Society practice guideline as alevel of serum 25-OH vitamin D less than 20 ng/mL (1,2).The Endocrine Society went on to further define vitamin Dinsufficiency as a level between 21 and 29 ng/mL (2).1. IOM ([place] of Medicine). 2010. Dietary reference intakes for calcium and D. [place]: The National Academies Press.2. Eleni MF, Lorne MORTON, Dayron WALTON, et al. Evaluation, treatment, and prevention of vitamin D deficiency: an Endocrine Society clinical practice guideline. JCEM. 2010; 96(7):1911-30. 47-Nbg-760108:29 Lipid Panel (02570) Comments: PATIENT WAS FASTINGPERFORMED BY: Leadformance6370 [facility] [id number] LDL/HDL Ratio 1.9 {ratio_units} (Normal) Range: 0.0-3.2 [...] Panel, Comprehensive Comments: PATIENT WAS FASTINGPERFORMED BY: EverythingMe Sevcnt8784 [facility] [id number] (34310) ALT (SGPT) 14 [iU]/L (Normal) Range: 0-32 [...] Glucose, Serum 77 mg/dL (Normal) Range: 65-99 91-Plp-165649:29 CBC, Platelets & Auto Diff Comments: PATIENT WAS FASTINGPERFORMED BY: LabCoRobert Wood Johnson University HospitalQuowdv0942 [facility] [id number] (03727) Immature Grans (Abs) 0.0 {x10E3/uL} (Normal) Range: [...] 3.77-5.28 WBC 6.6 {x10E3/uL} (Normal) Range: 3.4-10.8 55-Arb-718509:29 TSH (27895) Comments: PATIENT WAS FASTINGPERFORMED BY: LabCoRobert Wood Johnson University HospitalYpgreq0691 [facility] [id number] TSH 2.240 {uIU/mL} (Normal) Range: 0.450-4.500 84-Nmf-730330:29 HGB A1C (90031) Comments: PATIENT WAS FASTINGPERFORMED BY: LabCoRobert Wood Johnson University HospitalAqfkyu8899 [facility] [id number] Hemoglobin A1c 6.7 % (Abnormal) Range: 4.8-5.6 Comments: . Pre-diabetes: 5.7 - 6.4 Diabetes: >6.4 Glycemic control for adults with diabetes: <7.0 57-Dyh-249791:23 HGB A1C (98593) Comments: PATIENT NOT FASTINGPERFORMED BY: Drybar[address] [id number] Hemoglobin A1c 6.4 % (Abnormal) Range: 4.8-5.6 Comments: . Pre-diabetes: 5.7 - 6.4 Diabetes: >6.4 Glycemic control for adults with diabetes: <7.0 :06 Blood Glucose , Office (13243) Blood Glucose , Office 84 (Normal) : Hemoglobin A1c 6.7 % (Abnormal) Comments: PATIENT NOT FASTINGPERFORMED BY: [address] [id number] Information: [id number] Range: 4.8-5.6 Comments: . Pre-diabetes: 5.7 - 6.4 Diabetes: >6.4 Glycemic control for adults with diabetes: <7.0 :13 HgA1C , Office (04528) HgA1C , Office 6.6 % (Normal) Range: 4.6 - 7.1 :07 Blood Glucose , Office (84010) Blood Glucose , Office 97 (Normal) :51 HgA1C , Office (23376) HgA1C , Office 6.9 % (Normal) Range: 4.6 - 7.1 :51 Blood Glucose , Office (68192) Blood Glucose , Office 129 (Normal) 91-Pgp-365945:35 Sputum Culture (05637) Comments: PATIENT NOT FASTINGPERFORMED BY: [address] [id number] Information: [id number] Result 1 RRF (Normal) Comments: Routine respiratory marilin Lower Respiratory Culture Final report (Normal) :10 Rapid Flu (44005 x 2) Comments: neg Influenza A Ag neg (Normal) 5-Rbg-642972:31 Vitamin D Hydroxy (10405) Comments: PATIENT WAS FASTINGPERFORMED BY: [address]Dublin [place] [id number] Vitamin D, 25-Hydroxy 34.0 ng/mL (Normal) Range: 30.0-100.0 Comments: Vitamin D deficiency has been defined by the [place] of[place]icine and an Endocrine Society practice guideline as alevel of serum 25-OH vitamin D less than 20 ng/mL (1,2).The Endocrine Society went on to further define vitamin Dinsufficiency as a level between 21 and 29 ng/mL (2).1. IOM ([place]). 2010. Dietary reference intakes for calcium and D. [place]: The National AcademPreceptis Medical Press.2. Eleni MF, Lorne MORTON, Dayron WALTON, et al. Evaluation, treatment, and prevention of vitamin D deficiency: an Endocrine Society clinical practice guideline. JCEM. 2010; 96(7):1911-30. 8-Ccz-242077:31 Amylase (36385) Comments: PATIENT WAS FASTINGPERFORMED BY: LabYoujia Enpjqg1033 [facility] [id number] Amylase, Serum 32 U/L (Normal) Range: 31-124 7-Exq-931520:31 Lipase (09391) Comments: PATIENT WAS FASTINGPERFORMED BY: LabCo Mrwszw7860 [facility] [id number] Lipase, Serum 47 U/L (Normal) Range: 0-59 4-Vaf-109739:31 LIPID PANEL (13727) Comments: PATIENT WAS FASTINGPERFORMED BY: LabCo Dcwphg4309 [facility] [id number] LDL/HDL Ratio 1.7 {ratio_units} (Normal) Range: 0.0-3.2 [...] 155 mg/dL (Normal) Range: 100-199 :31 TSH (58143) Comments: PATIENT WAS FASTINGPERFORMED BY: LabCoRobert Wood Johnson University HospitalTkbdsp3537 [facility] [id number] TSH 1.140 {uIU/mL} (Normal) Range: 0.450-4.500 8-Brk-259559:31 METABOLIC PANEL, Comments: PATIENT WAS FASTINGPERFORMED BY: LabCoRobert Wood Johnson University HospitalYfcbnx9585 [facility] [id number] Information: [id number] COMPREHENSIVE (34270) ALT (SGPT) 20 [iU]/L (Normal) Range: 0-32 [...] (Normal) Range: 65-99 :12 HgA1C , Office (84406) HgA1C , Office 6.4 % (Normal) Range: 4.6 - 7.1 :21 HgA1C , Office (93095) HgA1C , Office 6.8 % (Normal) Range: 4.6 - 7.1 :21 Blood Glucose , Office (90354) Blood Glucose , Office 122 (Normal) :33 CBC W/Diff, Automated Comments: Test performed at:[facility] [address] [place] [address] Absolute Lymph 1.21 {X10_3/ul} (Normal) Range: 0.83-4.51 [...] 4.2-5.4 WBC 6.0 K/mm3 (Normal) Range: 4.4-11.0 79-Jqg-361560:33 Comprehensive Metabolic Profil Comments: Test performed at:[facility] [address]ylc[address] [place] [address] GAP 8 (Normal) Range: 5-15 [...] Comments: Please note revised CREATININE reference range akzygzlxh86/22/2015. BUN 13 mg/dL (Normal) Range: 7-18 GLU 84 mg/dL (Normal) Range: 70-110 89-Mmo-481760:33 Lipid Profile Comments: Test performed at:[facility] [address] [place] [id number] ; non-emergent till apt VLDL 24 mg/dL [...] 200-240 mg/dL Borderline >240 mg/dL High Risk 55-Cps-034948:33 Microalb:Creat Ratio,Random UR Comments: Test performed at:[facility] [address] [place] [address] MALB:CREAT Test not performed {mg/g_CRE} (Normal) MICROALBUMIN,UR < 5.0 mg/L (Normal) UR CREAT 179.00 mg/dL (Normal) 39-Pux-388982:33 Thyroid Stim Hormone (TSH) Comments: Test performed at:[facility] [address] [place] [address] TSH 0.84 {uIU/mL} (Normal) Range: 0.358-3.74 52-Zwq-082218:33 Vitamin D,25 Hydroxy Comments: Test performed at:[facility] [address]og[address] [place] [address] Vitamin D 25-OH 23.5 ng/mL (Normal) Comments: Vitamin D 25(OH) Status Range Deficiency <20 ng/mL (50nmol/L) Insuffciency 20 - 30 ng/mL (50 - 75 nmol/L) Sufficiency 30 - 100 ng/mL (75 - 250 nmol/L) Toxicity >100 ng/mL (>250 nmol/L) 5-Orz-623162:34 HgA1C , Office (53723) HgA1C , Office 7.0 % (Normal) Range: 4.6 - 7.1 :00 CBC W/Diff, Automated Comments: Test performed at:[facility] [address] [place] [address] Absolute Lymph 2.03 {X10_3/ul} (Normal) Range: [...] 4.2-5.4 WBC 9.1 K/mm3 (Normal) Range: 4.4-11.0 1-Zbn-417042:00 CK-MB Quantitative and Index Comments: 'TROP' Serial specimen #1, #2, #3, or #4: 1'CKMB' Serial Specimen #1, #2 or #3? 1Test performed at:[facility] Iefgfwbypq2589 [facility] [place] [address] CPKMB 1.7 ng/mL (Normal) Range: 0.0-5.0 Comments: CK-MB and RI Interpretation MB Relative Index Non-AMI <or= 5 NA Indeterminate > 5 <or= 4 AMI > 5 > 4 CPK TOTAL 137 U/L (Normal) Range: 26-192 7-Okm-336821:00 Myoglobin, Serum Comments: Test performed at:[facility] Ekuuzsbrls8716 [facility] [place] [address] Myoglobin, Ser 149 ng/mL (Abnormal) Range: 25-58 Comments: Performed at: [facility] [id number] Director: Jonathan Majano PhD, Phone: [phone] 7-Gza-559404:00 Troponin-I Comments: 'TROP' Serial specimen #1, #2, #3, or #4: 1'CKMB' Serial Specimen #1, #2 or #3? 1Test performed at:[facility] Kefdcyqnjc8481 [facility] [place] [address] TROPONIN-I < 0.02 ng/mL (Normal) Comments: TROPONIN-I EXPECTED VALUES <0.05 NEGATIVE 0.06 - 0.59 AT RISK OF DE > OR = 0.60 SUGGEST DE 7-Afw-796581:46 Rapid Flu (35837 x 2) Influenza A Ag n (Normal) 99-Xoe-943788:30 Culture, Wound Comments: Test performed at:[facility] Eivmzpyosc7714 [facility]. [place], [place] [id number] CUW See Note (Normal) Comments: Gram StainGram [...] $ 1 S(NF) indicates non-formulary drug at [facility]. Approval by Infectious Disease Specialist required before non-formulary dr gerard may be ordered and/or dispensed. * CLSI guidelines does not recommend testing of cephalosporins. This interpretation is deduced from Beta- lactam/penicillin results. 17-Afl-475888:20 WCGLU 81 mg/dL (Normal) Range: 70-110 06-Qxx-828736:20 WCLIPID VLDL 34 mg/dL (Normal) Range: 5-40 [...] CHOL 178 mg/dL (Normal) Comments: <200 mg/dL Cewqubxpx211-735 mg/dL Borderline>240 mg/dL High Risk 1-Jvz-637038:50 MUM < 0.80 AU (Normal) Range: 0.00-0.79 Comments: Negative < 0.80Borderline 0.80 - 1.20Positive > 1.20Note: The presence of IgM specific antibody should beinterpreted in conjunction with the patient's clinicalhistory and exposure risk when an acute infection issuspected.Performed at: [facility] [address] [id number] Director: Rafita Cruz MD, Phone: [phone] at: [address] [id number] Director: Jj Caballero MD, Phone: [phone] 4-Zvd-268612:50 RUBEOG > 300.0 AU/mL (Normal) Comments: Negative <25.0Equivocal 25.0 - 29.9Positive >29.9Presence of antibodies to Rubeola is presumptive evidenceof immunity except when acute infection is suspected. 9-Zlj-757957:50 RUBG > 500.0 {IU/mL} (Normal) Comments: Antibody results Interpretation of Immune Status< 5 IU/ml Presumed Non-immune5 - < 10 IU/ml Equivocal> or = 10 IU/ml Presumed Immune 01-Nov-20139:26 MICROALBUMIN: CREATININE RATIO Comments: PATIENT WAS FASTINGPERFORMED BY: EverythingMe[address] [id number] (17944) AND (04609) Microalb/Creat Ratio 3.9 {mg/g_creat} (Normal) Range: 0.0-30.0 Creatinine, Urine 177.5 mg/dL (Normal) Range: 15.0-278.0 Microalbumin, Urine 7.0 ug/mL (Normal) Range: 0.0-17.0 :26 CBC WITH MANUAL DIFF Comments: PATIENT WAS FASTINGPERFORMED BY: [place] 6836670 [facility] [id number] Information: [id number] (03908) Immature Grans (Abs) 0.0 {x10E3/uL} (Normal) Range: [...] PANEL, COMPREHENSIVE Comments: PATIENT WAS FASTINGPERFORMED BY: [facility]Nov[facility] [id number] (13425) ALT (SGPT) 22 [iU]/L (Normal) Range: 0-32 [...] (Abnormal) Range: 65-99 :26 Vitamin D Hydroxy (78731) Comments: PATIENT WAS FASTINGPERFORMED BY: Leadformance6370 [address] [facility] [id number] Vitamin D, 25-Hydroxy 32.9 ng/mL (Normal) Range: 30.0-100.0 Comments: Vitamin D deficiency has been defined by the [place] of[place]icine and an Endocrine Society practice guideline as alevel of serum 25-OH vitamin D less than 20 ng/mL (1,2).The Endocrine Society went on to further define vitamin Dinsufficiency as a level between 21 and 29 ng/mL (2).1. IOM ([place] of Medicine). 2010. Dietary reference intakes for calcium and D. [place]: The National Academies Press.2. Eleni MF, Lorne MORTON, Dayron WALTON, et al. Evaluation, treatment, and prevention of vitamin D deficiency: an Endocrine Society clinical practice guideline. JCEM. 2010; 96(7):1911-30. :26 LIPID PANEL (08986) Comments: PATIENT WAS FASTINGPERFORMED BY: [facility] [id number] LDL/HDL Ratio 1.6 {ratio_units} (Normal) Range: 0.0-3.2 LDL Cholesterol Calc 74 mg/dL (Normal) Range: 0-99 HDL Cholesterol 46 mg/dL (Normal) Comments: According to ATP-III Guidelines, HDL-C >59 mg/dL is considered anegative risk factor for CHD. VLDL Cholesterol Edgardo 22 mg/dL (Normal) Range: 5-40 Triglycerides 112 mg/dL (Normal) Range: 0-149 Cholesterol, Total 142 mg/dL (Normal) Range: 100-199 :26 TSH (86309) Comments: PATIENT WAS FASTINGPERFORMED BY: [facility] SolutionsNov[facility] [id number] TSH 1.560 {uIU/mL} (Normal) Range: 0.450-4.500 7-Xfk-573215:02 HgA1C , Office (03219) HgA1C , Office 6.6 % (Normal) Range: 4.6 - 7.1 3-Gpl-329157:41 HgA1C , Office (78731) HgA1C , Office 6.4 % (Normal) Range: 4.6 - 7.1 98-Lyu-821733:30 Microscopic Examination Comments: PATIENT WAS FASTINGPERFORMED BY: AirWatchDosher [facility] Hospital [id number] Bacteria Few (Normal) Mucus Threads Present (Normal) Epithelial Cells (non renal) 0-10 {/hpf} (Normal) Range: 0 - 10 RBC 0-3 {/hpf} (Normal) Range: 0 - 3 WBC 0-5 {/hpf} (Normal) Range: 0 - 5 83-Mgh-111223:30 LIPID PANEL (30135) Comments: PATIENT WAS FASTINGPERFORMED BY: [facility] Xfkxuc3838 [place] [id number] LDL/HDL Ratio 2.3 {ratio_units} (Normal) Range: 0.0-3.2 LDL Cholesterol Calc 103 mg/dL (Abnormal) Range: 0-99 VLDL Cholesterol Edgardo 30 mg/dL (Normal) Range: 5-40 HDL Cholesterol 45 mg/dL (Normal) Comments: According to ATP-III Guidelines, HDL-C >59 mg/dL is considered anegative risk factor for CHD. Cholesterol, Total 178 mg/dL (Normal) Range: 100-199 Triglycerides 148 mg/dL (Normal) Range: 0-149 89-Hvo-907346:30 Vitamin D Hydroxy (06544) Comments: PATIENT WAS FASTINGPERFORMED BY: [facility] Lmxiti7582 [facility] [id number] Vitamin D, 25-Hydroxy 35.6 ng/mL (Normal) Range: 30.0-100.0 Comments: Vitamin D deficiency has been defined by the [place] of[place]icine and an Endocrine Society practice guideline as alevel of serum 25-OH vitamin D less than 20 ng/mL (1,2).The Endocrine Society went on to further define vitamin Dinsufficiency as a level between 21 and 29 ng/mL (2).1. IOM ([place] of [place]). 2010. Dietary reference intakes for calcium and D. [place]: The National Academies Press.2. Eleni MF, Lorne [place], Dayron WALTON, et al. Evaluation, treatment, and prevention of vitamin D deficiency: an Endocrine Society clinical practice guideline. JCEM. 2010; 96(7):1911-30. 15-Zut-850633:30 URINALYSIS, W/ MICRO (61767) Comments: PATIENT WAS FASTINGPERFORMED BY: [facility] Ortnrv4325 [address] [facility] [id number] Microscopic Examination See below: (Normal) Nitrite, Urine Negative (Normal) Bilirubin Negative (Normal) Urobilinogen,Semi-Qn 0.2 mg/dL (Normal) Range: 0.0-1.9 Occult Blood Negative (Normal) Ketones Negative (Normal) Glucose Negative (Normal) Protein Negative (Normal) WBC Esterase 1+ (Abnormal) Appearance Clear (Normal) Urine-Color Yellow (Normal) pH 5.5 (Normal) Range: 5.0-7.5 Specific [place] 1.017 (Normal) Range: 1.005-1.030 48-Gus-974412:30 CBC WITH MANUAL DIFF Comments: PATIENT WAS FASTINGPERFORMED BY: LabCoRobert Wood Johnson University HospitalInwian2354 [facility] [id number] Information: [id number] (11560) Immature Grans (Abs) 0.0 {x10E3/uL} (Normal) Range: [...] 3.77-5.28 WBC 6.2 {x10E3/uL} (Normal) Range: 3.4-10.8 48-Uyf-359121:30 METABOLIC PANEL, COMPREHENSIVE Comments: PATIENT WAS FASTINGPERFORMED BY: LabCoRobert Wood Johnson University HospitalRyojxt4807 [facility] [id number] (95416) ALT (SGPT) 23 [iU]/L (Normal) Range: 0-32 [...] Glucose, Serum 114 mg/dL (Abnormal) Range: 65-99 8-Ffi-396655:35 HgA1C , Office (06949) HgA1C , Office 6.6 % (Normal) Range: 4.6 - 7.1 73-Glw-951342:41 Thin prep Pap (78932) Comments: Source.............VaginalNo. of containers..01 CYTYC Thin Prep VialPATIENT NOT FASTINGPERFORMED BY: [facility] Mwakizyvds[address] [place] [facility] [place]Win[place] [id number] Information: [id number] Pathologist provided ICD9: SPRCS (Normal) Comments: 627.3The [...] of hysterectomy.V72.31 ; Routine gynecological examinationGris Moreau Tugboat Pilot (ASCP) 03-Apr-20139:36 VITAMIN B-12 (CYANOCOBALAMIN) Comments: PATIENT WAS FASTINGPERFORMED BY: Leadformance6370 [facility] PixNov[facility] [id number] (49832) Vitamin B12 628 pg/mL (Normal) Range: 211-946 03-Apr-20139:36 LIPID PANEL (18780) Comments: PATIENT WAS FASTINGPERFORMED BY: Leadformance6370 [facility] PixNovant Health [facility] [id number] LDL/HDL Ratio 2.2 {ratio_units} (Normal) Range: 0.0-3.2 LDL Cholesterol Calc 87 mg/dL (Normal) Range: 0-99 VLDL Cholesterol Edgardo 27 mg/dL (Normal) Range: 5-40 HDL Cholesterol 39 mg/dL (Abnormal) Comments: According to ATP-III Guidelines, HDL-C >59 mg/dL is considered anegative risk factor for CHD. Cholesterol, Total 153 mg/dL (Normal) Range: 100-199 Triglycerides 137 mg/dL (Normal) Range: 0-149 :36 Vitamin D Hydroxy (98857) Comments: PATIENT WAS FASTINGPERFORMED BY: Leadformance6370 [address] [facility] [place] [id number] Vitamin D, 25-Hydroxy 31.1 ng/mL (Normal) Range: 30.0-100.0 Comments: Vitamin D deficiency has been defined by the [place] ofMedicine and an Endocrine Society practice guideline as alevel of serum 25-OH vitamin D less than 20 ng/mL (1,2).The Endocrine Society went on to further define vitamin Dinsufficiency as a level between 21 and 29 ng/mL (2).1. IOM ([place] of Medicine). 2010. Dietary reference intakes for calcium and D. [place]: The National Academies Press.2. Eleni MF, Lorne NC, Dayron WALTON, et al. Evaluation, treatment, and prevention of vitamin D deficiency: an Endocrine Society clinical practice guideline. JCEM. 2010; 96(7):1911-30. :36 TSH (52494) Comments: PATIENT WAS FASTINGPERFORMED BY: EverythingMe Mmoexa7132 [facility] [id number] TSH 1.510 {uIU/mL} (Normal) Range: 0.450-4.500 :36 MICROALBUMIN: CREATININE RATIO Comments: PATIENT WAS FASTINGPERFORMED BY: EverythingMe Exmiuk1369 [facility] [id number] (23537) AND (92827) Creatinine, Urine 212.6 mg/dL (Normal) Range: 15.0-278.0 Microalb/Creat Ratio 2.1 {mg/g_creat} (Normal) Range: 0.0-30.0 Microalbumin, Urine 4.5 ug/mL (Normal) Range: 0.0-17.0 :36 METABOLIC PANEL, Comments: PATIENT WAS FASTINGPERFORMED BY: ShepHertz Ziabwq5244 [facility] [id number] Information: [id number] COMPREHENSIVE (45266) ALT (SGPT) 23 [iU]/L (Normal) Range: 0-32 [...] Glucose, Serum 160 mg/dL (Abnormal) Range: 65-99 99-Baz-55195:34 BILAT SCRN DIGITAL & CAD Radiology Report [...] Mckenzie M.D.April 12, 2012 at 10:58:16 AM [id number] Signed GP/GP If you are the referring physician and would like to consult w [facility] theradiologist who provided this interpretation, please contact Sudha Pritchett at [phone]. If this radiologist is unavailable, youwill be directed to another radiologist to assist. If you are a patient with a question regarding this report, pleasecontactyour referring physician directly. Professional Interpretation Provided By: [employer], Phone , These documents contain legally protected [...] 04/12/12 1103 Sign by: Leobardo Mckenzie MD 95-Hii-37708:34 DEXA BONE DENSITY STUDY (HP) Radiology Report [...] Mckenzie M.D.April 12 2 at 12:31:08 PM [id number] Signed GP/GP If you are the referring physician and would like to consult with theradiologist who provided this interpretation, please contact Rashard thompson M.D. at [phone]. If this radiologist is unavailable, youwill be [...] 04/12/12 1235 Sign by: Leobardo Mckenzie MD 8-Paj-889251:25 HPV automatic Comments: Source.............Cervical;EndocervicalNo. of containers..01 CYTYC Thin Prep VialPATIENT NOT FASTINGPERFORMED BY: WB [facility] [address] [id number] BY: =G L (71935) [facility] Yflpmyutel617 [facility] [id number] Information: [id number] HPV, high-risk Negative Comments: This high-risk HPV [...] of hysterectomy.V72.31 ; Routine gynecological examinationJennkonrad Steven Tugboat Pilot (ASCP) :37 Hemoglobin Glyclated (HGB A1C) Comments: PATIENT WAS FASTINGPERFORMED BY: LabYoujia Lfakpv4672 [facility] [id number] (50740) Hemoglobin A1c 7.1 % (Abnormal) Range: 4.8-5.6 Comments: . Increased risk for diabetes: 5.7 - 6.4 Diabetes: >6.4 Glycemic control for adults with diabetes: <7.0 :37 TSH (94981) Comments: PATIENT WAS FASTINGPERFORMED BY: [facility] Xladeh4634 [facility] [id number] TSH 1.790 {uIU/mL} (Normal) Range: 0.450-4.500 :37 CBC WITH MANUAL DIFF Comments: PATIENT WAS FASTINGPERFORMED BY: LabCoRobert Wood Johnson University HospitalKfkcac6187 [facility] [id number] Information: [id number] (66764) Immature Grans (Abs) 0.0 {x10E3/uL} (Normal) Range: [...] CREATININE RATIO Comments: PATIENT WAS FASTINGPERFORMED BY: [employer]70 [facility] [id number] (21909) AND (50155) Microalb/Creat Ratio 0.8 {mg/g_creat} (Normal) Range: 0.0-30.0 Microalbumin, Urine 1.4 ug/mL (Normal) Range: 0.0-17.0 Creatinine, Urine 183.1 mg/dL (Normal) Range: 15.0-278.0 :37 LIPID PANEL (64530) Comments: PATIENT WAS FASTINGPERFORMED BY: Uniplaceslin6370 [facility] [id number] LDL/HDL Ratio 1.4 {ratio_units} (Normal) Range: 0.0-3.2 [...] PANEL, COMPREHENSIVE Comments: PATIENT WAS FASTINGPERFORMED BY: [employer]70 [facility] [id number] (49040) ALT (SGPT) 26 [iU]/L (Normal) Range: 0-40 [...] (Abnormal) Range: 65-99 :37 Vitamin D Hydroxy (22123) Comments: PATIENT WAS FASTINGPERFORMED BY: [employer]6370 [facility] PixNovant [facility] [id number] Vitamin D, 25-Hydroxy 42.1 ng/mL (Normal) Range: 30.0-100.0 Comments: Vitamin D deficiency has been defined by the [place] of[place]icine and an Endocrine Society practice guideline as alevel of serum 25-OH vitamin D less than 20 ng/mL (1,2).The Endocrine Society went on to further define vitamin Dinsufficiency as a level between 21 and 29 ng/mL (2).1. IOM ([place] of Medicine). 2010. Dietary reference intakes for calcium and D. [place]: The National Academies Press.2. Eleni MF, Lorne MORTON, Dayron WALTON, et al. Evaluation, treatment, and prevention of vitamin D deficiency: an Endocrine Society clinical practice guideline. JCEM. 2010; 96(7):1911-30. 26-Bfg-04664:37 VITAMIN B-12 (CYANOCOBALAMIN) Comments: PATIENT WAS FASTINGPERFORMED BY: LabCoRobert Wood Johnson University HospitalRrpcio8385 [facility] [id number] (75927) Vitamin B12 1841 pg/mL (Abnormal) Range: 211-946 73-Dkb-293253:56 CHEST WITH CONTRAST Radiology Report See Note [...] Signed:Marva HunterFebruary 11, 2012 at 3:53:06 PM [id number] Signed MV/MV If you are the referring physician and would like to consult with theradiologist who provided this interpretation, please co ntact Jackie Sierra M.D. at . If this radiologist is unavailable, youwillbe directed to another radiologist to assist. If you are a patient with a question regarding this report, pleisabella econtactyour referring physician directly. Professional Interpretation Provided By: [employer], Phone , These documents contain legally protected [...] WAS FASTINGPERFORMED BY: LabCoRobert Wood Johnson University HospitalQuooic9359 [facility] [id number] (47364) AND (91912) Creatinine, Urine 87.6 mg/dL (Normal) Range: 15.0-278.0 Microalb/Creat Ratio 1.1 {mg/g_creat} (Normal) Range: 0.0-30.0 Microalbumin, Urine 1.0 ug/mL (Normal) Range: 0.0-17.0 :42 VITAMIN B-12 (CYANOCOBALAMIN) Comments: PATIENT WAS FASTINGPERFORMED BY: LabCoRobert Wood Johnson University HospitalCtehce4557 [facility] [id number] (61634) Vitamin B12 1740 pg/mL (Abnormal) Range: 211-946 98-Ekb-92299:42 CBC WITH MANUAL DIFF Comments: PATIENT WAS FASTINGPERFORMED BY: LabCoRobert Wood Johnson University HospitalVgvvwc4228 [facility] [id number] Information: [id number] (98540) Immature Grans (Abs) 0.0 {x10E3/uL} (Normal) Range: [...] (Normal) Range: 4.0-10.5 :42 Vitamin D Hydroxy (81895) Comments: PATIENT WAS FASTINGPERFORMED BY: EverythingMe Dhvrbq5999 [facility] [id number] Vitamin D, 25-Hydroxy 32.2 ng/mL (Normal) Range: 30.0-100.0 Comments: Vitamin D deficiency has been defined by the [place] of[place]icine and an Endocrine Society practice guideline as alevel of serum 25-OH vitamin D less than 20 ng/mL (1,2).The Endocrine Society went on to further define vitamin Dinsufficiency as a level between 21 and 29 ng/mL (2).1. IOM ([place] of [employer]). 2010. Dietary reference intakes for calcium and D. [place]: The National Academies Press.2. Eleni MF, Lorne MORTON, Dayron WALTON, et al. Evaluation, treatment, and prevention of vitamin D deficiency: an Endocrine Society clinical practice guideline. JCEM. 2010; 96(7):1911-30. :42 LIPID PANEL (92158) Comments: PATIENT WAS FASTINGPERFORMED BY: Leadformance6370 [facility] [id number] LDL/HDL Ratio 2.2 {ratio_units} (Normal) Range: 0.0-3.2 [...] PANEL, COMPREHENSIVE Comments: PATIENT WAS FASTINGPERFORMED BY: EverythingMe Plpzkr4508 [facility] [id number] (34738) ALT (SGPT) 20 [iU]/L (Normal) Range: 0-32 [...] Glucose, Serum 148 mg/dL (Abnormal) Range: 65-99 23-Src-09619:42 TSH (33649) Comments: PATIENT WAS FASTINGPERFORMED BY: [facility] Ngiqoe0424 [facility] [id number] TSH 2.140 {uIU/mL} (Normal) Range: 0.450-4.500 1-Mps-646733:41 Urinalysis, Office (86742) UA - BILIRUBIN Negative (Normal) UA - BLOOD Negative (Normal) UA - GLUCOSE Negative (Normal) UA - KETONES Negative mg/dL (Normal) UA - LEUKOCYTE ESTERASE Negative (Normal) UA - NITRITE Negative (Normal) UA - PH 8.5 (Normal) UA - PROTEIN 30 mg/dL (Normal) UA - SPECIFIC GRAVITY 1.020 (Normal) URINE UROBILINGN SUNNY TIMED Normal mg/dL (Normal) 02-Tyw-535909:08 CULTURE, SPUTUM (59825) Comments: PATIENT NOT FASTINGPERFORMED BY: Uniplaceslin6370 [facility] [id number] Information: SRC:SPT ADD [id number] Result 1 RRF (Normal) Comments: Routine respiratory [...] {uIU/mL} (Normal) Range: 0.358-3.74 :24 VIT D,25 23062 37.4 ng/mL (Normal) Range: 30.0-100.0 Comments: Vitamin D deficiency has been defined by the [place] of[place] and an Endocrine Society practice guideline as alevel of serum 25-OH vitamin D less than 20 ng/mL (1,2).The Endocrine Society went on to further define vitamin Dinsufficiency as a level between 21 and 29 ng/mL (2).1. IOM ([place] of [place]). 2011. Dietary reference intakes for calcium and D. [place]: The National Academies Press.2. Eleni MF, Lorne [place], Dayron WALTON, et al. Evaluation, treatment, and prevention of vitamin D deficiency: an Endocrine Society clinical practice guideline. JCEM. 2010; 96(7): 1911-30.Performed at: [facility] Lab[address] [id number] Director: Leigh Palomo MD, Phone: [phone] 8-Rnm-439753:43 Blood Glucose , Office (70553) Blood Glucose , Office 141 (Normal) 84-Kcd-65119:08 BILAT SCRN DIGITAL & CAD Radiology Report [...] on 04/07/111031 Sign by: Leobardo Mckenzie MD 59-Nad-262809:03 Rapid Strep Test, Office (63253) Comments: neg Rapid Strep Test, Office Negative (Normal) 07-Kqk-058327:48 MEHREEN CULTURE-OTHER (08189) Comments: PATIENT NOT FASTINGPERFORMED BY: ShepHertz Kqyucc8891 [facility] [id number] Information: SRC:DEBRA [id number] Result 1 RRF (Normal) Comments: Routine respiratory marilin Upper Respiratory Culture Final report (Normal) 19-Csc-900136:37 Rapid Strep Test, Office (75113) Rapid Strep Test, Office Negative (Normal) 11-Teg-380741:05 Rapid Flu (09093 x 2) Influenza A Ag negative (Normal) 26-Bzh-24052:18 MICROALBUMIN: CREATININE RATIO Comments: PATIENT WAS FASTINGPERFORMED BY: [employer]70 [facility] [id number] (27540) AND (58088) Microalb/Creat Ratio 2.4 {mg/g_creat} (Normal) Range: 0.0-30.0 Microalbumin, Urine 4.6 ug/mL (Normal) Range: 0.0-17.0 Creatinine, Urine 189.1 mg/dL (Normal) Range: 15.0-278.0 :18 CBC WITH MANUAL DIFF Comments: PATIENT WAS FASTINGPERFORMED BY: EverythingMeRobert Wood Johnson University HospitalZtzuji0752 [facility] [id number] Information: [id number] (23851) Immature Grans (Abs) 0.0 {x10E3/uL} (Normal) Range: [...] 3.80-5.10 WBC 6.4 {x10E3/uL} (Normal) Range: 4.0-10.5 72-Xdh-43477:18 METABOLIC PANEL, COMPREHENSIVE Comments: PATIENT WAS FASTINGPERFORMED BY: LabCoRobert Wood Johnson University HospitalDmjryq2929 [facility] [id number] (00529) ALT (SGPT) 21 [iU]/L (Normal) Range: 0-40 [...] (Abnormal) Range: 65-99 :18 Vitamin D Hydroxy (48629) Comments: PATIENT WAS FASTINGPERFORMED BY: [employer]6370 [address] [facility] [id number] Vitamin D, 25-Hydroxy 38.2 ng/mL (Normal) Range: 32.0-100.0 Comments: Recent studies consider the lower limit of 32.0 ng/mL to be athreshold for optimal health.Tom SOLIS. J Nutr. 2004;135(2):317-22. :18 LIPID PANEL (25201) Comments: PATIENT WAS FASTINGPERFORMED BY: [employer]6370 [address] [facility] [id number] LDL Cholesterol Calc 69 mg/dL (Normal) Range: 0-99 LDL/HDL Ratio 1.7 {ratio_units} (Normal) Range: 0.0-3.2 HDL Cholesterol 40 mg/dL (Normal) Comments: According to ATP-III Guidelines, HDL-C >59 mg/dL is considered anegative risk factor for CHD. VLDL Cholesterol Edgardo 37 mg/dL (Normal) Range: 5-40 Cholesterol, Total 146 mg/dL (Normal) Range: 100-199 Triglycerides 184 mg/dL (Abnormal) Range: 0-149 :18 TSH (08223) Comments: PATIENT WAS FASTINGPERFORMED BY: [facility] Ksdcmc4769 [facility] [id number] TSH 1.380 {uIU/mL} (Normal) Range: 0.450-4.500 :58 HgA1C , Office (11728) HgA1C , Office 6.4 % (Normal) Range: 4.6 - 7.1 :58 Blood Glucose , Office (94303) Blood Glucose , Office 146 (Normal) 58-Svs-240871:43 L/S SPINE,MIN 4 VIEWS (MT) Radiology Report See Note (Normal) Comments: Exam Number: [id number] CLINICAL:The patient is a 59-year-old woman with [...] ESTElectronically Signed PM/PM As part of our [employer] Program, we request that surgical orpathologic correlation, or any additional supportive or discordantmedical history, laboratory or imaging studies be forwarded toRadiformerly named [facility] [employer] [facility] [facility], attention: Peer ReviewCoordinator. , , [address], [address] [place] [address]. Reported By: CHASTITY RETANA M.D. 79-Hsj-790125:28 Urinalysis, Office (84260) UA - BILIRUBIN Negative (Normal) UA - BLOOD Negative (Normal) UA - GLUCOSE Negative (Normal) UA - KETONES Negative mg/dL (Normal) UA - LEUKOCYTE ESTERASE Negative (Normal) UA - NITRITE Negative (Normal) UA - PH 6.0 (Normal) UA - PROTEIN Negative mg/dL (Normal) UA - SPECIFIC GRAVITY 1.025 (Normal) URINE UROBILINGN SUNNY TIMED 2 mg/dL (Normal) 78-Wju-696559:46 Thin prep Pap (59159) Comments: Source.............VaginalLMP / Prev Treat...HystNo. of containers..01 CYTYC Thin Prep VialPERFORMED BY: [facility] [address] [id number] Information: [id number] Note: PAPSMR (Normal) Comments: The Pap smear [...] history of hysterectomy.V72.31 ; Routine gynecological exami [facility] Luis, Tugboat Pilot (ASCP) 33-Ynt-550410:06 Vitamin D Hydroxy (90511) Comments: PATIENT WAS FASTINGPERFORMED BY: Leadformance6370 [facility] [id number] Vitamin D, 25-Hydroxy 26.5 ng/mL (Abnormal) Range: 32.0-100.0 Comments: Recent studies consider the lower limit of 32.0 ng/mL to be athreshold for optimal health.Tom SOLIS. J Nutr. 2004;135(2):317-22. 38-Xur-904772:06 LIPID PANEL (46191) Comments: PATIENT WAS FASTINGPERFORMED BY: TARAS LabLibrato6370 [facility] [id number] LDL Cholesterol Calc 57 mg/dL (Normal) Range: 0-99 LDL/HDL Ratio 1.4 {ratio_units} (Normal) Range: 0.0-3.2 VLDL Cholesterol Edgardo 32 mg/dL (Normal) Range: 5-40 HDL Cholesterol 41 mg/dL (Normal) Comments: According to ATP-III Guidelines, HDL-C >59 mg/dL is considered anegative risk factor for CHD. Triglycerides 162 mg/dL (Abnormal) Range: 0-149 Cholesterol, Total 130 mg/dL (Normal) Range: 100-199 98-Bfg-121201:06 METABOLIC PANEL, Comments: PATIENT WAS FASTINGPERFORMED BY: TARAS Leadformance6370 [facility] [id number] Information: ADD [id number] AND DRAW FEE 99 6660 COMPREHENSIVE (75901) ALT (SGPT) 23 [iU]/L (Normal) Range: 0-40 [...] (Abnormal) Range: 65-99 :20 HgA1C , Office (80248) HgA1C , Office 6.8 % (Normal) Range: 4.6 - 7.1 :20 Blood Glucose , Office (35746) Blood Glucose , Office 129 (Normal) 26-Fbu-225627:38 Rapid Strep Test, Office (43392) Rapid Strep Test, Office Negative (Normal) :09 HgA1C , Office (31456) HgA1C , Office 6.9 % (Normal) Range: 4.6 - 7.1 :09 Blood Glucose , Office (82462) Blood Glucose , Office 127 (Normal) :14 METABOLIC PANEL, COMPREHENSIVE Comments: PATIENT WAS FASTINGPERFORMED BY: LabCoRobert Wood Johnson University HospitalGvyqvc0509 [facility] [id number] (07214) Alkaline Phosphatase, S 60 [iU]/L (Normal) Range: [...] Glucose, Serum 141 mg/dL (Abnormal) Range: 65-99 35-Iwl-31594:14 CBC WITH MANUAL DIFF Comments: PATIENT WAS FASTINGPERFORMED BY: LabCoRobert Wood Johnson University HospitalAtaqki6522 [facility] [id number] Information: [id number] (97377) Baso (Absolute) 0.0 {x10E3/uL} (Normal) Range: 0.0-0.2 [...] URINE QUANT Comments: PATIENT WAS FASTINGPERFORMED BY: Integrity Digital SolutionsNovant Health [facility] [id number] (92504) Microalb/Creat Ratio <.8 {mg/g_creat} (Normal) Range: 0.0-30.0 Microalbumin, Urine <1.0 ug/mL (Normal) Range: 0.0-17.0 Creatinine, Urine 124.3 mg/dL (Normal) Range: 15.0-278.0 :14 TSH (05680) Comments: PATIENT WAS FASTINGPERFORMED BY: [employer]70 [address] [facility] [id number] TSH 2.150 {uIU/mL} (Normal) Range: 0.450-4.500 Comments: Effective July 22, 2009, TSH reference interval for11 - 19 years will be changing to: 0.450 - 4.500 uIU/mLReference interval for all other ages will NOT be affected. :14 Vitamin D Hydroxy (33083) Comments: PATIENT WAS FASTINGPERFORMED BY: [facility]WatchDos[facility] [id number] Vitamin D, 25-Hydroxy 26.6 ng/mL (Abnormal) Range: 32.0-100.0 Comments: Recent studies consider the lower limit of 32.0 ng/mL to be athreshold for optimal health.Tom SOLIS. J Nutr. 2005 Jul;135(2):317-22. 09-Yuh-81588:14 LIPID PANEL (76500) Comments: PATIENT WAS FASTINGPERFORMED BY: [place] 6836670 [facility] [id number] HDL Cholesterol 42 mg/dL (Normal) Comments: According to ATP-III Guidelines, HDL-C >59 mg/dL is considered anegative risk factor for CHD. LDL Cholesterol Calc 100 mg/dL (Abnormal) Range: 0-99 LDL/HDL Ratio 2.4 {ratio_units} (Normal) Range: 0.0-3.2 Triglycerides 172 mg/dL (Abnormal) Range: 0-149 VLDL Cholesterol Edgardo 34 mg/dL (Normal) Range: 5-40 Cholesterol, Total 176 mg/dL (Normal) Range: 100-199 :07 HgA1C , Office (57883) HgA1C , Office 6.1 % (Normal) Range: 4.6 - 7.1 :07 Blood Glucose , Office (27145) Blood Glucose , Office 232 (Normal) :25 Lower Respiratory Culture Comments: Clinical Information: SRC:SP PERFORMED BY: [address] [id number] Lower Respiratory Culture Final report (Normal) Result 1 RRF (Normal) Comments: Routine respiratory marilin :00 Influenza A, H1N1, RT PCR Comments: Clinical Information: SRC:NL PERFORMED BY: [address] [id number] Subtype Novel H1N1 by Negative (Normal) PCR Type Influenza A by Negative (Normal) PCR Viral Final report Comments: PERFORMED BY: [address] [id number] Culture,Rapid,Influen (Normal) Comments: Negative:No Influenza A or B detected. za :29 CHEST, PA AND LATERAL (MT) Radiology Report See Note (Normal) Comments: Exam Number: [id number] CLINICAL:58-year-old woman with cough and shortness of [...] cardiopulmonary process. Reported By: ROSEMARIE ROBBINS M.D. 65-Sjb-135354:45 Rapid Strep Test, Office (97762) Comments: done Rapid Strep Test, Office Negative (Normal) 56-Usx-140723:32 Rapid Flu (23454 x 2) Comments: done INFLUENZA IMMUNOASSY negative (Normal) DIRECT OPTICAL OBSERV 04-Apr-20090:00 FLU A+B DIRECT See Note (Normal) Comments: Negative test results should be confirmed by culture. Order Rapid Viral Culture for Influenzae A+B (116755) if clinically indicated. INFLUENZA ANTIGEN,DIRECT Presumptive NEGATIVE for Influenza A/B Antigen (See Note) 53-Rpe-490324:04 METABOLIC PANEL, COMPREHENSIVE Comments: PATIENT WAS FASTINGPERFORMED BY: LabCoRobert Wood Johnson University HospitalTiaiuz5375 [facility] [id number] (10711) A/G Ratio 1.6 (Normal) Range: 1.1-2.5 Albumin, [...] CREATININE RATIO Comments: PATIENT WAS FASTINGPERFORMED BY: Integrity Digital SolutionsNov[facility] [id number] (62279) AND (08222) Creatinine, Urine 124.0 mg/dL (Normal) Range: 15.0-278.0 Microalb/Creat Ratio 1.5 {ug/mg_creat} (Normal) Range: 0.0-30.0 Microalbumin, Urine 1.9 ug/mL (Normal) Range: 0.0-17.0 :04 LIPID PANEL (70498) Comments: PATIENT WAS FASTINGPERFORMED BY: [facility]WatchDos[facility] [id number] Cholesterol, Total 155 mg/dL (Normal) Range: 100-199 HDL Cholesterol 44 mg/dL (Normal) Comments: According to ATP-III Guidelines, HDL-C >59 mg/dL is considered anegative risk factor for CHD. LDL Cholesterol Calc 89 mg/dL (Normal) Range: 0-99 LDL/HDL Ratio 2.0 {ratio_units} (Normal) Range: 0.0-3.2 Triglycerides 109 mg/dL (Normal) Range: 0-149 VLDL Cholesterol Edgardo 22 mg/dL (Normal) Range: 5-40 :04 Vitamin D Hydroxy (84384) Comments: PATIENT WAS FASTINGPERFORMED BY: [facility] SolutionsNov[facility] [id number] Vitamin D, 25-Hydroxy 24.9 ng/mL (Abnormal) Range: 32.0-100.0 Comments: Recent studies consider the lower limit of 32.0 ng/mL to be athreshold for optimal health.Tom SOLIS. J Nutr. 2004;135(2):317-22. :04 C-REACTIVE PROTEIN (39395) Comments: PATIENT WAS FASTINGPERFORMED BY: [facility] Npdahk[address] [place] entertainmentblin [place] [id number] C-Reactive Protein, Quant 4.4 mg/L (Normal) Range: 0.0-4.9 :04 CBC WITH MANUAL DIFF (51258) Comments: PATIENT WAS FASTINGClinical Information: ADD DRAW FEE 690720 ADD J 60694 PERFORMED BY: [facility] [facility] Epiybz9546 [facility] [id number] Baso (Absolute) 0.1 {x10E3/uL} (Normal) Range: 0.0-0.2 [...] 11.7-15.0 WBC 5.0 {x10E3/uL} (Normal) Range: 4.0-10.5 89-Syl-896259:04 TSH (28202) Comments: PATIENT WAS FASTINGPERFORMED BY: LabCoRobert Wood Johnson University HospitalRzxhne5027 [facility] [id number] TSH 1.151 {uIU/mL} (Normal) Range: 0.450-4.500 56-Mxs-960571:00 HgA1C , Office (56363) HgA1C , Office 6.2 % (Normal) Range: 4.6 - 7.1 56-Bdz-201868:00 Blood Glucose , Office (98093) Blood Glucose , Office 132 (Normal) 97-Qpi-886836:39 ABDOMEN WITH IV CONTRAST Radiology Report See Note (Normal) Comments: Exam Number: [id number] CT ABDOMEN WITH CONTRAST CLINICAL STATEMENTRight upper [...] anincidental adenoma. Reported By: EDILIA WHEELER M.D. 81-Cvb-010752:38 CHEST WITH CONTRAST Radiology Report See Note (Normal) Comments: Exam Number: [id number] CT OF THE CHEST WITH CONTRAST. STATEMENTCough, [...] mediastinal lymphadenopathy. Reported By: EDILIA WHEELER M.D. 59-Xrz-885557: ZEESHAN 35 U/L (Normal) Comments: LIVER FUNCTION: PLEASE CALL DR CHEN, WASTE/MATERIALS EXCHANGE SPECIALIST FOR DR CHRISTINA. 46 Range: 25-115 07-Fov-541714: C-REACTIVE PROT 13.74 mg/L (Abnormal) Comments: LIVER FUNCTION: PLEASE CALL DR CHEN, WASTE/MATERIALS EXCHANGE SPECIALIST FOR DR CHRISTINA. 46 Range: 0.0-6.0 Comments: Test performed using the Dimension C-Reactive ProteinExtended Range assay method. This assay meets the AHA/CDC 2003 recommendations fordetermining patients at high risk for cardiovasculardisease. Reference: High risk CRP >3.0 mg/L 74-Hlp-667434:46 CBCD,SMEAR DIFF BAND 1 % (Normal) Range: [...] 47-70 WBC 5.6 K/mm3 (Normal) Range: 4.4-11.0 66-Pcs-577001:46 COMP METABOLIC Comments: LIVER FUNCTION: PLEASE CALL DR CEHN, WASTE/MATERIALS EXCHANGE SPECIALIST FOR DR CHRISTINA. A/G 1.2 {RATIO} (Normal) [...] T PROT 7.4 g/dL (Normal) Range: 6.4-8.2 83-Eqn-731420:46 D-DIMER QUANT <200 ng/mL (Normal) Comments: NORMAL D-Dimer level indicates no DVT or PE. RESULTS CALLED TO DR CHEN 09/21/08 RAD SINGLETON.REPORT READ BACK BY SAME . :46 ESR SED RATE 29 mm/h (Normal) Range: 0-30 :46 LIPASE 239 U/L (Normal) Comments: LIVER FUNCTION: PLEASE CALL DR CHEN, WASTE/MATERIALS EXCHANGE SPECIALIST FOR DR CHRISTINA. Range: 114-286 40-Bez-137355:12 HgA1C , Office (82541) HgA1C , Office 6.1 % (Normal) Range: 4.6 - 7.1 71-Jbc-197233:12 Blood Glucose , Office (16522) Blood Glucose , Office 116 (Normal) 90-Lvl-820633:48 Urine Culture,Comprehensive Comments: Clinical Information: SRC:UR PERFORMED BY: [facility]6370 [facility] [id number] Result 1 MUG (Normal) Comments: Mixed urogenital Colonies/mL Urine Culture,Comprehensive Final report (Normal) 36-Byt-117581:31 L/S SPINE,MIN 4 VIEWS (MT) Radiology Report See Note (Normal) Comments: Exam Number: [id number] LUMBAR SPINE, 5 VIEWS CLINICAL STATEMENTFollow up bone density study, question compression of L5. COMPARISONBone Dexatometry May 03, 2008. 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 Vertebral body height andalignment appears maintained. Multilevel mild degenerative discchanges are present throughout the lumbar spine with end plateosteophyte formation present. There is mini mal concavity of the B2daulpkbg end plate likely secondary to degenerative change [...] WAS FASTINGPERFORMED BY: LabCoRobert Wood Johnson University HospitalEgbalq4269 [facility] [id number] (18892) A/G Ratio 1.4 (Normal) Range: 1.1-2.5 Albumin, [...] Total 3.0 g/dL (Normal) Range: 1.5-4.5 If -Surinamese >59 mL/min/1.73 Comments: Note: Persistent reduction for [...] Range: 65-99 :59 CBC WITH MANUAL DIFF (20082) Comments: PATIENT WAS FASTINGClinical Information: ADD DRAW FEE [id number] ADD J 29314 PERFORMED BY: TARAS [employer] Dzixwb4734 [facility] [id number] Baso (Absolute) 0.0 {x10E3/uL} (Normal) Range: 0.0-0.2 [...] FUNCTION PANEL Comments: PATIENT WAS FASTINGPERFORMED BY: EverythingMe Ncuchl3987 [facility] [id number] (23086) Bilirubin, Direct 0.09 mg/dL (Normal) Range: 0.00-0.40 :59 LIPID PANEL (72727) Comments: PATIENT WAS FASTINGPERFORMED BY: [employer] Ixvpzc2613 [facility] [id number] Cholesterol, Total 156 mg/dL (Normal) Range: 100-199 HDL Cholesterol 43 mg/dL (Normal) Comments: According to ATP-III Guidelines, HDL-C >59 mg/dL is considered anegative risk factor for CHD. LDL Cholesterol Calc 77 mg/dL (Normal) Range: 0-99 LDL/HDL Ratio 1.8 {ratio_units} (Normal) Range: 0.0-3.2 Triglycerides 180 mg/dL (Abnormal) Range: 0-149 VLDL Cholesterol Edgardo 36 mg/dL (Normal) Range: 5-40 51-Ved-927825:27 Urinalysis, Office (70182) UA - BILIRUBIN Negative (Normal) UA - [...] Report See Note (Normal) Comments: Exam Number: [id number] BONE DENSITOMETRY HISTORYOsteopenia. TECHNIQUE Bone densitometry of [...] Report See Note (Normal) Comments: Exam Number: [id number] ULTRASOUND OF ABDOMINAL AORTA HISTORYFamily history of [...] in size. Reported By: CHASTITY RETANA M.D. 66-Mzq-285195:06 URINE MEHREEN CULTURE-SUNNY COL Comments: PATIENT NOT FASTINGClinical Information: SRC:UR ADD [id number] PERFORMED BY: [facility] Rklohu5204 [facility] [id number] COUNT ([id number]) Result 1 Proteus mirabilis Comments: 2,000 Colonies/mL [...] STrimethoprim/Sulfa S Urine Final report (Normal) Culture,Comprehensive 46-Fyh-03324:19 HEPATIC FUNCTION PANEL Comments: PATIENT WAS FASTINGClinical Information: ADD DRAW FEE [id number] ADD J [id number] PERFORMED BY: ShepHertzUNM Psychiatric CenterGbxece0750 [facility] [id number] (81939) Albumin, Serum 4.0 g/dL (Normal) Range: 3.5-5.5 Alkaline Phosphatase, S 91 [iU]/L (Normal) Range: 25-150 ALT (SGPT) 18 [iU]/L (Normal) Range: 0-40 AST (SGOT) 21 [iU]/L (Normal) Range: 0-40 Bilirubin, Direct 0.11 mg/dL (Normal) Range: 0.00-0.40 Bilirubin, Total 0.4 mg/dL (Normal) Range: 0.1-1.2 Protein, Total, Serum 6.8 g/dL (Normal) Range: 6.0-8.5 :19 LIPID PANEL (71499) Comments: PATIENT WAS FASTINGPERFORMED BY: [employer]70 [facility] [id number] Cholesterol, Total 159 mg/dL (Normal) Range: 100-199 HDL Cholesterol 41 mg/dL (Normal) Range: 40-59 Comments: EFFECTIVE APRIL 30, 2008 the reference interval for HDL-C will be changing to: >39 mg/dL LDL Cholesterol Calc 80 mg/dL (Normal) Range: 0-99 LDL/HDL Ratio 2.0 {ratio_units} (Normal) Range: 0.0-3.2 Triglycerides 192 mg/dL (Abnormal) Range: 0-149 VLDL Cholesterol Edgardo 38 mg/dL (Normal) Range: 5-40 43-Bpm-648342:08 Urinalysis, Office (20811) Comments: done km UA - BILIRUBIN Negative (Normal) UA - BLOOD Negative (Normal) UA - GLUCOSE Negative (Normal) UA - KETONES Negative mg/dL (Normal) UA - LEUKOCYTE ESTERASE Small (Normal) UA - NITRITE Negative (Normal) UA - PH 6.0 (Normal) UA - PROTEIN Negative mg/dL (Normal) UA - SPECIFIC GRAVITY 1.015 (Normal) URINE UROBILINGN SUNNY TIMED Normal mg/dL (Normal) :25 HgA1C , Office (67673) HgA1C , Office 5.7 % (Normal) Range: 4.6 - 7.1 50-Sxf-42165:25 Blood Glucose , Office (23047) Blood Glucose , Office 127 (Normal) 14-Dwr-280113:47 UNILAT LT DIAG DIGITAL & CAD Radiology Report See Note (Normal) Comments: Exam Number: [id number] MAMMOGRAM, UNILATERAL LEFT DIAGNOSTIC DIGITAL AND CAD [...] mammograms werealso examined with computer-aided detection software ([employer], [employer] Reported By: CHASTITY RETANA M.D. 05-Eon-67851:10 [facility] DIGITAL & CAD Radiology Report See Note (Normal) Comments: Exam Number: [id number] MAMMOGRAM, BILATERAL SCREENING DIGITAL AND CAD HISTORYRoutine [...] mammograms werealso examined with computer-aided detection software ([employer].). Reported By: CHASTITY RETANA M.D. :36 HgA1C , Office (15074) HgA1C , Office 7.4 % (Abnormal) Range: 4.6 - 7.1 :36 Blood Glucose , Office (51548) Blood Glucose , Office 168 (Normal) 65-Qpp-288011:15 COMP METABOLIC A/G 1.1 {RATIO} (Normal) Range: [...] Range: 0.34-4.82 :46 CBC WITH MANUAL DIFF (47070) Comments: PATIENT NOT FASTINGClinical Information: ADD [id number] ADD [id number] PERFORMED BY: LabCoRobert Wood Johnson University HospitalNegthr8379 [facility] [id number] Baso (Absolute) 0.0 {x10E3/uL} (Normal) Range: 0.0-0.2 [...] 11.7-15.0 WBC 3.4 {x10E3/uL} (Abnormal) Range: 4.0-10.5 85-Sfa-96311:49 MYOCARD PERF SPECT REST/STRESS Radiology Report See Note (Normal) Comments: Exam Number: [id number] MYOCARDIAL PERFUSION SCAN TECHNIQUEThe patient was injected [...] FLOR WEI M.D. :44 HgA1C , Office (50964) HgA1C , Office 7.2 % (Abnormal) Range: 4.6 - 7.1 :44 Blood Glucose , Office (47718) Blood Glucose , Office 141 (Normal) :48 HgA1C , Office (46846) HgA1C , Office 7.3 % (Abnormal) Range: 4.6 - 7.1 :47 Blood Glucose , Office (01638) Blood Glucose , Office 148 (Normal) :12 [...] :12 TSH 1.61 {uIU/mL} (Normal) Range: 0.34-4.82 54-Tsr-912237:10 CBCD,SMEAR DIFF BASOPHIL 1 % (Normal) Range: [...] Range: 4.4-11.0 :46 Blood Glucose , Office (26599) Blood Glucose , Office 163 (Normal) :24 HgA1C , Office (89601) HgA1C , Office 6.6 % (Normal) Range: 4.6 - 7.1 :24 Blood Glucose , Office (05282) Blood Glucose , Office low (Normal) :09 HgA1C , Office (77103) Comments: done HgA1C , Office 6.5 % (Normal) Range: 4.6 - 7.1 :09 Blood Glucose , Office (70561) Comments: done Blood Glucose , Office 161 [...] (Normal) Range: 0.34-4.82 :05 HgA1C , Office (43356) HgA1C , Office 7.2 % (Abnormal) Range: 4.6 - 7.1 :05 Blood Glucose , Office (18706) Blood Glucose , Office 114 (Normal) :35 [...] Report See Note (Normal) Comments: Exam Number: [id number] CHEST, PA AND LATERAL HISTORYShortness of breath. FINDINGSCardiac configuration is normal. There is mild overinflation of thelungs. No acute infiltrate, effusion, or pneumothora x is identified. IMPRESSIONNo acute changes noted in the lungs. Reported By: FLOR CHOWDHURY M.D. 25-Tox-578071:59 CHEST, PA AND LATERAL Radiology Report See Note (Normal) Comments: Exam Number: [id number] PA AND LATERAL CHEST HISTORY Being done [...] infiltrate identified. Reported By: FLOR CHOWDHURY M.D. 75-Eao-142166:59 JHONNY 04808 59 U/L (Normal) Range: - Comments: Performed At: [address] [id number] 64-Tsa-690503:06 JHONNY 56256 61 U/L (Normal) Range: -09-Jul-200610:06 REBECCA-D 187566 REBECCA-DIRECT 31 U/mL (Normal) Range: 0-99 Comments: Negative <100 Equivocal 100 - 120 Positive >120 24-Ynx-778848:06 C-REACTIVE PROT 7.75 mg/L (Abnormal) Range: 0.0-6.0 Comments: Test performed using the Dimension C-Reactive ProteinExtended Range assay method. This assay meets the AHA/CDC 2003 recommendations fordetermining patients at high risk for cardiovasculardisease. Reference: High risk CRP >3.0 mg/L 76-Iby-987089:06 CBCD,SMEAR DIFF CELLS COUNTED 100 (Normal) EOS [...] 5 mm/h (Normal) Range: 0-30 :06 HISTOPL 081405 SeeNote (Normal) Comments: Result: Negative Performed At: [facility] [place], [place] [id number] At: [facility] Dkbrusssuc[address] [place], [place] [id number] :06 LDH 170 U/L (Normal) Range: 100-190 :06 RA LATEX 6502 4.4 {IU/mL} (Normal) Range: 0.0-13.9 06-Jkm-117727:49 CBCD,SMEAR DIFF CELLS COUNTED 100 (Normal) EOS [...] (Normal) Range: 0.34-4.82 :31 HgA1C , Office (50655) HgA1C , Office 7.9 % (Abnormal) Range: 4.6 - 7.1 :31 Blood Glucose , Office (29822) Blood Glucose , Office 302 (Normal) Plan [...] up tomorrow, come as walk in for Honestly.comdrol Indication: Nonsmoker Cough : Eprescribed prescriptions (G8553) [...] Make follow up apt with Silas and Revenue Audit ClerkMaximino on September 23 between 2-4 Indication: [...] Wheezing Cough : Follow up tomorrow with [facility] Indication: Cough Unspecified asthma with (acute) exacerbation [...] TESTS Indication: Acute sinusitis Planned Observations GLUCOSE (45030)Indication: Hypoglycemia On: 11-Ayj-322035:48 Request Cortisol,Urinary Free 24- Hour Urine (62304)Indication: Adrenal adenoma, right On: 89-Bdc-260370:54 Request Catecholamines,24-Hour Urine (28705)Indication: Adrenal adenoma, right On: 60-Kdu-020933:54 Request DHEA (DEHYDROEPIANDROSTERONE) (26134)Indication: Adrenal adenoma, right On: 51-Gtp-306901:51 Request METABOLIC PANEL, COMPREHENSIVE (55227)Indication: Adrenal adenoma, right On: 05-Vzy-315836:51 Request LIPID PANEL (95479)Indication: Hypercholesteremia On: 07-Stj-86513:23 Request HGB A1C (00729)Indication: Diabetes mellitus type II, controlled, with no complications (Renamed from Controlled type 2 diabetes mellitus without complication) On: 28-Eek-733950:00 Request Comments: Jun 2016 1 week before apt METABOLIC PANEL, COMPREHENSIVE (92533)Indication: Hypercalcemia On: 97-Url-793090:03 Request GLUCOSE (31195)Indication: Type 2 or unspecified type diabetes mellitus, uncontrolled On: 87-Pdz-759895:00 Request METABOLIC PANEL, COMPREHENSIVE (34925)Indication: Type 2 or unspecified type diabetes mellitus, uncontrolled On: :28 Request CALCIFEDIOL (80668)Indication: Vitamin D deficiency, unspecified On: :27 Request URINALYSIS, W/ MICRO (50511)Indication: Type 2 or unspecified type diabetes mellitus, uncontrolled On: :18 Request MICROALBUMIN: CREATININE RATIO (28912) AND (79469)Indication: Type 2 or unspecified type diabetes mellitus, uncontrolled On: :18 Request TSH (15355)Indication: Type 2 or unspecified type diabetes mellitus, uncontrolled On: :18 Request Lipid Panel (39987)Indication: Type 2 or unspecified type diabetes mellitus, uncontrolled On: :18 Request Metabolic Panel, Comprehensive (23259)Indication: Type 2 or unspecified type diabetes mellitus, uncontrolled On: :18 Request HGB A1C (83310)Indication: Type 2 or unspecified type diabetes mellitus, uncontrolled On: :14 Request Comments: 6.6 CBC W/AUTO DIFF WBC (14585)Indication: Hypertension On: :07 Request METABOLIC PANEL, COMPREHENSIVE (50240)Indication: Hypertension On: 94-Axn-371435:07 Request Vitamin D Hydroxy (02987)Indication: Vitamin D deficiency, unspecified On: 77-Pen-932163:07 Request LIPID PANEL (02572)Indication: Other and unspecified hyperlipidemia On: 54-Xzn-991853:07 Request Vitamin D Hydroxy (78445)Indication: Vitamin D deficiency, unspecified On: :15 Request CBC with auto diff (30774)Indication: Hypertension On: :14 Request TSH (50614)Indication: Hypothyroidism On: :14 Request MICROALBUMIN: CREATININE RATIO (71490) AND (89986)Indication: Type 2 or unspecified type diabetes mellitus, uncontrolled On: :14 Request METABOLIC PANEL, COMPREHENSIVE (89851)Indication: Hypertension On: :14 Request LIPID PANEL (60098)Indication: Other and unspecified hyperlipidemia On: :13 Request MYOGLOBIN (27152)Indication: Chest pain On: :52 Request CPK MB FRACTION (60082)Indication: Chest pain On: :52 Request ASSAY, TROPONIN, QUANTITATIVE (aka Troponin I) (71340)Indication: Chest pain On: :52 Request CBC WITH MANUAL DIFF (94717)Indication: Acute exacerbation of COPD with asthma On: :52 Request CALCIFEDIOL (17268)Indication: Depression On: :50 Request Lipid Panel (15552)Indication: Other and unspecified hyperlipidemia On: :50 Request TSH (97771)Indication: Hypothyroidism On: :49 Request URINALYSIS (06234)Indication: Hypertension On: :49 Request CBC WITH MANUAL DIFF (00010)Indication: Hypertension On: :49 Request Metabolic Panel, Comprehensive (69610)Indication: Hypertension On: :49 Request CBC (AUTO) (45578)Indication: Hypercalcemia On: 7-Ipz-359459:06 Request UPEP (61957)Indication: Hypercalcemia On: 9-Xlo-753629:06 Request SPEP (40552)Indication: Hypercalcemia On: 2-Way-064779:06 Request SED RATE ERYTHROCYTE (75215)Indication: Hypercalcemia On: 1-Qng-263133:06 Request CALCIUM SERUM (31479)Indication: Hypercalcemia On: 8-Wrx-834990:05 Request PARATHORMONE (74370)Indication: Hypercalcemia On: 1-Oxv-008121:05 Request FECAL OCCULT HGB ASSAY- tubes sent home (51936)Indication: Well woman exam with routine gynecological exam On: 56-Fgr-822601:54 Request HgA1C , Office (62313)Indication: Type 2 or unspecified type diabetes mellitus, uncontrolled On: 24-Bgn-811528:45 Request CBC WITH MANUAL DIFF (44602)Indication: Osteopenia On: 02-Zpw-661204:23 Request Vitamin D Hydroxy (29959)Indication: Vitamin D deficiency, unspecified On: 30-Ukf-895615:22 Request TSH (35018)Indication: Hypothyroidism On: 29-Qat-194021:22 Request METABOLIC PANEL, COMPREHENSIVE (91117)Indication: Sarcoidosis On: 93-Wol-027911:21 Request Thin prep Pap (39027)Indication: Well woman exam with routine gynecological exam On: 4-Ltj-835038:16 Request FECAL OCCULT HGB ASSAY- tubes sent home (86776)Indication: Well woman exam with routine gynecological exam On: 2-Bpj-137282:16 Request METABOLIC PANEL, COMPREHENSIVE (54127)Indication: Type 2 or unspecified type diabetes mellitus, uncontrolled On: 5-Tad-561044:14 Request CBC WITH MANUAL DIFF (75701)Indication: Type 2 or unspecified type diabetes mellitus, uncontrolled On: 0-Dkb-828615:14 Request MICROALBUMIN: CREATININE RATIO (70954) AND (36327)Indication: Type 2 or unspecified type diabetes mellitus, uncontrolled On: 3-Spb-822412:14 Request Vitamin D Hydroxy (65930)Indication: Vitamin D deficiency, unspecified On: 4-Nrg-970736:14 Request METABOLIC PANEL, COMPREHENSIVE (49623)Indication: Benign essential hypertension On: 3-Hfj-063864:14 Request TSH (37486)Indication: Hypothyroidism On: 1-Dce-862505:14 Request LIPID PANEL (02043)Indication: Other and unspecified hyperlipidemia On: 4-Qvv-316888:14 Request HgA1C , Office (45809)Indication: Type 2 or unspecified type diabetes mellitus, uncontrolled On: 4-Kke-833788:43 Request CBC WITH MANUAL DIFF (15462)Indication: Benign essential hypertension On: 5-Gjw-678467:22 Request METABOLIC PANEL, COMPREHENSIVE (65929)Indication: Benign essential hypertension On: 3-Zuk-506092:22 Request LIPID PANEL (01649)Indication: Other and unspecified hyperlipidemia On: 4-Ptl-934323:22 Request MEHREEN CULTURE-OTHER (33671)Indication: Pharyngitis, acute On: 20-Pgy-223710:38 Request LIPID PANEL (49237)Indication: Other and unspecified hyperlipidemia On: :40 Request CBC WITH MANUAL DIFF (11035)Indication: DIABETES MELLITUS WITHOUT MENTION OF COMPLICATION; TYPE II OR UNSPECIFIED TYPE, NOT STATED UNCONTROLLED On: :40 Request METABOLIC PANEL, COMPREHENSIVE (77845)Indication: DIABETES MELLITUS WITHOUT MENTION OF COMPLICATION; TYPE II OR UNSPECIFIED TYPE, NOT STATED UNCONTROLLED On: 76-Hwm-082443:40 Request Vitamin D Hydroxy (62074)Indication: Vitamin D deficiency, unspecified On: 48-Gsk-958704:38 Request CULTURE, SPUTUM (83629)Indication: Flu On: 14-Rtq-685413:45 Request nasal influenza swab (40542) T1Zouisxiyll: Cough On: 1-Viv-112297:00 Request Rapid Flu (26791 x 2)Indication: Cough On: 7-Kph-214956:53 Request HEPATIC FUNCTION PANEL (56763)Indication: Other and unspecified hyperlipidemia On: :42 Request LIPID PANEL (47696)Indication: Other and unspecified hyperlipidemia On: :42 Request Vitamin D Hydroxy (83073)Indication: Vitamin D deficiency, unspecified On: :41 Request Lipase (56779)Indication: Nausea On: :41 Request Amylase (51532)Indication: Nausea On: :41 Request C-REACTIVE PROTEIN (68332)Indication: SOB (shortness of breath) on exertion On: 87-Jpz-745866:39 Request SED RATE ERYTHROCYTE (17986)Indication: SOB (shortness of breath) on exertion On: :39 Request METABOLIC PANEL, COMPREHENSIVE (78836)Indication: SOB (shortness of breath) on exertion On: :39 Request CBC WITH MANUAL DIFF (60107)Indication: SOB (shortness of breath) on exertion On: :39 Request D-Dimer (56978)Indication: SOB (shortness of breath) on exertion On: :39 Request TSH (56315)Indication: Hypothyroidism On: 15-Ong-252572:41 Request MICROALBUMIN: CREATININE RATIO (52475) AND (15008)Indication: DIABETES MELLITUS WITHOUT MENTION OF COMPLICATION; TYPE II OR UNSPECIFIED TYPE, NOT STATED UNCONTROLLED On: 40-Ysa-293256:37 Request HEPATIC FUNCTION PANEL (29788)Indication: Other and unspecified hyperlipidemia On: 47-Sje-197715:37 Request LIPID PANEL (63047)Indication: Other and unspecified hyperlipidemia On: 13-Fuq-936082:37 Request URINE MEHREEN CULTURE-SUNNY COL COUNT (92852)Indication: Urinary frequency On: 02-Yoj-603097:05 Request URINE MEHREEN CULTURE-SUNNY COL COUNT (22978)Indication: Urinary frequency On: 92-Jpc-778716:05 Request URINE MEHREEN CULTURE-SUNNY COL COUNT (38184)Indication: Urinary frequency On: 08-Zwj-449087:05 Request URINE MEHREEN CULTURE-SUNNY COL COUNT (88242)Indication: Urinary frequency On: :05 Request URINE MEHREEN CULTURE-SUNNY COL COUNT (43114)Indication: Urinary frequency On: 84-Urd-898108:05 Request URINE MEHREEN CULTURE-SUNNY COL COUNT (94841)Indication: Urinary frequency On: :05 Request URINE MEHREEN CULTURE-SUNNY COL COUNT (35066)Indication: Urinary frequency On: :05 Request MEHREEN CULTURE-OTHER (12685)Indication: Family history of aneurysm On: 70-Oow-465266:17 Request MICROALBUMIN URINE QUANT (93837)Indication: Type 2 or unspecified type diabetes mellitus, uncontrolled On: 69-Vxy-01463:55 Request METABOLIC PANEL, COMPREHENSIVE (69742)Indication: Hypertension On: :54 Request TSH (49854)Indication: Hypothyroidism On: :54 Request LIPID PANEL (91962)Indication: Other and unspecified hyperlipidemia On: 52-Eff-67592:53 Request TSH (13072)Indication: Hypothyroidism On: 75-Dhv-329298:49 Request METABOLIC PANEL, COMPREHENSIVE (01942)Indication: DIABETES MELLITUS WITHOUT MENTION OF COMPLICATION; TYPE II OR UNSPECIFIED TYPE, NOT STATED UNCONTROLLED On: 22-Wcz-001028:49 Request LIPID PANEL (55721)Indication: DIABETES MELLITUS WITHOUT MENTION OF COMPLICATION; TYPE II OR UNSPECIFIED TYPE, NOT STATED UNCONTROLLED On: 97-Qec-000676:49 Request CBC WITH MANUAL DIFF (36986)Indication: Anemia On: :49 Request Rapid Strep Test, Office (81775)Indication: Pharyngitis, acute On: :27 Request Comments: neg HDL Cholesterol-Direct (54229)Indication: Low HDL (under 40) On: 83-Clw-309092:41 Request Comments: DO IN 3 MO LIPID PANEL (38939)Indication: Other and unspecified hyperlipidemia On: :54 Request URINALYSIS W/O MICRO (91884)Indication: Hypertension On: :54 Request TSH (71729)Indication: Hypothyroidism On: 10-Fmo-933931:54 Request METABOLIC PANEL, COMPREHENSIVE (40525)Indication: Hypertension On: :54 Request CBC WITH MANUAL DIFF (59256)Indication: Anemia On: :54 Request TSH (06827)Indication: Hypothyroidism On: :59 Request URINALYSIS W/O MICRO (94690)Indication: Type 2 or unspecified type diabetes mellitus, uncontrolled On: :59 Request CBC WITH MANUAL DIFF (06002)Indication: Type 2 or unspecified type diabetes mellitus, uncontrolled On: :59 Request MICROALBUMIN: CREATININE RATIO (45501) AND (80047)Indication: Type 2 or unspecified type diabetes mellitus, uncontrolled On: :58 Request METABOLIC PANEL, COMPREHENSIVE (40387)Indication: Type 2 or unspecified type diabetes mellitus, uncontrolled On: :58 Request HgA1C , Office (82391)Indication: Abnormal glucose tolerance test On: 82-Dis-069961:35 Request Blood Glucose , Office (41697)Indication: Abnormal glucose tolerance test On: 10-Kmr-504125:35 Request Planned Encounters Medical; 1 Month FU - On: 13-Apr-2018 13:45 [facility] Dafne Jaime CNP, CNP, Mary E Medical; Walk Assessment - On: 20-Apr-2018 13:00 [facility] Visit, Nurse Planned Procedures INFUSION, NORMAL SALINE On: 24-Jan-2018 Intent SOLUTION , 1000 CC Comments: lot:[id number]:[id number]:IV right anticub dose:1000ml given by:carmen Shay LPN (Special Coverage Instructions Apply. See MCM: 2049) (J7030)By: Dafne Jaime CNP, CNP, Mary E IV Needle placement On: 24-Jan-2018 Intent (92229)By: Dafne Jaime CNP, CNP, Mary E Radiology - Lumbar On: 23-Dec-2017 Intent SpineBy: Yoselin Oconnell CT - Abdomen & Pelvis On: 23-Dec-2017 Intent Stone ProtocolBy: Anish, Comments: STAT R/O Kidney stones bilateral Yoselin COMP EYE EXAMINATION, On: 09-Dec-2017 Intent ESTAB PATIENT (77246)By: Yoselin Oconnell Toradol Injection, 30 mg On: 12-Jul-2017 Intent (J1885)By: Dafne Jaime CNP, CNP, Mary E Toradol Injection, 30 mg On: 07-Apr-2017 Intent (J1885)By: Dafne Jaime CNP, CNP, Mary E Flu Vaccine (Quadrivalent) On: 24-Mar-2017 Intent 29666Ms: Dafne Jaime CNP, CNP, Mary E Toradol Injection, 30 mg On: 24-Mar-2017 Intent (J1885)By: Dafne Jaime CNP, CNP, Mary E Rocephin Injection, 2 Gram On: 18-Nov-2016 Intent (J0696)By: Dafne Jaime CNP, CNP, Mary E Aerosol Treatment On: 18-Nov-2016 Intent (65764)By: Dafne Jaime CNP, CNP, Mary E Solu -Medrol Injection, On: 18-Nov-2016 Intent 125 mg (J2930)By: Dafne Jaime CNP, CNP, Mary E MAMMOGRAM, SCREENING, BOTH On: 19-Aug-2016 Intent BREAST (79382)By: Dafne Jaime CNP, CNP, Mary E DEXA SCAN AXIAL SKELETON On: 19-Aug-2016 Intent (32514)By: Dafne Jaime CNP, CNP, Mary E GROUP PULMONARY On: 11-Feb-2016 Intent REHABILITATION WITH EXERCISE (92669)By: Dafne Jaime CNP, CNP, Mary E Six Minute Walk Assessment On: 17-Oct-2015 Intent (19828)By: Kody, Nurse PFT - CompleteBy: Kita On: 24-Sep-2015 Intent Vanessa HUTCHINSON Rocephin Injection, 2 Gram On: 21-Aug-2015 Intent (J0696)By: Addison DOUGHERTY, Comments: IV 2 gramsright lurnhnj49 guagetolerated welllot [id number] 02/12as, COMMUNICATIONS PROJECT MANAGER Dafne Jaime BENCH SCIENTIST, Dafne Mota INFUSION, NORMAL SALINE On: 21-Aug-2015 Intent SOLUTION , 1000 CC (Special Coverage Instructions Apply. See MCM: 2048) (J7030)By: Dafne Jaime CNP, CNP, Dafne Mota Solu -Medrol Injection, On: 21-Aug-2015 Intent 125 mg (J2930)By: Addison Comments: lot [id number] 12/1824 mcgIMright gmas, COMMUNICATIONS PROJECT MANAGER BENCH SCIENTIST, Dafne Mota Tgezraalcon DOUGHERTY, Dafne Mota Radiology - ChestBy: Addison On: 20-Aug-2015 Intent LADONNA, Radha Ciezraalcon DOUGHERTY, Comments: call results to Chayezraalcon Dafne Mota INFUSION, NORMAL SALINE On: 20-Aug-2015 Intent SOLUTION , 250 CC (J7050)By: Dafne Jaime CNP, CNP Dafne Mota Rocephin Injection, 2 Gram On: 20-Aug-2015 Intent (J0696)By: Addison DOUGHERTY, Comments: IV 2 gramsright [id number] guagetolerated well, no redness notedlot [id number] 01/26/18as, COMMUNICATIONS PROJECT MANAGER Dafne Jaime LADONNA, Dafne Mota Solu -Medrol Injection, On: 20-Aug-2015 Intent 125 mg (J2930)By: Addison Comments: SOLUMEDROLlot:[id number]:ite:lt glutroute:IMdose:125mgDEMICK, LINDA DOUGHERTY, Radha Ciezraalcon DOUGHERTY, Dafne Mota Aerosol Treatment On: 20-Aug-2015 Intent (78309)By: Slarb Gloria SILVA Rocephin Injection, 2 Gram On: 19-Aug-2015 Intent (J0696)By: Addison DOUGHERTY, Comments: [id number] hip, IM JM, [employer] Radha Curtisalcon DOUGHERTY, Dafne Mota Solu -Medrol Injection, On: 19-Aug-2015 Intent 125 mg (J2930)By: Addison Comments: [id number] hip, IMDose-prefilled syringegiven by:MLong, LPNABN signed BENCH SCIENTIST, Radha Ciesa BENCH SCIENTIST, Radha Aerosol Treatment On: 19-Aug-2015 Intent (61817)By: Gloria Hammer LPN Solu -Medrol Injection, On: 07-Jun-2015 Intent 125 mg (J2930)By: Liset Comments: [id number] hip, IMDose-prefilled syringegiven by:ASHLY PERALES MD, Naveen Rocephin Injection, 2 Gram On: 07-Jun-2015 Intent (J0696)By: Liset HUTCHINSON, Comments: [id number] grams rocephin IV22G, 1 inchSite: existing lock flushed easily before and after and then d/c for the weekendTolerated: wellno redness or swelling, no s/s infiltrationML, COMMUNICATIONS PROJECT MANAGER Giovani INFUSION, NORMAL SALINE On: 07-Jun-2015 Intent SOLUTION , 250 CC (J7050)By: Giovani Hutchins MD INFUSION, NORMAL SALINE On: 06-Jun-2015 Intent SOLUTION , 250 CC (J7050)By: Giovani Hutchins MD Rocephin Injection, 2 Gram On: 06-Jun-2015 Intent (J0696)By: Liset HUTCHINSON, Comments: [id number] gramsIV Therapy nufcixurj05S, 1 inchSite: R ac - lock flushed nicely and left in place for tomorrowTolerated: well x 1st attemptno redness or swelling, no s/s infiltrationML, COMMUNICATIONS PROJECT MANAGER Giovani Solu -Medrol Injection, On: 06-Jun-2015 Intent 125 mg (J2930)By: Liset Comments: [id number] hip, IMML, Giovani SILVA MD Radiology - ChestBy: Liset On: 06-Jun-2015 Intent Giovani HUTCHINSON Comments: Acute execerbation of COPD?PNA Aerosol Treatment On: 06-Jun-2015 Intent (26778)By: Giovani Hutchins MD Overnight Pulse OX On: 03-Jun-2015 Intent (98796)By: Jackie Christina DO Six Minute Walk Assessment On: 29-May-2015 Intent (46499)By: Jackie Christina DO Overnight Pulse OX On: 29-May-2015 Intent ([id number])By: Jackie Christina DO MAMMOGRAM, SCREENING, BOTH On: 03-May-2015 Intent BREAST ([id number])By: Jackie Christina DO Six Minute Walk Assessment On: 25-Feb-2015 Intent ([id number])By: Jackie Christina DO Overnight Pulse OX On: 25-Feb-2015 Intent ([id number])By: Jackie Christina DO BILATERAL MAMMOGRAMS On: 26-Nov-2014 Intent ([id number])By: Jackie Christina DO EKG ([id number])By: Marquise JHAVERI, On: 26-Nov-2014 Intent Jackie Rondon Comments: ekg showed normal sinus rhythym, normal axis, no acute st/t wave changes twave inversion ant no change Solu -Medrol Injection, On: 08-Aug-2014 Intent 125 mg ([id number])By: Addison Comments: [id number], IMR hip, IMJM, [employer] SALES BENCH SCIENTIST, Dafne Jaime CNP, Dafne Mota Rocephin Injection, 2 Gram On: 08-Aug-2014 Intent ([id number])By: Addison DOUGHERTY, Comments: [id number] grams IV R ac, x 1 attempt - tolerated well Alisha, COMMUNICATIONS PROJECT MANAGER Dafne Jaime CNP, Dafne Mota INFUSION, NORMAL SALINE On: 08-Aug-2014 Intent SOLUTION , 250 CC ([id number])By: Dafne Jaime CNP, CNP, Mary E IV Needle placement On: 07-Aug-2014 Intent ([id number])By: Dafne Jaime CNP Comments: 22G insyte initiated on 1st attempt w/o difficulty, no s/s redness, swelling infiltration, infusing on gravity pole at 38gtts/min, dsg dry intact, catheter removed intact- tolerated well- CTyler COMMUNICATIONS PROJECT MANAGER E Addison DOUGHERTY, Dafne Mota Solu -Medrol Injection, On: 07-Aug-2014 Intent 125 mg ([id number])By: Addison Comments: Lot:[id number]:125mgRoute:imSite:r armGiven By:Dafne Alejandro CNP, CNP, Dafne Mota INFUSION, NORMAL SALINE On: 07-Aug-2014 Intent SOLUTION , 250 CC ([id number])By: Dafne Jaime CNP, CNP, Mary E Rocephin Injection, 2 Gram On: 07-Aug-2014 Intent ([id number])By: Addison LADONNA, Comments: lot # [id number]- 02/26/2017site-R Median antecuberoute-IVdose- 2GCTyler COMMUNICATIONS PROJECT MANAGER Dafne Mota Addison DOUGHERTY Dafne Mota Aerosol Treatment On: 07-Aug-2014 Intent ([id number])By: Addison DOUGHERTY Dafne Comments: ipitropium- tolerated well- CTyler COMMUNICATIONS PROJECT MANAGER E Addison DOUGHERTY Rad[facility]iology - ChestBy: Addison On: 06-Aug-2014 Intent BENCH SCIENTIST, Radha Tgezraalcon DOUGHERTY, Dafne Mota Rocephin Injection, 2 Gram On: 06-Aug-2014 Intent ([id number])By: Addison DOUGHERTY RadhaNakul Jaime CNP Radha Solu -Medrol Injection, On: 06-Aug-2014 Intent 125 mg ([id number])By: Addison DOUGHERTY Dafne Mota Addison ODUGHERTY Dafne Mota Aerosol Treatment On: 31-Jul-2014 Intent ([id number])By: Vanessa Chen MD Solu- Medrol Injection, On: 31-Jul-2014 Intent 125mg (J2930)By: Vanessa Chen MD Eprescribed prescriptions On: 31-Jul-2013 Intent ([id number])By: Ivanna Maddox Overnight Pulse OX On: 10-May-2013 Intent ([id number])By: Jackie Christina DO Spirometry ([id number])By: On: 02-May-2013 Intent Jackie Christina DO Comments: good effort cure mild obst EKG (63223)By: Tan, On: 02-May-2013 Intent Ivanna Comments: ekg showed normal sinus rhythym, normal axis, no acute st/t wave changes no change in twave inversion ant Six Minute Walk Assessment On: 02-May-2013 Intent ([id number])By: Jackie Christina DO Overnight Pulse OX On: 02-May-2013 Intent ([id number])By: Jackie Christina DO Eprescribed prescriptions On: 02-May-2013 Intent (G8553)By: Ivanna Maddox MAMMOGRAM, SCREENING, BOTH On: 18-Apr-2013 Intent BREASTS ([id number])By: Jackie Christina DO Clinical Breast On: 18-Apr-2013 Intent Examination (G0101)By: Ivanna Maddox Solu- Medrol Injection, On: 26-Oct-2012 Intent 125mg ([id number])By: Marquise JHAVERI, Comments: Lot #[id number]-R hip, IMDose-prefilled syringegiven by:VANESA Hosue signed Jackie Rondon Aerosol Treatment On: 26-Oct-2012 Intent ([id number])By: Jackie Christina DO Eprescribed prescriptions On: 26-Oct-2012 Intent (G8553)By: Ivanna Maddox Pulse Oximetry ([id number])By: On: 26-Oct-2012 Intent Ivanna Maddox Comments: 98% Spirometry ([id number])By: On: 06-Sep-2012 Intent Anahi Alxe DO Comments: mild restrictive Aerosol Treatment On: 06-Sep-2012 Intent (77825)By: Abi JHAVERI, Comments: done pt tolerated well. Albuterol 0.83%-- better a/e no wheeze Anahi Solu- Medrol Injection, On: 06-Sep-2012 Intent 125mg (J2930)By: Abi Comments: 2ml given im lt hip lot [id number] 04/11 Anahi JHAVERI Eprescribed prescriptions On: 06-Sep-2012 Intent (G8553)By: Anahi Alex DO Pulse Oximetry ([id number])By: On: 06-Sep-2012 Intent Anahi Alex DO Eprescribed prescriptions On: 22-Aug-2012 Intent (G8553)By: Ivanna Maddox Overnight Pulse OX On: 03-May-2012 Intent ([id number])By: Jackie Christina DO Comments: Patient demonstrates understanding of how to operate macine. Alisha. A Eprescribed prescriptions On: 27-Apr-2012 Intent (G8553)By: Ivanna Maddox Six Minute Walk Assessment On: 01-Apr-2012 Intent ([id number])By: Virgen Real LPN PNEUM VAC ADLT/IMUMNOSPR, On: 18-Mar-2012 Intent SBC/INTRM (17375)By: Marquise Comments: Lot:[id number]:08-10-13Dose:0.5 mLRoute: Site:[facility] By:Jackie Alejandro DO PFT - CompleteBy: Marquise JHAVERI, On: 18-Mar-2012 Intent Jackie Rondon Six Minute Walk Assessment On: 18-Mar-2012 Intent (53332)By: Jackie Christina DO Overnight Pulse OX On: 18-Mar-2012 Intent ([id number])By: Jackie Christina DO IMMUNIZ ADMNIN, 1 VAC, On: 18-Mar-2012 Intent SNGL/COMBO (30690)By: Jackie Christina DO DXA, BONE DENSITY, AXIAL On: 18-Mar-2012 Intent SKELETON ([id number])By: Jackie Christina DO MAMMOGRAM, SCREENING, BOTH On: 18-Mar-2012 Intent BREASTS ([id number])By: Jackie Christina DO CT - ChestBy: Marquise JHAVERI, On: 03-Feb-2012 Intent Jackie A Solu- Medrol Injection, On: 30-Sep-2011 Intent 125mg (J2930)By: Marquise JHAVERI, Comments: Lot #[id number]-right [id number] by: SHIRA Anderson Aerosol Treatment On: 30-Sep-2011 Intent ([id number])By: Jackie Christina DO Pulse Oximetry ([id number])By: On: 30-Sep-2011 Intent Ivanna Maddox Comments: 97% Solu -Medrol Injection, On: 25-Sep-2011 Intent 125 mg (J2930)By: Dafne Jaime CNP, CNP, Mary E Pulse Oximetry ([id number])By: On: 25-Sep-2011 Intent Ciesa Dafne DOUGHERTY Cigreg DOUGHERTY, Dafne Mota FLU VAC, SPLIT, >3 YEARS, On: 01-Jul-2011 Intent INTRAMUSC (12832)By: Comments: Ivanna Minor MAMMOGRAM, SCREENING, BOTH On: 31-Mar-2011 Intent BREASTS (72965)By: Jackie Christina DO Solu -Medrol Injection, On: 31-Mar-2011 Intent 125 mg (J2930)By: Jackie Christina DO Eprescribed prescriptions On: 31-Mar-2011 Intent (G8553)By: Jackie Christina DO Solu- Medrol Injection, On: 16-Dec-2010 Intent 125mg (J2930)By: Marquise JHAVERI, Comments: lot # [id number]- [id number]- 2ML 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 Aerosol Treatment On: 16-Dec-2010 Intent ([id number])By: Jackie Christina DO Comments: tolerated well A Pulse Oximetry ([id number])By: On: 16-Dec-2010 Intent Jackie Christina DO Comments: 96% on room air Eprescribed prescriptions On: 16-Dec-2010 Intent (G8553)By: Jackie Christina DO Pulse Oximetry ([id number])By: On: 15-Jul-2010 Intent Ivanna Maddox Comments: 96% TD Injection , IM On: 04-Jul-2010 Intent (10361)By: Jackie Christina DO Comments: Lot #[id number]-R DltdDose 0.5mlgiven by:UDAY Rondon EKG (17123)By: Tan, On: 04-Jul-2010 Intent Ivanna [facility]iology - Lumbar On: 12-May-2010 Intent SpineBy: Dafne Jaime CNP, CNP, Mary E MAMMOGRAM, SCREENING, BOTH On: 19-Nov-2009 Intent BREASTS ([id number])By: Jackie Christina DO MAMMOGRAM, SCREENING, BOTH On: 07-May-2009 Intent BREASTS (44727)By: Jackie Christina DO EKG (40449)By: Tan On: 07-May-2009 Intent Ivanna Comments: ekg showed normal sinus rhythym, normal axis, no acute st/t wave changes Aerosol Treatment On: 22-Apr-2009 Intent (00002)By: Jermain, Comments: post aerosol tx, pt states i can breath a whole lot better [facility] - Chest- PA and On: 19-Apr-2009 Intent LatBy: Anahi Alex DO Pulse Oximetry ([id number])By: On: 04-Apr-2009 Intent Ciesa BENCH SCIENTIST, Radha Ciesa BENCH SCIENTIST, Radha Aerosol Treatment On: 21-Sep-2008 Intent ([id number])By: Jackie Christina DO CT - ChestBy: Marquise JHAVERI, On: 21-Sep-2008 Intent Jackie A Comments: please also look at right upper quadrant- do stat and call wet read Pulse Oximetry ([id number])By: On: 21-Sep-2008 Intent Ivanna Maddox Comments: 97% Radiology - Lumbar On: 14-Jun-2008 Intent SpineBy: Jackie Christina DO Comments: bone density suggest possible compression at l5 Ultrasound - AortaBy: Fast On: 24-Apr-2008 Intent Jackie JHAVERI A Holter Moniter (75355)By: On: 24-Apr-2008 Intent Jackie Christina DO EKG (46592)By: Marquise JHAVERI, On: 24-Apr-2008 Intent Jackie A Comments: ekg showed normal sinus rhythym, normal axis, no acute st/t wave changes negative precordial t waves == no change DXA, BONE DENSITY, AXIAL On: 24-Apr-2008 Intent SKELETON (70159)By: Jackie Christina DO INFUSION, NORMAL SALINE On: 09-Nov-2007 Intent SOLUTION , 1000CC (Special Coverage Instructions Apply. See MCM: 2049) (J7050)By: Anahi Alex DO IV Needle placement On: 09-Nov-2007 Intent ([id number])By: Abi JHAVERI, Comments: PLACED 22 G R ANTECUBITAL - PT DENY WELLGOOD RETURN Anahi IV Infusion ([id number])By: On: 09-Nov-2007 Intent Anahi Alex DO Nuclear Stress Test/Stress On: 17-Oct-2007 Intent SPECT/AdenosineBy: Jackie Christina DO Nuclear Stress Test/Stress On: 18-Jul-2007 Intent SPECT/AdenosineBy: Jackie Christina DO A EKG ([id number])By: Marquise JHAVERI, On: 18-Jul-2007 Intent Jackie Alcon Comments: ekg showed normal sinus rhythym, normal axis, no acute st/t wave changes has neg twaves on precordium but are unchanged Pneumovax (74740)By: Marquise On: 11-Apr-2007 Intent Jackie JHAVERI EKG (74316)By: Abi JHAVERI, On: 19-Jan-2007 Intent Anahi Comments: NSR NONSPECIFIC CHANGES-- Pulse Oximetry (15509)By: On: 24-Sep-2006 Intent Anahi Alex DO Comments: 98% RA Aerosol Treatment On: 24-Sep-2006 Intent ([id number])By: Abi JHAVERI, Comments: AFTER AEROSOL STILL RHONCHOROUS AND WHEEZY THROUGHOUT BUT MORE AIR EXCHANGE AND PT FEEL IT HELPS Anahi Solu- Medrol Injection, On: 24-Sep-2006 Intent 125mg (J2930)By: Anahi Alex DO Rocephin Injection, 2 Gram On: 24-Sep-2006 Intent (J0696)By: Abi JHAVERI, Comments: IM Anahi Solu- Medrol Injection, On: 23-Sep-2006 Intent 125mg (J2930)By: Abi Comments: Lot #: [id number] date: ount given: 125 mg/2 mlRoute: IMSite given: Left glutealGiven by: Alcon Arrieta LPN DO, [facility] - Chest- PA and On: 23-Sep-2006 Intent LatBy: Anahi Alex DO Aerosol Treatment On: 23-Sep-2006 Intent (30688)By: Abi JHAVERI, Comments: after aerosol- diffuse wheeze and rhonchi lil softer-- more air exchange though Anahi Pulse Oximetry (04599)By: On: 23-Sep-2006 Intent Mast Karen FRAGOSO Comments: 98% PNEUM VAC ADLT/IMUMNOSPR, On: 08-Jul-2006 Intent SBC/INTRM ([id number])By: MARKIE Hayden IMMUNIZ ADMNIN, 1 VAC, On: 08-Jul-2006 Intent SNGL/COMBO (33202)By: MARKIE Hayden Planned Medications INFUSION, NORMAL SALINE SOLUTION , 1000 CC Ordered: 24-Jan-2018 Pending Ciesa BENCH SCIENTIST, Radha Ciesa BENCH SCIENTIST, Radha INFUSION, NORMAL SALINE SOLUTION , 1000 CC Ordered: 21-Aug-2015 Pending Ciesa BENCH SCIENTIST, Radha Ciesa BENCH SCIENTIST, Radha INFUSION, NORMAL SALINE SOLUTION , 250 CC Ordered: 20-Aug-2015 Pending Ciesa BENCH SCIENTIST, Radha Ciesa BENCH SCIENTIST, Radha INFUSION, NORMAL SALINE SOLUTION , 250 CC Ordered: 07-Jun-2015 Pending Liset HUTCHINSON, Giovani INFUSION, NORMAL SALINE SOLUTION , 250 CC Ordered: 08-Aug-2014 Pending Ciesa BENCH SCIENTIST, Radha Ciesa BENCH SCIENTIST, Radha INFUSION, NORMAL SALINE SOLUTION , 250 CC Ordered: 07-Aug-2014 Pending Ciesa BENCH SCIENTIST, Radha Ciesa BENCH SCIENTIST, Radha INFUSION, NORMAL SALINE SOLUTION , 250 CC Ordered: 06-Jun-2015 Pending Giovani Hutchins MD INJECTION, CEFTRIAXONE SODIUM, PER 250 MG Ordered: 21-Aug-2015 Pending Ciesa BENCH SCIENTIST, Radha Ciesa BENCH SCIENTIST, Radha INJECTION, CEFTRIAXONE SODIUM, PER 250 MG Ordered: 07-Jun-2015 Pending Liset HUTCHINSON, Giovani INJECTION, CEFTRIAXONE SODIUM, PER 250 MG Ordered: 06-Jun-2015 Pending Giovani Hutchins MD INJECTION, CEFTRIAXONE SODIUM, PER 250 MG Ordered: 19-Aug-2015 Pending Ciesa BENCH SCIENTIST, Radha Ciesa BENCH SCIENTIST, Radha INJECTION, CEFTRIAXONE SODIUM, PER 250 MG Ordered: 08-Aug-2014 Pending Ciesa BENCH SCIENTIST, Radha Ciesa BENCH SCIENTIST, Radha INJECTION, CEFTRIAXONE SODIUM, PER 250 MG Ordered: 20-Aug-2015 Pending Ciesa BENCH SCIENTIST, Radha Ciesa BENCH SCIENTIST, Radha INJECTION, CEFTRIAXONE SODIUM, PER 250 MG Ordered: 07-Aug-2014 Pending Ciesa BENCH SCIENTIST, Radha Ciesa BENCH SCIENTIST, Radha INJECTION, CEFTRIAXONE SODIUM, PER 250 MG Ordered: 06-Aug-2014 Pending Ciesa BENCH SCIENTIST, Radha Ciesa BENCH SCIENTIST, Rdaha INJECTION, CEFTRIAXONE SODIUM, PER 250 MG Ordered: 18-Nov-2016 Pending Ciesa BENCH SCIENTIST, Radha Ciesa BENCH SCIENTIST, Radha INJECTION, KETOROLAC TROMETHAMINE, PER 15 MG Ordered: 24-Mar-2017 Pending Ciesa BENCH SCIENTIST, Radha Ciesa BENCH SCIENTIST, Radha INJECTION, KETOROLAC TROMETHAMINE, PER 15 MG Ordered: 07-Apr-2017 Pending Ciesa BENCH SCIENTIST, Radha Ciesa BENCH SCIENTIST, Radha INJECTION, KETOROLAC TROMETHAMINE, PER 15 MG Ordered: 12-Jul-2017 Pending Ciesa BENCH SCIENTIST, Radha Ciesa BENCH SCIENTIST, Radha INJECTION, METHYLPREDNISOLONE SODIUM SUCCINATE, UP TO 125 MG Ordered: 18-Nov-2016 Pending Ciesa BENCH SCIENTIST, Radha Ciesa BENCH SCIENTIST, Radha INJECTION, METHYLPREDNISOLONE SODIUM SUCCINATE, UP TO 125 MG Ordered: 31-Mar-2011 Pending Fast DO, Jackie A INJECTION, METHYLPREDNISOLONE SODIUM SUCCINATE, UP TO 125 MG Ordered: 21-Aug-2015 Pending Ciesa BENCH SCIENTIST, Radha Ciesa BENCH SCIENTIST, Radha INJECTION, METHYLPREDNISOLONE SODIUM SUCCINATE, UP TO 125 MG Ordered: 25-Sep-2011 Pending Ciesa BENCH SCIENTIST, Radha Ciesa BENCH SCIENTIST, Radha INJECTION, METHYLPREDNISOLONE SODIUM SUCCINATE, UP TO 125 MG Ordered: 06-Aug-2014 Pending Ciesa BENCH SCIENTIST, Radha Ciesa BENCH SCIENTIST, Radha INJECTION, METHYLPREDNISOLONE SODIUM SUCCINATE, UP TO 125 MG Ordered: 07-Jun-2015 Pending Liset HUTCHINSON, Giovani INJECTION, METHYLPREDNISOLONE SODIUM SUCCINATE, UP TO 125 MG Ordered: 19-Aug-2015 Pending Ciesa BENCH SCIENTIST, Radha Ciesa BENCH SCIENTIST, Radha INJECTION, METHYLPREDNISOLONE SODIUM SUCCINATE, UP TO 125 MG Ordered: 31-Jul-2014 Pending Vanessa Chen MD M INJECTION, METHYLPREDNISOLONE SODIUM SUCCINATE, UP TO 125 MG Ordered: 30-Sep-2011 Pending Fast DO, Jackie A INJECTION, METHYLPREDNISOLONE SODIUM SUCCINATE, UP TO 125 MG Ordered: 06-Jun-2015 Pending Liset HUTCHINSON, Giovani INJECTION, METHYLPREDNISOLONE SODIUM SUCCINATE, UP TO 125 MG Ordered: 08-Aug-2014 Pending Ciesa BENCH SCIENTIST, Radha Ciesa BENCH SCIENTIST, Radha INJECTION, METHYLPREDNISOLONE SODIUM SUCCINATE, UP TO 125 MG Ordered: 06-Sep-2012 Pending Abi JHAVERI, Anahi INJECTION, METHYLPREDNISOLONE SODIUM SUCCINATE, UP TO 125 MG Ordered: 07-Aug-2014 Pending Ciesa BENCH SCIENTIST, Radha Ciesa BENCH SCIENTIST, Radha INJECTION, METHYLPREDNISOLONE SODIUM SUCCINATE, UP TO 125 MG Ordered: 26-Oct-2012 Pending Fast DO, Jackie A INJECTION, METHYLPREDNISOLONE SODIUM SUCCINATE, UP TO 125 MG Ordered: 20-Aug-2015 Pending Ciesa BENCH SCIENTIST, Radha Ciesa BENCH SCIENTIST, Radha INJECTION, METHYLPREDNISOLONE SODIUM SUCCINATE, UP TO [...] BLD CNT, COMPL CBC W/AUTO DIFF WBC (03565) Indication: Benign essential hypertension Other and unspecified hyperlipidemia : DISCONTINUED - LIPID PANEL (11851) Indication: Other and unspecified hyperlipidemia Hypothyroidism : DISCONTINUED - TSH (49744) Indication: Hypothyroidism Other and unspecified hyperlipidemia : DISCONTINUED - LIPID PANEL ([id number]) Indication: Other and unspecified hyperlipidemia DIABETES MELLITUS WITHOUT MENTION OF COMPLICATION; TYPE II OR UNSPECIFIED TYPE, NOT STATED UNCONTROLLED : DISCONTINUED - MICROALBUMIN: CREATININE RATIO (64963) AND (05478) Indication: DIABETES MELLITUS WITHOUT MENTION OF COMPLICATION; TYPE II OR UNSPECIFIED TYPE, NOT STATED UNCONTROLLED DIABETES MELLITUS WITHOUT MENTION OF COMPLICATION; TYPE II OR UNSPECIFIED TYPE, NOT STATED UNCONTROLLED : DISCONTINUED - METABOLIC PANEL, COMPREHENSIVE (01950) Indication: DIABETES MELLITUS WITHOUT MENTION OF COMPLICATION; TYPE II OR UNSPECIFIED TYPE, NOT STATED UNCONTROLLED DIABETES MELLITUS WITHOUT MENTION OF COMPLICATION; TYPE II OR UNSPECIFIED TYPE, NOT STATED UNCONTROLLED : DISCONTINUED - CBC WITH MANUAL DIFF (97798) Indication: DIABETES MELLITUS WITHOUT MENTION OF COMPLICATION; TYPE II OR UNSPECIFIED TYPE, NOT STATED UNCONTROLLED DIABETES MELLITUS WITHOUT MENTION OF COMPLICATION; TYPE II OR UNSPECIFIED TYPE, NOT STATED UNCONTROLLED : DISCONTINUED - METABOLIC PANEL, COMPREHENSIVE (83142) Indication: DIABETES MELLITUS WITHOUT MENTION OF COMPLICATION; [...] mellitus, uncontrolled : DISCONTINUED - LIPID PANEL (30274) Indication: Type 2 or unspecified type diabetes [...] The symptoms occur con End: 23-Dec-2017 11:46 jaxony. The patient describes this as unchanged. Note [...] ,supplemental vitamins and low salt diet. The va dical issues the patient is following up [...] for Flu like symptoms: Son diagnosed with [id number] Diagnosis: BRONCHITIS, NOT SPECIFIED ACUTE OR CHRONIC [...] he wants her to do exercise at [employer] and has her set up for activiity [...] : (180's). 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
--- OUTSIDE RECORDS SUMMARY | 2018-09-20 12:11 | XMS RPT_ITS ---
:1950 Author Organization OHIP Care Team Providers Name Role Phone TgDafne garza Attending Unavailable TgezraaDafne Referring Unavailable Ciesa Dafne Consulting Unavailable Ciezraa Dafne Attending Unavailable Ciezraa, Dafne Referring Unavailable Curtisa, Dafne Primary Care Unavailable Jordy Lion D.O. Attending Unavailable Tgezraa Dafne Referring Unavailable CiesaDafne Attending Unavailable Ciesa, Dafne Referring Unavailable Ciesa, Dafne Primary Care Unavailable Ciesa Dafne Attending Unavailable Ciesa, Dafne Referring Unavailable Ciesa, Dafne Primary Care Unavailable Ciesa, Dafne Primary Care Unavailable Tyson Hernandez Attending Unavailable Ciesa, Dafne Primary Care Unavailable Ivanna Bae Attending Unavailable Yoselin Oconnell PROCESS STRIPPER-C Attending Unavailable Ciezraa, Dafne Primary Care Unavailable Ragini Lyons Attending Unavailable Yoselin Oconnell PROCESS STRIPPER-C Attending Unavailable Yoselin Oconnell PROCESS STRIPPER-C Referring Unavailable Curtisa Dafne Primary Care Unavailable PROBLEMS PROBLEMS DATE TYPE CONDITION / CODE ATTENDING STATUS SOURCE 07/19/2018 Unknown Z78.0 - Curtisosorio Dafne Active [place] Asymptomatic [facility] Hospital Z78.0(ICD-10) Repository 07/19/2018 Unknown Z12.31 - Encounter Dafen Jaime Active [place] for screening [facility] mammogram for Hospital malignant neoplasm Repository of breast / Z12.31(ICD-10) 05/24/2018 Unknown J44.9 - Chronic Dafne Jaime Active [place] obstructive Community pulmonary disease, Hospital unspecified / Repository J44.9(ICD-10) 01/10/2018 Unknown R11.2 - Nausea Ivanna Bae Active [place] with vomiting, Community unspecified / Hospital R11.2(ICD-10) Repository PROCEDURES PROCEDURES No Procedure Records FoundRESULTS RESULTS DEXA BONE DENSITY Observed: 07/19/2018 Status: F Source: [place] STUDY 9:57 AM [facility] REPOSITORY [facility] Imaging Services [address] [place] [address] Dexa Bone Density Study MR#: [id number] Acct: [id number] Name: IMANI BLAKE Rep #: [id number] : 1950 F 67 From: Leobardo Mckenzie MD PCP: Dafne Jaime NP Status: REG CLI Study: Dexa Bone Density Study Date of Exam: 07/19/18 Exam# [id number] Ordering Dr: Dafne Jaime PROCESS STRIPPER-C STUDY: DUAL ENERGY X-RAY ABSORPTIOMETRY / DXA REASON FOR EXAM: Female, 67 years old. The patient is postmenopausal. Loss of height. TECHNIQUE: Bone Mineral Density (BMD) measurements of lumbar spine and bilateral hips were obtained. COMPARISON: Comparison is made with prior study dated April 12, 2012. FINDINGS: Lumbar Spine (L1-L4): g/cm2 (0.997) / T-score (-1.7) / Z-score (-0.1) Findings are suggestive of osteopenia with a moderate fracture risk. Left Femur Total: g/cm2 (1.033) / T-score (0.2) / Z-score (1.4) Left Femoral Neck: g/cm2 (0.930) / T-score (-0.8) / Z- score (0.7) Right Femur Total: g/cm2 (1.108) / T-score (0.8) / Z- score (2.0) Right Femoral Neck: g/cm2 (0.896) / T-score (-1.0) / Z-score (0.5) The T-Scores on the most recent prior examination were: Lumbar Spine (L1-L4): There has been worsening of bone density since the previous examination. Left Femur Total: which represents a worsening of 11%. Right Femur Total: which represents a worsening of 7.8%. BD/Dexa Bone Density Study IMPRESSION: The patient is considered osteopenic as outlined below according to World Arun Organization (WHO) criteria with a moderate fracture risk. There has been worsening of bone density since the previous examination. Reference Information: The T-score is the number of standard deviations above or below the standard which is normal for young adults at their peak bone mineral density. The World Health Organization (WHO) interprets the T-scores as follows: Above -1 Normal bone density Between -1 and -2.5 Osteopenia Equal to / or below -2.5 Osteoporosis As a practical clinical guideline, osteopenia may be graded as follows: Mild -1 through -1.5 Moderate -1.6 through -2.0 Severe -2.1 through -2.4 The Z-score is the number of standard deviations above or below age-matched controls. A Z-score of less than -1.5 would be considered abnormal. References: 1. NIH Osteoporosis and Related Bone Diseases http://www.osteo.org 2. International Society for Clinical Densitometry http://www.iscd.org 3. National Osteoporosis Foundation http://www.nof.org Electronically Signed: Leobardo Mckenzie MD at 11:25 EST Tel [phone], Service support , CC: Dafne Jaime NP Materials Scheduler: Signed SCREENING MAMM (CAD), Observed: 07/19/2018 Status: F Source: [place] 9:[address] [facility] REPOSITORY [facility] Imaging Services [address] [place] [address] SCREENING MAMM (CAD), BILAT MR#: [id number] Acct: [id number] Name: IMANI BLAKE Rep #: [id number] : 1950 F 67 From: Leobardo Mckenzie MD PCP: Dafne Jaime NP Status: REG CLI Study: SCREENING MAMM (CAD), BILAT Date of Exam: 07/19/18 Exam# [id number] Ordering Dr: Dafne Jaime PROCESS STRIPPER-C MAMMOGRAPHY - BILATERAL SCREENING REASON FOR EXAM: Female, 67 years old. Routine annual screening examination. PERTINENT HISTORY: Non-contributory. TECHNIQUE: Digital bilateral breast eris (3D mammographic acquisition) in the CC and MLO projections. 2-D mediolateral oblique (MLO) and craniocaudad (CC) views of both breasts were obtained. CAD: Full Field Digital Mammography with Computer Added Detection was performed. COMPARISON: Comparison is made with prior examination dated May 05, 2013 and April 12, 2012. FINDINGS: Breast Composition: There are scattered areas of fibroglandular density. There are no dominant masses or suspicious calcifications. Stable 5.5 mm well-defined nodule with a central fatty hilum in the mid slightly outer aspect of the right breast. This most likely represents a small lymph node. No other significant abnormalities are identified. There has been no significant change since the prior study. BI/SCREENING MAMM (CAD), BILAT IMPRESSION: Stable bilateral screening mammogram. Yearly follow-up mammogram recommended. (A) ASSESSMENT CATEGORY: BIRADS Category 2: Benign. A letter regarding these results will be sent to the patient by the facility within 30 days. Approximately 10% of breast cancers are not detected by mammography. A normal mammogram should not delay biopsy of a clinically suspicious abnormality. [id number] Electronically Signed: Leobardo Mckenzie MD at 12:35 EST Tel [phone], Service support , CC: Dafne Jaime NP Materials Scheduler: Signed CHEST WITHOUT Observed: 05/06/2018 Status: F Source: [place] CONTRAST 2:[address] [facility] REPOSITORY [facility] Imaging Services [address] [place] [address] Chest without Contrast MR#: [id number] Acct: [id number] Name: IMANI BLAKE Rep #: [id number] : 1950 F 67 From: Marine Tolliver MD PCP: Dafne Jaime NP Status: REG CLI Study: Chest without Contrast Date of Exam: 05/06/18 Exam# [id number] Ordering Dr: Dafne Jaime PROCESS STRIPPER-C STUDY: LOW DOSE CT LUNG CANCER SCREENING REASON FOR EXAM: Female, 67 years old. OBSTRUCTIVE PULMONARY DISEASE, PT STATED HX OF SMOKING UP TO 4 PACKS PER DAY X40+ years, QUIT [id number] AGO, COPD, ASTHMA RADIATION DOSAGE (If Supplied By Facility): CTDIvol = ( 3.40 ) mGy, DLP = ( 108.91 ) mGycm TECHNIQUE: No contrast was administered. Low dose technique was utilized (average mAS-38 and kVp 120). 1.25 mm axial source images with a slice interval of 1.25- mm were reconstructed in lung windows. 2.5 mm axial source images with a slice interval of 2.5-mm were reconstructed in lung windows. 5.0 mm axial source images with a slice interval of 5.0-mm were reconstructed in soft tissue windows. Nodule measured using lung windows on PACS and/or independent workstation with automated measurement of minimum and maximum diameter. Nodule measurement reported as average diameter rounded [...] Recommendation: Routine screening CT scan in one year. IMPORTANT NOTES FOR USE: ACR Lung-RADS Version 1.0 Assessment Categories Release Date: October 23, 2013 Category: Coded 0-4 bases on nodule(s) with highest degree of suspicion. Negative screen is defined as categories 1 and 2; a positive screen is defined as categories 3 and 4. Category 3 and 4A nodules that are unchanged on interval CT should be coded as category 2, and individuals returned to screening in 12 months. Category 4X: Category 3 or 4 nodules with additional imaging findings that increase the suspicion of lung cancer, such as spiculation, GGN that doubles in size in 1 year, enlarged lymph notes, etc. Category Modifiers: S (significant finding unrelated to lung cancer) and C (prior history of treated lung cancer) may be added to the 0-4 Lung-RADS Electronically Signed: Marine Tolliver MD at 8:09 EST Tel , Service support , CC: Dafne Jaime NP Materials Scheduler: Signed SPIROMETRY PFT TESTING Observed: 05/05/2018 Status: F Source: [place] 12:[address] [facility] REPOSITORY [facility] Pulmonary Services/Neurology [facility] [place] [place] [address] MR#: [id number] Acct: [id number] Name: IMANI BLAKE Rep #: [id number] : 1950 67 From: Jordy Lion DO Referring Dr: Dafne Jaime NP Status: REG CLI Ordering Dr: Date: Location: [facility] Sex: F C Spirometry PFT Testing Spirometry PFT Testing: INTRODUCTION: The patient is a 67-year-old female that presents for spirometry testing secondary to a diagnosis of shortness of breath. Respiratory therapy reports good patient effort. Bronchodilators were used during testing. INTERPRETATION: Forced expiration spirometry demonstrates no evidence of a large airways obstructive ventilatory defect. There was no significant response to aerosolized bronchodilators. Spirograms are of good quality and plateau normally. IMPRESSION: Grossly normal spirometry testing. 05/05/18 1258 <Electronically signed by Jordy Lion DO> Date Jordy Lion DO CC: Date Dictated: 05/05/18 1257 Date Transcribed: 05/05/18 1257 Materials Scheduler: DB Signed 12 LEAD ELECTROCARDIOGRAM Observed: 01/25/2018 Status: F Source: [place] 3:09 PM [facility] Cardiovascular Services [address] [place] [address] 12 Lead EKG 01/22/184 MR#: [id number] Acct: [id number] Name: IMANI BLAKE Rep #: [id number] : 1950 67 From: Ramiro Moreno MD [...] sinus rhythm Normal ECG Confirmed by RAMIRO MORENO MD ([id number]), online content editor RUBI VILLATORO ([id number]) on 01/25/2018 3:09:19 PM Referred By: Confirmed By:RAMIRO MORENO MD 01/25/18 1509 Date Ramiro Moreno MD CC: Dafne Jaime NP; Tyson Hernandez DO Signed EMERGENCY DEPARTMENT Observed: 01/24/2018 Status: F Source: [place] SUMMARY 12:[address] [facility] REPOSITORY [facility] Medical Records Department [address] [place] [address] Emergency Department Summary 01/22/18 2318 MR#: [id number] Acct: [id number] Name: IMANI BLAKE Rep #: [id number] : 1950 67 From: Tyson Hernandez DO PCP: Dafne Jaime NP Status: DEP ER - ER Visit Summary Date of Service: 01/22/18 Chief Complaint: Headache and vomiting History of Present Illness: The patient is [...] Squad was called. Patient notes her blood pressure is not controlled and she has been working with her doctor for this. Physical Examination: 195/89 temperature 99.4 heart rate of 99 respirations are 18 pulse ox 94% on 2 L Gen: Well-nourished well-developed patient is retching Head: Normocephalic atraumatic Eyes: Perrl EOMI ENT: TMs clear no rhinorrhea moist mucous membranes Neck: Supple no lymphadenopathy no JVD nontender CVS: Regular rate rhythm no murmurs normal S1-S2 Respiratory: No distress clear to auscultation bilaterally chest nontender Abdomen: Soft nontender nondistended normal bowel sounds no masses Back: Nontender Extremity: Nontender no edema Skin: Normal color no rash Neuro: alert orientated 3 CN II-XII intact normal strength sensation reflexes cerebellar Test Results: CBC chemistries liver lipase negative. EKG sinus rhythm rate of 93 Emergency Department Course and Treatment: Patient received IV fluids Zofran Toradol and hydralazine. Her blood pressure is down. I think the patient is safe for discharge. Her headache is improved. She needs to speak with her doctor regarding blood pressure control. Impression: 1. Headache 2. Hypertension This note was generated with [employer] software. It may contain incorrect words, spelling, and punctuation that were not noted in review of the chart prior to signing ED Disposition - Plan for ED Patient: Disposition: Home or Assisted Living Chief Complaint: Nausea/Vomiting Instructions: ED Hypertension Conf Out Of Control, [...] your Primary Care Provider. Call [facility] ([phone]) or report to the closest Emergency Room. Call 911 if necessary. 01/24/18 0026 <Electronically signed by Tyson Hernandez DO> Date Tyson Hernandez DO Cosigner Signature (If Indicated): Date CC: Dafne Jaime NP URINALYSIS, COMPLETE Collected: 01/22/2018 Status: F Source: [place] 9:[address] [facility] REPOSITORY Order Comment: How was Urine Obtained? OPHTHALMIC ASSISTANT TO SPECIFY TYPE CODE TESTS RESULT OUT OF RANGE REFERENCE UNITS LAB L400.3000 Yellow COLOR Normal Yellow LAB L400.3050 Clear Normal CLARITY Clear LAB L400.3200 Normal mg/dl Normal GLUCOSE, UR Normal LAB L400.3300 Negative mg/dL Normal BILIRUBIN URINE Negative LAB L400.3400 Negative mg/dl High 15 KETONE UR LAB L400.3465 1.002-1.030 Normal SP.GR. DIPSTX 1.015 LAB L400.3550 5.0 - 8.0 pH UR Normal 6.0 LAB L400.3600 Negative mg/dl PROT Normal DIPSTX Negative LAB L400.3700 Normal mg/dl Normal UROBILI Normal LAB L400.3750 Negative Normal NITRITE UR Negative LAB L400.3780 Negative /ul Normal OCCULT BLOOD-UR Negative LAB L400.3800 Negative /ul LEUK Normal ESTERASE Negative LAB L400.4050 0-5 /hpf WBC Normal 0-5 SEEN LAB L400.4100 0-5 /hpf 0 Normal RBC-UA SEEN LAB L400.4150 5-10 /hpf SQUAM 0 Normal EPI SEEN LAB L400.4300 None Seen /hpf 0 Normal BACTERIA SEEN LAB L400.4350 <or=2+ /hpf 0 Normal MUCUS, URINE SEEN Performed By: #### L400.0001 #### [facility] [address] [place], [address] COMPREHENSIVE METABOLIC Collected: 01/22/2018 Status: F Source: [facility] 8:[address] [facility] REPOSITORY TYPE CODE TESTS RESULT OUT OF RANGE REFERENCE UNITS LAB L501.0100 74-106 mg/dL High GLU 203 Result Comment: Glucose result greater than or equal to 200 mg/dL suggests DIABETES MELLITUS per A.D.A. criteria. Please note revised GLUCOSE reference range effective 2017. LAB L501.1000 7-18 mg/dL Normal BUN 13 LAB L501.1100 0.55-1.02 mg/dL Normal CREAT,SERUM 0.77 Result Comment: The validity of the calculated GFR AND GFRAA in patients over 70 years has not been determined. Clinical correlation is essential. LAB L501.1110 >60 mL/min Normal EST GFR 80 Result Comment: Non- GFR Calc LAB L501.1115 >60 mL/min Normal EST GFR - AA 97 Result Comment: GFR Calc LAB L501.1255 ml/min Normal Estimated CRCL 68.19 LAB L501.1300 10-20 RATIO Normal BUN/CRE 16.9 LAB L501.1500 6.4-8. g/dL Normal 2 T PROT 8.1 LAB L501.1800 3.2-5. g/dL Normal 0 ALB 3.7 LAB L501.1950 2.2-4. g/dL High 2 GLOB 4.4 LAB L501.2000 0.9-2. RATIO Low 4 A/G 0.8 LAB L501.2200 8.5-10 mg/dL High .1 CA 10.5 LAB L501.4100 15-37 U/L Normal AST 21 LAB L501.4305 45-117 U/L High ALK P 122 LAB L501.4405 13-56 U/L Normal ALT 24 LAB L501.4600 0.20-1 mg/dL Normal .00 T BILI 0.60 LAB L501.5300 136-14 mmol/L Normal 5 NA 136 LAB L501.5600 3.5-5. mmol/L Normal 1 K 3.8 LAB L501.5900 98-107 mmol/L Normal CL 102 LAB L501.6100 21.0-3 mmol/L Normal 2.0 CO2 26.0 LAB L501.6200 5-15 Normal GAP 8 Performed By: #### L500.4050, L501.2450, L501.4010 #### [facility] [address] [place], [place], [address] LIPASE Collected: 01/22/2018 Status: F Source: [place] 8:[address] [facility] REPOSITORY TYPE CODE TESTS RESULT OUT OF RANGE REFERENCE UNITS LAB L501.2450 73-393 U/L Normal LIPASE 346 Performed By: #### L500.4050, L501.2450, L501.4010 #### [facility] [address] [place], [address] TROPONIN-I Collected: 01/22/2018 Status: F Source: [place] 8:04 [facility] REPOSITORY TYPE CODE TESTS RESULT OUT OF RANGE REFERENCE UNITS LAB L501.4010 <0.045 ng/mL Normal < 0.015 TROPONIN-I Result Comment: TROPONIN-I EXPECTED VALUES <0.045 Negative 0.045 - 0.590 Consistent with Cardiac Damage > OR = 0.600 Critical Value Not every elevated troponin is indicative of VT. These values should be used with clinical judgement in examining the patient's clinical picture for diagnosis. To establish a diagnosis of VT versus myocardial injury, there must be a demonstrated rise and/or fall in the troponin values, in addition to ischemic symptoms, EKG changes, new regional wall motion abnormality, and/or angiographical evidence. PLEASE NOTE: REFERENCE RANGES EDITED 17 Performed By: #### L500.4050, L501.2450, L501.4010 #### [facility] [address] [facility] [address] CBC W/DIFF, AUTOMATED Collected: 01/22/2018 Status: F Source: [place] 8:[address] [facility] REPOSITORY TYPE CODE TESTS RESULT OUT OF RANGE REFERENCE UNITS LAB L100.1000 4.4-11.0 K/mm3 Normal WBC 9.7 LAB L100.1200 4.2-5.4 M/mm3 Normal RBC 4.70 LAB L100.1300 12.0-15.0 g/dl Normal HGB 14.0 LAB L100.1400 37-47 % Normal HCT 42.0 LAB L100.1500 81-99 fL Normal MCV 89.4 LAB L100.1600 27.0-32.0 pg Normal MCH 29.8 LAB L100.1700 32-36 g/gl Normal MCHC 33.3 LAB L100.1810 11.6-14.6 % Normal RDW CV 12.8 LAB L100.1820 35.1-43.9 fl Normal RDW SD 41.6 LAB L100.1900 150-450 K/mm3 Normal PLT 233 LAB L100.2000 6.2-12.0 fl Normal MPV 11.1 LAB L100.2100 47-70 % High NEUT% 90.8 LAB L100.2200 19-41 % Low LY% 6.1 LAB L100.2300 0-10 % Normal MONO% 2.9 LAB L100.2400 0-5 % Normal EO% 0.0 LAB L100.2500 0-1 % Normal BASO% 0.2 LAB L100.2550 0.0-0.9 % Normal IM GRAN % 0.000 Result Comment: IG% - Immature Granulocytes (promyelocytes, myelocytes and metamyelocytes) > 1% indicates that a LEFT SHIFT is Present. LAB L100.2620 2.0-7.7 X10 3/uL High Absolute Neut 8.8 LAB L100.2720 0.83-4.51 X10 3/ul Low Absolute Lymph 0.59 LAB L100.4500 Normal SMEAR COMMENT SCANNED LAB L100.5500 ADEQ Normal PLT EST ADEQUATE Performed By: #### L100.0100 #### [facility] [address] [place], [address] 12 LEAD ELECTROCARDIOGRAM Observed: 12/30/2017 Status: F Source: [place] 3:[address] [facility] REPOSITORY [facility] Cardiovascular Services [address] [place] [address] 12 Lead EKG 12/25/17 1326 MR#: [id number] Acct: [id number] Name: IMANI BLAKE Rep #: [id number] : 1950 67 From: Ramiro Moreno MD Attending Dr: Status: DEP ER Ordering Dr: Ivanna Bae MD Date: 12/25/17 Location: ED Sex: F C Admitted: Test Reason : GEN ILLNESS Blood Pressure : / mmHG Vent. Rate : 072 BPM Atrial Rate : 072 BPM P-R Int : 156 ms QRS Dur : 092 ms QT Int : 424 ms P-R-T Axes : 020 -06 044 degrees QTc Int : 464 ms Normal sinus rhythm Normal ECG Confirmed by RAMIRO MORENO MD ([id number]), online content editor RUBI VILLATORO ([id number]) on 12/30/2017 3:06:27 PM Referred By: Yoselin Oconnell Confirmed By:RAMIRO MORENO MD 12/30/17 1506 Date Ramiro Moreno MD CC: Dafne Jaime NP; Ivanna Bae MD Signed EMERGENCY DEPARTMENT Observed: 12/25/2017 Status: F Source: [place] SUMMARY 4:[address] [facility] REPOSITORY [facility] Medical Records Department [address] [place] [address] Emergency Department Summary 12/25/17 1538 MR#: [id number] Acct: [id number] Name: IMANI BLAKE Rep #: [id number] : 1950 67 From: Ivanna Bae MD PCP: Dafne Jaime NP Status: DEP ER - ER Visit Summary Date of Service: 12/25/17 Chief Complaint: Nausea, vomiting, diarrhea, headache History of Present Illness: The patient [...] She was sent for a CT scan. This is reviewed and did not show any [...] distress. She is nontoxic appearing. Head neck examination is unremarkable. Heart is regular rate and rhythm. Lung sounds are diminished at bilateral bases. No wheezes or rhonchi noted. Abdomen is soft and nontender. Hypoactive bowel sounds are noted throughout. Test Results: Portable chest x-ray shows cardiomegaly [...] IV fluids, Toradol, and Zofran. On repeat evaluation she reports her headache is significantly improved. Her nausea is also improved. Stool studies were ordered but patient has not been able to provide a sample while here. Repeat vital signs include a blood pressure 152/68 heart rate is 72. Her pulse ox is 95% on room air. At this time patient be discharged with a prescription for Zofran ODT. She is to follow-up with her primary care physician as soon as possible. Treatment Plan: [] Disposition: Discharge Impression: 1. Vomiting, improved 2. Cephalgia, improved This note was generated with [employer] dictation software. It may contain incorrect words, spelling, and punctuation that were not noted in review of the chart prior to signing ED Disposition - Plan for ED Patient: Chief Complaint: Nausea/Vomiting/Diarrhea Referrals: Dafne Jaime [Primary Care Provider] - What to do if you have Problems For any increased pain, shortness of breath, bleeding, nausea or vomiting, chest pain, or any unexpected problems, contact your Primary Care Provider. Call [facility] ([phone]) or report to the closest Emergency Room. Call 911 if necessary. 12/25/17 1636 <Electronically signed by Ivanna Bae MD> Date Ivanna Bae MD Cosigner Signature (If Indicated): Date CC: Dafne Jaime NP DISCHARGE INSTRUCTION Observed: 12/25/2017 Status: F Source: [place] 3:[address] [facility] REPOSITORY [facility] Medical Records Department [address] [place] [address] Discharge Instruction 12/25/17 1542 MR#: [id number] Acct: [id number] Name: IMANI BLAKE Rep #: [id number] : 1950 67 From: Ivanna Bae MD PCP: Dafne Jaime NP Status: REG ER ED Disposition - Plan for ED Patient: Disposition: Home or Assisted Living Chief Complaint: Nausea/Vomiting/Diarrhea Instructions: ED Nausea Vomiting, ED Cephalgia Unspecified Prescriptions: Ondansetron [Zofran Odt] 4 mg PO Q8H PRN PRN #10 tablet PRN Reason: Nausea Referrals: Dafne Jaime [Primary Care Provider] - As soon as possible What to do if you have Problems For any increased pain, shortness of breath, bleeding, nausea or vomiting, chest pain, or any unexpected problems, contact your Primary Care Provider. Call [facility] ([phone]) or report to the closest Emergency Room. Call 911 if necessary. 12/25/17 1543 <Electronically signed by Ivanna Bae MD> Date Ivanna Moser Signature (If Indicated): Date CC: Dafne Jaime PROCESS STRIPPER CARBOXYHEMOGLOBIN FRAC (CO) Collected: Status: F Source: [place] 12/25/2017 1:[address] [facility] REPOSITORY TYPE CODE TESTS RESULT OUT OF RANGE REFERENCE UNITS LAB L511.0130 0.0-1.5 % High COHb 2.1 Result Comment: * NON-SMOKER RANGE 1.6 - 5.0% * LIGHT SMOKER RANGE 5.1 - 9.0% * HEAVY SMOKER RANGE Performed By: #### L511.0130 #### [facility] [address] [place], [address] URINALYSIS, COMPLETE Collected: 12/25/2017 Status: F Source: [place] 1:[address] [facility] REPOSITORY Order Comment: Order Date: 12/25/17 How was Urine Obtained? CLEAN CATCH TYPE CODE TESTS RESULT OUT OF RANGE REFERENCE UNITS LAB L400.3000 Yellow COLOR Normal Yellow LAB L400.3050 Clear Normal CLARITY Clear LAB L400.3200 Normal mg/dl High GLUCOSE, UR 1000 LAB L400.3300 Negative mg/dL Normal BILIRUBIN URINE Negative LAB L400.3400 Negative mg/dl Normal KETONE UR Negative LAB L400.3465 1.002-1.030 Normal SP.GR. DIPSTX 1.010 LAB L400.3550 5.0 - 8.0 pH UR Normal 6.0 LAB L400.3600 Negative mg/dl High PROT 15 DIPSTX LAB L400.3700 Normal mg/dl Normal UROBILI Normal LAB L400.3750 Negative Normal NITRITE UR Negative LAB L400.3780 Negative /ul Normal OCCULT BLOOD-UR Negative LAB L400.3800 Negative /ul High LEUK 25 ESTERASE LAB L400.4050 0-5 /hpf WBC 0 Normal SEEN LAB L400.4100 0-5 /hpf Normal RBC-UA 0-5 SEEN LAB L400.4150 5-10 /hpf SQUAM Normal EPI 0-5 SEEN LAB L400.4300 None Seen /hpf 0 Normal BACTERIA SEEN LAB L400.4350 <or=2+ /hpf 0 Normal MUCUS, URINE SEEN Performed By: #### L400.0001 #### [facility] [address] [place], [place], [id number] CBC W/DIFF, AUTOMATED Collected: 12/25/2017 Status: F Source: [place] 1:[address] [facility] REPOSITORY TYPE CODE TESTS RESULT OUT OF RANGE REFERENCE UNITS LAB L100.1000 4.4-11.0 K/mm3 High WBC 12.9 LAB L100.1200 4.2-5.4 M/mm3 Normal RBC 4.73 LAB L100.1300 12.0-15.0 g/dl Normal HGB 13.9 LAB L100.1400 37-47 % Normal HCT 41.9 LAB L100.1500 81-99 fL Normal MCV 88.6 LAB L100.1600 27.0-32.0 pg Normal MCH 29.4 LAB L100.1700 32-36 g/gl Normal MCHC 33.2 LAB L100.1810 11.6-14.6 % Normal RDW CV 12.8 LAB L100.1820 35.1-43.9 fl Normal RDW SD 41.0 LAB L100.1900 150-450 K/mm3 Normal PLT 252 LAB L100.2000 6.2-12.0 fl Normal MPV 11.3 LAB L100.2100 47-70 % High NEUT% 89.0 LAB L100.2200 19-41 % Low LY% 5.1 LAB L100.2300 0-10 % Normal MONO% 5.6 LAB L100.2400 0-5 % Normal EO% 0.0 LAB L100.2500 0-1 % Normal BASO% 0.2 LAB L100.2550 0.0-0.9 % Normal IM GRAN % 0.100 Result Comment: IG% - Immature Granulocytes (promyelocytes, myelocytes and metamyelocytes) > 1% indicates that a LEFT SHIFT is Present. LAB L100.2620 2.0-7.7 X10 3/uL High Absolute Neut 11.5 LAB L100.2720 0.83-4.51 X10 3/ul Low Absolute Lymph 0.66 Performed By: #### L100.0100 #### [facility] [address] [facility] [address] [place], [place], [address] BASIC METABOLIC Collected: 12/25/2017 Status: F Source: [place] PROFILE (BMP) 1:[address] [facility] REPOSITORY TYPE CODE TESTS RESULT OUT OF RANGE REFERENCE UNITS LAB L501.0100 74-106 mg/dL High GLU 201 Result Comment: Glucose result greater than or equal to 200 mg/dL suggests DIABETES MELLITUS per A.D.A. criteria. Please note revised GLUCOSE reference range effective 2017. LAB L501.1000 7-18 mg/dL Normal BUN 12 LAB L501.1100 0.55-1.02 mg/dL Normal CREAT,SERUM 0.72 Result Comment: The validity of the calculated GFR AND GFRAA in patients over 70 years has not been determined. Clinical correlation is essential. LAB L501.1110 >60 mL/min Normal EST GFR 86 Result Comment: Non- GFR Calc LAB L501.1115 >60 mL/min Normal EST GFR - AA 104 Result Comment: GFR Calc LAB L501.1255 ml/min Normal Estimated CRCL 75.75 LAB L501.1300 10-20 RATIO Normal BUN/CRE 16.6 LAB L501.2200 8.5-10 mg/dL Normal .1 CA 9.8 LAB L501.5300 136-14 mmol/L Normal 5 NA 140 LAB L501.5600 3.5-5. mmol/L Normal 1 K 3.9 LAB L501.5900 98-107 mmol/L Normal CL 107 LAB L501.6100 21.0-3 mmol/L Normal 2.0 CO2 25.0 LAB L501.6200 5-15 Normal GAP 8 Performed By: #### L500.2500, L500.3400, L501.2450 #### [facility] [address] [place], [place], [address] LIVER PROFILE Collected: 12/25/2017 Status: F Source: [place] 1:[address] [facility] REPOSITORY TYPE CODE TESTS RESULT OUT OF RANGE REFERENCE UNITS LAB L501.1500 6.4-8.2 g/dL Normal T PROT 7.7 LAB L501.1800 3.2-5.0 g/dL Normal ALB 3.5 LAB L501.1950 2.2-4.2 g/dL Normal GLOB 4.2 LAB L501.4100 15-37 U/L Normal AST 25 LAB L501.4305 45-117 U/L High ALK P 154 LAB L501.4405 13-56 U/L Normal ALT 32 LAB L501.4600 0.20-1.00 mg/dL Normal T BILI 0.50 LAB L501.4700 0.00-0.30 mg/dL Normal D BILI 0.13 Performed By: #### L500.2500, L500.3400, L501.2450 #### [facility] [address] [facility] [place], [address] LIPASE Collected: 12/25/2017 Status: F Source: [place] 1:[address] [facility] REPOSITORY TYPE CODE TESTS RESULT OUT OF RANGE REFERENCE UNITS LAB L501.2450 73-393 U/L Normal LIPASE 126 Performed By: #### L500.2500, L500.3400, L501.2450 #### [facility] [address] [place], [address] CHEST 1 VIEW Observed: 12/25/2017 Status: F Source: [place] (PORTABLE) 1:[address] [facility] REPOSITORY [facility] Imaging Services [address] [place] [address] Chest 1 View (Portable) MR#: [id number] Acct: [id number] Name: IMANI BLAKE Naveen Rep #: [id number] : 1950 F 67 From: Walter Corbin MD PCP: Dafne Jaime NP Status: REG ER Study: Chest 1 View (Portable) Date of Exam: 12/25/17 Exam# [id number] Ordering Dr: Ivanna Bae MD STUDY: X-RAY CHEST REASON FOR EXAM: Female, 67 years old. Dyspnea and shortness of breath TECHNIQUE: Single view of the chest was obtained COMPARISON: 14/11/2016 chest radiograph. FINDINGS: No lung consolidation, pleural effusion or pneumothorax. Cardiac size mildly enlarged. Mild perihilar congestive changes. Apical lung scarring IMPRESSION: Cardiomegaly with mild perihilar congestive changes. Previously noted lung nodule is not well seen on this examination. Electronically Signed: Walter Corbin, at 14:22 EDT Tel , Service support , RAD/Chest 1 View (Portable) CC: Dafne Jaime NP; Ivanna Bae MD Materials Scheduler: Signed ABDOMEN/PELVIS WITHOUT Observed: 12/23/2017 Status: F Source: [place] CONT 12:[address] [facility] REPOSITORY [facility] Imaging Services [address] [place] [address] Abdomen/Pelvis without Cont MR#: [id number] Acct: [id number] Name: IMANI BLAKE Rep #: [id number] : 1950 F 67 From: Leobardo Mckenzie MD PCP: Dafne Jaime NP Status: REG CLI Study: Abdomen/Pelvis without Cont Date of Exam: 12/23/17 Exam# [id number] Ordering Dr: Yoselin Oconnell PROCESS STRIPPER-C STUDY: CT ABDOMEN AND PELVIS WITHOUT CONTRAST REASON FOR EXAM: Female, 67 years old. History of hematuria and kidney stones. RADIATION DOSAGE (If Supplied By Facility): CTDIvol = ( 24.18 ) mGy, DLP = ( 1256.43 ) mGycm TECHNIQUE: Transaxial images were obtained from the dome of the diaphragm to the symphysis pubis without oral contrast, and without intravenous contrast. Sagittal and coronal images were reconstructed. Individualized dose optimization techniques were used for this CT. COMPARISON: None. FINDINGS: Focal scarring with bronchiectasis along the posterior medial aspect of the right lower lobe. The visualized portions of the heart are within normal limits. Normal liver. There are surgical clips in the gallbladder fossa consistent with a prior cholecystectomy. Normal spleen. Normal pancreas. There is a small, circumscribed, smooth, low attenuation right adrenal mass, consistent with an adrenal adenoma. This measures 1.2 cm. Normal left adrenal gland. Normal right kidney. Normal left kidney. Normal visualized stomach. Normal small intestine. There are multiple colonic diverticula consistent with diverticulosis. The appendix is visualized and appears normal. There is diffuse atherosclerotic calcification of the abdominal aorta and its major visceral branches, without a demonstrated aneurysm. Normal inferior vena cava. Normal retroperitoneum. Normal urinary bladder. There is absence of [...] Leobardo Mckenzie MD at 12:50 EDT Tel [phone], Service support , CC: Dafne Jaime NP; MARCO ANTONIO Oconnell Materials Scheduler: Signed ALLERGIES ALLERGIES DATE TYPE / CODE NAME / CODE REACTION SEVERITY SOURCE 07/22/2018 Drug Sulfa (Sulfonamide Unknown Unknown [place] Allergy/416 Antibiotics)/[id number] [facility] 769811[facility] 07/22/2018 Drug erythromycin Unknown Unknown [place] Allergy/416 base/[id number](RXN [facility] 157617([facility] ED CT) Repository 07/22/2018 Drug metformin/[id number] Hives SV [place] Allergy/416 4(RXNORM) [facility] 681202([facility] ED CT) Repository ENCOUNTERS ENCOUNTERS ADMIT/DISCHARGE ACCOUNT ADMITTING ENCOUNTER LOCATION SOURCE NUMBER CLASS 07/22/2018 [id number] Ambulatory BMS [place] 8 [facility] Repository 07/19/2018 [id number] Ambulatory [place] [facility] ing:OPBD Repository 06/22/2018 2782 Ambulatory Building:[facility] Practices Repository 05/06/2018 [id number] Ambulatory [place] 5 [facility] ing:CT Repository 05/05/2018 [id number] Ambulatory BMSBuilding:W [place] [facility] Repository 05/05/2018 [id number] Ambulatory [place] 3 [facility] ing:PSN Repository 01/22/2018/ [id number] Emergency [place] 8 4 [facility] ing:ED Repository 12/25/2017/ [id number] Emergency [place] 0 [facility] ing:ED Repository 12/24/2017 [id number] Ambulatory [place] [facility] ing:LAB.FUTUR Repository E 12/23/2017 [id number] Ambulatory [place] 2 [facility] ing:CT Repository PAYERS PAYERS ENCOUNTER GUARANTOR PAYER SUBSCRIBER SOURCE 07/22/2018 IMANI L Primary IMANI L [place] [id number] Insurance:MEDICARE [facility]INSDOB[id number] [id number], Number: Repository [place] [id number]: [phone] [id number] [phone] (HP) Date:2018-07-22 07/22/2018 Secondary IMANI L [place] Insurance:MEDICAL JENKINSDOB: [facility] [id number] Hospital Number: Repository [id number] e Date:8846-50-23JC[address] [address]OG: 07/22/2018 Tertiary NOT GIVENUNK [place] Insurance:SELF PAY [facility] Number: Effective Repository Date:2018-07-22 07/19/2018 IMANI L Primary IMANI L [place] [id number] Insurance:MEDICARE JENKINSDOB: [facility] [id number] [id number], Number: Repository [place] [id number]: [phone] [id number] [phone] (HP) Date:2018-05-18 07/19/2018 Secondary IMANI L [place] Insurance:MEDICAL JENKINSDOB: [facility] [id number] Hospital Number: Repository [id number] e Date:9053-17-13[address], [place] [address]WT: 07/19/2018 Tertiary NOT GIVENUNK [place] Insurance:SELF PAY [facility] Number: Effective Repository Date:2018-05-18 06/22/2018 Imani L Primary Imani L OHIP Practices JenkinsDOB: Insurance:MedicarePo [facility]fair[facility]: Repository [facility] Number: [id number] [place] [id number] [address]Effective [address] [id number], Date:4660-77-[address] [address]Baw: 330) 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 [place] [address]Nip: (HP)Tel: 030678Spmpbbaw, [place] [phone] () [address]WP: [phone] ([phone] (WP) 06/22/2018 Secondary Imani L OHIP Practices Insurance:Medical [place]: [facility] [id number] Number: [place] [id number] A4Nreqypl, [facility] [address]Tum: (720) Date:5663-76-36Avsb [phone] ()Tel: Name:[address] [place] [address] (AG) [phone]: 06/22/2018 Tertiary Imani L OHIP Practices [facility] Repository [facility] [id number] Number: [place] [id number] F6Xjukvkm, Date:2009[birth year]06-28 - [place] [address]Fee: [phone] [id number] [phone] (HP)Tel: Name:[address] [place] [address] () [place] [address]TX: 06/22/2018 Tertiary Imani L OHIP Practices Insurance:AETNAPolic JenkinsDOB: Repository y Number: [id number] [place] Date:2015-06-28 - [address], [id number] [place] [address]Ucu: (304) Name:[facility] [phone] ()Tel: [phone] DELROY YA [phone]: [phone] ([phone] 06/22/2018 Tertiary Imani L OHIP Practices Insurance:Medical JenkinsDOB: [facility] [id number] Number: [place] [id number] [address], Date:2017-06-28 - [place] [address]Sna: ([phone]) [id number] [phone] ()Tel: Name:[facility] [address] [place] [address] () [id number]: 05/06/2018 IMANI L Primary IMANI L [place] [id number] Insurance:MEDICARE JENKINSDOB: [facility] [id number], Number: Repository [place] [id number]: [phone] [id number] [phone] () Date:2018-05-02 05/06/2018 Secondary IMANI L [place] Insurance:MEDICAL JENKINSDOB: [facility] [id number] Hospital Number: Repository [id number] e Date:4378-46-14NV[address] [address]ZK: 05/06/2018 Tertiary NOT GIVENUNK [place] Insurance:SELF PAY [facility] Number: Effective Repository Date:2018-05-02 05/05/2018 IMANI L Primary IMANI L [place] [id number] Insurance:MEDICARE JENKINSDOB: [facility] PART A [facility] [id number], Number: Repository [place] [address]Mom: 330 [id number] [phone] (HP) Date:2018-05-02 05/05/2018 Secondary IMANI L [place] Insurance:MEDICAL JENKINSDOB: [facility] [id number] Hospital Number: Repository [id number] e Date:9057-49-72ZU [address] [place] [address]NQ: 05/05/2018 Tertiary NOT GIVENUNK [place] Insurance:SELF PAY [facility] Number: Effective Repository Date:2018-05-05 05/05/2018 IMANI L Primary IMANI L [place] [id number] Insurance:MEDICARE JENKINSDOB: [facility] [id number] Tingley Hospital [id number], Number: Repository [place] [address]Une: 330 [id number] [phone] (HP) Date:2018-05-02 05/05/2018 Secondary IMANI L [place] Insurance:MEDICAL JENKINSDOB: [facility] [id number] Hospital Number: Repository [id number] e Date:3608-91-62MI[address] [address]GP: 05/05/2018 Tertiary NOT GIVENUNK [place] Insurance:SELF PAY [facility] Number: Effective Repository Date:2018-05-02 01/22/2018 IMANI L Primary IMANI L [place] [id number] Insurance:MEDICARE JENKINSDOB: [facility] [id number] [facility]ingley Hospital [id number], Number: Repository [place] [address]Asz: 330 [id number] [phone] (HP) Date:2018-01-22 01/22/2018 Secondary IAMNI L [place] Insurance:MEDICAL JENKINSDOB: [facility] [id number] Hospital Number: Repository [id number] e Date:6541-99-29GK [address] [place] [address]HW: 01/22/2018 Tertiary NOT GIVENUNK [place] Insurance:SELF PAY [facility] Number: Effective Repository Date:2018-01-22 12/25/2017 IMANI L Primary IMANI L [place] [id number] Insurance:MEDICARE JENKINSDOB: [facility] [id number] Tingley Hospital [id number], Number: Repository [place] [address]Ofb: 330 [id number] [phone] (HP) Date:2017-12-25 12/25/2017 Secondary IMANI L [place] Insurance:MEDICAL JENKINSDOB: [facility] [id number] Hospital Number: Repository [id number] e Date:7223-95-58JO [address] [address]FN: 12/25/2017 Tertiary NOT GIVENUNK [place] Insurance:SELF PAY [facility] Number: Effective Repository Date:2017-12-25 12/24/2017 IMANI L Primary IMANI L [place] [id number] Insurance:MEDICARE JENKINSDOB: [facility] [id number] Tingley Hospital [id number], Number: Repository [place] [address]Tgf: 330 [id number] [phone] () Date:2017-12-24 12/24/2017 Secondary IMANI L [place] Insurance:MEDICAL JENKINSDOB: [facility] [id number] Hospital Number: Repository [id number] e Date:4462-19-21IC [address] [address]ZC: 12/24/2017 Tertiary NOT GIVENUNK [place] Insurance:SELF PAY [facility] Number: Effective Repository Date:2017-12-24 12/23/2017 IMANI L Primary IMANI L [place] [id number] Insurance:MEDICARE JENKINSDOB: [facility] [id number] Tingley Hospital [id number], Number: Repository [place] [address]Hvy: 330 [id number] [phone] (HP) Date:2017-12-23 12/23/2017 Secondary IMANI L [place] Insurance:MEDICAL JENKINSB: [facility] [id number] Hospital Number: Repository [id number] e Date:3230-36-88QF [address], [place] [address]CQ: 12/23/2017 Tertiary NOT GIVENUNK [place] Insurance:SELF PAY [facility] Hospital Number: Effective Repository Date:2017-12-23
== END ==
PROVIDERS: Family Provider Nurse Practitioner; PCP Nurse Practitioner; Referring Provider Nurse Practitioner; Visit Provider Nurse Practitioner
DX: Z78.0 Asymptomatic menopausal state (principal); Z12.31 Encounter for screening mammogram for malignant neoplasm of breast
CPT/HCPCS: 77063; 77067; 77080

== ENCOUNTER 2018-08-22 14:58 | Emergency (ER) | payer MEDICARE, OTHER, SELFPAY ==
[2018-08-22] VITALS (9 sets, daily range): BP systolic 143–178; BP diastolic 59–87; PULSE 72–95; RESP 15–22; TEMP 36.5–36.7; O2SAT 89–98; BMI 44.2
[2018-08-22] MEDS: 0.9% Normal Saline 1,000 ML 1000 ML IV (15:00)
[2018-08-22] MEDS: DiphenhydrAMINE 50 MG/ML Syringe IV (15:05)
[2018-08-22] MEDS: MethylPREDNISolone 125 MG/2 ML Vial IV (15:06)
[2018-08-22] MEDS: Ipratropium/Albuterol Sulfate 3 ML AMPUL.NEB INHALATION (15:10)
--- NOTE | 2018-08-22 15:30 | RAD_ITS ---
STUDY: X-RAY CHEST REASON FOR EXAM: Female, 67 years old. Allergic reaction. Shortness of breath. TECHNIQUE: Frontal and lateral views of the chest COMPARISON: 12/25/2017. FINDINGS: The lungs are clear. There are no pleural effusions. There is no pneumothorax. The heart is normal in size. The visualized osseous structures are within normal limits. RAD/Chest PA and Lateral IMPRESSION: No acute thoracic pathology. Electronically Signed: Cruz Juan, at 15:54 EST Tel , Service support ,
[2018-08-22 15:42] LABS: Absolute Lymphocyte Count 1.93 X10^3/ul (0.83-4.51); Absolute Neutrophil Count 3.6 X10^3/uL (2.0-7.7); Basophil# 0.03 X10^3/uL; Basophil% 0.4 % (0-1); Eosinophil# 0.25 X10^3/uL; Eosinophils% 3.6 % (0-5); Hematocrit 40.4 % (37-47); Hemoglobin 13.6 g/dl (12.0-15.0); Lymphocyte # 1.93 X10^3/ul (4.0); Mean Corp Hgb Conc 33.7 g/gl (32-36); Mean Corpuscular Hgb 30.6 pg (27.0-32.0); Mean Platelet Vol. 11.2 fl (6.2-12.0); Monocyte# 1.04 X10^3/uL; Monocyte% 15.1 % (0-10); Neutrophil # 3.62 X10^3/uL (2.7-7.7); Neutrophil % 52.6 % (47-70); Platelet Count 280 K/mm3 (150-450); RBC Distribution Width CV 12.7 % (11.6-14.6); RBC Distribution Width SD 41.4 fl (35.1-43.9); Red Blood Count 4.44 M/mm3 (4.2-5.4); White Blood Count 6.9 K/mm3 (4.4-11.0)
[2018-08-22 15:46] LABS: Anion Gap 7 (5-15); BUN 11 mg/dL (7-18); BUN/Creat Ratio 13.7 RATIO (10-20); Calcium,Total 9.2 mg/dL (8.5-10.1); Chloride 100 mmol/L (98-107); EST Glomerular Filtration Rate 76 mL/min (>60); Est Glom Filt Rate - Afr Amer 92 mL/min (>60); Estimated Creatinine Clearance 65.63 ml/min; Glucose 304 mg/dL (74-106); Potassium 3.5 mmol/L (3.5-5.1); Sodium Level 135 mmol/L (136-145)
[2018-08-22 15:53] LABS: POSITIVE COUNT NO; POSITIVE DIFFERENTIAL NO; POSITIVE MORPHOLOGY NO
--- NOTE | 2018-08-22 19:30 | ED.DCSUM_ITS ---
- ER Visit Summary Date of Service: 08/22/18 Chief Complaint: Allergic reaction History of Present Illness: The patient is a 67 F who sees my cc. She reports that she was placed on amoxicillin for URI and took her first dose this afternoon. Approximately 15 minutes later she developed a diffuse rash, shor tness of breath, swelling of her lips, and is lightheaded. Review of systems patient denies any fever or chills. No sore throat. She really does report that she is been congested and had a cough for the past 3 days. Is nonproductive. Physical Examination: Vitals: Stable. Afebrile. General: Well-nourished and well-developed. Head: Normocephalic atraumatic. HEENT: Mild angioedema of her lips and tongue. There is no involvement of her pharynx. Neck: Supple, no lymphadenopathy. No JVD. Nontender. Cardiovascular: Regular rate and rhythm. No murmurs. Respiratory: Mild respiratory distress. She has mild wheezing bilaterally with good air movement. Abdominal: Soft, nontender, nondistended, normal bowel sounds. No guarding, rebound, or peritoneal signs. Back: Nontender. Extremities: Nontender, no edema. Skin: Diffuse erythema. Neurologic: Alert and oriented ?3. Cranial nerves II through XII are intact. Normal strength and sensation. Psych: Normal affect. Test Results: CBC is more for monocytes 15. Chem-7 more for sodium 135 glucose 304. Chest x-ray shows no acute disease. Emergency Department Course and Treatment: Patient was given 0.3 mg of epinephrine IM. She is given Benadryl, Solu-Medrol, and Pepcid IV. She is given albuterol and Atrovent aerosols. On repeat exam her symptoms have completely resolved. She was observed over the course of 4 hours and her symptoms never returned. Treatment Plan: Patient be discharged 5-day burst of prednisone, Pepcid, Zyrtec. Instructed follow-up with primary care physician in 1 day if not improving. Return to the emergency department for any worsening symptoms. Disposition: To home in improved and stable condition. Impression: 1. Allergic reaction to amoxicillin. 2. URI. This note was generated with [employer] dictation software. It may contain incorrect words, spelling, and punctuation that were not noted in review of the chart prior to signing ED Disposition - Plan for ED Patient: Disposition: Home or Assisted Living Instructions: ED Drug React Allergic Prescriptions: Cetirizine HCl [Zyrtec] 10 mg PO DAILY #14 capsule Prednisone [Deltasone] 60 mg PO DAILY #15 tablet Famotidine [Pepcid] 20 mg PO BID #28 tablet Referrals: Dafne Jaime, HEALTH AND WELLNESS COORDINATOR-C [Primary Care Provider] - 1-2 Days if not improving
[2018-08-22] MEDS: predniSONE 20 MG Tablet 60 MG PO (19:38)
== END 2018-08-22 19:40 | disposition home or self-care (01) ==
LOC: ED 15:23
PROVIDERS: Emergency Provider Emergency Medicine; Family Provider Nurse Practitioner; PCP Nurse Practitioner
DX: L27.0 Generalized skin eruption due to drugs and medicaments taken internally (principal); R22.0 Localized swelling, mass and lump, head; R06.02 Shortness of breath; R42 Dizziness and giddiness; T36.0X5A Adverse effect of penicillins, initial encounter; Y92.9 Unspecified place or not applicable; J06.9 Acute upper respiratory infection, unspecified; I10 Essential (primary) hypertension; J44.9 Chronic obstructive pulmonary disease, unspecified; E11.9 Type 2 diabetes mellitus without complications; Z79.84 Long term (current) use of oral hypoglycemic drugs; Z79.899 Other long term (current) drug therapy; Z87.891 Personal history of nicotine dependence
CPT/HCPCS: 71046; 80048; 85025; 94640; 96361; 96372; 96374; 96375; 99285; J7030; A4216; J3490

== ENCOUNTER → 2018-09-13 13:26 | Outpatient (CLI) | payer MEDICARE, OTHER, SELFPAY ==
[2018-08-22 15:01] VITALS: BMI 44.2
--- NOTE | 2018-09-13 13:34 | RAD_ITS ---
STUDY: X-RAY - LUMBAR SPINE REASON FOR EXAM: Female, 67 years old. Back pain TECHNIQUE: 4 view(s) of the lumbar spine were obtained. Upright radiographs COMPARISON: None FINDINGS: Normal lumbar lordosis. There is no substantial scoliosis. There is a normal alignment of the vertebrae. There is multilevel endplate spondylosis of the lumbar vertebrae. There is multi-level degenerative disc disease with multi-level disc space narrowing. There is no demonstrated fracture. The soft tissue structures are unremarkable. RAD/L/S Spine Min 4 Views IMPRESSION: Degenerative changes of the spine, as detailed above. Electronically Signed: Joey Randle DO at 13:29 EDT Tel , Service support ,
== END ==
PROVIDERS: Family Provider Nurse Practitioner; PCP Nurse Practitioner; Referring Provider Nurse Practitioner; Visit Provider Nurse Practitioner
DX: M54.30 Sciatica, unspecified side (principal)
CPT/HCPCS: 72110

== ENCOUNTER 2018-10-12 13:00 | Outpatient (RCR) | payer MEDICARE, OTHER, SELFPAY ==
[2018-08-22 15:01] VITALS: BMI 44.2
--- NOTE | 2018-09-22 14:54 | HP.PTEVAL ---
Patient's Visit Information IMANI BLAKE is a 67 year old F referred to Physical Therapy by Dafne Jaime NP with a diagnosis of Sciatica. Date of Evaluation: 09/22/18 Physical Therapist: José Freeman DPT - Visit Plan Frequency: 2x /Week Duration: 4 Weeks Plan: Start with extension progression and neutral spine core stability exercises in aquatic setting. Progress HEP as tolerated. Pt. had CODP and does not tolerate prone lying well. - Subjective Findings: Pt. is here today for her initial evaluation with diagnosis of sciatica down her LLE. Pt. reporst having increased pain for the last 2-3 weeks. Pt. reports pain started without mechanism of injury. Pt. reports no numbness in her leg, but does have some tingling. Pt. reports increased pain with all sitting positions, decreased pain with walking. Pt. reports some mild leg weakness, but her leg does not give out on her. Pt. has tried steroid without change in symptoms and just started gabapentin. Pt. has not had any imaging at this point in time. Pt. is hopeful to decrease her symptoms in order to get back to all recreational and home acivities without limitations. - Pain Lumbar spine Pain Intensity (Out of 10): 6 Pain Intensity Range: 3, 9 - Objective POSTURE: Pt. had general slouched posture. Pt. is able to correct with VC/TCing. Pt. has no visible signs of lateral shift. PALPATION: Pt. has increased pain at lumbar erector spinea. Pt. has increased tenderness at L3-S1 with spring testing. NEURO: Pt. has decreased senation at medial and posterior calf of LLE. Pt. has 2+ DTR of bilateral LEs. Pt. is able to rise on heels and toes without LOB. ROM: LUMBAR SPINE: flexion mod loss increase in symptoms, ext min/mod loss centralized symptoms, SB mod loss bilat increase NE, rotation mod loss bilat increase NW. Pt. has normal hip ROM bilaterally without increase in symptoms. Pt. has tight HS noted bilaterally. MMT: PT. has equal strength throughout bilateral LEs 4+/5 throughout, except 4/5 hip abd and ext. Pt. has poor core strength. GAIT: Pt. has reduced step length with gait. Pt. has flexed posture with increased lateral wt. shift during L stance phase. Pt. reports reduced pain with walking compaired to sitting. STAIRS: reudced functional strength with eccentric lowering. - Special Tests L/S Slump test left side: Positive L/S Slump test right side: Negative L/S Left Straight Leg Raise: Positive L/S Right Straight Leg Raise: Negative - Goals Goal 1:: Pt. to be I with HEP. Goal Time Frame: 4-6 Weeks Goal 2:: Pt. to have increased ROM of lumbar spine by 25% in all directions with 0-1/10 pain in lumbar spine. Goal Time Frame: 4-6 Weeks Goal 3:: Pt. to have increased BLE and core strength increased by 1/2 grade of all effected musculature. Goal Time Frame: 4-6 Weeks Goal 4:: Pt. to ambulate unlimited distances with 1-2/10 pain alliowing for increased quality of life. Goal Time Frame: 4-6 Weeks Goal 5:: Pt. to sit with 0-2/10 pain in lumbar spine. Goal Time Frame: 4-6 Weeks - Rehabilitation Potential Physical Therapy Diagnosis: Pt. has signs and symptoms of radiating low back pain down her LLE to the mid calf. Pt. had a positive result with extension exercises this date. Pt. had centralized symptoms with light extension. Due to her COPD pathology, she has increased difficulty with lying prone. I would recommend PT in aquatic setting focusing on extension progressing and core stability to reduce radiation of symptoms. Rehabilitation Potential: Good - Anticipated Interventions Patient/Client Instruction: Educate patient on: Condition, Plan of Care, Risk Factors, Benefits of Fitness Program For the Purpose of:: To improve decision making, To facilitate caregiver knowledge, To improve self management, To prevent re-injury, To improve ability to perform tasks related to life management, To improve tolerance to ADL's Therapeutic Exercise to Include: Strength training, Power training, Endurance training, Body mechanics, Postural training, Flexibilty training, In an aquatic setting, Active ROM, Dynamic Lumbar Stabilization, Cari Exercises For the Purpose of:: To decrease pain, To decrease swelling/inflammation, To increase ROM, To improve muscle performance and motor function, To improve gait and locomotor functions, To improve health of tissue, To increase flexibility/ROM, To improve balance, To improve safety with gait Thank you for the opportunity to evaluate your patient. For Medicare and Medicare HMO plans, please review the plan of care and approve it. It will need to be FAXED BACK to us at [phone] for Medicare purposes. For Medicare only, by signing this I certify the plan of care. Please let me know if there are questions or concerns regarding this plan of care. Physician Signature: Date:
--- NOTE | 2019-03-01 10:29 | HP.PT.NRP ---
HP - Discharge Summary (1) - Patient Information IMANI BLAKE was seen in my office for initial evaluation on 09/22/18. The following Plan of Care was established for this patient: Initial Frequency: 2x /Week Initial Duration: 4 Weeks - Anticipated Interventions Patient/Client Instruction: Educate patient on: Condition, Plan of Care, Risk Factors, Benefits of Fitness Program For the Purpose of:: To improve decision making, To facilitate caregiver knowledge, To improve self management, To prevent re-injury, To improve ability to perform tasks related to life management, To improve tolerance to ADL's Therapeutic Exercise to Include: Strength training, Power training, Endurance training, Body mechanics, Postural training, Flexibilty training, In an aquatic setting, Active ROM, Dynamic Lumbar Stabilization, Cari Exercises For the Purpose of:: To decrease pain, To decrease swelling/inflammation, To increase ROM, To improve muscle performance and motor function, To improve gait and locomotor functions, To improve health of tissue, To increase flexibility/ROM, To improve balance, To improve safety with gait This patient was last seen in our office 10/21/18. Pertinent comments regarding their Physical therapy will appear below: Pt. was seen in PT for her sciatica symptoms. Pt. was treated in aquatic setting. Pt. cancelled her last few appointments and has not been seen in several months. Pt. will be DC from PT at this point in time. At this point I will be discontinuing this patient from physical therapy. I would be happy to see this patient again in the future if found appropriate by the physician. Thank you! RAMAN VasquesT
== END 2018-10-12 19:00 | disposition home or self-care (01) ==
LOC: PT 13:00
PROVIDERS: Family Provider Nurse Practitioner; PCP Nurse Practitioner; Referring Provider Nurse Practitioner; Visit Provider Nurse Practitioner
DX: M54.30 Sciatica, unspecified side (principal)
CPT/HCPCS: 97113; 97161

== ENCOUNTER 2018-10-20 10:30 | Emergency (ER) | payer MEDICARE, OTHER, SELFPAY ==
[2018-08-22 15:01] VITALS: BMI 44.2
[2018-10-20 10:30] VITALS: BP 186/99; RESP 18; O2SAT 92
[2018-10-20 10:31] VITALS: BP 202/103; PULSE 102; RESP 24; TEMP 36.6; O2SAT 96; BMI 45.1
--- NOTE | 2018-10-20 11:12 | CT_ITS ---
STUDY: CT BRAIN WITHOUT CONTRAST REASON FOR EXAM: Female, 68 years old. Severe headache, and vomiting RADIATION DOSAGE (If Supplied By Facility): CTDIvol = ( 44.99 ) mGy, DLP = ( 829.85 ) mGycm TECHNIQUE: Transaxial CT imaging of the brain was performed without administration of intravenous contrast material. Individualized dose optimization techniques were used for this CT. COMPARISON: No relevant priors. FINDINGS: Normal soft tissue structures. Normal calvarium. Normal size ventricles and extra-axial spaces for the patient's age. Normal white matter tracts of the cerebral hemispheres. Normal basal ganglia and thalami. Normal brainstem. Normal cerebellum. There is no intracranial hemorrhage. There are no findings of an acute ischemic infarction. Normal visualized paranasal sinuses. CT/Brain/Head without Contrast IMPRESSION: Age-related changes, no acute findings Electronically Signed: Jean-Claude Maxwell MD at 12:13 EDT , Service support ,
--- NOTE | 2018-10-20 11:12 | EKG12_ITS ---
Test Reason : Blood Pressure : / mmHG Vent. Rate : 095 BPM Atrial Rate : 095 BPM P-R Int : 176 ms QRS Dur : 098 ms QT Int : 358 ms P-R-T Axes : 065 011 039 degrees QTc Int : 449 ms Normal sinus rhythm Normal ECG Confirmed by ERIBERTO HUTCHINSON, FLOR ([id number]), deputy editor in chief NANI TRACEY ([id number]) on 10/24/2018 10:58:42 AM Referred By: KATHIA Confirmed By:FLOR WEI MD
--- NOTE | 2018-10-20 11:16 | ED.DCSUM_ITS ---
- ER Visit Summary Date of Service: 10/20/18 Chief Complaint: Nausea, vomiting, jaw pain History of Present Illness: The patient is a 68 F who woke at 3 AM this morning with nausea and vomiting. She then developed a headache and some right facial pain after vomiting. She denies diarrhea. She states she felt okay when she went to bed last night. She still feels very nauseated. Past history significant for asthma, COPD, hypertension, high cholesterol, hypothyroidism, sarcoidosis. She has had prior cholecystectomy and hysterectomy. Physical Examination: Vital signs in triage include blood pressure of 202/103. At the time of my exam blood pressure is 163/79. Patient is lying on her right side. She appears ill but not toxic. Head neck examination was no facial edema or erythema. There is no reproducible tenderness over her face. Heart is regular rate and rhythm. Lung sounds are clear Abdomen is soft with no focal tenderness. Hypoactive bowel sounds are noted. Test Results: EKG is sinus at 95 with no sign of acute ischemia. CT head shows age-related changes with no acute findings. CBC reveals normal overall white count with left shift. Chemistry studies significant for glucose of 226. LFTs and lipase normal. Troponin negative. Emergency Department Course and Treatment: Patient was initially given morphine, Zofran, and IV fluids. On repeat evaluation nausea significantly improved. She still has a very mild headache. She is given a dose of ibuprofen. Patient now tells me that she started Macrobid yesterday for a UTI and is wondering if this might be a reaction to the Macrobid. She does have known allergies to amoxicillin and sulfa. I advised her I have no way of knowing if this is a reaction to the Macrobid or simply gastroenteritis. I will switch the patient to Cipro. Blood pressure is improved at time of discharge. Treatment Plan: [] Disposition: Discharge Impression: 1. Vomiting, improved 2. Cephalgia, improved This note was generated with [employer] dictation software. It may contain incorrect words, spelling, and punctuation that were not noted in review of the chart prior to signing ED Disposition - Plan for ED Patient: Disposition: Home or Assisted Living Instructions: ED Nausea Vomiting Prescriptions: Ondansetron [Zofran Odt] 4 mg PO Q8H PRN PRN #10 tablet PRN Reason: Nausea Ciprofloxacin [Cipro] 500 mg PO BID #6 tablet Referrals: Ciesa,Dafne, PUBLIC SERVICE DIRECTOR-C [Primary Care Provider] - 3-5 Days
[2018-10-20] MEDS: Morphine 4 MG/ML Syringe IV (11:41)
[2018-10-20] MEDS: 0.9% Normal Saline 1,000 ML 150 ML IV (11:41)
[2018-10-20] MEDS: Ondansetron 4 MG/2 ML Vial IV (11:41)
[2018-10-20 12:01] LABS: AST(SGOT) 19 U/L (15-37); Alanine Aminotransfer ALT/SGPT 33 U/L (13-56); Albumin, Serum 3.8 g/dL (3.2-5.0); Alkaline Phosphatase 114 U/L (45-117); Anion Gap 7 (5-15); BUN 9 mg/dL (7-18); BUN/Creat Ratio 13.5 RATIO (10-20); Bilirubin, Direct 0.14 mg/dL (0.00-0.30); Chloride 100 mmol/L (98-107); Creatinine, Serum 0.67 mg/dL (0.55-1.02); EST Glomerular Filtration Rate 94 mL/min (>60); Est Glom Filt Rate - Afr Amer 114 mL/min (>60); Estimated Creatinine Clearance 51.81 ml/min; Globulin 3.6 g/dL (2.2-4.2); Glucose 226 mg/dL (74-106); Lipase 97 U/L (73-393); Potassium 3.9 mmol/L (3.5-5.1); Protein, Total 7.4 g/dL (6.4-8.2); Sodium Level 137 mmol/L (136-145)
[2018-10-20 12:07] LABS: Absolute Neutrophil Count 8.5 X10^3/uL (2.0-7.7); Basophil# 0.03 X10^3/uL; Basophil% 0.3 % (0-1); Eosinophil# 0.04 X10^3/uL; Eosinophils% 0.4 % (0-5); Hematocrit 39.7 % (37-47); Hemoglobin 13.5 g/dl (12.0-15.0); Lymphocyte % 4.3 % (19-41); Mean Corpuscular Hgb 30.5 pg (27.0-32.0); Mean Corpuscular Volume 89.6 fL (81-99); Monocyte# 0.38 X10^3/uL; Monocyte% 4.1 % (0-10); Neutrophil # 8.47 X10^3/uL (2.7-7.7); Neutrophil % 90.8 % (47-70); Platelet Count 274 K/mm3 (150-450); RBC Distribution Width SD 42.8 fl (35.1-43.9); Red Blood Count 4.43 M/mm3 (4.2-5.4); White Blood Count 9.3 K/mm3 (4.4-11.0)
[2018-10-20 12:08] LABS: Differential Indicated SCAN CRITERIA MET; POSITIVE COUNT NO; POSITIVE DIFFERENTIAL YES; POSITIVE MORPHOLOGY NO
[2018-10-20 14:59] VITALS: BP 167/77; PULSE 94; RESP 16; O2SAT 95
[2018-10-20] MEDS: Ibuprofen 600 MG Tablet PO (15:05)
[2018-10-20 16:30] VITALS: PULSE 81; RESP 18
== END 2018-10-20 16:32 | disposition home or self-care (01) ==
PROVIDERS: Emergency Provider Emergency Medicine; Family Provider Nurse Practitioner; PCP Nurse Practitioner
DX: R11.2 Nausea with vomiting, unspecified (principal); R51 Headache; I10 Essential (primary) hypertension; E78.00 Pure hypercholesterolemia, unspecified; E03.9 Hypothyroidism, unspecified; J44.9 Chronic obstructive pulmonary disease, unspecified; E66.9 Obesity, unspecified; Z79.899 Other long term (current) drug therapy; Z87.891 Personal history of nicotine dependence
CPT/HCPCS: 70450; 80048; 80076; 83690; 84484; 85025; 93005; 96361; 96374; 96375; 99285; J7030; A4216; J2405

== ENCOUNTER → 2019-02-10 17:55 | Outpatient (CLI) | payer MEDICARE, OTHER, SELFPAY ==
--- NOTE | 2019-02-10 18:15 | MRI_ITS ---
STUDY: MRI LUMBAR SPINE WITHOUT CONTRAST REASON FOR EXAM: Female, 68 years old. Low back pain and left hip pain TECHNIQUE: Standardized fat and water weighted pulse sequences were obtained in the sagittal and axial planes. COMPARISON: None FINDINGS: T12-L1: Minor endplate spurring.. Normal disc height, desiccation and minimal annular bulge. Normal bilateral facet joints. Normal central canal and bilateral lateral recesses. Normal bilateral intervertebral neural foramina. Normal lumbar lordosis. There is no substantial scoliosis. Normal conus medullaris that terminates at T12-L1 L1-2: Normal endplates. Normal disc height, desiccation and minimal annular bulge.. Normal bilateral facet joints. Normal central canal and bilateral lateral recesses. Normal bilateral intervertebral neural foramina. L2-3: Mild endplate spurring Normal disc height, desiccation and normal morphology. Normal bilateral facet joints. Normal central canal and bilateral lateral recesses. Normal bilateral intervertebral neural foramina. L3-4: Normal endplates. Normal disc height, desiccation and normal morphology. Normal bilateral facet joints. Normal central canal and bilateral lateral recesses. Normal bilateral intervertebral neural foramina. L4-5: Mild endplate spurring.. Normal disc height, desiccation and tiny left foraminal disc protrusion. Normal bilateral facet joints. Normal central canal and bilateral lateral recesses. Mild left neural foraminal encroachment. L5-S1: Normal endplates. Normal disc height, desiccation and tiny left paracentral disc protrusion.. Bilateral facet arthropathy.. Normal central canal and bilateral lateral recesses. Normal bilateral intervertebral neural foramina. Normal visualized sacral ala. Normal visualized paraspinous soft tissue structures. MRI/Spine Lumbar (Routine) IMPRESSION: No evidence for acute fracture or other significant bony pathology. Minor left neuroforaminal stenosis at L4-5 secondary to tiny left foraminal disc protrusion Tiny left paracentral disc protrusion at L5-S1 without significant spinal stenosis Electronically Signed: Jd Oates MD at 21:57 EDT , Service support ,
== END ==
PROVIDERS: Family Provider Nurse Practitioner; PCP Nurse Practitioner; Referring Provider Nurse Practitioner Family; Visit Provider Nurse Practitioner Family
DX: M54.17 Radiculopathy, lumbosacral region (principal); M51.37 Other intervertebral disc degeneration, lumbosacral region; M46.96 Unspecified inflammatory spondylopathy, lumbar region; M53.3 Sacrococcygeal disorders, not elsewhere classified; M47.817 Spondylosis without myelopathy or radiculopathy, lumbosacral region
CPT/HCPCS: 72148

== ENCOUNTER 2019-06-15 09:30 | Outpatient (RCR) | payer MEDICARE, OTHER, SELFPAY ==
--- NOTE | 2019-04-14 16:46 | HP.PTEVAL ---
Patient's Visit Information IMANI BLAKE is a 68 year old F referred to Physical Therapy by MARCO ANTONIO Shields with a diagnosis of LUMBOSACRAL DDD, RADICULOPATHY AND SPONDYLOSIS.. Date of Evaluation: 04/14/19 Physical Therapist: Vivienne Dietrich, PT, Cert MDT - Visit Plan Frequency: 2-3x /Week Duration: 4-6 Weeks Plan: AQUATIC THERAPY FOR PAIN RELEIF, POSTURE CORRECTION/STRENGTHENING, INSTRUCTION IN APPROPRIATE BODY MECHANICS AND ACTIVITY MODIFICATIONS. DLS STARTING WITH A NEUTRAL SPINE PROGRESSING ROM TOLERATED. ROLANDO LE ROM, STRETCHING AND STRENGTHENING. HEP INSTRUCTION. - Subjective Findings: Work/Leisure: RETIRED. Disability: YES - DUE TO COPD. Present symptoms: LOW BACK PAIN. LEFT BUTTOCK, THIGH AND LEG PAIN. Present since: APPROX JUL 2018. Pain Scale: WORST 8/10, LEAST 5/10. Currently: 5/10. Commenced as a result of: NO APPARENT REASON. Symptoms at onset: BACK AND LEFT BUTTOCK. Worse: WALKING, PROLONGED SITTING, RISING FROM SITTING, TWISTING, LYING DOWN ON LEFT SIDE. Better: NOTHING. Disturbed sleep: YES - AVERAGES 4-6 HOURS A NIGHT BUT NOT TAKING ANY PAIN MEDICINE. Previous history/Previous treatment: NERVE BURNING PROCEEDURE BY DR. COOPER ABOUT 3 WEEKS AGO WHICH HELPED A LOT. 3 MARCELLA'S PRIOR TO THAT - DIDN'T HELP. TRIED AQUATIC THERAPY EARLIER THIS YEAR WITHOUT BENEFIT. NO FALLS. NO SPINE SURGERY. Coughing/sneezing/straining: POSITIVE. Gait: I BABY MY LEFT LEG AND IT KIND OF DRAGS. Difficulty initiating urinatin: NO. Accidents: NO. Unexplained weight loss: NO. Imaging: LUMBAR X-RAY AND LUMBAR MRI - SEE [facility] EMR. MRI/Spine Lumbar (Routine). IMPRESSION: No evidence for acute fracture or other significant bony pathology. Minor left neuroforaminal stenosis at L4-5 secondary to tiny left foraminal. disc protrusion. Tiny left paracentral disc protrusion at L5-S1 without significant spinal. stenosis. PMH: DM, HTN, DEPRESSION, COPD, HYPOTHYROIDISM. Recent major surgery: NO - Objective Sitting/Standing Posture: POOR. Lordosis: REDUCED. Lateral shift: NO. Relevant shift: N/A. Active Correction of posture: WORSE BUT TOLERATES PASSIVE SUPPORT IN LOW BACK IN SITTING WELL. Other Observations: INDEP GAIT INTO PT WITH DECREASED CADANCE, INCREASED TRUNK FLEXION AND LIMP ON LLE. NO AD'S. NO LOB. UNABLE TO TRANSFER FROM SIT TO STAND WITHOUT UE ASSIST. ALL TRANSFERS ARE SLOW AND GUARDED. Motor deficit: RIGHT LE STRENGTH 5/5 WITH MMT EXCEPT HIP GRADED 4-/5. LLE: HIP 3+/5, KNEE EXT 4/5, KNEE FLEX 4/5, ANKLE 4/5. LLE TESTING IS PAIN-LIMITED. Sensory deficit: DECREASED LEFT THIGH LIGHT TOUCH SENSATION. LEFT CALF HYPERSENSATIVITY WITH LIGHT TOUCH BUT HOMANS SIGN NEGATIVE. ROM deficit: ROLANDO LE TIGHT HS'S AND GASTROC SOLEUS COMPLEX LEFT > RIGHT. Reflexes: NT. Dural Signs: POSITIVE LLE. Lumbar mvmt loss: flex - MOD. ext - VALERIE. R SG - VALERIE. L SG - MOD. PATIENT WITH GUARDING AND INCREASED PAIN BEHAVIOR WITH LUMBAR ROM TESTING ALL PLANES. Core strength: POOR. Palpation: VERY TENDER WITH LIGHT PALPATION OF THE ENTIRE LUMBOSACRAL AREA AND INTO LEFT BUTTOCK, HIP, THIGH AND LEG. LOWER LEG IS HPERSENSATIVE. NO TENDERNESS IN FOOT. - Goals Goal 1:: DECREASE C/O LOW BACK AND ROLANDO LE SX'S. Goal Time Frame: 4-6 Weeks Goal 2:: IMPROVE SITTING, STANDING, WALKING AND ADL FUNCITON Goal Time Frame: 4-6 Weeks Goal 3:: INSTRUCT IN PROPHYLAXIS Goal Time Frame: 4-6 Weeks - Rehabilitation Potential Rehabilitation Potential: Fair - Anticipated Interventions Patient/Client Instruction: Educate patient on: Condition, Plan of Care, Risk Factors, Benefits of Fitness Program For the Purpose of:: To improve self management Therapeutic Exercise to Include: Strength training, Body mechanics, Postural training, Flexibilty training, Gait and locomotor training, In an aquatic setting, Dynamic Lumbar Stabilization For the Purpose of:: To decrease pain, To increase ROM, To improve muscle performance and motor function, To increase tolerance to activity/condition/position, To improve ability of physical actions for home/community/work/leisure, To improve gait and locomotor functions Thank you for the opportunity to evaluate your patient. For Medicare and Medicare HMO plans, please review the plan of care and approve it. It will need to be FAXED BACK to us at [phone] for Medicare purposes. For Medicare only, by signing this I certify the plan of care. Please let me know if there are questions or concerns regarding this plan of care. Physician Signature: Date:
--- NOTE | 2019-05-15 13:08 | HP.PTREVAL ---
Bre Ramos, KANNAN-C, It has been my pleasure to treat IMANI BLAKE over the last 9 visits for LUMBOSACRAL DDD, RADICULOPATHY AND SPONDYLOSIS.. Please see the progress note below for an update on the physical therapy plan of care! Subjective: PATIENT REPORTS SHE IS DOING BETTER. Objective/Function: PATIENT IS MAKING SLOW PROGRESS TOWARD THE SET PT GOALS. UPON EXAM TODAY: Motor deficit: RIGHT LE STRENGTH 5/5 WITH MMT EXCEPT HIP GRADED 4/5. LLE: HIP 4-/5, KNEE EXT 4/5, KNEE FLEX 4/5, ANKLE 5/5. Sensory deficit: DECREASED LEFT THIGH LIGHT TOUCH SENSATION. LEFT CALF HYPERSENSATIVITY WITH LIGHT TOUCH BUT HOMANS SIGN NEGATIVE. ROM deficit: ROLANDO LE TIGHT HS'S AND GASTROC SOLEUS COMPLEX LEFT > RIGHT. Reflexes: NT. Dural Signs: POSITIVE LLE. Lumbar mvmt loss: flex - MOD. ext - VALERIE. R SG - VALERIE. L SG - MOD. PATIENT WITH LESS GUARDING AND INCREASED PAIN BEHAVIOR WITH LUMBAR ROM TESTING ALL PLANES TODAY BUT STILL MOVES CAUTIOUSLY. Core strength: POOR. Palpation: VERY TENDER WITH LIGHT PALPATION OF THE ENTIRE LUMBOSACRAL AREA AND INTO LEFT BUTTOCK, HIP, THIGH AND LEG. LOWER LEG IS HPERSENSATIVE. 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 PATIENT IS AGREEABLE TO THIS POC. Goals Goal 1:: DECREASE C/O LOW BACK AND ROLANDO LE SX'S. Goal Time Frame: 4-6 Weeks Goal Progress: Progressing Goal 2:: IMPROVE SITTING, STANDING, WALKING AND ADL FUNCITON Goal Time Frame: 4-6 Weeks Goal Progress: Progressing Goal 3:: INSTRUCT IN PROPHYLAXIS Goal Time Frame: 4-6 Weeks Goal Progress: Progressing Anticipated Interventions Patient/Client Instruction: Educate patient on: Condition, Plan of Care, Risk Factors, Benefits of Fitness Program For the Purpose of:: To improve self management Therapeutic Exercise to Include: Strength training, Body mechanics, Postural training, Flexibilty training, Gait and locomotor training, In an aquatic setting, Dynamic Lumbar Stabilization For the Purpose of:: To decrease pain, To increase ROM, To improve muscle performance and motor function, To increase tolerance to activity/condition/position, To improve ability of physical actions for home/community/work/leisure, To improve gait and locomotor functions Please do not hesitate to contact me at [phone] by phone or if you have questions or concerns regarding this new plan of care! Sincerely, Vivienne Dietrich, PT, Cert MDT
--- NOTE | 2019-06-15 11:42 | HP.PTREVAL_ITS ---
Bre Ramos, KANNAN-C, It has been my pleasure to treat IMANI BLAKE over the last 12 visits for LUMBOSACRAL DDD, RADICULOPATHY AND SPONDYLOSIS.. Please see the progress note below for an update on the physical therapy plan of care! Subjective: PATIENT REPORTS SHE GOT PNEUMONIA AND SHE HAS COPD. PATIENT REPORTS SHE IS SO TIRED. SHE STATES SHE DIDN'T HAVE TO DO ANTIBIOTICS THIS TIME. I CAN'T GET BACK IN THE WATER. SHE DOESN'T WANT TO GO OUT WITH WET HAIR IN THE COLD. STILL HAVING SHOOTING PAINS FROM HER BACK DOWN HER LEFT LEG. NO FALLS. FOLLOW UP WITH DR. COOPER PENDING TOMORROW. LAST BACK PROCEEDURE WAS ABOUT 12 WEEKS AGO AND IT HELPED SOME PAIN BUT NOT THE AREA THAT HURTS THE MOST. PATIENT REPORTS SHE WAS DOING SO GOOD IN THE POOL THOUGH. PATIENT REPORTS SHE ALSO CAN NOT DO EX'S LYING DOWN ON HER BACK. Objective/Function: PATIENT IS NOT MAKING PROGRESS TOWARD THE SET PT GOALS AT THIS TIME. SHE IS HAVING MORE PAIN AND DYSFUNCTION NOW COMPARED TO A MONTH AGO. SHE HAS BEEN SICK AND ONLY ABLE TO COME 2 TIMES IN THE LAST MONTH TO THERAPY AND NOW AQUATIC THERAPY ISN'T AN OPTION. UPON EXAM TODAY: Motor deficit: RIGHT LE STRENGTH 5/5 WITH MMT EXCEPT HIP GRADED 4/5. LLE: HIP 3+/5, KNEE EXT 4-/5, KNEE FLEX 4-/5, ANKLE 5/5. Sensory deficit: DECREASED LEFT THIGH LIGHT TOUCH SENSATION. LEFT CALF HYPERSENSATIVITY WITH LIGHT TOUCH BUT HOMANS SIGN NEGATIVE. ROM deficit: ROLANDO LE TIGHT HS'S AND GASTROC SOLEUS COMPLEX LEFT > RIGHT. Reflexes: NT. Dural Signs: POSITIVE LLE. Lumbar mvmt loss: flex - MOD. ext - VALERIE. R SG - VALERIE. L SG - MOD. PATIENT WITH LESS GUARDING AND INCREASED PAIN BEHAVIOR WITH LUMBAR ROM TESTING ALL PLANES TODAY BUT STILL MOVES CAUTIOUSLY. Core strength: POOR. Palpation: VERY TENDER WITH LIGHT PALPATION OF THE ENTIRE LUMBOSACRAL AREA AND INTO LEFT BUTTOCK, HIP, THIGH AND LEG. LOWER LEG IS HPERSENSATIVE. PATIENT IS HAVING A LOT OF PAIN WALKING TODAY. HER GAIT AND TRANSFERS ARE SLOW AND ANTALGIC. PATIENT IS UNSAFE WITHOUT ASSISTIVE DEVICE AND ROLLATOR RECOMMENDED. PATIENT IS GOING TO CONSIDER. Plan Plan: HOLD PT PENDING PHYSICIAN RE-ASSESSMENT TOMORROW. CONSIDER LAND THER EX FOR CORE STRENGTHEING AND ROLANDO LE ROM, STRETCHING AND STRENGTHEING 2X'S A WEEK X 10 VISITS IF REFERRED BACK TO PT AFTER SEEING DR. COOPER. Goals Goal 1:: DECREASE C/O LOW BACK AND ROLANDO LE SX'S. Goal Time Frame: 4-6 Weeks Goal Progress: Not Progressing Goal 2:: IMPROVE SITTING, STANDING, WALKING AND ADL FUNCITON Goal Time Frame: 4-6 Weeks Goal Progress: Not Progressing Goal 3:: INSTRUCT IN PROPHYLAXIS Goal Time Frame: 4-6 Weeks Goal Progress: Not Progressing Anticipated Interventions Patient/Client Instruction: Educate patient on: Condition, Plan of Care, Risk Factors, Benefits of Fitness Program For the Purpose of:: To improve self management Therapeutic Exercise to Include: Strength training, Body mechanics, Postural training, Flexibilty training, Gait and locomotor training, In an aquatic setti ng, Dynamic Lumbar Stabilization For the Purpose of:: To decrease pain, To increase ROM, To improve muscle performance and motor function, To increase tolerance to activity/c ondition/position, To improve ability of physical actions for home/community/work/leisure, To improve gait and locomotor functions Please do not hesitate to contact me at [phone] by phone or if you have questions or concerns regarding this new plan of care! Sincerely, Vivienne Dietrich, PT, Cert MDT
--- NOTE | 2019-09-01 13:36 | HP.PTDCNRP_ITS ---
HP - Discharge Summary (1) - Patient Information IMANI BLAKE was seen in my office for initial evaluation on 04/14/19. The following Plan of Care was established for this patient: Initial Frequency: 2-3x /Week Initial Duration: 4-6 Weeks - Anticipated Interventions Patient/Client Instruction: Educate patient on: Condition, Plan of Care, Risk Factors, Benefits of Fitness Program For the Purpose of:: To improve self management Therapeutic Exercise to Include: Strength training, Body mechanics, Postural training, Flexibilty training, Gait and locomotor training, In an aquatic setting, Dynamic Lumbar Stabilization For the Purpose of:: To decrease pain, To increase ROM, To improve muscle performance and motor function, To increase tolerance to activity/cond ition/position, To improve ability of physical actions for home/community/work/leisure, To improve gait and locomotor functions This patient was last seen in our office 06/15/19. Pertinent comments regarding their Physical therapy will appear below: This patient has not returned to Physical Therapy and is appropriate to return to MD for further follow-up as needed. At this point I will be discontinuing this patient from physical therapy. I would be happy to see this patient again in the future if found appropriate by the physician. Thank you! Vivienne Dietrich, PT, Cert MDT
== END 2019-06-15 19:00 | disposition home or self-care (01) ==
LOC: PT 09:30
PROVIDERS: Family Provider Nurse Practitioner; PCP Nurse Practitioner; Referring Provider Nurse Practitioner Family; Visit Provider Nurse Practitioner Family
DX: M51.37 Other intervertebral disc degeneration, lumbosacral region (principal); M47.817 Spondylosis without myelopathy or radiculopathy, lumbosacral region; M46.98 Unspecified inflammatory spondylopathy, sacral and sacrococcygeal region; M54.17 Radiculopathy, lumbosacral region; M53.3 Sacrococcygeal disorders, not elsewhere classified; Z79.891 Long term (current) use of opiate analgesic
CPT/HCPCS: 97113; 97162; 97530

== ENCOUNTER → 2019-11-21 08:46 | Outpatient (CLI) | payer MEDICARE, OTHER, SELFPAY ==
--- NOTE | 2019-11-21 08:49 | BI_ITS ---
MAMMOGRAPHY - BILATERAL SCREENING REASON FOR EXAM: Female, 69 years old. Routine annual screening examination. PERTINENT HISTORY: Non-contributory. TECHNIQUE: Digital bilateral breast reena (3D mammographic acquisition) in the CC and MLO projections. 2-D mediolateral oblique (MLO) and craniocaudad (CC) views of both breasts were obtained. CAD: Full Field Digital Mammography with Computer Added Detection was performed. COMPARISON: Comparison is made with prior examination dated January 16, 2019 and May 05, 2013. FINDINGS: Breast Composition: There are scattered areas of fibroglandular density. There are no dominant masses or suspicious calcifications. Stable 5 mm well-defined nodule in the anterior mid slightly lateral aspect of the right breast. No other significant abnormalities are identified. There has been no significant change since the prior study. BI/SCREEN MAMM (CAD) W/REENA BILAT IMPRESSION: Stable bilateral screening mammogram. Yearly follow-up mammogram recommended. (A) ASSESSMENT CATEGORY: BIRADS Category 2: Benign. A letter regarding these results will be sent to the patient by the facility within 30 days. Approximately 10% of breast cancers are not detected by mammography. A normal mammogram should not delay biopsy of a clinically suspicious abnormality. [id number] Electronically Signed: Leobardo Mckenzie, at 14:34 EDT , Service support ,
== END ==
PROVIDERS: PCP Nurse Practitioner; Referring Provider Nurse Practitioner; Visit Provider Nurse Practitioner
DX: Z12.31 Encounter for screening mammogram for malignant neoplasm of breast (principal)
CPT/HCPCS: 77063; 77067

== ENCOUNTER → 2020-02-08 12:29 | Outpatient (CLI) | payer MEDICARE, OTHER, SELFPAY ==
[2020-02-08 12:54] LABS: Absolute Lymphocyte Count 1.38 X10^3/uL (0.83-4.51); Absolute Neutrophil Count 3.8 X10^3/uL (2.0-7.7); Basophil# 0.06 X10^3/uL; Eosinophil# 0.25 X10^3/uL; Eosinophils% 4.2 % (0-5); Hematocrit 40.5 % (37-47); Hemoglobin 13.5 g/dL (12.0-15.0); Lymphocyte # 1.38 X10^3/ul (4.0); Mean Corp Hgb Conc 33.3 g/dL (32-36); Mean Corpuscular Hgb 29.9 pg (27.0-32.0); Mean Corpuscular Volume 89.8 fL (81-99); Mean Platelet Vol. 11.4 fl (6.2-12.0); Monocyte# 0.55 X10^3/uL; Monocyte% 9.2 % (0-10); NRBC Flagged by Analyzer 0 % (0-5); Neutrophil # 3.75 X10^3/uL (2.7-7.7); Neutrophil % 62.4 % (47-70); POSITIVE MORPHOLOGY YES; Platelet Count 301 K/mm3 (150-450); RBC Distribution Width CV 12.3 % (11.6-14.6); RBC Distribution Width SD 40.5 fl (35.1-43.9); Red Blood Count 4.51 M/mm3 (4.2-5.4)
[2020-02-08 12:56] LABS: Differential Indicated SCAN CRITERIA MET
== END ==
PROVIDERS: PCP Nurse Practitioner; Referring Provider Internal Medicine; Visit Provider Internal Medicine
DX: K92.1 Melena (principal)
CPT/HCPCS: 85025

== ENCOUNTER → 2020-04-12 09:10 | Outpatient (CLI) | payer MEDICARE, OTHER, SELFPAY | PROVIDERS: PCP Nurse Practitioner; Referring Provider Internal Medicine Gastroenterology; Visit Provider Internal Medicine Gastroenterology | DX: Z11.59 Encounter for screening for other viral diseases (principal) | CPT/HCPCS: 87635; C9803; U0003 ==

== ENCOUNTER → 2021-04-18 12:55 | Outpatient (CLI) | payer MEDICARE, OTHER, SELFPAY ==
--- NOTE | 2021-04-18 12:57 | BI_ITS ---
MAMMOGRAPHY - BILATERAL SCREENING REASON FOR EXAM: Female, 70 years old. Routine annual screening examination. PERTINENT HISTORY: Non-contributory. TECHNIQUE: Digital bilateral breast reena (3D mammographic acquisition) in the CC and MLO projections. 2-D mediolateral oblique (MLO) and craniocaudad (CC) views of both breasts were obtained. CAD: Full Field Digital Mammography with Computer Added Detection was performed. COMPARISON: Comparison is made with prior examination dated 11/21/2019 and 07/19/2018. FINDINGS: Breast Composition: There are scattered areas of fibroglandular density. There are no dominant masses or suspicious calcifications. Stable 5.1 mm well-defined nodule in the anterior mid slightly lateral aspect of the right breast suggestive of a small lymph node. Stable small benign-appearing bilateral axillary lymph nodes. No other significant abnormalities are identified. There has been no significant change since the prior study. BI/SCRN MAMM (CAD)W/REENA BILAT IMPRESSION: Stable bilateral screening mammogram. Yearly follow-up mammogram recommended. (A) ASSESSMENT CATEGORY: BIRADS Category 2: Benign. A letter regarding these results will be sent to the patient by the facility within 30 days. Approximately 10% of breast cancers are not detected by mammography. A normal mammogram should not delay biopsy of a clinically suspicious abnormality. [id number] Electronically Signed: Leobardo Mckenzie MD at 13:54 EDT , Service support ,
== END ==
PROVIDERS: PCP Nurse Practitioner; Referring Provider Nurse Practitioner; Visit Provider Nurse Practitioner
DX: Z12.31 Encounter for screening mammogram for malignant neoplasm of breast (principal)
CPT/HCPCS: 77063; 77067

== ENCOUNTER → 2021-06-17 09:23 | Outpatient (CLI) | payer MEDICARE, OTHER, SELFPAY ==
[2021-06-17 12:18] LABS: Absolute Neutrophil Count 3.4 X10^3/uL (2.0-7.7); Basophil# 0.07 X10^3/uL; Basophil% 1.3 % (0-1); Eosinophil# 0.38 X10^3/uL; Eosinophils% 6.9 % (0-5); Hematocrit 37.7 % (37-47); Hemoglobin 12.2 g/dL (12.0-15.0); Lymphocyte % 21.8 % (19-41); Mean Corp Hgb Conc 32.4 g/dL (32-36); Mean Corpuscular Hgb 28.5 pg (27.0-32.0); Mean Corpuscular Volume 88.1 fL (81-99); Mean Platelet Vol. 11.3 fl (6.2-12.0); Monocyte# 0.47 X10^3/uL; Monocyte% 8.5 % (0-10); NRBC Flagged by Analyzer 0 % (0-5); Neutrophil # 3.38 X10^3/uL (2.7-7.7); Neutrophil % 61.3 % (47-70); Platelet Count 298 K/mm3 (150-450); RBC Distribution Width CV 12.9 % (11.6-14.6); RBC Distribution Width SD 41.8 fl (35.1-43.9); Red Blood Count 4.28 M/mm3 (4.2-5.4); White Blood Count 5.5 K/mm3 (4.4-11.0)
[2021-06-17 12:34] LABS: Vitamin D,25 Hydroxy 56.7 ng/mL
[2021-06-17 12:46] LABS: ALB/GLOB Ratio 0.9 RATIO (0.9-2.4); AST(SGOT) 11 U/L (15-37); Alanine Aminotransfer ALT/SGPT 19 U/L (13-56); Albumin, Serum 3.5 g/dL (3.2-5.0); Alkaline Phosphatase 109 U/L (45-117); Anion Gap 9 (5-15); BUN 11 mg/dL (7-18); BUN/Creat Ratio 18.6 RATIO (10-20); Calcium,Total 10.3 mg/dL (8.5-10.1); Chloride 101 mmol/L (98-107); Cholesterol 175 mg/dL (200); Creatinine, Serum 0.59 mg/dL (0.55-1.02); EST Glomerular Filtration Rate 108 mL/min (>60); Est Glom Filt Rate - Afr Amer 130 mL/min (>60); Globulin 3.9 g/dL (2.2-4.2); Glucose 114 mg/dL (74-106); High Density Lipoprotein 41 mg/dL; Potassium 3.2 mmol/L (3.5-5.1); Protein, Total 7.4 g/dL (6.4-8.2); Sodium Level 139 mmol/L (136-145); Triglycerides 240 mg/dL; Very Low Density Lipoprotein 48 mg/dL (5-40)
== END ==
PROVIDERS: PCP Nurse Practitioner; Referring Provider Nurse Practitioner; Visit Provider Nurse Practitioner
DX: E55.9 Vitamin D deficiency, unspecified (principal); E11.9 Type 2 diabetes mellitus without complications
CPT/HCPCS: 36415; 80053; 80061; 82306; 84443; 85025

== ENCOUNTER 2021-07-07 15:47 | Outpatient (CLI) | payer MEDICARE, OTHER, SELFPAY ==
--- NOTE | 2021-07-07 15:51 | RAD_ITS ---
EXAM: XR CHEST, 2 VIEWS : 1950 CLINICAL INDICATION: COVID TECHNIQUE: Frontal and lateral views of the chest. This report was created using [employer] 3d report generation technology. COMPARISON: 07/26/20 FINDINGS: LUNGS AND PLEURAL SPACES: Unremarkable. No consolidation or edema. No pneumothorax. No effusion. HEART: Unremarkable. Cardiac silhouette not enlarged. MEDIASTINUM: Central airways and mediastinal contour are unremarkable. BONES/JOINTS: Degenerative changes of the spine. SOFT TISSUES: Unremarkable. RAD/Chest PA and Lateral IMPRESSION: No acute findings in the chest. at 2324 Reported and signed by: Darin Otto MD Electronically Signed: Darin Otto MD at 23:23 EST Tel , Service support ,
== END 2021-07-07 23:59 | disposition short-term general hospital (02) ==
LOC: MTRAD 15:49
PROVIDERS: PCP Nurse Practitioner; Referring Provider Nurse Practitioner; Visit Provider Nurse Practitioner
DX: U07.1 COVID-19 (principal)
CPT/HCPCS: 71046

== ENCOUNTER 2021-07-12 11:26 | Outpatient (CLI) | payer MEDICARE, OTHER, SELFPAY ==
[2021-07-12 11:43] VITALS: BP 151/83; PULSE 74; RESP 16; TEMP 36.8; O2SAT 99; BMI 40.1
[2021-07-12] MEDS: 0.9% Saline Lock 10 ML Syringe IV (11:43)
[2021-07-12 12:13] VITALS: BP 141/74; PULSE 69; RESP 16; TEMP 37.1; O2SAT 97
[2021-07-12 13:01] VITALS: BP 143/80; PULSE 69; RESP 16; TEMP 37; O2SAT 99
== END 2021-07-12 23:59 | disposition home or self-care (01) ==
LOC: MS3OUT 11:26 → MS3 11:27
PROVIDERS: PCP Nurse Practitioner; Referring Provider Nurse Practitioner Adult Health; Visit Provider Nurse Practitioner Adult Health
DX: Z23 Encounter for immunization (principal); U07.1 COVID-19
CPT/HCPCS: J7050; M0245; Q0245; A4216

== ENCOUNTER 2021-12-24 13:48 | Emergency (ER) | payer MEDICARE, OTHER, SELFPAY ==
[2021-12-24 13:49] VITALS: BP 159/74; PULSE 67; RESP 15; TEMP 36.4; O2SAT 98; BMI 37.5
--- NOTE | 2021-12-24 14:21 | CT_ITS ---
STUDY: CT THORACIC SPINE WITHOUT CONTRAST REASON FOR EXAM: Female, 71 years old. Back pain following a fall. RADIATION DOSAGE (If Supplied By Facility): CTDIvol = ( 47.04 ) mGy, DLP = ( 1672.11 ) mGycm TECHNIQUE: The patient was scanned in a multi detector CT scanner. High resolution imaging was performed. Images were obtained from T1 to T12. Sagittal and coronal images were reconstructed. Individualized dose optimization techniques were used for this CT. COMPARISON: None. FINDINGS: Normal visualized cervical spine. Normal kyphosis of the thoracic spine. The mineralization of the thoracic vertebrae. There is no substantial scoliosis. There is multilevel endplate spondylosis of the thoracic spine. There is multilevel degenerative disc disease with loss of the disc space heights. The soft tissue structures are unremarkable. CT/Spine Thoracic without Contras IMPRESSION: Multilevel disc space narrowing and spondylosis. Electronically Signed: Leobardo Mckenzie MD at 15:18 EDT ,
--- NOTE | 2021-12-24 14:21 | CT_ITS ---
STUDY: CT BRAIN WITHOUT CONTRAST REASON FOR EXAM: Female, 71 years old. Head injury RADIATION DOSAGE (If Supplied By Facility): CTDIvol = ( 44.99 ) mGy, DLP = ( 829.85 ) mGycm TECHNIQUE: Transaxial CT imaging of the brain was performed without administration of intravenous contrast material. Individualized dose optimization techniques were used for this CT. COMPARISON: Comparison is made with prior study dated 10/20/2018. FINDINGS: Normal soft tissue structures. Normal calvarium. There is mild cerebral atrophy with widening of the extra-axial spaces and ventricular dilatation. There are areas of decreased attenuation within the white matter tracts of the supratentorial brain, consistent with microvascular disease changes. Normal basal ganglia and thalami. Normal brainstem. Normal cerebellum. There is no intracranial hemorrhage. There are no findings of an acute ischemic infarction. Atherosclerotic calcification of the cavernous portions of the internal carotid arteries bilaterally. Normal visualized paranasal sinuses. CT/Brain/Head without Contrast IMPRESSION: Chronic involutional changes of the brain. Electronically Signed: Leobardo Mckenzie MD at 15:12 EDT ,
--- NOTE | 2021-12-24 14:21 | CT_ITS ---
STUDY: CT LUMBAR SPINE WITHOUT CONTRAST REASON FOR EXAM: Female, 71 years old. Injury RADIATION DOSAGE (If Supplied By Facility): CTDIvol = ( 46.97 ) mGy, DLP = ( 1494.16 ) mGycm TECHNIQUE: The patient was scanned in a multi detector CT scanner. High resolution transaxial imaging was performed. Images were obtained from L1 to S1 level. Sagittal and coronal images were reconstructed. Individualized dose optimization techniques were used for this CT. COMPARISON: None FINDINGS: Normal lumbar lordosis. There is no substantial scoliosis. Normal vertebrae of the lumbar spine. L1-2: Mild degree of disc space narrowing and disc degeneration. Anterior spondylosis. L2-3: Mild degree of disc space narrowing. Anterior spondylosis. L3-4: Normal endplates. Normal disc height and morphology. Normal bilateral facet joints. Normal central canal and bilateral lateral recesses. Normal bilateral intervertebral neural foramina. L4-5: Mild degree of diffuse posterior disc bulge. No significant stenosis seen. L5-S1: Normal endplates. Normal disc height and morphology. Normal bilateral facet joints. Normal central canal and bilateral lateral recesses. Normal bilateral intervertebral neural foramina. Atherosclerotic calcification of the abdominal aorta. CT/Spine Lumbar without Contrast IMPRESSION: Multilevel degenerative changes, as described above. Electronically Signed: Leobardo Mckenzie MD at 15:17 EDT ,
--- NOTE | 2021-12-24 14:21 | CT_ITS ---
STUDY: CT CERVICAL SPINE WITHOUT CONTRAST REASON FOR EXAM: Female, 71 years old. Neck injury due to a fall. RADIATION DOSAGE (If Supplied By Facility): CTDIvol = ( 21.45 ) mGy, DLP = ( 368.20 ) mGycm TECHNIQUE: High resolution transaxial imaging was performed without contrast material. Sagittal and coronal images were reconstructed. Individualized dose optimization techniques were used for this CT. COMPARISON: None FINDINGS: Normal craniovertebral junction. Normal anterior atlantoaxial articulation. Normal odontoid process. There is straightening of the normal cervical lordosis. Normal vertebral bodies and posterior osseous elements. C2-3: Facet joint osteoarthritis and hypertrophy on the left side. C3-4: Facet joint osteoarthritis and hypertrophy. Uncovertebral arthrosis with bilateral neural foraminal stenosis worse on the left side. C4-5: Facet joint osteoarthritis and hypertrophy. This is worse on the left side. Left posterior spondylosis with narrowing of the left intervertebral foramen. C5-6: Moderate degree of disc space narrowing. Anterior spondylosis. Uncovertebral arthrosis. Bilateral neural foraminal stenosis worse on the left side. C6-7: Moderate degree of disc space narrowing. Spondylosis. Uncovertebral arthrosis. Bilateral neural foraminal stenosis. C7-T1: Normal endplates. Normal disc height and morphology. Normal central canal and intervertebral neuroforamina. Normal visualized soft tissue structures. CT/Spine Cervical without Contras IMPRESSION: Multilevel degenerative changes, as described above. Electronically Signed: Leobardo Mckenzie MD at 15:15 EDT ,
[2021-12-24] MEDS: fentaNYL 100 MCG/2 ML Ampul 50 MCG IM (14:33)
[2021-12-24] MEDS: Ondansetron ODT 4 MG Tablet PO (14:33)
--- NOTE | 2021-12-24 14:35 | RAD_ITS ---
STUDY: X-RAY - PELVIS AND LEFT HIP REASON FOR EXAM: Female, 71 years old. Injury TECHNIQUE: History views of the pelvis and hip. COMPARISON: None. FINDINGS: There is a non-specific bowel gas pattern. Normal visualized soft tissue structures. Disc space narrowing at the L4-L5 and L5-S1 disc space levels. Normal bilateral iliac wings, sacroiliac joints and visualized sacrum. Normal bilateral superior and inferior pubic rami. There is narrowing with sclerosis of the pubic symphysis. Normal bilateral ischial tuberosities. Normal visualized femoral head. Normal acetabulum. There is mild articular joint space narrowing of the hip. RAD/HIP, UNI W/ Pelvis 2-3 Views IMPRESSION: Degenerative changes. Electronically Signed: Leobardo Mckenzie MD at 15:10 EDT ,
--- NOTE | 2021-12-24 14:39 | EDS_ITS ---
HPI HPI - Fall History of Present Illness Chief Complaint: Fall Informant: patient Narrative Narrative: Presents by private vehicle with her friend mechanical fall around 11 AM this morning. She tripped over construction material in her home walking from the laundry onto a carpeted floor. She landed on her right side. She does not think she passed out. She is on baby aspirin. Pain to the right side of her neck down her back and her left hip. No history of any significant fractures. She does not follow orthopedist. Denies headache. Denies chest or abdominal pain. Nausea however no vomiting. She does not ambulate with any assistance. She is unable to walk to the car, reported she had a wheelchair from her mother they placed her in this and moved her to the car. Denies any history of osteopenia or osteoporosis. [facility] Medical History Acute sinusitis Adrenal adenoma Adult hypothyroidism Allergic rhinitis Anxiety Asthma Back pain Bronchitis COPD (chronic obstructive pulmonary disease) Cough Depression Diabetes mellitus associated with genetic syndrome Eczema Enlarged lymph nodes Fatigue Folliculitis Hypercalcemia Hypercholesteremia Hypertension Hypoglycemia Meralgia paresthetica Nausea Obesity Osteopenia Palpitations Postmenopausal Right hip pain Sarcoidosis Sciatica Sleep apnea in adult Sleep disorder Vitamin D deficiency Wheezing Home Medications citalopram 40 mg tablet 20 mg PO DAILY 12/25/17 [History Last Taken Unknown] levothyroxine 150 mcg tablet 150 mcg PO DAILY 12/25/17 [History Last Taken Unknown] metoprolol succinate 100 mg tablet,extended release 24 hr 100 mg PO DAILY 12/25/17 [History Last Taken Unknown] simvastatin 40 mg tablet 40 mg PO DAILY 12/25/17 [History Last Taken Unknown] hydrochlorothiazide 12.5 mg capsule 25 mg PO DAILY 01/22/18 [History Last Taken Unknown] irbesartan 75 mg tablet 150 mg PO BID 01/22/18 [History Last Taken Unknown] glipizide 5 mg tablet, extended release 24 hr 10 mg PO BID 10/20/18 [History Last Taken Unknown] ondansetron 4 mg disintegrating tablet 4 mg PO Q8H PRN PRN Nausea #10 tabs 10/20/18 [Rx Last Taken Unknown] albuterol sulfate 90 mcg/actuation aerosol inhaler (ProAir HFA) 1 inh inhalation Q6H 12/24/21 [History Last Taken Unknown] docusate sodium 100 mg capsule (Colace) 100 mg PO DAILY #30 caps 12/24/21 [Rx Last Taken Unknown] doxycycline monohydrate 100 mg capsule 100 mg PO BID 12/24/21 [History Last Taken Unknown] ipratropium 0.5 mg-albuterol 3 mg (2.5 mg base)/3 mL nebulization soln 3 ml inhalation Q4H PRN Wheezing 12/24/21 [History Last Taken Unknown] mirtazapine 15 mg tablet 15 mg PO QHS 12/24/21 [History Last Taken Unknown] ondansetron 4 mg disintegrating tablet 4 mg PO Q6H PRN nausea and vomiting #10 tabs 12/24/21 [Rx Last Taken Unknown] oxycodone-acetaminophen 5 mg-325 mg tablet (Percocet) 1 tab PO Q6H PRN pain 3 days #12 tabs 12/24/21 [Rx Last Taken Unknown] pantoprazole 40 mg tablet,delayed release 40 mg PO DAILY 12/24/21 [History Last Taken Unknown] semaglutide (Ozempic) 0.25 mg subcut QWEEK 12/24/21 [History Last Taken Unknown] tiotropium bromide 1.25 mcg/actuation mist for inhalation (Spiriva Respimat) 2 puff inhalation DAILY 12/24/21 [History Last Taken Unknown] Allergy/AdvReac Type Severity Reaction Status Date / Time metformin Allergy Severe Hives Verified 12/24/21 13:49 Penicillins Allergy Severe Anaphylaxis Verified 12/24/21 13:49 amoxicillin Allergy Anaphylaxis Verified 12/24/21 13:49 erythromycin base Allergy Unknown Verified 12/24/21 13:49 Sulfa (Sulfonamide Allergy Unknown Verified 12/24/21 13:49 Antibiotics) Family History Mother Diabetes Hypertension Father Hypertension Surgical History History of laparoscopic cholecystectomy History of lung surgery Social History Smoking Status: Former smoker second hand exposure: Yes ROS ROS ED Constitutional Constitutional ED: Denies chills, fever(s) or sweats Eyes Eyes: Denies change in vision ENT ENT ED: Denies dysphagia or sore throat Cardiovascular Cardiovascular: Denies chest pain, leg edema, palpitations or racing heartbeat Respiratory/Chest Respiratory/Chest: Denies cough, dyspnea or dyspnea on exertion Gastrointestinal Gastrointestinal: Denies abdominal pain, diarrhea, nausea or vomiting Genitourinary Genitourinary ED: Denies dysuria, hematuria or urinary frequency Musculoskeletal Musculoskeletal: Reports back pain, extremity pain, neck pain and other Details: Left hip pain. Integumentary Denies rash or wounds Neurologic Neurologic: Denies headache(s), paresthesias or weakness EXAM Physical Exam Const Vital Signs: 12/24/21 13:49 12/24/21 14:02 12/24/21 16:09 Temperature 97.5 F L Temperature Source Temporal Pulse Rate 67 Respiratory Rate 15 Respiratory Effort Normal Non-Labored Blood Pressure 159/74 H 153/96 H Blood Pressure Mean 102 Pulse Ox 98 Oxygen Delivery Method Room Air Positive well nourished and well developed Constitutional Narrative: GCS 15, uncomfortable due to lower back left hip pain. Nontoxic. General Appearance ED: well developed HEENT Reports TM's normal bilaterally and moist mucous membranes HEENT Narrative: No hemotympanums. normocephalic and atraumatic Eyes PERRL, EOMs intact bilaterally and conjunctivae normal General Eye ED: Yes normal appearance of both eyes Neck no lymphadenopathy and supple Neck Narrative: No midline tenderness there is tender palpation right paracervical. There is no step-offs. General: Negative for tenderness Chest Wall palpation of chest normal Chest: Negative for tenderness Resp normal respiratory effort and normal air movement Resp Narrative: Symmetric breath sounds. Effort and Inspection: symmetric chest movement; Negative for respiratory distress Cardio regular rate, regular rhythm and no murmurs Peripheral Pulses: pulses 2+ throughout GI normal to inspection, nondistended, normoactive bowel sounds and non-tender Palpation: Negative for guarding or rebound tenderness present Back/Spine no CVA tenderness Back/Spine Narrative: Tender midline mid thoracic along with lower lumbar without step-offs. Extremity Extremity Narrative: Upper extremities: Full range of motion without tenderness. Right lower extremity: Negative logroll, has abrasion left infrapatellar there is no bony tenderness knee extensor intact. No bleeding. No deformities. Neuro vas intact distally. Left lower extremity: No shortening or rotation however pain with logroll, no deformities. No knee tenderness. Neuro vas intact distally. General Extremety ED: Negative for edema or tenderness General Extremity: Negative for edema Neuro oriented x3, CN's II-XII intact bilaterally and no sensory deficits noted Sensorium / Orientation: awake and alert Skin no rashes or lesions noted and no wounds MDM MDM MDM Narrative Medical decision making narrative: Patient mechanical fall pain neck thoracic and lumbar. Trauma scans head neck thoracic and lumbar spines will be obtained. Left hip x-ray with pelvis ordered. IM fentanyl along with p.o. Zofran ordered. Trauma scans were all negative. Hip x-ray 3 views reviewed by myself read by radiology shows no fracture or dislocation. Pain with improved reevaluation she is able to weight-bear and ambulate with no worsening pain in the hip. Therefore I do not feel further imaging is required. Prescriptions for pain control. She does have cane walker and even a wheelchair at home to use as needed. All questions were answered. Radiography Diagnostic Testing: Clinical Impression(s) from Imaging Studies Brain CT 12/24/21 14:21 IMPRESSION: Chronic involutional changes of the brain. Electronically Signed: Loebardo Mckenzie MD at 15:12 EDT , Cervical Spine CT 12/24/21 14:21 IMPRESSION: Multilevel degenerative changes, as described above. Electronically Signed: Leobardo Mckenzie MD at 15:15 EDT , Lumbar Spine CT 12/24/21 14:21 IMPRESSION: Multilevel degenerative changes, as described above. Electronically Signed: Leobardo Mckenzie MD at 15:17 EDT , Thoracic Spine CT 12/24/21 14:21 IMPRESSION: Multilevel disc space narrowing and spondylosis. Electronically Signed: Leobardo Mckenzie MD at 15:18 EDT , Hip/Pelvis X-Ray 12/24/21 14:35 IMPRESSION: Degenerative changes. Electronically Signed: Leobardo Mckenzie MD at 15:10 EDT , Discharge Plan Triage Chief Complaint: Fall ED Provider: Adarsh Colby Dx/Rx/DC Orders Clinical Impression: Fall, Neck strain, Acute thoracic myofascial strain, Acute lumbar myofascial strain, Contusion of hip, left Instructions: ED Back Sprain/Strain, ED Hip Contusion, ED Neck Sprain or Strain Prescriptions: New oxycodone-acetaminophen [Percocet] 5-325 mg tablet 1 tab PO Q6H PRN (Reason: pain) 3 Days Qty: 12 0RF docusate sodium [Colace] 100 mg capsule 100 mg PO DAILY Qty: 30 0RF ondansetron 4 mg tablet,disintegrating 4 mg PO Q6H PRN (Reason: nausea and vomiting) Qty: 10 0RF No Action citalopram 40 MG tablet 20 mg PO DAILY Label Comments: TAKE 1 TABLET EVERY DAY metoprolol succinate 100 MG tablet extended release 24 hr 100 mg PO DAILY levothyroxine 150 MCG tablet 150 mcg PO DAILY simvastatin 40 tablet 40 mg PO DAILY Label Comments: hydrochlorothiazide 12.5 MG capsule 25 mg PO DAILY Label Comments: TAKE 1 CAPSULE EVERY DAY irbesartan 75 MG tablet 150 mg PO BID glipizide 5 MG tablet extended release 24 hr 10 mg PO BID ondansetron 4 MG tablet 4 mg PO Q8H PRN PRN (Reason: Nausea) Qty: 10 0RF ipratropium-albuterol 0.5 mg-3 mg(2.5 mg base)/3 mL Solution For Nebulization 3 ml INHALATION Q4H PRN (Reason: Wheezing) doxycycline monohydrate 100 mg Capsule 100 mg PO BID pantoprazole 40 mg Tablet,Delayed Release (Dr/Ec) 40 mg PO DAILY mirtazapine 15 mg Tablet 15 mg PO QHS albuterol sulfate [ProAir HFA] 90 mcg/actuation Hfa Aerosol Inhaler 1 inh INHALATION Q6H Spiriva Respimat 1.25 mcg/actuation Mist 2 puff INHALATION DAILY Ozempic 0.25 mg or 0.5 mg(2 mg/1.5 mL) Pen Injector 0.25 mg SUBCUT QWEEK Rx Instructions: for 4 doses Primary Care Provider: Anahi Alex Referrals: Anahi Alex DO [Primary Care Provider] - 1 Week Disposition Disposition: Home, Self Care Discharge Date/Time: 12/24/21 16:09
[2021-12-24 16:09] VITALS: BP 153/96
== END 2021-12-24 16:09 | disposition home or self-care (01) ==
PROVIDERS: Emergency Provider Emergency Medicine; PCP Internal Medicine; Visit Provider Emergency Medicine
DX: S16.1XXA Strain of muscle, fascia and tendon at neck level, initial encounter (principal); J44.9 Chronic obstructive pulmonary disease, unspecified; S29.019A Strain of muscle and tendon of unspecified wall of thorax, initial encounter; S39.012A Strain of muscle, fascia and tendon of lower back, initial encounter; S70.02XA Contusion of left hip, initial encounter; E78.00 Pure hypercholesterolemia, unspecified; I10 Essential (primary) hypertension; F41.9 Anxiety disorder, unspecified; F32.A Depression, unspecified; E03.9 Hypothyroidism, unspecified; W19.XXXA Unspecified fall, initial encounter; Z79.82 Long term (current) use of aspirin; Z79.899 Other long term (current) drug therapy; Z87.891 Personal history of nicotine dependence
CPT/HCPCS: 70450; 72125; 72128; 72131; 73502; 96372; 99283

== ENCOUNTER → 2022-01-22 | Outpatient (CLI) | payer MEDICARE, OTHER, SELFPAY ==
--- NOTE | 2022-01-22 13:57 | BD_ITS ---
STUDY: DUAL ENERGY X-RAY ABSORPTIOMETRY / DXA REASON FOR EXAM: Female, 71 years old. M85.89 patient is postmenopausal. TECHNIQUE: Bone Mineral Density (BMD) measurements of lumbar spine and bilateral hips were obtained. COMPARISON: Comparison is made with prior study of 07/19/2018. FINDINGS: Lumbar Spine (L1-L4): g/cm2 (0.856) / T-score (-1.7) / Z-score (0.3) Findings are suggestive of osteopenia with a moderate fracture risk. Left Femur Total: g/cm2 (0.955) / T-score (0.1) / Z-score (1.6) Left Femoral Neck: g/cm2 (0.639) / T-score (-1.9) / Z-score (-0.1) Right Femur Total: g/cm2 (0.965) / T-score (0.2) / Z-score (1.6) Right Femoral Neck: g/cm2 (0.718) / T-score (-1.2) / Z-score (0.6) The T-Scores on the most recent prior examination were: Lumbar Spine (L1-L4): There has been worsening of bone density since the previous examination. Left Femur Total: which represents a worsening of 1.2%. Right Femur Total: which represents a worsening of 7.1%. BD/Dexa Bone Density Study IMPRESSION: The patient is considered osteopenic as outlined below according to World Arun Organization (WHO) criteria with a moderate fracture risk. There has been worsening of bone density since the previous examination. Reference Information: The T-score is the number of standard deviations above or below the standard which is normal for young adults at their peak bone mineral density. The World Health Organization (WHO) interprets the T-scores as follows: Above -1 Normal bone density Between -1 and -2.5 Osteopenia Equal to / or below -2.5 Osteoporosis As a practical clinical guideline, osteopenia may be graded as follows: Mild -1 through -1.5 Moderate -1.6 through -2.0 Severe -2.1 through -2.4 The Z-score is the number of standard deviations above or below age-matched controls. A Z-score of less than -1.5 would be considered abnormal. References: 1. NIH Osteoporosis and Related Bone Diseases www osteo.org 2. International Society for Clinical Densitometry www iscd.org 3. National Osteoporosis Foundation www nof.org Electronically Signed: Leobardo Mckenzie MD at 12:34 EDT ,
== END | disposition home or self-care (01) ==
LOC: OPBD 13:50
PROVIDERS: PCP Internal Medicine; Visit Provider Nurse Practitioner Family
DX: M85.89 Other specified disorders of bone density and structure, multiple sites (principal)
CPT/HCPCS: 77080

== ENCOUNTER 2022-02-10 14:20 | Outpatient (CLI) | payer MEDICARE, OTHER, SELFPAY ==
[2022-02-10] MEDS: 0.9% Saline Lock 10 ML Syringe IV ×3 (14:39→14:58)
[2022-02-10 14:40] VITALS: BP 137/69; PULSE 73; RESP 20; TEMP 37.3; O2SAT 100; BMI 41.1
[2022-02-10] MEDS: BEBTELOVIMAB 175 MG/2 ML VIAL IV (14:57)
[2022-02-10 15:28] VITALS: BP 137/69; PULSE 74; RESP 20; TEMP 37.3; O2SAT 100
[2022-02-10 15:48] VITALS: BP 137/60; PULSE 72; RESP 20; TEMP 37.4; O2SAT 97
== END 2022-02-10 15:58 | disposition home or self-care (01) ==
LOC: MS3OUT 14:20 → MS2 14:21
PROVIDERS: PCP Internal Medicine; Referring Provider Nurse Practitioner Adult Health; Visit Provider Nurse Practitioner Adult Health
DX: U07.1 COVID-19 (principal)
CPT/HCPCS: M0222; Q0222; A4216

== ENCOUNTER 2022-04-06 10:47 | Inpatient (IN) | payer MEDICARE, OTHER, SELFPAY ==
[2022-04-06] VITALS (18 sets, daily range): BP systolic 132–164; BP diastolic 57–125; PULSE 64–90; RESP 13–18; TEMP 36.2–37.2; O2SAT 95–99; BMI 38.7; BMI 40.4
--- NOTE | 2022-04-06 11:23 | ED.VIS.STROK ---
HPI History of Present Illness Chief Complaint: Weakness Informant: patient Onset/Context/Timing Onset: Yesterday Context: Sudden Onset Timing: Continuous Quality and Location: Positive for Right Arm Parasthesia, Right Leg Parasthesia and Right Leg Weakness Onset: Approximately 10 PM last night Worsened by: Nothing Relieved by: Nothing Associated Symptoms Associated Symptoms: Positive for Headache and Nausea; Negative for Vomiting or Chest Pain Narrative Narrative: Patient presents with right leg weakness began last night. Patient states that around 10 PM she sat up and started to walk when she felt like her right lower extremity was not working like it should. Patient states she was having difficulty moving her right lower extremity but was able to ambulate. Patient states it has been persistent throughout the day today. Patient also admits to some decrease sensation in her right upper and lower extremities. Patient also admits to some pain in her right arm that radiates up into the right side of her neck. Patient describes it as aching and pressure. Patient states nothing makes her symptoms any better and nothing makes them worse. Patient does admit to some subjective chills. Patient also admits to a mild headache in the right occipital area. [facility] Medical History Acute sinusitis Adrenal adenoma Adult hypothyroidism Allergic rhinitis Anxiety Asthma Back pain Bronchitis COPD (chronic obstructive pulmonary disease) Cough Depression Diabetes mellitus associated with genetic syndrome Eczema Enlarged lymph nodes Fatigue Folliculitis Hypercalcemia Hypercholesteremia Hypertension Hypoglycemia Meralgia paresthetica Nausea Obesity Osteopenia Palpitations Postmenopausal Right hip pain Sarcoidosis Sciatica Sleep apnea in adult Sleep disorder Vitamin D deficiency Wheezing Home Medications citalopram 40 mg tablet 20 mg PO DAILY 12/25/17 [History Last Taken Unknown] levothyroxine 150 mcg tablet 150 mcg PO DAILY 12/25/17 [History Last Taken Unknown] metoprolol succinate 100 mg tablet,extended release 24 hr 100 mg PO DAILY 12/25/17 [History Last Taken Unknown] simvastatin 40 mg tablet 40 mg PO DAILY 12/25/17 [History Last Taken Unknown] hydrochlorothiazide 12.5 mg capsule 25 mg PO DAILY 01/22/18 [History Last Taken Unknown] irbesartan 75 mg tablet 150 mg PO BID 01/22/18 [History Last Taken Unknown] glipizide 5 mg tablet, extended release 24 hr 10 mg PO BID 10/20/18 [History Last Taken Unknown] ondansetron 4 mg disintegrating tablet 4 mg PO Q8H PRN PRN Nausea #10 tabs 10/20/18 [Rx Last Taken Unknown] albuterol sulfate 90 mcg/actuation aerosol inhaler (ProAir HFA) 1 inh inhalation Q6H 12/24/21 [History Last Taken Unknown] docusate sodium 100 mg capsule (Colace) 100 mg PO DAILY #30 caps 12/24/21 [Rx Last Taken Unknown] doxycycline monohydrate 100 mg capsule 100 mg PO BID 12/24/21 [History Last Taken Unknown] ipratropium 0.5 mg-albuterol 3 mg (2.5 mg base)/3 mL nebulization soln 3 ml inhalation Q4H PRN Wheezing 12/24/21 [History Last Taken Unknown] mirtazapine 15 mg tablet 15 mg PO QHS 12/24/21 [History Last Taken Unknown] ondansetron 4 mg disintegrating tablet 4 mg PO Q6H PRN nausea and vomiting #10 tabs 12/24/21 [Rx Last Taken Unknown] oxycodone-acetaminophen 5 mg-325 mg tablet (Percocet) 1 tab PO Q6H PRN pain 3 days #12 tabs 12/24/21 [Rx Last Taken Unknown] pantoprazole 40 mg tablet,delayed release 40 mg PO DAILY 12/24/21 [History Last Taken Unknown] semaglutide 0.25 mg or 0.5 mg (2 mg/1.5 mL) subcutaneous pen injector (Ozempic) 0.25 mg subcut QWEEK 12/24/21 [History Last Taken Unknown] tiotropium bromide 1.25 mcg/actuation mist for inhalation (Spiriva Respimat) 2 puff inhalation DAILY 12/24/21 [History Last Taken Unknown] Allergy/AdvReac Type Severity Reaction Status Date / Time metformin Allergy Severe Hives Verified 04/06/22 10:49 Penicillins Allergy Severe Anaphylaxis Verified 04/06/22 10:49 amoxicillin Allergy Anaphylaxis Verified 04/06/22 10:49 erythromycin base Allergy Unknown Verified 04/06/22 10:49 Sulfa (Sulfonamide Allergy Unknown Verified 04/06/22 10:49 Antibiotics) Family History Mother Diabetes Hypertension Father Hypertension Surgical History History of laparoscopic cholecystectomy History of lung surgery Social History Smoking Status: Former smoker second hand exposure: Yes ROS ROS ED Constitutional Constitutional ED: Reports chills and subjective; Denies fever(s) Eyes Eyes: Denies blurry vision or change in vision ENT ENT ED: Denies rhinorrhea or sore throat Cardiovascular Cardiovascular: Denies chest pain or palpitations Respiratory/Chest Respiratory/Chest: Reports cough; Denies dyspnea Gastrointestinal Gastrointestinal: Reports nausea; Denies vomiting Genitourinary Genitourinary ED: Denies dysuria or hematuria Musculoskeletal Musculoskeletal: Reports neck pain; Denies back pain Integumentary Denies abscess or rash Neurologic Neurologic: Reports headache(s); Denies weakness Allergic/Immunologic Allergic/Immunologic ED: Denies mouth swelling or urticaria EXAM Physical Exam Const Vital Signs: 04/06/22 10:49 04/06/22 10:58 04/06/22 11:36 Temperature 97.1 F L Temperature Source Temporal Pulse Rate 68 68 Respiratory Rate 18 16 Blood Pressure 164/86 H 162/125 H Blood Pressure Mean 112 137 Pulse Ox 97 99 98 Oxygen Delivery Method Room Air Room Air Room Air 04/06/22 11:37 04/06/22 11:48 04/06/22 11:58 Temperature 98.9 F 98.9 F 97.8 F Temperature Source Temporal Temporal Temporal Pulse Rate 65 67 66 Respiratory Rate 18 18 16 Blood Pressure 145/57 H 136/78 H 142/78 H Blood Pressure Mean 86 97 99 Pulse Ox 98 98 98 Oxygen Delivery Method Room Air Room Air Room Air 04/06/22 12:28 04/06/22 12:30 04/06/22 13:26 Temperature 98.7 F 97.9 F Temperature Source Temporal Temporal Pulse Rate 72 67 65 Respiratory Rate 16 16 16 Blood Pressure 149/73 H 152/75 H 153/69 H Blood Pressure Mean 98 100 97 Pulse Ox 99 98 98 Oxygen Delivery Method Room Air Room Air Room Air Positive well nourished, well developed and obese General Appearance ED: well developed and NAD Nutritional Appearance: obese HEENT Reports moist mucous membranes Neck supple and no JVD Resp normal respiratory effort and clear to auscultation bilaterally Cardio regular rate, regular rhythm and no murmurs GI normal to inspection, nondistended, normoactive bowel sounds and non-tender Palpation: soft Extremity normal to inspection General Extremety ED: Negative for edema or tenderness General Extremity: Negative for edema Neuro oriented x3 and CN's II-XII intact bilaterally Neuro Narrative: There is decreased sensation to light touch in the right upper and lower extremities. Belkis Coma Scale: document GCS findings Spontaneous Obeys Commands Oriented 15 Sensorium / Orientation: alert Speech: speech normal Motor Exam: strength abnormal other (Strength is 4 out of 5 in the right upper and lower extremity. Strength is 5/5 in the left upper and lower extremity.) Psych mental status grossly normal Skin no rashes or lesions noted NIHSS NIHSS Initial: 1a Level of Consciousness: 0 1b LOC Questions (Score 2 if aphasic/stupor): 0 1c LOC Commands (Only score 1st attempt): 0 2 Best Gaze (If aphasic, use reflexive mvmts.): 0 3 Visual: 0 4 Facial Palsy: 0 5 Motor Arm Right (UN = amputation/fusion): 1 5 Motor Arm Left: 0 6 Motor Leg Right: 1 6 Motor Leg Left: 0 8 Sensory (Aphasia/stupor=0 or 1, coma=2): 1 9 Best Language: 0 10 Dysarthria (mute, coma=2, intubated=UN): 0 11 Extinction and Inattention (only scored if +): 0 Total Score: 3 MDM MDM MDM Narrative Medical decision making narrative: For furtherPatient is not a candidate for thrombolytics for possible stroke due to the greater than 12 hours since her onset of symptoms. Because of this, stroke alert was not called. CT scan of the brain was obtained. There is no acute intracranial abnormality. There are chronic changes. This was interpreted by the radiologist and reviewed by myself. Portable 1 view chest x-ray was obtained. On my interpretation, lung maharaj are clear. There is normal cardiac silhouette. Bony thorax is normal. There is no acute process noted. Radiologist also interpreted the x-ray and agrees. EKG was obtained. On my interpretation, it showed a normal sinus rhythm with a rate of 60. WA interval, QRS interval, and QTc intervals were all normal. [place] was normal. There are no acute ST or T wave changes. CBC was within normal limits. PT with INR and PTT were within normal limits. Basic metabolic profile was within normal limits. Glucose was slightly elevated at 139. High-sensitivity troponin was normal at 4. On reevaluation, patient states her sensation was starting to return. Patient states her arm pain has resolved. Patient still has some mild weakness in her right leg. Because of this, I recommended admission to the hospital for further stroke evaluation. Case was discussed with the hospitalist. He will admit the patient for further evaluation. Patient understands and is agreeable with the plan. All questions were answered. Lab Data Attestation: I reviewed the patient's lab results. Labs: Laboratory Results - last 24 hr 04/06/22 04/06/22 04/06/22 11:20 11:20 11:20 WBC 5.4 RBC 4.23 Hgb 12.3 Hct 36.5 L MCV 86.3 MCH 29.1 MCHC 33.7 RDW Std Deviation 41.3 RDW Coeff of Valery 13.2 Plt Count 285 MPV 11.0 Immature Gran % (Auto) 0.200 Neut % (Auto) 68.7 Lymph % (Auto) 17.4 L Brooke % (Auto) 9.1 Eos % (Auto) 3.7 Baso % (Auto) 0.9 Absolute Neuts (auto) 3.7 Absolute Lymphs (auto) 0.93 Nucleated RBC % 0 PT 12.2 INR 0.9 APTT 30.3 Sodium 139 Potassium 4.0 Chloride 104 Carbon Dioxide 28.0 Anion Gap 7 BUN 17 Creatinine 0.71 Estim Creat Clear Calc 47.78 Est GFR (MDRD) Af Amer 104 Est GFR (MDRD) Non-Af 86 BUN/Creatinine Ratio 23.8 H Glucose 139 H Calcium 11.0 H Troponin I High Sens 4 POC Glucose 04/06/22 12:44 WBC RBC Hgb Hct MCV MCH MCHC RDW Std Deviation RDW Coeff of Valery Plt Count MPV Immature Gran % (Auto) Neut % (Auto) Lymph % (Auto) Brooke % (Auto) Eos % (Auto) Baso % (Auto) Absolute Neuts (auto) Absolute Lymphs (auto) Nucleated RBC % PT INR APTT Sodium Potassium Chloride Carbon Dioxide Anion Gap BUN Creatinine Estim Creat Clear Calc Est GFR (MDRD) Af Amer Est GFR (MDRD) Non-Af BUN/Creatinine Ratio Glucose Calcium Troponin I High Sens POC Glucose 100 Radiography Diagnostic Testing: Clinical Impression(s) from Imaging Studies Brain CT 04/06/22 11:28 IMPRESSION: Chronic involutional changes of the brain. N.B. : The above Results were Read Back by Leobardo Mckenzie MD to Ivan Hutchinson and understanding confirmed on 04/06/2022 12:09:35 (ET). Electronically Signed: Leobardo Mckenzie MD at 12:11 EDT , ADDENDUM: 04/06/22 1218 IMPRESSION: Chronic involutional changes of the brain. N.B. : The above Results were Read Back by Leobardo Mckenzie MD to Ivan Hutchinson and understanding confirmed on 04/06/2022 12:09:35 (ET). Electronically Signed: Leobardo Mckenzie MD at 12:11 EDT , Chest X-Ray 04/06/22 11:55 IMPRESSION: Hyperinflation. The lungs are clear. Electronically Signed: Leobardo Mckenzie MD at 12:31 EDT , EKG Initial EKG: Attestation: I personally reviewed and interpreted this EKG as follows: Interpretation: Sinus Rhythm (60) and No Acute Injury Pattern Prior EKG tracings: available for review Prior: Unchanged (10/20/2018) Discharge Plan Triage Chief Complaint: Weakness ED Provider: Ivan Hutchinson Dx/Rx/DC Orders Clinical Impression: Stroke, COPD (chronic obstructive pulmonary disease), Obesity Prescriptions: No Action citalopram 40 MG tablet 20 mg PO DAILY Label Comments: TAKE 1 TABLET EVERY DAY metoprolol succinate 100 MG tablet extended release 24 hr 100 mg PO DAILY levothyroxine 150 MCG tablet 150 mcg PO DAILY simvastatin 40 tablet 40 mg PO DAILY Label Comments: hydrochlorothiazide 12.5 MG capsule 25 mg PO DAILY Label Comments: TAKE 1 CAPSULE EVERY DAY irbesartan 75 MG tablet 150 mg PO BID glipizide 5 MG tablet extended release 24 hr 10 mg PO BID ondansetron 4 MG tablet 4 mg PO Q8H PRN PRN (Reason: Nausea) Qty: 10 0RF ipratropium-albuterol 0.5 mg-3 mg(2.5 mg base)/3 mL Solution For Nebulization 3 ml INHALATION Q4H PRN (Reason: Wheezing) doxycycline monohydrate 100 mg Capsule 100 mg PO BID pantoprazole 40 mg Tablet,Delayed Release (Dr/Ec) 40 mg PO DAILY mirtazapine 15 mg Tablet 15 mg PO QHS albuterol sulfate [ProAir HFA] 90 mcg/actuation Hfa Aerosol Inhaler 1 inh INHALATION Q6H Spiriva Respimat 1.25 mcg/actuation Mist 2 puff INHALATION DAILY Ozempic 0.25 mg or 0.5 mg(2 mg/1.5 mL) Pen Injector 0.25 mg SUBCUT QWEEK Rx Instructions: for 4 doses oxycodone-acetaminophen [Percocet] 5-325 mg tablet 1 tab PO Q6H PRN (Reason: pain) 3 Days Qty: 12 0RF docusate sodium [Colace] 100 mg capsule 100 mg PO DAILY Qty: 30 0RF ondansetron 4 mg tablet,disintegrating 4 mg PO Q6H PRN (Reason: nausea and vomiting) Qty: 10 0RF Primary Care Provider: Vanessa East Referrals: Vanessa East MD [Primary Care Provider] - Disposition Disposition: Acute Care Hospital [facility]
--- NOTE | 2022-04-06 11:28 | CT_ITS ---
STUDY: CT HEAD STROKE PROTOCOL W/O CONTRAST INJECTION REASON FOR EXAM: Female, 71 years old. Neuro deficit, acute, stroke suspected RADIATION DOSAGE (If Supplied By Facility): CTDIvol = ( 44.99 ) mGy, DLP = ( 812.98 ) mGycm TECHNIQUE: Transaxial CT imaging of the brain was performed without administration of intravenous contrast material. Individualized dose optimization techniques were used for this CT. COMPARISON: Comparison is made with prior study 12/24/2021. FINDINGS: Normal soft tissue structures. There is hyperostosis frontalis internus. There is mild cerebral atrophy with widening of the extra-axial spaces and ventricular dilatation. There are areas of decreased attenuation within the white matter tracts of the supratentorial brain, consistent with microvascular disease changes. Normal basal ganglia and thalami. Normal brainstem. Normal cerebellum. There is no intracranial hemorrhage. There are no findings of an acute ischemic infarction. Atherosclerotic calcific plaques of the cavernous portions of the internal carotid arteries bilaterally. Normal visualized paranasal sinuses. ASPECT score: 10 CT/STROKE Brain/Head without Cont IMPRESSION: Chronic involutional changes of the brain. N.B. : The above Results were Read Back by Leobardo Mckenzie MD to Ivan Hutchinson and understanding confirmed on 04/06/2022 12:09:35 (ET). Electronically Signed: Leobardo Mckenzie MD at 12:11 EDT ,
--- NOTE | 2022-04-06 11:28 | EKG12_ITS ---
Test Reason : dysrhythmia Blood Pressure : / mmHG Vent. Rate : 060 BPM Atrial Rate : 060 BPM P-R Int : 154 ms QRS Dur : 086 ms QT Int : 412 ms P-R-T Axes : 004 000 029 degrees QTc Int : 412 ms Normal sinus rhythm Normal ECG Confirmed by RAJWINDER HUTCHINSON, ROEL ([id number]), story editor NANI TRACEY ([id number]) on 04/07/2022 9:14:02 AM Referred By: VERA Confirmed By:ROEL PURDY MD
--- NOTE | 2022-04-06 11:55 | RAD_ITS ---
STUDY: X-RAY CHEST REASON FOR EXAM: Female, 71 years old. Neuro deficit, acute, stroke suspected TECHNIQUE: Single AP portable view of the chest. COMPARISON: Comparison is made with prior examination 10/13/2021. FINDINGS: EKG electrodes are seen. Hyperinflation. The lungs are clear. There is no demonstrated pleural abnormality. Normal size heart. Normal mediastinum and arianne. Normal visualized pulmonary arteries. There is atherosclerotic calcification of the aortic arch with tortuosity. There are diffuse degenerative changes of the visualized thoracic spine. Normal visualized ribs, clavicles, and shoulders. There is no demonstrated abnormality of the visualized soft tissue structures of the upper abdomen. RAD/Chest 1 View IMPRESSION: Hyperinflation. The lungs are clear. Electronically Signed: Leobardo Mckenzie MD at 12:31 EDT ,
[2022-04-06 12:06] LABS: International Normalized Ratio 0.9; Prothrombin Time (Protime)PT. 12.2 SECONDS (11.7-14.9)
[2022-04-06 12:07] LABS: Absolute Lymphocyte Count 0.93 X10^3/uL (0.83-4.51); Absolute Neutrophil Count 3.7 X10^3/uL (2.0-7.7); Basophil# 0.05 X10^3/uL; Basophil% 0.9 % (0-1); Eosinophils% 3.7 % (0-5); Hematocrit 36.5 % (37-47); Hemoglobin 12.3 g/dL (12.0-15.0); Lymphocyte # 0.93 X10^3/ul (0.83-4.51); Lymphocyte % 17.4 % (19-41); Mean Corp Hgb Conc 33.7 g/dL (32-36); Mean Corpuscular Hgb 29.1 pg (27.0-32.0); Mean Corpuscular Volume 86.3 fL (81-99); Monocyte# 0.49 X10^3/uL; Monocyte% 9.1 % (0-10); NRBC Flagged by Analyzer 0 % (0-5); Neutrophil # 3.68 X10^3/uL (2.7-7.7); Neutrophil % 68.7 % (47-70); Platelet Count 285 K/mm3 (150-450); RBC Distribution Width CV 13.2 % (11.6-14.6); RBC Distribution Width SD 41.3 fl (35.1-43.9); Red Blood Count 4.23 M/mm3 (4.2-5.4); White Blood Count 5.4 K/mm3 (4.4-11.0)
[2022-04-06 12:16] LABS: Partial Thromboplast Time 30.3 Seconds (24.1-36.2)
[2022-04-06 12:33] LABS: Anion Gap 7 (5-15); BUN 17 mg/dL (7-18); BUN/Creat Ratio 23.8 RATIO (10-20); Chloride 104 mmol/L (98-107); Creatinine, Serum 0.71 mg/dL (0.55-1.02); EST Glomerular Filtration Rate 86 mL/min (>60); Est Glom Filt Rate - Afr Amer 104 mL/min (>60); Estimated Creatinine Clearance 47.78 ml/min; Glucose 139 mg/dL (74-106); Sodium Level 139 mmol/L (136-145); Troponin-I HS 4 pg/mL (3.0-54.0)
[2022-04-06 13:05] LABS: Bedside Glucose 100 mg/dL (74-106)
--- NOTE | 2022-04-06 14:01 | NURSING ---
DR AMBAR LOPEZ
--- NOTE | 2022-04-06 14:07 | NURSING ---
PCU OBS JOPPERI STROKE
--- NOTE | 2022-04-06 14:34 | HP.PCM.HOS_ITS ---
HPI - General General Date of Admission: 04/06/22 Date of Service: 04/06/22 Chief Complaint: Right-sided weakness and numbness HPI Narrative IMANI BLAKE, is a 71 F who presents with right-sided weakness and numbness. Symptoms began at 10 PM on the nin. Patient was noticing that her right leg felt off and that she was stumbling and dragging her right foot. Symptoms persisted and she is began noticing right arm weakness and numbness as well as right face weakness. She was concerned and went to her primary care physician's office and was directed here. Patient had a CAT scan that showed involutional changes. Given that the onset was at 10 PM last night, patient was out of the window for thrombolytics. The hospital service was contacted for admission. Patient has never had a stroke nor TIA before. [facility] Medical History (Updated 04/06/22 @ 14:[address] Ivan Zaidi, DO) Acute sinusitis Adrenal adenoma Adult hypothyroidism Allergic rhinitis Anxiety Asthma Back pain Bronchitis COPD (chronic obstructive pulmonary disease) Cough Depression Diabetes mellitus associated with genetic syndrome Diabetes mellitus, type 2 Eczema Enlarged lymph nodes Fatigue Folliculitis Hypercalcemia Hypercholesteremia Hypertension Hypoglycemia Meralgia paresthetica Nausea Obesity Osteopenia Palpitations Postmenopausal Right hip pain Sarcoidosis Sciatica Sleep apnea in adult Sleep disorder Vitamin D deficiency Wheezing Home Medications citalopram 40 mg tablet 20 mg PO DAILY 12/25/17 [History Last Taken Unknown] levothyroxine 150 mcg tablet 150 mcg PO DAILY 12/25/17 [History Last Taken Unknown] metoprolol succinate 100 mg tablet,extended release 24 hr 100 mg PO DAILY 12/25/17 [History Last Taken Unknown] simvastatin 40 mg tablet 40 mg PO DAILY 12/25/17 [History Last Taken Unknown] hydrochlorothiazide 12.5 mg capsule 25 mg PO DAILY 01/22/18 [History Last Taken Unknown] irbesartan 75 mg tablet 150 mg PO BID 01/22/18 [History Last Taken Unknown] glipizide 5 mg tablet, extended release 24 hr 10 mg PO BID 10/20/18 [History Las t Taken Unknown] ondansetron 4 mg disintegrating tablet 4 mg PO Q8H PRN PRN Nausea #10 tabs 10/20/18 [Rx Last Taken Unknown] albuterol sulfate 90 mcg/actuation aerosol inhaler (ProAir HFA) 1 inh inhalation Q6H 12/24/21 [History Last Taken Unknown] docusate sodium 100 mg capsule (Colace) 100 mg PO DAILY #30 caps 12/24/21 [Rx Last Taken Unknown] doxycycline monohydrate 100 mg capsule 100 mg PO BID 12/24/21 [History Last Taken Unknown] ipratropium 0.5 mg-albuterol 3 mg (2.5 mg base)/3 mL nebulization soln 3 ml inhalation Q4H PRN Wheezing 12/24/21 [History Last Taken Unknown] mirtazapine 15 mg tablet 15 mg PO QHS 12/24/21 [History Last Taken Unknown] ondansetron 4 mg disintegrating tablet 4 mg PO Q6H PRN nausea and vomiting #10 tabs 12/24/21 [Rx Last Taken Unknown] oxycodone-acetaminophen 5 mg-325 mg tablet (Percocet) 1 tab PO Q6H PRN pain 3 days #12 tabs 12/24/21 [Rx Last Taken Unknown] pantoprazole 40 mg tablet,delayed release 40 mg PO DAILY 12/24/21 [History Last Taken Unknown] semaglutide 0.25 mg or 0.5 mg (2 mg/1.5 mL) subcutaneous pen injector (Ozempic) 0.25 mg subcut QWEEK 12/24/21 [History Last Taken Unknown] tiotropium bromide 1.25 mcg/actuation mist for inhalation (Spiriva Respimat) 2 puff inhalation DAILY 12/24/21 [History Last Taken Unknown] Allergy/AdvReac Type Severity Reaction Status Date / Time metformin Allergy Severe Hives Verified 04/06/22 10:49 Penicillins Allergy Severe Anaphylaxis Verified 04/06/22 10:49 amoxicillin Allergy Anaphylaxis Verified 04/06/22 10:49 erythromycin base Allergy Unknown Verified 04/06/22 10:49 Sulfa (Sulfonamide Allergy Unknown Verified 04/06/22 10:49 Antibiotics) Family History Mother Diabetes Hypertension Father Hypertension Surgical History History of laparoscopic cholecystectomy History of lung surgery Social History Smoking Status: Former smoker second hand exposure: Yes ROS ROS Agata Does get eczema in her right ear. No bleeding problems. No bowel or bladder issues. No expressive nor receptive aphasia. All review of systems were negative except as mentioned above in the history of present illness and the other review of systems. Vital Signs Vital Signs Vital Signs: 04/06/22 10:49 04/06/22 10:58 04/06/22 11:36 Temperature 36.2 C L Temperature Source Temporal Pulse Rate 68 68 Respiratory Rate 18 16 Blood Pressure 164/86 H 162/125 H Blood Pressure Mean 112 137 Pulse Ox 97 99 98 Oxygen Delivery Method Room Air Room Air Room Air 04/06/22 11:37 04/06/22 11:48 04/06/22 11:58 Temperature 37.2 C 37.2 C 36.6 C Temperature Source Temporal Temporal Temporal Pulse Rate 65 67 66 Respiratory Rate 18 18 16 Blood Pressure 145/57 H 136/78 H 142/78 H Blood Pressure Mean 86 97 99 Pulse Ox 98 98 98 Oxygen Delivery Method Room Air Room Air Room Air 04/06/22 12:28 04/06/22 12:30 04/06/22 13:26 Temperature 37.1 C 36.6 C Temperature Source Temporal Temporal Pulse Rate 72 67 65 Respiratory Rate 16 16 16 Blood Pressure 149/73 H 152/75 H 153/69 H Blood Pressure Mean 98 100 97 Pulse Ox 99 98 98 Oxygen Delivery Method Room Air Room Air Room Air 04/06/22 14:04 Temperature Temperature Source Pulse Rate 70 Respiratory Rate 17 Blood Pressure 145/65 H Blood Pressure Mean 91 Pulse Ox 97 Oxygen Delivery Method Room Air Weight Weight: 105.687 kg Body Mass Index (BMI) 38.7 Physical Exam Const alert and no apparent distress HEENT normocephalic, head/scalp atraumatic, hearing grossly normal bilaterally and moist oral mucous membranes Resp normal respiratory effort, no retractions, no use of accessory muscles and clear to auscultation bilaterally Cardio regular rate, regular rhythm, S1 normal heart sound and S2 normal heart sound GI normal to inspection, nondistended, normoactive bowel sounds, soft to palpation, non-tender and non-distended Extremity normal to inspection Neuro oriented x3, CN's II-XII intact bilaterally and moves all extremities Neuro Narrative: Muscle strength 5-5 in upper extremities bilaterally but with some subtle ataxia on the right. Patient's muscle strength was 5-5 in the left lower extremity and 4 out of 5 in the right lower extremity. [id number] was normal on the left was not tested on the right given the weakness. Coordination / Balance: [id number] test normal Psych affect normal Results Lab / Micro Data Attestation: I reviewed the patient's lab results. Result Diagrams: 04/06/22 11:20 04/06/22 11:20 Labs: Laboratory Results - last 24 hr 04/06/22 11:20: WBC 5.4, RBC 4.23, Hgb 12.3, Hct 36.5 L, MCV 86.3, MCH 29.1, MCHC 33.7, RDW Std Deviation 41.3, RDW Coeff of Valery 13.2, Plt Count 285, MPV 11.0, Immature Gran % (Auto) 0.200, Neut % (Auto) 68.7, Lymph % (Auto) 17.4 L, [place] % (Auto) 9.1, Eos % (Auto) 3.7, Baso % (Auto) 0.9, Absolute Neuts (auto) 3.7, Absolute Lymphs (auto) 0.93, Nucleated RBC % 0 04/06/22 11:20: PT 12.2, INR 0.9, APTT 30.3 04/06/22 11:20: Sodium 139, Potassium 4.0, Chloride 104, Carbon Dioxide 28.0, Anion Gap 7, BUN 17, Creatinine 0.71, Estim Creat Clear Calc 47.78, Est GFR (MDRD) Af Amer 104, Est GFR (MDRD) Non-Af 86, BUN/Creatinine Ratio 23.8 H, Gluc ose 139 H, Calcium 11.0 H, Troponin I High Sens 4 04/06/22 12:44: POC Glucose 100 EKG Initial EKG: Attestation: I personally reviewed and interpreted this EKG as follows: Prior EKG tracings: available for review EKG Rhythm Intrepretation: Sinus Rhythm Radiology Impression Brain CT 04/06/22 11:28 IMPRESSION: Chronic involutional changes of the brain. N.B. : The above Results were Read Back by Leobardo Mckenzie MD to Ivan Hutchinson and understanding confirmed on 04/06/2022 12:09:35 (ET). Electronically Signed: Leobardo Mckenzie MD at 12:11 EDT , ADDENDUM: 04/06/22 1218 IMPRESSION: Chronic involutional changes of the brain. N.B. : The above Results were Read Back by Leobardo Mckenzie MD to Ivan Hutchinson and understanding confirmed on 04/06/2022 12:09:35 (ET). Electronically Signed: Leobardo Mckenzie MD at 12:11 EDT , Chest X-Ray 04/06/22 11:55 IMPRESSION: Hyperinflation. The lungs are clear. Electronically Signed: Leobardo Mckenzie MD at 12:31 EDT , Assessment & Plan Assessment/Plan (1) Stroke: PLAN: Onset was 2200 on the . Patient is on the window for thrombolytic therapy. Start patient on aspirin Plan: * MRI of the brain * MRA of the head neck * 2D echocardiogram * Fasting lipid panel * After MRI and echo, consult [facility] telemetry neurology for further recommendations * May need an event monitor as outpatient as patient does complain of palpitations. Unclear if this is atrial fibrillation but it may need to be ruled out. Currently, she is in normal sinus rhythm. (2) Hypercalcemia: PLAN: Unclear etiology patient was previously scheduled to see nephrology as outpatient for further evaluation. Plan: * Check 25-hydroxy vitamin D level and parathyroid hormone level. (3) Diabetes mellitus, type 2: PLAN: Takes glipizide at home Plan: * Continue with glipizide * Check an A1c * Sliding scale insulin while she is here PLAN: Plan Chronic conditions * COPD: Stable on room air * Hypertension: Continue with HCTZ, irbesartan, metoprolol succinate * Hypothyroidism: Continue with levothyroxine VTE prophylaxis: Moderate risk. Low molecular weight heparin CODE STATUS: Addressed with the patient. Patient wishes to be DNR Comfort Care arrest and is okay with short-term intubation Charges/Coding Visit Charges Inpatient E&M: 73741 Init Hosp L3
--- NOTE | 2022-04-06 14:59 | ECHOCS_ITS ---
Reason For Study: TIA/CVA Procedure This was a 2D Doppler, Color Flow transthoracic echocardiogram. The study was technically difficult. Contrast injection was performed. Exam performed portable in patient room. Left Ventricle Normal LV size. Left ventricular systolic function is normal. The estimated ejection fraction is 60 %. Stage 1 diastolic dysfunction. No regional wall motion abnormalities noted. Right Ventricle Normal RV size. Normal systolic function. Atria Normal left atrium. Normal right atrium. Bubble contrast study negative for right to left interatrial shunt. Mitral Valve Normal mitral valve. Tricuspid Valve Normal tricuspid valve. Mild tricuspid valve insufficiency. Pulmonary artery systolic pressure is 32 mmHg. Aortic Valve Trisinus/trileaflet aortic valve. Mild (1+) aortic valve insufficiency. Pulmonic Valve Normal pulmonic valve. Great Vessels Normal aortic root. The pulmonary artery is normal size. Normal inferior vena cava. Pericardium/Pleural No pericardial effusion. Medication Diluted definity 1.5ml given slow IV push to enhance endocardial definition. Performed a rapid injection of agitated mix of 9 cc saline and 1cc air to assess for atrial septal defect. MMode/2D Measurements & Calculations LVIDd: 5.3 cm IVSd: 1.0 cm LA dimension: 4.0 cm LVIDs: 3.6 cm LVPWd: 1.1 cm RVDd: 3.5 cm FS: 32.7 % LAV(MOD-bp): 66.7 ml LA A4 area: 19.9 cm2 RA A4 area: 14.3 cm2 LAV(MOD-bp) Indexed: 31.0 ml/m2 LAV(MOD-sp2): 70.9 ml LAV(MOD-sp4): 58.2 ml Time Measurements MV dec time: 0.18 sec Doppler Measurements & Calculations MV E max yony: 90.8 cm/sec Lat Peak E' Yony: 11.5 cm/sec Med Peak E' Yony: 9.4 cm/sec MV A max yony: 94.6 cm/sec E/E' lat: 7.9 E/E' med: 9.7 MV E/A: 0.96 MV V2 max: 121.4 cm/sec MV P1/2t max yony: 121.4 cm/sec Ao V2 max: 132.6 cm/sec MV max P.9 mmHg MV P1/2t: 66.0 msec Ao max P.0 mmHg MV V2 mean: 74.9 cm/sec MV dec slope: 539.1 cm/sec2 Ao V2 mean: 90.2 cm/sec MV mean P.6 mmHg Ao mean P.8 mmHg MV V2 VTI: 39.9 cm MVA(P1/2t): 3.3 cm2 Ao V2 VTI: 33.5 cm AI max yony: 377.4 cm/sec LV V1 max: 114.0 cm/sec PA V2 max: 83.8 cm/sec AI max P.0 mmHg LV V1 max P.2 mmHg PA V2 mean: 60.3 cm/sec AI dec slope: 175.7 cm/sec2 LV V1 mean P.9 mmHg AI P1/2t: 629.2 msec LV V1 mean: 81.0 cm/sec LV V1 VTI: 28.3 cm TR max yony: 270.7 cm/sec TR max P.3 mmHg ECHO/Echo Complete W/ Contrast Interpretation Summary Normal LV size. Left ventricular systolic function is normal. The estimated ejection fraction is 60 %. Stage 1 diastolic dysfunction. Contrast injection was performed. Ordering Physician: Ivan Zaidi Referring Physician: Vanessa East M.D. Performed By: Yong Sanchez RCS
[2022-04-06 15:47] LABS: Hemoglobin A1c 6.2 % (3.8-5.6)
[2022-04-06 15:50] LABS: Troponin-I HS 6 pg/mL (3.0-54.0)
[2022-04-06] MEDS: Aspirin 325 MG Tablet PO (16:17)
[2022-04-06] MEDS: glipiZIDE XL 5 MG Tablet 10 MG PO (16:21)
--- NOTE | 2022-04-06 16:36 | EKG12_ITS ---
Test Reason : cp Blood Pressure : / mmHG Vent. Rate : 062 BPM Atrial Rate : 062 BPM P-R Int : 150 ms QRS Dur : 084 ms QT Int : 410 ms P-R-T Axes : -08 002 023 degrees QTc Int : 416 ms Poor data quality, interpretation may be adversely affected Normal sinus rhythm with sinus arrhythmia Normal ECG When compared with ECG of 06-APR-2022 11:45, MANUAL COMPARISON REQUIRED, DATA IS UNCONFIRMED Confirmed by RAJWINDER HUTCHINSON, ROEL ([id number]), city editor NANI TRACEY ([id number]) on 04/07/2022 1:50:25 PM Referred By: Emilie Confirmed By:ROEL PURDY MD
[2022-04-06 16:50] LABS: Bedside Glucose 90 mg/dL (74-106)
[2022-04-06 17:32] LABS: PTHIN 61.6 pg/mL (18.4-80.1)
[2022-04-06 17:34] LABS: Vitamin D,25 Hydroxy 66.7 ng/mL
--- NOTE | 2022-04-06 18:40 | NURSING ---
NIH and VS will be late d/t pt being in MRI
--- NOTE | 2022-04-06 18:45 | MRI_ITS ---
STUDY: MRA OF THE HEAD WITHOUT CONTRAST REASON FOR EXAM: Female, 71 years old. CVA TECHNIQUE: 3-D [id number] (TOF) imaging was performed with MIPs. The study was performed unenhanced. COMPARISON: None. FINDINGS: Normal bilateral petrous carotid arteries. Normal right cavernous carotid artery with a normal supraclinoid bifurcation. Normal left cavernous carotid artery with a normal supraclinoid bifurcation. Normal right A1 segments of the anterior cerebral artery. Normal left A1 segments of the anterior cerebral artery. Anterior communicating artery not well exemplified. Normal bilateral A2 segments of the anterior cerebral arteries. Normal right M1 and M2 segments of the middle cerebral arteries, with a normal M1 bifurcation. Normal left M1 and M2 segments of the middle cerebral arteries, with a normal M1 bifurcation. No posterior communicating arteries. Normal bilateral vertebral arteries. Normal basilar artery with a normal basilar bifurcation. The visualized bilateral superior cerebellar (SCA) arteries are normal. Normal bilateral P1, P2 and visualized P3 segments of the posterior cerebral arteries. There is no demonstrated aneurysm of the lower [place]. There is no major vessel occlusion or hemodynamically significant stenosis. There is no demonstrated abnormality of the visualized brain. MRI/MRA Head ONLY without Contrast IMPRESSION: Normal MRA of the head Electronically Signed: Fernando Landry DO at 21:01 EDT ,
--- NOTE | 2022-04-06 19:01 | MRI_ITS ---
STUDY: MRA NECK WITHOUT CONTRAST REASON FOR EXAM: Female, 71 years old. CVA TECHNIQUE: Source images were obtained, MIPs were performed. The study was performed unenhanced. COMPARISON: MR angiography head and MRI brain obtained in conjunction with this exam. FINDINGS: RIGHT CAROTID ARTERIES: Normal right common carotid artery (CCA). Normal right common carotid bulb. Normal origin of the right internal carotid (ICA) artery without a hemodynamically significant stenosis. Normal visualized cervical portion of the right internal carotid artery. There is moderate tortuosity right internal carotid artery, cervical portion. Normal origin of the right external carotid artery (ECA). LEFT CAROTID ARTERIES: Normal left common carotid artery (CCA). Normal left common carotid bulb. Normal origin of the left internal carotid (ICA) artery without a hemodynamically significant stenosis. Normal visualized cervical portion of the left internal carotid artery. Normal origin of the left external carotid artery (ECA). VERTEBRAL ARTERIES: Normal antegrade flow within the bilateral vertebral artery without a hemodynamically significant stenosis. MRI/MRA Neck without Contrast IMPRESSION: Normal bilateral cervical carotid and vertebral arteries. Electronically Signed: Fernando Landry DO at 20:59 EDT ,
--- NOTE | 2022-04-06 19:15 | MRI_ITS ---
STUDY: MRI BRAIN WITHOUT CONTRAST REASON FOR EXAM: Female, 71 years old. CVA TECHNIQUE: Standardized multiplanar fat and water weighted pulse sequences were obtained. COMPARISON: MR angiography head and neck obtained in conjunction with this exam. FINDINGS: Normal size of the ventricles and extra-axial spaces for the patient''s age. There is moderate bilateral periventricular increased T2 and FLAIR signal, especially in the posterior periatrial region. There is also some mild, ill-defined, increased T2 and FLAIR signal in the central aspect of the [place]. There is no evidence for recent intracranial ischemia or other cause of cytotoxic edema on diffusion weighted imaging (DWI). Normal T2* images of the brain without demonstrated susceptibility artifact. There is no demonstrated hemosiderin stain. Normal bilateral basal ganglia. Normal thalami. There is no extra-axial fluid accumulation. Normal flow voids within the major intracranial circulation suggesting patency by spin echo criteria. Normal sella turcica, pituitary gland, infundibular stalk, optic chiasm and hypothalamus. Normal tectal plate and pineal gland. Normal cerebellum. Normal basal cisterns. Normal bilateral temporal bones. Normal bilateral internal auditory canals. Normal visualized paranasal sinuses. Normal calvarium and skull base. Normal visualized upper cervical spine. MRI/Brain without Contrast IMPRESSION: Multiple, symmetric, small areas of increased T2 and FLAIR signal involving the periventricular white matter, periatrial region and central salv[place] most likely representing chronic small vessel ischemic changes. There is no associated restricted diffusion. Somewhat atypical involvement of the [place]. No associated pontine enlargement to suggest glioma. Vasculitis could potentially have a similar appearance but there is no evidence of vasculitis on comparison MR angiography. Electronically Signed: Fernando Landry DO at 20:56 EDT ,
[2022-04-06] MEDS: Ondansetron ODT 4 MG Tablet PO (20:11)
[2022-04-06] MEDS: Ipratropium/Albuterol Sulfate 3 ML AMPUL.NEB INHALATION (20:49)
[2022-04-06] MEDS: Losartan Potassium 50 MG Tablet PO (22:42)
[2022-04-06] MEDS: Mirtazapine 15 MG Tablet PO (22:42)
[2022-04-06] MEDS: Atorvastatin Calcium 20 MG Tablet PO (22:42)
[2022-04-07] VITALS (13 sets, daily range): BP systolic 118–143; BP diastolic 54–76; PULSE 65–79; RESP 15–18; TEMP 36.2–37.2; O2SAT 93–98; BMI 40.4
[2022-04-07 00:41] LABS: Bedside Glucose 108 mg/dL (74-106)
[2022-04-07] MEDS: Levothyroxine 150 MCG Tablet PO (05:36)
[2022-04-07] MEDS: Ipratropium/Albuterol Sulfate 3 ML AMPUL.NEB INHALATION ×2 (06:33→19:16)
[2022-04-07 07:00] LABS: Bedside Glucose 86 mg/dL (74-106)
[2022-04-07 07:04] LABS: Cholesterol 175 mg/dL (200); High Density Lipoprotein 37 mg/dL; Triglycerides 230 mg/dL; Very Low Density Lipoprotein 46 mg/dL (5-40)
[2022-04-07] MEDS: Losartan Potassium 50 MG Tablet PO ×2 (07:44→22:14)
[2022-04-07] MEDS: hydroCHLOROthiazide 25 MG Tablet PO (07:45)
[2022-04-07] MEDS: Metoprolol(XL)Succ 100 MG Tablet PO (07:45)
[2022-04-07] MEDS: Docusate Sodium 100 MG Capsule PO (07:45)
[2022-04-07] MEDS: Enoxaparin 40 MG/0.4 ML Syringe SC (07:45)
[2022-04-07] MEDS: Citalopram 20 MG Tablet PO (07:45)
[2022-04-07] MEDS: glipiZIDE XL 5 MG Tablet 10 MG PO ×2 (07:46→16:28)
--- NOTE | 2022-04-07 09:04 | PN.HOSP_ITS ---
Subjective Subjective DOS 04/07/22 CC: RLE weakness Ms. Vinson reports continued weakness and dullness in her RLE though feels it is somewhat better and was able to ambulate to the bathroom assisted though required a walker. She reports when she came in her RUE was also weak and dull but felt that resolved until PE when she noted it was still weak. Denies changes in vision, headache, slurred speech. Denies CP or SOB. No bowel or bladder changes. Denies back or neck pain. Does have some pain behind left knee that goes up and R shoulder but denies other complaints today. eating fair. Objective Data Objective Data Vital Signs: Vital Signs Temp Pulse Resp BP Pulse Ox O2 Del Method 97.1 F L 79 15 135/76 H 93 Room Air 04/07/22 07:50 04/07/22 07:50 04/07/22 07:50 04/07/22 07:50 04/07/22 07:50 04/07/22 07:50 Oxygen Delivery Method Room Air Weight: 110.3 kg Body Mass Index (BMI) 40.4 Intake & Output: Intake and Output for Last 24 Hours 04/05/22 04/06/22 04/07/22 23:59 23:59 23:59 Intake Total 900 / 900 240 / 240 Balance 900 / 900 240 / 240 Lab / Micro Data Result Diagrams: 04/06/22 11:20 04/06/22 11:20 Labs: Laboratory Results - last 24 hr 04/06/22 11:20: WBC 5.4, RBC 4.23, Hgb 12.3, Hct 36.5 L, MCV 86.3, MCH 29.1, MCHC 33.7, RDW Std Deviation 41.3, RDW Coeff of Valery 13.2, Plt Count 285, MPV 11.0, Immature Gran % (Auto) 0.200, Neut % (Auto) 68.7, Lymph % (Auto) 17.4 L, [place] % (Auto) 9.1, Eos % (Auto) 3.7, Baso % (Auto) 0.9, Absolute Neuts (auto) 3.7, Absolute Lymphs (auto) 0.93, Nucleated RBC % 0 04/06/22 11:20: PT 12.2, INR 0.9, APTT 30.3 04/06/22 11:20: Sodium 139, Potassium 4.0, Chloride 104, Carbon Dioxide 28.0, Anion Gap 7, BUN 17, Creatinine 0.71, Estim Creat Clear Calc 47.78, Est GFR (MDRD) Af Amer 104, Est GFR (MDRD) Non-Af 86, BUN/Creatinine Ratio 23.8 H, Glucose 139 H, Calcium 11.0 H, Troponin I High Sens 4 04/06/22 11:20: Hemoglobin A1c 6.2 H 04/06/22 11:20: Vitamin D 25-Hydroxy 66.7 04/06/22 11:20: PTH Intact 61.6 04/06/22 12:44: POC Glucose 100 04/06/22 15:05: Troponin I High Sens 6 04/06/22 16:17: POC Glucose 90 04/06/22 22:41: POC Glucose 108 H 04/07/22 05:55: Triglycerides 230 H, Cholesterol 175, LDL Cholesterol 92, VLDL Cholesterol 46 H, HDL Cholesterol 37 L 04/07/22 06:27: POC Glucose 86 Radiography Diagnostic Testing: Radiology Impression Brain CT 04/06/22 11:28 IMPRESSION: Chronic involutional changes of the brain. N.B. : The above Results were Read Back by Leobardo Mckenzie MD to Ivan Hutchinson and understanding confirmed on 04/06/2022 12:09:35 (ET). Electronically Signed: Leobardo Mckenzie MD at 12:11 EDT , ADDENDUM: 04/06/22 1218 IMPRESSION: Chronic involutional changes of the brain. N.B. : The above Results were Read Back by Leobardo Mckenzie MD to Ivan Hutchinson and understanding confirmed on 04/06/2022 12:09:35 (ET). Electronically Signed: Leobardo Mckenzie MD at 12:11 EDT , Chest X-Ray 04/06/22 11:55 IMPRESSION: Hyperinflation. The lungs are clear. Electronically Signed: Leobardo Mckenzie MD at 12:31 EDT , Echocardiogram 04/06/22 14:59 Interpretation Summary Normal LV size. Left ventricular systolic function is normal. The estimated ejection fraction is 60 %. Stage 1 diastolic dysfunction. Contrast injection was performed. Ordering Physician: Ivan Zaidi Referring Physician: Vanessa East M.D. Performed By: Yong Sanchez RCS Head MRA 04/06/22 18:45 IMPRESSION: Normal MRA of the head Electronically Signed: Fernando Landry DO at 21:01 EDT , Neck MRA 04/06/22 19:01 IMPRESSION: Normal bilateral cervical carotid and vertebral arteries. Electronically Signed: Fernando Landry DO at 20:59 EDT , Brain MRI 04/06/22 19:15 IMPRESSION: Multiple, symmetric, small areas of increased T2 and FLAIR signal involving the periventricular white matter, periatrial region and central [place] most likely representing chronic small vessel ischemic changes. There is no associated restricted diffusion. Somewhat atypical involvement of the [place]. No associated pontine enlargement to suggest glioma. Vasculitis could potentially have a similar appearance but there is no evidence of vasculitis on comparison MR angiography. Electronically Signed: Fernando Landry, DO at 20:56 EDT , Physical Exam Const alert and oriented x3 HEENT head/scalp atraumatic and moist oral mucous membranes Eyes PERRL and EOMs intact bilaterally Eyes Narrative: Nystagmus on far lateral gaze bilaterally, symmetrical Neck supple Resp normal respiratory effort and clear to auscultation bilaterally Cardio regular rate and regular rhythm GI soft to palpation, non-tender and non-distended Extremity Extremity Narrative: Able to move all extremities, no swelling, slight pain when pushing on legs, 5/5 strength in SUZI and LL extremities, 4/5 in RUE and 3/5 in RLE, vending machine repairer strength L>R slightly Neuro oriented x3 and CN's II-XII intact bilaterally Neuro Narrative: Finger to nose without dysmetria, no dysarthria, patellar reflex difficult to elicit on L side, 1+ on right, no clonus, RUE no difference in reflexes noted Psych affect normal Assessment & Plan Assessment/Plan (1) Stroke: (2) Hypercalcemia: (3) Diabetes mellitus, type 2: PLAN: Plan 1. Stroke like symptoms Onset was 2200 on the . Out of the window for thrombolytics Start patient on aspirin CT with microvascular changes MRI brain showed multiple symmetric increased T2 flair signal in the periventricular white matter MRA head and neck unremarkable Echo with Gd 1 diastolic dysfunction, EF 60% On tele, current NSR Lipid panel pending PT/OT eval Neurology consulted, appreciate recs Hypercalcemia * Unclear etiology patient was previously scheduled to see nephrology as outpat ient for further evaluation. * Vit D level and PTH unremarkable, pt appears to have referral to endo outpt * Endorses being up to date on age appropraite cancer screenings * does not appear to effect mentation at this time DMII Takes glipizide at home Plan: * Continue with glipizide * Check an A1c * Sliding scale insulin while she is here Chronic conditions * COPD: Stable on room air * Hypertension: Continue with HCTZ, irbesartan, metoprolol succinate * Hypothyroidism: Continue with levothyroxine VTE prophylaxis: Moderate risk. Low molecular weight heparin CODE STATUS: Addressed with the patient. Patient wishes to be DNR Comfort Care arrest and is okay with short-term intubation Charges/Coding Visit Charges Inpatient E&M: 06592 Subs Hosp L2
--- NOTE | 2022-04-07 09:36 | TELEMED_ITS ---
[facility] Tele[facility] has confirmed receipt of a request for visit. This document confirms receipt of the order initiating the consult. To find the results of the consultation, please view the patient's reports for the scanned Telemed Consult.
--- NOTE | 2022-04-07 10:55 | CASEMGMT ---
FOUZIA PERALES assessment: Face to Face with patient for initial transition planning/care coordination assessment. FOUZIA PERALES introduced self and role at [facility], pt voices understanding and consents to assessment. Pt is sitting up in bed in no distress on room air. Pt is A/Ox4 and answers all questions appropriately.? Care providers, pharmacy,?and demographics verified/updated. ? Presentation: Pt sent over by PCP for possible CVA, last night around 2200-pt noticed weakness to RLE w/ pain to right shoulder/arm/face Admitting dx: CVA PCP: Kita Specialists: ASHLEY Rendon Preferred Pharmacy: [facility] Insurance: MCR A/B, MMO Prescription Benefit:?[place] MCR D Living Will/HPOA: Pt does not have LW/HPOA and declines AD info. Pt states only has one child and pt states he would be the decision maker. LNOK: Rasta Vinson, son; Nabil Puri, friend Living Arrangements: Pt lives alone in 1 story home with no steps in and states no concerns at home. Pt is independent with ADL's. Transportation: Pt drives self and states no transportation concerns. DME/HHC: Pt has the following DME: rollator, raised toilet seat, WWx2, walk-in shower, and cpap. Pt states uses only cpap at home, the rest was her mother's equipment that she kept. Pt states no need for any further DME. Pt states no hx of HHC or SNF. Pt states no concerns with going home at time of discharge. Pt is retired. Pt does not smoke cigarettes or drink ETOH. Pt voices no further concerns/needs. CM to follow for therapy notes and any further discharge planning/needs. Advised pt to ask for CM if any further questions/concerns/needs arise, voices understanding. Pt Goal: ?Home Plan: [place] FOUZIA PERALES
[2022-04-07 12:10] LABS: Bedside Glucose 195 mg/dL (74-106)
--- NOTE | 2022-04-07 15:38 | CHAPLAIN ---
Type of Pastoral Visit _x__ Initial Visit ___ Follow-up Visit ___ On-call Visit ___ General Patient Visit ___ Spiritual Assessment ___ Family Conference ___ Bereavement ___ Rapid Response ___ Code Blue ___ Other (describe below) Pastoral Care Referral From _x__ Patient ___ Family ___ Nurse ___ Physician ___ Real Estate Broker Associate ___ Senior Engineering Associate ___ Other (describe below) Sacrament/Intervention _x__ Active listening ___ Anointing ___ Latter Day ___ Bereavement ___ Communion _x__ Clau exploration ___ _x__ Life review _x__ Prayer ___ Reconciliation ___ Sacrament of Sick _x__ Supportive presence ___ Wedding ___ Other (describe below) Pastoral Comments patient says this is her first time in hospital since 1995 and so much has changed; pt states she is unsure what happened to the feeling in her leg and that she is waiting for test results; pt will be ready to hear about results and what is going on; pt talks about tragic losses in her family over the years; pt speaks of her clau in God; pt welcomes presence and prayers from this 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
[2022-04-07 17:00] LABS: Bedside Glucose 94 mg/dL (74-106)
[2022-04-07] MEDS: Mirtazapine 15 MG Tablet PO (22:14)
[2022-04-07] MEDS: Atorvastatin Calcium 20 MG Tablet PO (22:14)
[2022-04-07 23:35] LABS: Bedside Glucose 126 mg/dL (74-106)
[2022-04-08] VITALS (8 sets, daily range): BP systolic 127–146; BP diastolic 63–64; PULSE 62–69; RESP 14–18; TEMP 36.7–36.8; O2SAT 93–99; BMI 40.4
[2022-04-08 04:38] LABS: Absolute Lymphocyte Count 1.13 X10^3/uL (0.83-4.51); Absolute Neutrophil Count 1.9 X10^3/uL (2.0-7.7); Basophil# 0.04 X10^3/uL; Eosinophil# 0.42 X10^3/uL; Eosinophils% 10.7 % (0-5); Hematocrit 34.6 % (37-47); Lymphocyte # 1.13 X10^3/ul (0.83-4.51); Lymphocyte % 28.9 % (19-41); Mean Corp Hgb Conc 31.8 g/dL (32-36); Mean Corpuscular Hgb 28.7 pg (27.0-32.0); Mean Corpuscular Volume 90.3 fL (81-99); Mean Platelet Vol. 10.5 fl (6.2-12.0); Monocyte# 0.44 X10^3/uL; Monocyte% 11.3 % (0-10); NRBC Flagged by Analyzer 0 % (0-5); Neutrophil # 1.87 X10^3/uL (2.7-7.7); Neutrophil % 47.8 % (47-70); Platelet Count 269 K/mm3 (150-450); RBC Distribution Width CV 13.3 % (11.6-14.6); RBC Distribution Width SD 44.1 fl (35.1-43.9); Red Blood Count 3.83 M/mm3 (4.2-5.4); White Blood Count 3.9 K/mm3 (4.4-11.0)
[2022-04-08 05:05] LABS: ALB/GLOB Ratio 0.8 RATIO (0.9-2.4); AST(SGOT) 10 U/L (15-37); Alanine Aminotransfer ALT/SGPT 16 U/L (13-56); Albumin, Serum 2.9 g/dL (3.2-5.0); Alkaline Phosphatase 103 U/L (45-117); Anion Gap 5 (5-15); BUN 15 mg/dL (7-18); BUN/Creat Ratio 21.5 RATIO (10-20); Calcium,Total 10.3 mg/dL (8.5-10.1); Chloride 108 mmol/L (98-107); EST Glomerular Filtration Rate 88 mL/min (>60); Est Glom Filt Rate - Afr Amer 107 mL/min (>60); Estimated Creatinine Clearance 47.78 ml/min; Globulin 3.5 g/dL (2.2-4.2); Glucose 118 mg/dL (74-106); Protein, Total 6.4 g/dL (6.4-8.2); Sodium Level 142 mmol/L (136-145)
[2022-04-08] MEDS: Levothyroxine 150 MCG Tablet PO (06:12)
[2022-04-08 07:10] LABS: Bedside Glucose 101 mg/dL (74-106)
--- NOTE | 2022-04-08 08:30 | MRI_ITS ---
HISTORY: r/o neurosarcoidosis. TECHNIQUE: Postcontrast axial and coronal T2-weighted MR images of the brain were obtained after the intravenous administration of contrast. 66 images. COMPARISON: Noncontrast examination 04/06/2022. FINDINGS: BRAIN PARENCHYMA: No enhancing lesion in the brain parenchyma. CSF SPACES: No abnormal nodular extra-axial enhancement or enhancing extra-axial mass. MRI/Brain WITH Contrast IMPRESSION: No evidence for enhancing intracranial mass or lesion. Electronically Signed: Rhina Cristina MD at 9:09 EDT ,
[2022-04-08] MEDS: glipiZIDE XL 5 MG Tablet 10 MG PO (09:39)
[2022-04-08] MEDS: Metoprolol(XL)Succ 100 MG Tablet PO (09:39)
[2022-04-08] MEDS: Citalopram 20 MG Tablet PO (09:39)
[2022-04-08] MEDS: Docusate Sodium 100 MG Capsule PO (09:40)
[2022-04-08] MEDS: Aspirin 81 MG TAB.CHEW PO (09:40)
[2022-04-08] MEDS: Losartan Potassium 50 MG Tablet PO (09:40)
[2022-04-08] MEDS: hydroCHLOROthiazide 25 MG Tablet PO (09:40)
[2022-04-08] MEDS: Enoxaparin 40 MG/0.4 ML Syringe SC (09:40)
--- NOTE | 2022-04-08 10:03 | DCINST_ITS ---
Discharge Instructions Diet Discharge Diet: - (Diabetic diet) Activity Discharge Activity: Return to Normal Activity Follow Up Care Test Results: Test results from this visit will be discussed in further detail at your follow- up appointment, if applicable. Discharge Plan Admission Admit Date/Time: 04/06/22 14:15 Primary Reason for Your Visit: Right sided weakness and dullness Attending Provider: Brittney De Los Santos Primary Care Provider: Vanessa East Consulting Providers: Ivan Zaidi Instructions Patient Instructions: Pulmonary Sarcoidosis, ED Paraesthesias Additional Instructions / Restrictions: 1. Follow up with neurology as an outpatient for EMG and cspine imaging, call upon discharge to schedule this appointment. You can follow with Dr. Jimenes with neurology, contact information provided. 2. Your glucose was lower than necessary while you were admitted in the hospital. Please hold your glipizide and continue your Ozempic. You can discuss this with your primary care physician at follow up. 3. You indicated that you are taking 325mg of aspirin per your primary care ph ysician, please verify this is the correct dose. Continue as prescribed. 4. You are taking multiple supplements, please discuss with your primary care physician to assess for any interactions with your medications. 5. Please discuss your sarcoidosis and elevated calcium with your primary care physician to assess need for further workup or referral. -Please call your primary care provider's office upon discharge to schedule a hospital follow up within 1 week. -For any concerning signs or symptoms please call 911 or proceed to the nearest emergency department Discharge Orders/Prescriptions Prescriptions: Continued metoprolol succinate 100 MG tablet extended release 24 hr 100 mg PO DAILY levothyroxine 150 MCG tablet 150 mcg PO DAILY simvastatin 40 tablet 40 mg PO DAILY Label Comments: pantoprazole 40 mg Tablet,Delayed Release (Dr/Ec) 40 mg PO DAILY albuterol sulfate [ProAir HFA] 90 mcg/actuation Hfa Aerosol Inhaler 1 inh INHALATION Q6H Spiriva Respimat 1.25 mcg/actuation Mist 2 puff INHALATION BID Ozempic 0.25 mg or 0.5 mg(2 mg/1.5 mL) Pen Injector 0.25 mg SUBCUT MEADE Rx Instructions: for 4 doses aspirin 325 mg Tablet 325 mg PO DAILY citalopram 20 mg tablet 20 mg PO DAILY Label Comments: Take 1 tablet by mouth daily as directed echinacea 500 mg Capsule 900 mg PO BID Rx Instructions: administer with meals zinc 25 mg Tablet 25 mg PO BID hydrochlorothiazide 25 mg tablet 25 mg PO DAILY Label Comments: TAKE 1 TABLET BY MOUTH ONCE DAILY psyllium husk [Fiber (psyllium husk)] 0.52 gram Capsule 0.52 g PO BID elderberry fruit 200 mg Capsule 1,250 mg PO DAILY cholecalciferol (vitamin D3) 125 mcg (5,000 unit) Tablet 125 mcg PO BID omgrh-1s-yqn-epa-fish oil 350-400 mg Capsule 1 cap PO BID Cognium Memory 1 tab PO/SL BID docusate sodium [Colace] 100 mg capsule 100 mg PO DAILY irbesartan 150 mg tablet 150 mg PO BID Qty: 30 0RF Label Comments: TAKE 1 TABLET BY MOUTH TWICE DAILY Rx Instructions: Hold for blood pressure <110/60 Held PreserVision AREDS-2 250-90-40-1 mg Capsule 1 tab PO BID Hold Instructions: Resume on 04/15/22. Discuss with your primary care physician prior to resuming supplement Psk-16 Mushroom 1 tab PO/SL DAILY Hold Instructions: Resume on 04/15/22. Discuss with your primary care physician prior to resuming supplement Discontinued oxycodone-acetaminophen [Percocet] 5-325 mg tablet 1 tab PO Q6H PRN (Reason: pain) 3 Days Qty: 12 0RF glipizide 10 mg tablet extended release 24hr 10 mg PO BID Label Comments: TAKE 1 TABLET BY MOUTH TWICE DAILY Referrals / Follow Up: Vanessa East MD [Primary Care Provider] - Within 1 Week Murray Jimenes MD [Non-Staff -Ordering Privileges] - Within 1 Week Disposition Disposition (needs filled in before D/C Order can be placed): Home, Self Care
--- NOTE | 2022-04-08 11:50 | CASEMGMT ---
Per therapy, pt has no need for any further therapy at discharge. Pt has WW at home that she can use. Pt voices no further questions/concerns/needs. Pt aware to call PCP if she feels she needs any further therapy once home. Ivis FRAGOSO CM
--- NOTE | 2022-04-08 17:41 | PCM.DC.SUM ---
Providers Date of Admission: 04/06/22 Date of Discharge: 04/08/22 Primary Care Physician: Dr. Vanessa East MD Reason For Visit: CVA Diagnosis Discharge Diagnosis (1) Stroke: Status: Acute Code(s): I63.9 - Cerebral infarction, unspecified (2) Hypercalcemia: Status: Acute Code(s): E83.52 - Hypercalcemia (3) Diabetes mellitus, type 2: Status: Acute Code(s): E11.9 - Type 2 diabetes mellitus without complications Plan 1. Stroke like symptoms 2. Hypercalcemia 3. DMII 4. COPD: Stable on room air 5. Hypertension: Continue with HCTZ, irbesartan, metoprolol succinate 6. Hypothyroidism: Continue with levothyroxine Medications at Discharge Home Medications levothyroxine 150 mcg tablet 150 mcg PO DAILY THYROID 12/25/17 metoprolol succinate 100 mg tablet,extended release 24 hr 100 mg PO DAILY HEART 12/25/17 simvastatin 40 mg tablet 40 mg PO DAILY CHOLESTEROL 12/25/17 albuterol sulfate 90 mcg/actuation aerosol inhaler (ProAir HFA) 1 inh inhalation Q6H SOB 12/24/21 pantoprazole 40 mg tablet,delayed release 40 mg PO DAILY GERD 12/24/21 semaglutide 0.25 mg or 0.5 mg (2 mg/1.5 mL) subcutaneous pen injector (Ozempic) 0.25 mg subcut MEADE DM 12/24/21 tiotropium bromide 1.25 mcg/actuation mist for inhalation (Spiriva Respimat) 2 puff inhalation BID SOB 12/24/21 Cognium Memory 1 tab PO/SL BID SUPPLEMENT 04/06/22 Psk-16 Mushroom 1 tab PO/SL DAILY SUPPLEMETN 04/06/22 aspirin 325 mg tablet 325 mg PO DAILY HEALTH 04/06/22 cholecalciferol (vitamin D3) 125 mcg (5,000 unit) tablet 125 mcg PO BID SUPPLEMENT 04/06/22 citalopram 20 mg tablet 20 mg PO DAILY MOOD 04/06/22 docusate sodium 100 mg capsule (Colace) 100 mg PO DAILY STOOL SOFTNER 04/06/22 echinacea 500 mg capsule 900 mg PO BID SUPPLEMETN 04/06/22 elderberry fruit 200 mg capsule 1,250 mg PO DAILY SUPPLEMENT 04/06/22 hydrochlorothiazide 25 mg tablet 25 mg PO DAILY HEART 04/06/22 -wlq-xic-other pvvcc1f-xthq oil 350 mg- 400 mg capsule 1 cap PO BID SUPPLEMENT 04/06/22 psyllium husk 0.52 gram capsule (Fiber (psyllium husk)) 0.52 g PO BID SUPPLEMENT 04/06/22 vit C 250 mg-vit E 90 mg-zinc 40 mg-copper 1 gf-umsnbm-zadjqx capsule (PreserVision AREDS-2) 1 tab PO BID EYE HEALTH 04/06/22 zinc 25 mg tablet 25 mg PO BID SUPPLEMENT 04/06/22 irbesartan 150 mg tablet 150 mg PO BID HEART #30 tabs 04/08/22 Hospital Course Summary of Care Provided Minutes Spent on Discharge: 31 Hospital Course: IMANI BLAKE, is a 71 F 1/ PMH DMII, sarcoidosis, obesity, and hypercalcemia who presented 04/08 with right-sided weakness and numbness.? Symptoms began at 10 PM on the .? Patient was noticing that her right leg felt off and that she was stumbling and dragging her right foot.? Symptoms persisted and she is began noticing right arm weakness and numbness as well as right face weakness.? She was concerned and went to her primary care physician's office and was directed here.? Patient had a CAT scan that showed involutional changes.? Given that the onset was at 10 PM last night, patient was out of the window for thrombolytics.? The hospital service was contacted for admission. MRI/MRA unremarkable. Neuro consulted and recommended MRI with contrast to evaluate for neuro sarcoid given history and outpatient neuro follow up. MRI w/ contrast unrevealing. Echo with Gd 1 diastolic dysfunction and EF 60%. Symptoms improved and pt d/c'd with instructions for outpt follow up. Physical Exam Const alert and oriented x3 HEENT normocephalic Eyes EOMs intact bilaterally Neck supple Resp normal respiratory effort and clear to auscultation bilaterally Cardio regular rate and regular rhythm GI soft to palpation, non-tender and non-distended Extremity full ROM Extremity Narrative: 5/5 BLE strength, 4+/5 RUE, 5/5 LUE Skin no rashes or lesions noted Neuro oriented x3 and moves all extremities Neuro Narrative: RUE minimally weaker, other gallegos no focal deficits appreciated Psych affect normal Weight / BMI Weight Weight: 110.3 kg Body Mass Index (BMI) 40.4 ABG / Lab / Microbiology Data Result Diagrams: 04/08/22 04:25 04/08/22 04:25 Laboratory: Laboratory Results - last 24 hr 04/07/22 22:19: POC Glucose 126 H 04/08/22 04:25: WBC 3.9 L, RBC 3.83 L, Hgb 11.0 L, Hct 34.6 L, MCV 90.3, MCH 28.7, MCHC 31.8 L D, RDW Std Deviation 44.1 H, RDW Coeff of Valery 13.3, Plt Count 269, MPV 10.5, Immature Gran % (Auto) 0.300, Neut % (Auto) 47.8, Lymph % (Auto) 28.9, [place] % (Auto) 11.3 H, Eos % (Auto) 10.7 H, Baso % (Auto) 1.0, Absolute Neuts (auto) 1.9 L, Absolute Lymphs (auto) 1.13, Nucleated RBC % 0 04/08/22 04:25: Sodium 142, Potassium 4.0, Chloride 108 H, Carbon Dioxide 29.0, Anion Gap 5, BUN 15, Creatinine 0.70, Estim Creat Clear Calc 47.78, Est GFR (MDRD) Af Amer 107, Est GFR (MDRD) Non-Af 88, BUN/Creatinine Ratio 21.5 H, Glucose 118 H, Calcium 10.3 H, Total Bilirubin 0.30, AST 10 L, ALT 16, Alkaline Phosphatase 103, Total Protein 6.4, Albumin 2.9 L, Globulin 3.5, Albumin/Globulin Ratio 0.8 L 04/08/22 06:12: POC Glucose 101 Radiography Diagnostic Testing: Radiology Impression Brain MRI 04/08/22 08:30 IMPRESSION: No evidence for enhancing intracranial mass or lesion. Electronically Signed: Rhina Cristina MD at 9:09 EDT , D/C Instructions Discharge Diet: - (Diabetic diet) Meaningful Use Info Meaningful Use Diagnoses (Choose all that apply): None applicable Discharge Plan Admission Admit Date/Time: 04/06/22 14:15 Primary Reason for Your Visit: Right sided weakness and dullness Attending Provider: Brittney De Los Santos Primary Care Provider: Vanessa East Consulting Providers: Ivan Zaidi Instructions Patient Instructions: Pulmonary Sarcoidosis, ED Paraesthesias Additional Instructions / Restrictions: 1. Follow up with neurology as an outpatient for EMG and cspine imaging, call upon discharge to schedule this appointment. You can follow with Dr. Jimenes with neurology, contact information provided. 2. Your glucose was lower than necessary while you were admitted in the hospital. Please hold your glipizide and continue your Ozempic. You can discuss this with your primary care physician at follow up. 3. You indicated that you are taking 325mg of aspirin per your primary care physician, please verify this is the correct dose. Continue as prescribed. 4. You are taking multiple supplements, please discuss with your primary care physician to assess for any interactions with your medications. 5. Please discuss your sarcoidosis and elevated calcium with your primary care physician to assess need for further workup or referral. -Please call your primary care provider's office upon discharge to schedule a hospital follow up within 1 week. -For any concerning signs or symptoms please call 911 or proceed to the nearest emergency department Discharge Orders/Prescriptions Prescriptions: Continued metoprolol succinate 100 MG tablet extended release 24 hr 100 mg PO DAILY levothyroxine 150 MCG tablet 150 mcg PO DAILY simvastatin 40 tablet 40 mg PO DAILY Label Comments: pantoprazole 40 mg Tablet,Delayed Release (Dr/Ec) 40 mg PO DAILY albuterol sulfate [ProAir HFA] 90 mcg/actuation Hfa Aerosol Inhaler 1 inh INHALATION Q6H Spiriva Respimat 1.25 mcg/actuation Mist 2 puff INHALATION BID Ozempic 0.25 mg or 0.5 mg(2 mg/1.5 mL) Pen Injector 0.25 mg SUBCUT MEADE Rx Instructions: for 4 doses aspirin 325 mg Tablet 325 mg PO DAILY citalopram 20 mg tablet 20 mg PO DAILY Label Comments: Take 1 tablet by mouth daily as directed echinacea 500 mg Capsule 900 mg PO BID Rx Instructions: administer with meals zinc 25 mg Tablet 25 mg PO BID hydrochlorothiazide 25 mg tablet 25 mg PO DAILY Label Comments: TAKE 1 TABLET BY MOUTH ONCE DAILY psyllium husk [Fiber (psyllium husk)] 0.52 gram Capsule 0.52 g PO BID elderberry fruit 200 mg Capsule 1,250 mg PO DAILY cholecalciferol (vitamin D3) 125 mcg (5,000 unit) Tablet 125 mcg PO BID lgzpe-1l-tfo-epa-fish oil 350-400 mg Capsule 1 cap PO BID Cognium Memory 1 tab PO/SL BID docusate sodium [Colace] 100 mg capsule 100 mg PO DAILY irbesartan 150 mg tablet 150 mg PO BID Qty: 30 0RF Label Comments: TAKE 1 TABLET BY MOUTH TWICE DAILY Rx Instructions: Hold for blood pressure <110/60 Held PreserVision AREDS-2 250-90-40-1 mg Capsule 1 tab PO BID Hold Instructions: Resume on 04/15/22. Discuss with your primary care physician prior to resuming supplement Psk-16 Mushroom 1 tab PO/SL DAILY Hold Instructions: Resume on 04/15/22. Discuss with your primary care physician prior to resuming supplement Discontinued oxycodone-acetaminophen [Percocet] 5-325 mg tablet 1 tab PO Q6H PRN (Reason: pain) 3 Days Qty: 12 0RF glipizide 10 mg tablet extended release 24hr 10 mg PO BID Label Comments: TAKE 1 TABLET BY MOUTH TWICE DAILY Referrals / Follow Up: Vanessa East MD [Primary Care Provider] - Within 1 Week Murray Jimenes MD [Non-Staff -Ordering Privileges] - Within 1 Week Disposition Disposition (needs filled in before D/C Order can be placed): Home, Self Care Charges/Coding Visit Charges Inpatient E&M: 85132 Subs Hosp L2
== END 2022-04-08 12:37 | disposition home or self-care (01) | DRG 948 ==
LOC: ED 14:09 → PCU 14:49
PROVIDERS: Emergency Provider Emergency Medicine; PCP Internal Medicine; Visit Provider Internal Medicine
DX: R53.1 Weakness (principal); D86.9 Sarcoidosis, unspecified; J44.9 Chronic obstructive pulmonary disease, unspecified; E03.9 Hypothyroidism, unspecified; E83.52 Hypercalcemia; I10 Essential (primary) hypertension; E78.00 Pure hypercholesterolemia, unspecified; G47.33 Obstructive sleep apnea (adult) (pediatric); Z79.84 Long term (current) use of oral hypoglycemic drugs; Z87.891 Personal history of nicotine dependence; E66.9 Obesity, unspecified; Z79.899 Other long term (current) drug therapy; Z79.890 Hormone replacement therapy; Z68.38 Body mass index [BMI] 38.0-38.9, adult; R20.0 Anesthesia of skin; R29.810 Facial weakness; Z79.82 Long term (current) use of aspirin; Z86.16 Personal history of COVID-19
CPT/HCPCS: 36415; 70450; 70544; 70547; 70551; 70552; 71045; 80048; 80053; 80061; 82306; 82962; 83036; 83970; 84484; 85025; 85610; 85730; 93005; 93306; 94640; 94762; 97162; 97166; 97530; 97535; 99285; A9575; J7040; Q9957; A4216; C8929

== ENCOUNTER 2022-07-26 11:50 | Emergency (ER) | payer MEDICARE, OTHER, SELFPAY ==
[2022-07-26 11:53] VITALS: BP 164/79; PULSE 65; RESP 14; TEMP 36.6; O2SAT 100; BMI 37.1
--- NOTE | 2022-07-26 12:45 | RAD_ITS ---
EXAM: XR RIGHT KNEE COMPLETE, 4 OR MORE VIEWS CLINICAL INDICATION: Injury/Pain TECHNIQUE: Four or more views of the right knee. This report was created using [employer] report generation technology. COMPARISON: None. FINDINGS: BONES/JOINTS: Unremarkable. No acute fracture. No subluxation. Normal alignment. Preservation of the joint space. No sclerotic or destructive changes observed. SOFT TISSUES: Unremarkable. No soft tissue swelling or gas. No radiopaque foreign body. RAD/Knee 4 or More Views IMPRESSION: No acute fracture or dislocation of the right knee. Electronically Signed: Salvador Rodriguez MD at 12:56 EST ,
--- NOTE | 2022-07-26 13:31 | EDS_ITS ---
HPI History of Present Illness HPI Narrative: Patient presents with right knee pain that began after a fall yesterday. Patient states the pain is over the lateral aspect of her right knee. Patient states she felt and heard a pop when she fell. Patient states her pain is worse with lifting her leg and turning in certain ways. Patient states it is better with rest. Patient denies any paresthesias or weakness. Patient denies any head injury or loss of consciousness. Patient denies any other injuries. Chief Complaint: Lower Extremity Injury Informant: patient Occured/Mechanism Mechanism/Context: Yes fall Onset/Context/Timing Onset: Yesterday Context: Sudden Onset Timing: Continuous Quality of Pain: Aching Location: Right knee Worsened by: Lifting, turning Relieved by: Rest Associated Symptoms Associated Symptoms: Negative for Parasthesia, Weakness or Loss of Funtion [facility] Medical History Acute sinusitis Adrenal adenoma Allergic rhinitis Anxiety Asthma Back pain Bronchitis COPD (chronic obstructive pulmonary disease) Cough Depression Diabetes mellitus, type 2 Eczema Fatigue Hypercalcemia Hypercholesteremia Hypertension Hypoglycemia Hypothyroidism (acquired) Meralgia paresthetica Obesity Obesity Osteopenia Postmenopausal Primary hyperparathyroidism Right hip pain Sarcoidosis Sciatica Sleep apnea in adult Sleep disorder Vitamin D deficiency Wheezing Home Medications levothyroxine 150 mcg tablet 150 mcg PO DAILY THYROID 12/25/17 [History Last Taken 04/06/22] metoprolol succinate 100 mg tablet,extended release 24 hr 100 mg PO DAILY HEART 12/25/17 [History Last Taken 04/06/22] simvastatin 40 mg tablet 40 mg PO DAILY CHOLESTEROL 12/25/17 [History Last Taken 04/05/22] albuterol sulfate 90 mcg/actuation aerosol inhaler (ProAir HFA) 1 inh inhalation Q6H SOB 12/24/21 [History Last Taken 04/05/22] pantoprazole 40 mg tablet,delayed release 40 mg PO DAILY GERD 12/24/21 [History Last Taken 04/06/22] semaglutide 0.25 mg or 0.5 mg (2 mg/1.5 mL) subcutaneous pen injector (Ozempic) 0.25 mg subcut MEADE DM 12/24/21 [History Last Taken 04/05/22] tiotropium bromide 1.25 mcg/actuation mist for inhalation (Spiriva Respimat) 2 puff inhalation BID SOB 12/24/21 [History Last Taken 04/06/22] Cognium Memory 1 tab PO/SL BID SUPPLEMENT 04/06/22 [History Last Taken 04/06/22] Psk-16 Mushroom 1 tab PO/SL DAILY SUPPLEMETN 04/06/22 [History Last Taken 04/06/22] aspirin 325 mg tablet 325 mg PO DAILY HEALTH 04/06/22 [History Last Taken 04/06/22] cholecalciferol (vitamin D3) 125 mcg (5,000 unit) tablet 125 mcg PO BID SUPPLEMENT 04/06/22 [History Last Taken 04/06/22] citalopram 20 mg tablet 20 mg PO DAILY MOOD 04/06/22 [History Last Taken 04/06/22] docusate sodium 100 mg capsule (Colace) 100 mg PO DAILY STOOL SOFTNER 04/06/22 [History Last Taken 04/06/22] echinacea 500 mg capsule 900 mg PO BID SUPPLEMETN 04/06/22 [History Last Taken 04/06/22] elderberry fruit 200 mg capsule 1,250 mg PO DAILY SUPPLEMENT 04/06/22 [History Last Taken 04/06/22] hydrochlorothiazide 25 mg tablet 25 mg PO DAILY HEART 04/06/22 [History Last Taken 04/06/22] -hlg-amd-other lxqco0o-qzok oil 350 mg- 400 mg capsule 1 cap PO BID SUPPLEMENT 04/06/22 [History Last Taken 04/06/22] psyllium husk 0.52 gram capsule (Fiber (psyllium husk)) 0.52 g PO BID SUPPLEMENT 04/06/22 [History Last Taken 04/06/22] vit C 250 mg-vit E 90 mg-zinc 40 mg-copper 1 kb-pyvpsd-iwcidy capsule (PreserVision AREDS-2) 1 tab PO BID EYE HEALTH 04/06/22 [History Last Taken 04/06/22] zinc 25 mg tablet 25 mg PO BID SUPPLEMENT 04/06/22 [History Last Taken 04/06/22] irbesartan 150 mg tablet 150 mg PO BID HEART #30 tabs 04/08/22 [Rx Last Taken 04/06/22] famotidine 20 mg tablet 20 mg PO DAILY 04/22/22 [History Last Taken Unknown] glipizide 10 mg tablet, extended release 24 hr ea PO 04/22/22 [History Last Taken Unknown] loratadine 5 mg-pseudoephedrine ER 120 mg tablet,extended release,12hr (Claritin-D 12 Hour) 1 tab PO Q12H 04/22/22 [History Last Taken Unknown] prednisone 20 mg tablet tablet PO 04/22/22 [History Last Taken Unknown] tiotropium bromide 18 mcg capsule with inhalation device (Spiriva with HandiHaler) 1 cap inhalation 04/22/22 [History Last Taken Unknown] vitamins A,C,L-ruqz-asltxq 4,296 mcg-226 mg-90 mg capsule (PreserVision AREDS) 1 cap PO 04/22/22 [History Last Taken Unknown] ibandronate 150 mg tablet 150 mg PO QMONTH #3 tabs 05/07/22 [Rx Last Taken Unknown] Allergy/AdvReac Type Severity Reaction Status Date / Time metformin Allergy Severe Hives Verified 07/16/22 13:34 Penicillins Allergy Severe Anaphylaxis Verified 07/16/22 13:34 amoxicillin Allergy Anaphylaxis Verified 07/16/22 13:34 erythromycin base Allergy Unknown Verified 07/16/22 13:34 Sulfa (Sulfonamide Allergy Unknown Verified 07/16/22 13:34 Antibiotics) Family History Mother Diabetes Hypertension Father Hypertension Other Anesthesia complication Anxiety Arthritis Depression High cholesterol Osteoporosis Thyroid disorder Surgical History History of laparoscopic cholecystectomy History of lung surgery Social History Smoking Status: Former smoker second hand exposure: Yes alcohol intake: never substance use type: does not use what type of physical activity do you participate in: walking and other details: WATER AEROBICS ROS ROS ED Constitutional Constitutional ED: Denies chills or fever(s) Eyes Eyes: Denies blurry vision or change in vision ENT ENT ED: Denies rhinorrhea or sore throat Cardiovascular Cardiovascular: Denies chest pain or palpitations Respiratory/Chest Respiratory/Chest: Denies cough or dyspnea Gastrointestinal Gastrointestinal: Denies nausea or vomiting Genitourinary Genitourinary ED: Denies dysuria or hematuria Musculoskeletal Musculoskeletal: Denies back pain or neck pain Integumentary Denies abscess or rash Neurologic Neurologic: Denies headache(s) or weakness Allergic/Immunologic Allergic/Immunologic ED: Denies mouth swelling or urticaria EXAM Physical Exam Const Vital Signs: 07/26/22 11:53 Temperature 98 F Temperature Source Temporal Pulse Rate 65 Respiratory Rate 14 Blood Pressure 164/79 H Blood Pressure Mean 107 Pulse Ox 100 Oxygen Delivery Method Room Air Positive well nourished and well developed General Appearance ED: well developed and NAD HEENT Reports moist mucous membranes normocephalic and atraumatic Neck full ROM Extremity Extremity Narrative: There is tenderness of the lateral aspect of the right knee. There is no effusion. There is no bony crepitance or step-off. Range of motion was slightly limited in complete flexion secondary to pain. Strength is 5/5 bilaterally in lower extremities. There are no sensory deficits noted. Pedal pulses are equal bilaterally. Neuro oriented x3, CN's II-XII intact bilaterally, moves all extremities and no sensory deficits noted Sensorium / Orientation: alert Motor Exam: strength 5/5 throughout Psych mental status grossly normal MDM MDM MDM Narrative Medical decision making narrative: Differential diagnosis includes fracture, effusion, soft tissue injury, meniscus injury, and ligamentous injury. X-rays of the right knee will be obtained to assess for fracture, effusion, and dislocation. Radiography Diagnostic Testing: Clinical Impression(s) from Imaging Studies Knee X-Ray 07/26/22 12:45 IMPRESSION: No acute fracture or dislocation of the right knee. Electronically Signed: Salvador Rodriguez MD at 12:56 EST Reading Location ID and State: [address] [place] [address] , Service support , X-rays of the right knee were obtained. There are 4 views. On my independent interpretation, there is no acute fracture or dislocation noted. There is no effusion noted. There are some mild degenerative changes noted. Radiologist also interpreted the x-rays and agrees. Treatment and Re-Evaluation Narrative: Patient feels better on reevaluation. Patient was instructed to ice and elevate the right knee. Patient was instructed continue Tylenol and ibuprofen as needed for pain. Patient was instructed to follow-up with her primary care physician in 5 to 7 days for reevaluation. Patient understood and was agreeable with the plan. All questions were answered. Discharge Plan Triage Chief Complaint: Lower Extremity Injury ED Provider: Ivan Hutchinson Dx/Rx/DC Orders Clinical Impression: Right knee sprain, Obesity, Diabetes mellitus, type 2 Instructions: ED Knee Sprain Prescriptions: No Action glipizide 10 mg tablet extended release 24hr PO Label Comments: TAKE 1 TABLET BY MOUTH TWICE DAILY famotidine 20 mg tablet 20 mg PO DAILY prednisone 20 mg tablet PO Claritin-D 12 Hour 5-120 mg tablet extended release 12 hr 1 tab PO Q12H PreserVision AREDS [id number],320-226-200 rzmp-eh-nzkd capsule 1 cap PO Label Comments: 1 capsule by mouth twice a day Spiriva with HandiHaler 18 mcg capsule, w/inhalation device 1 cap inhalation Label Comments: 1 puff as directed as directed ibandronate 150 mg tablet 150 mg PO QMONTH Qty: 3 3RF metoprolol succinate 100 MG tablet extended release 24 hr 100 mg PO DAILY levothyroxine 150 MCG tablet 150 mcg PO DAILY simvastatin 40 tablet 40 mg PO DAILY Label Comments: pantoprazole 40 mg Tablet,Delayed Release (Dr/Ec) 40 mg PO DAILY albuterol sulfate [ProAir HFA] 90 mcg/actuation Hfa Aerosol Inhaler 1 inh INHALATION Q6H Spiriva Respimat 1.25 mcg/actuation Mist 2 puff INHALATION BID Ozempic 0.25 mg or 0.5 mg(2 mg/1.5 mL) Pen Injector 0.25 mg SUBCUT MEADE Rx Instructions: for 4 doses aspirin 325 mg Tablet 325 mg PO DAILY citalopram 20 mg tablet 20 mg PO DAILY Label Comments: Take 1 tablet by mouth daily as directed echinacea 500 mg Capsule 900 mg PO BID Rx Instructions: administer with meals zinc 25 mg Tablet 25 mg PO BID hydrochlorothiazide 25 mg tablet 25 mg PO DAILY Label Comments: TAKE 1 TABLET BY MOUTH ONCE DAILY psyllium husk [Fiber (psyllium husk)] 0.52 gram Capsule 0.52 g PO BID elderberry fruit 200 mg Capsule 1,250 mg PO DAILY cholecalciferol (vitamin D3) 125 mcg (5,000 unit) Tablet 125 mcg PO BID qxoqj-7x-cqq-epa-fish oil 350-400 mg Capsule 1 cap PO BID PreserVision AREDS-2 250-90-40-1 mg Capsule 1 tab PO BID Hold Instructions: Resume on 04/15/22. Discuss with your primary care physician prior to resuming supplement Cognium Memory 1 tab PO/SL BID Psk-16 Mushroom 1 tab PO/SL DAILY Hold Instructions: Resume on 04/15/22. Discuss with your primary care physician prior to resuming supplement docusate sodium [Colace] 100 mg capsule 100 mg PO DAILY irbesartan 150 mg tablet 150 mg PO BID Qty: 30 0RF Label Comments: TAKE 1 TABLET BY MOUTH TWICE DAILY Rx Instructions: Hold for blood pressure <110/60 Primary Care Provider: Emmy Jara Referrals: Emmy Jara, [employer] [Primary Care Provider] - 5-7 Days Disposition Disposition: Home, Self Care
== END 2022-07-26 13:48 | disposition home or self-care (01) ==
PROVIDERS: Emergency Provider Emergency Medicine; PCP Nurse Practitioner Family; Visit Provider Emergency Medicine
DX: S83.91XA Sprain of unspecified site of right knee, initial encounter (principal); E11.9 Type 2 diabetes mellitus without complications; E66.9 Obesity, unspecified; W19.XXXA Unspecified fall, initial encounter; G47.30 Sleep apnea, unspecified; Z87.891 Personal history of nicotine dependence
CPT/HCPCS: 73564; 99282

== ENCOUNTER → 2022-08-13 | Outpatient (CLI) | payer MEDICARE, OTHER, SELFPAY ==
--- NOTE | 2022-08-13 13:29 | PFTCOMP ---
COMPLETE PULMONARY FUNCTION TEST INTERPRETATION Brief HPI: Patient is a 71-year-old female, currently under the care of Dr. Lion, who presents to [facility] for complete pulmonary function tests secondary to diagnosis of COPD. Respiratory therapist reports good effort and reproducible results. Interpretation: Forced expiration spirometry shows no large airways obstructive ventilatory defect with an FEV1 of 84% predicted. There is no significant bronchodilator response by strict ATS criteria. Spirograms are of good quality and plateau slowly, indicating slowly emptying areas of the lungs. The respiratory flow volume loop shows decreased expiratory flow rates at high lung volumes consistent with small airways obstruction. Lung volumes by body plethysmography show a normal total lung capacity at 4.67 L, 89% predicted. All other lung volumes are within normal limits. Diffusion capacity by carbon monoxide is normal at 82% predicted. The airway resistance is normal. Compared to previous pulmonary function tests from 05/05/2018, there has been no significant change. Impression: Grossly normal pulmonary function test with some stigmata of small airways disease
== END | disposition home or self-care (01) ==
LOC: PSN 10:26
PROVIDERS: PCP Nurse Practitioner Family; Referring Provider Internal Medicine Critical Care Medicine; Visit Provider Internal Medicine Critical Care Medicine
DX: J44.9 Chronic obstructive pulmonary disease, unspecified (principal)
CPT/HCPCS: 94060; 94726; 94729

== ENCOUNTER → 2022-08-14 | Outpatient (CLI) | payer MEDICARE, OTHER, SELFPAY ==
[2022-08-14 12:52] VITALS: PULSE 72; PULSE 75; PULSE 76; PULSE 81; PULSE 84; PULSE 86; PULSE 87; PULSE 88; O2SAT 95; O2SAT 96; O2SAT 97; O2SAT 98
--- NOTE | 2022-08-15 05:26 | PCM.PSN.6M ---
PSN 6 Minute Walk Test 6 Minute Walk Test 6 Minute Walk Test: 6 Minute Walk Test PSN:6-Minute Walk Test Start: 08/14/22 12:51 Freq: Status: Active Protocol: RESP.6MINW Document 08/14/22 12:52 [facility] (Rec: 08/14/22 12:56 [facility] [id number]) 6 Minute Walk Test Date Performed 08/14/22 Time Performed 12:30 Height 5 ft 6 in Weight: 103.873 kg Weight in Pounds 229.[address]: Jordy Lion Assistive device used: None Pre-test Oxygen Delivery Method Room Air Pulse Ox (%) 98 Pulse Rate (60-100 beats/min) 72 Dyspnea Subha Scale (0-10) 0 1st minute Oxygen Delivery Method Room Air Pulse Ox (%) 97 Pulse Rate (60-100 beats/min) 76 Dyspnea Subha Scale (0-10) 0 Number of Rests Taken 0 2nd minute Oxygen Delivery Method Room Air Pulse Ox (%) 96 Pulse Rate (60-100 beats/min) 81 Dyspnea Subha Scale (0-10) 0 Number of Rests Taken 0 3rd minute Oxygen Delivery Method Room Air Pulse Ox (%) 95 Pulse Rate (60-100 beats/min) 84 Dyspnea Subha Scale (0-10) 0 Number of Rests Taken 0 4th minute Oxygen Delivery Method Room Air Pulse Ox (%) 97 Pulse Rate (60-100 beats/min) 86 Dyspnea Subha Scale (0-10) 0 Number of Rests Taken 0 5th minute Oxygen Delivery Method Room Air Pulse Ox (%) 96 Pulse Rate (60-100 beats/min) 87 Dyspnea Subha Scale (0-10) 0 Number of Rests Taken 0 6th minute Oxygen Delivery Method Room Air Pulse Ox (%) 96 Pulse Rate (60-100 beats/min) 88 Dyspnea Subha Scale (0-10) 0 Number of Rests Taken 0 Post-test Oxygen Delivery Method Room Air Pulse Ox (%) 97 Pulse Rate (60-100 beats/min) 75 Dyspnea Subha Scale (0-10) 0 Full Laps Walked 15 Partial Lap, Number of Tiles Walked 43 Total Distance Walked (ft) 928 Interpretation Interpretation: The patient was able to ambulate 928 feet over the course of 6 minutes on room air with no assistive devices or breaks. The patient experienced no significant desaturation or tachycardia. These findings are consistent with a musculoskeletal limitation exercise tolerance. Recommendations Recommendations: No supplemental oxygen is indicated at this time.
== END | disposition home or self-care (01) ==
LOC: PSN 12:20
PROVIDERS: PCP Nurse Practitioner Family; Visit Provider Internal Medicine Critical Care Medicine
DX: J44.9 Chronic obstructive pulmonary disease, unspecified (principal)
CPT/HCPCS: 94618

== ENCOUNTER → 2022-09-25 | Outpatient (CLI) | payer MEDICARE, OTHER, SELFPAY ==
--- NOTE | 2022-09-25 08:53 | CDU_ITS ---
Reason For Study: TIA 03/2022, CREBROVASCULAR DISEASE Rt. Velocities/BP Lt. Velocities/BP Prox CCA 78.0/4.2 cm/sec. Prox CCA 105.1/15.5 cm/sec. Mid CCA 49.7/8.1 cm/sec. Mid CCA 61.3/12.2 cm/sec. Dist CCA 49.7/10.0 cm/sec. Dist CCA 93.2/17.1 cm/sec. Prox ICA 55.4/11.0 cm/sec. Prox ICA 125.8/14.4 cm/sec. Mid ICA 68.3/14.2 cm/sec. Mid ICA 62.9/11.8 cm/sec. Dist ICA 112.5/30.3 cm/sec. Dist ICA 120.4/27.2 cm/sec. Rt. ICA/CCA = 112.5/49.7=2.3. Lt. ICA/CCA = 125.8/102.7=1.2. Prox ECA 79.9/7.2 cm/sec. Prox ECA 166.0/16.7 cm/sec. Rt. Vert. 50.1/12.7 cm/sec. Lt. Vert. 49.7/13.4 cm/sec. Right Extracranial There is homogeneous, smooth atherosclerotic plaque noted in the right common carotid artery. There is homogeneous, smooth atherosclerotic plaque noted in the right internal carotid artery. The tortuous nature of the right internal carotid artery may result in flow velocities overestimating the degree of stenosis. There is homogeneous, smooth atherosclerotic plaque noted in the right external carotid artery. Antegrade flow is noted in the right vertebral artery. Left Extracranial There is intimal thickening but no significant atherosclerotic plaque noted in the left common carotid artery. There is heterogeneous, irregular atherosclerotic plaque noted in the left internal carotid artery. There is intimal thickening but no significant atherosclerotic plaque noted in the left external carotid artery. Antegrade flow is noted in the left vertebral artery. There is heterogeneous, irregular atherosclerotic plaque noted in the left bulb. Procedure Carotid Duplex [id number]. This is a Carotid Duplex examination using B-mode, color flow and specral Doppler. The study was technically difficult. Exam performed in department. VL/Carotid Duplex Ultrasound Interpretation Summary Neck of the proximal right internal carotid artery with less than 50% stenosis. Tortuous right internal carotid artery. Less than 50% stenosis right external carotid artery Irregular plaque at the proximal left internal carotid artery with [address]% [address] enosis. Less than 50% stenosis left external carotid artery Patent and antegrade vertebral arteries bilaterally Ordering Physician: Murray Jmienes Referring Physician: Emmy Jara Performed By: Carin Miller RDCS, RVT
== END | disposition home or self-care (01) ==
LOC: CVS 08:53
PROVIDERS: PCP Nurse Practitioner Family; Visit Provider Psychiatry & Neurology Neurology
DX: G45.9 Transient cerebral ischemic attack, unspecified (principal); I67.9 Cerebrovascular disease, unspecified; E78.5 Hyperlipidemia, unspecified; R20.0 Anesthesia of skin
CPT/HCPCS: 93880

== ENCOUNTER → 2023-01-18 | Outpatient (CLI) | payer MEDICARE, OTHER, SELFPAY ==
[2023-01-18 10:56] LABS: Hematocrit 38.9 % (37-47); Hemoglobin 12.6 g/dL (12.0-15.0); Mean Corp Hgb Conc 32.4 g/dL (32-36); Mean Corpuscular Hgb 28.8 pg (27.0-32.0); Mean Platelet Vol. 11.1 fl (6.2-12.0); Platelet Count 285 K/mm3 (150-450); RBC Distribution Width CV 13.2 % (11.6-14.6); RBC Distribution Width SD 43.1 fl (35.1-43.9); Red Blood Count 4.37 M/mm3 (4.2-5.4); White Blood Count 4.4 K/mm3 (4.4-11.0)
[2023-01-18 11:33] LABS: Vitamin B12 337 pg/mL (211-911)
[2023-01-18 11:55] LABS: ALB/GLOB Ratio 0.9 RATIO (0.9-2.4); AST(SGOT) 12 U/L (15-37); Alanine Aminotransfer ALT/SGPT 16 U/L (13-56); Albumin, Serum 3.5 g/dL (3.2-5.0); Alkaline Phosphatase 112 U/L (45-117); Anion Gap 3 (5-15); BUN 15 mg/dL (7-18); Calcium,Total 9.9 mg/dL (8.5-10.1); Chloride 106 mmol/L (98-107); Cholesterol 161 mg/dL (200); Creatinine, Serum 0.65 mg/dL (0.55-1.02); EST Glomerular Filtration Rate 96 mL/min (>60); Est Glom Filt Rate - Afr Amer 116 mL/min (>60); Globulin 3.8 g/dL (2.2-4.2); Glucose 105 mg/dL (74-106); High Density Lipoprotein 43 mg/dL; Magnesium 2.3 mg/dL (1.6-2.6); Potassium 4.1 mmol/L (3.5-5.1); Protein, Total 7.3 g/dL (6.4-8.2); Sodium Level 138 mmol/L (136-145); T4 Free Direct 1.08 ng/dL (0.76-1.46); Thyroid Stim Hormone (TSH) 1.37 uIU/mL (0.358-3.74); Triglycerides 204 mg/dL; Very Low Density Lipoprotein 41 mg/dL (5-40)
[2023-01-20 17:13] LABS: Free Kappa Light Chains 20.6 mg/L (3.3-19.4); Free Lambda Light Chains 14.6 mg/L (5.7-26.3); Vitamin B1, Thiamine 122.8 nmol/L (66.5-200.0)
== END | disposition home or self-care (01) ==
PROVIDERS: PCP Nurse Practitioner Family; Referring Provider Psychiatry & Neurology Neurology; Visit Provider Psychiatry & Neurology Neurology
DX: J45.909 Unspecified asthma, uncomplicated (principal); G62.9 Polyneuropathy, unspecified; I10 Essential (primary) hypertension; E78.5 Hyperlipidemia, unspecified
CPT/HCPCS: 36415; 80053; 80061; 82607; 82746; 83735; 83883; 84425; 84439; 84443; 85027

== ENCOUNTER → 2023-04-23 | Outpatient (CLI) | payer MEDICARE, OTHER, SELFPAY ==
--- NOTE | 2023-04-23 14:58 | BI_ITS ---
MAMMOGRAPHY - BILATERAL SCREENING REASON FOR EXAM: Female, 72 years old. Routine annual screening examination. PERTINENT HISTORY: Non-contributory. TECHNIQUE: Digital bilateral breast reena (3D mammographic acquisition) in the CC and MLO projections. 2-D mediolateral oblique (MLO) and craniocaudad (CC) views of both breasts were obtained. CAD: Full Field Digital Mammography with Computer Added Detection was performed. COMPARISON: Comparison is made with prior study April 18, 2021 and November 21, 2019. FINDINGS: Breast Composition: There are scattered areas of fibroglandular density. There are no dominant masses or suspicious calcifications. Stable small fat-containing bilateral axillary lymph nodes. Stable 5 mm well-defined nodule in the anterior mid slightly lateral aspect of the right breast suggestive of a small lymph node. No other significant abnormalities are identified. There has been no significant change since the prior study. BI/SCRN MAMM (CAD)W/REENA BILAT IMPRESSION: Stable bilateral screening mammogram. Yearly follow-up mammogram recommended. (A) ASSESSMENT CATEGORY: BIRADS Category 2: Benign. A letter regarding these results will be sent to the patient by the facility within 30 days. Approximately 10% of breast cancers are not detected by mammography. A normal mammogram should not delay biopsy of a clinically suspicious abnormality. [id number] Electronically Signed: Leobardo Mckenzie MD at 8:31 EDT ,
== END | disposition home or self-care (01) ==
LOC: OPBI 14:56
PROVIDERS: PCP Nurse Practitioner Family; Referring Provider Nurse Practitioner Family; Visit Provider Nurse Practitioner Family
DX: Z12.31 Encounter for screening mammogram for malignant neoplasm of breast (principal)
CPT/HCPCS: 77063; 77067

== ENCOUNTER → 2023-05-31 | Outpatient (CLI) | payer MEDICARE, OTHER, SELFPAY ==
--- NOTE | 2023-05-31 09:58 | CDU_ITS ---
Reason For Study: Follow-up carotid stenosis Rt. Velocities/BP Lt. Velocities/BP Prox CCA 75/7 cm/sec. Prox CCA 80.6/10.7 cm/sec. Mid CCA 61.7/8.8 cm/sec. Mid CCA 63.6/8.8 cm/sec. Dist CCA 43.7/7.8 cm/sec. Dist CCA 88.8/16.3 cm/sec. Prox ICA 54.2/11.3 cm/sec. Prox ICA 101/20.6 cm/sec. Mid ICA 70.7/14.6 cm/sec. Mid ICA 84.4/16 cm/sec. Dist ICA 85.6/17.5 cm/sec. Dist ICA 95.5/18.8 cm/sec. Rt. ICA/CCA = 1.39. Lt. ICA/CCA = 1.25. Prox ECA 108/4.7 cm/sec. Prox ECA 99.8/10.2 cm/sec. Rt. Vert. 38.1/6.9 cm/sec. Lt. Vert. 40.9/6 cm/sec. Right Extracranial There is homogeneous, smooth atherosclerotic plaque noted in the right common carotid artery. There is intimal thickening but no significant atherosclerotic plaque noted in the right internal carotid artery. There is intimal thickening but no significant atherosclerotic plaque noted in the right external carotid artery. Antegrade flow is noted in the right vertebral artery. Left Extracranial There is heterogeneous, irregular atherosclerotic plaque noted in the left common carotid artery. There is intimal thickening but no significant atherosclerotic plaque noted in the left internal carotid artery. The left internal carotid artery is very tortuous. There is intimal thickening but no significant atherosclerotic plaque noted in the left external carotid artery. Antegrade flow is noted in the left vertebral artery. There is heterogeneous, irregular atherosclerotic plaque noted in the left bulb. Procedure Carotid Duplex [id number]. This is a Carotid Duplex examination using B-mode, color flow and specral Doppler. Exam performed in department. VL/Carotid Duplex Ultrasound Interpretation Summary Intimal thickening right internal carotid artery with less than 50% stenosis Less than 50% stenosis right external carotid artery Intimal thickening of the left internal carotid artery with less than 50% steno sis and tortuosity noted. Less than 50% stenosis left external carotid artery Patent antegrade vertebral arteries bilaterally Elevated velocities regarding the left internal carotid artery on the previous examination of September 25, 2022 are not duplicated on today's examination. No current evidence of hemo dynamically significant disease Ordering Physician: Murray Jimenes Referring Physician: Emmy Jara Performed By: Brielle George RVT
== END | disposition home or self-care (01) ==
LOC: CVS 09:58
PROVIDERS: PCP Nurse Practitioner Family; Referring Provider Psychiatry & Neurology Neurology; Visit Provider Psychiatry & Neurology Neurology
DX: I65.22 Occlusion and stenosis of left carotid artery (principal)
CPT/HCPCS: 93880

== ENCOUNTER 2024-01-09 11:18 | Emergency (ER) | payer MEDICARE, OTHER, SELFPAY ==
[2024-01-09 11:21] VITALS: BP 190/70; PULSE 64; RESP 16; TEMP 36.8; O2SAT 95; BMI 38.9
[2024-01-09] MEDS: Silver Nitrate (BKC) 1 EACH TOPICAL (11:52)
--- NOTE | 2024-01-09 11:58 | EDS_ITS ---
HPI <MARCO ANTONIO Mckeon - Last Filed: 01/09/24 12:16> History of Present Illness Chief Complaint: Nosebleed Narrative Narrative: Patient is 73-year-old female with history of COPD, obesity, diabetes hypertension who is currently not on any blood thinners presented to the emerged department with a bloody nose to the right nares. Patient denies any injury. Patient dates she woke up this morning, leaned her head forward a bunch of blood came out. She did have some clots that she coughed out. Patient denies any history of these other than the last week. Denies any known injury to the nose. [facility] <MARCO ANTONIO Mckeon - Last Filed: 01/09/24 12:16> [facility] Medical History Acute sinusitis Adrenal adenoma Allergic rhinitis Anxiety Asthma Back pain Bronchitis COPD (chronic obstructive pulmonary disease) Cough Depression Diabetes mellitus, type 2 Eczema Fatigue Hypercalcemia Hypercholesteremia Hypertension Hypoglycemia Hypothyroidism (acquired) Meralgia paresthetica Obesity Obesity Osteopenia Postmenopausal Primary hyperparathyroidism Right hip pain Sarcoidosis Sciatica Sleep apnea in adult Sleep disorder Vitamin D deficiency Wheezing Home Medications ?Medication ?Instructions ?Recorded ?Last Taken ?Type levothyroxine 150 mcg tablet 150 mcg PO DAILY THYROID 12/25/17 04/06/22 History simvastatin 40 mg tablet 40 mg PO DAILY CHOLESTEROL 12/25/17 04/05/22 History albuterol sulfate 90 mcg/actuation 1 inh inhalation Q6H SOB 12/24/21 04/05/22 History aerosol inhaler (ProAir HFA) pantoprazole 40 mg tablet,delayed 40 mg PO DAILY GERD 12/24/21 04/06/22 History release semaglutide 0.25 mg or 0.5 mg (2 0.25 mg subcut MEADE DM 12/24/21 04/05/22 History mg/1.5 mL) subcutaneous pen injector (Ozempic) tiotropium bromide 1.25 2 puff inhalation BID SOB 12/24/21 04/06/22 History mcg/actuation mist for inhalation (Spiriva Respimat) Cognium Memory 1 tab PO/SL BID SUPPLEMENT 04/06/22 04/06/22 History cholecalciferol (vitamin D3) 125 125 mcg PO BID SUPPLEMENT 04/06/22 04/06/22 History mcg (5,000 unit) tablet citalopram 20 mg tablet 20 mg PO DAILY MOOD 04/06/22 04/06/22 History docusate sodium 100 mg capsule 100 mg PO DAILY STOOL SOFTNER 04/06/22 04/06/22 History (Colace) echinacea 500 mg capsule 900 mg PO BID SUPPLEMETN 04/06/22 04/06/22 History -rom-lmx-other [id number] 1 cap PO BID SUPPLEMENT 04/06/22 04/06/22 History oil 350 mg- 400 mg capsule psyllium husk 0.52 gram capsule 0.52 g PO BID SUPPLEMENT 04/06/22 04/06/22 History (Fiber (psyllium husk)) zinc 25 mg tablet 25 mg PO BID SUPPLEMENT 04/06/22 04/06/22 History irbesartan 150 mg tablet 150 mg PO BID HEART #30 tabs 04/08/22 04/06/22 Rx loratadine 5 mg-pseudoephedrine ER 1 tab PO Q12H 04/22/22 Unknown History 120 mg tablet,extended release,12hr (Claritin-D 12 Hour) prednisone 20 mg tablet tablet PO 04/22/22 Unknown History vitamins A,C,Z-ydqa-hzalyb 4,296 1 cap PO 04/22/22 Unknown History mcg-226 mg-90 mg capsule (PreserVision AREDS) ibandronate 150 mg tablet 150 mg PO QMONTH #3 tabs 05/07/22 Unknown Rx aspirin 81 mg chewable tablet 81 mg PO DAILY 09/17/22 Unknown History cyclobenzaprine 5 mg tablet 5 mg PO BID PRN 09/17/22 Unknown History elderberry fruit 200 mg capsule 1,250 mg PO DAILY SUPPLEMENT 09/17/22 Unknown History famotidine 20 mg tablet 20 mg PO BID PRN 09/17/22 Unknown History glipizide 10 mg tablet, extended 10 mg PO BID 09/17/22 Unknown History release 24 hr metoprolol succinate 100 mg 100 mg PO DAILY HEART 09/17/22 Unknown History tablet,extended release 24 hr ondansetron 4 mg disintegrating 4 mg PO Q6H 09/17/22 Unknown History tablet Allergy/AdvReac Type Severity Reaction Status Date / Time metformin Allergy Severe Hives Verified 01/09/24 11:21 Penicillins Allergy Severe Anaphylaxis Verified 01/09/24 11:21 doxycycline Allergy Intermediate Hives Verified 01/09/24 11:21 meperidine (From Demerol) Allergy Intermediate Hives Verified 01/09/24 11:21 amoxicillin Allergy Anaphylaxis Verified 01/09/24 11:21 erythromycin base Allergy Unknown Verified 01/09/24 11:21 Sulfa (Sulfonamide Allergy Unknown Verified 01/09/24 11:21 Antibiotics) Macrolide Antibiotics AdvReac Rash Verified 01/09/24 11:21 Family History Mother Diabetes Hypertension Father Hypertension Other Anesthesia complication Anxiety Arthritis Depression High cholesterol Osteoporosis Thyroid disorder Surgical History History of hysterectomy History of laparoscopic cholecystectomy History of lung surgery Social History Smoking Status: Former smoker second hand exposure: No alcohol intake: never substance use type: does not use what type of physical activity do you participate in: walking and other details: WATER AEROBICS manjinder/yazdanism: Yazidi seatbelt use: always ROS <CHANA MckeonC - Last Filed: 01/09/24 12:16> ROS ED ROS Narrative Constitutional: Negative for fever, chills, weight loss, weakness Eyes: Negative for vision loss, vision change, double vision ENT: Negative for any sore throat, ear pain, congestion. Positive for nosebleed Cardiovascular: Negative for any chest pain, tightness, palpitations Respiratory: Negative for any cough, sputum production, hemoptysis, dyspnea, dyspnea on exertion, orthopnea Gastrointestinal: Negative for any abdominal pain, nausea, vomiting, diarrhea, constipation, blood in stool, blood in vomit : Negative for any urinary frequency, dysuria, retention, blood in urine Muscle skeletal: Negative for any neck pain, back pain Neurological: Negative for any headache, syncope, dizziness Skin: Negative for any rashes, itching, abrasions, lacerations Psychiatric: Negative for any depression, anxiety, stress, suicidal ideation, homicidal ideation Hematologic: Negative for any excessive bruising, easy bleeding EXAM <CHANA MckeonC - Last Filed: 01/09/24 12:16> Physical Exam Narrative Exam Narrative: Vital signs reviewed. HEET: Head normocephalic atraumatic, TMs clear bilaterally. Posterior pharynx is clear, moist mucous membranes. Nares clear bilaterally. Patient does have light-colored bleeding which appears to be more anterior midline to the right nare. When the patient did blow her nose, there was minimal blood. Neck: Supple with no lymphadenopathy or tenderness. No signs of meningismus. Cardiac: Regular rate and rhythm no murmurs gallops or rubs, equal peripheral pulses bilaterally. Respiratory: Lungs clear to auscultation bilaterally. No chest tenderness. Const Vital Signs: 01/09/24 11:21 01/09/24 12:19 Temperature 98.2 F 97.8 F Temperature Source Oral Pulse Rate 64 78 Respiratory Rate 16 18 Blood Pressure 190/70 H 190/70 H Blood Pressure Mean 110 110 Pulse Ox 95 98 Oxygen Delivery Method Room Air Positive well nourished and well developed General Appearance ED: well developed <Salvador Shah MD - Last Filed: 01/09/24 12:40> Physical Exam Const Vital Signs: 01/09/24 11:21 01/09/24 12:19 Temperature 98.2 F 97.8 F Temperature Source Oral Pulse Rate 64 78 Respiratory Rate 16 18 Blood Pressure 190/70 H 190/70 H Blood Pressure Mean 110 110 Pulse Ox 95 98 Oxygen Delivery Method Room Air MDM <MARCO ANTONIO Mckeon - Last Filed: 01/09/24 12:16> MDM Treatment and Re-Evaluation :: .Differential diagnosis includes however is not limited to: Anterior nosebleed, posterior nosebleed, septal hematoma, nose injury Patient appears to be in no obvious distress, vital signs are stable. Presenting to the emergency department with complaints of epistaxis to the right nare is been ongoing for the last 2 hours. During my evaluation, did appear to be more anterior and midline. I was able to have the patient blow her nose, did use a silver nitrate stick to see if it was still bleeding. Patient tolerated well. Will wait 5 to 10 minutes to see if the bleeding ceases. Patient will be reevaluated. On reevaluation, the patient was no longer bleeding. Patient did have some sneezing however there is again there is no bleeding. Patient was ambulated moved her head up and down, no bleeding. At this time, I do believe the patient is stable for discharge. I do believe this was a superficial anterior bleed, no evidence suspect any posterior bleeding or septal hematoma. Patient is happy the plan of care, stable for discharge. <Salvador Shah MD - Last Filed: 01/09/24 12:40> [facility] Narrative Medical decision making narrative: Dr. Shah: I have personally performed a face to face assessment of the patient and have reviewed the CESARIO Note. I performed a substantive portion of the visit including all aspects of the following. My hernández findings include: History is bleeding from right nares last week. This morning, awoke with bleeding from right nares. Exam is afebrile. Vital signs noted. Area on right septum of previous bleeding. No clots in nares. Medical Decision Making: Nurse present Titian are performed cauterization with silver nitrate prior to my examination. Currently there is no evidence of active bleeding. No clots within right nares. Airway patent. Follow-up with otolaryngology. Discharge. Other additions or changes: [None] Discharge Plan Triage Chief Complaint: Nosebleed ED Midlevel Provider: Isauro Pena ED Provider: Salvador Shah Dx/Rx/DC Orders Clinical Impression: Anterior epistaxis Instructions: ED Epistaxis (Adult) Prescriptions: No Action prednisone 20 mg tablet PO Claritin-D 12 Hour 5-120 mg tablet extended release 12 hr 1 tab PO Q12H PreserVision AREDS [id number] capsule 1 cap PO Patient Comments: 1 capsule by mouth twice a day ibandronate 150 mg tablet 150 mg PO QMONTH Qty: 3 3RF famotidine 20 mg tablet 20 mg PO BID PRN glipizide 10 mg tablet extended release 24hr 10 mg PO BID Patient Comments: TAKE 1 TABLET BY MOUTH TWICE DAILY cyclobenzaprine 5 mg tablet 5 mg PO BID PRN ondansetron 4 mg tablet,disintegrating 4 mg PO Q6H aspirin 81 mg tablet,chewable 81 mg PO DAILY levothyroxine 150 MCG tablet 150 mcg PO DAILY simvastatin 40 tablet 40 mg PO DAILY Patient Comments: metoprolol succinate 100 mg tablet extended release 24 hr 100 mg PO DAILY Rx Instructions: Take 100mg in AM Take 50mg at HS pantoprazole 40 mg Tablet,Delayed Release (Dr/Ec) 40 mg PO DAILY albuterol sulfate [ProAir HFA] 90 mcg/actuation Hfa Aerosol Inhaler 1 inh INHALATION Q6H Spiriva Respimat 1.25 mcg/actuation Mist 2 puff INHALATION BID Ozempic 0.25 mg or 0.5 mg(2 mg/1.5 mL) Pen Injector 0.25 mg SUBCUT MEADE Rx Instructions: for 4 doses citalopram 20 mg tablet 20 mg PO DAILY Patient Comments: Take 1 tablet by mouth daily as directed echinacea 500 mg Capsule 900 mg PO BID Rx Instructions: administer with meals zinc 25 mg Tablet 25 mg PO BID psyllium husk [Fiber (psyllium husk)] 0.52 gram Capsule 0.52 g PO BID cholecalciferol (vitamin D3) 125 mcg (5,000 unit) Tablet 125 mcg PO BID [id number]-fish oil 350-400 mg Capsule 1 cap PO BID Cognium Memory 1 tab PO/SL BID docusate sodium [Colace] 100 mg capsule 100 mg PO DAILY irbesartan 150 mg tablet 150 mg PO BID Qty: 30 0RF Patient Comments: TAKE 1 TABLET BY MOUTH TWICE DAILY Rx Instructions: Hold for blood pressure <110/60 elderberry fruit 200 mg capsule 1,250 mg PO DAILY Primary Care Provider: Emmy Jara Referrals: Emmy Jara, KANNAN-C [Primary Care Provider] - Activity Restrictions/Additional Instructions: Please try to avoid blowing your nose, sticking anything in your nose over the next 24 to 48 hours. Return here for any worsening bleeding. Print Language: Turkish Disposition Disposition: Home, Self Care Discharge Date/Time: 01/09/24 12:25
[2024-01-09 12:19] VITALS: BP 190/70; PULSE 78; RESP 18; TEMP 36.6; O2SAT 98
== END 2024-01-09 12:25 | disposition home or self-care (01) ==
PROVIDERS: Emergency Provider Emergency Medicine; PCP Nurse Practitioner Family; Visit Provider Emergency Medicine
DX: R04.0 Epistaxis (principal); J44.9 Chronic obstructive pulmonary disease, unspecified; E11.9 Type 2 diabetes mellitus without complications; Z87.891 Personal history of nicotine dependence
CPT/HCPCS: 30901; 99282

== ENCOUNTER → 2024-06-02 | Outpatient (CLI) | payer MEDICARE, OTHER, SELFPAY ==
--- NOTE | 2024-06-02 12:56 | BD_ITS ---
STUDY: DUAL ENERGY X-RAY ABSORPTIOMETRY / DXA REASON FOR EXAM: Female, 73 years old. 733.00OsteoporosisBONE DENSITY REASON FOR EXAM TECHNIQUE: Bone Mineral Density (BMD) measurements of lumbar spine and bilateral hips were obtained. COMPARISON: Comparison is made with prior study January 22, 2022. FINDINGS: Lumbar Spine (L1-L4): g/cm2 (0.880) / T-score (-1.5) / Z-score (0.7) Findings are suggestive of osteopenia with a low fracture risk. Left Femur Total: g/cm2 (0.900) / T-score (-0.3) / Z-score (1.3) Left Femoral Neck: g/cm2 (0.579) / T-score (-2.4) / Z-score (-0.5) Right Femur Total: g/cm2 (0.909) / T-score (-0.3) / Z-score (1.3) Right Femoral Neck: g/cm2 (0.600) / T-score (-2.2) / Z-score (-0.4) The T-Scores on the most recent prior examination were: Lumbar Spine (L1-L4): There has been improvement of bone density since the previous examination. Left Femur Total: which represents a worsening of 5.7%. Right Femur Total: which represents a worsening of 5.8%. BD/Dexa Bone Density Study IMPRESSION: The patient is considered osteopenic as outlined below according to World Arun Organization (WHO) criteria with a high fracture risk. There has been worsening of bone density since the previous examination. Reference Information: The T-score is the number of standard deviations above or below the standard which is normal for young adults at their peak bone mineral density. The World Health Organization (WHO) interprets the T-scores as follows: Above -1 Normal bone density Between -1 and -2.5 Osteopenia Equal to / or below -2.5 Osteoporosis As a practical clinical guideline, osteopenia may be graded as follows: Mild -1 through -1.5 Moderate -1.6 through -2.0 Severe -2.1 through -2.4 The Z-score is the number of standard deviations above or below age-matched controls. A Z-score of less than -1.5 would be considered abnormal. References: 1. NIH Osteoporosis and Related Bone Diseases www osteo.org 2. International Society for Clinical Densitometry www iscd.org 3. National Osteoporosis Foundation www nof.org Electronically Signed: Leobardo Mckenzie MD at 15:06 EST ,
--- NOTE | 2024-06-02 12:56 | BI_ITS ---
MAMMOGRAPHY - BILATERAL SCREENING REASON FOR EXAM: Female, 73 years old. Routine annual screening examination. PERTINENT HISTORY: Non-contributory. TECHNIQUE: Digital bilateral breast reena (3D mammographic acquisition) in the CC and MLO projections. 2-D mediolateral oblique (MLO) and craniocaudad (CC) views of both breasts were obtained. CAD: Full Field Digital Mammography with Computer Added Detection was performed. COMPARISON: Comparison is made with prior study April 23, 2023 and April 18, 2021. FINDINGS: Breast Composition: There are scattered areas of fibroglandular density. There are no dominant masses or suspicious calcifications. Stable small fat containing bilateral axillary lymph nodes. No other significant abnormalities are identified. There has been no significant change since the prior study. BI/SCRN MAMM (CAD)W/REENA BILAT IMPRESSION: Stable bilateral screening mammogram. Yearly follow-up mammogram recommended. (A) ASSESSMENT CATEGORY: BIRADS Category 2: Benign. A letter regarding these results will be sent to the patient by the facility within 30 days. Approximately 10% of breast cancers are not detected by mammography. A normal mammogram should not delay biopsy of a clinically suspicious abnormality. [id number] Electronically Signed: Leobardo Mckenzie MD at 14:24 EST ,
== END | disposition home or self-care (01) ==
LOC: OPBD 12:53
PROVIDERS: PCP Nurse Practitioner Family; Referring Provider Nurse Practitioner Family; Visit Provider Nurse Practitioner Family
DX: Z12.31 Encounter for screening mammogram for malignant neoplasm of breast (principal); Z78.0 Asymptomatic menopausal state
CPT/HCPCS: 77063; 77067; 77080

== ENCOUNTER → 2024-08-18 | Outpatient (CLI) | payer MEDICARE, OTHER, SELFPAY | END | disposition home or self-care (01) | PROVIDERS: PCP Nurse Practitioner Family; Referring Provider Nurse Practitioner Acute Care; Visit Provider Nurse Practitioner Acute Care | DX: G47.33 Obstructive sleep apnea (adult) (pediatric) (principal) | CPT/HCPCS: 95811 ==

== ENCOUNTER → 2024-09-08 | Outpatient (CLI) | payer MEDICARE, OTHER, SELFPAY | END | disposition home or self-care (01) | LOC: PSN 12:49 | PROVIDERS: PCP Nurse Practitioner Family; Referring Provider Nurse Practitioner Acute Care; Visit Provider Nurse Practitioner Acute Care | DX: R06.2 Wheezing (principal) | CPT/HCPCS: 94060; 94726; 94729 ==

== ENCOUNTER → 2024-10-30 | Outpatient (CLI) | payer MEDICARE, OTHER, SELFPAY ==
[2024-10-30 12:51] VITALS: PULSE 75; PULSE 76; PULSE 84; PULSE 89; PULSE 90; PULSE 92; PULSE 93; O2SAT 92; O2SAT 93; O2SAT 94; O2SAT 96; O2SAT 97
--- NOTE | 2024-11-03 12:09 | PCM.PSN.6M ---
PSN 6 Minute Walk Test 6 Minute Walk Test 6 Minute Walk Test: 6 Minute Walk Test PSN:6-Minute Walk Test Start: 10/30/24 12:51 Freq: Status: Discharge Protocol: [id number] Document 10/30/24 12:51 [facility] (Rec: 10/30/24 12:56 [facility] [id number]) 6 Minute Walk Test Date Performed 10/30/24 Time Performed 12:30 Height 5 ft 6 in Weight: 234 lb Weight in Pounds 234.[address]: Sonam Self [employer] Assistive device None used: Pre-test Oxygen Delivery Room Air Method Pulse Ox (%) 97 Pulse Rate (60-100 76 beats/min) Dyspnea Subha Scale ( 2 0-10) Exertion Subha Scale 6 (6-20) 1st minute Oxygen Delivery Room Air Method Pulse Ox (%) 94 Pulse Rate (60-100 84 beats/min) Dyspnea Subha Scale ( 3 0-10) Number of Rests 0 Taken Reported Symptoms Increased Work of Breathing 2nd minute Oxygen Delivery Room Air Method Pulse Ox (%) 93 Pulse Rate (60-100 90 beats/min) Dyspnea Subha Scale ( 3 0-10) Number of Rests 0 Taken Reported Symptoms Increased Work of Breathing 3rd minute Oxygen Delivery Room Air Method Pulse Ox (%) 92 Pulse Rate (60-100 89 beats/min) Dyspnea Subha Scale ( 3 0-10) Number of Rests 0 Taken Reported Symptoms Increased Work of Breathing 4th minute Oxygen Delivery Room Air Method Pulse Ox (%) 92 Pulse Rate (60-100 93 beats/min) Dyspnea Subha Scale ( 3 0-10) Number of Rests 0 Taken Reported Symptoms Increased Work of Breathing 5th minute Oxygen Delivery Room Air Method Pulse Ox (%) 93 Pulse Rate (60-100 92 beats/min) Dyspnea Subha Scale ( 3 0-10) Number of Rests 0 Taken Reported Symptoms Increased Work of Breathing 6th minute Oxygen Delivery Room Air Method Pulse Ox (%) 92 Pulse Rate (60-100 93 beats/min) Dyspnea Subha Scale ( 3 0-10) Exertion Subha Scale 7 (6-20) Number of Rests 0 Taken Reported Symptoms Increased Work of Breathing Post-test Oxygen Delivery Room Air Method Pulse Ox (%) 96 Pulse Rate (60-100 75 beats/min) Dyspnea Subha Scale ( 2 0-10) Exertion Subha Scale 6 (6-20) Full Laps Walked 17 Partial Lap, Number 37 of Tiles Walked Total Distance 1040 Walked (ft) Interpretation Interpretation: The patient ambulated 1040 feet over the course of 6 minutes beginning on room air without assistive devices. Pretesting oxygen saturation was noted to be 97% on room air. With ambulation, the ramona oxygen saturation was 92%. This represents a significant exertional oxygen desaturation, consistent with a pulmonary limitation to exercise tolerance. Recommendations Recommendations: There is no indication for the use of supplemental oxygen at this time. However, close interval follow-up is recommended, given the degree of oxygen desaturation noted during this study.
== END | disposition home or self-care (01) ==
LOC: PSN 12:23
PROVIDERS: PCP Nurse Practitioner Family; Referring Provider Nurse Practitioner Acute Care; Visit Provider Nurse Practitioner Acute Care
DX: R06.2 Wheezing (principal)
CPT/HCPCS: 94618

== ENCOUNTER 2024-12-24 17:20 | Emergency (ER) | payer MEDICARE, OTHER, SELFPAY ==
[2024-12-24 17:21] VITALS: BP 160/74; PULSE 71; RESP 16; TEMP 37.1; O2SAT 97; BMI 38.8
--- NOTE | 2024-12-24 17:51 | CT_ITS ---
PROCEDURE: BRAIN/HEAD WITHOUT CONTRAST 12/24/2024 REASON FOR EXAM: PAIN TECHNIQUE: BRAIN/HEAD WITHOUT CONTRAST Coronal and Sagittal reconstruction series were provided. One or more dose reduction techniques were used (e.g., Automated exposure control, adjustment of the mA and/or kV according to patient size, use of iterative reconstruction technique. COMPARISON: MRI 04/06/2022 FINDINGS: Normal brainstem. Normal cerebellum. No hydrocephalus. No intracranial mass or hemorrhage. Mild periventricular white matter hypodensity suggesting small-vessel ischemic change. Bony calvarium intact. CT/Brain/Head without Contrast IMPRESSION: No acute abnormality. Reading [facility]
--- NOTE | 2024-12-24 17:53 | EX.ED.VIS.HA ---
HPI History of Present Illness Chief Complaint: Headache Informant: patient Onset/Context/Timing Onset: Days Context: Sudden Timing: Intermittent Quality -Headache: Positive for Sharp (Sparking) Location: Bilateral parietal occipital areas Worsened by: Nothing Relieved by: Nothing Associated Symptoms/Injury Associated Symptoms: Positive for Nausea, Numbness (Left facial area), Visual Changes and Blurred Vision; Negative for Fever, Vomiting, Sore Throat, Sinus Pressure, Tingling, Photophobia or - (There are spots of scotoma in her vision) Injury - MARTINO: Negative for Direct Trauma or Fall Narrative Narrative: Patient presents with a headache that has been intermittent over the last 4 days. Patient describes it as a sparking sensation. Patient states it is over the left occipital area today. Patient states that earlier it was over the right occipital area. Patient states nothing makes it worse and nothing makes it better. Patient admits to some nausea but denies any vomiting. Patient states the pain radiates to the left side of her face. Patient admits to some numbness over the left side of her face. Patient also admits to some scotoma in her vision. Patient denies any photophobia. Patient admits to some blurry vision. [facility] Medical History Hypothyroidism (acquired) Primary hyperparathyroidism Diabetes mellitus, type 2 Acute sinusitis Bronchitis Eczema Cough Wheezing Adrenal adenoma Hypoglycemia Vitamin D deficiency Hypercholesteremia Hypercalcemia Depression Anxiety Sleep disorder Meralgia paresthetica Hypertension Allergic rhinitis Asthma Right hip pain Sciatica Back pain Osteopenia Fatigue Postmenopausal Home Medications ?Medication ?Instructions ?Recorded ?Last Taken ?Type levothyroxine 150 mcg tablet 150 mcg PO DAILY THYROID 12/25/17 04/06/22 History simvastatin 40 mg tablet 40 mg PO DAILY CHOLESTEROL 12/25/17 04/05/22 History pantoprazole 40 mg tablet,delayed 40 mg PO DAILY GERD 12/24/21 04/06/22 History release tiotropium bromide 1.25 2 puff inhalation BID SOB 12/24/21 04/06/22 History mcg/actuation mist for inhalation (Spiriva Respimat) Cognium Memory 1 tab PO/SL BID SUPPLEMENT 04/06/22 04/06/22 History cholecalciferol (vitamin D3) 125 125 mcg PO BID SUPPLEMENT 04/06/22 04/06/22 History mcg (5,000 unit) tablet citalopram 20 mg tablet 20 mg PO DAILY MOOD 04/06/22 04/06/22 History docusate sodium 100 mg capsule 100 mg PO DAILY STOOL SOFTNER 04/06/22 04/06/22 History (Colace) echinacea 500 mg capsule 900 mg PO BID SUPPLEMETN 04/06/22 04/06/22 History cerkd4-rtp-dks-other tacek3s-[id number] 1 cap PO BID SUPPLEMENT 04/06/22 04/06/22 History oil 350 mg-400 mg capsule psyllium husk 0.52 gram capsule 0.52 g PO BID SUPPLEMENT 04/06/22 04/06/22 History (Fiber (psyllium husk)) zinc 25 mg tablet 25 mg PO BID SUPPLEMENT 04/06/22 04/06/22 History irbesartan 150 mg tablet 150 mg PO BID HEART #30 tabs 04/08/22 04/06/22 Rx vitamins A,C,Q-yiaa-ywdidt 4,296 1 cap PO 04/22/22 Unknown History mcg-226 mg-90 mg capsule (PreserVision AREDS) aspirin 81 mg chewable tablet 81 mg PO DAILY 09/17/22 Unknown History elderberry fruit 200 mg capsule 1,250 mg PO DAILY SUPPLEMENT 09/17/22 Unknown History famotidine 20 mg tablet 20 mg PO BID PRN 09/17/22 Unknown History metoprolol succinate 100 mg 100 mg PO DAILY HEART 09/17/22 Unknown History tablet,extended release 24 hr glipizide 5 mg tablet, extended 5 mg PO QDAY 08/08/24 Unknown History release 24 hr ipratropium 0.5 mg-albuterol 3 mg 3 ml inhalation Q6H PRN 08/08/24 Unknown History (2.5 mg base)/3 mL nebulization soln semaglutide 1 mg/dose (4 mg/3 mL) 1 mg subcut QWEEK 08/08/24 Unknown History subcutaneous pen injector (Ozempic) albuterol sulfate 90 mcg/actuation 1 inh inhalation Q6H SOB #8.5 grams 11/21/24 Unknown Rx aerosol inhaler (ProAir HFA) metoprolol succinate 50 mg 50 mg PO QDAY 11/21/24 Unknown History tablet,extended release 24 hr triamcinolone acetonide 0.1 % applic topical BID 11/21/24 Unknown History topical cream hydrocodone-acetaminophen 5-325mg 1 tab PO Q6H PRN PRN Pain 3 days 12/24/24 Unknown Rx 5mg-325mg #10 TABLETS Allergy/AdvReac Type Severity Reaction Status Date / Time metformin Allergy Severe Hives Verified 12/24/24 17:22 Penicillins Allergy Severe Anaphylaxis Verified 12/24/24 17:22 doxycycline Allergy Intermediate Hives Verified 12/24/24 17:22 meperidine (From Demerol) Allergy Intermediate Hives Verified 12/24/24 17:22 amoxicillin Allergy Anaphylaxis Verified 12/24/24 17:22 erythromycin base Allergy Unknown Verified 12/24/24 17:22 Sulfa (Sulfonamide Allergy Unknown Verified 12/24/24 17:22 Antibiotics) Macrolide Antibiotics AdvReac Rash Verified 12/24/24 17:22 Family History Mother Diabetes Hypertension Father Hypertension Other Anesthesia complication Anxiety Arthritis Depression High cholesterol Osteoporosis Thyroid disorder Surgical History History of hysterectomy History of lung surgery History of laparoscopic cholecystectomy Social History Smoking Status: Former smoker second hand exposure: No alcohol intake: never substance use type: does not use what type of physical activity do you participate in: walking and other details: WATER AEROBICS manjinder/uatsdin: Jainism seatbelt use: always ROS ROS ED Constitutional Constitutional ED: Denies chills or fever(s) Eyes Eyes: Denies blurry vision or change in vision ENT ENT ED: Denies rhinorrhea or sore throat Cardiovascular Cardiovascular: Denies chest pain or palpitations Respiratory/Chest Respiratory/Chest: Reports dyspnea; Denies cough Gastrointestinal Gastrointestinal: Reports nausea; Denies vomiting Genitourinary Genitourinary ED: Denies dysuria or hematuria Musculoskeletal Musculoskeletal: Reports back pain and neck pain Integumentary Denies abscess or rash Neurologic Neurologic: Reports headache(s); Denies weakness Allergic/Immunologic Allergic/Immunologic ED: Denies mouth swelling or urticaria EXAM Physical Exam Const Vital Signs: 12/24/24 17:21 12/24/24 19:20 12/24/24 19:48 Temperature 98.7 F 98.2 F Temperature Source Oral Pulse Rate 71 66 62 Respiratory Rate 16 18 18 Blood Pressure 160/74 H 165/67 H 155/70 H Blood Pressure Mean 102 99 98 Pulse Ox 97 99 99 Oxygen Delivery Method Room Air Room Air Positive well nourished and well developed General Appearance ED: well developed and NAD HEENT Reports normocephalic and moist mucous membranes atraumatic and temporal artery tenderness left (Mild) Neck supple, no meningeal signs and no JVD Resp normal respiratory effort and clear to auscultation bilaterally Cardio regular rate and regular rhythm GI non-tender and non-distended Palpation: soft Extremity normal to inspection and full ROM Neuro oriented x3, CN's II-XII intact bilaterally and no sensory deficits noted [place] Coma Scale: document GCS findings Spontaneous Obeys Commands Oriented 15 Sensorium / Orientation: awake and alert Speech: speech normal Motor Exam: strength 5/5 throughout Psych mental status grossly normal MDM MDM MDM Narrative Medical decision making narrative: Differential diagnosis includes migraine headache, tension headache, intracranial bleeding, trigeminal neuralgia, temporal arteritis, and sinusitis. CT scan of the brain will be obtained to assess for intracranial bleeding and sinusitis. CBC will be obtained to assess for leukocytosis and anemia. Basic metabolic profile will be obtained to assess for electrolyte abnormality and renal function. PT with INR and PTT will be obtained to assess for coagulopathy. Sed rate will be obtained to assess for temporal arteritis. History & Record Review Additional record(s) reviewed:: Prior ED visit Lab Data Attestation: I reviewed the patient's lab results. Lab results narrative: CBC was reviewed and was essentially within normal limits. Sed rate was reviewed and was normal at 18. PT with INR and PTT were reviewed and were within normal limits. Basic metabolic profile was reviewed and was essentially within normal limits. Labs: Laboratory Results - last 24 hr 12/24/24 17:34 WBC 5.4 RBC 4.13 L Hgb 12.2 Hct 36.2 L MCV 87.7 MCH 29.5 MCHC 33.7 RDW Std Deviation 43.8 RDW Coeff of Valery 13.6 Plt Count 249 MPV 10.9 Immature Gran % (Auto) 0.200 Neut % (Auto) 56.2 Lymph % (Auto) 23.7 [place] % (Auto) 11.6 H Eos % (Auto) 7.0 H Baso % (Auto) 1.3 H Absolute Neuts (auto) 3.1 Absolute Lymphs (auto) 1.29 Nucleated RBC % 0 ESR 18 PT 13.3 INR 1.0 APTT 28.1 Sodium 138 Potassium 3.9 Chloride 103 Carbon Dioxide 25.2 Anion Gap 11 BUN 12 Creatinine 0.67 L Estim Creat Clear Calc 79.51 Est GFR (MDRD) Non-Af 93 BUN/Creatinine Ratio 17.3 Glucose 103 H Calcium 10.8 Radiography Diagnostic Testing: Clinical Impression(s) from Imaging Studies Brain CT 12/24/24 17:51 IMPRESSION: No acute abnormality. Reading Location: [facility] CT scan of the brain was obtained. There is no acute intracranial abnormality. This was interpreted by the radiologist and was also independently reviewed by myself. Treatment and Re-Evaluation Narrative: Patient was given IV fluids, Reglan, and Benadryl. Patient is feeling better on reevaluation. Patient was advised of her findings. Patient was advised that this could be a migraine headache or occipital neuralgia. Patient was instructed to follow-up with her primary care physician in 5 to 7 days. Patient was advised she may need to see a neurologist for further evaluation. Patient was instructed to return if worse in any way. Patient understood and was agreeable with the plan. All questions were answered. Discharge Plan Triage Chief Complaint: Headache ED Provider: Ivan Hutchinson Dx/Rx/DC Orders Clinical Impression: Headache, Hypertension, Diabetes mellitus, type 2 Instructions: ED Headache Unspecified Prescriptions: New hydrocodone-acetaminophen 5-325 mg tablet 1 tab PO Q6H PRN PRN (Reason: Pain) 3 Days Qty: 10 0RF No Action PreserVision AREDS [id number] capsule 1 cap PO Patient Comments: 1 capsule by mouth twice a day famotidine 20 mg tablet 20 mg PO BID PRN aspirin 81 mg tablet,chewable 81 mg PO DAILY ipratropium-albuterol 0.5 mg-3 mg(2.5 mg base)/3 mL solution for nebulization 3 ml inhalation Q6H PRN Ozempic 1 mg/dose (4 mg/3 mL) pen injector 1 mg subcut QWEEK glipizide 5 mg tablet extended release 24hr 5 mg PO QDAY metoprolol succinate 50 mg tablet extended release 24 hr 50 mg PO QDAY triamcinolone acetonide 0.1 % cream topical BID albuterol sulfate [ProAir HFA] 90 mcg/actuation HFA aerosol inhaler 1 inh INHALATION Q6H Qty: 8.5 11RF levothyroxine 150 MCG tablet 150 mcg PO DAILY simvastatin 40 tablet 40 mg PO DAILY Patient Comments: metoprolol succinate 100 mg tablet extended release 24 hr 100 mg PO DAILY Rx Instructions: Take 100mg in AM Take 50mg at HS pantoprazole 40 mg Tablet,Delayed Release (Dr/Ec) 40 mg PO DAILY Spiriva Respimat 1.25 mcg/actuation Mist 2 puff INHALATION BID citalopram 20 mg tablet 20 mg PO DAILY Patient Comments: Take 1 tablet by mouth daily as directed echinacea 500 mg Capsule 900 mg PO BID Rx Instructions: administer with meals zinc 25 mg Tablet 25 mg PO BID psyllium husk [Fiber (psyllium husk)] 0.52 gram Capsule 0.52 g PO BID cholecalciferol (vitamin D3) 125 mcg (5,000 unit) Tablet 125 mcg PO BID [id number]-fish oil 350-400 mg Capsule 1 cap PO BID Cognium Memory 1 tab PO/SL BID docusate sodium [Colace] 100 mg capsule 100 mg PO DAILY irbesartan 150 mg tablet 150 mg PO BID Qty: 30 0RF Patient Comments: TAKE 1 TABLET BY MOUTH TWICE DAILY Rx Instructions: Hold for blood pressure <110/60 elderberry fruit 200 mg capsule 1,250 mg PO DAILY Primary Care Provider: Emmy Jara Referrals: Emmy Jara NP-C [Primary Care Provider] - 3-5 Days Print Language: Norwegian Disposition Disposition: Home, Self Care Discharge Date/Time: 12/24/24 19:50
[2024-12-24] MEDS: DiphenhydrAMINE 50 MG/ML Syringe 25 MG IV (18:09)
[2024-12-24] MEDS: 0.9% Normal Saline (1000mL) 1,000 ML 999 ML IV (18:09)
[2024-12-24] MEDS: Metoclopramide 10 MG/2 ML Vial IV (18:09)
[2024-12-24 18:10] LABS: Erythrocyte Sedimentation Rate 18 mm/hr (0-30)
[2024-12-24 18:12] LABS: Absolute Lymphocyte Count 1.29 X10^3/uL (0.83-4.51); Absolute Neutrophil Count 3.1 X10^3/uL (2.0-7.7); Basophil# 0.07 X10^3/uL; Basophil% 1.3 % (0-1); Eosinophil# 0.38 X10^3/uL; Hematocrit 36.2 % (37-47); Hemoglobin 12.2 g/dL (12.0-15.0); Lymphocyte # 1.29 X10^3/ul (0.83-4.51); Lymphocyte % 23.7 % (19-41); Mean Corp Hgb Conc 33.7 g/dL (32-36); Mean Corpuscular Hgb 29.5 pg (27.0-32.0); Mean Corpuscular Volume 87.7 fL (81-99); Mean Platelet Vol. 10.9 fl (6.2-12.0); Monocyte# 0.63 X10^3/uL; Monocyte% 11.6 % (0-10); NRBC Flagged by Analyzer 0 % (0-5); Neutrophil # 3.06 X10^3/uL (2.7-7.7); Neutrophil % 56.2 % (47-70); Platelet Count 249 K/mm3 (150-450); RBC Distribution Width CV 13.6 % (11.6-14.6); RBC Distribution Width SD 43.8 fl (35.1-43.9); Red Blood Count 4.13 M/mm3 (4.2-5.4); White Blood Count 5.4 K/mm3 (4.4-11.0)
[2024-12-24 18:36] LABS: Anion Gap 11 (5-15); BUN 12 mg/dL (4-19); BUN/Creat Ratio 17.3 RATIO (10-20); Calcium,Total 10.8 mg/dL (7.6-11.0); Carbon Dioxide 25.2 mmol/L (21.0-32.0); Chloride 103 mmol/L (98-108); Creatinine, Serum 0.67 mg/dL (0.70-1.20); EST Glomerular Filtration Rate 93 (>60); Estimated Creatinine Clearance 79.51 ml/min (50-250); Glucose 103 mg/dL (70-99); Potassium 3.9 mmol/L (3.3-5.1); Sodium Level 138 mmol/L (133-145)
[2024-12-24 19:05] LABS: Prothrombin Time (Protime)PT. 13.3 SECONDS (11.7-14.9)
[2024-12-24 19:06] LABS: Partial Thromboplast Time 28.1 Seconds (24.1-36.2)
[2024-12-24 19:20] VITALS: BP 165/67; PULSE 66; RESP 18; O2SAT 99
[2024-12-24 19:48] VITALS: BP 155/70; PULSE 62; RESP 18; TEMP 36.8; O2SAT 99
== END 2024-12-24 19:50 | disposition home or self-care (01) ==
PROVIDERS: Emergency Provider Emergency Medicine; PCP Nurse Practitioner Family; Visit Provider Emergency Medicine
DX: R51.9 Headache, unspecified (principal); E11.9 Type 2 diabetes mellitus without complications; R11.0 Nausea; R20.0 Anesthesia of skin; H53.8 Other visual disturbances; I10 Essential (primary) hypertension; E03.9 Hypothyroidism, unspecified; E78.00 Pure hypercholesterolemia, unspecified; F32.A Depression, unspecified; F41.9 Anxiety disorder, unspecified; E55.9 Vitamin D deficiency, unspecified; M85.80 Other specified disorders of bone density and structure, unspecified site; J45.909 Unspecified asthma, uncomplicated; Z79.85 Long-term (current) use of injectable non-insulin antidiabetic drugs; Z79.84 Long term (current) use of oral hypoglycemic drugs; Z79.82 Long term (current) use of aspirin; Z79.51 Long term (current) use of inhaled steroids; Z79.890 Hormone replacement therapy; Z79.899 Other long term (current) drug therapy; Z87.891 Personal history of nicotine dependence
CPT/HCPCS: 70450; 80048; 85025; 85610; 85652; 85730; 96361; 96374; 96375; 99282; A4216

== ENCOUNTER → 2025-05-15 | Outpatient (CLI) | payer MEDICARE, OTHER, SELFPAY ==
[2025-05-15 12:29] LABS: Hematocrit 37.9 % (37-47); Hemoglobin 12.6 g/dL (12.0-15.0); Immature Granulocytes Count 0.010 X10^3/uL (0.0-0.0); Mean Corp Hgb Conc 33.2 g/dL (32-36); Mean Corpuscular Volume 89.8 fL (81-99); Mean Platelet Vol. 10.9 fl (6.2-12.0); NRBC Flagged by Analyzer 0 % (0-5); Platelet Count 285 K/mm3 (150-450); RBC Distribution Width CV 13.1 % (11.6-14.6); RBC Distribution Width SD 42.7 fl (35.1-43.9); Red Blood Count 4.22 M/mm3 (4.2-5.4); White Blood Count 5.3 K/mm3 (4.4-11.0)
[2025-05-15 13:50] LABS: Cholesterol 186 mg/dL (<=200); Low Density Lipoprotein Calc. 98 mg/dL; Triglycerides 260 mg/dL; Very Low Density Lipoprotein 52 mg/dL (5-40); cholesterol:hdl ratio screen 4.18
[2025-05-15 13:57] LABS: AST(SGOT) 17 U/L (<=31); Alanine Aminotransfer ALT/SGPT 14 U/L (<=34); Albumin, Serum 4.1 g/dL (3.4-4.8); Alkaline Phosphatase 140 U/L (35-104); Anion Gap 12 (5-15); BUN 14 mg/dL (4-19); BUN/Creat Ratio 23.2 RATIO (10-20); Calcium,Total 11.0 mg/dL (7.6-11.0); Carbon Dioxide 25.6 mmol/L (21.0-32.0); Chloride 102 mmol/L (98-108); Globulin 2.8 g/dL (2.2-4.2); Glucose 160 mg/dL (70-99); Iron 71 ug/dL (50-170); Potassium 4.2 mmol/L (3.3-5.1)
[2025-05-15 13:58] LABS: Ferritin 87 ng/mL (22-378); Vitamin B12 270 pg/mL (180-914); Vitamin D,25 Hydroxy 59.2 ng/mL (30-100)
== END | disposition home or self-care (01) ==
LOC: BFHLAB 10:14
PROVIDERS: PCP Nurse Practitioner Family; Visit Provider Nurse Practitioner Family
DX: E11.9 Type 2 diabetes mellitus without complications (principal); E03.9 Hypothyroidism, unspecified; I10 Essential (primary) hypertension; E78.5 Hyperlipidemia, unspecified; E55.9 Vitamin D deficiency, unspecified; E53.8 Deficiency of other specified B group vitamins
CPT/HCPCS: 36415; 80053; 80061; 82306; 82607; 82728; 83036; 83540; 84439; 84443; 85025